=== PATIENT | female | born 1985 | race Caucasian/White ===

== ENCOUNTER 2023-10-27 17:24 | Inpatient (IN) | payer MEDICARE, MEDICAID, SELFPAY ==
--- NOTE | ~2023-10-27 | CT_ITS ---
EXAMINATION: CT head/brain wo IV con CLINICAL INFORMATION: Reason for Exam head injury hx of Jennifer Danlos COMPARISON: None. TECHNIQUE: Contiguous axial imaging was performed from the skull base to vertex without intravenous contrast. Sagittal and coronal reformatted images were obtained. This CT examination was performed using dose optimization techniques as appropriate, variously including the following: * Automated exposure control * Adjustment of mA and/or kV according to patient size (this includes techniques or standardized protocols for targeted exams where dose is matched to indication/reason for exam; i.e. extremities or head) Use of iterative reconstruction technique DLP: 531.94 mGy-cm FINDINGS: No acute osseous or soft tissue abnormality. The mastoids are clear. Layering aerosolized secretions in the left sphenoid sinus. There is no evidence of acute intracranial hemorrhage or territorial infarction. No abnormal mass effect or midline shift is seen. Dent to white matter differentiation is well preserved. No extra-axial fluid collections are identified. No hydrocephalus. No significant volume loss. There is no abnormal attenuation within the brain parenchyma. Enlarged perivascular space in the inferior right basal ganglia. CT/CT head/brain wo IV con IMPRESSION: No acute intracranial abnormality including hemorrhage, mass effect, hydrocephalus, or acute territorial edematous infarction.
[2023-10-27 17:54] VITALS: BP 124/85; BP 142/84; PULSE 119; PULSE 68; RESP 18; TEMP 36.1; O2SAT 100; O2SAT 98; BMI 20.5
--- NOTE | 2023-10-27 18:05 | ED.PSYCH ---
HPI - Psych General Chief Complaint: Psychiatric Symptoms Stated Complaint: crisis Source: patient Mode of arrival: EMS Limitations: no limitations History of Present Illness HPI Narrative: 38 yo female with PMH of osteogenesis imperfecta, Sana Danlos, seizures, has been going through an ativan taper to come off for 3 months but ran out last thursday earlier than she should have. At one point she was up to 5mg a day and was tapered down to 1mg QHS but then was taking more than she should have. She has been c/o feeling off, hit her head during seizure per mom has contusion on head. Was seen at [facility] on no CT head done. She feels SI and depression. Mom feels that the atarax and remeron they put her on is not helping and she is acting off and not herself. MD complaint: feels depressed and anxiety Onset (ago): week(s) (1+) Duration: constant History of same: Yes Relieving factors: none Exacerbating factors: other Context: not taking psychiatric medications and other Associated psychiatric symptoms: depression and suicidal ideation Associated symptoms: headache Treatments prior to arrival: none If self harm: admits thoughts of self harm Related Data Home Medications Medication Instructions Recorded Confirmed albuterol sulfate 90 mcg/actuation 2 puff inhalation Q4H PRN wheezing 10/27/23 10/27/23 aerosol inhaler cyclobenzaprine 10 mg tablet 10 mg PO TID 10/27/23 10/27/23 ibuprofen 800 mg tablet 800 mg PO TID PRN Pain 10/27/23 10/27/23 lorazepam 1 mg tablet 1 mg PO DAILY PRN Anxiety 10/27/23 10/27/23 magnesium oxide 500 mg PO DAILY 10/27/23 10/27/23 mirtazapine 15 mg tablet 15 mg PO BEDTIME 10/27/23 10/27/23 oxycodone 30 mg tablet 30 mg PO QID 10/27/23 10/27/23 oxycodone 30 mg tablet,crush 30 mg PO DAILY 10/27/23 10/27/23 resistant,extended release 12 hr (OxyContin) trazodone 100 mg tablet 200 mg PO BEDTIME PRN insomnia 10/27/23 10/27/23 Allergies Allergy/AdvReac Type Severity Reaction Status Date / Time azithromycin Allergy Itching Verified 10/27/23 18:06 nitrofurantoin Allergy Itching Verified 10/27/23 18:06 [From Macrodantin] Review of Systems Review of Systems: Constitutional : No Fever, No Chills ENT/Mouth : No Ear Pain, No Nasal Congestion, No sore throat Eyes: No Eye Pain, No Swelling, No Redness Cardiovascular : No Chest Pain, No SOB Respiratory : No Cough, No Sputum, No Dyspnea Gastrointestinal : No Nausea, No Vomiting, No Diarrhea, No Hematochezia, No Melena Genitourinary : No Dysuria, No Urinary Frequency, No Hematuria Musculoskeletal : No Myalgias Skin : No Skin Lesions, No rash Neuro : No Weakness, No Numbness, No Paresthesias, No Dizziness, No Headache Psych : positive Anxiety, positive Depression, positive SI no HI Heme/Lymph: No Lymphadenopathy Endocrine : No Polyuria, No Polydipsia All other systems reviewed and are negative [facility] Past Medical History Attestation statement: The following information was validated with the patient. Source: old records reviewed Medical History Anxiety and depression Osteogenesis imperfecta Sana-Danlos disease Social History Social History Alcohol intake: former Smoked in Last 30 Days: Yes Substance Use Type: Marijuana Advance Directives: No Advance Directives Information Provided: No Physical Exam Vital Signs: Vital Signs: Last Vital Signs Temp 98.5 F 10/27/23 20:53 Pulse 63 10/27/23 20:53 Resp 16 10/27/23 20:53 BP 134/83 10/27/23 20:53 Pulse Ox 94 10/27/23 20:53 O2 Del Method Room Air 10/27/23 20:53 BMI result Body Mass Index 20.5 Appearance: Alert. Oriented X3. No acute distress. Anxious Eyes: Pupils equal, round and reactive to light. ENT: Pharynx normal. Contusion to forehead Neck: Normal inspection. Neck supple. CVS: Normal heart rate and rhythm. Pulses normal. Respiratory: No respiratory distress. Breath sounds normal. Abdomen: Soft and nontender. Skin: Skin warm and dry. Normal skin color. Normal skin turgor. Extremities: No lower extremity edema. No calf ttp Neuro: Oriented X 3. No motor deficit. No sensory deficit. CN2-12 intact Course Course Course Narrative: will wait on urine culture given WBC and bacteria but also sig epi cells has no urinary symptoms Reevaluation(s) Reevaluation #1: much improved after PO ativan Medications Administered Discontinued Medications Generic Name Dose Route Start Last Admin Trade Name Leroy PRN Reason Stop Dose Admin Lorazepam 1 mg 10/27/23 18:40 10/27/23 18:59 Lorazepam 1 Mg Tablet PO 10/27/23 18:41 1 mg ONCE ONE Administration Potassium Chloride 40 meq 10/27/23 19:10 10/27/23 19:48 Potassium Chloride Packet 20 Meq Packet PO 10/27/23 19:11 40 meq ONCE ONE Administration Medical Decision Making Medical Decision Making [facility] Narrative: 38 yo female with PMH of osteogenesis imperfecta, Sana Danlos, seizures here with c/o anxiety depression thoughts of SI after coming off of ativan and running out of it on Thursday after using too much. She has none left. She had a seizure on was seen at [facility] has contusion to forehead. At this time will need labs, CT head given sana danlos and headache. PO ativan and refer to CARE team Differential Diagnosis Differential Diagnoses: The differential diagnosis associated with the presentation includes anxiety, depression, head injury Admission/Observation Consideration of admission/observation: Escalation of care including admission/observation considered observation started at 718pm will replete K and recheck in AM Lab Data [facility] Lab Attestation statement: I reviewed the patient's lab results. 10/27/23 19:14 10/27/23 18:36 Labs: Lab Results 10/27/23 10/27/23 10/27/23 Range/Units 18:36 19:07 19:14 WBC 8.9 (4.8-10.8) X10*3/uL RBC 4.35 (4.20-5.50) X10*6/uL Hgb 13.8 (12.0-16.0) g/dl Hct 39.6 (37.0-47.0) % MCV 91.0 (80.0-98.0) fL MCH 31.7 (27.0-33.0) pg MCHC 34.8 (31.0-35.0) g/dl RDW 12.1 (11.0-16.0) % Plt Count 230 (160-400) X10*3/uL MPV 9.6 (9.4-12.3) fL Immature Gran % (Auto) 0.2 (0.0-0.4) % Neut % (Auto) 57.9 (45-73) % Lymph % (Auto) 33.0 (20-40) % Emmet % (Auto) 7.7 (2-11) % Eos % (Auto) 0.6 (0-4) % Baso % (Auto) 0.6 (0-2) % Lymph # (Auto) 3.0 (1.2-4.9) X10*3/uL Emmet # (Auto) 0.7 (0.1-1.2) X10*3/uL Eos # (Auto) 0.1 (0.0-0.4) X10*3/uL Baso # (Auto) 0.1 (0.0-0.2) X10*3/uL Abs Immat Gran (auto) 0.02 (0.00-0.03) X10*3/uL Absolute Neuts (auto) 5.2 (2.0-8.3) x10*3/uL Absolute Nucleated RBC 0.000 (0.0-0.012) X10*3/uL Nucleated RBC % (auto) 0.0 (0.0-0.2) /100WBC Sodium 140 (135-145) mmol/L Potassium 2.9 L* (3.3-5.1) mmol/L Chloride 103 (96-108) mmol/L Carbon Dioxide 28 (22-29) mmol/L Anion Gap 12 (12-20) BUN 9 (9-16) mg/dL Creatinine 0.67 (0.5-1.4) mg/dL Estim Creat Clear Calc 81.8 Estimated GFR > 60 Random Glucose 82 (60-115) mg/dL Calcium 9.6 (8.4-10.2) mg/dL Magnesium 1.9 (1.6-2.6) mg/dL Total Bilirubin 0.4 (0.0-1.0) mg/dL Direct Bilirubin 0.1 (0.0-0.5) mg/dL AST 9 (5-31) U/L ALT 5 (0-31) U/L Alkaline Phosphatase 40 (39-117) U/L Total Protein 6.4 L (6.5-8.0) g/dL Albumin 4.1 (3.5-5.0) g/dL Urine Color Yellow Urine Appearance Turbid Urine pH 6.5 (5.0-9.0) Ur Specific [place] 1.015 (1.005-1.025) Urine Protein Negative (Neg-Trace) mg/dL Urine Glucose (UA) Negative (Negative) mg/dL Urine Ketones 40 (Negative) mg/dL Urine Blood Negative (Negative) Urine Nitrite Negative (Negative) Ur Leukocyte Esterase Small (1+) H (Negative) Urine RBC 0-2 (0-2) /HPF Urine WBC 11-20 H (0-5) /HPF Ur Squamous Epith Cells >20 (0-2) /HPF Urine Bacteria 4+ (None Seen) Hyaline Casts 0-2 (0-2) /LPF Urine Test NEGATIVE (NEGATIVE) Urine Opiates Screen POSITIVE H (Not Detect) Urine Fentanyl Screen POSITIVE H (Not Detect) Ur Barbiturates Screen Not Detected (Not Detect) Ur Phencyclidine Scrn Not Detected (Not Detect) Ur Amphetamines Screen Not Detected (Not Detect) U Benzodiazepines Scrn Not Detected (Not Detect) Urine Cocaine Screen Not Detected (Not Detect) U Marijuana (THC) Screen Not Detected (Not Detect) Ethyl Alcohol < 10 mg/dL Independent Interpretation I performed an independent interpretation of an: CT Scan Radiology Impression Discussion of test interpretation with radiology: I have reviewed the radiologist's reading. Independent Historian Clinical information obtained from an independent historian. History obtained from or confirmed by: Parent Discharge Plan Discharge Clinical Impression: Benzodiazepine dependence, Anxiety Patient Disposition: Still a Patient Prescriptions: No Action cyclobenzaprine 10 mg tablet 10 mg PO TID ibuprofen 800 mg tablet 800 mg PO TID PRN (Reason: Pain) trazodone 100 mg tablet 200 mg PO BEDTIME PRN (Reason: insomnia) magnesium oxide 500 mg magnesium tablet 500 mg PO DAILY mirtazapine 15 mg tablet 15 mg PO BEDTIME oxycodone 30 mg tablet 30 mg PO QID lorazepam 1 mg tablet 1 mg PO DAILY PRN (Reason: Anxiety) albuterol sulfate 90 mcg/actuation HFA aerosol inhaler 2 puff INHALATION Q4H PRN (Reason: wheezing) oxycodone [OxyContin] 30 mg tablet,oral only,ext.rel.12 hr 30 mg PO DAILY Interventions: George-Suicide Risk Severity Scale Last Done: 10/27/23 18:08
--- NOTE | 2023-10-27 18:10 | PC.NURSE ---
Arrived from [facility] in [place], patient reports that last week she overdosed on medications that were prescribed to her (including oxycodone and oxycontin) and reports she had to be narcaned at [facility] and was discharged after x 1 hour. Patient with faded bruise to left side of forehead that she reports was the result of an accidental fall last week. Patient weepy and nervous stating she doesnt want to but is having thought of harming herself by again taking a large amount of pills. Changed into hospital attire and belongings locked in locker # 1. Patient states her mom has her cell phone
[2023-10-27] MEDS: LORazepam 1 MG TABLET PO (18:59)
[2023-10-27 19:09] LABS: Alanine Aminotransferase 5 U/L (0-31); Albumin Level 4.1 g/dL (3.5-5.0); Alkaline Phosphatase 40 U/L (39-117); Anion Gap 12 (12-20); Aspartate Amino Transferase 9 U/L (5-31); Bilirubin Direct 0.1 mg/dL (0.0-0.5); Bilirubin Total 0.4 mg/dL (0.0-1.0); Blood Urea Nitrogen 9 mg/dL (9-16); Calcium 9.6 mg/dL (8.4-10.2); Carbon Dioxide 28 mmol/L (22-29); Chloride 103 mmol/L (96-108); Creatinine Clr Calc Pharmacy 81.8; Estimated Glomerular Filt Rate > 60; Ethanol < 10 mg/dL; Glucose Random 82 mg/dL (60-115); Magnesium 1.9 mg/dL (1.6-2.6); Potassium 2.9 mmol/L (3.3-5.1); Sodium 140 mmol/L (135-145); Total Protein 6.4 g/dL (6.5-8.0)
[2023-10-27 19:19] LABS: MANUAL DIFF FLAG NO
[2023-10-27 19:20] LABS: Basophils Absolute Auto 0.1 X10*3/uL (0.0-0.2); Basophils Percent Auto 0.6 % (0-2); Eosinophils Absolute Auto 0.1 X10*3/uL (0.0-0.4); Eosinophils Percent Auto 0.6 % (0-4); Hematocrit 39.6 % (37.0-47.0); Hemoglobin 13.8 g/dl (12.0-16.0); Imm Gran Abs Auto 0.02 X10*3/uL (0.00-0.03); Imm Gran Pct Auto 0.2 % (0.0-0.4); Mean Corpuscular HGB Conc 34.8 g/dl (31.0-35.0); Mean Corpuscular Hemoglobin 31.7 pg (27.0-33.0); Mean Platelet Volume 9.6 fL (9.4-12.3); Monocytes Absolute Auto 0.7 X10*3/uL (0.1-1.2); Monocytes Percent Auto 7.7 % (2-11); Neutrophils Absolute Auto 5.2 x10*3/uL (2.0-8.3); Neutrophils Percent Auto 57.9 % (45-73); Platelet Count 230 X10*3/uL (160-400); Red Blood Count 4.35 X10*6/uL (4.20-5.50); Red Cell Distribution Width 12.1 % (11.0-16.0); White Blood Count 8.9 X10*3/uL (4.8-10.8)
[2023-10-27 19:21] LABS: Appearance Urine Turbid; Color Urine Yellow; Glucose Urine UA Negative (Negative); Leukocyte Esterase Urine Small (1+) (Negative); Nitrite Urine Negative (Negative); PH 6.5 (5.0-9.0); Specific Gravity - Urine 1.015 (1.005-1.025); UMIC TRIGGER UACC YES; Urine Blood Negative (Negative); Urine Ketones 40 mg/dL (Negative); Urine Protein Negative (Neg-Trace)
[2023-10-27 19:22] LABS: UPreg QC Valid YES; Urine Pregnancy NEGATIVE (NEGATIVE)
[2023-10-27 19:23] LABS: Bacteria Urine 4+ (None Seen); Hyaline Casts Urine 0-2 /LPF (0-2); RBC Urine 0-2 /HPF (0-2); Squamous Epithelial Cell Urine >20 /HPF (0-2); UACC Culture Trigger YES
[2023-10-27 19:28] LABS: Amphetamine Screen Urine Not Detected (Not Detect); Barbiturates, Urine Not Detected (Not Detect); Benzodiazepines Screen Urine Not Detected (Not Detect); Cannabinoid Screen Urine Not Detected (Not Detect); Cocaine Screen Urine Not Detected (Not Detect); Fentanyl, urine POSITIVE (Not Detect); Opiate Screen Urine POSITIVE (Not Detect); Phencyclidine Screen Urine Not Detected (Not Detect)
[2023-10-27] MEDS: Potassium Chloride Packet 20 MEQ PACKET 40 MEQ PO (19:48)
[2023-10-27 20:53] VITALS: BP 134/83; PULSE 63; RESP 16; TEMP 36.9; O2SAT 94
[2023-10-27] MEDS: oxyCODONE HCl Immed Release 15 MG TABLET 30 MG PO (21:33)
[2023-10-27] MEDS: Cyclobenzaprine HCl 10 MG TABLET PO (21:33)
--- NOTE | 2023-10-28 | ECG_ITS ---
Test Reason : QT INTERVAL Blood Pressure : / mmHG Vent. Rate : 070 BPM Atrial Rate : 070 BPM P-R Int : 118 ms QRS Dur : 090 ms QT Int : 430 ms P-R-T Axes : 072 039 017 degrees QTc Int : 464 ms Sinus rhythm with marked sinus arrhythmia Minimal voltage criteria for LVH, may be normal variant ( [employer] product ) Nonspecific ST abnormality Abnormal ECG No previous ECGs available Referred By: Emy Davis Electronically Signed By:Rowdy Hall
[2023-10-28] MEDS: oxyCODONE HCl ER 10 MG TAB.ER.12H 30 MG PO ×2 (00:35→20:25)
[2023-10-28 06:23] VITALS: BP 122/74; PULSE 74; RESP 16; TEMP 36.8; O2SAT 95
[2023-10-28 06:32] LABS: Potassium 3.2 mmol/L (3.3-5.1)
[2023-10-28] MEDS: Magnesium Oxide 400 MG TABLET 500 MG PO (08:22)
[2023-10-28] MEDS: oxyCODONE HCl Immed Release 15 MG TABLET 30 MG PO ×4 (08:22→20:23)
[2023-10-28] MEDS: Cyclobenzaprine HCl 10 MG TABLET PO ×3 (08:22→20:23)
[2023-10-28 08:56] LABS: COVID-19 Test Negative (Negative); IDNOW Serial# 08D9AD1C
--- NOTE | 2023-10-28 09:14 | PC.NURSE ---
Assumed care of patient at 0700, patient appears to be resting comfortably on bed in BH 1, offers no complaints to this RN. Pt took all morning medications willingly without issue. Pt offers no concerns or complaints at this time. Continue plan of care for inpt bedsearch
[2023-10-28] MEDS: LORazepam 1 MG TABLET PO (11:18)
[2023-10-28] MEDS: hydrOXYzine HCL 25 MG TABLET PO (15:24)
[2023-10-28 18:00] VITALS: BP 123/82; PULSE 85; RESP 16; TEMP 36.4; O2SAT 96
--- NOTE | 2023-10-28 18:17 | PC.ADMIT ---
Pt arrived to the unit from [facility] [place] [facility] at 1640 via wheelchair. Pt placed on 15 minute safety checks. CV was signed prior to arrival. Skin Check/Printing Supervisor completed. Pt oriented to the unit. Legals signed. Pt states she came into our ED due to not feeling well from her previous suicide attempt last week where she overdosed on her home medications which lead her to be narcaned at [facility]. Pt states she was then discharged home from [place] where she ended up having a seizure and hitting her head. Per Pt, Pt was currently titrating off her Ativan which she ran out of early and ended up not getting re-filled. Pt does have a bruise to Right forehead and bilateral eyes from her fall last week at home. Pt is a high fall risk at this time. Pt reports feeling like she was burning & being electrocuted when she drank water and laid down. Pt declined flu vaccination. Pt is a current everyday smoker. 2 PPD. Pt declined Nicotine gum/patches at this time. Pt appears cachectic. Pt does have a history of eating disorders but states she is recovered , despite her current habitus. Nutrition consult placed. Treatment plan & safety tool completed.
[2023-10-28] MEDS: Mirtazapine 15 MG TABLET PO (20:23)
[2023-10-28] MEDS: traZODone HCL 50 MG TABLET PO (20:23)
[2023-10-29] MEDS: Ibuprofen 800 MG TABLET PO (02:13)
[2023-10-29] MEDS: Acetaminophen 325 MG TABLET 650 MG PO ×2 (02:14→14:20)
[2023-10-29 06:00] VITALS: BP 99/64; PULSE 81; RESP 18; TEMP 36.4; O2SAT 97
[2023-10-29] MEDS: oxyCODONE HCl Immed Release 15 MG TABLET 30 MG PO ×3 (08:13→17:14)
[2023-10-29] MEDS: Cyclobenzaprine HCl 10 MG TABLET PO ×2 (08:13→19:58)
--- NOTE | 2023-10-29 11:32 | MHC.CLN ---
RE; CONSULT HT 60 WT 105# IBW 100#=/-10% BMI 20-WNL PT IS 105% IBW INDICATES ADEQUATE WT FOR HT NO PREVIOUS WT HX AVAILABLE NOTED PT WITH HX EATING D/O PER ADMISSION NURSING NOTE PT REPORTED SHE IS RECOVERED FROM EATING D/O REVIEWED LABS NOTED LOW K+ OTHERWISE UNREMARKABLE DIET RX: REGULAR-APPROPRIATE RECOMMEND STRICT PO INTAKE RECORDS IF PO INTAKE POOR X3 DAYS, RECOMMEND ADDING NUTRITION SUPPLEMENT
--- NOTE | 2023-10-29 12:58 | P.HPPS_ITS ---
HPI Date of Service: 10/29/23 Chief Complaint: SI Sources of Information: patient interviewed, chart reviewed and crisis/core team assessment reviewed HPI Subjective Notes: Castillo Warning Healthcare Proxy: No Guardianship: No Medical Problems Affecting Mental Status: Yes (chronic pain) Narrative: Joselin is a 38-year-old single female with PMH of Anxiety, depressionb, Anorexia, and osteogenesis imperfecta and Jennifer Danlos who was admitted to on a conditional voluntary after she was medically cleared in the emergency room at [facility]. Patient was evaluated by MARILUN on October 26 after her brother called crisis because pt was not making sense and presenting confused. crisis evaluation notes the patient was confused and having auditory and visual hallucinations. The patient had been going through an Ativan taper over 3 months but ran out of Ativan last Thursday earlier than she should have. Her mother reports that she observed seen a seizure and that the patient hit her head she was seen at [facility] on October [address] but [address] no head CT head. CT scan done in [facility] Emergency room on 10 26 showed no acute intracranial abnormality including hemorrhage, mass effect, hydrocephalus, or acute territorial edematous infarction. The patient tells me today that she has been depressed and anxious for many years; she has panic attacks. She reports that prior to admission she had overdosed on cyclobenzaprine, Remeron Gas-X pills and antacid. She states that she was not trying to kill herself she was just trying to get some sleep and reduce her anxiety. She states there is constant noise in the house where she lives with her brother and mother. She also tells me that she has the sensation of her vagina burning she says it has been hurting her since October 22 she thought it was a yeast infection so she used Monistat but it caused her to feel worse. She states that she has been on pain medication off and on since the age of 14 due to multiple surgeries because of osteogenesis imperfecta, Jennifer Danlos. Patient tells me that she has a history of anorexia and only eats 1 meal a day at dinner: she does snack during the day and she drinks water and coffee. She states that she has been disabled since 2006 and unable to work she spends time with her mother playing games on her phone she is socially isolated she denies using any street drugs she states ?I always pass my drug test and pill count? she reports she was feeling depressed because she never gets out of the house- she is stuck in her room and she is in pain every day. she reports she has not slept for 3 days prior to admission mostly due to the anxiety. Patient states she has a psychiatric brand sales consultant at [facility] named Dr. Buchanan and that he consults to her primary care physician who prescribes medication. The patient does not have a therapist currently. Past Psychiatric History: One IPLOC at [place] primarily for eating disorder at age 18. Patient reports multiple hospitalizations for severe low weight and protein in her urine but these hospitalizations were on medical units. In 2021 the patient was in [facility] Emergency room and seen by [facility] and [facility] after she was found wandering the streets she was expressing paranoid ideation stating that her family was trying to poison her she also reported at that time hearing evil voices that are head she reports she was talking to Kade and making statements I am and I am dying they are trying to kill me Medical Evaluation Reviewed: Hospitalist Mercedez Pending [facility] Medical History (Updated 10/29/23 @ 14:14 by Barbi Rivera APRN) Anxiety and depression Osteogenesis imperfecta Jennifer-Danlos disease Narrative: Patient reports multiple surgeries starting at the age of 14 when she needed to have her bones in her legs broken to repair due to repetitive dislocation she reports she had 5 surgeries due to bladder and uterus prolapse and complications thereof in 2019 she states that she broke her radius and ulnar and had to have surgery because it did not heal correctly. When she was 19 years old she followed the ice and broke her tailbone which has led to chronic pain she has been on opiates off and on since the age of 14 Family History: Patient reports she grew up in [facility] and live with her mother and father and 2 brothers her father of cancer in 2021 she states her older brother has anxiety and her mother has depression Social History: Patient reports she did have friends growing up and she was straight a student until she left school at the age of 16 due to anorexia she had to drop out of school due to multiple admissions at [facility] she is socially isolated currently Substance History: Patient denies alcohol use marijuana use she denies any street drug use Trauma History: Multiple surgeries Diagnostics Vital Signs (24Hr): Vital Signs - 24 hr 10/28/23 18:00 10/29/23 06:00 Temperature 97.6 F 97.5 F Pulse Rate 85 81 Respiratory Rate 16 18 Blood Pressure 123/82 99/64 Pulse Oximetry 96 97 Oxygen Delivery Method Room Air Room Air BMI result Body Mass Index 20.5 Labs 10/27/23 19:14 10/28/23 06:04 Labs: Laboratory Results - last 48 hr 10/27/23 10/27/23 10/27/23 18:36 19:07 19:14 WBC 8.9 RBC 4.35 Hgb 13.8 Hct 39.6 MCV 91.0 MCH 31.7 MCHC 34.8 RDW 12.1 Plt Count 230 MPV 9.6 Immature Gran % (Auto) 0.2 Neut % (Auto) 57.9 Lymph % (Auto) 33.0 [place] % (Auto) 7.7 Eos % (Auto) 0.6 Baso % (Auto) 0.6 Lymph # (Auto) 3.0 [place] # (Auto) 0.7 Eos # (Auto) 0.1 Baso # (Auto) 0.1 Abs Immat Gran (auto) 0.02 Absolute Neuts (auto) 5.2 Absolute Nucleated RBC 0.000 Nucleated RBC % (auto) 0.0 Sodium 140 Potassium 2.9 L* Chloride 103 Carbon Dioxide 28 Anion Gap 12 BUN 9 Creatinine 0.67 Estim Creat Clear Calc 81.8 Estimated GFR > 60 Random Glucose 82 Calcium 9.6 Magnesium 1.9 Total Bilirubin 0.4 Direct Bilirubin 0.1 AST 9 ALT 5 Alkaline Phosphatase 40 Total Protein 6.4 L Albumin 4.1 Urine Color Yellow Urine Appearance Turbid Urine pH 6.5 Ur Specific [place] 1.015 Urine Protein Negative Urine Glucose (UA) Negative Urine Ketones 40 Urine Blood Negative Urine Nitrite Negative Ur Leukocyte Esterase Small (1+) H Urine RBC 0-2 Urine WBC 11-20 H Ur Squamous Epith Cells >20 Urine Bacteria 4+ Hyaline Casts 0-2 Urine Test NEGATIVE Urine Opiates Screen POSITIVE H Urine Fentanyl Screen POSITIVE H Ur Barbiturates Screen Not Detected Ur Phencyclidine Scrn Not Detected Ur Amphetamines Screen Not Detected U Benzodiazepines Scrn Not Detected Urine Cocaine Screen Not Detected U Marijuana (THC) Screen Not Detected Ethyl Alcohol < 10 COVID-19 ([facility]) COVID-19 Clin Com 10/28/23 10/28/23 06:04 08:39 WBC RBC Hgb Hct MCV MCH MCHC RDW Plt Count MPV Immature Gran % (Auto) Neut % (Auto) Lymph % (Auto) [place] % (Auto) Eos % (Auto) Baso % (Auto) Lymph # (Auto) [place] # (Auto) Eos # (Auto) Baso # (Auto) Abs Immat Gran (auto) Absolute Neuts (auto) Absolute Nucleated RBC Nucleated RBC % (auto) Sodium Potassium 3.2 L Chloride Carbon Dioxide Anion Gap BUN Creatinine Estim Creat Clear Calc Estimated GFR Random Glucose Calcium Magnesium Total Bilirubin Direct Bilirubin AST ALT Alkaline Phosphatase Total Protein Albumin Urine Color Urine Appearance Urine pH Ur Specific [place] Urine Protein Urine Glucose (UA) Urine Ketones Urine Blood Urine Nitrite Ur Leukocyte Esterase Urine RBC Urine WBC Ur Squamous Epith Cells Urine Bacteria Hyaline Casts Urine Test Urine Opiates Screen Urine Fentanyl Screen Ur Barbiturates Screen Ur Phencyclidine Scrn Ur Amphetamines Screen U Benzodiazepines Scrn Urine Cocaine Screen U Marijuana (THC) Screen Ethyl Alcohol COVID-19 ([facility]) Negative COVID-19 Clin Com See Note Imaging Radiology Impressions: ITS Impressions Head CT 10/27/23 20:23 IMPRESSION: No acute intracranial abnormality including hemorrhage, mass effect, hydrocephalus, or acute territorial edematous infarction. Meds/Allergies Meds Home Medications Medication Instructions Recorded Confirmed Type albuterol sulfate 90 mcg/actuation 2 puff inhalation Q4H PRN wheezing 10/27/23 10/27/23 History aerosol inhaler cyclobenzaprine 10 mg tablet 10 mg PO TID 10/27/23 10/27/23 History ibuprofen 800 mg tablet 800 mg PO TID PRN Pain 10/27/23 10/27/23 History lorazepam 1 mg tablet 1 mg PO DAILY PRN Anxiety 10/27/23 10/27/23 History magnesium oxide 500 mg PO DAILY 10/27/23 10/27/23 History mirtazapine 15 mg tablet 15 mg PO BEDTIME 10/27/23 10/27/23 History oxycodone 30 mg tablet 30 mg PO QID 10/27/23 10/27/23 History oxycodone 30 mg tablet,crush 30 mg PO DAILY 10/27/23 10/27/23 History resistant,extended release 12 hr (OxyContin) trazodone 100 mg tablet 200 mg PO BEDTIME PRN insomnia 10/27/23 10/27/23 History Allergies Allergies Allergy/AdvReac Type Severity Reaction Status Date / Time azithromycin Allergy Itching Verified 10/27/23 18:06 nitrofurantoin Allergy Itching Verified 10/27/23 18:06 [From Macrodantin] Mental Status Exam Mental Status Exam Patient Appearance: Disheveled and Unkempt Patient Orientation: Person, Place, Time and Situation Level of Consciousness: Awake Patient Behavior: Guarded, Avoidant and Good Eye Contact Mood Description: Depressed and Anxious Affect Description: Blunted Patient Cognition Impaired: Yes Ability to Follow Directions: Fair Speech Pattern: Clear Hallucinations: None (denies) Delusions: Not Present Thought Process: Illogical Thought Content: positive for Loose Associations Judgement: Poor Assessment & Plan Assessment & Plan (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, unspecified (2) Osteogenesis imperfecta: Status: Acute Code(s): Q78.0 - Osteogenesis imperfecta (3) Anxiety: Status: Acute Code(s): F41.9 - Anxiety disorder, unspecified (4) Unspecified psychosis: Status: Acute Code(s): F29 - Unspecified psychosis not due to a substance or known physiological condition Plan 38-year-old single female with PMH of Anxiety, depression, Anorexia,psychosis including delusions and hallucinations, and osteogenesis imperfecta and Jennifer Danlos who was admitted to on a conditional voluntary after she was medically cleared in the emergency room at [facility]. Rule out medication abuse, anorexia Plan: CV 15 min checks continue home meds collateral contact hospitalist consult re: c/o vaginal burning and pain UA Patient educated on: diagnosis, medication risk/benefits and therapeutic strategies Informed Consent: does not understand Reason for continued inpatient stay Substantial Risk for: harm to self, inability to function and rapid decompensation Statement Statement: I have reviewed the history and physical and performed a pertinent examination on my patient. No changes have occurred unless specified. If the History and Physical was not performed prior to admission, the Hospitalist's service will be consulted for completing the admission physical. Time Spent With Patient Time: Total time managing care of this patient today __60__ minutes.
[2023-10-29 13:22] LABS: Appearance Urine Cloudy; Color Urine Yellow; Glucose Urine UA Negative (Negative); Leukocyte Esterase Urine Small (1+) (Negative); Nitrite Urine Negative (Negative); Specific Gravity - Urine 1.025 (1.005-1.025); UMIC TRIGGER UACC YES; Urine Blood Negative (Negative); Urine Ketones Negative (Negative); Urine Protein Negative (Neg-Trace)
[2023-10-29 13:59] LABS: Bacteria Urine 4+ (None Seen); Hyaline Casts Urine 0-2 /LPF (0-2); RBC Urine 0-2 /HPF (0-2); Squamous Epithelial Cell Urine >20 /HPF (0-2); UACC Culture Trigger YES; WBC Urine 21-50 /HPF (0-5)
[2023-10-29] MEDS: hydrOXYzine HCL 25 MG TABLET PO (14:20)
[2023-10-29 18:00] VITALS: BP 113/86; PULSE 67; RESP 16; TEMP 36.7; O2SAT 97
[2023-10-29] MEDS: traZODone HCL 100 MG TABLET PO (19:59)
[2023-10-29] MEDS: oxyCODONE HCl ER 10 MG TAB.ER.12H 30 MG PO (19:59)
--- NOTE | 2023-10-29 21:40 | PM.EVENT ---
Event Note Date of Service: 10/29/23 Event Note: Hospitalist consult for burning sensation in stomach, and on vulva when urinating. Patient unavailable for interview and examination. Review of chart shows that patient had a UA during initial presentation to the ED on 10/27/2023 which was contaminated: negative for nitrites, but showed small amount of leukocyte esterase, wbc's 11-20, >20 squamous epithelial cells, and 4+ bacteria. Repeat UA from 10/29/2023 also likely negative for UTI and contaminated: Showed small amount of leukocyte esterase, WBC 20-50, >20 squamous epithelial cells, and 4+ bacteria. Will follow cultures, but likely to show contamination. No indication to treat for UTI at this time. If symptoms persist can test for candidiasis, BV, and STIs if warranted. Time Spent With Patient Time: Total time managing care of this patient today ____ minutes.
[2023-10-30] MEDS: oxyCODONE HCl Immed Release 15 MG TABLET 30 MG PO ×5 (02:34→19:55)
[2023-10-30] MEDS: Acetaminophen 325 MG TABLET 650 MG PO (05:59)
[2023-10-30] MEDS: Ibuprofen 800 MG TABLET PO (06:01)
[2023-10-30 08:09] VITALS: BP 136/84; PULSE 69; RESP 16; TEMP 36.2; O2SAT 99
[2023-10-30] MEDS: LORazepam 1 MG TABLET PO (08:56)
--- NOTE | 2023-10-30 09:54 | HO.PSYCHPN ---
Subjective Subjective Date of Service: 10/30/23 Reason For Visit: SI Subjective Notes: Conditional Voluntary Healthcare Proxy: No Guardianship: No Medical Problems Affecting Mental Status: Yes Interim History: pt is depressed, fatigued, in bed, reports pain in hips and back. reluctant to get out of bed to get pain medicaitons; talked to her about how important it is to keep moving despite discomfort- she needs to do some movement; she denies SI or Hi; does not want any other medications for depression; agrees to allowing me to call Dr herrera to collaborate. Pt is focused on going home. Medication Compliance: Yes Side effects from medications: No Attending Groups: No Review of Systems Acute medical concerns: Yes pain Medical Review of Systems: unchanged Review of Systems Review of Systems Constitutional : No Fever, No Chills ENT/Mouth : No Ear Pain, No Nasal Congestion, No sore throat Eyes: No Eye Pain, No Swelling, No Redness Cardiovascular : No Chest Pain, No SOB Respiratory : No Cough, No Sputum, No Dyspnea Gastrointestinal : No Nausea, No Vomiting, No Diarrhea, No Hematochezia, No Melena Genitourinary : No Dysuria, No Urinary Frequency, No Hematuria Musculoskeletal : No Myalgias Skin : No Skin Lesions, No rash Neuro : No Weakness, No Numbness, No Paresthesias, No Dizziness, No Headache Psych : positive Anxiety, positive Depression, positive SI no HI Heme/Lymph: No Lymphadenopathy Endocrine : No Polyuria, No Polydipsia All other systems reviewed and are negative Constitutional: Reports anorexia, Reports body ache(s) and Reports poor appetite Musculoskeletal: Reports myalgias Psychiatric: Reports as per HPI Mental Status Exam Mental Status Exam Patient Appearance: Disheveled and Unkempt Patient Orientation: Person, Place, Time and Situation Level of Consciousness: Awake Patient Behavior: Guarded, Avoidant and Good Eye Contact Mood Description: Depressed and Anxious Affect Description: Blunted Patient Cognition Impaired: Yes Ability to Follow Directions: Fair Speech Pattern: Clear Memory Description: Episodic Impaired Hallucinations: None Delusions: Not Present Thought Process: Goal Oriented Thought Content: positive for Goal Oriented Judgement: Poor Diagnostics Vital Signs (24Hr): Vital Signs - 24 hr 10/29/23 18:00 10/30/23 08:09 Temperature 98.1 F 97.2 F Pulse Rate 67 69 Respiratory Rate 16 16 Blood Pressure 113/86 136/84 Pulse Oximetry 97 99 Oxygen Delivery Method Room Air BMI result Body Mass Index 20.5 Labs 10/27/23 19:14 10/28/23 06:04 Labs: Laboratory Results - last 48 hr 10/29/23 13:09 Urine Color Yellow Urine Appearance Cloudy Urine pH 6.0 Ur Specific [place] 1.025 Urine Protein Negative Urine Glucose (UA) Negative Urine Ketones Negative Urine Blood Negative Urine Nitrite Negative Ur Leukocyte Esterase Small (1+) H Urine RBC 0-2 Urine WBC 21-50 H Ur Squamous Epith Cells >20 Urine Bacteria 4+ Hyaline Casts 0-2 Imaging Radiology Impressions: ITS Impressions Head CT 10/27/23 20:23 IMPRESSION: No acute intracranial abnormality including hemorrhage, mass effect, hydrocephalus, or acute territorial edematous infarction. Medications Medications Current Medications Acetaminophen (Acetaminophen 325 Mg Tablet) 650 mg PO Q6H PRN PRN Reason: Headache/Pain Mild Scale (1-3) Last Admin: 10/30/23 05:59 Dose: 650 mg Al Hydroxide/Mg Hydroxide (Magnesium Hydrox/Alum Hydrox 30 Ml Oral.Susp) 30 ml PO Q6H PRN PRN Reason: Heartburn/Nausea Albuterol Sulfate (Albuterol Sulfate 90 Mcg 8 Gm Inhaler) 2 puff INHALE Q4H PRN PRN Reason: wheezing Cyclobenzaprine HCl (Cyclobenzaprine Hcl 10 Mg Tablet) 10 mg PO TID [facility] Last Admin: 10/30/23 09:33 Dose: Not Given Hydroxyzine HCl (Hydroxyzine Hcl 25 Mg Tablet) 25 mg PO Q6H PRN PRN Reason: Anxiety Last Admin: 10/29/23 14:20 Dose: 25 mg Ibuprofen (Ibuprofen 800 Mg Tablet) 800 mg PO TID PRN PRN Reason: Pain, Mild (Pain Scale 1-3) Last Admin: 10/30/23 06:01 Dose: 800 mg Lorazepam (Lorazepam 1 Mg Tablet) 1 mg PO DAILY PRN PRN Reason: Anxiety Last Admin: 10/30/23 08:56 Dose: 1 mg Magnesium Hydroxide (Milk Of Magnesia 30 Ml Oral.Susp) 30 ml PO DAILY PRN PRN Reason: Constipation Magnesium Oxide (Magnesium Oxide 400 Mg Tablet) 500 mg PO DAILY [facility] Last Admin: 10/30/23 09:33 Dose: Not Given Mirtazapine (Mirtazapine 15 Mg Tablet) 15 mg PO BEDTIME [facility] Last Admin: 10/29/23 22:11 Dose: Not Given Oxycodone HCl (Oxycodone Hcl Immed Release 15 Mg Tablet) 30 mg PO QID [facility] Last Admin: 10/30/23 07:20 Dose: 30 mg Oxycodone HCl (Oxycodone Hcl Er 10 Mg Tab.Er.12h) 30 mg PO BEDTIME [facility] Last Admin: 10/29/23 19:59 Dose: 30 mg Trazodone HCl (Trazodone Hcl 50 Mg Tablet) 50 mg PO BEDTIME PRN PRN Reason: Insomnia Last Admin: 10/28/23 20:23 Dose: 50 mg Trazodone HCl (Trazodone Hcl 100 Mg Tablet) 100 mg PO BEDTIME [facility] Last Admin: 10/29/23 19:59 Dose: 100 mg Allergies Allergies Allergy/AdvReac Type Severity Reaction Status Date / Time azithromycin Allergy Itching Verified 10/27/23 18:06 nitrofurantoin Allergy Itching Verified 10/27/23 18:06 [From Macrodantin] Assessment & Plan Assessment & Plan (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, unspecified (2) Osteogenesis imperfecta: Status: Acute Code(s): Q78.0 - Osteogenesis imperfecta (3) Anxiety: Status: Acute Code(s): F41.9 - Anxiety disorder, unspecified (4) Unspecified psychosis: Status: Acute Code(s): F29 - Unspecified psychosis not due to a substance or known physiological condition Plan 38-year-old single female with PMH of Anxiety, depression, Anorexia,psychosis including delusions and hallucinations, and osteogenesis imperfecta and Jennifer Danlos who was admitted to on a conditional voluntary after she was medically cleared in the emergency room at [facility]. Rule out medication abuse, anorexia Plan: CV 15 min checks continue home meds collateral contact hospitalist consult re: c/o vaginal burning and pain UA 10/30/23 consult with OBGYN re vaginal discomfort repeat UA lidocaine cream prn for pain t/c to dr herrera and await return call continue to encourage antidepressant Patient educated on: diagnosis, medication risk/benefits, therapeutic strategies and medical condition Informed Consent: understands and further education needed Reason for continued inpatient stay Substantial Risk for: harm to self, inability to function, rapid decompensation and med/psych decompensation Time Spent With Patient Time: Total time managing care of this patient today ___30_ minutes.
[2023-10-30 19:45] VITALS: BP 102/64; PULSE 92; RESP 18; TEMP 36.6; O2SAT 98
[2023-10-30] MEDS: Cyclobenzaprine HCl 10 MG TABLET PO (19:54)
[2023-10-30] MEDS: traZODone HCL 100 MG TABLET PO (19:54)
[2023-10-30] MEDS: oxyCODONE HCl ER 10 MG TAB.ER.12H 30 MG PO (19:55)
[2023-10-30] MEDS: hydrOXYzine HCL 25 MG TABLET PO (22:52)
[2023-10-31 08:20] VITALS: BP 139/90; PULSE 80; RESP 16; TEMP 36.1; O2SAT 97
[2023-10-31] MEDS: oxyCODONE HCl Immed Release 15 MG TABLET 30 MG PO ×4 (08:41→20:04)
[2023-10-31] MEDS: LORazepam 1 MG TABLET PO (08:44)
--- NOTE | 2023-10-31 10:34 | HO.PSYCHPN ---
Subjective Subjective Date of Service: 10/31/23 Reason For Visit: SI Interim History: Met with patient; discussed with team; greeting card writer reviewed chart Patient reports that she is overall doing well and says her mood is good. She denies any SI or AVH and is very much hoping to discharge early next week. She initially said it was hard to understand greeting card writer but said that cleared up; could not explain what the challenging component was other than to say she had no problems understanding now. No other complaints and no requests. Mental Status Exam Mental Status Exam Patient Appearance: Disheveled and Unkempt Patient Orientation: Person, Place, Time and Situation Level of Consciousness: Awake Patient Behavior: Guarded, Avoidant and Good Eye Contact Mood Description: Depressed and Anxious Affect Description: Blunted Patient Cognition Impaired: Yes Ability to Follow Directions: Fair Speech Pattern: Clear Memory Description: Episodic Impaired Hallucinations: None Delusions: Not Present Thought Process: Goal Oriented Thought Content: positive for Goal Oriented Judgement: Poor Diagnostics Vital Signs (24Hr): Vital Signs - 24 hr 10/30/23 19:45 10/31/23 08:20 Temperature 97.8 F 97 F Pulse Rate 92 80 Respiratory Rate 18 16 Blood Pressure 102/64 139/90 H Pulse Oximetry 98 97 Oxygen Delivery Method Room Air BMI result Body Mass Index 20.5 Labs 10/27/23 19:14 10/28/23 06:04 Labs: Laboratory Results - last 48 hr 10/29/23 13:09 Urine Color Yellow Urine Appearance Cloudy Urine pH 6.0 Ur Specific [place] 1.025 Urine Protein Negative Urine Glucose (UA) Negative Urine Ketones Negative Urine Blood Negative Urine Nitrite Negative Ur Leukocyte Esterase Small (1+) H Urine RBC 0-2 Urine WBC 21-50 H Ur Squamous Epith Cells >20 Urine Bacteria 4+ Hyaline Casts 0-2 Imaging Radiology Impressions: ITS Impressions Head CT 10/27/23 20:23 IMPRESSION: No acute intracranial abnormality including hemorrhage, mass effect, hydrocephalus, or acute territorial edematous infarction. Medications Medications Current Medications Acetaminophen (Acetaminophen 325 Mg Tablet) 650 mg PO Q6H PRN PRN Reason: Headache/Pain Mild Scale (1-3) Last Admin: 10/30/23 05:59 Dose: 650 mg Al Hydroxide/Mg Hydroxide (Magnesium Hydrox/Alum Hydrox 30 Ml Oral.Susp) 30 ml PO Q6H PRN PRN Reason: Heartburn/Nausea Albuterol Sulfate (Albuterol Sulfate 90 Mcg 8 Gm Inhaler) 2 puff INHALE Q4H PRN PRN Reason: wheezing Cyclobenzaprine HCl (Cyclobenzaprine Hcl 10 Mg Tablet) 10 mg PO TID [facility] Last Admin: 10/31/23 08:49 Dose: Not Given Hydroxyzine HCl (Hydroxyzine Hcl 25 Mg Tablet) 25 mg PO Q6H PRN PRN Reason: Anxiety Last Admin: 10/30/23 22:52 Dose: 25 mg Ibuprofen (Ibuprofen 800 Mg Tablet) 800 mg PO TID PRN PRN Reason: Pain, Mild (Pain Scale 1-3) Last Admin: 10/30/23 06:01 Dose: 800 mg Lidocaine HCl (Lidocaine 4 % Cream Kit) 1 appl TOPICAL ONCE PRN; Protocol PRN Reason: Pain, Moderate(Pain Scale 4-6) Lorazepam (Lorazepam 1 Mg Tablet) 1 mg PO DAILY PRN PRN Reason: Anxiety Last Admin: 10/31/23 08:44 Dose: 1 mg Magnesium Hydroxide (Milk Of Magnesia 30 Ml Oral.Susp) 30 ml PO DAILY PRN PRN Reason: Constipation Magnesium Oxide (Magnesium Oxide 400 Mg Tablet) 500 mg PO DAILY [facility] Last Admin: 10/31/23 08:49 Dose: Not Given Mirtazapine (Mirtazapine 15 Mg Tablet) 15 mg PO BEDTIME [facility] Last Admin: 10/30/23 19:56 Dose: Not Given Oxycodone HCl (Oxycodone Hcl Immed Release 15 Mg Tablet) 30 mg PO QID [facility] Last Admin: 10/31/23 08:41 Dose: 30 mg Oxycodone HCl (Oxycodone Hcl Er 10 Mg Tab.Er.12h) 30 mg PO BEDTIME [facility] Last Admin: 10/30/23 19:55 Dose: 30 mg Trazodone HCl (Trazodone Hcl 50 Mg Tablet) 50 mg PO BEDTIME PRN PRN Reason: Insomnia Last Admin: 10/28/23 20:23 Dose: 50 mg Trazodone HCl (Trazodone Hcl 100 Mg Tablet) 100 mg PO BEDTIME [facility] Last Admin: 10/30/23 19:54 Dose: 100 mg Allergies Allergies Allergy/AdvReac Type Severity Reaction Status Date / Time azithromycin Allergy Itching Verified 10/27/23 18:06 nitrofurantoin Allergy Itching Verified 10/27/23 18:06 [From Macrodantin] Assessment & Plan Assessment & Plan (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, unspecified (2) Osteogenesis imperfecta: Status: Acute Code(s): Q78.0 - Osteogenesis imperfecta (3) Anxiety: Status: Acute Code(s): F41.9 - Anxiety disorder, unspecified (4) Unspecified psychosis: Status: Acute Code(s): F29 - Unspecified psychosis not due to a substance or known physiological condition Plan 38-year-old single female with PMH of Anxiety, depression, Anorexia,psychosis including delusions and hallucinations, and osteogenesis imperfecta and Jennifer Danlos who was admitted to on a conditional voluntary after she was medically cleared in the emergency room at [facility]. Rule out medication abuse, anorexia Plan: 3 day 15 min checks continue home meds collateral contact hospitalist consult re: c/o vaginal burning and pain UA Hospital course: 10/30/23 consult with OBGYN re vaginal discomfort repeat UA lidocaine cream prn for pain t/c to dr herrera and await return call continue to encourage antidepressant 10/30 patient denies psych symptoms; very much looking forward to discharge early next week. Remains isolative but not uncooperative Patient educated on: diagnosis and medication risk/benefits Informed Consent: understands and further education needed Reason for continued inpatient stay Substantial Risk for: med/psych decompensation Time Spent With Patient Time: Total time managing care of this patient today ____ minutes.
[2023-10-31] MEDS: Ibuprofen 800 MG TABLET PO (15:46)
[2023-10-31] MEDS: hydrOXYzine HCL 25 MG TABLET PO (15:49)
[2023-10-31 17:06] VITALS: BP 101/76; PULSE 66; RESP 16; TEMP 36.5; O2SAT 99
[2023-10-31] MEDS: traZODone HCL 100 MG TABLET PO (20:05)
[2023-10-31] MEDS: oxyCODONE HCl ER 10 MG TAB.ER.12H 30 MG PO (22:17)
[2023-11-01] MEDS: oxyCODONE HCl Immed Release 15 MG TABLET 30 MG PO ×3 (08:50→17:16)
[2023-11-01 09:25] VITALS: BP 103/64; PULSE 69; RESP 16; TEMP 36.2; O2SAT 97
[2023-11-01] MEDS: LORazepam 1 MG TABLET PO (09:45)
--- NOTE | 2023-11-01 11:05 | P.PNPSI_ITS ---
Subjective Subjective Date of Service: 11/01/23 Reason For Visit: SI Interim History: met with patient; discussed with team Patient continues to report that she is doing good and denies depression or anxiety. Very much looking forward to discharging. Feels ready to go home and safe. Social in the milieu; she remain appropriate with peers and staff, good behavioral and impulse control Mental Status Exam Mental Status Exam Patient Appearance: Unkempt (but adequate hygiene) Patient Orientation: Person, Place, Time and Situation Level of Consciousness: Awake and Appropriate Patient Behavior: Appropriate, Cooperative and Good Eye Contact Mood Description: Calm Affect Description: Calm Patient Cognition Impaired: Yes Ability to Follow Directions: Good Speech Pattern: Clear and Spontaneous Speech Memory Description: Episodic Impaired Hallucinations: None Delusions: Not Present Thought Process: Intact and Goal Oriented Thought Content: positive for Goal Oriented (no SI/HI) Judgement: Fair Judgement and Insight: fair Diagnostics Vital Signs (24Hr): Vital Signs - 24 hr 10/31/23 17:06 11/01/23 09:25 Temperature 97.7 F 97.1 F Pulse Rate 66 69 Respiratory Rate 16 16 Blood Pressure 101/76 103/64 Pulse Oximetry 99 97 Oxygen Delivery Method Room Air Room Air BMI result Body Mass Index 20.5 Labs 10/27/23 19:14 10/28/23 06:04 Imaging Radiology Impressions: ITS Impressions Head CT 10/27/23 20:23 IMPRESSION: No acute intracranial abnormality including hemorrhage, mass effect, hydrocephalus, or acute territorial edematous infarction. Medications Medications Current Medications Acetaminophen (Acetaminophen 325 Mg Tablet) 650 mg PO Q6H PRN PRN Reason: Headache/Pain Mild Scale (1-3) Last Admin: 10/30/23 05:59 Dose: 650 mg Al Hydroxide/Mg Hydroxide (Magnesium Hydrox/Alum Hydrox 30 Ml Oral.Susp) 30 ml PO Q6H PRN PRN Reason: Heartburn/Nausea Albuterol Sulfate (Albuterol Sulfate 90 Mcg 8 Gm Inhaler) 2 puff INHALE Q4H PRN PRN Reason: wheezing Cyclobenzaprine HCl (Cyclobenzaprine Hcl 10 Mg Tablet) 10 mg PO TID [facility] Last Admin: 11/01/23 08:52 Dose: Not Given Hydroxyzine HCl (Hydroxyzine Hcl 25 Mg Tablet) 25 mg PO Q6H PRN PRN Reason: Anxiety Last Admin: 10/31/23 15:49 Dose: 25 mg Ibuprofen (Ibuprofen 800 Mg Tablet) 800 mg PO TID PRN PRN Reason: Pain, Mild (Pain Scale 1-3) Last Admin: 10/31/23 15:46 Dose: 800 mg Lidocaine HCl (Lidocaine 4 % Cream Kit) 1 appl TOPICAL ONCE PRN; Protocol PRN Reason: Pain, Moderate(Pain Scale 4-6) Lorazepam (Lorazepam 1 Mg Tablet) 1 mg PO DAILY PRN PRN Reason: Anxiety Last Admin: 11/01/23 09:45 Dose: 1 mg Magnesium Hydroxide (Milk Of Magnesia 30 Ml Oral.Susp) 30 ml PO DAILY PRN PRN Reason: Constipation Magnesium Oxide (Magnesium Oxide 400 Mg Tablet) 500 mg PO DAILY [facility] Last Admin: 11/01/23 08:52 Dose: Not Given Mirtazapine (Mirtazapine 15 Mg Tablet) 15 mg PO BEDTIME [facility] Last Admin: 10/31/23 22:12 Dose: Not Given Oxycodone HCl (Oxycodone Hcl Immed Release 15 Mg Tablet) 30 mg PO QID [facility] Last Admin: 11/01/23 08:50 Dose: 30 mg Oxycodone HCl (Oxycodone Hcl Er 10 Mg Tab.Er.12h) 30 mg PO BEDTIME [facility] Last Admin: 10/31/23 22:17 Dose: 30 mg Trazodone HCl (Trazodone Hcl 50 Mg Tablet) 50 mg PO BEDTIME PRN PRN Reason: Insomnia Last Admin: 10/28/23 20:23 Dose: 50 mg Trazodone HCl (Trazodone Hcl 100 Mg Tablet) 100 mg PO BEDTIME [facility] Last Admin: 10/31/23 20:05 Dose: 100 mg Allergies Allergies Allergy/AdvReac Type Severity Reaction Status Date / Time azithromycin Allergy Itching Verified 10/27/23 18:06 nitrofurantoin Allergy Itching Verified 10/27/23 18:06 [From Macrodantin] Assessment & Plan Assessment & Plan (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, unspecified (2) Osteogenesis imperfecta: Status: Acute Code(s): Q78.0 - Osteogenesis imperfecta (3) Anxiety: Status: Acute Code(s): F41.9 - Anxiety disorder, unspecified (4) Unspecified psychosis: Status: Acute Code(s): F29 - Unspecified psychosis not due to a substance or known physiological condition Plan 38-year-old single female with PMH of Anxiety, depression, Anorexia,psychosis including delusions and hallucinations, and osteogenesis imperfecta and Jennifer Danlos who was admitted to on a conditional voluntary after she was medically cleared in the emergency room at [facility]. Rule out medication abuse, anorexia Plan: 3 day 15 min checks continue home meds collateral contact hospitalist consult re: c/o vaginal burning and pain UA Hospital course: 10/30/23 consult with OBGYN re vaginal discomfort repeat UA lidocaine cream prn for pain t/c to dr herrera and await return call continue to encourage antidepressant 10/30 patient denies psych symptoms; very much looking forward to discharge early next week. Remains isolative but not uncooperative 10/31 Patient continues to report that she is doing good and denies depression or anxiety. Very much looking forward to discharging. Feels ready to go home and safe. Social in the milieu; she remain appropriate with peers and staff, good behavioral and impulse control Patient educated on: diagnosis Informed Consent: understands Reason for continued inpatient stay Substantial Risk for: stable for discharge Time Spent With Patient Time: Total time managing care of this patient today ____ minutes.
[2023-11-01] MEDS: hydrOXYzine HCL 25 MG TABLET PO (14:29)
[2023-11-01 17:49] VITALS: BP 97/70; PULSE 98; RESP 18; TEMP 36.4; O2SAT 98
[2023-11-01] MEDS: traZODone HCL 100 MG TABLET PO (20:28)
[2023-11-01] MEDS: oxyCODONE HCl ER 10 MG TAB.ER.12H 30 MG PO (21:00)
[2023-11-02] MEDS: oxyCODONE HCl Immed Release 15 MG TABLET 30 MG PO ×4 (08:16→21:44)
[2023-11-02 08:40] VITALS: BP 106/71; PULSE 78; RESP 18; TEMP 36.7; O2SAT 97
[2023-11-02] MEDS: LORazepam 1 MG TABLET PO (08:54)
--- NOTE | 2023-11-02 09:06 | P.EN_ITS ---
Event Note Date of Service: 11/02/23 Event Note: Consulted for curriculum coordinator complaints Patient declined the consult Time Spent With Patient Time: Total time managing care of this patient today ____ minutes.
--- NOTE | 2023-11-02 09:06 | PM.EVENT ---
Event Note Date of Service: 11/02/23 Event Note: Consulted for retail wireless associate complaints Patient declined the consult Time Spent With Patient Time: Total time managing care of this patient today ____ minutes.
--- NOTE | 2023-11-02 09:56 | HO.PSYCHPN ---
Subjective Subjective Date of Service: 11/02/23 Reason For Visit: SI Interim History: met with patient; discussed with team Patient reports feeling much better, says that no depression, no SI. She regrets taking overdose and says if she ever feels unsafe again she will definitely reach out for help before this; she says she is discussed this with her mom and that is their agreement. In hindsight she says she did not really want to she mostly just wanted to get a chance to sleep. With this overdose combined with withdrawing from Ativan, patient was delirious and this is how she accounts for psychotic symptoms. 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 Social work discussed case with her mother who corroborates no other history of psychotic illness; mother also feels patient is ready to come home and concurs that they have a safety plan together. Patient does not want any further medication. She says trazodone has been helping and that her mood is good in that she feels in a good space. Patient does want to therapist and asked social work to help set this up. Other provider discussed case with outpatient psychiatric provider regarding Ativan taper; taper started 7 months ago; all agree that she will remain on Ativan 1 mg daily p.r.n.. Patient also says that 1 mg daily seems to be enough for her. Mental Status Exam Mental Status Exam Narrative: Pt is alert and oriented; behavior is cooperative, friendly and calm; patient is not in distress; dressed in casual attire with unkempt hair but adequate hygiene; mood is described as good and affect congruent; eye contact appropriate; Speech is normal rate, volume and prosody and not pressured; no psychomotor agitation/retardation present; thought process is organized and goal directed; Thought content is on tx; otherwise pertinent to relevant topics and without any delusional content, paranoid ideations or grandiosity; denies any SI/HI. There is no evidence of perceptual disturbance. Patients insight and judgment appear intact. Diagnostics Vital Signs (24Hr): Vital Signs - 24 hr 11/01/23 17:49 11/02/23 08:40 Temperature 97.5 F 98.0 F Pulse Rate 98 78 Respiratory Rate 18 18 Blood Pressure 97/70 106/71 Pulse Oximetry 98 97 Oxygen Delivery Method Room Air Room Air BMI result Body Mass Index 20.5 Labs 10/27/23 19:14 10/28/23 06:04 Imaging Radiology Impressions: ITS Impressions Head CT 10/27/23 20:23 IMPRESSION: No acute intracranial abnormality including hemorrhage, mass effect, hydrocephalus, or acute territorial edematous infarction. Medications Medications Current Medications Acetaminophen (Acetaminophen 325 Mg Tablet) 650 mg PO Q6H PRN PRN Reason: Headache/Pain Mild Scale (1-3) Last Admin: 10/30/23 05:59 Dose: 650 mg Al Hydroxide/Mg Hydroxide (Magnesium Hydrox/Alum Hydrox 30 Ml Oral.Susp) 30 ml PO Q6H PRN PRN Reason: Heartburn/Nausea Albuterol Sulfate (Albuterol Sulfate 90 Mcg 8 Gm Inhaler) 2 puff INHALE Q4H PRN PRN Reason: wheezing Cyclobenzaprine HCl (Cyclobenzaprine Hcl 10 Mg Tablet) 10 mg PO TID [facility] Last Admin: 11/02/23 09:07 Dose: Not Given Hydroxyzine HCl (Hydroxyzine Hcl 25 Mg Tablet) 25 mg PO Q6H PRN PRN Reason: Anxiety Last Admin: 11/01/23 14:29 Dose: 25 mg Ibuprofen (Ibuprofen 800 Mg Tablet) 800 mg PO TID PRN PRN Reason: Pain, Mild (Pain Scale 1-3) Last Admin: 10/31/23 15:46 Dose: 800 mg Lidocaine HCl (Lidocaine 4 % Cream Kit) 1 appl TOPICAL ONCE PRN; Protocol PRN Reason: Pain, Moderate(Pain Scale 4-6) Lorazepam (Lorazepam 1 Mg Tablet) 1 mg PO DAILY PRN PRN Reason: Anxiety Last Admin: 11/02/23 08:54 Dose: 1 mg Magnesium Hydroxide (Milk Of Magnesia 30 Ml Oral.Susp) 30 ml PO DAILY PRN PRN Reason: Constipation Magnesium Oxide (Magnesium Oxide 400 Mg Tablet) 500 mg PO DAILY [facility] Last Admin: 11/02/23 09:07 Dose: Not Given Mirtazapine (Mirtazapine 15 Mg Tablet) 15 mg PO BEDTIME [facility] Last Admin: 11/01/23 20:28 Dose: Not Given Oxycodone HCl (Oxycodone Hcl Immed Release 15 Mg Tablet) 30 mg PO QID [facility] Last Admin: 11/02/23 08:16 Dose: 30 mg Oxycodone HCl (Oxycodone Hcl Er 10 Mg Tab.Er.12h) 30 mg PO BEDTIME [facility] Last Admin: 11/01/23 21:00 Dose: 30 mg Trazodone HCl (Trazodone Hcl 50 Mg Tablet) 50 mg PO BEDTIME PRN PRN Reason: Insomnia Last Admin: 10/28/23 20:23 Dose: 50 mg Trazodone HCl (Trazodone Hcl 100 Mg Tablet) 100 mg PO BEDTIME [facility] Last Admin: 11/01/23 20:28 Dose: 100 mg Allergies Allergies Allergy/AdvReac Type Severity Reaction Status Date / Time azithromycin Allergy Itching Verified 10/27/23 18:06 nitrofurantoin Allergy Itching Verified 10/27/23 18:06 [From Macrodantin] Assessment & Plan Assessment & Plan (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 Patient was evaluated by N on October 26 after her brother called crisis because pt was not making sense and presenting confused. crisis evaluation notes the patient was confused and having auditory and visual hallucinations. The patient had been going through an Ativan taper over 3 months but ran out of Ativan last Thursday earlier than she should have. Her mother reports that she observed seen a seizure and that the patient hit her head she was seen at [facility] on October [address] but had no head CT head. CT scan done in [facility] Emergency room on 10/26 and unremarkable. HOSPITAL COURSE: 10/29 pt is depressed, fatigued, in bed, reports pain in hips and back. reluctant to get out of bed to get pain medicaitons; talked to her about how important it is to keep moving despite discomfort- she needs to do some movement; she denies SI or Hi; does not want any other medications for depression; agrees to allowing me to call Dr herrera to collaborate. Pt is focused on going home. -consult with OBGYN re vaginal discomfort; repeat UA; -lidocaine cream prn for pain -t/c to dr herrera and await return call -continue to encourage antidepressant 10/30 patient denies psych symptoms; very much looking forward to discharge early next week. Remains isolative but not uncooperative 10/31 Patient continues to report that she is doing good and denies depression or anxiety. Very much looking forward to discharging. Feels ready to go home and safe. Social in the milieu; she remain appropriate with peers and staff, good behavioral and impulse control 11/01 Patient reports feeling much better, says that no depression, no SI. She regrets taking overdose and says if she ever feels unsafe again she will definitely reach out for help before this; she says she is discussed this with her mom and that is their agreement. In hindsight she says she did not really want to she mostly just wanted to get a chance to sleep. With this overdose combined with withdrawing from Ativan, patient was delirious and this is how she accounts for psychotic symptoms. Otherwise she denies any AVH, paranoid delusions (other than 1 other time in 2021 when she was withdrawing from benzodiazepines; from withdrawal she became delirious, psychotic, taken to the ED and psychiatric unit). Social work discussed case with her mother who corroborates no other history of psychotic illness; mother also feels patient is ready to come home and concurs that they have a safety plan together. Patient does not want any further medication. She says trazodone has been helping and that her mood is good in that she feels in a good space. Patient does want to therapist and asked social work to help set this up. Other provider discussed case with outpatient psychiatric provider regarding Ativan taper; taper started 7 months ago; all agree that she will remain on Ativan 1 mg daily p.r.n.. Patient also says that 1 mg daily seems to be enough for her. Patient has remained in good behavioral and impulse control; her affect is noticeably brighter and she has been more social in the milieu, more forthcoming in discussions. She denies depression or any SI, feels safe and wants to return home her 3 day notice coming due tomorrow. Patient is going home to live with her parents who are supportive. Patient is not in imminent risk for harm to self or others and request for discharge honored. Plan: 3 day 15 min checks continue home meds collateral contact Patient educated on: diagnosis, medication risk/benefits and therapeutic strategies Informed Consent: understands Reason for continued inpatient stay Substantial Risk for: stable for discharge Time Spent With Patient Time: Total time managing care of this patient today ____ minutes.
--- NOTE | 2023-11-02 11:31 | PM.EVENT ---
Event Note Date of Service: 11/03/23 Event Note: telephone call to Dr Herrera office- left message to obtain collateral information and information about treatment plan in order to coordinate care telephone call to pts PCP office Dr Longo who is out today and asked that nurse working with patient/Dr Longo callback to coordinate care Nurse from [facility] called back. Dr Longo and Dr Herrera both out. Nurse states that margy herrera sees pt frequently. Most recently seen 10/14. pt missed schedule appt with him on 10/20. Has next appt with Dr herrera on 11/11/23. Pt is scheduled to see Dr Longo on 312 at 245pm to discuss benzodiazepines. Nurse states that there has been concerns about misuse of ativan. Pt also has appt for a wellness visist with dr longo on 11/11/23. Time Spent With Patient Time: Total time managing care of this patient today ___10_ minutes.
[2023-11-02] MEDS: hydrOXYzine HCL 25 MG TABLET PO (14:56)
--- NOTE | 2023-11-02 16:41 | PM.PSYDC ---
DS: Providers Provider Date of Service: 11/03/23 Date of admission: 10/28/23 14:56 Date of discharge: 11/03/23 Primary care physician: Unknown Physician Admitting clinician: Barbi Rivera Consults: 10/30/23 09:55 Consult to Obstetrics / Gynecology Routine Consulting Provider: [facility] Reason for consultation: itching, burning, pain upon urinating and on vulva Has provider been notified: No Attending physician on discharge: Aurelio Hermosillo DS: Diagnosis Discharge Diagnosis (1) Jennifer-Danlos disease: (2) Osteogenesis imperfecta: (3) Anxiety: (4) Unspecified psychosis: DS: Medications Discharge Medications Home Medications: Home Medications Medication Instructions Recorded Confirmed albuterol sulfate 90 mcg/actuation 2 puff inhalation Q4H PRN wheezing 10/27/23 10/27/23 aerosol inhaler cyclobenzaprine 10 mg tablet 10 mg PO TID 10/27/23 10/27/23 ibuprofen 800 mg tablet 800 mg PO TID PRN Pain 10/27/23 10/27/23 lorazepam 1 mg tablet 1 mg PO DAILY PRN Anxiety 10/27/23 10/27/23 magnesium oxide 500 mg PO DAILY 10/27/23 10/27/23 oxycodone 30 mg tablet 30 mg PO QID 10/27/23 10/27/23 oxycodone 30 mg tablet,crush 30 mg PO DAILY 10/27/23 10/27/23 resistant,extended release 12 hr (OxyContin) Previous Rx's Medication Instructions Recorded hydroxyzine HCl 25 mg tablet 25 mg PO Q6H PRN Anxiety 30 days 11/02/23 #60 tabs trazodone 100 mg tablet 100 mg PO BEDTIME PRN insomnia 30 11/02/23 days #30 tabs Mental Status Exam Mental Status Exam Narrative: Pt is alert and oriented; behavior is cooperative, friendly and calm; patient is not in distress; dressed in casual attire with unkempt hair but adequate hygiene; mood is described as good and affect congruent; eye contact appropriate; Speech is normal rate, volume and prosody and not pressured; no psychomotor agitation/retardation present; thought process is organized and goal directed; Thought content is on tx; otherwise pertinent to relevant topics and without any delusional content, paranoid ideations or grandiosity; denies any SI/HI. There is no evidence of perceptual disturbance. Patients insight and judgment appear intact. Data Data Completed and Pending Completed studies during hospitalization [Text1]: 10/27/23 10/27/23 10/27/23 18:36 19:07 19:14 WBC 8.9 RBC 4.35 Hgb 13.8 Hct 39.6 MCV 91.0 MCH 31.7 MCHC 34.8 RDW 12.1 Plt Count 230 MPV 9.6 Immature Gran % (Auto) 0.2 Neut % (Auto) 57.9 Lymph % (Auto) 33.0 Osage % (Auto) 7.7 Eos % (Auto) 0.6 Baso % (Auto) 0.6 Lymph # (Auto) 3.0 [place] # (Auto) 0.7 Eos # (Auto) 0.1 Baso # (Auto) 0.1 Abs Immat Gran (auto) 0.02 Absolute Neuts (auto) 5.2 Absolute Nucleated RBC 0.000 Nucleated RBC % (auto) 0.0 Sodium 140 Potassium 2.9 L* Chloride 103 Carbon Dioxide 28 Anion Gap 12 BUN 9 Creatinine 0.67 Estim Creat Clear Calc 81.8 Estimated GFR > 60 Random Glucose 82 Calcium 9.6 Magnesium 1.9 Total Bilirubin 0.4 Direct Bilirubin 0.1 AST 9 ALT 5 Alkaline Phosphatase 40 Total Protein 6.4 L Albumin 4.1 Urine Color Yellow Urine Appearance Turbid Urine pH 6.5 Ur Specific [place] 1.015 Urine Protein Negative Urine Glucose (UA) Negative Urine Ketones 40 Urine Blood Negative Urine Nitrite Negative Ur Leukocyte Esterase Small (1+) H Urine RBC 0-2 Urine WBC 11-20 H Ur Squamous Epith Cells >20 Urine Bacteria 4+ Hyaline Casts 0-2 Urine Test NEGATIVE Urine Opiates Screen POSITIVE H Urine Fentanyl Screen POSITIVE H Ur Barbiturates Screen Not Detected Ur Phencyclidine Scrn Not Detected Ur Amphetamines Screen Not Detected U Benzodiazepines Scrn Not Detected Urine Cocaine Screen Not Detected U Marijuana (THC) Screen Not Detected Ethyl Alcohol < 10 COVID-19 (LIONEL) COVID-19 Clin Com 10/28/23 10/28/23 10/29/23 06:04 08:39 13:09 WBC RBC Hgb Hct MCV MCH MCHC RDW Plt Count MPV Immature Gran % (Auto) Neut % (Auto) Lymph % (Auto) [place] % (Auto) Eos % (Auto) Baso % (Auto) Lymph # (Auto) [place] # (Auto) Eos # (Auto) Baso # (Auto) Abs Immat Gran (auto) Absolute Neuts (auto) Absolute Nucleated RBC Nucleated RBC % (auto) Sodium Potassium 3.2 L Chloride Carbon Dioxide Anion Gap BUN Creatinine Estim Creat Clear Calc Estimated GFR Random Glucose Calcium Magnesium Total Bilirubin Direct Bilirubin AST ALT Alkaline Phosphatase Total Protein Albumin Urine Color Yellow Urine Appearance Cloudy Urine pH 6.0 Ur Specific [place] 1.025 Urine Protein Negative Urine Glucose (UA) Negative Urine Ketones Negative Urine Blood Negative Urine Nitrite Negative Ur Leukocyte Esterase Small (1+) H Urine RBC 0-2 Urine WBC 21-50 H Ur Squamous Epith Cells >20 Urine Bacteria 4+ Hyaline Casts 0-2 Urine Test Urine Opiates Screen Urine Fentanyl Screen Ur Barbiturates Screen Ur Phencyclidine Scrn Ur Amphetamines Screen U Benzodiazepines Scrn Urine Cocaine Screen U Marijuana (THC) Screen Ethyl Alcohol COVID-19 (LIONEL) Negative COVID-19 Clin Com See Note 10/29/23 15:04 Urine clean catch - Urine wooten top Urine Culture - Final 10/27/23 19:25 Urine clean catch - Urine wooten top Urine Culture - Final Imaging Diagnostic Imaging Impressions Head CT 10/27/23 20:23 IMPRESSION: No acute intracranial abnormality including hemorrhage, mass effect, hydrocephalus, or acute territorial edematous infarction. DS: Summary Hospital Course Hospital Course: HPI: Joselin is a 38-year-old single female with PMH of Anxiety, depression, Anorexia, and osteogenesis imperfecta and Jennifer Danlos who was admitted to on a conditional voluntary after she was medically cleared in the emergency room at [facility]. Patient was evaluated by N on October 26 after her brother called crisis because pt was not making sense and presenting confused. crisis evaluation notes the patient was confused and having auditory and visual hallucinations. The patient had been going through an Ativan taper over 3 months but ran out of Ativan last Thursday earlier than she should have. Her mother reports that she observed seen a seizure and that the patient hit her head she was seen at [facility] on October [address] no head CT head. CT scan done in [facility] Emergency room on 10/26 and unremarkable. HOSPITAL COURSE: 10/29 pt is depressed, fatigued, in bed, reports pain in hips and back. reluctant to get out of bed to get pain medicaitons; talked to her about how important it is to keep moving despite discomfort- she needs to do some movement; she denies SI or Hi; does not want any other medications for depression; agrees to allowing me to call Dr herrera to collaborate. Pt is focused on going home. -consult with OBGYN re vaginal discomfort; repeat UA; -lidocaine cream prn for pain -t/c to dr herrera and await return call -continue to encourage antidepressant 10/30 patient denies psych symptoms; very much looking forward to discharge early next week. Remains isolative but not uncooperative 10/31 Patient continues to report that she is doing good and denies depression or anxiety. Very much looking forward to discharging. Feels ready to go home and safe. Social in the milieu; she remain appropriate with peers and staff, good behavioral and impulse control 11/01 Patient reports feeling much better, says that no depression, no SI. She regrets taking overdose and says if she ever feels unsafe again she will definitely reach out for help before this; she says she is discussed this with her mom and that is their agreement. In hindsight she says she did not really want to she mostly just wanted to get a chance to sleep. With this overdose combined with withdrawing from Ativan, patient was delirious and this is how she accounts for psychotic symptoms. Otherwise she denies any AVH, paranoid delusions (other than 1 other time in 2021 when she was withdrawing from benzodiazepines; from withdrawal she became delirious, psychotic, taken to the ED and psychiatric unit). Social work discussed case with her mother who corroborates no other history of psychotic illness; mother also feels patient is ready to come home and concurs that they have a safety plan together. Patient does not want any further medication. She says trazodone has been helping and that her mood is good in that she feels in a good space. Patient does want to therapist and asked social work to help set this up. Other provider discussed case with outpatient psychiatric provider regarding Ativan taper; taper started 7 months ago; all agree that she will remain on Ativan 1 mg daily p.r.n.. Patient also says that 1 mg daily seems to be enough for her. Outpatient provider also corroborates no history of psychosis/rell. Patient has remained in good behavioral and impulse control; her affect is noticeably brighter and she has been more social in the milieu, more forthcoming in discussions. She denies depression or any SI, feels safe and wants to return home her 3 day notice coming due tomorrow. Patient is going home to live with her parents who are supportive. Patient is not in imminent risk for harm to self or others and request for discharge honored. Time spent discussing smoking cessation with patient: 3 to 10 minutes Status at Discharge Functional status at discharge: independent ambulation Overall status at discharge: patient is back to baseline Time Spent with Patient Time attestation: Total time managing care of this patient today __40__ minutes. 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 Zamarripa [Other] - 11/13/23 2:30 pm (Virtual) [facility] PCP w Dr. Alanis [Other] - 11/03/23 2:45 pm (Work with Dr. Alanis to find a therapist that will be a good fit for you. ) Jennifer Danlos [facility] [place] [Other] - 3-5 Days (The EDS and CTD [place] Support [facility] is comprised of individuals and families of all ages who are affected by Jennifer-Danlos or a related connective tissue disorder (either personally or as a parent or significant other).) Discharge Medications: New hydroxyzine HCl 25 mg Tablet 25 mg PO Q6H PRN (Reason: Anxiety) 30 Days Qty: 60 0RF Continued cyclobenzaprine 10 mg tablet 10 mg PO TID ibuprofen 800 mg tablet 800 mg PO TID PRN (Reason: Pain) magnesium oxide 500 mg magnesium tablet 500 mg PO DAILY oxycodone 30 mg tablet 30 mg PO QID lorazepam 1 mg tablet 1 mg PO DAILY PRN (Reason: Anxiety) albuterol sulfate 90 mcg/actuation HFA aerosol inhaler 2 puff INHALATION Q4H PRN (Reason: wheezing) oxycodone [OxyContin] 30 mg tablet,oral only,ext.rel.12 hr 30 mg PO DAILY Changed trazodone 100 mg tablet 100 mg PO BEDTIME PRN (Reason: insomnia) 30 Days Qty: 30 0RF Discontinued mirtazapine 15 mg tablet 15 mg PO BEDTIME Discharge Orders: Discharge Order (Routine); Ordered 11/03/23 Ordered By: Aurelio Hermosillo Diet: Regular diet Activity on Discharge: As tolerated Stand Alone Forms: Patient Portal Discharge page, Community Support Care Plan Goals: Maintain mood and safe behaviors Take medications as prescribed Practice coping skills Continue with outpatient providers and reach out to them as needed Health Concerns: Mood stability and behaviors Jennifer-Danlos Osteogenesis imperfecta History of anorexia Plan of Treatment: Follow up with your PCP, psychiatric provider and other outpatient providers regarding above concerns Take medications as prescribed Assessment: Risk assessment at time of discharge:? Patient was interviewed prior to discharge and found to be fully oriented and without any SI or HI. Patient has improved insight and judgment and wants to continue treatment. Patient is not in imminent risk of harm to self or others and has a safety plan that includes presenting to the closest ER or calling 911 if feeling unsafe.? Patient has been observed closely by nursing and unit staff throughout admission; patient has not engaged in any behaviors that suggest dangerousness to self or others and has demonstrated appropriate behaviors and impulse control Discharge Date/Time: 11/03/23 11:35
[2023-11-02 18:00] VITALS: BP 105/57; PULSE 100; RESP 18; TEMP 36; O2SAT 94
[2023-11-02] MEDS: traZODone HCL 100 MG TABLET PO (19:39)
[2023-11-02] MEDS: Cyclobenzaprine HCl 10 MG TABLET PO (19:39)
[2023-11-02] MEDS: oxyCODONE HCl ER 10 MG TAB.ER.12H 30 MG PO (22:52)
[2023-11-03 08:00] VITALS: BP 100/60; PULSE 70; RESP 16; TEMP 36.4; O2SAT 96
[2023-11-03] MEDS: Magnesium Oxide 400 MG TABLET 500 MG PO (08:06)
[2023-11-03] MEDS: oxyCODONE HCl Immed Release 15 MG TABLET 30 MG PO (08:07)
[2023-11-03] MEDS: LORazepam 1 MG TABLET PO (08:09)
== END 2023-11-03 11:35 | disposition home or self-care (01) | DRG 885 ==
LOC: HO.ED 20:37 → HO.PM5 10-28 15:08
PROVIDERS: Clinical Nurse Specialist Psychiatric/Mental Health; Admitting Provider Psychiatry & Neurology Psychiatry; Emergency Provider Emergency Medicine; Visit Provider Clinical Nurse Specialist Psychiatric/Mental Health, Adult
DX: F33.3 Major depressive disorder, recurrent, severe with psychotic symptoms (principal); R45.851 Suicidal ideations; F13.20 Sedative, hypnotic or anxiolytic dependence, uncomplicated; Q78.0 Osteogenesis imperfecta; Q79.60 Ehlers-Danlos syndrome, unspecified; F41.9 Anxiety disorder, unspecified; F17.210 Nicotine dependence, cigarettes, uncomplicated; Z71.6 Tobacco abuse counseling; Z20.822 Contact with and (suspected) exposure to COVID-19; Z79.899 Other long term (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
CPT/HCPCS: 36415; 70450; 80048; 80076; 80307; 81001; 81025; 83735; 84132; 85025; 87086; 87635; 93005; 99285

== ENCOUNTER → 2023-10-28 08:39 | Outpatient (BNV) | payer MEDICARE, MEDICAID, SELFPAY | PROVIDERS: Admitting Provider Psychiatry & Neurology Psychiatry; Emergency Provider Emergency Medicine; Visit Provider Internal Medicine Cardiovascular Disease | DX: I49.8 Other specified cardiac arrhythmias (principal) | CPT/HCPCS: 93010 ==

== ENCOUNTER → 2023-10-28 14:56 | Outpatient (BNV) | payer MEDICARE, MEDICAID, SELFPAY | PROVIDERS: Admitting Provider Psychiatry & Neurology Psychiatry; Emergency Provider Emergency Medicine; Visit Provider Clinical Nurse Specialist Psychiatric/Mental Health | DX: F29 Unspecified psychosis not due to a substance or known physiological condition (principal); F41.9 Anxiety disorder, unspecified; Q79.60 Ehlers-Danlos syndrome, unspecified; Q78.0 Osteogenesis imperfecta | CPT/HCPCS: 90792; 99231; 99232; 99239; 99499 ==

== ENCOUNTER 2024-05-18 16:46 | Inpatient (IN) | payer MEDICARE, MEDICAID, SELFPAY ==
--- NOTE | ~2024-05-18 | MR_ITS ---
EXAMINATION: MR LUMBAR SPINE WITHOUT CONTRAST CLINICAL INFORMATION: Chronic low back pain, new paresthesias, urinary retention COMPARISON: None TECHNIQUE: MRI of the lumbar spine was obtained using routine sequences without contrast. FINDINGS: Motion degraded examination. Normal lumbar lordosis is preserved. No significant spondylolisthesis. Vertebral body heights are maintained. There is no suspicious osseous lesion. The intervertebral disc space heights are normal. No annular disc bulging or disc herniations. No spinal canal or neural foraminal stenosis at any level. The conus medullaris terminates at inferior L2 level. The distal spinal cord is normal in appearance. No epidural fluid collection, hematoma, or mass. No significant abnormalities of the paraspinal musculature. Apparent dysmorphic appearance of the upper sacral posterior elements on axial T1-weighted sequence may be artifactual and related to imaging plane rather than spina bifida occulta, however would be better diagnostically assessed on CT. Significantly distended urinary bladder. 1.8 cm left adnexal cystic lesion. Findings are overwhelmingly likely to represent a normal ovarian follicle. No follow-up imaging recommended. The abdominal aorta is of normal contour and caliber. MR/MR lumbar spine wo con IMPRESSION: No spinal canal or neural foraminal stenosis at any level. Significantly distended urinary bladder. Apparent dysmorphic appearance of the upper sacral posterior elements on axial T1-weighted sequence may be artifactual and related to imaging plane rather than spina bifida occulta, however would be better diagnostically assessed on CT. Electronically signed by: Daksha English MD 05/18/2024 07:56 PM EDT
--- NOTE | ~2024-05-18 | US_ITS ---
EXAMINATION: US TRIPLEX LOWER EXTREMITY, LEFT CLINICAL INFORMATION: Left lower extremity swelling COMPARISON: None available. TECHNIQUE: Color-flow triplex imaging with spectral analysis and compression Doppler were performed on the left lower extremity. FINDINGS: Respiratory variation, normal compression and augmented flow are noted throughout the left lower extremity. The visualized common femoral vein, superficial femoral vein, profunda femoral vein, popliteal vein and midcalf peroneal and posterior tibial venous segments show no evidence of deep venous thrombosis. There is no Stewart's cyst. US/US venous duplex LE LT IMPRESSION: No evidence of deep venous thrombosis involving the left lower extremity. Electronically signed by: Adonis Montiel MD 05/18/2024 09:01 PM EDT
--- OUTSIDE RECORDS SUMMARY | 2024-05-18 16:50 | XMS_ITS | Continuity of Care Document ---
Author Organization [facility] Kiersten cardoza [facility] Address [address] [place] [address], [address] [place] [address]- Care Team Providers Care Schedule Planning Manager Name Role Phone Brigido Dietrich MD Primary Care Physician Encounter [facility] Date(s): 10/14/23 - [facility] [address] [facility], 4th [address] [place], [place] [address] Attending Physician: Giuliana Elias MD Admitting Physician: Giuliana Elias MD Referring Physician: Brigido Dietrich MD Allergies, Adverse Reactions, Alerts Substance Reaction Severity Status Macrodantin itching and tired Active Zithromax facial swelling and itching Active Levaquin Active Immunizations Given and Recorded Vaccine Date Status Refusal Reason pneumococcal 23-valent vaccine 1 12/05/09 Given Tet/diphth/pertussis, acel (oldterm) 2 10/22/09 Gi peng 1Admin Note: VIM given 2Admin Note: Boostrix VIM given, 07-11-08 Medications albuterol CFC free 90 mcg/inh inhalation aerosol 2, puffs, Inhalation, Every 4 hours, PRN, # 18 Gm, Refills 0, Tot. Refills 0, Maintenance, 10/14/2319:45:00 EST, Aerosol, Route to Pharmacy Electronically, [id number], [facility]/pharmacy #[id number], 173, cm, 10/14/22 19:02:00 EST, Heig... Start Date: 10/14/22 Status: Ordered Calcium Carbonate By Mouth, 0 Refills, Maintenance, 04/05/15 15:30:34 Start Date: 04/05/15 Status: Ordered Lorazepam = 1 mg, 5 times a day, 0 Refills, Maintenance, 11/20/22 17:32:00 EDT, Partial fill upon patient request if the prescription is for a schedule II opioid drug. Start Date: 11/20/22 Status: Ordered oxyCODONE 30 mg IR tablet 1 tablet = 30 mg, By Mouth, 4 times a day, PRN as needed for pain, 0 Refills, Maintenance, 01/31/2114:38:00 EDT, Tablet, Partial fill upon patient request if the prescription is for a schedule II opioid drug. Start Date: 01/31/21 Status: Ordered OxyCONTIN 30 mg oral tablet, extended release 1 tablet = 30 mg, By Mouth, Daily, 0 Refills, Maintenance, 06/22/22 8:20:00 EDT, Partial fill upon patient request if the prescription is for a schedule II opioid drug. Start Date: 06/22/22 Status: Ordered ProAir HFA 90 mcg/inh inhalation aerosol with adapter 2 puffs, Inhalation, 4 times a day, # 1 each, 1 Refills, Maintenance Start Date: 03/04/10 Status: Ordered Trazodone = 200 mg, By Mouth, Daily at bedtime, 0 Refills, Maintenance, 09/18/21 13:15:00 EST, Partial fill upon patient request if the prescription is for a schedule II opioid drug. Start Date: 09/18/21 Status: Ordered Vitamin C 250 mg oral tablet 1 tablet = 250 mg, By Mouth, 2 times a day, Diagnosis: Scurvy. Vitamin C level = 0.3, # 60 tablet, 11 Refills, Maintenance, 02/08/15 10:35:01, Tablet, 1 tablet By Mouth 2 times a day,x30 days,Instr:Diagnosis: Scurvy. Vitamin C level = 0.3 Start Date: 02/08/15 Stop Date: 02/03/16 Status: Ordered Vitamin D3 By Mouth, 0 Refills, Maintenance, 04/05/15 15:22:20 Start Date: 04/05/15 Status: Ordered Problem List Condition Confirmation Course Effective Dates Status H ealth Status Informant Anxiety depression Confirmed Active Asthma Confirmed Active Bladder catheterization 1 Confirmed Active CTS - Carpal tunnel syndrome 2 Confirmed Active Drug interaction 3 Confirmed Active Drug-induced constipation Confirmed Active Mechanical low back pain Confirmed Active Migraine Confirmed Active Myofascial pain syndrome Confirmed Active Not getting enough sleep Confirmed Active Painless rectal bleeding Confirmed Active Rectocele Confirmed Active Tobacco abuse Confirmed Active UI - Urinary incontinence Confirmed Active Urinary retention Confirmed 1994 Active 1for urinary retention-preceded chronic opioid use 2right 3history of tramadol treatment; history of antidepressant and opioid co- treatment, history of total CK > 80 and < 190 Social History Social History Type Response Smoking Status 10 or more cigarette s (1/2 pack or more)/day in last 30 days entered on: 11/20/22 Sex Patient Care team information Care Team Personnel Name: Angelo Ma RN Position: S RN Member Role: Primary Care Nurse Name: Brigido Dietrich MD Position: Reference Physician Member Role: PCP Address: Address: [address] [place] [id number] Name: Renetta Barger RN Position: S RN Member Role: Primary Care Nurse Care Team Related Persons Name: COURT SAHA Address: home [address] [place] [address] Name: ZEV SAHA Address: home [address] [place] [address]
--- OUTSIDE RECORDS SUMMARY | 2024-05-18 16:50 | XMS_ITS | Continuity of Care Document ---
Author Organization [facility] Address [address] [facility] [address], [address]t [place] [address]- Care Team Providers Care Curator [employer] Name Role Phone Brigido Dietrich MD Primary Care Physician Encounter [facility] [id number] Date(s): 08/04/23 - 09/03/23 [facility] [facility] [address], 4th [address] [place], [place] [address] Attending Physician: Jenny Kay Admitting Physician: AdmtrJenny Referring Physician: Admtr, ArRosmery Allergies, Adverse Reactions, Alerts Substance Reaction Severity [...] 10/14/2319:45:00 EST, Aerosol, Route to Pharmacy Electronically, [id number], [facility]/pharmacy #[id number], 173, cm, 10/14/22 19:02:00 EST, Heig... Start [...] RN Member Role: Primary Care Nurse Name: Brigdio Dietrich MD Position: Reference Physician Member Role: PCP Address: Address: [address] [place] [address] Name: Renetta Barger RN Position: [facility] ED RN W/OE and Tasks Member Role: Primary Care Nurse Care Team Related Persons Name: COURT SAHA Address: home [address] [place] [address] Name: ZEV SAHA Address: home [address] [place] [address]
--- OUTSIDE RECORDS SUMMARY | 2024-05-18 16:50 | XMS_ITS | Continuity of Care Document ---
Author Organization [facility] Address [address] [facility], [address] [place] [address]- Care Team Providers Care Dollyman Name Role Phone Brigido Dietrich MD Primary Care Physician Encounter [facility] Date(s): 06/23/23 - 09/03/23 [facility] [email or web address] [facility] [address] [facility], 4th [address] [place], [place] [address] Attending Physician: Giuliana Elias MD Admitting Physician: [...] 10/14/2319:45:00 EST, Aerosol, Route to Pharmacy Electronically, [id number], [facility]/pharmacy #[id number], 173, cm, 10/14/22 19:02:00 EST, Heig... Start [...] Reference Physician Member Role: PCP Address: Address: [address] [place] [address] Name: Renetta Barger RN Position: [facility] ED RN W/OE and Tasks Member Role: Primary Care Nurse Care Team Related Persons Name: COURT SAHA Address: [address] [place] [address] Name: ZEV SAHA Address: home [address] [place] [address]
--- OUTSIDE RECORDS SUMMARY | 2024-05-18 16:50 | XMS_ITS | Continuity of Care Document ---
Author Organization [facility] Kiersten cardoza [facility] Address [address] [place] [address], [address] [place] [address]- Care Team Providers Care Lawn Care Technician Name Role Phone Karlo TURNER, Brigido Primary Care Physician [phone] Encounter [facility] Date(s): 11/24/23 - 12/24/23 [facility] Kiersten [facility] [address] [facility], 4th [address] [place], [place] [address] Attending Physician: Jenny Kay Admitting Physician: AdmtrJenny [...] 10/14/2319:45:00 EST, Aerosol, Route to Pharmacy Electronically, [id number], [facility]/pharmacy #[id number], 173, cm, 10/14/22 19:02:00 EST, Heig... Start [...] Reference Physician Member Role: PCP Address: Address: [address] [place] [address] Name: Renetta Barger RN Position: S RN Member Role: Primary Care Nurse Care Team Related Persons Name: COURT SAHA Address: home [address] [place] [address] Name: ZEV SAHA Address: home [address] [place] [address]
[2024-05-18 17:13] VITALS: BP 136/94; PULSE 78; RESP 18; TEMP 36.9; O2SAT 100
[2024-05-18 17:15] VITALS: BMI 16.9
--- NOTE | 2024-05-18 17:23 | P.CONHOSP_ITS ---
History of Present Illness Data of Consult Service Date: 05/18/24 Requesting physician: Aurelio Hermosillo Primary Care Provider: DO REMINGTON Little Reason for consult: medical H&P 38-year-old female with history of Jennifer Danlos syndrome, osteogenesis imperfecta, myofascial pain syndrome, migraines, juvenile osteoporosis, asthma, and mood disorder with history of urinary retention requiring Joseph catheterization that was removed about 1 year ago and history of rectocele admitted to adult Psychiatry from [facility] following an intentional Flexeril overdose with consult placed to hospitalist service for medical H&P. She has multiple complaints, most chronic. She has had numerous fractures including wrist, compression fracture of the lumbar spine, left knee, among others requiring multiple corrective surgeries and as a result has had difficulties with chronic pain. She had been following with her primary care provider who seems to of abruptly discontinued her narcotic medications. The patient was previously taking OxyContin 30 mg daily in addition to 30 mg oxycodone q.i.d. it seems on review of UTILIZATION REVIEW COORDINATOR, there was a taper from 30 mg to 15 mg IR oxycodone but then was abruptly discontinued for unknown reason. She is also reporting chronic pain in the left wrist as well as a left knee following fractures/surgeries as well as generlized midline tender of the spine from the neck down. She does have upcoming appointment with Dr. Owusu in pain management on May 24. She does nto wish for us to reach out to him. She is currently also taking gabapentin but low dose for pain management. States she has tried as on arise without good effect. Patient denies any illicit drug use or inappropriately taking her medications. However no information from PCP is available. She is reporting acute on chronic pain in the lumbar spine with some saddle paresthesias and paresthesias in the left lower extremity. She is also reporting urinary retention though states she has had this in the past. She also states that she is concerned about a flight attendant inflight services ?tumor?. It appears on last admission, flight attendant inflight services consult was placed for this and she declined consult. She has no out patient follow-up with flight attendant inflight services. Denies any unsafe sex practices. No dysuria, hematuria, increased frequency. She is also concerned about unilateral swelling of the left lower extremity. Denies calf tenderness. No recent travel or history of blood clots. She reports she recently quit cigarette smoking but does vape often and declines patch for replacement therapy. No cigarette smoking = while at [facility], hematology studies unremarkable. Renal function normal, electrolyte levels normal. Urine tox screen was negative. Due to Flexeril overdose, poison control was consulted recommending serial EKGs. She had initially been tachycardic but heart rate normalized to the 70s and was noted to be in sinus rhythm. There was no evidence of dysrhythmia or toxidrome and she was ultimately medically cleared and discharged to our facility for further psychiatric care. Review of Systems Review of Systems: General: No fevers, malaise, unintentional weight loss HEENT: No blurred vision, diplopia. No sore throat, nasal congestion, rhinorrhea, sinus pain, ear pain Cardiovascular: No chest pain, palpitations, or leg edema Respiratory: No shortness of breath, wheezing, cough GI: No abdominal pain, nausea, vomiting, diarrhea, constipation, melena, hematochezia : + urinary retention. 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 No vaginal discharge MSK: No myalgia. see hpi Neuro: No headaches, weakness, paresthesias Skin: No rashes or lesions FOR[facility]LY [facility], [facility] Medical History Rectocele Juvenile osteoporosis Compression fx, lumbar spine History of wrist fracture Myofascial pain syndrome Urinary retention Anxiety and depression Osteogenesis imperfecta Jennifer-Danlos disease Social History Household Members: Family Household Members Other:: Pt's mother and brother Housing: House Do you presently have visiting nurse or other home services: No Alcohol intake: former Patient Tobacco Use Status: Former Tobacco user Tobacco use type: Cigarette Cigarette Packs Per Day: 2 Cigarettes Per Day: 40.0 Years Smoked: Over 20 years Smoked in Last 30 Days: No e-Cigarette/Vaping Use: Currently Using Frequency of e-Cigarette/Vaping Use: Pt reports daily nicotine vaping use thro ughout the day Patient Interested in Nicotine Replacement: No Second Hand Smoke Exposure: Yes Use of substances other than those prescribed or required for medical reasons: No Substance Use Type: Opiates Currently Displaying Signs/Symptoms of Drug Intoxication Withdrawal: No Any prior treatment program specific to substance use: No Have you been hit, kicked, punched, or otherwise hurt by someone within the past year? If so, by whom?: No Do you feel safe in your current relationship?: Yes Is there a partner from a previous relationship who is making you feel unsafe now?: No Are you made to feel afraid or neglected: No Advance Directives: No Advance Directives Information Provided: No Do you have a plan to hurt others: No Plan Recently lost weight without trying: Unsure Nutrition Risks: Anorexia Patient : No : No Poor oral hygiene: Yes service: No Sexual orientation: Straight/Heterosexual Meds Allergies Allergy/AdvReac Type Severity Reaction Status Date / Time azithromycin Allergy Itching Verified 11/03/23 13:39 nitrofurantoin Allergy Itching Verified 11/03/23 13:39 [From Macrodantin] Active Medications: Current Medications Acetaminophen (Acetaminophen 325 Mg Tablet) 650 mg PO Q6H PRN PRN Reason: Headache/Pain Mild Scale (1-3) Al Hydroxide/Mg Hydroxide (Magnesium Hydrox/Alum Hydrox 30 Ml Oral.Susp) 30 ml PO Q6H PRN PRN Reason: Heartburn/Nausea Hydroxyzine HCl (Hydroxyzine Hcl 25 Mg Tablet) 25 mg PO Q6H PRN PRN Reason: Anxiety Magnesium Hydroxide (Milk Of Magnesia 30 Ml Oral.Susp) 30 ml PO DAILY PRN PRN Reason: Constipation Nicotine (Nicotine 21 Mg Patch.Td24) 21 mg TRANSDERMA DAILY PRN PRN Reason: smoking cessation Nicotine Polacrilex (Nicotine Polacrilex 2 Mg Gum) 4 mg BUCCAL Q2H PRN PRN Reason: Nicotine Cravings Trazodone HCl (Trazodone Hcl 50 Mg Tablet) 50 mg PO BEDTIME MRX1 PRN PRN Reason: Insomnia Home Medications ?Medication ?Instructions ?Recorded ?Confirmed ?Last Taken ?Type albuterol sulfate 90 mcg/actuation 2 puff inhalation Q4H PRN wheezing 10/27/23 10/27/23 Unknown History aerosol inhaler cyclobenzaprine 10 mg tablet 10 mg PO TID 10/27/23 10/27/23 10/27/23 14:00 History ibuprofen 800 mg tablet 800 mg PO TID PRN Pain 10/27/23 10/27/23 Unknown History lorazepam 1 mg tablet 1 mg PO DAILY PRN Anxiety 10/27/23 10/27/2310/26/24 08:00 History magnesium oxide 500 mg PO DAILY 10/27/23 10/27/23 10/27/23 08:00 History oxycodone 30 mg tablet 30 mg PO QID 10/27/23 10/27/23 10/27/23 14:00 History oxycodone 30 mg tablet,crush 30 mg PO DAILY 10/27/23 10/27/23 10/26/23 20:00 History resistant,extended release 12 hr (OxyContin) Physical Exam Vital Signs and Narrative: Vital Signs: Last Vital Signs Temp 98.5 F 05/18/24 17:13 Pulse 78 05/18/24 17:13 Resp 18 05/18/24 17:13 BP 136/94 H 05/18/24 17:13 Pulse Ox 100 05/18/24 17:13 O2 Del Method Room Air 05/18/24 17:13 BMI result Body Mass Index 16.9 Constitutional - Awake and Alert, No apparent distress Eyes - PERRLA, EOMI Cardiovascular - S1S2, RRR, No edema Respiratory - Normal lung expansion, Normal respiratory effort, No respiratory distress, CTA bilaterally Gastrointestinal - NT / ND; +BS; No rebound or guarding KID CLUB ATTENDANT: deferred Extremities - no calf tenderness bilaterally, no swelling Musculoskeletal - Normal inspection, ttp entire midline spine from cervical spine to sacrum and left paraspinal tenderness of the lumbar spine Skin - Warm/Dry. Multiple areas of postsurgical scarring Neurological - Alert & oriented x3, symmetric pupil dilation but reactive to light and accommodation otherwise CN II-XII in tact, 5/5 strength BUE and BLE, decreased sensation lateral aspect of the left lower extremity Assessment and Plan (1) Routine medical exam: Status: Acute (2) Low back pain: Status: Acute (3) Paresthesias: Status: Acute (4) Urinary retention: Status: Acute Plan 38-year-old female with history of Jennifer Danlos syndrome, osteogenesis imperfecta, myofascial pain syndrome, migraines, juvenile osteoporosis, asthma, and mood disorder with history of urinary retention requiring Joseph catheterization that was removed about 1 year ago and history of rectocele admitted to adult Psychiatry from [facility] following an intentional Flexeril overdose with consult placed to hospitalist service for medical H&P. #Mood disorder/flexeril overdose -plan per psychiatry -pupillary dilatation due to Flexeril overdose, appropriate accommodation and reactivity to light # acute on chronic low back pain with urinary retention and paresthesias -MRI lumbar spine ordered #CHronic pain syndrome/myofacial pain syndomre/osteogenesis imperfecta/juvenile osteoporosis -has osteogenesis imperfecta her with juvenile osteoarthritis and a number of fractures as well as myofascial pain syndrome -pt abruptly discontinued from opiate therapy, outside of window for withdrawal -however has very valid reasons to have chronic pain. Given history of opioid dependence and chronic pain, recommend starting oxycontin 10mg BID and oxycodone 5mg q6h prn for severe pain -Continue gabapentin, recommend gradual increase in dose as currently only on 100mg on review of external pharmacy -reports has tried SNRI therapy with no effect -outpt follow up with Dr. Owusu on 05/24 as scheduled #Unspecified asthma -no acute exacerbation, albuterol p.r.n. # left lower extremity swelling -no calf tenderness. We will check venous duplex of the left lower extremity rule out DVT #Urinary retention/hx of prolapse -check bladder scan and postvoid residual for retention and check BMP to evaluate renal function -If bladder scan >500, straight cath prn -consider urology/flight attendant inflight services consult -needs outpt flight attendant inflight services follow up. Has refused KID CLUB ATTENDANT consult inpt Will follow for results
--- NOTE | 2024-05-18 18:41 | PC.ADMIT ---
38 y/o female admitted to on a CV from [facility] following an intentional overdose of approximately 15 tablets of 10mg Cyclobenzapine tablets. Pt reported that the overdose was related to feeling overwhelmed with chronic pain following being taken off Oxycodone by her PCP following an overdose in October 2023. Pt reported she immediately regretted the overdose, and informed her mother who then called 911. Pt reported she was thankful that she survived, and stated that she just couldn't take the pain anymore . Pt has history of depression and prior suicide attempts. Pt reported last psych admission was at [facility] [place] 2023 following an intentional overdose of Oxycodone. Pt has a reported hx of osteogenesis imperfecta, juvenile osteoporosis, asthma, and myofascial pain syndrome. Pt denied current thoughts to self harm and reported she could seek out staff if feeling unsafe. Pt does have a lengthy surgical history that includes multiple bladder surgeries. Pt reported she had a [place] bladder sling placed in 2010. During skin check, pt noted to have mild edema to LLE and lower back. Pt also noted difficulty urinating, and pt stated that I never feel the need to go . Hospitalist evaluated pt. New orders received for U/S, urine sample, bladder scan, and MRI. U/S obtained. Bladder scan >739ml. Pt sent to MRI at 1910. Hospitalist made aware of bladder scan and status of testing.
[2024-05-18 18:57] LABS: Anion Gap 11 (12-20); Blood Urea Nitrogen 15 mg/dL (9-16); Calcium 9.7 mg/dL (8.4-10.2); Carbon Dioxide 21 mmol/L (22-29); Chloride 113 mmol/L (96-108); Creatinine Clr Calc Pharmacy 61.3; Estimated Glomerular Filt Rate > 60; Glucose Random 137 mg/dL (60-115); Potassium 3.9 mmol/L (3.3-5.1); Sodium 141 mmol/L (135-145)
--- NOTE | 2024-05-18 19:25 | PM.PSYDC ---
DS: Providers Provider Date of Service: 05/18/24 Date of admission: 05/18/24 16:46 Date of discharge: 05/18/24 Primary care physician: Cassia Alanis DO Consults: 05/18/24 17:07 Consult to Hospitalist Routine Comment: Consulting Provider: Hospitalist Reason For Exam: admission physical DS: Diagnosis Discharge Diagnosis (1) Routine medical exam: Status: Acute (2) Low back pain: Status: Acute (3) Paresthesias: Status: Acute (4) Urinary retention: Status: Acute DS: Medications Discharge Medications Home Medications: Home Medications ?Medication ?Instructions ?Recorded ?Confirmed albuterol sulfate 90 mcg/actuation 2 puff inhalation Q4H PRN wheezing 10/27/23 10/27/23 aerosol inhaler cyclobenzaprine 10 mg tablet 10 mg PO TID 10/27/23 10/27/23 ibuprofen 800 mg tablet 800 mg PO TID PRN Pain 10/27/23 10/27/23 lorazepam 1 mg tablet 1 mg PO DAILY PRN Anxiety 10/27/23 10/27/23 magnesium oxide 500 mg PO DAILY 10/27/23 10/27/23 oxycodone 30 mg tablet 30 mg PO QID 10/27/23 10/27/23 oxycodone 30 mg tablet,crush 30 mg PO DAILY 10/27/23 10/27/23 resistant,extended release 12 hr (OxyContin) Previous Rx's ?Medication ?Instructions ?Recorded hydroxyzine HCl 25 mg tablet 25 mg PO Q6H PRN Anxiety 30 days 11/02/23 #60 tabs trazodone 100 mg tablet 100 mg PO BEDTIME PRN insomnia 30 11/02/23 days #30 tabs Mental Status Exam Mental Status Exam Patient Appearance: Appropriate Patient Orientation: Person and Situation Level of Consciousness: Awake and Appropriate Patient Behavior: Appropriate Mood Description: Calm Affect Description: Constricted Ability to Follow Directions: Fair Speech Pattern: Coherent Hallucinations: None Delusions: Not Present Thought Process: Linear Thought Content: positive for Circumstantial Judgement: Poor Data Data Completed and Pending Completed studies during hospitalization [Text1]: 05/18/24 18:32 Sodium 141 Potassium 3.9 D Chloride 113 H Carbon Dioxide 21 L Anion Gap 11 L BUN 15 Creatinine 0.77 Estim Creat Clear Calc 61.3 Estimated GFR > 60 Random Glucose 137 H Calcium 9.7 DS: Summary Hospital Course Hospital Course: Transferred from [facility] after Felxeril overdose, while medically assessed, she had several problems that [facility] medical team decided to transfer to medicine Time spent discussing smoking cessation with patient: 3 to 10 minutes Status at Discharge Cognitive/behavioral status at discharge: Stable Functional status at discharge: independent ambulation Overall status at discharge: patient is not back to baseline Time Spent with Patient Time attestation: Total time managing care of this patient today ____ minutes. Time spent: Less than 30 minutes Discharge Plan Discharge Anticipated Discharge Date/Time: 05/18/24 19:27 Patient Disposition: Xfer Acute Care Hospital Discharge Diagnosis: Mood disorder S/P flexeril overdose Referrals: Cassia Alanis DO [Primary Care Provider] - 1 Week Discharge Medications: New oxycodone [OxyContin] 10 mg Tablet,Oral Only,Ext.Rel.12 Hr 10 mg PO BID Qty: 14 0RF Rx Instructions: Partial Fill upon patient request. trazodone 50 mg Tablet 50 mg PO BEDTIME MRX1 PRN (Reason: Insomnia) 14 Days Qty: 14 0RF magnesium hydroxide [Milk of Magnesia] 400 mg/5 mL Suspension 30 ml PO DAILY PRN (Reason: Constipation) 100 Days Qty: 355 0RF oxycodone 5 mg Tablet 5 mg PO Q6H PRN (Reason: Pain, Severe (Pain Scale 7-10)) 14 Days Qty: 14 0RF Rx Instructions: Partial Fill upon patient request. MAG-AL 200-200 mg/5 mL Suspension 30 ml PO Q6H PRN (Reason: Heartburn/Nausea) 14 Days Qty: 100 0RF Continued albuterol sulfate 90 mcg/actuation HFA aerosol inhaler 2 puff INHALATION Q4H PRN (Reason: wheezing) Qty: 1 0RF Discontinued cyclobenzaprine 10 mg tablet 10 mg PO TID ibuprofen 800 mg tablet 800 mg PO TID PRN (Reason: Pain) magnesium oxide 500 mg magnesium tablet 500 mg PO DAILY oxycodone 30 mg tablet 30 mg PO QID lorazepam 1 mg tablet 1 mg PO DAILY PRN (Reason: Anxiety) oxycodone [OxyContin] 30 mg tablet,oral only,ext.rel.12 hr 30 mg PO DAILY hydroxyzine HCl 25 mg Tablet 25 mg PO Q6H PRN (Reason: Anxiety) 30 Days Qty: 60 0RF trazodone 100 mg tablet 100 mg PO BEDTIME PRN (Reason: insomnia) 30 Days Qty: 30 0RF Discharge Orders: Discharge Order (Routine); Ordered 05/18/24 Ordered By: Lucius Le Activity on Discharge: As tolerated Stand Alone Forms: Patient Portal Discharge page Print Language: Danish Care Plan Goals: PATIENT TRANSFERRED TO MEDICINE Health Concerns: PATIENT TRANSFERRED TO MEDICINE Plan of Treatment: PATIENT TRANSFERRED TO MEDICINE Assessment: Adult female s/p overdose on Felxeril transferred to medicine
--- NOTE | 2024-05-27 17:56 | HO.PSYADMNOT ---
HPI Date of Service: 05/18/24 Chief Complaint: Unspecified Depressive DO Sources of Information: patient interviewed, chart reviewed and crisis/core team assessment reviewed HPI Narrative: admission note for 05/18/24 38 y/o female admitted to on a CV from [facility] following an intentional overdose of approximately 15 tablets of 10mg Cyclobenzapine tablets. Pt reported that the overdose was related to feeling overwhelmed with chronic pain following being taken off Oxycodone by her PCP following an overdose in October 2023. Pt reported she immediately regretted the overdose, and informed her mother who then called 911. Pt reported she was thankful that she survived, and stated that she just couldn't take the pain anymore . Pt has history of depression and prior suicide attempts. Pt reported last psych admission was at [facility] in October 2023 following an intentional overdose of Oxycodone. Pt has a reported hx of osteogenesis imperfecta, juvenile osteoporosis, asthma, and myofascial pain syndrome. Pt denied current thoughts to self harm and reported she could seek out staff if feeling unsafe. Pt does have a lengthy surgical history that includes multiple bladder surgeries. Pt reported she had a [place] bladder sling placed in 2010. During skin check, pt noted to have mild edema to LLE and lower back. Pt also noted difficulty urinating, and pt stated that I never feel the need to go . Hospitalist evaluated pt. New orders received for U/S, urine sample, bladder scan, and MRI. U/S obtained. Bladder scan >739ml. Pt sent to MRI at 1910. Hospitalist made aware of bladder scan and status of testing. On admission, patient assessed by hospitalist VINICIO who felt patient needed to be admitted to medical service and patient was discharged and transferred to medical floor. Past Psychiatric History: One IPLOC at [place] [facility] primarily for eating disorder at age 18. Patient reports multiple hospitalizations for severe low weight and protein in her urine but these hospitalizations were on medical units. In 2021 the patient was in [facility] Emergency room and seen by AB and crisis after she was found wandering the streets she was expressing paranoid ideation stating that her family was trying to poison her she also reported at that time hearing evil voices that are head she reports she was talking to Kade and making statements I am and I am dying they are trying to kill me Medical Evaluation Reviewed: Hospitalist Mercedez Pending [facility] Medical History (Updated 05/26/24 @ 01:46 by Wendy Dougherty CNP) Benzodiazepine dependence Rectocele Juvenile osteoporosis Compression fx, lumbar spine History of wrist fracture Myofascial pain syndrome Urinary retention Anxiety and depression Osteogenesis imperfecta Jennifer-Danlos disease Family History: Patient reports she grew up in [facility] and live with her mother and father and 2 brothers her father of cancer in 2021 she states her older brother has anxiety and her mother has depression Social History: Patient reports she did have friends growing up and she was straight a student until she left school at the age of 16 due to anorexia she had to drop out of school due to multiple admissions at [facility] she is socially isolated currently Trauma History: Multiple surgeries Diagnostics Vital Signs (24Hr): BMI result Body Mass Index 16.9 Labs 05/18/24 18:32 Imaging Radiology Impressions: ITS Impressions Venous Duplex 05/18/24 18:40 IMPRESSION: No evidence of deep venous thrombosis involving the left lower extremity. Electronically signed by: Adonis Montiel MD 05/18/2024 09:01 PM EDT RP Lumbar Spine MRI 05/18/24 19:27 IMPRESSION: No spinal canal or neural foraminal stenosis at any level. Significantly distended urinary bladder. Apparent dysmorphic appearance of the upper sacral posterior elements on axial T1-weighted sequence may be artifactual and related to imaging plane rather than spina bifida occulta, however would be better diagnostically assessed on CT. Electronically signed by: Daksha English MD 05/18/2024 07:56 PM EDT RP Meds/Allergies Meds Home Medications ?Medication ?Instructions ?Recorded ?Confirmed ?Type albuterol sulfate 90 mcg/actuation 2 puff inhalation QID PRN 05/18/24 05/26/24 History aerosol inhaler Shortness Of Breath gabapentin 100 mg capsule 100 mg PO DAILY PRN nerve pain 05/18/24 05/26/24 History gabapentin 100 mg capsule 200 mg PO BEDTIME 05/18/24 05/26/24 History ibuprofen 800 mg tablet 800 mg PO TID PRN Pain (Scale 05/18/24 05/26/24 History Score 4-6) lorazepam 0.5 mg tablet 0.25 mg PO BID PRN anxiety 05/18/24 05/26/24 History ascorbic acid (vitamin C) 1,000 mg 1,000 mg PO DAILY 05/26/24 05/26/24 History tablet (Vitamin C) Allergies Allergies Allergy/AdvReac Type Severity Reaction Status Date / Time azithromycin Allergy Itching Verified 05/25/24 19:31 levofloxacin [From Levaquin] Allergy Nightmare Verified 05/25/24 19:31 nitrofurantoin Allergy Itching Verified 05/25/24 19:31 [From Macrodantin] Mental Status Exam Mental Status Exam Narrative: Not assessed; patient transferred to medical floor Assessment & Plan Assessment & Plan (1) Mood disorder: Status: Acute Code(s): F39 - Unspecified mood [affective] disorder (2) Osteogenesis imperfecta: Status: Acute Code(s): Q78.0 - Osteogenesis imperfecta (3) Jennifer-Danlos disease: Status: Acute Code(s): Q79.60 - Jennifer-Danlos syndrome, unspecified (4) Chronic pain syndrome: Status: Acute Code(s): G89.4 - Chronic pain syndrome (5) Intentional overdose: Status: Acute Qualifiers: Encounter type: initial encounter Qualified Code(s): T50.902A - Poisoning by unspecified drugs, medicaments and biological substances, intentional self-harm, initial encounter Code(s): T50.902A - Poisoning by unspecified drugs, medicaments and biological substances, intentional self-harm, initial encounter Plan 38 y/o female admitted to on a CV from [facility] following an intentional overdose of approximately 15 tablets of 10mg Cyclobenzapine tablets. Pt reported that the overdose was related to feeling overwhelmed with chronic pain following being taken off Oxycodone by her PCP following an overdose in October 2023. Pt reported she immediately regretted the overdose, and informed her mother who then called 911. Pt reported she was thankful that she survived, and stated that she just couldn't take the pain anymore . Pt has history of depression and prior suicide attempts. Pt reported last psych admission was at [facility] in October 2023 following an intentional overdose of Oxycodone. Pt has a reported hx of osteogenesis imperfecta, juvenile osteoporosis, asthma, and myofascial pain syndrome. Pt denied current thoughts to self harm and reported she could seek out staff if feeling unsafe. Pt does have a lengthy surgical history that includes multiple bladder surgeries. Pt reported she had a [place] bladder sling placed in 2010. During skin check, pt noted to have mild edema to LLE and lower back. Pt also noted difficulty urinating, and pt stated that I never feel the need to go . Hospitalist evaluated pt. New orders received for U/S, urine sample, bladder scan, and MRI. U/S obtained. Bladder scan >739ml. Pt sent to MRI at 1910. Hospitalist made aware of bladder scan and status of testing. On admission, patient assessed by hospitalist VINICIO who felt patient needed to be admitted to medical service and patient was discharged and transferred to medical floor. Patient educated on: other (Hospitalist PA discussed comorbidities with patient) Reason for continued inpatient stay Substantial Risk for: rapid decompensation and med/psych decompensation Statement Statement: I have reviewed the history and physical and performed a pertinent examination on my patient. No changes have occurred unless specified. If the History and Physical was not performed prior to admission, the Hospitalist's service will be consulted for completing the admission physical. Time Spent With Patient Time: Total time managing care of this patient today ____ minutes.
== END 2024-05-18 20:11 | disposition short-term general hospital (02) | DRG 885 ==
PROVIDERS: Physician Assistant; Admitting Provider Psychiatry & Neurology Psychiatry; PCP Family Medicine; Visit Provider Psychiatry & Neurology Psychiatry
DX: F39 Unspecified mood [affective] disorder (principal); Q79.60 Ehlers-Danlos syndrome, unspecified; Q78.0 Osteogenesis imperfecta; R33.9 Retention of urine, unspecified; T48.1X4A Poisoning by skeletal muscle relaxants [neuromuscular blocking agents], undetermined, initial encounter; M79.18 Myalgia, other site; Z87.891 Personal history of nicotine dependence; Z79.899 Other long term (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
CPT/HCPCS: 36415; 72148; 80048; 80307; 81003; 83735; 85025; 93971; C1758; J1650; J2405; S9485

== ENCOUNTER → 2024-05-18 16:46 | Outpatient (BNV) | payer MEDICARE, MEDICAID, SELFPAY | PROVIDERS: Admitting Provider Psychiatry & Neurology Psychiatry; PCP Family Medicine; Visit Provider Psychiatry & Neurology Psychiatry | DX: F39 Unspecified mood [affective] disorder (principal); T50.902A Poisoning by unspecified drugs, medicaments and biological substances, intentional self-harm, initial encounter; Q78.0 Osteogenesis imperfecta; Q79.60 Ehlers-Danlos syndrome, unspecified; G89.4 Chronic pain syndrome | CPT/HCPCS: 99232; 99499 ==

== ENCOUNTER → 2024-05-18 16:46 | Outpatient (BNV) | payer MEDICARE, MEDICAID, SELFPAY | PROVIDERS: Admitting Provider Psychiatry & Neurology Psychiatry; PCP Family Medicine; Visit Provider Physician Assistant | DX: R33.9 Retention of urine, unspecified (principal); Z00.00 Encounter for general adult medical examination without abnormal findings; M54.50 Low back pain, unspecified; R20.2 Paresthesia of skin | CPT/HCPCS: 99222 ==

== ENCOUNTER 2024-05-18 20:15 | Inpatient (IN) | payer MEDICARE, MEDICAID, SELFPAY ==
--- NOTE | 2024-05-18 20:00 | P.HPHOSP_ITS ---
History of Present Illness Date of Service: 05/18/24 Attending physician on admission: Sheldon Christopher Chief Complaint: urinary min 38-year-old female with history of Jennifer Danlos syndrome, osteogenesis imperfecta, myofascial pain syndrome, migraines, juvenile osteoporosis, asthma, and mood disorder with history of urinary retention requiring Van catheterization that was removed about 1 year ago and history of rectocele admitted to adult Psychiatry from [facility] following an intentional Flexeril overdose transferring from to [facility] for further medical management. She had been following with her primary care provider who seems to of abruptly discontinued her narcotic medications. The patient was previously taking OxyContin 30 mg daily in addition to 30 mg oxycodone q.i.d. it seems on review of FOREST PATHOLOGY PROFESSOR, there was a taper from 30 mg to 15 mg IR oxycodone but then was abruptly discontinued for unknown reason. She is also reporting chronic pain in the left wrist as well as a left knee following fractures/surgeries as well as generlized midline tender of the spine from the neck down. She does have upcoming appointment with Dr. Owusu in pain management on May 24. She does nto wish for us to reach out to him. Unfortunately due to her chronic unmanaged pain, the patient made an attempt at suicide by overdosing on a handful of 10mg flexeril. Due to Flexeril overdose, poison control was consulted recommending serial EKGs. She had initially been tachycardic but heart rate normalized to the 70s and was noted to be in sinus rhythm. There was no evidence of dysrhythmia or toxidrome and she was ultimately medically cleared and discharged to our facility for further psychiatric care. Unfortuantely on arrival, patient has multiple complaints, most concerning urinary retention with abd discomfort and distention. She is also reporting acute on chronic midline low back pain. She is reporting saddle paresthesias as well as paresthesias in the medial aspect of the left lower leg. No bowel incontinence or recent injury reported. She has had numerous fractures including wrist, compression fracture of the lumbar spine, left knee, among others requiring multiple corrective surgeries and as a result has had difficulties with chronic pain. . She is currently also taking gabapentin but low dose for pain management. States she has tried as on arise without good effect. Patient denies any illicit drug use or inappropriately taking her medications. However no information from PCP is available to explain the abrupt discontinuation of her oxycontin/oxycodone. She does report upcoming appt with Dr. Owusu in pain management of May 24 but does not with for us to reach out to him- reports wanting to start with a fresh slate. Other complaints include concern for a physician gynecologist tumor states she feels a bulge. Has not followed with outpt HEAD STILL OPERATOR and had consult placed during recent psychiatric admission earlier this year and declined consult. She does have history of rectocele and other prolapse. Denies any unsafe sex practices, vaginal dischar ge, dysuria, hematuria, increased urinary frequency, fevers or chills. She is also concerned about unilateral swelling of the left lower extremity but denies any calf tenderness. No recent travel or history of blood clots. Venous duplex was performed while patient on M5 which was negative for DVT. She will be transferred to Medicine for further evaluation and management of multiple acute medical issues including urinary retention with Van catheter placed on unit given 800 mL of retained urine noted on bladder scan as well as further evaluation and management of acute on chronic low back pain. While at [facility], hematology studies unremarkable. Renal function was within normal limits with a normal electrolyte levels. Urine tox screen was negative. Review of Systems Review of Systems: Yes all other systems are reviewed and are negative [facility] Medical History Rectocele Juvenile osteoporosis Compression fx, lumbar spine History of wrist fracture Myofascial pain syndrome Urinary retention Anxiety and depression Osteogenesis imperfecta Jennifer-Danlos disease Social History Household Members: Family Household Members Other:: Pt's mother and brother Housing: House Do you presently have visiting nurse or other home services: No Alcohol intake: former Patient Tobacco Use Status: Former Tobacco user Tobacco use type: Cigarette Cigarette Packs Per Day: 2 Cigarettes Per Day: 40.0 Years Smoked: Over 20 years e-Cigarette/Vaping Use: Currently Using Second Hand Smoke Exposure: Yes Substance Use Type: Opiates Advance Directives: No Advance Directives Information Provided: No service: No Sexual orientation: Straight/Heterosexual Meds Allergies Allergy/AdvReac Type Severity Reaction Status Date / Time azithromycin Allergy Itching Verified 11/03/23 13:39 nitrofurantoin Allergy Itching Verified 11/03/23 13:39 [From Macrodantin] Active Medications: Current Medications Acetaminophen (Acetaminophen 325 Mg Tablet) 650 mg PO Q6H PRN PRN Reason: Pain, Mild (Pain Scale 1-3), fever or headache Calcium Carbonate (Calcium Carbonate 750 Mg Tab.Chew) 750 mg PO Q4H PRN PRN Reason: Heartburn Magnesium Hydroxide (Milk Of Magnesia 30 Ml Oral.Susp) 30 ml PO DAILY PRN PRN Reason: Constipation Melatonin (Melatonin 3 Mg Tablet) 6 mg PO BEDTIME PRN PRN Reason: Insomnia Oxycodone HCl (Oxycodone Hcl Er 10 Mg Tab.Er.12h) 10 mg PO BID XIOMY Oxycodone HCl (Oxycodone Hcl Immed Release 5 Mg Tablet) 5 mg PO Q6H PRN PRN Reason: Pain, Severe (Pain Scale 7-10) Polyethylene Glycol (Polyethylene Glycol 3350 17 Gm Powd.Pack) 17 gm PO DAILY XIOMY Sodium Chloride (0.9 % Sodium Chloride Flush 3 Ml Syringe) 3 ml IVFLUSH QSHIFT [facility] Home Medications ?Medication ?Instructions ?Recorded ?Confirmed ?Last Taken ?Type albuterol sulfate 90 mcg/actuation 2 puff inhalation QID PRN 05/18/24 05/18/24 Unknown History aerosol inhaler Shortness Of Breath cyclobenzaprine 10 mg tablet 10 mg PO TID 05/18/24 05/18/24 Unknown History escitalopram oxalate 10 mg tablet 10 mg PO DAILY 05/18/24 05/18/24 Unknown History escitalopram oxalate 5 mg tablet 5 mg PO DAILY 05/18/24 05/18/24 Unknown History gabapentin 100 mg capsule 100 mg PO DAILY PRN nerve pain 05/18/24 05/18/24 Unknown History gabapentin 100 mg capsule 200 mg PO BEDTIME 05/18/24 05/18/24 Unknown History hydroxyzine HCl 25 mg tablet 25 mg PO Q6H PRN Anxiety 05/18/24 05/18/24 Unknown History ibuprofen 800 mg tablet 800 mg PO TID PRN Pain (Scale 05/18/24 05/18/24 Unknown History Score 4-6) lorazepam 0.5 mg tablet 0.25 mg PO BID PRN anxiety 05/18/24 05/18/24 Unknown History Physical Exam Vital Signs and Narrative: Constitutional - Awake and Alert, No apparent distress Eyes - PERRLA, EOMI Cardiovascular - S1S2, RRR, No edema Respiratory - Normal lung expansion, Normal respiratory effort, No respiratory distress, CTA bilaterally Gastrointestinal - NT / ND; +BS; No rebound or guarding HEAD STILL OPERATOR: deferred Extremities - no calf tenderness bilaterally, no swelling Musculoskeletal - Normal inspection, ttp entire midline spine from cervical spine to sacrum and left paraspinal tenderness of the lumbar spine Skin - Warm/Dry. Multiple areas of postsurgical scarring Neurological - Alert & oriented x3, symmetric pupil dilation but reactive to light and accommodation otherwise CN II-XII in tact, 5/5 strength BUE and BLE, decreased sensation lateral aspect of the left lower extremity Assessment and Plan (1) Urinary retention: Status: Acute (2) Paresthesias: Status: Acute (3) Low back pain: Status: Acute Plan 38-year-old female with history of Jennifer Danlos syndrome, osteogenesis imperfecta, myofascial pain syndrome, migraines, juvenile osteoporosis, asthma, and mood disorder with history of urinary retention requiring Van catheterization that was removed about 1 year ago and history of rectocele admitted to adult Psychiatry from [facility] following an intentional Flexeril overdose with consult placed to hospitalist service for medical H&P. #Acute urinary retention -bladder scan on M5 revealed 800ml retained urine. Continue van catheter -given worsening midline low back pain with saddle anesthesia/paresthesias left lower extremity, MRI lumbar spine pending -check BMP -urology consult -avoid/minimize use of anticholinergics # acute on chronic low back pain with urinary retention and paresthesias -MRI lumbar spine ordered as above #CHronic pain syndrome/myofacial pain syndomre/osteogenesis imperfecta/juvenile osteoporosis -has osteogenesis imperfecta her with juvenile osteoarthritis and a number of fractures as well as myofascial pain syndrome -pt abruptly discontinued from opiate therapy, outside of window for withdrawal -however has very valid reasons to have chronic pain. Given history of opioid dependence and chronic pain, recommend starting oxycontin 10mg BID and oxycodone 5mg q6h prn for severe pain -Continue gabapentin, recommend gradual increase in dose as currently only on 100mg on review of external pharmacy -reports has tried SNRI therapy with no effect -add xiomy diclofenac. Hold on muscle relaxers following OD with urinary retention -outpt follow up with Dr. Owusu on 10/1 as scheduled #Mood disorder/flexeril overdose -transfer from due to medical issues. Will need care team consult to return to once medically cleared -pupillary dilatation due to Flexeril overdose, appropriate accommodation and reactivity to light -sitter consult #Unspecified asthma -no acute exacerbation, albuterol p.r.n. # left lower extremity swelling -final radiology report reading but appears to be negative for DVT on venous duplex # history of rectocele/organ prolapse -patient reports feeling a bulge in the urogenital area, she is concerned for physician gynecologist tumor . Has not followed outpt with physician gynecologist and refused exam during last admission -given urinary retention, requesting urology evaluate for prolapse DVT prophylaxis-Lovenox Full code med rec pending Patient requires inpatient stay at least 2 midnights for management of acute urinary retention with acute on chronic low back pain with associated saddle anesthesia paresthesias requiring advanced imaging, Van catheter placement and expert consultation. She will ultimately require transfer back to psychiatric floor given recent Flexeril overdose once medically cleared Quality Stroke Does the patient have a stroke diagnosis?: No VTE Prior VTE?: No VTE Risk Level:: Medical - moderate - high VTE Device Contraindication: N/A - Device Ordered VTE Drug Contraindication: Treatment Not Indicated
[2024-05-18 21:08] VITALS: BP 128/82; PULSE 67; RESP 18; TEMP 37; O2SAT 100
[2024-05-18 21:33] LABS: MANUAL DIFF FLAG NO
[2024-05-18 21:35] LABS: Basophils Percent Auto 0.7 % (0-2); Eosinophils Absolute Auto 0.1 X10*3/uL (0.0-0.4); Eosinophils Percent Auto 0.9 % (0-4); Hemoglobin 12.3 g/dl (12.0-16.0); Imm Gran Abs Auto 0.01 X10*3/uL (0.00-0.03); Imm Gran Pct Auto 0.2 % (0.0-0.4); Lymphocytes Absolute Auto 1.8 X10*3/uL (1.2-4.9); Lymphocytes Percent Auto 31.5 % (20-40); Mean Corpuscular HGB Conc 35.1 g/dl (31.0-35.0); Mean Corpuscular Hemoglobin 32.2 pg (27.0-33.0); Mean Corpuscular Volume 91.6 fL (80.0-98.0); Mean Platelet Volume 10.6 fL (9.4-12.3); Monocytes Absolute Auto 0.4 X10*3/uL (0.1-1.2); Monocytes Percent Auto 7.7 % (2-11); Neutrophils Absolute Auto 3.4 x10*3/uL (2.0-8.3); Platelet Count 164 X10*3/uL (160-400); Red Blood Count 3.82 X10*6/uL (4.20-5.50); Red Cell Distribution Width 12.2 % (11.0-16.0); White Blood Count 5.7 X10*3/uL (4.8-10.8)
[2024-05-18] MEDS: Gabapentin 100 MG CAPSULE PO (21:36)
[2024-05-18] MEDS: oxyCODONE HCl ER 10 MG TAB.ER.12H PO (21:36)
[2024-05-18 21:48] LABS: Anion Gap 13 (12-20); Blood Urea Nitrogen 19 mg/dL (9-16); Calcium 9.1 mg/dL (8.4-10.2); Carbon Dioxide 22 mmol/L (22-29); Chloride 114 mmol/L (96-108); Estimated Glomerular Filt Rate > 60; Glucose Random 126 mg/dL (60-115); Potassium 3.4 mmol/L (3.3-5.1); Sodium 146 mmol/L (135-145)
[2024-05-18] MEDS: 0.9 % Sodium Chloride Flush 3 ML SYRINGE IVFLUSH (22:57)
[2024-05-18 23:08] VITALS: BMI 16.9
[2024-05-18 23:54] VITALS: BP 118/78; PULSE 70; RESP 16; TEMP 36.7; O2SAT 97
[2024-05-19 00:17] LABS: Appearance Urine Clear; Color Urine Yellow; Glucose Urine UA Negative (Negative); Leukocyte Esterase Urine Negative (Negative); Nitrite Urine Negative (Negative); Urine Blood Negative (Negative); Urine Ketones 15 mg/dL (Negative); Urine Protein Negative (Neg-Trace)
[2024-05-19] MEDS: oxyCODONE HCl Immed Release 5 MG TABLET PO ×4 (00:32→21:59)
[2024-05-19] MEDS: LORazepam 0.5 MG TABLET 0.25 MG PO ×3 (00:33→21:58)
[2024-05-19 00:36] LABS: Amphetamine Screen Urine Not Detected (Not Detect); Barbiturates, Urine Not Detected (Not Detect); Benzodiazepines Screen Urine Not Detected (Not Detect); Buprenorphine Scr Not Detected (Not Detect); Cannabinoid Screen Urine Not Detected (Not Detect); Cocaine Screen Urine Not Detected (Not Detect); Fentanyl, urine POSITIVE (Not Detect); Methadone Screen, Urine Not Detected (Not Detect); Opiate Screen Urine Not Detected (Not Detect); Oxycodone Screen Urine Positive (Not Detect); Phencyclidine Screen Urine Not Detected (Not Detect)
[2024-05-19 04:00] VITALS: BP 113/74; PULSE 85; RESP 16; TEMP 36.7; O2SAT 94
[2024-05-19 07:02] LABS: MANUAL DIFF FLAG NO
[2024-05-19 07:24] LABS: Anion Gap 10 (12-20); Blood Urea Nitrogen 19 mg/dL (9-16); Calcium 8.7 mg/dL (8.4-10.2); Carbon Dioxide 23 mmol/L (22-29); Chloride 114 mmol/L (96-108); Creatinine Clr Calc Pharmacy 72.6; Estimated Glomerular Filt Rate > 60; Glucose Random 117 mg/dL (60-115); Sodium 144 mmol/L (135-145)
[2024-05-19 07:48] VITALS: BP 122/80; PULSE 67; RESP 16; TEMP 36.6; O2SAT 96
[2024-05-19 07:48] LABS: Basophils Absolute Auto 0.1 X10*3/uL (0.0-0.2); Basophils Percent Auto 0.9 % (0-2); Eosinophils Absolute Auto 0.1 X10*3/uL (0.0-0.4); Eosinophils Percent Auto 1.6 % (0-4); Hematocrit 32.4 % (37.0-47.0); Hemoglobin 11.1 g/dl (12.0-16.0); Imm Gran Abs Auto 0.01 X10*3/uL (0.00-0.03); Imm Gran Pct Auto 0.2 % (0.0-0.4); Lymphocytes Absolute Auto 2.8 X10*3/uL (1.2-4.9); Mean Corpuscular HGB Conc 34.3 g/dl (31.0-35.0); Mean Corpuscular Hemoglobin 31.7 pg (27.0-33.0); Mean Corpuscular Volume 92.6 fL (80.0-98.0); Monocytes Absolute Auto 0.4 X10*3/uL (0.1-1.2); Monocytes Percent Auto 7.4 % (2-11); Neutrophils Absolute Auto 2.4 x10*3/uL (2.0-8.3); Neutrophils Percent Auto 41.9 % (45-73); Platelet Count 154 X10*3/uL (160-400); Red Cell Distribution Width 12.3 % (11.0-16.0); White Blood Count 5.8 X10*3/uL (4.8-10.8)
[2024-05-19 07:49] VITALS: BP 122/80; PULSE 67; RESP 16; TEMP 36.6; O2SAT 96
[2024-05-19 08:05] LABS: Magnesium 1.8 mg/dL (1.6-2.6)
[2024-05-19 08:19] LABS: Potassium 2.9 mmol/L (3.3-5.1)
[2024-05-19] MEDS: oxyCODONE HCl ER 10 MG TAB.ER.12H PO ×2 (08:26→20:26)
[2024-05-19] MEDS: Gabapentin 100 MG CAPSULE PO ×3 (08:26→20:26)
[2024-05-19] MEDS: polyethylene glycoL 3350 17 GM POWD.PACK PO (08:26)
[2024-05-19] MEDS: Potassium Chloride Packet 20 MEQ PACKET 40 MEQ PO ×2 (08:27→20:26)
[2024-05-19] MEDS: 0.9 % Sodium Chloride Flush 3 ML SYRINGE IVFLUSH ×3 (08:28→20:26)
[2024-05-19 11:14] VITALS: BMI 16.9
--- NOTE | 2024-05-19 11:25 | HO.PM.IMPN ---
Subjective Subjective Date of Service: 05/19/24 Interval History: Seen and examined this Follow-up for urinary retention, paresthesias, Flexeril overdose Potassium levels low this morning Patient reports history of urinary retention, previous history of Van catheter. Review of Systems Review of Systems: Yes all other systems are reviewed and are negative Constitutional Constitutional: Denies chills and Denies fever(s) Cardiovascular Cardiovascular: Denies chest pain, Denies palpitations and Denies dyspnea Respiratory Respiratory: Denies cough and Denies dyspnea Gastrointestinal Gastrointestinal: Denies abdominal pain Endocrine Endocrine: Denies palpitations Physical Exam Vital Signs: Vital Signs: Last Vital Signs Temp 97.8 F 05/19/24 07:49 Pulse 67 05/19/24 07:49 Resp 16 05/19/24 07:49 BP 122/80 05/19/24 07:49 Pulse Ox 96 05/19/24 07:49 O2 Del Method Room Air 05/19/24 07:49 BMI result Body Mass Index 16.9 Const: General: cooperative, comfortable, no acute distress, alert and awake Nutritional Appearance: thin Orientation/consciousness: patient oriented x3 Resp: Effort & Inspection: normal respiratory effort, able to speak in complete sentences, no respiratory distress and no use of accessory muscles Auscultation: clear to auscultation bilaterally Cardio: Rate: regular rate GI: Inspection: No distended Palpation (GI): Soft to palpation and nontender Neuro: General: patient oriented x3, moves all extremities and CN's II-XI intact bilaterally Extrem: Other: slight swelling LLE compared to RLE Objective Data Active Medications Acetaminophen (Acetaminophen 325 Mg Tablet) 650 mg PO Q6H PRN PRN Reason: Pain, Mild (Pain Scale 1-3), fever or headache Al Hydroxide/Mg Hydroxide (Magnesium Hydrox/Alum Hydrox 30 Ml Oral.Susp) 30 ml PO Q6H PRN PRN Reason: Heartburn/Nausea Albuterol Sulfate (Albuterol Sulfate 90 Mcg 8 Gm Inhaler) 2 puff INHALE RQ4H PRN PRN Reason: Shortness of Breath/Wheezing Calcium Carbonate (Calcium Carbonate 750 Mg Tab.Chew) 750 mg PO Q4H PRN PRN Reason: Heartburn Gabapentin (Gabapentin 100 Mg Capsule) 100 mg PO TID [facility] Last Admin: 05/19/24 08:26 Dose: 100 mg Documented By: COTEMA Lorazepam (Lorazepam 0.5 Mg Tablet) 0.25 mg PO BID PRN PRN Reason: anxiety Last Admin: 05/19/24 00:33 Dose: 0.25 mg Documented By: LYSZ Magnesium Hydroxide (Milk Of Magnesia 30 Ml Oral.Susp) 30 ml PO DAILY PRN PRN Reason: Constipation Magnesium Hydroxide (Milk Of Magnesia 30 Ml Oral.Susp) 30 ml PO DAILY PRN PRN Reason: Constipation Melatonin (Melatonin 3 Mg Tablet) 6 mg PO BEDTIME PRN PRN Reason: Insomnia Oxycodone HCl (Oxycodone Hcl Er 10 Mg Tab.Er.12h) 10 mg PO BID [facility] Last Admin: 05/19/24 08:26 Dose: 10 mg Documented By: COTEMA Oxycodone HCl (Oxycodone Hcl Immed Release 5 Mg Tablet) 5 mg PO Q6H PRN PRN Reason: Pain, Severe (Pain Scale 7-10) Last Admin: 05/19/24 08:26 Dose: 5 mg Documented By: COTEMA Polyethylene Glycol (Polyethylene Glycol 3350 17 Gm Powd.Pack) 17 gm PO DAILY [facility] Last Admin: 05/19/24 08:26 Dose: 17 gm Documented By: ANDRYEMA Potassium Chloride (Potassium Chloride Packet 20 Meq Packet) 40 meq PO BID [facility] Stop: 05/19/24 21:01 Last Admin: 05/19/24 08:27 Dose: 40 meq Documented By: ANDRYEMA Sodium Chloride (0.9 % Sodium Chloride Flush 3 Ml Syringe) 3 ml IVFLUSH QSHIFT [facility] Last Admin: 05/19/24 08:28 Dose: 3 ml Documented By: ARMIN Labs 05/19/24 07:00 05/19/24 07:00 Labs: Laboratory Results - last 24 hr 05/18/24 05/18/24 05/19/24 00:07 21:25 07:00 MCV 91.6 92.6 MCH 32.2 31.7 MCHC 35.1 H 34.3 RDW 12.2 12.3 Plt Count 164 D 154 L MPV 10.6 11.0 Immature Gran % (Auto) 0.2 0.2 Neut % (Auto) 59.0 41.9 L Lymph % (Auto) 31.5 48.0 H [employer] % (Auto) 7.7 7.4 Eos % (Auto) 0.9 1.6 Baso % (Auto) 0.7 0.9 Lymph # (Auto) 1.8 2.8 [place] # (Auto) 0.4 0.4 Eos # (Auto) 0.1 0.1 Baso # (Auto) 0.0 0.1 Abs Immat Gran (auto) 0.01 0.01 Absolute Neuts (auto) 3.4 2.4 Absolute Nucleated RBC 0.000 0.000 Nucleated RBC % (auto) 0.0 0.0 Anion Gap 13 10 L Estim Creat Clear Calc TNP 72.6 Estimated GFR > 60 > 60 Random Glucose 126 H 117 H Calcium 9.1 D 8.7 Magnesium 1.8 Urine Color Yellow Urine Appearance Clear Urine pH 6.0 Ur Specific [place] 1.020 Urine Protein Negative Urine Glucose (UA) Negative Urine Ketones 15 Urine Blood Negative Urine Nitrite Negative Ur Leukocyte Esterase Negative Urine Opiates Screen Not Detected Ur Buprenorphine Scrn Not Detected Ur Oxycodone Screen Positive H Urine Methadone Screen Not Detected Urine Fentanyl Screen POSITIVE H Ur Barbiturates Screen Not Detected Ur Phencyclidine Scrn Not Detected Ur Amphetamines Screen Not Detected U Benzodiazepines Scrn Not Detected Urine Cocaine Screen Not Detected U Marijuana (THC) Screen Not Detected Assessment and Plan (1) Urinary retention: Status: Acute (2) Paresthesias: Status: Acute Plan 38-year-old female with history of Jennifer Danlos syndrome, osteogenesis imperfecta, myofascial pain syndrome, migraines, juvenile osteoporosis, asthma, and mood disorder with history of urinary retention requiring Van catheterization in the past and history of rectocele admitted to adult Psychiatry from [facility] following an intentional Flexeril overdose with consult placed to hospitalist service for medical H&P. #Acute urinary retention bladder scan on M5 revealed 800ml retained urine s/p van catheter placement MRI lumbar spine negative seen by neuro, no further neurological intervention/workup required -urology consult pending -avoid/minimize use of anticholinergics Acute Hypokalemia Replace and follow levels # acute on chronic low back pain with urinary retention and paresthesias as above #Chronic pain syndrome/myofacial pain syndrome/osteogenesis imperfecta/juvenile osteoporosis has osteogenesis imperfecta her with juvenile osteoarthritis and a number of fractures as well as myofascial pain syndrome pt abruptly discontinued from opiate therapy, outside of window for withdrawal Given history of opioid dependence and chronic pain, started on oxycontin 10mg BID and oxycodone 5mg q6h prn for severe pain Continue gabapentin, recommend gradual increase in dose as currently only on 100mg on review of external pharmacy reports has tried SNRI therapy with no effect Hold on muscle relaxers following OD with urinary retention outpt follow up with Dr. Owusu on 05/24 as scheduled #Mood disorder/flexeril overdose -transfer from due to medical issues. Will need care team consult to return to once medically cleared -sitter consult #Unspecified asthma -no acute exacerbation, albuterol p.r.n. # left lower extremity swelling LLE US negative for DVT # history of rectocele/organ prolapse -patient reports feeling a bulge in the urogenital area, she is concerned for district traffic chief tumor . Has not followed outpt with district traffic chief and refused exam during last admission -given urinary retention, requesting urology evaluate for prolapse DVT prophylaxis-Lovenox Full code Patient requires ongoing inpatient stay for management of acute urinary retention, Van catheter placement and expert consultation. She may ultimately require transfer back to psychiatric floor given recent Flexeril overdose once medically cleared Quality Stroke Does the patient have a stroke diagnosis?: No VTE Prior VTE?: No VTE Risk Level:: Medical - moderate - high VTE Device Contraindication: N/A - Device Ordered VTE Drug Contraindication: Treatment Not Indicated
--- NOTE | 2024-05-19 11:42 | MHC.CLN ---
PT IS MODERATELY MALNOURISHED PT WITH MILDLY DEPLETED BODY FAT AND REPORTED 28% SIGNIFICANT WT LOSS X 6 MONTHS WITH BMI 16.9 R/T SEIZURES 10/2023, THYROID AND HX ANOREXIA NERVOSA PER PT WITH UNSTABLE PO INTAKE OFFERED PT ADDITIONAL SUPPORT REGARDING ANOREXIA NERVOSA-PT DECLINED STATING THAT SHE IS IN REMISSION, APPETITE IS OK AT THIS TIME DIET RX: REGULAR-APPROPRIATE PT RECEPTIVE TO EATING MAGIC CUP TO INCREASE KCALS PT DOES NOT WANT TO DRINK ENSURE SUPPLEMENTS MAGIC CUP TO PROVIDE 870KCALS, 27G PROTEIN MONITOR PO INTAKE AND ENCOURAGE SUPPLEMENTS
[2024-05-19] MEDS: Acetaminophen 325 MG TABLET 650 MG PO (11:57)
[2024-05-19] MEDS: Enoxaparin Sodium 40 MG/0.4 ML SYRINGE SUBCUT (11:58)
--- NOTE | 2024-05-19 13:18 | P.CNNE_ITS ---
History of Present Illness Data of Consult Service Date: 05/19/24 Primary Care Provider: Unknown Physician HPI Reason for consult: Difficulty urinating 38 years old woman with known history of bladder prolapse and also probably some genitourinary dysfunction including treatment with sling or pruritus for bladder function had not seen her urologist for a while complain of difficulty urinating for few months. She was noted to have a large bladder. She also complain of some back pain. There was no history of any trauma. Review of Systems 2 Review of Systems: No rashes or recent trauma [facility] Past Medical History Medical History Rectocele Juvenile osteoporosis Compression fx, lumbar spine History of wrist fracture Myofascial pain syndrome Urinary retention Anxiety and depression Osteogenesis imperfecta Jennifer-Danlos disease Social History Social History Household Members: Other Household Members Other:: mom Housing: House Do you presently have visiting nurse or other home services: No Alcohol intake: former Patient Tobacco Use Status: Former Tobacco user Tobacco use type: Cigarette Cigarette Packs Per Day: 2 Cigarettes Per Day: 40.0 Years Smoked: Over 20 years e-Cigarette/Vaping Use: Currently Using Second Hand Smoke Exposure: Yes Use of substances other than those prescribed or required for medical reasons: No Substance Use Type: Opiates Currently Displaying Signs/Symptoms of Drug Intoxication Withdrawal: No Have you been hit, kicked, punched, or otherwise hurt by someone within the past year? If so, by whom?: No Do you feel safe in your current relationship?: No Current Relationship Is there a partner from a previous relationship who is making you feel unsafe now?: No Are you made to feel afraid or neglected: No Advance Directives: No Advance Directives Information Provided: No Do you have a plan to hurt others: No Plan Recently lost weight without trying: No Nutrition Risks: No Nutritional Risk Patient : No : No Poor oral hygiene: No service: No Sexual orientation: Straight/Heterosexual Meds Allergies Allergy/AdvReac Type Severity Reaction Status Date / Time azithromycin Allergy Itching Verified 05/18/24 21:14 levofloxacin [From Levaquin] Allergy Nightmare Verified 05/18/24 21:14 nitrofurantoin Allergy Itching Verified 05/18/24 21:14 [From Macrodantin] Active Medications: Current Medications Acetaminophen (Acetaminophen 325 Mg Tablet) 650 mg PO Q6H PRN PRN Reason: Pain, Mild (Pain Scale 1-3), fever or headache Last Admin: 05/19/24 11:57 Dose: 650 mg Al Hydroxide/Mg Hydroxide (Magnesium Hydrox/Alum Hydrox 30 Ml Oral.Susp) 30 ml PO Q6H PRN PRN Reason: Heartburn/Nausea Albuterol Sulfate (Albuterol Sulfate 90 Mcg 8 Gm Inhaler) 2 puff INHALE RQ4H PRN PRN Reason: Shortness of Breath/Wheezing Calcium Carbonate (Calcium Carbonate 750 Mg Tab.Chew) 750 mg PO Q4H PRN PRN Reason: Heartburn Enoxaparin Sodium (Enoxaparin Sodium 40 Mg/0.4 Ml Syringe) 40 mg SUBCUT Q24H [facility] Last Admin: 05/19/24 11:58 Dose: 40 mg Gabapentin (Gabapentin 100 Mg Capsule) 100 mg PO TID [facility] Last Admin: 05/19/24 08:26 Dose: 100 mg Ibuprofen (Ibuprofen 400 Mg Tablet) 400 mg PO TIDWM PRN PRN Reason: Pain, Moderate(Pain Scale 4-6) Lorazepam (Lorazepam 0.5 Mg Tablet) 0.25 mg PO BID PRN PRN Reason: anxiety Last Admin: 05/19/24 11:58 Dose: 0.25 mg Magnesium Hydroxide (Milk Of Magnesia 30 Ml Oral.Susp) 30 ml PO DAILY PRN PRN Reason: Constipation Magnesium Hydroxide (Milk Of Magnesia 30 Ml Oral.Susp) 30 ml PO DAILY PRN PRN Reason: Constipation Melatonin (Melatonin 3 Mg Tablet) 6 mg PO BEDTIME PRN PRN Reason: Insomnia Oxycodone HCl (Oxycodone Hcl Er 10 Mg Tab.Er.12h) 10 mg PO BID [facility] Last Admin: 05/19/24 08:26 Dose: 10 mg Oxycodone HCl (Oxycodone Hcl Immed Release 5 Mg Tablet) 5 mg PO Q6H PRN PRN Reason: Pain, Severe (Pain Scale 7-10) Last Admin: 05/19/24 08:26 Dose: 5 mg Polyethylene Glycol (Polyethylene Glycol 3350 17 Gm Powd.Pack) 17 gm PO DAILY [facility] Last Admin: 05/19/24 08:26 Dose: 17 gm Potassium Chloride (Potassium Chloride Packet 20 Meq Packet) 40 meq PO BID [facility] Stop: 05/19/24 21:01 Last Admin: 05/19/24 08:27 Dose: 40 meq Sodium Chloride (0.9 % Sodium Chloride Flush 3 Ml Syringe) 3 ml IVFLUSH QSHIFT [facility] Last Admin: 05/19/24 08:28 Dose: 3 ml Home Medications ?Medication ?Instructions ?Recorded ?Confirmed ?Last Taken ?Type albuterol sulfate 90 mcg/actuation 2 puff inhalation QID PRN 05/18/24 05/18/24 Unknown History aerosol inhaler Shortness Of Breath cyclobenzaprine 10 mg tablet 10 mg PO TID 05/18/24 05/18/24 Unknown History gabapentin 100 mg capsule 100 mg PO DAILY PRN nerve pain 05/18/24 05/18/24 Unknown History gabapentin 100 mg capsule 200 mg PO BEDTIME 05/18/24 05/18/24 Unknown History hydroxyzine HCl 25 mg tablet 25 mg PO Q6H PRN Anxiety 05/18/24 05/18/24 Unknown History ibuprofen 800 mg tablet 800 mg PO TID PRN Pain (Scale 05/18/24 05/18/24 Unknown History Score 4-6) lorazepam 0.5 mg tablet 0.25 mg PO BID PRN anxiety 05/18/24 05/18/24 Unknown History Physical Exam 2 Vital Signs: Vital Signs: Last Vital Signs Temp 97.8 F 05/19/24 07:49 Pulse 67 05/19/24 07:49 Resp 16 05/19/24 07:49 BP 122/80 05/19/24 07:49 Pulse Ox 96 05/19/24 07:49 O2 Del Method Room Air 05/19/24 07:49 BMI result Body Mass Index 16.9 Neuro: Other: She is alert and awake with normal spontaneity of speech fluency comprehension and flat affect. Deep tendon reflexes and legs are absent. She is able to lift against gravity. Plantars are flexor. Face is symmetrical. Visual ellison are full. Results Labs 05/19/24 07:00 05/19/24 07:00 Labs: Short CBC 05/18/24 05/19/24 Range/Units 21:25 07:00 WBC 5.7 5.8 (4.8-10.8) X10*3/uL Hgb 12.3 11.1 L (12.0-16.0) g/dl Hct 35.0 L 32.4 L (37.0-47.0) % Plt Count 164 D 154 L (160-400) X10*3/uL BMP 05/18/24 05/19/24 21:25 07:00 Sodium 146 H 144 Potassium 3.4 2.9 L* Chloride 114 H 114 H Carbon Dioxide 22 23 BUN 19 H 19 H Creatinine 0.68 0.65 Calcium 9.1 D 8.7 Urine 05/18/24 Range/Units 00:07 Urine Color Yellow Urine Appearance Clear Urine pH 6.0 (5.0-9.0) Ur Specific [place] 1.020 (1.005-1.025) Urine Protein Negative (Neg-Trace) mg/dL Urine Glucose (UA) Negative (Negative) mg/dL MRI of lumbosacral spine did not reveal any significant pathology. CT scan of brain revealed mild cerebellar atrophy. Assessment and Plan (1) Urinary retention: Status: Acute At this point there is no obvious pathology lumbosacral spine or brain to explain urinary retention. She reported complicated history of genitourinary pathology and treatment. My suggestion is for her to 1st see her urologist to see if there is no local pathology explaining bladder dysfunction. Also, management of this would require urology intervention or help. If no such explanation of her problem with urology consultation is found she could see us as an outpatient for further evaluation. Procedures Date of Service Date of Service: 05/19/24
[2024-05-19 14:49] VITALS: BP 102/65; PULSE 89; RESP 18; TEMP 36.2; O2SAT 96
--- NOTE | 2024-05-19 15:47 | PM.PSYCN ---
History of Present Illness Date of Service: t-1 Chief Complaint: urinary retention, acute on chronic back pain HPI Narrative: The patient is a 38-year-old female, transferred from [facility] Emergency room after she overdosed on Flexeril in a suicidal attempt. She was initially transferred to for continuation of care. But, after being assessed by the medical team she was transfer to [facility] for continuation of treatment. Currently the patient has a Joseph and needed IV fluids. On interview the patient adamantly denies suicidal ideation she stated that she is not going to overdose again, she was pleasant cooperative and future oriented. I explained her that she needed to be medically treated and later on transferred to Psychiatry. The patient was agreement on the plan, she was able to contract for safety. She adamantly denies psychotic symptoms or any safety concerns at this moment. Past Psychiatric History: One IPLOC at [place] [facility] primarily for eating disorder at age 18. Patient reports multiple hospitalizations for severe low weight and protein in her urine but these hospitalizations were on medical units. In 2021 the patient was in [facility] Emergency room and seen by AB and crisis after she was found wandering the streets she was expressing paranoid ideation stating that her family was trying to poison her she also reported at that time hearing evil voices that are head she reports she was talking to Kade and making statements I am and I am dying they are trying to kill me [facility] Medical History Rectocele Juvenile osteoporosis Compression fx, lumbar spine History of wrist fracture Myofascial pain syndrome Urinary retention Anxiety and depression Osteogenesis imperfecta Jennifer-Danlos disease Family History: Patient reports she grew up in [place] and live with her mother and father and 2 brothers her father of cancer in 2021 she states her older brother has anxiety and her mother has depression Social History: Patient reports she did have friends growing up and she was straight a student until she left school at the age of 16 due to anorexia she had to drop out of school due to multiple admissions at [facility] she is socially isolated currently Trauma History: Multiple surgeries Diagnostics Vital Signs (24Hr): Vital Signs - 24 hr 05/18/24 21:08 05/18/24 23:54 05/19/24 04:00 Temperature 98.6 F 98.1 F 98.1 F Pulse Rate 67 70 85 Respiratory Rate 18 16 16 Blood Pressure 128/82 118/78 113/74 Pulse Oximetry 100 97 94 Oxygen Delivery Method Room Air Room Air Room Air 05/19/24 07:48 05/19/24 07:49 05/19/24 14:49 Temperature 97.8 F 97.8 F 97.2 F Pulse Rate 67 67 89 Respiratory Rate 16 16 18 Blood Pressure 122/80 122/80 102/65 Pulse Oximetry 96 96 96 Oxygen Delivery Method Room Air Room Air Room Air BMI result Body Mass Index 16.9 Labs 05/19/24 07:00 05/20/24 11:16 Labs: Laboratory Results - last 48 hr 05/18/24 05/18/24 05/19/24 00:07 21:25 07:00 WBC 5.7 5.8 RBC 3.82 L 3.50 L Hgb 12.3 11.1 L Hct 35.0 L 32.4 L MCV 91.6 92.6 MCH 32.2 31.7 MCHC 35.1 H 34.3 RDW 12.2 12.3 Plt Count 164 D 154 L MPV 10.6 11.0 Immature Gran % (Auto) 0.2 0.2 Neut % (Auto) 59.0 41.9 L Lymph % (Auto) 31.5 48.0 H Nolan % (Auto) 7.7 7.4 Eos % (Auto) 0.9 1.6 Baso % (Auto) 0.7 0.9 Lymph # (Auto) 1.8 2.8 Nolan # (Auto) 0.4 0.4 Eos # (Auto) 0.1 0.1 Baso # (Auto) 0.0 0.1 Abs Immat Gran (auto) 0.01 0.01 Absolute Neuts (auto) 3.4 2.4 Absolute Nucleated RBC 0.000 0.000 Nucleated RBC % (auto) 0.0 0.0 Sodium 146 H 144 Potassium 3.4 2.9 L* Chloride 114 H 114 H Carbon Dioxide 22 23 Anion Gap 13 10 L BUN 19 H 19 H Creatinine 0.68 0.65 Estim Creat Clear Calc TNP 72.6 Estimated GFR > 60 > 60 Random Glucose 126 H 117 H Calcium 9.1 D 8.7 Magnesium 1.8 Urine Color Yellow Urine Appearance Clear Urine pH 6.0 Ur Specific [place] 1.020 Urine Protein Negative Urine Glucose (UA) Negative Urine Ketones 15 Urine Blood Negative Urine Nitrite Negative Ur Leukocyte Esterase Negative Urine Opiates Screen Not Detected Ur Buprenorphine Scrn Not Detected Ur Oxycodone Screen Positive H Urine Methadone Screen Not Detected Urine Fentanyl Screen POSITIVE H Ur Barbiturates Screen Not Detected Ur Phencyclidine Scrn Not Detected Ur Amphetamines Screen Not Detected U Benzodiazepines Scrn Not Detected Urine Cocaine Screen Not Detected U Marijuana (THC) Screen Not Detected Mental Status Exam Mental Status Exam Patient Appearance: Appropriate Patient Orientation: Person, Place and Situation Level of Consciousness: Awake and Appropriate Patient Behavior: Guarded and Passive Mood Description: Withdrawn Affect Description: Constricted Patient Cognition Impaired: Yes Ability to Follow Directions: Good Speech Pattern: Clear Hallucinations: None Delusions: Not Present Thought Process: Distracted and Slowed Thinking Thought Content: positive for [place] and positive for Poverty of Content Judgement: Fair Medications Medications Current Medications Acetaminophen (Acetaminophen 325 Mg Tablet) 650 mg PO Q6H PRN PRN Reason: Pain, Mild (Pain Scale 1-3), fever or headache Last Admin: 05/19/24 11:57 Dose: 650 mg Al Hydroxide/Mg Hydroxide (Magnesium Hydrox/Alum Hydrox 30 Ml Oral.Susp) 30 ml PO Q6H PRN PRN Reason: Heartburn/Nausea Albuterol Sulfate (Albuterol Sulfate 90 Mcg 8 Gm Inhaler) 2 puff INHALE RQ4H PRN PRN Reason: Shortness of Breath/Wheezing Calcium Carbonate (Calcium Carbonate 750 Mg Tab.Chew) 750 mg PO Q4H PRN PRN Reason: Heartburn Enoxaparin Sodium (Enoxaparin Sodium 40 Mg/0.4 Ml Syringe) 40 mg SUBCUT Q24H [facility] Last Admin: 05/19/24 11:58 Dose: 40 mg Gabapentin (Gabapentin 100 Mg Capsule) 100 mg PO TID [facility] Last Admin: 05/19/24 15:02 Dose: 100 mg Ibuprofen (Ibuprofen 400 Mg Tablet) 400 mg PO TIDWM PRN PRN Reason: Pain, Moderate(Pain Scale 4-6) Lorazepam (Lorazepam 0.5 Mg Tablet) 0.25 mg PO BID PRN PRN Reason: anxiety Last Admin: 05/19/24 11:58 Dose: 0.25 mg Magnesium Hydroxide (Milk Of Magnesia 30 Ml Oral.Susp) 30 ml PO DAILY PRN PRN Reason: Constipation Magnesium Hydroxide (Milk Of Magnesia 30 Ml Oral.Susp) 30 ml PO DAILY PRN PRN Reason: Constipation Melatonin (Melatonin 3 Mg Tablet) 6 mg PO BEDTIME PRN PRN Reason: Insomnia Oxycodone HCl (Oxycodone Hcl Er 10 Mg Tab.Er.12h) 10 mg PO BID [facility] Last Admin: 05/19/24 08:26 Dose: 10 mg Oxycodone HCl (Oxycodone Hcl Immed Release 5 Mg Tablet) 5 mg PO Q6H PRN PRN Reason: Pain, Severe (Pain Scale 7-10) Last Admin: 05/19/24 15:02 Dose: 5 mg Polyethylene Glycol (Polyethylene Glycol 3350 17 Gm Powd.Pack) 17 gm PO DAILY [facility] Last Admin: 05/19/24 08:26 Dose: 17 gm Potassium Chloride (Potassium Chloride Packet 20 Meq Packet) 40 meq PO BID [facility] Stop: 05/19/24 21:01 Last Admin: 05/19/24 08:27 Dose: 40 meq Sodium Chloride (0.9 % Sodium Chloride Flush 3 Ml Syringe) 3 ml IVFLUSH QSHIFT [facility] Last Admin: 05/19/24 15:02 Dose: 3 ml Allergies Allergies Allergy/AdvReac Type Severity Reaction Status Date / Time azithromycin Allergy Itching Verified 05/18/24 21:14 levofloxacin [From Levaquin] Allergy Nightmare Verified 05/18/24 21:14 nitrofurantoin Allergy Itching Verified 05/18/24 21:14 [From Macrodantin] Assessment & Plan Assessment & Plan (1) Benzodiazepine dependence: Status: Acute Code(s): F13.20 - Sedative, hypnotic or anxiolytic dependence, uncomplicated (2) Jennifer-Danlos disease: Status: Acute Code(s): Q79.60 - Jennifer-Danlos syndrome, unspecified (3) Mood disorder: Status: Acute Code(s): F39 - Unspecified mood [affective] disorder Plan The patient is a young adult female with a past history of benzodiazepine dependence, mood disorder and other medical comorbidities that was initially admitted at [facility] for overdose of Flexeril in a suicidal attempt. A for being medically cleared she was transferred to but while she was on the unit she needed to go back to our medical unit for continuation of care. At this moment the patient adamantly denies suicidal ideation and she is able to contract for safety even though, she overdosed on Flexeril and need was nearly little. Plan 1. Continue with same treatment. 2. , the patient is medically cleared, please contact care team for transfer back to Psychiatry. 3. If the patient wants to sign AMA she needs to be on a Section 12. 4. Reassessment as demand. Total time managing care of this patient today __30__ minutes. Informed Consent: understands
--- NOTE | 2024-05-19 16:01 | MHC.CM.PN ---
IMM delivered. Patient lives in an apartment w/ her mother and brother. Functionally independent. Denies use of DME or services. PCP Cassia Alanis DO No HCP. CM provided education and offered assistance. Patient declined. +SI with sitter at bedside, comes to unit from I/P psych. DP: Pending CARE team eval once medically cleared. Return to I/P psych vs home self care w/ family transport. CM will continue to follow.
[2024-05-19 19:06] VITALS: BP 119/73; PULSE 80; RESP 18; TEMP 36.6; O2SAT 94
[2024-05-19] MEDS: ondansetron HCL 4 MG/2 ML VIAL IVPUSH (19:45)
[2024-05-19] MEDS: Ibuprofen 400 MG TABLET PO (21:59)
[2024-05-20 03:14] VITALS: BP 114/69; PULSE 84; RESP 16; TEMP 36.1; O2SAT 95
[2024-05-20 06:50] VITALS: BP 101/62; PULSE 73; RESP 20; TEMP 36.3; O2SAT 96
[2024-05-20] MEDS: oxyCODONE HCl ER 10 MG TAB.ER.12H PO (08:40)
[2024-05-20] MEDS: polyethylene glycoL 3350 17 GM POWD.PACK PO (08:40)
[2024-05-20] MEDS: Gabapentin 100 MG CAPSULE PO (08:40)
[2024-05-20] MEDS: 0.9 % Sodium Chloride Flush 3 ML SYRINGE IVFLUSH (08:40)
--- NOTE | 2024-05-20 10:28 | MHC.CM.PN ---
Addendum entered by Alem Castro RN 05/20/24 13:47: Patient medically cleared for dc home self care. Patient will dc w/ van in place and f/u w/ urology outpatient. RN to provide teaching and patient will manage van. Patient comfortable w/ plan. Brother will provide transport. RN aware. Original Note: Patient not medically cleared at this time. Awaiting urology consult and CARE consult. CM will continue to follow.
[2024-05-20 11:48] LABS: Anion Gap 9 (12-20); Blood Urea Nitrogen 17 mg/dL (9-16); Calcium 9.1 mg/dL (8.4-10.2); Carbon Dioxide 25 mmol/L (22-29); Chloride 111 mmol/L (96-108); Creatinine Clr Calc Pharmacy 71.5; Estimated Glomerular Filt Rate > 60; Glucose Random 90 mg/dL (60-115); Sodium 141 mmol/L (135-145)
[2024-05-20] MEDS: Enoxaparin Sodium 40 MG/0.4 ML SYRINGE SUBCUT (12:21)
--- NOTE | 2024-05-20 12:22 | MHC.CLN ---
F/U DIET RX: REGULAR-APPROPRIATE PT RECEPTIVE TO EATING MAGIC CUP TID TO INCREASE KCALS. PROVIDES ADDITIONAL 870 KCALS, 27 G PROTEIN. DOES NOT WANT ENSURE SUPPLEMENTS. GOOD INTAKE RECORDED, 3 MEALS X 100%. MONITOR PO INTAKE AND ENCOURAGE SUPPLEMENTS.
--- NOTE | 2024-05-20 13:06 | P.CNUR_ITS ---
History of Present Illness Consult details Consult date: 05/20/24 Narrative: CC: Urinary retention 38-year-old female Background Jennifer-Danlos syndrome with osteogenesis imperfecta Urinary retention Joseph catheter placed Prior history of retention and had indwelling Joseph catheter for a number of years Previous Urogynecology operations at [facility] - patient states Has [place] sling, prior prolapse mesh repair required revision proximally 2012 Now reporting recurrent bulge Discussion regarding CIC. She has adequate hand capability. If any evidence of recurrent prolapse would refer to urogynecology [facility] Review of Systems 2 Constitutional: Constitutional: Reports as per HPI and Reports no additional constitutional complaints Cardiovascular: Cardiovascular: Reports as per HPI and Reports no additional cardiovascular complaints Respiratory: Respiratory: Reports as per HPI and Reports no additional respiratory complaints Gastrointestinal: Gastrointestinal: Reports as per HPI and Reports no additional gastrointestinal complaints Genitourinary: Genitourinary: Reports as per HPI Musculoskeletal: Musculoskeletal: Reports no additional musculoskeletal complaints and Reports as per HPI Neurologic: Reports system reviewed and no additional complaints, except as documented and Reports as per HPI [facility] Past Medical History Medical History Rectocele Juvenile osteoporosis Compression fx, lumbar spine History of wrist fracture Myofascial pain syndrome Urinary retention Anxiety and depression Osteogenesis imperfecta Jennifer-Danlos disease Social History Social History Household Members: Other Household Members Other:: mom Housing: House Do you presently have visiting nurse or other home services: No Alcohol intake: former Patient Tobacco Use Status: Former Tobacco user Tobacco use type: Cigarette Cigarette Packs Per Day: 2 Cigarettes Per Day: 40.0 Years Smoked: Over 20 years e-Cigarette/Vaping Use: Currently Using Second Hand Smoke Exposure: Yes Use of substances other than those prescribed or required for medical reasons: No Substance Use Type: Opiates Currently Displaying Signs/Symptoms of Drug Intoxication Withdrawal: No Have you been hit, kicked, punched, or otherwise hurt by someone within the past year? If so, by whom?: No Do you feel safe in your current relationship?: No Current Relationship Is there a partner from a previous relationship who is making you feel unsafe now?: No Are you made to feel afraid or neglected: No Advance Directives: No Advance Directives Information Provided: No Do you have a plan to hurt others: No Plan Recently lost weight without trying: No Nutrition Risks: No Nutritional Risk Patient : No : No Poor oral hygiene: No service: No Sexual orientation: Straight/Heterosexual Meds Allergies Allergy/AdvReac Type Severity Reaction Status Date / Time azithromycin Allergy Itching Verified 05/18/24 21:14 levofloxacin [From Levaquin] Allergy Nightmare Verified 05/18/24 21:14 nitrofurantoin Allergy Itching Verified 05/18/24 21:14 [From Macrodantin] Active Medications: Current Medications Acetaminophen (Acetaminophen 325 Mg Tablet) 650 mg PO Q6H PRN PRN Reason: Pain, Mild (Pain Scale 1-3), fever or headache Last Admin: 05/19/24 11:57 Dose: 650 mg Al Hydroxide/Mg Hydroxide (Magnesium Hydrox/Alum Hydrox 30 Ml Oral.Susp) 30 ml PO Q6H PRN PRN Reason: Heartburn/Nausea Albuterol Sulfate (Albuterol Sulfate 90 Mcg 8 Gm Inhaler) 2 puff INHALE RQ4H PRN PRN Reason: Shortness of Breath/Wheezing Calcium Carbonate (Calcium Carbonate 750 Mg Tab.Chew) 750 mg PO Q4H PRN PRN Reason: Heartburn Enoxaparin Sodium (Enoxaparin Sodium 40 Mg/0.4 Ml Syringe) 40 mg SUBCUT Q24H [facility] Last Admin: 05/20/24 12:21 Dose: 40 mg Gabapentin (Gabapentin 100 Mg Capsule) 100 mg PO TID [facility] Last Admin: 05/20/24 08:40 Dose: 100 mg Ibuprofen (Ibuprofen 400 Mg Tablet) 400 mg PO TIDWM PRN PRN Reason: Pain, Moderate(Pain Scale 4-6) Last Admin: 05/19/24 21:59 Dose: 400 mg Lorazepam (Lorazepam 0.5 Mg Tablet) 0.25 mg PO BID PRN PRN Reason: anxiety Last Admin: 05/19/24 21:58 Dose: 0.25 mg Magnesium Hydroxide (Milk Of Magnesia 30 Ml Oral.Susp) 30 ml PO DAILY PRN PRN Reason: Constipation Magnesium Hydroxide (Milk Of Magnesia 30 Ml Oral.Susp) 30 ml PO DAILY PRN PRN Reason: Constipation Melatonin (Melatonin 3 Mg Tablet) 6 mg PO BEDTIME PRN PRN Reason: Insomnia Ondansetron HCl (Ondansetron Hcl 4 Mg/2 Ml Vial) 4 mg IVPUSH Q6H PRN PRN Reason: Nausea and Vomiting Last Admin: 05/19/24 19:45 Dose: 4 mg Oxycodone HCl (Oxycodone Hcl Er 10 Mg Tab.Er.12h) 10 mg PO BID [facility] Last Admin: 05/20/24 08:40 Dose: 10 mg Oxycodone HCl (Oxycodone Hcl Immed Release 5 Mg Tablet) 5 mg PO Q6H PRN PRN Reason: Pain, Severe (Pain Scale 7-10) Last Admin: 05/19/24 21:59 Dose: 5 mg Polyethylene Glycol (Polyethylene Glycol 3350 17 Gm Powd.Pack) 17 gm PO DAILY [facility] Last Admin: 05/20/24 08:40 Dose: 17 gm Sodium Chloride (0.9 % Sodium Chloride Flush 3 Ml Syringe) [facility] Last Admin: 05/20/24 08:40 Dose: 3 ml Home Medications ?Medication ?Instructions ?Recorded ?Confirmed ?Last Taken ?Type albuterol sulfate 90 mcg/actuation 2 puff inhalation QID PRN 05/18/24 05/18/24 Unknown History aerosol inhaler Shortness Of Breath cyclobenzaprine 10 mg tablet 10 mg PO TID 05/18/24 05/18/24 Unknown History gabapentin 100 mg capsule 100 mg PO DAILY PRN nerve pain 05/18/24 05/18/24 Unknown History gabapentin 100 mg capsule 200 mg PO BEDTIME 05/18/24 05/18/24 Unknown History hydroxyzine HCl 25 mg tablet 25 mg PO Q6H PRN Anxiety 05/18/24 05/18/24 Unknown History ibuprofen 800 mg tablet 800 mg PO TID PRN Pain (Scale 05/18/24 05/18/24 Unknown History Score 4-6) lorazepam 0.5 mg tablet 0.25 mg PO BID PRN anxiety 05/18/24 05/18/24 Unknown History Physical Exam 2 Vital Signs: Vital Signs: Last Vital Signs Temp 97.4 F 05/20/24 06:50 Pulse 73 05/20/24 06:50 Resp 20 05/20/24 06:50 BP 101/62 05/20/24 06:50 Pulse Ox 96 05/20/24 06:50 O2 Del Method Room Air 05/20/24 06:50 BMI result Body Mass Index 16.9 Const: General: cooperative, healthy appearing, comfortable and no acute distress Orientation/consciousness: patient oriented x3 HEENT: Face and sinus: Yes normal facial exam Mouth: moist mucous membranes Neck: Neck: Yes normal visual inspection, Yes full ROM and Yes trachea midline Chest: Chest palpation & inspection: normal inspection of the chest Resp: Effort & Inspection: normal respiratory effort, able to speak in complete sentences and no respiratory distress GI: Inspection: Yes normal to inspection Back/Spine/Pelvis: Cervical Spine: normal cervical lordosis Thoracic/Lumbar Spine: thoracic and lumbar spine normal to inspection Skin: General skin exam: no rashes or lesions noted Neuro: General: patient oriented x3, tone normal and moves all extremities Extrem: General: Yes normal to inspection and Yes capillary refill normal Results Labs 05/19/24 07:00 05/20/24 11:16 Labs: Abnormal lab results 05/20/24 Range/Units 11:16 Chloride 111 H (96-108) mmol/L Anion Gap 9 L (12-20) BUN 17 H (9-16) mg/dL BMP 05/20/24 11:16 Sodium 141 Potassium 4.0 D Chloride 111 H Carbon Dioxide 25 BUN 17 H Creatinine 0.66 Calcium 9.1 Urine 05/18/24 Range/Units 00:07 Urine Color Yellow Urine Appearance Clear Urine pH 6.0 (5.0-9.0) Ur Specific [place] 1.020 (1.005-1.025) Urine Protein Negative (Neg-Trace) mg/dL Urine Glucose (UA) Negative (Negative) mg/dL All other labs normal. Assessment and Plan (1) Urinary retention: Status: Acute Plan Voiding trial CIC teaching Procedures Date of Service Date of Service: 05/20/24
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
== END 2024-05-20 14:34 | disposition home or self-care (01) | DRG 918 ==
PROVIDERS: Admitting Provider Physician Assistant; PCP Family Medicine; Visit Provider Physician Assistant Medical
DX: T48.1X2A Poisoning by skeletal muscle relaxants [neuromuscular blocking agents], intentional self-harm, initial encounter (principal); Q79.60 Ehlers-Danlos syndrome, unspecified; F11.20 Opioid dependence, uncomplicated; Q78.0 Osteogenesis imperfecta; F13.20 Sedative, hypnotic or anxiolytic dependence, uncomplicated; F39 Unspecified mood [affective] disorder; E87.6 Hypokalemia; J45.909 Unspecified asthma, uncomplicated; G89.4 Chronic pain syndrome; M54.9 Dorsalgia, unspecified; M79.18 Myalgia, other site; M81.8 Other osteoporosis without current pathological fracture; Z87.891 Personal history of nicotine dependence; Z79.899 Other long term (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
CPT/HCPCS: 36415; 80048; 80307; 81003; 83735; 85025; C1758; J1650; J2405; S9485

== ENCOUNTER → 2024-05-18 20:15 | Outpatient (BNV) | payer MEDICARE, MEDICAID, SELFPAY | PROVIDERS: Admitting Provider Physician Assistant; Visit Provider Psychiatry & Neurology Neurology | DX: R33.9 Retention of urine, unspecified (principal) | CPT/HCPCS: 99221 ==

== ENCOUNTER → 2024-05-18 20:15 | Outpatient (BNV) | payer MEDICARE, MEDICAID, SELFPAY | PROVIDERS: Admitting Provider Physician Assistant; PCP Family Medicine; Visit Provider Psychiatry & Neurology Psychiatry | DX: F39 Unspecified mood [affective] disorder (principal); F13.20 Sedative, hypnotic or anxiolytic dependence, uncomplicated; Q79.60 Ehlers-Danlos syndrome, unspecified | CPT/HCPCS: 99232 ==

== ENCOUNTER → 2024-05-18 20:15 | Outpatient (BNV) | payer MEDICARE, MEDICAID, SELFPAY | PROVIDERS: Admitting Provider Physician Assistant; PCP Family Medicine; Visit Provider Urology | DX: R33.9 Retention of urine, unspecified (principal) | CPT/HCPCS: 99222 ==

== ENCOUNTER → 2024-05-18 20:15 | Outpatient (BNV) | payer MEDICARE, MEDICAID, SELFPAY | PROVIDERS: Admitting Provider Physician Assistant; Visit Provider Physician Assistant | DX: R33.9 Retention of urine, unspecified (principal) | CPT/HCPCS: 99232; 99239; 99499 ==

== ENCOUNTER 2024-05-24 12:58 | Outpatient (AMB) | payer MEDICARE, MEDICAID, SELFPAY ==
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
[2024-05-24 13:03] VITALS: BP 119/88; PULSE 113; O2SAT 97; BMI 14.7
== END 2024-05-24 13:35 | disposition home or self-care (01) ==
PROVIDERS: PCP Family Medicine; Visit Provider Nurse Practitioner Family
DX: G89.4 Chronic pain syndrome (principal); M54.50 Low back pain, unspecified; Q78.0 Osteogenesis imperfecta; Q79.60 Ehlers-Danlos syndrome, unspecified; M79.18 Myalgia, other site; M79.632 Pain in left forearm
CPT/HCPCS: 99204

== ENCOUNTER → 2024-05-24 12:58 | Outpatient (BNVA) | payer MEDICARE, MEDICAID, SELFPAY | PROVIDERS: PCP Family Medicine; Visit Provider Nurse Practitioner Family | DX: G89.4 Chronic pain syndrome (principal); M79.18 Myalgia, other site; M79.632 Pain in left forearm; M54.50 Low back pain, unspecified; Q78.0 Osteogenesis imperfecta; Q79.60 Ehlers-Danlos syndrome, unspecified | CPT/HCPCS: 99202 ==

== ENCOUNTER 2024-05-25 19:18 | Inpatient (IN) | payer MEDICARE, MEDICAID, SELFPAY ==
--- NOTE | 2024-05-25 | ECG_ITS ---
Test Reason : OD Blood Pressure : / mmHG Vent. Rate : 097 BPM Atrial Rate : 097 BPM P-R Int : 124 ms QRS Dur : 094 ms QT Int : 368 ms P-R-T Axes : 071 030 -71 degrees QTc Int : 467 ms Normal sinus rhythm ST & T wave abnormality, consider inferior ischemia ST & T wave abnormality, consider anterior ischemia Prolonged QT Abnormal ECG No previous ECGs available Referred By: Wendy Dougherty Electronically Signed By:MINOO ALEXANDER
--- NOTE | ~2024-05-25 | XR_ITS ---
EXAMINATION: XR ABDOMEN CLINICAL INFORMATION: Stool burden COMPARISON: None TECHNIQUE: Frontal view. FINDINGS: Included lung bases are clear. There is increased amount of stool projecting over the distribution of the colon raising suspicion for constipation. There is no evidence of bowel obstruction, however. There is no evidence of abnormal calcifications. There is no acute skeletal structure changes. There is no evidence of small-bowel obstruction. There is no free air in the abdomen. XR/XR KUB IMPRESSION: Increased amount of stool in the colon suggesting constipation. Please correlate with clinical presentation. Electronically signed by: Oneida Pham MD 06/04/2024 07:31 AM EDT
--- NOTE | ~2024-05-25 | XR_ITS ---
EXAMINATION: XR ELBOW, LEFT XR FOREARM, LEFT XR WRIST, LEFT CLINICAL INFORMATION: Fall. COMPARISON: None available. TECHNIQUE: AP and lateral views of the left elbow. AP and lateral views of the left forearm. AP, oblique, and lateral views of the left wrist. FINDINGS: LEFT ELBOW: No acute fracture or dislocation. No joint space narrowing or marginal osteophytes. No osseous erosion. No abnormal soft tissue calcification. No significant elbow joint effusion. LEFT FOREARM: No acute fracture or dislocation. Volar stabilization plate and fixation screws within the distal radius. Chronic deformity of the distal ulna, likely postsurgical. No concerning lytic or blastic osseous lesion. LEFT WRIST: Osteotomy of the distal ulna with fusion of the distal radius and ulna. Distal radial stabilization plate with fixation screws. No acute fracture or dislocation. Moderate radiocarpal joint space narrowing with marginal osteophytes. No concerning lytic or blastic osseous lesion. XR/XR elbow LT 2V IMPRESSION: LEFT ELBOW: No acute fracture or dislocation. LEFT FOREARM: No acute fracture or dislocation. Chronic deformity of the distal radius and ulna, likely postsurgical. LEFT WRIST: No acute fracture or dislocation. Distal radial and ulnar hardware. Moderate radiocarpal osteoarthritis. Electronically signed by: Clifford Nails MD 07/21/2024 04:08 PM ZULLY MELGAR
--- NOTE | ~2024-05-25 | XR_ITS ---
EXAMINATION: XR ELBOW, LEFT XR FOREARM, LEFT XR WRIST, LEFT CLINICAL INFORMATION: Fall. COMPARISON: None available. TECHNIQUE: AP and lateral views of the left elbow. AP and lateral views of the left forearm. AP, oblique, and lateral views of the left wrist. FINDINGS: LEFT ELBOW: No acute fracture or dislocation. No joint space narrowing or marginal osteophytes. No osseous erosion. No abnormal soft tissue calcification. No significant elbow joint effusion. LEFT FOREARM: No acute fracture or dislocation. Volar stabilization plate and fixation screws within the distal radius. Chronic deformity of the distal ulna, likely postsurgical. No concerning lytic or blastic osseous lesion. LEFT WRIST: Osteotomy of the distal ulna with fusion of the distal radius and ulna. Distal radial stabilization plate with fixation screws. No acute fracture or dislocation. Moderate radiocarpal joint space narrowing with marginal osteophytes. No concerning lytic or blastic osseous lesion. XR/XR forearm LT 2V IMPRESSION: LEFT ELBOW: No acute fracture or dislocation. LEFT FOREARM: No acute fracture or dislocation. Chronic deformity of the distal radius and ulna, likely postsurgical. LEFT WRIST: No acute fracture or dislocation. Distal radial and ulnar hardware. Moderate radiocarpal osteoarthritis. Electronically signed by: Clifford Nails MD 07/21/2024 04:08 PM [facility]
--- NOTE | ~2024-05-25 | XR_ITS ---
EXAMINATION: 1. RADIOGRAPHS LEFT SHOULDER 2. RADIOGRAPHS LEFT RIBS CLINICAL INFORMATION: Shoulder and rib pain. History of osteogenesis imperfecta. COMPARISON: None TECHNIQUE: 3 views of the left shoulder and 3 views of the left ribs were obtained. FINDINGS: Left shoulder: Visualized portion of the proximal left humerus demonstrate no fracture. Humeral head demonstrates good articulation with the glenoid fossa. There are mild hypertrophic changes of the acromioclavicular joint. Visualized left-sided ribs and lung parenchyma are unremarkable. Left RIBS: Cardiac silhouette is normal in size. The lungs are mildly hyperinflated. There is no lobar consolidation. No pleural effusion or pneumothorax. No left-sided rib fracture. XR/XR ribs LT min 3V w CXR1V IMPRESSION: 1. Mild degenerative changes of the left shoulder. 2. No left-sided rib fracture. Electronically signed by: Orlando Lindsey MD 06/19/2024 10:50 AM EDT
--- NOTE | ~2024-05-25 | XR_ITS ---
EXAMINATION: XR ELBOW, LEFT XR FOREARM, LEFT XR WRIST, LEFT CLINICAL INFORMATION: Fall. COMPARISON: None available. TECHNIQUE: AP and lateral views of the left elbow. AP and lateral views of the left forearm. AP, oblique, and lateral views of the left wrist. FINDINGS: LEFT ELBOW: No acute fracture or dislocation. No joint space narrowing or marginal osteophytes. No osseous erosion. No abnormal soft tissue calcification. No significant elbow joint effusion. LEFT FOREARM: No acute fracture or dislocation. Volar stabilization plate and fixation screws within the distal radius. Chronic deformity of the distal ulna, likely postsurgical. No concerning lytic or blastic osseous lesion. LEFT WRIST: Osteotomy of the distal ulna with fusion of the distal radius and ulna. Distal radial stabilization plate with fixation screws. No acute fracture or dislocation. Moderate radiocarpal joint space narrowing with marginal osteophytes. No concerning lytic or blastic osseous lesion. XR/XR wrist LT 2V IMPRESSION: LEFT ELBOW: No acute fracture or dislocation. LEFT FOREARM: No acute fracture or dislocation. Chronic deformity of the distal radius and ulna, likely postsurgical. LEFT WRIST: No acute fracture or dislocation. Distal radial and ulnar hardware. Moderate radiocarpal osteoarthritis. Electronically signed by: Clifford Nails MD 07/21/2024 04:08 PM [facility]
--- NOTE | ~2024-05-25 | XR_ITS ---
EXAMINATION: 1. RADIOGRAPHS LEFT SHOULDER 2. RADIOGRAPHS LEFT RIBS CLINICAL INFORMATION: Shoulder and rib pain. History of osteogenesis imperfecta. COMPARISON: None TECHNIQUE: 3 views of the left shoulder and 3 views of the left ribs were obtained. FINDINGS: Left shoulder: Visualized portion of the proximal left humerus demonstrate no fracture. Humeral head demonstrates good articulation with the glenoid fossa. There are mild hypertrophic changes of the acromioclavicular joint. Visualized left-sided ribs and lung parenchyma are unremarkable. Left RIBS: Cardiac silhouette is normal in size. The lungs are mildly hyperinflated. There is no lobar consolidation. No pleural effusion or pneumothorax. No left-sided rib fracture. XR/XR shoulder LT min 2V IMPRESSION: 1. Mild degenerative changes of the left shoulder. 2. No left-sided rib fracture. Electronically signed by: Orlando Lindsey MD 06/19/2024 10:50 AM EDT
--- NOTE | ~2024-05-25 | CT_ITS ---
EXAMINATION: CT ABDOMEN AND PELVIS WITH CONTRAST CLINICAL INFORMATION: Abdominal distention. History of pelvic surgery COMPARISON: None available. TECHNIQUE: Multidetector volumetric images were obtained from the superior aspect of the liver through the pubic symphysis following administration 85 mL of Omnipaque 350 intravenous contrast. Sagittal and coronal reformatted images were obtained on the technologist's workstation. Oral contrast: No This CT examination was performed using dose optimization techniques as appropriate, variously including the following: *Automated exposure control *Adjustment of mA and/or kV according to patient size (this includes techniques or standardized protocols for targeted exams where dose is matched to indication/reason for exam; i.e. extremities or head) *Use of iterative reconstruction technique DLP: 261 mGy-cm FINDINGS: LUNG BASES: There is a 2 mm subpleural nodule right lower lobe image 95/4, 3 mm nodule left lower lobe axial image 61/4. Heart size is normal. LIVER, GALLBLADDER, AND BILIARY TREE: The liver is normal in size, shape, and attenuation. No focal hepatic lesion or biliary ductal dilatation is present. The gallbladder is unremarkable with no evidence of radiopaque gallstones, gallbladder wall thickening, or obvious pericholecystic inflammatory changes. PANCREAS: Unremarkable. SPLEEN: Unremarkable. ADRENAL GLANDS: Unremarkable. KIDNEYS AND URETERS: The kidneys are normal in size, shape, and attenuation. No hydronephrosis, hydroureter, or calculi seen. No perinephric stranding. BLADDER: The bladder is nondistended and appears unremarkable. There is straight catheter within. GASTROINTESTINAL TRACT: There is large amount of stool seen throughout the colon consistent with significant constipation. There is oral contrast in the right colon and distal in nondilated small bowel loops. No free air or free fluid seen . ABDOMINAL WALL: No significant hernia is appreciated. LYMPH NODES: Normal. VASCULAR: Unremarkable. PELVIC VISCERA: Unremarkable. OSSEOUS STRUCTURES: No aggressive lytic or sclerotic process CT/CT abdomen pelvis w IV con IMPRESSION: Severe constipation. Otherwise unremarkable CT abdomen and pelvis. Fleischner guidelines were followed. Electronically signed by: Deyvi Collins MD 06/04/2024 07:05 PM EDT
--- NOTE | ~2024-05-25 | US_ITS ---
EXAMINATION: US RETROPERITONEAL LIMITED (RENAL ONLY) CLINICAL INFORMATION: Urinary retention, back pain. COMPARISON: CT abdomen and pelvis 06/04/2024. X-ray abdomen 06/03/2024. TECHNIQUE: Real-time imaging of the kidneys. FINDINGS: RIGHT KIDNEY: 10.0 x 4.4 x 4.8 cm (SAG x AP x TRV). The kidney is normal in size, contour, and echogenicity. Renal cortical thickness is normal. No calculi or focal parenchymal lesions. No hydronephrosis. LEFT KIDNEY: 8.9 x 5.0 x 5.0 cm (SAG x AP x TRV). The kidney is normal in size, contour, and echogenicity. Renal cortical thickness is normal. No calculi or focal parenchymal lesions. No hydronephrosis. Partially obscured by bowel gas. US/US renal BI IMPRESSION: No ultrasound evidence of renal obstruction or hydronephrosis. Limited visualization of the left kidney obscured by bowel gas, exam otherwise unremarkable. Electronically signed by: Oneida Pham MD 06/05/2024 12:56 PM EDT
--- NOTE | 2024-05-25 19:27 | ED.PSYCH ---
HPI - Psych General Chief Complaint: Overdose Stated Complaint: SI, took 800 tazodone, took 1000mg of gabapentin Source: patient and EMS Mode of arrival: EMS Limitations: no limitations History of Present Illness HPI Narrative: Patient is a 38-year-old female with past medical history of osteogenesis imperfecta, Jennifer-Danlos, seizure, anxiety and depression , myofascial pain syndrome, migraines, juvenile osteoporosis, asthma, mood disorder presenting to emergency department for evaluation of suicidal ideations with attempted overdose reportedly 100 mg of trazodone and 1000 mg of gabapentin prior to arrival. She states ?I made a mistake?. She reports that she was mad after getting into a verbal altered patient with her mother and brother with whom she lives with. She regrets taking this medication. She states that over the past week she has been feeling suicidal with increased depression. She denies suicidal ideations at this moment. She is endorsing nausea and generalized stomach upset since taking the medication, has not had any episodes of vomiting, she also feels dizzy, and has a headache with intermittent blurred vision like I am feeling sleepy . She has a Van catheter in place by her account was inserted approximately 1 week ago at [facility] due to urinary retention, pending outpatient follow-up with Urology 06/02/2024. She admits to diffuse body ?bone pain?, reports that she was on high-dose oxycodone and OxyContin ?for 25 years?, and was recently discontinued by her primary care doctor in April of this year, when asked why she states it is because I overdosed in October on Flexeril and had a seizure . Related Data Home Medications ?Medication ?Instructions ?Recorded ?Confirmed albuterol sulfate 90 mcg/actuation 2 puff inhalation QID PRN 05/18/24 05/26/24 aerosol inhaler Shortness Of Breath gabapentin 100 mg capsule 100 mg PO DAILY PRN nerve pain 05/18/24 05/26/24 gabapentin 100 mg capsule 200 mg PO BEDTIME 05/18/24 05/26/24 ibuprofen 800 mg tablet 800 mg PO TID PRN Pain (Scale 05/18/24 05/26/24 Score 4-6) lorazepam 0.5 mg tablet 0.25 mg PO BID PRN anxiety 05/18/24 05/26/24 ascorbic acid (vitamin C) 1,000 mg 1,000 mg PO DAILY 05/26/24 05/26/24 tablet (Vitamin C) Previous Rx's ?Medication ?Instructions ?Recorded trazodone 50 mg tablet 50 mg PO BEDTIME MRX1 PRN Insomnia 05/18/24 14 days #14 tabs Allergies Allergy/AdvReac Type Severity Reaction Status Date / Time azithromycin Allergy Itching Verified 05/25/24 19:31 levofloxacin [From Levaquin] Allergy Nightmare Verified 05/25/24 19:31 nitrofurantoin Allergy Itching Verified 05/25/24 19:31 [From Macrodantin] Review of Systems Review of Systems: Yes all other systems are reviewed and are negative PMFSH Past Medical History Attestation statement: The following information was validated with the patient. Source: old records reviewed Medical History (Updated 05/29/24 @ 10:05 by Aurelio Hermosillo MD) Benzodiazepine dependence Rectocele Juvenile osteoporosis Compression fx, lumbar spine History of wrist fracture Myofascial pain syndrome Anxiety and depression Social History Social History Household Members: Other Household Members Other:: mom Housing: House Do you presently have visiting nurse or other home services: No Alcohol intake: former Patient Tobacco Use Status: Former Tobacco user Tobacco use type: Cigarette Cigarette Packs Per Day: 2 Cigarettes Per Day: 40.0 Years Smoked: Over 20 years Smoked in Last 30 Days: No e-Cigarette/Vaping Use: Currently Using Second Hand Smoke Exposure: Yes Use of substances other than those prescribed or required for medical reasons: No Substance Use Type: Opiates Advance Directives: No Advance Directives Information Provided: No service: No Sexual orientation: Straight/Heterosexual Physical Exam Vital Signs: Vital Signs: Last Vital Signs Temp 98.1 F 06/01/24 07:50 Pulse 72 06/01/24 07:50 Resp 18 06/01/24 07:50 BP 129/87 06/01/24 07:50 Pulse Ox 100 06/01/24 07:50 O2 Del Method Room Air 06/01/24 07:50 BMI result Body Mass Index 13.6 Appearance: Alert.?Oriented to person, place and time. Frail complex. No acute distress. Normal affect. Eyes: Pupils equal, round and reactive to light.? EOMI. No nystagmus. ENT: Pharynx normal.?? Neck: Normal inspection.? Neck supple.?? CVS: Heart sounds normal. Normal heart rate and rhythm.? Pulses normal.?? Respiratory: No respiratory distress.? Lung sounds clear to auscultation bilaterally?? Abdomen: Soft and non-tender. Normoactive bowel sounds. No pulsatile mass.?? Skin: Skin warm and dry.? Normal skin color.? ? Extremities: No lower extremity edema.? No calf ttp? Neuro: Moves all extremities spontaneously. Sensation intact bilaterally. CN II-XII intact. No focal neuro deficits. Ambulates with normal steady gait. Course Reevaluation(s) Reevaluation #1: Serial ECG monitoring for prolonged QTC; initially 467 at 19:42, 2 hour repeat 472 at 21:44 2 hour repeat 482 at 23:32 2 hour repeat 482 at 01:42 Patient signed out to ED attending Dr. Davis pending continued observation and serial monitoring Time: 01:53 Reevaluation #2: poison control called and notified given EKG stable she is medically cleared as of last EKG - referred to CARE team LYUBOV 535am 05/26/24 Reevaluation #3: Physician observation continued. Uneventful night. Vital signs stable. No complaints from nursing overnight. Med reconciliation reviewed and done. Pending disposition. Will continue to monitor. Consultations Consultation #1: Physician observation continued. Uneventful night. Vital signs stable. No complaints from nursing overnight. Med reconciliation reviewed and done. Pending disposition. Will continue to monitor. patient is having problem with Van complaining of bladder burning sensation, Van catheter was replaced by me with a new Van will recheck UA from a clean urine catch from Van. Time: 12:03 Consultation #2: [id number] 05/30/24 -- vital signs stable. no acute over night events per nursing notes. med rec reviewed and completed. Dr. Hermosillo (psych) evaluated patient yesterday, agrees that patient requires inpatient level of care. > care team expressing concerns that patient is extremely difficult to place with indwelling van cath. per patient, she is supposed to have a follow up appointment this week for removal. will place urology consult for assessment of van cath with ?removal. > physician observation continued pending urology consultation and bed search/ disposition. Consultation #3: Physician observation continued. VS stable, no acute events overnight, patient needs reassessment to see if she can go home at this point. Her catheter has been a manager intermediate intermittent issue. She just saw Aris on 05/20/24 for voiding trial and then looks like another had to be placed on 05/26. She needs self cath teaching likely but this catheter is likely not going to be removed in our ED today prior to psychiatric placement she would be high risk for failure. Will discuss with CARE team. LYUBOV 05/31/24 742am Additional Consultation(s): 06/01/24--10:00--physician observation continued. Vital signs stable. Patient's urine culture grew Raissa. Started on oral fluconazole. CARE team met with patient yesterday, will be re-evaluated again today. Pending their recommendations. Will continue to monitor Medications Administered Generic Name Dose Route Start Last Admin Trade Name Freq PRN Reason Stop Dose Admin Ascorbic Acid 1,000 mg 05/27/24 09:00 06/01/24 08:24 Ascorbic Acid 500 Mg Tablet PO 1,000 mg DAILY ELMO Administration Cefuroxime Axetil 250 mg 05/29/24 21:00 06/01/24 08:24 Cefuroxime Axetil 250 Mg Tablet PO 06/02/24 21:00 250 mg BID ELMO Administration Fluconazole 200 mg 06/01/24 10:00 06/01/24 11:50 Fluconazole 100 Mg Tablet PO 06/15/24 09:59 Not Given DAILY ELMO Gabapentin 100 mg 05/27/24 07:23 05/31/24 03:49 Gabapentin 100 Mg Capsule PO 100 mg DAILY PRN Administration nerve pain Gabapentin 200 mg 05/27/24 21:00 05/31/24 21:40 Gabapentin 100 Mg Capsule PO 200 mg BEDTIME ELMO Administration Ibuprofen 800 mg 05/27/24 07:23 05/31/24 03:48 Ibuprofen 800 Mg Tablet PO 800 mg TID PRN Administration Pain (Scale Score 4-6) Discontinued Medications Generic Name Dose Route Start Last Admin Trade Name Freq PRN Reason Stop Dose Admin Charcoal 100 gm 05/25/24 19:56 05/25/24 20:05 Activated Charcoal 50 Gm/240 Ml Oral.Susp PO 05/25/24 19:57 100 gm ONCE ONE Administration Sodium Chloride 1,000 mls @ 999 mls/hr 05/25/24 23:30 05/26/24 02:12 Ns IV 05/26/24 00:30 Infused .Q1H1M ELMO Infusion Potassium Chloride 10 meq in 100 mls @ 100 mls/hr 05/25/24 23:30 05/26/24 02:12 Potassium Chloride/H20 IV 05/26/24 01:29 Infused Q1H ELMO Infusion Ketorolac Tromethamine 15 mg 05/26/24 06:23 05/26/24 06:29 Ketorolac Tromethamine 15 Mg/Ml Vial IVPUSH 05/26/24 06:24 15 mg ONCE ONE Administration Lorazepam 1 mg 05/26/24 07:42 05/26/24 07:45 Lorazepam 2 Mg/Ml Vial IVPUSH 05/26/24 07:43 1 mg ONCE ONE Administration Lorazepam 1 mg 05/26/24 15:56 05/26/24 16:31 Lorazepam 2 Mg/Ml Vial IVPUSH 05/26/24 15:57 1 mg ONCE ONE Administration Lorazepam 0.25 mg 05/27/24 07:23 06/01/24 01:28 Lorazepam 0.5 Mg Tablet PO 0.25 mg BID PRN Administration anxiety Ondansetron HCl 4 mg 05/27/24 18:02 05/27/24 18:05 Ondansetron Hcl 4 Mg/2 Ml Vial IVPUSH 05/27/24 18:03 4 mg ONCE ONE Administration Ondansetron HCl 4 mg 05/27/24 18:35 05/27/24 18:39 Ondansetron Odt 4 Mg Tab.Rapdis TRANSLINGU 05/27/24 18:36 4 mg ONCE ONE Administration Ondansetron HCl 4 mg 05/28/24 10:08 05/28/24 10:16 Ondansetron Odt 4 Mg Tab.Rapdis TRANSLINGU 05/28/24 10:09 4 mg ONCE ONE Administration Phenazopyridine HCl 200 mg 05/29/24 12:02 05/29/24 12:28 Phenazopyridine Hcl 200 Mg Tablet PO 05/29/24 12:03 200 mg ONCE ONE Administration Phenazopyridine HCl 200 mg 05/29/24 20:12 05/29/24 20:43 Phenazopyridine Hcl 200 Mg Tablet PO 05/29/24 20:13 200 mg ONCE ONE Administration Potassium Chloride 40 meq 05/25/24 23:22 05/26/24 00:06 Potassium Chloride Packet 20 Meq Packet PO 05/25/24 23:23 40 meq ONCE ONE Administration Medical Decision Making Medical Decision Making [facility] Narrative: Patient is a 38-year-old female with past medical history of osteogenesis imperfecta, Jennifer-Danlos, seizure, anxiety and depression , myofascial pain syndrome for which she follows with Dr. Owusu at pain management, migraines, juvenile osteoporosis, asthma, mood disorder , history of urinary retention requiring Van catheterization removed approximately 1 year ago and history of rectocele who presents emergency department for evaluation of intentional overdose trazodone 100 mg and gabapentin 1000 mg prior to arrival Patient had a recent inpatient hospitalization 05/18/2024-05/20/2024 after a intentional Flexeril overdose, also found to have urinary retention at that time for which a Van catheter was again placed and she has been referred to Urology. She expresses a lot of depression and anxiety regarding her recent abrupt discontinuation of her narcotic medications, previously was taking OxyContin 30 mg daily in addition to 30 mg oxycodone 4 times daily, then was tapered to 15 mg of IR oxycodone before discontinuation Differential Diagnosis Differential Diagnoses: The differential diagnosis associated with the presentation includes (See narrative above) Admission/Observation Consideration of admission/observation: Escalation of care including admission/observation considered Patient is being observed in the Emergency Department for depression and anxiety. Observation time was started at 20:00 on 05/26/2024 for continued serial monitoring of QTC given prolongation in the setting of intentional overdose as per poison control recommendations.?The patient is currently stable and non-toxic appearing. Observation is being initiated in the Emergency Department to allow time to help differentiate if the patient's depression and anxiety is due to Substance Induced Mood Disorder and Anxiety versus Major Depressive Disorder, Bipolar Betty, Bipolar Depression, and Schizophrenia. The patient will receive frequent psychiatric assessments from the provider as well as from nursing staff. The patient will also be monitored for the need of PRN agitation medications such as Haldol, Ativan, and Benadryl. Consult Healthcare Provider Management of the patient was discussed with: Sliver Lap Tender (Poison control) Per poison control, recommendation to monitor for drowsiness and hypotension which can be expected, initial EKG of QTC prolonged EKG every 2 hours until normal, otherwise a repeat EKG in 4 hours, CBC, CMP (recommendation for potassium > 4), EtOH, salicylate, Tylenol, U tox, observation for 6-8 hours Lab Data MDM Lab Attestation statement: I reviewed the patient's lab results. CBC is without leukocytosis anemia or thrombocytopenia. No significant electrolyte derangement. BUN of 21, creatinine within normal range not ESTEPHANIE. Magnesium 2.2. LFTs normal. Urinalysis with hematuria and 1+ leukocyte esterase, no urine bacteria seen, IP due to indwelling Van catheter. Salicylate level negative. Drug abuse screen positive for oxycodone. Alcohol level nondetectable. 05/25/24 19:56 05/25/24 19:56 Labs: Lab Results 05/25/24 05/25/24 05/29/24 Range/Units 19:51 19:56 13:52 WBC 6.7 (4.8-10.8) X10*3/uL RBC 4.27 D (4.20-5.50) X10*6/uL Hgb 13.8 D (12.0-16.0) g/dl Hct 40.0 D (37.0-47.0) % MCV 93.7 (80.0-98.0) fL MCH 32.3 (27.0-33.0) pg MCHC 34.5 (31.0-35.0) g/dl RDW 12.6 (11.0-16.0) % Plt Count 212 D (160-400) X10*3/uL MPV 10.2 (9.4-12.3) fL Immature Gran % (Auto) 0.1 (0.0-0.4) % Neut % (Auto) 73.1 H (45-73) % Lymph % (Auto) 19.0 L (20-40) % Pender % (Auto) 7.1 (2-11) % Eos % (Auto) 0.3 (0-4) % Baso % (Auto) 0.4 (0-2) % Lymph # (Auto) 1.3 (1.2-4.9) X10*3/uL Pender # (Auto) 0.5 (0.1-1.2) X10*3/uL Eos # (Auto) 0.0 (0.0-0.4) X10*3/uL Baso # (Auto) 0.0 (0.0-0.2) X10*3/uL Abs Immat Gran (auto) 0.01 (0.00-0.03) X10*3/uL Absolute Neuts (auto) 4.9 (2.0-8.3) x10*3/uL Absolute Nucleated RBC 0.000 (0.0-0.012) X10*3/uL Nucleated RBC % (auto) 0.0 (0.0-0.2) /100WBC Sodium 144 (135-145) mmol/L Potassium 3.4 (3.3-5.1) mmol/L Chloride 112 H (96-108) mmol/L Carbon Dioxide 22 (22-29) mmol/L Anion Gap 13 (12-20) BUN 21 H (9-16) mg/dL Creatinine 0.77 (0.5-1.4) mg/dL Estim Creat Clear Calc 63.3 Estimated GFR > 60 Random Glucose 109 (60-115) mg/dL Calcium 9.0 (8.4-10.2) mg/dL Magnesium 2.2 (1.6-2.6) mg/dL Total Bilirubin 0.4 (0.0-1.0) mg/dL AST 12 (5-31) U/L ALT 9 (0-31) U/L Alkaline Phosphatase 55 (39-117) U/L Total Protein 6.6 (6.5-8.0) g/dL Albumin 4.1 (3.5-5.0) g/dL Urine Color Yellow Dark Yellow Urine Appearance Cloudy Cloudy Urine pH 6.5 6.5 (5.0-9.0) Ur Specific [place] 1.025 1.025 (1.005-1.025) Urine Protein 100 (2+) H 30 (1+) H (Neg-Trace) mg/dL Urine Glucose (UA) Negative Negative (Negative) mg/dL Urine Ketones 15 Negative (Negative) mg/dL Urine Blood Large (3+) H Large (3+) H (Negative) Urine Nitrite Negative Positive H (Negative) Ur Leukocyte Esterase Small (1+) H Moderate (2+) H (Negative) Urine RBC >20 H >20 H (0-2) /HPF Urine WBC 6-10 H 11-20 H (0-5) /HPF Ur Squamous Epith Cells 0-2 0-2 (0-2) /HPF Urine Bacteria None Seen None Seen (None Seen) Hyaline Casts 3-5 0-2 (0-2) /LPF Urine Yeast Present Present Salicylates < 5.0 L (15-30) mg/dL Urine Opiates Screen Not Detected (Not Detect) Ur Buprenorphine Scrn Not Detected (Not Detect) ng/mL Ur Oxycodone Screen Positive H (Not Detect) ng/mL Urine Methadone Screen Not Detected (Not Detect) ng/mL Urine Fentanyl Screen Not Detected (Not Detect) Acetaminophen < 3 (<30) mcg/mL Ur Barbiturates Screen Not Detected (Not Detect) Ur Phencyclidine Scrn Not Detected (Not Detect) Ur Amphetamines Screen Not Detected (Not Detect) U Benzodiazepines Scrn Not Detected (Not Detect) Urine Cocaine Screen Not Detected (Not Detect) U Marijuana (THC) Screen Not Detected (Not Detect) Ethyl Alcohol < 10 mg/dL Independent Interpretation I performed an independent interpretation of an: EKG Interpretation: 19:42 05/25/2024 Rate: 97 Rhythm:? Normal sinus rhythm Normal P waves.? Normal CARLOS.?? Normal QRS complex.?? ST T wave :??No ST elevation, no ST depression, T-wave inversion lead III, aVF. And notably pronounced in V3 qTC: Prolonged; 467 prior studies:? No prior available for review The study has been interpreted contemporaneously by me. Independent Historian Clinical information obtained from an independent historian. History obtained from or confirmed by: EMS External Record Review External record reviewed: Inpatient record (See narrative above) Critical Care Time Critical Care Time Critical Care Time: Yes Total Critical Care Time: 40 Attestation: I personally attest to this critical care time spent taking care of the patient exclusive of all other billable procedures was approximately 40 minutes including initial evaluation of patient, ordering tests,, EKG interpretation consumed monitoring, QT prolongation, medical consultation, documentation, re-evaluation. Discharge Plan Discharge Clinical Impression: Intentional overdose Patient Disposition: Still a Patient Prescriptions: No Action ibuprofen 800 mg tablet 800 mg PO TID PRN (Reason: Pain (Scale Score 4-6)) lorazepam 0.5 mg tablet 0.25 mg PO BID PRN (Reason: anxiety) gabapentin 100 mg capsule 100 mg PO DAILY PRN (Reason: nerve pain) gabapentin 100 mg capsule 200 mg PO BEDTIME albuterol sulfate 90 mcg/actuation HFA aerosol inhaler 2 puff inhalation QID PRN (Reason: Shortness Of Breath) trazodone 50 mg Tablet 50 mg PO BEDTIME MRX1 PRN (Reason: Insomnia) 14 Days Qty: 14 0RF ascorbic acid (vitamin C) [Vitamin C] 1,000 mg Tablet 1,000 mg PO DAILY Print Language: New Zealander ED Observation ED Observation Admit Comment: Patient will be a bedsearch no new issues no bed at this time.
[2024-05-25 19:30] VITALS: BP 135/93; PULSE 107; RESP 15; TEMP 37.1; O2SAT 97; BMI 13.6
--- NOTE | 2024-05-25 19:30 | PC.NURSE ---
pt gerarda from home reporting taken 800mg Trazodone and 1000mg Gabapentin approx 1800. pt reports it was a mistake and took it after a fight with mom and brother. denies si/hi. reports nausea. pt c/o chronic body aches. had van placed 05/21. urine appears tea colored. sample obtained to send to lab. also noted pt did not have leg securement for van, securement placed to L. upper leg. pt changed over belongings to [facility] by pct. 1:1 sitter at bedside. pt is axox4, calm/cooperative. iv via ems 22g L. AC. pt received 500mL NS via ems. pt placed on continuous cardiac, o2 and BP monitoring.
--- NOTE | 2024-05-25 19:37 | PC.NURSE ---
Addendum entered by Sim Moses 05/25/24 19:51: per poison control to give charcoal as well. Tyrese MAN aware. Original Note: call to poison control at this time. states expectation for drowsiness/low bp. recommends 1x ekg now and if qtc prolonged ekg x 2 hours until normal otherwise repeat 1x in 4 hours, labs cbc, cmp, etoh, salicylates, tylenol, utox. observation 6-8 hours. Tyrese MAN made aware.
--- NOTE | 2024-05-25 19:44 | MHC.EDTECH ---
all belongings are in decon
[2024-05-25 20:01] LABS: MANUAL DIFF FLAG NO
[2024-05-25 20:04] LABS: Basophils Percent Auto 0.4 % (0-2); Eosinophils Percent Auto 0.3 % (0-4); Hemoglobin 13.8 g/dl (12.0-16.0); Imm Gran Abs Auto 0.01 X10*3/uL (0.00-0.03); Imm Gran Pct Auto 0.1 % (0.0-0.4); Lymphocytes Absolute Auto 1.3 X10*3/uL (1.2-4.9); Mean Corpuscular HGB Conc 34.5 g/dl (31.0-35.0); Mean Corpuscular Hemoglobin 32.3 pg (27.0-33.0); Mean Corpuscular Volume 93.7 fL (80.0-98.0); Mean Platelet Volume 10.2 fL (9.4-12.3); Monocytes Absolute Auto 0.5 X10*3/uL (0.1-1.2); Monocytes Percent Auto 7.1 % (2-11); Neutrophils Absolute Auto 4.9 x10*3/uL (2.0-8.3); Neutrophils Percent Auto 73.1 % (45-73); Platelet Count 212 X10*3/uL (160-400); Red Blood Count 4.27 X10*6/uL (4.20-5.50); Red Cell Distribution Width 12.6 % (11.0-16.0); White Blood Count 6.7 X10*3/uL (4.8-10.8)
[2024-05-25 20:04] LABS: Appearance Urine Cloudy; Color Urine Yellow; Glucose Urine UA Negative (Negative); Leukocyte Esterase Urine Small (1+) (Negative); Nitrite Urine Negative (Negative); PH 6.5 (5.0-9.0); Specific Gravity - Urine 1.025 (1.005-1.025); UMIC TRIGGER UACC YES; Urine Blood Large (3+) (Negative); Urine Ketones 15 mg/dL (Negative); Urine Protein 100 (2+) mg/dL (Neg-Trace)
[2024-05-25] MEDS: Activated charcoaL 50 GM/240 ML ORAL.SUSP 100 GM PO (20:05)
[2024-05-25 20:15] LABS: Bacteria Urine None Seen (None Seen); RBC Urine >20 /HPF (0-2); Squamous Epithelial Cell Urine 0-2 /HPF (0-2); UACC Culture Trigger YES
[2024-05-25 20:18] VITALS: BP 133/90; PULSE 94; RESP 14; TEMP 36.9; O2SAT 97
[2024-05-25 20:19] LABS: Amphetamine Screen Urine Not Detected (Not Detect); Barbiturates, Urine Not Detected (Not Detect); Benzodiazepines Screen Urine Not Detected (Not Detect); Buprenorphine Scr Not Detected (Not Detect); Cannabinoid Screen Urine Not Detected (Not Detect); Cocaine Screen Urine Not Detected (Not Detect); Fentanyl, urine Not Detected (Not Detect); Methadone Screen, Urine Not Detected (Not Detect); Opiate Screen Urine Not Detected (Not Detect); Oxycodone Screen Urine Positive (Not Detect); Phencyclidine Screen Urine Not Detected (Not Detect)
[2024-05-25 20:29] LABS: Acetaminophen LAB < 3 mcg/mL (<30); Alanine Aminotransferase 9 U/L (0-31); Albumin Level 4.1 g/dL (3.5-5.0); Alkaline Phosphatase 55 U/L (39-117); Anion Gap 13 (12-20); Aspartate Amino Transferase 12 U/L (5-31); Bilirubin Total 0.4 mg/dL (0.0-1.0); Blood Urea Nitrogen 21 mg/dL (9-16); Carbon Dioxide 22 mmol/L (22-29); Chloride 112 mmol/L (96-108); Creatinine Clr Calc Pharmacy 63.3; Estimated Glomerular Filt Rate > 60; Ethanol < 10 mg/dL; Glucose Random 109 mg/dL (60-115); Magnesium 2.2 mg/dL (1.6-2.6); Potassium 3.4 mmol/L (3.3-5.1); Salicylate < 5.0 mg/dL (15-30); Sodium 144 mmol/L (135-145); Total Protein 6.6 g/dL (6.5-8.0)
--- NOTE | 2024-05-25 20:30 | PC.NURSE ---
pt did not tolerate charcoal and refusing to drink rest of it. Tyrese [employer] CELE[employer] aware.
--- NOTE | 2024-05-25 21:40 | ECG_ITS ---
Test Reason : CHECK QT Blood Pressure : / mmHG Vent. Rate : 096 BPM Atrial Rate : 096 BPM P-R Int : 120 ms QRS Dur : 088 ms QT Int : 374 ms P-R-T Axes : 066 015 -67 degrees QTc Int : 472 ms Normal sinus rhythm ST & T wave abnormality, consider inferior ischemia ST & T wave abnormality, consider anterior ischemia Prolonged QT Abnormal ECG When compared with ECG of 25-MAY-2024 19:42, No significant change was found Referred By: Wendy Dougherty Electronically Signed By:MINOO ALEXANDER
[2024-05-25 22:15] VITALS: BP 136/86; PULSE 97; RESP 13; TEMP 37.1; O2SAT 96
--- NOTE | 2024-05-25 23:16 | PC.NURSE ---
Addendum entered by Sim Moses 05/26/24 01:14: pt tolerated po potassium and receiving IV potassium at this time. pt on continuous cardiac monitoring nsr at 95 bpm. Original Note: call from poison control recommendation for potassium replacement for K+ >4.
[2024-05-25 23:27] VITALS: BP 130/87; PULSE 108; RESP 15; TEMP 37.7; O2SAT 95
--- NOTE | 2024-05-25 23:40 | ECG_ITS ---
Test Reason : OVERDOSED Blood Pressure : / mmHG Vent. Rate : 093 BPM Atrial Rate : 093 BPM P-R Int : 120 ms QRS Dur : 092 ms QT Int : 388 ms P-R-T Axes : 068 017 001 degrees QTc Int : 482 ms Normal sinus rhythm Nonspecific T wave abnormality Prolonged QT Abnormal ECG When compared with ECG of 25-MAY-2024 21:44, No significant change was found Referred By: Wendy Dougherty Electronically Signed By:MINOO ALEXANDER
--- NOTE | 2024-05-25 23:48 | MHC.EDTECH ---
This pct assumed care of Patient at 2300 ,vitals taken ,Pt ekg taken and was read by Provider ,Patient alert and Oriented ,Pt speaking in clear complete sentences ,Patient Observer at bedside .
--- NOTE | 2024-05-26 | ECG_ITS ---
Test Reason : OVERDOSED Blood Pressure : / mmHG Vent. Rate : 091 BPM Atrial Rate : 091 BPM P-R Int : 120 ms QRS Dur : 086 ms QT Int : 392 ms P-R-T Axes : 065 026 041 degrees QTc Int : 482 ms Normal sinus rhythm Normal ECG When compared with ECG of 25-MAY-2024 23:32, Nonspecific T wave abnormality no longer evident in Inferior leads T wave inversion no longer evident in Anterior leads Referred By: Wendy Dougherty Electronically Signed By:MINOO ALEXANDER
[2024-05-26] MEDS: Potassium Chloride Packet 20 MEQ PACKET 40 MEQ PO (00:06)
[2024-05-26] MEDS: Potassium Chloride/H20 10 MEQ/100 ML PIGGYBACK 100 MEQ IV ×2 (00:06→01:09)
[2024-05-26] MEDS: 0.9 % Sodium Chloride 1,000 ML 999 ML IV (00:06)
[2024-05-26 01:53] VITALS: BP 129/92; PULSE 92; RESP 17; TEMP 37.6; O2SAT 94
--- NOTE | 2024-05-26 03:33 | PC.NURSE ---
per poison control pt is now medically cleared no need to repeat ekg further. aware. pt is axox4 resting comfortably. 1:1 sitter at bedside.
[2024-05-26 03:48] VITALS: BP 129/92; PULSE 88; RESP 16; TEMP 37.6; O2SAT 98
[2024-05-26 06:21] VITALS: BP 123/88; PULSE 79; RESP 14; TEMP 37.3; O2SAT 96
[2024-05-26] MEDS: Ketorolac Tromethamine 15 MG/ML VIAL IVPUSH (06:29)
--- NOTE | 2024-05-26 06:37 | PC.NURSE ---
pt woke up reporting 8/10 MONTOYA, states has hx of migraines and feels similar. made aware. pt medicated per oct. resting comfortably nad. 1:1 sitter at bedside.
--- NOTE | 2024-05-26 06:57 | PC.NURSE ---
report received from previous RN, patient resting comfortably on stretcher, 1:1 remains at bedside, respirations even and unlabored offering no complaints at this time, awaiting care team eval
--- NOTE | 2024-05-26 07:11 | PC.NURSE ---
patient provided with breakfast tray
[2024-05-26] MEDS: LORazepam 2 MG/ML VIAL 1 MG IVPUSH ×2 (07:45→16:31)
--- NOTE | 2024-05-26 08:37 | PC.NURSE ---
care team at bedside
[2024-05-26 14:18] VITALS: BP 143/84; PULSE 79; RESP 16; TEMP 37.1; O2SAT 95
--- NOTE | 2024-05-26 14:36 | PHA.MEDREC ---
Addendum entered by Shantel Bonner RPh 05/26/24 14:53: Reviewed by [facility] Original Note: Pharmacy Consult ? Medication Reconciliation Pharmacy has completed the medication reconciliation. Spoke with patient. She told me her Dr took her off her Oxycodone 5mg and Cyclobenzaprine for reasons the patient is not sure about. She admitted to taking 1000mg of Gabapentin 100mg for pain and a good sleep last night. She also stated she has not been taking her Trazodone 50mg for a couple months but claims I took some last night too with the Gabapentin, maybe a handfull norman and states she has not taken anything else in the last few days due to her not feeling great since her doctor took her off her narcotics cold turkey she states shes been going through Opioid Withdrawal.
--- NOTE | 2024-05-26 15:47 | PC.NURSE ---
patient resting on stretcher at this time, 1:1 remains at bedside patient offering no complaints
[2024-05-26 18:36] VITALS: BP 105/63; PULSE 91; RESP 16; TEMP 37.1; O2SAT 95
--- NOTE | 2024-05-26 18:41 | PC.NURSE ---
patient provided with dinner tray
[2024-05-26 22:14] VITALS: BP 103/70; PULSE 75; RESP 16; TEMP 37.5; O2SAT 98
[2024-05-27 06:53] VITALS: BP 109/69; PULSE 73; RESP 18; TEMP 37.4; O2SAT 96
[2024-05-27] MEDS: Ibuprofen 800 MG TABLET PO (07:43)
[2024-05-27] MEDS: Ascorbic Acid 500 MG TABLET 1000 MG PO (07:43)
[2024-05-27] MEDS: Gabapentin 100 MG CAPSULE PO (07:44)
[2024-05-27] MEDS: LORazepam 0.5 MG TABLET 0.25 MG PO ×2 (07:44→21:28)
--- NOTE | 2024-05-27 08:19 | PC.NURSE ---
Alert and oriented, calm and cooperative, medicated per mar for complaints of body pain. Denies SI/ HI. ate well for breakfast. 1:[address]
--- NOTE | 2024-05-27 08:33 | PC.NURSE ---
Patient requesting discharge home, stating she is not SI and has been medically cleared. Patient reminded that she is an inpatient bed search , patient stating she wants to talk to care team. care team notified
--- NOTE | 2024-05-27 10:12 | MHC.CARE ---
[facility] [employer] requested [facility] Rosa Hughes to see patient per CC Angle Douglas. [place] message sent.
--- NOTE | 2024-05-27 11:45 | PM.PSYCN ---
History of Present Illness Date of Service: 05/27/2024 Chief Complaint: SI, took 800 tazodone, took 1000mg of gabapentin Reason for Consult: post suicide attempt Discussed with referring provider: Yes Sources of Information: patient interviewed, chart reviewed and crisis/core team assessment reviewed HPI Narrative: Ms. Gonzales is a 38 year-old woman w/ hx of jennifer-danlos, who was brought via EMS after she disclosed to mother intentional OD on trazodone and gabapentin. She was recently discharged from medical floor on 05/19 after intentional OD on flexeril. Pt reports she had argument with mother with whom she lives due to her not cleaning her room. She reports she is an adult and has right to make poor decisions referring to reason for her not cleaning her room. She reports her brother then intervene and continued the argument. She reports she locked herself in the room, sent a text message to her mother and OD on trazodone and gabapentin. She denies that it was with intent to end her life and that her intent was to go to sleep and relax. She reports mother was quick to call 911, which she does not think it was necessary, despite the fact that she had intentional OD few weeks ago that resulted on medical admission and worsening of urinary retention. She continues to denied suicidal ideation, plan or intent. Past Psychiatric History: One [facility] at [facility] primarily for eating disorder at age 18. Patient reports multiple hospitalizations for severe low weight and protein in her urine but these hospitalizations were on medical units. In 2021 the patient was in [facility] Emergency room and seen by ABH and crisis after she was found wandering the streets she was expressing paranoid ideation stating that her family was trying to poison her she also reported at that time hearing evil voices that are head she reports she was talking to Kade and making statements I am and I am dying they are trying to kill me [facility] Medical History (Updated 05/26/24 @ 01:46 by Wendy Dougherty, RODRIGO) Benzodiazepine dependence Rectocele Juvenile osteoporosis Compression fx, lumbar spine History of wrist fracture Myofascial pain syndrome Urinary retention Anxiety and depression Osteogenesis imperfecta Jennifer-Danlos disease Family History: Patient reports she grew up in [facility] and live with her mother and father and 2 brothers her father of cancer in 2022 she states her older brother has anxiety and her mother has depression Social History: Patient reports she did have friends growing up and she was straight a student until she left school at the age of 16 due to anorexia she had to drop out of school due to multiple admissions at [facility] she is socially isolated currently Trauma History: Multiple surgeries Diagnostics Vital Signs (24Hr): Vital Signs - 24 hr 05/26/24 14:18 05/26/24 18:36 05/26/24 22:14 Temperature 98.7 F 98.8 F 99.5 F Pulse Rate 79 91 75 Respiratory Rate 16 16 16 Blood Pressure 143/84 H 105/63 103/70 Pulse Oximetry 95 95 98 Oxygen Delivery Method Room Air Room Air Room Air 05/27/24 06:53 Temperature 99.3 F Pulse Rate 73 Respiratory Rate 18 Blood Pressure 109/69 Pulse Oximetry 96 Oxygen Delivery Method Room Air BMI result Body Mass Index 13.6 Labs 05/25/24 19:56 05/25/24 19:56 Labs: Laboratory Results - last 48 hr 05/25/24 05/25/24 19:51 19:56 WBC 6.7 RBC 4.27 D Hgb 13.8 D Hct 40.0 D MCV 93.7 MCH 32.3 MCHC 34.5 RDW 12.6 Plt Count 212 D MPV 10.2 Immature Gran % (Auto) 0.1 Neut % (Auto) 73.1 H Lymph % (Auto) 19.0 L [place] % (Auto) 7.1 Eos % (Auto) 0.3 Baso % (Auto) 0.4 Lymph # (Auto) 1.3 [place] # (Auto) 0.5 Eos # (Auto) 0.0 Baso # (Auto) 0.0 Abs Immat Gran (auto) 0.01 Absolute Neuts (auto) 4.9 Absolute Nucleated RBC 0.000 Nucleated RBC % (auto) 0.0 Sodium 144 Potassium 3.4 Chloride 112 H Carbon Dioxide 22 Anion Gap 13 BUN 21 H Creatinine 0.77 Estim Creat Clear Calc 63.3 Estimated GFR > 60 Random Glucose 109 Calcium 9.0 Magnesium 2.2 Total Bilirubin 0.4 AST 12 ALT 9 Alkaline Phosphatase 55 Total Protein 6.6 Albumin 4.1 Urine Color Yellow Urine Appearance Cloudy Urine pH 6.5 Ur Specific J[place] 1.025 Urine Protein 100 (2+) H Urine Glucose (UA) Negative Urine Ketones 15 Urine Blood Large (3+) H Urine Nitrite Negative Ur Leukocyte Esterase Small (1+) H Urine RBC >20 H Urine WBC 6-10 H Ur Squamous Epith Cells 0-2 Urine Bacteria None Seen Hyaline Casts 3-5 Urine Yeast Present Salicylates < 5.0 L Urine Opiates Screen Not Detected Ur Buprenorphine Scrn Not Detected Ur Oxycodone Screen Positive H Urine Methadone Screen Not Detected Urine Fentanyl Screen Not Detected Acetaminophen < 3 Ur Barbiturates Screen Not Detected Ur Phencyclidine Scrn Not Detected Ur Amphetamines Screen Not Detected U Benzodiazepines Scrn Not Detected Urine Cocaine Screen Not Detected U Marijuana (THC) Screen Not Detected Ethyl Alcohol < 10 Mental Status Exam Mental Status Exam Narrative: Appearance: wearing hospital gown, fair hygiene, in NAD Behavior: cooperative Psychomotor: no agitation or retardation noted Speech: clear, normal rate/rhythm/volume, spontaneous TP: linear TC: without signs of psychosis, wanting to go home Mood: okay Affect: congruent SI: denies HI: denies VH/AH: none Delusions: none Insight/judgment: poor x 2. Memory/cog: alert, oriented x 3. Medications Medications Current Medications Albuterol Sulfate (Albuterol Sulfate 90 Mcg 8 Gm Inhaler) 2 puff INHALE QID PRN PRN Reason: Shortness Of Breath Ascorbic Acid (Ascorbic Acid 500 Mg Tablet) 1,000 mg PO DAILY ELMO Last Admin: 05/27/24 07:43 Dose: 1,000 mg Gabapentin (Gabapentin 100 Mg Capsule) 100 mg PO DAILY PRN PRN Reason: nerve pain Last Admin: 05/27/24 07:44 Dose: 100 mg Gabapentin (Gabapentin 100 Mg Capsule) 200 mg PO BEDTIME ELMO Ibuprofen (Ibuprofen 800 Mg Tablet) 800 mg PO TID PRN PRN Reason: Pain (Scale Score 4-6) Last Admin: 05/27/24 07:43 Dose: 800 mg Lorazepam (Lorazepam 0.5 Mg Tablet) 0.25 mg PO BID PRN PRN Reason: anxiety Last Admin: 05/27/24 07:44 Dose: 0.25 mg Trazodone HCl (Trazodone Hcl 50 Mg Tablet) 50 mg PO BEDTIME MRX1 PRN PRN Reason: Insomnia Allergies Allergies Allergy/AdvReac Type Severity Reaction Status Date / Time azithromycin Allergy Itching Verified 05/25/24 19:31 levofloxacin [From Levaquin] Allergy Nightmare Verified 05/25/24 19:31 nitrofurantoin Allergy Itching Verified 05/25/24 19:31 [From Macrodantin] Assessment & Plan Assessment & Plan (1) Mood disorder: Status: Acute Code(s): F39 - Unspecified mood [affective] disorder Assessment and Plan: r/o personality disorder Plan Ms. Gonzales is a 38 year-old woman who has been assessed twice this month after intentional OD in context of feeling frustrated after argument with mother and brother with whom she resides. She denies SI/HI. She appears to be impulsive, with lose frustration tolerance as well as minimal insight into events leading to medical admission. Although, she may not be suicidal ideation, her impulsivity, low frustration tolerance poses a chronic risk of self harm. She currently does not have much supports in the community, therefore, brief inpt admission may benefit for safety and containment. She may benefit from DBT programing outpatient. Also, recommend VNA with lock box. PLAN 1. continue bedsearch, IPLOC for stabilization, safety and containment. Total time managing care of this patient today ____ minutes.
[2024-05-27 12:15] VITALS: BP 116/74; PULSE 68; RESP 14; TEMP 36.9; O2SAT 95
--- NOTE | 2024-05-27 12:29 | PC.NURSE ---
Calm and cooperative, oob ambulating to bathroom with steady gait. Assisted patient to comb hair
--- NOTE | 2024-05-27 14:09 | MHC.CARE ---
Statewide inpatient bed search was conducted for this individual, however, there are no appropriate available beds. The search will continue tomorrow if deemed appropriate. [facility] and [facility] declined due to inability to care for van catheter.
--- NOTE | 2024-05-27 16:44 | PC.NURSE ---
Patient requesting to speak to care team, wants to sign herself out. aware that she is here on a section 12
[2024-05-27 16:53] VITALS: BP 113/72; PULSE 82; RESP 14; TEMP 37.2; O2SAT 95
[2024-05-27] MEDS: ondansetron HCL 4 MG/2 ML VIAL IVPUSH (18:05)
[2024-05-27] MEDS: Ondansetron ODT 4 MG TAB.RAPDIS TRANSLINGU (18:39)
[2024-05-27 19:36] VITALS: BP 110/75; PULSE 75; RESP 16; TEMP 37.2; O2SAT 96
[2024-05-27] MEDS: Gabapentin 100 MG CAPSULE 200 MG PO (21:22)
[2024-05-28 06:18] VITALS: BP 114/75; PULSE 55; RESP 16; TEMP 36.6; O2SAT 97
--- NOTE | 2024-05-28 06:18 | MHC.EDTECH ---
300ml urine emptied from van bag
[2024-05-28 09:00] VITALS: BP 109/71; PULSE 58; RESP 16; TEMP 36.9; O2SAT 97
[2024-05-28] MEDS: Ascorbic Acid 500 MG TABLET 1000 MG PO (09:31)
[2024-05-28] MEDS: Ondansetron ODT 4 MG TAB.RAPDIS TRANSLINGU (10:16)
--- NOTE | 2024-05-28 10:20 | PC.NURSE ---
Care of Pt assumed at change of shift. Pt has been resting quietly with this light down--sitter present. Pt is calm, cooperative, and pleasant. Denies SI/HI at this time and reports she is anxious to go home. PRN Zofran given as Pt reports nausea this AM. No other complaints offered.
[2024-05-28 12:29] VITALS: BP 107/77; PULSE 77; RESP 14; TEMP 36.7; O2SAT 98
[2024-05-28] MEDS: Ibuprofen 800 MG TABLET PO (16:06)
[2024-05-28 16:17] VITALS: BP 112/86; PULSE 94; RESP 16; TEMP 37.1; O2SAT 97
--- NOTE | 2024-05-28 18:51 | PC.NURSE ---
Pt begins to become restless with increased agitation. States she wants to be d/c'd home. Pt offered PRN Ativan to which she declines. Spoke with Emerald from CT and will come talk with Pt--Pt made aware.
[2024-05-28] MEDS: LORazepam 0.5 MG TABLET 0.25 MG PO (19:27)
--- NOTE | 2024-05-28 20:19 | PC.NURSE ---
Assumed care of pt at 1900. Pt agitated and anxious wanting to go home. Previous RN explained to pt that she is currently on a section 12 and a bed search. Breana from care team over to talk with pt and explain to pt. Pt understanding and agreeable to take ativan to help.
--- NOTE | 2024-05-28 20:26 | MHC.CARE ---
Echocardiograph Tech received request from ED RN to see patient who is becoming more agitated and angry about wanting to be discharged home. Met patient at bedside and provided active listening and support. Requested Psych to see patient in the ED as IPLOC bedsearch has been exhausted and disposition is for inpatient psychiatric admission.
[2024-05-28] MEDS: Gabapentin 100 MG CAPSULE 200 MG PO (21:43)
[2024-05-29 05:54] VITALS: BP 113/72; PULSE 68; RESP 18; TEMP 36.3; O2SAT 98
--- NOTE | 2024-05-29 07:14 | PC.NURSE ---
Resumed care of patient at 0700, patient is resting comfortably in bed with 1:[address] Breakfast at bedside at this time.
[2024-05-29] MEDS: Gabapentin 100 MG CAPSULE PO (08:10)
[2024-05-29] MEDS: Ibuprofen 800 MG TABLET PO (08:10)
[2024-05-29] MEDS: Ascorbic Acid 500 MG TABLET 1000 MG PO (08:10)
--- NOTE | 2024-05-29 09:49 | PC.NURSE ---
this nurse took over pt care from skyler at 9, pt currently a&ox3, c/o 05/03 chronic pain but pt states she feels like she has shards of glass in her bladder due to the van cath- cath is currently patient/draining will be changed if provider wishes to do so. pt currently stating she has no si/hi thoughts- pt states I have learned my lesson after the 2nd time, its not worth it . vitals have been stable, rr equal/non labored, 1:1 sitter at bedside, will continue with plan of care
--- NOTE | 2024-05-29 09:59 | P.CNPS_ITS ---
History of Present Illness Date of Service: 05/29/24 Chief Complaint: SI, took 800 tazodone, took 1000mg of gabapentin Discussed with referring provider: No Sources of Information: patient interviewed, chart reviewed and crisis/core team assessment reviewed HPI Narrative: Follow-up consult for patient Tooth Cutter Contact Wheel met with patient who acknowledged that she did have an intentional overdose at previous admission; she says this last overdose of trazodone and gabapentin was not to necessarily kill herself but was impulsive and because she was very frustrated. Patient shares that she has little outpatient support. She agrees that she would benefit from inpatient level of care Patient was on opiates scheduled for 24 years to manage chronic medical comorbidities and chronic pain. Her long-time physician retired and new primary care tapered her off and discontinued opioid pain management. Patient reports she has been in constant pain and discomfort since then and has felt very frustrated and challenged to enjoy life or want to live. Past Psychiatric History: One IPLOC at [place] [facility] primarily for eating disorder at age 18. Patient reports multiple hospitalizations for severe low weight and protein in her urine but these hospitalizations were on medical units. In 2021 the patient was in [facility] Emergency room and seen by AB and crisis after she was found wandering the streets she was expressing paranoid ideation stating that her family was trying to poison her she also reported at that time hearing evil voices that are head she reports she was talking to Kade and making statements I am and I am dying they are trying to kill me [facility] Medical History (Updated 05/29/24 @ 10:05 by Aurelio Hermosillo MD) Benzodiazepine dependence Rectocele Juvenile osteoporosis Compression fx, lumbar spine History of wrist fracture Myofascial pain syndrome Anxiety and depression Family History: Patient reports she grew up in [facility] and live with her mother and father and 2 brothers her father of cancer in 2021 she states her older brother has anxiety and her mother has depression Social History: Patient reports she did have friends growing up and she was straight a student until she left school at the age of 16 due to anorexia she had to drop out of school due to multiple admissions at [facility] she is socially isolated currently Trauma History: Multiple surgeries Diagnostics Vital Signs (24Hr): Vital Signs - 24 hr 05/28/24 12:29 05/28/24 16:17 05/29/24 05:54 Temperature 98.1 F 98.7 F 97.4 F Pulse Rate 77 94 68 Respiratory Rate 14 16 18 Blood Pressure 107/77 112/86 113/72 Pulse Oximetry 98 97 98 Oxygen Delivery Method Room Air Room Air Room Air BMI result Body Mass Index 13.6 Labs 05/25/24 19:56 05/25/24 19:56 Medications Medications Current Medications Albuterol Sulfate (Albuterol Sulfate 90 Mcg 8 Gm Inhaler) 2 puff INHALE QID PRN PRN Reason: Shortness Of Breath Ascorbic Acid (Ascorbic Acid 500 Mg Tablet) 1,000 mg PO DAILY ELMO Last Admin: 05/29/24 08:10 Dose: 1,000 mg Gabapentin (Gabapentin 100 Mg Capsule) 100 mg PO DAILY PRN PRN Reason: nerve pain Last Admin: 05/29/24 08:10 Dose: 100 mg Gabapentin (Gabapentin 100 Mg Capsule) 200 mg PO BEDTIME ELMO Last Admin: 05/28/24 21:43 Dose: 200 mg Ibuprofen (Ibuprofen 800 Mg Tablet) 800 mg PO TID PRN PRN Reason: Pain (Scale Score 4-6) Last Admin: 05/29/24 08:10 Dose: 800 mg Lorazepam (Lorazepam 0.5 Mg Tablet) 0.25 mg PO BID PRN PRN Reason: anxiety Last Admin: 05/28/24 19:27 Dose: 0.25 mg Trazodone HCl (Trazodone Hcl 50 Mg Tablet) 50 mg PO BEDTIME MRX1 PRN PRN Reason: Insomnia Allergies Allergies Allergy/AdvReac Type Severity Reaction Status Date / Time azithromycin Allergy Itching Verified 05/25/24 19:31 levofloxacin [From Levaquin] Allergy Nightmare Verified 05/25/24 19:31 nitrofurantoin Allergy Itching Verified 05/25/24 19:31 [From Macrodantin] Assessment & Plan Assessment & Plan (1) MDD (major depressive disorder), single episode, moderate: Status: Acute Code(s): F32.1 - Major depressive disorder, single episode, moderate (2) Anxiety: Status: Acute Code(s): F41.9 - Anxiety disorder, unspecified (3) Osteogenesis imperfecta: Status: Acute Code(s): Q78.0 - Osteogenesis imperfecta (4) Jennifer-Danlos disease: Status: Acute Code(s): Q79.60 - Jennifer-Danlos syndrome, unspecified (5) Urinary retention: Status: Acute Code(s): R33.9 - Retention of urine, unspecified Plan Follow-up consult for patient Tooth Cutter Contact Wheel met with patient who acknowledged that she did have an intentional overdose at previous admission; she says this last overdose of trazodone and gabapentin was not to necessarily kill herself but was impulsive and because she was very frustrated. Patient shares that she has little outpatient support. She said she is a little depressed but more just frustrated with her current situation. She acknowledges that she is very anxious however. She also agrees that this continued impulsivity is getting out of control. She agrees that she would benefit from inpatient level of care Recommendation: Tooth Cutter Contact Wheel concurs with Verito Hughes's assessment and that patient requires inpatient level of care Patient needs help coping with anxiety and depression and also aftercare plan to help stop cycle of overdose such as setting up a VNA, lockbox, outpatient resources etc. Total time managing care of this patient today ____ minutes. Patient educated on: diagnosis, medication risk/benefits and medical condition Informed Consent: understands
--- NOTE | 2024-05-29 11:29 | PC.NURSE ---
spoke with ED provider about patients van cath which this nurse was told in report was to be changed, this nurse questioned the need for the change as a new urine can be obtained off the port- pt states she is difficult to get a van into. pt does c/o pain in bladder- better option suggested by this nurse may be to deflate and reinflate the balloon and add pyridium to her medications, provider is going to look into the patients history and get back to the nurse now caring for the patient- Radhika who took over care at 11am.
--- NOTE | 2024-05-29 12:03 | PC.NURSE ---
MD Alcocer changed pt van catheter w/ C.FRED Rockwell- patent 16fr van in place. pt encouraged to increase PO fluids
[2024-05-29] MEDS: Phenazopyridine HCL 200 MG TABLET PO ×2 (12:28→20:43)
--- NOTE | 2024-05-29 12:44 | PC.NURSE ---
pt provided with PO fluids, medicated per MAR
[2024-05-29 13:41] VITALS: BP 106/74; PULSE 79; RESP 20; TEMP 37.4; O2SAT 95
[2024-05-29 14:09] LABS: Appearance Urine Cloudy; Color Urine Dark Yellow; Glucose Urine UA Negative (Negative); Leukocyte Esterase Urine Moderate (2+) (Negative); Nitrite Urine Positive (Negative); PH 6.5 (5.0-9.0); Specific Gravity - Urine 1.025 (1.005-1.025); UMIC TRIGGER UACC YES; Urine Blood Large (3+) (Negative); Urine Ketones Negative (Negative); Urine Protein 30 (1+) mg/dL (Neg-Trace)
[2024-05-29 14:23] LABS: Bacteria Urine None Seen (None Seen); Hyaline Casts Urine 0-2 /LPF (0-2); RBC Urine >20 /HPF (0-2); Squamous Epithelial Cell Urine 0-2 /HPF (0-2); UACC Culture Trigger YES
--- NOTE | 2024-05-29 17:04 | PC.NURSE ---
patient resource book provided per patient request- pt expresses interest in living on her own, denies si/hi at this time. pt sts that she feels as though it would be better if she lived on her own as she feels her family is a significant stressor for her. pt alert and pleasant throughout shift
[2024-05-29] MEDS: LORazepam 0.5 MG TABLET 0.25 MG PO (19:54)
[2024-05-29] MEDS: Gabapentin 100 MG CAPSULE 200 MG PO (20:00)
[2024-05-29] MEDS: cefuroxime axetiL 250 MG TABLET PO (20:43)
[2024-05-29 22:01] VITALS: BP 113/93; PULSE 78; RESP 16; TEMP 36.9; O2SAT 98
--- NOTE | 2024-05-29 22:34 | PC.NURSE ---
pt medicated per OCT- pt medicated w/ pyridium 200mg for 05/03 shards of glass bladder pain - pt UA/cc resulted pt started of ceftin. pt given 0.25mg of ativan for anixety. pt 16fr van draining orange urine, no additional complaints at this time
--- NOTE | 2024-05-30 02:19 | PC.NURSE ---
patient provided with coffee, continues to rest quietly in room w/ no obvious signs/symptoms of distress noted.
[2024-05-30 05:18] VITALS: BP 111/78; PULSE 78; RESP 16; TEMP 36.8; O2SAT 96
--- NOTE | 2024-05-30 05:19 | MHC.EDTECH ---
900 ml empty from Joseph cath ,vitals taken Patient awake watching television .
[2024-05-30] MEDS: Ibuprofen 800 MG TABLET PO (06:44)
[2024-05-30] MEDS: cefuroxime axetiL 250 MG TABLET PO ×2 (09:34→20:39)
[2024-05-30] MEDS: Ascorbic Acid 500 MG TABLET 1000 MG PO (09:34)
[2024-05-30 13:29] VITALS: BP 130/83; PULSE 58; RESP 16; TEMP 37; O2SAT 97
--- NOTE | 2024-05-30 16:07 | PC.NURSE ---
Pt upset she cannot go home, informed patient she is on a section 12, waiting for urology to see patient.
[2024-05-30 18:59] VITALS: BP 119/73; PULSE 92; RESP 18; TEMP 36.8; O2SAT 94
[2024-05-30] MEDS: Gabapentin 100 MG CAPSULE 200 MG PO (20:39)
[2024-05-30] MEDS: LORazepam 0.5 MG TABLET 0.25 MG PO (20:44)
[2024-05-31] MEDS: Ibuprofen 800 MG TABLET PO (03:48)
[2024-05-31] MEDS: Gabapentin 100 MG CAPSULE PO (03:49)
[2024-05-31 05:55] VITALS: BP 121/86; PULSE 65; RESP 17; TEMP 36.9; O2SAT 97
[2024-05-31 08:30] VITALS: BP 110/85; PULSE 76; RESP 14; TEMP 36.9; O2SAT 96
[2024-05-31] MEDS: Ascorbic Acid 500 MG TABLET 1000 MG PO (09:07)
[2024-05-31] MEDS: cefuroxime axetiL 250 MG TABLET PO ×2 (09:07→21:40)
--- NOTE | 2024-05-31 09:15 | PC.NURSE ---
Patient c/o she doesn't feel good pain in whole body and the catheter is bothering her. Patient looks disheveled.
--- NOTE | 2024-05-31 12:09 | MHC.CARE ---
Pt will remain IPLOC at this time. Rosa Arevalo was contacted to check in with Pt secondary to amount of time boarding in the ED.
[2024-05-31 12:13] VITALS: BP 121/90; PULSE 92; RESP 16; TEMP 36.6; O2SAT 96
[2024-05-31 16:42] VITALS: BP 133/91; PULSE 89; RESP 16; TEMP 36.8; O2SAT 98
--- NOTE | 2024-05-31 19:53 | MHC.CARE ---
CARE Team met with the pt as she had questions about d/c. Tomorrow is her birthday and she would like to be home to celebrate. Pt stated that she won't do something stupid , if she's allowed to leave. Pt asked if she is on a section 12 and she was informed that she is. CARE Team informed her that she would be seen by someone again tomorrow.
[2024-05-31 20:09] VITALS: BP 131/88; PULSE 94; RESP 16; TEMP 36.9; O2SAT 95
--- NOTE | 2024-05-31 20:52 | PC.NURSE ---
Report given to MARILU Garcia pod RN. PT to move to POD with sitter for 1-1 due to rehan.
--- NOTE | 2024-05-31 21:00 | PC.NURSE ---
Assumed care of patient at 2100. Patient does have a van catheter and comes with 1:1 due to ligature risk. Patient denies SI/HI at this time and is calm and cooperative.
[2024-05-31] MEDS: Gabapentin 100 MG CAPSULE 200 MG PO (21:40)
[2024-06-01] MEDS: LORazepam 0.5 MG TABLET 0.25 MG PO (01:28)
--- NOTE | 2024-06-01 06:55 | PC.NURSE ---
Assumed care of patient at 0645, patient appears to be in no apparent distress this am, sleeping, respiraitons even and unlabored. Pt has 1:1 for safety due to having van catheter. Continue plan of care for inpatient bedsearch
[2024-06-01 06:57] VITALS: RESP 16
[2024-06-01 07:50] VITALS: BP 129/87; PULSE 72; RESP 18; TEMP 36.7; O2SAT 100
[2024-06-01] MEDS: Ascorbic Acid 500 MG TABLET 1000 MG PO (08:24)
[2024-06-01] MEDS: cefuroxime axetiL 250 MG TABLET PO ×2 (08:24→23:06)
[2024-06-01 14:00] VITALS: PULSE 85; RESP 17; TEMP 38.3; O2SAT 97
--- NOTE | 2024-06-01 14:44 | MHC.CARE ---
CARE TEAM saw patient today and has referred her to PHP. Her dispo currently is still IPLOC. A referral was placed to PHP with anticipation of her continuing with PHP services after IPLOC discharge from the unit. Email sent to Jenny @ [facility] now.
[2024-06-01 16:33] VITALS: BP 132/89; PULSE 86; RESP 16; TEMP 37.4; O2SAT 98
--- NOTE | 2024-06-01 17:54 | PC.NURSE ---
Per request of admissions team, another urine was collected on patient. Pt continues to wait for bed assignment, calm and cooperative, in good spirits
[2024-06-01 18:01] LABS: Appearance Urine Cloudy; Color Urine Yellow; Glucose Urine UA Negative (Negative); Leukocyte Esterase Urine Large (3+) (Negative); Nitrite Urine Negative (Negative); Specific Gravity - Urine 1.015 (1.005-1.025); UMIC TRIGGER UACC YES; Urine Blood Large (3+) (Negative); Urine Ketones Negative (Negative); Urine Protein 100 (2+) mg/dL (Neg-Trace)
[2024-06-01 18:18] LABS: Bacteria Urine None Seen (None Seen); RBC Urine >20 /HPF (0-2); Squamous Epithelial Cell Urine 0-2 /HPF (0-2); UACC Culture Trigger YES; WBC Urine >50 /HPF (0-5)
[2024-06-01 21:20] VITALS: BP 117/83; PULSE 92; RESP 16; TEMP 36.4; O2SAT 97
[2024-06-01] MEDS: Ibuprofen 800 MG TABLET PO (23:06)
[2024-06-01] MEDS: Gabapentin 100 MG CAPSULE 200 MG PO (23:07)
--- NOTE | 2024-06-01 23:46 | PC.ADMIT ---
Patient is a 39 year old single Occitan speaking female admitted as a CV admission to at 2145 and placed on 1:1 due to having a indwelling van catheter. She was cooperative with the skin check, which was unremarkable. Patient said she was hoping to be able to go home from the ED rather than being admitted. However patient did acknowledge that she had impulsively taken an overdose of several medications after having an argument with her mother and brother. Patient said she was thankful I am alive and feel embarrassed, foolish and out of character to take the overdose . Per the patient's history she was admitted to [facility] 05/20/24 for a similar presentation. Patient has a significant medical history, to include wedge compression fracture of unspecified lumbar vertebra, history of left wrist fracture, juvenile osteoporosis without current pathological fracture, myofascial pain syndrome, myalgia and rectocele. Patient is currently being treated for a UTI. During the admission assessment the patient was cooperative, but denied any SI, HI, AH or VH. She expressed frustration at being admitted but understands due to her impulsivity, limited coping skills and previous overdoses she needs to be evaluated. Patient denied any current depression or anxiety. Patient was able to sign release forms and answer questions for safety tool. She was assisted with her menu, provided toiletries and extra pillows. She will remain on 1:1 for safety. Van emptied at 0015 of 200 mls. of tea colored urine. Patient said she will be glad to have a urology consult.
[2024-06-02 07:00] VITALS: BMI 13.4
[2024-06-02 08:00] VITALS: BP 117/80; PULSE 76; RESP 17; TEMP 36.5; O2SAT 98
[2024-06-02] MEDS: Ascorbic Acid 500 MG TABLET 1000 MG PO (08:29)
[2024-06-02] MEDS: cefuroxime axetiL 250 MG TABLET PO ×2 (08:30→20:22)
[2024-06-02] MEDS: Fluconazole 100 MG TABLET 200 MG PO (08:32)
[2024-06-02] MEDS: Ibuprofen 800 MG TABLET PO ×3 (08:35→23:56)
[2024-06-02] MEDS: Gabapentin 100 MG CAPSULE PO (08:38)
[2024-06-02 09:03] LABS: Alanine Aminotransferase 10 U/L (0-31); Albumin Level 4.3 g/dL (3.5-5.0); Alkaline Phosphatase 56 U/L (39-117); Anion Gap 11 (12-20); Aspartate Amino Transferase 13 U/L (5-31); Bilirubin Total 0.4 mg/dL (0.0-1.0); Blood Urea Nitrogen 18 mg/dL (9-16); Calcium 9.7 mg/dL (8.4-10.2); Carbon Dioxide 26 mmol/L (22-29); Chloride 111 mmol/L (96-108); Cholesterol 212 mg/dL (<200); Creatinine Clr Calc Pharmacy 63.5; Estimated Glomerular Filt Rate > 60; Glucose Fasting 90 mg/dL (60-99); HDL Cholesterol 63 mg/dL (>40); LDL Cholesterol Calculated 127 mg/dL (<100); Potassium 3.5 mmol/L (3.3-5.1); Sodium 144 mmol/L (135-145); Total Protein 6.9 g/dL (6.5-8.0); Triglycerides 114 mg/dL (<150)
[2024-06-02 09:06] LABS: Estimated Average Glucose 100 mg/dL; Hemoglobin A1c % 5.1 % (<6.0); Total Hemoglobin (HGBA1C) 3552.9816 umol/L
[2024-06-02 09:17] LABS: Thyroid Stimulating Hormone 1.17 uIU/mL (0.32-4.0)
[2024-06-02 09:31] LABS: Folate 9.4 ng/mL (> or = 4.0); Vitamin B12 300 pg/mL (200-900)
--- NOTE | 2024-06-02 09:52 | P.HPPS_ITS ---
HPI Date of Service: 06/02/24 Chief Complaint: Sa Sources of Information: patient interviewed, chart reviewed and crisis/core team assessment reviewed HPI Subjective Notes: Castillo Warning and Conditional Voluntary Narrative: Patient is a 39-year-old female with history of Jennifer Danlos syndrome, osteogenesis imperfecta, myofascial pain syndrome, migraines, juvenile osteoporosis, asthma, and mood disorder with history of rectocele, urinary retention requiring Joseph catheterization, which was recently restarted. Patient?presented?to?[facility]?on?924?following?intentional?overdose?on?muscle?re laxers.??Patient?however?was?immediately? t ransferred?to?medical?floor?for?urinary?retention;?she?stabilized?there?and?was? discharged.??She?presents?again?for?overdose O n?gabapentin?and?trazodone,?Which?she?asserts?was?not?intentional,?saying?she?ju st?wanted?to?sleep?and?get?relief?from?chronic?pain H owever?she?agrees?it?was?impulsive?and?unsafe.??Patient?currently?denies?any?SI. ??She?reports?however?that?life?has?been?very?difficult O ff?pain?medications,?having?been?prescribed?opioids?consistently?for?the?past?24 ?years,?as?well?as?Ativan.??Patient?agrees?she?needs Help?stabilizing?and?coping. History: Patient was on opiates scheduled for 24 years to manage chronic medical comorbidities, resulting in hx of multiple fractures/falls and subsequent chronic pain. Pt denies any hx of substance abuse, including cannabis. She did screen positive for Fentanyl at first admission in October 2024 but is adamant she's never used it in her life and no quantitative labs done (leaving Fentanyl use inconclusive). Patients long-time physician of [address] Brigido Dietrich retired and new PCP tapered her off and discontinued all opioid pain management (also tapered and dc'd ativan). Patient reports she has been in constant pain and discomfort since then and has felt very frustrated and challenged to enjoy life, sometimes challenging her desire to live. Past Psychiatric History: Hospitalized October 2024 at [facility] at [facility] at [facility] primarily for eating disorder at age 18. Patient reports multiple hospitalizations for severe low weight and protein in her urine but these hospitalizations were on medical units. In 2021 the patient was in [facility] Emergency room and seen by AB and crisis after she was found wandering the streets she was expressing paranoid ideation stating that her family was trying to poison her she also reported at that time hearing evil voices that are head she reports she was talking to Kade and making statements I am and I am dying they are trying to kill me Medical Evaluation Reviewed: Yes [facility] Medical History (Updated 06/03/24 @ 09:49 by Aurelio Hermosillo MD) MDD (major depressive disorder), recurrent episode, moderate Benzodiazepine dependence Rectocele Juvenile osteoporosis Compression fx, lumbar spine History of wrist fracture Myofascial pain syndrome Anxiety and depression Family History: Patient reports she grew up in [place] [facility] and live with her mother and father and 2 brothers her father of cancer in 2021 she states her older brother has anxiety and her mother has depression Social History: Patient reports she did have friends growing up and she was straight a student until she left school at the age of 16 due to anorexia she had to drop out of school due to multiple admissions at [facility] she is socially isolated currently Substance History: denies any hx Trauma History: Multiple surgeries Diagnostics Vital Signs (24Hr): Vital Signs - 24 hr 06/01/24 14:00 06/01/24 16:33 06/01/24 21:20 Temperature 100.9 F H 99.3 F 97.5 F Pulse Rate 85 86 92 Respiratory Rate 17 16 16 Blood Pressure 132/89 117/83 Pulse Oximetry 97 98 97 Oxygen Delivery Method Room Air Room Air Room Air 06/02/24 08:00 Temperature 97.7 F Pulse Rate 76 Respiratory Rate 17 Blood Pressure 117/80 Pulse Oximetry 98 Oxygen Delivery Method Room Air BMI result Body Mass Index 13.6 Labs 05/25/24 19:56 06/02/24 08:27 Labs: Laboratory Results - last 48 hr 06/01/24 06/02/24 17:54 08:27 Sodium 144 Potassium 3.5 Chloride 111 H Carbon Dioxide 26 Anion Gap 11 L BUN 18 H Creatinine 0.76 Estim Creat Clear Calc 63.5 Estimated GFR > 60 Fasting Glucose 90 Estimat Average Glucose 100 Hemoglobin A1c % 5.1 Calcium 9.7 D Total Bilirubin 0.4 AST 13 ALT 10 Alkaline Phosphatase 56 Total Protein 6.9 Albumin 4.3 Triglycerides 114 Cholesterol 212 H LDL Cholesterol, Calc 127 H HDL Cholesterol 63 Vitamin B12 300 Folate 9.4 TSH 1.17 Urine Color Yellow Urine Appearance Cloudy Urine pH 7.0 Ur Specific [place] 1.015 Urine Protein 100 (2+) H Urine Glucose (UA) Negative Urine Ketones Negative Urine Blood Large (3+) H Urine Nitrite Negative Ur Leukocyte Esterase Large (3+) H Urine RBC >20 H Urine WBC >50 H Ur Squamous Epith Cells 0-2 Urine Bacteria None Seen Hyaline Casts 3-5 Meds/Allergies Meds Home Medications ?Medication ?Instructions ?Recorded ?Confirmed ?Type albuterol sulfate 90 mcg/actuation 2 puff inhalation QID PRN 05/18/24 05/26/24 History aerosol inhaler Shortness Of Breath gabapentin 100 mg capsule 100 mg PO DAILY PRN nerve pain 05/18/24 05/26/24 History gabapentin 100 mg capsule 200 mg PO BEDTIME 05/18/24 05/26/24 History ibuprofen 800 mg tablet 800 mg PO TID PRN Pain (Scale 05/18/24 05/26/24 History Score 4-6) lorazepam 0.5 mg tablet 0.25 mg PO BID PRN anxiety 05/18/24 05/26/24 History ascorbic acid (vitamin C) 1,000 mg 1,000 mg PO DAILY 05/26/24 05/26/24 History tablet (Vitamin C) Allergies Allergies Allergy/AdvReac Type Severity Reaction Status Date / Time azithromycin Allergy Itching Verified 05/25/24 19:31 levofloxacin [From Levaquin] Allergy Nightmare Verified 05/25/24 19:31 nitrofurantoin Allergy Itching Verified 05/25/24 19:31 [From Macrodantin] Mental Status Exam Mental Status Exam Narrative: Pt is alert and oriented; behavior is cooperative, friendly and calm; patient in physical pain; dressed in hospital attire with unkempt hair but adequate hygiene; mood is described as ok and affect congruent; eye contact appropriate; Speech is normal rate, volume and prosody and not pressured; no psychomotor agitation/retardation present; thought process is organized and goal directed; Thought content is on tx; otherwise pertinent to relevant topics and without any delusional content, paranoid ideations or grandiosity; denies any SI/HI. There is no evidence of perceptual disturbance. Patients insight and judgment appear intact. Assessment & Plan Assessment & Plan (1) MDD (major depressive disorder), recurrent episode, moderate: Status: Acute Code(s): F33.1 - Major depressive disorder, recurrent, moderate (2) Chronic pain syndrome: Status: Acute Code(s): G89.4 - Chronic pain syndrome (3) Osteogenesis imperfecta: Status: Acute Code(s): Q78.0 - Osteogenesis imperfecta (4) Jennifer-Danlos disease: Status: Acute Code(s): Q79.60 - Jennifer-Danlos syndrome, unspecified (5) Indwelling Joseph catheter present: Status: Acute Code(s): Z97.8 - Presence of other specified devices Plan HPI: Patient is a 39-year-old female with history of Jennifer Danlos syndrome, osteogenesis imperfecta, myofascial pain syndrome, migraines, juvenile osteoporosis, asthma, and mood disorder with history of rectocele, urinary retention requiring Joseph catheterization, which was recently restarted. Patient?presented?to?[facility]?on?924?following?intentional?overdose?on?muscle?re laxers.??Patient?however?was?immediately? t ransferred?to?medical?floor?for?urinary?retention;?she?stabilized?there?and?was? discharged.??She?presents?again?for?overdose O n?gabapentin?and?trazodone,?Which?she?asserts?was?not?intentional,?saying?she?ju st?wanted?to?sleep?and?get?relief?from?chronic?pain H owever?she?agrees?it?was?impulsive?and?unsafe.??Patient?currently?denies?any?SI. ??She?reports?however?that?life?has?been?very?difficult O ff?pain?medications,?having?been?prescribed?opioids?consistently?for?the?past?24 ?years,?as?well?as?Ativan.??Patient?agrees?she?needs Help?stabilizing?and?coping. Relevant Medical/psych History: Patient was on opiates scheduled for 24 years to manage chronic medical comorbidities, resulting in hx of multiple fractures/falls and subsequent chronic pain. Pt denies any hx of substance abuse, including cannabis. She did screen positive for Fentanyl at first admission in October 2024 but is adamant she's never used it in her life and no quantitative labs done (leaving Fentanyl use inconclusive). Patients long-time physician of [address] Brigido Dietrich retired and new PCP tapered her off and discontinued all opioid pain management (also tapered and dc'd ativan). Patient reports she has been in constant pain and discomfort since then and has felt very frustrated and challenged to enjoy life, sometimes challenging her desire to live. Discussed?case?with?MAGDA Dunaway from pain management clinic: pt seen on 05/24. MAGDA Dunaway agrees that patients medical comorbidities and subsequent chronic pain syndrome are commonly treated with opioid pain management. She recommends either Butrans patch or preferably Bel[place]uch[place] films (a form of Buprenorphin and titrating it to 150mg BID). Pt is also appropriate to get other nerve blocking treatments at pain clinic who will f/u with pt. IMPRESSION: P atient's?depression?and?SI?seem?to?be?situational?as?she?is?No?longer?receiving? pain?management?for?severe,?chronic?pain. P atient?has?no?known?history?of?substance?abuse.??Although?she?did?screen?positiv e?for?fentanyl (on?10/27/2023 and?05/18/2024), No?quantitative?analysis?was?done. ?This?mean that?fentanyl?screen?could?very?well?be?a?false-positive?result (which is not uncommon). Medical?decision?should?not?be?based?on?only?a?positive?screen?for?fentanyl. Although?patient?is?not?currently?suicidal, her?chronic?pain? A nd?poor?support?will?likely?continue?to?produce?mood?instability.??Treatment?stefania n?will?include?mortgage loan underwriter/team?discussion?with Outpatient?PCP?regarding?plan?for?treatment. PlAN: CV? One-to-one?since?indwelling?Joseph Continue?home?medications Consider?mood?stabilizer/SSRI Patient educated on: diagnosis, medication risk/benefits, substance abuse and therapeutic strategies Informed Consent: understands Reason for continued inpatient stay Substantial Risk for: rapid decompensation Statement Statement: I have reviewed the history and physical and performed a pertinent examination on my patient. No changes have occurred unless specified. If the History and Physical was not performed prior to admission, the Hospitalist's service will be consulted for completing the admission physical. Time Spent With Patient Time: Total time managing care of this patient today ____ minutes.
[2024-06-02] MEDS: Milk of Magnesia 30 ML ORAL.SUSP PO (18:24)
[2024-06-02 20:00] VITALS: BP 128/89; PULSE 97; RESP 15; TEMP 36.8; O2SAT 97
[2024-06-02] MEDS: Gabapentin 100 MG CAPSULE 200 MG PO (20:22)
[2024-06-02] MEDS: Acetaminophen 325 MG TABLET 650 MG PO (21:04)
[2024-06-02] MEDS: hydrOXYzine HCL 25 MG TABLET PO (21:04)
[2024-06-02] MEDS: traZODone HCL 50 MG TABLET PO ×2 (21:27→23:56)
[2024-06-03] MEDS: diphenhydrAMINE HCL 25 MG CAPSULE 50 MG PO (02:54)
[2024-06-03 08:28] VITALS: BP 132/87; PULSE 77; TEMP 36.5; O2SAT 100
[2024-06-03] MEDS: Fluconazole 100 MG TABLET 200 MG PO (09:36)
[2024-06-03] MEDS: Ascorbic Acid 500 MG TABLET 1000 MG PO (09:36)
[2024-06-03] MEDS: hydrOXYzine HCL 25 MG TABLET PO ×2 (11:52→21:35)
[2024-06-03] MEDS: Ibuprofen 800 MG TABLET PO ×2 (11:52→21:36)
--- NOTE | 2024-06-03 12:52 | HO.PSYCHPN ---
Subjective Subjective Date of Service: 06/03/24 Reason For Visit: Sa Subjective Notes: Conditional Voluntary Interim History: Reviewed with Dr. Whittaker. Patient reports feeling anxious ; expressed frustration with outpatient provider for discontinuing the pain medications and Ativan . Pt reports she not been honest and her recent overdose was intentional. Pt stated, It was an intentional overdose. I've been feeling worse and my doctor took me off my meds. Then my mother said something that upset me so it made me suicidal . She continues to report suicidal ideation that comes and goes . denies HI/VH/AH. Urology consult place d/t pain. Medication Compliance: Yes Side effects from medications: No Review of Systems Review of Systems Yes all other systems are reviewed and are negative Mental Status Exam Mental Status Exam Narrative: Pt is alert and oriented; behavior is cooperative, friendly and calm; patient in physical pain; dressed in hospital attire with unkempt hair but adequate hygiene; mood is described as anxious ; eye contact appropriate; Speech is normal rate, volume and not pressured; thought process is organized and goal directed; Thought content is on tx; denies HI/VH/AH. Pt reports suicidal ideation that comes and goes . Diagnostics Vital Signs (24Hr): Vital Signs - 24 hr 06/02/24 20:00 06/03/24 08:28 Temperature 98.3 F 97.7 F Pulse Rate 97 77 Respiratory Rate 15 Blood Pressure 128/89 132/87 Pulse Oximetry 97 100 Oxygen Delivery Method Room Air BMI result Body Mass Index 13.4 Labs 05/25/24 19:56 06/02/24 08:27 Labs: Laboratory Results - last 48 hr 06/01/24 06/02/24 17:54 08:27 Sodium 144 Potassium 3.5 Chloride 111 H Carbon Dioxide 26 Anion Gap 11 L BUN 18 H Creatinine 0.76 Estim Creat Clear Calc 63.5 Estimated GFR > 60 Fasting Glucose 90 Estimat Average Glucose 100 Hemoglobin A1c % 5.1 Calcium 9.7 D Total Bilirubin 0.4 AST 13 ALT 10 Alkaline Phosphatase 56 Total Protein 6.9 Albumin 4.3 Triglycerides 114 Cholesterol 212 H LDL Cholesterol, Calc 127 H HDL Cholesterol 63 Vitamin B12 300 Folate 9.4 TSH 1.17 Urine Color Yellow Urine Appearance Cloudy Urine pH 7.0 Ur Specific [place] 1.015 Urine Protein 100 (2+) H Urine Glucose (UA) Negative Urine Ketones Negative Urine Blood Large (3+) H Urine Nitrite Negative Ur Leukocyte Esterase Large (3+) H Urine RBC >20 H Urine WBC >50 H Ur Squamous Epith Cells 0-2 Urine Bacteria None Seen Hyaline Casts 3-5 Medications Medications Current Medications Acetaminophen (Acetaminophen 325 Mg Tablet) 650 mg PO Q6H PRN PRN Reason: Headache/Pain Mild Scale (1-3) Last Admin: 06/02/24 21:04 Dose: 650 mg Al Hydroxide/Mg Hydroxide (Magnesium Hydrox/Alum Hydrox 30 Ml Oral.Susp) 30 ml PO Q6H PRN PRN Reason: Heartburn/Nausea Albuterol Sulfate (Albuterol Sulfate 90 Mcg 8 Gm Inhaler) 2 puff INHALE QID PRN PRN Reason: Shortness Of Breath Ascorbic Acid (Ascorbic Acid 500 Mg Tablet) 1,000 mg PO DAILY ELMO Last Admin: 06/03/24 09:36 Dose: 1,000 mg Fluconazole (Fluconazole 100 Mg Tablet) 200 mg PO DAILY ELMO Stop: 06/15/24 09:59 Last Admin: 06/03/24 09:36 Dose: 200 mg Gabapentin (Gabapentin 100 Mg Capsule) 100 mg PO DAILY PRN PRN Reason: nerve pain Last Admin: 06/02/24 08:38 Dose: 100 mg Gabapentin (Gabapentin 100 Mg Capsule) 200 mg PO BEDTIME ELMO Last Admin: 06/02/24 20:22 Dose: 200 mg Hydroxyzine HCl (Hydroxyzine Hcl 25 Mg Tablet) 25 mg PO Q6H PRN PRN Reason: Anxiety Last Admin: 06/03/24 11:52 Dose: 25 mg Ibuprofen (Ibuprofen 800 Mg Tablet) 800 mg PO TID PRN PRN Reason: Pain (Scale Score 4-6) Last Admin: 06/03/24 11:52 Dose: 800 mg Magnesium Hydroxide (Milk Of Magnesia 30 Ml Oral.Susp) 30 ml PO DAILY PRN PRN Reason: Constipation Last Admin: 06/02/24 18:24 Dose: 30 ml Trazodone HCl (Trazodone Hcl 50 Mg Tablet) 50 mg PO BEDTIME MRX1 PRN PRN Reason: Insomnia Last Admin: 06/02/24 23:56 Dose: 50 mg Allergies Allergies Allergy/AdvReac Type Severity Reaction Status Date / Time azithromycin Allergy Itching Verified 05/25/24 19:31 levofloxacin [From Levaquin] Allergy Nightmare Verified 05/25/24 19:31 nitrofurantoin Allergy Itching Verified 05/25/24 19:31 [From Macrodantin] Assessment & Plan Assessment & Plan (1) MDD (major depressive disorder), recurrent episode, moderate: Status: Acute Code(s): F33.1 - Major depressive disorder, recurrent, moderate (2) Chronic pain syndrome: Status: Acute Code(s): G89.4 - Chronic pain syndrome (3) Osteogenesis imperfecta: Status: Acute Code(s): Q78.0 - Osteogenesis imperfecta (4) Jennifer-Danlos disease: Status: Acute Code(s): Q79.60 - Jennifer-Danlos syndrome, unspecified (5) Indwelling Joseph catheter present: Status: Acute Code(s): Z97.8 - Presence of other specified devices Plan HPI: Patient is a 39-year-old female with history of Jennifer Danlos syndrome, osteogenesis imperfecta, myofascial pain syndrome, migraines, juvenile osteoporosis, asthma, and mood disorder with history of rectocele, urinary retention requiring Joseph catheterization, which was recently restarted. Patient?presented?to?[facility]?on?924?following?intentional?overdose?on?muscle?relaxers.??Patient?however?was?immediately? transferred?to?medical?floor?for?urinary?retention;?she?stabilized?there?and?was?discharged.??She?presents?again?for?overdose On?gabapentin?and?trazodone,?Which?she?asserts?was?not?intentional,?saying?she?just?wanted?to?sleep?and?get?relief?from?chronic?pain However?she?agrees?it?was?impulsive?and?unsafe.??Patient?currently?denies?any?SI.??She?reports?however?that?life?has?been?very?difficult Off?pain?medications,?having?been?prescribed?opioids?consistently?for?the?past?24?years,?as?well?as?Ativan.??Patient?agrees?she?needs Help?stabilizing?and?coping. Relevant Medical/psych History: Patient was on opiates scheduled for 24 years to manage chronic medical comorbidities, resulting in hx of multiple fractures/falls and subsequent chronic pain. Pt denies any hx of substance abuse, including cannabis. She did screen positive for Fentanyl at first admission in October 2024 but is adamant she's never used it in her life and no quantitative labs done (leaving Fentanyl use inconclusive). Patients long-time physician of [address] Brigido Dietrich retired and new PCP tapered her off and discontinued all opioid pain management (also tapered and dc'd ativan). Patient reports she has been in constant pain and discomfort since then and has felt very frustrated and challenged to enjoy life, sometimes challenging her desire to live. Discussed?case?with?LIQUOR GRINDING MILL OPERATOR Vianey Dunaway from pain management clinic: pt seen on 05/24. LIQUOR GRINDING MILL OPERATOR Gume agrees that patients medical comorbidities and subsequent chronic pain syndrome are commonly treated with opioid pain management. She recommends either Butrans patch or preferably Belbucha films (a form of Buprenorphin and titrating it to 150mg BID). Pt is also appropriate to get other nerve blocking treatments at pain clinic who will f/u with pt. IMPRESSION: Patient's?depression?and?SI?seem?to?be?situational?as?she?is?No?longer?receiving?pain?management?for?severe,?chronic?pain. Patient?has?no?known?history?of?substance?abuse.??Although?she?did?screen?positive?for?fentanyl (on?10/27/2023 and?05/18/2024), No?quantitative?analysis?was?done. ?This?mean that?fentanyl?screen?could?very?well?be?a?false-positive?result (which is not uncommon). Medical?decision?should?not?be?based?on?only?a?positive?screen?for?fentanyl. Although?patient?is?not?currently?suicidal, her?chronic?pain? And?poor?support?will?likely?continue?to?produce?mood?instability.??Treatment?plan?will?include?writer producer/team?discussion?with Outpatient?PCP?regarding?plan?for?treatment. PlAN: CV? One-to-one?since?indwelling?Joseph Continue?home?medications Consider?mood?stabilizer/SSRI 06/03: Patient reports feeling anxious ; expressed frustration with outpatient provider for discontinuing the pain medications and Ativan . Pt reports she not been honest and her recent overdose was intentional. Pt stated, It was an intentional overdose. I've been feeling worse and my doctor took me off my meds. Then my mother said something that upset me so it made me suicidal . She continues to report suicidal ideation that comes and goes . denies HI/VH/AH. Urology consult place d/t pain. Patient educated on: diagnosis, medication risk/benefits and therapeutic strategies Reason for continued inpatient stay Substantial Risk for: harm to self and med/psych decompensation Time Spent With Patient Time: Total time managing care of this patient today _20___ minutes.
[2024-06-03] MEDS: Acetaminophen 325 MG TABLET 650 MG PO ×2 (13:46→21:34)
--- NOTE | 2024-06-03 16:28 | PC.NURSE ---
TW called urology to ask what the status of the urology consults are (2 consults have been ordered on 05/30 and 06/03 and pt has not been seen yet). Spoke with Dr Aba Mitchell who reported that pt was seen on 05/20 and that the pt is followed by Dr Rodriguez. Dr Aba Mitchell however did report that she will try to see pt later today. Will continue to monitor the status of these consults closely. Per pt she is c/o pain with urination and 06/02 urinary pain The catheter just hurts so much it feels like it's piercing through - Dr. Aba Mitchell and Bobbi Gil NP made aware.
[2024-06-03] MEDS: Gabapentin 100 MG CAPSULE PO (17:08)
--- NOTE | 2024-06-03 17:49 | PC.NURSE ---
Pt c/o constipation and reports that her last BM was on May 15. Pt's belly sounds are diminished throughout and belly is hard and painful 06/02. Bobbi Gil NP made aware. Ordered Fleet enema that has yet to arrive on the unit. Called pharmacy at about 17:30 and just now at 18:13 about Fleet Enema not being available in the med room. Pharmacy to be delivering med isacc.
--- NOTE | 2024-06-03 18:19 | PC.NURSE ---
As of right now pt has yet to be seen by urology
[2024-06-03] MEDS: Sodium Phosphate,Mono-Dibasic 133 ML ENEMA PR (18:45)
--- NOTE | 2024-06-03 18:57 | PC.NURSE ---
Fleet Enema administered with FRED Lyons present as well, with no effect. On-call provider Dr. Keenan Mendiola made aware via [employer] and requested that he orders imaging of her abdomen to assess the extent of impaction.
--- NOTE | 2024-06-03 19:27 | PC.NURSE ---
Pt just seen by urology. Per urology the catheter is in the right position and should not be removed while on the psych unit. Previous catheter removal showed that pt was still retaining urine and thus they will not attempt to remove catheter at this time per urology. Will continue to monitor pt.
[2024-06-03 20:00] VITALS: BP 140/87; PULSE 90; RESP 18; TEMP 36.9; O2SAT 97
--- NOTE | 2024-06-03 20:05 | PM.UROCN ---
History of Present Illness Consult details Consult date: 06/03/24 Narrative: 39-year-old female with history of Jennifer Danlos syndrome, osteogenesis imperfecta, myofascial pain syndrome, migraines, juvenile osteoporosis, asthma, and mood disorder with history of rectocele, urinary retention requiring Van catheterization, failed voiding trial H/o pelvic surgery with vaginal mesh. Pt states no BM for 3 weeks. Admitted to psych: Review of Systems Review of Systems: 10 point ROS negative other than stated in HPI PMFSH Past Medical History Medical History MDD (major depressive disorder), recurrent episode, moderate Benzodiazepine dependence Rectocele Juvenile osteoporosis Compression fx, lumbar spine History of wrist fracture Myofascial pain syndrome Anxiety and depression Social History Social History Household Members: Family Household Members Other:: mom Housing: House Do you presently have visiting nurse or other home services: No Alcohol intake: former Patient Tobacco Use Status: Former Tobacco user Tobacco use type: Cigarette Cigarette Packs Per Day: 2 Cigarettes Per Day: 40.0 Years Smoked: Over 20 years Smoked in Last 30 Days: No e-Cigarette/Vaping Use: Never Used Patient Interested in Nicotine Replacement: No Patient Given Instructions on How to Stop Smoking: No Second Hand Smoke Exposure: No Use of substances other than those prescribed or required for medical reasons: No Substance Use Type: Opiates Currently Displaying Signs/Symptoms of Drug Intoxication Withdrawal: No Any prior treatment program specific to substance use: No Have you been hit, kicked, punched, or otherwise hurt by someone within the past year? If so, by whom?: No Do you feel safe in your current relationship?: Yes Is there a partner from a previous relationship who is making you feel unsafe now?: No Are you made to feel afraid or neglected: No Spiritual Healthcare Practices: none Confucianism Healthcare Practices: none Cultural Healthcare Practices: none Advance Directives: No Advance Directives Information Provided: No Do you have thoughts of harming others: None Do you have a plan to hurt others: No Plan Recently lost weight without trying: No Eating poorly because of decreased appetite: No Nutrition Risks: No Nutritional Risk Patient : No : No Poor oral hygiene: No service: No Sexual orientation: Straight/Heterosexual Meds Allergies Allergy/AdvReac Type Severity Reaction Status Date / Time azithromycin Allergy Itching Verified 05/25/24 19:31 levofloxacin [From Levaquin] Allergy Nightmare Verified 05/25/24 19:31 nitrofurantoin Allergy Itching Verified 05/25/24 19:31 [From Macrodantin] Active Medications: Current Medications Acetaminophen (Acetaminophen 325 Mg Tablet) 650 mg PO Q6H PRN PRN Reason: Headache/Pain Mild Scale (1-3) Last Admin: 06/03/24 13:46 Dose: 650 mg Al Hydroxide/Mg Hydroxide (Magnesium Hydrox/Alum Hydrox 30 Ml Oral.Susp) 30 ml PO Q6H PRN PRN Reason: Heartburn/Nausea Albuterol Sulfate (Albuterol Sulfate 90 Mcg 8 Gm Inhaler) 2 puff INHALE QID PRN PRN Reason: Shortness Of Breath Ascorbic Acid (Ascorbic Acid 500 Mg Tablet) 1,000 mg PO DAILY ELMO Last Admin: 06/03/24 09:36 Dose: 1,000 mg Fluconazole (Fluconazole 100 Mg Tablet) 200 mg PO DAILY ELMO Stop: 06/15/24 09:59 Last Admin: 06/03/24 09:36 Dose: 200 mg Gabapentin (Gabapentin 100 Mg Capsule) 100 mg PO DAILY PRN PRN Reason: nerve pain Last Admin: 06/03/24 17:08 Dose: 100 mg Gabapentin (Gabapentin 100 Mg Capsule) 200 mg PO BEDTIME ELMO Last Admin: 06/02/24 20:22 Dose: 200 mg Hydroxyzine HCl (Hydroxyzine Hcl 25 Mg Tablet) 25 mg PO Q6H PRN PRN Reason: Anxiety Last Admin: 06/03/24 11:52 Dose: 25 mg Ibuprofen (Ibuprofen 800 Mg Tablet) 800 mg PO TID PRN PRN Reason: Pain (Scale Score 4-6) Last Admin: 06/03/24 11:52 Dose: 800 mg Magnesium Hydroxide (Milk Of Magnesia 30 Ml Oral.Susp) 30 ml PO DAILY PRN PRN Reason: Constipation Last Admin: 06/02/24 18:24 Dose: 30 ml Trazodone HCl (Trazodone Hcl 50 Mg Tablet) 50 mg PO BEDTIME MRX1 PRN PRN Reason: Insomnia Last Admin: 06/02/24 23:56 Dose: 50 mg Home Medications ?Medication ?Instructions ?Recorded ?Confirmed ?Last Taken ?Type albuterol sulfate 90 mcg/actuation 2 puff inhalation QID PRN 05/18/24 05/26/24 Unknown History aerosol inhaler Shortness Of Breath gabapentin 100 mg capsule 100 mg PO DAILY PRN nerve pain 05/18/24 05/26/24 Unknown History gabapentin 100 mg capsule 200 mg PO BEDTIME 05/18/24 05/26/24 05/25/24 History ibuprofen 800 mg tablet 800 mg PO TID PRN Pain (Scale 05/18/24 05/26/24 Unknown History Score 4-6) lorazepam 0.5 mg tablet 0.25 mg PO BID PRN anxiety 05/18/24 05/26/24 Unknown History ascorbic acid (vitamin C) 1,000 mg 1,000 mg PO DAILY 05/26/24 05/26/24 Unknown History tablet (Vitamin C) Physical Exam Vital Signs: Vital Signs: Last Vital Signs Temp 97.7 F 06/03/24 08:28 Pulse 77 06/03/24 08:28 Resp 15 06/02/24 20:00 BP 132/87 06/03/24 08:28 Pulse Ox 100 06/03/24 08:28 O2 Del Method Room Air 06/03/24 08:28 BMI result Body Mass Index 13.4 Const: General: cooperative and no acute distress Orientation/consciousness: patient oriented x3 HEENT: Head: Yes normal to inspection, Yes normocephalic and Yes atraumatic Eyes: Conjunctivae: conjunctivae normal Neck: Neck: Yes normal visual inspection and Yes trachea midline Chest: Chest palpation & inspection: normal inspection of the chest Resp: Effort & Inspection: normal respiratory effort Cardio: Rate: regular rate GI: Inspection: Yes normal to inspection Palpation (GI): Soft to palpation Neuro: General: patient oriented x3 Extrem: General: No edema Psych: Appearance: grossly normal Results Labs 06/04/24 15:30 06/04/24 15:30 Labs: Urine 05/25/24 05/29/24 06/01/24 Range/Units 19:51 13:52 17:54 Urine Color Yellow Dark Yellow Yellow Urine Appearance Cloudy Cloudy Cloudy Urine pH 6.5 6.5 7.0 (5.0-9.0) Ur Specific [place] 1.025 1.025 1.015 (1.005-1.025) Urine Protein 100 (2+) H 30 (1+) H 100 (2+) H (Neg-Trace) mg/dL Urine Glucose (UA) Negative Negative Negative (Negative) mg/dL All other labs normal. Assessment and Plan (1) Indwelling Van catheter present: Status: Acute (2) Urinary retention: Status: Acute (3) Voiding dysfunction: Status: Acute Plan Urinary retention- unclear etiology, Continue van for now as failed voiding trial pyridium 100mg bid with meals flomax 0.4 mg in the evening daily Renal US Constipation should be to addressed Procedures Date of Service Date of Service: 06/04/24
[2024-06-03] MEDS: Gabapentin 100 MG CAPSULE 200 MG PO (21:34)
[2024-06-03] MEDS: Phenazopyridine HCL 100 MG TABLET PO (21:35)
[2024-06-03] MEDS: Tamsulosin HCL 0.4 MG CAPSULE PO (21:35)
[2024-06-03] MEDS: traZODone HCL 50 MG TABLET PO (21:35)
[2024-06-04] MEDS: Milk of Magnesia 30 ML ORAL.SUSP PO (05:22)
[2024-06-04] MEDS: Acetaminophen 325 MG TABLET 650 MG PO ×2 (05:22→20:56)
[2024-06-04] MEDS: Ibuprofen 800 MG TABLET PO ×2 (05:23→20:56)
[2024-06-04 08:55] VITALS: BP 116/75; PULSE 99; RESP 17; TEMP 36.6; O2SAT 98
[2024-06-04] MEDS: Phenazopyridine HCL 100 MG TABLET PO ×2 (09:07→20:48)
[2024-06-04] MEDS: Fluconazole 100 MG TABLET 200 MG PO (09:08)
[2024-06-04] MEDS: Ascorbic Acid 500 MG TABLET 1000 MG PO (09:08)
[2024-06-04] MEDS: hydrOXYzine HCL 25 MG TABLET PO ×2 (09:09→15:17)
--- NOTE | 2024-06-04 09:18 | HO.PSYCHPN ---
Subjective Subjective Date of Service: 06/04/24 Reason For Visit: Sa Subjective Notes: Conditional Voluntary Interim History: Patient was seen and discussed in rounds today. Records and plans were reviewed. She has a Van in place and a urology consult has not been responded to. She continues to have constipation and did not respond to milk of magnesia and enema. Lactulose p.o. and suppository ordered before we do a hospitalist consult. No other complaints. No other changes or additions were made today Review of Systems Review of Systems Constipation Yes all other systems are reviewed and are negative Mental Status Exam Mental Status Exam Narrative: In today's visit she is alert, oriented and pleasant. Normal speech. Good eye contact. Affect is appropriate and slightly anxious. No signs of psychosis. No SI. Cognitively intact. Judgment is intact Diagnostics Vital Signs (24Hr): Vital Signs - 24 hr 06/03/24 20:00 06/04/24 08:55 Temperature 98.4 F 97.8 F Pulse Rate 90 99 Respiratory Rate 18 17 Blood Pressure 140/87 H 116/75 Pulse Oximetry 97 98 Oxygen Delivery Method Room Air Room Air BMI result Body Mass Index 13.4 Labs 05/25/24 19:56 06/02/24 08:27 Labs: Laboratory Results - last 48 hr 06/02/24 08:27 Vitamin B12 300 Folate 9.4 TSH 1.17 Imaging Radiology Impressions: ITS Impressions KUB X-Ray 06/03/24 19:55 IMPRESSION: Increased amount of stool in the colon suggesting constipation. Please correlate with clinical presentation. Electronically signed by: Oneida Pham MD 06/04/2024 07:31 AM EDT Medications Medications Current Medications Acetaminophen (Acetaminophen 325 Mg Tablet) 650 mg PO Q6H PRN PRN Reason: Headache/Pain Mild Scale (1-3) Last Admin: 06/04/24 05:22 Dose: 650 mg Al Hydroxide/Mg Hydroxide (Magnesium Hydrox/Alum Hydrox 30 Ml Oral.Susp) 30 ml PO Q6H PRN PRN Reason: Heartburn/Nausea Albuterol Sulfate (Albuterol Sulfate 90 Mcg 8 Gm Inhaler) 2 puff INHALE QID PRN PRN Reason: Shortness Of Breath Ascorbic Acid (Ascorbic Acid 500 Mg Tablet) 1,000 mg PO DAILY ELMO Last Admin: 06/04/24 09:08 Dose: 1,000 mg Fluconazole (Fluconazole 100 Mg Tablet) 200 mg PO DAILY ELMO Stop: 06/15/24 09:59 Last Admin: 06/04/24 09:08 Dose: 200 mg Gabapentin (Gabapentin 100 Mg Capsule) 100 mg PO DAILY PRN PRN Reason: nerve pain Last Admin: 06/03/24 17:08 Dose: 100 mg Gabapentin (Gabapentin 100 Mg Capsule) 200 mg PO BEDTIME ELMO Last Admin: 06/03/24 21:34 Dose: 200 mg Hydroxyzine HCl (Hydroxyzine Hcl 25 Mg Tablet) 25 mg PO Q6H PRN PRN Reason: Anxiety Last Admin: 06/04/24 09:09 Dose: 25 mg Ibuprofen (Ibuprofen 800 Mg Tablet) 800 mg PO TID PRN PRN Reason: Pain (Scale Score 4-6) Last Admin: 06/04/24 05:23 Dose: 800 mg Lactulose (Lactulose 320 Gm/480 Ml Solution) 200 gm AR ONCE ONE Stop: 06/04/24 09:17 Lactulose (Lactulose 20 Gm/30 Ml Solution) 40 gm PO DAILY ELMO Magnesium Hydroxide (Milk Of Magnesia 30 Ml Oral.Susp) 30 ml PO DAILY PRN PRN Reason: Constipation Last Admin: 06/04/24 05:22 Dose: 30 ml Phenazopyridine HCl (Phenazopyridine Hcl 100 Mg Tablet) 100 mg PO BIDWM ELMO Stop: 06/05/24 08:01 Last Admin: 06/04/24 09:07 Dose: 100 mg Tamsulosin HCl (Tamsulosin Hcl 0.4 Mg Capsule) 0.4 mg PO BEDTIME ELMO Last Admin: 06/03/24 21:35 Dose: 0.4 mg Trazodone HCl (Trazodone Hcl 50 Mg Tablet) 50 mg PO BEDTIME MRX1 PRN PRN Reason: Insomnia Last Admin: 06/03/24 21:35 Dose: 50 mg Allergies Allergies Allergy/AdvReac Type Severity Reaction Status Date / Time azithromycin Allergy Itching Verified 05/25/24 19:31 levofloxacin [From Levaquin] Allergy Nightmare Verified 05/25/24 19:31 nitrofurantoin Allergy Itching Verified 05/25/24 19:31 [From Macrodantin] Assessment & Plan Assessment & Plan (1) Indwelling Van catheter present: Status: Acute Code(s): Z97.8 - Presence of other specified devices (2) Urinary retention: Status: Acute Code(s): R33.9 - Retention of urine, unspecified (3) Voiding dysfunction: Status: Acute Code(s): N39.8 - Other specified disorders of urinary system Plan Urinary retention- unclear etiology, Continue van for now as failed voiding trial pyridium 100mg bid with meals flomax 0.4 mg in the evening daily Renal US Constipation should be to addressed 06/04: Continue current regimen and plans. Ordered 2 forms of lactulose for constipation and may consider a hospitalist consult if no benefits Patient educated on: medication risk/benefits Guardian/Caregiver educated on: medical condition Reason for continued inpatient stay Substantial Risk for: med/psych decompensation Time Spent With Patient Time: Total time managing care of this patient today ____ minutes.
[2024-06-04] MEDS: Lactulose 20 GM/30 ML SOLUTION 40 GM PO (09:37)
[2024-06-04] MEDS: Lactulose 320 GM/480 ML SOLUTION 200 GM PR (11:59)
[2024-06-04 15:05] VITALS: BP 144/88; PULSE 88; O2SAT 98
[2024-06-04] MEDS: Ondansetron ODT 4 MG TAB.RAPDIS TRANSLINGU ×2 (15:17→20:56)
[2024-06-04 15:35] LABS: MANUAL DIFF FLAG NO
[2024-06-04 15:36] LABS: Basophils Absolute Auto 0.1 X10*3/uL (0.0-0.2); Basophils Percent Auto 0.6 % (0-2); Eosinophils Absolute Auto 0.3 X10*3/uL (0.0-0.4); Hematocrit 36.4 % (37.0-47.0); Hemoglobin 12.4 g/dl (12.0-16.0); Imm Gran Abs Auto 0.03 X10*3/uL (0.00-0.03); Imm Gran Pct Auto 0.2 % (0.0-0.4); Lymphocytes Absolute Auto 2.6 X10*3/uL (1.2-4.9); Lymphocytes Percent Auto 19.4 % (20-40); Mean Corpuscular HGB Conc 34.1 g/dl (31.0-35.0); Mean Corpuscular Volume 93.8 fL (80.0-98.0); Mean Platelet Volume 9.3 fL (9.4-12.3); Monocytes Absolute Auto 0.9 X10*3/uL (0.1-1.2); Neutrophils Absolute Auto 9.4 x10*3/uL (2.0-8.3); Neutrophils Percent Auto 70.8 % (45-73); Platelet Count 276 X10*3/uL (160-400); Red Blood Count 3.88 X10*6/uL (4.20-5.50); Red Cell Distribution Width 13.2 % (11.0-16.0); White Blood Count 13.3 X10*3/uL (4.8-10.8)
[2024-06-04 15:47] LABS: Anion Gap 12 (12-20); Blood Urea Nitrogen 12 mg/dL (9-16); Calcium 9.1 mg/dL (8.4-10.2); Carbon Dioxide 24 mmol/L (22-29); Chloride 109 mmol/L (96-108); Creatinine Clr Calc Pharmacy 52.4; Estimated Glomerular Filt Rate > 60; Glucose Random 94 mg/dL (60-115); Potassium 3.8 mmol/L (3.3-5.1); Sodium 141 mmol/L (135-145)
--- NOTE | 2024-06-04 15:53 | P.CONHOSP_ITS ---
History of Present Illness Data of Consult Service Date: 06/04/24 Requesting physician: Umang Murray Primary Care Provider: None Physician HPI Reason for consult: abd pain 38yo F with Jennifer-Danlos syndrome, osteogenesis imperfect, myofascial pain syndrome, migraines, juvenile osteoporosis, asthma, mood disorder, hx urinary retention requiring Joseph catheterization, hx rectocele, hx vaginal mesh surgery. Recent admission to Medicine service for intentional Flexeril overdose 05/18-05/20/24 and cleared by CARE Team to return home but then admitted to 06/02 for intentional trazodone + gabapentin overdose. Has Joseph for urinary retention and Urology consulted. Placed on Flomax and recommended addressing constipation. Pt c/o no BM x3 wk other than small amount today after getting enema and rectal lactulose. However, c/o nausea and worsening abdominal distension/pain. She is passing gas, though. KUB 06/03/24 with large stool burden. Psychiatrist concerned re distension and abd pain. Review of Systems 2 Review of Systems: Yes all other systems are reviewed and are negative [facility] Medical History (Updated 06/04/24 @ 16:02 by Adarsh Lee MD) MDD (major depressive disorder), recurrent episode, moderate Benzodiazepine dependence Rectocele Juvenile osteoporosis Compression fx, lumbar spine History of wrist fracture Myofascial pain syndrome Anxiety and depression Social History Household Members: Family Household Members Other:: mom Housing: House Do you presently have visiting nurse or other home services: No Alcohol intake: former Patient Tobacco Use Status: Former Tobacco user Tobacco use type: Cigarette Cigarette Packs Per Day: 2 Cigarettes Per Day: 40.0 Years Smoked: Over 20 years Smoked in Last 30 Days: No e-Cigarette/Vaping Use: Never Used Patient Interested in Nicotine Replacement: No Patient Given Instructions on How to Stop Smoking: No Second Hand Smoke Exposure: No Use of substances other than those prescribed or required for medical reasons: No Substance Use Type: Opiates Currently Displaying Signs/Symptoms of Drug Intoxication Withdrawal: No Any prior treatment program specific to substance use: No Have you been hit, kicked, punched, or otherwise hurt by someone within the past year? If so, by whom?: No Do you feel safe in your current relationship?: Yes Is there a partner from a previous relationship who is making you feel unsafe now?: No Are you made to feel afraid or neglected: No Spiritual Healthcare Practices: none Buddhism Healthcare Practices: none Cultural Healthcare Practices: none Advance Directives: No Advance Directives Information Provided: No Do you have thoughts of harming others: None Do you have a plan to hurt others: No Plan Recently lost weight without trying: No Eating poorly because of decreased appetite: No Nutrition Risks: No Nutritional Risk Patient : No : No Poor oral hygiene: No service: No Sexual orientation: Straight/Heterosexual Meds Allergies Allergy/AdvReac Type Severity Reaction Status Date / Time azithromycin Allergy Itching Verified 05/25/24 19:31 levofloxacin [From Levaquin] Allergy Nightmare Verified 05/25/24 19:31 nitrofurantoin Allergy Itching Verified 05/25/24 19:31 [From Macrodantin] Active Medications: Current Medications Acetaminophen (Acetaminophen 325 Mg Tablet) 650 mg PO Q6H PRN PRN Reason: Headache/Pain Mild Scale (1-3) Last Admin: 06/04/24 05:22 Dose: 650 mg Al Hydroxide/Mg Hydroxide (Magnesium Hydrox/Alum Hydrox 30 Ml Oral.Susp) 30 ml PO Q6H PRN PRN Reason: Heartburn/Nausea Albuterol Sulfate (Albuterol Sulfate 90 Mcg 8 Gm Inhaler) 2 puff INHALE QID PRN PRN Reason: Shortness Of Breath Ascorbic Acid (Ascorbic Acid 500 Mg Tablet) 1,000 mg PO DAILY [facility] Last Admin: 06/04/24 09:08 Dose: 1,000 mg Fluconazole (Fluconazole 100 Mg Tablet) 200 mg PO DAILY ELMO Stop: 06/15/24 09:59 Last Admin: 06/04/24 09:08 Dose: 200 mg Gabapentin (Gabapentin 100 Mg Capsule) 100 mg PO DAILY PRN PRN Reason: nerve pain Last Admin: 06/03/24 17:08 Dose: 100 mg Gabapentin (Gabapentin 100 Mg Capsule) 200 mg PO BEDTIME ELMO Last Admin: 06/03/24 21:34 Dose: 200 mg Hydroxyzine HCl (Hydroxyzine Hcl 25 Mg Tablet) 25 mg PO Q6H PRN PRN Reason: Anxiety Last Admin: 06/04/24 15:17 Dose: 25 mg Ibuprofen (Ibuprofen 800 Mg Tablet) 800 mg PO TID PRN PRN Reason: Pain (Scale Score 4-6) Last Admin: 06/04/24 05:23 Dose: 800 mg Lactulose (Lactulose 20 Gm/30 Ml Solution) 40 gm PO DAILY ELMO Last Admin: 06/04/24 09:37 Dose: 40 gm Magnesium Hydroxide (Milk Of Magnesia 30 Ml Oral.Susp) 30 ml PO DAILY PRN PRN Reason: Constipation Last Admin: 06/04/24 05:22 Dose: 30 ml Ondansetron HCl (Ondansetron Odt 4 Mg Tab.Rapdis) 4 mg TRANSLINGU Q6H PRN PRN Reason: Nausea and Vomiting Last Admin: 06/04/24 15:17 Dose: 4 mg Phenazopyridine HCl (Phenazopyridine Hcl 100 Mg Tablet) 100 mg PO BIDWM ELMO Stop: 06/05/24 08:01 Last Admin: 06/04/24 09:07 Dose: 100 mg Tamsulosin HCl (Tamsulosin Hcl 0.4 Mg Capsule) 0.4 mg PO BEDTIME ELMO Last Admin: 06/03/24 21:35 Dose: 0.4 mg Trazodone HCl (Trazodone Hcl 50 Mg Tablet) 50 mg PO BEDTIME MRX1 PRN PRN Reason: Insomnia Last Admin: 06/03/24 21:35 Dose: 50 mg Home Medications ?Medication ?Instructions ?Recorded ?Confirmed ?Last Taken ?Type albuterol sulfate 90 mcg/actuation 2 puff inhalation QID PRN 05/18/24 05/26/24 Unknown History aerosol inhaler Shortness Of Breath gabapentin 100 mg capsule 100 mg PO DAILY PRN nerve pain 05/18/24 05/26/24 Unknown History gabapentin 100 mg capsule 200 mg PO BEDTIME 05/18/24 05/26/24 05/25/24 History ibuprofen 800 mg tablet 800 mg PO TID PRN Pain (Scale 05/18/24 05/26/24 Unknown History Score 4-6) lorazepam 0.5 mg tablet 0.25 mg PO BID PRN anxiety 05/18/24 05/26/24 Unknown History ascorbic acid (vitamin C) 1,000 mg 1,000 mg PO DAILY 05/26/24 05/26/24 Unknown History tablet (Vitamin C) Physical Exam 2 Vital Signs and Narrative: Vital Signs: Last Vital Signs Temp 97.8 F 06/04/24 08:55 Pulse 99 06/04/24 08:55 Resp 17 10/12/24 08:55 BP 116/75 06/04/24 08:55 Pulse Ox 98 06/04/24 08:55 O2 Del Method Room Air 06/04/24 08:55 BMI result Body Mass Index 13.4 Gen: in no acute distress HEENT: sclera anicteric, moist mucus membranes Neck: supple Lungs: clear to auscultation bilaterally Heart: regular rate and rhythm, no murmurs Abd: distended with tympany, scattered bowel sounds, generalized tenderness mostly in upper quadrants Ext: no edema Skin: warm/well-perfused Neuro: alert and oriented x3, no focal findings Psych: appropriate affect Results Labs 06/04/24 15:30 06/04/24 15:30 Labs: Laboratory Results - last 24 hr 06/04/24 15:30 MCV 93.8 MCH 32.0 MCHC 34.1 RDW 13.2 Plt Count 276 D MPV 9.3 L Immature Gran % (Auto) 0.2 Neut % (Auto) 70.8 Lymph % (Auto) 19.4 L [place] % (Auto) 7.0 Eos % (Auto) 2.0 Baso % (Auto) 0.6 Lymph # (Auto) 2.6 [place] # (Auto) 0.9 Eos # (Auto) 0.3 Baso # (Auto) 0.1 Abs Immat Gran (auto) 0.03 Absolute Neuts (auto) 9.4 H Absolute Nucleated RBC 0.000 Nucleated RBC % (auto) 0.0 Anion Gap 12 Estim Creat Clear Calc 52.4 Estimated GFR > 60 Random Glucose 94 Calcium 9.1 D Imaging Radiologist's Impressions: Impressions KUB X-Ray 06/03/24 19:55 IMPRESSION: Increased amount of stool in the colon suggesting constipation. Please correlate with clinical presentation. Electronically signed by: Oneida Pham MD 06/04/2024 07:31 AM EDT Assessment and Plan (1) Abdominal distension: Status: Acute Plan 38yo F with Jennifer-Danlos syndrome, osteogenesis imperfect, myofascial pain syndrome, migraines, juvenile osteoporosis, asthma, mood disorder, hx urinary retention requiring Joseph catheterization, hx rectocele, hx vaginal mesh surgery; recent admission for cyclobenzaprine overdose and current admission to [facility] for SI/gabapentin + trazodone overdose. Currently with Joseph for urinary retention. C/o constipation and worsening abdominal distension. Will order CT A/P with IV/PO contrast to assess for SBO/ileus though passage of gas and small amount of stool argues against complete obstruction; however she is at risk given multiple surgeries. If no obstruction will order bowel regimen to address constipation. Continue Joseph, Urology following.
[2024-06-04] MEDS: iohexoL 350 MG/ML 100 ML INFUS..BTL IV (18:40)
[2024-06-04] MEDS: Diatrizoate Meglumine, Sodium 30 ML SOLUTION PO (18:40)
[2024-06-04 20:00] VITALS: BP 132/72; PULSE 97; RESP 16; TEMP 36.3; O2SAT 98
[2024-06-04] MEDS: Gabapentin 100 MG CAPSULE 200 MG PO (20:48)
[2024-06-04] MEDS: Tamsulosin HCL 0.4 MG CAPSULE PO (20:49)
[2024-06-04] MEDS: traZODone HCL 50 MG TABLET PO (20:49)
[2024-06-05] MEDS: Acetaminophen 325 MG TABLET 650 MG PO ×2 (04:50→16:46)
[2024-06-05] MEDS: Ibuprofen 800 MG TABLET PO ×2 (04:50→16:46)
[2024-06-05 08:00] VITALS: BP 141/91; PULSE 70; RESP 18; TEMP 36.6; O2SAT 95
[2024-06-05] MEDS: hydrOXYzine HCL 25 MG TABLET PO (08:15)
[2024-06-05] MEDS: Sennosides/Docusate Sodium TABLET 2 TAB PO ×2 (08:15→20:39)
[2024-06-05] MEDS: Ondansetron ODT 4 MG TAB.RAPDIS TRANSLINGU ×2 (08:16→20:39)
[2024-06-05] MEDS: Phenazopyridine HCL 100 MG TABLET PO (08:16)
[2024-06-05] MEDS: Gabapentin 100 MG CAPSULE PO (08:16)
[2024-06-05] MEDS: Fluconazole 100 MG TABLET 200 MG PO (08:17)
[2024-06-05] MEDS: Ascorbic Acid 500 MG TABLET 1000 MG PO (08:17)
[2024-06-05] MEDS: polyethylene glycoL 3350 17 GM POWD.PACK PO ×2 (08:17→20:38)
[2024-06-05] MEDS: Lactulose 20 GM/30 ML SOLUTION 40 GM PO (08:18)
[2024-06-05] MEDS: bisacodyL 5 MG TABLET.DR 10 MG PO ×2 (08:27→20:39)
--- NOTE | 2024-06-05 10:23 | P.PNPSI_ITS ---
Subjective Subjective Date of Service: 06/05/24 Reason For Visit: Sa Subjective Notes: Conditional Voluntary Interim History: Patient was seen and discussed in rounds today. Records and plans were reviewed. She was seen by Urology and CT scan of abdomen with contrast was ordered with no findings other than the presence of the catheter. She did have 2 bowel movements yesterday after the enema. She continues to have abdominal discomfort and pain. She is also talking about not being able to go on if this persists and would have suicidal ideations and intent after leaving!. Continues to endorse anxiety and depression. No active SI on the unit. Review of Systems Review of Systems Abdominal pain/discomfort Yes all other systems are reviewed and are negative Diagnostics Vital Signs (24Hr): Vital Signs - 24 hr 06/04/24 15:05 06/04/24 20:00 06/05/24 08:00 Temperature 97.3 F 97.9 F Pulse Rate 88 97 70 Respiratory Rate 16 18 Blood Pressure 144/88 H 132/72 141/91 H Pulse Oximetry 98 98 95 Oxygen Delivery Method Room Air Room Air BMI result Body Mass Index 13.4 Labs 06/04/24 15:30 06/04/24 15:30 Labs: Laboratory Results - last 48 hr 06/04/24 15:30 WBC 13.3 H RBC 3.88 L Hgb 12.4 Hct 36.4 L MCV 93.8 MCH 32.0 MCHC 34.1 RDW 13.2 Plt Count 276 D MPV 9.3 L Immature Gran % (Auto) 0.2 Neut % (Auto) 70.8 Lymph % (Auto) 19.4 L [place] % (Auto) 7.0 Eos % (Auto) 2.0 Baso % (Auto) 0.6 Lymph # (Auto) 2.6 [place] # (Auto) 0.9 Eos # (Auto) 0.3 Baso # (Auto) 0.1 Abs Immat Gran (auto) 0.03 Absolute Neuts (auto) 9.4 H Absolute Nucleated RBC 0.000 Nucleated RBC % (auto) 0.0 Sodium 141 Potassium 3.8 Chloride 109 H Carbon Dioxide 24 Anion Gap 12 BUN 12 Creatinine 0.91 Estim Creat Clear Calc 52.4 Estimated GFR > 60 Random Glucose 94 Calcium 9.1 D Imaging Radiology Impressions: ITS Impressions KUB X-Ray 06/03/24 19:55 IMPRESSION: Increased amount of stool in the colon suggesting constipation. Please correlate with clinical presentation. Electronically signed by: Oneida Pham MD 06/04/2024 07:31 AM EDT RP Abdomen/Pelvis CT 06/04/24 18:33 IMPRESSION: Severe constipation. Otherwise unremarkable CT abdomen and pelvis. Fleischner guidelines were followed. Electronically signed by: Deyvi Collins MD 06/04/2024 07:05 PM EDT RP Medications Medications Current Medications Acetaminophen (Acetaminophen 325 Mg Tablet) 650 mg PO Q6H PRN PRN Reason: Headache/Pain Mild Scale (1-3) Last Admin: 06/05/24 04:50 Dose: 650 mg Al Hydroxide/Mg Hydroxide (Magnesium Hydrox/Alum Hydrox 30 Ml Oral.Susp) 30 ml PO Q6H PRN PRN Reason: Heartburn/Nausea Albuterol Sulfate (Albuterol Sulfate 90 Mcg 8 Gm Inhaler) 2 puff INHALE QID PRN PRN Reason: Shortness Of Breath Ascorbic Acid (Ascorbic Acid 500 Mg Tablet) 1,000 mg PO DAILY [facility] Last Admin: 06/05/24 08:17 Dose: 1,000 mg Bisacodyl (Bisacodyl 5 Mg Tablet.Dr) 10 mg PO BEDTIME ELMO Last Admin: 06/05/24 08:27 Dose: 10 mg Fluconazole (Fluconazole 100 Mg Tablet) 200 mg PO DAILY [facility] Stop: 06/15/24 09:59 Last Admin: 06/05/24 08:17 Dose: 200 mg Gabapentin (Gabapentin 100 Mg Capsule) 100 mg PO DAILY PRN PRN Reason: nerve pain Last Admin: 06/05/24 08:16 Dose: 100 mg Gabapentin (Gabapentin 100 Mg Capsule) 200 mg PO BEDTIME ELMO Last Admin: 06/04/24 20:48 Dose: 200 mg Hydroxyzine HCl (Hydroxyzine Hcl 25 Mg Tablet) 25 mg PO Q6H PRN PRN Reason: Anxiety Last Admin: 06/05/24 08:15 Dose: 25 mg Ibuprofen (Ibuprofen 800 Mg Tablet) 800 mg PO TID PRN PRN Reason: Pain (Scale Score 4-6) Last Admin: 06/05/24 04:50 Dose: 800 mg Lactulose (Lactulose 20 Gm/30 Ml Solution) 40 gm PO DAILY [facility] Last Admin: 06/05/24 08:18 Dose: 40 gm Magnesium Hydroxide (Milk Of Magnesia 30 Ml Oral.Susp) 30 ml PO DAILY PRN PRN Reason: Constipation Last Admin: 06/04/24 05:22 Dose: 30 ml Ondansetron HCl (Ondansetron Odt 4 Mg Tab.Rapdis) 4 mg TRANSLINGU Q6H PRN PRN Reason: Nausea and Vomiting Last Admin: 06/05/24 08:16 Dose: 4 mg Polyethylene Glycol (Polyethylene Glycol 3350 17 Gm Powd.Pack) 17 gm PO BID ELMO Last Admin: 06/05/24 08:17 Dose: 17 gm Senna/Docusate Sodium (Sennosides/Docusate Sodium Tablet) 2 tab PO BID [facility] Last Admin: 06/05/24 08:15 Dose: 2 tab Tamsulosin HCl (Tamsulosin Hcl 0.4 Mg Capsule) 0.4 mg PO BEDTIME [facility] Last Admin: 06/04/24 20:49 Dose: 0.4 mg Trazodone HCl (Trazodone Hcl 50 Mg Tablet) 50 mg PO BEDTIME MRX1 PRN PRN Reason: Insomnia Last Admin: 06/04/24 20:49 Dose: 50 mg Allergies Allergies Allergy/AdvReac Type Severity Reaction Status Date / Time azithromycin Allergy Itching Verified 05/25/24 19:31 levofloxacin [From Levaquin] Allergy Nightmare Verified 05/25/24 19:31 nitrofurantoin Allergy Itching Verified 05/25/24 19:31 [From Macrodantin] Assessment & Plan Assessment & Plan (1) Indwelling Joseph catheter present: Status: Acute Code(s): Z97.8 - Presence of other specified devices (2) Urinary retention: Status: Acute Code(s): R33.9 - Retention of urine, unspecified (3) Voiding dysfunction: Status: Acute Code(s): N39.8 - Other specified disorders of urinary system Plan 38yo F with Jennifer-Danlos syndrome, osteogenesis imperfect, myofascial pain syndrome, migraines, juvenile osteoporosis, asthma, mood disorder, hx urinary retention requiring Joseph catheterization, hx rectocele, hx vaginal mesh surgery; recent admission for cyclobenzaprine overdose and current admission to for SI/gabapentin + trazodone overdose. Currently with Joseph for urinary retention. C/o constipation and worsening abdominal distension. Will order CT A/P with IV/PO contrast to assess for SBO/ileus though passage of gas and small amount of stool argues against complete obstruction; however she is at risk given multiple surgeries. If no obstruction will order bowel regimen to address constipation. Continue Joseph, Urology following. 06/05: Continue current regimen and plans Reason for continued inpatient stay Substantial Risk for: rapid decompensation Time Spent With Patient Time: Total time managing care of this patient today ____ minutes.
[2024-06-05 20:00] VITALS: BP 115/88; O2SAT 98
[2024-06-05] MEDS: Gabapentin 100 MG CAPSULE 200 MG PO (20:39)
[2024-06-05] MEDS: Tamsulosin HCL 0.4 MG CAPSULE PO (20:39)
[2024-06-05] MEDS: traZODone HCL 50 MG TABLET PO (20:39)
[2024-06-06] MEDS: Loperamide HCl 2 MG CAPSULE 4 MG PO (00:27)
[2024-06-06] MEDS: traZODone HCL 50 MG TABLET PO ×3 (00:28→22:42)
[2024-06-06 05:32] VITALS: BP 159/87; PULSE 76; RESP 16; TEMP 36.4; O2SAT 98
--- NOTE | 2024-06-06 05:33 | PC.NURSE ---
PT HAS HAD THREE BOUGHTS OF LARGE FECAL INCONTINENCE THIS SHIFT. PTS STOOL APPEARS CAITLIN LIKE AND STICKY. SHE REPORTS HAVING USED SIGNIFICANT AMOUNTS OF OXYCODONE AND OXYCONTIN WELL TAKING 3,200MG OF IBUPROFEN DURING HER INTENTIONAL OVERDOSE. PT REPORTS HAVING ONE GASTROINTESTINAL BLEED IN THE PAST. PTS REPORTS FEELING DIZZY AND NAUSEOUS. RN ENCOURAGED PT TO DRINK FLUIDS. VITAL SIGNS 159/87, 110 BPM, 98% ON ROOM AIR, 97.6 F. MD LANG NOTIFIED.
[2024-06-06 08:06] VITALS: BP 117/71; PULSE 87; RESP 18; TEMP 37.1; O2SAT 98
--- NOTE | 2024-06-06 08:30 | PM.EVENT ---
Documented by User: Katia Lee PA-C 06/06/24 11:25 Event Note Date of Service: 06/06/24 Event Note: 39 yo f with recent suicide attempt with flexeril overdose 05/18-05/20, followed by 2nd attempt with trazodone, gabapentin, oxycodone, oxycontin and ibuprofen. reportedly took 3200mg ibuprofen. seen 06/04 for severe constipation, A/P CT confirmed, and she was given Miralax BID, senna/docusate BID, and bisacodyl QD. 3 episodes of fecal incontinence this AM, loose stool, reports bright red blood initially and then dark mushy stool. no solid BMs. feeling nauseas and lightheaded since this AM, brandi is helping. hx of isaak olivo tear (unknown cause per pt, no vomiting) and h pylori (tx'd but eradication never confirmed per pt), both about 12 years ago. generalized abd pain is worse with eating and drinking. PE: General: AOx3, no acute distress, states she is lightheaded when sitting up CVS: S1, S2, RRR GI: +BS, generalized tenderness throughout, distended Skin: Warm, dry Extremities: No edema Psych: Appropriate affect A/P: Pt with severe constipation [address], given miralax BID, senna/docusate BID and bisacodyl QD, now with loose stool and reported melena. stool sample did not appear black. severe constipation - no melena, labs do not indicate acute blood loss. nausea and lightheadedness likely due to withdrawal from opioids and constipation meds. - vitals stable - NSAIDs discontinued - can hold constipation meds for now if pt is having severe diarrhea but avoid loperamide for diarrhea - new order for simethicone - CBC stable 12.2 now was 12.4 on 06/04 - FOBT negative, LFTs normal Thank you for allowing me to participate in the pt's care. Please contact the medical team if any questions or concerns. Time Spent With Patient Time: Total time managing care of this patient today ____ minutes. Documented by User: Eliu Landeros MD 06/15/24 11:50 Event Note Date of Service: 06/15/24
[2024-06-06 08:35] LABS: Hematocrit 35.8 % (37.0-47.0); Hemoglobin 12.2 g/dl (12.0-16.0); Mean Corpuscular HGB Conc 34.1 g/dl (31.0-35.0); Mean Corpuscular Hemoglobin 32.3 pg (27.0-33.0); Mean Corpuscular Volume 94.7 fL (80.0-98.0); Mean Platelet Volume 9.4 fL (9.4-12.3); Platelet Count 268 X10*3/uL (160-400); Red Blood Count 3.78 X10*6/uL (4.20-5.50); Red Cell Distribution Width 13.2 % (11.0-16.0); White Blood Count 6.8 X10*3/uL (4.8-10.8)
[2024-06-06 08:44] LABS: OBS Int Ctl Valid YES; OBS1 NEGATIVE (NEGATIVE)
[2024-06-06 08:54] LABS: Alanine Aminotransferase 9 U/L (0-31); Albumin Level 4.1 g/dL (3.5-5.0); Alkaline Phosphatase 53 U/L (39-117); Anion Gap 11 (12-20); Aspartate Amino Transferase 14 U/L (5-31); Bilirubin Direct 0.1 mg/dL (0.0-0.5); Bilirubin Total 0.4 mg/dL (0.0-1.0); Blood Urea Nitrogen 7 mg/dL (9-16); Calcium 9.3 mg/dL (8.4-10.2); Carbon Dioxide 28 mmol/L (22-29); Chloride 109 mmol/L (96-108); Creatinine Clr Calc Pharmacy 62.7; Estimated Glomerular Filt Rate > 60; Glucose Random 97 mg/dL (60-115); Potassium 3.6 mmol/L (3.3-5.1); Sodium 144 mmol/L (135-145); Total Protein 6.3 g/dL (6.5-8.0)
[2024-06-06] MEDS: Fluconazole 100 MG TABLET 200 MG PO (09:04)
[2024-06-06] MEDS: polyethylene glycoL 3350 17 GM POWD.PACK PO (09:04)
[2024-06-06] MEDS: Lactulose 20 GM/30 ML SOLUTION 40 GM PO (09:04)
[2024-06-06] MEDS: Ascorbic Acid 500 MG TABLET 1000 MG PO (09:05)
[2024-06-06] MEDS: Sennosides/Docusate Sodium TABLET 2 TAB PO (09:05)
[2024-06-06] MEDS: Ondansetron ODT 4 MG TAB.RAPDIS TRANSLINGU ×2 (09:15→17:34)
[2024-06-06] MEDS: Simethicone 80 MG TAB.CHEW 160 MG PO (09:15)
[2024-06-06] MEDS: Acetaminophen 325 MG TABLET 650 MG PO ×2 (09:16→22:42)
--- NOTE | 2024-06-06 09:46 | HO.PSYCHPN ---
Subjective Subjective Date of Service: 06/06/24 Reason For Visit: Sa Subjective Notes: Conditional Voluntary Interim History: Patient was seen and discussed in rounds today. Records and plans were reviewed. Last night she had severe bouts of diarrhea and was given 4 mg of loperamide. This morning she was having diarrhea again and was reported to be black in sticky. Hospitalist consult was called and labs were ordered with no major findings. Occult blood was negative. She was placed on simethicone and suggested to hold loperamide. They will be following her. Review of Systems Review of Systems Diarrhea Yes all other systems are reviewed and are negative Mental Status Exam Mental Status Exam Narrative: In today's visit she is alert, oriented and pleasant. Normal speech. Good eye contact. Affect is appropriate and slightly anxious. No signs of psychosis. No SI. Cognitively intact. Judgment is intact Diagnostics Vital Signs (24Hr): Vital Signs - 24 hr 06/05/24 20:00 06/06/24 05:32 06/06/24 08:06 Temperature 97.6 F 98.7 F Pulse Rate 76 87 Respiratory Rate 16 18 Blood Pressure 115/88 159/87 H 117/71 Pulse Oximetry 98 98 98 Oxygen Delivery Method Room Air Room Air Room Air BMI result Body Mass Index 13.4 Labs 06/06/24 08:20 06/06/24 08:20 Labs: Laboratory Results - last 48 hr 06/04/24 06/06/24 06/06/24 15:30 08:20 Unknown WBC 13.3 H 6.8 RBC 3.88 L 3.78 L Hgb 12.4 12.2 Hct 36.4 L 35.8 L MCV 93.8 94.7 MCH 32.0 32.3 MCHC 34.1 34.1 RDW 13.2 13.2 Plt Count 276 D 268 MPV 9.3 L 9.4 Immature Gran % (Auto) 0.2 Neut % (Auto) 70.8 Lymph % (Auto) 19.4 L [place] % (Auto) 7.0 Eos % (Auto) 2.0 Baso % (Auto) 0.6 Lymph # (Auto) 2.6 [place] # (Auto) 0.9 Eos # (Auto) 0.3 Baso # (Auto) 0.1 Abs Immat Gran (auto) 0.03 Absolute Neuts (auto) 9.4 H Absolute Nucleated RBC 0.000 0.000 Nucleated RBC % (auto) 0.0 0.0 Sodium 141 144 Potassium 3.8 3.6 Chloride 109 H 109 H Carbon Dioxide 24 28 Anion Gap 12 11 L BUN 12 7 L Creatinine 0.91 0.76 Estim Creat Clear Calc 52.4 62.7 Estimated GFR > 60 > 60 Random Glucose 94 97 Calcium 9.1 D 9.3 Total Bilirubin 0.4 Direct Bilirubin 0.1 AST 14 ALT 9 Alkaline Phosphatase 53 Total Protein 6.3 L Albumin 4.1 Stool Occult Blood NEGATIVE Blood Type O Positive Antibody Screen NEGATIVE Imaging Radiology Impressions: ITS Impressions KUB X-Ray 06/03/24 19:55 IMPRESSION: Increased amount of stool in the colon suggesting constipation. Please correlate with clinical presentation. Electronically signed by: Oneida Pham MD 06/04/2024 07:31 AM EDT RP Renal Ultrasound 06/04/24 14:49 IMPRESSION: No ultrasound evidence of renal obstruction or hydronephrosis. Limited visualization of the left kidney obscured by bowel gas, exam otherwise unremarkable. Electronically signed by: Oneida Pham MD 06/05/2024 12:56 PM EDT RP Abdomen/Pelvis CT 06/04/24 18:33 IMPRESSION: Severe constipation. Otherwise unremarkable CT abdomen and pelvis. Fleischner guidelines were followed. Electronically signed by: Deyvi Collins MD 06/04/2024 07:05 PM EDT RP Medications Medications Current Medications Acetaminophen (Acetaminophen 325 Mg Tablet) 650 mg PO Q6H PRN PRN Reason: Headache/Pain Mild Scale (1-3) Last Admin: 06/06/24 09:16 Dose: 650 mg Al Hydroxide/Mg Hydroxide (Magnesium Hydrox/Alum Hydrox 30 Ml Oral.Susp) 30 ml PO Q6H PRN PRN Reason: Heartburn/Nausea Albuterol Sulfate (Albuterol Sulfate 90 Mcg 8 Gm Inhaler) 2 puff INHALE QID PRN PRN Reason: Shortness Of Breath Ascorbic Acid (Ascorbic Acid 500 Mg Tablet) 1,000 mg PO DAILY [facility] Last Admin: 06/06/24 09:05 Dose: 1,000 mg Bisacodyl (Bisacodyl 5 Mg Tablet.Dr) 10 mg PO BEDTIME [facility] Last Admin: 06/05/24 20:39 Dose: 10 mg Fluconazole (Fluconazole 100 Mg Tablet) 200 mg PO DAILY [facility] Stop: 06/15/24 09:59 Last Admin: 06/06/24 09:04 Dose: 200 mg Gabapentin (Gabapentin 100 Mg Capsule) 100 mg PO DAILY PRN PRN Reason: nerve pain Last Admin: 06/05/24 08:16 Dose: 100 mg Gabapentin (Gabapentin 100 Mg Capsule) 200 mg PO BEDTIME [facility] Last Admin: 06/05/24 20:39 Dose: 200 mg Hydroxyzine HCl (Hydroxyzine Hcl 25 Mg Tablet) 25 mg PO Q6H PRN PRN Reason: Anxiety Last Admin: 06/05/24 08:15 Dose: 25 mg Lactulose (Lactulose 20 Gm/30 Ml Solution) 40 gm PO DAILY [facility] Last Admin: 06/06/24 09:04 Dose: 40 gm Loperamide HCl (Loperamide Hcl 2 Mg Capsule) 2 mg PO Q4H PRN PRN Reason: Diarrhea Magnesium Hydroxide (Milk Of Magnesia 30 Ml Oral.Susp) 30 ml PO DAILY PRN PRN Reason: Constipation Last Admin: 06/04/24 05:22 Dose: 30 ml Ondansetron HCl (Ondansetron Odt 4 Mg Tab.Rapdis) 4 mg TRANSLINGU Q6H PRN PRN Reason: Nausea and Vomiting Last Admin: 06/06/24 09:15 Dose: 4 mg Polyethylene Glycol (Polyethylene Glycol 3350 17 Gm Powd.Pack) 17 gm PO BID [facility] Last Admin: 06/06/24 09:04 Dose: 17 gm Senna/Docusate Sodium (Sennosides/Docusate Sodium Tablet) 2 tab PO BID [facility] Last Admin: 06/06/24 09:05 Dose: 2 tab Simethicone (Simethicone 80 Mg Tab.Chew) 160 mg PO BID PRN PRN Reason: bloating/gas Last Admin: 06/06/24 09:15 Dose: 160 mg Tamsulosin HCl (Tamsulosin Hcl 0.4 Mg Capsule) 0.4 mg PO BEDTIME [facility] Last Admin: 06/05/24 20:39 Dose: 0.4 mg Trazodone HCl (Trazodone Hcl 50 Mg Tablet) 50 mg PO BEDTIME MRX1 PRN PRN Reason: Insomnia Last Admin: 06/06/24 00:28 Dose: 50 mg Allergies Allergies Allergy/AdvReac Type Severity Reaction Status Date / Time azithromycin Allergy Itching Verified 05/25/24 19:31 levofloxacin [From Levaquin] Allergy Nightmare Verified 05/25/24 19:31 nitrofurantoin Allergy Itching Verified 05/25/24 19:31 [From Macrodantin] Assessment & Plan Assessment & Plan (1) Indwelling Joseph catheter present: Status: Acute Code(s): Z97.8 - Presence of other specified devices (2) Urinary retention: Status: Acute Code(s): R33.9 - Retention of urine, unspecified (3) Voiding dysfunction: Status: Acute Code(s): N39.8 - Other specified disorders of urinary system Plan 38yo F with Jennifer-Danlos syndrome, osteogenesis imperfect, myofascial pain syndrome, migraines, juvenile osteoporosis, asthma, mood disorder, hx urinary retention requiring Joseph catheterization, hx rectocele, hx vaginal mesh surgery; recent admission for cyclobenzaprine overdose and current admission to for SI/gabapentin + trazodone overdose. Currently with Joseph for urinary retention. C/o constipation and worsening abdominal distension. Will order CT A/P with IV/PO contrast to assess for SBO/ileus though passage of gas and small amount of stool argues against complete obstruction; however she is at risk given multiple surgeries. If no obstruction will order bowel regimen to address constipation. Continue Joseph, Urology following. 06/05: Continue current regimen and plans 06/06. Continue current plans and regimen. Loperamide was put on hold. Started on simethicone by hospitalist. No indications of GI bleeding currently. Reason for continued inpatient stay Substantial Risk for: harm to self and med/psych decompensation Time Spent With Patient Time: Total time managing care of this patient today ____ minutes.
[2024-06-06 20:00] VITALS: BP 119/81; PULSE 81; RESP 14; TEMP 36.8; O2SAT 97
[2024-06-06] MEDS: Gabapentin 100 MG CAPSULE 200 MG PO (20:51)
[2024-06-06] MEDS: Tamsulosin HCL 0.4 MG CAPSULE PO (20:51)
[2024-06-06] MEDS: Gabapentin 100 MG CAPSULE PO (22:42)
[2024-06-06] MEDS: hydrOXYzine HCL 25 MG TABLET PO (22:42)
[2024-06-07 08:00] VITALS: BP 117/86; PULSE 75; RESP 18; TEMP 36.4; O2SAT 99
--- NOTE | 2024-06-07 10:15 | P.PNPSI_ITS ---
Subjective Subjective Date of Service: 06/07/24 Reason For Visit: Sa Interim History: met with patient; discussed with team; reviewed chart Patient reports that she is depressed. She apologized for not being more forthcoming earlier on in says it took her awhile to admitted to herself but she does not want to be in this world anymore... And has a plan to jump in front of a train on discharge. Patient also reports that overdose on trazodone/gabapentin was actually an intentional suicide attempt. She reports a constant deluge of self-deprecating thoughts which include that she is worthless, discussed in, and fat. Carbon Cleaner reviewed patient's history of anorexia and patient reports she sees herself as fat every day and eats very little (history of anorexia since 14 years old; was at brought up oral for a month with a feeding tube; she understands that this is a significant cause of her chronic constipation). Despite her SI, patient does want help getting better agrees to try antidepressant medication; keno writer reviewed options and risks/side effects and patient with [facility]. Also discussed pain medication management and patient agrees with [employer] which she has heard of; she also agrees to non opioid pain management and will follow-up with pain management Clinic here at [facility]. Discussed relationship with her mother and she does not SA think her mother struggles with drug addiction but has caught her trying to get into her room, which patient keeps locked, looking for her medications which she has taken in the past. Patient said she reported this to her PCP. Patient does have history of being prescribed fentanyl patch however she did not like them and weaned herself off of them; set had some left over Carbon Cleaner spoke with patient's PCP Dr. Rubio at [facility] Dr. Rubio reports concurs that patient has Osteogenesis imprefecta, Santos Mendozas Pt was on opioids for 24 years with prior PCP. With [facility] she was on Oxycodine 30mg QID and Oxycontin 30mg daily. In Sep 2023 pt was admitted to [facility] for concern for overdose. Additionally, there were other concerns including that [facility] notes referenced that patient reported being on a Fentanyl patch, which this provider had never prescribed. Additionally, there was hx of patient needing refills early and a report that her mother had used some of her medications. Also patient had significant weight loss which provider was concerned might have contributed to possible accidental overdose. Because of these concerns provider, clinic repeatedly called patient to come in and discuss pain management and reportedly reached out to her from October until January however patient did not respond or come in for appointments, having missed several. Provider reports that because of lack of communication and ongoing concern that was never addressed, Provider felt it was necessary to taper patient off pain medication which was started in January; patient was also tapered off Ativan. Provider agrees that patient does have significant medical history that is commonly treated with chronic pain medication. Carbon Cleaner discussed options with them and Dr. Rubio agrees that starting patient on a buprenorphine product is an acceptable alternative to oxycodone. Mental Status Exam Mental Status Exam Narrative: Pt is alert and oriented; behavior is cooperative, friendly and calm; patient in physical pain; cachectic; dressed in hospital attire with unkempt hair but adequate hygiene; mood is described as depressed and affect congruent, downcast; eye contact appropriate; Speech is a little slowed, a little soft, normal prosody and not pressured; psychomotor retardation present; thought process is organized and goal directed; Thought content is on feeling defeated, in despair; also on tx; otherwise pertinent to relevant topics and without any delusional content, paranoid ideations or grandiosity; positive for SI; no HI. There is no evidence of perceptual disturbance. Patients insight and judgment impaired Diagnostics Vital Signs (24Hr): Vital Signs - 24 hr 06/06/24 20:00 06/07/24 08:00 Temperature 98.2 F 97.5 F Pulse Rate 81 75 Respiratory Rate 14 18 Blood Pressure 119/81 117/86 Pulse Oximetry 97 99 Oxygen Delivery Method Room Air BMI result Body Mass Index 13.4 Labs 06/06/24 08:20 06/06/24 08:20 Labs: Laboratory Results - last 48 hr 06/06/24 06/06/24 08:20 Unknown WBC 6.8 RBC 3.78 L Hgb 12.2 Hct 35.8 L MCV 94.7 MCH 32.3 MCHC 34.1 RDW 13.2 Plt Count 268 MPV 9.4 Absolute Nucleated RBC 0.000 Nucleated RBC % (auto) 0.0 Sodium 144 Potassium 3.6 Chloride 109 H Carbon Dioxide 28 Anion Gap 11 L BUN 7 L Creatinine 0.76 Estim Creat Clear Calc 62.7 Estimated GFR > 60 Random Glucose 97 Calcium 9.3 Total Bilirubin 0.4 Direct Bilirubin 0.1 AST 14 ALT 9 Alkaline Phosphatase 53 Total Protein 6.3 L Albumin 4.1 Stool Occult Blood NEGATIVE Blood Type O Positive Antibody Screen NEGATIVE Imaging Radiology Impressions: ITS Impressions KUB X-Ray 06/03/24 19:55 IMPRESSION: Increased amount of stool in the colon suggesting constipation. Please correlate with clinical presentation. Electronically signed by: Oneida Pham MD 06/04/2024 07:31 AM EDT RP Renal Ultrasound 06/04/24 14:49 IMPRESSION: No ultrasound evidence of renal obstruction or hydronephrosis. Limited visualization of the left kidney obscured by bowel gas, exam otherwise unremarkable. Electronically signed by: Oneida Pham MD 06/05/2024 12:56 PM EDT RP Abdomen/Pelvis CT 06/04/24 18:33 IMPRESSION: Severe constipation. Otherwise unremarkable CT abdomen and pelvis. Fleischner guidelines were followed. Electronically signed by: Deyvi Collins MD 06/04/2024 07:05 PM EDT RP Medications Medications Current Medications Acetaminophen (Acetaminophen 325 Mg Tablet) 650 mg PO Q6H PRN PRN Reason: Headache/Pain Mild Scale (1-3) Last Admin: 06/06/24 22:42 Dose: 650 mg Al Hydroxide/Mg Hydroxide (Magnesium Hydrox/Alum Hydrox 30 Ml Oral.Susp) 30 ml PO Q6H PRN PRN Reason: Heartburn/Nausea Albuterol Sulfate (Albuterol Sulfate 90 Mcg 8 Gm Inhaler) 2 puff INHALE QID PRN PRN Reason: Shortness Of Breath Ascorbic Acid (Ascorbic Acid 500 Mg Tablet) 1,000 mg PO DAILY ELMO Last Admin: 06/06/24 09:05 Dose: 1,000 mg Bisacodyl (Bisacodyl 5 Mg Tablet.Dr) 10 mg PO BEDTIME ELMO Last Admin: 06/06/24 21:42 Dose: Not Given Fluconazole (Fluconazole 100 Mg Tablet) 200 mg PO DAILY ELMO Stop: 06/15/24 09:59 Last Admin: 06/06/24 09:04 Dose: 200 mg Gabapentin (Gabapentin 100 Mg Capsule) 100 mg PO DAILY PRN PRN Reason: nerve pain Last Admin: 06/06/24 22:42 Dose: 100 mg Gabapentin (Gabapentin 100 Mg Capsule) 200 mg PO BEDTIME ELMO Last Admin: 06/06/24 20:51 Dose: 200 mg Hydroxyzine HCl (Hydroxyzine Hcl 25 Mg Tablet) 25 mg PO Q6H PRN PRN Reason: Anxiety Last Admin: 06/06/24 22:42 Dose: 25 mg Lactulose (Lactulose 20 Gm/30 Ml Solution) 40 gm PO DAILY ELMO Last Admin: 06/06/24 09:04 Dose: 40 gm Loperamide HCl (Loperamide Hcl 2 Mg Capsule) 2 mg PO Q4H PRN PRN Reason: Diarrhea Magnesium Hydroxide (Milk Of Magnesia 30 Ml Oral.Susp) 30 ml PO DAILY PRN PRN Reason: Constipation Last Admin: 06/04/24 05:22 Dose: 30 ml Ondansetron HCl (Ondansetron Odt 4 Mg Tab.Rapdis) 4 mg TRANSLINGU Q6H PRN PRN Reason: Nausea and Vomiting Last Admin: 06/06/24 17:34 Dose: 4 mg Polyethylene Glycol (Polyethylene Glycol 3350 17 Gm Powd.Pack) 17 gm PO BID [facility] Last Admin: 06/06/24 21:42 Dose: Not Given Senna/Docusate Sodium (Sennosides/Docusate Sodium Tablet) 2 tab PO BID ELMO Last Admin: 06/06/24 21:42 Dose: Not Given Simethicone (Simethicone 80 Mg Tab.Chew) 160 mg PO BID PRN PRN Reason: bloating/gas Last Admin: 06/06/24 09:15 Dose: 160 mg Tamsulosin HCl (Tamsulosin Hcl 0.4 Mg Capsule) 0.4 mg PO BEDTIME ELMO Last Admin: 06/06/24 20:51 Dose: 0.4 mg Trazodone HCl (Trazodone Hcl 50 Mg Tablet) 50 mg PO BEDTIME ELMO Last Admin: 06/06/24 22:42 Dose: 50 mg Trazodone HCl (Trazodone Hcl 50 Mg Tablet) 50 mg PO BEDTIME PRN PRN Reason: Insomnia Last Admin: 06/06/24 22:42 Dose: 50 mg Allergies Allergies Allergy/AdvReac Type Severity Reaction Status Date / Time azithromycin Allergy Itching Verified 05/25/24 19:31 levofloxacin [From Levaquin] Allergy Nightmare Verified 05/25/24 19:31 nitrofurantoin Allergy Itching Verified 05/25/24 19:31 [From Macrodantin] Assessment & Plan Assessment & Plan (1) Indwelling Joseph catheter present: Status: Acute Code(s): Z97.8 - Presence of other specified devices (2) Urinary retention: Status: Acute Code(s): R33.9 - Retention of urine, unspecified (3) Voiding dysfunction: Status: Acute Code(s): N39.8 - Other specified disorders of urinary system Plan HPI: Patient is a 39-year-old female with history of Jennifer Danlos syndrome, osteogenesis imperfecta, myofascial pain syndrome, migraines, juvenile osteoporosis, asthma, and mood disorder with history of rectocele, vaginal mesh surgery, urinary retention requiring Joseph catheterization, which was recently restarted. P atient?presented?to?[facility]?on?924?following?intentional?overdose?on?muscle?rel axers.??Patient?lujan mary?was?immediately?transferred?to?medical?floor?for?urinary?retention;?she?stab ilized?there?and?was?discharged.?? She?presents?again?for?overdose On?gabapentin?and?trazodone,?Which?she?asserts?was?not?intentional (though later admits it was),?saying?she?just?wanted?to?sleep?and?get?relief?from?chronic?pain H owever?she?agrees?it?was?impulsive?and?unsafe.??Patient?currently?denies?any?SI. ??She?reports?howeve r?that?life?has?been?very?difficultff?pain?medications,?having?been?prescribed?o pioids?consistently?for?the?past?24?years,? as?well?as?Ativan.??Patient?agrees?she?needs Help?stabilizing?and?coping. Relevant Medical/psych History: Patient was on opiates scheduled for 24 years to manage chronic medical comorbidities, resulting in hx of multiple fractures/falls and subsequent chronic pain. Pt denies any hx of substance abuse, including cannabis. She did screen positive for Fentanyl at first admission in October 2024 but is adamant she's never used it in her life and no quantitative labs done (leaving Fentanyl use inconclusive). Patients long-time physician of [address] Brigido Dietrich retired and new PCP tapered her off and discontinued all opioid pain management (also tapered and dc'd ativan). Patient reports she has been in constant pain and discomfort since then and has felt very frustrated and challenged to enjoy life, sometimes challenging her desire to live. Discussed?case?with?ORACLE PROGRAMMER ANALYST Vianey Dunaway from pain management clinic: pt seen on 05/24. ORACLE PROGRAMMER ANALYST Gume agrees that patients medical comorbidities and subsequent chronic pain syndrome are commonly treated with opioid pain management. She recommends either Butrans patch or preferably [employer] films (a form of Buprenorphin and titrating it to 150mg BID). Pt is also appropriate to get other nerve blocking treatments at pain clinic who will f/u with pt. Carbon Cleaner spoke with patient's PCP Dr. Rubio at [facility] Dr. Rubio reports concurs that patient has Osteogenesis imprefecta, Ehlos Danlos Pt was on opioids for 24 years with prior PCP. With [facility] she was on Oxycodine 30mg QID and Oxycontin 30mg daily. In Sep 2023 pt was admitted to [facility] for concern for overdose. Additionally, there were other concerns including that [facility] notes referenced that patient reported being on a Fentanyl patch, which this provider had never prescribed. Additionally, there was hx of patient needing refills early and a report that her mother had used some of her medications. Also patient had significant weight loss which provider was concerned might have contributed to possible accidental overdose. Because of these concerns provider, clinic repeatedly called patient to come in and discuss pain management and reportedly reached out to her from October until January however patient did not respond or come in for appointments, having missed several. Provider reports that because of lack of communication and ongoing concern that was never addressed, Provider felt it was necessary to taper patient off pain medication which was started in January; patient was also tapered off Ativan. Provider agrees that patient does have significant medical history that is commonly treated with chronic pain medication. Carbon Cleaner discussed options with them and Dr. Rubio agrees that starting patient on a buprenorphine product is an acceptable alternative to oxycodone. Vraylar since depressed and hx of manic-esque IMPRESSION: Patient's?depression?and?SI?seem?to?have significant?situational component?as?she?is?No?longer?receiving?pain?management?for?severe,?chronic?pain . P atient?has?no?known?history?of?substance?abuse.??Although?she?did?screen?positiv e?for?fentanyl (on?10/27/2023 and?05/18/2024), No?quantitative?analysis?was?done. ?This?mean that?fentanyl?screen?could?very?well?be?a?false-positive?result (which is not uncommon). Medical?decision?should?not?be?based?on?only?a?positive?screen?for?fentanyl. Patient does struggle with SI and with her chronic?pain?And?poor?support?will?likely?continue?to?produce?mood?instability.? ?Treatment?plan?will?include?keno writer/team?discussion?with Outpatient?PCP?regarding?plan?for?treatment. Hospital course: 06/05: Continue current regimen and plans 06/06. Continue current plans and regimen. Loperamide was put on hold. Started on simethicone by hospitalist. No indications of GI bleeding currently. -seen by GI: C/o constipation and worsening abdominal distension. Will order CT A/P with IV/PO contrast to assess for SBO/ileus though passage of gas and small amount of stool argues against complete obstruction; however she is at risk given multiple surgeries. If no obstruction will order bowel regimen to address constipation. Continue Joseph, Urology following. 06/07 Patient reports that she is depressed. She apologized for not being more forthcoming earlier on in says it took her awhile to admitted to herself but she does not want to be in this world anymore... And has a plan to jump in front of a train on discharge. Patient also reports that overdose on trazodone/gabapentin was actually an intentional suicide attempt. She reports a constant deluge of self-deprecating thoughts which include that she is worthless, discussed in, and fat. Carbon Cleaner reviewed patient's history of anorexia and patient reports she sees herself as fat every day and eats very little (history of anorexia since 14 years old; was at brought up oral for a month with a feeding tube; she understands that this is a significant cause of her chronic constipation). Despite her SI, patient does want help getting better agrees to try antidepressant medication; keno writer reviewed options and risks/side effects and patient with Vraylar. Also discussed pain medication management and patient agrees with [employer] which she has heard of; she also agrees to non opioid pain management and will follow-up with pain management Clinic here at [place]. Discussed relationship with her mother and she does not SA think her mother struggles with drug addiction but has caught her trying to get into her room, which patient keeps locked, looking for her medications which she has taken in the past. Patient said she reported this to her PCP. Patient does have history of being prescribed fentanyl patch however she did not like them and weaned herself off of them; set had some left over PLAN: CV? One-to-one?since?indwelling?Joseph Start Vraylar 1.5 mg daily (Vraylar chosen since patient has depression but also history of manic type behaviors, possibly episode with some delusions and AH) Patient agrees to [employer] films for pain management Patient educated on: diagnosis, medication risk/benefits, substance abuse, therapeutic strategies and medical condition Informed Consent: understands Reason for continued inpatient stay Substantial Risk for: harm to self, rapid decompensation and med/psych decompensation Time Spent With Patient Time: Total time managing care of this patient today ____ minutes.
[2024-06-07] MEDS: Ascorbic Acid 500 MG TABLET 1000 MG PO (10:59)
[2024-06-07] MEDS: Fluconazole 100 MG TABLET 200 MG PO (11:00)
[2024-06-07] MEDS: Gabapentin 100 MG CAPSULE PO (11:05)
[2024-06-07] MEDS: Acetaminophen 325 MG TABLET 650 MG PO ×2 (11:05→20:48)
[2024-06-07] MEDS: Simethicone 80 MG TAB.CHEW 160 MG PO (11:06)
[2024-06-07] MEDS: Cariprazine HCl 1.5 MG CAPSULE PO (18:40)
[2024-06-07] MEDS: Tamsulosin HCL 0.4 MG CAPSULE PO (20:48)
[2024-06-07] MEDS: Gabapentin 100 MG CAPSULE 200 MG PO (20:48)
[2024-06-07] MEDS: traZODone HCL 50 MG TABLET PO ×2 (20:49→21:39)
[2024-06-08] MEDS: Acetaminophen 325 MG TABLET 650 MG PO ×2 (04:10→22:44)
[2024-06-08 08:30] VITALS: BP 127/92; PULSE 87; RESP 18; TEMP 36.5; O2SAT 98
[2024-06-08] MEDS: Fluconazole 100 MG TABLET 200 MG PO (09:04)
[2024-06-08] MEDS: Ascorbic Acid 500 MG TABLET 1000 MG PO (09:04)
[2024-06-08] MEDS: Cariprazine HCl 1.5 MG CAPSULE PO (09:04)
--- NOTE | 2024-06-08 16:47 | P.PNPSI_ITS ---
Subjective Subjective Date of Service: 06/08/24 Reason For Visit: Sa Interim History: Met with patient; discussed with team; discussed with urology Patient remains depressed with suicidal thinking however is trying to be hopeful and has tolerated Vraylar and says will continue, with increased dose; grateful for help getting Belbuca through prior authorization. Discussed case with urology who recommends remaining with indwelling Joseph since failed voiding attempt on 06/03; will continue to follow Mental Status Exam Mental Status Exam Narrative: Pt is alert and oriented; behavior is cooperative, friendly and calm; patient in physical pain; cachectic; dressed in hospital attire with unkempt hair but adequate hygiene; mood is described as depressed and affect congruent, downcast; eye contact appropriate; Speech is a little slowed, a little soft, normal prosody and not pressured; psychomotor retardation present; thought process is organized and goal directed; Thought content is on feeling defeated, in despair; also on tx; otherwise pertinent to relevant topics and without any delusional content, paranoid ideations or grandiosity; positive for SI; no HI. There is no evidence of perceptual disturbance. Patients insight and judgment impaired Diagnostics Vital Signs (24Hr): Vital Signs - 24 hr 06/08/24 08:30 Temperature 97.7 F Pulse Rate 87 Respiratory Rate 18 Blood Pressure 127/92 H Pulse Oximetry 98 Oxygen Delivery Method Room Air BMI result Body Mass Index 13.4 Labs 06/06/24 08:20 06/06/24 08:20 Labs: 06/04 CT/CT abdomen pelvis w IV con IMPRESSION: Severe constipation. Otherwise unremarkable CT abdomen and pelvis. 06/04 US/US renal BI IMPRESSION: No ultrasound evidence of renal obstruction or hydronephrosis. Limited visualization of the left kidney obscured by bowel gas, exam otherwise unremarkable. Imaging Radiology Impressions: ITS Impressions KUB X-Ray 06/03/24 19:55 IMPRESSION: Increased amount of stool in the colon suggesting constipation. Please correlate with clinical presentation. Electronically signed by: Oneida Pham MD 06/04/2024 07:31 AM EDT Renal Ultrasound 06/04/24 14:49 IMPRESSION: No ultrasound evidence of renal obstruction or hydronephrosis. Limited visualization of the left kidney obscured by bowel gas, exam otherwise unremarkable. Electronically signed by: Oneida Pham MD 06/05/2024 12:56 PM EDT RP Abdomen/Pelvis CT 06/04/24 18:33 IMPRESSION: Severe constipation. Otherwise unremarkable CT abdomen and pelvis. Fleischner guidelines were followed. Electronically signed by: Deyvi Collins MD 06/04/2024 07:05 PM EDT RP Medications Medications Current Medications Acetaminophen (Acetaminophen 325 Mg Tablet) 650 mg PO Q6H PRN PRN Reason: Headache/Pain Mild Scale (1-3) Last Admin: 06/08/24 04:10 Dose: 650 mg Al Hydroxide/Mg Hydroxide (Magnesium Hydrox/Alum Hydrox 30 Ml Oral.Susp) 30 ml PO Q6H PRN PRN Reason: Heartburn/Nausea Albuterol Sulfate (Albuterol Sulfate 90 Mcg 8 Gm Inhaler) 2 puff INHALE QID PRN PRN Reason: Shortness Of Breath Ascorbic Acid (Ascorbic Acid 500 Mg Tablet) 1,000 mg PO DAILY [facility] Last Admin: 06/08/24 09:04 Dose: 1,000 mg Bisacodyl (Bisacodyl 5 Mg Tablet.Dr) 10 mg PO BEDTIME [facility] Last Admin: 06/07/24 20:51 Dose: Not Given Cariprazine (Cariprazine Hcl 3 Mg Capsule) 3 mg PO DAILY [facility] Fluconazole (Fluconazole 100 Mg Tablet) 200 mg PO DAILY [facility] Stop: 06/15/24 09:59 Last Admin: 06/08/24 09:04 Dose: 200 mg Gabapentin (Gabapentin 100 Mg Capsule) 100 mg PO DAILY PRN PRN Reason: nerve pain Last Admin: 06/07/24 11:05 Dose: 100 mg Gabapentin (Gabapentin 100 Mg Capsule) 200 mg PO BEDTIME [facility] Last Admin: 06/07/24 20:48 Dose: 200 mg Hydroxyzine HCl (Hydroxyzine Hcl 25 Mg Tablet) 25 mg PO Q6H PRN PRN Reason: Anxiety Last Admin: 06/06/24 22:42 Dose: 25 mg Lactulose (Lactulose 20 Gm/30 Ml Solution) 40 gm PO DAILY [facility] Last Admin: 06/08/24 09:05 Dose: Not Given Loperamide HCl (Loperamide Hcl 2 Mg Capsule) 2 mg PO Q4H PRN PRN Reason: Diarrhea Magnesium Hydroxide (Milk Of Magnesia 30 Ml Oral.Susp) 30 ml PO DAILY PRN PRN Reason: Constipation Last Admin: 06/04/24 05:22 Dose: 30 ml Patient Own Belbuca (75mg) 1 each PO BID [facility] Ondansetron HCl (Ondansetron Odt 4 Mg Tab.Rapdis) 4 mg TRANSLINGU Q6H PRN PRN Reason: Nausea and Vomiting Last Admin: 06/06/24 17:34 Dose: 4 mg Polyethylene Glycol (Polyethylene Glycol 3350 17 Gm Powd.Pack) 17 gm PO BID [facility] Last Admin: 06/08/24 09:05 Dose: Not Given Senna/Docusate Sodium (Sennosides/Docusate Sodium Tablet) 2 tab PO BID [facility] Last Admin: 06/08/24 09:05 Dose: Not Given Simethicone (Simethicone 80 Mg Tab.Chew) 160 mg PO BID PRN PRN Reason: bloating/gas Last Admin: 06/07/24 11:06 Dose: 160 mg Tamsulosin HCl (Tamsulosin Hcl 0.4 Mg Capsule) 0.4 mg PO BEDTIME [facility] Last Admin: 06/07/24 20:48 Dose: 0.4 mg Trazodone HCl (Trazodone Hcl 50 Mg Tablet) 50 mg PO BEDTIME [facility] Last Admin: 06/07/24 20:49 Dose: 50 mg Trazodone HCl (Trazodone Hcl 50 Mg Tablet) 50 mg PO BEDTIME PRN PRN Reason: Insomnia Last Admin: 06/07/24 21:39 Dose: 50 mg Allergies Allergies Allergy/AdvReac Type Severity Reaction Status Date / Time azithromycin Allergy Itching Verified 05/25/24 19:31 levofloxacin [From Levaquin] Allergy Nightmare Verified 05/25/24 19:31 nitrofurantoin Allergy Itching Verified 05/25/24 19:31 [From Macrodantin] Assessment & Plan Assessment & Plan (1) Indwelling Joseph catheter present: Status: Acute Code(s): Z97.8 - Presence of other specified devices (2) Urinary retention: Status: Acute Code(s): R33.9 - Retention of urine, unspecified (3) Voiding dysfunction: Status: Acute Code(s): N39.8 - Other specified disorders of urinary system Plan HPI: Patient is a 39-year-old female with history of Jeninfer Danlos syndrome, osteogenesis imperfecta, myofascial pain syndrome, migraines, juvenile osteoporosis, asthma, and mood disorder with history of rectocele, vaginal mesh surgery, urinary retention requiring Joseph catheterization, which was recently restarted. P atient?presented?to?[facility]?on?924?following?intentional?overdose?on?muscle?rel axers.??Patient?lujan mary?was?immediately?transferred?to?medical?floor?for?urinary?retention;?she?stab ilized?there?and?was?discharged.?? She?presents?again?for?overdose On?gabapentin?and?trazodone,?Which?she?asserts?was?not?intentional (though later admits it was),?saying?she?just?wanted?to?sleep?and?get?relief?from?chronic?pain H owever?she?agrees?it?was?impulsive?and?unsafe.??Patient?currently?denies?any?SI. ??She?reports?howeve r?that?life?has?been?very?difficultff?pain?medications,?having?been?prescribed?o pioids?consistently?for?the?past?24?years,? as?well?as?Ativan.??Patient?agrees?she?needs Help?stabilizing?and?coping. Relevant Medical/psych History: Patient was on opiates scheduled for 24 years to manage chronic medical comorbidities, resulting in hx of multiple fractures/falls and subsequent chronic pain. Pt denies any hx of substance abuse, including cannabis. She did screen positive for Fentanyl at first admission in October 2024 but is adamant she's never used it in her life and no quantitative labs done (leaving Fentanyl use inconclusive). Patients long-time physician of [address] Brigido Dietrich retired and new PCP tapered her off and discontinued all opioid pain management (also tapered and dc'd ativan). Patient reports she has been in constant pain and discomfort since then and has felt very frustrated and challenged to enjoy life, sometimes challenging her desire to live. Discussed?case?with?COAT MAKER Vianey Dunaway from pain management clinic: pt seen on 05/24. MAGDA Dunaway agrees that patients medical comorbidities and subsequent chronic pain syndrome are commonly treated with opioid pain management. She recommends either Butrans patch or preferably Belbucha films (a form of Buprenorphin and titrating it to 150mg BID). Pt is also appropriate to get other nerve blocking treatments at pain clinic who will f/u with pt. Residential Service Technician spoke with patient's PCP Dr. Rubio at [facility] Dr. Rubio reports concurs that patient has Osteogenesis imprefecta, Ehlos Danlos Pt was on opioids for 24 years with prior PCP. With [facility] she was on Oxycodine 30mg QID and Oxycontin 30mg daily. In Sep 2023 pt was admitted to [facility] for concern for overdose. Additionally, there were other concerns including that [facility] notes referenced that patient reported being on a Fentanyl patch, which this provider had never prescribed. Additionally, there was hx of patient needing refills early and a report that her mother had used some of her medications. Also patient had significant weight loss which provider was concerned might have contributed to possible accidental overdose. Because of these concerns provider, clinic repeatedly called patient to come in and discuss pain management and reportedly reached out to her from October until January however patient did not respond or come in for appointments, having missed several. Provider reports that because of lack of communication and ongoing concern that was never addressed, Provider felt it was necessary to taper patient off pain medication which was started in January; patient was also tapered off Ativan. Provider agrees that patient does have significant medical history that is commonly treated with chronic pain medication. Residential Service Technician discussed options with them and Dr. Rubio agrees that starting patient on a buprenorphine product is an acceptable alternative to oxycodone. Vraylar since depressed and hx of manic-esque IMPRESSION: Patient's?depression?and?SI?seem?to?have significant?situational component?as?she?is?No?longer?receiving?pain?management?for?severe,?chronic?pain . P atient?has?no?known?history?of?substance?abuse.??Although?she?did?screen?positiv e?for?fentanyl (on?10/27/2023 and?05/18/2024), No?quantitative?analysis?was?done. ?This?mean that?fentanyl?screen?could?very?well?be?a?false-positive?result (which is not uncommon). Medical?decision?should?not?be?based?on?only?a?positive?screen?for?fentanyl. Patient does struggle with SI and with her chronic?pain?And?poor?support?will?likely?continue?to?produce?mood?instability.? ?Treatment?plan?will?include?freelance copywriter/team?discussion?with Outpatient?PCP?regarding?plan?for?treatment. Hospital course: 06/05: Continue current regimen and plans 06/06. Continue current plans and regimen. Loperamide was put on hold. Started on simethicone by hospitalist. No indications of GI bleeding currently. -seen by GI: C/o constipation and worsening abdominal distension. Will order CT A/P with IV/PO contrast to assess for SBO/ileus though passage of gas and small amount of stool argues against complete obstruction; however she is at risk given multiple surgeries. If no obstruction will order bowel regimen to address constipation. Continue Joseph, Urology following. 06/07 Patient reports that she is depressed. She apologized for not being more forthcoming earlier on in says it took her awhile to admitted to herself but she does not want to be in this world anymore... And has a plan to jump in front of a train on discharge. Patient also reports that overdose on trazodone/gabapentin was actually an intentional suicide attempt. She reports a constant deluge of self-deprecating thoughts which include that she is worthless, discussed in, and fat. Residential Service Technician reviewed patient's history of anorexia and patient reports she sees herself as fat every day and eats very little (history of anorexia since 14 years old; was at brought up oral for a month with a feeding tube; she understands that this is a significant cause of her chronic constipation). Despite her SI, patient does want help getting better agrees to try antidepressant medication; freelance copywriter reviewed options and risks/side effects and patient with [facility]. Also discussed pain medication management and patient agrees with Belbuca which she has heard of; she also agrees to non opioid pain management and will follow-up with pain management Clinic here at [facility]. Discussed relationship with her mother and she does not SA think her mother struggles with drug addiction but has caught her trying to get into her room, which patient keeps locked, looking for her medications which she has taken in the past. Patient said she reported this to her PCP. Patient does have history of being prescribed fentanyl patch however she did not like them and weaned herself off of them; set had some left over 06/08 Patient remains depressed with suicidal thinking however is trying to be hopeful and has tolerated Vraylar and says will continue, with increased dose; grateful for help getting Belbuca through prior authorization. -Discussed case with urology who recommends remaining with indwelling Joseph since failed voiding attempt on 06/03; will continue to follow PLAN: CV? One-to-one?since?indwelling?Joseph Increase to Vraylar 3 mg daily (Vraylar chosen since patient has depression but also history of manic type behaviors, possibly episode with some delusions and AH) Patient agrees to Belbuca films for pain management (history of fentanyl patch, morphine, oxycodone, OxyContin) Patient educated on: diagnosis, medication risk/benefits and medical condition Informed Consent: understands Reason for continued inpatient stay Substantial Risk for: harm to self and rapid decompensation Time Spent With Patient Time: Total time managing care of this patient today ____ minutes.
[2024-06-08 20:00] VITALS: BP 111/77; PULSE 85; RESP 16; TEMP 37.1; O2SAT 98
[2024-06-08] MEDS: Sennosides/Docusate Sodium TABLET 2 TAB PO (22:43)
[2024-06-08] MEDS: Gabapentin 100 MG CAPSULE 200 MG PO (22:44)
[2024-06-08] MEDS: Tamsulosin HCL 0.4 MG CAPSULE PO (22:44)
[2024-06-08] MEDS: Gabapentin 100 MG CAPSULE PO (22:44)
[2024-06-08] MEDS: hydrOXYzine HCL 25 MG TABLET PO (22:45)
[2024-06-08] MEDS: traZODone HCL 50 MG TABLET PO ×2 (22:45)
[2024-06-09] MEDS: hydrOXYzine HCL 25 MG TABLET PO (04:38)
[2024-06-09 07:00] VITALS: BMI 16.9
[2024-06-09 08:00] VITALS: BP 127/84; PULSE 92; RESP 17; TEMP 36.8; O2SAT 97
[2024-06-09] MEDS: Fluconazole 100 MG TABLET 200 MG PO (08:24)
[2024-06-09] MEDS: Cariprazine HCl 3 MG CAPSULE PO (08:24)
[2024-06-09] MEDS: Ascorbic Acid 500 MG TABLET 1000 MG PO (08:24)
--- NOTE | 2024-06-09 09:53 | HO.PSYCHPN ---
Subjective Subjective Date of Service: 06/09/24 Reason For Visit: Sa Interim History: Met with patient; discussed with team Patient reports she remains depressed, with SI. Patient also reports she had a very difficult time sleeping last night feeling very upset following a conversation she had on the phone with her mother. Patient expressed to her mother she is feeling hurt that her mom has not visited or called throughout her admission, even on patient's birthday; she says her mom was on apologetic. Patient also challenged her mom regarding her mom's past comment that patient could burn in hell with her father (who 2 years ago); mom remained unapologetic. Patient tells production underwriter she has no idea why her mom said this other than that her mom is crazy... Subsequently patient reports that throughout the night, she had racing thoughts and no sleep. Discussed medications and patient and pt is eager to try [employer] for pain management. dc'd gabapentin; pt said has never helped for pain or anxiety Adding clonidine at bedtime to help w/ sleep, anxiety Yesterday, pt reported and nurse corroborated that Van bag containing urine was blood-tinged; discussed with Urologist, deemed likely micro trauma, and to keep van in place; recently failed voiding trial on 06/03 Mental Status Exam Mental Status Exam Narrative: Pt is alert and oriented; behavior is cooperative, friendly and calm; patient in physical pain; cachectic; dressed in hospital attire with unkempt hair but adequate hygiene; mood is described as depressed and affect congruent, downcast; eye contact appropriate; Speech is a little slowed, a little soft, normal prosody and not pressured; psychomotor retardation present; thought process is organized and goal directed; Thought content is on feeling defeated, in despair; also on tx; otherwise pertinent to relevant topics and without any delusional content, paranoid ideations or grandiosity; positive for SI; no HI. There is no evidence of perceptual disturbance. Patients insight and judgment impaired Diagnostics Vital Signs (24Hr): Vital Signs - 24 hr 06/08/24 20:00 06/09/24 08:00 Temperature 98.7 F 98.2 F Pulse Rate 85 92 Respiratory Rate 16 17 Blood Pressure 111/77 127/84 Pulse Oximetry 98 97 Oxygen Delivery Method Room Air BMI result Body Mass Index 13.4 Labs 06/06/24 08:20 06/06/24 08:20 Imaging Radiology Impressions: ITS Impressions KUB X-Ray 06/03/24 19:55 IMPRESSION: Increased amount of stool in the colon suggesting constipation. Please correlate with clinical presentation. Electronically signed by: Oneida Pham MD 06/04/2024 07:31 AM EDT RP Renal Ultrasound 06/04/24 14:49 IMPRESSION: No ultrasound evidence of renal obstruction or hydronephrosis. Limited visualization of the left kidney obscured by bowel gas, exam otherwise unremarkable. Electronically signed by: Oneida Pham MD 06/05/2024 12:56 PM EDT RP Abdomen/Pelvis CT 06/04/24 18:33 IMPRESSION: Severe constipation. Otherwise unremarkable CT abdomen and pelvis. Fleischner guidelines were followed. Electronically signed by: Deyvi Collins MD 06/04/2024 07:05 PM EDT RP Medications Medications Current Medications Acetaminophen (Acetaminophen 325 Mg Tablet) 650 mg PO Q6H PRN PRN Reason: Headache/Pain Mild Scale (1-3) Last Admin: 06/08/24 22:44 Dose: 650 mg Al Hydroxide/Mg Hydroxide (Magnesium Hydrox/Alum Hydrox 30 Ml Oral.Susp) 30 ml PO Q6H PRN PRN Reason: Heartburn/Nausea Albuterol Sulfate (Albuterol Sulfate 90 Mcg 8 Gm Inhaler) 2 puff INHALE QID PRN PRN Reason: Shortness Of Breath Ascorbic Acid (Ascorbic Acid 500 Mg Tablet) 1,000 mg PO DAILY [facility] Last Admin: 06/09/24 08:24 Dose: 1,000 mg Bisacodyl (Bisacodyl 5 Mg Tablet.Dr) 10 mg PO BEDTIME [facility] Last Admin: 06/08/24 22:04 Dose: Not Given Cariprazine (Cariprazine Hcl 3 Mg Capsule) 3 mg PO DAILY [facility] Last Admin: 06/09/24 08:24 Dose: 3 mg Fluconazole (Fluconazole 100 Mg Tablet) 200 mg PO DAILY [facility] Stop: 06/15/24 09:59 Last Admin: 06/09/24 08:24 Dose: 200 mg Gabapentin (Gabapentin 100 Mg Capsule) 100 mg PO DAILY PRN PRN Reason: nerve pain Last Admin: 06/08/24 22:44 Dose: 100 mg Gabapentin (Gabapentin 100 Mg Capsule) 200 mg PO BEDTIME [facility] Last Admin: 06/08/24 22:44 Dose: 200 mg Hydroxyzine HCl (Hydroxyzine Hcl 25 Mg Tablet) 25 mg PO Q6H PRN PRN Reason: Anxiety Last Admin: 06/09/24 04:38 Dose: 25 mg Lactulose (Lactulose 20 Gm/30 Ml Solution) 40 gm PO DAILY [facility] Last Admin: 06/09/24 09:07 Dose: Not Given Loperamide HCl (Loperamide Hcl 2 Mg Capsule) 2 mg PO Q4H PRN PRN Reason: Diarrhea Magnesium Hydroxide (Milk Of Magnesia 30 Ml Oral.Susp) 30 ml PO DAILY PRN PRN Reason: Constipation Last Admin: 06/04/24 05:22 Dose: 30 ml Patient Own Belbuca (75mg) 1 each PO BID [facility] Ondansetron HCl (Ondansetron Odt 4 Mg Tab.Rapdis) 4 mg TRANSLINGU Q6H PRN PRN Reason: Nausea and Vomiting Last Admin: 06/06/24 17:34 Dose: 4 mg Polyethylene Glycol (Polyethylene Glycol 3350 17 Gm Powd.Pack) 17 gm PO BID [facility] Last Admin: 06/09/24 09:07 Dose: Not Given Senna/Docusate Sodium (Sennosides/Docusate Sodium Tablet) 2 tab PO BID [facility] Last Admin: 06/09/24 09:07 Dose: Not Given Simethicone (Simethicone 80 Mg Tab.Chew) 160 mg PO BID PRN PRN Reason: bloating/gas Last Admin: 06/07/24 11:06 Dose: 160 mg Tamsulosin HCl (Tamsulosin Hcl 0.4 Mg Capsule) 0.4 mg PO BEDTIME [facility] Last Admin: 06/08/24 22:44 Dose: 0.4 mg Trazodone HCl (Trazodone Hcl 50 Mg Tablet) 50 mg PO BEDTIME [facility] Last Admin: 06/08/24 22:45 Dose: 50 mg Trazodone HCl (Trazodone Hcl 50 Mg Tablet) 50 mg PO BEDTIME PRN PRN Reason: Insomnia Last Admin: 06/08/24 22:45 Dose: 50 mg Allergies Allergies Allergy/AdvReac Type Severity Reaction Status Date / Time azithromycin Allergy Itching Verified 05/25/24 19:31 levofloxacin [From Levaquin] Allergy Nightmare Verified 05/25/24 19:31 nitrofurantoin Allergy Itching Verified 05/25/24 19:31 [From Macrodantin] Assessment & Plan Assessment & Plan (1) MDD (major depressive disorder), recurrent episode, moderate: Status: Acute Code(s): F33.1 - Major depressive disorder, recurrent, moderate (2) PTSD (post-traumatic stress disorder): Status: Acute Code(s): F43.10 - Post-traumatic stress disorder, unspecified (3) Osteogenesis imperfecta: Status: Acute Code(s): Q78.0 - Osteogenesis imperfecta (4) Jennifer-Danlos disease: Status: Acute Code(s): Q79.60 - Jennifer-Danlos syndrome, unspecified (5) Chronic pain syndrome: Status: Acute Code(s): G89.4 - Chronic pain syndrome (6) Indwelling Van catheter present: Status: Acute Code(s): Z97.8 - Presence of other specified devices (7) Urinary retention: Status: Acute Code(s): R33.9 - Retention of urine, unspecified (8) Voiding dysfunction: Status: Acute Code(s): N39.8 - Other specified disorders of urinary system Plan HPI: Patient is a 39-year-old female with history of Jennifer Danlos syndrome, osteogenesis imperfecta, myofascial pain syndrome, migraines, juvenile osteoporosis, asthma, and mood disorder with history of rectocele, vaginal mesh surgery, urinary retention requiring Van catheterization, which was recently restarted. Patient?presented?to?[facility]?on?924?following?intentional?overdose?on?muscle?relaxers.??Patient?however?was?immediately?transferred?to?medical?floor?for?urinary?retention;?she?stabilized?there?and?was?discharged.?? She?presents?again?for?overdose On?gabapentin?and?trazodone,?Which?she?asserts?was?not?intentional (though later admits it was),?saying?she?just?wanted?to?sleep?and?get?relief?from?chronic?pain However?she?agrees?it?was?impulsive?and?unsafe.??Patient?currently?denies?any?SI.??She?reports?however?that?life?has?been?very?difficultff?pain?medications,?having?been?prescribed?opioids?consistently?for?the?past?24?years,? as?well?as?Ativan.??Patient?agrees?she?needs Help?stabilizing?and?coping. Relevant Medical/psych History: Patient was on opiates scheduled for 24 years to manage chronic medical comorbidities, resulting in hx of multiple fractures/falls and subsequent chronic pain. Pt denies any hx of substance abuse, including cannabis. She did screen positive for Fentanyl at first admission in October 2024 but is adamant she's never used it in her life and no quantitative labs done (leaving Fentanyl use inconclusive). Patients long-time physician of [address] Brigido Dietrich retired and new PCP tapered her off and discontinued all opioid pain management (also tapered and dc'd ativan). Patient reports she has been in constant pain and discomfort since then and has felt very frustrated and challenged to enjoy life, sometimes challenging her desire to live. Discussed?case?with?MAGDA Dunaway from pain management clinic: pt seen on 05/24. EXCAVATOR OPERATOR Gume agrees that patients medical comorbidities and subsequent chronic pain syndrome are commonly treated with opioid pain management. She recommends either Butrans patch or preferably Belbucha films (a form of Buprenorphin and titrating it to 150mg BID). Pt is also appropriate to get other nerve blocking treatments at pain clinic who will f/u with pt. Bag Filler spoke with patient's PCP Dr. Rubio at [facility] Dr. Rubio reports concurs that patient has Osteogenesis imprefecta, Ehlos Danlos Pt was on opioids for 24 years with prior PCP. With [facility] she was on Oxycodine 30mg QID and Oxycontin 30mg daily. In Sep 2023 pt was admitted to [facility] for concern for overdose. Additionally, there were other concerns including that [facility] notes referenced that patient reported being on a Fentanyl patch, which this provider had never prescribed. Additionally, there was hx of patient needing refills early and a report that her mother had used some of her medications. Also patient had significant weight loss which provider was concerned might have contributed to possible accidental overdose. Because of these concerns provider, clinic repeatedly called patient to come in and discuss pain management and reportedly reached out to her from October until January however patient did not respond or come in for appointments, having missed several. Provider reports that because of lack of communication and ongoing concern that was never addressed, Provider felt it was necessary to taper patient off pain medication which was started in January; patient was also tapered off Ativan. Provider agrees that patient does have significant medical history that is commonly treated with chronic pain medication. Bag Filler discussed options with them and Dr. Rubio agrees that starting patient on a buprenorphine product is an acceptable alternative to oxycodone. Vraylar since depressed and hx of manic-esque IMPRESSION: Patient's?depression?and?SI?seem?to?have significant?situational component?as?she?is?No?longer?receiving?pain?management?for?severe,?chronic?pain. Patient?has?no?known?history?of?substance?abuse.??Although?she?did?screen?positive?for?fentanyl (on?10/27/2023 and?05/18/2024), No?quantitative?analysis?was?done. ?This?mean that?fentanyl?screen?could?very?well?be?a?false-positive?result (which is not uncommon). Medical?decision?should?not?be?based?on?only?a?positive?screen?for?fentanyl. Patient does struggle with SI and with her chronic?pain?And?poor?support?will?likely?continue?to?produce?mood?instability.??Treatment?plan?will?include?production underwriter/team?discussion?with Outpatient?PCP?regarding?plan?for?treatment. Hospital course: 06/05: Continue current regimen and plans 06/06. Continue current plans and regimen. Loperamide was put on hold. Started on simethicone by hospitalist. No indications of GI bleeding currently. -seen by GI: C/o constipation and worsening abdominal distension. Will order CT A/P with IV/PO contrast to assess for SBO/ileus though passage of gas and small amount of stool argues against complete obstruction; however she is at risk given multiple surgeries. If no obstruction will order bowel regimen to address constipation. Continue Van, Urology following. 06/07 Patient reports that she is depressed. She apologized for not being more forthcoming earlier on in says it took her awhile to admitted to herself but she does not want to be in this world anymore... And has a plan to jump in front of a train on discharge. Patient also reports that overdose on trazodone/gabapentin was actually an intentional suicide attempt. She reports a constant deluge of self-deprecating thoughts which include that she is worthless, discussed in, and fat. Bag Filler reviewed patient's history of anorexia and patient reports she sees herself as fat every day and eats very little (history of anorexia since 14 years old; was at brought up oral for a month with a feeding tube; she understands that this is a significant cause of her chronic constipation). Despite her SI, patient does want help getting better agrees to try antidepressant medication; production underwriter reviewed options and risks/side effects and patient with Vraylar. Also discussed pain medication management and patient agrees with Belbuca which she has heard of; she also agrees to non opioid pain management and will follow-up with pain management Clinic here at [facility]. Discussed relationship with her mother and she does not SA think her mother struggles with drug addiction but has caught her trying to get into her room, which patient keeps locked, looking for her medications which she has taken in the past. Patient said she reported this to her PCP. Patient does have history of being prescribed fentanyl patch however she did not like them and weaned herself off of them; set had some left over 06/08 Patient remains depressed with suicidal thinking however is trying to be hopeful and has tolerated Vraylar and says will continue, with increased dose; grateful for help getting Belbuca through prior authorization. -Discussed case with urology who recommends remaining with indwelling Van since failed voiding attempt on 06/03; will continue to follow -pt reported and nurse corroborated that Van bag containing urine was blood-tinged; discussed with Urologist, deemed likely micro trauma, and to keep van in place; recently failed voiding trial on 06/03 06/09 Patient reports she remains depressed, with SI. Patient also reports she had a very difficult time sleeping last night feeling very upset following a conversation she had on the phone with her mother. Patient expressed to her mother she is feeling hurt that her mom has not visited or called throughout her admission, even on patient's birthday; she says her mom was on apologetic. Patient also challenged her mom regarding her mom's past comment that patient could burn in hell with her father (who 2 years ago); mom remained unapologetic. Patient tells production underwriter she has no idea why her mom said this other than that her mom is crazy... Subsequently patient reports that throughout the night, she had racing thoughts and no sleep. Discussed medications and patient and pt is eager to try [employer] for pain management, available today dc'd gabapentin; pt said has never helped for pain or anxiety Adding clonidine at bedtime to help w/ sleep, anxiety PLAN: CV? One-to-one?since?indwelling?Van Increased to Vraylar 3 mg daily (Vraylar chosen since patient has depression but also history of manic type behaviors, possibly manic episode with some delusions and AH) STARTing Belbuca 75mcg films BID for pain management (history of fentanyl patch, morphine, oxycodone, OxyContin) Patient educated on: diagnosis, medication risk/benefits, therapeutic strategies and medical condition Informed Consent: understands Reason for continued inpatient stay Substantial Risk for: harm to self, rapid decompensation and med/psych decompensation Time Spent With Patient Time: Total time managing care of this patient today ____ minutes.
[2024-06-09] MEDS: BUPRENORPHINE 75 MCG 1 EACH PO ×2 (10:55→21:56)
[2024-06-09 20:00] VITALS: BP 121/79; PULSE 82; TEMP 37.3; O2SAT 97
[2024-06-09 20:25] VITALS: TEMP 36.7
[2024-06-09] MEDS: Tamsulosin HCL 0.4 MG CAPSULE PO (21:43)
[2024-06-09] MEDS: bisacodyL 5 MG TABLET.DR 10 MG PO (21:44)
[2024-06-09 21:45] VITALS: BP 121/79
[2024-06-09] MEDS: cloNIDine HCL 0.1 MG TABLET PO (21:45)
[2024-06-09] MEDS: Sennosides/Docusate Sodium TABLET 2 TAB PO (21:46)
[2024-06-10] MEDS: Cariprazine HCl 3 MG CAPSULE PO (08:34)
[2024-06-10] MEDS: Fluconazole 100 MG TABLET 200 MG PO (08:34)
[2024-06-10] MEDS: Ascorbic Acid 500 MG TABLET 1000 MG PO (08:35)
[2024-06-10 09:37] VITALS: BP 105/71; PULSE 89; TEMP 36.8; O2SAT 99
--- NOTE | 2024-06-10 10:38 | P.PNPSI_ITS ---
Subjective Subjective Date of Service: 06/10/24 Reason For Visit: Sa Interim History: Met with patient; discussed with team Patient remains very depressed and continues to have suicidal thoughts, saying she wants to end her life when she leaves the hospital. Patient Says I do not understand myself.. And laments she is gone most of her life without any suicidal ideation and only started this past September. Patient shared about some other reasons that it might be occurring and agrees that she still mourning the loss of her father who was her confidante; dealing with chronic pain having been off pain medications for several months and the ongoing struggles in her relationship with her mother and brother whom she feels are bullying; trying to come to terms with the fact that her mother simply isn't going to be the kind of mother she wishes she had. Patient agrees to medication management. Diagnostics Vital Signs (24Hr): Vital Signs - 24 hr 06/09/24 20:00 06/09/24 20:25 06/09/24 21:45 Temperature 99.1 F 98.1 F Pulse Rate 82 Blood Pressure 121/79 121/79 Pulse Oximetry 97 Oxygen Delivery Method Room Air 06/10/24 09:37 Temperature 98.2 F Pulse Rate 89 Blood Pressure 105/71 Pulse Oximetry 99 Oxygen Delivery Method Room Air BMI result Body Mass Index 13.1 Labs 06/06/24 08:20 06/06/24 08:20 Imaging Radiology Impressions: ITS Impressions KUB X-Ray 06/03/24 19:55 IMPRESSION: Increased amount of stool in the colon suggesting constipation. Please correlate with clinical presentation. Electronically signed by: Oneida Pham MD 06/04/2024 07:31 AM EDT Renal Ultrasound 06/04/24 14:49 IMPRESSION: No ultrasound evidence of renal obstruction or hydronephrosis. Limited visualization of the left kidney obscured by bowel gas, exam otherwise unremarkable. Electronically signed by: Oneida Pham MD 06/05/2024 12:56 PM EDT Abdomen/Pelvis CT 06/04/24 18:33 IMPRESSION: Severe constipation. Otherwise unremarkable CT abdomen and pelvis. Fleischner guidelines were followed. Electronically signed by: Deyvi Collins MD 06/04/2024 07:05 PM EDT Medications Medications Current Medications Acetaminophen (Acetaminophen 325 Mg Tablet) 650 mg PO Q6H PRN PRN Reason: Headache/Pain Mild Scale (1-3) Last Admin: 06/08/24 22:44 Dose: 650 mg Al Hydroxide/Mg Hydroxide (Magnesium Hydrox/Alum Hydrox 30 Ml Oral.Susp) 30 ml PO Q6H PRN PRN Reason: Heartburn/Nausea Albuterol Sulfate (Albuterol Sulfate 90 Mcg 8 Gm Inhaler) 2 puff INHALE QID PRN PRN Reason: Shortness Of Breath Ascorbic Acid (Ascorbic Acid 500 Mg Tablet) 1,000 mg PO DAILY [facility] Last Admin: 06/10/24 08:35 Dose: 1,000 mg Bisacodyl (Bisacodyl 5 Mg Tablet.Dr) 10 mg PO BEDTIME [facility] Last Admin: 06/09/24 21:44 Dose: 10 mg Cariprazine (Cariprazine Hcl 3 Mg Capsule) 3 mg PO DAILY [facility] Last Admin: 06/10/24 08:34 Dose: 3 mg Clonidine HCl (Clonidine Hcl 0.1 Mg Tablet) 0.1 mg PO BEDTIME [facility]; Protocol Last Admin: 06/09/24 21:45 Dose: 0.1 mg Clonidine HCl (Clonidine Hcl 0.1 Mg Tablet) 0.1 mg PO Q4H PRN; Protocol PRN Reason: anxiety Fluconazole (Fluconazole 100 Mg Tablet) 200 mg PO DAILY [facility] Stop: 06/15/24 09:59 Last Admin: 06/10/24 08:34 Dose: 200 mg Hydroxyzine HCl (Hydroxyzine Hcl 25 Mg Tablet) 25 mg PO Q6H PRN PRN Reason: Anxiety Last Admin: 06/09/24 04:38 Dose: 25 mg Lactulose (Lactulose 20 Gm/30 Ml Solution) 40 gm PO DAILY [facility] Last Admin: 06/10/24 08:39 Dose: Not Given Loperamide HCl (Loperamide Hcl 2 Mg Capsule) 2 mg PO Q4H PRN PRN Reason: Diarrhea Magnesium Hydroxide (Milk Of Magnesia 30 Ml Oral.Susp) 30 ml PO DAILY PRN PRN Reason: Constipation Last Admin: 06/04/24 05:22 Dose: 30 ml Patient Own (Belbuca (75mcg Buccal Films)) 1 each PO BID [facility] Last Admin: 06/10/24 09:34 Dose: Not Given Ondansetron HCl (Ondansetron Odt 4 Mg Tab.Rapdis) 4 mg TRANSLINGU Q6H PRN PRN Reason: Nausea and Vomiting Last Admin: 06/06/24 17:34 Dose: 4 mg Polyethylene Glycol (Polyethylene Glycol 3350 17 Gm Powd.Pack) 17 gm PO BID [facility] Last Admin: 06/10/24 08:39 Dose: Not Given Senna/Docusate Sodium (Sennosides/Docusate Sodium Tablet) 2 tab PO BID [facility] Last Admin: 06/10/24 08:37 Dose: Not Given Simethicone (Simethicone 80 Mg Tab.Chew) 160 mg PO BID PRN PRN Reason: bloating/gas Last Admin: 06/07/24 11:06 Dose: 160 mg Tamsulosin HCl (Tamsulosin Hcl 0.4 Mg Capsule) 0.4 mg PO BEDTIME [facility] Last Admin: 06/09/24 21:43 Dose: 0.4 mg Allergies Allergies Allergy/AdvReac Type Severity Reaction Status Date / Time azithromycin Allergy Itching Verified 05/25/24 19:31 levofloxacin [From Levaquin] Allergy Nightmare Verified 05/25/24 19:31 nitrofurantoin Allergy Itching Verified 05/25/24 19:31 [From Macrodantin] Assessment & Plan Assessment & Plan (1) MDD (major depressive disorder), recurrent episode, moderate: Status: Acute Code(s): F33.1 - Major depressive disorder, recurrent, moderate (2) PTSD (post-traumatic stress disorder): Status: Acute Code(s): F43.10 - Post-traumatic stress disorder, unspecified (3) Osteogenesis imperfecta: Status: Acute Code(s): Q78.0 - Osteogenesis imperfecta (4) Jennifer-Danlos disease: Status: Acute Code(s): Q79.60 - Jennifer-Danlos syndrome, unspecified (5) Chronic pain syndrome: Status: Acute Code(s): G89.4 - Chronic pain syndrome (6) Indwelling Van catheter present: Status: Acute Code(s): Z97.8 - Presence of other specified devices (7) Urinary retention: Status: Acute Code(s): R33.9 - Retention of urine, unspecified (8) Voiding dysfunction: Status: Acute Code(s): N39.8 - Other specified disorders of urinary system Plan HPI: Patient is a 39-year-old female with history of Jennifer Danlos syndrome, osteogenesis imperfecta, myofascial pain syndrome, migraines, juvenile osteoporosis, asthma, and mood disorder with history of rectocele, vaginal mesh surgery, urinary retention requiring Van catheterization, which was recently restarted. P atient?presented?to?[facility]?on?924?following?intentional?overdose?on?muscle?rel axers.??Patient?lujan mary?was?immediately?transferred?to?medical?floor?for?urinary?retention;?she?stab ilized?there?and?was?discharged.?? She?presents?again?for?overdose On?gabapentin?and?trazodone,?Which?she?asserts?was?not?intentional (though later admits it was),?saying?she?just?wanted?to?sleep?and?get?relief?from?chronic?pain H owever?she?agrees?it?was?impulsive?and?unsafe.??Patient?currently?denies?any?SI. ??She?reports?howeve r?that?life?has?been?very?difficultff?pain?medications,?having?been?prescribed?o pioids?consistently?for?the?past?24?years,? as?well?as?Ativan.??Patient?agrees?she?needs Help?stabilizing?and?coping. Relevant Medical/psych History: Patient was on opiates scheduled for 24 years to manage chronic medical comorbidities, resulting in hx of multiple fractures/falls and subsequent chronic pain. Pt denies any hx of substance abuse, including cannabis. She did screen positive for Fentanyl at first admission in October 2024 but is adamant she's never used it in her life and no quantitative labs done (leaving Fentanyl use inconclusive). Patients long-time physician of [address] Brigido Dietrich retired and new PCP tapered her off and discontinued all opioid pain management (also tapered and dc'd ativan). Patient reports she has been in constant pain and discomfort since then and has felt very frustrated and challenged to enjoy life, sometimes challenging her desire to live. Discussed?case?with?MAGDA Dunaway from pain management clinic: pt seen on 05/24. CEMENT FITTINGS MAKER Gume agrees that patients medical comorbidities and subsequent chronic pain syndrome are commonly treated with opioid pain management. She recommends either Butrans patch or preferably Belbucha films (a form of Buprenorphin and titrating it to 150mg BID). Pt is also appropriate to get other nerve blocking treatments at pain clinic who will f/u with pt. News Camera Person spoke with patient's PCP Dr. Rubio at [facility] Dr. Rubio reports concurs that patient has Osteogenesis imprefecta, Ehlos Danlos Pt was on opioids for 24 years with prior PCP. With [facility] she was on Oxycodine 30mg QID and Oxycontin 30mg daily. In Sep 2023 pt was admitted to [facility] for concern for overdose. Additionally, there were other concerns including that [facility] notes referenced that patient reported being on a Fentanyl patch, which this provider had never prescribed. Additionally, there was hx of patient needing refills early and a report that her mother had used some of her medications. Also patient had significant weight loss which provider was concerned might have contributed to possible accidental overdose. Because of these concerns provider, clinic repeatedly called patient to come in and discuss pain management and reportedly reached out to her from October until January however patient did not respond or come in for appointments, having missed several. Provider reports that because of lack of communication and ongoing concern that was never addressed, Provider felt it was necessary to taper patient off pain medication which was started in January; patient was also tapered off Ativan. Provider agrees that patient does have significant medical history that is commonly treated with chronic pain medication. News Camera Person discussed options with them and Dr. Rubio agrees that starting patient on a buprenorphine product is an acceptable alternative to oxycodone. Vraylar since depressed and hx of manic-esque IMPRESSION: Patient's?depression?and?SI?seem?to?have significant?situational component?as?she?is?No?longer?receiving?pain?management?for?severe,?chronic?pain . P atient?has?no?known?history?of?substance?abuse.??Although?she?did?screen?positiv e?for?fentanyl (on?10/27/2023 and?05/18/2024), No?quantitative?analysis?was?done. ?This?mean that?fentanyl?screen?could?very?well?be?a?false-positive?result (which is not uncommon). Medical?decision?should?not?be?based?on?only?a?positive?screen?for?fentanyl. Patient does struggle with SI and with her chronic?pain?And?poor?support?will?likely?continue?to?produce?mood?instability.? ?Treatment?plan?will?include?commercial real estate underwriter/team?discussion?with Outpatient?PCP?regarding?plan?for?treatment. Hospital course: 06/05: Continue current regimen and plans 06/06. Continue current plans and regimen. Loperamide was put on hold. Started on simethicone by hospitalist. No indications of GI bleeding currently. -seen by GI: C/o constipation and worsening abdominal distension. Will order CT A/P with IV/PO contrast to assess for SBO/ileus though passage of gas and small amount of stool argues against complete obstruction; however she is at risk given multiple surgeries. If no obstruction will order bowel regimen to address constipation. Continue Van, Urology following. 06/07 Patient reports that she is depressed. She apologized for not being more forthcoming earlier on in says it took her awhile to admitted to herself but she does not want to be in this world anymore... And has a plan to jump in front of a train on discharge. Patient also reports that overdose on trazodone/gabapentin was actually an intentional suicide attempt. She reports a constant deluge of self-deprecating thoughts which include that she is worthless, discussed in, and fat. News Camera Person reviewed patient's history of anorexia and patient reports she sees herself as fat every day and eats very little (history of anorexia since 14 years old; was at brought up oral for a month with a feeding tube; she understands that this is a significant cause of her chronic constipation). Despite her SI, patient does want help getting better agrees to try antidepressant medication; commercial real estate underwriter reviewed options and risks/side effects and patient with [facility]. Also discussed pain medication management and patient agrees with Belbuca which she has heard of; she also agrees to non opioid pain management and will follow-up with pain management Clinic here at [facility]. Discussed relationship with her mother and she does not SA think her mother struggles with drug addiction but has caught her trying to get into her room, which patient keeps locked, looking for her medications which she has taken in the past. Patient said she reported this to her PCP. Patient does have history of being prescribed fentanyl patch however she did not like them and weaned herself off of them; set had some left over 06/08 Patient remains depressed with suicidal thinking however is trying to be hopeful and has tolerated Vraylar and says will continue, with increased dose; grateful for help getting Belbuca through prior authorization. -Discussed case with urology who recommends remaining with indwelling Van since failed voiding attempt on 06/03; will continue to follow -pt reported and nurse corroborated that Van bag containing urine was blood- tinged; discussed with Urologist, deemed likely micro trauma, and to keep van in place; recently failed voiding trial on 06/03 06/09 Patient reports she remains depressed, with SI. Patient also reports she had a very difficult time sleeping last night feeling very upset following a conversation she had on the phone with her mother. Patient expressed to her mother she is feeling hurt that her mom has not visited or called throughout her admission, even on patient's birthday; she says her mom was on apologetic. Patient also challenged her mom regarding her mom's past comment that patient could burn in hell with her father (who 2 years ago); mom remained unapologetic. Patient tells commercial real estate underwriter she has no idea why her mom said this other than that her mom is crazy... Subsequently patient reports that throughout the night, she had racing thoughts and no sleep. Discussed medications and patient and pt is eager to try Belbuca Films for pain management, available today dc'd gabapentin; pt said has never helped for pain or anxiety Adding clonidine at bedtime to help w/ sleep, anxiety 06/10 patient reports that Belbuca is helping with pain Patient remains very depressed and continues to have suicidal thoughts, saying she wants to end her life when she leaves the hospital. Patient Says I do not understand myself.. And laments she is gone most of her life without any suicidal ideation and only started this past September. Patient shared about some other reasons that it might be occurring and agrees that she still mourning the loss of her father who was her confidante; dealing with chronic pain having been off pain medications for several months and the ongoing struggles in her relationship with her mother and brother whom she feels are bullying; trying to come to terms with the fact that her mother simply isn't going to be the kind of mother she wishes she had. Patient agrees to medication management. PLAN: CV? One-to-one?since?indwelling?Van Increased to Vraylar 3 mg daily (Vraylar chosen since patient has depression but also history of manic type behaviors, possibly manic episode with some delusions and AH) STARTing Belbuca 75mcg films BID for pain management (history of fentanyl patch, morphine, oxycodone, OxyContin) Patient educated on: diagnosis, medication risk/benefits, therapeutic strategies and medical condition Informed Consent: understands and further education needed Reason for continued inpatient stay Substantial Risk for: harm to self and inability to function Time Spent With Patient Time: Total time managing care of this patient today ____ minutes.
[2024-06-10] MEDS: BUPRENORPHINE 75 MCG 1 EACH PO ×2 (12:11→21:31)
[2024-06-10] MEDS: Acetaminophen 325 MG TABLET 650 MG PO (21:27)
--- NOTE | 2024-06-10 21:32 | PC.NURSE ---
belbuca-unable to scan. administered as ordered.
[2024-06-10 21:49] VITALS: BP 131/83; PULSE 80; RESP 16; TEMP 36.8; O2SAT 96
[2024-06-10] MEDS: Tamsulosin HCL 0.4 MG CAPSULE PO (21:52)
[2024-06-10] MEDS: QUEtiapine Fumarate 50 MG TABLET PO (21:52)
[2024-06-10] MEDS: cloNIDine HCL 0.1 MG TABLET PO (21:52)
[2024-06-11 08:00] VITALS: BP 107/63; PULSE 84; TEMP 36.7; O2SAT 98
--- NOTE | 2024-06-11 08:59 | P.PNPSI_ITS ---
Subjective Subjective Date of Service: 06/11/24 Reason For Visit: Sa Interim History: Pt reports Seroquel effective for sleep and Bellbuca effective for pain. Area on left wrist, forearm with ? cellulitis. Pt reports it is painful. Hospitalist consult requested. Pt states she feels more at peace without a sitter and believes this will help her recovery. She is thankful her team listened to this request. Medication Compliance: Yes Side effects from medications: No Attending Groups: Intermittent Review of Systems Acute medical concerns: No Review of Systems Review of Systems L wrist, forearm with area of ?beginning cellulitis Mental Status Exam Mental Status Exam Patient Appearance: Appropriate Patient Orientation: Person, Place, Time and Situation Level of Consciousness: Alert Patient Behavior: Talkative and Good Eye Contact Mood Description: Depressed and Apprehensive Affect Description: Apprehensive Ability to Follow Directions: Good Speech Pattern: Spontaneous Speech Judgement: Fair Diagnostics Vital Signs (24Hr): Vital Signs - 24 hr 06/10/24 09:37 06/10/24 21:49 06/11/24 08:00 Temperature 98.2 F 98.2 F 98.0 F Pulse Rate 89 80 84 Respiratory Rate 16 Blood Pressure 105/71 131/83 107/63 Pulse Oximetry 99 96 98 Oxygen Delivery Method Room Air Room Air Room Air BMI result Body Mass Index 13.1 Labs 06/06/24 08:20 06/06/24 08:20 Imaging Radiology Impressions: ITS Impressions KUB X-Ray 06/03/24 19:55 IMPRESSION: Increased amount of stool in the colon suggesting constipation. Please correlate with clinical presentation. Electronically signed by: Oneida Pham MD 06/04/2024 07:31 AM EDT Renal Ultrasound 06/04/24 14:49 IMPRESSION: No ultrasound evidence of renal obstruction or hydronephrosis. Limited visualization of the left kidney obscured by bowel gas, exam otherwise unremarkable. Electronically signed by: Oneida Pham MD 06/05/2024 12:56 PM EDT Abdomen/Pelvis CT 06/04/24 18:33 IMPRESSION: Severe constipation. Otherwise unremarkable CT abdomen and pelvis. Fleischner guidelines were followed. Electronically signed by: Deyvi Collins MD 06/04/2024 07:05 PM EDT Medications Medications Current Medications Acetaminophen (Acetaminophen 325 Mg Tablet) 650 mg PO Q6H PRN PRN Reason: Headache/Pain Mild Scale (1-3) Last Admin: 06/10/24 21:27 Dose: 650 mg Al Hydroxide/Mg Hydroxide (Magnesium Hydrox/Alum Hydrox 30 Ml Oral.Susp) 30 ml PO Q6H PRN PRN Reason: Heartburn/Nausea Albuterol Sulfate (Albuterol Sulfate 90 Mcg 8 Gm Inhaler) 2 puff INHALE QID PRN PRN Reason: Shortness Of Breath Ascorbic Acid (Ascorbic Acid 500 Mg Tablet) 1,000 mg PO DAILY [facility] Last Admin: 06/10/24 08:35 Dose: 1,000 mg Bisacodyl (Bisacodyl 5 Mg Tablet.Dr) 10 mg PO BEDTIME [facility] Last Admin: 06/10/24 20:49 Dose: Not Given Cariprazine (Cariprazine Hcl 3 Mg Capsule) 3 mg PO DAILY [facility] Last Admin: 06/10/24 08:34 Dose: 3 mg Clonidine HCl (Clonidine Hcl 0.1 Mg Tablet) 0.1 mg PO BEDTIME [facility]; Protocol Last Admin: 06/10/24 21:52 Dose: 0.1 mg Clonidine HCl (Clonidine Hcl 0.1 Mg Tablet) 0.1 mg PO Q4H PRN; Protocol PRN Reason: anxiety Fluconazole (Fluconazole 100 Mg Tablet) 200 mg PO DAILY [facility] Stop: 06/15/24 09:59 Last Admin: 06/10/24 08:34 Dose: 200 mg Hydroxyzine HCl (Hydroxyzine Hcl 25 Mg Tablet) 25 mg PO Q6H PRN PRN Reason: Anxiety Last Admin: 06/09/24 04:38 Dose: 25 mg Lactulose (Lactulose 20 Gm/30 Ml Solution) 40 gm PO DAILY [facility] Last Admin: 06/10/24 08:39 Dose: Not Given Loperamide HCl (Loperamide Hcl 2 Mg Capsule) 2 mg PO Q4H PRN PRN Reason: Diarrhea Magnesium Hydroxide (Milk Of Magnesia 30 Ml Oral.Susp) 30 ml PO DAILY PRN PRN Reason: Constipation Last Admin: 06/04/24 05:22 Dose: 30 ml Patient Own (Belbuca (75mcg Buccal Films)) 1 each PO BID [facility] Last Admin: 06/10/24 21:31 Dose: 1 each Ondansetron HCl (Ondansetron Odt 4 Mg Tab.Rapdis) 4 mg TRANSLINGU Q6H PRN PRN Reason: Nausea and Vomiting Last Admin: 06/06/24 17:34 Dose: 4 mg Polyethylene Glycol (Polyethylene Glycol 3350 17 Gm Powd.Pack) 17 gm PO BID [facility] Last Admin: 06/10/24 20:50 Dose: Not Given Quetiapine Fumarate (Quetiapine Fumarate 50 Mg Tablet) 50 mg PO BEDTIME [facility] Last Admin: 06/10/24 21:52 Dose: 50 mg Senna/Docusate Sodium (Sennosides/Docusate Sodium Tablet) 2 tab PO BID [facility] Last Admin: 06/10/24 20:51 Dose: Not Given Simethicone (Simethicone 80 Mg Tab.Chew) 160 mg PO BID PRN PRN Reason: bloating/gas Last Admin: 06/07/24 11:06 Dose: 160 mg Tamsulosin HCl (Tamsulosin Hcl 0.4 Mg Capsule) 0.4 mg PO BEDTIME [facility] Last Admin: 06/10/24 21:52 Dose: 0.4 mg Allergies Allergies Allergy/AdvReac Type Severity Reaction Status Date / Time azithromycin Allergy Itching Verified 05/25/24 19:31 levofloxacin [From Levaquin] Allergy Nightmare Verified 05/25/24 19:31 nitrofurantoin Allergy Itching Verified 05/25/24 19:31 [From Macrodantin] Assessment & Plan Assessment & Plan (1) MDD (major depressive disorder), recurrent episode, moderate: Status: Acute Code(s): F33.1 - Major depressive disorder, recurrent, moderate (2) PTSD (post-traumatic stress disorder): Status: Acute Code(s): F43.10 - Post-traumatic stress disorder, unspecified (3) Osteogenesis imperfecta: Status: Acute Code(s): Q78.0 - Osteogenesis imperfecta (4) Jennifer-Danlos disease: Status: Acute Code(s): Q79.60 - Jennifer-Danlos syndrome, unspecified (5) Chronic pain syndrome: Status: Acute Code(s): G89.4 - Chronic pain syndrome (6) Indwelling Van catheter present: Status: Acute Code(s): Z97.8 - Presence of other specified devices (7) Urinary retention: Status: Acute Code(s): R33.9 - Retention of urine, unspecified (8) Voiding dysfunction: Status: Acute Code(s): N39.8 - Other specified disorders of urinary system Plan HPI: Patient is a 39-year-old female with history of Jennifer Danlos syndrome, osteogenesis imperfecta, myofascial pain syndrome, migraines, juvenile osteoporosis, asthma, and mood disorder with history of rectocele, vaginal mesh surgery, urinary retention requiring Van catheterization, which was recently restarted. P atient?presented?to?[facility]?on?924?following?intentional?overdose?on?muscle?rel axers.??Patient?lujan mary?was?immediately?transferred?to?medical?floor?for?urinary?retention;?she?stab ilized?there?and?was?discharged.?? She?presents?again?for?overdose On?gabapentin?and?trazodone,?Which?she?asserts?was?not?intentional (though later admits it was),?saying?she?just?wanted?to?sleep?and?get?relief?from?chronic?pain H owever?she?agrees?it?was?impulsive?and?unsafe.??Patient?currently?denies?any?SI. ??She?reports?howeve r?that?life?has?been?very?difficultff?pain?medications,?having?been?prescribed?o pioids?consistently?for?the?past?24?years,? as?well?as?Ativan.??Patient?agrees?she?needs Help?stabilizing?and?coping. Relevant Medical/psych History: Patient was on opiates scheduled for 24 years to manage chronic medical comorbidities, resulting in hx of multiple fractures/falls and subsequent chronic pain. Pt denies any hx of substance abuse, including cannabis. She did screen positive for Fentanyl at first admission in October 2024 but is adamant she's never used it in her life and no quantitative labs done (leaving Fentanyl use inconclusive). Patients long-time physician of [address] Brigido Dietrich retired and new PCP tapered her off and discontinued all opioid pain management (also tapered and dc'd ativan). Patient reports she has been in constant pain and discomfort since then and has felt very frustrated and challenged to enjoy life, sometimes challenging her desire to live. Discussed?case?with?LEAD SYSTEMS ANALYST Vianey Dunaway from pain management clinic: pt seen on 05/24. LEAD SYSTEMS ANALYST Gume agrees that patients medical comorbidities and subsequent chronic pain syndrome are commonly treated with opioid pain management. She recommends either Butrans patch or preferably Belbucha films (a form of Buprenorphin and titrating it to 150mg BID). Pt is also appropriate to get other nerve blocking treatments at pain clinic who will f/u with pt. Manager Room spoke with patient's PCP Dr. Rubio at [facility] Dr. Rubio reports concurs that patient has Osteogenesis imprefecta, Ehlos Danlos Pt was on opioids for 24 years with prior PCP. With [facility] she was on Oxycodine 30mg QID and Oxycontin 30mg daily. In Sep 2023 pt was admitted to [facility] for concern for overdose. Additionally, there were other concerns including that [facility] notes referenced that patient reported being on a Fentanyl patch, which this provider had never prescribed. Additionally, there was hx of patient needing refills early and a report that her mother had used some of her medications. Also patient had significant weight loss which provider was concerned might have contributed to possible accidental overdose. Because of these concerns provider, clinic repeatedly called patient to come in and discuss pain management and reportedly reached out to her from October until January however patient did not respond or come in for appointments, having missed several. Provider reports that because of lack of communication and ongoing concern that was never addressed, Provider felt it was necessary to taper patient off pain medication which was started in January; patient was also tapered off Ativan. Provider agrees that patient does have significant medical history that is commonly treated with chronic pain medication. Manager Room discussed options with them and Dr. Rubio agrees that starting patient on a buprenorphine product is an acceptable alternative to oxycodone. Vraylar since depressed and hx of manic-esque IMPRESSION: Patient's?depression?and?SI?seem?to?have significant?situational component?as?she?is?No?longer?receiving?pain?management?for?severe,?chronic?pain . P atient?has?no?known?history?of?substance?abuse.??Although?she?did?screen?positiv e?for?fentanyl (on?10/27/2023 and?05/18/2024), No?quantitative?analysis?was?done. ?This?mean that?fentanyl?screen?could?very?well?be?a?false-positive?result (which is not uncommon). Medical?decision?should?not?be?based?on?only?a?positive?screen?for?fentanyl. Patient does struggle with SI and with her chronic?pain?And?poor?support?will?likely?continue?to?produce?mood?instability.? ?Treatment?plan?will?include?residential mortgage underwriter/team?discussion?with Outpatient?PCP?regarding?plan?for?treatment. Hospital course: 06/05: Continue current regimen and plans 06/06. Continue current plans and regimen. Loperamide was put on hold. Started on simethicone by hospitalist. No indications of GI bleeding currently. -seen by GI: C/o constipation and worsening abdominal distension. Will order CT A/P with IV/PO contrast to assess for SBO/ileus though passage of gas and small amount of stool argues against complete obstruction; however she is at risk given multiple surgeries. If no obstruction will order bowel regimen to address constipation. Continue Van, Urology following. 06/07 Patient reports that she is depressed. She apologized for not being more forthcoming earlier on in says it took her awhile to admitted to herself but she does not want to be in this world anymore... And has a plan to jump in front of a train on discharge. Patient also reports that overdose on trazodone/gabapentin was actually an intentional suicide attempt. She reports a constant deluge of self-deprecating thoughts which include that she is worthless, discussed in, and fat. Manager Room reviewed patient's history of anorexia and patient reports she sees herself as fat every day and eats very little (history of anorexia since 14 years old; was at brought up oral for a month with a feeding tube; she understands that this is a significant cause of her chronic constipation). Despite her SI, patient does want help getting better agrees to try antidepressant medication; residential mortgage underwriter reviewed options and risks/side effects and patient with [facility]. Also discussed pain medication management and patient agrees with Belbuca which she has heard of; she also agrees to non opioid pain management and will follow-up with pain management Clinic here at [facility]. Discussed relationship with her mother and she does not SA think her mother struggles with drug addiction but has caught her trying to get into her room, which patient keeps locked, looking for her medications which she has taken in the past. Patient said she reported this to her PCP. Patient does have history of being prescribed fentanyl patch however she did not like them and weaned herself off of them; set had some left over 06/08 Patient remains depressed with suicidal thinking however is trying to be hopeful and has tolerated Vraylar and says will continue, with increased dose; grateful for help getting Belbuca through prior authorization. -Discussed case with urology who recommends remaining with indwelling Van since failed voiding attempt on 06/03; will continue to follow -pt reported and nurse corroborated that Van bag containing urine was blood- tinged; discussed with Urologist, deemed likely micro trauma, and to keep van in place; recently failed voiding trial on 06/03 06/09 Patient reports she remains depressed, with SI. Patient also reports she had a very difficult time sleeping last night feeling very upset following a conversation she had on the phone with her mother. Patient expressed to her mother she is feeling hurt that her mom has not visited or called throughout her admission, even on patient's birthday; she says her mom was on apologetic. Patient also challenged her mom regarding her mom's past comment that patient could burn in hell with her father (who 2 years ago); mom remained unapologetic. Patient tells residential mortgage underwriter she has no idea why her mom said this other than that her mom is crazy... Subsequently patient reports that throughout the night, she had racing thoughts and no sleep. 06/11: Continue tx plan Discussed medications and patient and pt is eager to try Belbuca Films for pain management, available today dc'd gabapentin; pt said has never helped for pain or anxiety Adding clonidine at bedtime to help w/ sleep, anxiety PLAN: CV? One-to-one?since?indwelling?Van Increased to Vraylar 3 mg daily (Vraylar chosen since patient has depression but also history of manic type behaviors, possibly manic episode with some delusions and AH) STARTing Belbuca 75mcg films BID for pain management (history of fentanyl patch, morphine, oxycodone, OxyContin) Reason for continued inpatient stay Substantial Risk for: rapid decompensation Time Spent With Patient Time: Total time managing care of this patient today ____ minutes.
[2024-06-11] MEDS: Acetaminophen 325 MG TABLET 650 MG PO (09:59)
[2024-06-11] MEDS: Ascorbic Acid 500 MG TABLET 1000 MG PO (09:59)
[2024-06-11] MEDS: Fluconazole 100 MG TABLET 200 MG PO (09:59)
[2024-06-11] MEDS: Sennosides/Docusate Sodium TABLET 2 TAB PO (10:00)
[2024-06-11] MEDS: Cariprazine HCl 3 MG CAPSULE PO (10:00)
[2024-06-11] MEDS: BUPRENORPHINE 75 MCG 1 EACH PO ×2 (10:06→21:29)
[2024-06-11 15:41] VITALS: BP 103/75
[2024-06-11] MEDS: cloNIDine HCL 0.1 MG TABLET PO ×2 (15:41→21:29)
[2024-06-11] MEDS: hydrOXYzine HCL 25 MG TABLET PO (16:16)
[2024-06-11 21:05] VITALS: BP 127/62; PULSE 71; RESP 16; TEMP 36.6; O2SAT 100
--- NOTE | 2024-06-11 21:17 | PC.NURSE ---
hospitalist notified of consult ordered for r/o cellulitis L forearm. area red over funmilayo prominence. not warm. afebrile.
[2024-06-11] MEDS: Tamsulosin HCL 0.4 MG CAPSULE PO (21:29)
[2024-06-11] MEDS: QUEtiapine Fumarate 50 MG TABLET PO (21:30)
--- NOTE | 2024-06-12 09:07 | P.PNPSI_ITS ---
Subjective Subjective Date of Service: 06/12/24 Reason For Visit: Sa Subjective Notes: Conditional Voluntary Interim History: A difficult day for Joselin. She reports no change in mood, increase in anxiety and difficulty with meal times. Several physical issues. Seen by hospitalist team today x 3 for question of wrist, forearm cellulitis- ?if she is scratching and irritating this area, L leg/ankle edema, R knee pain, racing heart with L lower jaw pain and tightness with flutter and racing heart. EKG with fusion complex, troponins negative. Medication Compliance: Yes Side effects from medications: No Attending Groups: Intermittent Review of Systems Acute medical concerns: No Medical Review of Systems: unchanged Review of Systems Review of Systems as noted in HPI Mental Status Exam Mental Status Exam Patient Appearance: Appropriate Patient Orientation: Person, Place, Time and Situation Level of Consciousness: Alert Patient Behavior: Talkative and Good Eye Contact Mood Description: Depressed and Apprehensive Affect Description: Apprehensive Ability to Follow Directions: Good Speech Pattern: Spontaneous Speech Judgement: Fair Diagnostics Vital Signs (24Hr): Vital Signs - 24 hr 06/11/24 15:41 06/11/24 21:05 Temperature 97.9 F Pulse Rate 71 Respiratory Rate 16 Blood Pressure 103/75 127/62 Pulse Oximetry 100 Oxygen Delivery Method Room Air BMI result Body Mass Index 16.9 Labs 06/06/24 08:20 06/06/24 08:20 Imaging Radiology Impressions: ITS Impressions KUB X-Ray 06/03/24 19:55 IMPRESSION: Increased amount of stool in the colon suggesting constipation. Please correlate with clinical presentation. Electronically signed by: Oneida Pham MD 06/04/2024 07:31 AM EDT Renal Ultrasound 06/04/24 14:49 IMPRESSION: No ultrasound evidence of renal obstruction or hydronephrosis. Limited visualization of the left kidney obscured by bowel gas, exam otherwise unremarkable. Electronically signed by: Oneida Pham MD 06/05/2024 12:56 PM EDT Abdomen/Pelvis CT 06/04/24 18:33 IMPRESSION: Severe constipation. Otherwise unremarkable CT abdomen and pelvis. Fleischner guidelines were followed. Electronically signed by: Deyvi Collins MD 06/04/2024 07:05 PM EDT Medications Medications Current Medications Acetaminophen (Acetaminophen 325 Mg Tablet) 650 mg PO Q6H PRN PRN Reason: Headache/Pain Mild Scale (1-3) Last Admin: 06/11/24 09:59 Dose: 650 mg Al Hydroxide/Mg Hydroxide (Magnesium Hydrox/Alum Hydrox 30 Ml Oral.Susp) 30 ml PO Q6H PRN PRN Reason: Heartburn/Nausea Albuterol Sulfate (Albuterol Sulfate 90 Mcg 8 Gm Inhaler) 2 puff INHALE QID PRN PRN Reason: Shortness Of Breath Ascorbic Acid (Ascorbic Acid 500 Mg Tablet) 1,000 mg PO DAILY ELMO Last Admin: 06/11/24 09:59 Dose: 1,000 mg Bisacodyl (Bisacodyl 5 Mg Tablet.Dr) 10 mg PO BEDTIME ELMO Last Admin: 06/11/24 20:24 Dose: Not Given Cariprazine (Cariprazine Hcl 3 Mg Capsule) 3 mg PO DAILY ELMO Last Admin: 06/11/24 10:00 Dose: 3 mg Clonidine HCl (Clonidine Hcl 0.1 Mg Tablet) 0.1 mg PO BEDTIME ELMO; Protocol Last Admin: 06/11/24 21:29 Dose: 0.1 mg Clonidine HCl (Clonidine Hcl 0.1 Mg Tablet) 0.1 mg PO Q4H PRN; Protocol PRN Reason: anxiety Last Admin: 06/11/24 15:41 Dose: 0.1 mg Fluconazole (Fluconazole 100 Mg Tablet) 200 mg PO DAILY ELMO Stop: 06/15/24 09:59 Last Admin: 06/11/24 09:59 Dose: 200 mg Hydroxyzine HCl (Hydroxyzine Hcl 25 Mg Tablet) 25 mg PO Q6H PRN PRN Reason: Anxiety Last Admin: 06/11/24 16:16 Dose: 25 mg Lactulose (Lactulose 20 Gm/30 Ml Solution) 40 gm PO DAILY ELMO Last Admin: 06/11/24 09:59 Dose: Not Given Loperamide HCl (Loperamide Hcl 2 Mg Capsule) 2 mg PO Q4H PRN PRN Reason: Diarrhea Magnesium Hydroxide (Milk Of Magnesia 30 Ml Oral.Susp) 30 ml PO DAILY PRN PRN Reason: Constipation Last Admin: 06/04/24 05:22 Dose: 30 ml Patient Own (Belbuca (75mcg Buccal Films)) 1 each PO BID ELMO Last Admin: 06/11/24 21:29 Dose: 1 each Ondansetron HCl (Ondansetron Odt 4 Mg Tab.Rapdis) 4 mg TRANSLINGU Q6H PRN PRN Reason: Nausea and Vomiting Last Admin: 06/06/24 17:34 Dose: 4 mg Polyethylene Glycol (Polyethylene Glycol 3350 17 Gm Powd.Pack) 17 gm PO BID [facility] Last Admin: 06/11/24 20:25 Dose: Not Given Quetiapine Fumarate (Quetiapine Fumarate 50 Mg Tablet) 50 mg PO BEDTIME [facility] Last Admin: 06/11/24 21:30 Dose: 50 mg Senna/Docusate Sodium (Sennosides/Docusate Sodium Tablet) 2 tab PO BID [facility] Last Admin: 06/11/24 20:25 Dose: Not Given Simethicone (Simethicone 80 Mg Tab.Chew) 160 mg PO BID PRN PRN Reason: bloating/gas Last Admin: 06/07/24 11:06 Dose: 160 mg Tamsulosin HCl (Tamsulosin Hcl 0.4 Mg Capsule) 0.4 mg PO BEDTIME [facility] Last Admin: 06/11/24 21:29 Dose: 0.4 mg Allergies Allergies Allergy/AdvReac Type Severity Reaction Status Date / Time azithromycin Allergy Itching Verified 05/25/24 19:31 levofloxacin [From Levaquin] Allergy Nightmare Verified 05/25/24 19:31 nitrofurantoin Allergy Itching Verified 05/25/24 19:31 [From Macrodantin] Assessment & Plan Assessment & Plan (1) MDD (major depressive disorder), recurrent episode, moderate: Status: Acute Code(s): F33.1 - Major depressive disorder, recurrent, moderate (2) PTSD (post-traumatic stress disorder): Status: Acute Code(s): F43.10 - Post-traumatic stress disorder, unspecified (3) Osteogenesis imperfecta: Status: Acute Code(s): Q78.0 - Osteogenesis imperfecta (4) Jennifer-Danlos disease: Status: Acute Code(s): Q79.60 - Jennifer-Danlos syndrome, unspecified (5) Chronic pain syndrome: Status: Acute Code(s): G89.4 - Chronic pain syndrome (6) Indwelling Van catheter present: Status: Acute Code(s): Z97.8 - Presence of other specified devices (7) Urinary retention: Status: Acute Code(s): R33.9 - Retention of urine, unspecified (8) Voiding dysfunction: Status: Acute Code(s): N39.8 - Other specified disorders of urinary system Plan HPI: Patient is a 39-year-old female with history of Jennifer Danlos syndrome, osteogenesis imperfecta, myofascial pain syndrome, migraines, juvenile osteoporosis, asthma, and mood disorder with history of rectocele, vaginal mesh surgery, urinary retention requiring Van catheterization, which was recently restarted. P atient?presented?to?[place]?on?924?following?intentional?overdose?on?muscle?rel axers.??Patient?lujan mary?was?immediately?transferred?to?medical?floor?for?urinary?retention;?she?stab ilized?there?and?was?discharged.?? She?presents?again?for?overdose On?gabapentin?and?trazodone,?Which?she?asserts?was?not?intentional (though later admits it was),?saying?she?just?wanted?to?sleep?and?get?relief?from?chronic?pain H owever?she?agrees?it?was?impulsive?and?unsafe.??Patient?currently?denies?any?SI. ??She?reports?howeve r?that?life?has?been?very?difficultff?pain?medications,?having?been?prescribed?o pioids?consistently?for?the?past?24?years,? as?well?as?Ativan.??Patient?agrees?she?needs Help?stabilizing?and?coping. Relevant Medical/psych History: Patient was on opiates scheduled for 24 years to manage chronic medical comorbidities, resulting in hx of multiple fractures/falls and subsequent chronic pain. Pt denies any hx of substance abuse, including cannabis. She did screen positive for Fentanyl at first admission in October 2024 but is adamant she's never used it in her life and no quantitative labs done (leaving Fentanyl use inconclusive). Patients long-time physician of [address] Brigido Dietrich retired and new PCP tapered her off and discontinued all opioid pain management (also tapered and dc'd ativan). Patient reports she has been in constant pain and discomfort since then and has felt very frustrated and challenged to enjoy life, sometimes challenging her desire to live. Discussed?case?with?WAREHOUSEMAN Vianey Dunaway from pain management clinic: pt seen on 05/24. WAREHOUSEMAN Gume agrees that patients medical comorbidities and subsequent chronic pain syndrome are commonly treated with opioid pain management. She recommends either Butrans patch or preferably Belbucha films (a form of Buprenorphin and titrating it to 150mg BID). Pt is also appropriate to get other nerve blocking treatments at pain clinic who will f/u with pt. Cycle Touring Guide spoke with patient's PCP Dr. Rubio at [facility] Dr. Rubio reports concurs that patient has Osteogenesis imprefecta, Ehlos Danlos Pt was on opioids for 24 years with prior PCP. With [facility] she was on Oxycodine 30mg QID and Oxycontin 30mg daily. In Sep 2023 pt was admitted to [facility] for concern for overdose. Additionally, there were other concerns including that [facility] notes referenced that patient reported being on a Fentanyl patch, which this provider had never prescribed. Additionally, there was hx of patient needing refills early and a report that her mother had used some of her medications. Also patient had significant weight loss which provider was concerned might have contributed to possible accidental overdose. Because of these concerns provider, clinic repeatedly called patient to come in and discuss pain management and reportedly reached out to her from October until January however patient did not respond or come in for appointments, having missed several. Provider reports that because of lack of communication and ongoing concern that was never addressed, Provider felt it was necessary to taper patient off pain medication which was started in January; patient was also tapered off Ativan. Provider agrees that patient does have significant medical history that is commonly treated with chronic pain medication. Cycle Touring Guide discussed options with them and Dr. Rubio agrees that starting patient on a buprenorphine product is an acceptable alternative to oxycodone. Vraylar since depressed and hx of manic-esque IMPRESSION: Patient's?depression?and?SI?seem?to?have significant?situational component?as?she?is?No?longer?receiving?pain?management?for?severe,?chronic?pain . P atient?has?no?known?history?of?substance?abuse.??Although?she?did?screen?positiv e?for?fentanyl (on?10/27/2023 and?05/18/2024), No?quantitative?analysis?was?done. ?This?mean that?fentanyl?screen?could?very?well?be?a?false-positive?result (which is not uncommon). Medical?decision?should?not?be?based?on?only?a?positive?screen?for?fentanyl. Patient does struggle with SI and with her chronic?pain?And?poor?support?will?likely?continue?to?produce?mood?instability.? ?Treatment?plan?will?include?screenplay writer/team?discussion?with Outpatient?PCP?regarding?plan?for?treatment. Hospital course: 06/05: Continue current regimen and plans 06/06. Continue current plans and regimen. Loperamide was put on hold. Started on simethicone by hospitalist. No indications of GI bleeding currently. -seen by GI: C/o constipation and worsening abdominal distension. Will order CT A/P with IV/PO contrast to assess for SBO/ileus though passage of gas and small amount of stool argues against complete obstruction; however she is at risk given multiple surgeries. If no obstruction will order bowel regimen to address constipation. Continue Van, Urology following. 06/07 Patient reports that she is depressed. She apologized for not being more forthcoming earlier on in says it took her awhile to admitted to herself but she does not want to be in this world anymore... And has a plan to jump in front of a train on discharge. Patient also reports that overdose on trazodone/gabapentin was actually an intentional suicide attempt. She reports a constant deluge of self-deprecating thoughts which include that she is worthless, discussed in, and fat. Cycle Touring Guide reviewed patient's history of anorexia and patient reports she sees herself as fat every day and eats very little (history of anorexia since 14 years old; was at brought up oral for a month with a feeding tube; she understands that this is a significant cause of her chronic constipation). Despite her SI, patient does want help getting better agrees to try antidepressant medication; screenplay writer reviewed options and risks/side effects and patient with Vraylar. Also discussed pain medication management and patient agrees with Belbuca which she has heard of; she also agrees to non opioid pain management and will follow-up with pain management Clinic here at [place]. Discussed relationship with her mother and she does not SA think her mother struggles with drug addiction but has caught her trying to get into her room, which patient keeps locked, looking for her medications which she has taken in the past. Patient said she reported this to her PCP. Patient does have history of being prescribed fentanyl patch however she did not like them and weaned herself off of them; set had some left over 06/08 Patient remains depressed with suicidal thinking however is trying to be hopeful and has tolerated Vraylar and says will continue, with increased dose; grateful for help getting Belbuca through prior authorization. -Discussed case with urology who recommends remaining with indwelling Van since failed voiding attempt on 06/03; will continue to follow -pt reported and nurse corroborated that Van bag containing urine was blood- tinged; discussed with Urologist, deemed likely micro trauma, and to keep van in place; recently failed voiding trial on 06/03 06/09 Patient reports she remains depressed, with SI. Patient also reports she had a very difficult time sleeping last night feeling very upset following a conversation she had on the phone with her mother. Patient expressed to her mother she is feeling hurt that her mom has not visited or called throughout her admission, even on patient's birthday; she says her mom was on apologetic. Patient also challenged her mom regarding her mom's past comment that patient could burn in hell with her father (who 2 years ago); mom remained unapologetic. Patient tells screenplay writer she has no idea why her mom said this other than that her mom is crazy... Subsequently patient reports that throughout the night, she had racing thoughts and no sleep. 06/11: Continue tx plan 06/12: Hospitalist follow up 06/13 Continue plan of care Discussed medications and patient and pt is eager to try Belbuca Films for pain management, available today dc'd gabapentin; pt said has never helped for pain or anxiety Adding clonidine at bedtime to help w/ sleep, anxiety PLAN: CV? One-to-one?since?indwelling?Van Increased to Vraylar 3 mg daily (Vraylar chosen since patient has depression but also history of manic type behaviors, possibly manic episode with some delusions and AH) STARTing Belbuca 75mcg films BID for pain management (history of fentanyl patch, morphine, oxycodone, OxyContin) Reason for continued inpatient stay Substantial Risk for: rapid decompensation and med/psych decompensation Time Spent With Patient Time: Total time managing care of this patient today ____ minutes.
[2024-06-12] MEDS: Fluconazole 100 MG TABLET 200 MG PO (09:30)
[2024-06-12] MEDS: Ascorbic Acid 500 MG TABLET 1000 MG PO (09:31)
[2024-06-12] MEDS: Sennosides/Docusate Sodium TABLET 2 TAB PO ×2 (09:32→21:49)
[2024-06-12] MEDS: Cariprazine HCl 3 MG CAPSULE PO (09:32)
[2024-06-12] MEDS: Lactulose 20 GM/30 ML SOLUTION 40 GM PO (09:33)
[2024-06-12 09:51] VITALS: BP 95/66; PULSE 83; TEMP 36.9; O2SAT 97
[2024-06-12] MEDS: BUPRENORPHINE 75 MCG 1 EACH PO (09:56)
[2024-06-12 13:01] VITALS: BP 109/71
[2024-06-12] MEDS: cloNIDine HCL 0.1 MG TABLET PO ×3 (13:01→21:49)
--- NOTE | 2024-06-12 14:22 | PM.EVENT ---
Event Note Date of Service: 06/12/24 Event Note: Patient is a 39-year-old female with a PMH significant for Jennifer-Danlos syndrome, osteogenesis imperfecta, myofascial pain syndrome, migraines, juvenile osteoporosis, asthma, and mood disorder who was admitted [facility] for increasing depression with intentional overdose. Hospitalist consult for question of cellulitis to left forearm and wrist. Patient seen and evaluated on the unit where there areas slight erythema and dry and cracked skin on anterior wrist and 2nd and third knuckles of left upper extremity. No warmth, fluctuance, or induration noted. No concern for cellulitis or abscess. As pictured below Patient denies history of illicit substances, including IVDU. Patient's skin instead appears dry and cracked at flexure points, and could be treated with Eucerin lotion as needed. No indication for antibiotics at this time. Thank you for allowing us to participate in the care of this patient. Will sign off for now. Please re-consult if any acute issue need arises. Time Spent With Patient Time: Total time managing care of this patient today ____ minutes.
[2024-06-12] MEDS: hydrOXYzine HCL 25 MG TABLET PO ×2 (15:10→21:47)
--- NOTE | 2024-06-12 16:21 | P.EN_ITS ---
Event Note Date of Service: 06/12/24 Event Note: Patient is a 39-year-old female with a PMH significant for eyelid Danlos syndrome, osteogenesis imperfecta, myofascial pain syndrome, migraines, juvenile osteoarthritis, asthma, and mood disorder who was admitted to [facility] were increasing depression with intentional overdose on home medications. Hospitalist consult for left leg pain, ankle edema, and left ankle pain. Patient seen and evaluated earlier this afternoon where patient complained of ch ronic musculoskeletal pain. Patient reports having multiple surgeries of upper and lower extremities, including right knee surgery. Patient was seen ambulating without difficulties while on the unit. During physical examination no appreciable edema noted. No reduction of ROM of lower extremities bilaterally. Patient should follow-up outpatient with orthopedics and/or PCP for chronic musculoskeletal pain. Pain management as per Psychiatry. Time Spent With Patient Time: Total time managing care of this patient today ____ minutes.
[2024-06-12 17:43] VITALS: BP 113/66; PULSE 70; RESP 18; TEMP 37.1; O2SAT 100
--- NOTE | 2024-06-12 17:59 | ECG_ITS ---
Test Reason : chest discomfort Blood Pressure : / mmHG Vent. Rate : 070 BPM Atrial Rate : 070 BPM P-R Int : 136 ms QRS Dur : 092 ms QT Int : 418 ms P-R-T Axes : 077 056 062 degrees QTc Int : 451 ms Sinus rhythm Otherwise normal ECG When compared with ECG of 26-MAY-2024 01:42, T wave amplitude has increased in Anterior leads Referred By: Kelle Coe Electronically Signed By:Rowdy Hall
--- NOTE | 2024-06-12 18:35 | PC.NURSE ---
Pt c/o racing heart and mild jaw tightness. Pt alert/oriented and appeared in no visible distress. VSS. Covering provider Kelle Coe NP notified and ECG obtained per orders. Hospitalist Victor Manuel Noyola notified. ECG results sent to both providers. Pt's primary nurse made aware.
[2024-06-12 19:28] VITALS: BP 120/68
--- NOTE | 2024-06-12 19:45 | P.EN_ITS ---
Event Note Date of Service: 06/12/24 Event Note: The patient 39-year-old female admitted to [facility] with hospitalist consult placed for patient experiencing racing heart and having abnormal EKG. Patient seen and evaluated in her room where she complains of lightheadedness, dizziness, racing heart, and left lower jaw tightness. Patient reports she has felt her heart racing then stopping and slowing down, and then racing again. Also reports feeling like her heart has been fluttering. EKG obtained which computer reading states sinus rhythm with fusion complexes. Review of EKG shows likely artifact in V1, otherwise showing sinus rhythm with HR of 70 and without ischemic changes. Auscultated patient for at least 2 minutes where she was in regular rate and rhythm without murmurs rubs or gallops. Heart rate range 75- 80. Patient's jaw nontender to palpation, and no reduction in ROM of TMJ. Will check troponin and repeat EKG in the morning. Time Spent With Patient Time: Total time managing care of this patient today ____ minutes.
[2024-06-12 19:47] LABS: Troponin-I High Sensitivity < 2.7 ng/L (<3.5-17.0)
[2024-06-12 20:00] VITALS: BP 120/68; PULSE 86; RESP 15; TEMP 36.9; O2SAT 100
[2024-06-12] MEDS: Acetaminophen 325 MG TABLET 650 MG PO (21:47)
[2024-06-12] MEDS: Tamsulosin HCL 0.4 MG CAPSULE PO (21:49)
[2024-06-12] MEDS: QUEtiapine Fumarate 50 MG TABLET PO (21:49)
--- NOTE | 2024-06-13 08:00 | ECG_ITS ---
Test Reason : PREV W/FUSIONCOMPLEXS IN V1 Blood Pressure : / mmHG Vent. Rate : 057 BPM Atrial Rate : 057 BPM P-R Int : 130 ms QRS Dur : 092 ms QT Int : 448 ms P-R-T Axes : 065 053 064 degrees QTc Int : 436 ms Sinus bradycardia Otherwise normal ECG When compared with ECG of 12-JUN-2024 18:17, Fusion complexes are no longer Present Referred By: Viky Trivedi Electronically Signed By:Rowdy Hall
[2024-06-13] MEDS: Cariprazine HCl 3 MG CAPSULE PO (08:48)
[2024-06-13] MEDS: Fluconazole 100 MG TABLET 200 MG PO (08:48)
[2024-06-13] MEDS: Ascorbic Acid 500 MG TABLET 1000 MG PO (08:48)
[2024-06-13] MEDS: BUPRENORPHINE 75 MCG 1 EACH PO ×2 (08:57→21:42)
[2024-06-13 09:06] LABS: Troponin-I High Sensitivity < 2.7 ng/L (<3.5-17.0)
[2024-06-13 09:21] VITALS: BP 117/75; PULSE 86; RESP 18; TEMP 36.6
[2024-06-13] MEDS: cloNIDine HCL 0.1 MG TABLET PO ×3 (09:21→21:42)
--- NOTE | 2024-06-13 10:07 | HO.PSYCHPN ---
Subjective Subjective Date of Service: 06/13/24 Reason For Visit: Sa Interim History: Met with patient; discussed with team Patient remains depressed with suicidal thinking tentative plans Patient reports that she is sleeping better which she is grateful for and pain medication continues to be very helpful. Patient however feels exceedingly anxious; reactive to loud noises, finding that she will jumping get very easily startled. Patient had an upsetting phone call with her mother and has decided not to take any phone calls from her for while, feeling that her mom will just say something mean. Patient agrees to increasing Vraylar. She also agrees to getting out of the room and engaging in behavioral activation to help with treatment Mental Status Exam Mental Status Exam Narrative: Pt is alert and oriented; behavior is cooperative, friendly and calm; patient in physical pain; cachectic; dressed in hospital attire with unkempt hair but adequate hygiene; mood is described as depressed and affect congruent, downcast; eye contact appropriate; Speech is a little slowed, a little soft, normal prosody and not pressured; psychomotor retardation present; thought process is organized and goal directed; Thought content is on feeling defeated, in despair; also on tx; otherwise pertinent to relevant topics and without any delusional content, paranoid ideations or grandiosity; positive for SI; no HI. There is no evidence of perceptual disturbance. Patients insight and judgment impaired Diagnostics Vital Signs (24Hr): Vital Signs - 24 hr 06/12/24 13:01 06/12/24 17:43 06/12/24 19:28 Temperature 98.8 F Pulse Rate 70 Respiratory Rate 18 Blood Pressure 109/71 113/66 120/68 Pulse Oximetry 100 Oxygen Delivery Method Room Air 06/12/24 20:00 06/13/24 09:21 Temperature 98.4 F 97.8 F Pulse Rate 86 86 Respiratory Rate 15 18 Blood Pressure 120/68 117/75 Pulse Oximetry 100 Oxygen Delivery Method BMI result Body Mass Index 16.9 Labs 06/06/24 08:20 06/06/24 08:20 Labs: Laboratory Results - last 48 hr 06/12/24 06/12/24 06/13/24 19:19 19:22 08:07 Hold Purple Top SEE NOTE Troponin I High Sens < 2.7 < 2.7 Imaging Radiology Impressions: ITS Impressions KUB X-Ray 06/03/24 19:55 IMPRESSION: Increased amount of stool in the colon suggesting constipation. Please correlate with clinical presentation. Electronically signed by: Oneida Pham MD 06/04/2024 07:31 AM EDT RP Renal Ultrasound 06/04/24 14:49 IMPRESSION: No ultrasound evidence of renal obstruction or hydronephrosis. Limited visualization of the left kidney obscured by bowel gas, exam otherwise unremarkable. Electronically signed by: Oneida Pham MD 06/05/2024 12:56 PM EDT RP Abdomen/Pelvis CT 06/04/24 18:33 IMPRESSION: Severe constipation. Otherwise unremarkable CT abdomen and pelvis. Fleischner guidelines were followed. Electronically signed by: Deyvi Collins MD 06/04/2024 07:05 PM EDT RP Medications Medications Current Medications Acetaminophen (Acetaminophen 325 Mg Tablet) 650 mg PO Q6H PRN PRN Reason: Headache/Pain Mild Scale (1-3) Last Admin: 06/12/24 21:47 Dose: 650 mg Al Hydroxide/Mg Hydroxide (Magnesium Hydrox/Alum Hydrox 30 Ml Oral.Susp) 30 ml PO Q6H PRN PRN Reason: Heartburn/Nausea Albuterol Sulfate (Albuterol Sulfate 90 Mcg 8 Gm Inhaler) 2 puff INHALE QID PRN PRN Reason: Shortness Of Breath Ascorbic Acid (Ascorbic Acid 500 Mg Tablet) 1,000 mg PO DAILY ELMO Last Admin: 06/13/24 08:48 Dose: 1,000 mg Bisacodyl (Bisacodyl 5 Mg Tablet.Dr) 10 mg PO BEDTIME ELMO Last Admin: 06/12/24 22:09 Dose: Not Given Cariprazine (Cariprazine Hcl 3 Mg Capsule) 3 mg PO DAILY ELMO Last Admin: 06/13/24 08:48 Dose: 3 mg Clonidine HCl (Clonidine Hcl 0.1 Mg Tablet) 0.1 mg PO BEDTIME ELMO; Protocol Last Admin: 06/12/24 21:49 Dose: 0.1 mg Clonidine HCl (Clonidine Hcl 0.1 Mg Tablet) 0.1 mg PO Q4H PRN; Protocol PRN Reason: anxiety Last Admin: 06/13/24 09:21 Dose: 0.1 mg Fluconazole (Fluconazole 100 Mg Tablet) 200 mg PO DAILY ELMO Stop: 06/15/24 09:59 Last Admin: 06/13/24 08:48 Dose: 200 mg Hydroxyzine HCl (Hydroxyzine Hcl 25 Mg Tablet) 25 mg PO Q6H PRN PRN Reason: Anxiety Last Admin: 06/12/24 21:47 Dose: 25 mg Lactulose (Lactulose 20 Gm/30 Ml Solution) 40 gm PO DAILY [facility] Last Admin: 06/13/24 08:46 Dose: Not Given Loperamide HCl (Loperamide Hcl 2 Mg Capsule) 2 mg PO Q4H PRN PRN Reason: Diarrhea Magnesium Hydroxide (Milk Of Magnesia 30 Ml Oral.Susp) 30 ml PO DAILY PRN PRN Reason: Constipation Last Admin: 06/04/24 05:22 Dose: 30 ml Multi-Ingred Cream/Lotion/Oil/Oint (Mineral Oil/Petrolatum,White 106 Gm Tube) 1 appl TOPICAL BID PRN; Protocol PRN Reason: Dry Skin Patient Own (Belbuca (75mcg Buccal Films)) 1 each PO BID [facility] Last Admin: 06/13/24 08:57 Dose: 1 each Ondansetron HCl (Ondansetron Odt 4 Mg Tab.Rapdis) 4 mg TRANSLINGU Q6H PRN PRN Reason: Nausea and Vomiting Last Admin: 06/06/24 17:34 Dose: 4 mg Polyethylene Glycol (Polyethylene Glycol 3350 17 Gm Powd.Pack) 17 gm PO BID [facility] Last Admin: 06/13/24 08:47 Dose: Not Given Quetiapine Fumarate (Quetiapine Fumarate 50 Mg Tablet) 50 mg PO BEDTIME [facility] Last Admin: 06/12/24 21:49 Dose: 50 mg Senna/Docusate Sodium (Sennosides/Docusate Sodium Tablet) 2 tab PO BID [facility] Last Admin: 06/13/24 08:47 Dose: Not Given Simethicone (Simethicone 80 Mg Tab.Chew) 160 mg PO BID PRN PRN Reason: bloating/gas Last Admin: 06/07/24 11:06 Dose: 160 mg Tamsulosin HCl (Tamsulosin Hcl 0.4 Mg Capsule) 0.4 mg PO BEDTIME [facility] Last Admin: 06/12/24 21:49 Dose: 0.4 mg Allergies Allergies Allergy/AdvReac Type Severity Reaction Status Date / Time azithromycin Allergy Itching Verified 05/25/24 19:31 levofloxacin [From Levaquin] Allergy Nightmare Verified 05/25/24 19:31 nitrofurantoin Allergy Itching Verified 05/25/24 19:31 [From Macrodantin] Assessment & Plan Assessment & Plan (1) MDD (major depressive disorder), recurrent episode, moderate: Status: Acute Code(s): F33.1 - Major depressive disorder, recurrent, moderate (2) PTSD (post-traumatic stress disorder): Status: Acute Code(s): F43.10 - Post-traumatic stress disorder, unspecified (3) Osteogenesis imperfecta: Status: Acute Code(s): Q78.0 - Osteogenesis imperfecta (4) Jennifer-Danlos disease: Status: Acute Code(s): Q79.60 - Jennifer-Danlos syndrome, unspecified (5) Chronic pain syndrome: Status: Acute Code(s): G89.4 - Chronic pain syndrome (6) Indwelling Van catheter present: Status: Acute Code(s): Z97.8 - Presence of other specified devices (7) Urinary retention: Status: Acute Code(s): R33.9 - Retention of urine, unspecified (8) Voiding dysfunction: Status: Acute Code(s): N39.8 - Other specified disorders of urinary system Plan HPI: Patient is a 39-year-old female with history of Jennifer Danlos syndrome, osteogenesis imperfecta, myofascial pain syndrome, migraines, juvenile osteoporosis, asthma, and mood disorder with history of rectocele, vaginal mesh surgery, urinary retention requiring Van catheterization, which was recently restarted. Patient?presented?to?[facility]?on?924?following?intentional?overdose?on?muscle?relaxers.??Patient?however?was?immediately?transferred?to?medical?floor?for?urinary?retention;?she?stabilized?there?and?was?discharged.?? She?presents?again?for?overdose On?gabapentin?and?trazodone,?Which?she?asserts?was?not?intentional (though later admits it was),?saying?she?just?wanted?to?sleep?and?get?relief?from?chronic?pain However?she?agrees?it?was?impulsive?and?unsafe.??Patient?currently?denies?any?SI.??She?reports?however?that?life?has?been?very?difficultff?pain?medications,?having?been?prescribed?opioids?consistently?for?the?past?24?years,? as?well?as?Ativan.??Patient?agrees?she?needs Help?stabilizing?and?coping. Relevant Medical/psych History: Patient was on opiates scheduled for 24 years to manage chronic medical comorbidities, resulting in hx of multiple fractures/falls and subsequent chronic pain. Pt denies any hx of substance abuse, including cannabis. She did screen positive for Fentanyl at first admission in October 2024 but is adamant she's never used it in her life and no quantitative labs done (leaving Fentanyl use inconclusive). Patients long-time physician of [address] Brigido Dietrich retired and new PCP tapered her off and discontinued all opioid pain management (also tapered and dc'd ativan). Patient reports she has been in constant pain and discomfort since then and has felt very frustrated and challenged to enjoy life, sometimes challenging her desire to live. Discussed?case?with?MAGDA Dunaway from pain management clinic: pt seen on 05/24. TUTORING CLINICIAN Gume agrees that patients medical comorbidities and subsequent chronic pain syndrome are commonly treated with opioid pain management. She recommends either Butrans patch or preferably Belbucha films (a form of Buprenorphin and titrating it to 150mg BID). Pt is also appropriate to get other nerve blocking treatments at pain clinic who will f/u with pt. Proration Clerk spoke with patient's PCP Dr. Rubio at [facility] Dr. Rubio reports concurs that patient has Osteogenesis imprefecta, Ehlos Danlos Pt was on opioids for 24 years with prior PCP. With [facility] she was on Oxycodine 30mg QID and Oxycontin 30mg daily. In Sep 2023 pt was admitted to [facility] for concern for overdose. Additionally, there were other concerns including that [facility] notes referenced that patient reported being on a Fentanyl patch, which this provider had never prescribed. Additionally, there was hx of patient needing refills early and a report that her mother had used some of her medications. Also patient had significant weight loss which provider was concerned might have contributed to possible accidental overdose. Because of these concerns provider, clinic repeatedly called patient to come in and discuss pain management and reportedly reached out to her from October until January however patient did not respond or come in for appointments, having missed several. Provider reports that because of lack of communication and ongoing concern that was never addressed, Provider felt it was necessary to taper patient off pain medication which was started in January; patient was also tapered off Ativan. Provider agrees that patient does have significant medical history that is commonly treated with chronic pain medication. Proration Clerk discussed options with them and Dr. Rubio agrees that starting patient on a buprenorphine product is an acceptable alternative to oxycodone. Vraylar since depressed and hx of manic-esque IMPRESSION: Patient's?depression?and?SI?seem?to?have significant?situational component?as?she?is?No?longer?receiving?pain?management?for?severe,?chronic?pain. Patient?has?no?known?history?of?substance?abuse.??Although?she?did?screen?positive?for?fentanyl (on?10/27/2023 and?05/18/2024), No?quantitative?analysis?was?done. ?This?mean that?fentanyl?screen?could?very?well?be?a?false-positive?result (which is not uncommon). Medical?decision?should?not?be?based?on?only?a?positive?screen?for?fentanyl. Patient does struggle with SI and with her chronic?pain?And?poor?support?will?likely?continue?to?produce?mood?instability.??Treatment?plan?will?include?process description writer/team?discussion?with Outpatient?PCP?regarding?plan?for?treatment. Hospital course: 06/05: Continue current regimen and plans 06/06. Continue current plans and regimen. Loperamide was put on hold. Started on simethicone by hospitalist. No indications of GI bleeding currently. -seen by GI: C/o constipation and worsening abdominal distension. Will order CT A/P with IV/PO contrast to assess for SBO/ileus though passage of gas and small amount of stool argues against complete obstruction; however she is at risk given multiple surgeries. If no obstruction will order bowel regimen to address constipation. Continue Van, Urology following. 06/07 Patient reports that she is depressed. She apologized for not being more forthcoming earlier on in says it took her awhile to admitted to herself but she does not want to be in this world anymore... And has a plan to jump in front of a train on discharge. Patient also reports that overdose on trazodone/gabapentin was actually an intentional suicide attempt. She reports a constant deluge of self-deprecating thoughts which include that she is worthless, discussed in, and fat. Proration Clerk reviewed patient's history of anorexia and patient reports she sees herself as fat every day and eats very little (history of anorexia since 14 years old; was at brought up oral for a month with a feeding tube; she understands that this is a significant cause of her chronic constipation). Despite her SI, patient does want help getting better agrees to try antidepressant medication; process description writer reviewed options and risks/side effects and patient with Vraylar. Also discussed pain medication management and patient agrees with Belbuca which she has heard of; she also agrees to non opioid pain management and will follow-up with pain management Clinic here at [place]. Discussed relationship with her mother and she does not SA think her mother struggles with drug addiction but has caught her trying to get into her room, which patient keeps locked, looking for her medications which she has taken in the past. Patient said she reported this to her PCP. Patient does have history of being prescribed fentanyl patch however she did not like them and weaned herself off of them; set had some left over 06/08 Patient remains depressed with suicidal thinking however is trying to be hopeful and has tolerated Vraylar and says will continue, with increased dose; grateful for help getting Belbuca through prior authorization. -Discussed case with urology who recommends remaining with indwelling Van since failed voiding attempt on 06/03; will continue to follow -pt reported and nurse corroborated that Van bag containing urine was blood-tinged; discussed with Urologist, deemed likely micro trauma, and to keep van in place; recently failed voiding trial on 06/03 06/09 Patient reports she remains depressed, with SI. Patient also reports she had a very difficult time sleeping last night feeling very upset following a conversation she had on the phone with her mother. Patient expressed to her mother she is feeling hurt that her mom has not visited or called throughout her admission, even on patient's birthday; she says her mom was on apologetic. Patient also challenged her mom regarding her mom's past comment that patient could burn in hell with her father (who 2 years ago); mom remained unapologetic. Patient tells process description writer she has no idea why her mom said this other than that her mom is crazy... Subsequently patient reports that throughout the night, she had racing thoughts and no sleep. Discussed medications and patient and pt is eager to try Belbuca Films for pain management, available today dc'd gabapentin; pt said has never helped for pain or anxiety Adding clonidine at bedtime to help w/ sleep, anxiety 06/10 patient reports that Belbuca is helping with pain Patient remains very depressed and continues to have suicidal thoughts, saying she wants to end her life when she leaves the hospital. Patient Says I do not understand myself.. And laments she is gone most of her life without any suicidal ideation and only started this past September. Patient shared about some other reasons that it might be occurring and agrees that she still mourning the loss of her father who was her confidante; dealing with chronic pain having been off pain medications for several months and the ongoing struggles in her relationship with her mother and brother whom she feels are bullying; trying to come to terms with the fact that her mother simply isn't going to be the kind of mother she wishes she had. Patient agrees to medication management. 06/13 still very depressed with SI. Sleeping better however which is helpful and pain medications are also helpful. Patient agrees to increasing Vraylar; agrees to behavioral activation and attending groups. Despite ongoing thoughts about self-harm and ending her life when she is discharge, patient is also future oriented and says she would like to find a new place to live separate from her mother and brother. Asks for help going about that. PLAN: CV? One-to-one?since?indwelling?Opal Increased to Vraylar 4.5 mg daily (Vraylar chosen since patient has depression but also history of manic type behaviors, possibly manic episode with some delusions and AH) STARTing Belbuca 75mcg films BID for pain management (history of fentanyl patch, morphine, oxycodone, OxyContin) Patient educated on: diagnosis, medication risk/benefits, therapeutic strategies and medical condition Informed Consent: understands Reason for continued inpatient stay Substantial Risk for: harm to self and rapid decompensation Time Spent With Patient Time: Total time managing care of this patient today ____ minutes.
[2024-06-13 17:49] VITALS: BP 131/82
[2024-06-13 20:00] VITALS: BP 109/71; PULSE 77; TEMP 36.7; O2SAT 98
[2024-06-13] MEDS: Sennosides/Docusate Sodium TABLET 2 TAB PO (21:26)
[2024-06-13] MEDS: bisacodyL 5 MG TABLET.DR 10 MG PO (21:26)
[2024-06-13] MEDS: Tamsulosin HCL 0.4 MG CAPSULE PO (21:27)
[2024-06-13] MEDS: QUEtiapine Fumarate 50 MG TABLET PO (21:27)
[2024-06-13 21:40] VITALS: BP 118/75; PULSE 56; O2SAT 98
[2024-06-13 21:42] VITALS: BP 118/75
[2024-06-13] MEDS: Mineral Oil/Petrolatum,White 106 GM Tube 1 APPL TOPICAL (21:44)
[2024-06-14] VITALS (7 sets, daily range): BP systolic 102–129; BP diastolic 65–77; PULSE 51–98; RESP 17; TEMP 36–36.4; O2SAT 97–100
[2024-06-14] MEDS: hydrOXYzine HCL 25 MG TABLET PO (03:11)
[2024-06-14] MEDS: cloNIDine HCL 0.1 MG TABLET PO ×4 (03:11→21:10)
[2024-06-14] MEDS: Acetaminophen 325 MG TABLET 650 MG PO (03:12)
[2024-06-14] MEDS: Cariprazine HCl 1.5 MG CAPSULE 4.5 MG PO (08:29)
[2024-06-14] MEDS: Fluconazole 100 MG TABLET 200 MG PO (08:29)
[2024-06-14] MEDS: Ascorbic Acid 500 MG TABLET 1000 MG PO (08:29)
[2024-06-14] MEDS: BUPRENORPHINE 75 MCG 1 EACH PO ×2 (08:37→21:11)
--- NOTE | 2024-06-14 16:14 | P.PNPSI_ITS ---
Subjective Subjective Date of Service: 06/14/24 Reason For Visit: Sa Interim History: Met with patient; discussed with team remains depressed and talking about Suicide. However she is also talking about finding a new place to live, other than her mothers and asking for direction to resources. Discussed medications and pt does not feel much different since started on Vraylar. She is open to other medication additions including Wellbutrin. Mental Status Exam Mental Status Exam Narrative: Pt is alert and oriented; behavior is cooperative, friendly and calm; patient in physical pain; cachectic; dressed in hospital attire with unkempt hair but adequate hygiene; mood is described as depressed and affect congruent, downcast; eye contact appropriate; Speech is a little slowed, a little soft, normal prosody and not pressured; psychomotor retardation present; thought process is organized and goal directed; Thought content is on feeling defeated, in despair; also on tx; otherwise pertinent to relevant topics and without any delusional content, paranoid ideations or grandiosity; positive for SI; no HI. There is no evidence of perceptual disturbance. Patients insight and judgment impaired Diagnostics Vital Signs (24Hr): Vital Signs - 24 hr 06/13/24 17:49 06/13/24 20:00 06/13/24 21:40 Temperature 98.0 F Pulse Rate 77 56 Respiratory Rate Blood Pressure 131/82 109/71 118/75 Pulse Oximetry 98 98 Oxygen Delivery Method Room Air Room Air 06/13/24 21:42 06/14/24 03:10 06/14/24 03:11 Temperature 97.5 F Pulse Rate 98 Respiratory Rate Blood Pressure 118/75 102/66 102/66 Pulse Oximetry Oxygen Delivery Method 06/14/24 08:00 06/14/24 10:18 06/14/24 15:41 Temperature 97.6 F Pulse Rate 56 Respiratory Rate 17 Blood Pressure 111/69 107/65 120/74 Pulse Oximetry 97 Oxygen Delivery Method Room Air BMI result Body Mass Index 16.9 Labs 06/06/24 08:20 06/06/24 08:20 Labs: Laboratory Results - last 48 hr 06/12/24 06/12/24 06/13/24 19:19 19:22 08:07 Hold Purple Top SEE NOTE Troponin I High Sens < 2.7 < 2.7 Imaging Radiology Impressions: ITS Impressions KUB X-Ray 06/03/24 19:55 IMPRESSION: Increased amount of stool in the colon suggesting constipation. Please correlate with clinical presentation. Electronically signed by: Oneida Pham MD 06/04/2024 07:31 AM EDT RP Renal Ultrasound 06/04/24 14:49 IMPRESSION: No ultrasound evidence of renal obstruction or hydronephrosis. Limited visualization of the left kidney obscured by bowel gas, exam otherwise unremarkable. Electronically signed by: Oneida Pham MD 06/05/2024 12:56 PM EDT RP Abdomen/Pelvis CT 06/04/24 18:33 IMPRESSION: Severe constipation. Otherwise unremarkable CT abdomen and pelvis. Fleischner guidelines were followed. Electronically signed by: Deyvi Collins MD 06/04/2024 07:05 PM EDT RP Medications Medications Current Medications Acetaminophen (Acetaminophen 325 Mg Tablet) 650 mg PO Q6H PRN PRN Reason: Headache/Pain Mild Scale (1-3) Last Admin: 06/14/24 03:12 Dose: 650 mg Al Hydroxide/Mg Hydroxide (Magnesium Hydrox/Alum Hydrox 30 Ml Oral.Susp) 30 ml PO Q6H PRN PRN Reason: Heartburn/Nausea Albuterol Sulfate (Albuterol Sulfate 90 Mcg 8 Gm Inhaler) 2 puff INHALE QID PRN PRN Reason: Shortness Of Breath Ascorbic Acid (Ascorbic Acid 500 Mg Tablet) 1,000 mg PO DAILY ELMO Last Admin: 06/14/24 08:29 Dose: 1,000 mg Bisacodyl (Bisacodyl 5 Mg Tablet.Dr) 10 mg PO BEDTIME ELMO Last Admin: 06/13/24 21:26 Dose: 10 mg Cariprazine (Cariprazine Hcl 1.5 Mg Capsule) 4.5 mg PO DAILY ELMO Last Admin: 06/14/24 08:29 Dose: 4.5 mg Clonidine HCl (Clonidine Hcl 0.1 Mg Tablet) 0.1 mg PO BEDTIME ELMO; Protocol Last Admin: 06/13/24 21:42 Dose: 0.1 mg Clonidine HCl (Clonidine Hcl 0.1 Mg Tablet) 0.1 mg PO Q4H PRN; Protocol PRN Reason: anxiety Last Admin: 06/14/24 15:41 Dose: 0.1 mg Fluconazole (Fluconazole 100 Mg Tablet) 200 mg PO DAILY [facility] Stop: 06/15/24 09:59 Last Admin: 06/14/24 08:29 Dose: 200 mg Hydroxyzine HCl (Hydroxyzine Hcl 25 Mg Tablet) 25 mg PO Q6H PRN PRN Reason: Anxiety Last Admin: 06/14/24 03:11 Dose: 25 mg Lactulose (Lactulose 20 Gm/30 Ml Solution) 40 gm PO DAILY ELMO Last Admin: 06/14/24 08:31 Dose: Not Given Loperamide HCl (Loperamide Hcl 2 Mg Capsule) 2 mg PO Q4H PRN PRN Reason: Diarrhea Magnesium Hydroxide (Milk Of Magnesia 30 Ml Oral.Susp) 30 ml PO DAILY PRN PRN Reason: Constipation Last Admin: 06/04/24 05:22 Dose: 30 ml Multi-Ingred Cream/Lotion/Oil/Oint (Mineral Oil/Petrolatum,White 106 Gm Tube) 1 appl TOPICAL BID PRN; Protocol PRN Reason: Dry Skin Last Admin: 06/13/24 21:44 Dose: 1 appl Patient Own (Belbuca (75mcg Buccal Films)) 1 each PO BID [facility] Last Admin: 06/14/24 08:37 Dose: 1 each Ondansetron HCl (Ondansetron Odt 4 Mg Tab.Rapdis) 4 mg TRANSLINGU Q6H PRN PRN Reason: Nausea and Vomiting Last Admin: 06/06/24 17:34 Dose: 4 mg Polyethylene Glycol (Polyethylene Glycol 3350 17 Gm Powd.Pack) 17 gm PO BID [facility] Last Admin: 06/14/24 08:32 Dose: Not Given Quetiapine Fumarate (Quetiapine Fumarate 50 Mg Tablet) 50 mg PO BEDTIME ELMO Last Admin: 06/13/24 21:27 Dose: 50 mg Senna/Docusate Sodium (Sennosides/Docusate Sodium Tablet) 2 tab PO BID ELMO Last Admin: 06/14/24 08:32 Dose: Not Given Simethicone (Simethicone 80 Mg Tab.Chew) 160 mg PO BID PRN PRN Reason: bloating/gas Last Admin: 06/07/24 11:06 Dose: 160 mg Tamsulosin HCl (Tamsulosin Hcl 0.4 Mg Capsule) 0.4 mg PO BEDTIME ELMO Last Admin: 06/13/24 21:27 Dose: 0.4 mg Allergies Allergies Allergy/AdvReac Type Severity Reaction Status Date / Time azithromycin Allergy Itching Verified 05/25/24 19:31 levofloxacin [From Levaquin] Allergy Nightmare Verified 05/25/24 19:31 nitrofurantoin Allergy Itching Verified 05/25/24 19:31 [From Macrodantin] Assessment & Plan Assessment & Plan (1) MDD (major depressive disorder), recurrent episode, moderate: Status: Acute Code(s): F33.1 - Major depressive disorder, recurrent, moderate (2) PTSD (post-traumatic stress disorder): Status: Acute Code(s): F43.10 - Post-traumatic stress disorder, unspecified (3) Osteogenesis imperfecta: Status: Acute Code(s): Q78.0 - Osteogenesis imperfecta (4) Jennifer-Danlos disease: Status: Acute Code(s): Q79.60 - Jennifer-Danlos syndrome, unspecified (5) Chronic pain syndrome: Status: Acute Code(s): G89.4 - Chronic pain syndrome (6) Indwelling Van catheter present: Status: Acute Code(s): Z97.8 - Presence of other specified devices (7) Urinary retention: Status: Acute Code(s): R33.9 - Retention of urine, unspecified (8) Voiding dysfunction: Status: Acute Code(s): N39.8 - Other specified disorders of urinary system Plan HPI: Patient is a 39-year-old female with history of Jennifer Danlos syndrome, osteogenesis imperfecta, myofascial pain syndrome, migraines, juvenile osteoporosis, asthma, and mood disorder with history of rectocele, vaginal mesh surgery, urinary retention requiring Van catheterization, which was recently restarted. P atient?presented?to?[facility]?on?924?following?intentional?overdose?on?muscle?rel axers.??Patient?lujan mary?was?immediately?transferred?to?medical?floor?for?urinary?retention;?she?stab ilized?there?and?was?discharged.?? She?presents?again?for?overdose On?gabapentin?and?trazodone,?Which?she?asserts?was?not?intentional (though later admits it was),?saying?she?just?wanted?to?sleep?and?get?relief?from?chronic?pain H owever?she?agrees?it?was?impulsive?and?unsafe.??Patient?currently?denies?any?SI. ??She?reports?howeve r?that?life?has?been?very?difficultff?pain?medications,?having?been?prescribed?o pioids?consistently?for?the?past?24?years,? as?well?as?Ativan.??Patient?agrees?she?needs Help?stabilizing?and?coping. Relevant Medical/psych History: Patient was on opiates scheduled for 24 years to manage chronic medical comorbidities, resulting in hx of multiple fractures/falls and subsequent chronic pain. Pt denies any hx of substance abuse, including cannabis. She did screen positive for Fentanyl at first admission in October 2024 but is adamant she's never used it in her life and no quantitative labs done (leaving Fentanyl use inconclusive). Patients long-time physician of [address] Brigido Dietrich retired and new PCP tapered her off and discontinued all opioid pain management (also tapered and dc'd ativan). Patient reports she has been in constant pain and discomfort since then and has felt very frustrated and challenged to enjoy life, sometimes challenging her desire to live. Discussed?case?with?MAGDA Dunaway from pain management clinic: pt seen on 05/24. MAGDA Dunaway agrees that patients medical comorbidities and subsequent chronic pain syndrome are commonly treated with opioid pain management. She recommends either Butrans patch or preferably Belbucha films (a form of Buprenorphin and titrating it to 150mg BID). Pt is also appropriate to get other nerve blocking treatments at pain clinic who will f/u with pt. In Home Sales Consultant spoke with patient's PCP Dr. Rubio at [facility] Dr. Rubio reports concurs that patient has Osteogenesis imprefecta, Ehlos Danlos Pt was on opioids for 24 years with prior PCP. With [facility] she was on Oxycodine 30mg QID and Oxycontin 30mg daily. In Sep 2023 pt was admitted to [facility] for concern for overdose. Additionally, there were other concerns including that [facility] notes referenced that patient reported being on a Fentanyl patch, which this provider had never prescribed. Additionally, there was hx of patient needing refills early and a report that her mother had used some of her medications. Also patient had significant weight loss which provider was concerned might have contributed to possible accidental overdose. Because of these concerns provider, clinic repeatedly called patient to come in and discuss pain management and reportedly reached out to her from October until January however patient did not respond or come in for appointments, having missed several. Provider reports that because of lack of communication and ongoing concern that was never addressed, Provider felt it was necessary to taper patient off pain medication which was started in January; patient was also tapered off Ativan. Provider agrees that patient does have significant medical history that is commonly treated with chronic pain medication. In Home Sales Consultant discussed options with them and Dr. Rubio agrees that starting patient on a buprenorphine product is an acceptable alternative to oxycodone. Vraylar since depressed and hx of manic-esque IMPRESSION: Patient's?depression?and?SI?seem?to?have significant?situational component?as?she?is?No?longer?receiving?pain?management?for?severe,?chronic?pain . P atient?has?no?known?history?of?substance?abuse.??Although?she?did?screen?positiv e?for?fentanyl (on?10/27/2023 and?05/18/2024), No?quantitative?analysis?was?done. ?This?mean that?fentanyl?screen?could?very?well?be?a?false-positive?result (which is not uncommon). Medical?decision?should?not?be?based?on?only?a?positive?screen?for?fentanyl. Patient does struggle with SI and with her chronic?pain?And?poor?support?will?likely?continue?to?produce?mood?instability.? ?Treatment?plan?will?include?designer writer/team?discussion?with Outpatient?PCP?regarding?plan?for?treatment. Hospital course: 06/05: Continue current regimen and plans 06/06. Continue current plans and regimen. Loperamide was put on hold. Started on simethicone by hospitalist. No indications of GI bleeding currently. -seen by GI: C/o constipation and worsening abdominal distension. Will order CT A/P with IV/PO contrast to assess for SBO/ileus though passage of gas and small amount of stool argues against complete obstruction; however she is at risk given multiple surgeries. If no obstruction will order bowel regimen to address constipation. Continue Van, Urology following. 06/07 Patient reports that she is depressed. She apologized for not being more forthcoming earlier on in says it took her awhile to admitted to herself but she does not want to be in this world anymore... And has a plan to jump in front of a train on discharge. Patient also reports that overdose on trazodone/gabapentin was actually an intentional suicide attempt. She reports a constant deluge of self-deprecating thoughts which include that she is worthless, discussed in, and fat. In Home Sales Consultant reviewed patient's history of anorexia and patient reports she sees herself as fat every day and eats very little (history of anorexia since 14 years old; was at brought up oral for a month with a feeding tube; she understands that this is a significant cause of her chronic constipation). Despite her SI, patient does want help getting better agrees to try antidepressant medication; designer writer reviewed options and risks/side effects and patient with Vraylar. Also discussed pain medication management and patient agrees with Belbuca which she has heard of; she also agrees to non opioid pain management and will follow-up with pain management Clinic here at [place]. Discussed relationship with her mother and she does not SA think her mother struggles with drug addiction but has caught her trying to get into her room, which patient keeps locked, looking for her medications which she has taken in the past. Patient said she reported this to her PCP. Patient does have history of being prescribed fentanyl patch however she did not like them and weaned herself off of them; set had some left over 06/08 Patient remains depressed with suicidal thinking however is trying to be hopeful and has tolerated Vraylar and says will continue, with increased dose; grateful for help getting Belbuca through prior authorization. -Discussed case with urology who recommends remaining with indwelling Van since failed voiding attempt on 06/03; will continue to follow -pt reported and nurse corroborated that Van bag containing urine was blood- tinged; discussed with Urologist, deemed likely micro trauma, and to keep van in place; recently failed voiding trial on 06/03 06/09 Patient reports she remains depressed, with SI. Patient also reports she had a very difficult time sleeping last night feeling very upset following a conversation she had on the phone with her mother. Patient expressed to her mother she is feeling hurt that her mom has not visited or called throughout her admission, even on patient's birthday; she says her mom was on apologetic. Patient also challenged her mom regarding her mom's past comment that patient could burn in hell with her father (who 2 years ago); mom remained unapologetic. Patient tells designer writer she has no idea why her mom said this other than that her mom is crazy... Subsequently patient reports that throughout the night, she had racing thoughts and no sleep. Discussed medications and patient and pt is eager to try Belbuca Films for pain management, available today dc'd gabapentin; pt said has never helped for pain or anxiety Adding clonidine at bedtime to help w/ sleep, anxiety 06/10 patient reports that Belbuca is helping with pain Patient remains very depressed and continues to have suicidal thoughts, saying she wants to end her life when she leaves the hospital. Patient Says I do not understand myself.. And laments she is gone most of her life without any suicidal ideation and only started this past September. Patient shared about some other reasons that it might be occurring and agrees that she still mourning the loss of her father who was her confidante; dealing with chronic pain having been off pain medications for several months and the ongoing struggles in her relationship with her mother and brother whom she feels are bullying; trying to come to terms with the fact that her mother simply isn't going to be the kind of mother she wishes she had. Patient agrees to medication management. 06/13 still very depressed with SI. Sleeping better however which is helpful and pain medications are also helpful. Patient agrees to increasing Vraylar; agrees to behavioral activation and attending groups. Despite ongoing thoughts about self-harm and ending her life when she is discharge, patient is also future oriented and says she would like to find a new place to live separate from her mother and brother. Asks for help going about that. 06/14 pt remains depressed, positive for SI with a plan but also future oriented talking about changing her living situation. Pt is engaged in treatment, trying to process her suicidal feelings and trying to be hopeful it will resolve. Agrees to adding Wellbutrin. -will likely add Wellbutrin; however, will probably keep Vraylar (maybe at lower dose) since pt has hx of manic-esque episodes (thought not formally diagnosed with bipolar as episode had several contributory factors) PLAN: CV? One-to-one?since?indwelling?Van Will likely start WEllbutrin XL 150mg for continued depression Continue Vraylar 4.5 mg daily (Vraylar chosen since patient has depression but also history of manic type behaviors, possibly manic episode with some delusions and AH) Continue Belbuca 75mcg films BID for pain management (history of fentanyl patch, morphine, oxycodone, OxyContin) Patient educated on: diagnosis, medication risk/benefits, therapeutic strategies and medical condition Informed Consent: understands Reason for continued inpatient stay Substantial Risk for: harm to self Time Spent With Patient Time: Total time managing care of this patient today ____ minutes.
[2024-06-14] MEDS: QUEtiapine Fumarate 50 MG TABLET PO (21:10)
[2024-06-14] MEDS: Tamsulosin HCL 0.4 MG CAPSULE PO (21:10)
--- NOTE | 2024-06-14 21:55 | PC.NURSE ---
Patient refused all bowel medications, stating I had diarrhea three times today, I don't want those now.
[2024-06-15] VITALS (7 sets, daily range): BP systolic 92–164; BP diastolic 65–100; PULSE 55–68; RESP 16; TEMP 36.6–36.8; O2SAT 96–98
[2024-06-15] MEDS: cloNIDine HCL 0.1 MG TABLET PO ×5 (01:47→20:32)
--- NOTE | 2024-06-15 05:20 | PC.NURSE ---
850 cc of nicolas urine emptied from patient's Joseph catheter bag this shift. Slight odor noted.
--- NOTE | 2024-06-15 06:39 | PC.NURSE ---
On Evening shift of 06/14 at approximately 2046, this designer writer contacted Dr Hermosillo regarding this patient's pulse of 50 and whether her scheduled dose of Clonidine should be held. Dr Hermosillo stated she's been tolerating it; mechanism does not directly effect HR. The medication was administered.
[2024-06-15] MEDS: Acetaminophen 325 MG TABLET 650 MG PO (06:42)
[2024-06-15] MEDS: Cariprazine HCl 1.5 MG CAPSULE 4.5 MG PO (08:47)
[2024-06-15] MEDS: Fluconazole 100 MG TABLET 200 MG PO (08:47)
[2024-06-15] MEDS: Ascorbic Acid 500 MG TABLET 1000 MG PO (08:47)
[2024-06-15] MEDS: BUPRENORPHINE 75 MCG 1 EACH PO ×2 (08:48→22:39)
--- NOTE | 2024-06-15 09:51 | P.PNPSI_ITS ---
Subjective Subjective Date of Service: 06/15/24 Reason For Visit: Sa Interim History: met with patient; discussed with team talked extensively about relationship with mother; bullying, hx since childhood. Discussed medications Mental Status Exam Mental Status Exam Narrative: Pt is alert and oriented; behavior is cooperative, friendly and calm; patient in physical pain; cachectic; dressed in hospital attire with unkempt hair but adequate hygiene; mood is described as depressed and affect congruent, downcast; eye contact appropriate; Speech is a little slowed, a little soft, normal prosody and not pressured; psychomotor retardation present; thought process is organized and goal directed; Thought content is on feeling defeated, in despair; also on tx; otherwise pertinent to relevant topics and without any delusional content, paranoid ideations or grandiosity; positive for SI; no HI. There is no evidence of perceptual disturbance. Patients insight and judgment impaired Diagnostics Vital Signs (24Hr): Vital Signs - 24 hr 06/14/24 10:18 06/14/24 15:41 06/14/24 20:00 Temperature 96.8 F Pulse Rate 51 Blood Pressure 107/65 120/74 129/77 Pulse Oximetry 100 Oxygen Delivery Method Room Air 06/14/24 21:10 06/15/24 01:47 06/15/24 06:44 Temperature Pulse Rate 56 Blood Pressure 129/77 116/78 121/70 Pulse Oximetry Oxygen Delivery Method BMI result Body Mass Index 16.9 Labs 06/06/24 08:20 06/06/24 08:20 Imaging Radiology Impressions: ITS Impressions KUB X-Ray 06/03/24 19:55 IMPRESSION: Increased amount of stool in the colon suggesting constipation. Please correlate with clinical presentation. Electronically signed by: Oneida Pham MD 06/04/2024 07:31 AM EDT Renal Ultrasound 06/04/24 14:49 IMPRESSION: No ultrasound evidence of renal obstruction or hydronephrosis. Limited visualization of the left kidney obscured by bowel gas, exam otherwise unremarkable. Electronically signed by: Oneida Pham MD 06/05/2024 12:56 PM EDT RP Abdomen/Pelvis CT 06/04/24 18:33 IMPRESSION: Severe constipation. Otherwise unremarkable CT abdomen and pelvis. Fleischner guidelines were followed. Electronically signed by: Deyvi Collins MD 06/04/2024 07:05 PM EDT RP Medications Medications Current Medications Acetaminophen (Acetaminophen 325 Mg Tablet) 650 mg PO Q6H PRN PRN Reason: Headache/Pain Mild Scale (1-3) Last Admin: 06/15/24 06:42 Dose: 650 mg Al Hydroxide/Mg Hydroxide (Magnesium Hydrox/Alum Hydrox 30 Ml Oral.Susp) 30 ml PO Q6H PRN PRN Reason: Heartburn/Nausea Albuterol Sulfate (Albuterol Sulfate 90 Mcg 8 Gm Inhaler) 2 puff INHALE QID PRN PRN Reason: Shortness Of Breath Ascorbic Acid (Ascorbic Acid 500 Mg Tablet) 1,000 mg PO DAILY [facility] Last Admin: 06/15/24 08:47 Dose: 1,000 mg Bisacodyl (Bisacodyl 5 Mg Tablet.Dr) 10 mg PO BEDTIME ELMO Last Admin: 06/14/24 21:51 Dose: Not Given Bupropion HCl (Bupropion Hcl Xl 150 Mg Tab.Er.24h) 150 mg PO DAILY ELMO Cariprazine (Cariprazine Hcl 1.5 Mg Capsule) 4.5 mg PO DAILY [facility] Last Admin: 06/15/24 08:47 Dose: 4.5 mg Clonidine HCl (Clonidine Hcl 0.1 Mg Tablet) 0.1 mg PO BEDTIME ELMO; Protocol Last Admin: 06/14/24 21:10 Dose: 0.1 mg Clonidine HCl (Clonidine Hcl 0.1 Mg Tablet) 0.1 mg PO Q4H PRN; Protocol PRN Reason: anxiety Last Admin: 06/15/24 06:44 Dose: 0.1 mg Fluconazole (Fluconazole 100 Mg Tablet) 200 mg PO DAILY ELMO Stop: 06/15/24 09:59 Last Admin: 06/15/24 08:47 Dose: 200 mg Hydroxyzine HCl (Hydroxyzine Hcl 25 Mg Tablet) 25 mg PO Q6H PRN PRN Reason: Anxiety Last Admin: 06/14/24 03:11 Dose: 25 mg Lactulose (Lactulose 20 Gm/30 Ml Solution) 40 gm PO DAILY [facility] Last Admin: 06/15/24 08:58 Dose: Not Given Loperamide HCl (Loperamide Hcl 2 Mg Capsule) 2 mg PO Q4H PRN PRN Reason: Diarrhea Magnesium Hydroxide (Milk Of Magnesia 30 Ml Oral.Susp) 30 ml PO DAILY PRN PRN Reason: Constipation Last Admin: 06/04/24 05:22 Dose: 30 ml Multi-Ingred Cream/Lotion/Oil/Oint (Mineral Oil/Petrolatum,White 106 Gm Tube) 1 appl TOPICAL BID PRN; Protocol PRN Reason: Dry Skin Last Admin: 06/13/24 21:44 Dose: 1 appl Patient Own (Belbuca (75mcg Buccal Films)) 1 each PO BID ELMO Last Admin: 06/15/24 08:48 Dose: 1 each Ondansetron HCl (Ondansetron Odt 4 Mg Tab.Rapdis) 4 mg TRANSLINGU Q6H PRN PRN Reason: Nausea and Vomiting Last Admin: 06/06/24 17:34 Dose: 4 mg Polyethylene Glycol (Polyethylene Glycol 3350 17 Gm Powd.Pack) 17 gm PO BID [facility] Last Admin: 06/15/24 08:52 Dose: Not Given Quetiapine Fumarate (Quetiapine Fumarate 50 Mg Tablet) 50 mg PO BEDTIME ELMO Last Admin: 06/14/24 21:10 Dose: 50 mg Senna/Docusate Sodium (Sennosides/Docusate Sodium Tablet) 2 tab PO BID [facility] Last Admin: 06/15/24 08:52 Dose: Not Given Simethicone (Simethicone 80 Mg Tab.Chew) 160 mg PO BID PRN PRN Reason: bloating/gas Last Admin: 06/07/24 11:06 Dose: 160 mg Tamsulosin HCl (Tamsulosin Hcl 0.4 Mg Capsule) 0.4 mg PO BEDTIME [facility] Last Admin: 06/14/24 21:10 Dose: 0.4 mg Allergies Allergies Allergy/AdvReac Type Severity Reaction Status Date / Time azithromycin Allergy Itching Verified 05/25/24 19:31 levofloxacin [From Levaquin] Allergy Nightmare Verified 05/25/24 19:31 nitrofurantoin Allergy Itching Verified 05/25/24 19:31 [From Macrodantin] Assessment & Plan Assessment & Plan (1) MDD (major depressive disorder), recurrent episode, moderate: Status: Acute Code(s): F33.1 - Major depressive disorder, recurrent, moderate (2) PTSD (post-traumatic stress disorder): Status: Acute Code(s): F43.10 - Post-traumatic stress disorder, unspecified (3) Osteogenesis imperfecta: Status: Acute Code(s): Q78.0 - Osteogenesis imperfecta (4) Jennifer-Danlos disease: Status: Acute Code(s): Q79.60 - Jennifer-Danlos syndrome, unspecified (5) Chronic pain syndrome: Status: Acute Code(s): G89.4 - Chronic pain syndrome (6) Indwelling Van catheter present: Status: Acute Code(s): Z97.8 - Presence of other specified devices (7) Urinary retention: Status: Acute Code(s): R33.9 - Retention of urine, unspecified (8) Voiding dysfunction: Status: Acute Code(s): N39.8 - Other specified disorders of urinary system Plan HPI: Patient is a 39-year-old female with history of Jennifer Danlos syndrome, osteogenesis imperfecta, myofascial pain syndrome, migraines, juvenile osteoporosis, asthma, and mood disorder with history of rectocele, vaginal mesh surgery, urinary retention requiring Van catheterization, which was recently restarted. P atient?presented?to?[facility]?on?924?following?intentional?overdose?on?muscle?rel axers.??Patient?lujan mary?was?immediately?transferred?to?medical?floor?for?urinary?retention;?she?stab ilized?there?and?was?discharged.?? She?presents?again?for?overdose On?gabapentin?and?trazodone,?Which?she?asserts?was?not?intentional (though later admits it was),?saying?she?just?wanted?to?sleep?and?get?relief?from?chronic?pain H owever?she?agrees?it?was?impulsive?and?unsafe.??Patient?currently?denies?any?SI. ??She?reports?howeve r?that?life?has?been?very?difficultff?pain?medications,?having?been?prescribed?o pioids?consistently?for?the?past?24?years,? as?well?as?Ativan.??Patient?agrees?she?needs Help?stabilizing?and?coping. Relevant Medical/psych History: Patient was on opiates scheduled for 24 years to manage chronic medical comorbidities, resulting in hx of multiple fractures/falls and subsequent chronic pain. Pt denies any hx of substance abuse, including cannabis. She did screen positive for Fentanyl at first admission in October 2024 but is adamant she's never used it in her life and no quantitative labs done (leaving Fentanyl use inconclusive). Patients long-time physician of [address] Brigido Dietrich retired and new PCP tapered her off and discontinued all opioid pain management (also tapered and dc'd ativan). Patient reports she has been in constant pain and discomfort since then and has felt very frustrated and challenged to enjoy life, sometimes challenging her desire to live. Discussed?case?with?EXTERMINATOR Vianey Dunaway from pain management clinic: pt seen on 05/24. EXTERMINATOR Gume agrees that patients medical comorbidities and subsequent chronic pain syndrome are commonly treated with opioid pain management. She recommends either Butrans patch or preferably Belbucha films (a form of Buprenorphin and titrating it to 150mg BID). Pt is also appropriate to get other nerve blocking treatments at pain clinic who will f/u with pt. Tone Regulator spoke with patient's PCP Dr. Rubio at [facility] Dr. Rubio reports concurs that patient has Osteogenesis imprefecta, Ehlos Danlos Pt was on opioids for 24 years with prior PCP. With [facility] she was on Oxycodine 30mg QID and Oxycontin 30mg daily. In Sep 2023 pt was admitted to [facility] for concern for overdose. Additionally, there were other concerns including that [facility] notes referenced that patient reported being on a Fentanyl patch, which this provider had never prescribed. Additionally, there was hx of patient needing refills early and a report that her mother had used some of her medications. Also patient had significant weight loss which provider was concerned might have contributed to possible accidental overdose. Because of these concerns provider, clinic repeatedly called patient to come in and discuss pain management and reportedly reached out to her from October until January however patient did not respond or come in for appointments, having missed several. Provider reports that because of lack of communication and ongoing concern that was never addressed, Provider felt it was necessary to taper patient off pain medication which was started in January; patient was also tapered off Ativan. Provider agrees that patient does have significant medical history that is commonly treated with chronic pain medication. Tone Regulator discussed options with them and Dr. Rubio agrees that starting patient on a buprenorphine product is an acceptable alternative to oxycodone. Vraylar since depressed and hx of manic-esque IMPRESSION: Patient's?depression?and?SI?seem?to?have significant?situational component?as?she?is?No?longer?receiving?pain?management?for?severe,?chronic?pain . P atient?has?no?known?history?of?substance?abuse.??Although?she?did?screen?positiv e?for?fentanyl (on?10/27/2023 and?05/18/2024), No?quantitative?analysis?was?done. ?This?mean that?fentanyl?screen?could?very?well?be?a?false-positive?result (which is not uncommon). Medical?decision?should?not?be?based?on?only?a?positive?screen?for?fentanyl. Patient does struggle with SI and with her chronic?pain?And?poor?support?will?likely?continue?to?produce?mood?instability.? ?Treatment?plan?will?include?typewriter assembler/team?discussion?with Outpatient?PCP?regarding?plan?for?treatment. Hospital course: 06/05: Continue current regimen and plans 06/06. Continue current plans and regimen. Loperamide was put on hold. Started on simethicone by hospitalist. No indications of GI bleeding currently. -seen by GI: C/o constipation and worsening abdominal distension. Will order CT A/P with IV/PO contrast to assess for SBO/ileus though passage of gas and small amount of stool argues against complete obstruction; however she is at risk given multiple surgeries. If no obstruction will order bowel regimen to address constipation. Continue Van, Urology following. 06/07 Patient reports that she is depressed. She apologized for not being more forthcoming earlier on in says it took her awhile to admitted to herself but she does not want to be in this world anymore... And has a plan to jump in front of a train on discharge. Patient also reports that overdose on trazodone/gabapentin was actually an intentional suicide attempt. She reports a constant deluge of self-deprecating thoughts which include that she is worthless, discussed in, and fat. Tone Regulator reviewed patient's history of anorexia and patient reports she sees herself as fat every day and eats very little (history of anorexia since 14 years old; was at brought up oral for a month with a feeding tube; she understands that this is a significant cause of her chronic constipation). Despite her SI, patient does want help getting better agrees to try antidepressant medication; typewriter assembler reviewed options and risks/side effects and patient with Vraylar. Also discussed pain medication management and patient agrees with Belbuca which she has heard of; she also agrees to non opioid pain management and will follow-up with pain management Clinic here at [facility]. Discussed relationship with her mother and she does not SA think her mother struggles with drug addiction but has caught her trying to get into her room, which patient keeps locked, looking for her medications which she has taken in the past. Patient said she reported this to her PCP. Patient does have history of being prescribed fentanyl patch however she did not like them and weaned herself off of them; set had some left over 06/08 Patient remains depressed with suicidal thinking however is trying to be hopeful and has tolerated Vraylar and says will continue, with increased dose; grateful for help getting Belbuca through prior authorization. -Discussed case with urology who recommends remaining with indwelling Van since failed voiding attempt on 06/03; will continue to follow -pt reported and nurse corroborated that Van bag containing urine was blood- tinged; discussed with Urologist, deemed likely micro trauma, and to keep van in place; recently failed voiding trial on 06/03 06/09 Patient reports she remains depressed, with SI. Patient also reports she had a very difficult time sleeping last night feeling very upset following a conversation she had on the phone with her mother. Patient expressed to her mother she is feeling hurt that her mom has not visited or called throughout her admission, even on patient's birthday; she says her mom was on apologetic. Patient also challenged her mom regarding her mom's past comment that patient could burn in hell with her father (who 2 years ago); mom remained unapologetic. Patient tells typewriter assembler she has no idea why her mom said this other than that her mom is crazy... Subsequently patient reports that throughout the night, she had racing thoughts and no sleep. Discussed medications and patient and pt is eager to try Belbuca Films for pain management, available today dc'd gabapentin; pt said has never helped for pain or anxiety Adding clonidine at bedtime to help w/ sleep, anxiety 06/10 patient reports that Belbuca is helping with pain Patient remains very depressed and continues to have suicidal thoughts, saying she wants to end her life when she leaves the hospital. Patient Says I do not understand myself.. And laments she is gone most of her life without any suicidal ideation and only started this past September. Patient shared about some other reasons that it might be occurring and agrees that she still mourning the loss of her father who was her confidante; dealing with chronic pain having been off pain medications for several months and the ongoing struggles in her relationship with her mother and brother whom she feels are bullying; trying to come to terms with the fact that her mother simply isn't going to be the kind of mother she wishes she had. Patient agrees to medication management. 06/13 still very depressed with SI. Sleeping better however which is helpful and pain medications are also helpful. Patient agrees to increasing Vraylar; agrees to behavioral activation and attending groups. Despite ongoing thoughts about self-harm and ending her life when she is discharge, patient is also future oriented and says she would like to find a new place to live separate from her mother and brother. Asks for help going about that. 06/14 pt remains depressed, positive for SI with a plan but also future oriented talking about changing her living situation. Pt is engaged in treatment, trying to process her suicidal feelings and trying to be hopeful it will resolve. Agrees to adding Wellbutrin. -will likely add Wellbutrin; however, will probably keep Vraylar (maybe at lower dose) since pt has hx of manic-esque episodes (thought not formally diagnosed with bipolar as episode had several contributory factors) 06/15 remains depressed but processing feelings, doing worksheets, talking about her mother. Pt very anxious. -may increase wellbutrin for depression -considered starting Clonazepam 0.5mg BID; pt used to be on as much as 5mg of ativan daily; was weened off so hesitant to restart benzo's; PLAN: CV? One-to-one?since?indwelling?Van Continue WEllbutrin XL 150mg for continued depression (pt adamant about not starting anti-depressant with risk of wt gain) Continue Vraylar 4.5 mg daily (Vraylar chosen since patient has depression but also history of manic type behaviors, possibly manic episode with some delusions and AH) Continue Belbuca 75mcg films BID for pain management (history of fentanyl patch, morphine, oxycodone, OxyContin) clonidine prn Patient educated on: diagnosis, medication risk/benefits, therapeutic strategies and medical condition Reason for continued inpatient stay Substantial Risk for: rapid decompensation Time Spent With Patient Time: Total time managing care of this patient today ____ minutes.
[2024-06-15] MEDS: buPROPion HCl XL 150 MG TAB.ER.24H PO (10:53)
[2024-06-15] MEDS: hydrOXYzine HCL 25 MG TABLET PO ×2 (14:26→22:40)
[2024-06-15] MEDS: Sennosides/Docusate Sodium TABLET 2 TAB PO (22:40)
[2024-06-15] MEDS: QUEtiapine Fumarate 50 MG TABLET PO (22:40)
[2024-06-15] MEDS: Tamsulosin HCL 0.4 MG CAPSULE PO (22:40)
[2024-06-15] MEDS: bisacodyL 5 MG TABLET.DR 10 MG PO (22:40)
[2024-06-16 02:50] VITALS: BP 141/93
[2024-06-16] MEDS: cloNIDine HCL 0.1 MG TABLET PO ×4 (02:50→20:05)
--- NOTE | 2024-06-16 04:22 | PC.NURSE ---
At approximately 2200, indwelling urine catheter was emptied of 650 mls. of foul smelling, tea colored urine.
[2024-06-16 07:00] VITALS: BMI 17.2
[2024-06-16 08:00] VITALS: BP 119/73; PULSE 65; RESP 18; TEMP 36.9; O2SAT 99
[2024-06-16] MEDS: Cariprazine HCl 1.5 MG CAPSULE 4.5 MG PO (08:10)
[2024-06-16] MEDS: Ascorbic Acid 500 MG TABLET 1000 MG PO (08:11)
[2024-06-16] MEDS: buPROPion HCl XL 150 MG TAB.ER.24H PO (08:12)
[2024-06-16] MEDS: BUPRENORPHINE 75 MCG 1 EACH PO ×2 (08:13→20:06)
[2024-06-16] MEDS: hydrOXYzine HCL 25 MG TABLET PO ×2 (08:56→18:29)
[2024-06-16] MEDS: Ondansetron ODT 4 MG TAB.RAPDIS TRANSLINGU (10:51)
--- NOTE | 2024-06-16 13:06 | P.PNPSI_ITS ---
Subjective Subjective Date of Service: 06/16/24 Reason For Visit: Sa Subjective Notes: Conditional Voluntary Interim History: Reviewed with Dr. Whittaker. Active on unit, social with peers. pt reports feeling anxious and depressed today; pt stated, my depression is still really bad. I don't understand why. I don't feel like I'm in reality; it feels like a movie but I know I'm here . Pt reports suicidal ideation with no plan while on the unit. denies HI/VH/AH. Medication Compliance: Yes Side effects from medications: No Review of Systems Review of Systems as noted in HPI Mental Status Exam Mental Status Exam Narrative: Pt is alert and oriented; behavior is cooperative and calm; patient in physical pain; dressed in hospital attire; mood is described as anxious and depressed ; eye contact appropriate; Speech is normal rate, volume and not pressured; thought process is organized and goal directed; Thought content is on tx; denies HI/VH/AH. Pt reports suicidal ideation with no plan while on unit. Diagnostics Vital Signs (24Hr): Vital Signs - 24 hr 06/15/24 16:23 06/15/24 20:00 06/15/24 20:32 Temperature 98.2 F Pulse Rate 68 Respiratory Rate 16 Blood Pressure 102/66 92/65 164/100 H Pulse Oximetry 98 Oxygen Delivery Method Room Air 06/16/24 02:50 06/16/24 08:00 Temperature 98.5 F Pulse Rate 65 Respiratory Rate 18 Blood Pressure 141/93 H 119/73 Pulse Oximetry 99 Oxygen Delivery Method Room Air BMI result Body Mass Index 16.9 Labs 06/06/24 08:20 06/06/24 08:20 Imaging Radiology Impressions: ITS Impressions KUB X-Ray 06/03/24 19:55 IMPRESSION: Increased amount of stool in the colon suggesting constipation. Please correlate with clinical presentation. Electronically signed by: Oneida Pham MD 06/04/2024 07:31 AM EDT Renal Ultrasound 06/04/24 14:49 IMPRESSION: No ultrasound evidence of renal obstruction or hydronephrosis. Limited visualization of the left kidney obscured by bowel gas, exam otherwise unremarkable. Electronically signed by: Oneida Pham MD 06/05/2024 12:56 PM EDT Abdomen/Pelvis CT 06/04/24 18:33 IMPRESSION: Severe constipation. Otherwise unremarkable CT abdomen and pelvis. Fleischner guidelines were followed. Electronically signed by: Deyvi Collins MD 06/04/2024 07:05 PM EDT Medications Medications Current Medications Acetaminophen (Acetaminophen 325 Mg Tablet) 650 mg PO Q6H PRN PRN Reason: Headache/Pain Mild Scale (1-3) Last Admin: 06/15/24 06:42 Dose: 650 mg Al Hydroxide/Mg Hydroxide (Magnesium Hydrox/Alum Hydrox 30 Ml Oral.Susp) 30 ml PO Q6H PRN PRN Reason: Heartburn/Nausea Albuterol Sulfate (Albuterol Sulfate 90 Mcg 8 Gm Inhaler) 2 puff INHALE QID PRN PRN Reason: Shortness Of Breath Ascorbic Acid (Ascorbic Acid 500 Mg Tablet) 1,000 mg PO DAILY ELMO Last Admin: 06/16/24 08:11 Dose: 1,000 mg Bisacodyl (Bisacodyl 5 Mg Tablet.Dr) 10 mg PO BEDTIME ELMO Last Admin: 06/15/24 22:40 Dose: 10 mg Bupropion HCl (Bupropion Hcl Xl 150 Mg Tab.Er.24h) 150 mg PO DAILY ELMO Last Admin: 06/16/24 08:12 Dose: 150 mg Cariprazine (Cariprazine Hcl 1.5 Mg Capsule) 4.5 mg PO DAILY ELMO Last Admin: 06/16/24 08:10 Dose: 4.5 mg Clonidine HCl (Clonidine Hcl 0.1 Mg Tablet) 0.1 mg PO BEDTIME ELMO; Protocol Last Admin: 06/15/24 20:32 Dose: 0.1 mg Clonidine HCl (Clonidine Hcl 0.1 Mg Tablet) 0.1 mg PO Q4H PRN; Protocol PRN Reason: anxiety Last Admin: 06/16/24 08:56 Dose: 0.1 mg Hydroxyzine HCl (Hydroxyzine Hcl 25 Mg Tablet) 25 mg PO Q6H PRN PRN Reason: Anxiety Last Admin: 06/16/24 08:56 Dose: 25 mg Lactulose (Lactulose 20 Gm/30 Ml Solution) 40 gm PO DAILY ELMO Last Admin: 06/16/24 08:12 Dose: Not Given Loperamide HCl (Loperamide Hcl 2 Mg Capsule) 2 mg PO Q4H PRN PRN Reason: Diarrhea Magnesium Hydroxide (Milk Of Magnesia 30 Ml Oral.Susp) 30 ml PO DAILY PRN PRN Reason: Constipation Last Admin: 06/04/24 05:22 Dose: 30 ml Multi-Ingred Cream/Lotion/Oil/Oint (Mineral Oil/Petrolatum,White 106 Gm Tube) 1 appl TOPICAL BID PRN; Protocol PRN Reason: Dry Skin Last Admin: 06/13/24 21:44 Dose: 1 appl Patient Own (Belbuca (75mcg Buccal Films)) 1 each PO BID ELMO Last Admin: 06/16/24 08:13 Dose: 1 each Ondansetron HCl (Ondansetron Odt 4 Mg Tab.Rapdis) 4 mg TRANSLINGU Q6H PRN PRN Reason: Nausea and Vomiting Last Admin: 06/16/24 10:51 Dose: 4 mg Polyethylene Glycol (Polyethylene Glycol 3350 17 Gm Powd.Pack) 17 gm PO BID [facility] Last Admin: 06/16/24 08:12 Dose: Not Given Quetiapine Fumarate (Quetiapine Fumarate 50 Mg Tablet) 50 mg PO BEDTIME [facility] Last Admin: 06/15/24 22:40 Dose: 50 mg Senna/Docusate Sodium (Sennosides/Docusate Sodium Tablet) 2 tab PO BID [facility] Last Admin: 06/16/24 08:12 Dose: Not Given Simethicone (Simethicone 80 Mg Tab.Chew) 160 mg PO BID PRN PRN Reason: bloating/gas Last Admin: 06/07/24 11:06 Dose: 160 mg Tamsulosin HCl (Tamsulosin Hcl 0.4 Mg Capsule) 0.4 mg PO BEDTIME [facility] Last Admin: 06/15/24 22:40 Dose: 0.4 mg Allergies Allergies Allergy/AdvReac Type Severity Reaction Status Date / Time azithromycin Allergy Itching Verified 05/25/24 19:31 levofloxacin [From Levaquin] Allergy Nightmare Verified 05/25/24 19:31 nitrofurantoin Allergy Itching Verified 05/25/24 19:31 [From Macrodantin] Assessment & Plan Assessment & Plan (1) MDD (major depressive disorder), recurrent episode, moderate: Status: Acute Code(s): F33.1 - Major depressive disorder, recurrent, moderate (2) PTSD (post-traumatic stress disorder): Status: Acute Code(s): F43.10 - Post-traumatic stress disorder, unspecified (3) Osteogenesis imperfecta: Status: Acute Code(s): Q78.0 - Osteogenesis imperfecta (4) Jennifer-Danlos disease: Status: Acute Code(s): Q79.60 - Jennifer-Danlos syndrome, unspecified (5) Chronic pain syndrome: Status: Acute Code(s): G89.4 - Chronic pain syndrome (6) Indwelling Van catheter present: Status: Acute Code(s): Z97.8 - Presence of other specified devices (7) Urinary retention: Status: Acute Code(s): R33.9 - Retention of urine, unspecified (8) Voiding dysfunction: Status: Acute Code(s): N39.8 - Other specified disorders of urinary system Plan HPI: Patient is a 39-year-old female with history of Jennifer Danlos syndrome, osteogenesis imperfecta, myofascial pain syndrome, migraines, juvenile osteoporosis, asthma, and mood disorder with history of rectocele, vaginal mesh surgery, urinary retention requiring Van catheterization, which was recently restarted. P atient?presented?to?[place]?on?09?following?intentional?overdose?on?muscle?rel axers.??Patient?lujan mary?was?immediately?transferred?to?medical?floor?for?urinary?retention;?she?stab ilized?there?and?was?discharged.?? She?presents?again?for?overdose On?gabapentin?and?trazodone,?Which?she?asserts?was?not?intentional (though later admits it was),?saying?she?just?wanted?to?sleep?and?get?relief?from?chronic?pain H owever?she?agrees?it?was?impulsive?and?unsafe.??Patient?currently?denies?any?SI. ??She?reports?howeve r?that?life?has?been?very?difficultff?pain?medications,?having?been?prescribed?o pioids?consistently?for?the?past?24?years,? as?well?as?Ativan.??Patient?agrees?she?needs Help?stabilizing?and?coping. Relevant Medical/psych History: Patient was on opiates scheduled for 24 years to manage chronic medical comorbidities, resulting in hx of multiple fractures/falls and subsequent chronic pain. Pt denies any hx of substance abuse, including cannabis. She did screen positive for Fentanyl at first admission in October 2024 but is adamant she's never used it in her life and no quantitative labs done (leaving Fentanyl use inconclusive). Patients long-time physician of [address] Brigido Dietrich retired and new PCP tapered her off and discontinued all opioid pain management (also tapered and dc'd ativan). Patient reports she has been in constant pain and discomfort since then and has felt very frustrated and challenged to enjoy life, sometimes challenging her desire to live. Discussed?case?with?FORM BLOCK MAKER Vianey Dunaway from pain management clinic: pt seen on 05/24. FORM BLOCK MAKER Gume agrees that patients medical comorbidities and subsequent chronic pain syndrome are commonly treated with opioid pain management. She recommends either Butrans patch or preferably Belbucha films (a form of Buprenorphin and titrating it to 150mg BID). Pt is also appropriate to get other nerve blocking treatments at pain clinic who will f/u with pt. Instrument Lens Inspector spoke with patient's PCP Dr. Rubio at [facility] Dr. Rubio reports concurs that patient has Osteogenesis imprefecta, [place] Mendozas Pt was on opioids for 24 years with prior PCP. With [facility] she was on Oxycodine 30mg QID and Oxycontin 30mg daily. In Sep 2023 pt was admitted to [facility] for concern for overdose. Additionally, there were other concerns including that [facility] notes referenced that patient reported being on a Fentanyl patch, which this provider had never prescribed. Additionally, there was hx of patient needing refills early and a report that her mother had used some of her medications. Also patient had significant weight loss which provider was concerned might have contributed to possible accidental overdose. Because of these concerns provider, clinic repeatedly called patient to come in and discuss pain management and reportedly reached out to her from October until January however patient did not respond or come in for appointments, having missed several. Provider reports that because of lack of communication and ongoing concern that was never addressed, Provider felt it was necessary to taper patient off pain medication which was started in January; patient was also tapered off Ativan. Provider agrees that patient does have significant medical history that is commonly treated with chronic pain medication. Instrument Lens Inspector discussed options with them and Dr. Rubio agrees that starting patient on a buprenorphine product is an acceptable alternative to oxycodone. Vraylar since depressed and hx of manic-esque IMPRESSION: Patient's?depression?and?SI?seem?to?have significant?situational component?as?she?is?No?longer?receiving?pain?management?for?severe,?chronic?pain . P atient?has?no?known?history?of?substance?abuse.??Although?she?did?screen?positiv e?for?fentanyl (on?10/27/2023 and?05/18/2024), No?quantitative?analysis?was?done. ?This?mean that?fentanyl?screen?could?very?well?be?a?false-positive?result (which is not uncommon). Medical?decision?should?not?be?based?on?only?a?positive?screen?for?fentanyl. Patient does struggle with SI and with her chronic?pain?And?poor?support?will?likely?continue?to?produce?mood?instability.? ?Treatment?plan?will?include?process description writer/team?discussion?with Outpatient?PCP?regarding?plan?for?treatment. Hospital course: 06/05: Continue current regimen and plans 06/06. Continue current plans and regimen. Loperamide was put on hold. Started on simethicone by hospitalist. No indications of GI bleeding currently. -seen by GI: C/o constipation and worsening abdominal distension. Will order CT A/P with IV/PO contrast to assess for SBO/ileus though passage of gas and small amount of stool argues against complete obstruction; however she is at risk given multiple surgeries. If no obstruction will order bowel regimen to address constipation. Continue Van, Urology following. 06/07 Patient reports that she is depressed. She apologized for not being more forthcoming earlier on in says it took her awhile to admitted to herself but she does not want to be in this world anymore... And has a plan to jump in front of a train on discharge. Patient also reports that overdose on trazodone/gabapentin was actually an intentional suicide attempt. She reports a constant deluge of self-deprecating thoughts which include that she is worthless, discussed in, and fat. Instrument Lens Inspector reviewed patient's history of anorexia and patient reports she sees herself as fat every day and eats very little (history of anorexia since 14 years old; was at brought up oral for a month with a feeding tube; she understands that this is a significant cause of her chronic constipation). Despite her SI, patient does want help getting better agrees to try antidepressant medication; process description writer reviewed options and risks/side effects and patient with Vraylar. Also discussed pain medication management and patient agrees with Belbuca which she has heard of; she also agrees to non opioid pain management and will follow-up with pain management Clinic here at [place]. Discussed relationship with her mother and she does not SA think her mother struggles with drug addiction but has caught her trying to get into her room, which patient keeps locked, looking for her medications which she has taken in the past. Patient said she reported this to her PCP. Patient does have history of being prescribed fentanyl patch however she did not like them and weaned herself off of them; set had some left over 06/08 Patient remains depressed with suicidal thinking however is trying to be hopeful and has tolerated Vraylar and says will continue, with increased dose; grateful for help getting Belbuca through prior authorization. -Discussed case with urology who recommends remaining with indwelling Van since failed voiding attempt on 06/03; will continue to follow -pt reported and nurse corroborated that Van bag containing urine was blood- tinged; discussed with Urologist, deemed likely micro trauma, and to keep van in place; recently failed voiding trial on 06/03 06/09 Patient reports she remains depressed, with SI. Patient also reports she had a very difficult time sleeping last night feeling very upset following a conversation she had on the phone with her mother. Patient expressed to her mother she is feeling hurt that her mom has not visited or called throughout her admission, even on patient's birthday; she says her mom was on apologetic. Patient also challenged her mom regarding her mom's past comment that patient could burn in hell with her father (who 2 years ago); mom remained unapologetic. Patient tells process description writer she has no idea why her mom said this other than that her mom is crazy... Subsequently patient reports that throughout the night, she had racing thoughts and no sleep. Discussed medications and patient and pt is eager to try Belbuca Films for pain management, available today dc'd gabapentin; pt said has never helped for pain or anxiety Adding clonidine at bedtime to help w/ sleep, anxiety 06/10 patient reports that Belbuca is helping with pain Patient remains very depressed and continues to have suicidal thoughts, saying she wants to end her life when she leaves the hospital. Patient Says I do not understand myself.. And laments she is gone most of her life without any suicidal ideation and only started this past September. Patient shared about some other reasons that it might be occurring and agrees that she still mourning the loss of her father who was her confidante; dealing with chronic pain having been off pain medications for several months and the ongoing struggles in her relationship with her mother and brother whom she feels are bullying; trying to come to terms with the fact that her mother simply isn't going to be the kind of mother she wishes she had. Patient agrees to medication management. 06/13 still very depressed with SI. Sleeping better however which is helpful and pain medications are also helpful. Patient agrees to increasing Vraylar; agrees to behavioral activation and attending groups. Despite ongoing thoughts about self-harm and ending her life when she is discharge, patient is also future oriented and says she would like to find a new place to live separate from her mother and brother. Asks for help going about that. 06/14 pt remains depressed, positive for SI with a plan but also future oriented talking about changing her living situation. Pt is engaged in treatment, trying to process her suicidal feelings and trying to be hopeful it will resolve. Agrees to adding Wellbutrin. -will likely add Wellbutrin; however, will probably keep Vraylar (maybe at lower dose) since pt has hx of manic-esque episodes (thought not formally diagnosed with bipolar as episode had several contributory factors) 06/15 remains depressed but processing feelings, doing worksheets, talking about her mother. Pt very anxious. -may increase wellbutrin for depression -considered starting Clonazepam 0.5mg BID; pt used to be on as much as 5mg of ativan daily; was weened off so hesitant to restart benzo's; 06/16: continue current tx plan. PLAN: CV? One-to-one?since?indwelling?Van Continue WEllbutrin XL 150mg for continued depression (pt adamant about not starting anti-depressant with risk of wt gain) Continue Vraylar 4.5 mg daily (Vraylar chosen since patient has depression but also history of manic type behaviors, possibly manic episode with some delusions and AH) Continue Belbuca 75mcg films BID for pain management (history of fentanyl patch, morphine, oxycodone, OxyContin) clonidine prn Patient educated on: diagnosis and medication risk/benefits Reason for continued inpatient stay Substantial Risk for: harm to self and med/psych decompensation Time Spent With Patient Time: Total time managing care of this patient today _20___ minutes.
[2024-06-16 15:18] VITALS: BP 100/69
[2024-06-16 20:00] VITALS: BP 126/79; PULSE 67; RESP 16; TEMP 36.6; O2SAT 94
[2024-06-16] MEDS: QUEtiapine Fumarate 50 MG TABLET PO (20:05)
[2024-06-16] MEDS: Tamsulosin HCL 0.4 MG CAPSULE PO (20:05)
[2024-06-17] VITALS (7 sets, daily range): BP systolic 114–144; BP diastolic 73–87; PULSE 65–80; RESP 15; TEMP 36.4; O2SAT 97–99
[2024-06-17] MEDS: hydrOXYzine HCL 25 MG TABLET PO ×3 (02:28→17:53)
[2024-06-17] MEDS: cloNIDine HCL 0.1 MG TABLET PO ×4 (02:28→17:53)
[2024-06-17] MEDS: BUPRENORPHINE 75 MCG 1 EACH PO ×2 (09:16→22:26)
[2024-06-17] MEDS: Sennosides/Docusate Sodium TABLET 2 TAB PO ×2 (09:17→22:10)
[2024-06-17] MEDS: Ascorbic Acid 500 MG TABLET 1000 MG PO (09:17)
[2024-06-17] MEDS: Cariprazine HCl 1.5 MG CAPSULE 4.5 MG PO (09:17)
[2024-06-17] MEDS: buPROPion HCl XL 150 MG TAB.ER.24H PO (09:18)
--- NOTE | 2024-06-17 09:58 | HO.PSYCHPN ---
Subjective Subjective Date of Service: 06/17/24 Reason For Visit: Sa Interim History: Met with patient; discussed with team Patient feeling upset, dealing with feelings about relationships. She identified her Oldest brother Edward as supportive and a good person for whom inspector automatic typewriter could call for collateral Patient said she thinks she was starting to feel better on Wellbutrin and agrees to increase it. She has continued anxiety however she says she does not want any benzodiazepines. still intermittently suicdal but just trying to get out of it; says she is pushing herself to being around people more which is helpful Mental Status Exam Mental Status Exam Narrative: Pt is alert and oriented; behavior is cooperative, friendly and calm; patient in physical pain; cachectic; dressed in hospital attire with unkempt hair but adequate hygiene; mood is described as depressed and affect congruent, downcast; eye contact appropriate; Speech is a little slowed, a little soft, normal prosody and not pressured; psychomotor retardation present; thought process is organized and goal directed; Thought content is on feeling defeated, in despair; also on tx; otherwise pertinent to relevant topics and without any delusional content, paranoid ideations or grandiosity; positive for SI; no HI. There is no evidence of perceptual disturbance. Patients insight and judgment impaired Diagnostics Vital Signs (24Hr): Vital Signs - 24 hr 06/16/24 15:18 06/16/24 20:00 06/17/24 02:28 Temperature 97.9 F Pulse Rate 67 Respiratory Rate 16 Blood Pressure 100/69 126/79 114/87 Pulse Oximetry 94 Oxygen Delivery Method Room Air 06/17/24 07:17 Temperature Pulse Rate Respiratory Rate Blood Pressure 129/79 Pulse Oximetry Oxygen Delivery Method BMI result Body Mass Index 17.2 Labs 06/06/24 08:20 06/06/24 08:20 Imaging Radiology Impressions: ITS Impressions KUB X-Ray 06/03/24 19:55 IMPRESSION: Increased amount of stool in the colon suggesting constipation. Please correlate with clinical presentation. Electronically signed by: Oneida Pham MD 06/04/2024 07:31 AM EDT Renal Ultrasound 06/04/24 14:49 IMPRESSION: No ultrasound evidence of renal obstruction or hydronephrosis. Limited visualization of the left kidney obscured by bowel gas, exam otherwise unremarkable. Electronically signed by: Oneida Pham MD 06/05/2024 12:56 PM EDT RP Abdomen/Pelvis CT 06/04/24 18:33 IMPRESSION: Severe constipation. Otherwise unremarkable CT abdomen and pelvis. Fleischner guidelines were followed. Electronically signed by: Deyvi Collins MD 06/04/2024 07:05 PM EDT RP Medications Medications Current Medications Acetaminophen (Acetaminophen 325 Mg Tablet) 650 mg PO Q6H PRN PRN Reason: Headache/Pain Mild Scale (1-3) Last Admin: 06/15/24 06:42 Dose: 650 mg Al Hydroxide/Mg Hydroxide (Magnesium Hydrox/Alum Hydrox 30 Ml Oral.Susp) 30 ml PO Q6H PRN PRN Reason: Heartburn/Nausea Albuterol Sulfate (Albuterol Sulfate 90 Mcg 8 Gm Inhaler) 2 puff INHALE QID PRN PRN Reason: Shortness Of Breath Ascorbic Acid (Ascorbic Acid 500 Mg Tablet) 1,000 mg PO DAILY ELMO Last Admin: 06/17/24 09:17 Dose: 1,000 mg Bisacodyl (Bisacodyl 5 Mg Tablet.Dr) 10 mg PO BEDTIME ELMO Last Admin: 06/16/24 22:26 Dose: Not Given Bupropion HCl (Bupropion Hcl Xl 150 Mg Tab.Er.24h) 150 mg PO DAILY ELMO Last Admin: 06/17/24 09:18 Dose: 150 mg Cariprazine (Cariprazine Hcl 1.5 Mg Capsule) 4.5 mg PO DAILY ELMO Last Admin: 06/17/24 09:17 Dose: 4.5 mg Clonidine HCl (Clonidine Hcl 0.1 Mg Tablet) 0.1 mg PO BEDTIME ELMO; Protocol Last Admin: 06/16/24 20:05 Dose: 0.1 mg Clonidine HCl (Clonidine Hcl 0.1 Mg Tablet) 0.1 mg PO Q4H PRN; Protocol PRN Reason: anxiety Last Admin: 06/17/24 07:17 Dose: 0.1 mg Hydroxyzine HCl (Hydroxyzine Hcl 25 Mg Tablet) 25 mg PO Q6H PRN PRN Reason: Anxiety Last Admin: 06/17/24 02:28 Dose: 25 mg Lactulose (Lactulose 20 Gm/30 Ml Solution) 40 gm PO DAILY ELMO Last Admin: 06/17/24 09:20 Dose: Not Given Loperamide HCl (Loperamide Hcl 2 Mg Capsule) 2 mg PO Q4H PRN PRN Reason: Diarrhea Magnesium Hydroxide (Milk Of Magnesia 30 Ml Oral.Susp) 30 ml PO DAILY PRN PRN Reason: Constipation Last Admin: 06/04/24 05:22 Dose: 30 ml Multi-Ingred Cream/Lotion/Oil/Oint (Mineral Oil/Petrolatum,White 106 Gm Tube) 1 appl TOPICAL BID PRN; Protocol PRN Reason: Dry Skin Last Admin: 06/13/24 21:44 Dose: 1 appl Patient Own (Belbuca (75mcg Buccal Films)) 1 each PO BID ELMO Last Admin: 06/17/24 09:16 Dose: 1 each Ondansetron HCl (Ondansetron Odt 4 Mg Tab.Rapdis) 4 mg TRANSLINGU Q6H PRN PRN Reason: Nausea and Vomiting Last Admin: 06/16/24 10:51 Dose: 4 mg Polyethylene Glycol (Polyethylene Glycol 3350 17 Gm Powd.Pack) 17 gm PO BID [facility] Last Admin: 06/17/24 09:20 Dose: Not Given Quetiapine Fumarate (Quetiapine Fumarate 50 Mg Tablet) 50 mg PO BEDTIME [facility] Last Admin: 06/16/24 20:05 Dose: 50 mg Senna/Docusate Sodium (Sennosides/Docusate Sodium Tablet) 2 tab PO BID [facility] Last Admin: 06/17/24 09:17 Dose: 2 tab Simethicone (Simethicone 80 Mg Tab.Chew) 160 mg PO BID PRN PRN Reason: bloating/gas Last Admin: 06/07/24 11:06 Dose: 160 mg Tamsulosin HCl (Tamsulosin Hcl 0.4 Mg Capsule) 0.4 mg PO BEDTIME [facility] Last Admin: 06/16/24 20:05 Dose: 0.4 mg Allergies Allergies Allergy/AdvReac Type Severity Reaction Status Date / Time azithromycin Allergy Itching Verified 05/25/24 19:31 levofloxacin [From Levaquin] Allergy Nightmare Verified 05/25/24 19:31 nitrofurantoin Allergy Itching Verified 05/25/24 19:31 [From Macrodantin] Assessment & Plan Assessment & Plan (1) MDD (major depressive disorder), recurrent episode, moderate: Status: Acute Code(s): F33.1 - Major depressive disorder, recurrent, moderate (2) PTSD (post-traumatic stress disorder): Status: Acute Code(s): F43.10 - Post-traumatic stress disorder, unspecified (3) Osteogenesis imperfecta: Status: Acute Code(s): Q78.0 - Osteogenesis imperfecta (4) Jennifer-Danlos disease: Status: Acute Code(s): Q79.60 - Jennifer-Danlos syndrome, unspecified (5) Chronic pain syndrome: Status: Acute Code(s): G89.4 - Chronic pain syndrome (6) Indwelling Van catheter present: Status: Acute Code(s): Z97.8 - Presence of other specified devices (7) Urinary retention: Status: Acute Code(s): R33.9 - Retention of urine, unspecified (8) Voiding dysfunction: Status: Acute Code(s): N39.8 - Other specified disorders of urinary system Plan HPI: Patient is a 39-year-old female with history of Jennifer Danlos syndrome, osteogenesis imperfecta, myofascial pain syndrome, migraines, juvenile osteoporosis, asthma, and mood disorder with history of rectocele, vaginal mesh surgery, urinary retention requiring Van catheterization, which was recently restarted. Patient?presented?to?[facility]?on?924?following?intentional?overdose?on?muscle?relaxers.??Patient?however?was?immediately?transferred?to?medical?floor?for?urinary?retention;?she?stabilized?there?and?was?discharged.?? She?presents?again?for?overdose On?gabapentin?and?trazodone,?Which?she?asserts?was?not?intentional (though later admits it was),?saying?she?just?wanted?to?sleep?and?get?relief?from?chronic?pain However?she?agrees?it?was?impulsive?and?unsafe.??Patient?currently?denies?any?SI.??She?reports?however?that?life?has?been?very?difficultff?pain?medications,?having?been?prescribed?opioids?consistently?for?the?past?24?years,? as?well?as?Ativan.??Patient?agrees?she?needs Help?stabilizing?and?coping. Relevant Medical/psych History: Patient was on opiates scheduled for 24 years to manage chronic medical comorbidities, resulting in hx of multiple fractures/falls and subsequent chronic pain. Pt denies any hx of substance abuse, including cannabis. She did screen positive for Fentanyl at first admission in October 2024 but is adamant she's never used it in her life and no quantitative labs done (leaving Fentanyl use inconclusive). Patients long-time physician of [address] Brigido Dietrich retired and new PCP tapered her off and discontinued all opioid pain management (also tapered and dc'd ativan). Patient reports she has been in constant pain and discomfort since then and has felt very frustrated and challenged to enjoy life, sometimes challenging her desire to live. Discussed?case?with?ASBESTOS CLOTH INSPECTOR Vianey Dunaway from pain management clinic: pt seen on 05/24. ASBESTOS CLOTH INSPECTOR Gume agrees that patients medical comorbidities and subsequent chronic pain syndrome are commonly treated with opioid pain management. She recommends either Butrans patch or preferably Belbucha films (a form of Buprenorphin and titrating it to 150mg BID). Pt is also appropriate to get other nerve blocking treatments at pain clinic who will f/u with pt. Agent Producer spoke with patient's PCP Dr. Rubio at [facility] Dr. Rubio reports concurs that patient has Osteogenesis imprefecta, Ehlos Danlos Pt was on opioids for 24 years with prior PCP. With [facility] she was on Oxycodine 30mg QID and Oxycontin 30mg daily. In Sep 2023 pt was admitted to [facility] for concern for overdose. Additionally, there were other concerns including that [facility] notes referenced that patient reported being on a Fentanyl patch, which this provider had never prescribed. Additionally, there was hx of patient needing refills early and a report that her mother had used some of her medications. Also patient had significant weight loss which provider was concerned might have contributed to possible accidental overdose. Because of these concerns provider, clinic repeatedly called patient to come in and discuss pain management and reportedly reached out to her from October until January however patient did not respond or come in for appointments, having missed several. Provider reports that because of lack of communication and ongoing concern that was never addressed, Provider felt it was necessary to taper patient off pain medication which was started in January; patient was also tapered off Ativan. Provider agrees that patient does have significant medical history that is commonly treated with chronic pain medication. Agent Producer discussed options with them and Dr. Rubio agrees that starting patient on a buprenorphine product is an acceptable alternative to oxycodone. Vraylar since depressed and hx of manic-esque IMPRESSION: Patient's?depression?and?SI?seem?to?have significant?situational component?as?she?is?No?longer?receiving?pain?management?for?severe,?chronic?pain. Patient?has?no?known?history?of?substance?abuse.??Although?she?did?screen?positive?for?fentanyl (on?10/27/2023 and?05/18/2024), No?quantitative?analysis?was?done. ?This?mean that?fentanyl?screen?could?very?well?be?a?false-positive?result (which is not uncommon). Medical?decision?should?not?be?based?on?only?a?positive?screen?for?fentanyl. Patient does struggle with SI and with her chronic?pain?And?poor?support?will?likely?continue?to?produce?mood?instability.??Treatment?plan?will?include?inspector automatic typewriter/team?discussion?with Outpatient?PCP?regarding?plan?for?treatment. Hospital course: 06/05: Continue current regimen and plans 06/06. Continue current plans and regimen. Loperamide was put on hold. Started on simethicone by hospitalist. No indications of GI bleeding currently. -seen by GI: C/o constipation and worsening abdominal distension. Will order CT A/P with IV/PO contrast to assess for SBO/ileus though passage of gas and small amount of stool argues against complete obstruction; however she is at risk given multiple surgeries. If no obstruction will order bowel regimen to address constipation. Continue Van, Urology following. 06/07 Patient reports that she is depressed. She apologized for not being more forthcoming earlier on in says it took her awhile to admitted to herself but she does not want to be in this world anymore... And has a plan to jump in front of a train on discharge. Patient also reports that overdose on trazodone/gabapentin was actually an intentional suicide attempt. She reports a constant deluge of self-deprecating thoughts which include that she is worthless, discussed in, and fat. Agent Producer reviewed patient's history of anorexia and patient reports she sees herself as fat every day and eats very little (history of anorexia since 14 years old; was at brought up oral for a month with a feeding tube; she understands that this is a significant cause of her chronic constipation). Despite her SI, patient does want help getting better agrees to try antidepressant medication; inspector automatic typewriter reviewed options and risks/side effects and patient with Vraylar. Also discussed pain medication management and patient agrees with Belbuca which she has heard of; she also agrees to non opioid pain management and will follow-up with pain management Clinic here at [facility]. Discussed relationship with her mother and she does not SA think her mother struggles with drug addiction but has caught her trying to get into her room, which patient keeps locked, looking for her medications which she has taken in the past. Patient said she reported this to her PCP. Patient does have history of being prescribed fentanyl patch however she did not like them and weaned herself off of them; set had some left over 06/08 Patient remains depressed with suicidal thinking however is trying to be hopeful and has tolerated Vraylar and says will continue, with increased dose; grateful for help getting Belbuca through prior authorization. -Discussed case with urology who recommends remaining with indwelling Van since failed voiding attempt on 06/03; will continue to follow -pt reported and nurse corroborated that Van bag containing urine was blood-tinged; discussed with Urologist, deemed likely micro trauma, and to keep van in place; recently failed voiding trial on 06/03 06/09 Patient reports she remains depressed, with SI. Patient also reports she had a very difficult time sleeping last night feeling very upset following a conversation she had on the phone with her mother. Patient expressed to her mother she is feeling hurt that her mom has not visited or called throughout her admission, even on patient's birthday; she says her mom was on apologetic. Patient also challenged her mom regarding her mom's past comment that patient could burn in hell with her father (who 2 years ago); mom remained unapologetic. Patient tells inspector automatic typewriter she has no idea why her mom said this other than that her mom is crazy... Subsequently patient reports that throughout the night, she had racing thoughts and no sleep. Discussed medications and patient and pt is eager to try Belbuca Films for pain management, available today dc'd gabapentin; pt said has never helped for pain or anxiety Adding clonidine at bedtime to help w/ sleep, anxiety 06/10 patient reports that Belbuca is helping with pain Patient remains very depressed and continues to have suicidal thoughts, saying she wants to end her life when she leaves the hospital. Patient Says I do not understand myself.. And laments she is gone most of her life without any suicidal ideation and only started this past September. Patient shared about some other reasons that it might be occurring and agrees that she still mourning the loss of her father who was her confidante; dealing with chronic pain having been off pain medications for several months and the ongoing struggles in her relationship with her mother and brother whom she feels are bullying; trying to come to terms with the fact that her mother simply isn't going to be the kind of mother she wishes she had. Patient agrees to medication management. 06/13 still very depressed with SI. Sleeping better however which is helpful and pain medications are also helpful. Patient agrees to increasing Vraylar; agrees to behavioral activation and attending groups. Despite ongoing thoughts about self-harm and ending her life when she is discharge, patient is also future oriented and says she would like to find a new place to live separate from her mother and brother. Asks for help going about that. 06/14 pt remains depressed, positive for SI with a plan but also future oriented talking about changing her living situation. Pt is engaged in treatment, trying to process her suicidal feelings and trying to be hopeful it will resolve. Agrees to adding Wellbutrin. -will likely add Wellbutrin; however, will probably keep Vraylar (maybe at lower dose) since pt has hx of manic-esque episodes (thought not formally diagnosed with bipolar as episode had several contributory factors) 06/15 remains depressed but processing feelings, doing worksheets, talking about her mother. Pt very anxious. -may increase wellbutrin for depression -considered starting Clonazepam 0.5mg BID; pt used to be on as much as 5mg of ativan daily; was weened off so hesitant to restart benzo's; 06/16: continue current tx plan. 06/17 increase Wellbutrin PLAN: CV? One-to-one?since?indwelling?Van INCREASE to WEllbutrin XL 300mg for continued depression (pt adamant about not starting anti-depressant with risk of wt gain) Continue Vraylar 4.5 mg daily (Vraylar chosen since patient has depression but also history of manic type behaviors, possibly manic episode with some delusions and AH) Continue Belbuca 75mcg films BID for pain management (history of fentanyl patch, morphine, oxycodone, OxyContin) clonidine prn Patient educated on: diagnosis, medication risk/benefits, therapeutic strategies and medical condition Informed Consent: understands Reason for continued inpatient stay Substantial Risk for: inability to function and rapid decompensation Time Spent With Patient Time: Total time managing care of this patient today ____ minutes.
[2024-06-17] MEDS: Acetaminophen 325 MG TABLET 650 MG PO (22:07)
[2024-06-17] MEDS: bisacodyL 5 MG TABLET.DR 10 MG PO (22:08)
[2024-06-17] MEDS: QUEtiapine Fumarate 50 MG TABLET PO (22:08)
[2024-06-17] MEDS: Tamsulosin HCL 0.4 MG CAPSULE PO (22:09)
--- NOTE | 2024-06-18 00:39 | P.EN_ITS ---
Event Note Date of Service: 06/18/24 Event Note: Consult placed for vaginal pain. Patient states she has been having 10/10 vaginal pain, ?at the site of van insertion. Examination performed with the help of female microcomputer support specialist. Van in place. No erythema or tenderness of external genitalia. Whitish discharge noted. Will order vaginal swab and UA. Ordered xylocaine Uro jet Time Spent With Patient Time: Total time managing care of this patient today ____ minutes.
[2024-06-18] MEDS: Lidocaine HCl 2 % Urojet 10 ML JEL.PF.APP TOPICAL ×3 (01:40→18:58)
[2024-06-18 04:19] VITALS: BP 135/90
[2024-06-18] MEDS: cloNIDine HCL 0.1 MG TABLET PO ×4 (04:19→22:09)
--- NOTE | 2024-06-18 07:49 | PC.NURSE ---
Pt woke 2335 c/o Joseph catheter pain 10+/10; I just woke up and it wasn't like that earlier . Pt reported that baseline pain from Joseph to be 3-4/10. Pt had received PRN Tylenol 650mg PO and POM Bilbuca film, 75mcg given at 2266. Pt reported it feels like the Joseph is tearing my urethra . OnCall provider was informed and order obtained for STAT hospitalist consult. Nita was informed and pt was seen at 0030. Order obtained for labs and Lidocaine 2% Urojet 10mL topical given with good effect.
[2024-06-18 08:00] VITALS: BP 125/77; PULSE 71; RESP 20; TEMP 36.6; O2SAT 98
[2024-06-18] MEDS: Cariprazine HCl 1.5 MG CAPSULE 4.5 MG PO (08:27)
[2024-06-18] MEDS: hydrOXYzine HCL 25 MG TABLET PO ×2 (08:27→22:09)
[2024-06-18] MEDS: buPROPion HCl XL 300 MG TAB.ER.24H PO (08:28)
[2024-06-18] MEDS: Ascorbic Acid 500 MG TABLET 1000 MG PO (08:29)
[2024-06-18] MEDS: BUPRENORPHINE 75 MCG 1 EACH PO ×2 (08:35→22:30)
[2024-06-18 09:30] LABS: Appearance Urine Cloudy; Color Urine Yellow; Glucose Urine UA Negative (Negative); Leukocyte Esterase Urine Large (3+) (Negative); Nitrite Urine Positive (Negative); UMIC TRIGGER UACC YES; Urine Blood Trace (Negative); Urine Ketones Negative (Negative); Urine Protein 30 (1+) mg/dL (Neg-Trace)
[2024-06-18 09:50] LABS: Bacteria Urine 4+ (None Seen); Hyaline Casts Urine 0-2 /LPF (0-2); Squamous Epithelial Cell Urine 0-2 /HPF (0-2); UACC Culture Trigger YES; WBC Urine >50 /HPF (0-5)
--- NOTE | 2024-06-18 11:01 | P.PNPSI_ITS ---
Subjective Subjective Date of Service: 06/18/24 Reason For Visit: Sa Interim History: Met with patient and discussed with nursing and hospitalist. Patient has been dealing with urinary catheter and urethral pain. Patient had her catheter removed per urology earlier today due to pain. She however continued to have severe sharp localized pain in the meatus area and was prescribed lidocaine urojet with some relief. She has had some urinary retention and urology recommended a small 12 somali cath. They plan on doing a suprapubic cath possibly Thursday. Patient was difficult to interview as she was in significant discomfort. Patient's urine was positive for makenna and UTI> Her BV was positive. Per hospitalist recommended Flagyl and an ID consult due to Abx resistance and the patient has already finished Diflucan without eradication of her fungal UTI and antifungal resistance. Review of Systems Review of Systems as noted in HPI Yes all other systems are reviewed and are negative Mental Status Exam Mental Status Exam Narrative: Pt is alert and oriented; behavior is cooperative and calm; patient in physical pain; dressed in hospital attire; mood is described as anxious and depressed ; eye contact appropriate; Speech is normal rate, volume and not pressured; thought process is organized and goal directed; Thought content is on tx; denies HI/VH/AH. Pt reports suicidal ideation with no plan while on unit. Patient Appearance: Appropriate Patient Orientation: Person, Place, Time and Situation Level of Consciousness: Alert Patient Behavior: Talkative and Good Eye Contact Mood Description: Depressed and Apprehensive Affect Description: Apprehensive Ability to Follow Directions: Good Speech Pattern: Spontaneous Speech Diagnostics Vital Signs (24Hr): Vital Signs - 24 hr 06/17/24 12:17 06/17/24 17:53 06/17/24 20:00 Temperature 97.6 F Pulse Rate 80 Respiratory Rate Blood Pressure 123/77 144/79 H 130/80 Pulse Oximetry 99 Oxygen Delivery Method Room Air 06/17/24 22:05 06/18/24 04:19 06/18/24 08:00 Temperature 97.5 F 97.8 F Pulse Rate 75 71 Respiratory Rate 20 Blood Pressure 122/78 135/90 H 125/77 Pulse Oximetry 98 Oxygen Delivery Method Room Air BMI result Body Mass Index 17.2 Labs 06/06/24 08:20 06/06/24 08:20 Labs: Laboratory Results - last 48 hr 06/18/24 Unknown Urine Color Yellow Urine Appearance Cloudy Urine pH 7.0 Ur Specific Bonn[place] 1.010 Urine Protein 30 (1+) H Urine Glucose (UA) Negative Urine Ketones Negative Urine Blood Trace H Urine Nitrite Positive H Ur Leukocyte Esterase Large (3+) H Urine RBC 3-5 H Urine WBC >50 H Ur Squamous Epith Cells 0-2 Urine Bacteria 4+ Hyaline Casts 0-2 Imaging Radiology Impressions: ITS Impressions KUB X-Ray 06/03/24 19:55 IMPRESSION: Increased amount of stool in the colon suggesting constipation. Please correlate with clinical presentation. Electronically signed by: Oneida Pham MD 06/04/2024 07:31 AM EDT RP Renal Ultrasound 06/04/24 14:49 IMPRESSION: No ultrasound evidence of renal obstruction or hydronephrosis. Limited visualization of the left kidney obscured by bowel gas, exam otherwise unremarkable. Electronically signed by: Oneida Pham MD 06/05/2024 12:56 PM EDT RP Abdomen/Pelvis CT 06/04/24 18:33 IMPRESSION: Severe constipation. Otherwise unremarkable CT abdomen and pelvis. Fleischner guidelines were followed. Electronically signed by: Deyvi Collins MD 06/04/2024 07:05 PM EDT RP Medications Medications Current Medications Acetaminophen (Acetaminophen 325 Mg Tablet) 650 mg PO Q6H PRN PRN Reason: Headache/Pain Mild Scale (1-3) Last Admin: 06/17/24 22:07 Dose: 650 mg Al Hydroxide/Mg Hydroxide (Magnesium Hydrox/Alum Hydrox 30 Ml Oral.Susp) 30 ml PO Q6H PRN PRN Reason: Heartburn/Nausea Albuterol Sulfate (Albuterol Sulfate 90 Mcg 8 Gm Inhaler) 2 puff INHALE QID PRN PRN Reason: Shortness Of Breath Ascorbic Acid (Ascorbic Acid 500 Mg Tablet) 1,000 mg PO DAILY [facility] Last Admin: 06/18/24 08:29 Dose: 1,000 mg Bisacodyl (Bisacodyl 5 Mg Tablet.Dr) 10 mg PO BEDTIME [facility] Last Admin: 06/17/24 22:08 Dose: 10 mg Bupropion HCl (Bupropion Hcl Xl 300 Mg Tab.Er.24h) 300 mg PO DAILY [facility] Last Admin: 06/18/24 08:28 Dose: 300 mg Cariprazine (Cariprazine Hcl 1.5 Mg Capsule) 4.5 mg PO DAILY [facility] Last Admin: 06/18/24 08:27 Dose: 4.5 mg Clonidine HCl (Clonidine Hcl 0.1 Mg Tablet) 0.1 mg PO BEDTIME [facility]; Protocol Last Admin: 06/17/24 22:28 Dose: Not Given Clonidine HCl (Clonidine Hcl 0.1 Mg Tablet) 0.1 mg PO Q4H PRN; Protocol PRN Reason: anxiety Last Admin: 06/18/24 08:28 Dose: 0.1 mg Hydroxyzine HCl (Hydroxyzine Hcl 25 Mg Tablet) 25 mg PO Q6H PRN PRN Reason: Anxiety Last Admin: 06/18/24 08:27 Dose: 25 mg Lactulose (Lactulose 20 Gm/30 Ml Solution) 40 gm PO DAILY [facility] Last Admin: 06/18/24 08:36 Dose: Not Given Loperamide HCl (Loperamide Hcl 2 Mg Capsule) 2 mg PO Q4H PRN PRN Reason: Diarrhea Magnesium Hydroxide (Milk Of Magnesia 30 Ml Oral.Susp) 30 ml PO DAILY PRN PRN Reason: Constipation Last Admin: 06/04/24 05:22 Dose: 30 ml Multi-Ingred Cream/Lotion/Oil/Oint (Mineral Oil/Petrolatum,White 106 Gm Tube) 1 appl TOPICAL BID PRN; Protocol PRN Reason: Dry Skin Last Admin: 06/13/24 21:44 Dose: 1 appl Patient Own (Belbuca (75mcg Buccal Films)) 1 each PO BID [facility] Last Admin: 06/18/24 08:35 Dose: 1 each Ondansetron HCl (Ondansetron Odt 4 Mg Tab.Rapdis) 4 mg TRANSLINGU Q6H PRN PRN Reason: Nausea and Vomiting Last Admin: 06/16/24 10:51 Dose: 4 mg Polyethylene Glycol (Polyethylene Glycol 3350 17 Gm Powd.Pack) 17 gm PO BID [facility] Last Admin: 06/18/24 08:36 Dose: Not Given Quetiapine Fumarate (Quetiapine Fumarate 50 Mg Tablet) 50 mg PO BEDTIME [facility] Last Admin: 06/17/24 22:08 Dose: 50 mg Senna/Docusate Sodium (Sennosides/Docusate Sodium Tablet) 2 tab PO BID [facility] Last Admin: 06/18/24 08:36 Dose: Not Given Simethicone (Simethicone 80 Mg Tab.Chew) 160 mg PO BID PRN PRN Reason: bloating/gas Last Admin: 06/07/24 11:06 Dose: 160 mg Tamsulosin HCl (Tamsulosin Hcl 0.4 Mg Capsule) 0.4 mg PO BEDTIME [facility] Last Admin: 06/17/24 22:09 Dose: 0.4 mg Allergies Allergies Allergy/AdvReac Type Severity Reaction Status Date / Time azithromycin Allergy Itching Verified 05/25/24 19:31 levofloxacin [From Levaquin] Allergy Nightmare Verified 05/25/24 19:31 nitrofurantoin Allergy Itching Verified 05/25/24 19:31 [From Macrodantin] Assessment & Plan Assessment & Plan (1) MDD (major depressive disorder), recurrent episode, moderate: Status: Acute Code(s): F33.1 - Major depressive disorder, recurrent, moderate (2) PTSD (post-traumatic stress disorder): Status: Acute Code(s): F43.10 - Post-traumatic stress disorder, unspecified (3) Osteogenesis imperfecta: Status: Acute Code(s): Q78.0 - Osteogenesis imperfecta (4) Jennifer-Danlos disease: Status: Acute Code(s): Q79.60 - Jennifer-Danlos syndrome, unspecified (5) Chronic pain syndrome: Status: Acute Code(s): G89.4 - Chronic pain syndrome (6) Indwelling Van catheter present: Status: Acute Code(s): Z97.8 - Presence of other specified devices (7) Urinary retention: Status: Acute Code(s): R33.9 - Retention of urine, unspecified (8) Voiding dysfunction: Status: Acute Code(s): N39.8 - Other specified disorders of urinary system Plan HPI: Patient is a 39-year-old female with history of Jennifer Danlos syndrome, osteogenesis imperfecta, myofascial pain syndrome, migraines, juvenile osteoporosis, asthma, and mood disorder with history of rectocele, vaginal mesh surgery, urinary retention requiring Van catheterization, which was recently restarted. P atient?presented?to?[facility]?on?924?following?intentional?overdose?on?muscle?rel axers.??Patient?lujan mary?was?immediately?transferred?to?medical?floor?for?urinary?retention;?she?stab ilized?there?and?was?discharged.?? She?presents?again?for?overdose On?gabapentin?and?trazodone,?Which?she?asserts?was?not?intentional (though later admits it was),?saying?she?just?wanted?to?sleep?and?get?relief?from?chronic?pain H owever?she?agrees?it?was?impulsive?and?unsafe.??Patient?currently?denies?any?SI. ??She?reports?howeve r?that?life?has?been?very?difficultff?pain?medications,?having?been?prescribed?o pioids?consistently?for?the?past?24?years,? as?well?as?Ativan.??Patient?agrees?she?needs Help?stabilizing?and?coping. Relevant Medical/psych History: Patient was on opiates scheduled for 24 years to manage chronic medical comorbidities, resulting in hx of multiple fractures/falls and subsequent chronic pain. Pt denies any hx of substance abuse, including cannabis. She did screen positive for Fentanyl at first admission in October 2024 but is adamant she's never used it in her life and no quantitative labs done (leaving Fentanyl use inconclusive). Patients long-time physician of [address] Brigido Dietrich retired and new PCP tapered her off and discontinued all opioid pain management (also tapered and dc'd ativan). Patient reports she has been in constant pain and discomfort since then and has felt very frustrated and challenged to enjoy life, sometimes challenging her desire to live. Discussed?case?with?MAGDA Dunaway from pain management clinic: pt seen on 05/24. MAGDA Dunaway agrees that patients medical comorbidities and subsequent chronic pain syndrome are commonly treated with opioid pain management. She recommends either Butrans patch or preferably Belbucha films (a form of Buprenorphin and titrating it to 150mg BID). Pt is also appropriate to get other nerve blocking treatments at pain clinic who will f/u with pt. Developmental Education Instructor spoke with patient's PCP Dr. Rubio at [facility] Dr. Rubio reports concurs that patient has Osteogenesis imprefecta, [place] Damico Pt was on opioids for 24 years with prior PCP. With [facility] she was on Oxycodine 30mg QID and Oxycontin 30mg daily. In Sep 2023 pt was admitted to [facility] for concern for overdose. Additionally, there were other concerns including that [facility] notes referenced that patient reported being on a Fentanyl patch, which this provider had never prescribed. Additionally, there was hx of patient needing refills early and a report that her mother had used some of her medications. Also patient had significant weight loss which provider was concerned might have contributed to possible accidental overdose. Because of these concerns provider, clinic repeatedly called patient to come in and discuss pain management and reportedly reached out to her from October until January however patient did not respond or come in for appointments, having missed several. Provider reports that because of lack of communication and ongoing concern that was never addressed, Provider felt it was necessary to taper patient off pain medication which was started in January; patient was also tapered off Ativan. Provider agrees that patient does have significant medical history that is commonly treated with chronic pain medication. Developmental Education Instructor discussed options with them and Dr. Rubio agrees that starting patient on a buprenorphine product is an acceptable alternative to oxycodone. Vraylar since depressed and hx of manic-esque IMPRESSION: Patient's?depression?and?SI?seem?to?have significant?situational component?as?she?is?No?longer?receiving?pain?management?for?severe,?chronic?pain . P atient?has?no?known?history?of?substance?abuse.??Although?she?did?screen?positiv e?for?fentanyl (on?10/27/2023 and?05/18/2024), No?quantitative?analysis?was?done. ?This?mean that?fentanyl?screen?could?very?well?be?a?false-positive?result (which is not uncommon). Medical?decision?should?not?be?based?on?only?a?positive?screen?for?fentanyl. Patient does struggle with SI and with her chronic?pain?And?poor?support?will?likely?continue?to?produce?mood?instability.? ?Treatment?plan?will?include?teletypewriter installer/team?discussion?with Outpatient?PCP?regarding?plan?for?treatment. Hospital course: 06/05: Continue current regimen and plans 06/06. Continue current plans and regimen. Loperamide was put on hold. Started on simethicone by hospitalist. No indications of GI bleeding currently. -seen by GI: C/o constipation and worsening abdominal distension. Will order CT A/P with IV/PO contrast to assess for SBO/ileus though passage of gas and small amount of stool argues against complete obstruction; however she is at risk given multiple surgeries. If no obstruction will order bowel regimen to address constipation. Continue Van, Urology following. 06/07 Patient reports that she is depressed. She apologized for not being more forthcoming earlier on in says it took her awhile to admitted to herself but she does not want to be in this world anymore... And has a plan to jump in front of a train on discharge. Patient also reports that overdose on trazodone/gabapentin was actually an intentional suicide attempt. She reports a constant deluge of self-deprecating thoughts which include that she is worthless, discussed in, and fat. Developmental Education Instructor reviewed patient's history of anorexia and patient reports she sees herself as fat every day and eats very little (history of anorexia since 14 years old; was at brought up oral for a month with a feeding tube; she understands that this is a significant cause of her chronic constipation). Despite her SI, patient does want help getting better agrees to try antidepressant medication; teletypewriter installer reviewed options and risks/side effects and patient with Vraylar. Also discussed pain medication management and patient agrees with Belbuca which she has heard of; she also agrees to non opioid pain management and will follow-up with pain management Clinic here at [facility]. Discussed relationship with her mother and she does not SA think her mother struggles with drug addiction but has caught her trying to get into her room, which patient keeps locked, looking for her medications which she has taken in the past. Patient said she reported this to her PCP. Patient does have history of being prescribed fentanyl patch however she did not like them and weaned herself off of them; set had some left over 06/08 Patient remains depressed with suicidal thinking however is trying to be hopeful and has tolerated Vraylar and says will continue, with increased dose; grateful for help getting Belbuca through prior authorization. -Discussed case with urology who recommends remaining with indwelling Van since failed voiding attempt on 06/03; will continue to follow -pt reported and nurse corroborated that Van bag containing urine was blood- tinged; discussed with Urologist, deemed likely micro trauma, and to keep van in place; recently failed voiding trial on 06/03 06/09 Patient reports she remains depressed, with SI. Patient also reports she had a very difficult time sleeping last night feeling very upset following a conversation she had on the phone with her mother. Patient expressed to her mother she is feeling hurt that her mom has not visited or called throughout her admission, even on patient's birthday; she says her mom was on apologetic. Patient also challenged her mom regarding her mom's past comment that patient could burn in hell with her father (who 2 years ago); mom remained unapologetic. Patient tells teletypewriter installer she has no idea why her mom said this other than that her mom is crazy... Subsequently patient reports that throughout the night, she had racing thoughts and no sleep. Discussed medications and patient and pt is eager to try Belbuca Films for pain management, available today dc'd gabapentin; pt said has never helped for pain or anxiety Adding clonidine at bedtime to help w/ sleep, anxiety 06/10 patient reports that Belbuca is helping with pain Patient remains very depressed and continues to have suicidal thoughts, saying she wants to end her life when she leaves the hospital. Patient Says I do not understand myself.. And laments she is gone most of her life without any suicidal ideation and only started this past September. Patient shared about some other reasons that it might be occurring and agrees that she still mourning the loss of her father who was her confidante; dealing with chronic pain having been off pain medications for several months and the ongoing struggles in her relationship with her mother and brother whom she feels are bullying; trying to come to terms with the fact that her mother simply isn't going to be the kind of mother she wishes she had. Patient agrees to medication management. 06/13 still very depressed with SI. Sleeping better however which is helpful and pain medications are also helpful. Patient agrees to increasing Vraylar; agrees to behavioral activation and attending groups. Despite ongoing thoughts about self-harm and ending her life when she is discharge, patient is also future oriented and says she would like to find a new place to live separate from her mother and brother. Asks for help going about that. 06/14 pt remains depressed, positive for SI with a plan but also future oriented talking about changing her living situation. Pt is engaged in treatment, trying to process her suicidal feelings and trying to be hopeful it will resolve. Agrees to adding Wellbutrin. -will likely add Wellbutrin; however, will probably keep Vraylar (maybe at lower dose) since pt has hx of manic-esque episodes (thought not formally diagnosed with bipolar as episode had several contributory factors) 06/15 remains depressed but processing feelings, doing worksheets, talking about her mother. Pt very anxious. -may increase wellbutrin for depression -considered starting Clonazepam 0.5mg BID; pt used to be on as much as 5mg of ativan daily; was weened off so hesitant to restart benzo's; 06/16: continue current tx plan. 06/18: Continue current management and treatment plan. Continue medical/urology management of urogenital concerns. PLAN: CV? One-to-one?since?indwelling?Van Continue WEllbutrin XL 150mg for continued depression (pt adamant about not starting anti-depressant with risk of wt gain) Continue Vraylar 4.5 mg daily (Vraylar chosen since patient has depression but also history of manic type behaviors, possibly manic episode with some delusions and AH) Continue Belbuca 75mcg films BID for pain management (history of fentanyl patch, morphine, oxycodone, OxyContin) clonidine prn Reason for continued inpatient stay Substantial Risk for: harm to self, inability to function, rapid decompensation and med/psych decompensation Time Spent With Patient Time: Total time managing care of this patient today ____ minutes.
[2024-06-18 11:09] LABS: CT PCR NOT DETECTED (Not Detect.); NG PCR NOT DETECTED (Not Detect.)
[2024-06-18] MEDS: Acetaminophen 325 MG TABLET 650 MG PO ×2 (12:04→22:08)
[2024-06-18] MEDS: Ibuprofen 600 MG TABLET PO ×2 (12:05→18:57)
[2024-06-18 12:32] LABS: Bacterial Vaginosis PCR POSITIVE (Negative); Candida Group PCR NOT DETECTED (Not Detect); Candida glab krusei PCR DETECTED (Not Detect); Trichomonas vaginalis PCR NOT DETECTED (Not Detect)
--- NOTE | 2024-06-18 15:44 | PM.EVENT ---
Event Note Date of Service: 06/18/24 Event Note: Consulted due to vaginal pain Seen by hospitalist last night for the same patient complained of pain at site of Joseph insertion, no erythema or tenderness noted to have external genitalia, whitish drainage was noted Patient treated with lidocaine as needed with some relief in symptoms Receiving Pyridium UA 06/18 positive for 4+ bacteria, greater than 50 WBC, large leukocyte esterase positive nitrates Urine culture pending Urine culture 05/25 and 06/01 grew Raissa glabrata patient received Diflucan 200 mg daily from 06/01 through 06/15 Bacterial vaginosis PCR positive Raissa grew size/glabrata detected Due to persistent symptoms of vaginal pain/discharge recommend Infectious Disease consultation Follow urine culture. Flagyl 500 q.12 hours x7 days placed for bacterial vaginosis. Time Spent With Patient Time: Total time managing care of this patient today ____ minutes.
[2024-06-18] MEDS: Phenazopyridine HCL 100 MG TABLET PO (16:16)
[2024-06-18] MEDS: metroNIDAZOLE 500 MG TABLET PO (16:16)
[2024-06-18 16:17] VITALS: BP 130/89
[2024-06-18] MEDS: Ondansetron ODT 4 MG TAB.RAPDIS TRANSLINGU (16:17)
[2024-06-18 20:00] VITALS: BP 138/99; PULSE 84; RESP 15; TEMP 36.8; O2SAT 98
[2024-06-18] MEDS: QUEtiapine Fumarate 50 MG TABLET PO (22:09)
[2024-06-18] MEDS: Tamsulosin HCL 0.4 MG CAPSULE PO (22:09)
[2024-06-19] MEDS: Ibuprofen 600 MG TABLET PO ×2 (01:48→08:46)
[2024-06-19] MEDS: Lidocaine HCl 2 % Urojet 10 ML JEL.PF.APP TOPICAL ×2 (02:26→22:05)
[2024-06-19] MEDS: hydrOXYzine HCL 25 MG TABLET PO (03:53)
[2024-06-19] MEDS: metroNIDAZOLE 500 MG TABLET PO ×2 (03:53→16:05)
--- NOTE | 2024-06-19 06:46 | PC.NURSE ---
At 6:40 am pt reported starting a new pain on her kidneys area bilaterally. Rated her pain 8/10. Temporal temp is 36.8C. Will pass message to incoming day shift.
[2024-06-19 08:00] VITALS: BP 126/82; PULSE 78; RESP 20; TEMP 36.8; O2SAT 99
[2024-06-19] MEDS: Cariprazine HCl 1.5 MG CAPSULE 4.5 MG PO (08:43)
[2024-06-19] MEDS: Ascorbic Acid 500 MG TABLET 1000 MG PO (08:44)
[2024-06-19] MEDS: buPROPion HCl XL 300 MG TAB.ER.24H PO (08:44)
[2024-06-19] MEDS: Phenazopyridine HCL 100 MG TABLET PO ×3 (08:45→16:05)
[2024-06-19] MEDS: cloNIDine HCL 0.1 MG TABLET PO ×2 (08:46→21:34)
[2024-06-19] MEDS: Sennosides/Docusate Sodium TABLET 2 TAB PO ×2 (08:46→21:34)
[2024-06-19] MEDS: BUPRENORPHINE 75 MCG 1 EACH PO ×2 (08:47→21:33)
--- NOTE | 2024-06-19 11:30 | HO.PSYCHPN ---
Subjective Subjective Date of Service: 06/19/24 Reason For Visit: Sa Interim History: Met with patient and discussed with nursing. Complaining of shoulder and rib pain. She believes she may have dislocated her shoulder. 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 She reports left shoulder motion is limited and painful. She also feels she may have a rib fracture because of pain. Given her EDS and OI will obtain imaging. She says Lidocaine topically at the site of pain in the urethral meatus has been helpful. 12 frnch catheter is better tolerated. Tolerating her antidepressant medication changes. Hard to assess efficacy of AD given the pain and dealing with the UTI and chronic pain. Hospitalist recommended Flagyl and an ID consult yesterday due to antifungal agent resistance and the patient has already finished Diflucan without eradication of her fungal UTI. Review of Systems Review of Systems as noted in HPI Yes all other systems are reviewed and are negative Mental Status Exam Mental Status Exam Narrative: Pt is alert and oriented; behavior is cooperative and calm; patient in physical pain; dressed in hospital attire; mood is described as anxious and depressed ; eye contact appropriate; Speech is normal rate, volume and not pressured; thought process is organized and goal directed; Thought content is on tx; denies HI/VH/AH. Pt reports suicidal ideation with no plan while on unit. Patient Appearance: Appropriate Patient Orientation: Person, Place, Time and Situation Level of Consciousness: Alert Patient Behavior: Talkative and Good Eye Contact Mood Description: Depressed and Apprehensive Affect Description: Apprehensive Ability to Follow Directions: Good Speech Pattern: Spontaneous Speech Diagnostics Vital Signs (24Hr): Vital Signs - 24 hr 06/18/24 16:17 06/18/24 20:00 06/19/24 08:00 Temperature 98.3 F 98.2 F Pulse Rate 84 78 Respiratory Rate 15 20 Blood Pressure 130/89 138/99 H 126/82 Pulse Oximetry 98 99 Oxygen Delivery Method Room Air BMI result Body Mass Index 17.2 Labs 06/06/24 08:20 06/06/24 08:20 Labs: Laboratory Results - last 48 hr 06/18/24 06/18/24 11:00 Unknown Urine Color Yellow Urine Appearance Cloudy Urine pH 7.0 Ur Specific [place] 1.010 Urine Protein 30 (1+) H Urine Glucose (UA) Negative Urine Ketones Negative Urine Blood Trace H Urine Nitrite Positive H Ur Leukocyte Esterase Large (3+) H Urine RBC 3-5 H Urine WBC >50 H Ur Squamous Epith Cells 0-2 Urine Bacteria 4+ Hyaline Casts 0-2 Chlam trachomat DNA PCR NOT DETECTED N.gonorrhoeae DNA (PCR) NOT DETECTED T. vaginalis (PCR) NOT DETECTED Bact Vaginosis (PCR) POSITIVE A C. krusei/glabrata (PCR) DETECTED A Raissa group (PCR) NOT DETECTED Imaging Radiology Impressions: ITS Impressions KUB X-Ray 06/03/24 19:55 IMPRESSION: Increased amount of stool in the colon suggesting constipation. Please correlate with clinical presentation. Electronically signed by: Oneida Pham MD 06/04/2024 07:31 AM EDT RP Renal Ultrasound 06/04/24 14:49 IMPRESSION: No ultrasound evidence of renal obstruction or hydronephrosis. Limited visualization of the left kidney obscured by bowel gas, exam otherwise unremarkable. Electronically signed by: Oneida Pham MD 06/05/2024 12:56 PM EDT RP Abdomen/Pelvis CT 06/04/24 18:33 IMPRESSION: Severe constipation. Otherwise unremarkable CT abdomen and pelvis. Fleischner guidelines were followed. Electronically signed by: Deyvi Collins MD 06/04/2024 07:05 PM EDT RP Ribs X-Ray 06/19/24 10:15 IMPRESSION: 1. Mild degenerative changes of the left shoulder. 2. No left-sided rib fracture. Electronically signed by: Orlando Lindsey MD 06/19/2024 10:50 AM EDT RP Shoulder X-Ray 06/19/24 10:15 IMPRESSION: 1. Mild degenerative changes of the left shoulder. 2. No left-sided rib fracture. Electronically signed by: Orlando Lindsey MD 06/19/2024 10:50 AM EDT RP Medications Medications Current Medications Acetaminophen (Acetaminophen 325 Mg Tablet) 650 mg PO Q6H PRN PRN Reason: Headache/Pain Mild Scale (1-3) Last Admin: 06/18/24 22:08 Dose: 650 mg Al Hydroxide/Mg Hydroxide (Magnesium Hydrox/Alum Hydrox 30 Ml Oral.Susp) 30 ml PO Q6H PRN PRN Reason: Heartburn/Nausea Albuterol Sulfate (Albuterol Sulfate 90 Mcg 8 Gm Inhaler) 2 puff INHALE QID PRN PRN Reason: Shortness Of Breath Ascorbic Acid (Ascorbic Acid 500 Mg Tablet) 1,000 mg PO DAILY [facility] Last Admin: 06/19/24 08:44 Dose: 1,000 mg Bisacodyl (Bisacodyl 5 Mg Tablet.Dr) 10 mg PO BEDTIME [facility] Last Admin: 06/18/24 22:34 Dose: Not Given Bupropion HCl (Bupropion Hcl Xl 300 Mg Tab.Er.24h) 300 mg PO DAILY [facility] Last Admin: 06/19/24 08:44 Dose: 300 mg Cariprazine (Cariprazine Hcl 1.5 Mg Capsule) 4.5 mg PO DAILY [facility] Last Admin: 06/19/24 08:43 Dose: 4.5 mg Clonidine HCl (Clonidine Hcl 0.1 Mg Tablet) 0.1 mg PO BEDTIME [facility]; Protocol Last Admin: 06/18/24 22:09 Dose: 0.1 mg Clonidine HCl (Clonidine Hcl 0.1 Mg Tablet) 0.1 mg PO Q4H PRN; Protocol PRN Reason: anxiety Last Admin: 06/19/24 08:46 Dose: 0.1 mg Hydroxyzine HCl (Hydroxyzine Hcl 25 Mg Tablet) 25 mg PO Q6H PRN PRN Reason: Anxiety Last Admin: 06/19/24 03:53 Dose: 25 mg Ibuprofen (Ibuprofen 600 Mg Tablet) 600 mg PO Q6H PRN PRN Reason: Pain, Severe (Pain Scale 7-10) Last Admin: 06/19/24 08:46 Dose: 600 mg Lactulose (Lactulose 20 Gm/30 Ml Solution) 40 gm PO DAILY [facility] Last Admin: 06/19/24 09:10 Dose: Not Given Lidocaine (Lidocaine 4 % Patch Adh..Patch) 1 patch TRANSDERMA DAILY [facility]; Protocol Lidocaine HCl (Lidocaine Hcl 2 % Urojet 10 Ml Jel.Pf.Luis) 10 ml TOPICAL BID PRN PRN Reason: Pain, Severe (Pain Scale 7-10) Loperamide HCl (Loperamide Hcl 2 Mg Capsule) 2 mg PO Q4H PRN PRN Reason: Diarrhea Magnesium Hydroxide (Milk Of Magnesia 30 Ml Oral.Susp) 30 ml PO DAILY PRN PRN Reason: Constipation Last Admin: 06/04/24 05:22 Dose: 30 ml Metronidazole (Metronidazole 500 Mg Tablet) 500 mg PO Q12H [facility] Stop: 06/25/24 15:44 Last Admin: 06/19/24 03:53 Dose: 500 mg Multi-Ingred Cream/Lotion/Oil/Oint (Mineral Oil/Petrolatum,White 106 Gm Tube) 1 appl TOPICAL BID PRN; Protocol PRN Reason: Dry Skin Last Admin: 06/13/24 21:44 Dose: 1 appl Patient Own (Belbuca (75mcg Buccal Films)) 1 each PO BID [facility] Last Admin: 06/19/24 08:47 Dose: 1 each Ondansetron HCl (Ondansetron Odt 4 Mg Tab.Rapdis) 4 mg TRANSLINGU Q6H PRN PRN Reason: Nausea and Vomiting Last Admin: 06/18/24 16:17 Dose: 4 mg Phenazopyridine HCl (Phenazopyridine Hcl 100 Mg Tablet) 100 mg PO TIDWM [facility] Stop: 06/20/24 12:01 Last Admin: 06/19/24 08:45 Dose: 100 mg Polyethylene Glycol (Polyethylene Glycol 3350 17 Gm Powd.Pack) 17 gm PO BID [facility] Last Admin: 06/19/24 09:10 Dose: Not Given Quetiapine Fumarate (Quetiapine Fumarate 50 Mg Tablet) 50 mg PO BEDTIME [facility] Last Admin: 06/18/24 22:09 Dose: 50 mg Senna/Docusate Sodium (Sennosides/Docusate Sodium Tablet) 2 tab PO BID [facility] Last Admin: 06/19/24 08:46 Dose: 2 tab Simethicone (Simethicone 80 Mg Tab.Chew) 160 mg PO BID PRN PRN Reason: bloating/gas Last Admin: 06/07/24 11:06 Dose: 160 mg Tamsulosin HCl (Tamsulosin Hcl 0.4 Mg Capsule) 0.4 mg PO BEDTIME [facility] Last Admin: 06/18/24 22:09 Dose: 0.4 mg Allergies Allergies Allergy/AdvReac Type Severity Reaction Status Date / Time azithromycin Allergy Itching Verified 05/25/24 19:31 levofloxacin [From Levaquin] Allergy Nightmare Verified 05/25/24 19:31 nitrofurantoin Allergy Itching Verified 05/25/24 19:31 [From Macrodantin] Assessment & Plan Assessment & Plan (1) MDD (major depressive disorder), recurrent episode, moderate: Status: Acute Code(s): F33.1 - Major depressive disorder, recurrent, moderate (2) PTSD (post-traumatic stress disorder): Status: Acute Code(s): F43.10 - Post-traumatic stress disorder, unspecified (3) Osteogenesis imperfecta: Status: Acute Code(s): Q78.0 - Osteogenesis imperfecta (4) Jennifer-Danlos disease: Status: Acute Code(s): Q79.60 - Jennifer-Danlos syndrome, unspecified (5) Chronic pain syndrome: Status: Acute Code(s): G89.4 - Chronic pain syndrome (6) Indwelling Van catheter present: Status: Acute Code(s): Z97.8 - Presence of other specified devices (7) Urinary retention: Status: Acute Code(s): R33.9 - Retention of urine, unspecified (8) Voiding dysfunction: Status: Acute Code(s): N39.8 - Other specified disorders of urinary system Plan HPI: Patient is a 39-year-old female with history of Jennifer Danlos syndrome, osteogenesis imperfecta, myofascial pain syndrome, migraines, juvenile osteoporosis, asthma, and mood disorder with history of rectocele, vaginal mesh surgery, urinary retention requiring Van catheterization, which was recently restarted. Patient?presented?to?[facility]?on?924?following?intentional?overdose?on?muscle?relaxers.??Patient?however?was?immediately?transferred?to?medical?floor?for?urinary?retention;?she?stabilized?there?and?was?discharged.?? She?presents?again?for?overdose On?gabapentin?and?trazodone,?Which?she?asserts?was?not?intentional (though later admits it was),?saying?she?just?wanted?to?sleep?and?get?relief?from?chronic?pain However?she?agrees?it?was?impulsive?and?unsafe.??Patient?currently?denies?any?SI.??She?reports?however?that?life?has?been?very?difficultff?pain?medications,?having?been?prescribed?opioids?consistently?for?the?past?24?years,? as?well?as?Ativan.??Patient?agrees?she?needs Help?stabilizing?and?coping. Relevant Medical/psych History: Patient was on opiates scheduled for 24 years to manage chronic medical comorbidities, resulting in hx of multiple fractures/falls and subsequent chronic pain. Pt denies any hx of substance abuse, including cannabis. She did screen positive for Fentanyl at first admission in October 2024 but is adamant she's never used it in her life and no quantitative labs done (leaving Fentanyl use inconclusive). Patients long-time physician of [address] Brigido Dietrich retired and new PCP tapered her off and discontinued all opioid pain management (also tapered and dc'd ativan). Patient reports she has been in constant pain and discomfort since then and has felt very frustrated and challenged to enjoy life, sometimes challenging her desire to live. Discussed?case?with?MANAGER DOCUMENT CONTROL Vianey Dunaway from pain management clinic: pt seen on 05/24. MAGDA Dunaway agrees that patients medical comorbidities and subsequent chronic pain syndrome are commonly treated with opioid pain management. She recommends either Butrans patch or preferably Belbucha films (a form of Buprenorphin and titrating it to 150mg BID). Pt is also appropriate to get other nerve blocking treatments at pain clinic who will f/u with pt. Door To Door Salesman spoke with patient's PCP Dr. Rubio at [facility] Dr. Rubio reports concurs that patient has Osteogenesis imprefecta, Ehlos Danlos Pt was on opioids for 24 years with prior PCP. With [facility] she was on Oxycodine 30mg QID and Oxycontin 30mg daily. In Sep 2023 pt was admitted to [facility] for concern for overdose. Additionally, there were other concerns including that [facility] notes referenced that patient reported being on a Fentanyl patch, which this provider had never prescribed. Additionally, there was hx of patient needing refills early and a report that her mother had used some of her medications. Also patient had significant weight loss which provider was concerned might have contributed to possible accidental overdose. Because of these concerns provider, clinic repeatedly called patient to come in and discuss pain management and reportedly reached out to her from October until January however patient did not respond or come in for appointments, having missed several. Provider reports that because of lack of communication and ongoing concern that was never addressed, Provider felt it was necessary to taper patient off pain medication which was started in January; patient was also tapered off Ativan. Provider agrees that patient does have significant medical history that is commonly treated with chronic pain medication. Door To Door Salesman discussed options with them and Dr. Rubio agrees that starting patient on a buprenorphine product is an acceptable alternative to oxycodone. Vraylar since depressed and hx of manic-esque IMPRESSION: Patient's?depression?and?SI?seem?to?have significant?situational component?as?she?is?No?longer?receiving?pain?management?for?severe,?chronic?pain. Patient?has?no?known?history?of?substance?abuse.??Although?she?did?screen?positive?for?fentanyl (on?10/27/2023 and?05/18/2024), No?quantitative?analysis?was?done. ?This?mean that?fentanyl?screen?could?very?well?be?a?false-positive?result (which is not uncommon). Medical?decision?should?not?be?based?on?only?a?positive?screen?for?fentanyl. Patient does struggle with SI and with her chronic?pain?And?poor?support?will?likely?continue?to?produce?mood?instability.??Treatment?plan?will?include?display card writer/team?discussion?with Outpatient?PCP?regarding?plan?for?treatment. Hospital course: 06/05: Continue current regimen and plans 06/06. Continue current plans and regimen. Loperamide was put on hold. Started on simethicone by hospitalist. No indications of GI bleeding currently. -seen by GI: C/o constipation and worsening abdominal distension. Will order CT A/P with IV/PO contrast to assess for SBO/ileus though passage of gas and small amount of stool argues against complete obstruction; however she is at risk given multiple surgeries. If no obstruction will order bowel regimen to address constipation. Continue Van, Urology following. 06/07 Patient reports that she is depressed. She apologized for not being more forthcoming earlier on in says it took her awhile to admitted to herself but she does not want to be in this world anymore... And has a plan to jump in front of a train on discharge. Patient also reports that overdose on trazodone/gabapentin was actually an intentional suicide attempt. She reports a constant deluge of self-deprecating thoughts which include that she is worthless, discussed in, and fat. Door To Door Salesman reviewed patient's history of anorexia and patient reports she sees herself as fat every day and eats very little (history of anorexia since 14 years old; was at brought up oral for a month with a feeding tube; she understands that this is a significant cause of her chronic constipation). Despite her SI, patient does want help getting better agrees to try antidepressant medication; display card writer reviewed options and risks/side effects and patient with Vraylar. Also discussed pain medication management and patient agrees with Belbuca which she has heard of; she also agrees to non opioid pain management and will follow-up with pain management Clinic here at [facility]. Discussed relationship with her mother and she does not SA think her mother struggles with drug addiction but has caught her trying to get into her room, which patient keeps locked, looking for her medications which she has taken in the past. Patient said she reported this to her PCP. Patient does have history of being prescribed fentanyl patch however she did not like them and weaned herself off of them; set had some left over 06/08 Patient remains depressed with suicidal thinking however is trying to be hopeful and has tolerated Vraylar and says will continue, with increased dose; grateful for help getting Belbuca through prior authorization. -Discussed case with urology who recommends remaining with indwelling Van since failed voiding attempt on 06/03; will continue to follow -pt reported and nurse corroborated that Van bag containing urine was blood-tinged; discussed with Urologist, deemed likely micro trauma, and to keep van in place; recently failed voiding trial on 06/03 06/09 Patient reports she remains depressed, with SI. Patient also reports she had a very difficult time sleeping last night feeling very upset following a conversation she had on the phone with her mother. Patient expressed to her mother she is feeling hurt that her mom has not visited or called throughout her admission, even on patient's birthday; she says her mom was on apologetic. Patient also challenged her mom regarding her mom's past comment that patient could burn in hell with her father (who 2 years ago); mom remained unapologetic. Patient tells display card writer she has no idea why her mom said this other than that her mom is crazy... Subsequently patient reports that throughout the night, she had racing thoughts and no sleep. Discussed medications and patient and pt is eager to try Belbuca Films for pain management, available today dc'd gabapentin; pt said has never helped for pain or anxiety Adding clonidine at bedtime to help w/ sleep, anxiety 06/10 patient reports that Belbuca is helping with pain Patient remains very depressed and continues to have suicidal thoughts, saying she wants to end her life when she leaves the hospital. Patient Says I do not understand myself.. And laments she is gone most of her life without any suicidal ideation and only started this past September. Patient shared about some other reasons that it might be occurring and agrees that she still mourning the loss of her father who was her confidante; dealing with chronic pain having been off pain medications for several months and the ongoing struggles in her relationship with her mother and brother whom she feels are bullying; trying to come to terms with the fact that her mother simply isn't going to be the kind of mother she wishes she had. Patient agrees to medication management. 06/13 still very depressed with SI. Sleeping better however which is helpful and pain medications are also helpful. Patient agrees to increasing Vraylar; agrees to behavioral activation and attending groups. Despite ongoing thoughts about self-harm and ending her life when she is discharge, patient is also future oriented and says she would like to find a new place to live separate from her mother and brother. Asks for help going about that. 06/14 pt remains depressed, positive for SI with a plan but also future oriented talking about changing her living situation. Pt is engaged in treatment, trying to process her suicidal feelings and trying to be hopeful it will resolve. Agrees to adding Wellbutrin. -will likely add Wellbutrin; however, will probably keep Vraylar (maybe at lower dose) since pt has hx of manic-esque episodes (thought not formally diagnosed with bipolar as episode had several contributory factors) 06/15 remains depressed but processing feelings, doing worksheets, talking about her mother. Pt very anxious. -may increase wellbutrin for depression -considered starting Clonazepam 0.5mg BID; pt used to be on as much as 5mg of ativan daily; was weened off so hesitant to restart benzo's; 06/16: continue current tx plan. 06/18: Continue current management and treatment plan. Continue medical/urology management of urogenital concerns. 06/19: Continue current management and treatment plan per primary team. RN asked for a new UA to obtain sample from the port of the catheter rather than the catheter bag directly. XR left shoulder and ribs. PLAN: CV? One-to-one?since?indwelling?Van Continue WEllbutrin XL 150mg for continued depression (pt adamant about not starting anti-depressant with risk of wt gain) Continue Vraylar 4.5 mg daily (Vraylar chosen since patient has depression but also history of manic type behaviors, possibly manic episode with some delusions and AH) Continue Belbuca 75mcg films BID for pain management (history of fentanyl patch, morphine, oxycodone, OxyContin) clonidine prn Reason for continued inpatient stay Substantial Risk for: inability to function, rapid decompensation and med/psych decompensation Time Spent With Patient Time: Total time managing care of this patient today ____ minutes.
[2024-06-19] MEDS: Lidocaine 4 % Patch ADH..PATCH 1 PATCH TRANSDERMA (11:38)
[2024-06-19 12:08] LABS: Appearance Urine Clear; Color Urine Dark Yellow; Glucose Urine UA 100 mg/dL (Negative); Leukocyte Esterase Urine Large (3+) (Negative); Nitrite Urine Positive (Negative); UMIC TRIGGER UACC YES; Urine Blood Negative (Negative); Urine Ketones Negative (Negative); Urine Protein Negative (Neg-Trace)
[2024-06-19 12:20] LABS: Bacteria Urine 2+ (None Seen); Hyaline Casts Urine 0-2 /LPF (0-2); RBC Urine 0-2 /HPF (0-2); Squamous Epithelial Cell Urine 0-2 /HPF (0-2); UACC Culture Trigger YES; WBC Urine 21-50 /HPF (0-5)
[2024-06-19 20:00] VITALS: BP 136/95; PULSE 103; RESP 16; TEMP 37.1; O2SAT 97
[2024-06-19] MEDS: QUEtiapine Fumarate 50 MG TABLET PO (21:33)
[2024-06-19 21:34] VITALS: BP 138/91
[2024-06-19] MEDS: bisacodyL 5 MG TABLET.DR 10 MG PO (21:34)
[2024-06-19] MEDS: Tamsulosin HCL 0.4 MG CAPSULE PO (21:34)
[2024-06-20 01:55] VITALS: BP 156/104
[2024-06-20] MEDS: cloNIDine HCL 0.1 MG TABLET PO ×3 (01:55→21:17)
[2024-06-20] MEDS: metroNIDAZOLE 500 MG TABLET PO ×2 (01:55→14:56)
[2024-06-20 08:00] VITALS: BP 106/80; PULSE 87; RESP 16; TEMP 37.1; O2SAT 95
[2024-06-20] MEDS: Cariprazine HCl 1.5 MG CAPSULE 4.5 MG PO (08:36)
[2024-06-20] MEDS: Ascorbic Acid 500 MG TABLET 1000 MG PO (08:36)
[2024-06-20] MEDS: Phenazopyridine HCL 100 MG TABLET PO ×2 (08:36→11:05)
[2024-06-20] MEDS: buPROPion HCl XL 300 MG TAB.ER.24H PO (08:37)
[2024-06-20] MEDS: BUPRENORPHINE 75 MCG 1 EACH PO (08:37)
[2024-06-20] MEDS: hydrOXYzine HCL 25 MG TABLET PO ×2 (11:05→19:09)
--- NOTE | 2024-06-20 17:23 | HO.PSYCHPN ---
Subjective Subjective Date of Service: 06/20/24 Reason For Visit: Sa Interim History: Met with patient; discussed with team; reviewed chart; talked with urology Over the weekend, patient assessed for infection, starting antibiotic; concerned that indwelling Van catheter is not sustainable; urology consulted and plan was for suprapubic catheter insertion for today. Patient however did not get fully informed of this and was upset to learn that a procedure was planned. She was however able to discuss this at length with program writer and urology team and agreed to proceed. Mental Status Exam Mental Status Exam Narrative: Pt is alert and oriented; behavior is cooperative, friendly and calm; patient in physical pain; cachectic; dressed in hospital attire with unkempt hair but adequate hygiene; mood is described as pissed and affect congruent, downcast; eye contact appropriate; Speech is a normal rate, volume and prosody; intermittent psychomotor retardation present; thought process is organized and goal directed; Thought content is on feeling defeated, in despair, worried will not get better; also on tx; otherwise pertinent to relevant topics and without any delusional content, paranoid ideations or grandiosity; positive for SI; no HI. There is no evidence of perceptual disturbance. Patients insight and judgment impaired Diagnostics Vital Signs (24Hr): Vital Signs - 24 hr 06/19/24 20:00 06/19/24 21:34 06/20/24 01:55 Temperature 98.7 F Pulse Rate 103 H Respiratory Rate 16 Blood Pressure 136/95 H 138/91 H 156/104 H Pulse Oximetry 97 Oxygen Delivery Method Room Air 06/20/24 08:00 Temperature 98.7 F Pulse Rate 87 Respiratory Rate 16 Blood Pressure 106/80 Pulse Oximetry 95 Oxygen Delivery Method Room Air BMI result Body Mass Index 17.2 Labs 06/06/24 08:20 06/06/24 08:20 Labs: Laboratory Results - last 48 hr 06/19/24 11:53 Urine Color Dark Yellow Urine Appearance Clear Urine pH 6.0 Ur Specific [place] 1.010 Urine Protein Negative Urine Glucose (UA) 100 H Urine Ketones Negative Urine Blood Negative Urine Nitrite Positive H Ur Leukocyte Esterase Large (3+) H Urine RBC 0-2 Urine WBC 21-50 H Ur Squamous Epith Cells 0-2 Urine Bacteria 2+ Hyaline Casts 0-2 Imaging Radiology Impressions: ITS Impressions KUB X-Ray 06/03/24 19:55 IMPRESSION: Increased amount of stool in the colon suggesting constipation. Please correlate with clinical presentation. Electronically signed by: Oneida Pham MD 06/04/2024 07:31 AM EDT RP Renal Ultrasound 06/04/24 14:49 IMPRESSION: No ultrasound evidence of renal obstruction or hydronephrosis. Limited visualization of the left kidney obscured by bowel gas, exam otherwise unremarkable. Electronically signed by: Oneida Pham MD 06/05/2024 12:56 PM EDT RP Abdomen/Pelvis CT 06/04/24 18:33 IMPRESSION: Severe constipation. Otherwise unremarkable CT abdomen and pelvis. Fleischner guidelines were followed. Electronically signed by: Deyvi Collins MD 06/04/2024 07:05 PM EDT RP Ribs X-Ray 06/19/24 10:15 IMPRESSION: 1. Mild degenerative changes of the left shoulder. 2. No left-sided rib fracture. Electronically signed by: Orlando Lindsey MD 06/19/2024 10:50 AM EDT RP Shoulder X-Ray 06/19/24 10:15 IMPRESSION: 1. Mild degenerative changes of the left shoulder. 2. No left-sided rib fracture. Electronically signed by: Orlando Lindsey MD 06/19/2024 10:50 AM EDT RP Medications Medications Current Medications Acetaminophen (Acetaminophen 325 Mg Tablet) 650 mg PO Q6H PRN PRN Reason: Headache/Pain Mild Scale (1-3) Last Admin: 06/18/24 22:08 Dose: 650 mg Al Hydroxide/Mg Hydroxide (Magnesium Hydrox/Alum Hydrox 30 Ml Oral.Susp) 30 ml PO Q6H PRN PRN Reason: Heartburn/Nausea Albuterol Sulfate (Albuterol Sulfate 90 Mcg 8 Gm Inhaler) 2 puff INHALE QID PRN PRN Reason: Shortness Of Breath Ascorbic Acid (Ascorbic Acid 500 Mg Tablet) 1,000 mg PO DAILY [facility] Last Admin: 06/20/24 08:36 Dose: 1,000 mg Bisacodyl (Bisacodyl 5 Mg Tablet.Dr) 10 mg PO BEDTIME [facility] Last Admin: 06/19/24 21:34 Dose: 10 mg Bupropion HCl (Bupropion Hcl Xl 300 Mg Tab.Er.24h) 300 mg PO DAILY [facility] Last Admin: 06/20/24 08:37 Dose: 300 mg Cariprazine (Cariprazine Hcl 1.5 Mg Capsule) 4.5 mg PO DAILY [facility] Last Admin: 06/20/24 08:36 Dose: 4.5 mg Clonidine HCl (Clonidine Hcl 0.1 Mg Tablet) 0.1 mg PO BEDTIME [facility]; Protocol Last Admin: 06/19/24 21:34 Dose: 0.1 mg Clonidine HCl (Clonidine Hcl 0.1 Mg Tablet) 0.1 mg PO Q4H PRN; Protocol PRN Reason: anxiety Last Admin: 06/20/24 01:55 Dose: 0.1 mg Hydroxyzine HCl (Hydroxyzine Hcl 25 Mg Tablet) 25 mg PO Q6H PRN PRN Reason: Anxiety Last Admin: 06/20/24 11:05 Dose: 25 mg Ibuprofen (Ibuprofen 600 Mg Tablet) 600 mg PO Q6H PRN PRN Reason: Pain, Severe (Pain Scale 7-10) Last Admin: 06/19/24 08:46 Dose: 600 mg Lactulose (Lactulose 20 Gm/30 Ml Solution) 40 gm PO DAILY [facility] Last Admin: 06/20/24 08:52 Dose: Not Given Lidocaine (Lidocaine 4 % Patch Adh..Patch) 1 patch TRANSDERMA DAILY [facility]; Protocol Last Admin: 06/20/24 08:52 Dose: Not Given Lidocaine HCl (Lidocaine Hcl 2 % Urojet 10 Ml Jel.Pf.Luis) 10 ml TOPICAL BID PRN PRN Reason: Pain, Severe (Pain Scale 7-10) Last Admin: 06/19/24 22:05 Dose: 10 ml Loperamide HCl (Loperamide Hcl 2 Mg Capsule) 2 mg PO Q4H PRN PRN Reason: Diarrhea Magnesium Hydroxide (Milk Of Magnesia 30 Ml Oral.Susp) 30 ml PO DAILY PRN PRN Reason: Constipation Last Admin: 06/04/24 05:22 Dose: 30 ml Metronidazole (Metronidazole 500 Mg Tablet) 500 mg PO Q12H [facility] Stop: 06/25/24 15:44 Last Admin: 06/20/24 14:56 Dose: 500 mg Multi-Ingred Cream/Lotion/Oil/Oint (Mineral Oil/Petrolatum,White 106 Gm Tube) 1 appl TOPICAL BID PRN; Protocol PRN Reason: Dry Skin Last Admin: 06/13/24 21:44 Dose: 1 appl Patient Own (Belbuca (75mcg Buccal Films)) 1 each PO BID [facility] Last Admin: 06/20/24 08:37 Dose: 1 each Ondansetron HCl (Ondansetron Odt 4 Mg Tab.Rapdis) 4 mg TRANSLINGU Q6H PRN PRN Reason: Nausea and Vomiting Last Admin: 06/18/24 16:17 Dose: 4 mg Polyethylene Glycol (Polyethylene Glycol 3350 17 Gm Powd.Pack) 17 gm PO BID [facility] Last Admin: 06/20/24 08:53 Dose: Not Given Quetiapine Fumarate (Quetiapine Fumarate 50 Mg Tablet) 50 mg PO BEDTIME [facility] Last Admin: 06/19/24 21:33 Dose: 50 mg Senna/Docusate Sodium (Sennosides/Docusate Sodium Tablet) 2 tab PO BID [facility] Last Admin: 06/20/24 08:53 Dose: Not Given Simethicone (Simethicone 80 Mg Tab.Chew) 160 mg PO BID PRN PRN Reason: bloating/gas Last Admin: 06/07/24 11:06 Dose: 160 mg Tamsulosin HCl (Tamsulosin Hcl 0.4 Mg Capsule) 0.4 mg PO BEDTIME [facility] Last Admin: 06/19/24 21:34 Dose: 0.4 mg Allergies Allergies Allergy/AdvReac Type Severity Reaction Status Date / Time azithromycin Allergy Itching Verified 05/25/24 19:31 levofloxacin [From Levaquin] Allergy Nightmare Verified 05/25/24 19:31 nitrofurantoin Allergy Itching Verified 05/25/24 19:31 [From Macrodantin] Assessment & Plan Assessment & Plan (1) MDD (major depressive disorder), recurrent episode, moderate: Status: Acute Code(s): F33.1 - Major depressive disorder, recurrent, moderate (2) PTSD (post-traumatic stress disorder): Status: Acute Code(s): F43.10 - Post-traumatic stress disorder, unspecified (3) Osteogenesis imperfecta: Status: Acute Code(s): Q78.0 - Osteogenesis imperfecta (4) Jennifer-Danlos disease: Status: Acute Code(s): Q79.60 - Jennifer-Danlos syndrome, unspecified (5) Chronic pain syndrome: Status: Acute Code(s): G89.4 - Chronic pain syndrome (6) Indwelling Van catheter present: Status: Acute Code(s): Z97.8 - Presence of other specified devices (7) Urinary retention: Status: Acute Code(s): R33.9 - Retention of urine, unspecified (8) Voiding dysfunction: Status: Acute Code(s): N39.8 - Other specified disorders of urinary system Plan HPI: Patient is a 39-year-old female with history of Jennifer Danlos syndrome, osteogenesis imperfecta, myofascial pain syndrome, migraines, juvenile osteoporosis, asthma, and mood disorder with history of rectocele, vaginal mesh surgery, urinary retention requiring Van catheterization, which was recently restarted. Patient?presented?to?[facility]?on?924?following?intentional?overdose?on?muscle?relaxers.??Patient?however?was?immediately?transferred?to?medical?floor?for?urinary?retention;?she?stabilized?there?and?was?discharged.?? She?presents?again?for?overdose On?gabapentin?and?trazodone,?Which?she?asserts?was?not?intentional (though later admits it was),?saying?she?just?wanted?to?sleep?and?get?relief?from?chronic?pain However?she?agrees?it?was?impulsive?and?unsafe.??Patient?currently?denies?any?SI.??She?reports?however?that?life?has?been?very?difficultff?pain?medications,?having?been?prescribed?opioids?consistently?for?the?past?24?years,? as?well?as?Ativan.??Patient?agrees?she?needs Help?stabilizing?and?coping. Relevant Medical/psych History: Patient was on opiates scheduled for 24 years to manage chronic medical comorbidities, resulting in hx of multiple fractures/falls and subsequent chronic pain. Pt denies any hx of substance abuse, including cannabis. She did screen positive for Fentanyl at first admission in October 2024 but is adamant she's never used it in her life and no quantitative labs done (leaving Fentanyl use inconclusive). Patients long-time physician of [address] Brigido Dietrich retired and new PCP tapered her off and discontinued all opioid pain management (also tapered and dc'd ativan). Patient reports she has been in constant pain and discomfort since then and has felt very frustrated and challenged to enjoy life, sometimes challenging her desire to live. Discussed?case?with?LIQUID NATURAL G[employer] PLANT OPERATOR Vianey Dunaway from pain management clinic: pt seen on 05/24. LI[employer] NAT[employer] G[employer] PL[employer] OPERATOR Gume agrees that patients medical comorbidities and subsequent chronic pain syndrome are commonly treated with opioid pain management. She recommends either Butrans patch or preferably Belbucha films (a form of Buprenorphin and titrating it to 150mg BID). Pt is also appropriate to get other nerve blocking treatments at pain clinic who will f/u with pt. Cathead Operator spoke with patient's PCP Dr. Rubio at [facility] Dr. Rubio reports concurs that patient has Osteogenesis imprefecta, Ehlos Danlos Pt was on opioids for 24 years with prior PCP. With [facility] she was on Oxycodine 30mg QID and Oxycontin 30mg daily. In Sep 2023 pt was admitted to [facility] for concern for overdose. Additionally, there were other concerns including that [facility] notes referenced that patient reported being on a Fentanyl patch, which this provider had never prescribed. Additionally, there was hx of patient needing refills early and a report that her mother had used some of her medications. Also patient had significant weight loss which provider was concerned might have contributed to possible accidental overdose. Because of these concerns provider, clinic repeatedly called patient to come in and discuss pain management and reportedly reached out to her from October until January however patient did not respond or come in for appointments, having missed several. Provider reports that because of lack of communication and ongoing concern that was never addressed, Provider felt it was necessary to taper patient off pain medication which was started in January; patient was also tapered off Ativan. Provider agrees that patient does have significant medical history that is commonly treated with chronic pain medication. Cathead Operator discussed options with them and Dr. Rubio agrees that starting patient on a buprenorphine product is an acceptable alternative to oxycodone. Vraylar since depressed and hx of manic-esque IMPRESSION: Patient's?depression?and?SI?seem?to?have significant?situational component?as?she?is?No?longer?receiving?pain?management?for?severe,?chronic?pain. Patient?has?no?known?history?of?substance?abuse.??Although?she?did?screen?positive?for?fentanyl (on?10/27/2023 and?05/18/2024), No?quantitative?analysis?was?done. ?This?mean that?fentanyl?screen?could?very?well?be?a?false-positive?result (which is not uncommon). Medical?decision?should?not?be?based?on?only?a?positive?screen?for?fentanyl. Patient does struggle with SI and with her chronic?pain?And?poor?support?will?likely?continue?to?produce?mood?instability.??Treatment?plan?will?include?program writer/team?discussion?with Outpatient?PCP?regarding?plan?for?treatment. Hospital course: 06/05: Continue current regimen and plans 06/06. Continue current plans and regimen. Loperamide was put on hold. Started on simethicone by hospitalist. No indications of GI bleeding currently. -seen by GI: C/o constipation and worsening abdominal distension. Will order CT A/P with IV/PO contrast to assess for SBO/ileus though passage of gas and small amount of stool argues against complete obstruction; however she is at risk given multiple surgeries. If no obstruction will order bowel regimen to address constipation. Continue Van, Urology following. 06/07 Patient reports that she is depressed. She apologized for not being more forthcoming earlier on in says it took her awhile to admitted to herself but she does not want to be in this world anymore... And has a plan to jump in front of a train on discharge. Patient also reports that overdose on trazodone/gabapentin was actually an intentional suicide attempt. She reports a constant deluge of self-deprecating thoughts which include that she is worthless, discussed in, and fat. Cathead Operator reviewed patient's history of anorexia and patient reports she sees herself as fat every day and eats very little (history of anorexia since 14 years old; was at brought up oral for a month with a feeding tube; she understands that this is a significant cause of her chronic constipation). Despite her SI, patient does want help getting better agrees to try antidepressant medication; program writer reviewed options and risks/side effects and patient with Vraylar. Also discussed pain medication management and patient agrees with Belbuca which she has heard of; she also agrees to non opioid pain management and will follow-up with pain management Clinic here at [facility]. Discussed relationship with her mother and she does not SA think her mother struggles with drug addiction but has caught her trying to get into her room, which patient keeps locked, looking for her medications which she has taken in the past. Patient said she reported this to her PCP. Patient does have history of being prescribed fentanyl patch however she did not like them and weaned herself off of them; set had some left over 06/08 Patient remains depressed with suicidal thinking however is trying to be hopeful and has tolerated Vraylar and says will continue, with increased dose; grateful for help getting Belbuca through prior authorization. -Discussed case with urology who recommends remaining with indwelling Van since failed voiding attempt on 06/03; will continue to follow -pt reported and nurse corroborated that Van bag containing urine was blood-tinged; discussed with Urologist, deemed likely micro trauma, and to keep van in place; recently failed voiding trial on 06/03 06/09 Patient reports she remains depressed, with SI. Patient also reports she had a very difficult time sleeping last night feeling very upset following a conversation she had on the phone with her mother. Patient expressed to her mother she is feeling hurt that her mom has not visited or called throughout her admission, even on patient's birthday; she says her mom was on apologetic. Patient also challenged her mom regarding her mom's past comment that patient could burn in hell with her father (who 2 years ago); mom remained unapologetic. Patient tells program writer she has no idea why her mom said this other than that her mom is crazy... Subsequently patient reports that throughout the night, she had racing thoughts and no sleep. Discussed medications and patient and pt is eager to try Belbuca Films for pain management, available today dc'd gabapentin; pt said has never helped for pain or anxiety Adding clonidine at bedtime to help w/ sleep, anxiety 06/10 patient reports that Belbuca is helping with pain Patient remains very depressed and continues to have suicidal thoughts, saying she wants to end her life when she leaves the hospital. Patient Says I do not understand myself.. And laments she is gone most of her life without any suicidal ideation and only started this past September. Patient shared about some other reasons that it might be occurring and agrees that she still mourning the loss of her father who was her confidante; dealing with chronic pain having been off pain medications for several months and the ongoing struggles in her relationship with her mother and brother whom she feels are bullying; trying to come to terms with the fact that her mother simply isn't going to be the kind of mother she wishes she had. Patient agrees to medication management. 06/13 still very depressed with SI. Sleeping better however which is helpful and pain medications are also helpful. Patient agrees to increasing Vraylar; agrees to behavioral activation and attending groups. Despite ongoing thoughts about self-harm and ending her life when she is discharge, patient is also future oriented and says she would like to find a new place to live separate from her mother and brother. Asks for help going about that. 06/14 pt remains depressed, positive for SI with a plan but also future oriented talking about changing her living situation. Pt is engaged in treatment, trying to process her suicidal feelings and trying to be hopeful it will resolve. Agrees to adding Wellbutrin. -will likely add Wellbutrin; however, will probably keep Vraylar (maybe at lower dose) since pt has hx of manic-esque episodes (thought not formally diagnosed with bipolar as episode had several contributory factors) 06/15 remains depressed but processing feelings, doing worksheets, talking about her mother. Pt very anxious. -may increase wellbutrin for depression -considered starting Clonazepam 0.5mg BID; pt used to be on as much as 5mg of ativan daily; was weened off so hesitant to restart benzo's; 06/17 increase Wellbutrin 06/20 Over the weekend, patient assessed for infection, starting antibiotic; concerned that indwelling Van catheter is not sustainable; urology consulted and plan was for suprapubic catheter insertion for today. Patient however did not get fully informed of this and was upset to learn that a procedure was planned. She was however able to discuss this at length with program writer and urology team and agreed to proceed. PLAN: CV? One-to-one?since?indwelling?Van Continue WEllbutrin XL 150mg for continued depression (pt adamant about not starting anti-depressant with risk of wt gain) Continue Vraylar 4.5 mg daily (Vraylar chosen since patient has depression but also history of manic type behaviors, possibly manic episode with some delusions and AH) Continue Belbuca 75mcg films BID for pain management (history of fentanyl patch, morphine, oxycodone, OxyContin) clonidine prn Flagyl 500 q.12 hours x7 days placed for bacterial vaginosis. Hospitalist note 06/18 Receiving Pyridium UA 06/18 positive for 4+ bacteria, greater than 50 WBC, large leukocyte esterase positive nitrates Urine culture pending Urine culture 05/25 and 06/01 grew Raissa glabrata patient received Diflucan 200 mg daily from 06/01 through 06/15 Bacterial vaginosis PCR positive Raissa grew size/glabrata detected Due to persistent symptoms of vaginal pain/discharge recommend Infectious Disease consultation Follow urine culture. Patient educated on: diagnosis, medication risk/benefits and medical condition Informed Consent: understands Reason for continued inpatient stay Substantial Risk for: rapid decompensation Time Spent With Patient Time: Total time managing care of this patient today ____ minutes.
[2024-06-20 19:04] LABS: HCG Quantitative < 2 mIU/mL
[2024-06-20 19:09] VITALS: BP 157/108
[2024-06-20 20:00] VITALS: BP 154/98; PULSE 98; RESP 16; TEMP 36.7; O2SAT 98
[2024-06-20] MEDS: Tamsulosin HCL 0.4 MG CAPSULE PO (21:16)
[2024-06-20] MEDS: QUEtiapine Fumarate 50 MG TABLET PO (21:16)
[2024-06-20 21:17] VITALS: BP 146/95
[2024-06-21 02:52] VITALS: BP 149/99
[2024-06-21] MEDS: hydrOXYzine HCL 25 MG TABLET PO (02:52)
[2024-06-21] MEDS: cloNIDine HCL 0.1 MG TABLET PO ×3 (02:52→21:53)
[2024-06-21] MEDS: Acetaminophen 325 MG TABLET 650 MG PO (02:52)
[2024-06-21] MEDS: metroNIDAZOLE 500 MG TABLET PO ×2 (02:52→18:41)
--- NOTE | 2024-06-21 07:10 | PC.NURSE ---
Patient has been NPO since midnight.
[2024-06-21 07:51] VITALS: BP 128/53; PULSE 86; TEMP 36.9; O2SAT 96
[2024-06-21] MEDS: Cariprazine HCl 1.5 MG CAPSULE 4.5 MG PO (08:55)
[2024-06-21] MEDS: buPROPion HCl XL 300 MG TAB.ER.24H PO (08:55)
[2024-06-21] MEDS: BUPRENORPHINE 75 MCG 1 EACH PO ×2 (09:14→21:53)
[2024-06-21 10:48] VITALS: BP 144/91
[2024-06-21 12:00] VITALS: BP 145/94; PULSE 99; RESP 16; TEMP 36.8; O2SAT 99
[2024-06-21 20:00] VITALS: BP 134/86; PULSE 65; TEMP 36.3; O2SAT 99
[2024-06-21 21:53] VITALS: BP 134/86
[2024-06-21] MEDS: Tamsulosin HCL 0.4 MG CAPSULE PO (21:53)
[2024-06-21] MEDS: bisacodyL 5 MG TABLET.DR 10 MG PO (21:53)
[2024-06-21] MEDS: Sennosides/Docusate Sodium TABLET 2 TAB PO (21:53)
[2024-06-21] MEDS: QUEtiapine Fumarate 50 MG TABLET PO (21:53)
--- NOTE | 2024-06-21 21:55 | P.CNID_ITS ---
History of Present Illness Data of Consult Service Date: 06/20/24 Requesting physician: Aurelio Hermosillo Primary Care Provider: None Physician HPI Reason for consult: pelvic discomfort She presents with fever and chills as well as sore throat. She had temperature to 103. She has Jennifer Danlos and has had bladder and uterine prolapse. Review of Systems 2 Review of Systems: Yes all other systems are reviewed and are negative PMFSH Past Medical History Medical History MDD (major depressive disorder), recurrent episode, moderate Benzodiazepine dependence Rectocele Juvenile osteoporosis Compression fx, lumbar spine History of wrist fracture Myofascial pain syndrome Anxiety and depression Family History Family history: reviewed and not pertinent Social History Social History Household Members: Family Household Members Other:: mom Housing: House Do you presently have visiting nurse or other home services: No Alcohol intake: former Patient Tobacco Use Status: Former Tobacco user Tobacco use type: Cigarette Cigarette Packs Per Day: 2 Cigarettes Per Day: 40.0 Years Smoked: Over 20 years e-Cigarette/Vaping Use: Never Used Second Hand Smoke Exposure: No Use of substances other than those prescribed or required for medical reasons: No Substance Use Type: Opiates Are you DNR?: No Advance Directives: No Advance Directives Information Provided: Yes Patient : No service: No Sexual orientation: Straight/Heterosexual Meds Allergies Allergy/AdvReac Type Severity Reaction Status Date / Time azithromycin Allergy Itching Verified 06/21/24 12:35 levofloxacin [From Levaquin] Allergy Nightmare Verified 06/21/24 12:35 nitrofurantoin Allergy Itching Verified 06/21/24 12:35 [From Macrodantin] Active Medications: Current Medications Acetaminophen (Acetaminophen 325 Mg Tablet) 650 mg PO Q6H PRN PRN Reason: Headache/Pain Mild Scale (1-3) Last Admin: 06/21/24 02:52 Dose: 650 mg Al Hydroxide/Mg Hydroxide (Magnesium Hydrox/Alum Hydrox 30 Ml Oral.Susp) 30 ml PO Q6H PRN PRN Reason: Heartburn/Nausea Albuterol Sulfate (Albuterol Sulfate 90 Mcg 8 Gm Inhaler) 2 puff INHALE QID PRN PRN Reason: Shortness Of Breath Ascorbic Acid (Ascorbic Acid 500 Mg Tablet) 1,000 mg PO DAILY [facility] Last Admin: 06/21/24 09:08 Dose: Not Given Bisacodyl (Bisacodyl 5 Mg Tablet.Dr) 10 mg PO BEDTIME ELMO Last Admin: 06/20/24 21:19 Dose: Not Given Bupropion HCl (Bupropion Hcl Xl 300 Mg Tab.Er.24h) 300 mg PO DAILY [facility] Last Admin: 06/21/24 08:55 Dose: 300 mg Cariprazine (Cariprazine Hcl 1.5 Mg Capsule) 4.5 mg PO DAILY [facility] Last Admin: 06/21/24 08:55 Dose: 4.5 mg Clonidine HCl (Clonidine Hcl 0.1 Mg Tablet) 0.1 mg PO BEDTIME [facility]; Protocol Last Admin: 06/20/24 21:17 Dose: 0.1 mg Clonidine HCl (Clonidine Hcl 0.1 Mg Tablet) 0.1 mg PO Q4H PRN; Protocol PRN Reason: anxiety Last Admin: 06/21/24 10:48 Dose: 0.1 mg Hydroxyzine HCl (Hydroxyzine Hcl 25 Mg Tablet) 25 mg PO Q6H PRN PRN Reason: Anxiety Last Admin: 06/21/24 02:52 Dose: 25 mg Ibuprofen (Ibuprofen 600 Mg Tablet) 600 mg PO Q6H PRN PRN Reason: Pain, Severe (Pain Scale 7-10) Last Admin: 06/19/24 08:46 Dose: 600 mg Lactulose (Lactulose 20 Gm/30 Ml Solution) 40 gm PO DAILY [facility] Last Admin: 06/21/24 09:08 Dose: Not Given Lidocaine (Lidocaine 4 % Patch Adh..Patch) 1 patch TRANSDERMA DAILY [facility]; Protocol Last Admin: 06/21/24 09:08 Dose: Not Given Lidocaine HCl (Lidocaine Hcl 2 % Urojet 10 Ml Jel.Pf.Luis) 10 ml TOPICAL BID PRN PRN Reason: Pain, Severe (Pain Scale 7-10) Last Admin: 06/19/24 22:05 Dose: 10 ml Loperamide HCl (Loperamide Hcl 2 Mg Capsule) 2 mg PO Q4H PRN PRN Reason: Diarrhea Magnesium Hydroxide (Milk Of Magnesia 30 Ml Oral.Susp) 30 ml PO DAILY PRN PRN Reason: Constipation Last Admin: 06/04/24 05:22 Dose: 30 ml Metronidazole (Metronidazole 500 Mg Tablet) 500 mg PO Q12H [facility] Stop: 06/25/24 15:44 Last Admin: 06/21/24 18:41 Dose: 500 mg Multi-Ingred Cream/Lotion/Oil/Oint (Mineral Oil/Petrolatum,White 106 Gm Tube) 1 appl TOPICAL BID PRN; Protocol PRN Reason: Dry Skin Last Admin: 06/13/24 21:44 Dose: 1 appl Patient Own (Belbuca (75mcg Buccal Films)) 1 each PO BID [facility] Last Admin: 06/21/24 09:14 Dose: 1 each Ondansetron HCl (Ondansetron Odt 4 Mg Tab.Rapdis) 4 mg TRANSLINGU Q6H PRN PRN Reason: Nausea and Vomiting Last Admin: 06/18/24 16:17 Dose: 4 mg Polyethylene Glycol (Polyethylene Glycol 3350 17 Gm Powd.Pack) 17 gm PO BID [facility] Last Admin: 06/21/24 09:09 Dose: Not Given Quetiapine Fumarate (Quetiapine Fumarate 50 Mg Tablet) 50 mg PO BEDTIME [facility] Last Admin: 06/20/24 21:16 Dose: 50 mg Senna/Docusate Sodium (Sennosides/Docusate Sodium Tablet) 2 tab PO BID [facility] Last Admin: 06/21/24 09:09 Dose: Not Given Simethicone (Simethicone 80 Mg Tab.Chew) 160 mg PO BID PRN PRN Reason: bloating/gas Last Admin: 06/07/24 11:06 Dose: 160 mg Tamsulosin HCl (Tamsulosin Hcl 0.4 Mg Capsule) 0.4 mg PO BEDTIME [facility] Last Admin: 06/20/24 21:16 Dose: 0.4 mg Home Medications ?Medication ?Instructions ?Recorded ?Confirmed ?Last Taken ?Type albuterol sulfate 90 mcg/actuation 2 puff inhalation QID PRN 05/18/24 05/26/24 Unknown History aerosol inhaler Shortness Of Breath gabapentin 100 mg capsule 100 mg PO DAILY PRN nerve pain 05/18/24 05/26/24 Unknown History gabapentin 100 mg capsule 200 mg PO BEDTIME 05/18/24 05/26/24 05/25/24 History ibuprofen 800 mg tablet 800 mg PO TID PRN Pain (Scale 05/18/24 05/26/24 Unknown History Score 4-6) lorazepam 0.5 mg tablet 0.25 mg PO BID PRN anxiety 05/18/24 05/26/24 Unknown History ascorbic acid (vitamin C) 1,000 mg 1,000 mg PO DAILY 05/26/24 05/26/24 Unknown History tablet (Vitamin C) Physical Exam 2 Vital Signs: Vital Signs: Last Vital Signs Temp 98.2 F 06/21/24 12:00 Pulse 99 06/21/24 12:00 Resp 16 06/21/24 12:00 BP 145/94 H 06/21/24 12:00 Pulse Ox 99 06/21/24 12:00 O2 Del Method Room Air 06/21/24 12:00 BMI result Body Mass Index 17.2 Const: General: cooperative HEENT: Head: Yes normal to inspection Face and sinus: Yes normal facial exam Mouth: Normal oral and palatal mucosa present Teeth and gingiva: d entition normal Eyes: General: appearance normal, both eyes and all related structures P upils: Equal, round and reactive pupils present Resp: Effort & Inspection: normal respiratory effort Cardio: Rate: regular rate Rhythm: regular rhythm GI: Palpation (GI): Soft to palpation and nontender : General: Yes no CVA tenderness Back/Spine/Pelvis: Back: no CVA tenderness Skin: General skin exam: no rashes or lesions noted Neuro: General: moves all extremities Cranial nerves: Yes Equal, round and reactive pupils present Extrem: General: Yes normal to inspection Psych: Appearance: grossly normal Results Labs 06/06/24 08:20 06/06/24 08:20 Microbiology Microbiology Results: Microbiology 06/18/24 Unknown Urine Catheterized - Joseph Catheter Urine Culture - Final Escherichia coli Stenotrophomonas maltophilia 06/01/24 18:19 Urine clean catch - Clean Catch Midstream Urine Culture - Final Raissa glabrata 05/29/24 15:10 Urine Catheterized - Joseph Catheter Urine Culture - Final No growth. 05/25/24 20:16 Urine Catheterized - Joseph Catheter Urine Culture - Final Raissa glabrata Assessment and Plan (1) Voiding dysfunction: Status: Acute She has no urinary concerns at this time No further antibiotics for now
[2024-06-22] VITALS (7 sets, daily range): BP systolic 119–151; BP diastolic 81–91; PULSE 83–103; TEMP 36.3–36.8; O2SAT 97
[2024-06-22] MEDS: hydrOXYzine HCL 25 MG TABLET PO ×2 (02:30→10:55)
[2024-06-22] MEDS: cloNIDine HCL 0.1 MG TABLET PO ×4 (03:24→22:14)
[2024-06-22] MEDS: Acetaminophen 325 MG TABLET 650 MG PO (03:24)
[2024-06-22] MEDS: Ascorbic Acid 500 MG TABLET 1000 MG PO (08:51)
[2024-06-22] MEDS: Cariprazine HCl 1.5 MG CAPSULE 4.5 MG PO (08:51)
[2024-06-22] MEDS: buPROPion HCl XL 300 MG TAB.ER.24H PO (08:51)
[2024-06-22] MEDS: metroNIDAZOLE 500 MG TABLET PO ×2 (08:51→22:15)
[2024-06-22] MEDS: Sennosides/Docusate Sodium TABLET 2 TAB PO (08:51)
[2024-06-22] MEDS: BUPRENORPHINE 75 MCG 1 EACH PO ×2 (09:27→22:24)
--- NOTE | 2024-06-22 09:43 | P.PNPSI_ITS ---
Subjective Subjective Date of Service: 06/21/24 Reason For Visit: Sa Interim History: Late entry note for pt seen on 06/21/24; discussed with team; software writer discussed with urology Urology again met with patient and Dr. Niño decided better to do a cystoscopy 1st rather than suprapubic catheter insertion and perhaps patient would be able to get a bladder stimulator. Urology and software writer discuss this with patient who understood and agreed to the procedure. She continues to feel that Wellbutrin is helpful and continues to fight off despairing thoughts though they remain and when patient gets triggered, she feels very much like ending her life. Patient working on coping skills. Feels that all this stress of making decisions regarding catheter is wearing on her bringing up feelings that life is not worth living Mental Status Exam Mental Status Exam Narrative: Pt is alert and oriented; behavior is cooperative, friendly and calm; patient in physical pain; cachectic; dressed in hospital attire with unkempt hair but adequate hygiene; mood is described as not good and affect congruent, downcast; eye contact appropriate; Speech is a normal rate, volume and prosody; intermittent psychomotor retardation present; thought process is organized and goal directed; Thought content is on feeling defeated, in despair, worried will not get better; also on tx; otherwise pertinent to relevant topics and without any delusional content, paranoid ideations or grandiosity; positive for SI; no HI. There is no evidence of perceptual disturbance. Patients insight and judgment impaired Diagnostics Vital Signs (24Hr): Vital Signs - 24 hr 06/21/24 10:48 06/21/24 12:00 06/21/24 20:00 Temperature 98.2 F 97.3 F Pulse Rate 99 65 Respiratory Rate 16 Blood Pressure 144/91 H 145/94 H 134/86 Pulse Oximetry 99 99 Oxygen Delivery Method Room Air Room Air 06/21/24 21:53 06/22/24 03:24 06/22/24 08:07 Temperature 98.2 F Pulse Rate 83 Respiratory Rate Blood Pressure 134/86 122/86 139/85 Pulse Oximetry 97 Oxygen Delivery Method Room Air BMI result Body Mass Index 17.2 Labs 06/06/24 08:20 06/06/24 08:20 Labs: Laboratory Results - last 48 hr 06/20/24 18:18 Hold Purple Top SEE NOTE Beta HCG, Quant < 2 Imaging Radiology Impressions: ITS Impressions KUB X-Ray 06/03/24 19:55 IMPRESSION: Increased amount of stool in the colon suggesting constipation. Please correlate with clinical presentation. Electronically signed by: Oneida Pham MD 06/04/2024 07:31 AM EDT RP Renal Ultrasound 06/04/24 14:49 IMPRESSION: No ultrasound evidence of renal obstruction or hydronephrosis. Limited visualization of the left kidney obscured by bowel gas, exam otherwise unremarkable. Electronically signed by: Oneida Pham MD 06/05/2024 12:56 PM EDT RP Abdomen/Pelvis CT 06/04/24 18:33 IMPRESSION: Severe constipation. Otherwise unremarkable CT abdomen and pelvis. Fleischner guidelines were followed. Electronically signed by: Deyvi Collins MD 06/04/2024 07:05 PM EDT RP Ribs X-Ray 06/19/24 10:15 IMPRESSION: 1. Mild degenerative changes of the left shoulder. 2. No left-sided rib fracture. Electronically signed by: Orlando Lindsey MD 06/19/2024 10:50 AM EDT RP Shoulder X-Ray 06/19/24 10:15 IMPRESSION: 1. Mild degenerative changes of the left shoulder. 2. No left-sided rib fracture. Electronically signed by: Orlando Lindsey MD 06/19/2024 10:50 AM EDT RP Medications Medications Current Medications Acetaminophen (Acetaminophen 325 Mg Tablet) 650 mg PO Q6H PRN PRN Reason: Headache/Pain Mild Scale (1-3) Last Admin: 06/22/24 03:24 Dose: 650 mg Al Hydroxide/Mg Hydroxide (Magnesium Hydrox/Alum Hydrox 30 Ml Oral.Susp) 30 ml PO Q6H PRN PRN Reason: Heartburn/Nausea Albuterol Sulfate (Albuterol Sulfate 90 Mcg 8 Gm Inhaler) 2 puff INHALE QID PRN PRN Reason: Shortness Of Breath Ascorbic Acid (Ascorbic Acid 500 Mg Tablet) 1,000 mg PO DAILY [facility] Last Admin: 06/22/24 08:51 Dose: 1,000 mg Bisacodyl (Bisacodyl 5 Mg Tablet.Dr) 10 mg PO BEDTIME [facility] Last Admin: 06/21/24 21:53 Dose: 10 mg Bupropion HCl (Bupropion Hcl Xl 300 Mg Tab.Er.24h) 300 mg PO DAILY [facility] Last Admin: 06/22/24 08:51 Dose: 300 mg Cariprazine (Cariprazine Hcl 1.5 Mg Capsule) 4.5 mg PO DAILY [facility] Last Admin: 06/22/24 08:51 Dose: 4.5 mg Clonidine HCl (Clonidine Hcl 0.1 Mg Tablet) 0.1 mg PO BEDTIME [facility]; Protocol Last Admin: 06/21/24 21:53 Dose: 0.1 mg Clonidine HCl (Clonidine Hcl 0.1 Mg Tablet) 0.1 mg PO Q4H PRN; Protocol PRN Reason: anxiety Last Admin: 06/22/24 03:24 Dose: 0.1 mg Hydroxyzine HCl (Hydroxyzine Hcl 25 Mg Tablet) 25 mg PO Q6H PRN PRN Reason: Anxiety Last Admin: 06/22/24 02:30 Dose: 25 mg Ibuprofen (Ibuprofen 600 Mg Tablet) 600 mg PO Q6H PRN PRN Reason: Pain, Severe (Pain Scale 7-10) Last Admin: 06/19/24 08:46 Dose: 600 mg Lactulose (Lactulose 20 Gm/30 Ml Solution) 40 gm PO DAILY [facility] Last Admin: 06/22/24 08:52 Dose: Not Given Lidocaine (Lidocaine 4 % Patch Adh..Patch) 1 patch TRANSDERMA DAILY [facility]; Protocol Last Admin: 06/22/24 08:52 Dose: Not Given Lidocaine HCl (Lidocaine Hcl 2 % Urojet 10 Ml Jel.Pf.Luis) 10 ml TOPICAL BID PRN PRN Reason: Pain, Severe (Pain Scale 7-10) Last Admin: 06/19/24 22:05 Dose: 10 ml Loperamide HCl (Loperamide Hcl 2 Mg Capsule) 2 mg PO Q4H PRN PRN Reason: Diarrhea Magnesium Hydroxide (Milk Of Magnesia 30 Ml Oral.Susp) 30 ml PO DAILY PRN PRN Reason: Constipation Last Admin: 06/04/24 05:22 Dose: 30 ml Metronidazole (Metronidazole 500 Mg Tablet) 500 mg PO Q12H [facility] Stop: 06/25/24 20:01 Last Admin: 06/22/24 08:51 Dose: 500 mg Multi-Ingred Cream/Lotion/Oil/Oint (Mineral Oil/Petrolatum,White 106 Gm Tube) 1 appl TOPICAL BID PRN; Protocol PRN Reason: Dry Skin Last Admin: 06/13/24 21:44 Dose: 1 appl Patient Own (Belbuca (75mcg Buccal Films)) 1 each PO BID [facility] Last Admin: 06/22/24 09:27 Dose: 1 each Ondansetron HCl (Ondansetron Odt 4 Mg Tab.Rapdis) 4 mg TRANSLINGU Q6H PRN PRN Reason: Nausea and Vomiting Last Admin: 06/18/24 16:17 Dose: 4 mg Polyethylene Glycol (Polyethylene Glycol 3350 17 Gm Powd.Pack) 17 gm PO BID [facility] Last Admin: 06/22/24 08:55 Dose: Not Given Quetiapine Fumarate (Quetiapine Fumarate 50 Mg Tablet) 50 mg PO BEDTIME [facility] Last Admin: 06/21/24 21:53 Dose: 50 mg Senna/Docusate Sodium (Sennosides/Docusate Sodium Tablet) 2 tab PO BID [facility] Last Admin: 06/22/24 08:51 Dose: 2 tab Simethicone (Simethicone 80 Mg Tab.Chew) 160 mg PO BID PRN PRN Reason: bloating/gas Last Admin: 06/07/24 11:06 Dose: 160 mg Tamsulosin HCl (Tamsulosin Hcl 0.4 Mg Capsule) 0.4 mg PO BEDTIME [facility] Last Admin: 06/21/24 21:53 Dose: 0.4 mg Allergies Allergies Allergy/AdvReac Type Severity Reaction Status Date / Time azithromycin Allergy Itching Verified 06/21/24 12:35 levofloxacin [From Levaquin] Allergy Nightmare Verified 06/21/24 12:35 nitrofurantoin Allergy Itching Verified 06/21/24 12:35 [From Macrodantin] Assessment & Plan Assessment & Plan (1) Voiding dysfunction: Status: Acute Code(s): N39.8 - Other specified disorders of urinary system Plan HPI: Patient is a 39-year-old female with history of Jennifer Danlos syndrome, osteogenesis imperfecta, myofascial pain syndrome, migraines, juvenile osteoporosis, asthma, and mood disorder with history of rectocele, vaginal mesh surgery, urinary retention requiring Van catheterization, which was recently restarted. P atient?presented?to?[facility]?on?924?following?intentional?overdose?on?muscle?rel axers.??Patient?lujan mary?was?immediately?transferred?to?medical?floor?for?urinary?retention;?she?stab ilized?there?and?was?discharged.?? She?presents?again?for?overdose On?gabapentin?and?trazodone,?Which?she?asserts?was?not?intentional (though later admits it was),?saying?she?just?wanted?to?sleep?and?get?relief?from?chronic?pain H owever?she?agrees?it?was?impulsive?and?unsafe.??Patient?currently?denies?any?SI. ??She?reports?howeve r?that?life?has?been?very?difficultff?pain?medications,?having?been?prescribed?o pioids?consistently?for?the?past?24?years,? as?well?as?Ativan.??Patient?agrees?she?needs Help?stabilizing?and?coping. Relevant Medical/psych History: Patient was on opiates scheduled for 24 years to manage chronic medical comorbidities, resulting in hx of multiple fractures/falls and subsequent chronic pain. Pt denies any hx of substance abuse, including cannabis. She did screen positive for Fentanyl at first admission in October 2024 but is adamant she's never used it in her life and no quantitative labs done (leaving Fentanyl use inconclusive). Patients long-time physician of [address] Brigido Dietrich retired and new PCP tapered her off and discontinued all opioid pain management (also tapered and dc'd ativan). Patient reports she has been in constant pain and discomfort since then and has felt very frustrated and challenged to enjoy life, sometimes challenging her desire to live. Discussed?case?with?MAGDA Dunaway from pain management clinic: pt seen on 05/24. MAGDA Dunaway agrees that patients medical comorbidities and subsequent chronic pain syndrome are commonly treated with opioid pain management. She recommends either Butrans patch or preferably Belbucha films (a form of Buprenorphin and titrating it to 150mg BID). Pt is also appropriate to get other nerve blocking treatments at pain clinic who will f/u with pt. Education Administrator spoke with patient's PCP Dr. Rubio at [facility] Dr. Rubio reports concurs that patient has Osteogenesis imprefecta, Santos Damico Pt was on opioids for 24 years with prior PCP. With [facility] she was on Oxycodine 30mg QID and Oxycontin 30mg daily. In Sep 2023 pt was admitted to [facility] for concern for overdose. Additionally, there were other concerns including that [facility] notes referenced that patient reported being on a Fentanyl patch, which this provider had never prescribed. Additionally, there was hx of patient needing refills early and a report that her mother had used some of her medications. Also patient had significant weight loss which provider was concerned might have contributed to possible accidental overdose. Because of these concerns provider, clinic repeatedly called patient to come in and discuss pain management and reportedly reached out to her from October until January however patient did not respond or come in for appointments, having missed several. Provider reports that because of lack of communication and ongoing concern that was never addressed, Provider felt it was necessary to taper patient off pain medication which was started in January; patient was also tapered off Ativan. Provider agrees that patient does have significant medical history that is commonly treated with chronic pain medication. Education Administrator discussed options with them and Dr. Rubio agrees that starting patient on a buprenorphine product is an acceptable alternative to oxycodone. Vraylar since depressed and hx of manic-esque IMPRESSION: Patient's?depression?and?SI?seem?to?have significant?situational component?as?she?is?No?longer?receiving?pain?management?for?severe,?chronic?pain . P atient?has?no?known?history?of?substance?abuse.??Although?she?did?screen?positiv e?for?fentanyl (on?10/27/2023 and?05/18/2024), No?quantitative?analysis?was?done. ?This?mean that?fentanyl?screen?could?very?well?be?a?false-positive?result (which is not uncommon). Medical?decision?should?not?be?based?on?only?a?positive?screen?for?fentanyl. Patient does struggle with SI and with her chronic?pain?And?poor?support?will?likely?continue?to?produce?mood?instability.? ?Treatment?plan?will?include?software writer/team?discussion?with Outpatient?PCP?regarding?plan?for?treatment. Hospital course: 06/05: Continue current regimen and plans 06/06. Continue current plans and regimen. Loperamide was put on hold. Started on simethicone by hospitalist. No indications of GI bleeding currently. -seen by GI: C/o constipation and worsening abdominal distension. Will order CT A/P with IV/PO contrast to assess for SBO/ileus though passage of gas and small amount of stool argues against complete obstruction; however she is at risk given multiple surgeries. If no obstruction will order bowel regimen to address constipation. Continue Vna, Urology following. 06/07 Patient reports that she is depressed. She apologized for not being more forthcoming earlier on in says it took her awhile to admitted to herself but she does not want to be in this world anymore... And has a plan to jump in front of a train on discharge. Patient also reports that overdose on trazodone/gabapentin was actually an intentional suicide attempt. She reports a constant deluge of self-deprecating thoughts which include that she is worthless, discussed in, and fat. Education Administrator reviewed patient's history of anorexia and patient reports she sees herself as fat every day and eats very little (history of anorexia since 14 years old; was at brought up oral for a month with a feeding tube; she understands that this is a significant cause of her chronic constipation). Despite her SI, patient does want help getting better agrees to try antidepressant medication; software writer reviewed options and risks/side effects and patient with Vraylar. Also discussed pain medication management and patient agrees with Belbuca which she has heard of; she also agrees to non opioid pain management and will follow-up with pain management Clinic here at [place]. Discussed relationship with her mother and she does not SA think her mother struggles with drug addiction but has caught her trying to get into her room, which patient keeps locked, looking for her medications which she has taken in the past. Patient said she reported this to her PCP. Patient does have history of being prescribed fentanyl patch however she did not like them and weaned herself off of them; set had some left over 06/08 Patient remains depressed with suicidal thinking however is trying to be hopeful and has tolerated Vraylar and says will continue, with increased dose; grateful for help getting Belbuca through prior authorization. -Discussed case with urology who recommends remaining with indwelling Van since failed voiding attempt on 06/03; will continue to follow -pt reported and nurse corroborated that Van bag containing urine was blood- tinged; discussed with Urologist, deemed likely micro trauma, and to keep van in place; recently failed voiding trial on 06/03 06/09 Patient reports she remains depressed, with SI. Patient also reports she had a very difficult time sleeping last night feeling very upset following a conversation she had on the phone with her mother. Patient expressed to her mother she is feeling hurt that her mom has not visited or called throughout her admission, even on patient's birthday; she says her mom was on apologetic. Patient also challenged her mom regarding her mom's past comment that patient could burn in hell with her father (who 2 years ago); mom remained unapologetic. Patient tells software writer she has no idea why her mom said this other than that her mom is crazy... Subsequently patient reports that throughout the night, she had racing thoughts and no sleep. Discussed medications and patient and pt is eager to try Belbuca Films for pain management, available today dc'd gabapentin; pt said has never helped for pain or anxiety Adding clonidine at bedtime to help w/ sleep, anxiety 06/10 patient reports that Belbuca is helping with pain Patient remains very depressed and continues to have suicidal thoughts, saying she wants to end her life when she leaves the hospital. Patient Says I do not understand myself.. And laments she is gone most of her life without any suicidal ideation and only started this past September. Patient shared about some other reasons that it might be occurring and agrees that she still mourning the loss of her father who was her confidante; dealing with chronic pain having been off pain medications for several months and the ongoing struggles in her relationship with her mother and brother whom she feels are bullying; trying to come to terms with the fact that her mother simply isn't going to be the kind of mother she wishes she had. Patient agrees to medication management. 06/13 still very depressed with SI. Sleeping better however which is helpful and pain medications are also helpful. Patient agrees to increasing Vraylar; agrees to behavioral activation and attending groups. Despite ongoing thoughts about self-harm and ending her life when she is discharge, patient is also future oriented and says she would like to find a new place to live separate from her mother and brother. Asks for help going about that. 06/14 pt remains depressed, positive for SI with a plan but also future oriented talking about changing her living situation. Pt is engaged in treatment, trying to process her suicidal feelings and trying to be hopeful it will resolve. Agrees to adding Wellbutrin. -will likely add Wellbutrin; however, will probably keep Vraylar (maybe at lower dose) since pt has hx of manic-esque episodes (thought not formally diagnosed with bipolar as episode had several contributory factors) 06/15 remains depressed but processing feelings, doing worksheets, talking about her mother. Pt very anxious. -may increase wellbutrin for depression -considered starting Clonazepam 0.5mg BID; pt used to be on as much as 5mg of ativan daily; was weened off so hesitant to restart benzo's; 06/17 increase Wellbutrin 06/20 Over the weekend, patient assessed for infection, starting antibiotic; concerned that indwelling Van catheter is not sustainable; urology consulted and plan was for suprapubic catheter insertion for today. Patient however did not get fully informed of this and was upset to learn that a procedure was planned. She was however able to discuss this at length with software writer and urology team and agreed to proceed. 06/21 Dr. Niño decided better to do a cystoscopy 1st and then decide whether not suprapubic catheter verse bladder stimulator; patient consents Seen by infectious disease: She has no urinary concerns at this time..No further antibiotics for now PLAN: CV? One-to-one?since?indwelling?Van Continue WEllbutrin XL 150mg for continued depression (pt adamant about not starting anti-depressant with risk of wt gain) Continue Vraylar 4.5 mg daily (Vraylar chosen since patient has depression but also history of manic type behaviors, possibly manic episode with some delusions and AH) Continue Belbuca 75mcg films BID for pain management (history of fentanyl patch, morphine, oxycodone, OxyContin) clonidine prn Continue Flagyl 500 q.12 hours x7 days placed for bacterial vaginosis; id examined patient and reports no need for any additional antibiotic regimen Hospitalist note 06/18 Receiving Pyridium UA 06/18 positive for 4+ bacteria, greater than 50 WBC, large leukocyte esterase positive nitrates Urine culture pending Urine culture 05/25 and 06/01 grew Raissa glabrata patient received Diflucan 200 mg daily from 06/01 through 06/15 Bacterial vaginosis PCR positive Raissa grew size/glabrata detected Due to persistent symptoms of vaginal pain/discharge recommend Infectious Disease consultation Follow urine culture. Patient educated on: diagnosis, medication risk/benefits and medical condition Informed Consent: understands Reason for continued inpatient stay Substantial Risk for: harm to self and rapid decompensation Time Spent With Patient Time: Total time managing care of this patient today ____ minutes.
--- NOTE | 2024-06-22 09:44 | P.PNPSI_ITS ---
Subjective Subjective Date of Service: 06/22/24 Reason For Visit: Sa Interim History: Met with patient; discussed with team Patient discussed conversation she had with her brother that was reassuring. Patient felt understood by him and supported which has lifted her mood. She feels that although she still depressed perhaps some of the depression is lifting and she starting to feel that there is hope of change in her situation. Patient remains very anxious. Earlier she had said she did not want to get back on benzodiazepines, having been on Ativan 5 mg for decades, weaned off only about a year ago. However given patient's struggles with anxiety and the fact that benzos have helped her in the past, discussed restarting a benzodiazepine, this time clonazepam 0.5 mg b.i.d.; insurance underwriter discussed at length risks for addiction and the constant desire to have more. Patient said she very much does not want that to happen and feels that she will be able to minimize her use Mental Status Exam Mental Status Exam Narrative: Pt is alert and oriented; behavior is cooperative, friendly and calm; patient in physical pain; cachectic; dressed in hospital attire with unkempt hair but adequate hygiene; mood is described as a little better and affect congruent, a little brighter; eye contact appropriate; Speech is a normal rate, volume and prosody; psychomotor retardation present; thought process is organized and goal directed; Thought content is on working through feelings of despair and trying to be more hopeful; also on treatment and medical comorbidity; otherwise pertinent to relevant topics and without any delusional content, paranoid ideations or grandiosity; intermittent SI; no HI. There is no evidence of perceptual disturbance. Patients insight and judgment impaired but proven Diagnostics Vital Signs (24Hr): Vital Signs - 24 hr 06/21/24 10:48 06/21/24 12:00 06/21/24 20:00 Temperature 98.2 F 97.3 F Pulse Rate 99 65 Respiratory Rate 16 Blood Pressure 144/91 H 145/94 H 134/86 Pulse Oximetry 99 99 Oxygen Delivery Method Room Air Room Air 06/21/24 21:53 06/22/24 03:24 06/22/24 08:07 Temperature 98.2 F Pulse Rate 83 Respiratory Rate Blood Pressure 134/86 122/86 139/85 Pulse Oximetry 97 Oxygen Delivery Method Room Air BMI result Body Mass Index 17.2 Labs 06/06/24 08:20 06/06/24 08:20 Labs: Laboratory Results - last 48 hr 06/20/24 18:18 Hold Purple Top SEE NOTE Beta HCG, Quant < 2 Imaging Radiology Impressions: ITS Impressions KUB X-Ray 06/03/24 19:55 IMPRESSION: Increased amount of stool in the colon suggesting constipation. Please correlate with clinical presentation. Electronically signed by: Oneida Pham MD 06/04/2024 07:31 AM EDT RP Renal Ultrasound 06/04/24 14:49 IMPRESSION: No ultrasound evidence of renal obstruction or hydronephrosis. Limited visualization of the left kidney obscured by bowel gas, exam otherwise unremarkable. Electronically signed by: Oneida Pham MD 06/05/2024 12:56 PM EDT RP Abdomen/Pelvis CT 06/04/24 18:33 IMPRESSION: Severe constipation. Otherwise unremarkable CT abdomen and pelvis. Fleischner guidelines were followed. Electronically signed by: Deyvi Collins MD 06/04/2024 07:05 PM EDT RP Ribs X-Ray 06/19/24 10:15 IMPRESSION: 1. Mild degenerative changes of the left shoulder. 2. No left-sided rib fracture. Electronically signed by: Orlando Lindsey MD 06/19/2024 10:50 AM EDT RP Shoulder X-Ray 06/19/24 10:15 IMPRESSION: 1. Mild degenerative changes of the left shoulder. 2. No left-sided rib fracture. Electronically signed by: Orlando Lindsey MD 06/19/2024 10:50 AM EDT RP Medications Medications Current Medications Acetaminophen (Acetaminophen 325 Mg Tablet) 650 mg PO Q6H PRN PRN Reason: Headache/Pain Mild Scale (1-3) Last Admin: 06/22/24 03:24 Dose: 650 mg Al Hydroxide/Mg Hydroxide (Magnesium Hydrox/Alum Hydrox 30 Ml Oral.Susp) 30 ml PO Q6H PRN PRN Reason: Heartburn/Nausea Albuterol Sulfate (Albuterol Sulfate 90 Mcg 8 Gm Inhaler) 2 puff INHALE QID PRN PRN Reason: Shortness Of Breath Ascorbic Acid (Ascorbic Acid 500 Mg Tablet) 1,000 mg PO DAILY [facility] Last Admin: 06/22/24 08:51 Dose: 1,000 mg Bisacodyl (Bisacodyl 5 Mg Tablet.Dr) 10 mg PO BEDTIME [facility] Last Admin: 06/21/24 21:53 Dose: 10 mg Bupropion HCl (Bupropion Hcl Xl 300 Mg Tab.Er.24h) 300 mg PO DAILY [facility] Last Admin: 06/22/24 08:51 Dose: 300 mg Cariprazine (Cariprazine Hcl 1.5 Mg Capsule) 4.5 mg PO DAILY [facility] Last Admin: 06/22/24 08:51 Dose: 4.5 mg Clonidine HCl (Clonidine Hcl 0.1 Mg Tablet) 0.1 mg PO BEDTIME [facility]; Protocol Last Admin: 06/21/24 21:53 Dose: 0.1 mg Clonidine HCl (Clonidine Hcl 0.1 Mg Tablet) 0.1 mg PO Q4H PRN; Protocol PRN Reason: anxiety Last Admin: 06/22/24 03:24 Dose: 0.1 mg Hydroxyzine HCl (Hydroxyzine Hcl 25 Mg Tablet) 25 mg PO Q6H PRN PRN Reason: Anxiety Last Admin: 06/22/24 02:30 Dose: 25 mg Ibuprofen (Ibuprofen 600 Mg Tablet) 600 mg PO Q6H PRN PRN Reason: Pain, Severe (Pain Scale 7-10) Last Admin: 06/19/24 08:46 Dose: 600 mg Lactulose (Lactulose 20 Gm/30 Ml Solution) 40 gm PO DAILY [facility] Last Admin: 06/22/24 08:52 Dose: Not Given Lidocaine (Lidocaine 4 % Patch Adh..Patch) 1 patch TRANSDERMA DAILY [facility]; Protocol Last Admin: 06/22/24 08:52 Dose: Not Given Lidocaine HCl (Lidocaine Hcl 2 % Urojet 10 Ml Jel.Pf.Luis) 10 ml TOPICAL BID PRN PRN Reason: Pain, Severe (Pain Scale 7-10) Last Admin: 06/19/24 22:05 Dose: 10 ml Loperamide HCl (Loperamide Hcl 2 Mg Capsule) 2 mg PO Q4H PRN PRN Reason: Diarrhea Magnesium Hydroxide (Milk Of Magnesia 30 Ml Oral.Susp) 30 ml PO DAILY PRN PRN Reason: Constipation Last Admin: 06/04/24 05:22 Dose: 30 ml Metronidazole (Metronidazole 500 Mg Tablet) 500 mg PO Q12H [facility] Stop: 06/25/24 20:01 Last Admin: 06/22/24 08:51 Dose: 500 mg Multi-Ingred Cream/Lotion/Oil/Oint (Mineral Oil/Petrolatum,White 106 Gm Tube) 1 appl TOPICAL BID PRN; Protocol PRN Reason: Dry Skin Last Admin: 06/13/24 21:44 Dose: 1 appl Patient Own (Belbuca (75mcg Buccal Films)) 1 each PO BID [facility] Last Admin: 06/22/24 09:27 Dose: 1 each Ondansetron HCl (Ondansetron Odt 4 Mg Tab.Rapdis) 4 mg TRANSLINGU Q6H PRN PRN Reason: Nausea and Vomiting Last Admin: 06/18/24 16:17 Dose: 4 mg Polyethylene Glycol (Polyethylene Glycol 3350 17 Gm Powd.Pack) 17 gm PO BID [facility] Last Admin: 06/22/24 08:55 Dose: Not Given Quetiapine Fumarate (Quetiapine Fumarate 50 Mg Tablet) 50 mg PO BEDTIME [facility] Last Admin: 06/21/24 21:53 Dose: 50 mg Senna/Docusate Sodium (Sennosides/Docusate Sodium Tablet) 2 tab PO BID [facility] Last Admin: 06/22/24 08:51 Dose: 2 tab Simethicone (Simethicone 80 Mg Tab.Chew) 160 mg PO BID PRN PRN Reason: bloating/gas Last Admin: 06/07/24 11:06 Dose: 160 mg Tamsulosin HCl (Tamsulosin Hcl 0.4 Mg Capsule) 0.4 mg PO BEDTIME [facility] Last Admin: 06/21/24 21:53 Dose: 0.4 mg Allergies Allergies Allergy/AdvReac Type Severity Reaction Status Date / Time azithromycin Allergy Itching Verified 06/21/24 12:35 levofloxacin [From Levaquin] Allergy Nightmare Verified 06/21/24 12:35 nitrofurantoin Allergy Itching Verified 06/21/24 12:35 [From Macrodantin] Assessment & Plan Assessment & Plan (1) MDD (major depressive disorder), recurrent episode, moderate: Status: Acute Code(s): F33.1 - Major depressive disorder, recurrent, moderate (2) PTSD (post-traumatic stress disorder): Status: Acute Code(s): F43.10 - Post-traumatic stress disorder, unspecified (3) Voiding dysfunction: Status: Acute Code(s): N39.8 - Other specified disorders of urinary system Assessment and Plan: She has no urinary concerns at this time No further antibiotics for now (4) Urinary retention: Status: Acute Code(s): R33.9 - Retention of urine, unspecified (5) Jennifer-Danlos disease: Status: Acute Code(s): Q79.60 - Jennifer-Danlos syndrome, unspecified (6) Osteogenesis imperfecta: Status: Acute Code(s): Q78.0 - Osteogenesis imperfecta (7) Myofascial pain syndrome: Status: Acute Code(s): M79.18 - Myalgia, other site Plan HPI: Patient is a 39-year-old female with history of Jennifer Danlos syndrome, osteogenesis imperfecta, myofascial pain syndrome, migraines, juvenile osteoporosis, asthma, and mood disorder with history of rectocele, vaginal mesh surgery, urinary retention requiring Van catheterization, which was recently restarted. P atient?presented?to?[place]?on?924?following?intentional?overdose?on?muscle?rel axers.??Patient?uljan mary?was?immediately?transferred?to?medical?floor?for?urinary?retention;?she?stab ilized?there?and?was?discharged.?? She?presents?again?for?overdose On?gabapentin?and?trazodone,?Which?she?asserts?was?not?intentional (though later admits it was),?saying?she?just?wanted?to?sleep?and?get?relief?from?chronic?pain H owever?she?agrees?it?was?impulsive?and?unsafe.??Patient?currently?denies?any?SI. ??She?reports?howeve r?that?life?has?been?very?difficultff?pain?medications,?having?been?prescribed?o pioids?consistently?for?the?past?24?years,? as?well?as?Ativan.??Patient?agrees?she?needs Help?stabilizing?and?coping. Relevant Medical/psych History: Patient was on opiates scheduled for 24 years to manage chronic medical comorbidities, resulting in hx of multiple fractures/falls and subsequent chronic pain. Pt denies any hx of substance abuse, including cannabis. She did screen positive for Fentanyl at first admission in October 2024 but is adamant she's never used it in her life and no quantitative labs done (leaving Fentanyl use inconclusive). Patients long-time physician of [address] Brigido Dietrich retired and new PCP tapered her off and discontinued all opioid pain management (also tapered and dc'd ativan). Patient reports she has been in constant pain and discomfort since then and has felt very frustrated and challenged to enjoy life, sometimes challenging her desire to live. Discussed?case?with?ANALYTICAL LABORATORY TECHNICIAN Vianey Dunaway from pain management clinic: pt seen on 05/24. ANALYTICAL LABORATORY TECHNICIAN Gume agrees that patients medical comorbidities and subsequent chronic pain syndrome are commonly treated with opioid pain management. She recommends either Butrans patch or preferably Belbucha films (a form of Buprenorphin and titrating it to 150mg BID). Pt is also appropriate to get other nerve blocking treatments at pain clinic who will f/u with pt. Apple Thinner spoke with patient's PCP Dr. Rubio at [facility] Dr. Rubio reports concurs that patient has Osteogenesis imprefecta, Ehlos Danlos Pt was on opioids for 24 years with prior PCP. With [facility] she was on Oxycodine 30mg QID and Oxycontin 30mg daily. In Sep 2023 pt was admitted to [facility] for concern for overdose. Additionally, there were other concerns including that [facility] notes referenced that patient reported being on a Fentanyl patch, which this provider had never prescribed. Additionally, there was hx of patient needing refills early and a report that her mother had used some of her medications. Also patient had significant weight loss which provider was concerned might have contributed to possible accidental overdose. Because of these concerns provider, clinic repeatedly called patient to come in and discuss pain management and reportedly reached out to her from October until January however patient did not respond or come in for appointments, having missed several. Provider reports that because of lack of communication and ongoing concern that was never addressed, Provider felt it was necessary to taper patient off pain medication which was started in January; patient was also tapered off Ativan. Provider agrees that patient does have significant medical history that is commonly treated with chronic pain medication. Apple Thinner discussed options with them and Dr. Rubio agrees that starting patient on a buprenorphine product is an acceptable alternative to oxycodone. Vraylar since depressed and hx of manic-esque IMPRESSION: Patient's?depression?and?SI?seem?to?have significant?situational component?as?she?is?No?longer?receiving?pain?management?for?severe,?chronic?pain . P atient?has?no?known?history?of?substance?abuse.??Although?she?did?screen?positiv e?for?fentanyl (on?10/27/2023 and?05/18/2024), No?quantitative?analysis?was?done. ?This?mean that?fentanyl?screen?could?very?well?be?a?false-positive?result (which is not uncommon). Medical?decision?should?not?be?based?on?only?a?positive?screen?for?fentanyl. Patient does struggle with SI and with her chronic?pain?And?poor?support?will?likely?continue?to?produce?mood?instability.? ?Treatment?plan?will?include?insurance underwriter/team?discussion?with Outpatient?PCP?regarding?plan?for?treatment. Hospital course: 06/05: Continue current regimen and plans 06/06. Continue current plans and regimen. Loperamide was put on hold. Started on simethicone by hospitalist. No indications of GI bleeding currently. -seen by GI: C/o constipation and worsening abdominal distension. Will order CT A/P with IV/PO contrast to assess for SBO/ileus though passage of gas and small amount of stool argues against complete obstruction; however she is at risk given multiple surgeries. If no obstruction will order bowel regimen to address constipation. Continue Van, Urology following. 06/07 Patient reports that she is depressed. She apologized for not being more forthcoming earlier on in says it took her awhile to admitted to herself but she does not want to be in this world anymore... And has a plan to jump in front of a train on discharge. Patient also reports that overdose on trazodone/gabapentin was actually an intentional suicide attempt. She reports a constant deluge of self-deprecating thoughts which include that she is worthless, discussed in, and fat. Apple Thinner reviewed patient's history of anorexia and patient reports she sees herself as fat every day and eats very little (history of anorexia since 14 years old; was at brought up oral for a month with a feeding tube; she understands that this is a significant cause of her chronic constipation). Despite her SI, patient does want help getting better agrees to try antidepressant medication; insurance underwriter reviewed options and risks/side effects and patient with Vraylar. Also discussed pain medication management and patient agrees with Belbuca which she has heard of; she also agrees to non opioid pain management and will follow-up with pain management Clinic here at [place]. Discussed relationship with her mother and she does not SA think her mother struggles with drug addiction but has caught her trying to get into her room, which patient keeps locked, looking for her medications which she has taken in the past. Patient said she reported this to her PCP. Patient does have history of being prescribed fentanyl patch however she did not like them and weaned herself off of them; set had some left over 06/08 Patient remains depressed with suicidal thinking however is trying to be hopeful and has tolerated Vraylar and says will continue, with increased dose; grateful for help getting Belbuca through prior authorization. -Discussed case with urology who recommends remaining with indwelling Van since failed voiding attempt on 06/03; will continue to follow -pt reported and nurse corroborated that Van bag containing urine was blood- tinged; discussed with Urologist, deemed likely micro trauma, and to keep van in place; recently failed voiding trial on 06/03 06/09 Patient reports she remains depressed, with SI. Patient also reports she had a very difficult time sleeping last night feeling very upset following a conversation she had on the phone with her mother. Patient expressed to her mother she is feeling hurt that her mom has not visited or called throughout her admission, even on patient's birthday; she says her mom was on apologetic. Patient also challenged her mom regarding her mom's past comment that patient could burn in hell with her father (who 2 years ago); mom remained unapologetic. Patient tells insurance underwriter she has no idea why her mom said this other than that her mom is crazy... Subsequently patient reports that throughout the night, she had racing thoughts and no sleep. Discussed medications and patient and pt is eager to try Belbuca Films for pain management, available today dc'd gabapentin; pt said has never helped for pain or anxiety Adding clonidine at bedtime to help w/ sleep, anxiety 06/10 patient reports that Belbuca is helping with pain Patient remains very depressed and continues to have suicidal thoughts, saying she wants to end her life when she leaves the hospital. Patient Says I do not understand myself.. And laments she is gone most of her life without any suicidal ideation and only started this past September. Patient shared about some other reasons that it might be occurring and agrees that she still mourning the loss of her father who was her confidante; dealing with chronic pain having been off pain medications for several months and the ongoing struggles in her relationship with her mother and brother whom she feels are bullying; trying to come to terms with the fact that her mother simply isn't going to be the kind of mother she wishes she had. Patient agrees to medication management. 06/13 still very depressed with SI. Sleeping better however which is helpful and pain medications are also helpful. Patient agrees to increasing Vraylar; agrees to behavioral activation and attending groups. Despite ongoing thoughts about self-harm and ending her life when she is discharge, patient is also future oriented and says she would like to find a new place to live separate from her mother and brother. Asks for help going about that. 06/14 pt remains depressed, positive for SI with a plan but also future oriented talking about changing her living situation. Pt is engaged in treatment, trying to process her suicidal feelings and trying to be hopeful it will resolve. Agrees to adding Wellbutrin. -will likely add Wellbutrin; however, will probably keep Vraylar (maybe at lower dose) since pt has hx of manic-esque episodes (thought not formally diagnosed with bipolar as episode had several contributory factors) 06/15 remains depressed but processing feelings, doing worksheets, talking about her mother. Pt very anxious. -may increase wellbutrin for depression -considered starting Clonazepam 0.5mg BID; pt used to be on as much as 5mg of ativan daily; was weened off so hesitant to restart benzo's; 06/17 increase Wellbutrin 06/20 Over the weekend, patient assessed for infection, starting antibiotic; concerned that indwelling Van catheter is not sustainable; urology consulted and plan was for suprapubic catheter insertion for today. Patient however did not get fully informed of this and was upset to learn that a procedure was planned. She was however able to discuss this at length with insurance underwriter and urology team and agreed to proceed. 06/21 Dr. Niño decided better to do a cystoscopy 1st and then decide whether not suprapubic catheter verse bladder stimulator; patient consents Seen by infectious disease: She has no urinary concerns at this time..No further antibiotics for now 06/22 Patient discussed conversation she had with her brother that was reassuring. Patient felt understood by him and supported which has lifted her mood. She feels that although she still depressed perhaps some of the depression is lifting and she starting to feel that there is hope of change in her situation. Patient remains very anxious. Earlier she had said she did not want to get back on benzodiazepines, having been on Ativan 5 mg for decades, weaned off only about a year ago. However given patient's struggles with anxiety and the fact that benzos have helped her in the past, discussed restarting a benzodiazepine, this time clonazepam 0.5 mg b.i.d.; insurance underwriter discussed at length risks for addiction and the constant desire to have more. Patient said she very much does not want that to happen and feels that she will be able to minimize her use PLAN: CV? Q 5s due to?indwelling?Van Start clonazepam 0.5 mg b.i.d. Continue WEllbutrin XL 150mg for continued depression (pt adamant about not starting anti-depressant with risk of wt gain) Continue Vraylar 4.5 mg daily (Vraylar chosen since patient has depression but also history of manic type behaviors, possibly manic episode with some delusions and AH) Continue Belbuca 75mcg films BID for pain management (history of fentanyl patch, morphine, oxycodone, OxyContin) clonidine prn Continue Flagyl 500 q.12 hours x7 days placed for bacterial vaginosis; id examined patient and reports no need for any additional antibiotic regimen Hospitalist note 06/18 Receiving Pyridium UA 06/18 positive for 4+ bacteria, greater than 50 WBC, large leukocyte esterase positive nitrates Urine culture pending Urine culture 10/2 and 06/01 grew Raissa glabrata patient received Diflucan 200 mg daily from 06/01 through 06/15 Bacterial vaginosis PCR positive Raissa grew size/glabrata detected Due to persistent symptoms of vaginal pain/discharge recommend Infectious Disease consultation Follow urine culture. Patient educated on: diagnosis, medication risk/benefits and medical condition Patient educated on: diagnosis, medication risk/benefits, substance abuse and medical condition Informed Consent: understands Reason for continued inpatient stay Substantial Risk for: rapid decompensation Time Spent With Patient Time: Total time managing care of this patient today ____ minutes.
[2024-06-22] MEDS: clonazePAM 0.5 MG TABLET PO ×2 (15:52→18:33)
[2024-06-22] MEDS: QUEtiapine Fumarate 50 MG TABLET PO (22:13)
[2024-06-22] MEDS: Tamsulosin HCL 0.4 MG CAPSULE PO (22:15)
[2024-06-23 06:09] VITALS: BP 130/97
[2024-06-23] MEDS: cloNIDine HCL 0.1 MG TABLET PO ×3 (06:09→21:19)
[2024-06-23] MEDS: Ibuprofen 600 MG TABLET PO (06:10)
[2024-06-23 08:42] VITALS: BP 167/97; PULSE 83; TEMP 36.7; O2SAT 97
[2024-06-23] MEDS: buPROPion HCl XL 300 MG TAB.ER.24H PO (09:10)
[2024-06-23] MEDS: metroNIDAZOLE 500 MG TABLET PO ×2 (09:10→21:19)
[2024-06-23] MEDS: Cariprazine HCl 1.5 MG CAPSULE 4.5 MG PO (09:10)
[2024-06-23] MEDS: Ascorbic Acid 500 MG TABLET 1000 MG PO (09:11)
[2024-06-23] MEDS: clonazePAM 0.5 MG TABLET PO ×2 (09:11→21:19)
[2024-06-23] MEDS: BUPRENORPHINE 75 MCG 1 EACH PO ×2 (09:28→21:20)
--- NOTE | 2024-06-23 09:59 | PC.NURSE ---
Urologist called to check in on Joselin at around 9:30 and to let her know that she would be up to see her at some point today, 06/23. Joselin reported soon after that she noticed some bleeding on her Rey and toilet paper, she did report that the catheter had, gotten tugged on a little yesterday. Urologist was notified and will assess her later today.
--- NOTE | 2024-06-23 13:33 | P.PNPSI_ITS ---
Subjective Subjective Date of Service: 06/23/24 Reason For Visit: Sa Interim History: Met with patient; discussed with team Depressed, with intermittent SI. Patient very anxious and with despairing thoughts has upcoming anniversary of her father's which is this July 03. Discussed how to approach it and will try to make July 03 a celebration, a remembrance day and change the perspective about this anniversary. Feeling better about catheter and plan; telegraphic typewriter operator chief discussed with urology who met with patient and plan is for July 05 to move forward with stimulator Mental Status Exam Mental Status Exam Narrative: Pt is alert and oriented; behavior is cooperative, friendly and calm; patient in physical pain; cachectic; dressed in hospital attire with hair braided; adequate hygiene; mood is described as not good and affect congruent, a little downcast; eye contact appropriate; Speech is a normal rate, volume and prosody; psychomotor retardation present; thought process is organized and goal directed; Thought content is on working through feelings of despair and trying to be more hopeful; also on treatment and medical comorbidity; otherwise pertinent to relevant topics and without any delusional content, paranoid ideations or grandiosity; intermittent SI; no HI. There is no evidence of perceptual disturbance. Patients insight and judgment impaired but improving Diagnostics Vital Signs (24Hr): Vital Signs - 24 hr 06/22/24 15:21 06/22/24 20:00 06/22/24 22:05 Temperature 97.3 F 98.1 F Pulse Rate 103 H 88 Blood Pressure 140/89 H 119/82 128/81 Pulse Oximetry Oxygen Delivery Method 06/22/24 22:14 06/23/24 06:09 06/23/24 08:42 Temperature 98.0 F Pulse Rate 83 Blood Pressure 128/81 130/97 H 167/97 H Pulse Oximetry 97 Oxygen Delivery Method Room Air BMI result Body Mass Index 17.2 Labs 06/06/24 08:20 06/06/24 08:20 Imaging Radiology Impressions: ITS Impressions KUB X-Ray 06/03/24 19:55 IMPRESSION: Increased amount of stool in the colon suggesting constipation. Please correlate with clinical presentation. Electronically signed by: Oneida Pham MD 06/04/2024 07:31 AM EDT Renal Ultrasound 06/04/24 14:49 IMPRESSION: No ultrasound evidence of renal obstruction or hydronephrosis. Limited visualization of the left kidney obscured by bowel gas, exam otherwise unremarkable. Electronically signed by: Oneida Pham MD 06/05/2024 12:56 PM EDT RP Abdomen/Pelvis CT 06/04/24 18:33 IMPRESSION: Severe constipation. Otherwise unremarkable CT abdomen and pelvis. Fleischner guidelines were followed. Electronically signed by: Deyvi Collins MD 06/04/2024 07:05 PM EDT RP Ribs X-Ray 06/19/24 10:15 IMPRESSION: 1. Mild degenerative changes of the left shoulder. 2. No left-sided rib fracture. Electronically signed by: Orlando Lindsey MD 06/19/2024 10:50 AM EDT RP Shoulder X-Ray 06/19/24 10:15 IMPRESSION: 1. Mild degenerative changes of the left shoulder. 2. No left-sided rib fracture. Electronically signed by: Orlando Lindsey MD 06/19/2024 10:50 AM EDT RP Medications Medications Current Medications Acetaminophen (Acetaminophen 325 Mg Tablet) 650 mg PO Q6H PRN PRN Reason: Headache/Pain Mild Scale (1-3) Last Admin: 06/22/24 03:24 Dose: 650 mg Al Hydroxide/Mg Hydroxide (Magnesium Hydrox/Alum Hydrox 30 Ml Oral.Susp) 30 ml PO Q6H PRN PRN Reason: Heartburn/Nausea Albuterol Sulfate (Albuterol Sulfate 90 Mcg 8 Gm Inhaler) 2 puff INHALE QID PRN PRN Reason: Shortness Of Breath Ascorbic Acid (Ascorbic Acid 500 Mg Tablet) 1,000 mg PO DAILY [facility] Last Admin: 06/23/24 09:11 Dose: 1,000 mg Bisacodyl (Bisacodyl 5 Mg Tablet.Dr) 10 mg PO BEDTIME [facility] Last Admin: 06/22/24 22:24 Dose: Not Given Bupropion HCl (Bupropion Hcl Xl 300 Mg Tab.Er.24h) 300 mg PO DAILY [facility] Last Admin: 06/23/24 09:10 Dose: 300 mg Cariprazine (Cariprazine Hcl 1.5 Mg Capsule) 4.5 mg PO DAILY [facility] Last Admin: 06/23/24 09:10 Dose: 4.5 mg Clonazepam (Clonazepam 0.5 Mg Tablet) 0.5 mg PO BID [facility] Last Admin: 06/23/24 09:11 Dose: 0.5 mg Clonidine HCl (Clonidine Hcl 0.1 Mg Tablet) 0.1 mg PO BEDTIME [facility]; Protocol Last Admin: 06/22/24 22:14 Dose: 0.1 mg Clonidine HCl (Clonidine Hcl 0.1 Mg Tablet) 0.1 mg PO Q4H PRN; Protocol PRN Reason: anxiety Last Admin: 06/23/24 06:09 Dose: 0.1 mg Hydroxyzine HCl (Hydroxyzine Hcl 25 Mg Tablet) 25 mg PO Q6H PRN PRN Reason: Anxiety Last Admin: 06/22/24 10:55 Dose: 25 mg Ibuprofen (Ibuprofen 600 Mg Tablet) 600 mg PO Q6H PRN PRN Reason: Pain, Severe (Pain Scale 7-10) Last Admin: 06/23/24 06:10 Dose: 600 mg Lactulose (Lactulose 20 Gm/30 Ml Solution) 40 gm PO DAILY [facility] Last Admin: 06/23/24 09:26 Dose: Not Given Lidocaine (Lidocaine 4 % Patch Adh..Patch) 1 patch TRANSDERMA DAILY [facility]; Protocol Last Admin: 06/23/24 09:27 Dose: Not Given Lidocaine HCl (Lidocaine Hcl 2 % Urojet 10 Ml Jel.Pf.Luis) 10 ml TOPICAL BID PRN PRN Reason: Pain, Severe (Pain Scale 7-10) Last Admin: 06/19/24 22:05 Dose: 10 ml Loperamide HCl (Loperamide Hcl 2 Mg Capsule) 2 mg PO Q4H PRN PRN Reason: Diarrhea Magnesium Hydroxide (Milk Of Magnesia 30 Ml Oral.Susp) 30 ml PO DAILY PRN PRN Reason: Constipation Last Admin: 06/04/24 05:22 Dose: 30 ml Metronidazole (Metronidazole 500 Mg Tablet) 500 mg PO Q12H [facility] Stop: 06/25/24 20:01 Last Admin: 06/23/24 09:10 Dose: 500 mg Multi-Ingred Cream/Lotion/Oil/Oint (Mineral Oil/Petrolatum,White 106 Gm Tube) 1 appl TOPICAL BID PRN; Protocol PRN Reason: Dry Skin Last Admin: 06/13/24 21:44 Dose: 1 appl Patient Own (Belbuca (75mcg Buccal Films)) 1 each PO BID [facility] Last Admin: 06/23/24 09:28 Dose: 1 each Ondansetron HCl (Ondansetron Odt 4 Mg Tab.Rapdis) 4 mg TRANSLINGU Q6H PRN PRN Reason: Nausea and Vomiting Last Admin: 06/18/24 16:17 Dose: 4 mg Polyethylene Glycol (Polyethylene Glycol 3350 17 Gm Powd.Pack) 17 gm PO BID [facility] Last Admin: 06/23/24 10:33 Dose: Not Given Quetiapine Fumarate (Quetiapine Fumarate 50 Mg Tablet) 50 mg PO BEDTIME [facility] Last Admin: 06/22/24 22:13 Dose: 50 mg Senna/Docusate Sodium (Sennosides/Docusate Sodium Tablet) 2 tab PO BID [facility] Last Admin: 06/23/24 10:33 Dose: Not Given Simethicone (Simethicone 80 Mg Tab.Chew) 160 mg PO BID PRN PRN Reason: bloating/gas Last Admin: 06/07/24 11:06 Dose: 160 mg Tamsulosin HCl (Tamsulosin Hcl 0.4 Mg Capsule) 0.4 mg PO BEDTIME [facility] Last Admin: 06/22/24 22:15 Dose: 0.4 mg Allergies Allergies Allergy/AdvReac Type Severity Reaction Status Date / Time azithromycin Allergy Itching Verified 06/21/24 12:35 levofloxacin [From Levaquin] Allergy Nightmare Verified 06/21/24 12:35 nitrofurantoin Allergy Itching Verified 06/21/24 12:35 [From Macrodantin] Assessment & Plan Assessment & Plan (1) MDD (major depressive disorder), recurrent episode, moderate: Status: Acute Code(s): F33.1 - Major depressive disorder, recurrent, moderate (2) PTSD (post-traumatic stress disorder): Status: Acute Code(s): F43.10 - Post-traumatic stress disorder, unspecified (3) Voiding dysfunction: Status: Acute Code(s): N39.8 - Other specified disorders of urinary system Assessment and Plan: She has no urinary concerns at this time No further antibiotics for now (4) Urinary retention: Status: Acute Code(s): R33.9 - Retention of urine, unspecified (5) Jennifer-Danlos disease: Status: Acute Code(s): Q79.60 - Jennifer-Danlos syndrome, unspecified (6) Osteogenesis imperfecta: Status: Acute Code(s): Q78.0 - Osteogenesis imperfecta (7) Myofascial pain syndrome: Status: Acute Code(s): M79.18 - Myalgia, other site Plan HPI: Patient is a 39-year-old female with history of Jennifer Danlos syndrome, osteogenesis imperfecta, myofascial pain syndrome, migraines, juvenile osteoporosis, asthma, and mood disorder with history of rectocele, vaginal mesh surgery, urinary retention requiring Van catheterization, which was recently restarted. P atient?presented?to?[facility]?on?924?following?intentional?overdose?on?muscle?rel axers.??Patient?lujan mary?was?immediately?transferred?to?medical?floor?for?urinary?retention;?she?stab ilized?there?and?was?discharged.?? She?presents?again?for?overdose On?gabapentin?and?trazodone,?Which?she?asserts?was?not?intentional (though later admits it was),?saying?she?just?wanted?to?sleep?and?get?relief?from?chronic?pain H owever?she?agrees?it?was?impulsive?and?unsafe.??Patient?currently?denies?any?SI. ??She?reports?howeve r?that?life?has?been?very?difficultff?pain?medications,?having?been?prescribed?o pioids?consistently?for?the?past?24?years,? as?well?as?Ativan.??Patient?agrees?she?needs Help?stabilizing?and?coping. Relevant Medical/psych History: Patient was on opiates scheduled for 24 years to manage chronic medical comorbidities, resulting in hx of multiple fractures/falls and subsequent chronic pain. Pt denies any hx of substance abuse, including cannabis. She did screen positive for Fentanyl at first admission in October 2024 but is adamant she's never used it in her life and no quantitative labs done (leaving Fentanyl use inconclusive). Patients long-time physician of [address] Brigido Dietrich retired and new PCP tapered her off and discontinued all opioid pain management (also tapered and dc'd ativan). Patient reports she has been in constant pain and discomfort since then and has felt very frustrated and challenged to enjoy life, sometimes challenging her desire to live. Discussed?case?with?MAGDA Dunaway from pain management clinic: pt seen on 05/24. SAAS ARCHITECT Gume agrees that patients medical comorbidities and subsequent chronic pain syndrome are commonly treated with opioid pain management. She recommends either Butrans patch or preferably Belbucha films (a form of Buprenorphin and titrating it to 150mg BID). Pt is also appropriate to get other nerve blocking treatments at pain clinic who will f/u with pt. Director Loss Prevention spoke with patient's PCP Dr. Rubio at [facility] Dr. Rubio reports concurs that patient has Osteogenesis imprefecta, Ehlos Danlos Pt was on opioids for 24 years with prior PCP. With [facility] she was on Oxycodine 30mg QID and Oxycontin 30mg daily. In Sep 2023 pt was admitted to [facility] for concern for overdose. Additionally, there were other concerns including that [facility] notes referenced that patient reported being on a Fentanyl patch, which this provider had never prescribed. Additionally, there was hx of patient needing refills early and a report that her mother had used some of her medications. Also patient had significant weight loss which provider was concerned might have contributed to possible accidental overdose. Because of these concerns provider, clinic repeatedly called patient to come in and discuss pain management and reportedly reached out to her from October until January however patient did not respond or come in for appointments, having missed several. Provider reports that because of lack of communication and ongoing concern that was never addressed, Provider felt it was necessary to taper patient off pain medication which was started in January; patient was also tapered off Ativan. Provider agrees that patient does have significant medical history that is commonly treated with chronic pain medication. Director Loss Prevention discussed options with them and Dr. Rubio agrees that starting patient on a buprenorphine product is an acceptable alternative to oxycodone. Vraylar since depressed and hx of manic-esque IMPRESSION: Patient's?depression?and?SI?seem?to?have significant?situational component?as?she?is?No?longer?receiving?pain?management?for?severe,?chronic?pain . P atient?has?no?known?history?of?substance?abuse.??Although?she?did?screen?positiv e?for?fentanyl (on?10/27/2023 and?05/18/2024), No?quantitative?analysis?was?done. ?This?mean that?fentanyl?screen?could?very?well?be?a?false-positive?result (which is not uncommon). Medical?decision?should?not?be?based?on?only?a?positive?screen?for?fentanyl. Patient does struggle with SI and with her chronic?pain?And?poor?support?will?likely?continue?to?produce?mood?instability.? ?Treatment?plan?will?include?telegraphic typewriter operator chief/team?discussion?with Outpatient?PCP?regarding?plan?for?treatment. Hospital course: 06/05: Continue current regimen and plans 06/06. Continue current plans and regimen. Loperamide was put on hold. Started on simethicone by hospitalist. No indications of GI bleeding currently. -seen by GI: C/o constipation and worsening abdominal distension. Will order CT A/P with IV/PO contrast to assess for SBO/ileus though passage of gas and small amount of stool argues against complete obstruction; however she is at risk given multiple surgeries. If no obstruction will order bowel regimen to address constipation. Continue Van, Urology following. 06/07 Patient reports that she is depressed. She apologized for not being more forthcoming earlier on in says it took her awhile to admitted to herself but she does not want to be in this world anymore... And has a plan to jump in front of a train on discharge. Patient also reports that overdose on trazodone/gabapentin was actually an intentional suicide attempt. She reports a constant deluge of self-deprecating thoughts which include that she is worthless, discussed in, and fat. Director Loss Prevention reviewed patient's history of anorexia and patient reports she sees herself as fat every day and eats very little (history of anorexia since 14 years old; was at brought up oral for a month with a feeding tube; she understands that this is a significant cause of her chronic constipation). Despite her SI, patient does want help getting better agrees to try antidepressant medication; telegraphic typewriter operator chief reviewed options and risks/side effects and patient with Vraylar. Also discussed pain medication management and patient agrees with Belbuca which she has heard of; she also agrees to non opioid pain management and will follow-up with pain management Clinic here at [facility]. Discussed relationship with her mother and she does not SA think her mother struggles with drug addiction but has caught her trying to get into her room, which patient keeps locked, looking for her medications which she has taken in the past. Patient said she reported this to her PCP. Patient does have history of being prescribed fentanyl patch however she did not like them and weaned herself off of them; set had some left over 06/08 Patient remains depressed with suicidal thinking however is trying to be hopeful and has tolerated Vraylar and says will continue, with increased dose; grateful for help getting Belbuca through prior authorization. -Discussed case with urology who recommends remaining with indwelling Van since failed voiding attempt on 06/03; will continue to follow -pt reported and nurse corroborated that Van bag containing urine was blood- tinged; discussed with Urologist, deemed likely micro trauma, and to keep van in place; recently failed voiding trial on 06/03 06/09 Patient reports she remains depressed, with SI. Patient also reports she had a very difficult time sleeping last night feeling very upset following a conversation she had on the phone with her mother. Patient expressed to her mother she is feeling hurt that her mom has not visited or called throughout her admission, even on patient's birthday; she says her mom was on apologetic. Patient also challenged her mom regarding her mom's past comment that patient could burn in hell with her father (who 2 years ago); mom remained unapologetic. Patient tells telegraphic typewriter operator chief she has no idea why her mom said this other than that her mom is crazy... Subsequently patient reports that throughout the night, she had racing thoughts and no sleep. Discussed medications and patient and pt is eager to try Belbuca Films for pain management, available today dc'd gabapentin; pt said has never helped for pain or anxiety Adding clonidine at bedtime to help w/ sleep, anxiety 06/10 patient reports that Belbuca is helping with pain Patient remains very depressed and continues to have suicidal thoughts, saying she wants to end her life when she leaves the hospital. Patient Says I do not understand myself.. And laments she is gone most of her life without any suicidal ideation and only started this past September. Patient shared about some other reasons that it might be occurring and agrees that she still mourning the loss of her father who was her confidante; dealing with chronic pain having been off pain medications for several months and the ongoing struggles in her relationship with her mother and brother whom she feels are bullying; trying to come to terms with the fact that her mother simply isn't going to be the kind of mother she wishes she had. Patient agrees to medication management. 06/13 still very depressed with SI. Sleeping better however which is helpful and pain medications are also helpful. Patient agrees to increasing Vraylar; agrees to behavioral activation and attending groups. Despite ongoing thoughts about self-harm and ending her life when she is discharge, patient is also future oriented and says she would like to find a new place to live separate from her mother and brother. Asks for help going about that. 06/14 pt remains depressed, positive for SI with a plan but also future oriented talking about changing her living situation. Pt is engaged in treatment, trying to process her suicidal feelings and trying to be hopeful it will resolve. Agrees to adding Wellbutrin. -will likely add Wellbutrin; however, will probably keep Vraylar (maybe at lower dose) since pt has hx of manic-esque episodes (thought not formally diagnosed with bipolar as episode had several contributory factors) 06/15 remains depressed but processing feelings, doing worksheets, talking about her mother. Pt very anxious. -may increase wellbutrin for depression -considered starting Clonazepam 0.5mg BID; pt used to be on as much as 5mg of ativan daily; was weened off so hesitant to restart benzo's; 06/17 increase Wellbutrin 06/20 Over the weekend, patient assessed for infection, starting antibiotic; concerned that indwelling Van catheter is not sustainable; urology consulted and plan was for suprapubic catheter insertion for today. Patient however did not get fully informed of this and was upset to learn that a procedure was planned. She was however able to discuss this at length with telegraphic typewriter operator chief and urology team and agreed to proceed. 06/21 Dr. Niño decided better to do a cystoscopy 1st and then decide whether not suprapubic catheter verse bladder stimulator; patient consents Seen by infectious disease: She has no urinary concerns at this time..No further antibiotics for now 06/22 Patient discussed conversation she had with her brother that was reassuring. Patient felt understood by him and supported which has lifted her mood. She feels that although she still depressed perhaps some of the depression is lifting and she starting to feel that there is hope of change in her situation. Patient remains very anxious. Earlier she had said she did not want to get back on benzodiazepines, having been on Ativan 5 mg for decades, weaned off only about a year ago. However given patient's struggles with anxiety and the fact that benzos have helped her in the past, discussed restarting a benzodiazepine, this time clonazepam 0.5 mg b.i.d.; telegraphic typewriter operator chief discussed at length risks for addiction and the constant desire to have more. Patient said she very much does not want that to happen and feels that she will be able to minimize her use 06/23 Depressed, with intermittent SI. very anxious and with despairing thoughts has upcoming anniversary of her father's which is this July 03; will try to make it remembrance day and change the perspective. -Feeling better about catheter and plan; telegraphic typewriter operator chief discussed with urology who met with patient and plan is for July 05 to move forward with stimulator -patient attending groups and engaged in treatment PLAN: CV? Q 5s due to?indwelling?Van Continue clonazepam 0.5 mg b.i.d. Continue WEllbutrin XL 150mg for continued depression (pt adamant about not starting anti-depressant with risk of wt gain) Continue Vraylar 4.5 mg daily (Vraylar chosen since patient has depression but also history of manic type behaviors, possibly manic episode with some delusions and AH) Continue Belbuca 75mcg films BID for pain management (history of fentanyl patch, morphine, oxycodone, OxyContin) clonidine prn Continue Flagyl 500 q.12 hours x7 days placed for bacterial vaginosis; id examined patient and reports no need for any additional antibiotic regimen Urology appointment: July 05 for placement of bladder stimulator (With Dr. Leiva) Cystoscopy Findings: Bladder wall thickening, no vaginal or bladder mesh, no evidence outlet obstruction Hospitalist note 06/18 Receiving Pyridium UA 10/26 positive for 4+ bacteria, greater than 50 WBC, large leukocyte esterase positive nitrates Urine culture pending Urine culture 05/25 and 06/01 grew Raissa glabrata patient received Diflucan 200 mg daily from 06/01 through 06/15 Bacterial vaginosis PCR positive Raissa grew size/glabrata detected Due to persistent symptoms of vaginal pain/discharge recommend Infectious Disease consultation Follow urine culture. Patient educated on: diagnosis, medication risk/benefits and medical condition Patient educated on: diagnosis, medication risk/benefits, therapeutic strategies and medical condition Informed Consent: understands Reason for continued inpatient stay Substantial Risk for: rapid decompensation Time Spent With Patient Time: Total time managing care of this patient today ____ minutes.
[2024-06-23] MEDS: hydrOXYzine HCL 25 MG TABLET PO (15:50)
[2024-06-23 18:05] VITALS: BP 124/79
[2024-06-23 20:00] VITALS: BP 149/92; PULSE 100; TEMP 36.9; O2SAT 96
[2024-06-23 21:19] VITALS: BP 149/92
[2024-06-23] MEDS: QUEtiapine Fumarate 50 MG TABLET PO (21:19)
[2024-06-23] MEDS: Tamsulosin HCL 0.4 MG CAPSULE PO (21:19)
--- NOTE | 2024-06-24 03:23 | PC.NURSE ---
Pt. was advised that she should eat food at med time because the antibiotic she is prescribed is very upsetting to the GI tract. Pt. approached a counselor and request one piece of toast with peanut butter. When she was given the toast, she was given two pieces of toast with peanut butter and told she had to eat both pieces. Immediately after eating the food she went to her room. TW followed her to her room and she went immediately to the bathroom and shut the door. I advised her that I needed to open the door. Pt. admitted that she was going to self induce vomiting because it is going to make me fat and I am already fat enough. I'm still having suicidal ideation, I just want to . Spoke with her at length about the legality of suicide by starvation. She questioned me as to what would happen if she filled out a DNR. I advised her that if she were under medical supervision as she is currently that the medical personnel would not be able to honor the DNR and would be legally bound to stop her from completing suicide by starvation or dehydration by forcibly feeding her and/or resuscitating her. Pt. expressed disbelief about this however, she did not to force vomiting at this time.
[2024-06-24 07:55] VITALS: BP 138/94; PULSE 85; RESP 18; TEMP 36.9; O2SAT 96
[2024-06-24] MEDS: Ascorbic Acid 500 MG TABLET 1000 MG PO (08:27)
[2024-06-24] MEDS: Lidocaine 4 % Patch ADH..PATCH 1 PATCH TRANSDERMA (08:27)
[2024-06-24] MEDS: Cariprazine HCl 1.5 MG CAPSULE 4.5 MG PO (08:28)
[2024-06-24] MEDS: clonazePAM 0.5 MG TABLET PO (08:28)
[2024-06-24] MEDS: buPROPion HCl XL 300 MG TAB.ER.24H PO (08:28)
[2024-06-24] MEDS: metroNIDAZOLE 500 MG TABLET PO ×2 (08:28→22:36)
[2024-06-24] MEDS: BUPRENORPHINE 75 MCG 1 EACH PO (10:03)
[2024-06-24 11:30] VITALS: BP 159/96
[2024-06-24] MEDS: cloNIDine HCL 0.1 MG TABLET PO (11:30)
--- NOTE | 2024-06-24 12:05 | P.PNPSI_ITS ---
Subjective Subjective Date of Service: 06/24/24 Reason For Visit: Sa Interim History: Met with patient; discussed with team Patient reports mood is up and down but overall starting to feel little better. Patient is working on a remembrance day celebration for the anniversary of her father's . Patient anxious because learned that social security paperwork/disability paperwork is due; she is trying to have 1 of her brothers bringing into her. Patient reports better sleep last night which she thinks has helped her mood today. Because of continued depression discussed medication management and patient agrees to increase Wellbutrin Mental Status Exam Mental Status Exam Narrative: Pt is alert and oriented; behavior is cooperative, friendly and calm; patient in physical pain; cachectic; dressed in hospital attire with hair braided; adequate hygiene; mood is described as ok and affect congruent; eye contact appropriate; Speech is a normal rate, volume and prosody; psychomotor retardation present; thought process is organized and goal directed; Thought content is on working through feelings of despair and trying to be more hopeful; also on treatment and medical comorbidity; otherwise pertinent to relevant topics and without any delusional content, paranoid ideations or grandiosity; intermittent SI; no HI. There is no evidence of perceptual disturbance. Patients insight and judgment impaired but improving Diagnostics Vital Signs (24Hr): Vital Signs - 24 hr 06/23/24 18:05 06/23/24 20:00 06/23/24 21:19 Temperature 98.4 F Pulse Rate 100 Respiratory Rate Blood Pressure 124/79 149/92 H 149/92 H Pulse Oximetry 96 Oxygen Delivery Method Room Air 06/24/24 07:55 06/24/24 11:30 Temperature 98.4 F Pulse Rate 85 Respiratory Rate 18 Blood Pressure 138/94 H 159/96 H Pulse Oximetry 96 Oxygen Delivery Method Room Air BMI result Body Mass Index 17.2 Labs 06/06/24 08:20 06/06/24 08:20 Imaging Radiology Impressions: ITS Impressions KUB X-Ray 06/03/24 19:55 IMPRESSION: Increased amount of stool in the colon suggesting constipation. Please correlate with clinical presentation. Electronically signed by: Oneida Pham MD 06/04/2024 07:31 AM EDT Renal Ultrasound 06/04/24 14:49 IMPRESSION: No ultrasound evidence of renal obstruction or hydronephrosis. Limited visualization of the left kidney obscured by bowel gas, exam otherwise unremarkable. Electronically signed by: Oneida Pham MD 06/05/2024 12:56 PM EDT RP Abdomen/Pelvis CT 06/04/24 18:33 IMPRESSION: Severe constipation. Otherwise unremarkable CT abdomen and pelvis. Fleischner guidelines were followed. Electronically signed by: Deyvi Collins MD 06/04/2024 07:05 PM EDT RP Ribs X-Ray 06/19/24 10:15 IMPRESSION: 1. Mild degenerative changes of the left shoulder. 2. No left-sided rib fracture. Electronically signed by: Orlando Lindsey MD 06/19/2024 10:50 AM EDT RP Shoulder X-Ray 06/19/24 10:15 IMPRESSION: 1. Mild degenerative changes of the left shoulder. 2. No left-sided rib fracture. Electronically signed by: Orlando Lindsey MD 06/19/2024 10:50 AM EDT RP Medications Medications Current Medications Acetaminophen (Acetaminophen 325 Mg Tablet) 650 mg PO Q6H PRN PRN Reason: Headache/Pain Mild Scale (1-3) Last Admin: 06/22/24 03:24 Dose: 650 mg Al Hydroxide/Mg Hydroxide (Magnesium Hydrox/Alum Hydrox 30 Ml Oral.Susp) 30 ml PO Q6H PRN PRN Reason: Heartburn/Nausea Albuterol Sulfate (Albuterol Sulfate 90 Mcg 8 Gm Inhaler) 2 puff INHALE QID PRN PRN Reason: Shortness Of Breath Ascorbic Acid (Ascorbic Acid 500 Mg Tablet) 1,000 mg PO DAILY [facility] Last Admin: 06/24/24 08:27 Dose: 1,000 mg Bisacodyl (Bisacodyl 5 Mg Tablet.Dr) 10 mg PO BEDTIME [facility] Last Admin: 06/23/24 21:17 Dose: Not Given Bupropion HCl (Bupropion Hcl Xl 300 Mg Tab.Er.24h) 300 mg PO DAILY [facility] Last Admin: 06/24/24 08:28 Dose: 300 mg Cariprazine (Cariprazine Hcl 1.5 Mg Capsule) 4.5 mg PO DAILY [facility] Last Admin: 06/24/24 08:28 Dose: 4.5 mg Clonazepam (Clonazepam 0.5 Mg Tablet) 0.5 mg PO BID [facility] Last Admin: 06/24/24 08:28 Dose: 0.5 mg Clonidine HCl (Clonidine Hcl 0.1 Mg Tablet) 0.1 mg PO BEDTIME [facility]; Protocol Last Admin: 06/23/24 21:19 Dose: 0.1 mg Clonidine HCl (Clonidine Hcl 0.1 Mg Tablet) 0.1 mg PO Q4H PRN; Protocol PRN Reason: anxiety Last Admin: 06/24/24 11:30 Dose: 0.1 mg Hydroxyzine HCl (Hydroxyzine Hcl 25 Mg Tablet) 25 mg PO Q6H PRN PRN Reason: Anxiety Last Admin: 06/23/24 15:50 Dose: 25 mg Ibuprofen (Ibuprofen 600 Mg Tablet) 600 mg PO Q6H PRN PRN Reason: Pain, Severe (Pain Scale 7-10) Last Admin: 06/23/24 06:10 Dose: 600 mg Lactulose (Lactulose 20 Gm/30 Ml Solution) 40 gm PO DAILY [facility] Last Admin: 06/24/24 08:29 Dose: Not Given Lidocaine (Lidocaine 4 % Patch Adh..Patch) 1 patch TRANSDERMA DAILY [facility]; Protocol Last Admin: 06/24/24 08:27 Dose: 1 patch Lidocaine HCl (Lidocaine Hcl 2 % Urojet 10 Ml Jel.Pf.Luis) 10 ml TOPICAL BID PRN PRN Reason: Pain, Severe (Pain Scale 7-10) Last Admin: 06/19/24 22:05 Dose: 10 ml Loperamide HCl (Loperamide Hcl 2 Mg Capsule) 2 mg PO Q4H PRN PRN Reason: Diarrhea Magnesium Hydroxide (Milk Of Magnesia 30 Ml Oral.Susp) 30 ml PO DAILY PRN PRN Reason: Constipation Last Admin: 06/04/24 05:22 Dose: 30 ml Metronidazole (Metronidazole 500 Mg Tablet) 500 mg PO Q12H [facility] Stop: 06/25/24 20:01 Last Admin: 06/24/24 08:28 Dose: 500 mg Multi-Ingred Cream/Lotion/Oil/Oint (Mineral Oil/Petrolatum,White 106 Gm Tube) 1 appl TOPICAL BID PRN; Protocol PRN Reason: Dry Skin Last Admin: 06/13/24 21:44 Dose: 1 appl Patient Own (Belbuca (75mcg Buccal Films)) 1 each PO BID [facility] Last Admin: 06/24/24 10:03 Dose: 1 each Ondansetron HCl (Ondansetron Odt 4 Mg Tab.Rapdis) 4 mg TRANSLINGU Q6H PRN PRN Reason: Nausea and Vomiting Last Admin: 06/18/24 16:17 Dose: 4 mg Polyethylene Glycol (Polyethylene Glycol 3350 17 Gm Powd.Pack) 17 gm PO BID [facility] Last Admin: 06/24/24 08:29 Dose: Not Given Quetiapine Fumarate (Quetiapine Fumarate 50 Mg Tablet) 50 mg PO BEDTIME [facility] Last Admin: 06/23/24 21:19 Dose: 50 mg Senna/Docusate Sodium (Sennosides/Docusate Sodium Tablet) 2 tab PO BID [facility] Last Admin: 06/24/24 08:29 Dose: Not Given Simethicone (Simethicone 80 Mg Tab.Chew) 160 mg PO BID PRN PRN Reason: bloating/gas Last Admin: 06/07/24 11:06 Dose: 160 mg Tamsulosin HCl (Tamsulosin Hcl 0.4 Mg Capsule) 0.4 mg PO BEDTIME [facility] Last Admin: 06/23/24 21:19 Dose: 0.4 mg Allergies Allergies Allergy/AdvReac Type Severity Reaction Status Date / Time azithromycin Allergy Itching Verified 06/21/24 12:35 levofloxacin [From Levaquin] Allergy Nightmare Verified 06/21/24 12:35 nitrofurantoin Allergy Itching Verified 06/21/24 12:35 [From Macrodantin] Assessment & Plan Assessment & Plan (1) MDD (major depressive disorder), recurrent episode, moderate: Status: Acute Code(s): F33.1 - Major depressive disorder, recurrent, moderate (2) PTSD (post-traumatic stress disorder): Status: Acute Code(s): F43.10 - Post-traumatic stress disorder, unspecified (3) Voiding dysfunction: Status: Acute Code(s): N39.8 - Other specified disorders of urinary system Assessment and Plan: She has no urinary concerns at this time No further antibiotics for now (4) Urinary retention: Status: Acute Code(s): R33.9 - Retention of urine, unspecified (5) Jennifer-Danlos disease: Status: Acute Code(s): Q79.60 - Jennifer-Danlos syndrome, unspecified (6) Osteogenesis imperfecta: Status: Acute Code(s): Q78.0 - Osteogenesis imperfecta (7) Myofascial pain syndrome: Status: Acute Code(s): M79.18 - Myalgia, other site Plan HPI: Patient is a 39-year-old female with history of Jennifer Danlos syndrome, osteogenesis imperfecta, myofascial pain syndrome, migraines, juvenile osteoporosis, asthma, and mood disorder with history of rectocele, vaginal mesh surgery, urinary retention requiring Van catheterization, which was recently restarted. P atient?presented?to?[facility]?on?924?following?intentional?overdose?on?muscle?rel axers.??Patient?lujan mary?was?immediately?transferred?to?medical?floor?for?urinary?retention;?she?stab ilized?there?and?was?discharged.?? She?presents?again?for?overdose On?gabapentin?and?trazodone,?Which?she?asserts?was?not?intentional (though later admits it was),?saying?she?just?wanted?to?sleep?and?get?relief?from?chronic?pain H owever?she?agrees?it?was?impulsive?and?unsafe.??Patient?currently?denies?any?SI. ??She?reports?howeve r?that?life?has?been?very?difficultff?pain?medications,?having?been?prescribed?o pioids?consistently?for?the?past?24?years,? as?well?as?Ativan.??Patient?agrees?she?needs Help?stabilizing?and?coping. Relevant Medical/psych History: Patient was on opiates scheduled for 24 years to manage chronic medical comorbidities, resulting in hx of multiple fractures/falls and subsequent chronic pain. Pt denies any hx of substance abuse, including cannabis. She did screen positive for Fentanyl at first admission in October 2024 but is adamant she's never used it in her life and no quantitative labs done (leaving Fentanyl use inconclusive). Patients long-time physician of [address] Brigido Dietrich retired and new PCP tapered her off and discontinued all opioid pain management (also tapered and dc'd ativan). Patient reports she has been in constant pain and discomfort since then and has felt very frustrated and challenged to enjoy life, sometimes challenging her desire to live. Discussed?case?with?MAGDA Dunaway from pain management clinic: pt seen on 05/24. DESIGNER Gume agrees that patients medical comorbidities and subsequent chronic pain syndrome are commonly treated with opioid pain management. She recommends either Butrans patch or preferably Belbucha films (a form of Buprenorphin and titrating it to 150mg BID). Pt is also appropriate to get other nerve blocking treatments at pain clinic who will f/u with pt. Advertising Sales Manager spoke with patient's PCP Dr. Rubio at [facility] Dr. Rubio reports concurs that patient has Osteogenesis imprefecta, Ehlos Danlos Pt was on opioids for 24 years with prior PCP. With [facility] she was on Oxycodine 30mg QID and Oxycontin 30mg daily. In Sep 2023 pt was admitted to [facility] for concern for overdose. Additionally, there were other concerns including that [facility] notes referenced that patient reported being on a Fentanyl patch, which this provider had never prescribed. Additionally, there was hx of patient needing refills early and a report that her mother had used some of her medications. Also patient had significant weight loss which provider was concerned might have contributed to possible accidental overdose. Because of these concerns provider, clinic repeatedly called patient to come in and discuss pain management and reportedly reached out to her from October until January however patient did not respond or come in for appointments, having missed several. Provider reports that because of lack of communication and ongoing concern that was never addressed, Provider felt it was necessary to taper patient off pain medication which was started in January; patient was also tapered off Ativan. Provider agrees that patient does have significant medical history that is commonly treated with chronic pain medication. Advertising Sales Manager discussed options with them and Dr. Rubio agrees that starting patient on a buprenorphine product is an acceptable alternative to oxycodone. Vraylar since depressed and hx of manic-esque IMPRESSION: Patient's?depression?and?SI?seem?to?have significant?situational component?as?she?is?No?longer?receiving?pain?management?for?severe,?chronic?pain . P atient?has?no?known?history?of?substance?abuse.??Although?she?did?screen?positiv e?for?fentanyl (on?10/27/2023 and?05/18/2024), No?quantitative?analysis?was?done. ?This?mean that?fentanyl?screen?could?very?well?be?a?false-positive?result (which is not uncommon). Medical?decision?should?not?be?based?on?only?a?positive?screen?for?fentanyl. Patient does struggle with SI and with her chronic?pain?And?poor?support?will?likely?continue?to?produce?mood?instability.? ?Treatment?plan?will?include?staff writer/team?discussion?with Outpatient?PCP?regarding?plan?for?treatment. Hospital course: 06/05: Continue current regimen and plans 06/06. Continue current plans and regimen. Loperamide was put on hold. Started on simethicone by hospitalist. No indications of GI bleeding currently. -seen by GI: C/o constipation and worsening abdominal distension. Will order CT A/P with IV/PO contrast to assess for SBO/ileus though passage of gas and small amount of stool argues against complete obstruction; however she is at risk given multiple surgeries. If no obstruction will order bowel regimen to address constipation. Continue Van, Urology following. 06/07 Patient reports that she is depressed. She apologized for not being more forthcoming earlier on in says it took her awhile to admitted to herself but she does not want to be in this world anymore... And has a plan to jump in front of a train on discharge. Patient also reports that overdose on trazodone/gabapentin was actually an intentional suicide attempt. She reports a constant deluge of self-deprecating thoughts which include that she is worthless, discussed in, and fat. Advertising Sales Manager reviewed patient's history of anorexia and patient reports she sees herself as fat every day and eats very little (history of anorexia since 14 years old; was at brought up oral for a month with a feeding tube; she understands that this is a significant cause of her chronic constipation). Despite her SI, patient does want help getting better agrees to try antidepressant medication; staff writer reviewed options and risks/side effects and patient with [facility]. Also discussed pain medication management and patient agrees with Belbuca which she has heard of; she also agrees to non opioid pain management and will follow-up with pain management Clinic here at [facility]. Discussed relationship with her mother and she does not SA think her mother struggles with drug addiction but has caught her trying to get into her room, which patient keeps locked, looking for her medications which she has taken in the past. Patient said she reported this to her PCP. Patient does have history of being prescribed fentanyl patch however she did not like them and weaned herself off of them; set had some left over 06/08 Patient remains depressed with suicidal thinking however is trying to be hopeful and has tolerated Vraylar and says will continue, with increased dose; grateful for help getting Belbuca through prior authorization. -Discussed case with urology who recommends remaining with indwelling Van since failed voiding attempt on 06/03; will continue to follow -pt reported and nurse corroborated that Van bag containing urine was blood- tinged; discussed with Urologist, deemed likely micro trauma, and to keep van in place; recently failed voiding trial on 06/03 06/09 Patient reports she remains depressed, with SI. Patient also reports she had a very difficult time sleeping last night feeling very upset following a conversation she had on the phone with her mother. Patient expressed to her mother she is feeling hurt that her mom has not visited or called throughout her admission, even on patient's birthday; she says her mom was on apologetic. Patient also challenged her mom regarding her mom's past comment that patient could burn in hell with her father (who 2 years ago); mom remained unapologetic. Patient tells staff writer she has no idea why her mom said this other than that her mom is crazy... Subsequently patient reports that throughout the night, she had racing thoughts and no sleep. Discussed medications and patient and pt is eager to try Belbuca Films for pain management, available today dc'd gabapentin; pt said has never helped for pain or anxiety Adding clonidine at bedtime to help w/ sleep, anxiety 06/10 patient reports that Belbuca is helping with pain Patient remains very depressed and continues to have suicidal thoughts, saying she wants to end her life when she leaves the hospital. Patient Says I do not understand myself.. And laments she is gone most of her life without any suicidal ideation and only started this past September. Patient shared about some other reasons that it might be occurring and agrees that she still mourning the loss of her father who was her confidante; dealing with chronic pain having been off pain medications for several months and the ongoing struggles in her relationship with her mother and brother whom she feels are bullying; trying to come to terms with the fact that her mother simply isn't going to be the kind of mother she wishes she had. Patient agrees to medication management. 06/13 still very depressed with SI. Sleeping better however which is helpful and pain medications are also helpful. Patient agrees to increasing Vraylar; agrees to behavioral activation and attending groups. Despite ongoing thoughts about self-harm and ending her life when she is discharge, patient is also future oriented and says she would like to find a new place to live separate from her mother and brother. Asks for help going about that. 06/14 pt remains depressed, positive for SI with a plan but also future oriented talking about changing her living situation. Pt is engaged in treatment, trying to process her suicidal feelings and trying to be hopeful it will resolve. Agrees to adding Wellbutrin. -will likely add Wellbutrin; however, will probably keep Vraylar (maybe at lower dose) since pt has hx of manic-esque episodes (thought not formally diagnosed with bipolar as episode had several contributory factors) 06/15 remains depressed but processing feelings, doing worksheets, talking about her mother. Pt very anxious. -may increase wellbutrin for depression -considered starting Clonazepam 0.5mg BID; pt used to be on as much as 5mg of ativan daily; was weened off so hesitant to restart benzo's; 06/17 increase Wellbutrin 06/20 Over the weekend, patient assessed for infection, starting antibiotic; concerned that indwelling Van catheter is not sustainable; urology consulted and plan was for suprapubic catheter insertion for today. Patient however did not get fully informed of this and was upset to learn that a procedure was planned. She was however able to discuss this at length with staff writer and urology team and agreed to proceed. 06/21 Dr. Niño decided better to do a cystoscopy 1st and then decide whether not suprapubic catheter verse bladder stimulator; patient consents Seen by infectious disease: She has no urinary concerns at this time..No further antibiotics for now 06/22 Patient discussed conversation she had with her brother that was reassuring. Patient felt understood by him and supported which has lifted her mood. She feels that although she still depressed perhaps some of the depression is lifting and she starting to feel that there is hope of change in her situation. Patient remains very anxious. Earlier she had said she did not want to get back on benzodiazepines, having been on Ativan 5 mg for decades, weaned off only about a year ago. However given patient's struggles with anxiety and the fact that benzos have helped her in the past, discussed restarting a benzodiazepine, this time clonazepam 0.5 mg b.i.d.; staff writer discussed at length risks for addiction and the constant desire to have more. Patient said she very much does not want that to happen and feels that she will be able to minimize her use 06/23 Depressed, with intermittent SI. very anxious and with despairing thoughts has upcoming anniversary of her father's which is this July 03; will try to make it remembrance day and change the perspective. -Feeling better about catheter and plan; staff writer discussed with urology who met with patient and plan is for July 05 to move forward with stimulator -patient attending groups and engaged in treatment 06/24 a little better; mood up and down and still intermittent SI but patient is working on being hopeful employee numerous coping skills. Agrees to increase Wellbutrin PLAN: CV? Q 5s due to?indwelling?Van Continue clonazepam 0.5 mg b.i.d. Increase to WEllbutrin XL 450 mg for continued depression (pt adamant about not starting anti-depressant with risk of wt gain) Continue Vraylar 4.5 mg daily (Vraylar chosen since patient has depression but also history of manic type behaviors, possibly manic episode with some delusions and AH) Continue Belbuca 75mcg films BID for pain management (history of fentanyl patch, morphine, oxycodone, OxyContin) clonidine prn Continue Flagyl 500 q.12 hours x7 days placed for bacterial vaginosis; id examined patient and reports no need for any additional antibiotic regimen Urology appointment: July 05 for placement of bladder stimulator (With Dr. Leiva) Cystoscopy Findings: Bladder wall thickening, no vaginal or bladder mesh, no evidence outlet obstruction Hospitalist note 06/18 Receiving Pyridium UA 06/18 positive for 4+ bacteria, greater than 50 WBC, large leukocyte esterase positive nitrates Urine culture pending Urine culture 05/25 and 06/01 grew Raissa glabrata patient received Diflucan 200 mg daily from 06/01 through 06/15 Bacterial vaginosis PCR positive Raissa grew size/glabrata detected Due to persistent symptoms of vaginal pain/discharge recommend Infectious Disease consultation Follow urine culture. Patient educated on: diagnosis, medication risk/benefits and medical condition Patient educated on: diagnosis, medication risk/benefits and therapeutic strategies Informed Consent: understands Reason for continued inpatient stay Substantial Risk for: rapid decompensation Time Spent With Patient Time: Total time managing care of this patient today ____ minutes.
[2024-06-24 20:00] VITALS: BP 120/78; PULSE 96; RESP 16; TEMP 36.2; O2SAT 97
[2024-06-25 00:40] VITALS: BP 149/97
[2024-06-25] MEDS: clonazePAM 0.5 MG TABLET PO ×3 (00:40→23:32)
[2024-06-25] MEDS: QUEtiapine Fumarate 50 MG TABLET PO ×2 (00:40→23:32)
[2024-06-25] MEDS: cloNIDine HCL 0.1 MG TABLET PO ×3 (00:40→23:32)
[2024-06-25] MEDS: Tamsulosin HCL 0.4 MG CAPSULE PO ×2 (00:41→23:32)
[2024-06-25] MEDS: BUPRENORPHINE 75 MCG 1 EACH PO ×3 (00:49→23:33)
--- NOTE | 2024-06-25 06:45 | PC.NURSE ---
Patient said she thinks the scheduled Klonopin is helpful with getting some sleep. She also spent a long time working on a jigsaw puzzle.
[2024-06-25 08:00] VITALS: BP 134/85; PULSE 91; RESP 16; TEMP 36.6; O2SAT 100
--- NOTE | 2024-06-25 08:39 | P.PNPSI_ITS ---
Subjective Subjective Date of Service: 06/25/24 Reason For Visit: Sa Interim History: Met with patient; discussed with team; reviewed chart Patient continues to report depressed mood; told nurse that she remains purging daily and still plans to attempt suicide when she leaves. However on the unit, she seems more relaxed. Patient shared with mortgage or loan underwriter her plan to remember her father on the anniversary of his . Mental Status Exam Mental Status Exam Narrative: Pt is alert and oriented; behavior is cooperative, friendly and calm; patient in physical pain; cachectic; dressed in hospital attire with hair braided; adequate hygiene; mood is described as ok and affect congruent; eye contact appropriate; Speech is a normal rate, volume and prosody; psychomotor retardation present; thought process is organized and goal directed; Thought content is on working through feelings of despair and trying to be more hopeful; also on treatment and medical comorbidity; otherwise pertinent to relevant topics and without any delusional content, paranoid ideations or grandiosity; intermittent SI; no HI. There is no evidence of perceptual disturbance. Patients insight and judgment impaired but improving Diagnostics Vital Signs (24Hr): Vital Signs - 24 hr 06/24/24 11:30 06/24/24 20:00 06/25/24 00:40 Temperature 97.2 F Pulse Rate 96 Respiratory Rate 16 Blood Pressure 159/96 H 120/78 149/97 H Pulse Oximetry 97 Oxygen Delivery Method Room Air 06/25/24 08:00 Temperature 97.9 F Pulse Rate 91 Respiratory Rate 16 Blood Pressure 134/85 Pulse Oximetry 100 Oxygen Delivery Method Room Air BMI result Body Mass Index 17.2 Labs 06/06/24 08:20 06/06/24 08:20 Imaging Radiology Impressions: ITS Impressions KUB X-Ray 06/03/24 19:55 IMPRESSION: Increased amount of stool in the colon suggesting constipation. Please correlate with clinical presentation. Electronically signed by: Oneida Pham MD 06/04/2024 07:31 AM EDT Renal Ultrasound 06/04/24 14:49 IMPRESSION: No ultrasound evidence of renal obstruction or hydronephrosis. Limited visualization of the left kidney obscured by bowel gas, exam otherwise unremarkable. Electronically signed by: Oneida Pham MD 06/05/2024 12:56 PM EDT Abdomen/Pelvis CT 06/04/24 18:33 IMPRESSION: Severe constipation. Otherwise unremarkable CT abdomen and pelvis. Fleischner guidelines were followed. Electronically signed by: Deyvi Collins MD 06/04/2024 07:05 PM EDT RP Ribs X-Ray 06/19/24 10:15 IMPRESSION: 1. Mild degenerative changes of the left shoulder. 2. No left-sided rib fracture. Electronically signed by: Orlando Lindsey MD 06/19/2024 10:50 AM EDT RP Shoulder X-Ray 06/19/24 10:15 IMPRESSION: 1. Mild degenerative changes of the left shoulder. 2. No left-sided rib fracture. Electronically signed by: Orlando Lindsey MD 06/19/2024 10:50 AM EDT RP Medications Medications Current Medications Acetaminophen (Acetaminophen 325 Mg Tablet) 650 mg PO Q6H PRN PRN Reason: Headache/Pain Mild Scale (1-3) Last Admin: 06/22/24 03:24 Dose: 650 mg Al Hydroxide/Mg Hydroxide (Magnesium Hydrox/Alum Hydrox 30 Ml Oral.Susp) 30 ml PO Q6H PRN PRN Reason: Heartburn/Nausea Albuterol Sulfate (Albuterol Sulfate 90 Mcg 8 Gm Inhaler) 2 puff INHALE QID PRN PRN Reason: Shortness Of Breath Ascorbic Acid (Ascorbic Acid 500 Mg Tablet) 1,000 mg PO DAILY [facility] Last Admin: 06/24/24 08:27 Dose: 1,000 mg Bisacodyl (Bisacodyl 5 Mg Tablet.Dr) 10 mg PO BEDTIME [facility] Last Admin: 06/25/24 00:44 Dose: Not Given Bupropion HCl (Bupropion Hcl Xl 150 Mg Tab.Er.24h) 450 mg PO DAILY [facility] Cariprazine (Cariprazine Hcl 1.5 Mg Capsule) 4.5 mg PO DAILY [facility] Last Admin: 06/24/24 08:28 Dose: 4.5 mg Clonazepam (Clonazepam 0.5 Mg Tablet) 0.5 mg PO BID [facility] Last Admin: 06/25/24 00:40 Dose: 0.5 mg Clonidine HCl (Clonidine Hcl 0.1 Mg Tablet) 0.1 mg PO BEDTIME [facility]; Protocol Last Admin: 06/25/24 00:40 Dose: 0.1 mg Clonidine HCl (Clonidine Hcl 0.1 Mg Tablet) 0.1 mg PO Q4H PRN; Protocol PRN Reason: anxiety Last Admin: 06/24/24 11:30 Dose: 0.1 mg Hydroxyzine HCl (Hydroxyzine Hcl 25 Mg Tablet) 25 mg PO Q6H PRN PRN Reason: Anxiety Last Admin: 06/23/24 15:50 Dose: 25 mg Ibuprofen (Ibuprofen 600 Mg Tablet) 600 mg PO Q6H PRN PRN Reason: Pain, Severe (Pain Scale 7-10) Last Admin: 06/23/24 06:10 Dose: 600 mg Lactulose (Lactulose 20 Gm/30 Ml Solution) 40 gm PO DAILY [facility] Last Admin: 06/24/24 08:29 Dose: Not Given Lidocaine (Lidocaine 4 % Patch Adh..Patch) 1 patch TRANSDERMA DAILY [facility]; Protocol Last Admin: 06/24/24 08:27 Dose: 1 patch Lidocaine HCl (Lidocaine Hcl 2 % Urojet 10 Ml Jel.Pf.Luis) 10 ml TOPICAL BID PRN PRN Reason: Pain, Severe (Pain Scale 7-10) Last Admin: 06/19/24 22:05 Dose: 10 ml Loperamide HCl (Loperamide Hcl 2 Mg Capsule) 2 mg PO Q4H PRN PRN Reason: Diarrhea Magnesium Hydroxide (Milk Of Magnesia 30 Ml Oral.Susp) 30 ml PO DAILY PRN PRN Reason: Constipation Last Admin: 06/04/24 05:22 Dose: 30 ml Metronidazole (Metronidazole 500 Mg Tablet) 500 mg PO Q12H [facility] Stop: 06/25/24 20:01 Last Admin: 06/24/24 22:36 Dose: 500 mg Multi-Ingred Cream/Lotion/Oil/Oint (Mineral Oil/Petrolatum,White 106 Gm Tube) 1 appl TOPICAL BID PRN; Protocol PRN Reason: Dry Skin Last Admin: 06/13/24 21:44 Dose: 1 appl Patient Own (Belbuca (75mcg Buccal Films)) 1 each PO BID [facility] Last Admin: 06/25/24 00:49 Dose: 1 each Ondansetron HCl (Ondansetron Odt 4 Mg Tab.Rapdis) 4 mg TRANSLINGU Q6H PRN PRN Reason: Nausea and Vomiting Last Admin: 06/18/24 16:17 Dose: 4 mg Polyethylene Glycol (Polyethylene Glycol 3350 17 Gm Powd.Pack) 17 gm PO BID [facility] Last Admin: 06/25/24 00:44 Dose: Not Given Quetiapine Fumarate (Quetiapine Fumarate 50 Mg Tablet) 50 mg PO BEDTIME [facility] Last Admin: 06/25/24 00:40 Dose: 50 mg Senna/Docusate Sodium (Sennosides/Docusate Sodium Tablet) 2 tab PO BID [facility] Last Admin: 06/25/24 00:45 Dose: Not Given Simethicone (Simethicone 80 Mg Tab.Chew) 160 mg PO BID PRN PRN Reason: bloating/gas Last Admin: 06/07/24 11:06 Dose: 160 mg Tamsulosin HCl (Tamsulosin Hcl 0.4 Mg Capsule) 0.4 mg PO BEDTIME [facility] Last Admin: 06/25/24 00:41 Dose: 0.4 mg Allergies Allergies Allergy/AdvReac Type Severity Reaction Status Date / Time azithromycin Allergy Itching Verified 06/21/24 12:35 levofloxacin [From Levaquin] Allergy Nightmare Verified 06/21/24 12:35 nitrofurantoin Allergy Itching Verified 06/21/24 12:35 [From Macrodantin] Assessment & Plan Assessment & Plan (1) MDD (major depressive disorder), recurrent episode, moderate: Status: Acute Code(s): F33.1 - Major depressive disorder, recurrent, moderate (2) PTSD (post-traumatic stress disorder): Status: Acute Code(s): F43.10 - Post-traumatic stress disorder, unspecified (3) Voiding dysfunction: Status: Acute Code(s): N39.8 - Other specified disorders of urinary system Assessment and Plan: She has no urinary concerns at this time No further antibiotics for now (4) Urinary retention: Status: Acute Code(s): R33.9 - Retention of urine, unspecified (5) Jennifer-Danlos disease: Status: Acute Code(s): Q79.60 - Jennifer-Danlos syndrome, unspecified (6) Osteogenesis imperfecta: Status: Acute Code(s): Q78.0 - Osteogenesis imperfecta (7) Myofascial pain syndrome: Status: Acute Code(s): M79.18 - Myalgia, other site Plan HPI: Patient is a 39-year-old female with history of Jennifer Danlos syndrome, osteogenesis imperfecta, myofascial pain syndrome, migraines, juvenile osteoporosis, asthma, and mood disorder with history of rectocele, vaginal mesh surgery, urinary retention requiring Van catheterization, which was recently restarted. P atient?presented?to?[facility]?on?0925?following?intentional?overdose?on?muscle?rel axers.??Patient?lujan mary?was?immediately?transferred?to?medical?floor?for?urinary?retention;?she?stab ilized?there?and?was?discharged.?? She?presents?again?for?overdose On?gabapentin?and?trazodone,?Which?she?asserts?was?not?intentional (though later admits it was),?saying?she?just?wanted?to?sleep?and?get?relief?from?chronic?pain H owever?she?agrees?it?was?impulsive?and?unsafe.??Patient?currently?denies?any?SI. ??She?reports?howeve r?that?life?has?been?very?difficultff?pain?medications,?having?been?prescribed?o pioids?consistently?for?the?past?24?years,? as?well?as?Ativan.??Patient?agrees?she?needs Help?stabilizing?and?coping. Relevant Medical/psych History: Patient was on opiates scheduled for 24 years to manage chronic medical comorbidities, resulting in hx of multiple fractures/falls and subsequent chronic pain. Pt denies any hx of substance abuse, including cannabis. She did screen positive for Fentanyl at first admission in October 2024 but is adamant she's never used it in her life and no quantitative labs done (leaving Fentanyl use inconclusive). Patients long-time physician of [address] Brigido Dietrich retired and new PCP tapered her off and discontinued all opioid pain management (also tapered and dc'd ativan). Patient reports she has been in constant pain and discomfort since then and has felt very frustrated and challenged to enjoy life, sometimes challenging her desire to live. Discussed?case?with?MAGDA Dunaway from pain management clinic: pt seen on 05/24. MAGDA Dunaway agrees that patients medical comorbidities and subsequent chronic pain syndrome are commonly treated with opioid pain management. She recommends either Butrans patch or preferably Belbucha films (a form of Buprenorphin and titrating it to 150mg BID). Pt is also appropriate to get other nerve blocking treatments at pain clinic who will f/u with pt. Desizing Machine Operator spoke with patient's PCP Dr. Rubio [facility] Dr. Rubio reports concurs that patient has Osteogenesis imprefecta, Ehlos Danlos Pt was on opioids for 24 years with prior PCP. With [facility] she was on Oxycodine 30mg QID and Oxycontin 30mg daily. In Sep 2023 pt was admitted to [facility] for concern for overdose. Additionally, there were other concerns including that [facility] notes referenced that patient reported being on a Fentanyl patch, which this provider had never prescribed. Additionally, there was hx of patient needing refills early and a report that her mother had used some of her medications. Also patient had significant weight loss which provider was concerned might have contributed to possible accidental overdose. Because of these concerns provider, clinic repeatedly called patient to come in and discuss pain management and reportedly reached out to her from October until January however patient did not respond or come in for appointments, having missed several. Provider reports that because of lack of communication and ongoing concern that was never addressed, Provider felt it was necessary to taper patient off pain medication which was started in January; patient was also tapered off Ativan. Provider agrees that patient does have significant medical history that is commonly treated with chronic pain medication. Desizing Machine Operator discussed options with them and Dr. Rubio agrees that starting patient on a buprenorphine product is an acceptable alternative to oxycodone. Vraylar since depressed and hx of manic-esque IMPRESSION: Patient's?depression?and?SI?seem?to?have significant?situational component?as?she?is?No?longer?receiving?pain?management?for?severe,?chronic?pain . P atient?has?no?known?history?of?substance?abuse.??Although?she?did?screen?positiv e?for?fentanyl (on?10/27/2023 and?05/18/2024), No?quantitative?analysis?was?done. ?This?mean that?fentanyl?screen?could?very?well?be?a?false-positive?result (which is not uncommon). Medical?decision?should?not?be?based?on?only?a?positive?screen?for?fentanyl. Patient does struggle with SI and with her chronic?pain?And?poor?support?will?likely?continue?to?produce?mood?instability.? ?Treatment?plan?will?include?mortgage or loan underwriter/team?discussion?with Outpatient?PCP?regarding?plan?for?treatment. Hospital course: 06/05: Continue current regimen and plans 06/06. Continue current plans and regimen. Loperamide was put on hold. Started on simethicone by hospitalist. No indications of GI bleeding currently. -seen by GI: C/o constipation and worsening abdominal distension. Will order CT A/P with IV/PO contrast to assess for SBO/ileus though passage of gas and small amount of stool argues against complete obstruction; however she is at risk given multiple surgeries. If no obstruction will order bowel regimen to address constipation. Continue Opal, Urology following. 06/07 Patient reports that she is depressed. She apologized for not being more forthcoming earlier on in says it took her awhile to admitted to herself but she does not want to be in this world anymore... And has a plan to jump in front of a train on discharge. Patient also reports that overdose on trazodone/gabapentin was actually an intentional suicide attempt. She reports a constant deluge of self-deprecating thoughts which include that she is worthless, discussed in, and fat. 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 Despite her SI, patient does want help getting better agrees to try antidepressant medication; mortgage or loan underwriter reviewed options and risks/side effects and patient with [facility]. Also discussed pain medication management and patient agrees with Belbuca which she has heard of; she also agrees to non opioid pain management and will follow-up with pain management Clinic here at [facility]. Discussed relationship with her mother and she does not SA think her mother struggles with drug addiction but has caught her trying to get into her room, which patient keeps locked, looking for her medications which she has taken in the past. Patient said she reported this to her PCP. Patient does have history of being prescribed fentanyl patch however she did not like them and weaned herself off of them; set had some left over 06/08 Patient remains depressed with suicidal thinking however is trying to be hopeful and has tolerated Vraylar and says will continue, with increased dose; grateful for help getting Belbuca through prior authorization. -Discussed case with urology who recommends remaining with indwelling Van since failed voiding attempt on 06/03; will continue to follow -pt reported and nurse corroborated that Van bag containing urine was blood- tinged; discussed with Urologist, deemed likely micro trauma, and to keep van in place; recently failed voiding trial on 06/03 06/09 Patient reports she remains depressed, with SI. Patient also reports she had a very difficult time sleeping last night feeling very upset following a conversation she had on the phone with her mother. Patient expressed to her mother she is feeling hurt that her mom has not visited or called throughout her admission, even on patient's birthday; she says her mom was on apologetic. Patient also challenged her mom regarding her mom's past comment that patient could burn in hell with her father (who 2 years ago); mom remained unapologetic. Patient tells mortgage or loan underwriter she has no idea why her mom said this other than that her mom is crazy... Subsequently patient reports that throughout the night, she had racing thoughts and no sleep. Discussed medications and patient and pt is eager to try Belbuca Films for pain management, available today dc'd gabapentin; pt said has never helped for pain or anxiety Adding clonidine at bedtime to help w/ sleep, anxiety 06/10 patient reports that Belbuca is helping with pain Patient remains very depressed and continues to have suicidal thoughts, saying she wants to end her life when she leaves the hospital. Patient Says I do not understand myself.. And laments she is gone most of her life without any suicidal ideation and only started this past September. Patient shared about some other reasons that it might be occurring and agrees that she still mourning the loss of her father who was her confidante; dealing with chronic pain having been off pain medications for several months and the ongoing struggles in her relationship with her mother and brother whom she feels are bullying; trying to come to terms with the fact that her mother simply isn't going to be the kind of mother she wishes she had. Patient agrees to medication management. 06/13 still very depressed with SI. Sleeping better however which is helpful and pain medications are also helpful. Patient agrees to increasing Vraylar; agrees to behavioral activation and attending groups. Despite ongoing thoughts about self-harm and ending her life when she is discharge, patient is also future oriented and says she would like to find a new place to live separate from her mother and brother. Asks for help going about that. 06/14 pt remains depressed, positive for SI with a plan but also future oriented talking about changing her living situation. Pt is engaged in treatment, trying to process her suicidal feelings and trying to be hopeful it will resolve. Agrees to adding Wellbutrin. -will likely add Wellbutrin; however, will probably keep Vraylar (maybe at lower dose) since pt has hx of manic-esque episodes (thought not formally diagnosed with bipolar as episode had several contributory factors) 06/15 remains depressed but processing feelings, doing worksheets, talking about her mother. Pt very anxious. -may increase wellbutrin for depression -considered starting Clonazepam 0.5mg BID; pt used to be on as much as 5mg of ativan daily; was weened off so hesitant to restart benzo's; 06/17 increase Wellbutrin 06/20 Over the weekend, patient assessed for infection, starting antibiotic; concerned that indwelling Van catheter is not sustainable; urology consulted and plan was for suprapubic catheter insertion for today. Patient however did not get fully informed of this and was upset to learn that a procedure was planned. She was however able to discuss this at length with mortgage or loan underwriter and urology team and agreed to proceed. 06/21 Dr. Niño decided better to do a cystoscopy 1st and then decide whether not suprapubic catheter verse bladder stimulator; patient consents Seen by infectious disease: She has no urinary concerns at this time..No further antibiotics for now 06/22 Patient discussed conversation she had with her brother that was reassuring. Patient felt understood by him and supported which has lifted her mood. She feels that although she still depressed perhaps some of the depression is lifting and she starting to feel that there is hope of change in her situation. Patient remains very anxious. Earlier she had said she did not want to get back on benzodiazepines, having been on Ativan 5 mg for decades, weaned off only about a year ago. However given patient's struggles with anxiety and the fact that benzos have helped her in the past, discussed restarting a benzodiazepine, this time clonazepam 0.5 mg b.i.d.; mortgage or loan underwriter discussed at length risks for addiction and the constant desire to have more. Patient said she very much does not want that to happen and feels that she will be able to minimize her use 06/23 Depressed, with intermittent SI. very anxious and with despairing thoughts has upcoming anniversary of her father's which is this July 03; will try to make it remembrance day and change the perspective. -Feeling better about catheter and plan; mortgage or loan underwriter discussed with urology who met with patient and plan is for July 05 to move forward with stimulator -patient attending groups and engaged in treatment 06/24 a little better; mood up and down and still intermittent SI but patient is working on being hopeful employee numerous coping skills. Agrees to increase Wellbutrin 06/25 Patient continues to report depressed mood; told nurse that she remains purging daily and still plans to attempt suicide when she leaves. However on the unit, she seems more relaxed. Patient shared with mortgage or loan underwriter her plan to remember her father on the anniversary of his . 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 Currently she is eating enough. As this is a chronic problem that that has gone on for over 20 years, and with which patient has been able to cope with on her own, without needing hospitalizations or [place] admissions since teenage years, mortgage or loan underwriter does not expect that it will resolve during this inpatient stay and does not believe that it needs to. PLAN: CV? Q 5s due to?indwelling?Van Continue clonazepam 0.5 mg b.i.d. Increase to WEllbutrin XL 450 mg for continued depression (pt adamant about not starting anti-depressant with risk of wt gain) Continue Vraylar 4.5 mg daily (Vraylar chosen since patient has depression but also history of manic type behaviors, possibly manic episode with some delusions and AH) Continue Belbuca 75mcg films BID for pain management (history of fentanyl patch, morphine, oxycodone, OxyContin) clonidine prn Continue Flagyl 500 q.12 hours x7 days placed for bacterial vaginosis; id examined patient and reports no need for any additional antibiotic regimen Urology appointment: July 05 for placement of bladder stimulator (With Dr. Leiva) Cystoscopy Findings: Bladder wall thickening, no vaginal or bladder mesh, no evidence outlet obstruction Hospitalist note 06/18 Receiving Pyridium UA 06/18 positive for 4+ bacteria, greater than 50 WBC, large leukocyte esterase positive nitrates Urine culture pending Urine culture 05/25 and 06/01 grew Raissa glabrata patient received Diflucan 200 mg daily from 06/01 through 06/15 Bacterial vaginosis PCR positive Raissa grew size/glabrata detected Due to persistent symptoms of vaginal pain/discharge recommend Infectious Disease consultation Follow urine culture. Patient educated on: diagnosis, medication risk/benefits and medical condition Patient educated on: diagnosis, medication risk/benefits and therapeutic strategies Informed Consent: understands Reason for continued inpatient stay Substantial Risk for: rapid decompensation Time Spent With Patient Time: Total time managing care of this patient today ____ minutes.
[2024-06-25] MEDS: buPROPion HCl XL 150 MG TAB.ER.24H 450 MG PO (09:23)
[2024-06-25] MEDS: metroNIDAZOLE 500 MG TABLET PO ×2 (09:23→21:46)
[2024-06-25] MEDS: Cariprazine HCl 1.5 MG CAPSULE 4.5 MG PO (09:23)
[2024-06-25] MEDS: Sennosides/Docusate Sodium TABLET 2 TAB PO (09:24)
[2024-06-25] MEDS: Ascorbic Acid 500 MG TABLET 1000 MG PO (09:24)
[2024-06-25] MEDS: Lidocaine 4 % Patch ADH..PATCH 1 PATCH TRANSDERMA (09:45)
[2024-06-25 11:14] VITALS: BP 166/100
[2024-06-25 20:00] VITALS: BP 133/77; PULSE 98; RESP 16; TEMP 36.8; O2SAT 96
[2024-06-25 23:32] VITALS: BP 129/104
[2024-06-26] VITALS (7 sets, daily range): BP systolic 110–157; BP diastolic 72–108; PULSE 74–116; RESP 15–18; TEMP 36.3–37.2; O2SAT 84–100
[2024-06-26] MEDS: cloNIDine HCL 0.1 MG TABLET PO ×5 (05:20→23:49)
[2024-06-26] MEDS: Ibuprofen 600 MG TABLET PO ×2 (05:21→23:48)
[2024-06-26] MEDS: BUPRENORPHINE 75 MCG 1 EACH PO ×2 (08:39→23:08)
[2024-06-26] MEDS: buPROPion HCl XL 150 MG TAB.ER.24H 450 MG PO (08:40)
[2024-06-26] MEDS: Cariprazine HCl 1.5 MG CAPSULE 4.5 MG PO (08:40)
[2024-06-26] MEDS: Ascorbic Acid 500 MG TABLET 1000 MG PO (08:41)
[2024-06-26] MEDS: clonazePAM 0.5 MG TABLET PO ×2 (08:41→23:07)
[2024-06-26] MEDS: Lidocaine 4 % Patch ADH..PATCH 1 PATCH TRANSDERMA (08:41)
--- NOTE | 2024-06-26 09:35 | P.PNPSI_ITS ---
Subjective Subjective Date of Service: 06/26/24 Reason For Visit: Sa Interim History: Met with patient; discussed with team depressed; pt says can't stop crying...can't stop thinking about suicide. Pt remembering the week prior to her dads , did not get to see him and feeling guilty. Feeling unwanted...upset about indwelling catheter. Trying to change her perspective and realize it's not her fault..dad loved her... -tolerating wellbutrin increase Mental Status Exam Mental Status Exam Narrative: Pt is alert and oriented; behavior is cooperative, tearful; patient in physical pain; cachectic; dressed in hospital attire with hair braided; adequate hygiene; mood is described as depressed and affect congruent, downcast, tearful; eye contact appropriate; Speech is a normal rate, volume and prosody; psychomotor retardation present; thought process is organized and goal directed; Thought content is on guilty feelings, missing father, hopeless; medical comorbidities; otherwise pertinent to relevant topics and without any delusional content, paranoid ideations or grandiosity; increased SI thoughts; no HI. There is no evidence of perceptual disturbance. Patients insight and judgment impaired Diagnostics Vital Signs (24Hr): Vital Signs - 24 hr 06/25/24 11:14 06/25/24 20:00 06/25/24 23:32 Temperature 98.2 F Pulse Rate 98 Respiratory Rate 16 Blood Pressure 166/100 H 133/77 129/104 H Pulse Oximetry 96 Oxygen Delivery Method Room Air 06/26/24 05:20 06/26/24 08:00 Temperature 97.9 F Pulse Rate 89 Respiratory Rate 16 Blood Pressure 157/108 H 110/77 Pulse Oximetry 100 Oxygen Delivery Method Room Air BMI result Body Mass Index 17.2 Labs 06/06/24 08:20 06/06/24 08:20 Imaging Radiology Impressions: ITS Impressions KUB X-Ray 06/03/24 19:55 IMPRESSION: Increased amount of stool in the colon suggesting constipation. Please correlate with clinical presentation. Electronically signed by: Oneida Pham MD 06/04/2024 07:31 AM EDT Renal Ultrasound 06/04/24 14:49 IMPRESSION: No ultrasound evidence of renal obstruction or hydronephrosis. Limited visualization of the left kidney obscured by bowel gas, exam otherwise unremarkable. Electronically signed by: Oneida Pham MD 06/05/2024 12:56 PM EDT RP Abdomen/Pelvis CT 06/04/24 18:33 IMPRESSION: Severe constipation. Otherwise unremarkable CT abdomen and pelvis. Fleischner guidelines were followed. Electronically signed by: Deyvi Collins MD 06/04/2024 07:05 PM EDT RP Ribs X-Ray 06/19/24 10:15 IMPRESSION: 1. Mild degenerative changes of the left shoulder. 2. No left-sided rib fracture. Electronically signed by: Orlando Lindsey MD 06/19/2024 10:50 AM EDT RP Shoulder X-Ray 06/19/24 10:15 IMPRESSION: 1. Mild degenerative changes of the left shoulder. 2. No left-sided rib fracture. Electronically signed by: Orlando Lindsey MD 06/19/2024 10:50 AM EDT RP Medications Medications Current Medications Acetaminophen (Acetaminophen 325 Mg Tablet) 650 mg PO Q6H PRN PRN Reason: Headache/Pain Mild Scale (1-3) Last Admin: 06/22/24 03:24 Dose: 650 mg Al Hydroxide/Mg Hydroxide (Magnesium Hydrox/Alum Hydrox 30 Ml Oral.Susp) 30 ml PO Q6H PRN PRN Reason: Heartburn/Nausea Albuterol Sulfate (Albuterol Sulfate 90 Mcg 8 Gm Inhaler) 2 puff INHALE QID PRN PRN Reason: Shortness Of Breath Ascorbic Acid (Ascorbic Acid 500 Mg Tablet) 1,[address] [facility] Last Admin: 06/26/24 08:41 Dose: 1,000 mg Bisacodyl (Bisacodyl 5 Mg Tablet.Dr) [address] [facility] Last Admin: 06/25/24 23:42 Dose: Not Given Bupropion HCl (Bupropion Hcl Xl 150 Mg Tab.Er.24h) [address] [facility] Last Admin: 06/26/24 08:40 Dose: 450 mg Cariprazine (Cariprazine Hcl 1.5 Mg Capsule) 4.[address] [facility] Last Admin: 06/26/24 08:40 Dose: 4.5 mg Clonazepam (Clonazepam 0.5 Mg Tablet) 0.5 mg PO BID [facility] Last Admin: 06/26/24 08:41 Dose: 0.5 mg Clonidine HCl (Clonidine Hcl 0.1 Mg Tablet) 0.1 mg PO BEDTIME [facility]; Protocol Last Admin: 06/25/24 23:32 Dose: 0.1 mg Clonidine HCl (Clonidine Hcl 0.1 Mg Tablet) 0.1 mg PO Q4H PRN; Protocol PRN Reason: anxiety Last Admin: 06/26/24 05:20 Dose: 0.1 mg Hydroxyzine HCl (Hydroxyzine Hcl 25 Mg Tablet) 25 mg PO Q6H PRN PRN Reason: Anxiety Last Admin: 06/23/24 15:50 Dose: 25 mg Ibuprofen (Ibuprofen 600 Mg Tablet) 600 mg PO Q6H PRN PRN Reason: Pain, Severe (Pain Scale 7-10) Last Admin: 06/26/24 05:21 Dose: 600 mg Lactulose (Lactulose 20 Gm/30 Ml Solution) 40 gm PO DAILY [facility] Last Admin: 06/26/24 08:54 Dose: Not Given Lidocaine (Lidocaine 4 % Patch Adh..Patch) [address] [facility]; Protocol Last Admin: 06/26/24 08:41 Dose: 1 patch Lidocaine HCl (Lidocaine Hcl 2 % Urojet 10 Ml Jel.Pf.Luis) 10 ml TOPICAL BID PRN PRN Reason: Pain, Severe (Pain Scale 7-10) Last Admin: 06/19/24 22:05 Dose: 10 ml Loperamide HCl (Loperamide Hcl 2 Mg Capsule) 2 mg PO Q4H PRN PRN Reason: Diarrhea Magnesium Hydroxide (Milk Of Magnesia 30 Ml Oral.Susp) 30 ml PO DAILY PRN PRN Reason: Constipation Last Admin: 06/04/24 05:22 Dose: 30 ml Multi-Ingred Cream/Lotion/Oil/Oint (Mineral Oil/Petrolatum,White 106 Gm Tube) 1 appl TOPICAL BID PRN; Protocol PRN Reason: Dry Skin Last Admin: 06/13/24 21:44 Dose: 1 appl Patient Own (Belbuca (75mcg Buccal Films)) 1 each PO BID [facility] Last Admin: 06/26/24 08:39 Dose: 1 each Ondansetron HCl (Ondansetron Odt 4 Mg Tab.Rapdis) 4 mg TRANSLINGU Q6H PRN PRN Reason: Nausea and Vomiting Last Admin: 06/18/24 16:17 Dose: 4 mg Polyethylene Glycol (Polyethylene Glycol 3350 17 Gm Powd.Pack) [address] [facility] Last Admin: 06/26/24 08:55 Dose: Not Given Quetiapine Fumarate (Quetiapine Fumarate 50 Mg Tablet) [address] [facility] Last Admin: 06/25/24 23:32 Dose: 50 mg Senna/Docusate Sodium (Sennosides/Docusate Sodium Tablet) [address] [facility] Last Admin: 06/26/24 08:55 Dose: Not Given Simethicone (Simethicone 80 Mg Tab.Chew) 160 mg PO BID PRN PRN Reason: bloating/gas Last Admin: 06/07/24 11:06 Dose: 160 mg Tamsulosin HCl (Tamsulosin Hcl 0.4 Mg Capsule) 0.[address] [facility] Last Admin: 06/25/24 23:32 Dose: 0.4 mg Allergies Allergies Allergy/AdvReac Type Severity Reaction Status Date / Time azithromycin Allergy Itching Verified 06/21/24 12:35 levofloxacin [From Levaquin] Allergy Nightmare Verified 06/21/24 12:35 nitrofurantoin Allergy Itching Verified 06/21/24 12:35 [From Macrodantin] Assessment & Plan Assessment & Plan (1) MDD (major depressive disorder), recurrent episode, moderate: Status: Acute Code(s): F33.1 - Major depressive disorder, recurrent, moderate (2) PTSD (post-traumatic stress disorder): Status: Acute Code(s): F43.10 - Post-traumatic stress disorder, unspecified (3) Voiding dysfunction: Status: Acute Code(s): N39.8 - Other specified disorders of urinary system Assessment and Plan: She has no urinary concerns at this time No further antibiotics for now (4) Urinary retention: Status: Acute Code(s): R33.9 - Retention of urine, unspecified (5) Jennifer-Danlos disease: Status: Acute Code(s): Q79.60 - Jennifer-Danlos syndrome, unspecified (6) Osteogenesis imperfecta: Status: Acute Code(s): Q78.0 - Osteogenesis imperfecta (7) Myofascial pain syndrome: Status: Acute Code(s): M79.18 - Myalgia, other site Plan HPI: Patient is a 39-year-old female with history of Jennifer Danlos syndrome, osteogenesis imperfecta, myofascial pain syndrome, migraines, juvenile osteoporosis, asthma, and mood disorder with history of rectocele, vaginal mesh surgery, urinary retention requiring Van catheterization, which was recently restarted. P atient?presented?to?[place]?on?924?following?intentional?overdose?on?muscle?rel axers.??Patient?lujan mary?was?immediately?transferred?to?medical?floor?for?urinary?retention;?she?stab ilized?there?and?was?discharged.?? She?presents?again?for?overdose On?gabapentin?and?trazodone,?Which?she?asserts?was?not?intentional (though later admits it was),?saying?she?just?wanted?to?sleep?and?get?relief?from?chronic?pain H owever?she?agrees?it?was?impulsive?and?unsafe.??Patient?currently?denies?any?SI. ??She?reports?howeve r?that?life?has?been?very?difficultff?pain?medications,?having?been?prescribed?o pioids?consistently?for?the?past?24?years,? as?well?as?Ativan.??Patient?agrees?she?needs Help?stabilizing?and?coping. Relevant Medical/psych History: Patient was on opiates scheduled for 24 years to manage chronic medical comorbidities, resulting in hx of multiple fractures/falls and subsequent chronic pain. Pt denies any hx of substance abuse, including cannabis. She did screen positive for Fentanyl at first admission in October 2024 but is adamant she's never used it in her life and no quantitative labs done (leaving Fentanyl use inconclusive). Patients long-time physician of [address] Brigido Dietrich retired and new PCP tapered her off and discontinued all opioid pain management (also tapered and dc'd ativan). Patient reports she has been in constant pain and discomfort since then and has felt very frustrated and challenged to enjoy life, sometimes challenging her desire to live. Discussed?case?with?MAGDA Dunaway from pain management clinic: pt seen on 05/24. JANITORIAL ACCOUNT MANAGER Gume agrees that patients medical comorbidities and subsequent chronic pain syndrome are commonly treated with opioid pain management. She recommends either Butrans patch or preferably Belbucha films (a form of Buprenorphin and titrating it to 150mg BID). Pt is also appropriate to get other nerve blocking treatments at pain clinic who will f/u with pt. Activities Concierge spoke with patient's PCP Dr. Rubio at [facility] Dr. Rubio reports concurs that patient has Osteogenesis imprefecta, Ehlos Danlos Pt was on opioids for 24 years with prior PCP. With [facility] she was on Oxycodine 30mg QID and Oxycontin 30mg daily. In Sep 2023 pt was admitted to [facility] for concern for overdose. Additionally, there were other concerns including that [facility] notes referenced that patient reported being on a Fentanyl patch, which this provider had never prescribed. Additionally, there was hx of patient needing refills early and a report that her mother had used some of her medications. Also patient had significant weight loss which provider was concerned might have contributed to possible accidental overdose. Because of these concerns provider, clinic repeatedly called patient to come in and discuss pain management and reportedly reached out to her from October until January however patient did not respond or come in for appointments, having missed several. Provider reports that because of lack of communication and ongoing concern that was never addressed, Provider felt it was necessary to taper patient off pain medication which was started in January; patient was also tapered off Ativan. Provider agrees that patient does have significant medical history that is commonly treated with chronic pain medication. Activities Concierge discussed options with them and Dr. Rubio agrees that starting patient on a buprenorphine product is an acceptable alternative to oxycodone. Vraylar since depressed and hx of manic-esque IMPRESSION: Patient's?depression?and?SI?seem?to?have significant?situational component?as?she?is?No?longer?receiving?pain?management?for?severe,?chronic?pain . P atient?has?no?known?history?of?substance?abuse.??Although?she?did?screen?positiv e?for?fentanyl (on?10/27/2023 and?05/18/2024), No?quantitative?analysis?was?done. ?This?mean that?fentanyl?screen?could?very?well?be?a?false-positive?result (which is not uncommon). Medical?decision?should?not?be?based?on?only?a?positive?screen?for?fentanyl. Patient does struggle with SI and with her chronic?pain?And?poor?support?will?likely?continue?to?produce?mood?instability.? ?Treatment?plan?will?include?automatic typewriter inspector/team?discussion?with Outpatient?PCP?regarding?plan?for?treatment. Hospital course: 06/05: Continue current regimen and plans 06/06. Continue current plans and regimen. Loperamide was put on hold. Started on simethicone by hospitalist. No indications of GI bleeding currently. -seen by GI: C/o constipation and worsening abdominal distension. Will order CT A/P with IV/PO contrast to assess for SBO/ileus though passage of gas and small amount of stool argues against complete obstruction; however she is at risk given multiple surgeries. If no obstruction will order bowel regimen to address constipation. Continue Van, Urology following. 06/07 Patient reports that she is depressed. She apologized for not being more forthcoming earlier on in says it took her awhile to admitted to herself but she does not want to be in this world anymore... And has a plan to jump in front of a train on discharge. Patient also reports that overdose on trazodone/gabapentin was actually an intentional suicide attempt. She reports a constant deluge of self-deprecating thoughts which include that she is worthless, discussed in, and fat. Activities Concierge reviewed patient's history of anorexia and patient reports she sees herself as fat every day and eats very little (history of anorexia since 14 years old; was at brought up oral for a month with a feeding tube; she understands that this is a significant cause of her chronic constipation). Despite her SI, patient does want help getting better agrees to try antidepressant medication; automatic typewriter inspector reviewed options and risks/side effects and patient with [facility]. Also discussed pain medication management and patient agrees with Belbuca which she has heard of; she also agrees to non opioid pain management and will follow-up with pain management Clinic here at [place]. Discussed relationship with her mother and she does not SA think her mother struggles with drug addiction but has caught her trying to get into her room, which patient keeps locked, looking for her medications which she has taken in the past. Patient said she reported this to her PCP. Patient does have history of being prescribed fentanyl patch however she did not like them and weaned herself off of them; set had some left over 06/08 Patient remains depressed with suicidal thinking however is trying to be hopeful and has tolerated Vraylar and says will continue, with increased dose; grateful for help getting Belbuca through prior authorization. -Discussed case with urology who recommends remaining with indwelling Van since failed voiding attempt on 06/03; will continue to follow -pt reported and nurse corroborated that Van bag containing urine was blood- tinged; discussed with Urologist, deemed likely micro trauma, and to keep van in place; recently failed voiding trial on 06/03 06/09 Patient reports she remains depressed, with SI. Patient also reports she had a very difficult time sleeping last night feeling very upset following a conversation she had on the phone with her mother. Patient expressed to her mother she is feeling hurt that her mom has not visited or called throughout her admission, even on patient's birthday; she says her mom was on apologetic. Patient also challenged her mom regarding her mom's past comment that patient could burn in hell with her father (who 2 years ago); mom remained unapologetic. Patient tells automatic typewriter inspector she has no idea why her mom said this other than that her mom is crazy... Subsequently patient reports that throughout the night, she had racing thoughts and no sleep. Discussed medications and patient and pt is eager to try Belbuca Films for pain management, available today dc'd gabapentin; pt said has never helped for pain or anxiety Adding clonidine at bedtime to help w/ sleep, anxiety 06/10 patient reports that Belbuca is helping with pain Patient remains very depressed and continues to have suicidal thoughts, saying she wants to end her life when she leaves the hospital. Patient Says I do not understand myself.. And laments she is gone most of her life without any suicidal ideation and only started this past September. Patient shared about some other reasons that it might be occurring and agrees that she still mourning the loss of her father who was her confidante; dealing with chronic pain having been off pain medications for several months and the ongoing struggles in her relationship with her mother and brother whom she feels are bullying; trying to come to terms with the fact that her mother simply isn't going to be the kind of mother she wishes she had. Patient agrees to medication management. 06/13 still very depressed with SI. Sleeping better however which is helpful and pain medications are also helpful. Patient agrees to increasing Vraylar; agrees to behavioral activation and attending groups. Despite ongoing thoughts about self-harm and ending her life when she is discharge, patient is also future oriented and says she would like to find a new place to live separate from her mother and brother. Asks for help going about that. 06/14 pt remains depressed, positive for SI with a plan but also future oriented talking about changing her living situation. Pt is engaged in treatment, trying to process her suicidal feelings and trying to be hopeful it will resolve. Agrees to adding Wellbutrin. -will likely add Wellbutrin; however, will probably keep Vraylar (maybe at lower dose) since pt has hx of manic-esque episodes (thought not formally diagnosed with bipolar as episode had several contributory factors) 06/15 remains depressed but processing feelings, doing worksheets, talking about her mother. Pt very anxious. -may increase wellbutrin for depression -considered starting Clonazepam 0.5mg BID; pt used to be on as much as 5mg of ativan daily; was weened off so hesitant to restart benzo's; 06/17 increase Wellbutrin 06/20 Over the weekend, patient assessed for infection, starting antibiotic; concerned that indwelling Van catheter is not sustainable; urology consulted and plan was for suprapubic catheter insertion for today. Patient however did not get fully informed of this and was upset to learn that a procedure was planned. She was however able to discuss this at length with automatic typewriter inspector and urology team and agreed to proceed. 06/21 Dr. Niño decided better to do a cystoscopy 1st and then decide whether not suprapubic catheter verse bladder stimulator; patient consents Seen by infectious disease: She has no urinary concerns at this time..No further antibiotics for now 06/22 Patient discussed conversation she had with her brother that was reassuring. Patient felt understood by him and supported which has lifted her mood. She feels that although she still depressed perhaps some of the depression is lifting and she starting to feel that there is hope of change in her situation. Patient remains very anxious. Earlier she had said she did not want to get back on benzodiazepines, having been on Ativan 5 mg for decades, weaned off only about a year ago. However given patient's struggles with anxiety and the fact that benzos have helped her in the past, discussed restarting a benzodiazepine, this time clonazepam 0.5 mg b.i.d.; automatic typewriter inspector discussed at length risks for addiction and the constant desire to have more. Patient said she very much does not want that to happen and feels that she will be able to minimize her use 06/23 Depressed, with intermittent SI. very anxious and with despairing thoughts has upcoming anniversary of her father's which is this July 03; will try to make it remembrance day and change the perspective. -Feeling better about catheter and plan; automatic typewriter inspector discussed with urology who met with patient and plan is for July 05 to move forward with stimulator -patient attending groups and engaged in treatment 06/24 a little better; mood up and down and still intermittent SI but patient is working on being hopeful employee numerous coping skills. Agrees to increase Wellbutrin 06/25 Patient continues to report depressed mood; told nurse that she remains purging daily and still plans to attempt suicide when she leaves. However on the unit, she seems more relaxed. Patient shared with automatic typewriter inspector her plan to remember her father on the anniversary of his . 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 Currently she is eating enough. As this is a chronic problem that that has gone on for over 20 years, and with which patient has been able to cope with on her own, without needing hospitalizations or [place] admissions since teenage years, automatic typewriter inspector does not expect that it will resolve during this inpatient stay and does not believe that it needs to. PLAN: CV? Q 5s due to?indwelling?Vna Continue clonazepam 0.5 mg b.i.d. Increase to WEllbutrin XL 450 mg for continued depression (pt adamant about not starting anti-depressant with risk of wt gain) Continue Vraylar 4.5 mg daily (Vraylar chosen since patient has depression but also history of manic type behaviors, possibly manic episode with some delusions and AH) Continue Belbuca 75mcg films BID for pain management (history of fentanyl patch, morphine, oxycodone, OxyContin) clonidine prn Continue Flagyl 500 q.12 hours x7 days placed for bacterial vaginosis; id examined patient and reports no need for any additional antibiotic regimen Urology appointment: July 05 for placement of bladder stimulator (With Dr. Leiva) Cystoscopy Findings: Bladder wall thickening, no vaginal or bladder mesh, no evidence outlet obstruction Hospitalist note 06/18 Receiving Pyridium UA 06/18 positive for 4+ bacteria, greater than 50 WBC, large leukocyte esterase positive nitrates Urine culture pending Urine culture 05/25 and 06/01 grew Raissa glabrata patient received Diflucan 200 mg daily from 06/01 through 06/15 Bacterial vaginosis PCR positive Raissa grew size/glabrata detected Due to persistent symptoms of vaginal pain/discharge recommend Infectious Disease consultation Follow urine culture. Patient educated on: diagnosis, medication risk/benefits and medical condition Patient educated on: diagnosis, medication risk/benefits and therapeutic strategies Informed Consent: understands Reason for continued inpatient stay Substantial Risk for: harm to self and rapid decompensation Time Spent With Patient Time: Total time managing care of this patient today ____ minutes.
[2024-06-26] MEDS: QUEtiapine Fumarate 50 MG TABLET PO (23:07)
[2024-06-26] MEDS: Tamsulosin HCL 0.4 MG CAPSULE PO (23:07)
[2024-06-26] MEDS: hydrOXYzine HCL 25 MG TABLET PO (23:49)
[2024-06-27] MEDS: Ibuprofen 600 MG TABLET PO (05:37)
[2024-06-27 05:38] VITALS: BP 104/72
[2024-06-27] MEDS: cloNIDine HCL 0.1 MG TABLET PO ×3 (05:38→21:57)
[2024-06-27 08:00] VITALS: BP 91/61; PULSE 71; RESP 16; TEMP 36.9; O2SAT 99
[2024-06-27] MEDS: buPROPion HCl XL 150 MG TAB.ER.24H 450 MG PO (08:39)
[2024-06-27] MEDS: Ascorbic Acid 500 MG TABLET 1000 MG PO (08:39)
[2024-06-27] MEDS: clonazePAM 0.5 MG TABLET PO ×2 (08:39→21:59)
[2024-06-27] MEDS: Sennosides/Docusate Sodium TABLET 2 TAB PO ×2 (08:41→22:00)
[2024-06-27] MEDS: Cariprazine HCl 1.5 MG CAPSULE 4.5 MG PO (08:43)
[2024-06-27] MEDS: BUPRENORPHINE 75 MCG 1 EACH PO ×2 (08:44→22:00)
[2024-06-27] MEDS: Lidocaine 4 % Patch ADH..PATCH 1 PATCH TRANSDERMA (08:45)
[2024-06-27 15:06] VITALS: BP 133/99
[2024-06-27 20:00] VITALS: BP 138/87; PULSE 87; RESP 16; TEMP 36.4; O2SAT 100
[2024-06-27] MEDS: Tamsulosin HCL 0.4 MG CAPSULE PO (21:58)
[2024-06-27] MEDS: bisacodyL 5 MG TABLET.DR 10 MG PO (21:58)
[2024-06-27] MEDS: QUEtiapine Fumarate 50 MG TABLET PO (21:59)
--- NOTE | 2024-06-27 22:13 | P.PNPSI_ITS ---
Subjective Subjective Date of Service: 06/27/24 Reason For Visit: Sa Interim History: met with patient; discussed with team very sad, tearful, pushing herself to be with people attend groups but trouble controlling tears. Says can't stop thinking about killing herself. Discussed trauma; discussed how SI is a way to avoid thinking about unwanted feelings or upsetting events, but that talking about them might prove helpful. Mental Status Exam Mental Status Exam Narrative: Pt is alert and oriented; behavior is cooperative, tearful; patient in physical pain; cachectic; dressed in hospital attire with hair braided; adequate hygiene; mood is described as depressed and affect congruent, downcast, tearful; eye contact appropriate; Speech is a normal rate, volume and prosody; psychomotor retardation present; thought process is organized and goal directed; Thought content is on guilty feelings, missing father, hopeless; medical comorbidities; otherwise pertinent to relevant topics and without any delusional content, paranoid ideations or grandiosity; increased SI thoughts; no HI. There is no evidence of perceptual disturbance. Patients insight and judgment impaired Diagnostics Vital Signs (24Hr): Vital Signs - 24 hr 06/26/24 23:00 06/27/24 05:38 06/27/24 08:00 Temperature 97.4 F 98.4 F Pulse Rate 74 71 Respiratory Rate 15 16 Blood Pressure 140/92 H 104/72 91/61 Pulse Oximetry 100 99 Oxygen Delivery Method Room Air 06/27/24 15:06 06/27/24 20:00 Temperature 97.5 F Pulse Rate 87 Respiratory Rate 16 Blood Pressure 133/99 H 138/87 Pulse Oximetry 100 Oxygen Delivery Method Room Air BMI result Body Mass Index 17.2 Labs 06/06/24 08:20 06/06/24 08:20 Imaging Radiology Impressions: ITS Impressions KUB X-Ray 06/03/24 19:55 IMPRESSION: Increased amount of stool in the colon suggesting constipation. Please correlate with clinical presentation. Electronically signed by: Oneida Pham MD 06/04/2024 07:31 AM EDT Renal Ultrasound 06/04/24 14:49 IMPRESSION: No ultrasound evidence of renal obstruction or hydronephrosis. Limited visualization of the left kidney obscured by bowel gas, exam otherwise unremarkable. Electronically signed by: Oneida Pham MD 06/05/2024 12:56 PM EDT RP Abdomen/Pelvis CT 06/04/24 18:33 IMPRESSION: Severe constipation. Otherwise unremarkable CT abdomen and pelvis. Fleischner guidelines were followed. Electronically signed by: Deyvi Collins MD 06/04/2024 07:05 PM EDT RP Ribs X-Ray 06/19/24 10:15 IMPRESSION: 1. Mild degenerative changes of the left shoulder. 2. No left-sided rib fracture. Electronically signed by: Orlando Lindsey MD 06/19/2024 10:50 AM EDT RP Shoulder X-Ray 06/19/24 10:15 IMPRESSION: 1. Mild degenerative changes of the left shoulder. 2. No left-sided rib fracture. Electronically signed by: Orlando Lindsey MD 06/19/2024 10:50 AM EDT RP Medications Medications Current Medications Acetaminophen (Acetaminophen 325 Mg Tablet) 650 mg PO Q6H PRN PRN Reason: Headache/Pain Mild Scale (1-3) Last Admin: 06/22/24 03:24 Dose: 650 mg Al Hydroxide/Mg Hydroxide (Magnesium Hydrox/Alum Hydrox 30 Ml Oral.Susp) 30 ml PO Q6H PRN PRN Reason: Heartburn/Nausea Albuterol Sulfate (Albuterol Sulfate 90 Mcg 8 Gm Inhaler) 2 puff INHALE QID PRN PRN Reason: Shortness Of Breath Ascorbic Acid (Ascorbic Acid 500 Mg Tablet) 1,000 mg PO DAILY [facility] Last Admin: 06/27/24 08:39 Dose: 1,000 mg Bisacodyl (Bisacodyl 5 Mg Tablet.Dr) 10 mg PO BEDTIME [facility] Last Admin: 06/27/24 21:58 Dose: 10 mg Bupropion HCl (Bupropion Hcl Xl 150 Mg Tab.Er.24h) 450 mg PO DAILY [facility] Last Admin: 06/27/24 08:39 Dose: 450 mg Cariprazine (Cariprazine Hcl 1.5 Mg Capsule) 4.5 mg PO DAILY [facility] Last Admin: 06/27/24 08:43 Dose: 4.5 mg Clonazepam (Clonazepam 0.5 Mg Tablet) 0.5 mg PO BID [facility] Last Admin: 06/27/24 21:59 Dose: 0.5 mg Clonidine HCl (Clonidine Hcl 0.1 Mg Tablet) 0.1 mg PO BEDTIME [facility]; Protocol Last Admin: 06/27/24 21:57 Dose: 0.1 mg Clonidine HCl (Clonidine Hcl 0.1 Mg Tablet) 0.1 mg PO Q4H PRN; Protocol PRN Reason: anxiety Last Admin: 06/27/24 15:06 Dose: 0.1 mg Hydroxyzine HCl (Hydroxyzine Hcl 25 Mg Tablet) 25 mg PO Q6H PRN PRN Reason: Anxiety Last Admin: 06/26/24 23:49 Dose: 25 mg Ibuprofen (Ibuprofen 600 Mg Tablet) 600 mg PO Q6H PRN PRN Reason: Pain, Severe (Pain Scale 7-10) Last Admin: 06/27/24 05:37 Dose: 600 mg Lactulose (Lactulose 20 Gm/30 Ml Solution) 40 gm PO DAILY [facility] Last Admin: 06/27/24 08:43 Dose: Not Given Lidocaine (Lidocaine 4 % Patch Adh..Patch) 1 patch TRANSDERMA DAILY [facility]; Protocol Last Admin: 06/27/24 08:45 Dose: 1 patch Lidocaine HCl (Lidocaine Hcl 2 % Urojet 10 Ml Jel.Pf.Luis) 10 ml TOPICAL BID PRN PRN Reason: Pain, Severe (Pain Scale 7-10) Last Admin: 06/19/24 22:05 Dose: 10 ml Loperamide HCl (Loperamide Hcl 2 Mg Capsule) 2 mg PO Q4H PRN PRN Reason: Diarrhea Magnesium Hydroxide (Milk Of Magnesia 30 Ml Oral.Susp) 30 ml PO DAILY PRN PRN Reason: Constipation Last Admin: 06/04/24 05:22 Dose: 30 ml Multi-Ingred Cream/Lotion/Oil/Oint (Mineral Oil/Petrolatum,White 106 Gm Tube) 1 appl TOPICAL BID PRN; Protocol PRN Reason: Dry Skin Last Admin: 06/13/24 21:44 Dose: 1 appl Patient Own (Belbuca (75mcg Buccal Films)) 1 each PO BID [facility] Last Admin: 06/27/24 22:00 Dose: 1 each Ondansetron HCl (Ondansetron Odt 4 Mg Tab.Rapdis) 4 mg TRANSLINGU Q6H PRN PRN Reason: Nausea and Vomiting Last Admin: 10/26/24 16:17 Dose: 4 mg Polyethylene Glycol (Polyethylene Glycol 3350 17 Gm Powd.Pack) 17 gm PO BID [facility] Last Admin: 06/27/24 22:01 Dose: Not Given Quetiapine Fumarate (Quetiapine Fumarate 50 Mg Tablet) 50 mg PO BEDTIME [facility] Last Admin: 06/27/24 21:59 Dose: 50 mg Senna/Docusate Sodium (Sennosides/Docusate Sodium Tablet) 2 tab PO BID [facility] Last Admin: 06/27/24 22:00 Dose: 2 tab Simethicone (Simethicone 80 Mg Tab.Chew) 160 mg PO BID PRN PRN Reason: bloating/gas Last Admin: 06/07/24 11:06 Dose: 160 mg Tamsulosin HCl (Tamsulosin Hcl 0.4 Mg Capsule) 0.4 mg PO BEDTIME [facility] Last Admin: 06/27/24 21:58 Dose: 0.4 mg Allergies Allergies Allergy/AdvReac Type Severity Reaction Status Date / Time azithromycin Allergy Itching Verified 06/21/24 12:35 levofloxacin [From Levaquin] Allergy Nightmare Verified 06/21/24 12:35 nitrofurantoin Allergy Itching Verified 06/21/24 12:35 [From Macrodantin] Assessment & Plan Assessment & Plan (1) MDD (major depressive disorder), recurrent episode, moderate: Status: Acute Code(s): F33.1 - Major depressive disorder, recurrent, moderate (2) PTSD (post-traumatic stress disorder): Status: Acute Code(s): F43.10 - Post-traumatic stress disorder, unspecified (3) Voiding dysfunction: Status: Acute Code(s): N39.8 - Other specified disorders of urinary system Assessment and Plan: She has no urinary concerns at this time No further antibiotics for now (4) Urinary retention: Status: Acute Code(s): R33.9 - Retention of urine, unspecified (5) Jennifer-Danlos disease: Status: Acute Code(s): Q79.60 - Jennifer-Danlos syndrome, unspecified (6) Osteogenesis imperfecta: Status: Acute Code(s): Q78.0 - Osteogenesis imperfecta (7) Myofascial pain syndrome: Status: Acute Code(s): M79.18 - Myalgia, other site Plan HPI: Patient is a 39-year-old female with history of Jennifer Danlos syndrome, osteogenesis imperfecta, myofascial pain syndrome, migraines, juvenile osteoporosis, asthma, and mood disorder with history of rectocele, vaginal mesh surgery, urinary retention requiring Avn catheterization, which was recently restarted. P atient?presented?to?[facility]?on?924?following?intentional?overdose?on?muscle?rel axers.??Patient?lujan mary?was?immediately?transferred?to?medical?floor?for?urinary?retention;?she?stab ilized?there?and?was?discharged.?? She?presents?again?for?overdose On?gabapentin?and?trazodone,?Which?she?asserts?was?not?intentional (though later admits it was),?saying?she?just?wanted?to?sleep?and?get?relief?from?chronic?pain H owever?she?agrees?it?was?impulsive?and?unsafe.??Patient?currently?denies?any?SI. ??She?reports?howeve r?that?life?has?been?very?difficultff?pain?medications,?having?been?prescribed?o pioids?consistently?for?the?past?24?years,? as?well?as?Ativan.??Patient?agrees?she?needs Help?stabilizing?and?coping. Relevant Medical/psych History: Patient was on opiates scheduled for 24 years to manage chronic medical comorbidities, resulting in hx of multiple fractures/falls and subsequent chronic pain. Pt denies any hx of substance abuse, including cannabis. She did screen positive for Fentanyl at first admission in October 2024 but is adamant she's never used it in her life and no quantitative labs done (leaving Fentanyl use inconclusive). Patients long-time physician of [address] Brigido Dietrich retired and new PCP tapered her off and discontinued all opioid pain management (also tapered and dc'd ativan). Patient reports she has been in constant pain and discomfort since then and has felt very frustrated and challenged to enjoy life, sometimes challenging her desire to live. Discussed?case?with?MAGDA Dunaway from pain management clinic: pt seen on 05/24. MAGDA Dunaway agrees that patients medical comorbidities and subsequent chronic pain syndrome are commonly treated with opioid pain management. She recommends either Butrans patch or preferably Belbucha films (a form of Buprenorphin and titrating it to 150mg BID). Pt is also appropriate to get other nerve blocking treatments at pain clinic who will f/u with pt. Seaming Machine Operator spoke with patient's PCP Dr. Rubio at [facility] Dr. Rubio reports concurs that patient has Osteogenesis imprefecta, Ehlos Danlos Pt was on opioids for 24 years with prior PCP. With [facility] she was on Oxycodine 30mg QID and Oxycontin 30mg daily. In Sep 2023 pt was admitted to [facility] for concern for overdose. Additionally, there were other concerns including that [facility] notes referenced that patient reported being on a Fentanyl patch, which this provider had never prescribed. Additionally, there was hx of patient needing refills early and a report that her mother had used some of her medications. Also patient had significant weight loss which provider was concerned might have contributed to possible accidental overdose. Because of these concerns provider, clinic repeatedly called patient to come in and discuss pain management and reportedly reached out to her from October until January however patient did not respond or come in for appointments, having missed several. Provider reports that because of lack of communication and ongoing concern that was never addressed, Provider felt it was necessary to taper patient off pain medication which was started in January; patient was also tapered off Ativan. Provider agrees that patient does have significant medical history that is commonly treated with chronic pain medication. Seaming Machine Operator discussed options with them and Dr. Rubio agrees that starting patient on a buprenorphine product is an acceptable alternative to oxycodone. Vraylar since depressed and hx of manic-esque IMPRESSION: Patient's?depression?and?SI?seem?to?have significant?situational component?as?she?is?No?longer?receiving?pain?management?for?severe,?chronic?pain . P atient?has?no?known?history?of?substance?abuse.??Although?she?did?screen?positiv e?for?fentanyl (on?10/27/2023 and?05/18/2024), No?quantitative?analysis?was?done. ?This?mean that?fentanyl?screen?could?very?well?be?a?false-positive?result (which is not uncommon). Medical?decision?should?not?be?based?on?only?a?positive?screen?for?fentanyl. Patient does struggle with SI and with her chronic?pain?And?poor?support?will?likely?continue?to?produce?mood?instability.? ?Treatment?plan?will?include?narrative writer/team?discussion?with Outpatient?PCP?regarding?plan?for?treatment. Hospital course: 06/05: Continue current regimen and plans 06/06. Continue current plans and regimen. Loperamide was put on hold. Started on simethicone by hospitalist. No indications of GI bleeding currently. -seen by GI: C/o constipation and worsening abdominal distension. Will order CT A/P with IV/PO contrast to assess for SBO/ileus though passage of gas and small amount of stool argues against complete obstruction; however she is at risk given multiple surgeries. If no obstruction will order bowel regimen to address constipation. Continue Van, Urology following. 06/07 Patient reports that she is depressed. She apologized for not being more forthcoming earlier on in says it took her awhile to admitted to herself but she does not want to be in this world anymore... And has a plan to jump in front of a train on discharge. Patient also reports that overdose on trazodone/gabapentin was actually an intentional suicide attempt. She reports a constant deluge of self-deprecating thoughts which include that she is worthless, discussed in, and fat. 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 Despite her SI, patient does want help getting better agrees to try antidepressant medication; narrative writer reviewed options and risks/side effects and patient with [facility]. Also discussed pain medication management and patient agrees with Belrodca which she has heard of; she also agrees to non opioid pain management and will follow-up with pain management Clinic here at [facility]. Discussed relationship with her mother and she does not SA think her mother struggles with drug addiction but has caught her trying to get into her room, which patient keeps locked, looking for her medications which she has taken in the past. Patient said she reported this to her PCP. Patient does have history of being prescribed fentanyl patch however she did not like them and weaned herself off of them; set had some left over 06/08 Patient remains depressed with suicidal thinking however is trying to be hopeful and has tolerated Vraylar and says will continue, with increased dose; grateful for help getting Belbuca through prior authorization. -Discussed case with urology who recommends remaining with indwelling Van since failed voiding attempt on 06/03; will continue to follow -pt reported and nurse corroborated that Van bag containing urine was blood- tinged; discussed with Urologist, deemed likely micro trauma, and to keep van in place; recently failed voiding trial on 06/03 06/09 Patient reports she remains depressed, with SI. Patient also reports she had a very difficult time sleeping last night feeling very upset following a conversation she had on the phone with her mother. Patient expressed to her mother she is feeling hurt that her mom has not visited or called throughout her admission, even on patient's birthday; she says her mom was on apologetic. Patient also challenged her mom regarding her mom's past comment that patient could burn in hell with her father (who 2 years ago); mom remained unapologetic. Patient tells narrative writer she has no idea why her mom said this other than that her mom is crazy... Subsequently patient reports that throughout the night, she had racing thoughts and no sleep. Discussed medications and patient and pt is eager to try Belbuca Films for pain management, available today dc'd gabapentin; pt said has never helped for pain or anxiety Adding clonidine at bedtime to help w/ sleep, anxiety 06/10 patient reports that Belbuca is helping with pain Patient remains very depressed and continues to have suicidal thoughts, saying she wants to end her life when she leaves the hospital. Patient Says I do not understand myself.. And laments she is gone most of her life without any suicidal ideation and only started this past September. Patient shared about some other reasons that it might be occurring and agrees that she still mourning the loss of her father who was her confidante; dealing with chronic pain having been off pain medications for several months and the ongoing struggles in her relationship with her mother and brother whom she feels are bullying; trying to come to terms with the fact that her mother simply isn't going to be the kind of mother she wishes she had. Patient agrees to medication management. 06/13 still very depressed with SI. Sleeping better however which is helpful and pain medications are also helpful. Patient agrees to increasing Vraylar; agrees to behavioral activation and attending groups. Despite ongoing thoughts about self-harm and ending her life when she is discharge, patient is also future oriented and says she would like to find a new place to live separate from her mother and brother. Asks for help going about that. 06/14 pt remains depressed, positive for SI with a plan but also future oriented talking about changing her living situation. Pt is engaged in treatment, trying to process her suicidal feelings and trying to be hopeful it will resolve. Agrees to adding Wellbutrin. -will likely add Wellbutrin; however, will probably keep Vraylar (maybe at lower dose) since pt has hx of manic-esque episodes (thought not formally diagnosed with bipolar as episode had several contributory factors) 06/15 remains depressed but processing feelings, doing worksheets, talking about her mother. Pt very anxious. -may increase wellbutrin for depression -considered starting Clonazepam 0.5mg BID; pt used to be on as much as 5mg of ativan daily; was weened off so hesitant to restart benzo's; 06/17 increase Wellbutrin 06/20 Over the weekend, patient assessed for infection, starting antibiotic; concerned that indwelling Van catheter is not sustainable; urology consulted and plan was for suprapubic catheter insertion for today. Patient however did not get fully informed of this and was upset to learn that a procedure was planned. She was however able to discuss this at length with narrative writer and urology team and agreed to proceed. 06/21 Dr. Niño decided better to do a cystoscopy 1st and then decide whether not suprapubic catheter verse bladder stimulator; patient consents Seen by infectious disease: She has no urinary concerns at this time..No further antibiotics for now 06/22 Patient discussed conversation she had with her brother that was reassuring. Patient felt understood by him and supported which has lifted her mood. She feels that although she still depressed perhaps some of the depression is lifting and she starting to feel that there is hope of change in her situation. Patient remains very anxious. Earlier she had said she did not want to get back on benzodiazepines, having been on Ativan 5 mg for decades, weaned off only about a year ago. However given patient's struggles with anxiety and the fact that benzos have helped her in the past, discussed restarting a benzodiazepine, this time clonazepam 0.5 mg b.i.d.; narrative writer discussed at length risks for addiction and the constant desire to have more. Patient said she very much does not want that to happen and feels that she will be able to minimize her use 06/23 Depressed, with intermittent SI. very anxious and with despairing thoughts has upcoming anniversary of her father's which is this July 03; will try to make it remembrance day and change the perspective. -Feeling better about catheter and plan; narrative writer discussed with urology who met with patient and plan is for July 05 to move forward with stimulator -patient attending groups and engaged in treatment 06/24 a little better; mood up and down and still intermittent SI but patient is working on being hopeful employee numerous coping skills. Agrees to increase Wellbutrin 06/25 Patient continues to report depressed mood; told nurse that she remains purging daily and still plans to attempt suicide when she leaves. However on the unit, she seems more relaxed. Patient shared with narrative writer her plan to remember her father on the anniversary of his . 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 Currently she is eating enough. As this is a chronic problem that that has gone on for over 20 years, and with which patient has been able to cope with on her own, without needing hospitalizations or [facility] admissions since teenage years, narrative writer does not expect that it will resolve during this inpatient stay and does not believe that it needs to. 06/27 very tearful sad; suicidal; pushing self to be around others, groups -talked about eating struggles, purging; trying not to PLAN: CV? Q 5s due to?indwelling?Van Continue clonazepam 0.5 mg b.i.d. Increase to WEllbutrin XL 450 mg for continued depression (pt adamant about not starting anti-depressant with risk of wt gain) Continue Vraylar 4.5 mg daily (Vraylar chosen since patient has depression but also history of manic type behaviors, possibly manic episode with some delusions and AH) Continue Belbuca 75mcg films BID for pain management (history of fentanyl patch, morphine, oxycodone, OxyContin) clonidine prn Continue Flagyl 500 q.12 hours x7 days placed for bacterial vaginosis; id examined patient and reports no need for any additional antibiotic regimen Urology appointment: July 05 for placement of bladder stimulator (With Dr. Leiva) Cystoscopy Findings: Bladder wall thickening, no vaginal or bladder mesh, no evidence outlet obstruction Hospitalist note 06/18 Receiving Pyridium UA 06/18 positive for 4+ bacteria, greater than 50 WBC, large leukocyte esterase positive nitrates Urine culture pending Urine culture 05/25 and 06/01 grew Raissa glabrata patient received Diflucan 200 mg daily from 06/01 through 06/15 Bacterial vaginosis PCR positive Raissa grew size/glabrata detected Due to persistent symptoms of vaginal pain/discharge recommend Infectious Disease consultation Follow urine culture. Patient educated on: diagnosis, medication risk/benefits and medical condition Patient educated on: diagnosis, medication risk/benefits and therapeutic strategies Informed Consent: understands Reason for continued inpatient stay Substantial Risk for: harm to self and rapid decompensation Time Spent With Patient Time: Total time managing care of this patient today ____ minutes.
[2024-06-28 01:54] VITALS: BP 118/73
[2024-06-28] MEDS: cloNIDine HCL 0.1 MG TABLET PO ×3 (01:54→20:18)
[2024-06-28] MEDS: hydrOXYzine HCL 25 MG TABLET PO (01:54)
[2024-06-28 08:00] VITALS: BP 114/72; PULSE 84; RESP 16; TEMP 36.2; O2SAT 98
[2024-06-28] MEDS: Lidocaine 4 % Patch ADH..PATCH 1 PATCH TRANSDERMA (08:12)
[2024-06-28] MEDS: Ascorbic Acid 500 MG TABLET 1000 MG PO (08:14)
[2024-06-28] MEDS: Sennosides/Docusate Sodium TABLET 2 TAB PO (08:14)
[2024-06-28] MEDS: clonazePAM 0.5 MG TABLET PO ×2 (08:14→20:18)
[2024-06-28] MEDS: buPROPion HCl XL 150 MG TAB.ER.24H 450 MG PO (08:14)
[2024-06-28] MEDS: Cariprazine HCl 1.5 MG CAPSULE 4.5 MG PO (08:14)
[2024-06-28] MEDS: BUPRENORPHINE 75 MCG 1 EACH PO ×2 (08:15→20:19)
--- NOTE | 2024-06-28 09:26 | P.PNPSI_ITS ---
Subjective Subjective Date of Service: 06/28/24 Reason For Visit: Sa Interim History: met with patient; discussed with team credit underwriter engaged in psychodynamic psychotherapy very sad; wants to and feeling suicidal, imagining what she'll do on discharge. talking about missing her father, lamenting poor life decisions and feeling very guilty Reading psychology book and discussing it w/ credit underwriter. Pushing self to be engaged. Mental Status Exam Mental Status Exam Narrative: Pt is alert and oriented; behavior is cooperative, but tearful; cachectic; dressed in hospital attire with hair braided; adequate hygiene; mood is described as depressed and affect congruent, downcast, tearful; eye contact appropriate; Speech is a normal rate, volume and prosody; psychomotor retardation present; thought process is organized and goal directed; Thought content is on guilty feelings, missing father, hopeless; medical comorbidities; otherwise pertinent to relevant topics and without any delusional content, paranoid ideations or grandiosity; increased SI thoughts; no HI. There is no evidence of perceptual disturbance. Patients insight and judgment impaired Diagnostics Vital Signs (24Hr): Vital Signs - 24 hr 06/27/24 15:06 06/27/24 20:00 06/28/24 01:54 Temperature 97.5 F Pulse Rate 87 Respiratory Rate 16 Blood Pressure 133/99 H 138/87 118/73 Pulse Oximetry 100 Oxygen Delivery Method Room Air 06/28/24 08:00 Temperature 97.2 F Pulse Rate 84 Respiratory Rate 16 Blood Pressure 114/72 Pulse Oximetry 98 Oxygen Delivery Method Room Air BMI result Body Mass Index 17.2 Labs 06/06/24 08:20 06/06/24 08:20 Imaging Radiology Impressions: ITS Impressions KUB X-Ray 06/03/24 19:55 IMPRESSION: Increased amount of stool in the colon suggesting constipation. Please correlate with clinical presentation. Electronically signed by: Oneida Pham MD 06/04/2024 07:31 AM EDT Renal Ultrasound 06/04/24 14:49 IMPRESSION: No ultrasound evidence of renal obstruction or hydronephrosis. Limited visualization of the left kidney obscured by bowel gas, exam otherwise unremarkable. Electronically signed by: Oneida Pham MD 06/05/2024 12:56 PM EDT RP Abdomen/Pelvis CT 06/04/24 18:33 IMPRESSION: Severe constipation. Otherwise unremarkable CT abdomen and pelvis. Fleischner guidelines were followed. Electronically signed by: Deyvi Collins MD 06/04/2024 07:05 PM EDT RP Ribs X-Ray 06/19/24 10:15 IMPRESSION: 1. Mild degenerative changes of the left shoulder. 2. No left-sided rib fracture. Electronically signed by: Orlando Lindsey MD 06/19/2024 10:50 AM EDT RP Shoulder X-Ray 06/19/24 10:15 IMPRESSION: 1. Mild degenerative changes of the left shoulder. 2. No left-sided rib fracture. Electronically signed by: Orlando Lindsey MD 06/19/2024 10:50 AM EDT RP Medications Medications Current Medications Acetaminophen (Acetaminophen 325 Mg Tablet) 650 mg PO Q6H PRN PRN Reason: Headache/Pain Mild Scale (1-3) Last Admin: 06/22/24 03:24 Dose: 650 mg Al Hydroxide/Mg Hydroxide (Magnesium Hydrox/Alum Hydrox 30 Ml Oral.Susp) 30 ml PO Q6H PRN PRN Reason: Heartburn/Nausea Albuterol Sulfate (Albuterol Sulfate 90 Mcg 8 Gm Inhaler) 2 puff INHALE QID PRN PRN Reason: Shortness Of Breath Ascorbic Acid (Ascorbic Acid 500 Mg Tablet) 1,000 mg PO DAILY [facility] Last Admin: 06/28/24 08:14 Dose: 1,000 mg Bisacodyl (Bisacodyl 5 Mg Tablet.Dr) 10 mg PO BEDTIME [facility] Last Admin: 06/27/24 21:58 Dose: 10 mg Bupropion HCl (Bupropion Hcl Xl 150 Mg Tab.Er.24h) 450 mg PO DAILY [facility] Last Admin: 06/28/24 08:14 Dose: 450 mg Cariprazine (Cariprazine Hcl 1.5 Mg Capsule) 4.5 mg PO DAILY [facility] Last Admin: 06/28/24 08:14 Dose: 4.5 mg Clonazepam (Clonazepam 0.5 Mg Tablet) 0.5 mg PO BID [facility] Last Admin: 06/28/24 08:14 Dose: 0.5 mg Clonidine HCl (Clonidine Hcl 0.1 Mg Tablet) 0.1 mg PO BEDTIME [facility]; Protocol Last Admin: 06/27/24 21:57 Dose: 0.1 mg Clonidine HCl (Clonidine Hcl 0.1 Mg Tablet) 0.1 mg PO Q4H PRN; Protocol PRN Reason: anxiety Last Admin: 06/28/24 01:54 Dose: 0.1 mg Hydroxyzine HCl (Hydroxyzine Hcl 25 Mg Tablet) 25 mg PO Q6H PRN PRN Reason: Anxiety Last Admin: 06/28/24 01:54 Dose: 25 mg Ibuprofen (Ibuprofen 600 Mg Tablet) 600 mg PO Q6H PRN PRN Reason: Pain, Severe (Pain Scale 7-10) Last Admin: 06/27/24 05:37 Dose: 600 mg Lactulose (Lactulose 20 Gm/30 Ml Solution) 40 gm PO DAILY [facility] Last Admin: 06/28/24 08:18 Dose: Not Given Lidocaine (Lidocaine 4 % Patch Adh..Patch) 1 patch TRANSDERMA DAILY [facility]; Protocol Last Admin: 06/28/24 08:12 Dose: 1 patch Lidocaine HCl (Lidocaine Hcl 2 % Urojet 10 Ml Jel.Pf.Luis) 10 ml TOPICAL BID PRN PRN Reason: Pain, Severe (Pain Scale 7-10) Last Admin: 06/19/24 22:05 Dose: 10 ml Loperamide HCl (Loperamide Hcl 2 Mg Capsule) 2 mg PO Q4H PRN PRN Reason: Diarrhea Magnesium Hydroxide (Milk Of Magnesia 30 Ml Oral.Susp) 30 ml PO DAILY PRN PRN Reason: Constipation Last Admin: 06/04/24 05:22 Dose: 30 ml Multi-Ingred Cream/Lotion/Oil/Oint (Mineral Oil/Petrolatum,White 106 Gm Tube) 1 appl TOPICAL BID PRN; Protocol PRN Reason: Dry Skin Last Admin: 06/13/24 21:44 Dose: 1 appl Patient Own (Belbuca (75mcg Buccal Films)) 1 each PO BID [facility] Last Admin: 06/28/24 08:15 Dose: 1 each Ondansetron HCl (Ondansetron Odt 4 Mg Tab.Rapdis) 4 mg TRANSLINGU Q6H PRN PRN Reason: Nausea and Vomiting Last Admin: 06/18/24 16:17 Dose: 4 mg Polyethylene Glycol (Polyethylene Glycol 3350 17 Gm Powd.Pack) 17 gm PO BID [facility] Last Admin: 06/28/24 08:18 Dose: Not Given Quetiapine Fumarate (Quetiapine Fumarate 50 Mg Tablet) 50 mg PO BEDTIME [facility] Last Admin: 06/27/24 21:59 Dose: 50 mg Senna/Docusate Sodium (Sennosides/Docusate Sodium Tablet) 2 tab PO BID [facility] Last Admin: 06/28/24 08:14 Dose: 2 tab Simethicone (Simethicone 80 Mg Tab.Chew) 160 mg PO BID PRN PRN Reason: bloating/gas Last Admin: 06/07/24 11:06 Dose: 160 mg Tamsulosin HCl (Tamsulosin Hcl 0.4 Mg Capsule) 0.4 mg PO BEDTIME [facility] Last Admin: 06/27/24 21:58 Dose: 0.4 mg Allergies Allergies Allergy/AdvReac Type Severity Reaction Status Date / Time azithromycin Allergy Itching Verified 06/21/24 12:35 levofloxacin [From Levaquin] Allergy Nightmare Verified 06/21/24 12:35 nitrofurantoin Allergy Itching Verified 06/21/24 12:35 [From Macrodantin] Assessment & Plan Assessment & Plan (1) MDD (major depressive disorder), recurrent episode, moderate: Status: Acute Code(s): F33.1 - Major depressive disorder, recurrent, moderate (2) PTSD (post-traumatic stress disorder): Status: Acute Code(s): F43.10 - Post-traumatic stress disorder, unspecified (3) Voiding dysfunction: Status: Acute Code(s): N39.8 - Other specified disorders of urinary system Assessment and Plan: She has no urinary concerns at this time No further antibiotics for now (4) Urinary retention: Status: Acute Code(s): R33.9 - Retention of urine, unspecified (5) Jennifer-Danlos disease: Status: Acute Code(s): Q79.60 - Jennifer-Danlos syndrome, unspecified (6) Osteogenesis imperfecta: Status: Acute Code(s): Q78.0 - Osteogenesis imperfecta (7) Myofascial pain syndrome: Status: Acute Code(s): M79.18 - Myalgia, other site Plan HPI: Patient is a 39-year-old female with history of Jennifer Danlos syndrome, osteogenesis imperfecta, myofascial pain syndrome, migraines, juvenile osteoporosis, asthma, and mood disorder with history of rectocele, vaginal mesh surgery, urinary retention requiring Van catheterization, which was recently restarted. P atient?presented?to?[place]?on?924?following?intentional?overdose?on?muscle?rel axers.??Patient?lujan mary?was?immediately?transferred?to?medical?floor?for?urinary?retention;?she?stab ilized?there?and?was?discharged.?? She?presents?again?for?overdose On?gabapentin?and?trazodone,?Which?she?asserts?was?not?intentional (though later admits it was),?saying?she?just?wanted?to?sleep?and?get?relief?from?chronic?pain H owever?she?agrees?it?was?impulsive?and?unsafe.??Patient?currently?denies?any?SI. ??She?reports?howeve r?that?life?has?been?very?difficultff?pain?medications,?having?been?prescribed?o pioids?consistently?for?the?past?24?years,? as?well?as?Ativan.??Patient?agrees?she?needs Help?stabilizing?and?coping. Relevant Medical/psych History: Patient was on opiates scheduled for 24 years to manage chronic medical comorbidities, resulting in hx of multiple fractures/falls and subsequent chronic pain. Pt denies any hx of substance abuse, including cannabis. She did screen positive for Fentanyl at first admission in October 2024 but is adamant she's never used it in her life and no quantitative labs done (leaving Fentanyl use inconclusive). Patients long-time physician of [address] Brigido Dietrich retired and new PCP tapered her off and discontinued all opioid pain management (also tapered and dc'd ativan). Patient reports she has been in constant pain and discomfort since then and has felt very frustrated and challenged to enjoy life, sometimes challenging her desire to live. Discussed?case?with?MAGDA Dunaway from pain management clinic: pt seen on 05/24. MAGDA Dunaway agrees that patients medical comorbidities and subsequent chronic pain syndrome are commonly treated with opioid pain management. She recommends either Butrans patch or preferably Belbucha films (a form of Buprenorphin and titrating it to 150mg BID). Pt is also appropriate to get other nerve blocking treatments at pain clinic who will f/u with pt. Vulnerability Researcher spoke with patient's PCP Dr. Rubio at [facility] Dr. Rubio reports concurs that patient has Osteogenesis imprefecta, Valentes Rejis Pt was on opioids for 24 years with prior PCP. With [facility] she was on Oxycodine 30mg QID and Oxycontin 30mg daily. In Sep 2023 pt was admitted to [facility] for concern for overdose. Additionally, there were other concerns including that [facility] notes referenced that patient reported being on a Fentanyl patch, which this provider had never prescribed. Additionally, there was hx of patient needing refills early and a report that her mother had used some of her medications. Also patient had significant weight loss which provider was concerned might have contributed to possible accidental overdose. Because of these concerns provider, clinic repeatedly called patient to come in and discuss pain management and reportedly reached out to her from October until January however patient did not respond or come in for appointments, having missed several. Provider reports that because of lack of communication and ongoing concern that was never addressed, Provider felt it was necessary to taper patient off pain medication which was started in January; patient was also tapered off Ativan. Provider agrees that patient does have significant medical history that is commonly treated with chronic pain medication. Vulnerability Researcher discussed options with them and Dr. Rubio agrees that starting patient on a buprenorphine product is an acceptable alternative to oxycodone. Vraylar since depressed and hx of manic-esque IMPRESSION: Patient's?depression?and?SI?seem?to?have significant?situational component?as?she?is?No?longer?receiving?pain?management?for?severe,?chronic?pain . P atient?has?no?known?history?of?substance?abuse.??Although?she?did?screen?positiv e?for?fentanyl (on?10/27/2023 and?05/18/2024), No?quantitative?analysis?was?done. ?This?mean that?fentanyl?screen?could?very?well?be?a?false-positive?result (which is not uncommon). Medical?decision?should?not?be?based?on?only?a?positive?screen?for?fentanyl. Patient does struggle with SI and with her chronic?pain?And?poor?support?will?likely?continue?to?produce?mood?instability.? ?Treatment?plan?will?include?credit underwriter/team?discussion?with Outpatient?PCP?regarding?plan?for?treatment. Hospital course: 06/05: Continue current regimen and plans 06/06. Continue current plans and regimen. Loperamide was put on hold. Started on simethicone by hospitalist. No indications of GI bleeding currently. -seen by GI: C/o constipation and worsening abdominal distension. Will order CT A/P with IV/PO contrast to assess for SBO/ileus though passage of gas and small amount of stool argues against complete obstruction; however she is at risk given multiple surgeries. If no obstruction will order bowel regimen to address constipation. Continue Opal, Urology following. 06/07 Patient reports that she is depressed. She apologized for not being more forthcoming earlier on in says it took her awhile to admitted to herself but she does not want to be in this world anymore... And has a plan to jump in front of a train on discharge. Patient also reports that overdose on trazodone/gabapentin was actually an intentional suicide attempt. She reports a constant deluge of self-deprecating thoughts which include that she is worthless, discussed in, and fat. 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 Despite her SI, patient does want help getting better agrees to try antidepressant medication; credit underwriter reviewed options and risks/side effects and patient with [facility]. Also discussed pain medication management and patient agrees with Vincentca which she has heard of; she also agrees to non opioid pain management and will follow-up with pain management Clinic here at [place]. Discussed relationship with her mother and she does not SA think her mother struggles with drug addiction but has caught her trying to get into her room, which patient keeps locked, looking for her medications which she has taken in the past. Patient said she reported this to her PCP. Patient does have history of being prescribed fentanyl patch however she did not like them and weaned herself off of them; set had some left over 06/08 Patient remains depressed with suicidal thinking however is trying to be hopeful and has tolerated Vraylar and says will continue, with increased dose; grateful for help getting Belbuca through prior authorization. -Discussed case with urology who recommends remaining with indwelling Van since failed voiding attempt on 06/03; will continue to follow -pt reported and nurse corroborated that Van bag containing urine was blood- tinged; discussed with Urologist, deemed likely micro trauma, and to keep van in place; recently failed voiding trial on 06/03 06/09 Patient reports she remains depressed, with SI. Patient also reports she had a very difficult time sleeping last night feeling very upset following a conversation she had on the phone with her mother. Patient expressed to her mother she is feeling hurt that her mom has not visited or called throughout her admission, even on patient's birthday; she says her mom was on apologetic. Patient also challenged her mom regarding her mom's past comment that patient could burn in hell with her father (who 2 years ago); mom remained unapologetic. Patient tells credit underwriter she has no idea why her mom said this other than that her mom is crazy... Subsequently patient reports that throughout the night, she had racing thoughts and no sleep. Discussed medications and patient and pt is eager to try Belbuca Films for pain management, available today dc'd gabapentin; pt said has never helped for pain or anxiety Adding clonidine at bedtime to help w/ sleep, anxiety 06/10 patient reports that Belbuca is helping with pain Patient remains very depressed and continues to have suicidal thoughts, saying she wants to end her life when she leaves the hospital. Patient Says I do not understand myself.. And laments she is gone most of her life without any suicidal ideation and only started this past September. Patient shared about some other reasons that it might be occurring and agrees that she still mourning the loss of her father who was her confidante; dealing with chronic pain having been off pain medications for several months and the ongoing struggles in her relationship with her mother and brother whom she feels are bullying; trying to come to terms with the fact that her mother simply isn't going to be the kind of mother she wishes she had. Patient agrees to medication management. 06/13 still very depressed with SI. Sleeping better however which is helpful and pain medications are also helpful. Patient agrees to increasing Vraylar; agrees to behavioral activation and attending groups. Despite ongoing thoughts about self-harm and ending her life when she is discharge, patient is also future oriented and says she would like to find a new place to live separate from her mother and brother. Asks for help going about that. 06/14 pt remains depressed, positive for SI with a plan but also future oriented talking about changing her living situation. Pt is engaged in treatment, trying to process her suicidal feelings and trying to be hopeful it will resolve. Agrees to adding Wellbutrin. -will likely add Wellbutrin; however, will probably keep Vraylar (maybe at lower dose) since pt has hx of manic-esque episodes (thought not formally diagnosed with bipolar as episode had several contributory factors) 06/15 remains depressed but processing feelings, doing worksheets, talking about her mother. Pt very anxious. -may increase wellbutrin for depression -considered starting Clonazepam 0.5mg BID; pt used to be on as much as 5mg of ativan daily; was weened off so hesitant to restart benzo's; 06/17 increase Wellbutrin 06/20 Over the weekend, patient assessed for infection, starting antibiotic; concerned that indwelling Van catheter is not sustainable; urology consulted and plan was for suprapubic catheter insertion for today. Patient however did not get fully informed of this and was upset to learn that a procedure was planned. She was however able to discuss this at length with credit underwriter and urology team and agreed to proceed. 06/21 Dr. Niño decided better to do a cystoscopy 1st and then decide whether not suprapubic catheter verse bladder stimulator; patient consents Seen by infectious disease: She has no urinary concerns at this time..No further antibiotics for now 06/22 Patient discussed conversation she had with her brother that was reassuring. Patient felt understood by him and supported which has lifted her mood. She feels that although she still depressed perhaps some of the depression is lifting and she starting to feel that there is hope of change in her situation. Patient remains very anxious. Earlier she had said she did not want to get back on benzodiazepines, having been on Ativan 5 mg for decades, weaned off only about a year ago. However given patient's struggles with anxiety and the fact that benzos have helped her in the past, discussed restarting a benzodiazepine, this time clonazepam 0.5 mg b.i.d.; credit underwriter discussed at length risks for addiction and the constant desire to have more. Patient said she very much does not want that to happen and feels that she will be able to minimize her use 06/23 Depressed, with intermittent SI. very anxious and with despairing thoughts has upcoming anniversary of her father's which is this July 03; will try to make it remembrance day and change the perspective. -Feeling better about catheter and plan; credit underwriter discussed with urology who met with patient and plan is for July 05 to move forward with stimulator -patient attending groups and engaged in treatment 06/24 a little better; mood up and down and still intermittent SI but patient is working on being hopeful employee numerous coping skills. Agrees to increase Wellbutrin 06/25 Patient continues to report depressed mood; told nurse that she remains purging daily and still plans to attempt suicide when she leaves. However on the unit, she seems more relaxed. Patient shared with credit underwriter her plan to remember her father on the anniversary of his . 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 Currently she is eating enough. As this is a chronic problem that that has gone on for over 20 years, and with which patient has been able to cope with on her own, without needing hospitalizations or [facility] admissions since teenage years, credit underwriter does not expect that it will resolve during this inpatient stay and does not believe that it needs to. 06/27 very tearful sad; suicidal; pushing self to be around others, groups -talked about eating struggles, purging; trying not to 06/28 do not think that medication management will change patients depression at this time. Rather she needs continued time to process her feelings of despair, grief about her fathers , hx of trauma, feeling her future is bleak. -credit underwriter engaged in psychodynamic psychotherapy PLAN: CV? Q 5s due to?indwelling?Van Continue clonazepam 0.5 mg b.i.d. Increase to WEllbutrin XL 450 mg for continued depression (pt adamant about not starting anti-depressant with risk of wt gain) Continue Vraylar 4.5 mg daily (Vraylar chosen since patient has depression but also history of manic type behaviors, possibly manic episode with some delusions and AH) Continue Belbuca 75mcg films BID for pain management (history of fentanyl patch, morphine, oxycodone, OxyContin) clonidine prn Continue Flagyl 500 q.12 hours x7 days placed for bacterial vaginosis; id examined patient and reports no need for any additional antibiotic regimen Urology appointment: July 05 for placement of bladder stimulator (With Dr. Leiva) Cystoscopy Findings: Bladder wall thickening, no vaginal or bladder mesh, no evidence outlet obstruction Hospitalist note 06/18 Receiving Pyridium UA 06/18 positive for 4+ bacteria, greater than 50 WBC, large leukocyte esterase positive nitrates Urine culture pending Urine culture 05/25 and 06/01 grew Raissa glabrata patient received Diflucan 200 mg daily from 06/01 through 06/15 Bacterial vaginosis PCR positive Raissa grew size/glabrata detected Due to persistent symptoms of vaginal pain/discharge recommend Infectious Disease consultation Follow urine culture. Patient educated on: diagnosis, medication risk/benefits and medical condition Patient educated on: diagnosis and therapeutic strategies Informed Consent: understands Reason for continued inpatient stay Substantial Risk for: harm to self and rapid decompensation Time Spent With Patient Time: Total time managing care of this patient today ____ minutes.
[2024-06-28 14:43] VITALS: BP 124/81
[2024-06-28 20:00] VITALS: BP 141/85; PULSE 102; RESP 18; TEMP 36.9; O2SAT 99
[2024-06-28] MEDS: Tamsulosin HCL 0.4 MG CAPSULE PO (20:18)
[2024-06-28] MEDS: QUEtiapine Fumarate 50 MG TABLET PO (20:19)
[2024-06-29 03:25] VITALS: BP 124/86
[2024-06-29] MEDS: cloNIDine HCL 0.1 MG TABLET PO ×3 (03:25→21:48)
[2024-06-29] MEDS: hydrOXYzine HCL 25 MG TABLET PO (03:25)
[2024-06-29 08:00] VITALS: BP 139/92; PULSE 84; RESP 16; TEMP 36.6; O2SAT 97
[2024-06-29] MEDS: Cariprazine HCl 1.5 MG CAPSULE 4.5 MG PO (08:35)
[2024-06-29] MEDS: buPROPion HCl XL 150 MG TAB.ER.24H 450 MG PO (08:35)
[2024-06-29] MEDS: Sennosides/Docusate Sodium TABLET 2 TAB PO (08:35)
[2024-06-29] MEDS: Ascorbic Acid 500 MG TABLET 1000 MG PO (08:35)
[2024-06-29] MEDS: BUPRENORPHINE 75 MCG 1 EACH PO ×2 (08:36→21:50)
[2024-06-29] MEDS: Lidocaine 4 % Patch ADH..PATCH 1 PATCH TRANSDERMA (08:36)
[2024-06-29] MEDS: clonazePAM 0.5 MG TABLET PO ×2 (08:36→18:15)
--- NOTE | 2024-06-29 09:44 | HO.PSYCHPN ---
Subjective Subjective Date of Service: 06/29/24 Reason For Visit: Sa Interim History: Met with patient; discussed with team Patient depressed with on and off SI; she is planning a memorial service for her father this Thursday with configuration analyst and charge nurse involved in helping. Patient discussed her continued upset feelings regarding family relationships and subsequent trauma; discussed alternative perspectives and approach to her history. Patient still worries she will be suicidal on discharge however she continues to try and plan for the future as well. She said she hates the suicidal thoughts and wonders when though. Mental Status Exam Mental Status Exam Narrative: Pt is alert and oriented; behavior is cooperative, more calm; cachectic; dressed in hospital attire with hair braided; adequate hygiene; mood is described as depressed and affect congruent, downcast; eye contact appropriate; Speech is a normal rate, volume and prosody; no psychomotor retardation present; thought process is organized and goal directed; Thought content is on guilty feelings, missing father, hopeless; medical comorbidities; otherwise pertinent to relevant topics and without any delusional content, paranoid ideations or grandiosity; increased SI thoughts; no HI. There is no evidence of perceptual disturbance. Patients insight and judgment impaired Diagnostics Vital Signs (24Hr): Vital Signs - 24 hr 06/28/24 14:43 06/28/24 20:00 06/29/24 03:25 Temperature 98.4 F Pulse Rate 102 H Respiratory Rate 18 Blood Pressure 124/81 141/85 H 124/86 Pulse Oximetry 99 Oxygen Delivery Method Room Air 06/29/24 08:00 Temperature 98 F Pulse Rate 84 Respiratory Rate 16 Blood Pressure 139/92 H Pulse Oximetry 97 Oxygen Delivery Method Room Air BMI result Body Mass Index 17.2 Labs 06/06/24 08:20 07/02/24 10:41 Imaging Radiology Impressions: ITS Impressions KUB X-Ray 06/03/24 19:55 IMPRESSION: Increased amount of stool in the colon suggesting constipation. Please correlate with clinical presentation. Electronically signed by: Oneida Pham MD 06/04/2024 07:31 AM EDT Renal Ultrasound 06/04/24 14:49 IMPRESSION: No ultrasound evidence of renal obstruction or hydronephrosis. Limited visualization of the left kidney obscured by bowel gas, exam otherwise unremarkable. Electronically signed by: Oneida Pham MD 06/05/2024 12:56 PM EDT RP Abdomen/Pelvis CT 06/04/24 18:33 IMPRESSION: Severe constipation. Otherwise unremarkable CT abdomen and pelvis. Fleischner guidelines were followed. Electronically signed by: Deyvi Collins MD 06/04/2024 07:05 PM EDT RP Ribs X-Ray 06/19/24 10:15 IMPRESSION: 1. Mild degenerative changes of the left shoulder. 2. No left-sided rib fracture. Electronically signed by: Orlando Lindsey MD 06/19/2024 10:50 AM EDT RP Shoulder X-Ray 06/19/24 10:15 IMPRESSION: 1. Mild degenerative changes of the left shoulder. 2. No left-sided rib fracture. Electronically signed by: Orlando Lindsey MD 06/19/2024 10:50 AM EDT RP Medications Medications Current Medications Acetaminophen (Acetaminophen 325 Mg Tablet) 650 mg PO Q6H PRN PRN Reason: Headache/Pain Mild Scale (1-3) Last Admin: 06/22/24 03:24 Dose: 650 mg Al Hydroxide/Mg Hydroxide (Magnesium Hydrox/Alum Hydrox 30 Ml Oral.Susp) 30 ml PO Q6H PRN PRN Reason: Heartburn/Nausea Albuterol Sulfate (Albuterol Sulfate 90 Mcg 8 Gm Inhaler) 2 puff INHALE QID PRN PRN Reason: Shortness Of Breath Ascorbic Acid (Ascorbic Acid 500 Mg Tablet) 1,000 mg PO DAILY [facility] Last Admin: 06/29/24 08:35 Dose: 1,000 mg Benzocaine (Throat Lozenge, Medicated Lozenge) 1 lozenge MUCOUS MEM Q2H PRN PRN Reason: Sore Throat Bisacodyl (Bisacodyl 5 Mg Tablet.Dr) 10 mg PO BEDTIME [facility] Last Admin: 06/28/24 20:38 Dose: Not Given Bupropion HCl (Bupropion Hcl Xl 150 Mg Tab.Er.24h) 450 mg PO DAILY [facility] Last Admin: 06/29/24 08:35 Dose: 450 mg Cariprazine (Cariprazine Hcl 1.5 Mg Capsule) 4.5 mg PO DAILY [facility] Last Admin: 06/29/24 08:35 Dose: 4.5 mg Clonazepam (Clonazepam 0.5 Mg Tablet) 0.5 mg PO BID [facility] Last Admin: 06/29/24 08:36 Dose: 0.5 mg Clonidine HCl (Clonidine Hcl 0.1 Mg Tablet) 0.1 mg PO BEDTIME [facility]; Protocol Last Admin: 06/28/24 20:18 Dose: 0.1 mg Clonidine HCl (Clonidine Hcl 0.1 Mg Tablet) 0.1 mg PO Q4H PRN; Protocol PRN Reason: anxiety Last Admin: 06/29/24 03:25 Dose: 0.1 mg Hydroxyzine HCl (Hydroxyzine Hcl 25 Mg Tablet) 25 mg PO Q6H PRN PRN Reason: Anxiety Last Admin: 06/29/24 03:25 Dose: 25 mg Ibuprofen (Ibuprofen 600 Mg Tablet) 600 mg PO Q6H PRN PRN Reason: Pain, Severe (Pain Scale 7-10) Last Admin: 06/27/24 05:37 Dose: 600 mg Lactulose (Lactulose 20 Gm/30 Ml Solution) 40 gm PO DAILY [facility] Last Admin: 06/29/24 08:37 Dose: Not Given Lidocaine (Lidocaine 4 % Patch Adh..Patch) 1 patch TRANSDERMA DAILY [facility]; Protocol Last Admin: 06/29/24 08:36 Dose: 1 patch Lidocaine HCl (Lidocaine Hcl 2 % Urojet 10 Ml Jel.Pf.Luis) 10 ml TOPICAL BID PRN PRN Reason: Pain, Severe (Pain Scale 7-10) Last Admin: 06/19/24 22:05 Dose: 10 ml Loperamide HCl (Loperamide Hcl 2 Mg Capsule) 2 mg PO Q4H PRN PRN Reason: Diarrhea Magnesium Hydroxide (Milk Of Magnesia 30 Ml Oral.Susp) 30 ml PO DAILY PRN PRN Reason: Constipation Last Admin: 06/04/24 05:22 Dose: 30 ml Multi-Ingred Cream/Lotion/Oil/Oint (Mineral Oil/Petrolatum,White 106 Gm Tube) 1 appl TOPICAL BID PRN; Protocol PRN Reason: Dry Skin Last Admin: 06/13/24 21:44 Dose: 1 appl Patient Own (Belbuca (75mcg Buccal Films)) 1 each PO BID [facility] Last Admin: 06/29/24 08:36 Dose: 1 each Ondansetron HCl (Ondansetron Odt 4 Mg Tab.Rapdis) 4 mg TRANSLINGU Q6H PRN PRN Reason: Nausea and Vomiting Last Admin: 06/18/24 16:17 Dose: 4 mg Polyethylene Glycol (Polyethylene Glycol 3350 17 Gm Powd.Pack) 17 gm PO BID [facility] Last Admin: 06/29/24 08:38 Dose: Not Given Quetiapine Fumarate (Quetiapine Fumarate 50 Mg Tablet) 50 mg PO BEDTIME [facility] Last Admin: 06/28/24 20:19 Dose: 50 mg Senna/Docusate Sodium (Sennosides/Docusate Sodium Tablet) 2 tab PO BID [facility] Last Admin: 06/29/24 08:35 Dose: 2 tab Simethicone (Simethicone 80 Mg Tab.Chew) 160 mg PO BID PRN PRN Reason: bloating/gas Last Admin: 06/07/24 11:06 Dose: 160 mg Tamsulosin HCl (Tamsulosin Hcl 0.4 Mg Capsule) 0.4 mg PO BEDTIME [facility] Last Admin: 06/28/24 20:18 Dose: 0.4 mg Allergies Allergies Allergy/AdvReac Type Severity Reaction Status Date / Time azithromycin Allergy Itching Verified 06/21/24 12:35 levofloxacin [From Levaquin] Allergy Nightmare Verified 06/21/24 12:35 nitrofurantoin Allergy Itching Verified 06/21/24 12:35 [From Macrodantin] Assessment & Plan Assessment & Plan (1) MDD (major depressive disorder), recurrent episode, moderate: Status: Acute Code(s): F33.1 - Major depressive disorder, recurrent, moderate (2) PTSD (post-traumatic stress disorder): Status: Acute Code(s): F43.10 - Post-traumatic stress disorder, unspecified (3) Voiding dysfunction: Status: Acute Code(s): N39.8 - Other specified disorders of urinary system Assessment and Plan: She has no urinary concerns at this time No further antibiotics for now (4) Urinary retention: Status: Acute Code(s): R33.9 - Retention of urine, unspecified (5) Jennifer-Danlos disease: Status: Acute Code(s): Q79.60 - Jennifer-Danlos syndrome, unspecified (6) Osteogenesis imperfecta: Status: Acute Code(s): Q78.0 - Osteogenesis imperfecta (7) Myofascial pain syndrome: Status: Acute Code(s): M79.18 - Myalgia, other site Plan HPI: Patient is a 39-year-old female with history of Jennifer Danlos syndrome, osteogenesis imperfecta, myofascial pain syndrome, migraines, juvenile osteoporosis, asthma, and mood disorder with history of rectocele, vaginal mesh surgery, urinary retention requiring Van catheterization, which was recently restarted. Patient?presented?to?[facility]?on?924?following?intentional?overdose?on?muscle?relaxers.??Patient?however?was?immediately?transferred?to?medical?floor?for?urinary?retention;?she?stabilized?there?and?was?discharged.?? She?presents?again?for?overdose On?gabapentin?and?trazodone,?Which?she?asserts?was?not?intentional (though later admits it was),?saying?she?just?wanted?to?sleep?and?get?relief?from?chronic?pain However?she?agrees?it?was?impulsive?and?unsafe.??Patient?currently?denies?any?SI.??She?reports?however?that?life?has?been?very?difficultff?pain?medications,?having?been?prescribed?opioids?consistently?for?the?past?24?years,? as?well?as?Ativan.??Patient?agrees?she?needs Help?stabilizing?and?coping. Relevant Medical/psych History: Patient was on opiates scheduled for 24 years to manage chronic medical comorbidities, resulting in hx of multiple fractures/falls and subsequent chronic pain. Pt denies any hx of substance abuse, including cannabis. She did screen positive for Fentanyl at first admission in October 2024 but is adamant she's never used it in her life and no quantitative labs done (leaving Fentanyl use inconclusive). Patients long-time physician of [address] Brigido Dietrich retired and new PCP tapered her off and discontinued all opioid pain management (also tapered and dc'd ativan). Patient reports she has been in constant pain and discomfort since then and has felt very frustrated and challenged to enjoy life, sometimes challenging her desire to live. Discussed?case?with?MAGDA Dunaway from pain management clinic: pt seen on 05/24. MAGDA Dunaway agrees that patients medical comorbidities and subsequent chronic pain syndrome are commonly treated with opioid pain management. She recommends either Butrans patch or preferably Belbucha films (a form of Buprenorphin and titrating it to 150mg BID). Pt is also appropriate to get other nerve blocking treatments at pain clinic who will f/u with pt. Professor Of Historical Theology spoke with patient's PCP Dr. Rubio at [facility] Dr. Rubio reports concurs that patient has Osteogenesis imprefecta, Ehlos Danlos Pt was on opioids for 24 years with prior PCP. With [facility] she was on Oxycodine 30mg QID and Oxycontin 30mg daily. In Sep 2023 pt was admitted to [facility] for concern for overdose. Additionally, there were other concerns including that [facility] notes referenced that patient reported being on a Fentanyl patch, which this provider had never prescribed. Additionally, there was hx of patient needing refills early and a report that her mother had used some of her medications. Also patient had significant weight loss which provider was concerned might have contributed to possible accidental overdose. Because of these concerns provider, clinic repeatedly called patient to come in and discuss pain management and reportedly reached out to her from October until January however patient did not respond or come in for appointments, having missed several. Provider reports that because of lack of communication and ongoing concern that was never addressed, Provider felt it was necessary to taper patient off pain medication which was started in January; patient was also tapered off Ativan. Provider agrees that patient does have significant medical history that is commonly treated with chronic pain medication. Professor Of Historical Theology discussed options with them and Dr. Rubio agrees that starting patient on a buprenorphine product is an acceptable alternative to oxycodone. Vraylar since depressed and hx of manic-esque IMPRESSION: Patient's?depression?and?SI?seem?to?have significant?situational component?as?she?is?No?longer?receiving?pain?management?for?severe,?chronic?pain. Patient?has?no?known?history?of?substance?abuse.??Although?she?did?screen?positive?for?fentanyl (on?10/27/2023 and?05/18/2024), No?quantitative?analysis?was?done. ?This?mean that?fentanyl?screen?could?very?well?be?a?false-positive?result (which is not uncommon). Medical?decision?should?not?be?based?on?only?a?positive?screen?for?fentanyl. Patient does struggle with SI and with her chronic?pain?And?poor?support?will?likely?continue?to?produce?mood?instability.??Treatment?plan?will?include?fha underwriter/team?discussion?with Outpatient?PCP?regarding?plan?for?treatment. Hospital course: 06/05: Continue current regimen and plans 06/06. Continue current plans and regimen. Loperamide was put on hold. Started on simethicone by hospitalist. No indications of GI bleeding currently. -seen by GI: C/o constipation and worsening abdominal distension. Will order CT A/P with IV/PO contrast to assess for SBO/ileus though passage of gas and small amount of stool argues against complete obstruction; however she is at risk given multiple surgeries. If no obstruction will order bowel regimen to address constipation. Continue Van, Urology following. 06/07 Patient reports that she is depressed. She apologized for not being more forthcoming earlier on in says it took her awhile to admitted to herself but she does not want to be in this world anymore... And has a plan to jump in front of a train on discharge. Patient also reports that overdose on trazodone/gabapentin was actually an intentional suicide attempt. She reports a constant deluge of self-deprecating thoughts which include that she is worthless, discussed in, and fat. Professor Of Historical Theology reviewed patient's history of anorexia and patient reports she sees herself as fat every day and eats very little (history of anorexia since 14 years old; was at brought up oral for a month with a feeding tube; she understands that this is a significant cause of her chronic constipation). Despite her SI, patient does want help getting better agrees to try antidepressant medication; fha underwriter reviewed options and risks/side effects and patient with [facility]. Also discussed pain medication management and patient agrees with Belbuca which she has heard of; she also agrees to non opioid pain management and will follow-up with pain management Clinic here at [facility]. Discussed relationship with her mother and she does not SA think her mother struggles with drug addiction but has caught her trying to get into her room, which patient keeps locked, looking for her medications which she has taken in the past. Patient said she reported this to her PCP. Patient does have history of being prescribed fentanyl patch however she did not like them and weaned herself off of them; set had some left over 06/08 Patient remains depressed with suicidal thinking however is trying to be hopeful and has tolerated Vraylar and says will continue, with increased dose; grateful for help getting Belbuca through prior authorization. -Discussed case with urology who recommends remaining with indwelling Van since failed voiding attempt on 06/03; will continue to follow -pt reported and nurse corroborated that Van bag containing urine was blood-tinged; discussed with Urologist, deemed likely micro trauma, and to keep van in place; recently failed voiding trial on 06/03 06/09 Patient reports she remains depressed, with SI. Patient also reports she had a very difficult time sleeping last night feeling very upset following a conversation she had on the phone with her mother. Patient expressed to her mother she is feeling hurt that her mom has not visited or called throughout her admission, even on patient's birthday; she says her mom was on apologetic. Patient also challenged her mom regarding her mom's past comment that patient could burn in hell with her father (who 2 years ago); mom remained unapologetic. Patient tells fha underwriter she has no idea why her mom said this other than that her mom is crazy... Subsequently patient reports that throughout the night, she had racing thoughts and no sleep. Discussed medications and patient and pt is eager to try Belbuca Films for pain management, available today dc'd gabapentin; pt said has never helped for pain or anxiety Adding clonidine at bedtime to help w/ sleep, anxiety 06/10 patient reports that Belbuca is helping with pain Patient remains very depressed and continues to have suicidal thoughts, saying she wants to end her life when she leaves the hospital. Patient Says I do not understand myself.. And laments she is gone most of her life without any suicidal ideation and only started this past September. Patient shared about some other reasons that it might be occurring and agrees that she still mourning the loss of her father who was her confidante; dealing with chronic pain having been off pain medications for several months and the ongoing struggles in her relationship with her mother and brother whom she feels are bullying; trying to come to terms with the fact that her mother simply isn't going to be the kind of mother she wishes she had. Patient agrees to medication management. 06/13 still very depressed with SI. Sleeping better however which is helpful and pain medications are also helpful. Patient agrees to increasing Vraylar; agrees to behavioral activation and attending groups. Despite ongoing thoughts about self-harm and ending her life when she is discharge, patient is also future oriented and says she would like to find a new place to live separate from her mother and brother. Asks for help going about that. 06/14 pt remains depressed, positive for SI with a plan but also future oriented talking about changing her living situation. Pt is engaged in treatment, trying to process her suicidal feelings and trying to be hopeful it will resolve. Agrees to adding Wellbutrin. -will likely add Wellbutrin; however, will probably keep Vraylar (maybe at lower dose) since pt has hx of manic-esque episodes (thought not formally diagnosed with bipolar as episode had several contributory factors) 06/15 remains depressed but processing feelings, doing worksheets, talking about her mother. Pt very anxious. -may increase wellbutrin for depression -considered starting Clonazepam 0.5mg BID; pt used to be on as much as 5mg of ativan daily; was weened off so hesitant to restart benzo's; 06/17 increase Wellbutrin 06/20 Over the weekend, patient assessed for infection, starting antibiotic; concerned that indwelling Van catheter is not sustainable; urology consulted and plan was for suprapubic catheter insertion for today. Patient however did not get fully informed of this and was upset to learn that a procedure was planned. She was however able to discuss this at length with fha underwriter and urology team and agreed to proceed. 06/21 Dr. Niño decided better to do a cystoscopy 1st and then decide whether not suprapubic catheter verse bladder stimulator; patient consents Seen by infectious disease: She has no urinary concerns at this time..No further antibiotics for now 06/22 Patient discussed conversation she had with her brother that was reassuring. Patient felt understood by him and supported which has lifted her mood. She feels that although she still depressed perhaps some of the depression is lifting and she starting to feel that there is hope of change in her situation. Patient remains very anxious. Earlier she had said she did not want to get back on benzodiazepines, having been on Ativan 5 mg for decades, weaned off only about a year ago. However given patient's struggles with anxiety and the fact that benzos have helped her in the past, discussed restarting a benzodiazepine, this time clonazepam 0.5 mg b.i.d.; fha underwriter discussed at length risks for addiction and the constant desire to have more. Patient said she very much does not want that to happen and feels that she will be able to minimize her use 06/23 Depressed, with intermittent SI. very anxious and with despairing thoughts has upcoming anniversary of her father's which is this July 03; will try to make it remembrance day and change the perspective. -Feeling better about catheter and plan; fha underwriter discussed with urology who met with patient and plan is for July 05 to move forward with stimulator -patient attending groups and engaged in treatment 06/24 a little better; mood up and down and still intermittent SI but patient is working on being hopeful employee numerous coping skills. Agrees to increase Wellbutrin 06/25 Patient continues to report depressed mood; told nurse that she remains purging daily and still plans to attempt suicide when she leaves. However on the unit, she seems more relaxed. Patient shared with fha underwriter her plan to remember her father on the anniversary of his . 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 Currently she is eating enough. As this is a chronic problem that that has gone on for over 20 years, and with which patient has been able to cope with on her own, without needing hospitalizations or [facility] admissions since teenage years, fha underwriter does not expect that it will resolve during this inpatient stay and does not believe that it needs to. 06/27 very tearful sad; suicidal; pushing self to be around others, groups -talked about eating struggles, purging; trying not to 06/28 do not think that medication management will change patients depression at this time. Rather she needs continued time to process her feelings of despair, grief about her fathers , hx of trauma, feeling her future is bleak. -fha underwriter engaged in psychodynamic psychotherapy 06/29 same presentation; fha underwriter engaged in psychodynamic psychotherapy PLAN: CV? Q 5s due to?indwelling?Van Continue clonazepam 0.5 mg b.i.d. Continue WEllbutrin XL 450 mg for continued depression (pt adamant about not starting anti-depressant with risk of wt gain) Continue Vraylar 4.5 mg daily (Vraylar chosen since patient has depression but also history of manic type behaviors, possibly manic episode with some delusions and AH) Continue Belbuca 75mcg films BID for pain management (history of fentanyl patch, morphine, oxycodone, OxyContin) clonidine prn Continue Flagyl 500 q.12 hours x7 days placed for bacterial vaginosis; id examined patient and reports no need for any additional antibiotic regimen Urology appointment: July 05 for placement of bladder stimulator (With Dr. Leiva) Cystoscopy Findings: Bladder wall thickening, no vaginal or bladder mesh, no evidence outlet obstruction Hospitalist note 06/18 Receiving Pyridium UA 06/18 positive for 4+ bacteria, greater than 50 WBC, large leukocyte esterase positive nitrates Urine culture pending Urine culture 05/25 and 06/01 grew Raissa glabrata patient received Diflucan 200 mg daily from 06/01 through 06/15 Bacterial vaginosis PCR positive Raissa grew size/glabrata detected Due to persistent symptoms of vaginal pain/discharge recommend Infectious Disease consultation Follow urine culture. Patient educated on: diagnosis, medication risk/benefits and medical condition Patient educated on: diagnosis, medication risk/benefits, therapeutic strategies and medical condition Informed Consent: understands Reason for continued inpatient stay Substantial Risk for: rapid decompensation Time Spent With Patient Time: Total time managing care of this patient today ____ minutes.
[2024-06-29] MEDS: Throat Lozenge, Medicated LOZENGE 1 LOZENGE MUCOUS MEM ×5 (10:05→21:56)
[2024-06-29 11:11] LABS: Influenza A PCR NEGATIVE (Negative); Influenza B PCR NEGATIVE (Negative); Resp Syncy Virus RNA Qual PCR NEGATIVE (Negative); SARS COV2 PCR INHOUSE NEGATIVE (Negative)
[2024-06-29 12:19] LABS: IDNOW Serial# 08D9AD1C; Strep A Nucleic Acid Negative (Negative)
[2024-06-29 16:09] VITALS: BP 129/94
[2024-06-29] MEDS: Ibuprofen 600 MG TABLET PO (16:09)
[2024-06-29] MEDS: Tamsulosin HCL 0.4 MG CAPSULE PO (21:47)
[2024-06-29] MEDS: QUEtiapine Fumarate 100 MG TABLET PO (21:47)
[2024-06-29 21:48] VITALS: BP 116/78
[2024-06-30 00:25] VITALS: BP 129/92; PULSE 86; RESP 16; TEMP 36.9; O2SAT 100
[2024-06-30 02:10] VITALS: BP 129/92
[2024-06-30] MEDS: cloNIDine HCL 0.1 MG TABLET PO ×3 (02:10→22:41)
[2024-06-30 08:00] VITALS: BP 123/81; PULSE 75; RESP 16; TEMP 2.4; TEMP 36.4; O2SAT 98
[2024-06-30] MEDS: Cariprazine HCl 1.5 MG CAPSULE 4.5 MG PO (09:32)
[2024-06-30] MEDS: Sennosides/Docusate Sodium TABLET 2 TAB PO (09:33)
[2024-06-30] MEDS: buPROPion HCl XL 150 MG TAB.ER.24H 450 MG PO (09:33)
[2024-06-30] MEDS: clonazePAM 0.5 MG TABLET PO ×2 (09:33→17:38)
[2024-06-30] MEDS: Ascorbic Acid 500 MG TABLET 1000 MG PO (09:34)
[2024-06-30] MEDS: BUPRENORPHINE 75 MCG 1 EACH PO ×2 (09:34→22:42)
--- NOTE | 2024-06-30 11:34 | HO.PSYCHPN ---
Subjective Subjective Date of Service: 06/30/24 Reason For Visit: Sa Interim History: c/o feeling just really suicidal today. plan to starve self to . feels clonidine and klonopin have been helpful, interested in discussing pain med change with MD (deferred for Dr. Hermosillo to address. pt does not appear in any physical discomfort). discussed with nursing staff, who feel pt is not substantially off of her baseline for recent days on the unit, spending more time out of her room today, interacting with peers, and with some smiling. no notable events or behaviors overnight. Mental Status Exam Mental Status Exam Narrative: Pt is alert and oriented; behavior is cooperative; cachectic; dressed in hospital attire; adequate hygiene; mood is described as depressed and affect congruent; eye contact appropriate; Speech is a normal rate, volume and prosody; no psychomotor retardation present; thought process is organized and goal directed; Thought content is on missing father, medical comorbidities; otherwise pertinent to relevant topics and without any delusional content, paranoid ideations or grandiosity; increased SI thoughts; no HI expressed. There is no evidence of perceptual disturbance. Patients insight and judgment impaired Diagnostics Vital Signs (24Hr): Vital Signs - 24 hr 06/29/24 16:09 06/29/24 21:48 06/30/24 00:25 Temperature 98.5 F Pulse Rate 86 Respiratory Rate 16 Blood Pressure 129/94 H 116/78 129/92 H Pulse Oximetry 100 Oxygen Delivery Method Room Air 06/30/24 02:10 06/30/24 08:00 Temperature 36.4 F L Pulse Rate 75 Respiratory Rate 16 Blood Pressure 129/92 H 123/81 Pulse Oximetry 98 Oxygen Delivery Method Room Air BMI result Body Mass Index 17.2 Labs 06/06/24 08:20 06/06/24 08:20 Labs: Laboratory Results - last 48 hr 06/29/24 06/29/24 10:01 11:51 Influenza Type A (PCR) NEGATIVE Influenza Type B (PCR) NEGATIVE RSV RNA Qual (PCR) NEGATIVE SARS-CoV-2 RNA (RT-PCR) NEGATIVE S. pyogenes GrpA EULA Negative Imaging Radiology Impressions: ITS Impressions KUB X-Ray 06/03/24 19:55 IMPRESSION: Increased amount of stool in the colon suggesting constipation. Please correlate with clinical presentation. Electronically signed by: Oneida Pham MD 06/04/2024 07:31 AM EDT RP Renal Ultrasound 06/04/24 14:49 IMPRESSION: No ultrasound evidence of renal obstruction or hydronephrosis. Limited visualization of the left kidney obscured by bowel gas, exam otherwise unremarkable. Electronically signed by: Oneida Pham MD 06/05/2024 12:56 PM EDT RP Abdomen/Pelvis CT 06/04/24 18:33 IMPRESSION: Severe constipation. Otherwise unremarkable CT abdomen and pelvis. Fleischner guidelines were followed. Electronically signed by: Deyvi Collins MD 06/04/2024 07:05 PM EDT RP Ribs X-Ray 06/19/24 10:15 IMPRESSION: 1. Mild degenerative changes of the left shoulder. 2. No left-sided rib fracture. Electronically signed by: Orlando Lindsey MD 06/19/2024 10:50 AM EDT RP Shoulder X-Ray 06/19/24 10:15 IMPRESSION: 1. Mild degenerative changes of the left shoulder. 2. No left-sided rib fracture. Electronically signed by: Orlando Lindsey MD 06/19/2024 10:50 AM EDT RP Medications Medications Current Medications Acetaminophen (Acetaminophen 325 Mg Tablet) 650 mg PO Q6H PRN PRN Reason: Headache/Pain Mild Scale (1-3) Last Admin: 06/22/24 03:24 Dose: 650 mg Al Hydroxide/Mg Hydroxide (Magnesium Hydrox/Alum Hydrox 30 Ml Oral.Susp) 30 ml PO Q6H PRN PRN Reason: Heartburn/Nausea Albuterol Sulfate (Albuterol Sulfate 90 Mcg 8 Gm Inhaler) 2 puff INHALE QID PRN PRN Reason: Shortness Of Breath Ascorbic Acid (Ascorbic Acid 500 Mg Tablet) 1,000 mg PO DAILY [facility] Last Admin: 06/30/24 09:34 Dose: 1,000 mg Benzocaine (Throat Lozenge, Medicated Lozenge) 1 lozenge MUCOUS MEM Q2H PRN PRN Reason: Sore Throat Last Admin: 06/29/24 21:56 Dose: 1 lozenge Bisacodyl (Bisacodyl 5 Mg Tablet.Dr) 10 mg PO BEDTIME [facility] Last Admin: 06/29/24 21:38 Dose: Not Given Bupropion HCl (Bupropion Hcl Xl 150 Mg Tab.Er.24h) 450 mg PO DAILY [facility] Last Admin: 06/30/24 09:33 Dose: 450 mg Cariprazine (Cariprazine Hcl 1.5 Mg Capsule) 4.5 mg PO DAILY [facility] Last Admin: 06/30/24 09:32 Dose: 4.5 mg Clonazepam (Clonazepam 0.5 Mg Tablet) 0.5 mg PO BID@0900,1700 [facility] Last Admin: 06/30/24 09:33 Dose: 0.5 mg Clonidine HCl (Clonidine Hcl 0.1 Mg Tablet) 0.1 mg PO BEDTIME [facility]; Protocol Last Admin: 06/29/24 21:48 Dose: 0.1 mg Clonidine HCl (Clonidine Hcl 0.1 Mg Tablet) 0.1 mg PO Q4H PRN; Protocol PRN Reason: anxiety Last Admin: 06/30/24 02:10 Dose: 0.1 mg Hydroxyzine HCl (Hydroxyzine Hcl 25 Mg Tablet) 25 mg PO Q6H PRN PRN Reason: Anxiety Last Admin: 06/29/24 03:25 Dose: 25 mg Ibuprofen (Ibuprofen 600 Mg Tablet) 600 mg PO Q6H PRN PRN Reason: Pain, Severe (Pain Scale 7-10) Last Admin: 06/29/24 16:09 Dose: 600 mg Lactulose (Lactulose 20 Gm/30 Ml Solution) 40 gm PO DAILY [facility] Last Admin: 06/30/24 09:37 Dose: Not Given Lidocaine (Lidocaine 4 % Patch Adh..Patch) 1 patch TRANSDERMA DAILY [facility]; Protocol Last Admin: 06/29/24 08:36 Dose: 1 patch Lidocaine HCl (Lidocaine Hcl 2 % Urojet 10 Ml Jel.Pf.Luis) 10 ml TOPICAL BID PRN PRN Reason: Pain, Severe (Pain Scale 7-10) Last Admin: 06/19/24 22:05 Dose: 10 ml Loperamide HCl (Loperamide Hcl 2 Mg Capsule) 2 mg PO Q4H PRN PRN Reason: Diarrhea Magnesium Hydroxide (Milk Of Magnesia 30 Ml Oral.Susp) 30 ml PO DAILY PRN PRN Reason: Constipation Last Admin: 06/04/24 05:22 Dose: 30 ml Multi-Ingred Cream/Lotion/Oil/Oint (Mineral Oil/Petrolatum,White 106 Gm Tube) 1 appl TOPICAL BID PRN; Protocol PRN Reason: Dry Skin Last Admin: 06/13/24 21:44 Dose: 1 appl Patient Own (Belbuca (75mcg Buccal Films)) 1 each PO BID [facility] Last Admin: 06/30/24 09:34 Dose: 1 each Ondansetron HCl (Ondansetron Odt 4 Mg Tab.Rapdis) 4 mg TRANSLINGU Q6H PRN PRN Reason: Nausea and Vomiting Last Admin: 06/18/24 16:17 Dose: 4 mg Polyethylene Glycol (Polyethylene Glycol 3350 17 Gm Powd.Pack) 17 gm PO BID [facility] Last Admin: 06/30/24 09:38 Dose: Not Given Quetiapine Fumarate (Quetiapine Fumarate 100 Mg Tablet) 100 mg PO BEDTIME [facility] Last Admin: 06/29/24 21:47 Dose: 100 mg Senna/Docusate Sodium (Sennosides/Docusate Sodium Tablet) 2 tab PO BID [facility] Last Admin: 06/30/24 09:33 Dose: 2 tab Simethicone (Simethicone 80 Mg Tab.Chew) 160 mg PO BID PRN PRN Reason: bloating/gas Last Admin: 06/07/24 11:06 Dose: 160 mg Tamsulosin HCl (Tamsulosin Hcl 0.4 Mg Capsule) 0.4 mg PO BEDTIME [facility] Last Admin: 06/29/24 21:47 Dose: 0.4 mg Allergies Allergies Allergy/AdvReac Type Severity Reaction Status Date / Time azithromycin Allergy Itching Verified 06/21/24 12:35 levofloxacin [From Levaquin] Allergy Nightmare Verified 06/21/24 12:35 nitrofurantoin Allergy Itching Verified 06/21/24 12:35 [From Macrodantin] Assessment & Plan Assessment & Plan (1) MDD (major depressive disorder), recurrent episode, moderate: Status: Acute Code(s): F33.1 - Major depressive disorder, recurrent, moderate (2) PTSD (post-traumatic stress disorder): Status: Acute Code(s): F43.10 - Post-traumatic stress disorder, unspecified (3) Voiding dysfunction: Status: Acute Code(s): N39.8 - Other specified disorders of urinary system Assessment and Plan: She has no urinary concerns at this time No further antibiotics for now (4) Urinary retention: Status: Acute Code(s): R33.9 - Retention of urine, unspecified (5) Jennifer-Danlos disease: Status: Acute Code(s): Q79.60 - Jennifer-Danlos syndrome, unspecified (6) Osteogenesis imperfecta: Status: Acute Code(s): Q78.0 - Osteogenesis imperfecta (7) Myofascial pain syndrome: Status: Acute Code(s): M79.18 - Myalgia, other site Plan HPI: Patient is a 39-year-old female with history of Jennifer Danlos syndrome, osteogenesis imperfecta, myofascial pain syndrome, migraines, juvenile osteoporosis, asthma, and mood disorder with history of rectocele, vaginal mesh surgery, urinary retention requiring Van catheterization, which was recently restarted. Patient?presented?to?[facility]?on?924?following?intentional?overdose?on?muscle?relaxers.??Patient?however?was?immediately?transferred?to?medical?floor?for?urinary?retention;?she?stabilized?there?and?was?discharged.?? She?presents?again?for?overdose On?gabapentin?and?trazodone,?Which?she?asserts?was?not?intentional (though later admits it was),?saying?she?just?wanted?to?sleep?and?get?relief?from?chronic?pain However?she?agrees?it?was?impulsive?and?unsafe.??Patient?currently?denies?any?SI.??She?reports?however?that?life?has?been?very?difficultff?pain?medications,?having?been?prescribed?opioids?consistently?for?the?past?24?years,? as?well?as?Ativan.??Patient?agrees?she?needs Help?stabilizing?and?coping. Relevant Medical/psych History: Patient was on opiates scheduled for 24 years to manage chronic medical comorbidities, resulting in hx of multiple fractures/falls and subsequent chronic pain. Pt denies any hx of substance abuse, including cannabis. She did screen positive for Fentanyl at first admission in October 2024 but is adamant she's never used it in her life and no quantitative labs done (leaving Fentanyl use inconclusive). Patients long-time physician of [address] Brigido Dietrich retired and new PCP tapered her off and discontinued all opioid pain management (also tapered and dc'd ativan). Patient reports she has been in constant pain and discomfort since then and has felt very frustrated and challenged to enjoy life, sometimes challenging her desire to live. Discussed?case?with?MEDICAL CHIEF TECHNICIAN Vianey Dunaway from pain management clinic: pt seen on 05/24. MEDICAL CHIEF TECHNICIAN Gume agrees that patients medical comorbidities and subsequent chronic pain syndrome are commonly treated with opioid pain management. She recommends either Butrans patch or preferably Belbucha films (a form of Buprenorphin and titrating it to 150mg BID). Pt is also appropriate to get other nerve blocking treatments at pain clinic who will f/u with pt. Waste Salvager spoke with patient's PCP Dr. Rubio at [facility] Dr. Rubio reports concurs that patient has Osteogenesis imprefecta, Ehlos Danlos Pt was on opioids for 24 years with prior PCP. With [facility] she was on Oxycodine 30mg QID and Oxycontin 30mg daily. In Sep 2023 pt was admitted to [facility] for concern for overdose. Additionally, there were other concerns including that [facility] notes referenced that patient reported being on a Fentanyl patch, which this provider had never prescribed. Additionally, there was hx of patient needing refills early and a report that her mother had used some of her medications. Also patient had significant weight loss which provider was concerned might have contributed to possible accidental overdose. Because of these concerns provider, clinic repeatedly called patient to come in and discuss pain management and reportedly reached out to her from October until January however patient did not respond or come in for appointments, having missed several. Provider reports that because of lack of communication and ongoing concern that was never addressed, Provider felt it was necessary to taper patient off pain medication which was started in January; patient was also tapered off Ativan. Provider agrees that patient does have significant medical history that is commonly treated with chronic pain medication. Waste Salvager discussed options with them and Dr. uRbio agrees that starting patient on a buprenorphine product is an acceptable alternative to oxycodone. Vraylar since depressed and hx of manic-esque IMPRESSION: Patient's?depression?and?SI?seem?to?have significant?situational component?as?she?is?No?longer?receiving?pain?management?for?severe,?chronic?pain. Patient?has?no?known?history?of?substance?abuse.??Although?she?did?screen?positive?for?fentanyl (on?10/27/2023 and?05/18/2024), No?quantitative?analysis?was?done. ?This?mean that?fentanyl?screen?could?very?well?be?a?false-positive?result (which is not uncommon). Medical?decision?should?not?be?based?on?only?a?positive?screen?for?fentanyl. Patient does struggle with SI and with her chronic?pain?And?poor?support?will?likely?continue?to?produce?mood?instability.??Treatment?plan?will?include?consumer loan underwriter/team?discussion?with Outpatient?PCP?regarding?plan?for?treatment. Hospital course: 06/05: Continue current regimen and plans 06/06. Continue current plans and regimen. Loperamide was put on hold. Started on simethicone by hospitalist. No indications of GI bleeding currently. -seen by GI: C/o constipation and worsening abdominal distension. Will order CT A/P with IV/PO contrast to assess for SBO/ileus though passage of gas and small amount of stool argues against complete obstruction; however she is at risk given multiple surgeries. If no obstruction will order bowel regimen to address constipation. Continue Van, Urology following. 06/07 Patient reports that she is depressed. She apologized for not being more forthcoming earlier on in says it took her awhile to admitted to herself but she does not want to be in this world anymore... And has a plan to jump in front of a train on discharge. Patient also reports that overdose on trazodone/gabapentin was actually an intentional suicide attempt. She reports a constant deluge of self-deprecating thoughts which include that she is worthless, discussed in, and fat. Waste Salvager reviewed patient's history of anorexia and patient reports she sees herself as fat every day and eats very little (history of anorexia since 14 years old; was at brought up oral for a month with a feeding tube; she understands that this is a significant cause of her chronic constipation). Despite her SI, patient does want help getting better agrees to try antidepressant medication; consumer loan underwriter reviewed options and risks/side effects and patient with Vraylar. Also discussed pain medication management and patient agrees with Belbuca which she has heard of; she also agrees to non opioid pain management and will follow-up with pain management Clinic here at [facility]. Discussed relationship with her mother and she does not SA think her mother struggles with drug addiction but has caught her trying to get into her room, which patient keeps locked, looking for her medications which she has taken in the past. Patient said she reported this to her PCP. Patient does have history of being prescribed fentanyl patch however she did not like them and weaned herself off of them; set had some left over 06/08 Patient remains depressed with suicidal thinking however is trying to be hopeful and has tolerated Vraylar and says will continue, with increased dose; grateful for help getting Belbuca through prior authorization. -Discussed case with urology who recommends remaining with indwelling Van since failed voiding attempt on 06/03; will continue to follow -pt reported and nurse corroborated that Van bag containing urine was blood-tinged; discussed with Urologist, deemed likely micro trauma, and to keep van in place; recently failed voiding trial on 06/03 06/09 Patient reports she remains depressed, with SI. Patient also reports she had a very difficult time sleeping last night feeling very upset following a conversation she had on the phone with her mother. Patient expressed to her mother she is feeling hurt that her mom has not visited or called throughout her admission, even on patient's birthday; she says her mom was on apologetic. Patient also challenged her mom regarding her mom's past comment that patient could burn in hell with her father (who 2 years ago); mom remained unapologetic. Patient tells consumer loan underwriter she has no idea why her mom said this other than that her mom is crazy... Subsequently patient reports that throughout the night, she had racing thoughts and no sleep. Discussed medications and patient and pt is eager to try Belbuca Films for pain management, available today dc'd gabapentin; pt said has never helped for pain or anxiety Adding clonidine at bedtime to help w/ sleep, anxiety 06/10 patient reports that Belbuca is helping with pain Patient remains very depressed and continues to have suicidal thoughts, saying she wants to end her life when she leaves the hospital. Patient Says I do not understand myself.. And laments she is gone most of her life without any suicidal ideation and only started this past September. Patient shared about some other reasons that it might be occurring and agrees that she still mourning the loss of her father who was her confidante; dealing with chronic pain having been off pain medications for several months and the ongoing struggles in her relationship with her mother and brother whom she feels are bullying; trying to come to terms with the fact that her mother simply isn't going to be the kind of mother she wishes she had. Patient agrees to medication management. 06/13 still very depressed with SI. Sleeping better however which is helpful and pain medications are also helpful. Patient agrees to increasing Vraylar; agrees to behavioral activation and attending groups. Despite ongoing thoughts about self-harm and ending her life when she is discharge, patient is also future oriented and says she would like to find a new place to live separate from her mother and brother. Asks for help going about that. 06/14 pt remains depressed, positive for SI with a plan but also future oriented talking about changing her living situation. Pt is engaged in treatment, trying to process her suicidal feelings and trying to be hopeful it will resolve. Agrees to adding Wellbutrin. -will likely add Wellbutrin; however, will probably keep Vraylar (maybe at lower dose) since pt has hx of manic-esque episodes (thought not formally diagnosed with bipolar as episode had several contributory factors) 06/15 remains depressed but processing feelings, doing worksheets, talking about her mother. Pt very anxious. -may increase wellbutrin for depression -considered starting Clonazepam 0.5mg BID; pt used to be on as much as 5mg of ativan daily; was weened off so hesitant to restart benzo's; 06/17 increase Wellbutrin 06/20 Over the weekend, patient assessed for infection, starting antibiotic; concerned that indwelling Van catheter is not sustainable; urology consulted and plan was for suprapubic catheter insertion for today. Patient however did not get fully informed of this and was upset to learn that a procedure was planned. She was however able to discuss this at length with consumer loan underwriter and urology team and agreed to proceed. 06/21 Dr. Niño decided better to do a cystoscopy 1st and then decide whether not suprapubic catheter verse bladder stimulator; patient consents Seen by infectious disease: She has no urinary concerns at this time..No further antibiotics for now 06/22 Patient discussed conversation she had with her brother that was reassuring. Patient felt understood by him and supported which has lifted her mood. She feels that although she still depressed perhaps some of the depression is lifting and she starting to feel that there is hope of change in her situation. Patient remains very anxious. Earlier she had said she did not want to get back on benzodiazepines, having been on Ativan 5 mg for decades, weaned off only about a year ago. However given patient's struggles with anxiety and the fact that benzos have helped her in the past, discussed restarting a benzodiazepine, this time clonazepam 0.5 mg b.i.d.; consumer loan underwriter discussed at length risks for addiction and the constant desire to have more. Patient said she very much does not want that to happen and feels that she will be able to minimize her use 06/23 Depressed, with intermittent SI. very anxious and with despairing thoughts has upcoming anniversary of her father's which is this July 03; will try to make it remembrance day and change the perspective. -Feeling better about catheter and plan; consumer loan underwriter discussed with urology who met with patient and plan is for July 05 to move forward with stimulator -patient attending groups and engaged in treatment 06/24 a little better; mood up and down and still intermittent SI but patient is working on being hopeful employee numerous coping skills. Agrees to increase Wellbutrin 06/25 Patient continues to report depressed mood; told nurse that she remains purging daily and still plans to attempt suicide when she leaves. However on the unit, she seems more relaxed. Patient shared with consumer loan underwriter her plan to remember her father on the anniversary of his . 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 Currently she is eating enough. As this is a chronic problem that that has gone on for over 20 years, and with which patient has been able to cope with on her own, without needing hospitalizations or [facility] admissions since teenage years, consumer loan underwriter does not expect that it will resolve during this inpatient stay and does not believe that it needs to. 06/27 very tearful sad; suicidal; pushing self to be around others, groups -talked about eating struggles, purging; trying not to 06/28 do not think that medication management will change patients depression at this time. Rather she needs continued time to process her feelings of despair, grief about her fathers , hx of trauma, feeling her future is bleak. -consumer loan underwriter engaged in psychodynamic psychotherapy 06/30: feels clonidine and klonopin helpful for anxiety. asking for pain med change; deferred for return of attending, does not appear in pain. Q5s for SI/van. research staff member feel pt is not substantially worse than her recent inpatient baseline, but perhaps looking a bit better today than yesterday. PLAN: CV? Q 5s due to?indwelling?Van Continue clonazepam 0.5 mg b.i.d. Increase to WEllbutrin XL 450 mg for continued depression (pt adamant about not starting anti-depressant with risk of wt gain) Continue Vraylar 4.5 mg daily (Vraylar chosen since patient has depression but also history of manic type behaviors, possibly manic episode with some delusions and AH) Continue Belbuca 75mcg films BID for pain management (history of fentanyl patch, morphine, oxycodone, OxyContin) clonidine prn Continue Flagyl 500 q.12 hours x7 days placed for bacterial vaginosis; id examined patient and reports no need for any additional antibiotic regimen Urology appointment: July 05 for placement of bladder stimulator (With Dr. Leiva) Cystoscopy Findings: Bladder wall thickening, no vaginal or bladder mesh, no evidence outlet obstruction Hospitalist note 06/18 Receiving Pyridium UA 06/18 positive for 4+ bacteria, greater than 50 WBC, large leukocyte esterase positive nitrates Urine culture pending Urine culture 05/25 and 06/01 grew Raissa glabrata patient received Diflucan 200 mg daily from 06/01 through 06/15 Bacterial vaginosis PCR positive Raissa grew size/glabrata detected Due to persistent symptoms of vaginal pain/discharge recommend Infectious Disease consultation Follow urine culture. Patient educated on: diagnosis, medication risk/benefits and medical condition Reason for continued inpatient stay Substantial Risk for: harm to self and inability to function Time Spent With Patient Time: Total time managing care of this patient today __25__ minutes.
[2024-06-30 14:37] VITALS: BP 128/92
[2024-06-30 20:00] VITALS: BP 109/75; PULSE 107; RESP 16; TEMP 36.7; O2SAT 97
[2024-06-30 22:41] VITALS: BP 137/93
[2024-06-30] MEDS: QUEtiapine Fumarate 100 MG TABLET PO (22:41)
[2024-06-30] MEDS: hydrOXYzine HCL 25 MG TABLET PO (22:41)
[2024-06-30] MEDS: Throat Lozenge, Medicated LOZENGE 1 LOZENGE MUCOUS MEM (22:42)
[2024-06-30] MEDS: Tamsulosin HCL 0.4 MG CAPSULE PO (22:42)
[2024-07-01 03:06] VITALS: BP 129/95
[2024-07-01] MEDS: cloNIDine HCL 0.1 MG TABLET PO ×3 (03:06→21:13)
[2024-07-01 08:50] VITALS: BP 153/101; PULSE 71; RESP 16; TEMP 36.9; O2SAT 97
[2024-07-01] MEDS: clonazePAM 0.5 MG TABLET PO ×2 (09:05→16:38)
[2024-07-01] MEDS: Cariprazine HCl 1.5 MG CAPSULE 4.5 MG PO (09:05)
[2024-07-01] MEDS: Ascorbic Acid 500 MG TABLET 1000 MG PO (09:05)
[2024-07-01] MEDS: buPROPion HCl XL 150 MG TAB.ER.24H 450 MG PO (09:05)
[2024-07-01] MEDS: BUPRENORPHINE 75 MCG 1 EACH PO ×2 (09:15→21:12)
--- NOTE | 2024-07-01 12:22 | HO.PSYCHPN ---
Subjective Subjective Date of Service: 07/01/24 Reason For Visit: Sa Interim History: seen with DARRIUS brower. continues with SI with plan to starve self to , states there is nothing we can do to help her eat more. c/o insomnia, agrees to increase in seroquel. per staff, locked self in bathroom, SI, refusing contact from mother. Mental Status Exam Mental Status Exam Narrative: Pt is alert and oriented; behavior is cooperative; cachectic; dressed in hospital attire; adequate hygiene; mood is described as depressed and affect congruent; eye contact appropriate; Speech is a normal rate, volume and prosody; no psychomotor retardation present; thought process is organized and goal directed; Thought content is on suicidality and desire to ; otherwise pertinent to relevant topics and without any delusional content, paranoid ideations or grandiosity; increased SI thoughts; no HI expressed. There is no evidence of perceptual disturbance. Patients insight and judgment impaired Diagnostics Vital Signs (24Hr): Vital Signs - 24 hr 06/30/24 14:37 06/30/24 20:00 06/30/24 22:41 Temperature 98.0 F Pulse Rate 107 H Respiratory Rate 16 Blood Pressure 128/92 H 109/75 137/93 H Pulse Oximetry 97 Oxygen Delivery Method Room Air 07/01/24 03:06 07/01/24 08:50 Temperature 98.4 F Pulse Rate 71 Respiratory Rate 16 Blood Pressure 129/95 H 153/101 H Pulse Oximetry 97 Oxygen Delivery Method Room Air BMI result Body Mass Index 17.2 Labs 06/06/24 08:20 06/06/24 08:20 Imaging Radiology Impressions: ITS Impressions KUB X-Ray 06/03/24 19:55 IMPRESSION: Increased amount of stool in the colon suggesting constipation. Please correlate with clinical presentation. Electronically signed by: Oneida Pham MD 06/04/2024 07:31 AM EDT RP Renal Ultrasound 06/04/24 14:49 IMPRESSION: No ultrasound evidence of renal obstruction or hydronephrosis. Limited visualization of the left kidney obscured by bowel gas, exam otherwise unremarkable. Electronically signed by: Oneida Pham MD 06/05/2024 12:56 PM EDT RP Abdomen/Pelvis CT 10/12/24 18:33 IMPRESSION: Severe constipation. Otherwise unremarkable CT abdomen and pelvis. Fleischner guidelines were followed. Electronically signed by: Deyvi Collins MD 06/04/2024 07:05 PM EDT RP Ribs X-Ray 06/19/24 10:15 IMPRESSION: 1. Mild degenerative changes of the left shoulder. 2. No left-sided rib fracture. Electronically signed by: Orlando Lindsey MD 06/19/2024 10:50 AM EDT RP Shoulder X-Ray 06/19/24 10:15 IMPRESSION: 1. Mild degenerative changes of the left shoulder. 2. No left-sided rib fracture. Electronically signed by: Orlando Lindsey MD 06/19/2024 10:50 AM EDT RP Medications Medications Current Medications Acetaminophen (Acetaminophen 325 Mg Tablet) 650 mg PO Q6H PRN PRN Reason: Headache/Pain Mild Scale (1-3) Last Admin: 06/22/24 03:24 Dose: 650 mg Al Hydroxide/Mg Hydroxide (Magnesium Hydrox/Alum Hydrox 30 Ml Oral.Susp) 30 ml PO Q6H PRN PRN Reason: Heartburn/Nausea Albuterol Sulfate (Albuterol Sulfate 90 Mcg 8 Gm Inhaler) 2 puff INHALE QID PRN PRN Reason: Shortness Of Breath Ascorbic Acid (Ascorbic Acid 500 Mg Tablet) 1,000 mg PO DAILY [facility] Last Admin: 07/01/24 09:05 Dose: 1,000 mg Benzocaine (Throat Lozenge, Medicated Lozenge) 1 lozenge MUCOUS MEM Q2H PRN PRN Reason: Sore Throat Last Admin: 06/30/24 22:42 Dose: 1 lozenge Bisacodyl (Bisacodyl 5 Mg Tablet.Dr) 10 mg PO BEDTIME [facility] Last Admin: 06/30/24 22:43 Dose: Not Given Bupropion HCl (Bupropion Hcl Xl 150 Mg Tab.Er.24h) 450 mg PO DAILY [facility] Last Admin: 07/01/24 09:05 Dose: 450 mg Cariprazine (Cariprazine Hcl 1.5 Mg Capsule) 4.5 mg PO DAILY [facility] Last Admin: 07/01/24 09:05 Dose: 4.5 mg Clonazepam (Clonazepam 0.5 Mg Tablet) 0.5 mg PO BID@0900,1700 [facility] Last Admin: 07/01/24 09:05 Dose: 0.5 mg Clonidine HCl (Clonidine Hcl 0.1 Mg Tablet) 0.1 mg PO BEDTIME [facility]; Protocol Last Admin: 06/30/24 22:41 Dose: 0.1 mg Clonidine HCl (Clonidine Hcl 0.1 Mg Tablet) 0.1 mg PO Q4H PRN; Protocol PRN Reason: anxiety Last Admin: 07/01/24 03:06 Dose: 0.1 mg Hydroxyzine HCl (Hydroxyzine Hcl 25 Mg Tablet) 25 mg PO Q6H PRN PRN Reason: Anxiety Last Admin: 06/30/24 22:41 Dose: 25 mg Ibuprofen (Ibuprofen 600 Mg Tablet) 600 mg PO Q6H PRN PRN Reason: Pain, Severe (Pain Scale 7-10) Last Admin: 06/29/24 16:09 Dose: 600 mg Lactulose (Lactulose 20 Gm/30 Ml Solution) 40 gm PO DAILY [facility] Last Admin: 07/01/24 09:05 Dose: Not Given Lidocaine (Lidocaine 4 % Patch Adh..Patch) 1 patch TRANSDERMA DAILY [facility]; Protocol Last Admin: 07/01/24 09:05 Dose: Not Given Lidocaine HCl (Lidocaine Hcl 2 % Urojet 10 Ml Jel.Pf.Luis) 10 ml TOPICAL BID PRN PRN Reason: Pain, Severe (Pain Scale 7-10) Last Admin: 06/19/24 22:05 Dose: 10 ml Loperamide HCl (Loperamide Hcl 2 Mg Capsule) 2 mg PO Q4H PRN PRN Reason: Diarrhea Magnesium Hydroxide (Milk Of Magnesia 30 Ml Oral.Susp) 30 ml PO DAILY PRN PRN Reason: Constipation Last Admin: 06/04/24 05:22 Dose: 30 ml Multi-Ingred Cream/Lotion/Oil/Oint (Mineral Oil/Petrolatum,White 106 Gm Tube) 1 appl TOPICAL BID PRN; Protocol PRN Reason: Dry Skin Last Admin: 06/13/24 21:44 Dose: 1 appl Patient Own (Belbuca (75mcg Buccal Films)) 1 each PO BID [facility] Last Admin: 07/01/24 09:15 Dose: 1 each Ondansetron HCl (Ondansetron Odt 4 Mg Tab.Rapdis) 4 mg TRANSLINGU Q6H PRN PRN Reason: Nausea and Vomiting Last Admin: 06/18/24 16:17 Dose: 4 mg Polyethylene Glycol (Polyethylene Glycol 3350 17 Gm Powd.Pack) 17 gm PO BID [facility] Last Admin: 07/01/24 09:06 Dose: Not Given Quetiapine Fumarate (Quetiapine Fumarate 50 Mg Tablet) 150 mg PO BEDTIME [facility] Senna/Docusate Sodium (Sennosides/Docusate Sodium Tablet) 2 tab PO BID [facility] Last Admin: 07/01/24 09:06 Dose: Not Given Simethicone (Simethicone 80 Mg Tab.Chew) 160 mg PO BID PRN PRN Reason: bloating/gas Last Admin: 06/07/24 11:06 Dose: 160 mg Tamsulosin HCl (Tamsulosin Hcl 0.4 Mg Capsule) 0.4 mg PO BEDTIME [facility] Last Admin: 06/30/24 22:42 Dose: 0.4 mg Allergies Allergies Allergy/AdvReac Type Severity Reaction Status Date / Time azithromycin Allergy Itching Verified 06/21/24 12:35 levofloxacin [From Levaquin] Allergy Nightmare Verified 06/21/24 12:35 nitrofurantoin Allergy Itching Verified 06/21/24 12:35 [From Macrodantin] Assessment & Plan Assessment & Plan (1) MDD (major depressive disorder), recurrent episode, moderate: Status: Acute Code(s): F33.1 - Major depressive disorder, recurrent, moderate (2) PTSD (post-traumatic stress disorder): Status: Acute Code(s): F43.10 - Post-traumatic stress disorder, unspecified (3) Voiding dysfunction: Status: Acute Code(s): N39.8 - Other specified disorders of urinary system Assessment and Plan: She has no urinary concerns at this time No further antibiotics for now (4) Urinary retention: Status: Acute Code(s): R33.9 - Retention of urine, unspecified (5) Jennifer-Danlos disease: Status: Acute Code(s): Q79.60 - Jennifer-Danlos syndrome, unspecified (6) Osteogenesis imperfecta: Status: Acute Code(s): Q78.0 - Osteogenesis imperfecta (7) Myofascial pain syndrome: Status: Acute Code(s): M79.18 - Myalgia, other site Plan HPI: Patient is a 39-year-old female with history of Jennifer Danlos syndrome, osteogenesis imperfecta, myofascial pain syndrome, migraines, juvenile osteoporosis, asthma, and mood disorder with history of rectocele, vaginal mesh surgery, urinary retention requiring Van catheterization, which was recently restarted. Patient?presented?to?[facility]?on?0925?following?intentional?overdose?on?muscle?relaxers.??Patient?however?was?immediately?transferred?to?medical?floor?for?urinary?retention;?she?stabilized?there?and?was?discharged.?? She?presents?again?for?overdose On?gabapentin?and?trazodone,?Which?she?asserts?was?not?intentional (though later admits it was),?saying?she?just?wanted?to?sleep?and?get?relief?from?chronic?pain However?she?agrees?it?was?impulsive?and?unsafe.??Patient?currently?denies?any?SI.??She?reports?however?that?life?has?been?very?difficultff?pain?medications,?having?been?prescribed?opioids?consistently?for?the?past?24?years,? as?well?as?Ativan.??Patient?agrees?she?needs Help?stabilizing?and?coping. Relevant Medical/psych History: Patient was on opiates scheduled for 24 years to manage chronic medical comorbidities, resulting in hx of multiple fractures/falls and subsequent chronic pain. Pt denies any hx of substance abuse, including cannabis. She did screen positive for Fentanyl at first admission in October 2024 but is adamant she's never used it in her life and no quantitative labs done (leaving Fentanyl use inconclusive). Patients long-time physician of [address] Brigido Dietrich retired and new PCP tapered her off and discontinued all opioid pain management (also tapered and dc'd ativan). Patient reports she has been in constant pain and discomfort since then and has felt very frustrated and challenged to enjoy life, sometimes challenging her desire to live. Discussed?case?with?FILAMENT CUTTER Vianey Dunaway from pain management clinic: pt seen on 05/24. MAGDA Dunaway agrees that patients medical comorbidities and subsequent chronic pain syndrome are commonly treated with opioid pain management. She recommends either Butrans patch or preferably Belbucha films (a form of Buprenorphin and titrating it to 150mg BID). Pt is also appropriate to get other nerve blocking treatments at pain clinic who will f/u with pt. Artist Color Separation spoke with patient's PCP Dr. Rubio at [facility] Dr. Rubio reports concurs that patient has Osteogenesis imprefecta, Ehlos Danlos Pt was on opioids for 24 years with prior PCP. With [facility] she was on Oxycodine 30mg QID and Oxycontin 30mg daily. In Sep 2023 pt was admitted to [facility] for concern for overdose. Additionally, there were other concerns including that [facility] notes referenced that patient reported being on a Fentanyl patch, which this provider had never prescribed. Additionally, there was hx of patient needing refills early and a report that her mother had used some of her medications. Also patient had significant weight loss which provider was concerned might have contributed to possible accidental overdose. Because of these concerns provider, clinic repeatedly called patient to come in and discuss pain management and reportedly reached out to her from October until January however patient did not respond or come in for appointments, having missed several. Provider reports that because of lack of communication and ongoing concern that was never addressed, Provider felt it was necessary to taper patient off pain medication which was started in January; patient was also tapered off Ativan. Provider agrees that patient does have significant medical history that is commonly treated with chronic pain medication. Artist Color Separation discussed options with them and Dr. Rubio agrees that starting patient on a buprenorphine product is an acceptable alternative to oxycodone. Vraylar since depressed and hx of manic-esque IMPRESSION: Patient's?depression?and?SI?seem?to?have significant?situational component?as?she?is?No?longer?receiving?pain?management?for?severe,?chronic?pain. Patient?has?no?known?history?of?substance?abuse.??Although?she?did?screen?positive?for?fentanyl (on?10/27/2023 and?05/18/2024), No?quantitative?analysis?was?done. ?This?mean that?fentanyl?screen?could?very?well?be?a?false-positive?result (which is not uncommon). Medical?decision?should?not?be?based?on?only?a?positive?screen?for?fentanyl. Patient does struggle with SI and with her chronic?pain?And?poor?support?will?likely?continue?to?produce?mood?instability.??Treatment?plan?will?include?grant writer/team?discussion?with Outpatient?PCP?regarding?plan?for?treatment. Hospital course: 06/05: Continue current regimen and plans 06/06. Continue current plans and regimen. Loperamide was put on hold. Started on simethicone by hospitalist. No indications of GI bleeding currently. -seen by GI: C/o constipation and worsening abdominal distension. Will order CT A/P with IV/PO contrast to assess for SBO/ileus though passage of gas and small amount of stool argues against complete obstruction; however she is at risk given multiple surgeries. If no obstruction will order bowel regimen to address constipation. Continue Van, Urology following. 06/07 Patient reports that she is depressed. She apologized for not being more forthcoming earlier on in says it took her awhile to admitted to herself but she does not want to be in this world anymore... And has a plan to jump in front of a train on discharge. Patient also reports that overdose on trazodone/gabapentin was actually an intentional suicide attempt. She reports a constant deluge of self-deprecating thoughts which include that she is worthless, discussed in, and fat. 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 Despite her SI, patient does want help getting better agrees to try antidepressant medication; grant writer reviewed options and risks/side effects and patient with [facility]. Also discussed pain medication management and patient agrees with Belbuca which she has heard of; she also agrees to non opioid pain management and will follow-up with pain management Clinic here at [facility]. Discussed relationship with her mother and she does not SA think her mother struggles with drug addiction but has caught her trying to get into her room, which patient keeps locked, looking for her medications which she has taken in the past. Patient said she reported this to her PCP. Patient does have history of being prescribed fentanyl patch however she did not like them and weaned herself off of them; set had some left over 06/08 Patient remains depressed with suicidal thinking however is trying to be hopeful and has tolerated Vraylar and says will continue, with increased dose; grateful for help getting Belbuca through prior authorization. -Discussed case with urology who recommends remaining with indwelling Van since failed voiding attempt on 06/03; will continue to follow -pt reported and nurse corroborated that Van bag containing urine was blood-tinged; discussed with Urologist, deemed likely micro trauma, and to keep van in place; recently failed voiding trial on 06/03 06/09 Patient reports she remains depressed, with SI. Patient also reports she had a very difficult time sleeping last night feeling very upset following a conversation she had on the phone with her mother. Patient expressed to her mother she is feeling hurt that her mom has not visited or called throughout her admission, even on patient's birthday; she says her mom was on apologetic. Patient also challenged her mom regarding her mom's past comment that patient could burn in hell with her father (who 2 years ago); mom remained unapologetic. Patient tells grant writer she has no idea why her mom said this other than that her mom is crazy... Subsequently patient reports that throughout the night, she had racing thoughts and no sleep. Discussed medications and patient and pt is eager to try Belbuca Films for pain management, available today dc'd gabapentin; pt said has never helped for pain or anxiety Adding clonidine at bedtime to help w/ sleep, anxiety 06/10 patient reports that Belbuca is helping with pain Patient remains very depressed and continues to have suicidal thoughts, saying she wants to end her life when she leaves the hospital. Patient Says I do not understand myself.. And laments she is gone most of her life without any suicidal ideation and only started this past September. Patient shared about some other reasons that it might be occurring and agrees that she still mourning the loss of her father who was her confidante; dealing with chronic pain having been off pain medications for several months and the ongoing struggles in her relationship with her mother and brother whom she feels are bullying; trying to come to terms with the fact that her mother simply isn't going to be the kind of mother she wishes she had. Patient agrees to medication management. 06/13 still very depressed with SI. Sleeping better however which is helpful and pain medications are also helpful. Patient agrees to increasing Vraylar; agrees to behavioral activation and attending groups. Despite ongoing thoughts about self-harm and ending her life when she is discharge, patient is also future oriented and says she would like to find a new place to live separate from her mother and brother. Asks for help going about that. 06/14 pt remains depressed, positive for SI with a plan but also future oriented talking about changing her living situation. Pt is engaged in treatment, trying to process her suicidal feelings and trying to be hopeful it will resolve. Agrees to adding Wellbutrin. -will likely add Wellbutrin; however, will probably keep Vraylar (maybe at lower dose) since pt has hx of manic-esque episodes (thought not formally diagnosed with bipolar as episode had several contributory factors) 06/15 remains depressed but processing feelings, doing worksheets, talking about her mother. Pt very anxious. -may increase wellbutrin for depression -considered starting Clonazepam 0.5mg BID; pt used to be on as much as 5mg of ativan daily; was weened off so hesitant to restart benzo's; 06/17 increase Wellbutrin 06/20 Over the weekend, patient assessed for infection, starting antibiotic; concerned that indwelling Van catheter is not sustainable; urology consulted and plan was for suprapubic catheter insertion for today. Patient however did not get fully informed of this and was upset to learn that a procedure was planned. She was however able to discuss this at length with grant writer and urology team and agreed to proceed. 06/21 Dr. Niño decided better to do a cystoscopy 1st and then decide whether not suprapubic catheter verse bladder stimulator; patient consents Seen by infectious disease: She has no urinary concerns at this time..No further antibiotics for now 06/22 Patient discussed conversation she had with her brother that was reassuring. Patient felt understood by him and supported which has lifted her mood. She feels that although she still depressed perhaps some of the depression is lifting and she starting to feel that there is hope of change in her situation. Patient remains very anxious. Earlier she had said she did not want to get back on benzodiazepines, having been on Ativan 5 mg for decades, weaned off only about a year ago. However given patient's struggles with anxiety and the fact that benzos have helped her in the past, discussed restarting a benzodiazepine, this time clonazepam 0.5 mg b.i.d.; grant writer discussed at length risks for addiction and the constant desire to have more. Patient said she very much does not want that to happen and feels that she will be able to minimize her use 06/23 Depressed, with intermittent SI. very anxious and with despairing thoughts has upcoming anniversary of her father's which is this July 03; will try to make it remembrance day and change the perspective. -Feeling better about catheter and plan; grant writer discussed with urology who met with patient and plan is for July 05 to move forward with stimulator -patient attending groups and engaged in treatment 06/24 a little better; mood up and down and still intermittent SI but patient is working on being hopeful employee numerous coping skills. Agrees to increase Wellbutrin 06/25 Patient continues to report depressed mood; told nurse that she remains purging daily and still plans to attempt suicide when she leaves. However on the unit, she seems more relaxed. Patient shared with grant writer her plan to remember her father on the anniversary of his . 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 Currently she is eating enough. As this is a chronic problem that that has gone on for over 20 years, and with which patient has been able to cope with on her own, without needing hospitalizations or [place] admissions since teenage years, grant writer does not expect that it will resolve during this inpatient stay and does not believe that it needs to. 06/27 very tearful sad; suicidal; pushing self to be around others, groups -talked about eating struggles, purging; trying not to 06/28 do not think that medication management will change patients depression at this time. Rather she needs continued time to process her feelings of despair, grief about her fathers , hx of trauma, feeling her future is bleak. -grant writer engaged in psychodynamic psychotherapy 11/7: feels clonidine and klonopin helpful for anxiety. asking for pain med change; deferred for return of attending, does not appear in pain. Q5s for SI/van. staff auditor feel pt is not substantially worse than her recent inpatient baseline, but perhaps looking a bit better today than yesterday. 07/01: appears behaving as per usual for inpatient context. increase seroquel to 150 QHS for insomnia and appetite stimulation. continue current mgmt otherwise. PLAN: CV? Q 5s due to?indwelling?Van Continue clonazepam 0.5 mg b.i.d. Increase to WEllbutrin XL 450 mg for continued depression (pt adamant about not starting anti-depressant with risk of wt gain) Continue Vraylar 4.5 mg daily (Vraylar chosen since patient has depression but also history of manic type behaviors, possibly manic episode with some delusions and AH) Continue Belbuca 75mcg films BID for pain management (history of fentanyl patch, morphine, oxycodone, OxyContin) clonidine prn Continue Flagyl 500 q.12 hours x7 days placed for bacterial vaginosis; id examined patient and reports no need for any additional antibiotic regimen Urology appointment: July 05 for placement of bladder stimulator (With Dr. Leiva) Cystoscopy Findings: Bladder wall thickening, no vaginal or bladder mesh, no evidence outlet obstruction Hospitalist note 06/18 Receiving Pyridium UA 06/18 positive for 4+ bacteria, greater than 50 WBC, large leukocyte esterase positive nitrates Urine culture pending Urine culture 05/25 and 06/01 grew Raissa glabrata patient received Diflucan 200 mg daily from 06/01 through 06/15 Bacterial vaginosis PCR positive Raissa grew size/glabrata detected Due to persistent symptoms of vaginal pain/discharge recommend Infectious Disease consultation Follow urine culture. Patient educated on: diagnosis, medication risk/benefits and medical condition Reason for continued inpatient stay Substantial Risk for: harm to self and inability to function Time Spent With Patient Time: Total time managing care of this patient today __25__ minutes.
[2024-07-01 15:15] VITALS: BP 130/91
[2024-07-01 20:00] VITALS: BP 114/89; PULSE 94; RESP 18; TEMP 36.5; O2SAT 98
[2024-07-01] MEDS: QUEtiapine Fumarate 50 MG TABLET 150 MG PO (21:13)
[2024-07-01] MEDS: Tamsulosin HCL 0.4 MG CAPSULE PO (21:13)
[2024-07-02 03:28] VITALS: BP 103/81
[2024-07-02] MEDS: cloNIDine HCL 0.1 MG TABLET PO ×4 (03:28→21:57)
[2024-07-02] MEDS: hydrOXYzine HCL 25 MG TABLET PO (03:28)
[2024-07-02 08:00] VITALS: BP 131/84; PULSE 87; RESP 16; TEMP 36.6; O2SAT 96
[2024-07-02] MEDS: Cariprazine HCl 1.5 MG CAPSULE 4.5 MG PO (09:08)
[2024-07-02] MEDS: clonazePAM 0.5 MG TABLET PO ×2 (09:09→17:46)
[2024-07-02] MEDS: buPROPion HCl XL 150 MG TAB.ER.24H 450 MG PO (09:09)
[2024-07-02] MEDS: Ascorbic Acid 500 MG TABLET 1000 MG PO (09:09)
[2024-07-02] MEDS: Sennosides/Docusate Sodium TABLET 2 TAB PO ×2 (09:09→21:56)
[2024-07-02] MEDS: Lidocaine 4 % Patch ADH..PATCH 1 PATCH TRANSDERMA (09:10)
[2024-07-02] MEDS: BUPRENORPHINE 75 MCG 1 EACH PO ×2 (09:10→21:57)
[2024-07-02 11:02] LABS: Alanine Aminotransferase 14 U/L (0-31); Albumin Level 4.6 g/dL (3.5-5.0); Alkaline Phosphatase 55 U/L (39-117); Anion Gap 14 (12-20); Aspartate Amino Transferase 20 U/L (5-31); Bilirubin Total 0.5 mg/dL (0.0-1.0); Blood Urea Nitrogen 8 mg/dL (9-16); Calcium 10.3 mg/dL (8.4-10.2); Carbon Dioxide 25 mmol/L (22-29); Chloride 106 mmol/L (96-108); Creatinine Clr Calc Pharmacy 57.3; Estimated Glomerular Filt Rate > 60; Glucose Random 126 mg/dL (60-115); Potassium 3.8 mmol/L (3.3-5.1); Sodium 141 mmol/L (135-145); Total Protein 7.4 g/dL (6.5-8.0)
--- NOTE | 2024-07-02 11:24 | P.PNPSI_ITS ---
Subjective Subjective Date of Service: 07/02/24 Reason For Visit: Sa Interim History: Patient reports severe depression and hopelessness and helplessness about her situation. She reports she is chronically ill, she is discouraged, sad. She is also sad because it is the 2nd anniversary of her father's . She says I just don't want to be here. I am going to starve myself to . She acknowledges her mood is better than when she came in to the hospital. Says Bryson has been helpful. VSS Medication Compliance: Yes Review of Systems Review of Systems as noted in HPI Yes all other systems are reviewed and are negative Mental Status Exam Mental Status Exam Narrative: Pt is alert and oriented; behavior is cooperative; cachectic; dressed in hospital attire; adequate hygiene; mood is described as depressed and affect congruent; eye contact appropriate; Speech is a normal rate, volume and prosody; no psychomotor retardation present; thought process is organized and goal directed; Thought content is on suicidality and desire to ; otherwise pertinent to relevant topics and without any delusional content, paranoid ideations or grandiosity; increased SI thoughts; no HI expressed. There is no evidence of perceptual disturbance. Patients insight and judgment impaired Patient Appearance: Appropriate Patient Orientation: Person, Place, Time and Situation Level of Consciousness: Alert Patient Behavior: Talkative and Good Eye Contact Mood Description: Depressed and Apprehensive Affect Description: Apprehensive Ability to Follow Directions: Good Speech Pattern: Spontaneous Speech Diagnostics Vital Signs (24Hr): Vital Signs - 24 hr 07/01/24 15:15 07/01/24 20:00 07/02/24 03:28 Temperature 97.7 F Pulse Rate 94 Respiratory Rate 18 Blood Pressure 130/91 H 114/89 103/81 Pulse Oximetry 98 Oxygen Delivery Method Room Air 07/02/24 08:00 Temperature 97.8 F Pulse Rate 87 Respiratory Rate 16 Blood Pressure 131/84 Pulse Oximetry 96 Oxygen Delivery Method Room Air BMI result Body Mass Index 17.2 Labs 06/06/24 08:20 07/02/24 10:41 Labs: Laboratory Results - last 48 hr 07/02/24 10:41 Hold Purple Top SEE NOTE Sodium 141 Potassium 3.8 Chloride 106 Carbon Dioxide 25 Anion Gap 14 BUN 8 L Creatinine 0.83 Estim Creat Clear Calc 57.3 Estimated GFR > 60 Random Glucose 126 H Calcium 10.3 H D Total Bilirubin 0.5 AST 20 ALT 14 Alkaline Phosphatase 55 Total Protein 7.4 Albumin 4.6 Hold Yellow Top See Note Imaging Radiology Impressions: ITS Impressions KUB X-Ray 06/03/24 19:55 IMPRESSION: Increased amount of stool in the colon suggesting constipation. Please correlate with clinical presentation. Electronically signed by: Oneida Pham MD 06/04/2024 07:31 AM EDT RP Renal Ultrasound 06/04/24 14:49 IMPRESSION: No ultrasound evidence of renal obstruction or hydronephrosis. Limited visualization of the left kidney obscured by bowel gas, exam otherwise unremarkable. Electronically signed by: Oneida Pham MD 06/05/2024 12:56 PM EDT RP Abdomen/Pelvis CT 06/04/24 18:33 IMPRESSION: Severe constipation. Otherwise unremarkable CT abdomen and pelvis. Fleischner guidelines were followed. Electronically signed by: Deyvi Collins MD 06/04/2024 07:05 PM EDT RP Ribs X-Ray 06/19/24 10:15 IMPRESSION: 1. Mild degenerative changes of the left shoulder. 2. No left-sided rib fracture. Electronically signed by: Orlando Lindsey MD 06/19/2024 10:50 AM EDT RP Shoulder X-Ray 06/19/24 10:15 IMPRESSION: 1. Mild degenerative changes of the left shoulder. 2. No left-sided rib fracture. Electronically signed by: Orlando Lindsey MD 06/19/2024 10:50 AM EDT RP Medications Medications Current Medications Acetaminophen (Acetaminophen 325 Mg Tablet) 650 mg PO Q6H PRN PRN Reason: Headache/Pain Mild Scale (1-3) Last Admin: 06/22/24 03:24 Dose: 650 mg Al Hydroxide/Mg Hydroxide (Magnesium Hydrox/Alum Hydrox 30 Ml Oral.Susp) 30 ml PO Q6H PRN PRN Reason: Heartburn/Nausea Albuterol Sulfate (Albuterol Sulfate 90 Mcg 8 Gm Inhaler) 2 puff INHALE QID PRN PRN Reason: Shortness Of Breath Ascorbic Acid (Ascorbic Acid 500 Mg Tablet) 1,000 mg PO DAILY ELMO Last Admin: 07/02/24 09:09 Dose: 1,000 mg Benzocaine (Throat Lozenge, Medicated Lozenge) 1 lozenge MUCOUS MEM Q2H PRN PRN Reason: Sore Throat Last Admin: 06/30/24 22:42 Dose: 1 lozenge Bisacodyl (Bisacodyl 5 Mg Tablet.Dr) 10 mg PO BEDTIME ELMO Last Admin: 07/01/24 21:21 Dose: Not Given Bupropion HCl (Bupropion Hcl Xl 150 Mg Tab.Er.24h) 450 mg PO DAILY EL[facility] Last Admin: 07/02/24 09:09 Dose: 450 mg Cariprazine (Cariprazine Hcl 1.5 Mg Capsule) 4.5 mg PO DAILY [facility] Last Admin: 07/02/24 09:08 Dose: 4.5 mg Clonazepam (Clonazepam 0.5 Mg Tablet) 0.5 mg PO BID@0900,1700 EL[facility] Last Admin: 07/02/24 09:09 Dose: 0.5 mg Clonidine HCl (Clonidine Hcl 0.1 Mg Tablet) 0.1 mg PO BEDTIME [facility]; Protocol Last Admin: 07/01/24 21:13 Dose: 0.1 mg Clonidine HCl (Clonidine Hcl 0.1 Mg Tablet) 0.1 mg PO Q4H PRN; Protocol PRN Reason: anxiety Last Admin: 07/02/24 03:28 Dose: 0.1 mg Hydroxyzine HCl (Hydroxyzine Hcl 25 Mg Tablet) 25 mg PO Q6H PRN PRN Reason: Anxiety Last Admin: 07/02/24 03:28 Dose: 25 mg Ibuprofen (Ibuprofen 600 Mg Tablet) 600 mg PO Q6H PRN PRN Reason: Pain, Severe (Pain Scale 7-10) Last Admin: 06/29/24 16:09 Dose: 600 mg Lactulose (Lactulose 20 Gm/30 Ml Solution) 40 gm PO DAILY [facility] Last Admin: 07/02/24 10:43 Dose: Not Given Lidocaine (Lidocaine 4 % Patch Adh..Patch) 1 patch TRANSDERMA DAILY [facility]; Protocol Last Admin: 07/02/24 09:10 Dose: 1 patch Lidocaine HCl (Lidocaine Hcl 2 % Urojet 10 Ml Jel.Pf.Luis) 10 ml TOPICAL BID PRN PRN Reason: Pain, Severe (Pain Scale 7-10) Last Admin: 06/19/24 22:05 Dose: 10 ml Loperamide HCl (Loperamide Hcl 2 Mg Capsule) 2 mg PO Q4H PRN PRN Reason: Diarrhea Magnesium Hydroxide (Milk Of Magnesia 30 Ml Oral.Susp) 30 ml PO DAILY PRN PRN Reason: Constipation Last Admin: 06/04/24 05:22 Dose: 30 ml Multi-Ingred Cream/Lotion/Oil/Oint (Mineral Oil/Petrolatum,White 106 Gm Tube) 1 appl TOPICAL BID PRN; Protocol PRN Reason: Dry Skin Last Admin: 06/13/24 21:44 Dose: 1 appl Patient Own (Belbuca (75mcg Buccal Films)) 1 each PO BID ELMO Last Admin: 07/02/24 09:10 Dose: 1 each Ondansetron HCl (Ondansetron Odt 4 Mg Tab.Rapdis) 4 mg TRANSLINGU Q6H PRN PRN Reason: Nausea and Vomiting Last Admin: 06/18/24 16:17 Dose: 4 mg Polyethylene Glycol (Polyethylene Glycol 3350 17 Gm Powd.Pack) 17 gm PO BID [facility] Last Admin: 07/02/24 10:43 Dose: Not Given Quetiapine Fumarate (Quetiapine Fumarate 50 Mg Tablet) 150 mg PO BEDTIME [facility] Last Admin: 07/01/24 21:13 Dose: 150 mg Senna/Docusate Sodium (Sennosides/Docusate Sodium Tablet) 2 tab PO BID [facility] Last Admin: 07/02/24 09:09 Dose: 2 tab Simethicone (Simethicone 80 Mg Tab.Chew) 160 mg PO BID PRN PRN Reason: bloating/gas Last Admin: 06/07/24 11:06 Dose: 160 mg Tamsulosin HCl (Tamsulosin Hcl 0.4 Mg Capsule) 0.4 mg PO BEDTIME [facility] Last Admin: 07/01/24 21:13 Dose: 0.4 mg Allergies Allergies Allergy/AdvReac Type Severity Reaction Status Date / Time azithromycin Allergy Itching Verified 06/21/24 12:35 levofloxacin [From Levaquin] Allergy Nightmare Verified 06/21/24 12:35 nitrofurantoin Allergy Itching Verified 06/21/24 12:35 [From Macrodantin] Assessment & Plan Assessment & Plan (1) MDD (major depressive disorder), recurrent episode, moderate: Status: Acute Code(s): F33.1 - Major depressive disorder, recurrent, moderate (2) PTSD (post-traumatic stress disorder): Status: Acute Code(s): F43.10 - Post-traumatic stress disorder, unspecified (3) Voiding dysfunction: Status: Acute Code(s): N39.8 - Other specified disorders of urinary system Assessment and Plan: She has no urinary concerns at this time No further antibiotics for now (4) Urinary retention: Status: Acute Code(s): R33.9 - Retention of urine, unspecified (5) Jennifer-Danlos disease: Status: Acute Code(s): Q79.60 - Jennifer-Danlos syndrome, unspecified (6) Osteogenesis imperfecta: Status: Acute Code(s): Q78.0 - Osteogenesis imperfecta (7) Myofascial pain syndrome: Status: Acute Code(s): M79.18 - Myalgia, other site Plan HPI: Patient is a 39-year-old female with history of Jennifer Danlos syndrome, osteogenesis imperfecta, myofascial pain syndrome, migraines, juvenile osteoporosis, asthma, and mood disorder with history of rectocele, vaginal mesh surgery, urinary retention requiring Van catheterization, which was recently restarted. P atient?presented?to?[facility]?on?924?following?intentional?overdose?on?muscle?rel axers.??Patient?lujan mary?was?immediately?transferred?to?medical?floor?for?urinary?retention;?she?stab ilized?there?and?was?discharged.?? She?presents?again?for?overdose On?gabapentin?and?trazodone,?Which?she?asserts?was?not?intentional (though later admits it was),?saying?she?just?wanted?to?sleep?and?get?relief?from?chronic?pain H owever?she?agrees?it?was?impulsive?and?unsafe.??Patient?currently?denies?any?SI. ??She?reports?howeve r?that?life?has?been?very?difficultff?pain?medications,?having?been?prescribed?o pioids?consistently?for?the?past?24?years,? as?well?as?Ativan.??Patient?agrees?she?needs Help?stabilizing?and?coping. Relevant Medical/psych History: Patient was on opiates scheduled for 24 years to manage chronic medical comorbidities, resulting in hx of multiple fractures/falls and subsequent chronic pain. Pt denies any hx of substance abuse, including cannabis. She did screen positive for Fentanyl at first admission in October 2024 but is adamant she's never used it in her life and no quantitative labs done (leaving Fentanyl use inconclusive). Patients long-time physician of [address] Brigido Dietrich retired and new PCP tapered her off and discontinued all opioid pain management (also tapered and dc'd ativan). Patient reports she has been in constant pain and discomfort since then and has felt very frustrated and challenged to enjoy life, sometimes challenging her desire to live. Discussed?case?with?PIPE COVERING MOLDER Vianey Dunaway from pain management clinic: pt seen on 05/24. PIPE COVERING MOLDER Gume agrees that patients medical comorbidities and subsequent chronic pain syndrome are commonly treated with opioid pain management. She recommends either Butrans patch or preferably Belbucha films (a form of Buprenorphin and titrating it to 150mg BID). Pt is also appropriate to get other nerve blocking treatments at pain clinic who will f/u with pt. Lime Boiler spoke with patient's PCP Dr. Rubio at [facility] Dr. Rubio reports concurs that patient has Osteogenesis imprefecta, Ehlos Danlos Pt was on opioids for 24 years with prior PCP. With [facility] she was on Oxycodine 30mg QID and Oxycontin 30mg daily. In Sep 2023 pt was admitted to [facility] for concern for overdose. Additionally, there were other concerns including that [facility] notes referenced that patient reported being on a Fentanyl patch, which this provider had never prescribed. Additionally, there was hx of patient needing refills early and a report that her mother had used some of her medications. Also patient had significant weight loss which provider was concerned might have contributed to possible accidental overdose. Because of these concerns provider, clinic repeatedly called patient to come in and discuss pain management and reportedly reached out to her from October until January however patient did not respond or come in for appointments, having missed several. Provider reports that because of lack of communication and ongoing concern that was never addressed, Provider felt it was necessary to taper patient off pain medication which was started in January; patient was also tapered off Ativan. Provider agrees that patient does have significant medical history that is commonly treated with chronic pain medication. Lime Boiler discussed options with them and Dr. Rubio agrees that starting patient on a buprenorphine product is an acceptable alternative to oxycodone. Vraylar since depressed and hx of manic-esque IMPRESSION: Patient's?depression?and?SI?seem?to?have significant?situational component?as?she?is?No?longer?receiving?pain?management?for?severe,?chronic?pain . P atient?has?no?known?history?of?substance?abuse.??Although?she?did?screen?positiv e?for?fentanyl (on?10/27/2023 and?05/18/2024), No?quantitative?analysis?was?done. ?This?mean that?fentanyl?screen?could?very?well?be?a?false-positive?result (which is not uncommon). Medical?decision?should?not?be?based?on?only?a?positive?screen?for?fentanyl. Patient does struggle with SI and with her chronic?pain?And?poor?support?will?likely?continue?to?produce?mood?instability.? ?Treatment?plan?will?include?video game script writer/team?discussion?with Outpatient?PCP?regarding?plan?for?treatment. Hospital course: 06/05: Continue current regimen and plans 06/06. Continue current plans and regimen. Loperamide was put on hold. Started on simethicone by hospitalist. No indications of GI bleeding currently. -seen by GI: C/o constipation and worsening abdominal distension. Will order CT A/P with IV/PO contrast to assess for SBO/ileus though passage of gas and small amount of stool argues against complete obstruction; however she is at risk given multiple surgeries. If no obstruction will order bowel regimen to address constipation. Continue Van, Urology following. 06/07 Patient reports that she is depressed. She apologized for not being more forthcoming earlier on in says it took her awhile to admitted to herself but she does not want to be in this world anymore... And has a plan to jump in front of a train on discharge. Patient also reports that overdose on trazodone/gabapentin was actually an intentional suicide attempt. She reports a constant deluge of self-deprecating thoughts which include that she is worthless, discussed in, and fat. Lime Boiler reviewed patient's history of anorexia and patient reports she sees herself as fat every day and eats very little (history of anorexia since 14 years old; was at brought up oral for a month with a feeding tube; she understands that this is a significant cause of her chronic constipation). Despite her SI, patient does want help getting better agrees to try antidepressant medication; video game script writer reviewed options and risks/side effects and patient with Vraylar. Also discussed pain medication management and patient agrees with Belbuca which she has heard of; she also agrees to non opioid pain management and will follow-up with pain management Clinic here at [facility]. Discussed relationship with her mother and she does not SA think her mother struggles with drug addiction but has caught her trying to get into her room, which patient keeps locked, looking for her medications which she has taken in the past. Patient said she reported this to her PCP. Patient does have history of being prescribed fentanyl patch however she did not like them and weaned herself off of them; set had some left over 06/08 Patient remains depressed with suicidal thinking however is trying to be hopeful and has tolerated Vraylar and says will continue, with increased dose; grateful for help getting Belbuca through prior authorization. -Discussed case with urology who recommends remaining with indwelling Van since failed voiding attempt on 06/03; will continue to follow -pt reported and nurse corroborated that Van bag containing urine was blood- tinged; discussed with Urologist, deemed likely micro trauma, and to keep van in place; recently failed voiding trial on 06/03 06/09 Patient reports she remains depressed, with SI. Patient also reports she had a very difficult time sleeping last night feeling very upset following a conversation she had on the phone with her mother. Patient expressed to her mother she is feeling hurt that her mom has not visited or called throughout her admission, even on patient's birthday; she says her mom was on apologetic. Patient also challenged her mom regarding her mom's past comment that patient could burn in hell with her father (who 2 years ago); mom remained unapologetic. Patient tells video game script writer she has no idea why her mom said this other than that her mom is crazy... Subsequently patient reports that throughout the night, she had racing thoughts and no sleep. Discussed medications and patient and pt is eager to try Belbuca Films for pain management, available today dc'd gabapentin; pt said has never helped for pain or anxiety Adding clonidine at bedtime to help w/ sleep, anxiety 06/10 patient reports that Belbuca is helping with pain Patient remains very depressed and continues to have suicidal thoughts, saying she wants to end her life when she leaves the hospital. Patient Says I do not understand myself.. And laments she is gone most of her life without any suicidal ideation and only started this past September. Patient shared about some other reasons that it might be occurring and agrees that she still mourning the loss of her father who was her confidante; dealing with chronic pain having been off pain medications for several months and the ongoing struggles in her relationship with her mother and brother whom she feels are bullying; trying to come to terms with the fact that her mother simply isn't going to be the kind of mother she wishes she had. Patient agrees to medication management. 06/13 still very depressed with SI. Sleeping better however which is helpful and pain medications are also helpful. Patient agrees to increasing Vraylar; agrees to behavioral activation and attending groups. Despite ongoing thoughts about self-harm and ending her life when she is discharge, patient is also future oriented and says she would like to find a new place to live separate from her mother and brother. Asks for help going about that. 06/14 pt remains depressed, positive for SI with a plan but also future oriented talking about changing her living situation. Pt is engaged in treatment, trying to process her suicidal feelings and trying to be hopeful it will resolve. Agrees to adding Wellbutrin. -will likely add Wellbutrin; however, will probably keep Vraylar (maybe at lower dose) since pt has hx of manic-esque episodes (thought not formally diagnosed with bipolar as episode had several contributory factors) 06/15 remains depressed but processing feelings, doing worksheets, talking about her mother. Pt very anxious. -may increase wellbutrin for depression -considered starting Clonazepam 0.5mg BID; pt used to be on as much as 5mg of ativan daily; was weened off so hesitant to restart benzo's; 06/17 increase Wellbutrin 06/20 Over the weekend, patient assessed for infection, starting antibiotic; concerned that indwelling Van catheter is not sustainable; urology consulted and plan was for suprapubic catheter insertion for today. Patient however did not get fully informed of this and was upset to learn that a procedure was planned. She was however able to discuss this at length with video game script writer and urology team and agreed to proceed. 06/21 Dr. Niño decided better to do a cystoscopy 1st and then decide whether not suprapubic catheter verse bladder stimulator; patient consents Seen by infectious disease: She has no urinary concerns at this time..No further antibiotics for now 06/22 Patient discussed conversation she had with her brother that was reassuring. Patient felt understood by him and supported which has lifted her mood. She feels that although she still depressed perhaps some of the depression is lifting and she starting to feel that there is hope of change in her situation. Patient remains very anxious. Earlier she had said she did not want to get back on benzodiazepines, having been on Ativan 5 mg for decades, weaned off only about a year ago. However given patient's struggles with anxiety and the fact that benzos have helped her in the past, discussed restarting a benzodiazepine, this time clonazepam 0.5 mg b.i.d.; video game script writer discussed at length risks for addiction and the constant desire to have more. Patient said she very much does not want that to happen and feels that she will be able to minimize her use 06/23 Depressed, with intermittent SI. very anxious and with despairing thoughts has upcoming anniversary of her father's which is this July 03; will try to make it remembrance day and change the perspective. -Feeling better about catheter and plan; video game script writer discussed with urology who met with patient and plan is for July 05 to move forward with stimulator -patient attending groups and engaged in treatment 06/24 a little better; mood up and down and still intermittent SI but patient is working on being hopeful employee numerous coping skills. Agrees to increase Wellbutrin 06/25 Patient continues to report depressed mood; told nurse that she remains purging daily and still plans to attempt suicide when she leaves. However on the unit, she seems more relaxed. Patient shared with video game script writer her plan to remember her father on the anniversary of his . 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 Currently she is eating enough. As this is a chronic problem that that has gone on for over 20 years, and with which patient has been able to cope with on her own, without needing hospitalizations or [facility] admissions since teenage years, video game script writer does not expect that it will resolve during this inpatient stay and does not believe that it needs to. 06/27 very tearful sad; suicidal; pushing self to be around others, groups -talked about eating struggles, purging; trying not to 06/28 do not think that medication management will change patients depression at this time. Rather she needs continued time to process her feelings of despair, grief about her fathers , hx of trauma, feeling her future is bleak. -video game script writer engaged in psychodynamic psychotherapy 06/30: feels clonidine and klonopin helpful for anxiety. asking for pain med change; deferred for return of attending, does not appear in pain. Q5s for SI/van. junior staff accountant feel pt is not substantially worse than her recent inpatient baseline, but perhaps looking a bit better today than yesterday. 07/01: appears behaving as per usual for inpatient context. increase seroquel to 150 QHS for insomnia and appetite stimulation. continue current mgmt otherwise. 07/02: Continues depressed with suicidal thoughts. Says she wants to starve self. VSS. Check metabolic panel. PLAN: CV? Q 5s due to?indwelling?Van Continue clonazepam 0.5 mg b.i.d. Increase to WEllbutrin XL 450 mg for continued depression (pt adamant about not starting anti-depressant with risk of wt gain) Continue Vraylar 4.5 mg daily (Vraylar chosen since patient has depression but also history of manic type behaviors, possibly manic episode with some delusions and AH) Continue Belbuca 75mcg films BID for pain management (history of fentanyl patch, morphine, oxycodone, OxyContin) clonidine prn Continue Flagyl 500 q.12 hours x7 days placed for bacterial vaginosis; id examined patient and reports no need for any additional antibiotic regimen Urology appointment: July 05 for placement of bladder stimulator (With Dr. Leiva) Cystoscopy Findings: Bladder wall thickening, no vaginal or bladder mesh, no evidence outlet obstruction Hospitalist note 06/18 Receiving Pyridium UA 06/18 positive for 4+ bacteria, greater than 50 WBC, large leukocyte esterase positive nitrates Urine culture pending Urine culture 05/25 and 06/01 grew Raissa glabrata patient received Diflucan 200 mg daily from 06/01 through 06/15 Bacterial vaginosis PCR positive Raissa grew size/glabrata detected Due to persistent symptoms of vaginal pain/discharge recommend Infectious Disease consultation Follow urine culture. Patient educated on: diagnosis, medication risk/benefits and medical condition Reason for continued inpatient stay Substantial Risk for: harm to self, inability to function, rapid decompensation and med/psych decompensation Time Spent With Patient Time: Total time managing care of this patient today ____ minutes.
[2024-07-02 13:59] VITALS: BP 132/78
[2024-07-02 19:22] VITALS: BP 132/79
[2024-07-02 20:00] VITALS: BP 135/87; PULSE 105; RESP 16; TEMP 37; O2SAT 97
[2024-07-02] MEDS: QUEtiapine Fumarate 50 MG TABLET 150 MG PO (21:56)
[2024-07-02] MEDS: Tamsulosin HCL 0.4 MG CAPSULE PO (21:57)
[2024-07-03] VITALS: BP 128/80
[2024-07-03] MEDS: hydrOXYzine HCL 25 MG TABLET PO (00:01)
[2024-07-03 08:00] VITALS: BP 123/66; PULSE 78; RESP 16; TEMP 36.3; O2SAT 96
[2024-07-03] MEDS: Cariprazine HCl 1.5 MG CAPSULE 4.5 MG PO (09:42)
[2024-07-03 09:43] VITALS: BP 123/66
[2024-07-03] MEDS: Sennosides/Docusate Sodium TABLET 2 TAB PO ×2 (09:43→22:10)
[2024-07-03] MEDS: Ascorbic Acid 500 MG TABLET 1000 MG PO (09:43)
[2024-07-03] MEDS: cloNIDine HCL 0.1 MG TABLET PO ×4 (09:43→22:10)
[2024-07-03] MEDS: buPROPion HCl XL 150 MG TAB.ER.24H 450 MG PO (09:43)
[2024-07-03] MEDS: BUPRENORPHINE 75 MCG 1 EACH PO ×2 (09:44→22:11)
[2024-07-03] MEDS: clonazePAM 0.5 MG TABLET PO ×2 (09:44→17:24)
[2024-07-03] MEDS: Ibuprofen 600 MG TABLET PO (09:49)
--- NOTE | 2024-07-03 11:06 | P.PNPSI_ITS ---
Subjective Subjective Date of Service: 07/03/24 Reason For Visit: Sa Interim History: Patient remains depressed. Anniversary of her father's is today. Exercise Science Instructor came in and they had a service for him. She felt better after. She remains with wish. I just don't want to be here. She has been purging. (Room was changed as her roommate peer has anorexia nervosa and purges.) She ate today but choked on a big piece of chicken she was eating. Remains helpless, hopeless and pessimistic. Review of Systems Review of Systems as noted in HPI Yes all other systems are reviewed and are negative Mental Status Exam Mental Status Exam Narrative: Pt is alert and oriented; behavior is cooperative; cachectic; dressed in hospital attire; adequate hygiene; mood is described as depressed and affect congruent; eye contact appropriate; Speech is a normal rate, volume and prosody; no psychomotor retardation present; thought process is organized and goal directed; Thought content is on suicidality and desire to ; otherwise pertinent to relevant topics and without any delusional content, paranoid ideations or grandiosity; increased SI thoughts; no HI expressed. There is no evidence of perceptual disturbance. Patients insight and judgment impaired Patient Appearance: Appropriate Patient Orientation: Person, Place, Time and Situation Level of Consciousness: Alert Patient Behavior: Talkative and Good Eye Contact Mood Description: Depressed and Apprehensive Affect Description: Apprehensive Ability to Follow Directions: Good Speech Pattern: Spontaneous Speech Diagnostics Vital Signs (24Hr): Vital Signs - 24 hr 07/02/24 13:59 07/02/24 19:22 07/02/24 20:00 Temperature 98.6 F Pulse Rate 105 H Respiratory Rate 16 Blood Pressure 132/78 132/79 135/87 Pulse Oximetry 97 Oxygen Delivery Method Room Air 07/03/24 00:00 07/03/24 09:43 Temperature Pulse Rate Respiratory Rate Blood Pressure 128/80 123/66 Pulse Oximetry Oxygen Delivery Method BMI result Body Mass Index 17.2 Labs 06/06/24 08:20 07/02/24 10:41 Labs: Laboratory Results - last 48 hr 07/02/24 10:41 Hold Purple Top SEE NOTE Sodium 141 Potassium 3.8 Chloride 106 Carbon Dioxide 25 Anion Gap 14 BUN 8 L Creatinine 0.83 Estim Creat Clear Calc 57.3 Estimated GFR > 60 Random Glucose 126 H Calcium 10.3 H D Total Bilirubin 0.5 AST 20 ALT 14 Alkaline Phosphatase 55 Total Protein 7.4 Albumin 4.6 Hold Yellow Top See Note Imaging Radiology Impressions: ITS Impressions KUB X-Ray 06/03/24 19:55 IMPRESSION: Increased amount of stool in the colon suggesting constipation. Please correlate with clinical presentation. Electronically signed by: Oneida Pham MD 06/04/2024 07:31 AM EDT RP Renal Ultrasound 06/04/24 14:49 IMPRESSION: No ultrasound evidence of renal obstruction or hydronephrosis. Limited visualization of the left kidney obscured by bowel gas, exam otherwise unremarkable. Electronically signed by: Oneida Pham MD 06/05/2024 12:56 PM EDT RP Abdomen/Pelvis CT 06/04/24 18:33 IMPRESSION: Severe constipation. Otherwise unremarkable CT abdomen and pelvis. Fleischner guidelines were followed. Electronically signed by: Deyvi Collins MD 06/04/2024 07:05 PM EDT RP Ribs X-Ray 06/19/24 10:15 IMPRESSION: 1. Mild degenerative changes of the left shoulder. 2. No left-sided rib fracture. Electronically signed by: Orlando Lindsey MD 06/19/2024 10:50 AM EDT RP Shoulder X-Ray 06/19/24 10:15 IMPRESSION: 1. Mild degenerative changes of the left shoulder. 2. No left-sided rib fracture. Electronically signed by: Orlando Lindsey MD 06/19/2024 10:50 AM EDT RP Medications Medications Current Medications Acetaminophen (Acetaminophen 325 Mg Tablet) 650 mg PO Q6H PRN PRN Reason: Headache/Pain Mild Scale (1-3) Last Admin: 06/22/24 03:24 Dose: 650 mg Al Hydroxide/Mg Hydroxide (Magnesium Hydrox/Alum Hydrox 30 Ml Oral.Susp) 30 ml PO Q6H PRN PRN Reason: Heartburn/Nausea Albuterol Sulfate (Albuterol Sulfate 90 Mcg 8 Gm Inhaler) 2 puff INHALE QID PRN PRN Reason: Shortness Of Breath Ascorbic Acid (Ascorbic Acid 500 Mg Tablet) 1,000 mg PO DAILY ELMO Last Admin: 07/03/24 09:43 Dose: 1,000 mg Benzocaine (Throat Lozenge, Medicated Lozenge) 1 lozenge MUCOUS MEM Q2H PRN PRN Reason: Sore Throat Last Admin: 06/30/24 22:42 Dose: 1 lozenge Bisacodyl (Bisacodyl 5 Mg Tablet.Dr) 10 mg PO BEDTIME ELMO Last Admin: 07/02/24 22:59 Dose: Not Given Bupropion HCl (Bupropion Hcl Xl 150 Mg Tab.Er.24h) 450 mg PO DAILY ELMO Last Admin: 07/03/24 09:43 Dose: 450 mg Cariprazine (Cariprazine Hcl 1.5 Mg Capsule) 4.5 mg PO DAILY [facility] Last Admin: 07/03/24 09:42 Dose: 4.5 mg Clonazepam (Clonazepam 0.5 Mg Tablet) 0.5 mg PO BID@0900,1700 [facility] Last Admin: 07/03/24 09:44 Dose: 0.5 mg Clonidine HCl (Clonidine Hcl 0.1 Mg Tablet) 0.1 mg PO BEDTIME ELMO; Protocol Last Admin: 07/02/24 21:57 Dose: 0.1 mg Clonidine HCl (Clonidine Hcl 0.1 Mg Tablet) 0.1 mg PO Q4H PRN; Protocol PRN Reason: anxiety Last Admin: 07/03/24 09:43 Dose: 0.1 mg Hydroxyzine HCl (Hydroxyzine Hcl 25 Mg Tablet) 25 mg PO Q6H PRN PRN Reason: Anxiety Last Admin: 07/03/24 00:01 Dose: 25 mg Ibuprofen (Ibuprofen 600 Mg Tablet) 600 mg PO Q6H PRN PRN Reason: Pain, Severe (Pain Scale 7-10) Last Admin: 07/03/24 09:49 Dose: 600 mg Lactulose (Lactulose 20 Gm/30 Ml Solution) 40 gm PO DAILY [facility] Last Admin: 07/03/24 09:35 Dose: Not Given Lidocaine (Lidocaine 4 % Patch Adh..Patch) 1 patch TRANSDERMA DAILY [facility]; Protocol Last Admin: 07/02/24 09:10 Dose: 1 patch Lidocaine HCl (Lidocaine Hcl 2 % Urojet 10 Ml Jel.Pf.Luis) 10 ml TOPICAL BID PRN PRN Reason: Pain, Severe (Pain Scale 7-10) Last Admin: 06/19/24 22:05 Dose: 10 ml Loperamide HCl (Loperamide Hcl 2 Mg Capsule) 2 mg PO Q4H PRN PRN Reason: Diarrhea Magnesium Hydroxide (Milk Of Magnesia 30 Ml Oral.Susp) 30 ml PO DAILY PRN PRN Reason: Constipation Last Admin: 06/04/24 05:22 Dose: 30 ml Multi-Ingred Cream/Lotion/Oil/Oint (Mineral Oil/Petrolatum,White 106 Gm Tube) 1 appl TOPICAL BID PRN; Protocol PRN Reason: Dry Skin Last Admin: 06/13/24 21:44 Dose: 1 appl Patient Own (Belbuca (75mcg Buccal Films)) 1 each PO BID ELMO Last Admin: 07/03/24 09:44 Dose: 1 each Ondansetron HCl (Ondansetron Odt 4 Mg Tab.Rapdis) 4 mg TRANSLINGU Q6H PRN PRN Reason: Nausea and Vomiting Last Admin: 06/18/24 16:17 Dose: 4 mg Polyethylene Glycol (Polyethylene Glycol 3350 17 Gm Powd.Pack) 17 gm PO BID [facility] Last Admin: 07/03/24 09:35 Dose: Not Given Quetiapine Fumarate (Quetiapine Fumarate 50 Mg Tablet) 150 mg PO BEDTIME [facility] Last Admin: 07/02/24 21:56 Dose: 150 mg Senna/Docusate Sodium (Sennosides/Docusate Sodium Tablet) 2 tab PO BID [facility] Last Admin: 07/03/24 09:43 Dose: 2 tab Simethicone (Simethicone 80 Mg Tab.Chew) 160 mg PO BID PRN PRN Reason: bloating/gas Last Admin: 06/07/24 11:06 Dose: 160 mg Tamsulosin HCl (Tamsulosin Hcl 0.4 Mg Capsule) 0.4 mg PO BEDTIME [facility] Last Admin: 07/02/24 21:57 Dose: 0.4 mg Allergies Allergies Allergy/AdvReac Type Severity Reaction Status Date / Time azithromycin Allergy Itching Verified 06/21/24 12:35 levofloxacin [From Levaquin] Allergy Nightmare Verified 06/21/24 12:35 nitrofurantoin Allergy Itching Verified 06/21/24 12:35 [From Macrodantin] Assessment & Plan Assessment & Plan (1) MDD (major depressive disorder), recurrent episode, moderate: Status: Acute Code(s): F33.1 - Major depressive disorder, recurrent, moderate (2) PTSD (post-traumatic stress disorder): Status: Acute Code(s): F43.10 - Post-traumatic stress disorder, unspecified (3) Voiding dysfunction: Status: Acute Code(s): N39.8 - Other specified disorders of urinary system Assessment and Plan: She has no urinary concerns at this time No further antibiotics for now (4) Urinary retention: Status: Acute Code(s): R33.9 - Retention of urine, unspecified (5) Jennifer-Danlos disease: Status: Acute Code(s): Q79.60 - Jennifer-Danlos syndrome, unspecified (6) Osteogenesis imperfecta: Status: Acute Code(s): Q78.0 - Osteogenesis imperfecta (7) Myofascial pain syndrome: Status: Acute Code(s): M79.18 - Myalgia, other site Plan HPI: Patient is a 39-year-old female with history of Jennifer Danlos syndrome, osteogenesis imperfecta, myofascial pain syndrome, migraines, juvenile osteoporosis, asthma, and mood disorder with history of rectocele, vaginal mesh surgery, urinary retention requiring Van catheterization, which was recently restarted. P atient?presented?to?[place]?on?924?following?intentional?overdose?on?muscle?rel axers.??Patient?lujan mary?was?immediately?transferred?to?medical?floor?for?urinary?retention;?she?stab ilized?there?and?was?discharged.?? She?presents?again?for?overdose On?gabapentin?and?trazodone,?Which?she?asserts?was?not?intentional (though later admits it was),?saying?she?just?wanted?to?sleep?and?get?relief?from?chronic?pain H owever?she?agrees?it?was?impulsive?and?unsafe.??Patient?currently?denies?any?SI. ??She?reports?howeve r?that?life?has?been?very?difficultff?pain?medications,?having?been?prescribed?o pioids?consistently?for?the?past?24?years,? as?well?as?Ativan.??Patient?agrees?she?needs Help?stabilizing?and?coping. Relevant Medical/psych History: Patient was on opiates scheduled for 24 years to manage chronic medical comorbidities, resulting in hx of multiple fractures/falls and subsequent chronic pain. Pt denies any hx of substance abuse, including cannabis. She did screen positive for Fentanyl at first admission in October 2024 but is adamant she's never used it in her life and no quantitative labs done (leaving Fentanyl use inconclusive). Patients long-time physician of [address] Brigido Dietrich retired and new PCP tapered her off and discontinued all opioid pain management (also tapered and dc'd ativan). Patient reports she has been in constant pain and discomfort since then and has felt very frustrated and challenged to enjoy life, sometimes challenging her desire to live. Discussed?case?with?SERVICE CAR DRIVER iVaney Dunaway from pain management clinic: pt seen on 05/24. SERVICE CAR DRIVER Gume agrees that patients medical comorbidities and subsequent chronic pain syndrome are commonly treated with opioid pain management. She recommends either Butrans patch or preferably Belbucha films (a form of Buprenorphin and titrating it to 150mg BID). Pt is also appropriate to get other nerve blocking treatments at pain clinic who will f/u with pt. Needle Punch Operator spoke with patient's PCP Dr. Rubio at [facility] Dr. Ruboi reports concurs that patient has Osteogenesis imprefecta, Ehlos Danlos Pt was on opioids for 24 years with prior PCP. With [facility] she was on Oxycodine 30mg QID and Oxycontin 30mg daily. In Sep 2023 pt was admitted to [facility] for concern for overdose. Additionally, there were other concerns including that [facility] notes referenced that patient reported being on a Fentanyl patch, which this provider had never prescribed. Additionally, there was hx of patient needing refills early and a report that her mother had used some of her medications. Also patient had significant weight loss which provider was concerned might have contributed to possible accidental overdose. Because of these concerns provider, clinic repeatedly called patient to come in and discuss pain management and reportedly reached out to her from October until January however patient did not respond or come in for appointments, having missed several. Provider reports that because of lack of communication and ongoing concern that was never addressed, Provider felt it was necessary to taper patient off pain medication which was started in January; patient was also tapered off Ativan. Provider agrees that patient does have significant medical history that is commonly treated with chronic pain medication. Needle Punch Operator discussed options with them and Dr. Rubio agrees that starting patient on a buprenorphine product is an acceptable alternative to oxycodone. Vraylar since depressed and hx of manic-esque IMPRESSION: Patient's?depression?and?SI?seem?to?have significant?situational component?as?she?is?No?longer?receiving?pain?management?for?severe,?chronic?pain . P atient?has?no?known?history?of?substance?abuse.??Although?she?did?screen?positiv e?for?fentanyl (on?10/27/2023 and?05/18/2024), No?quantitative?analysis?was?done. ?This?mean that?fentanyl?screen?could?very?well?be?a?false-positive?result (which is not uncommon). Medical?decision?should?not?be?based?on?only?a?positive?screen?for?fentanyl. Patient does struggle with SI and with her chronic?pain?And?poor?support?will?likely?continue?to?produce?mood?instability.? ?Treatment?plan?will?include?consumer loan underwriter/team?discussion?with Outpatient?PCP?regarding?plan?for?treatment. Hospital course: 06/05: Continue current regimen and plans 06/06. Continue current plans and regimen. Loperamide was put on hold. Started on simethicone by hospitalist. No indications of GI bleeding currently. -seen by GI: C/o constipation and worsening abdominal distension. Will order CT A/P with IV/PO contrast to assess for SBO/ileus though passage of gas and small amount of stool argues against complete obstruction; however she is at risk given multiple surgeries. If no obstruction will order bowel regimen to address constipation. Continue Van, Urology following. 06/07 Patient reports that she is depressed. She apologized for not being more forthcoming earlier on in says it took her awhile to admitted to herself but she does not want to be in this world anymore... And has a plan to jump in front of a train on discharge. Patient also reports that overdose on trazodone/gabapentin was actually an intentional suicide attempt. She reports a constant deluge of self-deprecating thoughts which include that she is worthless, discussed in, and fat. Needle Punch Operator reviewed patient's history of anorexia and patient reports she sees herself as fat every day and eats very little (history of anorexia since 14 years old; was at brought up oral for a month with a feeding tube; she understands that this is a significant cause of her chronic constipation). Despite her SI, patient does want help getting better agrees to try antidepressant medication; consumer loan underwriter reviewed options and risks/side effects and patient with Vraylar. Also discussed pain medication management and patient agrees with Belbuca which she has heard of; she also agrees to non opioid pain management and will follow-up with pain management Clinic here at [place]. Discussed relationship with her mother and she does not SA think her mother struggles with drug addiction but has caught her trying to get into her room, which patient keeps locked, looking for her medications which she has taken in the past. Patient said she reported this to her PCP. Patient does have history of being prescribed fentanyl patch however she did not like them and weaned herself off of them; set had some left over 06/08 Patient remains depressed with suicidal thinking however is trying to be hopeful and has tolerated Vraylar and says will continue, with increased dose; grateful for help getting Belbuca through prior authorization. -Discussed case with urology who recommends remaining with indwelling Van since failed voiding attempt on 06/03; will continue to follow -pt reported and nurse corroborated that Van bag containing urine was blood- tinged; discussed with Urologist, deemed likely micro trauma, and to keep van in place; recently failed voiding trial on 06/03 06/09 Patient reports she remains depressed, with SI. Patient also reports she had a very difficult time sleeping last night feeling very upset following a conversation she had on the phone with her mother. Patient expressed to her mother she is feeling hurt that her mom has not visited or called throughout her admission, even on patient's birthday; she says her mom was on apologetic. Patient also challenged her mom regarding her mom's past comment that patient could burn in hell with her father (who 2 years ago); mom remained unapologetic. Patient tells consumer loan underwriter she has no idea why her mom said this other than that her mom is crazy... Subsequently patient reports that throughout the night, she had racing thoughts and no sleep. Discussed medications and patient and pt is eager to try Belbuca Films for pain management, available today dc'd gabapentin; pt said has never helped for pain or anxiety Adding clonidine at bedtime to help w/ sleep, anxiety 06/10 patient reports that Belbuca is helping with pain Patient remains very depressed and continues to have suicidal thoughts, saying she wants to end her life when she leaves the hospital. Patient Says I do not understand myself.. And laments she is gone most of her life without any suicidal ideation and only started this past September. Patient shared about some other reasons that it might be occurring and agrees that she still mourning the loss of her father who was her confidante; dealing with chronic pain having been off pain medications for several months and the ongoing struggles in her relationship with her mother and brother whom she feels are bullying; trying to come to terms with the fact that her mother simply isn't going to be the kind of mother she wishes she had. Patient agrees to medication management. 06/13 still very depressed with SI. Sleeping better however which is helpful and pain medications are also helpful. Patient agrees to increasing Vraylar; agrees to behavioral activation and attending groups. Despite ongoing thoughts about self-harm and ending her life when she is discharge, patient is also future oriented and says she would like to find a new place to live separate from her mother and brother. Asks for help going about that. 06/14 pt remains depressed, positive for SI with a plan but also future oriented talking about changing her living situation. Pt is engaged in treatment, trying to process her suicidal feelings and trying to be hopeful it will resolve. Agrees to adding Wellbutrin. -will likely add Wellbutrin; however, will probably keep Vraylar (maybe at lower dose) since pt has hx of manic-esque episodes (thought not formally diagnosed with bipolar as episode had several contributory factors) 06/15 remains depressed but processing feelings, doing worksheets, talking about her mother. Pt very anxious. -may increase wellbutrin for depression -considered starting Clonazepam 0.5mg BID; pt used to be on as much as 5mg of ativan daily; was weened off so hesitant to restart benzo's; 06/17 increase Wellbutrin 06/20 Over the weekend, patient assessed for infection, starting antibiotic; concerned that indwelling Van catheter is not sustainable; urology consulted and plan was for suprapubic catheter insertion for today. Patient however did not get fully informed of this and was upset to learn that a procedure was planned. She was however able to discuss this at length with consumer loan underwriter and urology team and agreed to proceed. 06/21 Dr. Niño decided better to do a cystoscopy 1st and then decide whether not suprapubic catheter verse bladder stimulator; patient consents Seen by infectious disease: She has no urinary concerns at this time..No further antibiotics for now 06/22 Patient discussed conversation she had with her brother that was reassuring. Patient felt understood by him and supported which has lifted her mood. She feels that although she still depressed perhaps some of the depression is lifting and she starting to feel that there is hope of change in her situation. Patient remains very anxious. Earlier she had said she did not want to get back on benzodiazepines, having been on Ativan 5 mg for decades, weaned off only about a year ago. However given patient's struggles with anxiety and the fact that benzos have helped her in the past, discussed restarting a benzodiazepine, this time clonazepam 0.5 mg b.i.d.; consumer loan underwriter discussed at length risks for addiction and the constant desire to have more. Patient said she very much does not want that to happen and feels that she will be able to minimize her use 06/23 Depressed, with intermittent SI. very anxious and with despairing thoughts has upcoming anniversary of her father's which is this July 03; will try to make it remembrance day and change the perspective. -Feeling better about catheter and plan; consumer loan underwriter discussed with urology who met with patient and plan is for July 05 to move forward with stimulator -patient attending groups and engaged in treatment 06/24 a little better; mood up and down and still intermittent SI but patient is working on being hopeful employee numerous coping skills. Agrees to increase Wellbutrin 06/25 Patient continues to report depressed mood; told nurse that she remains purging daily and still plans to attempt suicide when she leaves. However on the unit, she seems more relaxed. Patient shared with consumer loan underwriter her plan to remember her father on the anniversary of his . 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 Currently she is eating enough. As this is a chronic problem that that has gone on for over 20 years, and with which patient has been able to cope with on her own, without needing hospitalizations or [place] admissions since teenage years, consumer loan underwriter does not expect that it will resolve during this inpatient stay and does not believe that it needs to. 06/27 very tearful sad; suicidal; pushing self to be around others, groups -talked about eating struggles, purging; trying not to 06/28 do not think that medication management will change patients depression at this time. Rather she needs continued time to process her feelings of despair, grief about her fathers , hx of trauma, feeling her future is bleak. -consumer loan underwriter engaged in psychodynamic psychotherapy 06/30: feels clonidine and klonopin helpful for anxiety. asking for pain med change; deferred for return of attending, does not appear in pain. Q5s for SI/van. staff developer feel pt is not substantially worse than her recent inpatient baseline, but perhaps looking a bit better today than yesterday. 07/01: appears behaving as per usual for inpatient context. increase seroquel to 150 QHS for insomnia and appetite stimulation. continue current mgmt otherwise. 07/02: Continues depressed with suicidal thoughts. Says she wants to starve self. VSS. Check metabolic panel. 07/03: Continue current management and treatment plan. PLAN: CV? Q 5s due to?indwelling?Van Continue clonazepam 0.5 mg b.i.d. Increase to WEllbutrin XL 450 mg for continued depression (pt adamant about not starting anti-depressant with risk of wt gain) Continue Vraylar 4.5 mg daily (Vraylar chosen since patient has depression but also history of manic type behaviors, possibly manic episode with some delusions and AH) Continue Belbuca 75mcg films BID for pain management (history of fentanyl patch, morphine, oxycodone, OxyContin) clonidine prn Continue Flagyl 500 q.12 hours x7 days placed for bacterial vaginosis; id examined patient and reports no need for any additional antibiotic regimen Urology appointment: July 05 for placement of bladder stimulator (With Dr. Leiva) Cystoscopy Findings: Bladder wall thickening, no vaginal or bladder mesh, no evidence outlet obstruction Hospitalist note 06/18 Receiving Pyridium UA 06/18 positive for 4+ bacteria, greater than 50 WBC, large leukocyte esterase positive nitrates Urine culture pending Urine culture 05/25 and 06/01 grew Raissa glabrata patient received Diflucan 200 mg daily from 06/01 through 06/15 Bacterial vaginosis PCR positive Raissa grew size/glabrata detected Due to persistent symptoms of vaginal pain/discharge recommend Infectious Disease consultation Follow urine culture. Patient educated on: diagnosis, medication risk/benefits and medical condition Reason for continued inpatient stay Substantial Risk for: harm to self, inability to function, rapid decompensation and med/psych decompensation Time Spent With Patient Time: Total time managing care of this patient today ____ minutes.
[2024-07-03 13:49] VITALS: BP 117/76
[2024-07-03 20:00] VITALS: BP 134/86; PULSE 93; RESP 16; TEMP 36.6; O2SAT 97
[2024-07-03] MEDS: QUEtiapine Fumarate 50 MG TABLET 150 MG PO (22:10)
[2024-07-03] MEDS: Tamsulosin HCL 0.4 MG CAPSULE PO (22:11)
[2024-07-04 03:26] VITALS: BP 131/71; PULSE 88; RESP 16; O2SAT 96
[2024-07-04] MEDS: hydrOXYzine HCL 25 MG TABLET PO ×2 (03:28→14:48)
[2024-07-04] MEDS: cloNIDine HCL 0.1 MG TABLET PO ×3 (03:28→21:32)
[2024-07-04 08:00] VITALS: BP 108/61; PULSE 76; RESP 18; TEMP 36.4; O2SAT 97
[2024-07-04] MEDS: BUPRENORPHINE 75 MCG 1 EACH PO ×2 (09:00→21:39)
[2024-07-04] MEDS: Cariprazine HCl 1.5 MG CAPSULE 4.5 MG PO (09:01)
[2024-07-04] MEDS: buPROPion HCl XL 150 MG TAB.ER.24H 450 MG PO (09:01)
[2024-07-04] MEDS: Ascorbic Acid 500 MG TABLET 1000 MG PO (09:02)
[2024-07-04] MEDS: clonazePAM 0.5 MG TABLET PO ×2 (09:02→16:30)
[2024-07-04] MEDS: Lidocaine 4 % Patch ADH..PATCH 1 PATCH TRANSDERMA (09:02)
[2024-07-04] MEDS: Sennosides/Docusate Sodium TABLET 2 TAB PO (09:02)
[2024-07-04 12:20] VITALS: BP 108/61
[2024-07-04] MEDS: Ibuprofen 600 MG TABLET PO (12:39)
[2024-07-04] MEDS: Acetaminophen 325 MG TABLET 650 MG PO (16:30)
[2024-07-04 20:00] VITALS: BP 137/89; PULSE 83; RESP 16; TEMP 36.6; O2SAT 96
[2024-07-04] MEDS: Lithium Carbonate ER 300 MG TABLET.ER PO (20:16)
[2024-07-04 21:32] VITALS: BP 126/87
[2024-07-04] MEDS: QUEtiapine Fumarate 50 MG TABLET 150 MG PO (21:32)
[2024-07-04] MEDS: Tamsulosin HCL 0.4 MG CAPSULE PO (21:32)
--- NOTE | 2024-07-04 23:10 | P.PNPSI_ITS ---
Subjective Subjective Date of Service: 07/04/24 Reason For Visit: Sa Interim History: Met with patient; discussed with team Patient continues to lament her past and anger and frustration with specific relationships. Says still feels hopeless can not stop thinking about ending her life. Discussed more about taking responsibility for feelings and while anger and frustration at others can be appropriate, it is also necessary to work on coping with such feelings. Patient said she will continue to try. Discussed history and patient has not really had SI till this October and discussed how these feelings will also pass... Discussed medication management and patient agreed to trial of lithium for continued depression and chronic SI. and increasing Vraylar Mental Status Exam Mental Status Exam Narrative: Pt is alert and oriented; behavior is cooperative, more calm; cachectic; dressed in hospital attire with hair braided; adequate hygiene; mood is described as depressed and affect congruent, downcast; eye contact appropriate; Speech is a normal rate, volume and prosody; no psychomotor retardation present; thought process is organized and goal directed; Thought content is on guilty feelings, missing father, hopeless; medical comorbidities; otherwise pertinent to relevant topics and without any delusional content, paranoid ideations or grandiosity; increased SI thoughts; no HI. There is no evidence of perceptual disturbance. Patients insight and judgment impaired Diagnostics Vital Signs (24Hr): Vital Signs - 24 hr 07/04/24 03:26 07/04/24 08:00 07/04/24 12:20 Temperature 97.5 F Pulse Rate 88 76 Respiratory Rate 16 18 Blood Pressure 131/71 108/61 108/61 Pulse Oximetry 96 97 Oxygen Delivery Method Room Air Room Air 07/04/24 20:00 07/04/24 21:32 Temperature 97.9 F Pulse Rate 83 Respiratory Rate 16 Blood Pressure 137/89 126/87 Pulse Oximetry 96 Oxygen Delivery Method Room Air BMI result Body Mass Index 17.2 Labs 06/06/24 08:20 07/02/24 10:41 Imaging Radiology Impressions: ITS Impressions KUB X-Ray 06/03/24 19:55 IMPRESSION: Increased amount of stool in the colon suggesting constipation. Please correlate with clinical presentation. Electronically signed by: Oneida Pham MD 06/04/2024 07:31 AM EDT Renal Ultrasound 06/04/24 14:49 IMPRESSION: No ultrasound evidence of renal obstruction or hydronephrosis. Limited visualization of the left kidney obscured by bowel gas, exam otherwise unremarkable. Electronically signed by: Onieda Pham MD 06/05/2024 12:56 PM EDT RP Abdomen/Pelvis CT 06/04/24 18:33 IMPRESSION: Severe constipation. Otherwise unremarkable CT abdomen and pelvis. Fleischner guidelines were followed. Electronically signed by: Deyvi Collisn MD 06/04/2024 07:05 PM EDT RP Ribs X-Ray 06/19/24 10:15 IMPRESSION: 1. Mild degenerative changes of the left shoulder. 2. No left-sided rib fracture. Electronically signed by: Orlando Lindsey MD 06/19/2024 10:50 AM EDT RP Shoulder X-Ray 06/19/24 10:15 IMPRESSION: 1. Mild degenerative changes of the left shoulder. 2. No left-sided rib fracture. Electronically signed by: Orlando Lindsey MD 06/19/2024 10:50 AM EDT RP Medications Medications Current Medications Acetaminophen (Acetaminophen 325 Mg Tablet) 650 mg PO Q6H PRN PRN Reason: Headache/Pain Mild Scale (1-3) Last Admin: 07/04/24 16:30 Dose: 650 mg Al Hydroxide/Mg Hydroxide (Magnesium Hydrox/Alum Hydrox 30 Ml Oral.Susp) 30 ml PO Q6H PRN PRN Reason: Heartburn/Nausea Albuterol Sulfate (Albuterol Sulfate 90 Mcg 8 Gm Inhaler) 2 puff INHALE QID PRN PRN Reason: Shortness Of Breath Ascorbic Acid (Ascorbic Acid 500 Mg Tablet) 1,000 mg PO DAILY [facility] Last Admin: 07/04/24 09:02 Dose: 1,000 mg Benzocaine (Throat Lozenge, Medicated Lozenge) 1 lozenge MUCOUS MEM Q2H PRN PRN Reason: Sore Throat Last Admin: 06/30/24 22:42 Dose: 1 lozenge Bisacodyl (Bisacodyl 5 Mg Tablet.Dr) 10 mg PO BEDTIME ELMO Last Admin: 07/04/24 22:40 Dose: Not Given Bupropion HCl (Bupropion Hcl Xl 150 Mg Tab.Er.24h) 450 mg PO DAILY [facility] Last Admin: 07/04/24 09:01 Dose: 450 mg Cariprazine (Cariprazine Hcl 3 Mg Capsule) 6 mg PO DAILY ELMO Clonazepam (Clonazepam 0.5 Mg Tablet) 0.5 mg PO BID@0900,1700 ELMO Last Admin: 07/04/24 16:30 Dose: 0.5 mg Clonidine HCl (Clonidine Hcl 0.1 Mg Tablet) 0.1 mg PO BEDTIME ELMO; Protocol Last Admin: 07/04/24 21:32 Dose: 0.1 mg Clonidine HCl (Clonidine Hcl 0.1 Mg Tablet) 0.1 mg PO Q4H PRN; Protocol PRN Reason: anxiety Last Admin: 07/04/24 12:20 Dose: 0.1 mg Hydroxyzine HCl (Hydroxyzine Hcl 25 Mg Tablet) 25 mg PO Q6H PRN PRN Reason: Anxiety Last Admin: 07/04/24 14:48 Dose: 25 mg Ibuprofen (Ibuprofen 600 Mg Tablet) 600 mg PO Q6H PRN PRN Reason: Pain, Severe (Pain Scale 7-10) Last Admin: 07/04/24 12:39 Dose: 600 mg Lactulose (Lactulose 20 Gm/30 Ml Solution) 40 gm PO DAILY ELMO Last Admin: 07/04/24 12:22 Dose: Not Given Lidocaine (Lidocaine 4 % Patch Adh..Patch) 1 patch TRANSDERMA DAILY [facility]; Protocol Last Admin: 07/04/24 09:02 Dose: 1 patch Lidocaine HCl (Lidocaine Hcl 2 % Urojet 10 Ml Jel.Pf.Luis) 10 ml TOPICAL BID PRN PRN Reason: Pain, Severe (Pain Scale 7-10) Last Admin: 06/19/24 22:05 Dose: 10 ml [place] Carbonate ([place] Carbonate Er 300 Mg Tablet.Er) 300 mg PO BEDTIME ELMO Last Admin: 07/04/24 20:16 Dose: 300 mg Loperamide HCl (Loperamide Hcl 2 Mg Capsule) 2 mg PO Q4H PRN PRN Reason: Diarrhea Magnesium Hydroxide (Milk Of Magnesia 30 Ml Oral.Susp) 30 ml PO DAILY PRN PRN Reason: Constipation Last Admin: 06/04/24 05:22 Dose: 30 ml Multi-Ingred Cream/Lotion/Oil/Oint (Mineral Oil/Petrolatum,White 106 Gm Tube) 1 appl TOPICAL BID PRN; Protocol PRN Reason: Dry Skin Last Admin: 06/13/24 21:44 Dose: 1 appl Patient Own (Belbuca (75mcg Buccal Films)) 1 each PO BID [facility] Last Admin: 07/04/24 21:39 Dose: 1 each Ondansetron HCl (Ondansetron Odt 4 Mg Tab.Rapdis) 4 mg TRANSLINGU Q6H PRN PRN Reason: Nausea and Vomiting Last Admin: 06/18/24 16:17 Dose: 4 mg Polyethylene Glycol (Polyethylene Glycol 3350 17 Gm Powd.Pack) 17 gm PO BID [facility] Last Admin: 07/04/24 22:41 Dose: Not Given Quetiapine Fumarate (Quetiapine Fumarate 50 Mg Tablet) 150 mg PO BEDTIME [facility] Last Admin: 07/04/24 21:32 Dose: 150 mg Senna/Docusate Sodium (Sennosides/Docusate Sodium Tablet) 2 tab PO BID [facility] Last Admin: 07/04/24 22:41 Dose: Not Given Simethicone (Simethicone 80 Mg Tab.Chew) 160 mg PO BID PRN PRN Reason: bloating/gas Last Admin: 06/07/24 11:06 Dose: 160 mg Tamsulosin HCl (Tamsulosin Hcl 0.4 Mg Capsule) 0.4 mg PO BEDTIME [facility] Last Admin: 07/04/24 21:32 Dose: 0.4 mg Allergies Allergies Allergy/AdvReac Type Severity Reaction Status Date / Time azithromycin Allergy Itching Verified 06/21/24 12:35 levofloxacin [From Levaquin] Allergy Nightmare Verified 06/21/24 12:35 nitrofurantoin Allergy Itching Verified 06/21/24 12:35 [From Macrodantin] Assessment & Plan Assessment & Plan (1) MDD (major depressive disorder), recurrent episode, moderate: Status: Acute Code(s): F33.1 - Major depressive disorder, recurrent, moderate (2) PTSD (post-traumatic stress disorder): Status: Acute Code(s): F43.10 - Post-traumatic stress disorder, unspecified (3) Voiding dysfunction: Status: Acute Code(s): N39.8 - Other specified disorders of urinary system Assessment and Plan: She has no urinary concerns at this time No further antibiotics for now (4) Urinary retention: Status: Acute Code(s): R33.9 - Retention of urine, unspecified (5) Jennifer-Danlos disease: Status: Acute Code(s): Q79.60 - Jennifer-Danlos syndrome, unspecified (6) Osteogenesis imperfecta: Status: Acute Code(s): Q78.0 - Osteogenesis imperfecta (7) Myofascial pain syndrome: Status: Acute Code(s): M79.18 - Myalgia, other site Plan HPI: Patient is a 39-year-old female with history of Jennifer Danlos syndrome, osteogenesis imperfecta, myofascial pain syndrome, migraines, juvenile osteoporosis, asthma, and mood disorder with history of rectocele, vaginal mesh surgery, urinary retention requiring Van catheterization, which was recently restarted. P atient?presented?to?[facility]?on?924?following?intentional?overdose?on?muscle?rel axers.??Patient?lujan mary?was?immediately?transferred?to?medical?floor?for?urinary?retention;?she?stab ilized?there?and?was?discharged.?? She?presents?again?for?overdose On?gabapentin?and?trazodone,?Which?she?asserts?was?not?intentional (though later admits it was),?saying?she?just?wanted?to?sleep?and?get?relief?from?chronic?pain H owever?she?agrees?it?was?impulsive?and?unsafe.??Patient?currently?denies?any?SI. ??She?reports?howeve r?that?life?has?been?very?difficultff?pain?medications,?having?been?prescribed?o pioids?consistently?for?the?past?24?years,? as?well?as?Ativan.??Patient?agrees?she?needs Help?stabilizing?and?coping. Relevant Medical/psych History: Patient was on opiates scheduled for 24 years to manage chronic medical comorbidities, resulting in hx of multiple fractures/falls and subsequent chronic pain. Pt denies any hx of substance abuse, including cannabis. She did screen positive for Fentanyl at first admission in October 2024 but is adamant she's never used it in her life and no quantitative labs done (leaving Fentanyl use inconclusive). Patients long-time physician of [address] Brigido Dietrich retired and new PCP tapered her off and discontinued all opioid pain management (also tapered and dc'd ativan). Patient reports she has been in constant pain and discomfort since then and has felt very frustrated and challenged to enjoy life, sometimes challenging her desire to live. Discussed?case?with?MANAGER ANIMAL Vianey Dunaway from pain management clinic: pt seen on 05/24. MANAGER ANIMAL Gume agrees that patients medical comorbidities and subsequent chronic pain syndrome are commonly treated with opioid pain management. She recommends either Butrans patch or preferably Bel[place]uch[place] films (a form of Buprenorphin and titrating it to 150mg BID). Pt is also appropriate to get other nerve blocking treatments at pain clinic who will f/u with pt. Rails Developer spoke with patient's PCP Dr. Rubio at [facility] Dr. uRbio reports concurs that patient has Osteogenesis imprefecta, Ehlos Danlos Pt was on opioids for 24 years with prior PCP. With [facility] she was on Oxycodine 30mg QID and Oxycontin 30mg daily. In Sep 2023 pt was admitted to [facility] for concern for overdose. Additionally, there were other concerns including that [facility] notes referenced that patient reported being on a Fentanyl patch, which this provider had never prescribed. Additionally, there was hx of patient needing refills early and a report that her mother had used some of her medications. Also patient had significant weight loss which provider was concerned might have contributed to possible accidental overdose. Because of these concerns provider, clinic repeatedly called patient to come in and discuss pain management and reportedly reached out to her from October until January however patient did not respond or come in for appointments, having missed several. Provider reports that because of lack of communication and ongoing concern that was never addressed, Provider felt it was necessary to taper patient off pain medication which was started in January; patient was also tapered off Ativan. Provider agrees that patient does have significant medical history that is commonly treated with chronic pain medication. Rails Developer discussed options with them and Dr. Rubio agrees that starting patient on a buprenorphine product is an acceptable alternative to oxycodone. Vraylar since depressed and hx of manic-esque IMPRESSION: Patient's?depression?and?SI?seem?to?have significant?situational component?as?she?is?No?longer?receiving?pain?management?for?severe,?chronic?pain . P atient?has?no?known?history?of?substance?abuse.??Although?she?did?screen?positiv e?for?fentanyl (on?10/27/2023 and?05/18/2024), No?quantitative?analysis?was?done. ?This?mean that?fentanyl?screen?could?very?well?be?a?false-positive?result (which is not uncommon). Medical?decision?should?not?be?based?on?only?a?positive?screen?for?fentanyl. Patient does struggle with SI and with her chronic?pain?And?poor?support?will?likely?continue?to?produce?mood?instability.? ?Treatment?plan?will?include?lyric writer/team?discussion?with Outpatient?PCP?regarding?plan?for?treatment. Hospital course: 06/05: Continue current regimen and plans 06/06. Continue current plans and regimen. Loperamide was put on hold. Started on simethicone by hospitalist. No indications of GI bleeding currently. -seen by GI: C/o constipation and worsening abdominal distension. Will order CT A/P with IV/PO contrast to assess for SBO/ileus though passage of gas and small amount of stool argues against complete obstruction; however she is at risk given multiple surgeries. If no obstruction will order bowel regimen to address constipation. Continue Van, Urology following. 06/07 Patient reports that she is depressed. She apologized for not being more forthcoming earlier on in says it took her awhile to admitted to herself but she does not want to be in this world anymore... And has a plan to jump in front of a train on discharge. Patient also reports that overdose on trazodone/gabapentin was actually an intentional suicide attempt. She reports a constant deluge of self-deprecating thoughts which include that she is worthless, discussed in, and fat. Rails Developer reviewed patient's history of anorexia and patient reports she sees herself as fat every day and eats very little (history of anorexia since 14 years old; was at brought up oral for a month with a feeding tube; she understands that this is a significant cause of her chronic constipation). Despite her SI, patient does want help getting better agrees to try antidepressant medication; lyric writer reviewed options and risks/side effects and patient with Vraylar. Also discussed pain medication management and patient agrees with Belbuca which she has heard of; she also agrees to non opioid pain management and will follow-up with pain management Clinic here at [facility]. Discussed relationship with her mother and she does not SA think her mother struggles with drug addiction but has caught her trying to get into her room, which patient keeps locked, looking for her medications which she has taken in the past. Patient said she reported this to her PCP. Patient does have history of being prescribed fentanyl patch however she did not like them and weaned herself off of them; set had some left over 06/08 Patient remains depressed with suicidal thinking however is trying to be hopeful and has tolerated Vraylar and says will continue, with increased dose; grateful for help getting Belbuca through prior authorization. -Discussed case with urology who recommends remaining with indwelling Van since failed voiding attempt on 06/03; will continue to follow -pt reported and nurse corroborated that Van bag containing urine was blood- tinged; discussed with Urologist, deemed likely micro trauma, and to keep van in place; recently failed voiding trial on 06/03 06/09 Patient reports she remains depressed, with SI. Patient also reports she had a very difficult time sleeping last night feeling very upset following a conversation she had on the phone with her mother. Patient expressed to her mother she is feeling hurt that her mom has not visited or called throughout her admission, even on patient's birthday; she says her mom was on apologetic. Patient also challenged her mom regarding her mom's past comment that patient could burn in hell with her father (who 2 years ago); mom remained unapologetic. Patient tells lyric writer she has no idea why her mom said this other than that her mom is crazy... Subsequently patient reports that throughout the night, she had racing thoughts and no sleep. Discussed medications and patient and pt is eager to try Belbuca Films for pain management, available today dc'd gabapentin; pt said has never helped for pain or anxiety Adding clonidine at bedtime to help w/ sleep, anxiety 06/10 patient reports that Belbuca is helping with pain Patient remains very depressed and continues to have suicidal thoughts, saying she wants to end her life when she leaves the hospital. Patient Says I do not understand myself.. And laments she is gone most of her life without any suicidal ideation and only started this past September. Patient shared about some other reasons that it might be occurring and agrees that she still mourning the loss of her father who was her confidante; dealing with chronic pain having been off pain medications for several months and the ongoing struggles in her relationship with her mother and brother whom she feels are bullying; trying to come to terms with the fact that her mother simply isn't going to be the kind of mother she wishes she had. Patient agrees to medication management. 06/13 still very depressed with SI. Sleeping better however which is helpful and pain medications are also helpful. Patient agrees to increasing Vraylar; agrees to behavioral activation and attending groups. Despite ongoing thoughts about self-harm and ending her life when she is discharge, patient is also future oriented and says she would like to find a new place to live separate from her mother and brother. Asks for help going about that. 06/14 pt remains depressed, positive for SI with a plan but also future oriented talking about changing her living situation. Pt is engaged in treatment, trying to process her suicidal feelings and trying to be hopeful it will resolve. Agrees to adding Wellbutrin. -will likely add Wellbutrin; however, will probably keep Vraylar (maybe at lower dose) since pt has hx of manic-esque episodes (thought not formally diagnosed with bipolar as episode had several contributory factors) 06/15 remains depressed but processing feelings, doing worksheets, talking about her mother. Pt very anxious. -may increase wellbutrin for depression -considered starting Clonazepam 0.5mg BID; pt used to be on as much as 5mg of ativan daily; was weened off so hesitant to restart benzo's; 06/17 increase Wellbutrin 06/20 Over the weekend, patient assessed for infection, starting antibiotic; concerned that indwelling Van catheter is not sustainable; urology consulted and plan was for suprapubic catheter insertion for today. Patient however did not get fully informed of this and was upset to learn that a procedure was planned. She was however able to discuss this at length with lyric writer and urology team and agreed to proceed. 06/21 Dr. Niño decided better to do a cystoscopy 1st and then decide whether not suprapubic catheter verse bladder stimulator; patient consents Seen by infectious disease: She has no urinary concerns at this time..No further antibiotics for now 06/22 Patient discussed conversation she had with her brother that was reassuring. Patient felt understood by him and supported which has lifted her mood. She feels that although she still depressed perhaps some of the depression is lifting and she starting to feel that there is hope of change in her situation. Patient remains very anxious. Earlier she had said she did not want to get back on benzodiazepines, having been on Ativan 5 mg for decades, weaned off only about a year ago. However given patient's struggles with anxiety and the fact that benzos have helped her in the past, discussed restarting a benzodiazepine, this time clonazepam 0.5 mg b.i.d.; lyric writer discussed at length risks for addiction and the constant desire to have more. Patient said she very much does not want that to happen and feels that she will be able to minimize her use 06/23 Depressed, with intermittent SI. very anxious and with despairing thoughts has upcoming anniversary of her father's which is this July 03; will try to make it remembrance day and change the perspective. -Feeling better about catheter and plan; lyric writer discussed with urology who met with patient and plan is for July 05 to move forward with stimulator -patient attending groups and engaged in treatment 06/24 a little better; mood up and down and still intermittent SI but patient is working on being hopeful employee numerous coping skills. Agrees to increase Wellbutrin 06/25 Patient continues to report depressed mood; told nurse that she remains purging daily and still plans to attempt suicide when she leaves. However on the unit, she seems more relaxed. Patient shared with lyric writer her plan to remember her father on the anniversary of his . 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 Currently she is eating enough. As this is a chronic problem that that has gone on for over 20 years, and with which patient has been able to cope with on her own, without needing hospitalizations or [place] admissions since teenage years, lyric writer does not expect that it will resolve during this inpatient stay and does not believe that it needs to. 06/27 very tearful sad; suicidal; pushing self to be around others, groups -talked about eating struggles, purging; trying not to 06/28 do not think that medication management will change patients depression at this time. Rather she needs continued time to process her feelings of despair, grief about her fathers , hx of trauma, feeling her future is bleak. -lyric writer engaged in psychodynamic psychotherapy 06/29 same presentation; lyric writer engaged in psychodynamic psychotherapy 06/30: feels clonidine and klonopin helpful for anxiety. asking for pain med change; deferred for return of attending, does not appear in pain. Q5s for SI/van. nursing staff development coordinator feel pt is not substantially worse than her recent inpatient baseline, but perhaps looking a bit better today than yesterday. 07/01: appears behaving as per usual for inpatient context. increase seroquel to 150 QHS for insomnia and appetite stimulation. continue current mgmt otherwise. 07/02: Continues depressed with suicidal thoughts. Says she wants to starve self. VSS. Check metabolic panel. 07/04 Patient continues to lament her past and anger and frustration with specific relationships. Says still feels hopeless can not stop thinking about ending her life. Discussed more about taking responsibility for feelings and while anger and frustration at others can be appropriate, it is also necessary to work on coping with such feelings. Patient said she will continue to try. Discussed history and patient has not really had SI till this October and discussed how these feelings will also pass... Discussed medication management and patient agreed to trial of lithium for continued depression and chronic SI. and increasing Vraylar -patient considers ending her life by starving herself though she has been eating on the unit. -discussed surgical implantation of bladder stimulator tomorrow PLAN: CV? Q 5s due to?indwelling?Van Continue clonazepam 0.5 mg b.i.d. Increase to WEllbutrin XL 450 mg for continued depression (pt adamant about not starting anti-depressant with risk of wt gain) Continue Vraylar 4.5 mg daily (Vraylar chosen since patient has depression but also history of manic type behaviors, possibly manic episode with some delusions and AH) Continue Belbuca 75mcg films BID for pain management (history of fentanyl patch, morphine, oxycodone, OxyContin) clonidine prn Continue Flagyl 500 q.12 hours x7 days placed for bacterial vaginosis; id examined patient and reports no need for any additional antibiotic regimen Urology appointment: July 05 for placement of bladder stimulator (With Dr. Leiva) Cystoscopy Findings: Bladder wall thickening, no vaginal or bladder mesh, no evidence outlet obstruction Hospitalist note 06/18 Receiving Pyridium UA 06/18 positive for 4+ bacteria, greater than 50 WBC, large leukocyte esterase positive nitrates Urine culture pending Urine culture 05/25 and 06/01 grew Raissa glabrata patient received Diflucan 200 mg daily from 06/01 through 06/15 Bacterial vaginosis PCR positive Raissa grew size/glabrata detected Due to persistent symptoms of vaginal pain/discharge recommend Infectious Disease consultation Follow urine culture. Patient educated on: diagnosis, medication risk/benefits and medical condition Patient educated on: diagnosis, medication risk/benefits and therapeutic strategies Informed Consent: understands Reason for continued inpatient stay Substantial Risk for: rapid decompensation Time Spent With Patient Time: Total time managing care of this patient today ____ minutes.
[2024-07-05 08:56] VITALS: BP 113/71; PULSE 83; TEMP 36.7; O2SAT 96
--- NOTE | 2024-07-05 11:31 | HO.PSYCHPN ---
Subjective Subjective Date of Service: 07/05/24 Reason For Visit: Sa Interim History: Met?with?patient;?discussed?with?team Patient?got?bladder?stimulator?inserted.??Complaining?of?pain.??Staff?trying?to?make?patient?comfortable. Mostly?focused?on?this?intervention?which?is?dominating?conversation.??Remains?with?SI Though?also?future?oriented. ?Continues?to?restrict?food?intake;?weight?has?decreased?since?admission. Mental Status Exam Mental Status Exam Narrative: Pt is alert and oriented; behavior is cooperative, more calm; cachectic; dressed in hospital attire with hair braided; adequate hygiene; mood is described as depressed and affect congruent, downcast; eye contact appropriate; Speech is a normal rate, volume and prosody; no psychomotor retardation present; thought process is organized and goal directed; Thought content is on guilty feelings, missing father, hopeless; medical comorbidities; otherwise pertinent to relevant topics and without any delusional content, paranoid ideations or grandiosity; increased SI thoughts; no HI. There is no evidence of perceptual disturbance. Patients insight and judgment impaired Diagnostics Vital Signs (24Hr): Vital Signs - 24 hr 07/04/24 12:20 07/04/24 20:00 07/04/24 21:32 Temperature 97.9 F Pulse Rate 83 Respiratory Rate 16 Blood Pressure 108/61 137/89 126/87 Pulse Oximetry 96 Oxygen Delivery Method Room Air 07/05/24 08:56 Temperature 98.0 F Pulse Rate 83 Respiratory Rate Blood Pressure 113/71 Pulse Oximetry 96 Oxygen Delivery Method Room Air BMI result Body Mass Index 17.2 Labs 07/07/24 14:53 07/07/24 14:53 Imaging Radiology Impressions: ITS Impressions KUB X-Ray 06/03/24 19:55 IMPRESSION: Increased amount of stool in the colon suggesting constipation. Please correlate with clinical presentation. Electronically signed by: Oneida Pham MD 06/04/2024 07:31 AM EDT Renal Ultrasound 06/04/24 14:49 IMPRESSION: No ultrasound evidence of renal obstruction or hydronephrosis. Limited visualization of the left kidney obscured by bowel gas, exam otherwise unremarkable. Electronically signed by: Oneida Pham MD 06/05/2024 12:56 PM EDT RP Abdomen/Pelvis CT 06/04/24 18:33 IMPRESSION: Severe constipation. Otherwise unremarkable CT abdomen and pelvis. Fleischner guidelines were followed. Electronically signed by: Deyvi Collins MD 06/04/2024 07:05 PM EDT RP Ribs X-Ray 06/19/24 10:15 IMPRESSION: 1. Mild degenerative changes of the left shoulder. 2. No left-sided rib fracture. Electronically signed by: Orlando Lindsey MD 06/19/2024 10:50 AM EDT RP Shoulder X-Ray 06/19/24 10:15 IMPRESSION: 1. Mild degenerative changes of the left shoulder. 2. No left-sided rib fracture. Electronically signed by: Orlando Lindsey MD 06/19/2024 10:50 AM EDT RP Medications Medications Current Medications Acetaminophen (Acetaminophen 325 Mg Tablet) 650 mg PO Q6H PRN PRN Reason: Headache/Pain Mild Scale (1-3) Last Admin: 07/04/24 16:30 Dose: 650 mg Al Hydroxide/Mg Hydroxide (Magnesium Hydrox/Alum Hydrox 30 Ml Oral.Susp) 30 ml PO Q6H PRN PRN Reason: Heartburn/Nausea Albuterol Sulfate (Albuterol Sulfate 90 Mcg 8 Gm Inhaler) 2 puff INHALE QID PRN PRN Reason: Shortness Of Breath Ascorbic Acid (Ascorbic Acid 500 Mg Tablet) 1,000 mg PO DAILY [facility] Last Admin: 07/04/24 09:02 Dose: 1,000 mg Benzocaine (Throat Lozenge, Medicated Lozenge) 1 lozenge MUCOUS MEM Q2H PRN PRN Reason: Sore Throat Last Admin: 06/30/24 22:42 Dose: 1 lozenge Bisacodyl (Bisacodyl 5 Mg Tablet.Dr) 10 mg PO BEDTIME [facility] Last Admin: 07/04/24 22:40 Dose: Not Given Bupropion HCl (Bupropion Hcl Xl 150 Mg Tab.Er.24h) 450 mg PO DAILY [facility] Last Admin: 07/04/24 09:01 Dose: 450 mg Cariprazine (Cariprazine Hcl 3 Mg Capsule) 6 mg PO DAILY [facility] Clonazepam (Clonazepam 0.5 Mg Tablet) 0.5 mg PO BID@0900,1700 [facility] Last Admin: 07/04/24 16:30 Dose: 0.5 mg Clonidine HCl (Clonidine Hcl 0.1 Mg Tablet) 0.1 mg PO BEDTIME [facility]; Protocol Last Admin: 07/04/24 21:32 Dose: 0.1 mg Clonidine HCl (Clonidine Hcl 0.1 Mg Tablet) 0.1 mg PO Q4H PRN; Protocol PRN Reason: anxiety Last Admin: 07/04/24 12:20 Dose: 0.1 mg Hydroxyzine HCl (Hydroxyzine Hcl 25 Mg Tablet) 25 mg PO Q6H PRN PRN Reason: Anxiety Last Admin: 07/04/24 14:48 Dose: 25 mg Ibuprofen (Ibuprofen 600 Mg Tablet) 600 mg PO Q6H PRN PRN Reason: Pain, Severe (Pain Scale 7-10) Last Admin: 07/04/24 12:39 Dose: 600 mg Lactulose (Lactulose 20 Gm/30 Ml Solution) 40 gm PO DAILY [facility] Last Admin: 07/04/24 12:22 Dose: Not Given Lidocaine (Lidocaine 4 % Patch Adh..Patch) 1 patch TRANSDERMA DAILY [facility]; Protocol Last Admin: 07/04/24 09:02 Dose: 1 patch Lidocaine HCl (Lidocaine Hcl 2 % Urojet 10 Ml Jel.Pf.Luis) 10 ml TOPICAL BID PRN PRN Reason: Pain, Severe (Pain Scale 7-10) Last Admin: 06/19/24 22:05 Dose: 10 ml [place] Carbonate ([place] Carbonate Er 300 Mg Tablet.Er) 300 mg PO BEDTIME [facility] Last Admin: 07/04/24 20:16 Dose: 300 mg Loperamide HCl (Loperamide Hcl 2 Mg Capsule) 2 mg PO Q4H PRN PRN Reason: Diarrhea Magnesium Hydroxide (Milk Of Magnesia 30 Ml Oral.Susp) 30 ml PO DAILY PRN PRN Reason: Constipation Last Admin: 06/04/24 05:22 Dose: 30 ml Multi-Ingred Cream/Lotion/Oil/Oint (Mineral Oil/Petrolatum,White 106 Gm Tube) 1 appl TOPICAL BID PRN; Protocol PRN Reason: Dry Skin Last Admin: 06/13/24 21:44 Dose: 1 appl Patient Own (Belbuca (75mcg Buccal Films)) 1 each PO BID [facility] Last Admin: 07/04/24 21:39 Dose: 1 each Ondansetron HCl (Ondansetron Odt 4 Mg Tab.Rapdis) 4 mg TRANSLINGU Q6H PRN PRN Reason: Nausea and Vomiting Last Admin: 06/18/24 16:17 Dose: 4 mg Polyethylene Glycol (Polyethylene Glycol 3350 17 Gm Powd.Pack) 17 gm PO BID [facility] Last Admin: 07/04/24 22:41 Dose: Not Given Quetiapine Fumarate (Quetiapine Fumarate 50 Mg Tablet) 150 mg PO BEDTIME [facility] Last Admin: 07/04/24 21:32 Dose: 150 mg Senna/Docusate Sodium (Sennosides/Docusate Sodium Tablet) 2 tab PO BID [facility] Last Admin: 07/04/24 22:41 Dose: Not Given Simethicone (Simethicone 80 Mg Tab.Chew) 160 mg PO BID PRN PRN Reason: bloating/gas Last Admin: 06/07/24 11:06 Dose: 160 mg Tamsulosin HCl (Tamsulosin Hcl 0.4 Mg Capsule) 0.4 mg PO BEDTIME [facility] Last Admin: 07/04/24 21:32 Dose: 0.4 mg Allergies Allergies Allergy/AdvReac Type Severity Reaction Status Date / Time azithromycin Allergy Itching Verified 06/21/24 12:35 levofloxacin [From Levaquin] Allergy Nightmare Verified 06/21/24 12:35 nitrofurantoin Allergy Itching Verified 06/21/24 12:35 [From Macrodantin] Assessment & Plan Assessment & Plan (1) MDD (major depressive disorder), recurrent episode, moderate: Status: Acute Code(s): F33.1 - Major depressive disorder, recurrent, moderate (2) PTSD (post-traumatic stress disorder): Status: Acute Code(s): F43.10 - Post-traumatic stress disorder, unspecified (3) Voiding dysfunction: Status: Acute Code(s): N39.8 - Other specified disorders of urinary system Assessment and Plan: She has no urinary concerns at this time No further antibiotics for now (4) Urinary retention: Status: Acute Code(s): R33.9 - Retention of urine, unspecified (5) Jennifer-Danlos disease: Status: Acute Code(s): Q79.60 - Jennifer-Danlos syndrome, unspecified (6) Osteogenesis imperfecta: Status: Acute Code(s): Q78.0 - Osteogenesis imperfecta (7) Myofascial pain syndrome: Status: Acute Code(s): M79.18 - Myalgia, other site Plan HPI: Patient is a 39-year-old female with history of Jennifer Danlos syndrome, osteogenesis imperfecta, myofascial pain syndrome, migraines, juvenile osteoporosis, asthma, and mood disorder with history of rectocele, vaginal mesh surgery, urinary retention requiring Van catheterization, which was recently restarted. Patient?presented?to?[facility]?on?924?following?intentional?overdose?on?muscle?relaxers.??Patient?however?was?immediately?transferred?to?medical?floor?for?urinary?retention;?she?stabilized?there?and?was?discharged.?? She?presents?again?for?overdose On?gabapentin?and?trazodone,?Which?she?asserts?was?not?intentional (though later admits it was),?saying?she?just?wanted?to?sleep?and?get?relief?from?chronic?pain However?she?agrees?it?was?impulsive?and?unsafe.??Patient?currently?denies?any?SI.??She?reports?however?that?life?has?been?very?difficultff?pain?medications,?having?been?prescribed?opioids?consistently?for?the?past?24?years,? as?well?as?Ativan.??Patient?agrees?she?needs Help?stabilizing?and?coping. Relevant Medical/psych History: Patient was on opiates scheduled for 24 years to manage chronic medical comorbidities, resulting in hx of multiple fractures/falls and subsequent chronic pain. Pt denies any hx of substance abuse, including cannabis. She did screen positive for Fentanyl at first admission in October 2024 but is adamant she's never used it in her life and no quantitative labs done (leaving Fentanyl use inconclusive). Patients long-time physician of [address] Brigido Dietrich retired and new PCP tapered her off and discontinued all opioid pain management (also tapered and dc'd ativan). Patient reports she has been in constant pain and discomfort since then and has felt very frustrated and challenged to enjoy life, sometimes challenging her desire to live. Discussed?case?with?[employer] CONSULTANT Vianey Dunaway from pain management clinic: pt seen on 05/24. [employer] CONSULTANT Gume agrees that patients medical comorbidities and subsequent chronic pain syndrome are commonly treated with opioid pain management. She recommends either Butrans patch or preferably [place] films (a form of Buprenorphin and titrating it to 150mg BID). Pt is also appropriate to get other nerve blocking treatments at pain clinic who will f/u with pt. Inspector Final Assembly Conveyor Line spoke with patient's PCP Dr. Rubio at [facility] Dr. Rubio reports concurs that patient has Osteogenesis imprefecta, Ehlos Danlos Pt was on opioids for 24 years with prior PCP. With [facility] she was on Oxycodine 30mg QID and Oxycontin 30mg daily. In Sep 2023 pt was admitted to [facility] for concern for overdose. Additionally, there were other concerns including that [facility] notes referenced that patient reported being on a Fentanyl patch, which this provider had never prescribed. Additionally, there was hx of patient needing refills early and a report that her mother had used some of her medications. Also patient had significant weight loss which provider was concerned might have contributed to possible accidental overdose. Because of these concerns provider, clinic repeatedly called patient to come in and discuss pain management and reportedly reached out to her from October until January however patient did not respond or come in for appointments, having missed several. Provider reports that because of lack of communication and ongoing concern that was never addressed, Provider felt it was necessary to taper patient off pain medication which was started in January; patient was also tapered off Ativan. Provider agrees that patient does have significant medical history that is commonly treated with chronic pain medication. Inspector Final Assembly Conveyor Line discussed options with them and Dr. Rubio agrees that starting patient on a buprenorphine product is an acceptable alternative to oxycodone. Vraylar since depressed and hx of manic-esque IMPRESSION: Patient's?depression?and?SI?seem?to?have significant?situational component?as?she?is?No?longer?receiving?pain?management?for?severe,?chronic?pain. Patient?has?no?known?history?of?substance?abuse.??Although?she?did?screen?positive?for?fentanyl (on?10/27/2023 and?05/18/2024), No?quantitative?analysis?was?done. ?This?mean that?fentanyl?screen?could?very?well?be?a?false-positive?result (which is not uncommon). Medical?decision?should?not?be?based?on?only?a?positive?screen?for?fentanyl. Patient does struggle with SI and with her chronic?pain?And?poor?support?will?likely?continue?to?produce?mood?instability.??Treatment?plan?will?include?typewriter operator automatic/team?discussion?with Outpatient?PCP?regarding?plan?for?treatment. Hospital course: 06/05: Continue current regimen and plans 06/06. Continue current plans and regimen. Loperamide was put on hold. Started on simethicone by hospitalist. No indications of GI bleeding currently. -seen by GI: C/o constipation and worsening abdominal distension. Will order CT A/P with IV/PO contrast to assess for SBO/ileus though passage of gas and small amount of stool argues against complete obstruction; however she is at risk given multiple surgeries. If no obstruction will order bowel regimen to address constipation. Continue Van, Urology following. 06/07 Patient reports that she is depressed. She apologized for not being more forthcoming earlier on in says it took her awhile to admitted to herself but she does not want to be in this world anymore... And has a plan to jump in front of a train on discharge. Patient also reports that overdose on trazodone/gabapentin was actually an intentional suicide attempt. She reports a constant deluge of self-deprecating thoughts which include that she is worthless, discussed in, and fat. 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 Despite her SI, patient does want help getting better agrees to try antidepressant medication; typewriter operator automatic reviewed options and risks/side effects and patient with [facility]. Also discussed pain medication management and patient agrees with Belbuca which she has heard of; she also agrees to non opioid pain management and will follow-up with pain management Clinic here at [facility]. Discussed relationship with her mother and she does not SA think her mother struggles with drug addiction but has caught her trying to get into her room, which patient keeps locked, looking for her medications which she has taken in the past. Patient said she reported this to her PCP. Patient does have history of being prescribed fentanyl patch however she did not like them and weaned herself off of them; set had some left over 06/08 Patient remains depressed with suicidal thinking however is trying to be hopeful and has tolerated Vraylar and says will continue, with increased dose; grateful for help getting Belbuca through prior authorization. -Discussed case with urology who recommends remaining with indwelling Van since failed voiding attempt on 06/03; will continue to follow -pt reported and nurse corroborated that Van bag containing urine was blood-tinged; discussed with Urologist, deemed likely micro trauma, and to keep van in place; recently failed voiding trial on 06/03 06/09 Patient reports she remains depressed, with SI. Patient also reports she had a very difficult time sleeping last night feeling very upset following a conversation she had on the phone with her mother. Patient expressed to her mother she is feeling hurt that her mom has not visited or called throughout her admission, even on patient's birthday; she says her mom was on apologetic. Patient also challenged her mom regarding her mom's past comment that patient could burn in hell with her father (who 2 years ago); mom remained unapologetic. Patient tells typewriter operator automatic she has no idea why her mom said this other than that her mom is crazy... Subsequently patient reports that throughout the night, she had racing thoughts and no sleep. Discussed medications and patient and pt is eager to try Belbuca Films for pain management, available today dc'd gabapentin; pt said has never helped for pain or anxiety Adding clonidine at bedtime to help w/ sleep, anxiety 06/10 patient reports that Belbuca is helping with pain Patient remains very depressed and continues to have suicidal thoughts, saying she wants to end her life when she leaves the hospital. Patient Says I do not understand myself.. And laments she is gone most of her life without any suicidal ideation and only started this past September. Patient shared about some other reasons that it might be occurring and agrees that she still mourning the loss of her father who was her confidante; dealing with chronic pain having been off pain medications for several months and the ongoing struggles in her relationship with her mother and brother whom she feels are bullying; trying to come to terms with the fact that her mother simply isn't going to be the kind of mother she wishes she had. Patient agrees to medication management. 06/13 still very depressed with SI. Sleeping better however which is helpful and pain medications are also helpful. Patient agrees to increasing Vraylar; agrees to behavioral activation and attending groups. Despite ongoing thoughts about self-harm and ending her life when she is discharge, patient is also future oriented and says she would like to find a new place to live separate from her mother and brother. Asks for help going about that. 06/14 pt remains depressed, positive for SI with a plan but also future oriented talking about changing her living situation. Pt is engaged in treatment, trying to process her suicidal feelings and trying to be hopeful it will resolve. Agrees to adding Wellbutrin. -will likely add Wellbutrin; however, will probably keep Vraylar (maybe at lower dose) since pt has hx of manic-esque episodes (thought not formally diagnosed with bipolar as episode had several contributory factors) 06/15 remains depressed but processing feelings, doing worksheets, talking about her mother. Pt very anxious. -may increase wellbutrin for depression -considered starting Clonazepam 0.5mg BID; pt used to be on as much as 5mg of ativan daily; was weened off so hesitant to restart benzo's; 06/17 increase Wellbutrin 06/20 Over the weekend, patient assessed for infection, starting antibiotic; concerned that indwelling Van catheter is not sustainable; urology consulted and plan was for suprapubic catheter insertion for today. Patient however did not get fully informed of this and was upset to learn that a procedure was planned. She was however able to discuss this at length with typewriter operator automatic and urology team and agreed to proceed. 06/21 Dr. Niño decided better to do a cystoscopy 1st and then decide whether not suprapubic catheter verse bladder stimulator; patient consents Seen by infectious disease: She has no urinary concerns at this time..No further antibiotics for now 06/22 Patient discussed conversation she had with her brother that was reassuring. Patient felt understood by him and supported which has lifted her mood. She feels that although she still depressed perhaps some of the depression is lifting and she starting to feel that there is hope of change in her situation. Patient remains very anxious. Earlier she had said she did not want to get back on benzodiazepines, having been on Ativan 5 mg for decades, weaned off only about a year ago. However given patient's struggles with anxiety and the fact that benzos have helped her in the past, discussed restarting a benzodiazepine, this time clonazepam 0.5 mg b.i.d.; typewriter operator automatic discussed at length risks for addiction and the constant desire to have more. Patient said she very much does not want that to happen and feels that she will be able to minimize her use 06/23 Depressed, with intermittent SI. very anxious and with despairing thoughts has upcoming anniversary of her father's which is this July 03; will try to make it remembrance day and change the perspective. -Feeling better about catheter and plan; typewriter operator automatic discussed with urology who met with patient and plan is for July 05 to move forward with stimulator -patient attending groups and engaged in treatment 06/24 a little better; mood up and down and still intermittent SI but patient is working on being hopeful employee numerous coping skills. Agrees to increase Wellbutrin 06/25 Patient continues to report depressed mood; told nurse that she remains purging daily and still plans to attempt suicide when she leaves. However on the unit, she seems more relaxed. Patient shared with typewriter operator automatic her plan to remember her father on the anniversary of his . 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 Currently she is eating enough. As this is a chronic problem that that has gone on for over 20 years, and with which patient has been able to cope with on her own, without needing hospitalizations or [facility] admissions since teenage years, typewriter operator automatic does not expect that it will resolve during this inpatient stay and does not believe that it needs to. 06/27 very tearful sad; suicidal; pushing self to be around others, groups -talked about eating struggles, purging; trying not to 06/28 do not think that medication management will change patients depression at this time. Rather she needs continued time to process her feelings of despair, grief about her fathers , hx of trauma, feeling her future is bleak. -typewriter operator automatic engaged in psychodynamic psychotherapy 06/29 same presentation; typewriter operator automatic engaged in psychodynamic psychotherapy 06/30: feels clonidine and klonopin helpful for anxiety. asking for pain med change; deferred for return of attending, does not appear in pain. Q5s for SI/van. nursing staff development coordinator feel pt is not substantially worse than her recent inpatient baseline, but perhaps looking a bit better today than yesterday. 07/01: appears behaving as per usual for inpatient context. increase seroquel to 150 QHS for insomnia and appetite stimulation. continue current mgmt otherwise. 07/02: Continues depressed with suicidal thoughts. Says she wants to starve self. VSS. Check metabolic panel. 07/04 Patient continues to lament her past and anger and frustration with specific relationships. Says still feels hopeless can not stop thinking about ending her life. Discussed more about taking responsibility for feelings and while anger and frustration at others can be appropriate, it is also necessary to work on coping with such feelings. Patient said she will continue to try. Discussed history and patient has not really had SI till this October and discussed how these feelings will also pass... Discussed medication management and patient agreed to trial of lithium for continued depression and chronic SI. and increasing Vraylar -patient considers ending her life by starving herself though she has been eating on the unit. -discussed surgical implantation of bladder stimulator tomorrow 07/05 received?bladder?stimulator;?remains?with?indwelling?catheter?which?will?be?removed?tomorrow?or?the?following?day. -increased?Vraylar?to?6?mg PLAN: CV? Q 5s due to?indwelling?Van Continue clonazepam 0.5 mg b.i.d. Increase to WEllbutrin XL 450 mg for continued depression (pt adamant about not starting anti-depressant with risk of wt gain) Continue Vraylar 6 mg daily (Vraylar chosen since patient has depression but also history of manic type behaviors, possibly manic episode with some delusions and AH) Continue [address] films BID for pain management (history of fentanyl patch, morphine, oxycodone, OxyContin) clonidine prn Continue Flagyl 500 q.12 hours x7 days placed for bacterial vaginosis; id examined patient and reports no need for any additional antibiotic regimen Urology appointment: July 05 for placement of bladder stimulator (With Dr. Leiva) Cystoscopy Findings: Bladder wall thickening, no vaginal or bladder mesh, no evidence outlet obstruction Hospitalist note 06/18 Receiving Pyridium UA 06/18 positive for 4+ bacteria, greater than 50 WBC, large leukocyte esterase positive nitrates Urine culture pending Urine culture 05/25 and 06/01 grew Raissa glabrata patient received Diflucan 200 mg daily from 06/01 through 06/15 Bacterial vaginosis PCR positive Raissa grew size/glabrata detected Due to persistent symptoms of vaginal pain/discharge recommend Infectious Disease consultation Follow urine culture. Patient educated on: diagnosis, medication risk/benefits and medical condition Patient educated on: diagnosis, medication risk/benefits and medical condition Informed Consent: understands Reason for continued inpatient stay Substantial Risk for: rapid decompensation and med/psych decompensation Time Spent With Patient Time: Total time managing care of this patient today ____ minutes.
[2024-07-05] MEDS: clonazePAM 0.5 MG TABLET PO (17:20)
[2024-07-05] MEDS: Cariprazine HCl 3 MG CAPSULE 6 MG PO (17:23)
[2024-07-05] MEDS: BUPRENORPHINE 75 MCG 1 EACH PO (19:13)
[2024-07-05 20:00] VITALS: BP 138/81; PULSE 67; TEMP 36.4; O2SAT 100
[2024-07-05] MEDS: Ibuprofen 600 MG TABLET PO (20:10)
[2024-07-05] MEDS: Lithium Carbonate ER 300 MG TABLET.ER PO (22:03)
[2024-07-05] MEDS: QUEtiapine Fumarate 50 MG TABLET 150 MG PO (22:03)
[2024-07-05] MEDS: Tamsulosin HCL 0.4 MG CAPSULE PO (22:03)
[2024-07-05] MEDS: hydrOXYzine HCL 25 MG TABLET PO (22:03)
[2024-07-05 22:04] VITALS: BP 149/97
[2024-07-05] MEDS: cloNIDine HCL 0.1 MG TABLET PO (22:04)
[2024-07-06] MEDS: Ibuprofen 600 MG TABLET PO ×3 (02:29→16:04)
--- NOTE | 2024-07-06 06:56 | PC.NURSE ---
The rep for the bladder stimulator called to check on Joselin. She identified herself as Alysa and gave her phone number: [phone]. She said due to Joselin's pain the stimulator was not turned on. Thursday07/06/24 the surgeon would be evaluating patient and the decision to activate the stimulate would be made. If staff has questions Alysa is available via her telephone.
[2024-07-06] MEDS: Acetaminophen 325 MG TABLET 650 MG PO ×2 (07:20→15:00)
[2024-07-06] MEDS: hydrOXYzine HCL 25 MG TABLET PO (07:20)
[2024-07-06 07:21] VITALS: BP 111/70
[2024-07-06] MEDS: cloNIDine HCL 0.1 MG TABLET PO ×2 (07:21→22:21)
[2024-07-06 08:00] VITALS: BP 146/84; PULSE 80; RESP 18; TEMP 36.4; O2SAT 100
[2024-07-06] MEDS: buPROPion HCl XL 150 MG TAB.ER.24H 450 MG PO (08:29)
[2024-07-06] MEDS: Ascorbic Acid 500 MG TABLET 1000 MG PO (08:30)
[2024-07-06] MEDS: Cariprazine HCl 3 MG CAPSULE 6 MG PO (08:31)
[2024-07-06] MEDS: clonazePAM 0.5 MG TABLET PO ×2 (08:31→16:04)
[2024-07-06] MEDS: Sulfamethox/Trimeth 800/160 TABLET 1 TAB PO ×2 (08:31→22:15)
[2024-07-06] MEDS: BUPRENORPHINE 75 MCG 1 EACH PO (08:32)
--- NOTE | 2024-07-06 10:07 | PC.NURSE ---
This commercial insurance underwriter received a phone call from bladder stimulator rep Alysa at [phone]. Per Alysa, pt had two leads placed on the right and left side of her lower back, which were both tunneled further due to the need for a trial . Alysa stated pt reported high discomfort yesterday, and as a result the stimulator was not turned on post op. Alysa provided instructions to turn stimulator on after pt reports a decrease in pain compared to yesterday's level. Alysa stated there are two remotes that control the right side and left side. Instructions provided to press the middle button to connect and search for the patient. After the remote is done searching, press the up arrow until she feels it, which should be the second or third light . Alysa also stated the need to connect daily. Following phone call, message left for Dr. Conner to inquire when pt would be seen today, and the need for clarification on plan for stimulator and trial. Per Dr. Conner, pt will be seen today.
[2024-07-06 11:56] VITALS: BP 111/75; PULSE 82; RESP 14; TEMP 36.9; O2SAT 97
--- NOTE | 2024-07-06 16:24 | PC.NURSE ---
Dr. Conner at bedside to assess patient. Per Dr. Conner, provider will be back to assess patient tomorrow and will turn on bladder stimulator at that time. Continue to encourage ambulation.
[2024-07-06 20:00] VITALS: BP 114/77; PULSE 91; TEMP 36.7; O2SAT 99
[2024-07-06 21:15] VITALS: BP 136/72; PULSE 82; TEMP 36.6
--- NOTE | 2024-07-06 21:39 | P.PNPSI_ITS ---
Subjective Subjective Date of Service: 07/06/24 Reason For Visit: Sa Interim History: Met?with?patient;?discussed?with?team;?discussed?with?urologist? P atient?complaining?of?pain;?will?consider?tramadol;?discussed?case?with?urologis t?who?will?help?nursing W ith?use?of?bladder?stimulator?and?when?to?straight?cath?following?removal?of?ind welling?Van.??Patient?continues?to?report F eeling?suicidal?and?though?intermittently?say?things?like?she?will?just?starve?h erself?to?.??Patient?says S he?does?not?want?to?feel?this?way?but?the?thoughts?remain.??She?also?remains?fut ure?oriented,?glad?to?have P tracey?for?Van?to?be?removed?and?wanting?to?move?out?of?her?current?living?situat ion. Mental Status Exam Mental Status Exam Narrative: Pt is alert and oriented; behavior is cooperative, calm, friendly; cachectic; dressed in hospital attire with adequate hygiene; mood is described as depressed and affect congruent, downcast; eye contact appropriate; Speech is a normal rate, volume and prosody; no psychomotor retardation present; thought process is organized and goal directed; Thought content is intermittently on hopeless thoughts; medical comorbidities; otherwise pertinent to relevant topics and without any delusional content, paranoid ideations or grandiosity; intermittent SI thoughts, sometimes passive sometimes with vague plan; no HI. There is no evidence of perceptual disturbance. Patients insight and judgment impaired Diagnostics Vital Signs (24Hr): Vital Signs - 24 hr 07/05/24 22:04 07/06/24 07:21 07/06/24 08:00 Temperature 97.6 F Pulse Rate 80 Respiratory Rate 18 Blood Pressure 149/97 H 111/70 146/84 H Pulse Oximetry 100 Oxygen Delivery Method Room Air 07/06/24 11:56 Temperature 98.4 F Pulse Rate 82 Respiratory Rate 14 Blood Pressure 111/75 Pulse Oximetry 97 Oxygen Delivery Method Room Air BMI result Body Mass Index 17.2 Labs 07/07/24 14:53 07/07/24 14:53 Imaging Radiology Impressions: ITS Impressions KUB X-Ray 06/03/24 19:55 IMPRESSION: Increased amount of stool in the colon suggesting constipation. Please correlate with clinical presentation. Electronically signed by: Oneida Pham MD 06/04/2024 07:31 AM EDT RP Renal Ultrasound 06/04/24 14:49 IMPRESSION: No ultrasound evidence of renal obstruction or hydronephrosis. Limited visualization of the left kidney obscured by bowel gas, exam otherwise unremarkable. Electronically signed by: Oneida Pham MD 06/05/2024 12:56 PM EDT RP Abdomen/Pelvis CT 06/04/24 18:33 IMPRESSION: Severe constipation. Otherwise unremarkable CT abdomen and pelvis. Fleischner guidelines were followed. Electronically signed by: Deyvi Collins MD 06/04/2024 07:05 PM EDT RP Ribs X-Ray 06/19/24 10:15 IMPRESSION: 1. Mild degenerative changes of the left shoulder. 2. No left-sided rib fracture. Electronically signed by: Orlando Lindsey MD 06/19/2024 10:50 AM EDT RP Shoulder X-Ray 06/19/24 10:15 IMPRESSION: 1. Mild degenerative changes of the left shoulder. 2. No left-sided rib fracture. Electronically signed by: Orlando Lindsey MD 06/19/2024 10:50 AM EDT RP Medications Medications Current Medications Acetaminophen (Acetaminophen 325 Mg Tablet) 650 mg PO Q8H [facility] Last Admin: 07/06/24 15:00 Dose: 650 mg Al Hydroxide/Mg Hydroxide (Magnesium Hydrox/Alum Hydrox 30 Ml Oral.Susp) 30 ml PO Q6H PRN PRN Reason: Heartburn/Nausea Albuterol Sulfate (Albuterol Sulfate 90 Mcg 8 Gm Inhaler) 2 puff INHALE QID PRN PRN Reason: Shortness Of Breath Ascorbic Acid (Ascorbic Acid 500 Mg Tablet) 1,000 mg PO DAILY [facility] Last Admin: 07/06/24 08:30 Dose: 1,000 mg Benzocaine (Throat Lozenge, Medicated Lozenge) 1 lozenge MUCOUS MEM Q2H PRN PRN Reason: Sore Throat Last Admin: 06/30/24 22:42 Dose: 1 lozenge Bisacodyl (Bisacodyl 5 Mg Tablet.Dr) 10 mg PO BEDTIME [facility] Last Admin: 07/05/24 22:09 Dose: Not Given Bupropion HCl (Bupropion Hcl Xl 150 Mg Tab.Er.24h) 450 mg PO DAILY [facility] Last Admin: 07/06/24 08:29 Dose: 450 mg Cariprazine (Cariprazine Hcl 3 Mg Capsule) 6 mg PO DAILY [facility] Last Admin: 07/06/24 08:31 Dose: 6 mg Clonazepam (Clonazepam 0.5 Mg Tablet) 0.5 mg PO BID@0900,1700 [facility] Last Admin: 07/06/24 16:04 Dose: 0.5 mg Clonidine HCl (Clonidine Hcl 0.1 Mg Tablet) 0.1 mg PO BEDTIME [facility]; Protocol Last Admin: 07/05/24 22:04 Dose: 0.1 mg Clonidine HCl (Clonidine Hcl 0.1 Mg Tablet) 0.1 mg PO Q4H PRN; Protocol PRN Reason: anxiety Last Admin: 07/06/24 07:21 Dose: 0.1 mg Hydroxyzine HCl (Hydroxyzine Hcl 25 Mg Tablet) 25 mg PO Q6H PRN PRN Reason: Anxiety Last Admin: 07/06/24 07:20 Dose: 25 mg Ibuprofen (Ibuprofen 600 Mg Tablet) 600 mg PO Q6H PRN PRN Reason: Pain, Severe (Pain Scale 7-10) Last Admin: 07/06/24 16:04 Dose: 600 mg Lactulose (Lactulose 20 Gm/30 Ml Solution) 40 gm PO DAILY [facility] Last Admin: 07/06/24 08:32 Dose: Not Given Lidocaine (Lidocaine 4 % Patch Adh..Patch) 1 patch TRANSDERMA DAILY [facility]; Protocol Last Admin: 07/06/24 08:33 Dose: Not Given Lidocaine HCl (Lidocaine Hcl 2 % Urojet 10 Ml Jel.Pf.Luis) 10 ml TOPICAL BID PRN PRN Reason: Pain, Severe (Pain Scale 7-10) Last Admin: 06/19/24 22:05 Dose: 10 ml [place] Carbonate ([place] Carbonate Er 300 Mg Tablet.Er) 300 mg PO BEDTIME [facility] Last Admin: 07/05/24 22:03 Dose: 300 mg Loperamide HCl (Loperamide Hcl 2 Mg Capsule) 2 mg PO Q4H PRN PRN Reason: Diarrhea Magnesium Hydroxide (Milk Of Magnesia 30 Ml Oral.Susp) 30 ml PO DAILY PRN PRN Reason: Constipation Last Admin: 06/04/24 05:22 Dose: 30 ml Multi-Ingred Cream/Lotion/Oil/Oint (Mineral Oil/Petrolatum,White 106 Gm Tube) 1 appl TOPICAL BID PRN; Protocol PRN Reason: Dry Skin Last Admin: 06/13/24 21:44 Dose: 1 appl Patient Own (Belbuca (75mcg Buccal Films)) 1 each PO BID [facility] Last Admin: 07/06/24 08:32 Dose: 1 each Ondansetron HCl (Ondansetron Odt 4 Mg Tab.Rapdis) 4 mg TRANSLINGU Q6H PRN PRN Reason: Nausea and Vomiting Last Admin: 06/18/24 16:17 Dose: 4 mg Polyethylene Glycol (Polyethylene Glycol 3350 17 Gm Powd.Pack) 17 gm PO BID [facility] Last Admin: 07/06/24 08:32 Dose: Not Given Quetiapine Fumarate (Quetiapine Fumarate 50 Mg Tablet) 150 mg PO BEDTIME [facility] Last Admin: 07/05/24 22:03 Dose: 150 mg Senna/Docusate Sodium (Sennosides/Docusate Sodium Tablet) 2 tab PO BID [facility] Last Admin: 07/06/24 08:32 Dose: Not Given Simethicone (Simethicone 80 Mg Tab.Chew) 160 mg PO BID PRN PRN Reason: bloating/gas Last Admin: 06/07/24 11:06 Dose: 160 mg Tamsulosin HCl (Tamsulosin Hcl 0.4 Mg Capsule) 0.4 mg PO BEDTIME [facility] Last Admin: 07/05/24 22:03 Dose: 0.4 mg Trimethoprim/Sulfamethoxazole (Sulfamethox/Trimeth 800/160 Tablet) 1 tab PO Q12H [facility] Last Admin: 07/06/24 08:31 Dose: 1 tab Allergies Allergies Allergy/AdvReac Type Severity Reaction Status Date / Time azithromycin Allergy Itching Verified 06/21/24 12:35 levofloxacin [From Levaquin] Allergy Nightmare Verified 06/21/24 12:35 nitrofurantoin Allergy Itching Verified 06/21/24 12:35 [From Macrodantin] Assessment & Plan Assessment & Plan (1) MDD (major depressive disorder), recurrent episode, moderate: Status: Acute Code(s): F33.1 - Major depressive disorder, recurrent, moderate (2) PTSD (post-traumatic stress disorder): Status: Acute Code(s): F43.10 - Post-traumatic stress disorder, unspecified (3) Voiding dysfunction: Status: Acute Code(s): N39.8 - Other specified disorders of urinary system Assessment and Plan: She has no urinary concerns at this time No further antibiotics for now (4) Urinary retention: Status: Acute Code(s): R33.9 - Retention of urine, unspecified (5) Jennifer-Danlos disease: Status: Acute Code(s): Q79.60 - Jennifer-Danlos syndrome, unspecified (6) Osteogenesis imperfecta: Status: Acute Code(s): Q78.0 - Osteogenesis imperfecta (7) Myofascial pain syndrome: Status: Acute Code(s): M79.18 - Myalgia, other site Plan HPI: Patient is a 39-year-old female with history of Jennifer Danlos syndrome, osteogenesis imperfecta, myofascial pain syndrome, migraines, juvenile osteoporosis, asthma, and mood disorder with history of rectocele, vaginal mesh surgery, urinary retention requiring Van catheterization, which was recently restarted. P atient?presented?to?[place]?on?924?following?intentional?overdose?on?muscle?rel axers.??Patient?lujan mary?was?immediately?transferred?to?medical?floor?for?urinary?retention;?she?stab ilized?there?and?was?discharged.?? She?presents?again?for?overdose On?gabapentin?and?trazodone,?Which?she?asserts?was?not?intentional (though later admits it was),?saying?she?just?wanted?to?sleep?and?get?relief?from?chronic?pain H owever?she?agrees?it?was?impulsive?and?unsafe.??Patient?currently?denies?any?SI. ??She?reports?howeve r?that?life?has?been?very?difficultff?pain?medications,?having?been?prescribed?o pioids?consistently?for?the?past?24?years,? as?well?as?Ativan.??Patient?agrees?she?needs Help?stabilizing?and?coping. Relevant Medical/psych History: Patient was on opiates scheduled for 24 years to manage chronic medical comorbidities, resulting in hx of multiple fractures/falls and subsequent chronic pain. Pt denies any hx of substance abuse, including cannabis. She did screen positive for Fentanyl at first admission in October 2024 but is adamant she's never used it in her life and no quantitative labs done (leaving Fentanyl use inconclusive). Patients long-time physician of [address] Brigido Dietrich retired and new PCP tapered her off and discontinued all opioid pain management (also tapered and dc'd ativan). Patient reports she has been in constant pain and discomfort since then and has felt very frustrated and challenged to enjoy life, sometimes challenging her desire to live. Discussed?case?with?BISCUIT PACKER Vianey Dunaway from pain management clinic: pt seen on 05/24. MAGDA Dunaway agrees that patients medical comorbidities and subsequent chronic pain syndrome are commonly treated with opioid pain management. She recommends either Butrans patch or preferably Belbucha films (a form of Buprenorphin and titrating it to 150mg BID). Pt is also appropriate to get other nerve blocking treatments at pain clinic who will f/u with pt. Resident Manager spoke with patient's PCP Dr. Rubio at [facility] Dr. Rubio reports concurs that patient has Osteogenesis imprefecta, Ehlos Danlos Pt was on opioids for 24 years with prior PCP. With [facility] she was on Oxycodine 30mg QID and Oxycontin 30mg daily. In Sep 2023 pt was admitted to [facility] for concern for overdose. Additionally, there were other concerns including that [facility] notes referenced that patient reported being on a Fentanyl patch, which this provider had never prescribed. Additionally, there was hx of patient needing refills early and a report that her mother had used some of her medications. Also patient had significant weight loss which provider was concerned might have contributed to possible accidental overdose. Because of these concerns provider, clinic repeatedly called patient to come in and discuss pain management and reportedly reached out to her from October until January however patient did not respond or come in for appointments, having missed several. Provider reports that because of lack of communication and ongoing concern that was never addressed, Provider felt it was necessary to taper patient off pain medication which was started in January; patient was also tapered off Ativan. Provider agrees that patient does have significant medical history that is commonly treated with chronic pain medication. Resident Manager discussed options with them and Dr. Rubio agrees that starting patient on a buprenorphine product is an acceptable alternative to oxycodone. Vraylar since depressed and hx of manic-esque IMPRESSION: Patient's?depression?and?SI?seem?to?have significant?situational component?as?she?is?No?longer?receiving?pain?management?for?severe,?chronic?pain . P atient?has?no?known?history?of?substance?abuse.??Although?she?did?screen?positiv e?for?fentanyl (on?10/27/2023 and?05/18/2024), No?quantitative?analysis?was?done. ?This?mean that?fentanyl?screen?could?very?well?be?a?false-positive?result (which is not uncommon). Medical?decision?should?not?be?based?on?only?a?positive?screen?for?fentanyl. Patient does struggle with SI and with her chronic?pain?And?poor?support?will?likely?continue?to?produce?mood?instability.? ?Treatment?plan?will?include?typewriter ribbon winder/team?discussion?with Outpatient?PCP?regarding?plan?for?treatment. Hospital course: 06/05: Continue current regimen and plans 06/06. Continue current plans and regimen. Loperamide was put on hold. Started on simethicone by hospitalist. No indications of GI bleeding currently. -seen by GI: C/o constipation and worsening abdominal distension. Will order CT A/P with IV/PO contrast to assess for SBO/ileus though passage of gas and small amount of stool argues against complete obstruction; however she is at risk given multiple surgeries. If no obstruction will order bowel regimen to address constipation. Continue Van, Urology following. 06/07 Patient reports that she is depressed. She apologized for not being more forthcoming earlier on in says it took her awhile to admitted to herself but she does not want to be in this world anymore... And has a plan to jump in front of a train on discharge. Patient also reports that overdose on trazodone/gabapentin was actually an intentional suicide attempt. She reports a constant deluge of self-deprecating thoughts which include that she is worthless, discussed in, and fat. 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 Despite her SI, patient does want help getting better agrees to try antidepressant medication; typewriter ribbon winder reviewed options and risks/side effects and patient with Vraylar. Also discussed pain medication management and patient agrees with Belbuca which she has heard of; she also agrees to non opioid pain management and will follow-up with pain management Clinic here at [place]. Discussed relationship with her mother and she does not SA think her mother struggles with drug addiction but has caught her trying to get into her room, which patient keeps locked, looking for her medications which she has taken in the past. Patient said she reported this to her PCP. Patient does have history of being prescribed fentanyl patch however she did not like them and weaned herself off of them; set had some left over 06/08 Patient remains depressed with suicidal thinking however is trying to be hopeful and has tolerated Vraylar and says will continue, with increased dose; grateful for help getting Belbuca through prior authorization. -Discussed case with urology who recommends remaining with indwelling Van since failed voiding attempt on 06/03; will continue to follow -pt reported and nurse corroborated that Van bag containing urine was blood- tinged; discussed with Urologist, deemed likely micro trauma, and to keep van in place; recently failed voiding trial on 06/03 06/09 Patient reports she remains depressed, with SI. Patient also reports she had a very difficult time sleeping last night feeling very upset following a conversation she had on the phone with her mother. Patient expressed to her mother she is feeling hurt that her mom has not visited or called throughout her admission, even on patient's birthday; she says her mom was on apologetic. Patient also challenged her mom regarding her mom's past comment that patient could burn in hell with her father (who 2 years ago); mom remained unapologetic. Patient tells typewriter ribbon winder she has no idea why her mom said this other than that her mom is crazy... Subsequently patient reports that throughout the night, she had racing thoughts and no sleep. Discussed medications and patient and pt is eager to try Belbuca Films for pain management, available today dc'd gabapentin; pt said has never helped for pain or anxiety Adding clonidine at bedtime to help w/ sleep, anxiety 06/10 patient reports that Belbuca is helping with pain Patient remains very depressed and continues to have suicidal thoughts, saying she wants to end her life when she leaves the hospital. Patient Says I do not understand myself.. And laments she is gone most of her life without any suicidal ideation and only started this past September. Patient shared about some other reasons that it might be occurring and agrees that she still mourning the loss of her father who was her confidante; dealing with chronic pain having been off pain medications for several months and the ongoing struggles in her relationship with her mother and brother whom she feels are bullying; trying to come to terms with the fact that her mother simply isn't going to be the kind of mother she wishes she had. Patient agrees to medication management. 06/13 still very depressed with SI. Sleeping better however which is helpful and pain medications are also helpful. Patient agrees to increasing Vraylar; agrees to behavioral activation and attending groups. Despite ongoing thoughts about self-harm and ending her life when she is discharge, patient is also future oriented and says she would like to find a new place to live separate from her mother and brother. Asks for help going about that. 06/14 pt remains depressed, positive for SI with a plan but also future oriented talking about changing her living situation. Pt is engaged in treatment, trying to process her suicidal feelings and trying to be hopeful it will resolve. Agrees to adding Wellbutrin. -will likely add Wellbutrin; however, will probably keep Vraylar (maybe at lower dose) since pt has hx of manic-esque episodes (thought not formally diagnosed with bipolar as episode had several contributory factors) 06/15 remains depressed but processing feelings, doing worksheets, talking about her mother. Pt very anxious. -may increase wellbutrin for depression -considered starting Clonazepam 0.5mg BID; pt used to be on as much as 5mg of ativan daily; was weened off so hesitant to restart benzo's; 06/17 increase Wellbutrin 06/20 Over the weekend, patient assessed for infection, starting antibiotic; concerned that indwelling Van catheter is not sustainable; urology consulted and plan was for suprapubic catheter insertion for today. Patient however did not get fully informed of this and was upset to learn that a procedure was planned. She was however able to discuss this at length with typewriter ribbon winder and urology team and agreed to proceed. 06/21 Dr. Niño decided better to do a cystoscopy 1st and then decide whether not suprapubic catheter verse bladder stimulator; patient consents Seen by infectious disease: She has no urinary concerns at this time..No further antibiotics for now 06/22 Patient discussed conversation she had with her brother that was reassuring. Patient felt understood by him and supported which has lifted her mood. She feels that although she still depressed perhaps some of the depression is lifting and she starting to feel that there is hope of change in her situation. Patient remains very anxious. Earlier she had said she did not want to get back on benzodiazepines, having been on Ativan 5 mg for decades, weaned off only about a year ago. However given patient's struggles with anxiety and the fact that benzos have helped her in the past, discussed restarting a benzodiazepine, this time clonazepam 0.5 mg b.i.d.; typewriter ribbon winder discussed at length risks for addiction and the constant desire to have more. Patient said she very much does not want that to happen and feels that she will be able to minimize her use 06/23 Depressed, with intermittent SI. very anxious and with despairing thoughts has upcoming anniversary of her father's which is this July 03; will try to make it remembrance day and change the perspective. -Feeling better about catheter and plan; typewriter ribbon winder discussed with urology who met with patient and plan is for July 05 to move forward with stimulator -patient attending groups and engaged in treatment 06/24 a little better; mood up and down and still intermittent SI but patient is working on being hopeful employee numerous coping skills. Agrees to increase Wellbutrin 06/25 Patient continues to report depressed mood; told nurse that she remains purging daily and still plans to attempt suicide when she leaves. However on the unit, she seems more relaxed. Patient shared with typewriter ribbon winder her plan to remember her father on the anniversary of his . 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 Currently she is eating enough. As this is a chronic problem that that has gone on for over 20 years, and with which patient has been able to cope with on her own, without needing hospitalizations or [place] admissions since teenage years, typewriter ribbon winder does not expect that it will resolve during this inpatient stay and does not believe that it needs to. 06/27 very tearful sad; suicidal; pushing self to be around others, groups -talked about eating struggles, purging; trying not to 06/28 do not think that medication management will change patients depression at this time. Rather she needs continued time to process her feelings of despair, grief about her fathers , hx of trauma, feeling her future is bleak. -typewriter ribbon winder engaged in psychodynamic psychotherapy 06/29 same presentation; typewriter ribbon winder engaged in psychodynamic psychotherapy 06/30: feels clonidine and klonopin helpful for anxiety. asking for pain med change; deferred for return of attending, does not appear in pain. Q5s for SI/van. medical staff specialist feel pt is not substantially worse than her recent inpatient baseline, but perhaps looking a bit better today than yesterday. 07/01: appears behaving as per usual for inpatient context. increase seroquel to 150 QHS for insomnia and appetite stimulation. continue current mgmt otherwise. 07/02: Continues depressed with suicidal thoughts. Says she wants to starve self. VSS. Check metabolic panel. 07/04 Patient continues to lament her past and anger and frustration with specific relationships. Says still feels hopeless can not stop thinking about ending her life. Discussed more about taking responsibility for feelings and while anger and frustration at others can be appropriate, it is also necessary to work on coping with such feelings. Patient said she will continue to try. Discussed history and patient has not really had SI till this October and discussed how these feelings will also pass... Discussed medication management and patient agreed to trial of lithium for continued depression and chronic SI. and increasing Vraylar -patient considers ending her life by starving herself though she has been eating on the unit. -discussed surgical implantation of bladder stimulator tomorrow 07/05 received?bladder?stimulator;?remains?with?indwelling?catheter?which?will?be?nancy floyd?tomorrow?or?the?following?day. -increased?Vraylar?to?6?mg 07/06 continue?with?treatment?plan;??Aba Good?helping?with?implanted?bladder?stim PLAN: CV? Q 5s due to?indwelling?Van Continue clonazepam 0.5 mg b.i.d. Increase to WEllbutrin XL 450 mg for continued depression (pt adamant about not starting anti-depressant with risk of wt gain) Continue Vraylar 6 mg daily (Vraylar chosen since patient has depression but also history of manic type behaviors, possibly manic episode with some delusions and AH) Continue Belbuca 75mcg films BID for pain management (history of fentanyl patch, morphine, oxycodone, OxyContin) clonidine prn Continue Flagyl 500 q.12 hours x7 days placed for bacterial vaginosis; id examined patient and reports no need for any additional antibiotic regimen Urology appointment: July 05 for placement of bladder stimulator (With Dr. Leiva) Cystoscopy Findings: Bladder wall thickening, no vaginal or bladder mesh, no evidence outlet obstruction Hospitalist note 06/18 Receiving Pyridium UA 06/18 positive for 4+ bacteria, greater than 50 WBC, large leukocyte esterase positive nitrates Urine culture pending Urine culture 05/25 and 06/01 grew Raissa glabrata patient received Diflucan 200 mg daily from 06/01 through 06/15 Bacterial vaginosis PCR positive Raissa grew size/glabrata detected Due to persistent symptoms of vaginal pain/discharge recommend Infectious Disease consultation Follow urine culture. Patient educated on: diagnosis, medication risk/benefits and medical condition Patient educated on: diagnosis, medication risk/benefits, therapeutic strategies and medical condition Informed Consent: understands Reason for continued inpatient stay Substantial Risk for: rapid decompensation Time Spent With Patient Time: Total time managing care of this patient today ____ minutes.
[2024-07-06] MEDS: bisacodyL 5 MG TABLET.DR 10 MG PO (22:15)
[2024-07-06] MEDS: QUEtiapine Fumarate 50 MG TABLET 150 MG PO (22:16)
[2024-07-06] MEDS: Tamsulosin HCL 0.4 MG CAPSULE PO (22:16)
[2024-07-06] MEDS: Lithium Carbonate ER 300 MG TABLET.ER PO (22:17)
[2024-07-06] MEDS: Sennosides/Docusate Sodium TABLET 2 TAB PO (22:17)
[2024-07-06 22:21] VITALS: BP 136/72
[2024-07-07] MEDS: BUPRENORPHINE 75 MCG 1 EACH PO ×3 (00:14→22:07)
[2024-07-07] MEDS: Acetaminophen 325 MG TABLET 650 MG PO ×3 (00:14→17:29)
[2024-07-07] MEDS: Ibuprofen 600 MG TABLET PO (02:47)
[2024-07-07 07:00] VITALS: BMI 16.1
[2024-07-07 08:00] VITALS: BP 116/66; PULSE 78; RESP 14; TEMP 36.5; O2SAT 98
[2024-07-07] MEDS: clonazePAM 0.5 MG TABLET PO ×2 (08:20→16:54)
[2024-07-07] MEDS: Ascorbic Acid 500 MG TABLET 1000 MG PO (08:20)
[2024-07-07] MEDS: Sulfamethox/Trimeth 800/160 TABLET 1 TAB PO ×2 (08:20→21:08)
[2024-07-07] MEDS: buPROPion HCl XL 150 MG TAB.ER.24H 450 MG PO (08:21)
[2024-07-07] MEDS: Cariprazine HCl 3 MG CAPSULE 6 MG PO (08:21)
[2024-07-07] MEDS: traMADoL HCL 50 MG TABLET PO ×3 (09:24→21:46)
[2024-07-07 12:52] VITALS: BP 135/93
[2024-07-07] MEDS: cloNIDine HCL 0.1 MG TABLET PO ×2 (12:52→21:48)
[2024-07-07 14:57] LABS: MANUAL DIFF FLAG NO
[2024-07-07 15:02] LABS: Basophils Absolute Auto 0.1 X10*3/uL (0.0-0.2); Basophils Percent Auto 0.8 % (0-2); Eosinophils Absolute Auto 0.1 X10*3/uL (0.0-0.4); Eosinophils Percent Auto 1.3 % (0-4); Hematocrit 41.3 % (37.0-47.0); Hemoglobin 13.9 g/dl (12.0-16.0); Imm Gran Abs Auto 0.02 X10*3/uL (0.00-0.03); Imm Gran Pct Auto 0.3 % (0.0-0.4); Lymphocytes Absolute Auto 1.7 X10*3/uL (1.2-4.9); Lymphocytes Percent Auto 23.1 % (20-40); Mean Corpuscular HGB Conc 33.7 g/dl (31.0-35.0); Mean Corpuscular Hemoglobin 32.6 pg (27.0-33.0); Mean Corpuscular Volume 96.7 fL (80.0-98.0); Mean Platelet Volume 9.5 fL (9.4-12.3); Monocytes Absolute Auto 0.8 X10*3/uL (0.1-1.2); Monocytes Percent Auto 10.6 % (2-11); Neutrophils Absolute Auto 4.8 x10*3/uL (2.0-8.3); Neutrophils Percent Auto 63.9 % (45-73); Platelet Count 272 X10*3/uL (160-400); Red Blood Count 4.27 X10*6/uL (4.20-5.50); Red Cell Distribution Width 13.5 % (11.0-16.0); White Blood Count 7.5 X10*3/uL (4.8-10.8)
[2024-07-07 16:54] LABS: Alanine Aminotransferase 13 U/L (0-31); Albumin Level 4.5 g/dL (3.5-5.0); Alkaline Phosphatase 53 U/L (39-117); Anion Gap 11 (12-20); Aspartate Amino Transferase 18 U/L (5-31); Bilirubin Total 0.3 mg/dL (0.0-1.0); Blood Urea Nitrogen 6 mg/dL (9-16); Calcium 9.6 mg/dL (8.4-10.2); Carbon Dioxide 26 mmol/L (22-29); Chloride 105 mmol/L (96-108); Creatinine Clr Calc Pharmacy 53.2; Estimated Glomerular Filt Rate > 60; Glucose Random 107 mg/dL (60-115); Potassium 3.6 mmol/L (3.3-5.1); Sodium 138 mmol/L (135-145); Total Protein 7.2 g/dL (6.5-8.0)
--- NOTE | 2024-07-07 18:04 | PC.NURSE ---
1750: Update on pt's status provided to Dr. Conner. Pt due to void by 1830. Per Dr. Conner, pt to be bladder scanned first and if pt is comfortable, and bladder scan is less than 375ml then straight catheterization will be held and pt will be reevaluated in 1-2 hours.
--- NOTE | 2024-07-07 19:12 | PC.NURSE ---
Pt remains unable to void despite attempts made by pt that included sitting on toilet. Pt was bladder scanned at 1840 for upwards of 483ml. Pt reported she felt bladder pressure but remained unable to void. At 1850 pt was straight cath for 600ml yellow urine. Pt reported bladder pressure improved following straight cath.
[2024-07-07 21:00] VITALS: BP 135/93; PULSE 84; O2SAT 98
[2024-07-07] MEDS: QUEtiapine Fumarate 50 MG TABLET 150 MG PO (21:44)
[2024-07-07] MEDS: Bethanechol Chloride 25 MG TABLET PO (21:45)
[2024-07-07] MEDS: Sennosides/Docusate Sodium TABLET 2 TAB PO (21:45)
[2024-07-07] MEDS: Tamsulosin HCL 0.4 MG CAPSULE PO (21:47)
[2024-07-07] MEDS: Lithium Carbonate ER 300 MG TABLET.ER PO (21:48)
--- NOTE | 2024-07-07 22:58 | P.PNPSI_ITS ---
Subjective Subjective Date of Service: 07/07/24 Reason For Visit: Sa Interim History: Met?with?patient;?discussed?with?team? P atient?adjusting?to?new?bladder?stimulator?device,?bladder?scans,?straight?luan terization.?? R emains?with?intermittent?hopeless?feelings?and?thoughts?of?ending?her?life,?comm enting?that?she?will?start?herself. T his?discussed?with?patient?who?has?much?ambivalence,?not?wanting?to?quit?or?get? up?but?can?not?shake T he?feelings.??Funding Coordinator?discussed?how?history?of?trauma?left?patient?needing?to?a?c ertain?sense?of?control O mary?her?life?in?body?which?likely?plays?a?part?into?developing?anorexia,?SI...?? This?idea?resonate?with?patient? w ho?agreed?that?she?is?overly?focused?on?blaming?others?and?giving?to?little?atte ntion?to?how?to?work?on Her?own?personal?issues. Mental Status Exam Mental Status Exam Narrative: Pt is alert and oriented; behavior is cooperative, calm, friendly; cachectic; dressed in hospital attire with adequate hygiene; mood is described as not good and affect congruent, downcast; eye contact appropriate; Speech is a normal rate, volume and prosody; no psychomotor retardation present; thought process is organized and goal directed; Thought content is intermittently on hopeless thoughts; medical comorbidities; otherwise pertinent to relevant topics and without any delusional content, paranoid ideations or grandiosity; intermittent SI thoughts, sometimes passive sometimes with vague plan; no HI. There is no evidence of perceptual disturbance. Patients insight and judgment impaired Diagnostics Vital Signs (24Hr): Vital Signs - 24 hr 07/07/24 08:00 07/07/24 12:52 Temperature 97.7 F Pulse Rate 78 Respiratory Rate 14 Blood Pressure 116/66 135/93 H Pulse Oximetry 98 Oxygen Delivery Method Room Air BMI result Body Mass Index 16.1 Labs 07/07/24 14:53 07/07/24 14:53 Labs: Laboratory Results - last 48 hr 07/07/24 14:53 WBC 7.5 RBC 4.27 Hgb 13.9 Hct 41.3 MCV 96.7 MCH 32.6 MCHC 33.7 RDW 13.5 Plt Count 272 MPV 9.5 Immature Gran % (Auto) 0.3 Neut % (Auto) 63.9 Lymph % (Auto) 23.1 [place] % (Auto) 10.6 Eos % (Auto) 1.3 Baso % (Auto) 0.8 Lymph # (Auto) 1.7 [place] # (Auto) 0.8 Eos # (Auto) 0.1 Baso # (Auto) 0.1 Abs Immat Gran (auto) 0.02 Absolute Neuts (auto) 4.8 Absolute Nucleated RBC 0.000 Nucleated RBC % (auto) 0.0 Sodium 138 Potassium 3.6 Chloride 105 Carbon Dioxide 26 Anion Gap 11 L BUN 6 L Creatinine 0.84 Estim Creat Clear Calc 53.2 Estimated GFR > 60 Random Glucose 107 Calcium 9.6 D Total Bilirubin 0.3 AST 18 ALT 13 Alkaline Phosphatase 53 Total Protein 7.2 Albumin 4.5 Imaging Radiology Impressions: ITS Impressions KUB X-Ray 06/03/24 19:55 IMPRESSION: Increased amount of stool in the colon suggesting constipation. Please correlate with clinical presentation. Electronically signed by: Oneida Pham MD 06/04/2024 07:31 AM EDT Renal Ultrasound 06/04/24 14:49 IMPRESSION: No ultrasound evidence of renal obstruction or hydronephrosis. Limited visualization of the left kidney obscured by bowel gas, exam otherwise unremarkable. Electronically signed by: Oneida Pham MD 06/05/2024 12:56 PM EDT Abdomen/Pelvis CT 06/04/24 18:33 IMPRESSION: Severe constipation. Otherwise unremarkable CT abdomen and pelvis. Fleischner guidelines were followed. Electronically signed by: Deyvi Collins MD 06/04/2024 07:05 PM EDT Ribs X-Ray 06/19/24 10:15 IMPRESSION: 1. Mild degenerative changes of the left shoulder. 2. No left-sided rib fracture. Electronically signed by: Orlando Lindsey MD 06/19/2024 10:50 AM EDT RP Shoulder X-Ray 06/19/24 10:15 IMPRESSION: 1. Mild degenerative changes of the left shoulder. 2. No left-sided rib fracture. Electronically signed by: Orlando Lindsey MD 06/19/2024 10:50 AM EDT RP Medications Medications Current Medications Acetaminophen (Acetaminophen 325 Mg Tablet) 650 mg PO Q8H [facility] Last Admin: 07/07/24 17:29 Dose: 650 mg Al Hydroxide/Mg Hydroxide (Magnesium Hydrox/Alum Hydrox 30 Ml Oral.Susp) 30 ml PO Q6H PRN PRN Reason: Heartburn/Nausea Albuterol Sulfate (Albuterol Sulfate 90 Mcg 8 Gm Inhaler) 2 puff INHALE QID PRN PRN Reason: Shortness Of Breath Ascorbic Acid (Ascorbic Acid 500 Mg Tablet) 1,000 mg PO DAILY [facility] Last Admin: 07/07/24 08:20 Dose: 1,000 mg Benzocaine (Throat Lozenge, Medicated Lozenge) 1 lozenge MUCOUS MEM Q2H PRN PRN Reason: Sore Throat Last Admin: 06/30/24 22:42 Dose: 1 lozenge Bethanechol Chloride (Bethanechol Chloride 25 Mg Tablet) 25 mg PO TID [facility] Last Admin: 07/07/24 21:45 Dose: 25 mg Bisacodyl (Bisacodyl 5 Mg Tablet.Dr) 10 mg PO BEDTIME [facility] Last Admin: 07/07/24 22:08 Dose: Not Given Bupropion HCl (Bupropion Hcl Xl 150 Mg Tab.Er.24h) 450 mg PO DAILY [facility] Last Admin: 07/07/24 08:21 Dose: 450 mg Cariprazine (Cariprazine Hcl 3 Mg Capsule) 6 mg PO DAILY [facility] Last Admin: 07/07/24 08:21 Dose: 6 mg Clonazepam (Clonazepam 0.5 Mg Tablet) 0.5 mg PO BID@0900,1700 [facility] Last Admin: 07/07/24 16:54 Dose: 0.5 mg Clonidine HCl (Clonidine Hcl 0.1 Mg Tablet) 0.1 mg PO BEDTIME [facility]; Protocol Last Admin: 07/07/24 21:48 Dose: 0.1 mg Clonidine HCl (Clonidine Hcl 0.1 Mg Tablet) 0.1 mg PO Q4H PRN; Protocol PRN Reason: anxiety Last Admin: 07/07/24 12:52 Dose: 0.1 mg Hydroxyzine HCl (Hydroxyzine Hcl 25 Mg Tablet) 25 mg PO Q6H PRN PRN Reason: Anxiety Last Admin: 07/06/24 07:20 Dose: 25 mg Lactulose (Lactulose 20 Gm/30 Ml Solution) 40 gm PO DAILY [facility] Last Admin: 07/07/24 08:23 Dose: Not Given Lidocaine (Lidocaine 4 % Patch Adh..Patch) 1 patch TRANSDERMA DAILY [facility]; Protocol Last Admin: 07/07/24 08:24 Dose: Not Given Lidocaine (Lidocaine 4 % Patch Adh..Patch) 2 patch TRANSDERMA DAILY [facility]; Protocol Last Admin: 07/07/24 10:24 Dose: Not Given Lidocaine HCl (Lidocaine Hcl 2 % Urojet 10 Ml Jel.Pf.Luis) 10 ml TOPICAL BID PRN PRN Reason: Pain, Severe (Pain Scale 7-10) Last Admin: 06/19/24 22:05 Dose: 10 ml [place] Carbonate ([place] Carbonate Er 300 Mg Tablet.Er) 300 mg PO BEDTIME [facility] Last Admin: 07/07/24 21:48 Dose: 300 mg Loperamide HCl (Loperamide Hcl 2 Mg Capsule) 2 mg PO Q4H PRN PRN Reason: Diarrhea Magnesium Hydroxide (Milk Of Magnesia 30 Ml Oral.Susp) 30 ml PO DAILY PRN PRN Reason: Constipation Last Admin: 06/04/24 05:22 Dose: 30 ml Multi-Ingred Cream/Lotion/Oil/Oint (Mineral Oil/Petrolatum,White 106 Gm Tube) 1 appl TOPICAL BID PRN; Protocol PRN Reason: Dry Skin Last Admin: 06/13/24 21:44 Dose: 1 appl Patient Own (Belbuca (75mcg Buccal Films)) 1 each PO BID [facility] Last Admin: 07/07/24 22:07 Dose: 1 each Ondansetron HCl (Ondansetron Odt 4 Mg Tab.Rapdis) 4 mg TRANSLINGU Q6H PRN PRN Reason: Nausea and Vomiting Last Admin: 06/18/24 16:17 Dose: 4 mg Polyethylene Glycol (Polyethylene Glycol 3350 17 Gm Powd.Pack) 17 gm PO BID [facility] Last Admin: 07/07/24 22:08 Dose: Not Given Quetiapine Fumarate (Quetiapine Fumarate 50 Mg Tablet) 150 mg PO BEDTIME [facility] Last Admin: 07/07/24 21:44 Dose: 150 mg Senna/Docusate Sodium (Sennosides/Docusate Sodium Tablet) 2 tab PO BID [facility] Last Admin: 07/07/24 21:45 Dose: 2 tab Simethicone (Simethicone 80 Mg Tab.Chew) 160 mg PO BID PRN PRN Reason: bloating/gas Last Admin: 06/07/24 11:06 Dose: 160 mg Tamsulosin HCl (Tamsulosin Hcl 0.4 Mg Capsule) 0.4 mg PO BEDTIME [facility] Last Admin: 07/07/24 21:47 Dose: 0.4 mg Tramadol HCl (Tramadol Hcl 50 Mg Tablet) 50 mg PO Q6H PRN PRN Reason: Pain, Severe (Pain Scale 7-10) Last Admin: 07/07/24 21:46 Dose: 50 mg Trimethoprim/Sulfamethoxazole (Sulfamethox/Trimeth 800/160 Tablet) 1 tab PO Q12H [facility] Last Admin: 07/07/24 21:08 Dose: 1 tab Allergies Allergies Allergy/AdvReac Type Severity Reaction Status Date / Time azithromycin Allergy Itching Verified 06/21/24 12:35 levofloxacin [From Levaquin] Allergy Nightmare Verified 06/21/24 12:35 nitrofurantoin Allergy Itching Verified 06/21/24 12:35 [From Macrodantin] Assessment & Plan Assessment & Plan (1) MDD (major depressive disorder), recurrent episode, moderate: Status: Acute Code(s): F33.1 - Major depressive disorder, recurrent, moderate (2) PTSD (post-traumatic stress disorder): Status: Acute Code(s): F43.10 - Post-traumatic stress disorder, unspecified (3) Voiding dysfunction: Status: Acute Code(s): N39.8 - Other specified disorders of urinary system Assessment and Plan: She has no urinary concerns at this time No further antibiotics for now (4) Urinary retention: Status: Acute Code(s): R33.9 - Retention of urine, unspecified (5) Jennifer-Danlos disease: Status: Acute Code(s): Q79.60 - Jennifer-Danlos syndrome, unspecified (6) Osteogenesis imperfecta: Status: Acute Code(s): Q78.0 - Osteogenesis imperfecta (7) Myofascial pain syndrome: Status: Acute Code(s): M79.18 - Myalgia, other site Plan HPI: Patient is a 39-year-old female with history of Jennifer Danlos syndrome, osteogenesis imperfecta, myofascial pain syndrome, migraines, juvenile osteoporosis, asthma, and mood disorder with history of rectocele, vaginal mesh surgery, urinary retention requiring Van catheterization, which was recently restarted. P atient?presented?to?[facility]?on?924?following?intentional?overdose?on?muscle?rel axers.??Patient?lujan mary?was?immediately?transferred?to?medical?floor?for?urinary?retention;?she?stab ilized?there?and?was?discharged.?? She?presents?again?for?overdose On?gabapentin?and?trazodone,?Which?she?asserts?was?not?intentional (though later admits it was),?saying?she?just?wanted?to?sleep?and?get?relief?from?chronic?pain H owever?she?agrees?it?was?impulsive?and?unsafe.??Patient?currently?denies?any?SI. ??She?reports?howeve r?that?life?has?been?very?difficultff?pain?medications,?having?been?prescribed?o pioids?consistently?for?the?past?24?years,? as?well?as?Ativan.??Patient?agrees?she?needs Help?stabilizing?and?coping. Relevant Medical/psych History: Patient was on opiates scheduled for 24 years to manage chronic medical comorbidities, resulting in hx of multiple fractures/falls and subsequent chronic pain. Pt denies any hx of substance abuse, including cannabis. She did screen positive for Fentanyl at first admission in October 2024 but is adamant she's never used it in her life and no quantitative labs done (leaving Fentanyl use inconclusive). Patients long-time physician of [address] Brigido Dietrich retired and new PCP tapered her off and discontinued all opioid pain management (also tapered and dc'd ativan). Patient reports she has been in constant pain and discomfort since then and has felt very frustrated and challenged to enjoy life, sometimes challenging her desire to live. Discussed?case?with?RECYCLING SPECIALIST Vianey Dunaway from pain management clinic: pt seen on 05/24. RECYCLING SPECIALIST Gume agrees that patients medical comorbidities and subsequent chronic pain syndrome are commonly treated with opioid pain management. She recommends either Butrans patch or preferably Belbucha films (a form of Buprenorphin and titrating it to 150mg BID). Pt is also appropriate to get other nerve blocking treatments at pain clinic who will f/u with pt. Funding Coordinator spoke with patient's PCP Dr. Rubio at [facility] Dr. Rubio reports concurs that patient has Osteogenesis imprefecta, Ehlos Danlos Pt was on opioids for 24 years with prior PCP. With [facility] she was on Oxycodine 30mg QID and Oxycontin 30mg daily. In Sep 2023 pt was admitted to [facility] for concern for overdose. Additionally, there were other concerns including that [facility] notes referenced that patient reported being on a Fentanyl patch, which this provider had never prescribed. Additionally, there was hx of patient needing refills early and a report that her mother had used some of her medications. Also patient had significant weight loss which provider was concerned might have contributed to possible accidental overdose. Because of these concerns provider, clinic repeatedly called patient to come in and discuss pain management and reportedly reached out to her from October until January however patient did not respond or come in for appointments, having missed several. Provider reports that because of lack of communication and ongoing concern that was never addressed, Provider felt it was necessary to taper patient off pain medication which was started in January; patient was also tapered off Ativan. Provider agrees that patient does have significant medical history that is commonly treated with chronic pain medication. Funding Coordinator discussed options with them and Dr. Rubio agrees that starting patient on a buprenorphine product is an acceptable alternative to oxycodone. Vraylar since depressed and hx of manic-esque IMPRESSION: Patient's?depression?and?SI?seem?to?have significant?situational component?as?she?is?No?longer?receiving?pain?management?for?severe,?chronic?pain . P atient?has?no?known?history?of?substance?abuse.??Although?she?did?screen?positiv e?for?fentanyl (on?10/27/2023 and?05/18/2024), No?quantitative?analysis?was?done. ?This?mean that?fentanyl?screen?could?very?well?be?a?false-positive?result (which is not uncommon). Medical?decision?should?not?be?based?on?only?a?positive?screen?for?fentanyl. Patient does struggle with SI and with her chronic?pain?And?poor?support?will?likely?continue?to?produce?mood?instability.? ?Treatment?plan?will?include?teletypewriter operator/team?discussion?with Outpatient?PCP?regarding?plan?for?treatment. Hospital course: 06/05: Continue current regimen and plans 06/06. Continue current plans and regimen. Loperamide was put on hold. Started on simethicone by hospitalist. No indications of GI bleeding currently. -seen by GI: C/o constipation and worsening abdominal distension. Will order CT A/P with IV/PO contrast to assess for SBO/ileus though passage of gas and small amount of stool argues against complete obstruction; however she is at risk given multiple surgeries. If no obstruction will order bowel regimen to address constipation. Continue Van, Urology following. 06/07 Patient reports that she is depressed. She apologized for not being more forthcoming earlier on in says it took her awhile to admitted to herself but she does not want to be in this world anymore... And has a plan to jump in front of a train on discharge. Patient also reports that overdose on trazodone/gabapentin was actually an intentional suicide attempt. She reports a constant deluge of self-deprecating thoughts which include that she is worthless, discussed in, and fat. Funding Coordinator reviewed patient's history of anorexia and patient reports she sees herself as fat every day and eats very little (history of anorexia since 14 years old; was at brought up oral for a month with a feeding tube; she understands that this is a significant cause of her chronic constipation). Despite her SI, patient does want help getting better agrees to try antidepressant medication; teletypewriter operator reviewed options and risks/side effects and patient with [facility]. Also discussed pain medication management and patient agrees with Belbuca which she has heard of; she also agrees to non opioid pain management and will follow-up with pain management Clinic here at [facility]. Discussed relationship with her mother and she does not SA think her mother struggles with drug addiction but has caught her trying to get into her room, which patient keeps locked, looking for her medications which she has taken in the past. Patient said she reported this to her PCP. Patient does have history of being prescribed fentanyl patch however she did not like them and weaned herself off of them; set had some left over 06/08 Patient remains depressed with suicidal thinking however is trying to be hopeful and has tolerated Vraylar and says will continue, with increased dose; grateful for help getting Belbuca through prior authorization. -Discussed case with urology who recommends remaining with indwelling Van since failed voiding attempt on 06/03; will continue to follow -pt reported and nurse corroborated that Van bag containing urine was blood- tinged; discussed with Urologist, deemed likely micro trauma, and to keep van in place; recently failed voiding trial on 06/03 06/09 Patient reports she remains depressed, with SI. Patient also reports she had a very difficult time sleeping last night feeling very upset following a conversation she had on the phone with her mother. Patient expressed to her mother she is feeling hurt that her mom has not visited or called throughout her admission, even on patient's birthday; she says her mom was on apologetic. Patient also challenged her mom regarding her mom's past comment that patient could burn in hell with her father (who 2 years ago); mom remained unapologetic. Patient tells teletypewriter operator she has no idea why her mom said this other than that her mom is crazy... Subsequently patient reports that throughout the night, she had racing thoughts and no sleep. Discussed medications and patient and pt is eager to try Belbuca Films for pain management, available today dc'd gabapentin; pt said has never helped for pain or anxiety Adding clonidine at bedtime to help w/ sleep, anxiety 06/10 patient reports that Belbuca is helping with pain Patient remains very depressed and continues to have suicidal thoughts, saying she wants to end her life when she leaves the hospital. Patient Says I do not understand myself.. And laments she is gone most of her life without any suicidal ideation and only started this past September. Patient shared about some other reasons that it might be occurring and agrees that she still mourning the loss of her father who was her confidante; dealing with chronic pain having been off pain medications for several months and the ongoing struggles in her relationship with her mother and brother whom she feels are bullying; trying to come to terms with the fact that her mother simply isn't going to be the kind of mother she wishes she had. Patient agrees to medication management. 06/13 still very depressed with SI. Sleeping better however which is helpful and pain medications are also helpful. Patient agrees to increasing Vraylar; agrees to behavioral activation and attending groups. Despite ongoing thoughts about self-harm and ending her life when she is discharge, patient is also future oriented and says she would like to find a new place to live separate from her mother and brother. Asks for help going about that. 06/14 pt remains depressed, positive for SI with a plan but also future oriented talking about changing her living situation. Pt is engaged in treatment, trying to process her suicidal feelings and trying to be hopeful it will resolve. Agrees to adding Wellbutrin. -will likely add Wellbutrin; however, will probably keep Vraylar (maybe at lower dose) since pt has hx of manic-esque episodes (thought not formally diagnosed with bipolar as episode had several contributory factors) 06/15 remains depressed but processing feelings, doing worksheets, talking about her mother. Pt very anxious. -may increase wellbutrin for depression -considered starting Clonazepam 0.5mg BID; pt used to be on as much as 5mg of ativan daily; was weened off so hesitant to restart benzo's; 06/17 increase Wellbutrin 06/20 Over the weekend, patient assessed for infection, starting antibiotic; concerned that indwelling Van catheter is not sustainable; urology consulted and plan was for suprapubic catheter insertion for today. Patient however did not get fully informed of this and was upset to learn that a procedure was planned. She was however able to discuss this at length with teletypewriter operator and urology team and agreed to proceed. 06/21 Dr. Niño decided better to do a cystoscopy 1st and then decide whether not suprapubic catheter verse bladder stimulator; patient consents Seen by infectious disease: She has no urinary concerns at this time..No further antibiotics for now 06/22 Patient discussed conversation she had with her brother that was reassuring. Patient felt understood by him and supported which has lifted her mood. She feels that although she still depressed perhaps some of the depression is lifting and she starting to feel that there is hope of change in her situation. Patient remains very anxious. Earlier she had said she did not want to get back on benzodiazepines, having been on Ativan 5 mg for decades, weaned off only about a year ago. However given patient's struggles with anxiety and the fact that benzos have helped her in the past, discussed restarting a benzodiazepine, this time clonazepam 0.5 mg b.i.d.; teletypewriter operator discussed at length risks for addiction and the constant desire to have more. Patient said she very much does not want that to happen and feels that she will be able to minimize her use 06/23 Depressed, with intermittent SI. very anxious and with despairing thoughts has upcoming anniversary of her father's which is this July 03; will try to make it remembrance day and change the perspective. -Feeling better about catheter and plan; teletypewriter operator discussed with urology who met with patient and plan is for July 05 to move forward with stimulator -patient attending groups and engaged in treatment 06/24 a little better; mood up and down and still intermittent SI but patient is working on being hopeful employee numerous coping skills. Agrees to increase Wellbutrin 06/25 Patient continues to report depressed mood; told nurse that she remains purging daily and still plans to attempt suicide when she leaves. However on the unit, she seems more relaxed. Patient shared with teletypewriter operator her plan to remember her father on the anniversary of his . 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 Currently she is eating enough. As this is a chronic problem that that has gone on for over 20 years, and with which patient has been able to cope with on her own, without needing hospitalizations or [place] admissions since teenage years, teletypewriter operator does not expect that it will resolve during this inpatient stay and does not believe that it needs to. 06/27 very tearful sad; suicidal; pushing self to be around others, groups -talked about eating struggles, purging; trying not to 06/28 do not think that medication management will change patients depression at this time. Rather she needs continued time to process her feelings of despair, grief about her fathers , hx of trauma, feeling her future is bleak. -teletypewriter operator engaged in psychodynamic psychotherapy 06/29 same presentation; teletypewriter operator engaged in psychodynamic psychotherapy 06/30: feels clonidine and klonopin helpful for anxiety. asking for pain med change; deferred for return of attending, does not appear in pain. Q5s for SI/van. staff nurse icu resource team feel pt is not substantially worse than her recent inpatient baseline, but perhaps looking a bit better today than yesterday. 07/01: appears behaving as per usual for inpatient context. increase seroquel to 150 QHS for insomnia and appetite stimulation. continue current mgmt otherwise. 07/02: Continues depressed with suicidal thoughts. Says she wants to starve self. VSS. Check metabolic panel. 07/04 Patient continues to lament her past and anger and frustration with specific relationships. Says still feels hopeless can not stop thinking about ending her life. Discussed more about taking responsibility for feelings and while anger and frustration at others can be appropriate, it is also necessary to work on coping with such feelings. Patient said she will continue to try. Discussed history and patient has not really had SI till this October and discussed how these feelings will also pass... Discussed medication management and patient agreed to trial of lithium for continued depression and chronic SI. and increasing Vraylar -patient considers ending her life by starving herself though she has been eating on the unit. -discussed surgical implantation of bladder stimulator tomorrow 07/05 received?bladder?stimulator;?remains?with?indwelling?catheter?which?will?be?nancy floyd?tomorrow?or?the?following?day. -increased?Vraylar?to?6?mg 07/06 continue?with?treatment?plan;??Aba Good?helping?with?implanted?bladder?stim 07/07 adjusting to new device, bladder scan; discussed?how?history?of?trauma?left?patient?needing?to?a?certain?sense?of?contr ol [place]?her?life?in?body?which?likely?plays?a?part?into?developing?anorexia,?SI...?? This?idea?resonate?with?patient? w ho?agreed?that?she?is?overly?focused?on?blaming?others?and?giving?to?little?atte ntion?to?how?to?work?on Her?own?personal?issues. PLAN: CV? Q 5s due to?indwelling?Van Continue clonazepam 0.5 mg b.i.d. Added?tramadol?for?breakthrough?pain Continue?WEllbutrin XL 450 mg for continued depression (pt adamant about not starting anti-depressant with risk of wt gain) Continue Vraylar 6 mg daily (Vraylar chosen since patient has depression but also history of manic type behaviors, possibly manic episode with some delusions and AH) Continue Belbuca 75mcg films BID for pain management (history of fentanyl patch, morphine, oxycodone, OxyContin) clonidine prn Continue Flagyl 500 q.12 hours x7 days placed for bacterial vaginosis; id examined patient and reports no need for any additional antibiotic regimen Urology appointment: July 05 for placement of bladder stimulator (With Dr. Leiva) Cystoscopy Findings: Bladder wall thickening, no vaginal or bladder mesh, no evidence outlet obstruction Hospitalist note 06/18 Receiving Pyridium UA 06/18 positive for 4+ bacteria, greater than 50 WBC, large leukocyte esterase positive nitrates Urine culture pending Urine culture 05/25 and 06/01 grew Raissa glabrata patient received Diflucan 200 mg daily from 06/01 through 06/15 Bacterial vaginosis PCR positive Raissa grew size/glabrata detected Due to persistent symptoms of vaginal pain/discharge recommend Infectious Disease consultation Follow urine culture. Patient educated on: diagnosis, medication risk/benefits and medical condition Patient educated on: diagnosis, medication risk/benefits, therapeutic strategies and medical condition Informed Consent: understands Reason for continued inpatient stay Substantial Risk for: rapid decompensation Time Spent With Patient Time: Total time managing care of this patient today ____ minutes.
[2024-07-08] MEDS: traMADoL HCL 50 MG TABLET PO ×3 (05:40→18:43)
[2024-07-08 08:00] VITALS: BP 111/71; PULSE 83; RESP 16; TEMP 36.7; O2SAT 97
[2024-07-08] MEDS: Albuterol Sulfate 90 MCG 8 GM INHALER 2 PUFF INHALE (09:54)
[2024-07-08] MEDS: Sennosides/Docusate Sodium TABLET 2 TAB PO (09:56)
[2024-07-08] MEDS: Cariprazine HCl 3 MG CAPSULE 6 MG PO (09:56)
[2024-07-08] MEDS: Acetaminophen 325 MG TABLET 650 MG PO ×2 (09:56→15:22)
[2024-07-08] MEDS: clonazePAM 0.5 MG TABLET PO ×2 (09:56→15:54)
[2024-07-08] MEDS: buPROPion HCl XL 150 MG TAB.ER.24H 450 MG PO (09:56)
[2024-07-08] MEDS: Ascorbic Acid 500 MG TABLET 1000 MG PO (09:57)
[2024-07-08] MEDS: Bethanechol Chloride 25 MG TABLET PO ×3 (09:58→23:02)
[2024-07-08] MEDS: Sulfamethox/Trimeth 800/160 TABLET 1 TAB PO ×2 (09:58→20:30)
[2024-07-08] MEDS: BUPRENORPHINE 75 MCG 1 EACH PO ×2 (10:03→23:04)
--- NOTE | 2024-07-08 11:01 | HE.PHANOTE ---
Pt own Belbuca Pt has officially completed all the doses we have stored in the safe. Just sent the last 4 films stored in safe by pharmacy. Let nurse, Cristina Ramirez, know who is currently taking of patient that we no longer have any Belbuca films in the pharmacy, the patient will run out in 2 days, and they will need to refill the medication and bring the refill to pharmacy.
--- NOTE | 2024-07-08 11:12 | PC.NURSE ---
This video game script writer told Dr. Hermosillo that Belbuca films in pyxis are gone and more are needed for the weekend. This video game script writer called [facility] outpatient pharmacy to request additional medication. Dr. Hermosillo to send new RX.
--- NOTE | 2024-07-08 11:14 | PC.NURSE ---
Pt c/o bladder pressure at 0800. This publications writer performed bladder scan and this reading showed 680 cc. This nurse then performed a straight cath and 625 cc of urine was removed from bladder. Pt tolerated procedure well.
--- NOTE | 2024-07-08 18:37 | PC.NURSE ---
This telegraphic typewriter repairer bladder scanned patient at 181 and got a reading of 378cc. This telegraphic typewriter repairer performed a straight cath and 215 cc of urine came out. Pt c/o discomfort so this telegraphic typewriter repairer removed the catheter upon request of patient.
[2024-07-08 20:00] VITALS: BP 123/89; PULSE 93; RESP 18; TEMP 36.3; O2SAT 100
[2024-07-08] MEDS: cloNIDine HCL 0.1 MG TABLET PO (23:00)
[2024-07-08] MEDS: Tamsulosin HCL 0.4 MG CAPSULE PO (23:01)
[2024-07-08] MEDS: QUEtiapine Fumarate 50 MG TABLET 150 MG PO (23:01)
[2024-07-08] MEDS: Lithium Carbonate ER 300 MG TABLET.ER 600 MG PO (23:03)
[2024-07-09] MEDS: traMADoL HCL 50 MG TABLET PO ×4 (02:41→22:16)
[2024-07-09] MEDS: hydrOXYzine HCL 25 MG TABLET PO (02:41)
--- NOTE | 2024-07-09 07:18 | PC.NURSE ---
Pt. asked to have bladder scanned. At 07:00 the bladder scanner showed 387cc on scan. Straight catheter inserted without incident 550cc ling yellow urine returned. Pt tolerated the procedure well. She returned to her room with 1:1 staffing for safety due to bladder scanner wires.
[2024-07-09 08:00] VITALS: BP 132/83; PULSE 88; RESP 16; TEMP 36.4; O2SAT 100
[2024-07-09] MEDS: clonazePAM 0.5 MG TABLET PO ×2 (08:23→16:12)
[2024-07-09] MEDS: Ascorbic Acid 500 MG TABLET 1000 MG PO (08:23)
[2024-07-09] MEDS: Bethanechol Chloride 25 MG TABLET PO ×3 (08:23→21:58)
[2024-07-09] MEDS: buPROPion HCl XL 150 MG TAB.ER.24H 450 MG PO (08:23)
[2024-07-09] MEDS: Cariprazine HCl 3 MG CAPSULE 6 MG PO (08:23)
[2024-07-09] MEDS: BUPRENORPHINE 75 MCG 1 EACH PO ×2 (08:24→20:26)
[2024-07-09] MEDS: Acetaminophen 325 MG TABLET 650 MG PO ×2 (08:24→15:58)
[2024-07-09] MEDS: Sulfamethox/Trimeth 800/160 TABLET 1 TAB PO ×2 (08:24→20:35)
--- NOTE | 2024-07-09 10:34 | P.PNPSI_ITS ---
Subjective Subjective Date of Service: 07/09/24 Reason For Visit: Sa Subjective Notes: Conditional Voluntary Interim History: Patient was seen and discussed in rounds today. Records and plans were reviewed. Continues to be depressed and anxious. Continues to have suicidal ideation which has been present at all times. She continues to be on one-to-one observation. Very somatically preoccupied. Review of Systems Review of Systems Yes all other systems are reviewed and are negative Mental Status Exam Mental Status Exam Narrative: In today's visit she is alert, oriented and pleasant. She was in bed. Speech is normal. Good eye contact. Affect is appropriate and varied. No signs of psychosis. Cognitively is intact. Passive SI at baseline present. Judgment is intact Diagnostics Vital Signs (24Hr): Vital Signs - 24 hr 07/08/24 20:00 07/09/24 08:00 Temperature 97.3 F 97.5 F Pulse Rate 93 88 Respiratory Rate 18 16 Blood Pressure 123/89 132/83 Pulse Oximetry 100 100 Oxygen Delivery Method Room Air Room Air BMI result Body Mass Index 16.1 Labs 07/07/24 14:53 07/07/24 14:53 Labs: Laboratory Results - last 48 hr 07/07/24 14:53 WBC 7.5 RBC 4.27 Hgb 13.9 Hct 41.3 MCV 96.7 MCH 32.6 MCHC 33.7 RDW 13.5 Plt Count 272 MPV 9.5 Immature Gran % (Auto) 0.3 Neut % (Auto) 63.9 Lymph % (Auto) 23.1 Bland % (Auto) 10.6 Eos % (Auto) 1.3 Baso % (Auto) 0.8 Lymph # (Auto) 1.7 Bland # (Auto) 0.8 Eos # (Auto) 0.1 Baso # (Auto) 0.1 Abs Immat Gran (auto) 0.02 Absolute Neuts (auto) 4.8 Absolute Nucleated RBC 0.000 Nucleated RBC % (auto) 0.0 Sodium 138 Potassium 3.6 Chloride 105 Carbon Dioxide 26 Anion Gap 11 L BUN 6 L Creatinine 0.84 Estim Creat Clear Calc 53.2 Estimated GFR > 60 Random Glucose 107 Calcium 9.6 D Total Bilirubin 0.3 AST 18 ALT 13 Alkaline Phosphatase 53 Total Protein 7.2 Albumin 4.5 Imaging Radiology Impressions: ITS Impressions KUB X-Ray 06/03/24 19:55 IMPRESSION: Increased amount of stool in the colon suggesting constipation. Please correlate with clinical presentation. Electronically signed by: Oneida Pham MD 06/04/2024 07:31 AM EDT RP Renal Ultrasound 06/04/24 14:49 IMPRESSION: No ultrasound evidence of renal obstruction or hydronephrosis. Limited visualization of the left kidney obscured by bowel gas, exam otherwise unremarkable. Electronically signed by: Oneida Pham MD 06/05/2024 12:56 PM EDT RP Abdomen/Pelvis CT 06/04/24 18:33 IMPRESSION: Severe constipation. Otherwise unremarkable CT abdomen and pelvis. Fleischner guidelines were followed. Electronically signed by: Deyvi Collins MD 06/04/2024 07:05 PM EDT RP Ribs X-Ray 06/19/24 10:15 IMPRESSION: 1. Mild degenerative changes of the left shoulder. 2. No left-sided rib fracture. Electronically signed by: Orlando Lindsey MD 06/19/2024 10:50 AM EDT RP Shoulder X-Ray 06/19/24 10:15 IMPRESSION: 1. Mild degenerative changes of the left shoulder. 2. No left-sided rib fracture. Electronically signed by: Orlando Lindsey MD 06/19/2024 10:50 AM EDT RP Medications Medications Current Medications Acetaminophen (Acetaminophen 325 Mg Tablet) 650 mg PO Q8H [facility] Last Admin: 07/09/24 08:24 Dose: 650 mg Al Hydroxide/Mg Hydroxide (Magnesium Hydrox/Alum Hydrox 30 Ml Oral.Susp) 30 ml PO Q6H PRN PRN Reason: Heartburn/Nausea Albuterol Sulfate (Albuterol Sulfate 90 Mcg 8 Gm Inhaler) 2 puff INHALE QID PRN PRN Reason: Shortness Of Breath Last Admin: 07/08/24 09:54 Dose: 2 puff Ascorbic Acid (Ascorbic Acid 500 Mg Tablet) 1,000 mg PO DAILY [facility] Last Admin: 07/09/24 08:23 Dose: 1,000 mg Benzocaine (Throat Lozenge, Medicated Lozenge) 1 lozenge MUCOUS MEM Q2H PRN PRN Reason: Sore Throat Last Admin: 06/30/24 22:42 Dose: 1 lozenge Bethanechol Chloride (Bethanechol Chloride 25 Mg Tablet) 25 mg PO TID ELMO Last Admin: 07/09/24 08:23 Dose: 25 mg Bisacodyl (Bisacodyl 5 Mg Tablet.Dr) 10 mg PO BEDTIME ELMO Last Admin: 07/08/24 23:05 Dose: Not Given Bupropion HCl (Bupropion Hcl Xl 150 Mg Tab.Er.24h) 450 mg PO DAILY ELMO Last Admin: 07/09/24 08:23 Dose: 450 mg Cariprazine (Cariprazine Hcl 3 Mg Capsule) 6 mg PO DAILY ELMO Last Admin: 07/09/24 08:23 Dose: 6 mg Clonazepam (Clonazepam 0.5 Mg Tablet) 0.5 mg PO BID@0900,1700 ELMO Last Admin: 07/09/24 08:23 Dose: 0.5 mg Clonidine HCl (Clonidine Hcl 0.1 Mg Tablet) 0.1 mg PO BEDTIME ELMO; Protocol Last Admin: 07/08/24 23:00 Dose: 0.1 mg Clonidine HCl (Clonidine Hcl 0.1 Mg Tablet) 0.1 mg PO Q4H PRN; Protocol PRN Reason: anxiety Last Admin: 07/07/24 12:52 Dose: 0.1 mg Hydroxyzine HCl (Hydroxyzine Hcl 25 Mg Tablet) 25 mg PO Q6H PRN PRN Reason: Anxiety Last Admin: 07/09/24 02:41 Dose: 25 mg Lactulose (Lactulose 20 Gm/30 Ml Solution) 40 gm PO DAILY ELMO Last Admin: 07/09/24 08:29 Dose: Not Given Lidocaine (Lidocaine 4 % Patch Adh..Patch) 1 patch TRANSDERMA DAILY ELMO; Protocol Last Admin: 07/09/24 08:29 Dose: Not Given Lidocaine (Lidocaine 4 % Patch Adh..Patch) 2 patch TRANSDERMA DAILY [facility]; Protocol Last Admin: 07/09/24 08:29 Dose: Not Given Lidocaine HCl (Lidocaine Hcl 2 % Urojet 10 Ml Jel.Pf.Luis) 10 ml TOPICAL BID PRN PRN Reason: Pain, Severe (Pain Scale 7-10) Last Admin: 06/19/24 22:05 Dose: 10 ml Hubbard Carbonate (Hubbard Carbonate Er 300 Mg Tablet.Er) 600 mg PO BEDTIME ELMO Last Admin: 07/08/24 23:03 Dose: 600 mg Loperamide HCl (Loperamide Hcl 2 Mg Capsule) 2 mg PO Q4H PRN PRN Reason: Diarrhea Magnesium Hydroxide (Milk Of Magnesia 30 Ml Oral.Susp) 30 ml PO DAILY PRN PRN Reason: Constipation Last Admin: 06/04/24 05:22 Dose: 30 ml Multi-Ingred Cream/Lotion/Oil/Oint (Mineral Oil/Petrolatum,White 106 Gm Tube) 1 appl TOPICAL BID PRN; Protocol PRN Reason: Dry Skin Last Admin: 06/13/24 21:44 Dose: 1 appl Patient Own (Belbuca (75mcg Buccal Films)) 1 each PO BID [facility] Last Admin: 07/09/24 08:24 Dose: 1 each Ondansetron HCl (Ondansetron Odt 4 Mg Tab.Rapdis) 4 mg TRANSLINGU Q6H PRN PRN Reason: Nausea and Vomiting Last Admin: 06/18/24 16:17 Dose: 4 mg Polyethylene Glycol (Polyethylene Glycol 3350 17 Gm Powd.Pack) 17 gm PO BID [facility] Last Admin: 07/09/24 08:29 Dose: Not Given Quetiapine Fumarate (Quetiapine Fumarate 50 Mg Tablet) 150 mg PO BEDTIME [facility] Last Admin: 07/08/24 23:01 Dose: 150 mg Senna/Docusate Sodium (Sennosides/Docusate Sodium Tablet) 2 tab PO BID [facility] Last Admin: 07/09/24 08:30 Dose: Not Given Simethicone (Simethicone 80 Mg Tab.Chew) 160 mg PO BID PRN PRN Reason: bloating/gas Last Admin: 06/07/24 11:06 Dose: 160 mg Tamsulosin HCl (Tamsulosin Hcl 0.4 Mg Capsule) 0.4 mg PO BEDTIME [facility] Last Admin: 07/08/24 23:01 Dose: 0.4 mg Tramadol HCl (Tramadol Hcl 50 Mg Tablet) 50 mg PO Q6H PRN PRN Reason: Pain, Severe (Pain Scale 7-10) Last Admin: 07/09/24 08:43 Dose: 50 mg Trimethoprim/Sulfamethoxazole (Sulfamethox/Trimeth 800/160 Tablet) 1 tab PO Q12H [facility] Last Admin: 07/09/24 08:24 Dose: 1 tab Allergies Allergies Allergy/AdvReac Type Severity Reaction Status Date / Time azithromycin Allergy Itching Verified 06/21/24 12:35 levofloxacin [From Levaquin] Allergy Nightmare Verified 06/21/24 12:35 nitrofurantoin Allergy Itching Verified 06/21/24 12:35 [From Macrodantin] Assessment & Plan Assessment & Plan (1) MDD (major depressive disorder), recurrent episode, moderate: Status: Acute Code(s): F33.1 - Major depressive disorder, recurrent, moderate (2) PTSD (post-traumatic stress disorder): Status: Acute Code(s): F43.10 - Post-traumatic stress disorder, unspecified (3) Voiding dysfunction: Status: Acute Code(s): N39.8 - Other specified disorders of urinary system Assessment and Plan: She has no urinary concerns at this time No further antibiotics for now (4) Urinary retention: Status: Acute Code(s): R33.9 - Retention of urine, unspecified (5) Jennifer-Danlos disease: Status: Acute Code(s): Q79.60 - Jennifer-Danlos syndrome, unspecified (6) Osteogenesis imperfecta: Status: Acute Code(s): Q78.0 - Osteogenesis imperfecta (7) Myofascial pain syndrome: Status: Acute Code(s): M79.18 - Myalgia, other site Plan HPI: Patient is a 39-year-old female with history of Jennifer Danlos syndrome, osteogenesis imperfecta, myofascial pain syndrome, migraines, juvenile osteoporosis, asthma, and mood disorder with history of rectocele, vaginal mesh surgery, urinary retention requiring Van catheterization, which was recently restarted. P atient?presented?to?[facility]?on?924?following?intentional?overdose?on?muscle?rel axers.??Patient?lujan mary?was?immediately?transferred?to?medical?floor?for?urinary?retention;?she?stab ilized?there?and?was?discharged.?? She?presents?again?for?overdose On?gabapentin?and?trazodone,?Which?she?asserts?was?not?intentional (though later admits it was),?saying?she?just?wanted?to?sleep?and?get?relief?from?chronic?pain H owever?she?agrees?it?was?impulsive?and?unsafe.??Patient?currently?denies?any?SI. ??She?reports?howeve r?that?life?has?been?very?difficultff?pain?medications,?having?been?prescribed?o pioids?consistently?for?the?past?24?years,? as?well?as?Ativan.??Patient?agrees?she?needs Help?stabilizing?and?coping. Relevant Medical/psych History: Patient was on opiates scheduled for 24 years to manage chronic medical comorbidities, resulting in hx of multiple fractures/falls and subsequent chronic pain. Pt denies any hx of substance abuse, including cannabis. She did screen positive for Fentanyl at first admission in October 2024 but is adamant she's never used it in her life and no quantitative labs done (leaving Fentanyl use inconclusive). Patients long-time physician of [address] Brigido Dietrich retired and new PCP tapered her off and discontinued all opioid pain management (also tapered and dc'd ativan). Patient reports she has been in constant pain and discomfort since then and has felt very frustrated and challenged to enjoy life, sometimes challenging her desire to live. Discussed?case?with?MAGDA Dunaway from pain management clinic: pt seen on 05/24. MAGDA Dunaway agrees that patients medical comorbidities and subsequent chronic pain syndrome are commonly treated with opioid pain management. She recommends either Butrans patch or preferably Belbucha films (a form of Buprenorphin and titrating it to 150mg BID). Pt is also appropriate to get other nerve blocking treatments at pain clinic who will f/u with pt. Steam Train Driver spoke with patient's PCP Dr. Rubio at [facility] Dr. Rubio reports concurs that patient has Osteogenesis imprefecta, Ehlos Danlos Pt was on opioids for 24 years with prior PCP. With [facility] she was on Oxycodine 30mg QID and Oxycontin 30mg daily. In Sep 2023 pt was admitted to [facility] for concern for overdose. Additionally, there were other concerns including that [facility] notes referenced that patient reported being on a Fentanyl patch, which this provider had never prescribed. Additionally, there was hx of patient needing refills early and a report that her mother had used some of her medications. Also patient had significant weight loss which provider was concerned might have contributed to possible accidental overdose. Because of these concerns provider, clinic repeatedly called patient to come in and discuss pain management and reportedly reached out to her from October until January however patient did not respond or come in for appointments, having missed several. Provider reports that because of lack of communication and ongoing concern that was never addressed, Provider felt it was necessary to taper patient off pain medication which was started in January; patient was also tapered off Ativan. Provider agrees that patient does have significant medical history that is commonly treated with chronic pain medication. Steam Train Driver discussed options with them and Dr. Rubio agrees that starting patient on a buprenorphine product is an acceptable alternative to oxycodone. Vraylar since depressed and hx of manic-esque IMPRESSION: Patient's?depression?and?SI?seem?to?have significant?situational component?as?she?is?No?longer?receiving?pain?management?for?severe,?chronic?pain . P atient?has?no?known?history?of?substance?abuse.??Although?she?did?screen?positiv e?for?fentanyl (on?10/27/2023 and?05/18/2024), No?quantitative?analysis?was?done. ?This?mean that?fentanyl?screen?could?very?well?be?a?false-positive?result (which is not uncommon). Medical?decision?should?not?be?based?on?only?a?positive?screen?for?fentanyl. Patient does struggle with SI and with her chronic?pain?And?poor?support?will?likely?continue?to?produce?mood?instability.? ?Treatment?plan?will?include?parts data writer/team?discussion?with Outpatient?PCP?regarding?plan?for?treatment. Hospital course: 06/05: Continue current regimen and plans 06/06. Continue current plans and regimen. Loperamide was put on hold. Started on simethicone by hospitalist. No indications of GI bleeding currently. -seen by GI: C/o constipation and worsening abdominal distension. Will order CT A/P with IV/PO contrast to assess for SBO/ileus though passage of gas and small amount of stool argues against complete obstruction; however she is at risk given multiple surgeries. If no obstruction will order bowel regimen to address constipation. Continue Van, Urology following. 06/07 Patient reports that she is depressed. She apologized for not being more forthcoming earlier on in says it took her awhile to admitted to herself but she does not want to be in this world anymore... And has a plan to jump in front of a train on discharge. Patient also reports that overdose on trazodone/gabapentin was actually an intentional suicide attempt. She reports a constant deluge of self-deprecating thoughts which include that she is worthless, discussed in, and fat. Steam Train Driver reviewed patient's history of anorexia and patient reports she sees herself as fat every day and eats very little (history of anorexia since 14 years old; was at brought up oral for a month with a feeding tube; she understands that this is a significant cause of her chronic constipation). Despite her SI, patient does want help getting better agrees to try antidepressant medication; parts data writer reviewed options and risks/side effects and patient with Vraylar. Also discussed pain medication management and patient agrees with Belbuca which she has heard of; she also agrees to non opioid pain management and will follow-up with pain management Clinic here at [facility]. Discussed relationship with her mother and she does not SA think her mother struggles with drug addiction but has caught her trying to get into her room, which patient keeps locked, looking for her medications which she has taken in the past. Patient said she reported this to her PCP. Patient does have history of being prescribed fentanyl patch however she did not like them and weaned herself off of them; set had some left over 06/08 Patient remains depressed with suicidal thinking however is trying to be hopeful and has tolerated Vraylar and says will continue, with increased dose; grateful for help getting Belbuca through prior authorization. -Discussed case with urology who recommends remaining with indwelling Van since failed voiding attempt on 06/03; will continue to follow -pt reported and nurse corroborated that Van bag containing urine was blood- tinged; discussed with Urologist, deemed likely micro trauma, and to keep van in place; recently failed voiding trial on 06/03 06/09 Patient reports she remains depressed, with SI. Patient also reports she had a very difficult time sleeping last night feeling very upset following a conversation she had on the phone with her mother. Patient expressed to her mother she is feeling hurt that her mom has not visited or called throughout her admission, even on patient's birthday; she says her mom was on apologetic. Patient also challenged her mom regarding her mom's past comment that patient could burn in hell with her father (who 2 years ago); mom remained unapologetic. Patient tells parts data writer she has no idea why her mom said this other than that her mom is crazy... Subsequently patient reports that throughout the night, she had racing thoughts and no sleep. Discussed medications and patient and pt is eager to try Belbuca Films for pain management, available today dc'd gabapentin; pt said has never helped for pain or anxiety Adding clonidine at bedtime to help w/ sleep, anxiety 06/10 patient reports that Belbuca is helping with pain Patient remains very depressed and continues to have suicidal thoughts, saying she wants to end her life when she leaves the hospital. Patient Says I do not understand myself.. And laments she is gone most of her life without any suicidal ideation and only started this past September. Patient shared about some other reasons that it might be occurring and agrees that she still mourning the loss of her father who was her confidante; dealing with chronic pain having been off pain medications for several months and the ongoing struggles in her relationship with her mother and brother whom she feels are bullying; trying to come to terms with the fact that her mother simply isn't going to be the kind of mother she wishes she had. Patient agrees to medication management. 06/13 still very depressed with SI. Sleeping better however which is helpful and pain medications are also helpful. Patient agrees to increasing Vraylar; agrees to behavioral activation and attending groups. Despite ongoing thoughts about self-harm and ending her life when she is discharge, patient is also future oriented and says she would like to find a new place to live separate from her mother and brother. Asks for help going about that. 06/14 pt remains depressed, positive for SI with a plan but also future oriented talking about changing her living situation. Pt is engaged in treatment, trying to process her suicidal feelings and trying to be hopeful it will resolve. Agrees to adding Wellbutrin. -will likely add Wellbutrin; however, will probably keep Vraylar (maybe at lower dose) since pt has hx of manic-esque episodes (thought not formally diagnosed with bipolar as episode had several contributory factors) 06/15 remains depressed but processing feelings, doing worksheets, talking about her mother. Pt very anxious. -may increase wellbutrin for depression -considered starting Clonazepam 0.5mg BID; pt used to be on as much as 5mg of ativan daily; was weened off so hesitant to restart benzo's; 06/17 increase Wellbutrin 06/20 Over the weekend, patient assessed for infection, starting antibiotic; concerned that indwelling Van catheter is not sustainable; urology consulted and plan was for suprapubic catheter insertion for today. Patient however did not get fully informed of this and was upset to learn that a procedure was planned. She was however able to discuss this at length with parts data writer and urology team and agreed to proceed. 06/21 Dr. Niño decided better to do a cystoscopy 1st and then decide whether not suprapubic catheter verse bladder stimulator; patient consents Seen by infectious disease: She has no urinary concerns at this time..No further antibiotics for now 06/22 Patient discussed conversation she had with her brother that was reassuring. Patient felt understood by him and supported which has lifted her mood. She feels that although she still depressed perhaps some of the depression is lifting and she starting to feel that there is hope of change in her situation. Patient remains very anxious. Earlier she had said she did not want to get back on benzodiazepines, having been on Ativan 5 mg for decades, weaned off only about a year ago. However given patient's struggles with anxiety and the fact that benzos have helped her in the past, discussed restarting a benzodiazepine, this time clonazepam 0.5 mg b.i.d.; parts data writer discussed at length risks for addiction and the constant desire to have more. Patient said she very much does not want that to happen and feels that she will be able to minimize her use 06/23 Depressed, with intermittent SI. very anxious and with despairing thoughts has upcoming anniversary of her father's which is this July 03; will try to make it remembrance day and change the perspective. -Feeling better about catheter and plan; parts data writer discussed with urology who met with patient and plan is for July 05 to move forward with stimulator -patient attending groups and engaged in treatment 06/24 a little better; mood up and down and still intermittent SI but patient is working on being hopeful employee numerous coping skills. Agrees to increase Wellbutrin 06/25 Patient continues to report depressed mood; told nurse that she remains purging daily and still plans to attempt suicide when she leaves. However on the unit, she seems more relaxed. Patient shared with parts data writer her plan to remember her father on the anniversary of his . 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 Currently she is eating enough. As this is a chronic problem that that has gone on for over 20 years, and with which patient has been able to cope with on her own, without needing hospitalizations or [facility] admissions since teenage years, parts data writer does not expect that it will resolve during this inpatient stay and does not believe that it needs to. 06/27 very tearful sad; suicidal; pushing self to be around others, groups -talked about eating struggles, purging; trying not to 06/28 do not think that medication management will change patients depression at this time. Rather she needs continued time to process her feelings of despair, grief about her fathers , hx of trauma, feeling her future is bleak. -parts data writer engaged in psychodynamic psychotherapy 06/29 same presentation; parts data writer engaged in psychodynamic psychotherapy 06/30: feels clonidine and klonopin helpful for anxiety. asking for pain med change; deferred for return of attending, does not appear in pain. Q5s for SI/van. staff reporter feel pt is not substantially worse than her recent inpatient baseline, but perhaps looking a bit better today than yesterday. 07/01: appears behaving as per usual for inpatient context. increase seroquel to 150 QHS for insomnia and appetite stimulation. continue current mgmt otherwise. 07/02: Continues depressed with suicidal thoughts. Says she wants to starve self. VSS. Check metabolic panel. 07/04 Patient continues to lament her past and anger and frustration with specific relationships. Says still feels hopeless can not stop thinking about ending her life. Discussed more about taking responsibility for feelings and while anger and frustration at others can be appropriate, it is also necessary to work on coping with such feelings. Patient said she will continue to try. Discussed history and patient has not really had SI till this October and discussed how these feelings will also pass... Discussed medication management and patient agreed to trial of lithium for continued depression and chronic SI. and increasing Vraylar -patient considers ending her life by starving herself though she has been eating on the unit. -discussed surgical implantation of bladder stimulator tomorrow 07/09: Continue current regimen and plans for stabilization and medication management PLAN: CV? Q 5s due to?indwelling?Van Continue clonazepam 0.5 mg b.i.d. Increase to WEllbutrin XL 450 mg for continued depression (pt adamant about not starting anti-depressant with risk of wt gain) Continue Vraylar 4.5 mg daily (Vraylar chosen since patient has depression but also history of manic type behaviors, possibly manic episode with some delusions and AH) Continue Belbuca 75mcg films BID for pain management (history of fentanyl patch, morphine, oxycodone, OxyContin) clonidine prn Continue Flagyl 500 q.12 hours x7 days placed for bacterial vaginosis; id examined patient and reports no need for any additional antibiotic regimen Urology appointment: July 05 for placement of bladder stimulator (With Dr. Leiva) Cystoscopy Findings: Bladder wall thickening, no vaginal or bladder mesh, no evidence outlet obstruction Hospitalist note 06/18 Receiving Pyridium UA 06/18 positive for 4+ bacteria, greater than 50 WBC, large leukocyte esterase positive nitrates Urine culture pending Urine culture 05/25 and 06/01 grew Raissa glabrata patient received Diflucan 200 mg daily from 06/01 through 06/15 Bacterial vaginosis PCR positive Raissa grew size/glabrata detected Due to persistent symptoms of vaginal pain/discharge recommend Infectious Disease consultation Follow urine culture. Patient educated on: diagnosis, medication risk/benefits and medical condition Reason for continued inpatient stay Substantial Risk for: med/psych decompensation Time Spent With Patient Time: Total time managing care of this patient today ____ minutes.
--- NOTE | 2024-07-09 11:57 | PC.NURSE ---
This morning pt reported that she did not feel the trial bladder stimulator for almost seven hours ([id number]). Pt stated she woke around 0200 and remained awake for remainder of night. [employer] then spoke to Alysa, the rep for the device, this morning. Alysa stated that because this is an external trial it does require the need to perform a daily connect to wake it up . Alysa recommended that every morning the pt use the remotes to connect and select the appropriate level. Alysa explained the need to do this was because it is an external device with an external box, and as such there was a small chance that the device could turn off if the pt lays in a certain position and hits the small button on the external box. Alysa stated that while the chances were low, the potential existed which warranted the need for a daily connect. Alysa also explained that the permanent implant would be under the skin and would stay on all the time, but the external trial should be connected daily.
--- NOTE | 2024-07-09 12:08 | PC.NURSE ---
In regards to bladder stimulator, pt used right remote to connect to the system and increased level to 3. Pt then used left remote to connect and increased level to 5. Pt reported more difficulty feeling stimulation on left side, and subsequently had to increase to level 5 before she felt stimulation. Pt stated When I had surgery they told me the left side was weaker . Remotes stored behind nursing station after pt connected and set her levels.
--- NOTE | 2024-07-09 12:44 | P.PNPSI_ITS ---
Subjective Subjective Date of Service: 07/08/24 Reason For Visit: Sa Interim History: Late?entry?note?for?patient?seen?on?07/08;?discussed?with?team P atient?still?not?voiding?on?her?own?however?her?remains?committed?to?the?process .?? R emains?intermittent?SI?symptoms?frustrated?at?she?is?on?a?one-to-one?accepts?carrie t?she?is?making?suicidal C omments?as?well?as?purging?it?patient?understands?that?her?body?healing?from?sti m?implantation,?and B dana?working?well?requires?nutrition?and?patient?said?she?is?changing?her?comfort ?eating?disorder?to?eat. Mental Status Exam Mental Status Exam Narrative: Pt is alert and oriented; behavior is cooperative, calm, friendly; cachectic; dressed in hospital attire with adequate hygiene; mood is described as ok...not good and affect congruent, downcast; eye contact appropriate; Speech is a normal rate, volume and prosody; no psychomotor retardation present; thought process is organized and goal directed; Thought content is intermittently on hopeless thoughts; medical comorbidities; otherwise pertinent to relevant topics and without any delusional content, paranoid ideations or grandiosity; intermittent SI thoughts, sometimes passive sometimes with vague plan; no HI. There is no evidence of perceptual disturbance. Patients insight and judgment impaired Diagnostics Vital Signs (24Hr): Vital Signs - 24 hr 07/08/24 20:00 07/09/24 08:00 Temperature 97.3 F 97.5 F Pulse Rate 93 88 Respiratory Rate 18 16 Blood Pressure 123/89 132/83 Pulse Oximetry 100 100 Oxygen Delivery Method Room Air Room Air BMI result Body Mass Index 16.1 Labs 07/07/24 14:53 07/07/24 14:53 Labs: Laboratory Results - last 48 hr 07/07/24 14:53 WBC 7.5 RBC 4.27 Hgb 13.9 Hct 41.3 MCV 96.7 MCH 32.6 MCHC 33.7 RDW 13.5 Plt Count 272 MPV 9.5 Immature Gran % (Auto) 0.3 Neut % (Auto) 63.9 Lymph % (Auto) 23.1 [place] % (Auto) 10.6 Eos % (Auto) 1.3 Baso % (Auto) 0.8 Lymph # (Auto) 1.7 [place] # (Auto) 0.8 Eos # (Auto) 0.1 Baso # (Auto) 0.1 Abs Immat Gran (auto) 0.02 Absolute Neuts (auto) 4.8 Absolute Nucleated RBC 0.000 Nucleated RBC % (auto) 0.0 Sodium 138 Potassium 3.6 Chloride 105 Carbon Dioxide 26 Anion Gap 11 L BUN 6 L Creatinine 0.84 Estim Creat Clear Calc 53.2 Estimated GFR > 60 Random Glucose 107 Calcium 9.6 D Total Bilirubin 0.3 AST 18 ALT 13 Alkaline Phosphatase 53 Total Protein 7.2 Albumin 4.5 Imaging Radiology Impressions: ITS Impressions KUB X-Ray 06/03/24 19:55 IMPRESSION: Increased amount of stool in the colon suggesting constipation. Please correlate with clinical presentation. Electronically signed by: Oneida Pham MD 06/04/2024 07:31 AM EDT Renal Ultrasound 06/04/24 14:49 IMPRESSION: No ultrasound evidence of renal obstruction or hydronephrosis. Limited visualization of the left kidney obscured by bowel gas, exam otherwise unremarkable. Electronically signed by: Oneida Pham MD 06/05/2024 12:56 PM EDT Abdomen/Pelvis CT 06/04/24 18:33 IMPRESSION: Severe constipation. Otherwise unremarkable CT abdomen and pelvis. Fleischner guidelines were followed. Electronically signed by: Deyvi Collins MD 06/04/2024 07:05 PM EDT Ribs X-Ray 06/19/24 10:15 IMPRESSION: 1. Mild degenerative changes of the left shoulder. 2. No left-sided rib fracture. Electronically signed by: Orlando Lindsey MD 06/19/2024 10:50 AM EDT Shoulder X-Ray 06/19/24 10:15 IMPRESSION: 1. Mild degenerative changes of the left shoulder. 2. No left-sided rib fracture. Electronically signed by: Orlando Lindsey MD 06/19/2024 10:50 AM EDT Medications Medications Current Medications Acetaminophen (Acetaminophen 325 Mg Tablet) 650 mg PO Q8H ELMO Last Admin: 07/09/24 08:24 Dose: 650 mg Al Hydroxide/Mg Hydroxide (Magnesium Hydrox/Alum Hydrox 30 Ml Oral.Susp) 30 ml PO Q6H PRN PRN Reason: Heartburn/Nausea Albuterol Sulfate (Albuterol Sulfate 90 Mcg 8 Gm Inhaler) 2 puff INHALE QID PRN PRN Reason: Shortness Of Breath Last Admin: 07/08/24 09:54 Dose: 2 puff Ascorbic Acid (Ascorbic Acid 500 Mg Tablet) 1,000 mg PO DAILY ELMO Last Admin: 07/09/24 08:23 Dose: 1,000 mg Benzocaine (Throat Lozenge, Medicated Lozenge) 1 lozenge MUCOUS MEM Q2H PRN PRN Reason: Sore Throat Last Admin: 06/30/24 22:42 Dose: 1 lozenge Bethanechol Chloride (Bethanechol Chloride 25 Mg Tablet) 25 mg PO TID [facility] Last Admin: 07/09/24 08:23 Dose: 25 mg Bisacodyl (Bisacodyl 5 Mg Tablet.Dr) 10 mg PO BEDTIME ELMO Last Admin: 07/08/24 23:05 Dose: Not Given Bupropion HCl (Bupropion Hcl Xl 150 Mg Tab.Er.24h) 450 mg PO DAILY [facility] Last Admin: 07/09/24 08:23 Dose: 450 mg Cariprazine (Cariprazine Hcl 3 Mg Capsule) 6 mg PO DAILY [facility] Last Admin: 07/09/24 08:23 Dose: 6 mg Clonazepam (Clonazepam 0.5 Mg Tablet) 0.5 mg PO BID@0900,1700 ELMO Last Admin: 07/09/24 08:23 Dose: 0.5 mg Clonidine HCl (Clonidine Hcl 0.1 Mg Tablet) 0.1 mg PO BEDTIME ELMO; Protocol Last Admin: 07/08/24 23:00 Dose: 0.1 mg Clonidine HCl (Clonidine Hcl 0.1 Mg Tablet) 0.1 mg PO Q4H PRN; Protocol PRN Reason: anxiety Last Admin: 07/07/24 12:52 Dose: 0.1 mg Hydroxyzine HCl (Hydroxyzine Hcl 25 Mg Tablet) 25 mg PO Q6H PRN PRN Reason: Anxiety Last Admin: 07/09/24 02:41 Dose: 25 mg Lactulose (Lactulose 20 Gm/30 Ml Solution) 40 gm PO DAILY [facility] Last Admin: 07/09/24 08:29 Dose: Not Given Lidocaine (Lidocaine 4 % Patch Adh..Patch) 1 patch TRANSDERMA DAILY [facility]; Protocol Last Admin: 07/09/24 08:29 Dose: Not Given Lidocaine (Lidocaine 4 % Patch Adh..Patch) 2 patch TRANSDERMA DAILY [facility]; Protocol Last Admin: 07/09/24 08:29 Dose: Not Given Lidocaine HCl (Lidocaine Hcl 2 % Urojet 10 Ml Jel.Pf.Luis) 10 ml TOPICAL BID PRN PRN Reason: Pain, Severe (Pain Scale 7-10) Last Admin: 06/19/24 22:05 Dose: 10 ml [place] Carbonate ([place] Carbonate Er 300 Mg Tablet.Er) 600 mg PO BEDTIME ELMO Last Admin: 07/08/24 23:03 Dose: 600 mg Loperamide HCl (Loperamide Hcl 2 Mg Capsule) 2 mg PO Q4H PRN PRN Reason: Diarrhea Magnesium Hydroxide (Milk Of Magnesia 30 Ml Oral.Susp) 30 ml PO DAILY PRN PRN Reason: Constipation Last Admin: 06/04/24 05:22 Dose: 30 ml Multi-Ingred Cream/Lotion/Oil/Oint (Mineral Oil/Petrolatum,White 106 Gm Tube) 1 appl TOPICAL BID PRN; Protocol PRN Reason: Dry Skin Last Admin: 06/13/24 21:44 Dose: 1 appl Patient Own (Belbuca (75mcg Buccal Films)) 1 each PO BID [facility] Last Admin: 07/09/24 08:24 Dose: 1 each Ondansetron HCl (Ondansetron Odt 4 Mg Tab.Rapdis) 4 mg TRANSLINGU Q6H PRN PRN Reason: Nausea and Vomiting Last Admin: 06/18/24 16:17 Dose: 4 mg Polyethylene Glycol (Polyethylene Glycol 3350 17 Gm Powd.Pack) 17 gm PO BID [facility] Last Admin: 07/09/24 08:29 Dose: Not Given Quetiapine Fumarate (Quetiapine Fumarate 50 Mg Tablet) 150 mg PO BEDTIME ELMO Last Admin: 07/08/24 23:01 Dose: 150 mg Senna/Docusate Sodium (Sennosides/Docusate Sodium Tablet) 2 tab PO BID [facility] Last Admin: 11/16/24 08:30 Dose: Not Given Simethicone (Simethicone 80 Mg Tab.Chew) 160 mg PO BID PRN PRN Reason: bloating/gas Last Admin: 06/07/24 11:06 Dose: 160 mg Tamsulosin HCl (Tamsulosin Hcl 0.4 Mg Capsule) 0.4 mg PO BEDTIME ELMO Last Admin: 07/08/24 23:01 Dose: 0.4 mg Tramadol HCl (Tramadol Hcl 50 Mg Tablet) 50 mg PO Q6H PRN PRN Reason: Pain, Severe (Pain Scale 7-10) Last Admin: 07/09/24 08:43 Dose: 50 mg Trimethoprim/Sulfamethoxazole (Sulfamethox/Trimeth 800/160 Tablet) 1 tab PO Q12H ELMO Last Admin: 07/09/24 08:24 Dose: 1 tab Allergies Allergies Allergy/AdvReac Type Severity Reaction Status Date / Time azithromycin Allergy Itching Verified 06/21/24 12:35 levofloxacin [From Levaquin] Allergy Nightmare Verified 06/21/24 12:35 nitrofurantoin Allergy Itching Verified 06/21/24 12:35 [From Macrodantin] Assessment & Plan Assessment & Plan (1) MDD (major depressive disorder), recurrent episode, moderate: Status: Acute Code(s): F33.1 - Major depressive disorder, recurrent, moderate (2) PTSD (post-traumatic stress disorder): Status: Acute Code(s): F43.10 - Post-traumatic stress disorder, unspecified (3) Voiding dysfunction: Status: Acute Code(s): N39.8 - Other specified disorders of urinary system Assessment and Plan: She has no urinary concerns at this time No further antibiotics for now (4) Urinary retention: Status: Acute Code(s): R33.9 - Retention of urine, unspecified (5) Jennifer-Danlos disease: Status: Acute Code(s): Q79.60 - Jennifer-Danlos syndrome, unspecified (6) Osteogenesis imperfecta: Status: Acute Code(s): Q78.0 - Osteogenesis imperfecta (7) Myofascial pain syndrome: Status: Acute Code(s): M79.18 - Myalgia, other site Plan HPI: Patient is a 39-year-old female with history of Jennifer Danlos syndrome, osteogenesis imperfecta, myofascial pain syndrome, migraines, juvenile osteoporosis, asthma, and mood disorder with history of rectocele, vaginal mesh surgery, urinary retention requiring Van catheterization, which was recently restarted. P atient?presented?to?[facility]?on?924?following?intentional?overdose?on?muscle?rel axers.??Patient?lujan mary?was?immediately?transferred?to?medical?floor?for?urinary?retention;?she?stab ilized?there?and?was?discharged.?? She?presents?again?for?overdose On?gabapentin?and?trazodone,?Which?she?asserts?was?not?intentional (though later admits it was),?saying?she?just?wanted?to?sleep?and?get?relief?from?chronic?pain H owever?she?agrees?it?was?impulsive?and?unsafe.??Patient?currently?denies?any?SI. ??She?reports?howeve r?that?life?has?been?very?difficultff?pain?medications,?having?been?prescribed?o pioids?consistently?for?the?past?24?years,? as?well?as?Ativan.??Patient?agrees?she?needs Help?stabilizing?and?coping. Relevant Medical/psych History: Patient was on opiates scheduled for 24 years to manage chronic medical comorbidities, resulting in hx of multiple fractures/falls and subsequent chronic pain. Pt denies any hx of substance abuse, including cannabis. She did screen positive for Fentanyl at first admission in October 2024 but is adamant she's never used it in her life and no quantitative labs done (leaving Fentanyl use inconclusive). Patients long-time physician of [address] Brigido Dietrich retired and new PCP tapered her off and discontinued all opioid pain management (also tapered and dc'd ativan). Patient reports she has been in constant pain and discomfort since then and has felt very frustrated and challenged to enjoy life, sometimes challenging her desire to live. Discussed?case?with?MAGDA Dunaway from pain management clinic: pt seen on 05/24. MAGDA Dunaway agrees that patients medical comorbidities and subsequent chronic pain syndrome are commonly treated with opioid pain management. She recommends either Butrans patch or preferably [place] films (a form of Buprenorphin and titrating it to 150mg BID). Pt is also appropriate to get other nerve blocking treatments at pain clinic who will f/u with pt. Assistant To The Director spoke with patient's PCP Dr. Rubio at [facility] Dr. Rubio reports concurs that patient has Osteogenesis imprefecta, Valentes Rejis Pt was on opioids for 24 years with prior PCP. With [facility] she was on Oxycodine 30mg QID and Oxycontin 30mg daily. In Sep 2023 pt was admitted to [facility] for concern for overdose. Additionally, there were other concerns including that [facility] notes referenced that patient reported being on a Fentanyl patch, which this provider had never prescribed. Additionally, there was hx of patient needing refills early and a report that her mother had used some of her medications. Also patient had significant weight loss which provider was concerned might have contributed to possible accidental overdose. Because of these concerns provider, clinic repeatedly called patient to come in and discuss pain management and reportedly reached out to her from October until January however patient did not respond or come in for appointments, having missed several. Provider reports that because of lack of communication and ongoing concern that was never addressed, Provider felt it was necessary to taper patient off pain medication which was started in January; patient was also tapered off Ativan. Provider agrees that patient does have significant medical history that is commonly treated with chronic pain medication. Assistant To The Director discussed options with them and Dr. Rubio agrees that starting patient on a buprenorphine product is an acceptable alternative to oxycodone. Vraylar since depressed and hx of manic-esque IMPRESSION: Patient's?depression?and?SI?seem?to?have significant?situational component?as?she?is?No?longer?receiving?pain?management?for?severe,?chronic?pain . P atient?has?no?known?history?of?substance?abuse.??Although?she?did?screen?positiv e?for?fentanyl (on?10/27/2023 and?05/18/2024), No?quantitative?analysis?was?done. ?This?mean that?fentanyl?screen?could?very?well?be?a?false-positive?result (which is not uncommon). Medical?decision?should?not?be?based?on?only?a?positive?screen?for?fentanyl. Patient does struggle with SI and with her chronic?pain?And?poor?support?will?likely?continue?to?produce?mood?instability.? ?Treatment?plan?will?include?health science writer/team?discussion?with Outpatient?PCP?regarding?plan?for?treatment. Hospital course: 06/05: Continue current regimen and plans 06/06. Continue current plans and regimen. Loperamide was put on hold. Started on simethicone by hospitalist. No indications of GI bleeding currently. -seen by GI: C/o constipation and worsening abdominal distension. Will order CT A/P with IV/PO contrast to assess for SBO/ileus though passage of gas and small amount of stool argues against complete obstruction; however she is at risk given multiple surgeries. If no obstruction will order bowel regimen to address constipation. Continue Opal, Urology following. 06/07 Patient reports that she is depressed. She apologized for not being more forthcoming earlier on in says it took her awhile to admitted to herself but she does not want to be in this world anymore... And has a plan to jump in front of a train on discharge. Patient also reports that overdose on trazodone/gabapentin was actually an intentional suicide attempt. She reports a constant deluge of self-deprecating thoughts which include that she is worthless, discussed in, and fat. 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 Despite her SI, patient does want help getting better agrees to try antidepressant medication; health science writer reviewed options and risks/side effects and patient with [facility]. Also discussed pain medication management and patient agrees with Vincentca which she has heard of; she also agrees to non opioid pain management and will follow-up with pain management Clinic here at [facility]. Discussed relationship with her mother and she does not SA think her mother struggles with drug addiction but has caught her trying to get into her room, which patient keeps locked, looking for her medications which she has taken in the past. Patient said she reported this to her PCP. Patient does have history of being prescribed fentanyl patch however she did not like them and weaned herself off of them; set had some left over 06/08 Patient remains depressed with suicidal thinking however is trying to be hopeful and has tolerated Vraylar and says will continue, with increased dose; grateful for help getting Belbuca through prior authorization. -Discussed case with urology who recommends remaining with indwelling Van since failed voiding attempt on 06/03; will continue to follow -pt reported and nurse corroborated that Van bag containing urine was blood- tinged; discussed with Urologist, deemed likely micro trauma, and to keep van in place; recently failed voiding trial on 06/03 06/09 Patient reports she remains depressed, with SI. Patient also reports she had a very difficult time sleeping last night feeling very upset following a conversation she had on the phone with her mother. Patient expressed to her mother she is feeling hurt that her mom has not visited or called throughout her admission, even on patient's birthday; she says her mom was on apologetic. Patient also challenged her mom regarding her mom's past comment that patient could burn in hell with her father (who 2 years ago); mom remained unapologetic. Patient tells health science writer she has no idea why her mom said this other than that her mom is crazy... Subsequently patient reports that throughout the night, she had racing thoughts and no sleep. Discussed medications and patient and pt is eager to try Belbuca Films for pain management, available today dc'd gabapentin; pt said has never helped for pain or anxiety Adding clonidine at bedtime to help w/ sleep, anxiety 06/10 patient reports that Belbuca is helping with pain Patient remains very depressed and continues to have suicidal thoughts, saying she wants to end her life when she leaves the hospital. Patient Says I do not understand myself.. And laments she is gone most of her life without any suicidal ideation and only started this past September. Patient shared about some other reasons that it might be occurring and agrees that she still mourning the loss of her father who was her confidante; dealing with chronic pain having been off pain medications for several months and the ongoing struggles in her relationship with her mother and brother whom she feels are bullying; trying to come to terms with the fact that her mother simply isn't going to be the kind of mother she wishes she had. Patient agrees to medication management. 06/13 still very depressed with SI. Sleeping better however which is helpful and pain medications are also helpful. Patient agrees to increasing Vraylar; agrees to behavioral activation and attending groups. Despite ongoing thoughts about self-harm and ending her life when she is discharge, patient is also future oriented and says she would like to find a new place to live separate from her mother and brother. Asks for help going about that. 06/14 pt remains depressed, positive for SI with a plan but also future oriented talking about changing her living situation. Pt is engaged in treatment, trying to process her suicidal feelings and trying to be hopeful it will resolve. Agrees to adding Wellbutrin. -will likely add Wellbutrin; however, will probably keep Vraylar (maybe at lower dose) since pt has hx of manic-esque episodes (thought not formally diagnosed with bipolar as episode had several contributory factors) 06/15 remains depressed but processing feelings, doing worksheets, talking about her mother. Pt very anxious. -may increase wellbutrin for depression -considered starting Clonazepam 0.5mg BID; pt used to be on as much as 5mg of ativan daily; was weened off so hesitant to restart benzo's; 06/17 increase Wellbutrin 06/20 Over the weekend, patient assessed for infection, starting antibiotic; concerned that indwelling Van catheter is not sustainable; urology consulted and plan was for suprapubic catheter insertion for today. Patient however did not get fully informed of this and was upset to learn that a procedure was planned. She was however able to discuss this at length with health science writer and urology team and agreed to proceed. 06/21 Dr. Niño decided better to do a cystoscopy 1st and then decide whether not suprapubic catheter verse bladder stimulator; patient consents Seen by infectious disease: She has no urinary concerns at this time..No further antibiotics for now 06/22 Patient discussed conversation she had with her brother that was reassuring. Patient felt understood by him and supported which has lifted her mood. She feels that although she still depressed perhaps some of the depression is lifting and she starting to feel that there is hope of change in her situation. Patient remains very anxious. Earlier she had said she did not want to get back on benzodiazepines, having been on Ativan 5 mg for decades, weaned off only about a year ago. However given patient's struggles with anxiety and the fact that benzos have helped her in the past, discussed restarting a benzodiazepine, this time clonazepam 0.5 mg b.i.d.; health science writer discussed at length risks for addiction and the constant desire to have more. Patient said she very much does not want that to happen and feels that she will be able to minimize her use 06/23 Depressed, with intermittent SI. very anxious and with despairing thoughts has upcoming anniversary of her father's which is this July 03; will try to make it remembrance day and change the perspective. -Feeling better about catheter and plan; health science writer discussed with urology who met with patient and plan is for July 05 to move forward with stimulator -patient attending groups and engaged in treatment 06/24 a little better; mood up and down and still intermittent SI but patient is working on being hopeful employee numerous coping skills. Agrees to increase Wellbutrin 06/25 Patient continues to report depressed mood; told nurse that she remains purging daily and still plans to attempt suicide when she leaves. However on the unit, she seems more relaxed. Patient shared with health science writer her plan to remember her father on the anniversary of his . 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 Currently she is eating enough. As this is a chronic problem that that has gone on for over 20 years, and with which patient has been able to cope with on her own, without needing hospitalizations or [facility] admissions since teenage years, health science writer does not expect that it will resolve during this inpatient stay and does not believe that it needs to. 06/27 very tearful sad; suicidal; pushing self to be around others, groups -talked about eating struggles, purging; trying not to 06/28 do not think that medication management will change patients depression at this time. Rather she needs continued time to process her feelings of despair, grief about her fathers , hx of trauma, feeling her future is bleak. -health science writer engaged in psychodynamic psychotherapy 06/29 same presentation; health science writer engaged in psychodynamic psychotherapy 06/30: feels clonidine and klonopin helpful for anxiety. asking for pain med change; deferred for return of attending, does not appear in pain. Q5s for SI/van. staff weapons officer feel pt is not substantially worse than her recent inpatient baseline, but perhaps looking a bit better today than yesterday. 07/01: appears behaving as per usual for inpatient context. increase seroquel to 150 QHS for insomnia and appetite stimulation. continue current mgmt otherwise. 07/02: Continues depressed with suicidal thoughts. Says she wants to starve self. VSS. Check metabolic panel. 07/04 Patient continues to lament her past and anger and frustration with specific relationships. Says still feels hopeless can not stop thinking about ending her life. Discussed more about taking responsibility for feelings and while anger and frustration at others can be appropriate, it is also necessary to work on coping with such feelings. Patient said she will continue to try. Discussed history and patient has not really had SI till this October and discussed how these feelings will also pass... Discussed medication management and patient agreed to trial of lithium for continued depression and chronic SI. and increasing Vraylar -patient considers ending her life by starving herself though she has been eating on the unit. -discussed surgical implantation of bladder stimulator tomorrow 07/05 received?bladder?stimulator;?remains?with?indwelling?catheter?which?will?be?nancy floyd?tomorrow?or?the?following?day. -increased?Vraylar?to?6?mg 07/06 continue?with?treatment?plan;??Aba Good?helping?with?implanted?bladder?stim 07/07 adjusting to new device, bladder scan; discussed?how?history?of?trauma?left?patient?needing?to?a?certain?sense?of?contr ol [place]?her?life?in?body?which?likely?plays?a?part?into?developing?anorexia,?SI...?? This?idea?resonate?with?patient? w ho?agreed?that?she?is?overly?focused?on?blaming?others?and?giving?to?little?atte ntion?to?how?to?work?on Her?own?personal?issues. 1 09/07?continue?current?treatment?plan?except?will?increase?lithium?to?help?with?d epression P atient?continues?to?make?statements?that?she?is?thinking?of?ending?her?life.??In ?the?same?conversation?however?she?will?also?discuss H er?efforts?to?move?out?of?her?mother's?house?and?get?her?own?place?to?live;?she? talks?about?being?able?to?bear?living?there?while She?makes?plans?to?move?out.? PLAN: CV? 1:1 due?to?wires?from?bladder?stem Continue clonazepam 0.5 mg b.i.d. Added?tramadol?for?breakthrough?pain Continue?WEllbutrin XL 450 mg for continued depression (pt adamant about not starting anti-depressant with risk of wt gain) Continue Vraylar 6 mg daily (Vraylar chosen since patient has depression but also history of manic type behaviors, possibly manic episode with some delusions and AH) Continue Belbuca 75mcg films BID for pain management (history of fentanyl patch, morphine, oxycodone, OxyContin) clonidine prn Continue Flagyl 500 q.12 hours x7 days placed for bacterial vaginosis; id examined patient and reports no need for any additional antibiotic regimen Urology appointment: July 05 for placement of bladder stimulator (With Dr. Leiva) Cystoscopy Findings: Bladder wall thickening, no vaginal or bladder mesh, no evidence outlet obstruction Hospitalist note 06/18 Receiving Pyridium UA 06/18 positive for 4+ bacteria, greater than 50 WBC, large leukocyte esterase positive nitrates Urine culture pending Urine culture 05/25 and 06/01 grew Raissa glabrata patient received Diflucan 200 mg daily from 06/01 through 06/15 Bacterial vaginosis PCR positive Raissa grew size/glabrata detected Due to persistent symptoms of vaginal pain/discharge recommend Infectious Disease consultation Follow urine culture. Patient educated on: diagnosis, medication risk/benefits and medical condition Patient educated on: diagnosis, medication risk/benefits, therapeutic strategies and medical condition Informed Consent: understands Reason for continued inpatient stay Substantial Risk for: harm to self, rapid decompensation and med/psych decompensation Time Spent With Patient Time: Total time managing care of this patient today ____ minutes.
--- NOTE | 2024-07-09 15:27 | PC.NURSE ---
Pt unable to void despite attempts made sitting on toilet. In afternoon pt reported bladder pressure. 1450 bladder scan showed 345ml. At 1500 pt was straight cath for 425ml. Pt reported immediate relief from bladder pressure following straight cath.
[2024-07-09 16:17] VITALS: TEMP 37.2
[2024-07-09 19:48] VITALS: BP 117/84; PULSE 89; RESP 18; TEMP 36.6; O2SAT 97
[2024-07-09] MEDS: Sennosides/Docusate Sodium TABLET 2 TAB PO (21:58)
[2024-07-09] MEDS: Tamsulosin HCL 0.4 MG CAPSULE PO (21:58)
[2024-07-09] MEDS: Lithium Carbonate ER 300 MG TABLET.ER 600 MG PO (21:59)
[2024-07-09] MEDS: cloNIDine HCL 0.1 MG TABLET PO (21:59)
[2024-07-09] MEDS: QUEtiapine Fumarate 50 MG TABLET 150 MG PO (21:59)
[2024-07-10] MEDS: traMADoL HCL 50 MG TABLET PO ×3 (06:30→19:18)
[2024-07-10] MEDS: Acetaminophen 325 MG TABLET 650 MG PO ×3 (06:30→23:38)
[2024-07-10 07:58] VITALS: BP 121/65; PULSE 85; RESP 16; TEMP 36.4; O2SAT 97
[2024-07-10] MEDS: clonazePAM 0.5 MG TABLET PO ×2 (08:29→16:06)
[2024-07-10] MEDS: Bethanechol Chloride 25 MG TABLET PO ×3 (08:29→21:09)
[2024-07-10] MEDS: Cariprazine HCl 3 MG CAPSULE 6 MG PO (08:29)
[2024-07-10] MEDS: Sulfamethox/Trimeth 800/160 TABLET 1 TAB PO ×2 (08:29→21:09)
[2024-07-10] MEDS: buPROPion HCl XL 150 MG TAB.ER.24H 450 MG PO (08:29)
[2024-07-10] MEDS: Ascorbic Acid 500 MG TABLET 1000 MG PO (08:29)
[2024-07-10] MEDS: BUPRENORPHINE 75 MCG 1 EACH PO (08:30)
--- NOTE | 2024-07-10 10:08 | P.PNPSI_ITS ---
Subjective Subjective Date of Service: 07/10/24 Reason For Visit: SI Subjective Notes: Conditional Voluntary Interim History: Patient was seen and discussed in rounds today. Records and plans were reviewed. She continues to be on one-to-one. She continues to not be able to urinate on her own and is getting catheterized with adequate output. Passive suicidal ideations at baseline. No active plans. No other complaints. No changes were made today Review of Systems Review of Systems Urinary retention Yes all other systems are reviewed and are negative Mental Status Exam Mental Status Exam Narrative: In today's visit she is alert, oriented and pleasant. Normal speech. Good eye contact. Affect is varied. No signs of psychosis. No overt depression or anxiety. No active suicidal ideations but passive ideations chronically present. Able to move all limbs but gait could not be observed. Cognitively is intact. Judgment is intact Diagnostics Vital Signs (24Hr): Vital Signs - 24 hr 07/09/24 16:17 07/09/24 19:48 07/10/24 07:58 Temperature 98.9 F 98 F 97.5 F Pulse Rate 89 85 Respiratory Rate 18 16 Blood Pressure 117/84 121/65 Pulse Oximetry 97 97 Oxygen Delivery Method Room Air Room Air BMI result Body Mass Index 16.1 Labs 07/07/24 14:53 07/07/24 14:53 Imaging Radiology Impressions: ITS Impressions KUB X-Ray 06/03/24 19:55 IMPRESSION: Increased amount of stool in the colon suggesting constipation. Please correlate with clinical presentation. Electronically signed by: Oneida Pham MD 06/04/2024 07:31 AM EDT Renal Ultrasound 06/04/24 14:49 IMPRESSION: No ultrasound evidence of renal obstruction or hydronephrosis. Limited visualization of the left kidney obscured by bowel gas, exam otherwise unremarkable. Electronically signed by: Oneida Pham MD 06/05/2024 12:56 PM EDT Abdomen/Pelvis CT 06/04/24 18:33 IMPRESSION: Severe constipation. Otherwise unremarkable CT abdomen and pelvis. Fleischner guidelines were followed. Electronically signed by: Deyvi Collins MD 06/04/2024 07:05 PM EDT Ribs X-Ray 06/19/24 10:15 IMPRESSION: 1. Mild degenerative changes of the left shoulder. 2. No left-sided rib fracture. Electronically signed by: Orlando Lindsey MD 06/19/2024 10:50 AM EDT RP Shoulder X-Ray 06/19/24 10:15 IMPRESSION: 1. Mild degenerative changes of the left shoulder. 2. No left-sided rib fracture. Electronically signed by: Orlando Lindsey MD 06/19/2024 10:50 AM EDT RP Medications Medications Current Medications Acetaminophen (Acetaminophen 325 Mg Tablet) 650 mg PO Q8H [facility] Last Admin: 07/10/24 06:30 Dose: 650 mg Al Hydroxide/Mg Hydroxide (Magnesium Hydrox/Alum Hydrox 30 Ml Oral.Susp) 30 ml PO Q6H PRN PRN Reason: Heartburn/Nausea Albuterol Sulfate (Albuterol Sulfate 90 Mcg 8 Gm Inhaler) 2 puff INHALE QID PRN PRN Reason: Shortness Of Breath Last Admin: 07/08/24 09:54 Dose: 2 puff Ascorbic Acid (Ascorbic Acid 500 Mg Tablet) 1,000 mg PO DAILY [facility] Last Admin: 07/10/24 08:29 Dose: 1,000 mg Benzocaine (Throat Lozenge, Medicated Lozenge) 1 lozenge MUCOUS MEM Q2H PRN PRN Reason: Sore Throat Last Admin: 06/30/24 22:42 Dose: 1 lozenge Bethanechol Chloride (Bethanechol Chloride 25 Mg Tablet) 25 mg PO TID [facility] Last Admin: 07/10/24 08:29 Dose: 25 mg Bisacodyl (Bisacodyl 5 Mg Tablet.Dr) 10 mg PO BEDTIME [facility] Last Admin: 07/09/24 22:20 Dose: Not Given Bupropion HCl (Bupropion Hcl Xl 150 Mg Tab.Er.24h) 450 mg PO DAILY [facility] Last Admin: 07/10/24 08:29 Dose: 450 mg Cariprazine (Cariprazine Hcl 3 Mg Capsule) 6 mg PO DAILY [facility] Last Admin: 07/10/24 08:29 Dose: 6 mg Clonazepam (Clonazepam 0.5 Mg Tablet) 0.5 mg PO BID@0900,1700 [facility] Last Admin: 07/10/24 08:29 Dose: 0.5 mg Clonidine HCl (Clonidine Hcl 0.1 Mg Tablet) 0.1 mg PO BEDTIME [facility]; Protocol Last Admin: 07/09/24 21:59 Dose: 0.1 mg Clonidine HCl (Clonidine Hcl 0.1 Mg Tablet) 0.1 mg PO Q4H PRN; Protocol PRN Reason: anxiety Last Admin: 07/07/24 12:52 Dose: 0.1 mg Hydroxyzine HCl (Hydroxyzine Hcl 25 Mg Tablet) 25 mg PO Q6H PRN PRN Reason: Anxiety Last Admin: 07/09/24 02:41 Dose: 25 mg Lactulose (Lactulose 20 Gm/30 Ml Solution) 40 gm PO DAILY [facility] Last Admin: 07/10/24 08:45 Dose: Not Given Lidocaine (Lidocaine 4 % Patch Adh..Patch) 1 patch TRANSDERMA DAILY [facility]; Protocol Last Admin: 07/10/24 08:45 Dose: Not Given Lidocaine (Lidocaine 4 % Patch Adh..Patch) 2 patch TRANSDERMA DAILY [facility]; Protocol Last Admin: 07/10/24 08:45 Dose: Not Given Lidocaine HCl (Lidocaine Hcl 2 % Urojet 10 Ml Jel.Pf.Luis) 10 ml TOPICAL BID PRN PRN Reason: Pain, Severe (Pain Scale 7-10) Last Admin: 06/19/24 22:05 Dose: 10 ml [place] Carbonate ([place] Carbonate Er 300 Mg Tablet.Er) 600 mg PO BEDTIME [facility] Last Admin: 07/09/24 21:59 Dose: 600 mg Loperamide HCl (Loperamide Hcl 2 Mg Capsule) 2 mg PO Q4H PRN PRN Reason: Diarrhea Magnesium Hydroxide (Milk Of Magnesia 30 Ml Oral.Susp) 30 ml PO DAILY PRN PRN Reason: Constipation Last Admin: 06/04/24 05:22 Dose: 30 ml Multi-Ingred Cream/Lotion/Oil/Oint (Mineral Oil/Petrolatum,White 106 Gm Tube) 1 appl TOPICAL BID PRN; Protocol PRN Reason: Dry Skin Last Admin: 06/13/24 21:44 Dose: 1 appl Patient Own (Belbuca (75mcg Buccal Films)) 1 each PO BID [facility] Last Admin: 07/10/24 08:30 Dose: 1 each Ondansetron HCl (Ondansetron Odt 4 Mg Tab.Rapdis) 4 mg TRANSLINGU Q6H PRN PRN Reason: Nausea and Vomiting Last Admin: 06/18/24 16:17 Dose: 4 mg Polyethylene Glycol (Polyethylene Glycol 3350 17 Gm Powd.Pack) 17 gm PO BID [facility] Last Admin: 07/10/24 08:45 Dose: Not Given Quetiapine Fumarate (Quetiapine Fumarate 50 Mg Tablet) 150 mg PO BEDTIME [facility] Last Admin: 07/09/24 21:59 Dose: 150 mg Senna/Docusate Sodium (Sennosides/Docusate Sodium Tablet) 2 tab PO BID [facility] Last Admin: 07/10/24 08:45 Dose: Not Given Simethicone (Simethicone 80 Mg Tab.Chew) 160 mg PO BID PRN PRN Reason: bloating/gas Last Admin: 06/07/24 11:06 Dose: 160 mg Tamsulosin HCl (Tamsulosin Hcl 0.4 Mg Capsule) 0.4 mg PO BEDTIME [facility] Last Admin: 07/09/24 21:58 Dose: 0.4 mg Tramadol HCl (Tramadol Hcl 50 Mg Tablet) 50 mg PO Q6H PRN PRN Reason: Pain, Severe (Pain Scale 7-10) Last Admin: 07/10/24 06:30 Dose: 50 mg Trimethoprim/Sulfamethoxazole (Sulfamethox/Trimeth 800/160 Tablet) 1 tab PO Q12H [facility] Last Admin: 07/10/24 08:29 Dose: 1 tab Allergies Allergies Allergy/AdvReac Type Severity Reaction Status Date / Time azithromycin Allergy Itching Verified 06/21/24 12:35 levofloxacin [From Levaquin] Allergy Nightmare Verified 06/21/24 12:35 nitrofurantoin Allergy Itching Verified 06/21/24 12:35 [From Macrodantin] Assessment & Plan Assessment & Plan (1) MDD (major depressive disorder), recurrent episode, moderate: Status: Acute Code(s): F33.1 - Major depressive disorder, recurrent, moderate (2) PTSD (post-traumatic stress disorder): Status: Acute Code(s): F43.10 - Post-traumatic stress disorder, unspecified (3) Voiding dysfunction: Status: Acute Code(s): N39.8 - Other specified disorders of urinary system Assessment and Plan: She has no urinary concerns at this time No further antibiotics for now (4) Urinary retention: Status: Acute Code(s): R33.9 - Retention of urine, unspecified (5) Jennifer-Danlos disease: Status: Acute Code(s): Q79.60 - Jennifer-Danlos syndrome, unspecified (6) Osteogenesis imperfecta: Status: Acute Code(s): Q78.0 - Osteogenesis imperfecta (7) Myofascial pain syndrome: Status: Acute Code(s): M79.18 - Myalgia, other site Plan HPI: Patient is a 39-year-old female with history of Jennifer Danlos syndrome, osteogenesis imperfecta, myofascial pain syndrome, migraines, juvenile osteoporosis, asthma, and mood disorder with history of rectocele, vaginal mesh surgery, urinary retention requiring Van catheterization, which was recently restarted. P atient?presented?to?[place]?on?924?following?intentional?overdose?on?muscle?rel axers.??Patient?lujan mary?was?immediately?transferred?to?medical?floor?for?urinary?retention;?she?stab ilized?there?and?was?discharged.?? She?presents?again?for?overdose On?gabapentin?and?trazodone,?Which?she?asserts?was?not?intentional (though later admits it was),?saying?she?just?wanted?to?sleep?and?get?relief?from?chronic?pain H owever?she?agrees?it?was?impulsive?and?unsafe.??Patient?currently?denies?any?SI. ??She?reports?howeve r?that?life?has?been?very?difficultff?pain?medications,?having?been?prescribed?o pioids?consistently?for?the?past?24?years,? as?well?as?Ativan.??Patient?agrees?she?needs Help?stabilizing?and?coping. Relevant Medical/psych History: Patient was on opiates scheduled for 24 years to manage chronic medical comorbidities, resulting in hx of multiple fractures/falls and subsequent chronic pain. Pt denies any hx of substance abuse, including cannabis. She did screen positive for Fentanyl at first admission in October 2024 but is adamant she's never used it in her life and no quantitative labs done (leaving Fentanyl use inconclusive). Patients long-time physician of [address] Brigido Dietrich retired and new PCP tapered her off and discontinued all opioid pain management (also tapered and dc'd ativan). Patient reports she has been in constant pain and discomfort since then and has felt very frustrated and challenged to enjoy life, sometimes challenging her desire to live. Discussed?case?with?METAL FRAMER Vianey Dunaway from pain management clinic: pt seen on 05/24. METAL FRAMER Gume agrees that patients medical comorbidities and subsequent chronic pain syndrome are commonly treated with opioid pain management. She recommends either Butrans patch or preferably Belbucha films (a form of Buprenorphin and titrating it to 150mg BID). Pt is also appropriate to get other nerve blocking treatments at pain clinic who will f/u with pt. Qa Reviewer spoke with patient's PCP Dr. Rubio at [facility] Dr. Rubio reports concurs that patient has Osteogenesis imprefecta, Ehlos Danlos Pt was on opioids for 24 years with prior PCP. With [facility] she was on Oxycodine 30mg QID and Oxycontin 30mg daily. In Sep 2023 pt was admitted to [facility] for concern for overdose. Additionally, there were other concerns including that [facility] notes referenced that patient reported being on a Fentanyl patch, which this provider had never prescribed. Additionally, there was hx of patient needing refills early and a report that her mother had used some of her medications. Also patient had significant weight loss which provider was concerned might have contributed to possible accidental overdose. Because of these concerns provider, clinic repeatedly called patient to come in and discuss pain management and reportedly reached out to her from October until January however patient did not respond or come in for appointments, having missed several. Provider reports that because of lack of communication and ongoing concern that was never addressed, Provider felt it was necessary to taper patient off pain medication which was started in January; patient was also tapered off Ativan. Provider agrees that patient does have significant medical history that is commonly treated with chronic pain medication. Qa Reviewer discussed options with them and Dr. Rubio agrees that starting patient on a buprenorphine product is an acceptable alternative to oxycodone. Vraylar since depressed and hx of manic-esque IMPRESSION: Patient's?depression?and?SI?seem?to?have significant?situational component?as?she?is?No?longer?receiving?pain?management?for?severe,?chronic?pain . P atient?has?no?known?history?of?substance?abuse.??Although?she?did?screen?positiv e?for?fentanyl (on?10/27/2023 and?05/18/2024), No?quantitative?analysis?was?done. ?This?mean that?fentanyl?screen?could?very?well?be?a?false-positive?result (which is not uncommon). Medical?decision?should?not?be?based?on?only?a?positive?screen?for?fentanyl. Patient does struggle with SI and with her chronic?pain?And?poor?support?will?likely?continue?to?produce?mood?instability.? ?Treatment?plan?will?include?adjusto writer operator/team?discussion?with Outpatient?PCP?regarding?plan?for?treatment. Hospital course: 06/05: Continue current regimen and plans 06/06. Continue current plans and regimen. Loperamide was put on hold. Started on simethicone by hospitalist. No indications of GI bleeding currently. -seen by GI: C/o constipation and worsening abdominal distension. Will order CT A/P with IV/PO contrast to assess for SBO/ileus though passage of gas and small amount of stool argues against complete obstruction; however she is at risk given multiple surgeries. If no obstruction will order bowel regimen to address constipation. Continue Van, Urology following. 06/07 Patient reports that she is depressed. She apologized for not being more forthcoming earlier on in says it took her awhile to admitted to herself but she does not want to be in this world anymore... And has a plan to jump in front of a train on discharge. Patient also reports that overdose on trazodone/gabapentin was actually an intentional suicide attempt. She reports a constant deluge of self-deprecating thoughts which include that she is worthless, discussed in, and fat. 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 Despite her SI, patient does want help getting better agrees to try antidepressant medication; adjusto writer operator reviewed options and risks/side effects and patient with Vraylar. Also discussed pain medication management and patient agrees with Belbuca which she has heard of; she also agrees to non opioid pain management and will follow-up with pain management Clinic here at [place]. Discussed relationship with her mother and she does not SA think her mother struggles with drug addiction but has caught her trying to get into her room, which patient keeps locked, looking for her medications which she has taken in the past. Patient said she reported this to her PCP. Patient does have history of being prescribed fentanyl patch however she did not like them and weaned herself off of them; set had some left over 06/08 Patient remains depressed with suicidal thinking however is trying to be hopeful and has tolerated Vraylar and says will continue, with increased dose; grateful for help getting Belbuca through prior authorization. -Discussed case with urology who recommends remaining with indwelling Van since failed voiding attempt on 06/03; will continue to follow -pt reported and nurse corroborated that Van bag containing urine was blood- tinged; discussed with Urologist, deemed likely micro trauma, and to keep van in place; recently failed voiding trial on 06/03 06/09 Patient reports she remains depressed, with SI. Patient also reports she had a very difficult time sleeping last night feeling very upset following a conversation she had on the phone with her mother. Patient expressed to her mother she is feeling hurt that her mom has not visited or called throughout her admission, even on patient's birthday; she says her mom was on apologetic. Patient also challenged her mom regarding her mom's past comment that patient could burn in hell with her father (who 2 years ago); mom remained unapologetic. Patient tells adjusto writer operator she has no idea why her mom said this other than that her mom is crazy... Subsequently patient reports that throughout the night, she had racing thoughts and no sleep. Discussed medications and patient and pt is eager to try Belbuca Films for pain management, available today dc'd gabapentin; pt said has never helped for pain or anxiety Adding clonidine at bedtime to help w/ sleep, anxiety 06/10 patient reports that Belbuca is helping with pain Patient remains very depressed and continues to have suicidal thoughts, saying she wants to end her life when she leaves the hospital. Patient Says I do not understand myself.. And laments she is gone most of her life without any suicidal ideation and only started this past September. Patient shared about some other reasons that it might be occurring and agrees that she still mourning the loss of her father who was her confidante; dealing with chronic pain having been off pain medications for several months and the ongoing struggles in her relationship with her mother and brother whom she feels are bullying; trying to come to terms with the fact that her mother simply isn't going to be the kind of mother she wishes she had. Patient agrees to medication management. 06/13 still very depressed with SI. Sleeping better however which is helpful and pain medications are also helpful. Patient agrees to increasing Vraylar; agrees to behavioral activation and attending groups. Despite ongoing thoughts about self-harm and ending her life when she is discharge, patient is also future oriented and says she would like to find a new place to live separate from her mother and brother. Asks for help going about that. 06/14 pt remains depressed, positive for SI with a plan but also future oriented talking about changing her living situation. Pt is engaged in treatment, trying to process her suicidal feelings and trying to be hopeful it will resolve. Agrees to adding Wellbutrin. -will likely add Wellbutrin; however, will probably keep Vraylar (maybe at lower dose) since pt has hx of manic-esque episodes (thought not formally diagnosed with bipolar as episode had several contributory factors) 06/15 remains depressed but processing feelings, doing worksheets, talking about her mother. Pt very anxious. -may increase wellbutrin for depression -considered starting Clonazepam 0.5mg BID; pt used to be on as much as 5mg of ativan daily; was weened off so hesitant to restart benzo's; 06/17 increase Wellbutrin 06/20 Over the weekend, patient assessed for infection, starting antibiotic; concerned that indwelling Van catheter is not sustainable; urology consulted and plan was for suprapubic catheter insertion for today. Patient however did not get fully informed of this and was upset to learn that a procedure was planned. She was however able to discuss this at length with adjusto writer operator and urology team and agreed to proceed. 06/21 Dr. Niño decided better to do a cystoscopy 1st and then decide whether not suprapubic catheter verse bladder stimulator; patient consents Seen by infectious disease: She has no urinary concerns at this time..No further antibiotics for now 06/22 Patient discussed conversation she had with her brother that was reassuring. Patient felt understood by him and supported which has lifted her mood. She feels that although she still depressed perhaps some of the depression is lifting and she starting to feel that there is hope of change in her situation. Patient remains very anxious. Earlier she had said she did not want to get back on benzodiazepines, having been on Ativan 5 mg for decades, weaned off only about a year ago. However given patient's struggles with anxiety and the fact that benzos have helped her in the past, discussed restarting a benzodiazepine, this time clonazepam 0.5 mg b.i.d.; adjusto writer operator discussed at length risks for addiction and the constant desire to have more. Patient said she very much does not want that to happen and feels that she will be able to minimize her use 06/23 Depressed, with intermittent SI. very anxious and with despairing thoughts has upcoming anniversary of her father's which is this July 03; will try to make it remembrance day and change the perspective. -Feeling better about catheter and plan; adjusto writer operator discussed with urology who met with patient and plan is for July 05 to move forward with stimulator -patient attending groups and engaged in treatment 06/24 a little better; mood up and down and still intermittent SI but patient is working on being hopeful employee numerous coping skills. Agrees to increase Wellbutrin 06/25 Patient continues to report depressed mood; told nurse that she remains purging daily and still plans to attempt suicide when she leaves. However on the unit, she seems more relaxed. Patient shared with adjusto writer operator her plan to remember her father on the anniversary of his . 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 Currently she is eating enough. As this is a chronic problem that that has gone on for over 20 years, and with which patient has been able to cope with on her own, without needing hospitalizations or [facility] admissions since teenage years, adjusto writer operator does not expect that it will resolve during this inpatient stay and does not believe that it needs to. 06/27 very tearful sad; suicidal; pushing self to be around others, groups -talked about eating struggles, purging; trying not to 06/28 do not think that medication management will change patients depression at this time. Rather she needs continued time to process her feelings of despair, grief about her fathers , hx of trauma, feeling her future is bleak. -adjusto writer operator engaged in psychodynamic psychotherapy 06/29 same presentation; adjusto writer operator engaged in psychodynamic psychotherapy 06/30: feels clonidine and klonopin helpful for anxiety. asking for pain med change; deferred for return of attending, does not appear in pain. Q5s for SI/van. cruise staff member feel pt is not substantially worse than her recent inpatient baseline, but perhaps looking a bit better today than yesterday. 07/01: appears behaving as per usual for inpatient context. increase seroquel to 150 QHS for insomnia and appetite stimulation. continue current mgmt otherwise. 07/02: Continues depressed with suicidal thoughts. Says she wants to starve self. VSS. Check metabolic panel. 07/04 Patient continues to lament her past and anger and frustration with specific relationships. Says still feels hopeless can not stop thinking about ending her life. Discussed more about taking responsibility for feelings and while anger and frustration at others can be appropriate, it is also necessary to work on coping with such feelings. Patient said she will continue to try. Discussed history and patient has not really had SI till this October and discussed how these feelings will also pass... Discussed medication management and patient agreed to trial of lithium for continued depression and chronic SI. and increasing Vraylar -patient considers ending her life by starving herself though she has been eating on the unit. -discussed surgical implantation of bladder stimulator tomorrow 07/05 received?bladder?stimulator;?remains?with?indwelling?catheter?which?will?be?nancy floyd?tomorrow?or?the?following?day. -increased?Vraylar?to?6?mg 07/06 continue?with?treatment?plan;??Aba Good?helping?with?implanted?bladder?stim 07/07 adjusting to new device, bladder scan; discussed?how?history?of?trauma?left?patient?needing?to?a?certain?sense?of?contr ol [place]?her?life?in?body?which?likely?plays?a?part?into?developing?anorexia,?SI...?? This?idea?resonate?with?patient? w ho?agreed?that?she?is?overly?focused?on?blaming?others?and?giving?to?little?atte ntion?to?how?to?work?on Her?own?personal?issues. 1 09/07?continue?current?treatment?plan?except?will?increase?lithium?to?help?with?d epression P atient?continues?to?make?statements?that?she?is?thinking?of?ending?her?life.??In ?the?same?conversation?however?she?will?also?discuss H er?efforts?to?move?out?of?her?mother's?house?and?get?her?own?place?to?live;?she? talks?about?being?able?to?bear?living?there?while She?makes?plans?to?move?out.? 07/10: Continue current regimen and plans for stabilization and medication management PLAN: CV? 1:1 due?to?wires?from?bladder?stem Continue clonazepam 0.5 mg b.i.d. Added?tramadol?for?breakthrough?pain Continue?WEllbutrin XL 450 mg for continued depression (pt adamant about not starting anti-depressant with risk of wt gain) Continue Vraylar 6 mg daily (Vraylar chosen since patient has depression but also history of manic type behaviors, possibly manic episode with some delusions and AH) Continue Belbuca 75mcg films BID for pain management (history of fentanyl patch, morphine, oxycodone, OxyContin) clonidine prn Continue Flagyl 500 q.12 hours x7 days placed for bacterial vaginosis; id examined patient and reports no need for any additional antibiotic regimen Urology appointment: July 05 for placement of bladder stimulator (With Dr. Leiva) Cystoscopy Findings: Bladder wall thickening, no vaginal or bladder mesh, no evidence outlet obstruction Hospitalist note 06/18 Receiving Pyridium UA 06/18 positive for 4+ bacteria, greater than 50 WBC, large leukocyte esterase positive nitrates Urine culture pending Urine culture 05/25 and 06/01 grew Raissa glabrata patient received Diflucan 200 mg daily from 06/01 through 06/15 Bacterial vaginosis PCR positive Raissa grew size/glabrata detected Due to persistent symptoms of vaginal pain/discharge recommend Infectious Disease consultation Follow urine culture. Patient educated on: diagnosis, medication risk/benefits and medical condition Reason for continued inpatient stay Substantial Risk for: harm to self and med/psych decompensation Time Spent With Patient Time: Total time managing care of this patient today ____ minutes.
--- NOTE | 2024-07-10 14:51 | PC.NURSE ---
This morning pt used bladder stimulator remotes to connect to device and adjust levels. Pt set right remote to level 3 and left remote to level 4. Pt attempted to sit on toilet to void approximately every 3-4 hours without success. Pt remains unable to void. Bladder scan at 1230 showed 209ml. Bladder scan at 1430 showed 408ml. Pt was then straight cath for 550ml yellow urine. Pt tolerated procedure well.
--- NOTE | 2024-07-10 15:35 | PC.NURSE ---
Pt complained bladder stimulator was causing discomfort on the left side. Pt requested to decrease level. Pt operated left remote and lowered level to 2. Right remote remains at level 3.
[2024-07-10] MEDS: Throat Lozenge, Medicated LOZENGE 1 LOZENGE MUCOUS MEM (16:08)
[2024-07-10 20:00] VITALS: BP 111/77; PULSE 81; TEMP 36.6; O2SAT 98
[2024-07-10 21:08] VITALS: BP 111/77
[2024-07-10] MEDS: QUEtiapine Fumarate 50 MG TABLET 150 MG PO (21:08)
[2024-07-10] MEDS: Lithium Carbonate ER 300 MG TABLET.ER 600 MG PO (21:08)
[2024-07-10] MEDS: cloNIDine HCL 0.1 MG TABLET PO (21:08)
[2024-07-10] MEDS: Tamsulosin HCL 0.4 MG CAPSULE PO (21:09)
[2024-07-10] MEDS: Sennosides/Docusate Sodium TABLET 2 TAB PO (21:09)
--- NOTE | 2024-07-11 00:13 | PC.NURSE ---
At approximately 2230, this patient was bladder scanned, revealing approximately 730 ml of urine. This procedure writer catheterized the patient and approximately 700 ml of clear, light yellow urine was drained. Patient was bladder scanned again, revealing 13 ml remaining in the patient's bladder. Patient stated she had been unable to void on her own today, and does not feel the urge to do so even though I know there's a lot [of urine] in there.
[2024-07-11] MEDS: traMADoL HCL 50 MG TABLET PO ×3 (04:06→21:12)
--- NOTE | 2024-07-11 06:55 | PC.NURSE ---
Patient bladder scanned at approximately 0630, revealing 229 ml. Patient catheterized and 220 ml of clear, dark yellow urine obtained.
[2024-07-11] MEDS: Acetaminophen 325 MG TABLET 650 MG PO ×2 (07:06→14:47)
[2024-07-11] MEDS: Sulfamethox/Trimeth 800/160 TABLET 1 TAB PO ×2 (08:08→21:13)
[2024-07-11 08:28] VITALS: BP 126/81; PULSE 83; TEMP 36.6; O2SAT 96
[2024-07-11] MEDS: buPROPion HCl XL 150 MG TAB.ER.24H 450 MG PO (09:12)
[2024-07-11] MEDS: Bethanechol Chloride 25 MG TABLET PO ×3 (09:13→21:14)
[2024-07-11] MEDS: clonazePAM 0.5 MG TABLET PO ×2 (09:13→17:06)
[2024-07-11] MEDS: Cariprazine HCl 3 MG CAPSULE 6 MG PO (09:14)
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
[2024-07-11] MEDS: Ascorbic Acid 500 MG TABLET 1000 MG PO (10:33)
[2024-07-11] MEDS: BUPRENORPHINE 75 MCG 1 EACH PO ×2 (11:38→21:13)
--- NOTE | 2024-07-11 14:34 | PC.NURSE ---
Arlyn was up at shift change. She refused breakfast and drank approximately 120cc hot cocoa. She was encouraged to try sitting on commode every hour for 5-7 minutes and to visualize her bladder emptying. She reported that she did this once. Total of 300cc water with medications. Refused lunch excapt for brownie and no fluids. Arlyn cleaned her lupe area independently prior to straight cath. Bladder scan at 13:25= 370ml, 400ml out with straight cath at 13:30. Patient tolerated well. Again strongly encouraged to sit on commode every hour, continue to assure her that we are confident that the stimulator will work and that it will take some time.
--- NOTE | 2024-07-11 17:42 | PC.NURSE ---
Per Dr. Hermosillo, bladder scan as needed WHILE AWAKE, straight cath q 6-8 hours WHILE AWAKE. (See orders). [employer] serviced the Bladder scan machine today. Next maintenance due 07/2024. Since her last straight cath at 13:30, Arlyn took in 1,080ml fluids (240cc tea, 240cc cocoa, 240cc water, 120cc ensure, 240cc soup) and ate 1/2 grilled cheese sandwich. Please complete bladder scan assessment on worklist.
[2024-07-11 20:30] VITALS: BP 128/82; PULSE 97; RESP 16; TEMP 36.6; O2SAT 97
[2024-07-11] MEDS: Tamsulosin HCL 0.4 MG CAPSULE PO (21:13)
[2024-07-11] MEDS: QUEtiapine Fumarate 50 MG TABLET 150 MG PO (21:13)
[2024-07-11] MEDS: cloNIDine HCL 0.1 MG TABLET PO (21:13)
[2024-07-11] MEDS: Sennosides/Docusate Sodium TABLET 2 TAB PO (21:13)
[2024-07-11] MEDS: Lithium Carbonate ER 300 MG TABLET.ER 600 MG PO (21:14)
[2024-07-12] MEDS: traMADoL HCL 50 MG TABLET PO ×4 (05:44→23:38)
[2024-07-12] MEDS: Bethanechol Chloride 25 MG TABLET PO ×3 (08:52→21:46)
[2024-07-12] MEDS: buPROPion HCl XL 150 MG TAB.ER.24H 450 MG PO (08:52)
[2024-07-12] MEDS: Ascorbic Acid 500 MG TABLET 1000 MG PO (08:52)
[2024-07-12] MEDS: Cariprazine HCl 3 MG CAPSULE 6 MG PO (08:52)
[2024-07-12] MEDS: clonazePAM 0.5 MG TABLET PO ×2 (08:53→16:04)
[2024-07-12] MEDS: BUPRENORPHINE 75 MCG 1 EACH PO ×2 (08:53→21:46)
[2024-07-12] MEDS: Sulfamethox/Trimeth 800/160 TABLET 1 TAB PO ×2 (08:53→21:45)
[2024-07-12] MEDS: Acetaminophen 325 MG TABLET 650 MG PO (08:53)
[2024-07-12] MEDS: Lactulose 20 GM/30 ML SOLUTION 40 GM PO (09:05)
[2024-07-12 09:23] VITALS: BP 123/67; PULSE 83; RESP 16; TEMP 37; O2SAT 95
--- NOTE | 2024-07-12 15:30 | P.PNPSI_ITS ---
Subjective Subjective Date of Service: 07/12/24 Reason For Visit: SI Interim History: Met with patient; discussed with team Patient doing much better today, staff commented on brighter affect and that she seems much more engaged. Patient said she is pretty good and that she has been having a good day, which is the 1st time she has expressed hopefulness. Patient said that conversations yesterday were effective and she is firmly decided to come to the other side and that she does not want to stay being sick. Patient said reflecting on her life, her true beliefs and her goals helped make this transition. Patient actually ate her dinner yesterday, another 1st and says she will continue to try to be more healthy with her eating. Patient denies SI and says I want to live... Senior Risk Analyst discussed case with nursing steamfitter supervisor who agrees that patient is able to come off one-to-one, and go to Q 5s as she was with indwelling catheter; also that she can begin learning to self-catheterize, which is an essential part of her discharge plan and of course helps preserves patient's dignity/privacy Mental Status Exam Mental Status Exam Narrative: Pt is alert and oriented; behavior is cooperative, friendly and calm, brighter and more engaged; patient is not in distress; dressed in casual attire with combed hair, glasses, adequate hygiene; mood is described as good and affect congruent, noticeably brighter; eye contact appropriate; Speech is normal rate, volume and prosody and not pressured; no psychomotor agitation/retardation present; thought process is organized and goal directed; Thought content is on dealing with strong feelings, overcoming SI; otherwise pertinent to relevant topics and without any delusional content, paranoid ideations or grandiosity; no SI/no HI There is no evidence of perceptual disturbance. Patients insight and judgment impaired but improving Diagnostics Vital Signs (24Hr): Vital Signs - 24 hr 07/11/24 20:30 07/12/24 09:23 Temperature 97.9 F 98.6 F Pulse Rate 97 83 Respiratory Rate 16 16 Blood Pressure 128/82 123/67 Pulse Oximetry 97 95 Oxygen Delivery Method Room Air Room Air BMI result Body Mass Index 16.1 Labs 07/07/24 14:53 07/07/24 14:53 Imaging Radiology Impressions: ITS Impressions KUB X-Ray 06/03/24 19:55 IMPRESSION: Increased amount of stool in the colon suggesting constipation. Please correlate with clinical presentation. Electronically signed by: Oneida Pham MD 06/04/2024 07:31 AM EDT RP Renal Ultrasound 06/04/24 14:49 IMPRESSION: No ultrasound evidence of renal obstruction or hydronephrosis. Limited visualization of the left kidney obscured by bowel gas, exam otherwise unremarkable. Electronically signed by: Oneida Pham MD 06/05/2024 12:56 PM EDT RP Abdomen/Pelvis CT 06/04/24 18:33 IMPRESSION: Severe constipation. Otherwise unremarkable CT abdomen and pelvis. Fleischner guidelines were followed. Electronically signed by: Deyvi Collins MD 06/04/2024 07:05 PM EDT RP Ribs X-Ray 06/19/24 10:15 IMPRESSION: 1. Mild degenerative changes of the left shoulder. 2. No left-sided rib fracture. Electronically signed by: Orlando Lindsey MD 06/19/2024 10:50 AM EDT RP Shoulder X-Ray 06/19/24 10:15 IMPRESSION: 1. Mild degenerative changes of the left shoulder. 2. No left-sided rib fracture. Electronically signed by: Orlando Lindsey MD 06/19/2024 10:50 AM EDT RP Medications Medications Current Medications Acetaminophen (Acetaminophen 325 Mg Tablet) 650 mg PO Q8H [facility] Last Admin: 07/12/24 15:29 Dose: Not Given Al Hydroxide/Mg Hydroxide (Magnesium Hydrox/Alum Hydrox 30 Ml Oral.Susp) 30 ml PO Q6H PRN PRN Reason: Heartburn/Nausea Albuterol Sulfate (Albuterol Sulfate 90 Mcg 8 Gm Inhaler) 2 puff INHALE QID PRN PRN Reason: Shortness Of Breath Last Admin: 07/08/24 09:54 Dose: 2 puff Ascorbic Acid (Ascorbic Acid 500 Mg Tablet) 1,000 mg PO DAILY [facility] Last Admin: 07/12/24 08:52 Dose: 1,000 mg Benzocaine (Throat Lozenge, Medicated Lozenge) 1 lozenge MUCOUS MEM Q2H PRN PRN Reason: Sore Throat Last Admin: 07/10/24 16:08 Dose: 1 lozenge Bethanechol Chloride (Bethanechol Chloride 25 Mg Tablet) 25 mg PO TID [facility] Last Admin: 07/12/24 15:28 Dose: 25 mg Bisacodyl (Bisacodyl 5 Mg Tablet.Dr) 10 mg PO BEDTIME [facility] Last Admin: 07/12/24 00:07 Dose: Not Given Bupropion HCl (Bupropion Hcl Xl 150 Mg Tab.Er.24h) 450 mg PO DAILY [facility] Last Admin: 07/12/24 08:52 Dose: 450 mg Cariprazine (Cariprazine Hcl 3 Mg Capsule) 6 mg PO DAILY [facility] Last Admin: 07/12/24 08:52 Dose: 6 mg Clonazepam (Clonazepam 0.5 Mg Tablet) 0.5 mg PO BID@0900,1700 [facility] Last Admin: 07/12/24 11:04 Dose: Not Given Clonidine HCl (Clonidine Hcl 0.1 Mg Tablet) 0.1 mg PO BEDTIME [facility]; Protocol Last Admin: 07/11/24 21:13 Dose: 0.1 mg Clonidine HCl (Clonidine Hcl 0.1 Mg Tablet) 0.1 mg PO Q4H PRN; Protocol PRN Reason: anxiety Last Admin: 07/07/24 12:52 Dose: 0.1 mg Hydroxyzine HCl (Hydroxyzine Hcl 25 Mg Tablet) 25 mg PO Q6H PRN PRN Reason: Anxiety Last Admin: 07/09/24 02:41 Dose: 25 mg Lactulose (Lactulose 20 Gm/30 Ml Solution) 40 gm PO DAILY [facility] Last Admin: 07/12/24 09:05 Dose: 40 gm Lidocaine (Lidocaine 4 % Patch Adh..Patch) 1 patch TRANSDERMA DAILY [facility]; Protocol Last Admin: 07/12/24 09:12 Dose: Not Given Lidocaine (Lidocaine 4 % Patch Adh..Patch) 2 patch TRANSDERMA DAILY [facility]; Protocol Last Admin: 07/12/24 09:13 Dose: Not Given Lidocaine HCl (Lidocaine Hcl 2 % Urojet 10 Ml Jel.Pf.Luis) 10 ml TOPICAL BID PRN PRN Reason: Pain, Severe (Pain Scale 7-10) Last Admin: 06/19/24 22:05 Dose: 10 ml [place] Carbonate ([place] Carbonate Er 300 Mg Tablet.Er) 600 mg PO BEDTIME [facility] Last Admin: 07/11/24 21:14 Dose: 600 mg Loperamide HCl (Loperamide Hcl 2 Mg Capsule) 2 mg PO Q4H PRN PRN Reason: Diarrhea Magnesium Hydroxide (Milk Of Magnesia 30 Ml Oral.Susp) 30 ml PO DAILY PRN PRN Reason: Constipation Last Admin: 06/04/24 05:22 Dose: 30 ml Multi-Ingred Cream/Lotion/Oil/Oint (Mineral Oil/Petrolatum,White 106 Gm Tube) 1 appl TOPICAL BID PRN; Protocol PRN Reason: Dry Skin Last Admin: 06/13/24 21:44 Dose: 1 appl Patient Own (Belbuca (75mcg Buccal Films)) 1 each PO BID [facility] Last Admin: 07/12/24 08:53 Dose: 1 each Ondansetron HCl (Ondansetron Odt 4 Mg Tab.Rapdis) 4 mg TRANSLINGU Q6H PRN PRN Reason: Nausea and Vomiting Last Admin: 06/18/24 16:17 Dose: 4 mg Polyethylene Glycol (Polyethylene Glycol 3350 17 Gm Powd.Pack) 17 gm PO BID [facility] Last Admin: 07/12/24 09:13 Dose: Not Given Quetiapine Fumarate (Quetiapine Fumarate 50 Mg Tablet) 150 mg PO BEDTIME [facility] Last Admin: 07/11/24 21:13 Dose: 150 mg Senna/Docusate Sodium (Sennosides/Docusate Sodium Tablet) 2 tab PO BID [facility] Last Admin: 07/12/24 09:13 Dose: Not Given Simethicone (Simethicone 80 Mg Tab.Chew) 160 mg PO BID PRN PRN Reason: bloating/gas Last Admin: 06/07/24 11:06 Dose: 160 mg Tamsulosin HCl (Tamsulosin Hcl 0.4 Mg Capsule) 0.4 mg PO BEDTIME [facility] Last Admin: 07/11/24 21:13 Dose: 0.4 mg Tramadol HCl (Tramadol Hcl 50 Mg Tablet) 50 mg PO Q6H PRN PRN Reason: Pain, Severe (Pain Scale 7-10) Last Admin: 07/12/24 10:40 Dose: 50 mg Trimethoprim/Sulfamethoxazole (Sulfamethox/Trimeth 800/160 Tablet) 1 tab PO Q12H [facility] Last Admin: 07/12/24 08:53 Dose: 1 tab Allergies Allergies Allergy/AdvReac Type Severity Reaction Status Date / Time azithromycin Allergy Itching Verified 06/21/24 12:35 levofloxacin [From Levaquin] Allergy Nightmare Verified 06/21/24 12:35 nitrofurantoin Allergy Itching Verified 06/21/24 12:35 [From Macrodantin] Assessment & Plan Assessment & Plan (1) MDD (major depressive disorder), recurrent episode, moderate: Status: Acute Code(s): F33.1 - Major depressive disorder, recurrent, moderate (2) PTSD (post-traumatic stress disorder): Status: Acute Code(s): F43.10 - Post-traumatic stress disorder, unspecified (3) Voiding dysfunction: Status: Acute Code(s): N39.8 - Other specified disorders of urinary system Assessment and Plan: She has no urinary concerns at this time No further antibiotics for now (4) Urinary retention: Status: Acute Code(s): R33.9 - Retention of urine, unspecified (5) Jennifer-Danlos disease: Status: Acute Code(s): Q79.60 - Jennifer-Danlos syndrome, unspecified (6) Osteogenesis imperfecta: Status: Acute Code(s): Q78.0 - Osteogenesis imperfecta (7) Myofascial pain syndrome: Status: Acute Code(s): M79.18 - Myalgia, other site Plan HPI: Patient is a 39-year-old female with history of Jennifer Danlos syndrome, osteogenesis imperfecta, myofascial pain syndrome, migraines, juvenile osteoporosis, asthma, and mood disorder with history of rectocele, vaginal mesh surgery, urinary retention requiring Van catheterization, which was recently restarted. P atient?presented?to?[facility]?on?924?following?intentional?overdose?on?muscle?rel axers.??Patient?lujan mary?was?immediately?transferred?to?medical?floor?for?urinary?retention;?she?stab ilized?there?and?was?discharged.?? She?presents?again?for?overdose On?gabapentin?and?trazodone,?Which?she?asserts?was?not?intentional (though later admits it was),?saying?she?just?wanted?to?sleep?and?get?relief?from?chronic?pain H owever?she?agrees?it?was?impulsive?and?unsafe.??Patient?currently?denies?any?SI. ??She?reports?howeve r?that?life?has?been?very?difficultff?pain?medications,?having?been?prescribed?o pioids?consistently?for?the?past?24?years,? as?well?as?Ativan.??Patient?agrees?she?needs Help?stabilizing?and?coping. Relevant Medical/psych History: Patient was on opiates scheduled for 24 years to manage chronic medical comorbidities, resulting in hx of multiple fractures/falls and subsequent chronic pain. Pt denies any hx of substance abuse, including cannabis. She did screen positive for Fentanyl at first admission in October 2024 but is adamant she's never used it in her life and no quantitative labs done (leaving Fentanyl use inconclusive). Patients long-time physician of [address] Brigido Dietrich retired and new PCP tapered her off and discontinued all opioid pain management (also tapered and dc'd ativan). Patient reports she has been in constant pain and discomfort since then and has felt very frustrated and challenged to enjoy life, sometimes challenging her desire to live. Discussed?case?with?MAGDA Dunaway from pain management clinic: pt seen on 05/24. MAGDA Dunaway agrees that patients medical comorbidities and subsequent chronic pain syndrome are commonly treated with opioid pain management. She recommends either Butrans patch or preferably Bel[place]uch[place] films (a form of Buprenorphin and titrating it to 150mg BID). Pt is also appropriate to get other nerve blocking treatments at pain clinic who will f/u with pt. Senior Risk Analyst spoke with patient's PCP Dr. Rubio at [facility] Dr. Rubio reports concurs that patient has Osteogenesis imprefecta, Ehlos Danlos Pt was on opioids for 24 years with prior PCP. With [facility] she was on Oxycodine 30mg QID and Oxycontin 30mg daily. In Sep 2023 pt was admitted to [facility] for concern for overdose. Additionally, there were other concerns including that [facility] notes referenced that patient reported being on a Fentanyl patch, which this provider had never prescribed. Additionally, there was hx of patient needing refills early and a report that her mother had used some of her medications. Also patient had significant weight loss which provider was concerned might have contributed to possible accidental overdose. Because of these concerns provider, clinic repeatedly called patient to come in and discuss pain management and reportedly reached out to her from October until January however patient did not respond or come in for appointments, having missed several. Provider reports that because of lack of communication and ongoing concern that was never addressed, Provider felt it was necessary to taper patient off pain medication which was started in January; patient was also tapered off Ativan. Provider agrees that patient does have significant medical history that is commonly treated with chronic pain medication. Senior Risk Analyst discussed options with them and Dr. Rubio agrees that starting patient on a buprenorphine product is an acceptable alternative to oxycodone. Vraylar since depressed and hx of manic-esque IMPRESSION: Patient's?depression?and?SI?seem?to?have significant?situational component?as?she?is?No?longer?receiving?pain?management?for?severe,?chronic?pain . P atient?has?no?known?history?of?substance?abuse.??Although?she?did?screen?positiv e?for?fentanyl (on?10/27/2023 and?05/18/2024), No?quantitative?analysis?was?done. ?This?mean that?fentanyl?screen?could?very?well?be?a?false-positive?result (which is not uncommon). Medical?decision?should?not?be?based?on?only?a?positive?screen?for?fentanyl. Patient does struggle with SI and with her chronic?pain?And?poor?support?will?likely?continue?to?produce?mood?instability.? ?Treatment?plan?will?include?resume writer/team?discussion?with Outpatient?PCP?regarding?plan?for?treatment. Hospital course: 06/05: Continue current regimen and plans 06/06. Continue current plans and regimen. Loperamide was put on hold. Started on simethicone by hospitalist. No indications of GI bleeding currently. -seen by GI: C/o constipation and worsening abdominal distension. Will order CT A/P with IV/PO contrast to assess for SBO/ileus though passage of gas and small amount of stool argues against complete obstruction; however she is at risk given multiple surgeries. If no obstruction will order bowel regimen to address constipation. Continue Van, Urology following. 06/07 Patient reports that she is depressed. She apologized for not being more forthcoming earlier on in says it took her awhile to admitted to herself but she does not want to be in this world anymore... And has a plan to jump in front of a train on discharge. Patient also reports that overdose on trazodone/gabapentin was actually an intentional suicide attempt. She reports a constant deluge of self-deprecating thoughts which include that she is worthless, discussed in, and fat. Senior Risk Analyst reviewed patient's history of anorexia and patient reports she sees herself as fat every day and eats very little (history of anorexia since 14 years old; was at brought up oral for a month with a feeding tube; she understands that this is a significant cause of her chronic constipation). Despite her SI, patient does want help getting better agrees to try antidepressant medication; resume writer reviewed options and risks/side effects and patient with Vraylar. Also discussed pain medication management and patient agrees with Belbuca which she has heard of; she also agrees to non opioid pain management and will follow-up with pain management Clinic here at [facility] [facility]. Discussed relationship with her mother and she does not SA think her mother struggles with drug addiction but has caught her trying to get into her room, which patient keeps locked, looking for her medications which she has taken in the past. Patient said she reported this to her PCP. Patient does have history of being prescribed fentanyl patch however she did not like them and weaned herself off of them; set had some left over 06/08 Patient remains depressed with suicidal thinking however is trying to be hopeful and has tolerated Vraylar and says will continue, with increased dose; grateful for help getting Belbuca through prior authorization. -Discussed case with urology who recommends remaining with indwelling Van since failed voiding attempt on 06/03; will continue to follow -pt reported and nurse corroborated that Van bag containing urine was blood- tinged; discussed with Urologist, deemed likely micro trauma, and to keep van in place; recently failed voiding trial on 06/03 06/09 Patient reports she remains depressed, with SI. Patient also reports she had a very difficult time sleeping last night feeling very upset following a conversation she had on the phone with her mother. Patient expressed to her mother she is feeling hurt that her mom has not visited or called throughout her admission, even on patient's birthday; she says her mom was on apologetic. Patient also challenged her mom regarding her mom's past comment that patient could burn in hell with her father (who 2 years ago); mom remained unapologetic. Patient tells resume writer she has no idea why her mom said this other than that her mom is crazy... Subsequently patient reports that throughout the night, she had racing thoughts and no sleep. Discussed medications and patient and pt is eager to try Belbuca Films for pain management, available today dc'd gabapentin; pt said has never helped for pain or anxiety Adding clonidine at bedtime to help w/ sleep, anxiety 06/10 patient reports that Belbuca is helping with pain Patient remains very depressed and continues to have suicidal thoughts, saying she wants to end her life when she leaves the hospital. Patient Says I do not understand myself.. And laments she is gone most of her life without any suicidal ideation and only started this past September. Patient shared about some other reasons that it might be occurring and agrees that she still mourning the loss of her father who was her confidante; dealing with chronic pain having been off pain medications for several months and the ongoing struggles in her relationship with her mother and brother whom she feels are bullying; trying to come to terms with the fact that her mother simply isn't going to be the kind of mother she wishes she had. Patient agrees to medication management. 06/13 still very depressed with SI. Sleeping better however which is helpful and pain medications are also helpful. Patient agrees to increasing Vraylar; agrees to behavioral activation and attending groups. Despite ongoing thoughts about self-harm and ending her life when she is discharge, patient is also future oriented and says she would like to find a new place to live separate from her mother and brother. Asks for help going about that. 06/14 pt remains depressed, positive for SI with a plan but also future oriented talking about changing her living situation. Pt is engaged in treatment, trying to process her suicidal feelings and trying to be hopeful it will resolve. Agrees to adding Wellbutrin. -will likely add Wellbutrin; however, will probably keep Vraylar (maybe at lower dose) since pt has hx of manic-esque episodes (thought not formally diagnosed with bipolar as episode had several contributory factors) 06/15 remains depressed but processing feelings, doing worksheets, talking about her mother. Pt very anxious. -may increase wellbutrin for depression -considered starting Clonazepam 0.5mg BID; pt used to be on as much as 5mg of ativan daily; was weened off so hesitant to restart benzo's; 06/17 increase Wellbutrin 06/20 Over the weekend, patient assessed for infection, starting antibiotic; concerned that indwelling Van catheter is not sustainable; urology consulted and plan was for suprapubic catheter insertion for today. Patient however did not get fully informed of this and was upset to learn that a procedure was planned. She was however able to discuss this at length with resume writer and urology team and agreed to proceed. 06/21 Dr. Niño decided better to do a cystoscopy 1st and then decide whether not suprapubic catheter verse bladder stimulator; patient consents Seen by infectious disease: She has no urinary concerns at this time..No further antibiotics for now 06/22 Patient discussed conversation she had with her brother that was reassuring. Patient felt understood by him and supported which has lifted her mood. She feels that although she still depressed perhaps some of the depression is lifting and she starting to feel that there is hope of change in her situation. Patient remains very anxious. Earlier she had said she did not want to get back on benzodiazepines, having been on Ativan 5 mg for decades, weaned off only about a year ago. However given patient's struggles with anxiety and the fact that benzos have helped her in the past, discussed restarting a benzodiazepine, this time clonazepam 0.5 mg b.i.d.; resume writer discussed at length risks for addiction and the constant desire to have more. Patient said she very much does not want that to happen and feels that she will be able to minimize her use 06/23 Depressed, with intermittent SI. very anxious and with despairing thoughts has upcoming anniversary of her father's which is this July 03; will try to make it remembrance day and change the perspective. -Feeling better about catheter and plan; resume writer discussed with urology who met with patient and plan is for July 05 to move forward with stimulator -patient attending groups and engaged in treatment 06/24 a little better; mood up and down and still intermittent SI but patient is working on being hopeful employee numerous coping skills. Agrees to increase Wellbutrin 06/25 Patient continues to report depressed mood; told nurse that she remains purging daily and still plans to attempt suicide when she leaves. However on the unit, she seems more relaxed. Patient shared with resume writer her plan to remember her father on the anniversary of his . 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 Currently she is eating enough. As this is a chronic problem that that has gone on for over 20 years, and with which patient has been able to cope with on her own, without needing hospitalizations or [facility] admissions since teenage years, resume writer does not expect that it will resolve during this inpatient stay and does not believe that it needs to. 06/27 very tearful sad; suicidal; pushing self to be around others, groups -talked about eating struggles, purging; trying not to 06/28 do not think that medication management will change patients depression at this time. Rather she needs continued time to process her feelings of despair, grief about her fathers , hx of trauma, feeling her future is bleak. -resume writer engaged in psychodynamic psychotherapy 06/29 same presentation; resume writer engaged in psychodynamic psychotherapy 06/30: feels clonidine and klonopin helpful for anxiety. asking for pain med change; deferred for return of attending, does not appear in pain. Q5s for SI/van. bar staff feel pt is not substantially worse than her recent inpatient baseline, but perhaps looking a bit better today than yesterday. 07/01: appears behaving as per usual for inpatient context. increase seroquel to 150 QHS for insomnia and appetite stimulation. continue current mgmt otherwise. 07/02: Continues depressed with suicidal thoughts. Says she wants to starve self. VSS. Check metabolic panel. 07/04 Patient continues to lament her past and anger and frustration with specific relationships. Says still feels hopeless can not stop thinking about ending her life. Discussed more about taking responsibility for feelings and while anger and frustration at others can be appropriate, it is also necessary to work on coping with such feelings. Patient said she will continue to try. Discussed history and patient has not really had SI till this October and discussed how these feelings will also pass... Discussed medication management and patient agreed to trial of lithium for continued depression and chronic SI. and increasing Vraylar -patient considers ending her life by starving herself though she has been eating on the unit. -discussed surgical implantation of bladder stimulator tomorrow 07/05 received?bladder?stimulator;?remains?with?indwelling?catheter?which?will?be?nancy floyd?tomorrow?or?the?following?day. -increased?Vraylar?to?6?mg 07/06 continue?with?treatment?plan;?DrParam?Aba Niño?helping?with?implanted?bladder?stim 07/07 adjusting to new device, bladder scan; discussed?how?history?of?trauma?left?patient?needing?to?a?certain?sense?of?contr ol [place]?her?life?in?body?which?likely?plays?a?part?into?developing?anorexia,?SI...??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
[2024-07-12 20:00] VITALS: BP 121/89; PULSE 94; RESP 16; TEMP 36.3; O2SAT 96
[2024-07-12] MEDS: Tamsulosin HCL 0.4 MG CAPSULE PO (21:45)
[2024-07-12] MEDS: Lithium Carbonate ER 300 MG TABLET.ER 600 MG PO (21:45)
[2024-07-12] MEDS: QUEtiapine Fumarate 50 MG TABLET 150 MG PO (21:46)
[2024-07-12] MEDS: cloNIDine HCL 0.1 MG TABLET PO (21:46)
[2024-07-13] MEDS: Acetaminophen 325 MG TABLET 650 MG PO ×2 (04:32→15:00)
[2024-07-13] MEDS: traMADoL HCL 50 MG TABLET PO ×3 (04:33→17:15)
[2024-07-13 07:53] VITALS: BP 109/67; PULSE 82; RESP 16; TEMP 36.4; O2SAT 95
[2024-07-13] MEDS: clonazePAM 0.5 MG TABLET PO ×2 (08:31→17:12)
[2024-07-13] MEDS: Ascorbic Acid 500 MG TABLET 1000 MG PO (08:31)
[2024-07-13] MEDS: Sulfamethox/Trimeth 800/160 TABLET 1 TAB PO ×2 (08:32→20:47)
[2024-07-13] MEDS: Cariprazine HCl 3 MG CAPSULE 6 MG PO (08:32)
[2024-07-13] MEDS: Bethanechol Chloride 25 MG TABLET PO ×3 (08:32→20:47)
[2024-07-13] MEDS: buPROPion HCl XL 150 MG TAB.ER.24H 450 MG PO (08:32)
[2024-07-13] MEDS: Lactulose 20 GM/30 ML SOLUTION 40 GM PO (08:32)
[2024-07-13] MEDS: BUPRENORPHINE 75 MCG 1 EACH PO ×2 (08:56→20:48)
--- NOTE | 2024-07-13 09:10 | P.PNPSI_ITS ---
Subjective Subjective Date of Service: 07/13/24 Reason For Visit: SI Interim History: met with patient; discussed with team pt shares challenging news, that brother is hospitalized, concern for cancer. However, she feels much more able to regulate her emotions and saying it's premature to get upset. No SI and remains focused on being stable. Engaged in CBT exercise and discussed core beliefs, automatic thoughts and how that affects feelings and behaviors. Excercise resonated with patient who agrees to practice being more aware of this process Mental Status Exam Mental Status Exam Narrative: Pt is alert and oriented; behavior is cooperative, friendly and calm, brighter and more engaged; patient is not in distress; dressed in casual attire with braided hair, glasses, adequate hygiene; mood is described as ok and affect congruent, overall brighter; eye contact appropriate; Speech is normal rate, volume and prosody and not pressured; no psychomotor agitation/retardation present; thought process is organized and goal directed; Thought content is on dealing with strong feelings, overcoming SI; otherwise pertinent to relevant topics and without any delusional content, paranoid ideations or grandiosity; no SI/no HI There is no evidence of perceptual disturbance. Patients insight and judgment impaired but much improved. Diagnostics Vital Signs (24Hr): Vital Signs - 24 hr 07/12/24 09:23 07/12/24 20:00 07/13/24 07:53 Temperature 98.6 F 97.4 F 97.6 F Pulse Rate 83 94 82 Respiratory Rate 16 16 16 Blood Pressure 123/67 121/89 109/67 Pulse Oximetry 95 96 95 Oxygen Delivery Method Room Air Room Air Room Air BMI result Body Mass Index 16.1 Labs 07/07/24 14:53 07/07/24 14:53 Imaging Radiology Impressions: ITS Impressions KUB X-Ray 06/03/24 19:55 IMPRESSION: Increased amount of stool in the colon suggesting constipation. Please correlate with clinical presentation. Electronically signed by: Oneida Pham MD 06/04/2024 07:31 AM EDT Renal Ultrasound 06/04/24 14:49 IMPRESSION: No ultrasound evidence of renal obstruction or hydronephrosis. Limited visualization of the left kidney obscured by bowel gas, exam otherwise unremarkable. Electronically signed by: Oneida Pham MD 06/05/2024 12:56 PM EDT RP Abdomen/Pelvis CT 06/04/24 18:33 IMPRESSION: Severe constipation. Otherwise unremarkable CT abdomen and pelvis. Fleischner guidelines were followed. Electronically signed by: Deyvi Collins MD 06/04/2024 07:05 PM EDT RP Ribs X-Ray 06/19/24 10:15 IMPRESSION: 1. Mild degenerative changes of the left shoulder. 2. No left-sided rib fracture. Electronically signed by: Orlando Lindsey MD 06/19/2024 10:50 AM EDT RP Shoulder X-Ray 06/19/24 10:15 IMPRESSION: 1. Mild degenerative changes of the left shoulder. 2. No left-sided rib fracture. Electronically signed by: Orlando Lindsey MD 06/19/2024 10:50 AM EDT RP Medications Medications Current Medications Acetaminophen (Acetaminophen 325 Mg Tablet) 650 mg PO Q8H [facility] Last Admin: 07/13/24 08:36 Dose: Not Given Al Hydroxide/Mg Hydroxide (Magnesium Hydrox/Alum Hydrox 30 Ml Oral.Susp) 30 ml PO Q6H PRN PRN Reason: Heartburn/Nausea Albuterol Sulfate (Albuterol Sulfate 90 Mcg 8 Gm Inhaler) 2 puff INHALE QID PRN PRN Reason: Shortness Of Breath Last Admin: 07/08/24 09:54 Dose: 2 puff Ascorbic Acid (Ascorbic Acid 500 Mg Tablet) 1,000 mg PO DAILY [facility] Last Admin: 07/13/24 08:31 Dose: 1,000 mg Benzocaine (Throat Lozenge, Medicated Lozenge) 1 lozenge MUCOUS MEM Q2H PRN PRN Reason: Sore Throat Last Admin: 07/10/24 16:08 Dose: 1 lozenge Bethanechol Chloride (Bethanechol Chloride 25 Mg Tablet) 25 mg PO TID [facility] Last Admin: 07/13/24 08:32 Dose: 25 mg Bisacodyl (Bisacodyl 5 Mg Tablet.Dr) 10 mg PO BEDTIME [facility] Last Admin: 07/13/24 01:32 Dose: Not Given Bupropion HCl (Bupropion Hcl Xl 150 Mg Tab.Er.24h) 450 mg PO DAILY [facility] Last Admin: 07/13/24 08:32 Dose: 450 mg Cariprazine (Cariprazine Hcl 3 Mg Capsule) 6 mg PO DAILY [facility] Last Admin: 07/13/24 08:32 Dose: 6 mg Clonazepam (Clonazepam 0.5 Mg Tablet) 0.5 mg PO BID@0900,1700 [facility] Last Admin: 07/13/24 08:31 Dose: 0.5 mg Clonidine HCl (Clonidine Hcl 0.1 Mg Tablet) 0.1 mg PO BEDTIME [facility]; Protocol Last Admin: 07/12/24 21:46 Dose: 0.1 mg Clonidine HCl (Clonidine Hcl 0.1 Mg Tablet) 0.1 mg PO Q4H PRN; Protocol PRN Reason: anxiety Last Admin: 07/07/24 12:52 Dose: 0.1 mg Hydroxyzine HCl (Hydroxyzine Hcl 25 Mg Tablet) 25 mg PO Q6H PRN PRN Reason: Anxiety Last Admin: 07/09/24 02:41 Dose: 25 mg Lactulose (Lactulose 20 Gm/30 Ml Solution) 40 gm PO DAILY [facility] Last Admin: 07/13/24 08:32 Dose: 40 gm Lidocaine (Lidocaine 4 % Patch Adh..Patch) 1 patch TRANSDERMA DAILY [facility]; Protocol Last Admin: 07/13/24 08:58 Dose: Not Given Lidocaine (Lidocaine 4 % Patch Adh..Patch) 2 patch TRANSDERMA DAILY [facility]; Protocol Last Admin: 07/13/24 08:58 Dose: Not Given Lidocaine HCl (Lidocaine Hcl 2 % Urojet 10 Ml Jel.Pf.Luis) 10 ml TOPICAL BID PRN PRN Reason: Pain, Severe (Pain Scale 7-10) Last Admin: 06/19/24 22:05 Dose: 10 ml Silverthorne Carbonate (Silverthorne Carbonate Er 300 Mg Tablet.Er) 600 mg PO BEDTIME [facility] Last Admin: 07/12/24 21:45 Dose: 600 mg Loperamide HCl (Loperamide Hcl 2 Mg Capsule) 2 mg PO Q4H PRN PRN Reason: Diarrhea Magnesium Hydroxide (Milk Of Magnesia 30 Ml Oral.Susp) 30 ml PO DAILY PRN PRN Reason: Constipation Last Admin: 06/04/24 05:22 Dose: 30 ml Multi-Ingred Cream/Lotion/Oil/Oint (Mineral Oil/Petrolatum,White 106 Gm Tube) 1 appl TOPICAL BID PRN; Protocol PRN Reason: Dry Skin Last Admin: 06/13/24 21:44 Dose: 1 appl Patient Own (Belbuca (75mcg Buccal Films)) 1 each PO BID [facility] Last Admin: 07/13/24 08:56 Dose: 1 each Ondansetron HCl (Ondansetron Odt 4 Mg Tab.Rapdis) 4 mg TRANSLINGU Q6H PRN PRN Reason: Nausea and Vomiting Last Admin: 06/18/24 16:17 Dose: 4 mg Polyethylene Glycol (Polyethylene Glycol 3350 17 Gm Powd.Pack) 17 gm PO BID [facility] Last Admin: 07/13/24 08:58 Dose: Not Given Quetiapine Fumarate (Quetiapine Fumarate 50 Mg Tablet) 150 mg PO BEDTIME [facility] Last Admin: 07/12/24 21:46 Dose: 150 mg Senna/Docusate Sodium (Sennosides/Docusate Sodium Tablet) 2 tab PO BID [facility] Last Admin: 07/13/24 08:58 Dose: Not Given Simethicone (Simethicone 80 Mg Tab.Chew) 160 mg PO BID PRN PRN Reason: bloating/gas Last Admin: 06/07/24 11:06 Dose: 160 mg Tamsulosin HCl (Tamsulosin Hcl 0.4 Mg Capsule) 0.4 mg PO BEDTIME [facility] Last Admin: 07/12/24 21:45 Dose: 0.4 mg Tramadol HCl (Tramadol Hcl 50 Mg Tablet) 50 mg PO Q6H PRN PRN Reason: Pain, Severe (Pain Scale 7-10) Last Admin: 07/13/24 04:33 Dose: 50 mg Trimethoprim/Sulfamethoxazole (Sulfamethox/Trimeth 800/160 Tablet) 1 tab PO Q12H [facility] Last Admin: 07/13/24 08:32 Dose: 1 tab Allergies Allergies Allergy/AdvReac Type Severity Reaction Status Date / Time azithromycin Allergy Itching Verified 06/21/24 12:35 levofloxacin [From Levaquin] Allergy Nightmare Verified 06/21/24 12:35 nitrofurantoin Allergy Itching Verified 06/21/24 12:35 [From Macrodantin] Assessment & Plan Assessment & Plan (1) MDD (major depressive disorder), recurrent episode, moderate: Status: Acute Code(s): F33.1 - Major depressive disorder, recurrent, moderate (2) PTSD (post-traumatic stress disorder): Status: Acute Code(s): F43.10 - Post-traumatic stress disorder, unspecified (3) Voiding dysfunction: Status: Acute Code(s): N39.8 - Other specified disorders of urinary system Assessment and Plan: She has no urinary concerns at this time No further antibiotics for now (4) Urinary retention: Status: Acute Code(s): R33.9 - Retention of urine, unspecified (5) Jennifer-Danlos disease: Status: Acute Code(s): Q79.60 - Jennifer-Danlos syndrome, unspecified (6) Osteogenesis imperfecta: Status: Acute Code(s): Q78.0 - Osteogenesis imperfecta (7) Myofascial pain syndrome: Status: Acute Code(s): M79.18 - Myalgia, other site Plan HPI: Patient is a 39-year-old female with history of Jennifer Danlos syndrome, osteogenesis imperfecta, myofascial pain syndrome, migraines, juvenile osteoporosis, asthma, and mood disorder with history of rectocele, vaginal mesh surgery, urinary retention requiring Van catheterization, which was recently restarted. P atient?presented?to?[facility]?on?924?following?intentional?overdose?on?muscle?rel axers.??Patient?lujan mary?was?immediately?transferred?to?medical?floor?for?urinary?retention;?she?stab ilized?there?and?was?discharged.?? She?presents?again?for?overdose On?gabapentin?and?trazodone,?Which?she?asserts?was?not?intentional (though later admits it was),?saying?she?just?wanted?to?sleep?and?get?relief?from?chronic?pain H owever?she?agrees?it?was?impulsive?and?unsafe.??Patient?currently?denies?any?SI. ??She?reports?howeve r?that?life?has?been?very?difficultff?pain?medications,?having?been?prescribed?o pioids?consistently?for?the?past?24?years,? as?well?as?Ativan.??Patient?agrees?she?needs Help?stabilizing?and?coping. Relevant Medical/psych History: Patient was on opiates scheduled for 24 years to manage chronic medical comorbidities, resulting in hx of multiple fractures/falls and subsequent chronic pain. Pt denies any hx of substance abuse, including cannabis. She did screen positive for Fentanyl at first admission in October 2024 but is adamant she's never used it in her life and no quantitative labs done (leaving Fentanyl use inconclusive). Patients long-time physician of [address] Brigido Dietrich retired and new PCP tapered her off and discontinued all opioid pain management (also tapered and dc'd ativan). Patient reports she has been in constant pain and discomfort since then and has felt very frustrated and challenged to enjoy life, sometimes challenging her desire to live. Discussed?case?with?PHOSPHATIC FERTILIZER SUPERVISOR Vianey Dunaway from pain management clinic: pt seen on 05/24. MAGDA Dunaway agrees that patients medical comorbidities and subsequent chronic pain syndrome are commonly treated with opioid pain management. She recommends either Butrans patch or preferably Belbucha films (a form of Buprenorphin and titrating it to 150mg BID). Pt is also appropriate to get other nerve blocking treatments at pain clinic who will f/u with pt. Brick Dropper spoke with patient's PCP Dr. Rubio at [facility] Dr. Rubio reports concurs that patient has Osteogenesis imprefecta, Ehlos Angelolos Pt was on opioids for 24 years with prior PCP. With [facility] she was on Oxycodine 30mg QID and Oxycontin 30mg daily. In Sep 2023 pt was admitted to [facility] for concern for overdose. Additionally, there were other concerns including that [facility] notes referenced that patient reported being on a Fentanyl patch, which this provider had never prescribed. Additionally, there was hx of patient needing refills early and a report that her mother had used some of her medications. Also patient had significant weight loss which provider was concerned might have contributed to possible accidental overdose. Because of these concerns provider, clinic repeatedly called patient to come in and discuss pain management and reportedly reached out to her from October until January however patient did not respond or come in for appointments, having missed several. Provider reports that because of lack of communication and ongoing concern that was never addressed, Provider felt it was necessary to taper patient off pain medication which was started in January; patient was also tapered off Ativan. Provider agrees that patient does have significant medical history that is commonly treated with chronic pain medication. Brick Dropper discussed options with them and Dr. Rubio agrees that starting patient on a buprenorphine product is an acceptable alternative to oxycodone. Vraylar since depressed and hx of manic-esque IMPRESSION: Patient's?depression?and?SI?seem?to?have significant?situational component?as?she?is?No?longer?receiving?pain?management?for?severe,?chronic?pain . P atient?has?no?known?history?of?substance?abuse.??Although?she?did?screen?positiv e?for?fentanyl (on?10/27/2023 and?05/18/2024), No?quantitative?analysis?was?done. ?This?mean that?fentanyl?screen?could?very?well?be?a?false-positive?result (which is not uncommon). Medical?decision?should?not?be?based?on?only?a?positive?screen?for?fentanyl. Patient does struggle with SI and with her chronic?pain?And?poor?support?will?likely?continue?to?produce?mood?instability.? ?Treatment?plan?will?include?automatic typewriter inspector/team?discussion?with Outpatient?PCP?regarding?plan?for?treatment. Hospital course: 06/05: Continue current regimen and plans 06/06. Continue current plans and regimen. Loperamide was put on hold. Started on simethicone by hospitalist. No indications of GI bleeding currently. -seen by GI: C/o constipation and worsening abdominal distension. Will order CT A/P with IV/PO contrast to assess for SBO/ileus though passage of gas and small amount of stool argues against complete obstruction; however she is at risk given multiple surgeries. If no obstruction will order bowel regimen to address constipation. Continue Van, Urology following. 06/07 Patient reports that she is depressed. She apologized for not being more forthcoming earlier on in says it took her awhile to admitted to herself but she does not want to be in this world anymore... And has a plan to jump in front of a train on discharge. Patient also reports that overdose on trazodone/gabapentin was actually an intentional suicide attempt. She reports a constant deluge of self-deprecating thoughts which include that she is worthless, discussed in, and fat. Brick Dropper reviewed patient's history of anorexia and patient reports she sees herself as fat every day and eats very little (history of anorexia since 14 years old; was at brought up oral for a month with a feeding tube; she understands that this is a significant cause of her chronic constipation). Despite her SI, patient does want help getting better agrees to try antidepressant medication; automatic typewriter inspector reviewed options and risks/side effects and patient with Vraylar. Also discussed pain medication management and patient agrees with Belbuca which she has heard of; she also agrees to non opioid pain management and will follow-up with pain management Clinic here at [facility]. Discussed relationship with her mother and she does not SA think her mother struggles with drug addiction but has caught her trying to get into her room, which patient keeps locked, looking for her medications which she has taken in the past. Patient said she reported this to her PCP. Patient does have history of being prescribed fentanyl patch however she did not like them and weaned herself off of them; set had some left over 06/08 Patient remains depressed with suicidal thinking however is trying to be hopeful and has tolerated Vraylar and says will continue, with increased dose; grateful for help getting Belbuca through prior authorization. -Discussed case with urology who recommends remaining with indwelling Van since failed voiding attempt on 06/03; will continue to follow -pt reported and nurse corroborated that Van bag containing urine was blood- tinged; discussed with Urologist, deemed likely micro trauma, and to keep van in place; recently failed voiding trial on 06/03 06/09 Patient reports she remains depressed, with SI. Patient also reports she had a very difficult time sleeping last night feeling very upset following a conversation she had on the phone with her mother. Patient expressed to her mother she is feeling hurt that her mom has not visited or called throughout her admission, even on patient's birthday; she says her mom was on apologetic. Patient also challenged her mom regarding her mom's past comment that patient could burn in hell with her father (who 2 years ago); mom remained unapologetic. Patient tells automatic typewriter inspector she has no idea why her mom said this other than that her mom is crazy... Subsequently patient reports that throughout the night, she had racing thoughts and no sleep. Discussed medications and patient and pt is eager to try Belbuca Films for pain management, available today dc'd gabapentin; pt said has never helped for pain or anxiety Adding clonidine at bedtime to help w/ sleep, anxiety 06/10 patient reports that Belbuca is helping with pain Patient remains very depressed and continues to have suicidal thoughts, saying she wants to end her life when she leaves the hospital. Patient Says I do not understand myself.. And laments she is gone most of her life without any suicidal ideation and only started this past September. Patient shared about some other reasons that it might be occurring and agrees that she still mourning the loss of her father who was her confidante; dealing with chronic pain having been off pain medications for several months and the ongoing struggles in her relationship with her mother and brother whom she feels are bullying; trying to come to terms with the fact that her mother simply isn't going to be the kind of mother she wishes she had. Patient agrees to medication management. 06/13 still very depressed with SI. Sleeping better however which is helpful and pain medications are also helpful. Patient agrees to increasing Vraylar; agrees to behavioral activation and attending groups. Despite ongoing thoughts about self-harm and ending her life when she is discharge, patient is also future oriented and says she would like to find a new place to live separate from her mother and brother. Asks for help going about that. 06/14 pt remains depressed, positive for SI with a plan but also future oriented talking about changing her living situation. Pt is engaged in treatment, trying to process her suicidal feelings and trying to be hopeful it will resolve. Agrees to adding Wellbutrin. -will likely add Wellbutrin; however, will probably keep Vraylar (maybe at lower dose) since pt has hx of manic-esque episodes (thought not formally diagnosed with bipolar as episode had several contributory factors) 06/15 remains depressed but processing feelings, doing worksheets, talking about her mother. Pt very anxious. -may increase wellbutrin for depression -considered starting Clonazepam 0.5mg BID; pt used to be on as much as 5mg of ativan daily; was weened off so hesitant to restart benzo's; 06/17 increase Wellbutrin 10/28 Over the weekend, patient assessed for infection, starting antibiotic; concerned that indwelling Van catheter is not sustainable; urology consulted and plan was for suprapubic catheter insertion for today. Patient however did not get fully informed of this and was upset to learn that a procedure was planned. She was however able to discuss this at length with automatic typewriter inspector and urology team and agreed to proceed. 06/21 Dr. Niño decided better to do a cystoscopy 1st and then decide whether not suprapubic catheter verse bladder stimulator; patient consents Seen by infectious disease: She has no urinary concerns at this time..No further antibiotics for now 06/22 Patient discussed conversation she had with her brother that was reassuring. Patient felt understood by him and supported which has lifted her mood. She feels that although she still depressed perhaps some of the depression is lifting and she starting to feel that there is hope of change in her situation. Patient remains very anxious. Earlier she had said she did not want to get back on benzodiazepines, having been on Ativan 5 mg for decades, weaned off only about a year ago. However given patient's struggles with anxiety and the fact that benzos have helped her in the past, discussed restarting a benzodiazepine, this time clonazepam 0.5 mg b.i.d.; automatic typewriter inspector discussed at length risks for addiction and the constant desire to have more. Patient said she very much does not want that to happen and feels that she will be able to minimize her use 06/23 Depressed, with intermittent SI. very anxious and with despairing thoughts has upcoming anniversary of her father's which is this July 03; will try to make it remembrance day and change the perspective. -Feeling better about catheter and plan; automatic typewriter inspector discussed with urology who met with patient and plan is for July 05 to move forward with stimulator -patient attending groups and engaged in treatment 06/24 a little better; mood up and down and still intermittent SI but patient is working on being hopeful employee numerous coping skills. Agrees to increase Wellbutrin 06/25 Patient continues to report depressed mood; told nurse that she remains purging daily and still plans to attempt suicide when she leaves. However on the unit, she seems more relaxed. Patient shared with automatic typewriter inspector her plan to remember her father on the anniversary of his . 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 Currently she is eating enough. As this is a chronic problem that that has gone on for over 20 years, and with which patient has been able to cope with on her own, without needing hospitalizations or [facility] admissions since teenage years, automatic typewriter inspector does not expect that it will resolve during this inpatient stay and does not believe that it needs to. 06/27 very tearful sad; suicidal; pushing self to be around others, groups -talked about eating struggles, purging; trying not to 06/28 do not think that medication management will change patients depression at this time. Rather she needs continued time to process her feelings of despair, grief about her fathers , hx of trauma, feeling her future is bleak. -automatic typewriter inspector engaged in psychodynamic psychotherapy 06/29 same presentation; automatic typewriter inspector engaged in psychodynamic psychotherapy 06/30: feels clonidine and klonopin helpful for anxiety. asking for pain med change; deferred for return of attending, does not appear in pain. Q5s for SI/van. staff mechanical engineer feel pt is not substantially worse than her recent inpatient baseline, but perhaps looking a bit better today than yesterday. 07/01: appears behaving as per usual for inpatient context. increase seroquel to 150 QHS for insomnia and appetite stimulation. continue current mgmt otherwise. 07/02: Continues depressed with suicidal thoughts. Says she wants to starve self. VSS. Check metabolic panel. 07/04 Patient continues to lament her past and anger and frustration with specific relationships. Says still feels hopeless can not stop thinking about ending her life. Discussed more about taking responsibility for feelings and while anger and frustration at others can be appropriate, it is also necessary to work on coping with such feelings. Patient said she will continue to try. Discussed history and patient has not really had SI till this October and discussed how these feelings will also pass... Discussed medication management and patient agreed to trial of lithium for continued depression and chronic SI. and increasing Vraylar -patient considers ending her life by starving herself though she has been eating on the unit. -discussed surgical implantation of bladder stimulator tomorrow 07/05 received?bladder?stimulator;?remains?with?indwelling?catheter?which?will?be?nancy floyd?tomorrow?or?the?following?day. -increased?Vraylar?to?6?mg 07/06 continue?with?treatment?plan;?DrParam?Aba Good?helping?with?implanted?bladder?stim 07/07 adjusting to new device, bladder scan; discussed?how?history?of?trauma?left?patient?needing?to?a?certain?sense?of?contr ol O mary?her?life?in?body?which?likely?plays?a?part?into?developing?anorexia,?SI...?? This?idea?resonate?with?patient? w ho?agreed?that?she?is?overly?focused?on?blaming?others?and?giving?to?little?atte ntion?to?how?to?work?on Her?own?personal?issues. 1 09/07?continue?current?treatment?plan?except?will?increase?lithium?to?help?with?d epression P atient?continues?to?make?statements?that?she?is?thinking?of?ending?her?life.??In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
[2024-07-13] MEDS: polyethylene glycoL 3350 17 GM POWD.PACK PO (15:45)
[2024-07-13 20:00] VITALS: BP 150/77; PULSE 85; TEMP 36.9; O2SAT 97
[2024-07-13 20:47] VITALS: BP 150/77
[2024-07-13] MEDS: Lithium Carbonate ER 300 MG TABLET.ER 600 MG PO (20:47)
[2024-07-13] MEDS: Tamsulosin HCL 0.4 MG CAPSULE PO (20:47)
[2024-07-13] MEDS: cloNIDine HCL 0.1 MG TABLET PO (20:47)
[2024-07-13] MEDS: QUEtiapine Fumarate 50 MG TABLET 150 MG PO (20:47)
[2024-07-14] MEDS: traMADoL HCL 50 MG TABLET PO ×4 (00:41→19:33)
[2024-07-14] MEDS: Acetaminophen 325 MG TABLET 650 MG PO ×3 (00:42→14:48)
[2024-07-14 08:00] VITALS: BP 116/70; PULSE 78; TEMP 36.8; O2SAT 96
[2024-07-14] MEDS: Bethanechol Chloride 25 MG TABLET PO ×3 (08:27→21:28)
[2024-07-14] MEDS: Cariprazine HCl 3 MG CAPSULE 6 MG PO (08:27)
[2024-07-14] MEDS: clonazePAM 0.5 MG TABLET PO ×2 (08:27→16:26)
[2024-07-14] MEDS: Sennosides/Docusate Sodium TABLET 2 TAB PO ×2 (08:27→21:29)
[2024-07-14] MEDS: Ascorbic Acid 500 MG TABLET 1000 MG PO (08:28)
[2024-07-14] MEDS: buPROPion HCl XL 150 MG TAB.ER.24H 450 MG PO (08:28)
[2024-07-14] MEDS: Sulfamethox/Trimeth 800/160 TABLET 1 TAB PO ×2 (08:28→21:27)
[2024-07-14] MEDS: BUPRENORPHINE 75 MCG 1 EACH PO ×2 (08:45→21:32)
[2024-07-14 12:32] VITALS: BP 128/75
[2024-07-14] MEDS: cloNIDine HCL 0.1 MG TABLET PO ×2 (12:32→21:29)
--- NOTE | 2024-07-14 19:17 | P.PNPSI_ITS ---
Subjective Subjective Date of Service: 07/14/24 Reason For Visit: SI Interim History: Met with patient; discussed with team Patient doing better, good mood and much more hopeful. Today ate half of her breakfast and half of her lunch. Patient discussed how she is optimistic and very much wants to be alive; will continue to fight against intermittent SI thoughts Mental Status Exam Mental Status Exam Narrative: Pt is alert and oriented; behavior is cooperative, friendly and calm, brighter and more engaged; patient is not in distress; dressed in casual attire with braided hair, glasses, adequate hygiene; mood is described as good and affect congruent, overall brighter; eye contact appropriate; Speech is normal rate, volume and prosody and not pressured; no psychomotor agitation/retardation present; thought process is organized and goal directed; Thought content is on dealing with strong feelings, overcoming SI; otherwise pertinent to relevant topics and without any delusional content, paranoid ideations or grandiosity; no SI/no HI There is no evidence of perceptual disturbance. Patients insight and judgment fair Diagnostics Vital Signs (24Hr): Vital Signs - 24 hr 07/13/24 20:00 07/13/24 20:47 07/14/24 08:00 Temperature 98.5 F 98.3 F Pulse Rate 85 78 Blood Pressure 150/77 H 150/77 H 116/70 Pulse Oximetry 97 96 Oxygen Delivery Method Room Air Room Air 07/14/24 12:32 Temperature Pulse Rate Blood Pressure 128/75 Pulse Oximetry Oxygen Delivery Method BMI result Body Mass Index 16.1 Labs 07/07/24 14:53 07/23/24 10:21 Imaging Radiology Impressions: ITS Impressions KUB X-Ray 06/03/24 19:55 IMPRESSION: Increased amount of stool in the colon suggesting constipation. Please correlate with clinical presentation. Electronically signed by: Oneida Pham MD 06/04/2024 07:31 AM EDT RP Renal Ultrasound 06/04/24 14:49 IMPRESSION: No ultrasound evidence of renal obstruction or hydronephrosis. Limited visualization of the left kidney obscured by bowel gas, exam otherwise unremarkable. Electronically signed by: Oneida Pham MD 06/05/2024 12:56 PM EDT RP Abdomen/Pelvis CT 06/04/24 18:33 IMPRESSION: Severe constipation. Otherwise unremarkable CT abdomen and pelvis. Fleischner guidelines were followed. Electronically signed by: Deyvi Collins MD 06/04/2024 07:05 PM EDT RP Ribs X-Ray 06/19/24 10:15 IMPRESSION: 1. Mild degenerative changes of the left shoulder. 2. No left-sided rib fracture. Electronically signed by: Orlando Lindsey MD 06/19/2024 10:50 AM EDT RP Shoulder X-Ray 06/19/24 10:15 IMPRESSION: 1. Mild degenerative changes of the left shoulder. 2. No left-sided rib fracture. Electronically signed by: Orlando Lindsey MD 06/19/2024 10:50 AM EDT RP Medications Medications Current Medications Acetaminophen (Acetaminophen 325 Mg Tablet) 650 mg PO Q8H [facility] Last Admin: 07/14/24 14:48 Dose: 650 mg Al Hydroxide/Mg Hydroxide (Magnesium Hydrox/Alum Hydrox 30 Ml Oral.Susp) 30 ml PO Q6H PRN PRN Reason: Heartburn/Nausea Albuterol Sulfate (Albuterol Sulfate 90 Mcg 8 Gm Inhaler) 2 puff INHALE QID PRN PRN Reason: Shortness Of Breath Last Admin: 07/08/24 09:54 Dose: 2 puff Ascorbic Acid (Ascorbic Acid 500 Mg Tablet) 1,000 mg PO DAILY [facility] Last Admin: 07/14/24 08:28 Dose: 1,000 mg Benzocaine (Throat Lozenge, Medicated Lozenge) 1 lozenge MUCOUS MEM Q2H PRN PRN Reason: Sore Throat Last Admin: 07/10/24 16:08 Dose: 1 lozenge Bethanechol Chloride (Bethanechol Chloride 25 Mg Tablet) 25 mg PO TID [facility] Last Admin: 07/14/24 14:49 Dose: 25 mg Bisacodyl (Bisacodyl 5 Mg Tablet.Dr) 10 mg PO BEDTIME [facility] Last Admin: 07/13/24 20:48 Dose: Not Given Bupropion HCl (Bupropion Hcl Xl 150 Mg Tab.Er.24h) 450 mg PO DAILY [facility] Last Admin: 07/14/24 08:28 Dose: 450 mg Cariprazine (Cariprazine Hcl 3 Mg Capsule) 6 mg PO DAILY [facility] Last Admin: 07/14/24 08:27 Dose: 6 mg Clonazepam (Clonazepam 0.5 Mg Tablet) 0.5 mg PO BID@0900,1700 [facility] Last Admin: 07/14/24 16:26 Dose: 0.5 mg Clonidine HCl (Clonidine Hcl 0.1 Mg Tablet) 0.1 mg PO BEDTIME [facility]; Protocol Last Admin: 07/13/24 20:47 Dose: 0.1 mg Clonidine HCl (Clonidine Hcl 0.1 Mg Tablet) 0.1 mg PO Q4H PRN; Protocol PRN Reason: anxiety Last Admin: 07/14/24 12:32 Dose: 0.1 mg Hydroxyzine HCl (Hydroxyzine Hcl 25 Mg Tablet) 25 mg PO Q6H PRN PRN Reason: Anxiety Last Admin: 07/09/24 02:41 Dose: 25 mg Lactulose (Lactulose 20 Gm/30 Ml Solution) 40 gm PO DAILY [facility] Last Admin: 07/14/24 08:28 Dose: Not Given Lidocaine (Lidocaine 4 % Patch Adh..Patch) 1 patch TRANSDERMA DAILY [facility]; Protocol Last Admin: 07/14/24 08:29 Dose: Not Given Lidocaine (Lidocaine 4 % Patch Adh..Patch) 2 patch TRANSDERMA DAILY [facility]; Protocol Last Admin: 07/14/24 08:28 Dose: Not Given Lidocaine HCl (Lidocaine Hcl 2 % Urojet 10 Ml Jel.Pf.Luis) 10 ml TOPICAL BID PRN PRN Reason: Pain, Severe (Pain Scale 7-10) Last Admin: 06/19/24 22:05 Dose: 10 ml Thompsons Carbonate (Thompsons Carbonate Er 300 Mg Tablet.Er) 600 mg PO BEDTIME [facility] Last Admin: 07/13/24 20:47 Dose: 600 mg Loperamide HCl (Loperamide Hcl 2 Mg Capsule) 2 mg PO Q4H PRN PRN Reason: Diarrhea Magnesium Hydroxide (Milk Of Magnesia 30 Ml Oral.Susp) 30 ml PO DAILY PRN PRN Reason: Constipation Last Admin: 06/04/24 05:22 Dose: 30 ml Multi-Ingred Cream/Lotion/Oil/Oint (Mineral Oil/Petrolatum,White 106 Gm Tube) 1 appl TOPICAL BID PRN; Protocol PRN Reason: Dry Skin Last Admin: 06/13/24 21:44 Dose: 1 appl Patient Own (Belbuca (75mcg Buccal Films)) 1 each PO BID [facility] Last Admin: 07/14/24 08:45 Dose: 1 each Ondansetron HCl (Ondansetron Odt 4 Mg Tab.Rapdis) 4 mg TRANSLINGU Q6H PRN PRN Reason: Nausea and Vomiting Last Admin: 06/18/24 16:17 Dose: 4 mg Polyethylene Glycol (Polyethylene Glycol 3350 17 Gm Powd.Pack) 17 gm PO BID [facility] Last Admin: 07/14/24 08:29 Dose: Not Given Quetiapine Fumarate (Quetiapine Fumarate 50 Mg Tablet) 150 mg PO BEDTIME [facility] Last Admin: 07/13/24 20:47 Dose: 150 mg Senna/Docusate Sodium (Sennosides/Docusate Sodium Tablet) 2 tab PO BID [facility] Last Admin: 07/14/24 08:27 Dose: 2 tab Simethicone (Simethicone 80 Mg Tab.Chew) 160 mg PO BID PRN PRN Reason: bloating/gas Last Admin: 06/07/24 11:06 Dose: 160 mg Tamsulosin HCl (Tamsulosin Hcl 0.4 Mg Capsule) 0.4 mg PO BEDTIME [facility] Last Admin: 07/13/24 20:47 Dose: 0.4 mg Tramadol HCl (Tramadol Hcl 50 Mg Tablet) 50 mg PO Q6H PRN PRN Reason: Pain, Severe (Pain Scale 7-10) Last Admin: 07/14/24 13:16 Dose: 50 mg Trimethoprim/Sulfamethoxazole (Sulfamethox/Trimeth 800/160 Tablet) 1 tab PO Q12H [facility] Last Admin: 07/14/24 08:28 Dose: 1 tab Allergies Allergies Allergy/AdvReac Type Severity Reaction Status Date / Time azithromycin Allergy Itching Verified 06/21/24 12:35 levofloxacin [From Levaquin] Allergy Nightmare Verified 06/21/24 12:35 nitrofurantoin Allergy Itching Verified 06/21/24 12:35 [From Macrodantin] Assessment & Plan Assessment & Plan (1) MDD (major depressive disorder), recurrent episode, moderate: Status: Acute Code(s): F33.1 - Major depressive disorder, recurrent, moderate (2) PTSD (post-traumatic stress disorder): Status: Acute Code(s): F43.10 - Post-traumatic stress disorder, unspecified (3) Voiding dysfunction: Status: Acute Code(s): N39.8 - Other specified disorders of urinary system Assessment and Plan: She has no urinary concerns at this time No further antibiotics for now (4) Urinary retention: Status: Acute Code(s): R33.9 - Retention of urine, unspecified (5) Jennifer-Danlos disease: Status: Acute Code(s): Q79.60 - Jennifer-Danlos syndrome, unspecified (6) Osteogenesis imperfecta: Status: Acute Code(s): Q78.0 - Osteogenesis imperfecta (7) Myofascial pain syndrome: Status: Acute Code(s): M79.18 - Myalgia, other site Plan HPI: Patient is a 39-year-old female with history of Jennifer Danlos syndrome, osteogenesis imperfecta, myofascial pain syndrome, migraines, juvenile osteoporosis, asthma, and mood disorder with history of rectocele, vaginal mesh surgery, urinary retention requiring Van catheterization, which was recently restarted. P atient?presented?to?[facility]?on?924?following?intentional?overdose?on?muscle?rel axers.??Patient?lujan mary?was?immediately?transferred?to?medical?floor?for?urinary?retention;?she?stab ilized?there?and?was?discharged.?? She?presents?again?for?overdose On?gabapentin?and?trazodone,?Which?she?asserts?was?not?intentional (though later admits it was),?saying?she?just?wanted?to?sleep?and?get?relief?from?chronic?pain H owever?she?agrees?it?was?impulsive?and?unsafe.??Patient?currently?denies?any?SI. ??She?reports?howeve r?that?life?has?been?very?difficultff?pain?medications,?having?been?prescribed?o pioids?consistently?for?the?past?24?years,? as?well?as?Ativan.??Patient?agrees?she?needs Help?stabilizing?and?coping. Relevant Medical/psych History: Patient was on opiates scheduled for 24 years to manage chronic medical comorbidities, resulting in hx of multiple fractures/falls and subsequent chronic pain. Pt denies any hx of substance abuse, including cannabis. She did screen positive for Fentanyl at first admission in October 2024 but is adamant she's never used it in her life and no quantitative labs done (leaving Fentanyl use inconclusive). Patients long-time physician of [address] Brigido Dietrich retired and new PCP tapered her off and discontinued all opioid pain management (also tapered and dc'd ativan). Patient reports she has been in constant pain and discomfort since then and has felt very frustrated and challenged to enjoy life, sometimes challenging her desire to live. Discussed?case?with?MAGDA Dunaway from pain management clinic: pt seen on 05/24. TRAVELING CONSTRUCTION SUPERINTENDENT Gume agrees that patients medical comorbidities and subsequent chronic pain syndrome are commonly treated with opioid pain management. She recommends either Butrans patch or preferably Belbucha films (a form of Buprenorphin and titrating it to 150mg BID). Pt is also appropriate to get other nerve blocking treatments at pain clinic who will f/u with pt. Vocational Technical Education Teacher spoke with patient's PCP Dr. Rubio at [facility] Dr. Rubio reports concurs that patient has Osteogenesis imprefecta, Ehlos Danlos Pt was on opioids for 24 years with prior PCP. With [facility] she was on Oxycodine 30mg QID and Oxycontin 30mg daily. In Sep 2023 pt was admitted to [facility] for concern for overdose. Additionally, there were other concerns including that [facility] notes referenced that patient reported being on a Fentanyl patch, which this provider had never prescribed. Additionally, there was hx of patient needing refills early and a report that her mother had used some of her medications. Also patient had significant weight loss which provider was concerned might have contributed to possible accidental overdose. Because of these concerns provider, clinic repeatedly called patient to come in and discuss pain management and reportedly reached out to her from October until January however patient did not respond or come in for appointments, having missed several. Provider reports that because of lack of communication and ongoing concern that was never addressed, Provider felt it was necessary to taper patient off pain medication which was started in January; patient was also tapered off Ativan. Provider agrees that patient does have significant medical history that is commonly treated with chronic pain medication. Vocational Technical Education Teacher discussed options with them and Dr. Rubio agrees that starting patient on a buprenorphine product is an acceptable alternative to oxycodone. Vraylar since depressed and hx of manic-esque IMPRESSION: Patient's?depression?and?SI?seem?to?have significant?situational component?as?she?is?No?longer?receiving?pain?management?for?severe,?chronic?pain . P atient?has?no?known?history?of?substance?abuse.??Although?she?did?screen?positiv e?for?fentanyl (on?10/27/2023 and?05/18/2024), No?quantitative?analysis?was?done. ?This?mean that?fentanyl?screen?could?very?well?be?a?false-positive?result (which is not uncommon). Medical?decision?should?not?be?based?on?only?a?positive?screen?for?fentanyl. Patient does struggle with SI and with her chronic?pain?And?poor?support?will?likely?continue?to?produce?mood?instability.? ?Treatment?plan?will?include?policy writer sales/team?discussion?with Outpatient?PCP?regarding?plan?for?treatment. Hospital course: 06/05: Continue current regimen and plans 06/06. Continue current plans and regimen. Loperamide was put on hold. Started on simethicone by hospitalist. No indications of GI bleeding currently. -seen by GI: C/o constipation and worsening abdominal distension. Will order CT A/P with IV/PO contrast to assess for SBO/ileus though passage of gas and small amount of stool argues against complete obstruction; however she is at risk given multiple surgeries. If no obstruction will order bowel regimen to address constipation. Continue Van, Urology following. 06/07 Patient reports that she is depressed. She apologized for not being more forthcoming earlier on in says it took her awhile to admitted to herself but she does not want to be in this world anymore... And has a plan to jump in front of a train on discharge. Patient also reports that overdose on trazodone/gabapentin was actually an intentional suicide attempt. She reports a constant deluge of self-deprecating thoughts which include that she is worthless, discussed in, and fat. 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 Despite her SI, patient does want help getting better agrees to try antidepressant medication; policy writer sales reviewed options and risks/side effects and patient with Vraylar. Also discussed pain medication management and patient agrees with Belbuca which she has heard of; she also agrees to non opioid pain management and will follow-up with pain management Clinic here at [facility]. Discussed relationship with her mother and she does not SA think her mother struggles with drug addiction but has caught her trying to get into her room, which patient keeps locked, looking for her medications which she has taken in the past. Patient said she reported this to her PCP. Patient does have history of being prescribed fentanyl patch however she did not like them and weaned herself off of them; set had some left over 06/08 Patient remains depressed with suicidal thinking however is trying to be hopeful and has tolerated Vraylar and says will continue, with increased dose; grateful for help getting Belbuca through prior authorization. -Discussed case with urology who recommends remaining with indwelling Van since failed voiding attempt on 06/03; will continue to follow -pt reported and nurse corroborated that Van bag containing urine was blood- tinged; discussed with Urologist, deemed likely micro trauma, and to keep van in place; recently failed voiding trial on 06/03 06/09 Patient reports she remains depressed, with SI. Patient also reports she had a very difficult time sleeping last night feeling very upset following a conversation she had on the phone with her mother. Patient expressed to her mother she is feeling hurt that her mom has not visited or called throughout her admission, even on patient's birthday; she says her mom was on apologetic. Patient also challenged her mom regarding her mom's past comment that patient could burn in hell with her father (who 2 years ago); mom remained unapologetic. Patient tells policy writer sales she has no idea why her mom said this other than that her mom is crazy... Subsequently patient reports that throughout the night, she had racing thoughts and no sleep. Discussed medications and patient and pt is eager to try Belbuca Films for pain management, available today dc'd gabapentin; pt said has never helped for pain or anxiety Adding clonidine at bedtime to help w/ sleep, anxiety 06/10 patient reports that Belbuca is helping with pain Patient remains very depressed and continues to have suicidal thoughts, saying she wants to end her life when she leaves the hospital. Patient Says I do not understand myself.. And laments she is gone most of her life without any suicidal ideation and only started this past September. Patient shared about some other reasons that it might be occurring and agrees that she still mourning the loss of her father who was her confidante; dealing with chronic pain having been off pain medications for several months and the ongoing struggles in her relationship with her mother and brother whom she feels are bullying; trying to come to terms with the fact that her mother simply isn't going to be the kind of mother she wishes she had. Patient agrees to medication management. 06/13 still very depressed with SI. Sleeping better however which is helpful and pain medications are also helpful. Patient agrees to increasing Vraylar; agrees to behavioral activation and attending groups. Despite ongoing thoughts about self-harm and ending her life when she is discharge, patient is also future oriented and says she would like to find a new place to live separate from her mother and brother. Asks for help going about that. 06/14 pt remains depressed, positive for SI with a plan but also future oriented talking about changing her living situation. Pt is engaged in treatment, trying to process her suicidal feelings and trying to be hopeful it will resolve. Agrees to adding Wellbutrin. -will likely add Wellbutrin; however, will probably keep Vraylar (maybe at lower dose) since pt has hx of manic-esque episodes (thought not formally diagnosed with bipolar as episode had several contributory factors) 06/15 remains depressed but processing feelings, doing worksheets, talking about her mother. Pt very anxious. -may increase wellbutrin for depression -considered starting Clonazepam 0.5mg BID; pt used to be on as much as 5mg of ativan daily; was weened off so hesitant to restart benzo's; 06/17 increase Wellbutrin 06/20 Over the weekend, patient assessed for infection, starting antibiotic; concerned that indwelling Van catheter is not sustainable; urology consulted and plan was for suprapubic catheter insertion for today. Patient however did not get fully informed of this and was upset to learn that a procedure was planned. She was however able to discuss this at length with policy writer sales and urology team and agreed to proceed. 06/21 Dr. Niño decided better to do a cystoscopy 1st and then decide whether not suprapubic catheter verse bladder stimulator; patient consents Seen by infectious disease: She has no urinary concerns at this time..No further antibiotics for now 06/22 Patient discussed conversation she had with her brother that was reassuring. Patient felt understood by him and supported which has lifted her mood. She feels that although she still depressed perhaps some of the depression is lifting and she starting to feel that there is hope of change in her situation. Patient remains very anxious. Earlier she had said she did not want to get back on benzodiazepines, having been on Ativan 5 mg for decades, weaned off only about a year ago. However given patient's struggles with anxiety and the fact that benzos have helped her in the past, discussed restarting a benzodiazepine, this time clonazepam 0.5 mg b.i.d.; policy writer sales discussed at length risks for addiction and the constant desire to have more. Patient said she very much does not want that to happen and feels that she will be able to minimize her use 06/23 Depressed, with intermittent SI. very anxious and with despairing thoughts has upcoming anniversary of her father's which is this July 03; will try to make it remembrance day and change the perspective. -Feeling better about catheter and plan; policy writer sales discussed with urology who met with patient and plan is for July 05 to move forward with stimulator -patient attending groups and engaged in treatment 06/24 a little better; mood up and down and still intermittent SI but patient is working on being hopeful employee numerous coping skills. Agrees to increase Wellbutrin 06/25 Patient continues to report depressed mood; told nurse that she remains purging daily and still plans to attempt suicide when she leaves. However on the unit, she seems more relaxed. Patient shared with policy writer sales her plan to remember her father on the anniversary of his . 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 Currently she is eating enough. As this is a chronic problem that that has gone on for over 20 years, and with which patient has been able to cope with on her own, without needing hospitalizations or [facility] admissions since teenage years, policy writer sales does not expect that it will resolve during this inpatient stay and does not believe that it needs to. 06/27 very tearful sad; suicidal; pushing self to be around others, groups -talked about eating struggles, purging; trying not to 06/28 do not think that medication management will change patients depression at this time. Rather she needs continued time to process her feelings of despair, grief about her fathers , hx of trauma, feeling her future is bleak. -policy writer sales engaged in psychodynamic psychotherapy 06/29 same presentation; policy writer sales engaged in psychodynamic psychotherapy 06/30: feels clonidine and klonopin helpful for anxiety. asking for pain med change; deferred for return of attending, does not appear in pain. Q5s for SI/van. director of midwifery/staff midwife feel pt is not substantially worse than her recent inpatient baseline, but perhaps looking a bit better today than yesterday. 07/01: appears behaving as per usual for inpatient context. increase seroquel to 150 QHS for insomnia and appetite stimulation. continue current mgmt otherwise. 07/02: Continues depressed with suicidal thoughts. Says she wants to starve self. VSS. Check metabolic panel. 07/04 Patient continues to lament her past and anger and frustration with specific relationships. Says still feels hopeless can not stop thinking about ending her life. Discussed more about taking responsibility for feelings and while anger and frustration at others can be appropriate, it is also necessary to work on coping with such feelings. Patient said she will continue to try. Discussed history and patient has not really had SI till this October and discussed how these feelings will also pass... Discussed medication management and patient agreed to trial of lithium for continued depression and chronic SI. and increasing Vraylar -patient considers ending her life by starving herself though she has been eating on the unit. -discussed surgical implantation of bladder stimulator tomorrow 07/05 received?bladder?stimulator;?remains?with?indwelling?catheter?which?will?be?nancy floyd?tomorrow?or?the?following?day. -increased?Vraylar?to?6?mg 07/06 continue?with?treatment?plan;??Aba Good?helping?with?implanted?bladder?stim 07/07 adjusting to new device, bladder scan; discussed?how?history?of?trauma?left?patient?needing?to?a?certain?sense?of?contr ol [place]?her?life?in?body?which?likely?plays?a?part?into?developing?anorexia,?SI...?? This?idea?resonate?with?patient? w ho?agreed?that?she?is?overly?focused?on?blaming?others?and?giving?to?little?atte ntion?to?how?to?work?on Her?own?personal?issues. 1 09/07?continue?current?treatment?plan?except?will?increase?lithium?to?help?with?d epression P atient?continues?to?make?statements?that?she?is?thinking?of?ending?her?life.??In ?the?same?conversation?however?she?will?also?discuss H er?efforts?to?move?out?of?her?mother's?house?and?get?her?own?place?to?live;?she? talks?about?being?able?to?bear?living?there?while She?makes?plans?to?move?out.?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
[2024-07-14 20:00] VITALS: BP 117/68; PULSE 87; RESP 20; TEMP 36.6; O2SAT 96
[2024-07-14] MEDS: Tamsulosin HCL 0.4 MG CAPSULE PO (21:29)
[2024-07-14] MEDS: Lithium Carbonate ER 300 MG TABLET.ER 600 MG PO (21:29)
[2024-07-14] MEDS: QUEtiapine Fumarate 50 MG TABLET 150 MG PO (21:30)
[2024-07-15 08:00] VITALS: BP 124/74; PULSE 90; TEMP 36.5; O2SAT 97
[2024-07-15] MEDS: Sulfamethox/Trimeth 800/160 TABLET 1 TAB PO ×2 (08:00→20:09)
--- NOTE | 2024-07-15 09:00 | P.PNUR_ITS ---
Subjective Subjective Date of Service: 07/16/24 Interval history: Mandy is a 39 year old female with voiding dysfunction. s/p bilateral lead implant in the S3 foremen - stage 1 The patient continues to require ISC by nursing Evaluation today Left lead was on program 1 (Electrode 2 negative 0+, and patient stated she felt vibration at amplitude 2.45; changed to Prog 2 - (1 negative. 3+) rate increased from 14 to 21, patient felt vibration at amplitude 1.5. Evaluated right lead which was on progarm 1 -(electrode 0 negative, 3+--she felt vibration at amplitude 1.6 changed to Prog 2 (Electrode 3 negative, 0+ ) rate 14 -- she felt vibration at amplitude 0.7. Physical Exam 2 Vital Signs: Vital Signs: Last Vital Signs Temp 98 F 07/14/24 20:00 Pulse 87 07/14/24 20:00 Resp 20 07/14/24 20:00 BP 117/68 07/14/24 20:00 Pulse Ox 96 07/14/24 20:00 O2 Del Method Room Air 07/14/24 20:00 BMI result Body Mass Index 16.1 Urology Results Labs 07/07/24 14:53 07/07/24 14:53 Progress Note: A&P Assessment and plan (1) Voiding dysfunction: Status: Acute (2) PTSD (post-traumatic stress disorder): Status: Acute (3) Chronic pain syndrome: Status: Acute (4) Urinary retention: Status: Acute Plan Sacral Neuromodulation Interstim trial. No improvement. The patient is still requiring ISC. Interstim Program changed Time Spent With Patient Time: Total time managing care of this patient today ____ minutes.
[2024-07-15] MEDS: Sennosides/Docusate Sodium TABLET 2 TAB PO (09:25)
[2024-07-15] MEDS: BUPRENORPHINE 75 MCG 1 EACH PO ×2 (09:26→20:11)
[2024-07-15] MEDS: Cariprazine HCl 3 MG CAPSULE 6 MG PO (09:26)
[2024-07-15] MEDS: Ascorbic Acid 500 MG TABLET 1000 MG PO (09:27)
[2024-07-15] MEDS: clonazePAM 0.5 MG TABLET PO ×2 (09:27→17:37)
[2024-07-15] MEDS: Bethanechol Chloride 25 MG TABLET PO ×3 (09:27→20:09)
[2024-07-15] MEDS: buPROPion HCl XL 150 MG TAB.ER.24H 450 MG PO (09:27)
[2024-07-15] MEDS: traMADoL HCL 50 MG TABLET PO ×2 (09:34→15:40)
[2024-07-15 13:17] VITALS: BP 119/74; PULSE 89
[2024-07-15] MEDS: Acetaminophen 325 MG TABLET 650 MG PO ×2 (13:19→17:37)
[2024-07-15] MEDS: cloNIDine HCL 0.1 MG TABLET PO ×3 (13:19→20:11)
[2024-07-15] MEDS: Aspirin Enteric Coated 81 MG TABLET.DR 162 MG PO (17:37)
[2024-07-15 18:29] VITALS: BP 113/56; PULSE 84; TEMP 36.4; O2SAT 98
--- NOTE | 2024-07-15 19:10 | HO.PSYCHPN ---
Subjective Subjective Date of Service: 07/15/24 Reason For Visit: SI Interim History: met with pt; discussed with team Pt remains doing much better; no SI and future oriented. She is actively using CBT skills to help cope with and process feelings. Discussed eating disorder struggles...has been eating much better this week. Learning to straight cath... Mental Status Exam Mental Status Exam Narrative: Pt is alert and oriented; behavior is cooperative, friendly and calm, brighter and more engaged; patient is not in distress; dressed in casual attire with braided hair, glasses, adequate hygiene; mood is described as good and affect congruent, overall brighter; eye contact appropriate; Speech is normal rate, volume and prosody and not pressured; no psychomotor agitation/retardation present; thought process is organized and goal directed; Thought content is on dealing with strong feelings, overcoming SI; otherwise pertinent to relevant topics and without any delusional content, paranoid ideations or grandiosity; no SI/no HI There is no evidence of perceptual disturbance. Patients insight and judgment fair Diagnostics Vital Signs (24Hr): Vital Signs - 24 hr 07/14/24 20:00 07/15/24 08:00 07/15/24 13:17 Temperature 98 F 97.7 F Pulse Rate 87 90 89 Respiratory Rate 20 Blood Pressure 117/68 124/74 119/74 Pulse Oximetry 96 97 Oxygen Delivery Method Room Air Room Air 07/15/24 18:29 07/15/24 18:29 Temperature 97.5 F Pulse Rate 84 Respiratory Rate Blood Pressure 113/56 L 113/56 L Pulse Oximetry 98 Oxygen Delivery Method Room Air BMI result Body Mass Index 16.1 Labs 07/07/24 14:53 07/23/24 10:21 Imaging Radiology Impressions: ITS Impressions KUB X-Ray 06/03/24 19:55 IMPRESSION: Increased amount of stool in the colon suggesting constipation. Please correlate with clinical presentation. Electronically signed by: Oneida Pham MD 06/04/2024 07:31 AM EDT RP Renal Ultrasound 06/04/24 14:49 IMPRESSION: No ultrasound evidence of renal obstruction or hydronephrosis. Limited visualization of the left kidney obscured by bowel gas, exam otherwise unremarkable. Electronically signed by: Oneida Pham MD 06/05/2024 12:56 PM EDT RP Abdomen/Pelvis CT 06/04/24 18:33 IMPRESSION: Severe constipation. Otherwise unremarkable CT abdomen and pelvis. Fleischner guidelines were followed. Electronically signed by: Deyvi Collins MD 06/04/2024 07:05 PM EDT RP Ribs X-Ray 06/19/24 10:15 IMPRESSION: 1. Mild degenerative changes of the left shoulder. 2. No left-sided rib fracture. Electronically signed by: Orlando Lindsey MD 06/19/2024 10:50 AM EDT RP Shoulder X-Ray 06/19/24 10:15 IMPRESSION: 1. Mild degenerative changes of the left shoulder. 2. No left-sided rib fracture. Electronically signed by: Orlando Lindsey MD 06/19/2024 10:50 AM EDT RP Medications Medications Current Medications Acetaminophen (Acetaminophen 325 Mg Tablet) 650 mg PO Q8H [facility] Last Admin: 07/15/24 13:19 Dose: 650 mg Al Hydroxide/Mg Hydroxide (Magnesium Hydrox/Alum Hydrox 30 Ml Oral.Susp) 30 ml PO Q6H PRN PRN Reason: Heartburn/Nausea Albuterol Sulfate (Albuterol Sulfate 90 Mcg 8 Gm Inhaler) 2 puff INHALE QID PRN PRN Reason: Shortness Of Breath Last Admin: 07/08/24 09:54 Dose: 2 puff Ascorbic Acid (Ascorbic Acid 500 Mg Tablet) 1,000 mg PO DAILY [facility] Last Admin: 07/15/24 09:27 Dose: 1,000 mg Benzocaine (Throat Lozenge, Medicated Lozenge) 1 lozenge MUCOUS MEM Q2H PRN PRN Reason: Sore Throat Last Admin: 07/10/24 16:08 Dose: 1 lozenge Bethanechol Chloride (Bethanechol Chloride 25 Mg Tablet) 25 mg PO TID [facility] Last Admin: 07/15/24 15:40 Dose: 25 mg Bisacodyl (Bisacodyl 5 Mg Tablet.Dr) 10 mg PO BEDTIME [facility] Last Admin: 07/14/24 21:28 Dose: Not Given Bupropion HCl (Bupropion Hcl Xl 150 Mg Tab.Er.24h) 450 mg PO DAILY [facility] Last Admin: 07/15/24 09:27 Dose: 450 mg Cariprazine (Cariprazine Hcl 3 Mg Capsule) 6 mg PO DAILY [facility] Last Admin: 07/15/24 09:26 Dose: 6 mg Clonazepam (Clonazepam 0.5 Mg Tablet) 0.5 mg PO BID@0900,1700 [facility] Last Admin: 07/15/24 17:37 Dose: 0.5 mg Clonidine HCl (Clonidine Hcl 0.1 Mg Tablet) 0.1 mg PO BEDTIME [facility]; Protocol Last Admin: 07/14/24 21:29 Dose: 0.1 mg Clonidine HCl (Clonidine Hcl 0.1 Mg Tablet) 0.1 mg PO Q4H PRN; Protocol PRN Reason: anxiety Last Admin: 07/15/24 18:29 Dose: 0.1 mg Hydroxyzine HCl (Hydroxyzine Hcl 25 Mg Tablet) 25 mg PO Q6H PRN PRN Reason: Anxiety Last Admin: 07/09/24 02:41 Dose: 25 mg Lactulose (Lactulose 20 Gm/30 Ml Solution) 40 gm PO DAILY [facility] Last Admin: 07/15/24 09:37 Dose: Not Given Lidocaine (Lidocaine 4 % Patch Adh..Patch) 1 patch TRANSDERMA DAILY [facility]; Protocol Last Admin: 07/15/24 09:37 Dose: Not Given Lidocaine (Lidocaine 4 % Patch Adh..Patch) 2 patch TRANSDERMA DAILY [facility]; Protocol Last Admin: 07/15/24 09:36 Dose: Not Given Lidocaine HCl (Lidocaine Hcl 2 % Urojet 10 Ml Jel.Pf.Luis) 10 ml TOPICAL BID PRN PRN Reason: Pain, Severe (Pain Scale 7-10) Last Admin: 06/19/24 22:05 Dose: 10 ml [place] Carbonate ([place] Carbonate Er 300 Mg Tablet.Er) 600 mg PO BEDTIME [facility] Last Admin: 07/14/24 21:29 Dose: 600 mg Loperamide HCl (Loperamide Hcl 2 Mg Capsule) 2 mg PO Q4H PRN PRN Reason: Diarrhea Magnesium Hydroxide (Milk Of Magnesia 30 Ml Oral.Susp) 30 ml PO DAILY PRN PRN Reason: Constipation Last Admin: 06/04/24 05:22 Dose: 30 ml Multi-Ingred Cream/Lotion/Oil/Oint (Mineral Oil/Petrolatum,White 106 Gm Tube) 1 appl TOPICAL BID PRN; Protocol PRN Reason: Dry Skin Last Admin: 06/13/24 21:44 Dose: 1 appl Patient Own (Belbuca (75mcg Buccal Films)) 1 each PO BID [facility] Last Admin: 07/15/24 09:26 Dose: 1 each Ondansetron HCl (Ondansetron Odt 4 Mg Tab.Rapdis) 4 mg TRANSLINGU Q6H PRN PRN Reason: Nausea and Vomiting Last Admin: 06/18/24 16:17 Dose: 4 mg Polyethylene Glycol (Polyethylene Glycol 3350 17 Gm Powd.Pack) 17 gm PO BID [facility] Last Admin: 07/15/24 09:36 Dose: Not Given Quetiapine Fumarate (Quetiapine Fumarate 50 Mg Tablet) 150 mg PO BEDTIME [facility] Last Admin: 07/14/24 21:30 Dose: 150 mg Senna/Docusate Sodium (Sennosides/Docusate Sodium Tablet) 2 tab PO BID [facility] Last Admin: 07/15/24 09:25 Dose: 2 tab Simethicone (Simethicone 80 Mg Tab.Chew) 160 mg PO BID PRN PRN Reason: bloating/gas Last Admin: 06/07/24 11:06 Dose: 160 mg Tamsulosin HCl (Tamsulosin Hcl 0.4 Mg Capsule) 0.4 mg PO BEDTIME [facility] Last Admin: 07/14/24 21:29 Dose: 0.4 mg Tramadol HCl (Tramadol Hcl 50 Mg Tablet) 50 mg PO Q6H PRN PRN Reason: Pain, Severe (Pain Scale 7-10) Last Admin: 07/15/24 15:40 Dose: 50 mg Trimethoprim/Sulfamethoxazole (Sulfamethox/Trimeth 800/160 Tablet) 1 tab PO Q12H [facility] Last Admin: 07/15/24 08:00 Dose: 1 tab Allergies Allergies Allergy/AdvReac Type Severity Reaction Status Date / Time azithromycin Allergy Itching Verified 06/21/24 12:35 levofloxacin [From Levaquin] Allergy Nightmare Verified 06/21/24 12:35 nitrofurantoin Allergy Itching Verified 06/21/24 12:35 [From Macrodantin] Assessment & Plan Assessment & Plan (1) MDD (major depressive disorder), recurrent episode, moderate: Status: Acute Code(s): F33.1 - Major depressive disorder, recurrent, moderate (2) PTSD (post-traumatic stress disorder): Status: Acute Code(s): F43.10 - Post-traumatic stress disorder, unspecified (3) Voiding dysfunction: Status: Acute Code(s): N39.8 - Other specified disorders of urinary system Assessment and Plan: She has no urinary concerns at this time No further antibiotics for now (4) Urinary retention: Status: Acute Code(s): R33.9 - Retention of urine, unspecified (5) Jennifer-Danlos disease: Status: Acute Code(s): Q79.60 - Jennifer-Danlos syndrome, unspecified (6) Osteogenesis imperfecta: Status: Acute Code(s): Q78.0 - Osteogenesis imperfecta (7) Myofascial pain syndrome: Status: Acute Code(s): M79.18 - Myalgia, other site Plan HPI: Patient is a 39-year-old female with history of Jennifer Danlos syndrome, osteogenesis imperfecta, myofascial pain syndrome, migraines, juvenile osteoporosis, asthma, and mood disorder with history of rectocele, vaginal mesh surgery, urinary retention requiring Van catheterization, which was recently restarted. Patient?presented?to?[facility]?on?924?following?intentional?overdose?on?muscle?relaxers.??Patient?however?was?immediately?transferred?to?medical?floor?for?urinary?retention;?she?stabilized?there?and?was?discharged.?? She?presents?again?for?overdose On?gabapentin?and?trazodone,?Which?she?asserts?was?not?intentional (though later admits it was),?saying?she?just?wanted?to?sleep?and?get?relief?from?chronic?pain However?she?agrees?it?was?impulsive?and?unsafe.??Patient?currently?denies?any?SI.??She?reports?however?that?life?has?been?very?difficultff?pain?medications,?having?been?prescribed?opioids?consistently?for?the?past?24?years,? as?well?as?Ativan.??Patient?agrees?she?needs Help?stabilizing?and?coping. Relevant Medical/psych History: Patient was on opiates scheduled for 24 years to manage chronic medical comorbidities, resulting in hx of multiple fractures/falls and subsequent chronic pain. Pt denies any hx of substance abuse, including cannabis. She did screen positive for Fentanyl at first admission in October 2024 but is adamant she's never used it in her life and no quantitative labs done (leaving Fentanyl use inconclusive). Patients long-time physician of [address] Brigido Dietrich retired and new PCP tapered her off and discontinued all opioid pain management (also tapered and dc'd ativan). Patient reports she has been in constant pain and discomfort since then and has felt very frustrated and challenged to enjoy life, sometimes challenging her desire to live. Discussed?case?with?SUPERVISOR PRESS ROOM Vianey Dunaway from pain management clinic: pt seen on 05/24. SUPERVISOR PRESS ROOM Gume agrees that patients medical comorbidities and subsequent chronic pain syndrome are commonly treated with opioid pain management. She recommends either Butrans patch or preferably Belbucha films (a form of Buprenorphin and titrating it to 150mg BID). Pt is also appropriate to get other nerve blocking treatments at pain clinic who will f/u with pt. Office Helper spoke with patient's PCP Dr. Rubio at [facility] Dr. Rubio reports concurs that patient has Osteogenesis imprefecta, Ehlos Danlos Pt was on opioids for 24 years with prior PCP. With [facility] she was on Oxycodine 30mg QID and Oxycontin 30mg daily. In Sep 2023 pt was admitted to [facility] for concern for overdose. Additionally, there were other concerns including that [facility] notes referenced that patient reported being on a Fentanyl patch, which this provider had never prescribed. Additionally, there was hx of patient needing refills early and a report that her mother had used some of her medications. Also patient had significant weight loss which provider was concerned might have contributed to possible accidental overdose. Because of these concerns provider, clinic repeatedly called patient to come in and discuss pain management and reportedly reached out to her from October until January however patient did not respond or come in for appointments, having missed several. Provider reports that because of lack of communication and ongoing concern that was never addressed, Provider felt it was necessary to taper patient off pain medication which was started in January; patient was also tapered off Ativan. Provider agrees that patient does have significant medical history that is commonly treated with chronic pain medication. Office Helper discussed options with them and Dr. Rubio agrees that starting patient on a buprenorphine product is an acceptable alternative to oxycodone. Vraylar since depressed and hx of manic-esque IMPRESSION: Patient's?depression?and?SI?seem?to?have significant?situational component?as?she?is?No?longer?receiving?pain?management?for?severe,?chronic?pain. Patient?has?no?known?history?of?substance?abuse.??Although?she?did?screen?positive?for?fentanyl (on?10/27/2023 and?05/18/2024), No?quantitative?analysis?was?done. ?This?mean that?fentanyl?screen?could?very?well?be?a?false-positive?result (which is not uncommon). Medical?decision?should?not?be?based?on?only?a?positive?screen?for?fentanyl. Patient does struggle with SI and with her chronic?pain?And?poor?support?will?likely?continue?to?produce?mood?instability.??Treatment?plan?will?include?junior underwriter/team?discussion?with Outpatient?PCP?regarding?plan?for?treatment. Hospital course: 06/05: Continue current regimen and plans 06/06. Continue current plans and regimen. Loperamide was put on hold. Started on simethicone by hospitalist. No indications of GI bleeding currently. -seen by GI: C/o constipation and worsening abdominal distension. Will order CT A/P with IV/PO contrast to assess for SBO/ileus though passage of gas and small amount of stool argues against complete obstruction; however she is at risk given multiple surgeries. If no obstruction will order bowel regimen to address constipation. Continue Van, Urology following. 06/07 Patient reports that she is depressed. She apologized for not being more forthcoming earlier on in says it took her awhile to admitted to herself but she does not want to be in this world anymore... And has a plan to jump in front of a train on discharge. Patient also reports that overdose on trazodone/gabapentin was actually an intentional suicide attempt. She reports a constant deluge of self-deprecating thoughts which include that she is worthless, discussed in, and fat. Office Helper reviewed patient's history of anorexia and patient reports she sees herself as fat every day and eats very little (history of anorexia since 14 years old; was at brought up oral for a month with a feeding tube; she understands that this is a significant cause of her chronic constipation). Despite her SI, patient does want help getting better agrees to try antidepressant medication; junior underwriter reviewed options and risks/side effects and patient with Vraylar. Also discussed pain medication management and patient agrees with Belbuca which she has heard of; she also agrees to non opioid pain management and will follow-up with pain management Clinic here at [place]. Discussed relationship with her mother and she does not SA think her mother struggles with drug addiction but has caught her trying to get into her room, which patient keeps locked, looking for her medications which she has taken in the past. Patient said she reported this to her PCP. Patient does have history of being prescribed fentanyl patch however she did not like them and weaned herself off of them; set had some left over 06/08 Patient remains depressed with suicidal thinking however is trying to be hopeful and has tolerated Vraylar and says will continue, with increased dose; grateful for help getting Belbuca through prior authorization. -Discussed case with urology who recommends remaining with indwelling Van since failed voiding attempt on 06/03; will continue to follow -pt reported and nurse corroborated that Van bag containing urine was blood-tinged; discussed with Urologist, deemed likely micro trauma, and to keep van in place; recently failed voiding trial on 06/03 06/09 Patient reports she remains depressed, with SI. Patient also reports she had a very difficult time sleeping last night feeling very upset following a conversation she had on the phone with her mother. Patient expressed to her mother she is feeling hurt that her mom has not visited or called throughout her admission, even on patient's birthday; she says her mom was on apologetic. Patient also challenged her mom regarding her mom's past comment that patient could burn in hell with her father (who 2 years ago); mom remained unapologetic. Patient tells junior underwriter she has no idea why her mom said this other than that her mom is crazy... Subsequently patient reports that throughout the night, she had racing thoughts and no sleep. Discussed medications and patient and pt is eager to try Belbuca Films for pain management, available today dc'd gabapentin; pt said has never helped for pain or anxiety Adding clonidine at bedtime to help w/ sleep, anxiety 06/10 patient reports that Belbuca is helping with pain Patient remains very depressed and continues to have suicidal thoughts, saying she wants to end her life when she leaves the hospital. Patient Says I do not understand myself.. And laments she is gone most of her life without any suicidal ideation and only started this past September. Patient shared about some other reasons that it might be occurring and agrees that she still mourning the loss of her father who was her confidante; dealing with chronic pain having been off pain medications for several months and the ongoing struggles in her relationship with her mother and brother whom she feels are bullying; trying to come to terms with the fact that her mother simply isn't going to be the kind of mother she wishes she had. Patient agrees to medication management. 06/13 still very depressed with SI. Sleeping better however which is helpful and pain medications are also helpful. Patient agrees to increasing Vraylar; agrees to behavioral activation and attending groups. Despite ongoing thoughts about self-harm and ending her life when she is discharge, patient is also future oriented and says she would like to find a new place to live separate from her mother and brother. Asks for help going about that. 06/14 pt remains depressed, positive for SI with a plan but also future oriented talking about changing her living situation. Pt is engaged in treatment, trying to process her suicidal feelings and trying to be hopeful it will resolve. Agrees to adding Wellbutrin. -will likely add Wellbutrin; however, will probably keep Vraylar (maybe at lower dose) since pt has hx of manic-esque episodes (thought not formally diagnosed with bipolar as episode had several contributory factors) 06/15 remains depressed but processing feelings, doing worksheets, talking about her mother. Pt very anxious. -may increase wellbutrin for depression -considered starting Clonazepam 0.5mg BID; pt used to be on as much as 5mg of ativan daily; was weened off so hesitant to restart benzo's; 06/17 increase Wellbutrin 06/20 Over the weekend, patient assessed for infection, starting antibiotic; concerned that indwelling Van catheter is not sustainable; urology consulted and plan was for suprapubic catheter insertion for today. Patient however did not get fully informed of this and was upset to learn that a procedure was planned. She was however able to discuss this at length with junior underwriter and urology team and agreed to proceed. 06/21 Dr. Niño decided better to do a cystoscopy 1st and then decide whether not suprapubic catheter verse bladder stimulator; patient consents Seen by infectious disease: She has no urinary concerns at this time..No further antibiotics for now 06/22 Patient discussed conversation she had with her brother that was reassuring. Patient felt understood by him and supported which has lifted her mood. She feels that although she still depressed perhaps some of the depression is lifting and she starting to feel that there is hope of change in her situation. Patient remains very anxious. Earlier she had said she did not want to get back on benzodiazepines, having been on Ativan 5 mg for decades, weaned off only about a year ago. However given patient's struggles with anxiety and the fact that benzos have helped her in the past, discussed restarting a benzodiazepine, this time clonazepam 0.5 mg b.i.d.; junior underwriter discussed at length risks for addiction and the constant desire to have more. Patient said she very much does not want that to happen and feels that she will be able to minimize her use 06/23 Depressed, with intermittent SI. very anxious and with despairing thoughts has upcoming anniversary of her father's which is this July 03; will try to make it remembrance day and change the perspective. -Feeling better about catheter and plan; junior underwriter discussed with urology who met with patient and plan is for July 05 to move forward with stimulator -patient attending groups and engaged in treatment 06/24 a little better; mood up and down and still intermittent SI but patient is working on being hopeful employee numerous coping skills. Agrees to increase Wellbutrin 06/25 Patient continues to report depressed mood; told nurse that she remains purging daily and still plans to attempt suicide when she leaves. However on the unit, she seems more relaxed. Patient shared with junior underwriter her plan to remember her father on the anniversary of his . 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 Currently she is eating enough. As this is a chronic problem that that has gone on for over 20 years, and with which patient has been able to cope with on her own, without needing hospitalizations or [facility] admissions since teenage years, junior underwriter does not expect that it will resolve during this inpatient stay and does not believe that it needs to. 06/27 very tearful sad; suicidal; pushing self to be around others, groups -talked about eating struggles, purging; trying not to 06/28 do not think that medication management will change patients depression at this time. Rather she needs continued time to process her feelings of despair, grief about her fathers , hx of trauma, feeling her future is bleak. -junior underwriter engaged in psychodynamic psychotherapy 06/29 same presentation; junior underwriter engaged in psychodynamic psychotherapy 06/30: feels clonidine and klonopin helpful for anxiety. asking for pain med change; deferred for return of attending, does not appear in pain. Q5s for SI/van. full time staff interpreter feel pt is not substantially worse than her recent inpatient baseline, but perhaps looking a bit better today than yesterday. 07/01: appears behaving as per usual for inpatient context. increase seroquel to 150 QHS for insomnia and appetite stimulation. continue current mgmt otherwise. 07/02: Continues depressed with suicidal thoughts. Says she wants to starve self. VSS. Check metabolic panel. 07/04 Patient continues to lament her past and anger and frustration with specific relationships. Says still feels hopeless can not stop thinking about ending her life. Discussed more about taking responsibility for feelings and while anger and frustration at others can be appropriate, it is also necessary to work on coping with such feelings. Patient said she will continue to try. Discussed history and patient has not really had SI till this October and discussed how these feelings will also pass... Discussed medication management and patient agreed to trial of lithium for continued depression and chronic SI. and increasing Vraylar -patient considers ending her life by starving herself though she has been eating on the unit. -discussed surgical implantation of bladder stimulator tomorrow 07/05 received?bladder?stimulator;?remains?with?indwelling?catheter?which?will?be?removed?tomorrow?or?the?following?day. -increased?Vraylar?to?6?mg 07/06 continue?with?treatment?plan;??Aba Good?helping?with?implanted?bladder?stim 07/07 adjusting to new device, bladder scan; discussed?how?history?of?trauma?left?patient?needing?to?a?certain?sense?of?control Over?her?life?in?body?which?likely?plays?a?part?into?developing?anorexia,?SI...??This?idea?resonate?with?patient? who?agreed?that?she?is?overly?focused?on?blaming?others?and?giving?to?little?attention?to?how?to?work?on Her?own?personal?issues. 07/08?continue?current?treatment?plan?except?will?increase?lithium?to?help?with?depression Patient?continues?to?make?statements?that?she?is?thinking?of?ending?her?life.??In?the?same?conversation?however?she?will?also?discuss Her?efforts?to?move?out?of?her?mother's?house?and?get?her?own?place?to?live;?she?talks?about?being?able?to?bear?living?there?while She?makes?plans?to?move?out.? 07/10: Continue current regimen and plans for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
[2024-07-15] MEDS: Lithium Carbonate ER 300 MG TABLET.ER 600 MG PO (20:09)
[2024-07-15] MEDS: Tamsulosin HCL 0.4 MG CAPSULE PO (20:09)
[2024-07-15] MEDS: QUEtiapine Fumarate 50 MG TABLET 150 MG PO (20:09)
[2024-07-15 20:11] VITALS: BP 126/70
[2024-07-16] MEDS: traMADoL HCL 50 MG TABLET PO ×3 (03:14→17:24)
[2024-07-16] MEDS: Acetaminophen 325 MG TABLET 650 MG PO ×2 (07:25→22:05)
[2024-07-16 08:00] VITALS: BP 106/62; PULSE 75; RESP 18; TEMP 36.5; O2SAT 94
[2024-07-16] MEDS: buPROPion HCl XL 150 MG TAB.ER.24H 450 MG PO (08:26)
[2024-07-16] MEDS: Ascorbic Acid 500 MG TABLET 1000 MG PO (08:27)
[2024-07-16] MEDS: Bethanechol Chloride 25 MG TABLET PO ×3 (08:27→22:05)
[2024-07-16] MEDS: clonazePAM 0.5 MG TABLET PO ×2 (08:28→17:21)
[2024-07-16] MEDS: Cariprazine HCl 3 MG CAPSULE 6 MG PO (08:28)
[2024-07-16] MEDS: BUPRENORPHINE 75 MCG 1 EACH PO ×2 (10:18→22:11)
--- NOTE | 2024-07-16 10:26 | HO.PSYCHPN ---
Subjective Subjective Date of Service: 07/16/24 Reason For Visit: SI Subjective Notes: Conditional Voluntary Healthcare Proxy: No Guardianship: No Medical Problems Affecting Mental Status: Yes (several recent surgeries- having pain from incision) Interim History: 39 yo with s/p bladder stimulator lying in bed passively- co feeling tired and having a migraine, reviewed prior med trials for migraine and hx fiorcet working - tramadol didn't help (pt on belbuka which may block response to this) also did not respond tylenol- ON belbuka for chronic pain managment- co pain from recent surgery- at site- though no sepage through bandage- pt not focused on mental health issues today-due to migraine Medication Compliance: Yes Side effects from medications: No Attending Groups: No Review of Systems Acute medical concerns: Yes recent surgery and ongoing catheterization for urinary retention Medical Review of Systems: changed Review of Systems: migraine Mental Status Exam Mental Status Exam Patient Appearance: Fatigued and Unkempt Patient Orientation: Person, Place, Time and Situation Level of Consciousness: Awake Patient Behavior: Appropriate, Cooperative, Passive and Good Eye Contact Behavior Comments: somatic focus Mood Description: Calm Affect Description: Blunted Patient Cognition Impaired: No Ability to Follow Directions: Fair Speech Pattern: Clear Hallucinations: None Delusions: Not Present Thought Process: Intact Thought Content: positive for Goal Oriented, positive for Preoccupation (on somatic issues) and positive for Suicidal Ideation (chronic no current plan) Depressive Symptoms: Muscle Tension, Unexplained Headaches and Back Pain Judgement: Fair Diagnostics Vital Signs (24Hr): Vital Signs - 24 hr 07/15/24 13:17 07/15/24 18:29 07/15/24 18:29 Temperature 97.5 F Pulse Rate 89 84 Respiratory Rate Blood Pressure 119/74 113/56 L 113/56 L Pulse Oximetry 98 Oxygen Delivery Method Room Air 07/15/24 20:11 07/16/24 08:00 Temperature 97.7 F Pulse Rate 75 Respiratory Rate 18 Blood Pressure 126/70 106/62 Pulse Oximetry 94 Oxygen Delivery Method Room Air BMI result Body Mass Index 16.1 Labs 07/07/24 14:53 07/07/24 14:53 Imaging Radiology Impressions: ITS Impressions KUB X-Ray 06/03/24 19:55 IMPRESSION: Increased amount of stool in the colon suggesting constipation. Please correlate with clinical presentation. Electronically signed by: Oneida Pham MD 06/04/2024 07:31 AM EDT RP Renal Ultrasound 06/04/24 14:49 IMPRESSION: No ultrasound evidence of renal obstruction or hydronephrosis. Limited visualization of the left kidney obscured by bowel gas, exam otherwise unremarkable. Electronically signed by: Oneida Pham MD 06/05/2024 12:56 PM EDT RP Abdomen/Pelvis CT 06/04/24 18:33 IMPRESSION: Severe constipation. Otherwise unremarkable CT abdomen and pelvis. Fleischner guidelines were followed. Electronically signed by: Deyvi Collins MD 06/04/2024 07:05 PM EDT RP Ribs X-Ray 06/19/24 10:15 IMPRESSION: 1. Mild degenerative changes of the left shoulder. 2. No left-sided rib fracture. Electronically signed by: Orlando Lindsey MD 06/19/2024 10:50 AM EDT RP Shoulder X-Ray 06/19/24 10:15 IMPRESSION: 1. Mild degenerative changes of the left shoulder. 2. No left-sided rib fracture. Electronically signed by: Orlando Lindsey MD 06/19/2024 10:50 AM EDT RP Medications Medications Current Medications Acetaminophen (Acetaminophen 325 Mg Tablet) 650 mg PO Q8H [facility] Last Admin: 07/16/24 07:25 Dose: 650 mg Al Hydroxide/Mg Hydroxide (Magnesium Hydrox/Alum Hydrox 30 Ml Oral.Susp) 30 ml PO Q6H PRN PRN Reason: Heartburn/Nausea Albuterol Sulfate (Albuterol Sulfate 90 Mcg 8 Gm Inhaler) 2 puff INHALE QID PRN PRN Reason: Shortness Of Breath Last Admin: 07/08/24 09:54 Dose: 2 puff Ascorbic Acid (Ascorbic Acid 500 Mg Tablet) 1,000 mg PO DAILY [facility] Last Admin: 07/16/24 08:27 Dose: 1,000 mg Benzocaine (Throat Lozenge, Medicated Lozenge) 1 lozenge MUCOUS MEM Q2H PRN PRN Reason: Sore Throat Last Admin: 07/10/24 16:08 Dose: 1 lozenge Bethanechol Chloride (Bethanechol Chloride 25 Mg Tablet) 25 mg PO TID [facility] Last Admin: 07/16/24 08:27 Dose: 25 mg Bisacodyl (Bisacodyl 5 Mg Tablet.Dr) 10 mg PO BEDTIME [facility] Last Admin: 07/15/24 20:13 Dose: Not Given Bupropion HCl (Bupropion Hcl Xl 150 Mg Tab.Er.24h) 450 mg PO DAILY [facility] Last Admin: 07/16/24 08:26 Dose: 450 mg Cariprazine (Cariprazine Hcl 3 Mg Capsule) 6 mg PO DAILY [facility] Last Admin: 07/16/24 08:28 Dose: 6 mg Clonazepam (Clonazepam 0.5 Mg Tablet) 0.5 mg PO BID@0900,1700 [facility] Last Admin: 07/16/24 08:28 Dose: 0.5 mg Clonidine HCl (Clonidine Hcl 0.1 Mg Tablet) 0.1 mg PO BEDTIME [facility]; Protocol Last Admin: 07/15/24 20:11 Dose: 0.1 mg Clonidine HCl (Clonidine Hcl 0.1 Mg Tablet) 0.1 mg PO Q4H PRN; Protocol PRN Reason: anxiety Last Admin: 07/15/24 18:29 Dose: 0.1 mg Hydroxyzine HCl (Hydroxyzine Hcl 25 Mg Tablet) 25 mg PO Q6H PRN PRN Reason: Anxiety Last Admin: 07/09/24 02:41 Dose: 25 mg Lactulose (Lactulose 20 Gm/30 Ml Solution) 40 gm PO DAILY [facility] Last Admin: 07/16/24 08:29 Dose: Not Given Lidocaine (Lidocaine 4 % Patch Adh..Patch) 1 patch TRANSDERMA DAILY [facility]; Protocol Last Admin: 07/16/24 08:29 Dose: Not Given Lidocaine (Lidocaine 4 % Patch Adh..Patch) 2 patch TRANSDERMA DAILY [facility]; Protocol Last Admin: 07/16/24 08:29 Dose: Not Given Lidocaine HCl (Lidocaine Hcl 2 % Urojet 10 Ml Jel.Pf.Luis) 10 ml TOPICAL BID PRN PRN Reason: Pain, Severe (Pain Scale 7-10) Last Admin: 06/19/24 22:05 Dose: 10 ml [place] Carbonate ([place] Carbonate Er 300 Mg Tablet.Er) 600 mg PO BEDTIME [facility] Last Admin: 07/15/24 20:09 Dose: 600 mg Loperamide HCl (Loperamide Hcl 2 Mg Capsule) 2 mg PO Q4H PRN PRN Reason: Diarrhea Magnesium Hydroxide (Milk Of Magnesia 30 Ml Oral.Susp) 30 ml PO DAILY PRN PRN Reason: Constipation Last Admin: 06/04/24 05:22 Dose: 30 ml Multi-Ingred Cream/Lotion/Oil/Oint (Mineral Oil/Petrolatum,White 106 Gm Tube) 1 appl TOPICAL BID PRN; Protocol PRN Reason: Dry Skin Last Admin: 06/13/24 21:44 Dose: 1 appl Patient Own (Belbuca (75mcg Buccal Films)) 1 each PO BID [facility] Last Admin: 07/16/24 10:18 Dose: 1 each Ondansetron HCl (Ondansetron Odt 4 Mg Tab.Rapdis) 4 mg TRANSLINGU Q6H PRN PRN Reason: Nausea and Vomiting Last Admin: 06/18/24 16:17 Dose: 4 mg Polyethylene Glycol (Polyethylene Glycol 3350 17 Gm Powd.Pack) 17 gm PO BID [facility] Last Admin: 07/16/24 08:29 Dose: Not Given Quetiapine Fumarate (Quetiapine Fumarate 50 Mg Tablet) 150 mg PO BEDTIME [facility] Last Admin: 07/15/24 20:09 Dose: 150 mg Senna/Docusate Sodium (Sennosides/Docusate Sodium Tablet) 2 tab PO BID [facility] Last Admin: 07/16/24 08:30 Dose: Not Given Simethicone (Simethicone 80 Mg Tab.Chew) 160 mg PO BID PRN PRN Reason: bloating/gas Last Admin: 06/07/24 11:06 Dose: 160 mg Tamsulosin HCl (Tamsulosin Hcl 0.4 Mg Capsule) 0.4 mg PO BEDTIME [facility] Last Admin: 07/15/24 20:09 Dose: 0.4 mg Tramadol HCl (Tramadol Hcl 50 Mg Tablet) 50 mg PO Q6H PRN PRN Reason: Pain, Severe (Pain Scale 7-10) Last Admin: 07/16/24 10:21 Dose: 50 mg Allergies Allergies Allergy/AdvReac Type Severity Reaction Status Date / Time azithromycin Allergy Itching Verified 06/21/24 12:35 levofloxacin [From Levaquin] Allergy Nightmare Verified 06/21/24 12:35 nitrofurantoin Allergy Itching Verified 06/21/24 12:35 [From Macrodantin] Assessment & Plan Assessment & Plan (1) MDD (major depressive disorder), recurrent episode, moderate: Status: Acute Code(s): F33.1 - Major depressive disorder, recurrent, moderate (2) PTSD (post-traumatic stress disorder): Status: Acute Code(s): F43.10 - Post-traumatic stress disorder, unspecified (3) Voiding dysfunction: Status: Acute Code(s): N39.8 - Other specified disorders of urinary system Assessment and Plan: She has no urinary concerns at this time No further antibiotics for now (4) Urinary retention: Status: Acute Code(s): R33.9 - Retention of urine, unspecified (5) Jennifer-Danlos disease: Status: Acute Code(s): Q79.60 - Jennifer-Danlos syndrome, unspecified (6) Osteogenesis imperfecta: Status: Acute Code(s): Q78.0 - Osteogenesis imperfecta (7) Myofascial pain syndrome: Status: Acute Code(s): M79.18 - Myalgia, other site Plan HPI: Patient is a 39-year-old female with history of Jennifer Danlos syndrome, osteogenesis imperfecta, myofascial pain syndrome, migraines, juvenile osteoporosis, asthma, and mood disorder with history of rectocele, vaginal mesh surgery, urinary retention requiring Van catheterization, which was recently restarted. Patient?presented?to?[facility]?on?924?following?intentional?overdose?on?muscle?relaxers.??Patient?however?was?immediately?transferred?to?medical?floor?for?urinary?retention;?she?stabilized?there?and?was?discharged.?? She?presents?again?for?overdose On?gabapentin?and?trazodone,?Which?she?asserts?was?not?intentional (though later admits it was),?saying?she?just?wanted?to?sleep?and?get?relief?from?chronic?pain However?she?agrees?it?was?impulsive?and?unsafe.??Patient?currently?denies?any?SI.??She?reports?however?that?life?has?been?very?difficultff?pain?medications,?having?been?prescribed?opioids?consistently?for?the?past?24?years,? as?well?as?Ativan.??Patient?agrees?she?needs Help?stabilizing?and?coping. Relevant Medical/psych History: Patient was on opiates scheduled for 24 years to manage chronic medical comorbidities, resulting in hx of multiple fractures/falls and subsequent chronic pain. Pt denies any hx of substance abuse, including cannabis. She did screen positive for Fentanyl at first admission in October 2024 but is adamant she's never used it in her life and no quantitative labs done (leaving Fentanyl use inconclusive). Patients long-time physician of [address] Brigido Dietrich retired and new PCP tapered her off and discontinued all opioid pain management (also tapered and dc'd ativan). Patient reports she has been in constant pain and discomfort since then and has felt very frustrated and challenged to enjoy life, sometimes challenging her desire to live. Discussed?case?with?AUTOMOBILE MECHANIC HELPER Vianey Dunaway from pain management clinic: pt seen on 05/24. AUTOMOBILE MECHANIC HELPER Gume agrees that patients medical comorbidities and subsequent chronic pain syndrome are commonly treated with opioid pain management. She recommends either Butrans patch or preferably Belbucha films (a form of Buprenorphin and titrating it to 150mg BID). Pt is also appropriate to get other nerve blocking treatments at pain clinic who will f/u with pt. Sewing Machine Repairer spoke with patient's PCP Dr. Rubio at [facility] Dr. Rubio reports concurs that patient has Osteogenesis imprefecta, Ehlos Danlos Pt was on opioids for 24 years with prior PCP. With [facility] she was on Oxycodine 30mg QID and Oxycontin 30mg daily. In Sep 2023 pt was admitted to [facility] for concern for overdose. Additionally, there were other concerns including that [facility] notes referenced that patient reported being on a Fentanyl patch, which this provider had never prescribed. Additionally, there was hx of patient needing refills early and a report that her mother had used some of her medications. Also patient had significant weight loss which provider was concerned might have contributed to possible accidental overdose. Because of these concerns provider, clinic repeatedly called patient to come in and discuss pain management and reportedly reached out to her from October until January however patient did not respond or come in for appointments, having missed several. Provider reports that because of lack of communication and ongoing concern that was never addressed, Provider felt it was necessary to taper patient off pain medication which was started in January; patient was also tapered off Ativan. Provider agrees that patient does have significant medical history that is commonly treated with chronic pain medication. Sewing Machine Repairer discussed options with them and Dr. Rubio agrees that starting patient on a buprenorphine product is an acceptable alternative to oxycodone. Vraylar since depressed and hx of manic-esque IMPRESSION: Patient's?depression?and?SI?seem?to?have significant?situational component?as?she?is?No?longer?receiving?pain?management?for?severe,?chronic?pain. Patient?has?no?known?history?of?substance?abuse.??Although?she?did?screen?positive?for?fentanyl (on?10/27/2023 and?05/18/2024), No?quantitative?analysis?was?done. ?This?mean that?fentanyl?screen?could?very?well?be?a?false-positive?result (which is not uncommon). Medical?decision?should?not?be?based?on?only?a?positive?screen?for?fentanyl. Patient does struggle with SI and with her chronic?pain?And?poor?support?will?likely?continue?to?produce?mood?instability.??Treatment?plan?will?include?proposal writer/team?discussion?with Outpatient?PCP?regarding?plan?for?treatment. Hospital course: 06/05: Continue current regimen and plans 06/06. Continue current plans and regimen. Loperamide was put on hold. Started on simethicone by hospitalist. No indications of GI bleeding currently. -seen by GI: C/o constipation and worsening abdominal distension. Will order CT A/P with IV/PO contrast to assess for SBO/ileus though passage of gas and small amount of stool argues against complete obstruction; however she is at risk given multiple surgeries. If no obstruction will order bowel regimen to address constipation. Continue Opal, Urology following. 06/07 Patient reports that she is depressed. She apologized for not being more forthcoming earlier on in says it took her awhile to admitted to herself but she does not want to be in this world anymore... And has a plan to jump in front of a train on discharge. Patient also reports that overdose on trazodone/gabapentin was actually an intentional suicide attempt. She reports a constant deluge of self-deprecating thoughts which include that she is worthless, discussed in, and fat. 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 Despite her SI, patient does want help getting better agrees to try antidepressant medication; proposal writer reviewed options and risks/side effects and patient with Vraylar. Also discussed pain medication management and patient agrees with Belbuca which she has heard of; she also agrees to non opioid pain management and will follow-up with pain management Clinic here at [facility]. Discussed relationship with her mother and she does not SA think her mother struggles with drug addiction but has caught her trying to get into her room, which patient keeps locked, looking for her medications which she has taken in the past. Patient said she reported this to her PCP. Patient does have history of being prescribed fentanyl patch however she did not like them and weaned herself off of them; set had some left over 06/08 Patient remains depressed with suicidal thinking however is trying to be hopeful and has tolerated Vraylar and says will continue, with increased dose; grateful for help getting Belbuca through prior authorization. -Discussed case with urology who recommends remaining with indwelling Van since failed voiding attempt on 06/03; will continue to follow -pt reported and nurse corroborated that Van bag containing urine was blood-tinged; discussed with Urologist, deemed likely micro trauma, and to keep van in place; recently failed voiding trial on 06/03 06/09 Patient reports she remains depressed, with SI. Patient also reports she had a very difficult time sleeping last night feeling very upset following a conversation she had on the phone with her mother. Patient expressed to her mother she is feeling hurt that her mom has not visited or called throughout her admission, even on patient's birthday; she says her mom was on apologetic. Patient also challenged her mom regarding her mom's past comment that patient could burn in hell with her father (who 2 years ago); mom remained unapologetic. Patient tells proposal writer she has no idea why her mom said this other than that her mom is crazy... Subsequently patient reports that throughout the night, she had racing thoughts and no sleep. Discussed medications and patient and pt is eager to try Belbuca Films for pain management, available today dc'd gabapentin; pt said has never helped for pain or anxiety Adding clonidine at bedtime to help w/ sleep, anxiety 06/10 patient reports that Belbuca is helping with pain Patient remains very depressed and continues to have suicidal thoughts, saying she wants to end her life when she leaves the hospital. Patient Says I do not understand myself.. And laments she is gone most of her life without any suicidal ideation and only started this past September. Patient shared about some other reasons that it might be occurring and agrees that she still mourning the loss of her father who was her confidante; dealing with chronic pain having been off pain medications for several months and the ongoing struggles in her relationship with her mother and brother whom she feels are bullying; trying to come to terms with the fact that her mother simply isn't going to be the kind of mother she wishes she had. Patient agrees to medication management. 06/13 still very depressed with SI. Sleeping better however which is helpful and pain medications are also helpful. Patient agrees to increasing Vraylar; agrees to behavioral activation and attending groups. Despite ongoing thoughts about self-harm and ending her life when she is discharge, patient is also future oriented and says she would like to find a new place to live separate from her mother and brother. Asks for help going about that. 06/14 pt remains depressed, positive for SI with a plan but also future oriented talking about changing her living situation. Pt is engaged in treatment, trying to process her suicidal feelings and trying to be hopeful it will resolve. Agrees to adding Wellbutrin. -will likely add Wellbutrin; however, will probably keep Vraylar (maybe at lower dose) since pt has hx of manic-esque episodes (thought not formally diagnosed with bipolar as episode had several contributory factors) 06/15 remains depressed but processing feelings, doing worksheets, talking about her mother. Pt very anxious. -may increase wellbutrin for depression -considered starting Clonazepam 0.5mg BID; pt used to be on as much as 5mg of ativan daily; was weened off so hesitant to restart benzo's; 06/17 increase Wellbutrin 06/20 Over the weekend, patient assessed for infection, starting antibiotic; concerned that indwelling Van catheter is not sustainable; urology consulted and plan was for suprapubic catheter insertion for today. Patient however did not get fully informed of this and was upset to learn that a procedure was planned. She was however able to discuss this at length with proposal writer and urology team and agreed to proceed. 06/21 Dr. Niño decided better to do a cystoscopy 1st and then decide whether not suprapubic catheter verse bladder stimulator; patient consents Seen by infectious disease: She has no urinary concerns at this time..No further antibiotics for now 06/22 Patient discussed conversation she had with her brother that was reassuring. Patient felt understood by him and supported which has lifted her mood. She feels that although she still depressed perhaps some of the depression is lifting and she starting to feel that there is hope of change in her situation. Patient remains very anxious. Earlier she had said she did not want to get back on benzodiazepines, having been on Ativan 5 mg for decades, weaned off only about a year ago. However given patient's struggles with anxiety and the fact that benzos have helped her in the past, discussed restarting a benzodiazepine, this time clonazepam 0.5 mg b.i.d.; proposal writer discussed at length risks for addiction and the constant desire to have more. Patient said she very much does not want that to happen and feels that she will be able to minimize her use 06/23 Depressed, with intermittent SI. very anxious and with despairing thoughts has upcoming anniversary of her father's which is this July 03; will try to make it remembrance day and change the perspective. -Feeling better about catheter and plan; proposal writer discussed with urology who met with patient and plan is for July 05 to move forward with stimulator -patient attending groups and engaged in treatment 06/24 a little better; mood up and down and still intermittent SI but patient is working on being hopeful employee numerous coping skills. Agrees to increase Wellbutrin 06/25 Patient continues to report depressed mood; told nurse that she remains purging daily and still plans to attempt suicide when she leaves. However on the unit, she seems more relaxed. Patient shared with proposal writer her plan to remember her father on the anniversary of his . 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 Currently she is eating enough. As this is a chronic problem that that has gone on for over 20 years, and with which patient has been able to cope with on her own, without needing hospitalizations or [facility] admissions since teenage years, proposal writer does not expect that it will resolve during this inpatient stay and does not believe that it needs to. 06/27 very tearful sad; suicidal; pushing self to be around others, groups -talked about eating struggles, purging; trying not to 06/28 do not think that medication management will change patients depression at this time. Rather she needs continued time to process her feelings of despair, grief about her fathers , hx of trauma, feeling her future is bleak. -proposal writer engaged in psychodynamic psychotherapy 06/29 same presentation; proposal writer engaged in psychodynamic psychotherapy 06/30: feels clonidine and klonopin helpful for anxiety. asking for pain med change; deferred for return of attending, does not appear in pain. Q5s for SI/van. greenhouse staff feel pt is not substantially worse than her recent inpatient baseline, but perhaps looking a bit better today than yesterday. 07/01: appears behaving as per usual for inpatient context. increase seroquel to 150 QHS for insomnia and appetite stimulation. continue current mgmt otherwise. 07/02: Continues depressed with suicidal thoughts. Says she wants to starve self. VSS. Check metabolic panel. 07/04 Patient continues to lament her past and anger and frustration with specific relationships. Says still feels hopeless can not stop thinking about ending her life. Discussed more about taking responsibility for feelings and while anger and frustration at others can be appropriate, it is also necessary to work on coping with such feelings. Patient said she will continue to try. Discussed history and patient has not really had SI till this October and discussed how these feelings will also pass... Discussed medication management and patient agreed to trial of lithium for continued depression and chronic SI. and increasing Vraylar -patient considers ending her life by starving herself though she has been eating on the unit. -discussed surgical implantation of bladder stimulator tomorrow 07/05 received?bladder?stimulator;?remains?with?indwelling?catheter?which?will?be?removed?tomorrow?or?the?following?day. -increased?Vraylar?to?6?mg 07/06 continue?with?treatment?plan;??Aba Good?helping?with?implanted?bladder?stim 07/07 adjusting to new device, bladder scan; discussed?how?history?of?trauma?left?patient?needing?to?a?certain?sense?of?control Over?her?life?in?body?which?likely?plays?a?part?into?developing?anorexia,?SI...??This?idea?resonate?with?patient? who?agreed?that?she?is?overly?focused?on?blaming?others?and?giving?to?little?attention?to?how?to?work?on Her?own?personal?issues.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
[2024-07-16] MEDS: Ondansetron ODT 4 MG TAB.RAPDIS TRANSLINGU (11:20)
[2024-07-16] MEDS: Butalb/Acetamin/Caff 50/325/40 TABLET 1 TAB PO (11:20)
[2024-07-16 14:22] VITALS: BP 104/75
[2024-07-16] MEDS: cloNIDine HCL 0.1 MG TABLET PO ×2 (14:22→22:06)
[2024-07-16 20:00] VITALS: BP 106/63; PULSE 82; TEMP 36.7; O2SAT 99
[2024-07-16] MEDS: Lithium Carbonate ER 300 MG TABLET.ER 600 MG PO (22:04)
[2024-07-16] MEDS: QUEtiapine Fumarate 50 MG TABLET 150 MG PO (22:05)
[2024-07-16] MEDS: Sennosides/Docusate Sodium TABLET 2 TAB PO (22:06)
[2024-07-16] MEDS: Tamsulosin HCL 0.4 MG CAPSULE PO (22:07)
[2024-07-17] MEDS: Acetaminophen 325 MG TABLET 650 MG PO (07:48)
[2024-07-17] MEDS: traMADoL HCL 50 MG TABLET PO ×3 (07:49→22:09)
[2024-07-17 08:00] VITALS: BP 91/53; PULSE 69; RESP 18; TEMP 36.3; O2SAT 99
[2024-07-17] MEDS: buPROPion HCl XL 150 MG TAB.ER.24H 450 MG PO (08:35)
[2024-07-17] MEDS: Bethanechol Chloride 25 MG TABLET PO ×3 (08:35→22:10)
[2024-07-17] MEDS: Cariprazine HCl 3 MG CAPSULE 6 MG PO (08:35)
[2024-07-17] MEDS: clonazePAM 0.5 MG TABLET PO ×2 (08:35→15:59)
[2024-07-17] MEDS: Ascorbic Acid 500 MG TABLET 1000 MG PO (08:36)
[2024-07-17] MEDS: Ondansetron ODT 4 MG TAB.RAPDIS TRANSLINGU (08:37)
--- NOTE | 2024-07-17 10:30 | HO.PSYCHPN ---
Subjective Subjective Date of Service: 07/17/24 Reason For Visit: SI Subjective Notes: Conditional Voluntary Healthcare Proxy: No Guardianship: No Medical Problems Affecting Mental Status: Yes Interim History: 39 yo reports migraine better with fiorcet again= got period today for first time in 2 years- had been 80 lb now up to 90lb- hx anorexia nervosa- does believe she is fat- but menstruation recommencing feels like explanation to pt for migraine yesterday and today - pt reports hx of non response to imitrex and provider checked with pharmacy we have no cgrps on formulary at hospital - so was again given fiorcet x1- (no medical reviewer mention for fiorcet when patient's name and looked up there) Pt does report feeling psych medications are working and she is feeling better than she has (likely also 10lb wt gain has helped though pt unlikely to acknowledge this) Sleep ok, low energy , less thoughts of si, less depressed- Medication Compliance: Yes Side effects from medications: No Attending Groups: Intermittent Mental Status Exam Mental Status Exam Narrative: saw patient out of bed, looks brighter Patient Appearance: Well Grooomed and Appropriate Patient Orientation: Person, Place, Time and Situation Level of Consciousness: Awake Patient Behavior: Appropriate and Cooperative Affect Description: Calm Patient Cognition Impaired: No Ability to Follow Directions: Fair Speech Pattern: Clear Hallucinations: None Delusions: Not Present Thought Process: Intact and Goal Oriented Thought Content: positive for Suicidal Ideation (decreased) Depressive Symptoms: Back Pain Judgement: Fair Diagnostics Vital Signs (24Hr): Vital Signs - 24 hr 07/16/24 14:22 07/16/24 20:00 07/17/24 08:00 Temperature 98.1 F 97.3 F Pulse Rate 82 69 Respiratory Rate 18 Blood Pressure 104/75 106/63 91/53 L Pulse Oximetry 99 99 Oxygen Delivery Method Room Air Room Air BMI result Body Mass Index 16.1 Labs 07/07/24 14:53 07/07/24 14:53 Imaging Radiology Impressions: ITS Impressions KUB X-Ray 06/03/24 19:55 IMPRESSION: Increased amount of stool in the colon suggesting constipation. Please correlate with clinical presentation. Electronically signed by: Oneida Pham MD 06/04/2024 07:31 AM EDT Renal Ultrasound 06/04/24 14:49 IMPRESSION: No ultrasound evidence of renal obstruction or hydronephrosis. Limited visualization of the left kidney obscured by bowel gas, exam otherwise unremarkable. Electronically signed by: Oneida Pham MD 06/05/2024 12:56 PM EDT RP Abdomen/Pelvis CT 06/04/24 18:33 IMPRESSION: Severe constipation. Otherwise unremarkable CT abdomen and pelvis. Fleischner guidelines were followed. Electronically signed by: Deyvi Collins MD 06/04/2024 07:05 PM EDT RP Ribs X-Ray 06/19/24 10:15 IMPRESSION: 1. Mild degenerative changes of the left shoulder. 2. No left-sided rib fracture. Electronically signed by: Orlando Lindsey MD 06/19/2024 10:50 AM EDT RP Shoulder X-Ray 06/19/24 10:15 IMPRESSION: 1. Mild degenerative changes of the left shoulder. 2. No left-sided rib fracture. Electronically signed by: Orlando Lindsey MD 06/19/2024 10:50 AM EDT RP Medications Medications Current Medications Acetaminophen (Acetaminophen 325 Mg Tablet) 650 mg PO Q8H [facility] Last Admin: 07/17/24 07:48 Dose: 650 mg Al Hydroxide/Mg Hydroxide (Magnesium Hydrox/Alum Hydrox 30 Ml Oral.Susp) 30 ml PO Q6H PRN PRN Reason: Heartburn/Nausea Albuterol Sulfate (Albuterol Sulfate 90 Mcg 8 Gm Inhaler) 2 puff INHALE QID PRN PRN Reason: Shortness Of Breath Last Admin: 07/08/24 09:54 Dose: 2 puff Ascorbic Acid (Ascorbic Acid 500 Mg Tablet) 1,000 mg PO DAILY [facility] Last Admin: 07/17/24 08:36 Dose: 1,000 mg Benzocaine (Throat Lozenge, Medicated Lozenge) 1 lozenge MUCOUS MEM Q2H PRN PRN Reason: Sore Throat Last Admin: 07/10/24 16:08 Dose: 1 lozenge Bethanechol Chloride (Bethanechol Chloride 25 Mg Tablet) 25 mg PO TID [facility] Last Admin: 07/17/24 08:35 Dose: 25 mg Bisacodyl (Bisacodyl 5 Mg Tablet.Dr) 10 mg PO BEDTIME [facility] Last Admin: 07/17/24 00:06 Dose: Not Given Bupropion HCl (Bupropion Hcl Xl 150 Mg Tab.Er.24h) 450 mg PO DAILY [facility] Last Admin: 07/17/24 08:35 Dose: 450 mg Cariprazine (Cariprazine Hcl 3 Mg Capsule) 6 mg PO DAILY [facility] Last Admin: 07/17/24 08:35 Dose: 6 mg Clonazepam (Clonazepam 0.5 Mg Tablet) 0.5 mg PO BID@0900,1700 [facility] Last Admin: 07/17/24 08:35 Dose: 0.5 mg Clonidine HCl (Clonidine Hcl 0.1 Mg Tablet) 0.1 mg PO BEDTIME [facility]; Protocol Last Admin: 07/16/24 22:06 Dose: 0.1 mg Clonidine HCl (Clonidine Hcl 0.1 Mg Tablet) 0.1 mg PO Q4H PRN; Protocol PRN Reason: anxiety Last Admin: 07/16/24 14:22 Dose: 0.1 mg Hydroxyzine HCl (Hydroxyzine Hcl 25 Mg Tablet) 25 mg PO Q6H PRN PRN Reason: Anxiety Last Admin: 07/09/24 02:41 Dose: 25 mg Lactulose (Lactulose 20 Gm/30 Ml Solution) 40 gm PO DAILY [facility] Last Admin: 07/17/24 08:38 Dose: Not Given Lidocaine (Lidocaine 4 % Patch Adh..Patch) 1 patch TRANSDERMA DAILY [facility]; Protocol Last Admin: 07/17/24 08:38 Dose: Not Given Lidocaine (Lidocaine 4 % Patch Adh..Patch) 2 patch TRANSDERMA DAILY [facility]; Protocol Last Admin: 07/17/24 08:39 Dose: Not Given Lidocaine HCl (Lidocaine Hcl 2 % Urojet 10 Ml Jel.Pf.Luis) 10 ml TOPICAL BID PRN PRN Reason: Pain, Severe (Pain Scale 7-10) Last Admin: 06/19/24 22:05 Dose: 10 ml [place] Carbonate ([place] Carbonate Er 300 Mg Tablet.Er) 600 mg PO BEDTIME [facility] Last Admin: 07/16/24 22:04 Dose: 600 mg Loperamide HCl (Loperamide Hcl 2 Mg Capsule) 2 mg PO Q4H PRN PRN Reason: Diarrhea Magnesium Hydroxide (Milk Of Magnesia 30 Ml Oral.Susp) 30 ml PO DAILY PRN PRN Reason: Constipation Last Admin: 06/04/24 05:22 Dose: 30 ml Multi-Ingred Cream/Lotion/Oil/Oint (Mineral Oil/Petrolatum,White 106 Gm Tube) 1 appl TOPICAL BID PRN; Protocol PRN Reason: Dry Skin Last Admin: 06/13/24 21:44 Dose: 1 appl Patient Own (Belbuca (75mcg Buccal Films)) 1 each PO BID [facility] Last Admin: 07/17/24 08:40 Dose: Not Given Ondansetron HCl (Ondansetron Odt 4 Mg Tab.Rapdis) 4 mg TRANSLINGU Q6H PRN PRN Reason: Nausea and Vomiting Last Admin: 07/17/24 08:37 Dose: 4 mg Polyethylene Glycol (Polyethylene Glycol 3350 17 Gm Powd.Pack) 17 gm PO BID [facility] Last Admin: 07/17/24 08:39 Dose: Not Given Quetiapine Fumarate (Quetiapine Fumarate 50 Mg Tablet) 150 mg PO BEDTIME [facility] Last Admin: 07/16/24 22:05 Dose: 150 mg Senna/Docusate Sodium (Sennosides/Docusate Sodium Tablet) 2 tab PO BID [facility] Last Admin: 07/17/24 08:39 Dose: Not Given Simethicone (Simethicone 80 Mg Tab.Chew) 160 mg PO BID PRN PRN Reason: bloating/gas Last Admin: 06/07/24 11:06 Dose: 160 mg Tamsulosin HCl (Tamsulosin Hcl 0.4 Mg Capsule) 0.4 mg PO BEDTIME [facility] Last Admin: 07/16/24 22:07 Dose: 0.4 mg Tramadol HCl (Tramadol Hcl 50 Mg Tablet) 50 mg PO Q6H PRN PRN Reason: Pain, Severe (Pain Scale 7-10) Last Admin: 07/17/24 07:49 Dose: 50 mg Allergies Allergies Allergy/AdvReac Type Severity Reaction Status Date / Time azithromycin Allergy Itching Verified 06/21/24 12:35 levofloxacin [From Levaquin] Allergy Nightmare Verified 06/21/24 12:35 nitrofurantoin Allergy Itching Verified 06/21/24 12:35 [From Macrodantin] Assessment & Plan Assessment & Plan (1) Voiding dysfunction: Status: Acute Code(s): N39.8 - Other specified disorders of urinary system (2) PTSD (post-traumatic stress disorder): Status: Acute Code(s): F43.10 - Post-traumatic stress disorder, unspecified (3) Chronic pain syndrome: Status: Acute Code(s): G89.4 - Chronic pain syndrome (4) Urinary retention: Status: Acute Code(s): R33.9 - Retention of urine, unspecified Plan Sacral Neuromodulation Interstim trial. No improvement. The patient is still requiring ISC. Interstim Program changed 07/17- patient better psychiatrically- would like to have surgery review incision refused david today so that maybe tramadol or fiorcet would work? not sure what she wants to do with that- Patient educated on: medication risk/benefits and medical condition Informed Consent: understands Reason for continued inpatient stay Substantial Risk for: med/psych decompensation Time Spent With Patient Time: Total time managing care of this patient today ____ minutes.
[2024-07-17] MEDS: Butalb/Acetamin/Caff 50/325/40 TABLET 1 TAB PO (10:47)
[2024-07-17] MEDS: Acetaminophen 325 MG TABLET 975 MG PO (15:47)
[2024-07-17 19:43] VITALS: BP 129/83; PULSE 87; RESP 18; TEMP 36.7; O2SAT 100
[2024-07-17] MEDS: BUPRENORPHINE 75 MCG 1 EACH PO (22:09)
[2024-07-17] MEDS: Lithium Carbonate ER 300 MG TABLET.ER 600 MG PO (22:10)
[2024-07-17] MEDS: Tamsulosin HCL 0.4 MG CAPSULE PO (22:10)
[2024-07-17] MEDS: Sennosides/Docusate Sodium TABLET 2 TAB PO (22:11)
[2024-07-17] MEDS: QUEtiapine Fumarate 50 MG TABLET 150 MG PO (22:11)
[2024-07-17] MEDS: cloNIDine HCL 0.1 MG TABLET PO (22:11)
[2024-07-18 08:00] VITALS: BP 112/60; PULSE 73; RESP 16; TEMP 36.4; O2SAT 100
[2024-07-18] MEDS: Acetaminophen 325 MG TABLET 975 MG PO ×2 (08:18→15:21)
[2024-07-18] MEDS: Ascorbic Acid 500 MG TABLET 1000 MG PO (08:18)
[2024-07-18] MEDS: buPROPion HCl XL 150 MG TAB.ER.24H 450 MG PO (08:18)
[2024-07-18] MEDS: clonazePAM 0.5 MG TABLET PO ×2 (08:18→16:37)
[2024-07-18] MEDS: Cariprazine HCl 3 MG CAPSULE 6 MG PO (08:19)
[2024-07-18] MEDS: Bethanechol Chloride 25 MG TABLET PO ×3 (08:19→22:01)
[2024-07-18] MEDS: traMADoL HCL 50 MG TABLET PO ×3 (08:59→21:39)
[2024-07-18] MEDS: Lactulose 20 GM/30 ML SOLUTION 40 GM PO (10:09)
[2024-07-18 19:07] VITALS: BP 140/86
[2024-07-18] MEDS: cloNIDine HCL 0.1 MG TABLET PO ×2 (19:07→22:02)
[2024-07-18 20:00] VITALS: BP 139/86; PULSE 90; RESP 16; TEMP 36.9; O2SAT 97
[2024-07-18] MEDS: Lithium Carbonate ER 300 MG TABLET.ER 600 MG PO (22:01)
[2024-07-18] MEDS: Tamsulosin HCL 0.4 MG CAPSULE PO (22:01)
[2024-07-18] MEDS: BUPRENORPHINE 75 MCG 1 EACH PO (22:01)
[2024-07-18] MEDS: QUEtiapine Fumarate 50 MG TABLET 150 MG PO (22:02)
[2024-07-18] MEDS: Sennosides/Docusate Sodium TABLET 2 TAB PO (22:02)
--- NOTE | 2024-07-18 22:53 | P.PNPSI_ITS ---
Subjective Subjective Date of Service: 07/18/24 Reason For Visit: SI Interim History: Met with patient; discussed with team Patient reports that she remains in good mood is hoping she will be able to continue doing well when she discharges. Hoping to go to respite and wants to avoid going to her mother's. Patient continues to utilize coping strategies learned during this admission including CBT skills. Mental Status Exam Mental Status Exam Narrative: Pt is alert and oriented; behavior is cooperative, friendly and calm, brighter, social w/ peers, engaged; patient is not in distress; dressed in casual attire with braided hair, makeup, adequate hygiene; mood is described as good and affect congruent, overall brighter; eye contact appropriate; Speech is normal rate, volume and prosody and not pressured; no psychomotor agitation/retardation present; thought process is organized and goal directed; Thought content is on dealing with strong feelings, overcoming SI; otherwise pertinent to relevant topics and without any delusional content, paranoid ideations or grandiosity; no SI/no HI There is no evidence of perceptual disturbance. Patients insight and judgment fair Diagnostics Vital Signs (24Hr): Vital Signs - 24 hr 07/18/24 08:00 07/18/24 19:07 07/18/24 20:00 Temperature 97.5 F 98.4 F Pulse Rate 73 90 Respiratory Rate 16 16 Blood Pressure 112/60 140/86 H 139/86 Pulse Oximetry 100 97 Oxygen Delivery Method Room Air Room Air BMI result Body Mass Index 16.1 Labs 07/07/24 14:53 07/23/24 10:21 Imaging Radiology Impressions: ITS Impressions KUB X-Ray 06/03/24 19:55 IMPRESSION: Increased amount of stool in the colon suggesting constipation. Please correlate with clinical presentation. Electronically signed by: Oneida Pham MD 06/04/2024 07:31 AM EDT Renal Ultrasound 06/04/24 14:49 IMPRESSION: No ultrasound evidence of renal obstruction or hydronephrosis. Limited visualization of the left kidney obscured by bowel gas, exam otherwise unremarkable. Electronically signed by: Oneida Pham MD 06/05/2024 12:56 PM EDT RP Abdomen/Pelvis CT 06/04/24 18:33 IMPRESSION: Severe constipation. Otherwise unremarkable CT abdomen and pelvis. Fleischner guidelines were followed. Electronically signed by: Deyvi Collins MD 06/04/2024 07:05 PM EDT RP Ribs X-Ray 06/19/24 10:15 IMPRESSION: 1. Mild degenerative changes of the left shoulder. 2. No left-sided rib fracture. Electronically signed by: Orlando Lindsey MD 06/19/2024 10:50 AM EDT RP Shoulder X-Ray 06/19/24 10:15 IMPRESSION: 1. Mild degenerative changes of the left shoulder. 2. No left-sided rib fracture. Electronically signed by: Orlando Lindsey MD 06/19/2024 10:50 AM EDT RP Medications Medications Current Medications Acetaminophen (Acetaminophen 325 Mg Tablet) 975 mg PO Q8H [facility] Last Admin: 07/18/24 15:21 Dose: 975 mg Al Hydroxide/Mg Hydroxide (Magnesium Hydrox/Alum Hydrox 30 Ml Oral.Susp) 30 ml PO Q6H PRN PRN Reason: Heartburn/Nausea Albuterol Sulfate (Albuterol Sulfate 90 Mcg 8 Gm Inhaler) 2 puff INHALE QID PRN PRN Reason: Shortness Of Breath Last Admin: 07/08/24 09:54 Dose: 2 puff Ascorbic Acid (Ascorbic Acid 500 Mg Tablet) 1,000 mg PO DAILY [facility] Last Admin: 07/18/24 08:18 Dose: 1,000 mg Benzocaine (Throat Lozenge, Medicated Lozenge) 1 lozenge MUCOUS MEM Q2H PRN PRN Reason: Sore Throat Last Admin: 07/10/24 16:08 Dose: 1 lozenge Bethanechol Chloride (Bethanechol Chloride 25 Mg Tablet) 25 mg PO TID [facility] Last Admin: 07/18/24 22:01 Dose: 25 mg Bisacodyl (Bisacodyl 5 Mg Tablet.Dr) 10 mg PO BEDTIME [facility] Last Admin: 07/17/24 22:10 Dose: Not Given Bupropion HCl (Bupropion Hcl Xl 150 Mg Tab.Er.24h) 450 mg PO DAILY [facility] Last Admin: 07/18/24 08:18 Dose: 450 mg Cariprazine (Cariprazine Hcl 3 Mg Capsule) 6 mg PO DAILY [facility] Last Admin: 07/18/24 08:19 Dose: 6 mg Clonazepam (Clonazepam 0.5 Mg Tablet) 0.5 mg PO BID@0900,1700 [facility] Last Admin: 07/18/24 16:37 Dose: 0.5 mg Clonidine HCl (Clonidine Hcl 0.1 Mg Tablet) 0.1 mg PO BEDTIME [facility]; Protocol Last Admin: 07/18/24 22:02 Dose: 0.1 mg Clonidine HCl (Clonidine Hcl 0.1 Mg Tablet) 0.1 mg PO Q4H PRN; Protocol PRN Reason: anxiety Last Admin: 07/18/24 19:07 Dose: 0.1 mg Hydroxyzine HCl (Hydroxyzine Hcl 25 Mg Tablet) 25 mg PO Q6H PRN PRN Reason: Anxiety Last Admin: 07/09/24 02:41 Dose: 25 mg Lactulose (Lactulose 20 Gm/30 Ml Solution) 40 gm PO DAILY [facility] Last Admin: 07/18/24 10:09 Dose: 40 gm Lidocaine (Lidocaine 4 % Patch Adh..Patch) 1 patch TRANSDERMA DAILY [facility]; Protocol Last Admin: 07/18/24 08:34 Dose: Not Given Lidocaine (Lidocaine 4 % Patch Adh..Patch) 2 patch TRANSDERMA DAILY [facility]; Protocol Last Admin: 07/18/24 08:34 Dose: Not Given Lidocaine HCl (Lidocaine Hcl 2 % Urojet 10 Ml Jel.Pf.Luis) 10 ml TOPICAL BID PRN PRN Reason: Pain, Severe (Pain Scale 7-10) Last Admin: 06/19/24 22:05 Dose: 10 ml Collins Carbonate (Collins Carbonate Er 300 Mg Tablet.Er) 600 mg PO BEDTIME [facility] Last Admin: 07/18/24 22:01 Dose: 600 mg Loperamide HCl (Loperamide Hcl 2 Mg Capsule) 2 mg PO Q4H PRN PRN Reason: Diarrhea Magnesium Hydroxide (Milk Of Magnesia 30 Ml Oral.Susp) 30 ml PO DAILY PRN PRN Reason: Constipation Last Admin: 06/04/24 05:22 Dose: 30 ml Multi-Ingred Cream/Lotion/Oil/Oint (Mineral Oil/Petrolatum,White 106 Gm Tube) 1 appl TOPICAL BID PRN; Protocol PRN Reason: Dry Skin Last Admin: 06/13/24 21:44 Dose: 1 appl Patient Own (Belbuca (75mcg Buccal Films)) 1 each PO BID [facility] Last Admin: 07/18/24 22:01 Dose: 1 each Ondansetron HCl (Ondansetron Odt 4 Mg Tab.Rapdis) 4 mg TRANSLINGU Q6H PRN PRN Reason: Nausea and Vomiting Last Admin: 07/17/24 08:37 Dose: 4 mg Polyethylene Glycol (Polyethylene Glycol 3350 17 Gm Powd.Pack) 17 gm PO BID [facility] Last Admin: 07/18/24 08:34 Dose: Not Given Quetiapine Fumarate (Quetiapine Fumarate 50 Mg Tablet) 150 mg PO BEDTIME [facility] Last Admin: 07/18/24 22:02 Dose: 150 mg Senna/Docusate Sodium (Sennosides/Docusate Sodium Tablet) 2 tab PO BID [facility] Last Admin: 07/18/24 22:02 Dose: 2 tab Simethicone (Simethicone 80 Mg Tab.Chew) 160 mg PO BID PRN PRN Reason: bloating/gas Last Admin: 06/07/24 11:06 Dose: 160 mg Tamsulosin HCl (Tamsulosin Hcl 0.4 Mg Capsule) 0.4 mg PO BEDTIME [facility] Last Admin: 07/18/24 22:01 Dose: 0.4 mg Tramadol HCl (Tramadol Hcl 50 Mg Tablet) 50 mg PO Q6H PRN PRN Reason: Pain, Severe (Pain Scale 7-10) Last Admin: 07/18/24 21:39 Dose: 50 mg Allergies Allergies Allergy/AdvReac Type Severity Reaction Status Date / Time azithromycin Allergy Itching Verified 06/21/24 12:35 levofloxacin [From Levaquin] Allergy Nightmare Verified 06/21/24 12:35 nitrofurantoin Allergy Itching Verified 06/21/24 12:35 [From Macrodantin] Assessment & Plan Assessment & Plan (1) MDD (major depressive disorder), recurrent episode, moderate: Status: Acute Code(s): F33.1 - Major depressive disorder, recurrent, moderate (2) PTSD (post-traumatic stress disorder): Status: Acute Code(s): F43.10 - Post-traumatic stress disorder, unspecified (3) Voiding dysfunction: Status: Acute Code(s): N39.8 - Other specified disorders of urinary system (4) Chronic pain syndrome: Status: Acute Code(s): G89.4 - Chronic pain syndrome (5) Urinary retention: Status: Acute Code(s): R33.9 - Retention of urine, unspecified (6) Jennifer-Danlos disease: Status: Acute Code(s): Q79.60 - Jennifer-Danlos syndrome, unspecified (7) Osteogenesis imperfecta: Status: Acute Code(s): Q78.0 - Osteogenesis imperfecta Plan HPI: Patient is a 39-year-old female with history of Jennifer Danlos syndrome, osteogenesis imperfecta, myofascial pain syndrome, migraines, juvenile osteoporosis, asthma, and mood disorder with history of rectocele, vaginal mesh surgery, urinary retention requiring Van catheterization, which was recently restarted. P atient?presented?to?[facility]?on?924?following?intentional?overdose?on?muscle?rel axers.??Patient?lujan mary?was?immediately?transferred?to?medical?floor?for?urinary?retention;?she?stab ilized?there?and?was?discharged.?? She?presents?again?for?overdose On?gabapentin?and?trazodone,?Which?she?asserts?was?not?intentional (though later admits it was),?saying?she?just?wanted?to?sleep?and?get?relief?from?chronic?pain H owever?she?agrees?it?was?impulsive?and?unsafe.??Patient?currently?denies?any?SI. ??She?reports?howeve r?that?life?has?been?very?difficultff?pain?medications,?having?been?prescribed?o pioids?consistently?for?the?past?24?years,? as?well?as?Ativan.??Patient?agrees?she?needs Help?stabilizing?and?coping. Relevant Medical/psych History: Patient was on opiates scheduled for 24 years to manage chronic medical comorbidities, resulting in hx of multiple fractures/falls and subsequent chronic pain. Pt denies any hx of substance abuse, including cannabis. She did screen positive for Fentanyl at first admission in October 2024 but is adamant she's never used it in her life and no quantitative labs done (leaving Fentanyl use inconclusive). Patients long-time physician of [address] Brigido Dietrich retired and new PCP tapered her off and discontinued all opioid pain management (also tapered and dc'd ativan). Patient reports she has been in constant pain and discomfort since then and has felt very frustrated and challenged to enjoy life, sometimes challenging her desire to live. Discussed?case?with?MANAGER MONEY Vianey Dunaway from pain management clinic: pt seen on 05/24. MANAGER MONEY Gume agrees that patients medical comorbidities and subsequent chronic pain syndrome are commonly treated with opioid pain management. She recommends either Butrans patch or preferably Belbucha films (a form of Buprenorphin and titrating it to 150mg BID). Pt is also appropriate to get other nerve blocking treatments at pain clinic who will f/u with pt. Air Tube Releaser spoke with patient's PCP Dr. Rubio at [facility] Dr. Rubio reports concurs that patient has Osteogenesis imprefecta, Ehlos Danlos Pt was on opioids for 24 years with prior PCP. With [facility] she was on Oxycodine 30mg QID and Oxycontin 30mg daily. In Sep 2023 pt was admitted to [facility] for concern for overdose. Additionally, there were other concerns including that [facility] notes referenced that patient reported being on a Fentanyl patch, which this provider had never prescribed. Additionally, there was hx of patient needing refills early and a report that her mother had used some of her medications. Also patient had significant weight loss which provider was concerned might have contributed to possible accidental overdose. Because of these concerns provider, clinic repeatedly called patient to come in and discuss pain management and reportedly reached out to her from October until January however patient did not respond or come in for appointments, having missed several. Provider reports that because of lack of communication and ongoing concern that was never addressed, Provider felt it was necessary to taper patient off pain medication which was started in January; patient was also tapered off Ativan. Provider agrees that patient does have significant medical history that is commonly treated with chronic pain medication. Air Tube Releaser discussed options with them and Dr. Rubio agrees that starting patient on a buprenorphine product is an acceptable alternative to oxycodone. Vraylar since depressed and hx of manic-esque IMPRESSION: Patient's?depression?and?SI?seem?to?have significant?situational component?as?she?is?No?longer?receiving?pain?management?for?severe,?chronic?pain . P atient?has?no?known?history?of?substance?abuse.??Although?she?did?screen?positiv e?for?fentanyl (on?10/27/2023 and?05/18/2024), No?quantitative?analysis?was?done. ?This?mean that?fentanyl?screen?could?very?well?be?a?false-positive?result (which is not uncommon). Medical?decision?should?not?be?based?on?only?a?positive?screen?for?fentanyl. Patient does struggle with SI and with her chronic?pain?And?poor?support?will?likely?continue?to?produce?mood?instability.? ?Treatment?plan?will?include?technical publications writer/team?discussion?with Outpatient?PCP?regarding?plan?for?treatment. Hospital course: 06/05: Continue current regimen and plans 06/06. Continue current plans and regimen. Loperamide was put on hold. Started on simethicone by hospitalist. No indications of GI bleeding currently. -seen by GI: C/o constipation and worsening abdominal distension. Will order CT A/P with IV/PO contrast to assess for SBO/ileus though passage of gas and small amount of stool argues against complete obstruction; however she is at risk given multiple surgeries. If no obstruction will order bowel regimen to address constipation. Continue Van, Urology following. 06/07 Patient reports that she is depressed. She apologized for not being more forthcoming earlier on in says it took her awhile to admitted to herself but she does not want to be in this world anymore... And has a plan to jump in front of a train on discharge. Patient also reports that overdose on trazodone/gabapentin was actually an intentional suicide attempt. She reports a constant deluge of self-deprecating thoughts which include that she is worthless, discussed in, and fat. 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 Despite her SI, patient does want help getting better agrees to try antidepressant medication; technical publications writer reviewed options and risks/side effects and patient with Vraylar. Also discussed pain medication management and patient agrees with Belbuca which she has heard of; she also agrees to non opioid pain management and will follow-up with pain management Clinic here at [facility]. Discussed relationship with her mother and she does not SA think her mother struggles with drug addiction but has caught her trying to get into her room, which patient keeps locked, looking for her medications which she has taken in the past. Patient said she reported this to her PCP. Patient does have history of being prescribed fentanyl patch however she did not like them and weaned herself off of them; set had some left over 06/08 Patient remains depressed with suicidal thinking however is trying to be hopeful and has tolerated Vraylar and says will continue, with increased dose; grateful for help getting Belbuca through prior authorization. -Discussed case with urology who recommends remaining with indwelling Van since failed voiding attempt on 06/03; will continue to follow -pt reported and nurse corroborated that Van bag containing urine was blood- tinged; discussed with Urologist, deemed likely micro trauma, and to keep van in place; recently failed voiding trial on 06/03 06/09 Patient reports she remains depressed, with SI. Patient also reports she had a very difficult time sleeping last night feeling very upset following a conversation she had on the phone with her mother. Patient expressed to her mother she is feeling hurt that her mom has not visited or called throughout her admission, even on patient's birthday; she says her mom was on apologetic. Patient also challenged her mom regarding her mom's past comment that patient could burn in hell with her father (who 2 years ago); mom remained unapologetic. Patient tells technical publications writer she has no idea why her mom said this other than that her mom is crazy... Subsequently patient reports that throughout the night, she had racing thoughts and no sleep. Discussed medications and patient and pt is eager to try Belbuca Films for pain management, available today dc'd gabapentin; pt said has never helped for pain or anxiety Adding clonidine at bedtime to help w/ sleep, anxiety 06/10 patient reports that Belbuca is helping with pain Patient remains very depressed and continues to have suicidal thoughts, saying she wants to end her life when she leaves the hospital. Patient Says I do not understand myself.. And laments she is gone most of her life without any suicidal ideation and only started this past September. Patient shared about some other reasons that it might be occurring and agrees that she still mourning the loss of her father who was her confidante; dealing with chronic pain having been off pain medications for several months and the ongoing struggles in her relationship with her mother and brother whom she feels are bullying; trying to come to terms with the fact that her mother simply isn't going to be the kind of mother she wishes she had. Patient agrees to medication management. 06/13 still very depressed with SI. Sleeping better however which is helpful and pain medications are also helpful. Patient agrees to increasing Vraylar; agrees to behavioral activation and attending groups. Despite ongoing thoughts about self-harm and ending her life when she is discharge, patient is also future oriented and says she would like to find a new place to live separate from her mother and brother. Asks for help going about that. 06/14 pt remains depressed, positive for SI with a plan but also future oriented talking about changing her living situation. Pt is engaged in treatment, trying to process her suicidal feelings and trying to be hopeful it will resolve. Agrees to adding Wellbutrin. -will likely add Wellbutrin; however, will probably keep Vraylar (maybe at lower dose) since pt has hx of manic-esque episodes (thought not formally diagnosed with bipolar as episode had several contributory factors) 06/15 remains depressed but processing feelings, doing worksheets, talking about her mother. Pt very anxious. -may increase wellbutrin for depression -considered starting Clonazepam 0.5mg BID; pt used to be on as much as 5mg of ativan daily; was weened off so hesitant to restart benzo's; 06/17 increase Wellbutrin 06/20 Over the weekend, patient assessed for infection, starting antibiotic; concerned that indwelling Van catheter is not sustainable; urology consulted and plan was for suprapubic catheter insertion for today. Patient however did not get fully informed of this and was upset to learn that a procedure was planned. She was however able to discuss this at length with technical publications writer and urology team and agreed to proceed. 06/21 Dr. Niño decided better to do a cystoscopy 1st and then decide whether not suprapubic catheter verse bladder stimulator; patient consents Seen by infectious disease: She has no urinary concerns at this time..No further antibiotics for now 06/22 Patient discussed conversation she had with her brother that was reassuring. Patient felt understood by him and supported which has lifted her mood. She feels that although she still depressed perhaps some of the depression is lifting and she starting to feel that there is hope of change in her situation. Patient remains very anxious. Earlier she had said she did not want to get back on benzodiazepines, having been on Ativan 5 mg for decades, weaned off only about a year ago. However given patient's struggles with anxiety and the fact that benzos have helped her in the past, discussed restarting a benzodiazepine, this time clonazepam 0.5 mg b.i.d.; technical publications writer discussed at length risks for addiction and the constant desire to have more. Patient said she very much does not want that to happen and feels that she will be able to minimize her use 06/23 Depressed, with intermittent SI. very anxious and with despairing thoughts has upcoming anniversary of her father's which is this July 03; will try to make it remembrance day and change the perspective. -Feeling better about catheter and plan; technical publications writer discussed with urology who met with patient and plan is for July 05 to move forward with stimulator -patient attending groups and engaged in treatment 06/24 a little better; mood up and down and still intermittent SI but patient is working on being hopeful employee numerous coping skills. Agrees to increase Wellbutrin 06/25 Patient continues to report depressed mood; told nurse that she remains purging daily and still plans to attempt suicide when she leaves. However on the unit, she seems more relaxed. Patient shared with technical publications writer her plan to remember her father on the anniversary of his . 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 Currently she is eating enough. As this is a chronic problem that that has gone on for over 20 years, and with which patient has been able to cope with on her own, without needing hospitalizations or [facility] admissions since teenage years, technical publications writer does not expect that it will resolve during this inpatient stay and does not believe that it needs to. 06/27 very tearful sad; suicidal; pushing self to be around others, groups -talked about eating struggles, purging; trying not to 06/28 do not think that medication management will change patients depression at this time. Rather she needs continued time to process her feelings of despair, grief about her fathers , hx of trauma, feeling her future is bleak. -technical publications writer engaged in psychodynamic psychotherapy 06/29 same presentation; technical publications writer engaged in psychodynamic psychotherapy 06/30: feels clonidine and klonopin helpful for anxiety. asking for pain med change; deferred for return of attending, does not appear in pain. Q5s for SI/van. social staff worker feel pt is not substantially worse than her recent inpatient baseline, but perhaps looking a bit better today than yesterday. 07/01: appears behaving as per usual for inpatient context. increase seroquel to 150 QHS for insomnia and appetite stimulation. continue current mgmt otherwise. 07/02: Continues depressed with suicidal thoughts. Says she wants to starve self. VSS. Check metabolic panel. 07/04 Patient continues to lament her past and anger and frustration with specific relationships. Says still feels hopeless can not stop thinking about ending her life. Discussed more about taking responsibility for feelings and while anger and frustration at others can be appropriate, it is also necessary to work on coping with such feelings. Patient said she will continue to try. Discussed history and patient has not really had SI till this October and discussed how these feelings will also pass... Discussed medication management and patient agreed to trial of lithium for continued depression and chronic SI. and increasing Vraylar -patient considers ending her life by starving herself though she has been eating on the unit. -discussed surgical implantation of bladder stimulator tomorrow 07/05 received?bladder?stimulator;?remains?with?indwelling?catheter?which?will?be?nancy floyd?tomorrow?or?the?following?day. -increased?Vraylar?to?6?mg 07/06 continue?with?treatment?plan;??Aba Good?helping?with?implanted?bladder?stim 07/07 adjusting to new device, bladder scan; discussed?how?history?of?trauma?left?patient?needing?to?a?certain?sense?of?contr ol [place]?her?life?in?body?which?likely?plays?a?part?into?developing?anorexia,?SI...?? This?idea?resonate?with?patient? w ho?agreed?that?she?is?overly?focused?on?blaming?others?and?giving?to?little?atte ntion?to?how?to?work?on Her?own?personal?issues. 1 09/07?continue?current?treatment?plan?except?will?increase?lithium?to?help?with?d epression P atient?continues?to?make?statements?that?she?is?thinking?of?ending?her?life.??In ?the?same?conversation?however?she?will?also?discuss H er?efforts?to?move?out?of?her?mother's?house?and?get?her?own?place?to?live;?she? talks?about?being?able?to?bear?living?there?while She?makes?plans?to?move?out.? 07/10: Continue current regimen and plans for stabilization and medication management 07/11 Patient was willing to have a very blunt discussion about her suicidality. She agreed that there is a significant part of her that gets a benefit from feeling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
[2024-07-19 08:00] VITALS: BP 147/84; PULSE 80; RESP 18; TEMP 36.3; O2SAT 97
[2024-07-19] MEDS: traMADoL HCL 50 MG TABLET PO ×3 (08:00→22:24)
[2024-07-19] MEDS: buPROPion HCl XL 150 MG TAB.ER.24H 450 MG PO (08:36)
[2024-07-19] MEDS: Cariprazine HCl 3 MG CAPSULE 6 MG PO (08:36)
[2024-07-19] MEDS: clonazePAM 0.5 MG TABLET PO ×2 (08:36→15:59)
[2024-07-19] MEDS: Bethanechol Chloride 25 MG TABLET PO ×3 (08:36→22:23)
[2024-07-19] MEDS: Ascorbic Acid 500 MG TABLET 1000 MG PO (08:37)
[2024-07-19 11:24] VITALS: BP 116/73
[2024-07-19] MEDS: cloNIDine HCL 0.1 MG TABLET PO ×3 (11:24→22:23)
[2024-07-19] MEDS: Acetaminophen 325 MG TABLET 975 MG PO ×2 (11:24→20:25)
[2024-07-19 16:54] VITALS: BP 118/70
[2024-07-19 20:00] VITALS: BP 148/72; PULSE 82; RESP 16; TEMP 36.4; O2SAT 97
[2024-07-19 22:23] VITALS: BP 120/77
[2024-07-19] MEDS: QUEtiapine Fumarate 50 MG TABLET 150 MG PO (22:23)
[2024-07-19] MEDS: Lithium Carbonate ER 300 MG TABLET.ER 600 MG PO (22:23)
[2024-07-19] MEDS: Tamsulosin HCL 0.4 MG CAPSULE PO (22:24)
[2024-07-19] MEDS: BUPRENORPHINE 75 MCG 1 EACH PO (22:41)
[2024-07-20 08:00] VITALS: BP 134/71; PULSE 69; RESP 14; TEMP 36.4; O2SAT 99
[2024-07-20] MEDS: Acetaminophen 325 MG TABLET 975 MG PO (08:56)
[2024-07-20] MEDS: buPROPion HCl XL 150 MG TAB.ER.24H 450 MG PO (08:57)
[2024-07-20] MEDS: Ascorbic Acid 500 MG TABLET 1000 MG PO (08:57)
[2024-07-20] MEDS: Cariprazine HCl 3 MG CAPSULE 6 MG PO (08:57)
[2024-07-20] MEDS: Bethanechol Chloride 25 MG TABLET PO ×3 (08:57→21:44)
[2024-07-20] MEDS: clonazePAM 0.5 MG TABLET PO ×2 (08:57→16:05)
[2024-07-20] MEDS: traMADoL HCL 50 MG TABLET PO ×3 (09:03→22:22)
--- NOTE | 2024-07-20 10:20 | P.PNPSI_ITS ---
Subjective Subjective Date of Service: 07/19/24 Reason For Visit: SI Interim History: late entry note for pt seen on 07/19; met with pt; discussed with team Patient was excited to share that she spontaneously urinated. She was also able to self-catheterize. Patient remains in good mood; has not been eating as much and staff reports patient continues to intermittently purge. Upholstery Bundler superficially broached this topic which patient acknowledged. Mental Status Exam Mental Status Exam Narrative: Pt is alert and oriented; behavior is cooperative, friendly and calm, brighter and more engaged, social with peers, enjoying milieu; patient is not in distress; dressed in casual attire, makeup and with adequate hygiene; mood is described as good and affect congruent, overall brighter; eye contact appropriate; Speech is normal rate, volume and prosody and not pressured; no psychomotor agitation/retardation present; thought process is organized and goal directed; Thought content is on dealing with strong feelings, overcoming SI; otherwise pertinent to relevant topics and without any delusional content, paranoid ideations or grandiosity; no SI/no HI There is no evidence of perceptual disturbance. Patients insight and judgment impaired but much improved and adequate Diagnostics Vital Signs (24Hr): Vital Signs - 24 hr 07/19/24 11:24 07/19/24 16:54 07/19/24 20:00 Temperature 97.6 F Pulse Rate 82 Respiratory Rate 16 Blood Pressure 116/73 118/70 148/72 H Pulse Oximetry 97 Oxygen Delivery Method Room Air 07/19/24 22:23 Temperature Pulse Rate Respiratory Rate Blood Pressure 120/77 Pulse Oximetry Oxygen Delivery Method BMI result Body Mass Index 16.1 Labs 07/07/24 14:53 07/23/24 10:21 Imaging Radiology Impressions: ITS Impressions KUB X-Ray 06/03/24 19:55 IMPRESSION: Increased amount of stool in the colon suggesting constipation. Please correlate with clinical presentation. Electronically signed by: Oneida Pham MD 06/04/2024 07:31 AM EDT Renal Ultrasound 06/04/24 14:49 IMPRESSION: No ultrasound evidence of renal obstruction or hydronephrosis. Limited visualization of the left kidney obscured by bowel gas, exam otherwise unremarkable. Electronically signed by: Oneida Pham MD 06/05/2024 12:56 PM EDT RP Abdomen/Pelvis CT 06/04/24 18:33 IMPRESSION: Severe constipation. Otherwise unremarkable CT abdomen and pelvis. Fleischner guidelines were followed. Electronically signed by: Deyvi Collins MD 06/04/2024 07:05 PM EDT RP Ribs X-Ray 06/19/24 10:15 IMPRESSION: 1. Mild degenerative changes of the left shoulder. 2. No left-sided rib fracture. Electronically signed by: Orlando Lindsey MD 06/19/2024 10:50 AM EDT RP Shoulder X-Ray 06/19/24 10:15 IMPRESSION: 1. Mild degenerative changes of the left shoulder. 2. No left-sided rib fracture. Electronically signed by: Orlando Lindsey MD 06/19/2024 10:50 AM EDT RP Medications Medications Current Medications Acetaminophen (Acetaminophen 325 Mg Tablet) 975 mg PO Q8H [facility] Last Admin: 07/20/24 08:56 Dose: 975 mg Al Hydroxide/Mg Hydroxide (Magnesium Hydrox/Alum Hydrox 30 Ml Oral.Susp) 30 ml PO Q6H PRN PRN Reason: Heartburn/Nausea Albuterol Sulfate (Albuterol Sulfate 90 Mcg 8 Gm Inhaler) 2 puff INHALE QID PRN PRN Reason: Shortness Of Breath Last Admin: 07/08/24 09:54 Dose: 2 puff Ascorbic Acid (Ascorbic Acid 500 Mg Tablet) 1,000 mg PO DAILY [facility] Last Admin: 07/20/24 08:57 Dose: 1,000 mg Benzocaine (Throat Lozenge, Medicated Lozenge) 1 lozenge MUCOUS MEM Q2H PRN PRN Reason: Sore Throat Last Admin: 07/10/24 16:08 Dose: 1 lozenge Bethanechol Chloride (Bethanechol Chloride 25 Mg Tablet) 25 mg PO TID [facility] Last Admin: 07/20/24 08:57 Dose: 25 mg Bisacodyl (Bisacodyl 5 Mg Tablet.Dr) 10 mg PO BEDTIME [facility] Last Admin: 07/19/24 22:42 Dose: Not Given Bupropion HCl (Bupropion Hcl Xl 150 Mg Tab.Er.24h) 450 mg PO DAILY [facility] Last Admin: 07/20/24 08:57 Dose: 450 mg Cariprazine (Cariprazine Hcl 3 Mg Capsule) 6 mg PO DAILY [facility] Last Admin: 07/20/24 08:57 Dose: 6 mg Clonazepam (Clonazepam 0.5 Mg Tablet) 0.5 mg PO BID@0900,1700 [facility] Last Admin: 07/20/24 08:57 Dose: 0.5 mg Clonidine HCl (Clonidine Hcl 0.1 Mg Tablet) 0.1 mg PO BEDTIME [facility]; Protocol Last Admin: 07/19/24 22:23 Dose: 0.1 mg Clonidine HCl (Clonidine Hcl 0.1 Mg Tablet) 0.1 mg PO Q4H PRN; Protocol PRN Reason: anxiety Last Admin: 07/19/24 16:54 Dose: 0.1 mg Hydroxyzine HCl (Hydroxyzine Hcl 25 Mg Tablet) 25 mg PO Q6H PRN PRN Reason: Anxiety Last Admin: 07/09/24 02:41 Dose: 25 mg Lactulose (Lactulose 20 Gm/30 Ml Solution) 40 gm PO DAILY [facility] Last Admin: 07/20/24 09:07 Dose: Not Given Lidocaine (Lidocaine 4 % Patch Adh..Patch) 1 patch TRANSDERMA DAILY [facility]; Protocol Last Admin: 07/20/24 09:07 Dose: Not Given Lidocaine (Lidocaine 4 % Patch Adh..Patch) 2 patch TRANSDERMA DAILY [facility]; Protocol Last Admin: 07/20/24 09:07 Dose: Not Given Lidocaine HCl (Lidocaine Hcl 2 % Urojet 10 Ml Jel.Pf.Luis) 10 ml TOPICAL BID PRN PRN Reason: Pain, Severe (Pain Scale 7-10) Last Admin: 06/19/24 22:05 Dose: 10 ml Rockbridge Carbonate (Rockbridge Carbonate Er 300 Mg Tablet.Er) 600 mg PO BEDTIME [facility] Last Admin: 07/19/24 22:23 Dose: 600 mg Loperamide HCl (Loperamide Hcl 2 Mg Capsule) 2 mg PO Q4H PRN PRN Reason: Diarrhea Magnesium Hydroxide (Milk Of Magnesia 30 Ml Oral.Susp) 30 ml PO DAILY PRN PRN Reason: Constipation Last Admin: 06/04/24 05:22 Dose: 30 ml Multi-Ingred Cream/Lotion/Oil/Oint (Mineral Oil/Petrolatum,White 106 Gm Tube) 1 appl TOPICAL BID PRN; Protocol PRN Reason: Dry Skin Last Admin: 06/13/24 21:44 Dose: 1 appl Patient Own (Belbuca (75mcg Buccal Films)) 1 each PO BID [facility] Last Admin: 07/20/24 09:07 Dose: Not Given Ondansetron HCl (Ondansetron Odt 4 Mg Tab.Rapdis) 4 mg TRANSLINGU Q6H PRN PRN Reason: Nausea and Vomiting Last Admin: 07/17/24 08:37 Dose: 4 mg Polyethylene Glycol (Polyethylene Glycol 3350 17 Gm Powd.Pack) 17 gm PO BID [facility] Last Admin: 07/20/24 09:07 Dose: Not Given Quetiapine Fumarate (Quetiapine Fumarate 50 Mg Tablet) 150 mg PO BEDTIME [facility] Last Admin: 07/19/24 22:23 Dose: 150 mg Senna/Docusate Sodium (Sennosides/Docusate Sodium Tablet) 2 tab PO BID [facility] Last Admin: 07/20/24 09:01 Dose: Not Given Simethicone (Simethicone 80 Mg Tab.Chew) 160 mg PO BID PRN PRN Reason: bloating/gas Last Admin: 06/07/24 11:06 Dose: 160 mg Tamsulosin HCl (Tamsulosin Hcl 0.4 Mg Capsule) 0.4 mg PO BEDTIME [facility] Last Admin: 07/19/24 22:24 Dose: 0.4 mg Tramadol HCl (Tramadol Hcl 50 Mg Tablet) 50 mg PO Q6H PRN PRN Reason: Pain, Severe (Pain Scale 7-10) Last Admin: 07/20/24 09:03 Dose: 50 mg Allergies Allergies Allergy/AdvReac Type Severity Reaction Status Date / Time azithromycin Allergy Itching Verified 06/21/24 12:35 levofloxacin [From Levaquin] Allergy Nightmare Verified 06/21/24 12:35 nitrofurantoin Allergy Itching Verified 06/21/24 12:35 [From Macrodantin] Assessment & Plan Assessment & Plan (1) MDD (major depressive disorder), recurrent episode, moderate: Status: Acute Code(s): F33.1 - Major depressive disorder, recurrent, moderate (2) PTSD (post-traumatic stress disorder): Status: Acute Code(s): F43.10 - Post-traumatic stress disorder, unspecified (3) Voiding dysfunction: Status: Acute Code(s): N39.8 - Other specified disorders of urinary system Assessment and Plan: She has no urinary concerns at this time No further antibiotics for now (4) Urinary retention: Status: Acute Code(s): R33.9 - Retention of urine, unspecified (5) Jennifer-Danlos disease: Status: Acute Code(s): Q79.60 - Jennifer-Danlos syndrome, unspecified (6) Osteogenesis imperfecta: Status: Acute Code(s): Q78.0 - Osteogenesis imperfecta (7) Myofascial pain syndrome: Status: Acute Code(s): M79.18 - Myalgia, other site Plan HPI: Patient is a 39-year-old female with history of Jennifer Danlos syndrome, osteogenesis imperfecta, myofascial pain syndrome, migraines, juvenile osteoporosis, asthma, and mood disorder with history of rectocele, vaginal mesh surgery, urinary retention requiring Van catheterization, which was recently restarted. P atient?presented?to?[facility]?on?924?following?intentional?overdose?on?muscle?rel axers.??Patient?lujan mary?was?immediately?transferred?to?medical?floor?for?urinary?retention;?she?stab ilized?there?and?was?discharged.?? She?presents?again?for?overdose On?gabapentin?and?trazodone,?Which?she?asserts?was?not?intentional (though later admits it was),?saying?she?just?wanted?to?sleep?and?get?relief?from?chronic?pain H owever?she?agrees?it?was?impulsive?and?unsafe.??Patient?currently?denies?any?SI. ??She?reports?howeve r?that?life?has?been?very?difficultff?pain?medications,?having?been?prescribed?o pioids?consistently?for?the?past?24?years,? as?well?as?Ativan.??Patient?agrees?she?needs Help?stabilizing?and?coping. Relevant Medical/psych History: Patient was on opiates scheduled for 24 years to manage chronic medical comorbidities, resulting in hx of multiple fractures/falls and subsequent chronic pain. Pt denies any hx of substance abuse, including cannabis. She did screen positive for Fentanyl at first admission in October 2024 but is adamant she's never used it in her life and no quantitative labs done (leaving Fentanyl use inconclusive). Patients long-time physician of [address] Brigido Dietrich retired and new PCP tapered her off and discontinued all opioid pain management (also tapered and dc'd ativan). Patient reports she has been in constant pain and discomfort since then and has felt very frustrated and challenged to enjoy life, sometimes challenging her desire to live. Discussed?case?with?TRAFFIC REPORTER Vianey Dunaway from pain management clinic: pt seen on 05/24. TRAFFIC REPORTER Gume agrees that patients medical comorbidities and subsequent chronic pain syndrome are commonly treated with opioid pain management. She recommends either Butrans patch or preferably Belbucha films (a form of Buprenorphin and titrating it to 150mg BID). Pt is also appropriate to get other nerve blocking treatments at pain clinic who will f/u with pt. Upholstery Bundler spoke with patient's PCP Dr. Rubio at [facility] Dr. Rubio reports concurs that patient has Osteogenesis imprefecta, Ehlos Danlos Pt was on opioids for 24 years with prior PCP. With [facility] she was on Oxycodine 30mg QID and Oxycontin 30mg daily. In Sep 2023 pt was admitted to [facility] for concern for overdose. Additionally, there were other concerns including that [facility] notes referenced that patient reported being on a Fentanyl patch, which this provider had never prescribed. Additionally, there was hx of patient needing refills early and a report that her mother had used some of her medications. Also patient had significant weight loss which provider was concerned might have contributed to possible accidental overdose. Because of these concerns provider, clinic repeatedly called patient to come in and discuss pain management and reportedly reached out to her from October until January however patient did not respond or come in for appointments, having missed several. Provider reports that because of lack of communication and ongoing concern that was never addressed, Provider felt it was necessary to taper patient off pain medication which was started in January; patient was also tapered off Ativan. Provider agrees that patient does have significant medical history that is commonly treated with chronic pain medication. Upholstery Bundler discussed options with them and Dr. Rubio agrees that starting patient on a buprenorphine product is an acceptable alternative to oxycodone. Vraylar since depressed and hx of manic-esque IMPRESSION: Patient's?depression?and?SI?seem?to?have significant?situational component?as?she?is?No?longer?receiving?pain?management?for?severe,?chronic?pain . P atient?has?no?known?history?of?substance?abuse.??Although?she?did?screen?positiv e?for?fentanyl (on?10/27/2023 and?05/18/2024), No?quantitative?analysis?was?done. ?This?mean that?fentanyl?screen?could?very?well?be?a?false-positive?result (which is not uncommon). Medical?decision?should?not?be?based?on?only?a?positive?screen?for?fentanyl. Patient does struggle with SI and with her chronic?pain?And?poor?support?will?likely?continue?to?produce?mood?instability.? ?Treatment?plan?will?include?fiction and nonfiction prose writer/team?discussion?with Outpatient?PCP?regarding?plan?for?treatment. Hospital course: 06/05: Continue current regimen and plans 06/06. Continue current plans and regimen. Loperamide was put on hold. Started on simethicone by hospitalist. No indications of GI bleeding currently. -seen by GI: C/o constipation and worsening abdominal distension. Will order CT A/P with IV/PO contrast to assess for SBO/ileus though passage of gas and small amount of stool argues against complete obstruction; however she is at risk given multiple surgeries. If no obstruction will order bowel regimen to address constipation. Continue Van, Urology following. 06/07 Patient reports that she is depressed. She apologized for not being more forthcoming earlier on in says it took her awhile to admitted to herself but she does not want to be in this world anymore... And has a plan to jump in front of a train on discharge. Patient also reports that overdose on trazodone/gabapentin was actually an intentional suicide attempt. She reports a constant deluge of self-deprecating thoughts which include that she is worthless, discussed in, and fat. 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 Despite her SI, patient does want help getting better agrees to try antidepressant medication; fiction and nonfiction prose writer reviewed options and risks/side effects and patient with Vraylar. Also discussed pain medication management and patient agrees with Belbuca which she has heard of; she also agrees to non opioid pain management and will follow-up with pain management Clinic here at [facility]. Discussed relationship with her mother and she does not SA think her mother struggles with drug addiction but has caught her trying to get into her room, which patient keeps locked, looking for her medications which she has taken in the past. Patient said she reported this to her PCP. Patient does have history of being prescribed fentanyl patch however she did not like them and weaned herself off of them; set had some left over 06/08 Patient remains depressed with suicidal thinking however is trying to be hopeful and has tolerated Vraylar and says will continue, with increased dose; grateful for help getting Belbuca through prior authorization. -Discussed case with urology who recommends remaining with indwelling Van since failed voiding attempt on 06/03; will continue to follow -pt reported and nurse corroborated that Van bag containing urine was blood- tinged; discussed with Urologist, deemed likely micro trauma, and to keep van in place; recently failed voiding trial on 06/03 06/09 Patient reports she remains depressed, with SI. Patient also reports she had a very difficult time sleeping last night feeling very upset following a conversation she had on the phone with her mother. Patient expressed to her mother she is feeling hurt that her mom has not visited or called throughout her admission, even on patient's birthday; she says her mom was on apologetic. Patient also challenged her mom regarding her mom's past comment that patient could burn in hell with her father (who 2 years ago); mom remained unapologetic. Patient tells fiction and nonfiction prose writer she has no idea why her mom said this other than that her mom is crazy... Subsequently patient reports that throughout the night, she had racing thoughts and no sleep. Discussed medications and patient and pt is eager to try Belbuca Films for pain management, available today dc'd gabapentin; pt said has never helped for pain or anxiety Adding clonidine at bedtime to help w/ sleep, anxiety 06/10 patient reports that Belbuca is helping with pain Patient remains very depressed and continues to have suicidal thoughts, saying she wants to end her life when she leaves the hospital. Patient Says I do not understand myself.. And laments she is gone most of her life without any suicidal ideation and only started this past September. Patient shared about some other reasons that it might be occurring and agrees that she still mourning the loss of her father who was her confidante; dealing with chronic pain having been off pain medications for several months and the ongoing struggles in her relationship with her mother and brother whom she feels are bullying; trying to come to terms with the fact that her mother simply isn't going to be the kind of mother she wishes she had. Patient agrees to medication management. 06/13 still very depressed with SI. Sleeping better however which is helpful and pain medications are also helpful. Patient agrees to increasing Vraylar; agrees to behavioral activation and attending groups. Despite ongoing thoughts about self-harm and ending her life when she is discharge, patient is also future oriented and says she would like to find a new place to live separate from her mother and brother. Asks for help going about that. 06/14 pt remains depressed, positive for SI with a plan but also future oriented talking about changing her living situation. Pt is engaged in treatment, trying to process her suicidal feelings and trying to be hopeful it will resolve. Agrees to adding Wellbutrin. -will likely add Wellbutrin; however, will probably keep Vraylar (maybe at lower dose) since pt has hx of manic-esque episodes (thought not formally diagnosed with bipolar as episode had several contributory factors) 06/15 remains depressed but processing feelings, doing worksheets, talking about her mother. Pt very anxious. -may increase wellbutrin for depression -considered starting Clonazepam 0.5mg BID; pt used to be on as much as 5mg of ativan daily; was weened off so hesitant to restart benzo's; 06/17 increase Wellbutrin 06/20 Over the weekend, patient assessed for infection, starting antibiotic; concerned that indwelling Van catheter is not sustainable; urology consulted and plan was for suprapubic catheter insertion for today. Patient however did not get fully informed of this and was upset to learn that a procedure was planned. She was however able to discuss this at length with fiction and nonfiction prose writer and urology team and agreed to proceed. 06/21 Dr. Niño decided better to do a cystoscopy 1st and then decide whether not suprapubic catheter verse bladder stimulator; patient consents Seen by infectious disease: She has no urinary concerns at this time..No further antibiotics for now 06/22 Patient discussed conversation she had with her brother that was reassuring. Patient felt understood by him and supported which has lifted her mood. She feels that although she still depressed perhaps some of the depression is lifting and she starting to feel that there is hope of change in her situation. Patient remains very anxious. Earlier she had said she did not want to get back on benzodiazepines, having been on Ativan 5 mg for decades, weaned off only about a year ago. However given patient's struggles with anxiety and the fact that benzos have helped her in the past, discussed restarting a benzodiazepine, this time clonazepam 0.5 mg b.i.d.; fiction and nonfiction prose writer discussed at length risks for addiction and the constant desire to have more. Patient said she very much does not want that to happen and feels that she will be able to minimize her use 06/23 Depressed, with intermittent SI. very anxious and with despairing thoughts has upcoming anniversary of her father's which is this July 03; will try to make it remembrance day and change the perspective. -Feeling better about catheter and plan; fiction and nonfiction prose writer discussed with urology who met with patient and plan is for July 05 to move forward with stimulator -patient attending groups and engaged in treatment 06/24 a little better; mood up and down and still intermittent SI but patient is working on being hopeful employee numerous coping skills. Agrees to increase Wellbutrin 06/25 Patient continues to report depressed mood; told nurse that she remains purging daily and still plans to attempt suicide when she leaves. However on the unit, she seems more relaxed. Patient shared with fiction and nonfiction prose writer her plan to remember her father on the anniversary of his . 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 Currently she is eating enough. As this is a chronic problem that that has gone on for over 20 years, and with which patient has been able to cope with on her own, without needing hospitalizations or [facility] admissions since teenage years, fiction and nonfiction prose writer does not expect that it will resolve during this inpatient stay and does not believe that it needs to. 06/27 very tearful sad; suicidal; pushing self to be around others, groups -talked about eating struggles, purging; trying not to 06/28 do not think that medication management will change patients depression at this time. Rather she needs continued time to process her feelings of despair, grief about her fathers , hx of trauma, feeling her future is bleak. -fiction and nonfiction prose writer engaged in psychodynamic psychotherapy 06/29 same presentation; fiction and nonfiction prose writer engaged in psychodynamic psychotherapy 06/30: feels clonidine and klonopin helpful for anxiety. asking for pain med change; deferred for return of attending, does not appear in pain. Q5s for SI/van. staff training and development manager feel pt is not substantially worse than her recent inpatient baseline, but perhaps looking a bit better today than yesterday. 07/01: appears behaving as per usual for inpatient context. increase seroquel to 150 QHS for insomnia and appetite stimulation. continue current mgmt otherwise. 07/02: Continues depressed with suicidal thoughts. Says she wants to starve self. VSS. Check metabolic panel. 07/04 Patient continues to lament her past and anger and frustration with specific relationships. Says still feels hopeless can not stop thinking about ending her life. Discussed more about taking responsibility for feelings and while anger and frustration at others can be appropriate, it is also necessary to work on coping with such feelings. Patient said she will continue to try. Discussed history and patient has not really had SI till this October and discussed how these feelings will also pass... Discussed medication management and patient agreed to trial of lithium for continued depression and chronic SI. and increasing Vraylar -patient considers ending her life by starving herself though she has been eating on the unit. -discussed surgical implantation of bladder stimulator tomorrow 07/05 received?bladder?stimulator;?remains?with?indwelling?catheter?which?will?be?nancy floyd?tomorrow?or?the?following?day. -increased?Vraylar?to?6?mg 07/06 continue?with?treatment?plan;?DrParam?Aba Good?helping?with?implanted?bladder?stim 07/07 adjusting to new device, bladder scan; discussed?how?history?of?trauma?left?patient?needing?to?a?certain?sense?of?contr ol O mary?her?life?in?body?which?likely?plays?a?part?into?developing?anorexia,?SI...?? This?idea?resonate?with?patient? w ho?agreed?that?she?is?overly?focused?on?blaming?others?and?giving?to?little?atte ntion?to?how?to?work?on Her?own?personal?issues. 1 09/07?continue?current?treatment?plan?except?will?increase?lithium?to?help?with?d epression P atient?continues?to?make?statements?that?she?is?thinking?of?ending?her?life.??In ?the?same?conversation?however?she?will?also?discuss H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
[2024-07-20] MEDS: BUPRENORPHINE 75 MCG 1 EACH PO ×2 (14:30→21:40)
--- NOTE | 2024-07-20 19:46 | P.PNPSI_ITS ---
Subjective Subjective Date of Service: 07/20/24 Reason For Visit: SI Interim History: Met with patient; discussed with team Patient remains much improved, overall good mood and future oriented. She shared about how she gets anxious and will have intermittent, fleeting SI. Last night patient made a comment that if she went back to her mother's house she would kill herself. Sales Associate Cashier discussed this thoroughly and patient is very clear that she does not want to kill herself and does not want to . Discussing coping skills, patient actually thinks that she is probably in a position to better tolerate living at her mother's house (if she had to) and lists some ways she would cope there. She also shared that she knows she has other options besides suicide, such as calling crisis or calling her older brother Edward who is supportive. Patient said that she would very much like to discharge, overall feels ready enough and would discharge later this week if that was an option. Patient felt Thursday was realistic and agreed to dispo planning Mental Status Exam Mental Status Exam Narrative: Pt is alert and oriented; behavior is cooperative, friendly and calm, brighter, engaged and social with peers; patient is not in distress; dressed in casual attire with braided hair, makeup, adequate hygiene; mood is described as ok and affect congruent, overall brighter; eye contact appropriate; Speech is normal rate, volume and prosody and not pressured; no psychomotor agitation/retardation present; thought process is organized and goal directed; Thought content is on dealing with strong feelings, overcoming SI; otherwise pertinent to relevant topics and without any delusional content, paranoid ideations or grandiosity; no SI/no HI There is no evidence of perceptual disturbance. Patients insight and judgment impaired but much improved and adequate. Diagnostics Vital Signs (24Hr): Vital Signs - 24 hr 07/19/24 20:00 07/19/24 22:23 07/20/24 08:00 Temperature 97.6 F 97.5 F Pulse Rate 82 69 Respiratory Rate 16 14 Blood Pressure 148/72 H 120/77 134/71 Pulse Oximetry 97 99 Oxygen Delivery Method Room Air Room Air BMI result Body Mass Index 16.1 Labs 07/07/24 14:53 07/23/24 10:21 Imaging Radiology Impressions: ITS Impressions KUB X-Ray 06/03/24 19:55 IMPRESSION: Increased amount of stool in the colon suggesting constipation. Please correlate with clinical presentation. Electronically signed by: Oneida Pham MD 06/04/2024 07:31 AM EDT RP Renal Ultrasound 06/04/24 14:49 IMPRESSION: No ultrasound evidence of renal obstruction or hydronephrosis. Limited visualization of the left kidney obscured by bowel gas, exam otherwise unremarkable. Electronically signed by: Oneida Pham MD 06/05/2024 12:56 PM EDT RP Abdomen/Pelvis CT 06/04/24 18:33 IMPRESSION: Severe constipation. Otherwise unremarkable CT abdomen and pelvis. Fleischner guidelines were followed. Electronically signed by: Deyvi Collins MD 06/04/2024 07:05 PM EDT RP Ribs X-Ray 06/19/24 10:15 IMPRESSION: 1. Mild degenerative changes of the left shoulder. 2. No left-sided rib fracture. Electronically signed by: Orlando Lindsey MD 06/19/2024 10:50 AM EDT RP Shoulder X-Ray 06/19/24 10:15 IMPRESSION: 1. Mild degenerative changes of the left shoulder. 2. No left-sided rib fracture. Electronically signed by: Orlando Lindsey MD 06/19/2024 10:50 AM EDT RP Medications Medications Current Medications Acetaminophen (Acetaminophen 325 Mg Tablet) 975 mg PO Q8H [facility] Last Admin: 07/20/24 16:07 Dose: Not Given Al Hydroxide/Mg Hydroxide (Magnesium Hydrox/Alum Hydrox 30 Ml Oral.Susp) 30 ml PO Q6H PRN PRN Reason: Heartburn/Nausea Albuterol Sulfate (Albuterol Sulfate 90 Mcg 8 Gm Inhaler) 2 puff INHALE QID PRN PRN Reason: Shortness Of Breath Last Admin: 07/08/24 09:54 Dose: 2 puff Ascorbic Acid (Ascorbic Acid 500 Mg Tablet) 1,000 mg PO DAILY [facility] Last Admin: 07/20/24 08:57 Dose: 1,000 mg Benzocaine (Throat Lozenge, Medicated Lozenge) 1 lozenge MUCOUS MEM Q2H PRN PRN Reason: Sore Throat Last Admin: 07/10/24 16:08 Dose: 1 lozenge Bethanechol Chloride (Bethanechol Chloride 25 Mg Tablet) 25 mg PO TID [facility] Last Admin: 07/20/24 14:35 Dose: 25 mg Bisacodyl (Bisacodyl 5 Mg Tablet.Dr) 10 mg PO BEDTIME [facility] Last Admin: 07/19/24 22:42 Dose: Not Given Bupropion HCl (Bupropion Hcl Xl 150 Mg Tab.Er.24h) 450 mg PO DAILY EL[facility] Last Admin: 07/20/24 08:57 Dose: 450 mg Cariprazine (Cariprazine Hcl 3 Mg Capsule) 6 mg PO DAILY [facility] Last Admin: 07/20/24 08:57 Dose: 6 mg Clonazepam (Clonazepam 0.5 Mg Tablet) 0.5 mg PO BID@0900,1700 [facility] Last Admin: 07/20/24 16:05 Dose: 0.5 mg Clonidine HCl (Clonidine Hcl 0.1 Mg Tablet) 0.1 mg PO BEDTIME [facility]; Protocol Last Admin: 07/19/24 22:23 Dose: 0.1 mg Clonidine HCl (Clonidine Hcl 0.1 Mg Tablet) 0.1 mg PO Q4H PRN; Protocol PRN Reason: anxiety Last Admin: 07/19/24 16:54 Dose: 0.1 mg Hydroxyzine HCl (Hydroxyzine Hcl 25 Mg Tablet) 25 mg PO Q6H PRN PRN Reason: Anxiety Last Admin: 07/09/24 02:41 Dose: 25 mg Lactulose (Lactulose 20 Gm/30 Ml Solution) 40 gm PO DAILY [facility] Last Admin: 07/20/24 09:07 Dose: Not Given Lidocaine (Lidocaine 4 % Patch Adh..Patch) 1 patch TRANSDERMA DAILY [facility]; Protocol Last Admin: 07/20/24 09:07 Dose: Not Given Lidocaine (Lidocaine 4 % Patch Adh..Patch) 2 patch TRANSDERMA DAILY [facility]; Protocol Last Admin: 07/20/24 09:07 Dose: Not Given Lidocaine HCl (Lidocaine Hcl 2 % Urojet 10 Ml Jel.Pf.Luis) 10 ml TOPICAL BID PRN PRN Reason: Pain, Severe (Pain Scale 7-10) Last Admin: 06/19/24 22:05 Dose: 10 ml [place] Carbonate ([place] Carbonate Er 300 Mg Tablet.Er) 600 mg PO BEDTIME ELMO Last Admin: 07/19/24 22:23 Dose: 600 mg Loperamide HCl (Loperamide Hcl 2 Mg Capsule) 2 mg PO Q4H PRN PRN Reason: Diarrhea Magnesium Hydroxide (Milk Of Magnesia 30 Ml Oral.Susp) 30 ml PO DAILY PRN PRN Reason: Constipation Last Admin: 06/04/24 05:22 Dose: 30 ml Multi-Ingred Cream/Lotion/Oil/Oint (Mineral Oil/Petrolatum,White 106 Gm Tube) 1 appl TOPICAL BID PRN; Protocol PRN Reason: Dry Skin Last Admin: 06/13/24 21:44 Dose: 1 appl Patient Own (Belbuca (75mcg Buccal Films)) 1 each PO BID ELMO Last Admin: 07/20/24 14:30 Dose: 1 each Ondansetron HCl (Ondansetron Odt 4 Mg Tab.Rapdis) 4 mg TRANSLINGU Q6H PRN PRN Reason: Nausea and Vomiting Last Admin: 07/17/24 08:37 Dose: 4 mg Polyethylene Glycol (Polyethylene Glycol 3350 17 Gm Powd.Pack) 17 gm PO BID [facility] Last Admin: 07/20/24 09:07 Dose: Not Given Quetiapine Fumarate (Quetiapine Fumarate 50 Mg Tablet) 150 mg PO BEDTIME [facility] Last Admin: 07/19/24 22:23 Dose: 150 mg Senna/Docusate Sodium (Sennosides/Docusate Sodium Tablet) 2 tab PO BID [facility] Last Admin: 07/20/24 09:01 Dose: Not Given Simethicone (Simethicone 80 Mg Tab.Chew) 160 mg PO BID PRN PRN Reason: bloating/gas Last Admin: 06/07/24 11:06 Dose: 160 mg Tamsulosin HCl (Tamsulosin Hcl 0.4 Mg Capsule) 0.4 mg PO BEDTIME [facility] Last Admin: 07/19/24 22:24 Dose: 0.4 mg Tramadol HCl (Tramadol Hcl 50 Mg Tablet) 50 mg PO Q6H PRN PRN Reason: Pain, Severe (Pain Scale 7-10) Last Admin: 07/20/24 16:05 Dose: 50 mg Allergies Allergies Allergy/AdvReac Type Severity Reaction Status Date / Time azithromycin Allergy Itching Verified 06/21/24 12:35 levofloxacin [From Levaquin] Allergy Nightmare Verified 06/21/24 12:35 nitrofurantoin Allergy Itching Verified 06/21/24 12:35 [From Macrodantin] Assessment & Plan Assessment & Plan (1) MDD (major depressive disorder), recurrent episode, moderate: Status: Acute Code(s): F33.1 - Major depressive disorder, recurrent, moderate (2) PTSD (post-traumatic stress disorder): Status: Acute Code(s): F43.10 - Post-traumatic stress disorder, unspecified (3) Voiding dysfunction: Status: Acute Code(s): N39.8 - Other specified disorders of urinary system Assessment and Plan: She has no urinary concerns at this time No further antibiotics for now (4) Urinary retention: Status: Acute Code(s): R33.9 - Retention of urine, unspecified (5) Jennifer-Danlos disease: Status: Acute Code(s): Q79.60 - Jennifer-Danlos syndrome, unspecified (6) Osteogenesis imperfecta: Status: Acute Code(s): Q78.0 - Osteogenesis imperfecta (7) Myofascial pain syndrome: Status: Acute Code(s): M79.18 - Myalgia, other site Plan HPI: Patient is a 39-year-old female with history of Jennifer Danlos syndrome, osteogenesis imperfecta, myofascial pain syndrome, migraines, juvenile osteoporosis, asthma, and mood disorder with history of rectocele, vaginal mesh surgery, urinary retention requiring Van catheterization, which was recently restarted. P atient?presented?to?[facility]?on?924?following?intentional?overdose?on?muscle?rel axers.??Patient?lujan mary?was?immediately?transferred?to?medical?floor?for?urinary?retention;?she?stab ilized?there?and?was?discharged.?? She?presents?again?for?overdose On?gabapentin?and?trazodone,?Which?she?asserts?was?not?intentional (though later admits it was),?saying?she?just?wanted?to?sleep?and?get?relief?from?chronic?pain H owever?she?agrees?it?was?impulsive?and?unsafe.??Patient?currently?denies?any?SI. ??She?reports?howeve r?that?life?has?been?very?difficultff?pain?medications,?having?been?prescribed?o pioids?consistently?for?the?past?24?years,? as?well?as?Ativan.??Patient?agrees?she?needs Help?stabilizing?and?coping. Relevant Medical/psych History: Patient was on opiates scheduled for 24 years to manage chronic medical comorbidities, resulting in hx of multiple fractures/falls and subsequent chronic pain. Pt denies any hx of substance abuse, including cannabis. She did screen positive for Fentanyl at first admission in October 2024 but is adamant she's never used it in her life and no quantitative labs done (leaving Fentanyl use inconclusive). Patients long-time physician of [address] Brigido Dietrich retired and new PCP tapered her off and discontinued all opioid pain management (also tapered and dc'd ativan). Patient reports she has been in constant pain and discomfort since then and has felt very frustrated and challenged to enjoy life, sometimes challenging her desire to live. Discussed?case?with?MAGDA Dunaway from pain management clinic: pt seen on 05/24. MAGDA Dunaway agrees that patients medical comorbidities and subsequent chronic pain syndrome are commonly treated with opioid pain management. She recommends either Butrans patch or preferably Bel[place]uch[place] films (a form of Buprenorphin and titrating it to 150mg BID). Pt is also appropriate to get other nerve blocking treatments at pain clinic who will f/u with pt. Sales Associate Cashier spoke with patient's PCP Dr. Rubio at [facility] Dr. Rubio reports concurs that patient has Osteogenesis imprefecta, Ehlos Danlos Pt was on opioids for 24 years with prior PCP. With [facility] she was on Oxycodine 30mg QID and Oxycontin 30mg daily. In Sep 2023 pt was admitted to [facility] for concern for overdose. Additionally, there were other concerns including that [facility] notes referenced that patient reported being on a Fentanyl patch, which this provider had never prescribed. Additionally, there was hx of patient needing refills early and a report that her mother had used some of her medications. Also patient had significant weight loss which provider was concerned might have contributed to possible accidental overdose. Because of these concerns provider, clinic repeatedly called patient to come in and discuss pain management and reportedly reached out to her from October until January however patient did not respond or come in for appointments, having missed several. Provider reports that because of lack of communication and ongoing concern that was never addressed, Provider felt it was necessary to taper patient off pain medication which was started in January; patient was also tapered off Ativan. Provider agrees that patient does have significant medical history that is commonly treated with chronic pain medication. Sales Associate Cashier discussed options with them and Dr. Rubio agrees that starting patient on a buprenorphine product is an acceptable alternative to oxycodone. Vraylar since depressed and hx of manic-esque IMPRESSION: Patient's?depression?and?SI?seem?to?have significant?situational component?as?she?is?No?longer?receiving?pain?management?for?severe,?chronic?pain . P atient?has?no?known?history?of?substance?abuse.??Although?she?did?screen?positiv e?for?fentanyl (on?10/27/2023 and?05/18/2024), No?quantitative?analysis?was?done. ?This?mean that?fentanyl?screen?could?very?well?be?a?false-positive?result (which is not uncommon). Medical?decision?should?not?be?based?on?only?a?positive?screen?for?fentanyl. Patient does struggle with SI and with her chronic?pain?And?poor?support?will?likely?continue?to?produce?mood?instability.? ?Treatment?plan?will?include?news writer/team?discussion?with Outpatient?PCP?regarding?plan?for?treatment. Hospital course: 06/05: Continue current regimen and plans 06/06. Continue current plans and regimen. Loperamide was put on hold. Started on simethicone by hospitalist. No indications of GI bleeding currently. -seen by GI: C/o constipation and worsening abdominal distension. Will order CT A/P with IV/PO contrast to assess for SBO/ileus though passage of gas and small amount of stool argues against complete obstruction; however she is at risk given multiple surgeries. If no obstruction will order bowel regimen to address constipation. Continue Van, Urology following. 06/07 Patient reports that she is depressed. She apologized for not being more forthcoming earlier on in says it took her awhile to admitted to herself but she does not want to be in this world anymore... And has a plan to jump in front of a train on discharge. Patient also reports that overdose on trazodone/gabapentin was actually an intentional suicide attempt. She reports a constant deluge of self-deprecating thoughts which include that she is worthless, discussed in, and fat. Sales Associate Cashier reviewed patient's history of anorexia and patient reports she sees herself as fat every day and eats very little (history of anorexia since 14 years old; was at brought up oral for a month with a feeding tube; she understands that this is a significant cause of her chronic constipation). Despite her SI, patient does want help getting better agrees to try antidepressant medication; news writer reviewed options and risks/side effects and patient with Vraylar. Also discussed pain medication management and patient agrees with Belbuca which she has heard of; she also agrees to non opioid pain management and will follow-up with pain management Clinic here at [facility]. Discussed relationship with her mother and she does not SA think her mother struggles with drug addiction but has caught her trying to get into her room, which patient keeps locked, looking for her medications which she has taken in the past. Patient said she reported this to her PCP. Patient does have history of being prescribed fentanyl patch however she did not like them and weaned herself off of them; set had some left over 06/08 Patient remains depressed with suicidal thinking however is trying to be hopeful and has tolerated Vraylar and says will continue, with increased dose; grateful for help getting Belbuca through prior authorization. -Discussed case with urology who recommends remaining with indwelling Van since failed voiding attempt on 06/03; will continue to follow -pt reported and nurse corroborated that Van bag containing urine was blood- tinged; discussed with Urologist, deemed likely micro trauma, and to keep van in place; recently failed voiding trial on 06/03 06/09 Patient reports she remains depressed, with SI. Patient also reports she had a very difficult time sleeping last night feeling very upset following a conversation she had on the phone with her mother. Patient expressed to her mother she is feeling hurt that her mom has not visited or called throughout her admission, even on patient's birthday; she says her mom was on apologetic. Patient also challenged her mom regarding her mom's past comment that patient could burn in hell with her father (who 2 years ago); mom remained unapologetic. Patient tells news writer she has no idea why her mom said this other than that her mom is crazy... Subsequently patient reports that throughout the night, she had racing thoughts and no sleep. Discussed medications and patient and pt is eager to try Belbuca Films for pain management, available today dc'd gabapentin; pt said has never helped for pain or anxiety Adding clonidine at bedtime to help w/ sleep, anxiety 06/10 patient reports that Belbuca is helping with pain Patient remains very depressed and continues to have suicidal thoughts, saying she wants to end her life when she leaves the hospital. Patient Says I do not understand myself.. And laments she is gone most of her life without any suicidal ideation and only started this past September. Patient shared about some other reasons that it might be occurring and agrees that she still mourning the loss of her father who was her confidante; dealing with chronic pain having been off pain medications for several months and the ongoing struggles in her relationship with her mother and brother whom she feels are bullying; trying to come to terms with the fact that her mother simply isn't going to be the kind of mother she wishes she had. Patient agrees to medication management. 06/13 still very depressed with SI. Sleeping better however which is helpful and pain medications are also helpful. Patient agrees to increasing Vraylar; agrees to behavioral activation and attending groups. Despite ongoing thoughts about self-harm and ending her life when she is discharge, patient is also future oriented and says she would like to find a new place to live separate from her mother and brother. Asks for help going about that. 06/14 pt remains depressed, positive for SI with a plan but also future oriented talking about changing her living situation. Pt is engaged in treatment, trying to process her suicidal feelings and trying to be hopeful it will resolve. Agrees to adding Wellbutrin. -will likely add Wellbutrin; however, will probably keep Vraylar (maybe at lower dose) since pt has hx of manic-esque episodes (thought not formally diagnosed with bipolar as episode had several contributory factors) 06/15 remains depressed but processing feelings, doing worksheets, talking about her mother. Pt very anxious. -may increase wellbutrin for depression -considered starting Clonazepam 0.5mg BID; pt used to be on as much as 5mg of ativan daily; was weened off so hesitant to restart benzo's; 06/17 increase Wellbutrin 06/20 Over the weekend, patient assessed for infection, starting antibiotic; concerned that indwelling Van catheter is not sustainable; urology consulted and plan was for suprapubic catheter insertion for today. Patient however did not get fully informed of this and was upset to learn that a procedure was planned. She was however able to discuss this at length with news writer and urology team and agreed to proceed. 06/21 Dr. Niño decided better to do a cystoscopy 1st and then decide whether not suprapubic catheter verse bladder stimulator; patient consents Seen by infectious disease: She has no urinary concerns at this time..No further antibiotics for now 06/22 Patient discussed conversation she had with her brother that was reassuring. Patient felt understood by him and supported which has lifted her mood. She feels that although she still depressed perhaps some of the depression is lifting and she starting to feel that there is hope of change in her situation. Patient remains very anxious. Earlier she had said she did not want to get back on benzodiazepines, having been on Ativan 5 mg for decades, weaned off only about a year ago. However given patient's struggles with anxiety and the fact that benzos have helped her in the past, discussed restarting a benzodiazepine, this time clonazepam 0.5 mg b.i.d.; news writer discussed at length risks for addiction and the constant desire to have more. Patient said she very much does not want that to happen and feels that she will be able to minimize her use 06/23 Depressed, with intermittent SI. very anxious and with despairing thoughts has upcoming anniversary of her father's which is this July 03; will try to make it remembrance day and change the perspective. -Feeling better about catheter and plan; news writer discussed with urology who met with patient and plan is for July 05 to move forward with stimulator -patient attending groups and engaged in treatment 06/24 a little better; mood up and down and still intermittent SI but patient is working on being hopeful employee numerous coping skills. Agrees to increase Wellbutrin 06/25 Patient continues to report depressed mood; told nurse that she remains purging daily and still plans to attempt suicide when she leaves. However on the unit, she seems more relaxed. Patient shared with news writer her plan to remember her father on the anniversary of his . 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 Currently she is eating enough. As this is a chronic problem that that has gone on for over 20 years, and with which patient has been able to cope with on her own, without needing hospitalizations or [facility] admissions since teenage years, news writer does not expect that it will resolve during this inpatient stay and does not believe that it needs to. 06/27 very tearful sad; suicidal; pushing self to be around others, groups -talked about eating struggles, purging; trying not to 06/28 do not think that medication management will change patients depression at this time. Rather she needs continued time to process her feelings of despair, grief about her fathers , hx of trauma, feeling her future is bleak. -news writer engaged in psychodynamic psychotherapy 06/29 same presentation; news writer engaged in psychodynamic psychotherapy 06/30: feels clonidine and klonopin helpful for anxiety. asking for pain med change; deferred for return of attending, does not appear in pain. Q5s for SI/van. cruise staff member feel pt is not substantially worse than her recent inpatient baseline, but perhaps looking a bit better today than yesterday. 07/01: appears behaving as per usual for inpatient context. increase seroquel to 150 QHS for insomnia and appetite stimulation. continue current mgmt otherwise. 07/02: Continues depressed with suicidal thoughts. Says she wants to starve self. VSS. Check metabolic panel. 07/04 Patient continues to lament her past and anger and frustration with specific relationships. Says still feels hopeless can not stop thinking about ending her life. Discussed more about taking responsibility for feelings and while anger and frustration at others can be appropriate, it is also necessary to work on coping with such feelings. Patient said she will continue to try. Discussed history and patient has not really had SI till this October and discussed how these feelings will also pass... Discussed medication management and patient agreed to trial of lithium for continued depression and chronic SI. and increasing Vraylar -patient considers ending her life by starving herself though she has been eating on the unit. -discussed surgical implantation of bladder stimulator tomorrow 07/05 received?bladder?stimulator;?remains?with?indwelling?catheter?which?will?be?nancy floyd?tomorrow?or?the?following?day. -increased?Vraylar?to?6?mg 07/06 continue?with?treatment?plan;?DrParam?Aba Good?helping?with?implanted?bladder?stim 07/07 adjusting to new device, bladder scan; discussed?how?history?of?trauma?left?patient?needing?to?a?certain?sense?of?contr ol [place]?her?life?in?body?which?likely?plays?a?part?into?developing?anorexia,?SI...?? This?idea?resonate?with?patient? w ho?agreed?that?she?is?overly?focused?on?blaming?others?and?giving?to?little?atte ntion?to?how?to?work?on Her?own?personal?issues. 1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
[2024-07-20 20:00] VITALS: BP 131/76; PULSE 82; RESP 18; TEMP 37.1; O2SAT 97
[2024-07-20] MEDS: cloNIDine HCL 0.1 MG TABLET PO (20:42)
[2024-07-20] MEDS: Lithium Carbonate ER 300 MG TABLET.ER 600 MG PO (21:44)
[2024-07-20] MEDS: Tamsulosin HCL 0.4 MG CAPSULE PO (21:44)
[2024-07-20] MEDS: QUEtiapine Fumarate 50 MG TABLET 150 MG PO (21:46)
[2024-07-20] MEDS: hydrOXYzine HCL 25 MG TABLET PO (21:50)
[2024-07-21] MEDS: traMADoL HCL 50 MG TABLET PO ×3 (08:27→23:04)
[2024-07-21 08:32] VITALS: BP 126/75; PULSE 79; TEMP 36.6; O2SAT 99
[2024-07-21] MEDS: BUPRENORPHINE 75 MCG 1 EACH PO ×2 (09:17→21:58)
[2024-07-21] MEDS: Cariprazine HCl 3 MG CAPSULE 6 MG PO (09:26)
[2024-07-21] MEDS: Bethanechol Chloride 25 MG TABLET PO ×3 (09:26→21:56)
[2024-07-21] MEDS: Ascorbic Acid 500 MG TABLET 1000 MG PO (09:26)
[2024-07-21] MEDS: clonazePAM 0.5 MG TABLET PO ×2 (09:26→16:54)
[2024-07-21] MEDS: buPROPion HCl XL 150 MG TAB.ER.24H 450 MG PO (09:26)
[2024-07-21] MEDS: Sennosides/Docusate Sodium TABLET 2 TAB PO ×2 (09:27→21:55)
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
[2024-07-21 11:04] VITALS: BP 128/83
[2024-07-21] MEDS: hydrOXYzine HCL 25 MG TABLET PO (11:04)
[2024-07-21] MEDS: cloNIDine HCL 0.1 MG TABLET PO ×3 (11:04→21:56)
--- NOTE | 2024-07-21 16:26 | PC.NURSE ---
15:20 Pt came to this song writer in [place] stating that she tripped on her chair in room & fell, breaking her fall with left hand. Pt c/o increased pain at wrist/forearm, where she has had previous fracture with surgeries. Reported to Dr Quiles. XRAYS ordered & completed. X-RAY reports states no acute fracture. Deformity of distal radius & ulna, likely postsurgical from previous surgery. Distal radial & ulnar hardware present.
[2024-07-21 16:53] VITALS: BP 118/74
[2024-07-21 20:00] VITALS: BP 100/68; PULSE 86; RESP 16; TEMP 36.4; O2SAT 99
[2024-07-21] MEDS: QUEtiapine Fumarate 50 MG TABLET 150 MG PO (21:55)
[2024-07-21] MEDS: Tamsulosin HCL 0.4 MG CAPSULE PO (21:56)
[2024-07-21] MEDS: Lithium Carbonate ER 300 MG TABLET.ER 600 MG PO (21:57)
[2024-07-22 08:00] VITALS: BP 110/61; PULSE 75; TEMP 36.3; O2SAT 97
[2024-07-22] MEDS: BUPRENORPHINE 75 MCG 1 EACH PO ×2 (08:53→22:52)
[2024-07-22] MEDS: traMADoL HCL 50 MG TABLET PO ×2 (08:56→16:00)
[2024-07-22] MEDS: Ascorbic Acid 500 MG TABLET 1000 MG PO (08:56)
[2024-07-22] MEDS: clonazePAM 0.5 MG TABLET PO ×2 (08:57→15:59)
[2024-07-22] MEDS: Cariprazine HCl 3 MG CAPSULE 6 MG PO (08:57)
[2024-07-22] MEDS: Bethanechol Chloride 25 MG TABLET PO ×3 (08:57→22:53)
[2024-07-22] MEDS: buPROPion HCl XL 150 MG TAB.ER.24H 450 MG PO (08:57)
--- NOTE | 2024-07-22 10:21 | HO.PSYCHPN ---
Subjective Subjective Date of Service: 07/22/24 Reason For Visit: SI Subjective Notes: Conditional Voluntary Interim History: Pt denies SI/HI. She reports feeling better, but worried about discharge back home with mother and brother. She has been visible on the unit, social with peers. No behavioral concerns. Diagnostics Vital Signs (24Hr): Vital Signs - 24 hr 07/21/24 11:04 07/21/24 16:53 07/21/24 20:00 Temperature 97.5 F Pulse Rate 86 Respiratory Rate 16 Blood Pressure 128/83 118/74 100/68 Pulse Oximetry 99 Oxygen Delivery Method Room Air BMI result Body Mass Index 16.1 Labs 07/07/24 14:53 07/07/24 14:53 Imaging Radiology Impressions: ITS Impressions KUB X-Ray 06/03/24 19:55 IMPRESSION: Increased amount of stool in the colon suggesting constipation. Please correlate with clinical presentation. Electronically signed by: Oneida Pham MD 06/04/2024 07:31 AM EDT Renal Ultrasound 06/04/24 14:49 IMPRESSION: No ultrasound evidence of renal obstruction or hydronephrosis. Limited visualization of the left kidney obscured by bowel gas, exam otherwise unremarkable. Electronically signed by: Oneida Pham MD 06/05/2024 12:56 PM EDT Abdomen/Pelvis CT 06/04/24 18:33 IMPRESSION: Severe constipation. Otherwise unremarkable CT abdomen and pelvis. Fleischner guidelines were followed. Electronically signed by: Deyvi Collins MD 06/04/2024 07:05 PM EDT Ribs X-Ray 06/19/24 10:15 IMPRESSION: 1. Mild degenerative changes of the left shoulder. 2. No left-sided rib fracture. Electronically signed by: Orlando Lindsey MD 06/19/2024 10:50 AM EDT Shoulder X-Ray 06/19/24 10:15 IMPRESSION: 1. Mild degenerative changes of the left shoulder. 2. No left-sided rib fracture. Electronically signed by: Orlando Lindsey MD 06/19/2024 10:50 AM EDT Elbow X-Ray 07/21/24 15:35 IMPRESSION: LEFT ELBOW: No acute fracture or dislocation. LEFT FOREARM: No acute fracture or dislocation. Chronic deformity of the distal radius and ulna, likely postsurgical. LEFT WRIST: No acute fracture or dislocation. Distal radial and ulnar hardware. Moderate radiocarpal osteoarthritis. Electronically signed by: Clifford Nails MD 07/21/2024 04:08 PM EST RP Forearm X-Ray 07/21/24 15:35 IMPRESSION: LEFT ELBOW: No acute fracture or dislocation. LEFT FOREARM: No acute fracture or dislocation. Chronic deformity of the distal radius and ulna, likely postsurgical. LEFT WRIST: No acute fracture or dislocation. Distal radial and ulnar hardware. Moderate radiocarpal osteoarthritis. Electronically signed by: Clifford Nails MD 07/21/2024 04:08 PM EST RP Wrist X-Ray 07/21/24 15:35 IMPRESSION: LEFT ELBOW: No acute fracture or dislocation. LEFT FOREARM: No acute fracture or dislocation. Chronic deformity of the distal radius and ulna, likely postsurgical. LEFT WRIST: No acute fracture or dislocation. Distal radial and ulnar hardware. Moderate radiocarpal osteoarthritis. Electronically signed by: Clifford Nails MD 07/21/2024 04:08 PM EST RP Medications Medications Current Medications Acetaminophen (Acetaminophen 325 Mg Tablet) 975 mg PO Q8H [facility] Last Admin: 07/22/24 08:50 Dose: Not Given Al Hydroxide/Mg Hydroxide (Magnesium Hydrox/Alum Hydrox 30 Ml Oral.Susp) 30 ml PO Q6H PRN PRN Reason: Heartburn/Nausea Albuterol Sulfate (Albuterol Sulfate 90 Mcg 8 Gm Inhaler) 2 puff INHALE QID PRN PRN Reason: Shortness Of Breath Last Admin: 07/08/24 09:54 Dose: 2 puff Ascorbic Acid (Ascorbic Acid 500 Mg Tablet) 1,000 mg PO DAILY [facility] Last Admin: 07/22/24 08:56 Dose: 1,000 mg Benzocaine (Throat Lozenge, Medicated Lozenge) 1 lozenge MUCOUS MEM Q2H PRN PRN Reason: Sore Throat Last Admin: 07/10/24 16:08 Dose: 1 lozenge Bethanechol Chloride (Bethanechol Chloride 25 Mg Tablet) 25 mg PO TID [facility] Last Admin: 07/22/24 08:57 Dose: 25 mg Bisacodyl (Bisacodyl 5 Mg Tablet.Dr) 10 mg PO BEDTIME [facility] Last Admin: 07/21/24 22:15 Dose: Not Given Bupropion HCl (Bupropion Hcl Xl 150 Mg Tab.Er.24h) 450 mg PO DAILY [facility] Last Admin: 07/22/24 08:57 Dose: 450 mg Cariprazine (Cariprazine Hcl 3 Mg Capsule) 6 mg PO DAILY [facility] Last Admin: 07/22/24 08:57 Dose: 6 mg Clonazepam (Clonazepam 0.5 Mg Tablet) 0.5 mg PO BID@0900,1700 [facility] Last Admin: 07/22/24 08:57 Dose: 0.5 mg Clonidine HCl (Clonidine Hcl 0.1 Mg Tablet) 0.1 mg PO BEDTIME [facility]; Protocol Last Admin: 07/21/24 21:56 Dose: 0.1 mg Clonidine HCl (Clonidine Hcl 0.1 Mg Tablet) 0.1 mg PO Q4H PRN; Protocol PRN Reason: anxiety Last Admin: 07/21/24 16:53 Dose: 0.1 mg Hydroxyzine HCl (Hydroxyzine Hcl 25 Mg Tablet) 25 mg PO Q6H PRN PRN Reason: Anxiety Last Admin: 07/21/24 11:04 Dose: 25 mg Lactulose (Lactulose 20 Gm/30 Ml Solution) 40 gm PO DAILY [facility] Last Admin: 07/21/24 09:31 Dose: Not Given Lidocaine (Lidocaine 4 % Patch Adh..Patch) 1 patch TRANSDERMA DAILY [facility]; Protocol Last Admin: 07/22/24 08:56 Dose: 1 patch Lidocaine (Lidocaine 4 % Patch Adh..Patch) 2 patch TRANSDERMA DAILY [facility]; Protocol Last Admin: 07/21/24 09:31 Dose: Not Given Lidocaine HCl (Lidocaine Hcl 2 % Urojet 10 Ml Jel.Pf.Luis) 10 ml TOPICAL BID PRN PRN Reason: Pain, Severe (Pain Scale 7-10) Last Admin: 06/19/24 22:05 Dose: 10 ml [place] Carbonate ([place] Carbonate Er 300 Mg Tablet.Er) 600 mg PO BEDTIME [facility] Last Admin: 07/21/24 21:57 Dose: 600 mg Loperamide HCl (Loperamide Hcl 2 Mg Capsule) 2 mg PO Q4H PRN PRN Reason: Diarrhea Magnesium Hydroxide (Milk Of Magnesia 30 Ml Oral.Susp) 30 ml PO DAILY PRN PRN Reason: Constipation Last Admin: 06/04/24 05:22 Dose: 30 ml Multi-Ingred Cream/Lotion/Oil/Oint (Mineral Oil/Petrolatum,White 106 Gm Tube) 1 appl TOPICAL BID PRN; Protocol PRN Reason: Dry Skin Last Admin: 06/13/24 21:44 Dose: 1 appl Patient Own (Belbuca (75mcg Buccal Films)) 1 each PO BID [facility] Last Admin: 07/22/24 08:53 Dose: 1 each Ondansetron HCl (Ondansetron Odt 4 Mg Tab.Rapdis) 4 mg TRANSLINGU Q6H PRN PRN Reason: Nausea and Vomiting Last Admin: 07/17/24 08:37 Dose: 4 mg Polyethylene Glycol (Polyethylene Glycol 3350 17 Gm Powd.Pack) 17 gm PO BID [facility] Last Admin: 07/21/24 22:15 Dose: Not Given Quetiapine Fumarate (Quetiapine Fumarate 50 Mg Tablet) 150 mg PO BEDTIME [facility] Last Admin: 07/21/24 21:55 Dose: 150 mg Senna/Docusate Sodium (Sennosides/Docusate Sodium Tablet) 2 tab PO BID [facility] Last Admin: 07/21/24 21:55 Dose: 2 tab Simethicone (Simethicone 80 Mg Tab.Chew) 160 mg PO BID PRN PRN Reason: bloating/gas Last Admin: 06/07/24 11:06 Dose: 160 mg Tamsulosin HCl (Tamsulosin Hcl 0.4 Mg Capsule) 0.4 mg PO BEDTIME [facility] Last Admin: 07/21/24 21:56 Dose: 0.4 mg Tramadol HCl (Tramadol Hcl 50 Mg Tablet) 50 mg PO Q6H PRN PRN Reason: Pain, Severe (Pain Scale 7-10) Last Admin: 07/22/24 08:56 Dose: 50 mg Allergies Allergies Allergy/AdvReac Type Severity Reaction Status Date / Time azithromycin Allergy Itching Verified 06/21/24 12:35 levofloxacin [From Levaquin] Allergy Nightmare Verified 06/21/24 12:35 nitrofurantoin Allergy Itching Verified 06/21/24 12:35 [From Macrodantin] Assessment & Plan Assessment & Plan (1) MDD (major depressive disorder), recurrent episode, moderate: Status: Acute Code(s): F33.1 - Major depressive disorder, recurrent, moderate (2) PTSD (post-traumatic stress disorder): Status: Acute Code(s): F43.10 - Post-traumatic stress disorder, unspecified (3) Voiding dysfunction: Status: Acute Code(s): N39.8 - Other specified disorders of urinary system Assessment and Plan: She has no urinary concerns at this time No further antibiotics for now (4) Urinary retention: Status: Acute Code(s): R33.9 - Retention of urine, unspecified (5) Jennifer-Danlos disease: Status: Acute Code(s): Q79.60 - Jennifer-Danlos syndrome, unspecified (6) Osteogenesis imperfecta: Status: Acute Code(s): Q78.0 - Osteogenesis imperfecta (7) Myofascial pain syndrome: Status: Acute Code(s): M79.18 - Myalgia, other site Plan HPI: Patient is a 39-year-old female with history of Jennifer Danlos syndrome, osteogenesis imperfecta, myofascial pain syndrome, migraines, juvenile osteoporosis, asthma, and mood disorder with history of rectocele, vaginal mesh surgery, urinary retention requiring Van catheterization, which was recently restarted. Patient?presented?to?[facility]?on?924?following?intentional?overdose?on?muscle?relaxers.??Patient?however?was?immediately?transferred?to?medical?floor?for?urinary?retention;?she?stabilized?there?and?was?discharged.?? She?presents?again?for?overdose On?gabapentin?and?trazodone,?Which?she?asserts?was?not?intentional (though later admits it was),?saying?she?just?wanted?to?sleep?and?get?relief?from?chronic?pain However?she?agrees?it?was?impulsive?and?unsafe.??Patient?currently?denies?any?SI.??She?reports?however?that?life?has?been?very?difficultff?pain?medications,?having?been?prescribed?opioids?consistently?for?the?past?24?years,? as?well?as?Ativan.??Patient?agrees?she?needs Help?stabilizing?and?coping. Relevant Medical/psych History: Patient was on opiates scheduled for 24 years to manage chronic medical comorbidities, resulting in hx of multiple fractures/falls and subsequent chronic pain. Pt denies any hx of substance abuse, including cannabis. She did screen positive for Fentanyl at first admission in October 2024 but is adamant she's never used it in her life and no quantitative labs done (leaving Fentanyl use inconclusive). Patients long-time physician of [address] Brigido Dietrich retired and new PCP tapered her off and discontinued all opioid pain management (also tapered and dc'd ativan). Patient reports she has been in constant pain and discomfort since then and has felt very frustrated and challenged to enjoy life, sometimes challenging her desire to live. Discussed?case?with?MAGDA Dunaway from pain management clinic: pt seen on 05/24. EMPLOYEE OPERATIONS EXAMINER Gume agrees that patients medical comorbidities and subsequent chronic pain syndrome are commonly treated with opioid pain management. She recommends either Butrans patch or preferably Belbucha films (a form of Buprenorphin and titrating it to 150mg BID). Pt is also appropriate to get other nerve blocking treatments at pain clinic who will f/u with pt. Shell Shop Supervisor spoke with patient's PCP Dr. Rubio at [facility] Dr. Rubio reports concurs that patient has Osteogenesis imprefecta, Ehlos Danlos Pt was on opioids for 24 years with prior PCP. With [facility] she was on Oxycodine 30mg QID and Oxycontin 30mg daily. In Sep 2023 pt was admitted to [facility] for concern for overdose. Additionally, there were other concerns including that [facility] notes referenced that patient reported being on a Fentanyl patch, which this provider had never prescribed. Additionally, there was hx of patient needing refills early and a report that her mother had used some of her medications. Also patient had significant weight loss which provider was concerned might have contributed to possible accidental overdose. Because of these concerns provider, clinic repeatedly called patient to come in and discuss pain management and reportedly reached out to her from October until January however patient did not respond or come in for appointments, having missed several. Provider reports that because of lack of communication and ongoing concern that was never addressed, Provider felt it was necessary to taper patient off pain medication which was started in January; patient was also tapered off Ativan. Provider agrees that patient does have significant medical history that is commonly treated with chronic pain medication. Shell Shop Supervisor discussed options with them and Dr. Rubio agrees that starting patient on a buprenorphine product is an acceptable alternative to oxycodone. Vraylar since depressed and hx of manic-esque IMPRESSION: Patient's?depression?and?SI?seem?to?have significant?situational component?as?she?is?No?longer?receiving?pain?management?for?severe,?chronic?pain. Patient?has?no?known?history?of?substance?abuse.??Although?she?did?screen?positive?for?fentanyl (on?10/27/2023 and?05/18/2024), No?quantitative?analysis?was?done. ?This?mean that?fentanyl?screen?could?very?well?be?a?false-positive?result (which is not uncommon). Medical?decision?should?not?be?based?on?only?a?positive?screen?for?fentanyl. Patient does struggle with SI and with her chronic?pain?And?poor?support?will?likely?continue?to?produce?mood?instability.??Treatment?plan?will?include?technical document writer/team?discussion?with Outpatient?PCP?regarding?plan?for?treatment. Hospital course: 06/05: Continue current regimen and plans 06/06. Continue current plans and regimen. Loperamide was put on hold. Started on simethicone by hospitalist. No indications of GI bleeding currently. -seen by GI: C/o constipation and worsening abdominal distension. Will order CT A/P with IV/PO contrast to assess for SBO/ileus though passage of gas and small amount of stool argues against complete obstruction; however she is at risk given multiple surgeries. If no obstruction will order bowel regimen to address constipation. Continue Van, Urology following. 06/07 Patient reports that she is depressed. She apologized for not being more forthcoming earlier on in says it took her awhile to admitted to herself but she does not want to be in this world anymore... And has a plan to jump in front of a train on discharge. Patient also reports that overdose on trazodone/gabapentin was actually an intentional suicide attempt. She reports a constant deluge of self-deprecating thoughts which include that she is worthless, discussed in, and fat. Shell Shop Supervisor reviewed patient's history of anorexia and patient reports she sees herself as fat every day and eats very little (history of anorexia since 14 years old; was at brought up oral for a month with a feeding tube; she understands that this is a significant cause of her chronic constipation). Despite her SI, patient does want help getting better agrees to try antidepressant medication; technical document writer reviewed options and risks/side effects and patient with Vraylar. Also discussed pain medication management and patient agrees with Belbuca which she has heard of; she also agrees to non opioid pain management and will follow-up with pain management Clinic here at [facility]. Discussed relationship with her mother and she does not SA think her mother struggles with drug addiction but has caught her trying to get into her room, which patient keeps locked, looking for her medications which she has taken in the past. Patient said she reported this to her PCP. Patient does have history of being prescribed fentanyl patch however she did not like them and weaned herself off of them; set had some left over 06/08 Patient remains depressed with suicidal thinking however is trying to be hopeful and has tolerated Vraylar and says will continue, with increased dose; grateful for help getting Belbuca through prior authorization. -Discussed case with urology who recommends remaining with indwelling Van since failed voiding attempt on 06/03; will continue to follow -pt reported and nurse corroborated that Van bag containing urine was blood-tinged; discussed with Urologist, deemed likely micro trauma, and to keep van in place; recently failed voiding trial on 06/03 06/09 Patient reports she remains depressed, with SI. Patient also reports she had a very difficult time sleeping last night feeling very upset following a conversation she had on the phone with her mother. Patient expressed to her mother she is feeling hurt that her mom has not visited or called throughout her admission, even on patient's birthday; she says her mom was on apologetic. Patient also challenged her mom regarding her mom's past comment that patient could burn in hell with her father (who 2 years ago); mom remained unapologetic. Patient tells technical document writer she has no idea why her mom said this other than that her mom is crazy... Subsequently patient reports that throughout the night, she had racing thoughts and no sleep. Discussed medications and patient and pt is eager to try Belbuca Films for pain management, available today dc'd gabapentin; pt said has never helped for pain or anxiety Adding clonidine at bedtime to help w/ sleep, anxiety 06/10 patient reports that Belbuca is helping with pain Patient remains very depressed and continues to have suicidal thoughts, saying she wants to end her life when she leaves the hospital. Patient Says I do not understand myself.. And laments she is gone most of her life without any suicidal ideation and only started this past September. Patient shared about some other reasons that it might be occurring and agrees that she still mourning the loss of her father who was her confidante; dealing with chronic pain having been off pain medications for several months and the ongoing struggles in her relationship with her mother and brother whom she feels are bullying; trying to come to terms with the fact that her mother simply isn't going to be the kind of mother she wishes she had. Patient agrees to medication management. 06/13 still very depressed with SI. Sleeping better however which is helpful and pain medications are also helpful. Patient agrees to increasing Vraylar; agrees to behavioral activation and attending groups. Despite ongoing thoughts about self-harm and ending her life when she is discharge, patient is also future oriented and says she would like to find a new place to live separate from her mother and brother. Asks for help going about that. 06/14 pt remains depressed, positive for SI with a plan but also future oriented talking about changing her living situation. Pt is engaged in treatment, trying to process her suicidal feelings and trying to be hopeful it will resolve. Agrees to adding Wellbutrin. -will likely add Wellbutrin; however, will probably keep Vraylar (maybe at lower dose) since pt has hx of manic-esque episodes (thought not formally diagnosed with bipolar as episode had several contributory factors) 06/15 remains depressed but processing feelings, doing worksheets, talking about her mother. Pt very anxious. -may increase wellbutrin for depression -considered starting Clonazepam 0.5mg BID; pt used to be on as much as 5mg of ativan daily; was weened off so hesitant to restart benzo's; 06/17 increase Wellbutrin 06/20 Over the weekend, patient assessed for infection, starting antibiotic; concerned that indwelling Van catheter is not sustainable; urology consulted and plan was for suprapubic catheter insertion for today. Patient however did not get fully informed of this and was upset to learn that a procedure was planned. She was however able to discuss this at length with technical document writer and urology team and agreed to proceed. 06/21 Dr. Niño decided better to do a cystoscopy 1st and then decide whether not suprapubic catheter verse bladder stimulator; patient consents Seen by infectious disease: She has no urinary concerns at this time..No further antibiotics for now 06/22 Patient discussed conversation she had with her brother that was reassuring. Patient felt understood by him and supported which has lifted her mood. She feels that although she still depressed perhaps some of the depression is lifting and she starting to feel that there is hope of change in her situation. Patient remains very anxious. Earlier she had said she did not want to get back on benzodiazepines, having been on Ativan 5 mg for decades, weaned off only about a year ago. However given patient's struggles with anxiety and the fact that benzos have helped her in the past, discussed restarting a benzodiazepine, this time clonazepam 0.5 mg b.i.d.; technical document writer discussed at length risks for addiction and the constant desire to have more. Patient said she very much does not want that to happen and feels that she will be able to minimize her use 06/23 Depressed, with intermittent SI. very anxious and with despairing thoughts has upcoming anniversary of her father's which is this July 03; will try to make it remembrance day and change the perspective. -Feeling better about catheter and plan; technical document writer discussed with urology who met with patient and plan is for July 05 to move forward with stimulator -patient attending groups and engaged in treatment 06/24 a little better; mood up and down and still intermittent SI but patient is working on being hopeful employee numerous coping skills. Agrees to increase Wellbutrin 06/25 Patient continues to report depressed mood; told nurse that she remains purging daily and still plans to attempt suicide when she leaves. However on the unit, she seems more relaxed. Patient shared with technical document writer her plan to remember her father on the anniversary of his . 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 Currently she is eating enough. As this is a chronic problem that that has gone on for over 20 years, and with which patient has been able to cope with on her own, without needing hospitalizations or [facility] admissions since teenage years, technical document writer does not expect that it will resolve during this inpatient stay and does not believe that it needs to. 06/27 very tearful sad; suicidal; pushing self to be around others, groups -talked about eating struggles, purging; trying not to 06/28 do not think that medication management will change patients depression at this time. Rather she needs continued time to process her feelings of despair, grief about her fathers , hx of trauma, feeling her future is bleak. -technical document writer engaged in psychodynamic psychotherapy 06/29 same presentation; technical document writer engaged in psychodynamic psychotherapy 06/30: feels clonidine and klonopin helpful for anxiety. asking for pain med change; deferred for return of attending, does not appear in pain. Q5s for SI/van. technical staff engineer feel pt is not substantially worse than her recent inpatient baseline, but perhaps looking a bit better today than yesterday. 07/01: appears behaving as per usual for inpatient context. increase seroquel to 150 QHS for insomnia and appetite stimulation. continue current mgmt otherwise. 07/02: Continues depressed with suicidal thoughts. Says she wants to starve self. VSS. Check metabolic panel. 07/04 Patient continues to lament her past and anger and frustration with specific relationships. Says still feels hopeless can not stop thinking about ending her life. Discussed more about taking responsibility for feelings and while anger and frustration at others can be appropriate, it is also necessary to work on coping with such feelings. Patient said she will continue to try. Discussed history and patient has not really had SI till this October and discussed how these feelings will also pass... Discussed medication management and patient agreed to trial of lithium for continued depression and chronic SI. and increasing Vraylar -patient considers ending her life by starving herself though she has been eating on the unit. -discussed surgical implantation of bladder stimulator tomorrow 07/05 received?bladder?stimulator;?remains?with?indwelling?catheter?which?will?be?removed?tomorrow?or?the?following?day. -increased?Vraylar?to?6?mg 07/06 continue?with?treatment?plan;??Aba Good?helping?with?implanted?bladder?stim 07/07 adjusting to new device, bladder scan; discussed?how?history?of?trauma?left?patient?needing?to?a?certain?sense?of?control Over?her?life?in?body?which?likely?plays?a?part?into?developing?anorexia,?SI...??This?idea?resonate?with?patient? who?agreed?that?she?is?overly?focused?on?blaming?others?and?giving?to?little?attention?to?how?to?work?on Her?own?personal?issues. 07/08?continue?current?treatment?plan?except?will?increase?lithium?to?help?with?depression Patient?continues?to?make?statements?that?she?is?thinking?of?ending?her?life.??In?the?same?conversation?however?she?will?also?discuss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
[2024-07-22] MEDS: Ondansetron ODT 4 MG TAB.RAPDIS TRANSLINGU (10:45)
[2024-07-22 12:12] VITALS: BP 103/63
[2024-07-22] MEDS: hydrOXYzine HCL 25 MG TABLET PO (12:12)
[2024-07-22] MEDS: cloNIDine HCL 0.1 MG TABLET PO ×2 (12:12→22:55)
[2024-07-22] MEDS: Acetaminophen 325 MG TABLET 975 MG PO (15:59)
[2024-07-22 20:00] VITALS: BP 107/68; PULSE 79; RESP 16; TEMP 36.8; O2SAT 98
[2024-07-22] MEDS: QUEtiapine Fumarate 50 MG TABLET 150 MG PO (22:53)
[2024-07-22] MEDS: Tamsulosin HCL 0.4 MG CAPSULE PO (22:54)
[2024-07-22 22:55] VITALS: BP 113/71
[2024-07-22] MEDS: Lithium Carbonate ER 300 MG TABLET.ER 600 MG PO (22:55)
[2024-07-23 09:00] VITALS: BP 130/68; PULSE 96; RESP 16; TEMP 36.6; O2SAT 96
[2024-07-23] MEDS: buPROPion HCl XL 150 MG TAB.ER.24H 450 MG PO (09:03)
[2024-07-23] MEDS: Cariprazine HCl 3 MG CAPSULE 6 MG PO (09:04)
[2024-07-23] MEDS: Bethanechol Chloride 25 MG TABLET PO ×3 (09:04→22:33)
[2024-07-23] MEDS: Ascorbic Acid 500 MG TABLET 1000 MG PO (09:04)
[2024-07-23] MEDS: clonazePAM 0.5 MG TABLET PO ×2 (09:04→16:31)
[2024-07-23] MEDS: BUPRENORPHINE 75 MCG 1 EACH PO ×2 (09:05→22:18)
[2024-07-23] MEDS: traMADoL HCL 50 MG TABLET PO ×3 (09:06→22:20)
[2024-07-23] MEDS: Nicotine 7 MG PATCH.TD24 TRANSDERMA (10:21)
[2024-07-23 10:47] LABS: Alanine Aminotransferase 43 U/L (0-31); Albumin Level 4.1 g/dL (3.5-5.0); Alkaline Phosphatase 47 U/L (39-117); Anion Gap 12 (12-20); Aspartate Amino Transferase 40 U/L (5-31); Bilirubin Total 0.4 mg/dL (0.0-1.0); Blood Urea Nitrogen 15 mg/dL (9-16); Calcium 9.7 mg/dL (8.4-10.2); Carbon Dioxide 26 mmol/L (22-29); Chloride 109 mmol/L (96-108); Creatinine Clr Calc Pharmacy 58.8; Estimated Glomerular Filt Rate > 60; Glucose Random 84 mg/dL (60-115); Sodium 143 mmol/L (135-145); Total Protein 6.4 g/dL (6.5-8.0)
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
[2024-07-23 14:17] VITALS: BP 113/79
[2024-07-23] MEDS: hydrOXYzine HCL 25 MG TABLET PO ×2 (14:17→22:18)
[2024-07-23] MEDS: cloNIDine HCL 0.1 MG TABLET PO ×2 (14:17→22:18)
[2024-07-23 20:00] VITALS: BP 112/75; PULSE 86; RESP 18; TEMP 36.9; O2SAT 99
[2024-07-23] MEDS: Tamsulosin HCL 0.4 MG CAPSULE PO (22:18)
[2024-07-23] MEDS: Lithium Carbonate ER 300 MG TABLET.ER 600 MG PO (22:19)
[2024-07-23] MEDS: QUEtiapine Fumarate 50 MG TABLET 150 MG PO (22:20)
[2024-07-24 08:00] VITALS: BP 119/72; PULSE 77; RESP 16; TEMP 36.5; O2SAT 99
[2024-07-24] MEDS: Cariprazine HCl 3 MG CAPSULE 6 MG PO (08:34)
[2024-07-24] MEDS: Ascorbic Acid 500 MG TABLET 1000 MG PO (08:34)
[2024-07-24] MEDS: BUPRENORPHINE 75 MCG 1 EACH PO ×2 (08:34→21:52)
[2024-07-24] MEDS: clonazePAM 0.5 MG TABLET PO ×2 (08:35→16:47)
[2024-07-24] MEDS: Bethanechol Chloride 25 MG TABLET PO ×3 (08:35→21:53)
[2024-07-24] MEDS: buPROPion HCl XL 150 MG TAB.ER.24H 450 MG PO (08:35)
--- NOTE | 2024-07-24 09:18 | P.PNPSI_ITS ---
Subjective Subjective Date of Service: 07/24/24 Reason For Visit: SI Interim History: RN reports patient now saying she is unable to self cathetarise consistently. Was found to have 500 cc urinary residual. Another occasion she had 300 cc. May be intermittently successful or voiding at times. Hard to say. Patient says she is unable to self cath. She says she used to do it 12 years ago but doesn't know how to now. She says the bladder stimulator is not helping her void. She continues to voice SI if she ends up going back home to live with her mom who she says her voice gets her anxious and hypervigilant and suicidal. She is abusive to her and invalidating. She was clear she wouldn't hurt herself if her discharge plan didn't include going home at some point. Having some sore throat. No fevers. Cepacol helps. Safe on the unit. Review of Systems Review of Systems Urinary retention Yes all other systems are reviewed and are negative Mental Status Exam Mental Status Exam Narrative: Pt is alert and oriented; behavior is cooperative, friendly and calm, brighter and more engaged; patient is not in distress; dressed in casual attire with braided hair, glasses, adequate hygiene; mood is described as ok and affect congruent, overall brighter; eye contact appropriate; Speech is normal rate, volume and prosody and not pressured; no psychomotor agitation/retardation present; thought process is organized and goal directed; Thought content is on dealing with strong feelings, overcoming SI; otherwise pertinent to relevant topics and without any delusional content, paranoid ideations or grandiosity; SI contingent on her return home. There is no evidence of perceptual disturbance. Patients insight and judgment impaired but overall improved. Patient Appearance: Well Grooomed and Appropriate Patient Orientation: Person, Place, Time and Situation Level of Consciousness: Awake Patient Behavior: Appropriate and Cooperative Behavior Comments: somatic focus Mood Description: Calm Affect Description: Calm Patient Cognition Impaired: No Ability to Follow Directions: Fair Speech Pattern: Clear Diagnostics Vital Signs (24Hr): Vital Signs - 24 hr 07/23/24 14:17 07/23/24 20:00 07/24/24 08:00 Temperature 98.4 F 97.7 F Pulse Rate 86 77 Respiratory Rate 18 16 Blood Pressure 113/79 112/75 119/72 Pulse Oximetry 99 99 Oxygen Delivery Method Room Air Room Air BMI result Body Mass Index 16.1 Labs 07/07/24 14:53 07/23/24 10:21 Labs: Laboratory Results - last 48 hr 07/23/24 10:21 Sodium 143 Potassium 4.0 Chloride 109 H Carbon Dioxide 26 Anion Gap 12 BUN 15 Creatinine 0.76 Estim Creat Clear Calc 58.8 Estimated GFR > 60 Random Glucose 84 Calcium 9.7 Total Bilirubin 0.4 AST 40 H ALT 43 H Alkaline Phosphatase 47 Total Protein 6.4 L Albumin 4.1 Imaging Radiology Impressions: ITS Impressions KUB X-Ray 06/03/24 19:55 IMPRESSION: Increased amount of stool in the colon suggesting constipation. Please correlate with clinical presentation. Electronically signed by: Oneida Pham MD 06/04/2024 07:31 AM EDT Renal Ultrasound 06/04/24 14:49 IMPRESSION: No ultrasound evidence of renal obstruction or hydronephrosis. Limited visualization of the left kidney obscured by bowel gas, exam otherwise unremarkable. Electronically signed by: Oneida Pham MD 06/05/2024 12:56 PM EDT Abdomen/Pelvis CT 06/04/24 18:33 IMPRESSION: Severe constipation. Otherwise unremarkable CT abdomen and pelvis. Fleischner guidelines were followed. Electronically signed by: Deyvi Collins MD 06/04/2024 07:05 PM EDT Ribs X-Ray 06/19/24 10:15 IMPRESSION: 1. Mild degenerative changes of the left shoulder. 2. No left-sided rib fracture. Electronically signed by: Orlando Lindsey MD 06/19/2024 10:50 AM EDT Shoulder X-Ray 06/19/24 10:15 IMPRESSION: 1. Mild degenerative changes of the left shoulder. 2. No left-sided rib fracture. Electronically signed by: Orlando Lindsey MD 06/19/2024 10:50 AM EDT Elbow X-Ray 07/21/24 15:35 IMPRESSION: LEFT ELBOW: No acute fracture or dislocation. LEFT FOREARM: No acute fracture or dislocation. Chronic deformity of the distal radius and ulna, likely postsurgical. LEFT WRIST: No acute fracture or dislocation. Distal radial and ulnar hardware. Moderate radiocarpal osteoarthritis. Electronically signed by: Clifford Nails MD 07/21/2024 04:08 PM EST RP Forearm X-Ray 07/21/24 15:35 IMPRESSION: LEFT ELBOW: No acute fracture or dislocation. LEFT FOREARM: No acute fracture or dislocation. Chronic deformity of the distal radius and ulna, likely postsurgical. LEFT WRIST: No acute fracture or dislocation. Distal radial and ulnar hardware. Moderate radiocarpal osteoarthritis. Electronically signed by: Clifford Nails MD 07/21/2024 04:08 PM EST RP Wrist X-Ray 07/21/24 15:35 IMPRESSION: LEFT ELBOW: No acute fracture or dislocation. LEFT FOREARM: No acute fracture or dislocation. Chronic deformity of the distal radius and ulna, likely postsurgical. LEFT WRIST: No acute fracture or dislocation. Distal radial and ulnar hardware. Moderate radiocarpal osteoarthritis. Electronically signed by: Clifford Nails MD 07/21/2024 04:08 PM EST RP Medications Medications Current Medications Acetaminophen (Acetaminophen 325 Mg Tablet) 975 mg PO Q8H [facility] Last Admin: 07/24/24 08:39 Dose: Not Given Al Hydroxide/Mg Hydroxide (Magnesium Hydrox/Alum Hydrox 30 Ml Oral.Susp) 30 ml PO Q6H PRN PRN Reason: Heartburn/Nausea Albuterol Sulfate (Albuterol Sulfate 90 Mcg 8 Gm Inhaler) 2 puff INHALE QID PRN PRN Reason: Shortness Of Breath Last Admin: 07/08/24 09:54 Dose: 2 puff Ascorbic Acid (Ascorbic Acid 500 Mg Tablet) 1,000 mg PO DAILY [facility] Last Admin: 07/24/24 08:34 Dose: 1,000 mg Benzocaine (Throat Lozenge, Medicated Lozenge) 1 lozenge MUCOUS MEM Q2H PRN PRN Reason: Sore Throat Last Admin: 07/10/24 16:08 Dose: 1 lozenge Bethanechol Chloride (Bethanechol Chloride 25 Mg Tablet) 25 mg PO TID [facility] Last Admin: 07/24/24 08:35 Dose: 25 mg Bisacodyl (Bisacodyl 5 Mg Tablet.Dr) 10 mg PO BEDTIME [facility] Last Admin: 07/23/24 22:33 Dose: Not Given Bupropion HCl (Bupropion Hcl Xl 150 Mg Tab.Er.24h) 450 mg PO DAILY [facility] Last Admin: 07/24/24 08:35 Dose: 450 mg Cariprazine (Cariprazine Hcl 3 Mg Capsule) 6 mg PO DAILY [facility] Last Admin: 07/24/24 08:34 Dose: 6 mg Clonazepam (Clonazepam 0.5 Mg Tablet) 0.5 mg PO BID@0900,1700 [facility] Last Admin: 07/24/24 08:35 Dose: 0.5 mg Clonidine HCl (Clonidine Hcl 0.1 Mg Tablet) 0.1 mg PO BEDTIME [facility]; Protocol Last Admin: 07/23/24 22:18 Dose: 0.1 mg Clonidine HCl (Clonidine Hcl 0.1 Mg Tablet) 0.1 mg PO Q4H PRN; Protocol PRN Reason: anxiety Last Admin: 07/23/24 14:17 Dose: 0.1 mg Hydroxyzine HCl (Hydroxyzine Hcl 25 Mg Tablet) 25 mg PO Q6H PRN PRN Reason: Anxiety Last Admin: 07/23/24 22:18 Dose: 25 mg Lactulose (Lactulose 20 Gm/30 Ml Solution) 40 gm PO DAILY [facility] Last Admin: 07/24/24 08:38 Dose: Not Given Lidocaine (Lidocaine 4 % Patch Adh..Patch) 1 patch TRANSDERMA DAILY [facility]; Protocol Last Admin: 07/24/24 08:38 Dose: Not Given Lidocaine (Lidocaine 4 % Patch Adh..Patch) 2 patch TRANSDERMA DAILY [facility]; Protocol Last Admin: 07/24/24 08:38 Dose: Not Given Lidocaine HCl (Lidocaine Hcl 2 % Urojet 10 Ml Jel.Pf.Luis) 10 ml TOPICAL BID PRN PRN Reason: Pain, Severe (Pain Scale 7-10) Last Admin: 06/19/24 22:05 Dose: 10 ml [place] Carbonate ([place] Carbonate Er 300 Mg Tablet.Er) 600 mg PO BEDTIME [facility] Last Admin: 07/23/24 22:19 Dose: 600 mg Loperamide HCl (Loperamide Hcl 2 Mg Capsule) 2 mg PO Q4H PRN PRN Reason: Diarrhea Magnesium Hydroxide (Milk Of Magnesia 30 Ml Oral.Susp) 30 ml PO DAILY PRN PRN Reason: Constipation Last Admin: 06/04/24 05:22 Dose: 30 ml Multi-Ingred Cream/Lotion/Oil/Oint (Mineral Oil/Petrolatum,White 106 Gm Tube) 1 appl TOPICAL BID PRN; Protocol PRN Reason: Dry Skin Last Admin: 06/13/24 21:44 Dose: 1 appl Nicotine (Nicotine 7 Mg Patch.Td24) 7 mg TRANSDERMA DAILY [facility] Last Admin: 07/24/24 08:38 Dose: Not Given Patient Own (Belbuca (75mcg Buccal Films)) 1 each PO BID [facility] Last Admin: 07/24/24 08:34 Dose: 1 each Ondansetron HCl (Ondansetron Odt 4 Mg Tab.Rapdis) 4 mg TRANSLINGU Q6H PRN PRN Reason: Nausea and Vomiting Last Admin: 07/22/24 10:45 Dose: 4 mg Polyethylene Glycol (Polyethylene Glycol 3350 17 Gm Powd.Pack) 17 gm PO BID [facility] Last Admin: 07/24/24 08:38 Dose: Not Given Quetiapine Fumarate (Quetiapine Fumarate 50 Mg Tablet) 150 mg PO BEDTIME [facility] Last Admin: 07/23/24 22:20 Dose: 150 mg Senna/Docusate Sodium (Sennosides/Docusate Sodium Tablet) 2 tab PO BID [facility] Last Admin: 07/24/24 08:38 Dose: Not Given Simethicone (Simethicone 80 Mg Tab.Chew) 160 mg PO BID PRN PRN Reason: bloating/gas Last Admin: 06/07/24 11:06 Dose: 160 mg Tamsulosin HCl (Tamsulosin Hcl 0.4 Mg Capsule) 0.4 mg PO BEDTIME [facility] Last Admin: 07/23/24 22:18 Dose: 0.4 mg Tramadol HCl (Tramadol Hcl 50 Mg Tablet) 50 mg PO Q6H PRN PRN Reason: Pain, Severe (Pain Scale 7-10) Last Admin: 07/23/24 22:20 Dose: 50 mg Allergies Allergies Allergy/AdvReac Type Severity Reaction Status Date / Time azithromycin Allergy Itching Verified 06/21/24 12:35 levofloxacin [From Levaquin] Allergy Nightmare Verified 06/21/24 12:35 nitrofurantoin Allergy Itching Verified 06/21/24 12:35 [From Macrodantin] Assessment & Plan Assessment & Plan (1) MDD (major depressive disorder), recurrent episode, moderate: Status: Acute Code(s): F33.1 - Major depressive disorder, recurrent, moderate (2) PTSD (post-traumatic stress disorder): Status: Acute Code(s): F43.10 - Post-traumatic stress disorder, unspecified (3) Voiding dysfunction: Status: Acute Code(s): N39.8 - Other specified disorders of urinary system Assessment and Plan: She has no urinary concerns at this time No further antibiotics for now (4) Urinary retention: Status: Acute Code(s): R33.9 - Retention of urine, unspecified (5) Jennifer-Danlos disease: Status: Acute Code(s): Q79.60 - Jennifer-Danlos syndrome, unspecified (6) Osteogenesis imperfecta: Status: Acute Code(s): Q78.0 - Osteogenesis imperfecta (7) Myofascial pain syndrome: Status: Acute Code(s): M79.18 - Myalgia, other site Plan HPI: Patient is a 39-year-old female with history of Jennifer Danlos syndrome, osteogenesis imperfecta, myofascial pain syndrome, migraines, juvenile osteoporosis, asthma, and mood disorder with history of rectocele, vaginal mesh surgery, urinary retention requiring Van catheterization, which was recently restarted. P atient?presented?to?[facility]?on?924?following?intentional?overdose?on?muscle?rel axers.??Patient?lujan mary?was?immediately?transferred?to?medical?floor?for?urinary?retention;?she?stab ilized?there?and?was?discharged.?? She?presents?again?for?overdose On?gabapentin?and?trazodone,?Which?she?asserts?was?not?intentional (though later admits it was),?saying?she?just?wanted?to?sleep?and?get?relief?from?chronic?pain H owever?she?agrees?it?was?impulsive?and?unsafe.??Patient?currently?denies?any?SI. ??She?reports?howeve r?that?life?has?been?very?difficultff?pain?medications,?having?been?prescribed?o pioids?consistently?for?the?past?24?years,? as?well?as?Ativan.??Patient?agrees?she?needs Help?stabilizing?and?coping. Relevant Medical/psych History: Patient was on opiates scheduled for 24 years to manage chronic medical comorbidities, resulting in hx of multiple fractures/falls and subsequent chronic pain. Pt denies any hx of substance abuse, including cannabis. She did screen positive for Fentanyl at first admission in October 2024 but is adamant she's never used it in her life and no quantitative labs done (leaving Fentanyl use inconclusive). Patients long-time physician of [address] Brigido Dietrich retired and new PCP tapered her off and discontinued all opioid pain management (also tapered and dc'd ativan). Patient reports she has been in constant pain and discomfort since then and has felt very frustrated and challenged to enjoy life, sometimes challenging her desire to live. Discussed?case?with?MAIL CLERK Vianey Dunaway from pain management clinic: pt seen on 05/24. MAIL CLERK Gume agrees that patients medical comorbidities and subsequent chronic pain syndrome are commonly treated with opioid pain management. She recommends either Butrans patch or preferably Belbucha films (a form of Buprenorphin and titrating it to 150mg BID). Pt is also appropriate to get other nerve blocking treatments at pain clinic who will f/u with pt. Manager Mba spoke with patient's PCP Dr. Rubio at [facility] Dr. Rubio reports concurs that patient has Osteogenesis imprefecta, Ehlos Danlos Pt was on opioids for 24 years with prior PCP. With [facility] she was on Oxycodine 30mg QID and Oxycontin 30mg daily. In Sep 2023 pt was admitted to [facility] for concern for overdose. Additionally, there were other concerns including that [facility] notes referenced that patient reported being on a Fentanyl patch, which this provider had never prescribed. Additionally, there was hx of patient needing refills early and a report that her mother had used some of her medications. Also patient had significant weight loss which provider was concerned might have contributed to possible accidental overdose. Because of these concerns provider, clinic repeatedly called patient to come in and discuss pain management and reportedly reached out to her from October until January however patient did not respond or come in for appointments, having missed several. Provider reports that because of lack of communication and ongoing concern that was never addressed, Provider felt it was necessary to taper patient off pain medication which was started in January; patient was also tapered off Ativan. Provider agrees that patient does have significant medical history that is commonly treated with chronic pain medication. Manager Mba discussed options with them and Dr. Rubio agrees that starting patient on a buprenorphine product is an acceptable alternative to oxycodone. Vraylar since depressed and hx of manic-esque IMPRESSION: Patient's?depression?and?SI?seem?to?have significant?situational component?as?she?is?No?longer?receiving?pain?management?for?severe,?chronic?pain . P atient?has?no?known?history?of?substance?abuse.??Although?she?did?screen?positiv e?for?fentanyl (on?10/27/2023 and?05/18/2024), No?quantitative?analysis?was?done. ?This?mean that?fentanyl?screen?could?very?well?be?a?false-positive?result (which is not uncommon). Medical?decision?should?not?be?based?on?only?a?positive?screen?for?fentanyl. Patient does struggle with SI and with her chronic?pain?And?poor?support?will?likely?continue?to?produce?mood?instability.? ?Treatment?plan?will?include?underwriter solicitation director/team?discussion?with Outpatient?PCP?regarding?plan?for?treatment. Hospital course: 06/05: Continue current regimen and plans 06/06. Continue current plans and regimen. Loperamide was put on hold. Started on simethicone by hospitalist. No indications of GI bleeding currently. -seen by GI: C/o constipation and worsening abdominal distension. Will order CT A/P with IV/PO contrast to assess for SBO/ileus though passage of gas and small amount of stool argues against complete obstruction; however she is at risk given multiple surgeries. If no obstruction will order bowel regimen to address constipation. Continue Van, Urology following. 06/07 Patient reports that she is depressed. She apologized for not being more forthcoming earlier on in says it took her awhile to admitted to herself but she does not want to be in this world anymore... And has a plan to jump in front of a train on discharge. Patient also reports that overdose on trazodone/gabapentin was actually an intentional suicide attempt. She reports a constant deluge of self-deprecating thoughts which include that she is worthless, discussed in, and fat. Manager Mba reviewed patient's history of anorexia and patient reports she sees herself as fat every day and eats very little (history of anorexia since 14 years old; was at brought up oral for a month with a feeding tube; she understands that this is a significant cause of her chronic constipation). Despite her SI, patient does want help getting better agrees to try antidepressant medication; underwriter solicitation director reviewed options and risks/side effects and patient with Vraylar. Also discussed pain medication management and patient agrees with Belbuca which she has heard of; she also agrees to non opioid pain management and will follow-up with pain management Clinic here at [facility]. Discussed relationship with her mother and she does not SA think her mother struggles with drug addiction but has caught her trying to get into her room, which patient keeps locked, looking for her medications which she has taken in the past. Patient said she reported this to her PCP. Patient does have history of being prescribed fentanyl patch however she did not like them and weaned herself off of them; set had some left over 06/08 Patient remains depressed with suicidal thinking however is trying to be hopeful and has tolerated Vraylar and says will continue, with increased dose; grateful for help getting Belbuca through prior authorization. -Discussed case with urology who recommends remaining with indwelling Van since failed voiding attempt on 06/03; will continue to follow -pt reported and nurse corroborated that Van bag containing urine was blood- tinged; discussed with Urologist, deemed likely micro trauma, and to keep van in place; recently failed voiding trial on 06/03 06/09 Patient reports she remains depressed, with SI. Patient also reports she had a very difficult time sleeping last night feeling very upset following a conversation she had on the phone with her mother. Patient expressed to her mother she is feeling hurt that her mom has not visited or called throughout her admission, even on patient's birthday; she says her mom was on apologetic. Patient also challenged her mom regarding her mom's past comment that patient could burn in hell with her father (who 2 years ago); mom remained unapologetic. Patient tells underwriter solicitation director she has no idea why her mom said this other than that her mom is crazy... Subsequently patient reports that throughout the night, she had racing thoughts and no sleep. Discussed medications and patient and pt is eager to try Belbuca Films for pain management, available today dc'd gabapentin; pt said has never helped for pain or anxiety Adding clonidine at bedtime to help w/ sleep, anxiety 06/10 patient reports that Belbuca is helping with pain Patient remains very depressed and continues to have suicidal thoughts, saying she wants to end her life when she leaves the hospital. Patient Says I do not understand myself.. And laments she is gone most of her life without any suicidal ideation and only started this past September. Patient shared about some other reasons that it might be occurring and agrees that she still mourning the loss of her father who was her confidante; dealing with chronic pain having been off pain medications for several months and the ongoing struggles in her relationship with her mother and brother whom she feels are bullying; trying to come to terms with the fact that her mother simply isn't going to be the kind of mother she wishes she had. Patient agrees to medication management. 06/13 still very depressed with SI. Sleeping better however which is helpful and pain medications are also helpful. Patient agrees to increasing Vraylar; agrees to behavioral activation and attending groups. Despite ongoing thoughts about self-harm and ending her life when she is discharge, patient is also future oriented and says she would like to find a new place to live separate from her mother and brother. Asks for help going about that. 06/14 pt remains depressed, positive for SI with a plan but also future oriented talking about changing her living situation. Pt is engaged in treatment, trying to process her suicidal feelings and trying to be hopeful it will resolve. Agrees to adding Wellbutrin. -will likely add Wellbutrin; however, will probably keep Vraylar (maybe at lower dose) since pt has hx of manic-esque episodes (thought not formally diagnosed with bipolar as episode had several contributory factors) 06/15 remains depressed but processing feelings, doing worksheets, talking about her mother. Pt very anxious. -may increase wellbutrin for depression -considered starting Clonazepam 0.5mg BID; pt used to be on as much as 5mg of ativan daily; was weened off so hesitant to restart benzo's; 06/17 increase Wellbutrin 06/20 Over the weekend, patient assessed for infection, starting antibiotic; concerned that indwelling Van catheter is not sustainable; urology consulted and plan was for suprapubic catheter insertion for today. Patient however did not get fully informed of this and was upset to learn that a procedure was planned. She was however able to discuss this at length with underwriter solicitation director and urology team and agreed to proceed. 06/21 Dr. Niño decided better to do a cystoscopy 1st and then decide whether not suprapubic catheter verse bladder stimulator; patient consents Seen by infectious disease: She has no urinary concerns at this time..No further antibiotics for now 06/22 Patient discussed conversation she had with her brother that was reassuring. Patient felt understood by him and supported which has lifted her mood. She feels that although she still depressed perhaps some of the depression is lifting and she starting to feel that there is hope of change in her situation. Patient remains very anxious. Earlier she had said she did not want to get back on benzodiazepines, having been on Ativan 5 mg for decades, weaned off only about a year ago. However given patient's struggles with anxiety and the fact that benzos have helped her in the past, discussed restarting a benzodiazepine, this time clonazepam 0.5 mg b.i.d.; underwriter solicitation director discussed at length risks for addiction and the constant desire to have more. Patient said she very much does not want that to happen and feels that she will be able to minimize her use 06/23 Depressed, with intermittent SI. very anxious and with despairing thoughts has upcoming anniversary of her father's which is this July 03; will try to make it remembrance day and change the perspective. -Feeling better about catheter and plan; underwriter solicitation director discussed with urology who met with patient and plan is for July 05 to move forward with stimulator -patient attending groups and engaged in treatment 06/24 a little better; mood up and down and still intermittent SI but patient is working on being hopeful employee numerous coping skills. Agrees to increase Wellbutrin 06/25 Patient continues to report depressed mood; told nurse that she remains purging daily and still plans to attempt suicide when she leaves. However on the unit, she seems more relaxed. Patient shared with underwriter solicitation director her plan to remember her father on the anniversary of his . 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 Currently she is eating enough. As this is a chronic problem that that has gone on for over 20 years, and with which patient has been able to cope with on her own, without needing hospitalizations or [facility] admissions since teenage years, underwriter solicitation director does not expect that it will resolve during this inpatient stay and does not believe that it needs to. 06/27 very tearful sad; suicidal; pushing self to be around others, groups -talked about eating struggles, purging; trying not to 06/28 do not think that medication management will change patients depression at this time. Rather she needs continued time to process her feelings of despair, grief about her fathers , hx of trauma, feeling her future is bleak. -underwriter solicitation director engaged in psychodynamic psychotherapy 06/29 same presentation; underwriter solicitation director engaged in psychodynamic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
[2024-07-24] MEDS: traMADoL HCL 50 MG TABLET PO ×2 (09:27→18:07)
[2024-07-24] MEDS: Nicotine 7 MG PATCH.TD24 TRANSDERMA (09:27)
[2024-07-24] MEDS: hydrOXYzine HCL 25 MG TABLET PO (11:52)
[2024-07-24 11:53] VITALS: BP 117/78
[2024-07-24] MEDS: cloNIDine HCL 0.1 MG TABLET PO ×2 (11:53→21:53)
[2024-07-24] MEDS: Throat Lozenge, Medicated LOZENGE 1 LOZENGE MUCOUS MEM (12:18)
--- NOTE | 2024-07-24 17:15 | PC.NURSE ---
Bladder stimulator in place. Pt reported discomfort and increased stimulation to left side. Pt adjusted left remote with good effect. Pt retaining urine today and unable to spontaneously void. Pt apprehensive with self cath technique and required education and assistance with each self cath. Two RN's present with pt in treatment room to provide self cath education and assistance x 3 today. Pt exhibited difficulty with self cath, and was unable to successfully perform self cath independently despite trying different positions and using a mirror. Each time pt required assistance with catheter insertion, and was only able to self cath with verbal cues and hands on assistance. Approximately 1600 Dr. Conner contacted RN with request for update on pt's voiding and cath'ing status. Dr. Conner made aware of pt's progress and retention issues. Per Dr. Conner, provider will assess pt tomorrow. Pt reports lack of confidence in skill and reported she did not feel ready to leave hospital before she was independent with cath care.
[2024-07-24 20:00] VITALS: BP 120/69; PULSE 89; O2SAT 98
[2024-07-24 21:53] VITALS: BP 120/69
[2024-07-24] MEDS: Lithium Carbonate ER 300 MG TABLET.ER 600 MG PO (21:53)
[2024-07-24] MEDS: Tamsulosin HCL 0.4 MG CAPSULE PO (21:54)
[2024-07-24] MEDS: QUEtiapine Fumarate 50 MG TABLET 150 MG PO (21:54)
[2024-07-25] MEDS: Acetaminophen 325 MG TABLET 975 MG PO ×2 (00:54→08:42)
--- NOTE | 2024-07-25 04:35 | PC.NURSE ---
Patient was bladder scanned at approximately 2215; scanner revealed 729 mL. Straight catheter emptied 700 mL of clear, dark yellow urine. Patient was encouraged to hydrate; patient responded I've been drinking lots of coffee and tea. Those are diuretics. I like to drink them so I can lose weight. Education provided at that time regarding necessity of proper hydration.
[2024-07-25 08:22] VITALS: BP 107/66; PULSE 73; TEMP 36.8; O2SAT 100
[2024-07-25] MEDS: Cariprazine HCl 3 MG CAPSULE 6 MG PO (08:41)
[2024-07-25] MEDS: clonazePAM 0.5 MG TABLET PO ×2 (08:42→16:45)
[2024-07-25] MEDS: Bethanechol Chloride 25 MG TABLET PO ×3 (08:42→22:19)
[2024-07-25] MEDS: Ascorbic Acid 500 MG TABLET 1000 MG PO (08:42)
[2024-07-25] MEDS: Nicotine 7 MG PATCH.TD24 TRANSDERMA (08:43)
[2024-07-25] MEDS: buPROPion HCl XL 150 MG TAB.ER.24H 450 MG PO (08:43)
[2024-07-25] MEDS: BUPRENORPHINE 75 MCG 1 EACH PO (08:44)
[2024-07-25] MEDS: traMADoL HCL 50 MG TABLET PO ×2 (09:09→18:13)
[2024-07-25 12:08] VITALS: BP 110/76; PULSE 91
[2024-07-25] MEDS: cloNIDine HCL 0.1 MG TABLET PO ×2 (12:08→22:18)
[2024-07-25] MEDS: hydrOXYzine HCL 25 MG TABLET PO (13:03)
--- NOTE | 2024-07-25 17:23 | P.PNPSI_ITS ---
Subjective Subjective Date of Service: 07/25/24 Reason For Visit: SI Interim History: Met with patient; discussed with team; reviewed chart Patient remains very anxious about discharging to her mother's. Patient intermittently made comments over the past few days that if she has to go back to her mother's house she will commit suicide. She explains that she does not want to commit suicide, that she wants to live and is hopeful about having a future life; she says what she wants most of all is to get her own place to live. However she finds it challenging that it will take time for her to get her own place and explains that she's afraid that her mother will say something triggering, that she'll get dark thoughts and want to end her life. Patient agrees that she has other options when feeling unsafe, such as calling crisis or calling her brother and she says she has plans to do this, but continues to worry. Patient remains without any other SI, future oriented and it is only this specific situation where she feels vulnerable to being triggered. That said, patient understands that she will likely have to returned her mother's at some point as getting into respite is difficult and she is not sure she has enough money to sustain living at a hotel. Patient continues to trouble shoots how she will cope with the stress of living there while finding her own place and says will listen to music, not interact with her mother or brother and get out of the house as much as possible. Patient continues to feel ready for discharge. Patient and keno writer/runner thoroughly discussed her journey during this admission and patient can point to many victories, saying I faced things for the 1st time... for which she is proud. She came to the realization and shared that it would not matter if she stayed on the unit for another 3 months, that she will always be afraid of discharge and worry about becoming suicidal and that a longer stay will not change this for her. While she feels safe on the unit, most of her does not want to remain and she agrees that at this point, she needs to face her struggles in the community to see how she does. Discussed self catheterization. Patient has successfully self catheterize herself for 2 days last week; over the weekend she started asking nursing to do it again, referencing her discomfort with her own body. Patient and keno writer/runner discuss this today and how history of trauma can bring forth uncomfortable feelings regarding genitalia; patient accepts that though it is difficult for her it is something she needs to accomplish and agrees to restart doing so. Later today patient urinated on her own and told keno writer/runner she had a happy accident.. Mental Status Exam Mental Status Exam Narrative: Pt is alert and oriented; behavior is cooperative, friendly and calm, brighter and more engaged, social with peers, laughing and enjoying milieu; patient is not in distress; dressed in hospital attire with adequate hygiene; mood is described as ok and affect congruent, overall brighter; eye contact appropriate; Speech is normal rate, volume and prosody and not pressured; no psychomotor agitation/retardation present; thought process is organized and goal directed; Thought content is on dealing with strong feelings, overcoming SI; otherwise pertinent to relevant topics and without any delusional content, paranoid ideations or grandiosity; no SI/no HI There is no evidence of perceptual disturbance. Patients insight and judgment fair, much improved, at baseline and adequate Diagnostics Vital Signs (24Hr): Vital Signs - 24 hr 07/24/24 20:00 07/24/24 21:53 07/25/24 08:22 Temperature 98.2 F Pulse Rate 89 73 Blood Pressure 120/69 120/69 107/66 Pulse Oximetry 98 100 Oxygen Delivery Method Room Air Room Air 07/25/24 12:08 07/25/24 12:08 Temperature Pulse Rate 91 Blood Pressure 110/76 110/76 Pulse Oximetry Oxygen Delivery Method BMI result Body Mass Index 16.1 Labs 07/07/24 14:53 07/23/24 10:21 Imaging Radiology Impressions: ITS Impressions KUB X-Ray 06/03/24 19:55 IMPRESSION: Increased amount of stool in the colon suggesting constipation. Please correlate with clinical presentation. Electronically signed by: Oneida Pham MD 06/04/2024 07:31 AM EDT Renal Ultrasound 06/04/24 14:49 IMPRESSION: No ultrasound evidence of renal obstruction or hydronephrosis. Limited visualization of the left kidney obscured by bowel gas, exam otherwise unremarkable. Electronically signed by: Oneida Pham MD 06/05/2024 12:56 PM EDT Abdomen/Pelvis CT 06/04/24 18:33 IMPRESSION: Severe constipation. Otherwise unremarkable CT abdomen and pelvis. Fleischner guidelines were followed. Electronically signed by: Deyvi Collins MD 06/04/2024 07:05 PM EDT RP Ribs X-Ray 06/19/24 10:15 IMPRESSION: 1. Mild degenerative changes of the left shoulder. 2. No left-sided rib fracture. Electronically signed by: Orlando Lindsey MD 06/19/2024 10:50 AM EDT RP Shoulder X-Ray 06/19/24 10:15 IMPRESSION: 1. Mild degenerative changes of the left shoulder. 2. No left-sided rib fracture. Electronically signed by: Orlando Lindsey MD 06/19/2024 10:50 AM EDT RP Elbow X-Ray 07/21/24 15:35 IMPRESSION: LEFT ELBOW: No acute fracture or dislocation. LEFT FOREARM: No acute fracture or dislocation. Chronic deformity of the distal radius and ulna, likely postsurgical. LEFT WRIST: No acute fracture or dislocation. Distal radial and ulnar hardware. Moderate radiocarpal osteoarthritis. Electronically signed by: Clifford Nails MD 07/21/2024 04:08 PM EST RP Forearm X-Ray 07/21/24 15:35 IMPRESSION: LEFT ELBOW: No acute fracture or dislocation. LEFT FOREARM: No acute fracture or dislocation. Chronic deformity of the distal radius and ulna, likely postsurgical. LEFT WRIST: No acute fracture or dislocation. Distal radial and ulnar hardware. Moderate radiocarpal osteoarthritis. Electronically signed by: Clifford Nails MD 07/21/2024 04:08 PM EST RP Wrist X-Ray 07/21/24 15:35 IMPRESSION: LEFT ELBOW: No acute fracture or dislocation. LEFT FOREARM: No acute fracture or dislocation. Chronic deformity of the distal radius and ulna, likely postsurgical. LEFT WRIST: No acute fracture or dislocation. Distal radial and ulnar hardware. Moderate radiocarpal osteoarthritis. Electronically signed by: Clifford Nails MD 07/21/2024 04:08 PM EST RP Medications Medications Current Medications Acetaminophen (Acetaminophen 325 Mg Tablet) 975 mg PO Q8H ELMO Last Admin: 07/25/24 16:46 Dose: Not Given Al Hydroxide/Mg Hydroxide (Magnesium Hydrox/Alum Hydrox 30 Ml Oral.Susp) 30 ml PO Q6H PRN PRN Reason: Heartburn/Nausea Albuterol Sulfate (Albuterol Sulfate 90 Mcg 8 Gm Inhaler) 2 puff INHALE QID PRN PRN Reason: Shortness Of Breath Last Admin: 07/08/24 09:54 Dose: 2 puff Ascorbic Acid (Ascorbic Acid 500 Mg Tablet) 1,000 mg PO DAILY [facility] Last Admin: 07/25/24 08:42 Dose: 1,000 mg Benzocaine (Throat Lozenge, Medicated Lozenge) 1 lozenge MUCOUS MEM Q2H PRN PRN Reason: Sore Throat Last Admin: 07/24/24 12:18 Dose: 1 lozenge Bethanechol Chloride (Bethanechol Chloride 25 Mg Tablet) 25 mg PO TID [facility] Last Admin: 07/25/24 16:45 Dose: 25 mg Bisacodyl (Bisacodyl 5 Mg Tablet.Dr) 10 mg PO BEDTIME [facility] Last Admin: 07/24/24 21:49 Dose: Not Given Bupropion HCl (Bupropion Hcl Xl 150 Mg Tab.Er.24h) 450 mg PO DAILY [facility] Last Admin: 07/25/24 08:43 Dose: 450 mg Cariprazine (Cariprazine Hcl 3 Mg Capsule) 6 mg PO DAILY [facility] Last Admin: 07/25/24 08:41 Dose: 6 mg Clonazepam (Clonazepam 0.5 Mg Tablet) 0.5 mg PO BID@0900,1700 [facility] Last Admin: 07/25/24 16:45 Dose: 0.5 mg Clonidine HCl (Clonidine Hcl 0.1 Mg Tablet) 0.1 mg PO BEDTIME [facility]; Protocol Last Admin: 07/24/24 21:53 Dose: 0.1 mg Clonidine HCl (Clonidine Hcl 0.1 Mg Tablet) 0.1 mg PO Q4H PRN; Protocol PRN Reason: anxiety Last Admin: 07/25/24 12:08 Dose: 0.1 mg Hydroxyzine HCl (Hydroxyzine Hcl 25 Mg Tablet) 25 mg PO Q6H PRN PRN Reason: Anxiety Last Admin: 07/25/24 13:03 Dose: 25 mg Lactulose (Lactulose 20 Gm/30 Ml Solution) 40 gm PO DAILY [facility] Last Admin: 07/25/24 08:31 Dose: Not Given Lidocaine (Lidocaine 4 % Patch Adh..Patch) 1 patch TRANSDERMA DAILY [facility]; Protocol Last Admin: 07/25/24 08:31 Dose: Not Given Lidocaine (Lidocaine 4 % Patch Adh..Patch) 2 patch TRANSDERMA DAILY [facility]; Protocol Last Admin: 07/25/24 08:31 Dose: Not Given Lidocaine HCl (Lidocaine Hcl 2 % Urojet 10 Ml Jel.Pf.Luis) 10 ml TOPICAL BID PRN PRN Reason: Pain, Severe (Pain Scale 7-10) Last Admin: 06/19/24 22:05 Dose: 10 ml Cotton Plant Carbonate (Cotton Plant Carbonate Er 300 Mg Tablet.Er) 600 mg PO BEDTIME [facility] Last Admin: 07/24/24 21:53 Dose: 600 mg Loperamide HCl (Loperamide Hcl 2 Mg Capsule) 2 mg PO Q4H PRN PRN Reason: Diarrhea Magnesium Hydroxide (Milk Of Magnesia 30 Ml Oral.Susp) 30 ml PO DAILY PRN PRN Reason: Constipation Last Admin: 06/04/24 05:22 Dose: 30 ml Multi-Ingred Cream/Lotion/Oil/Oint (Mineral Oil/Petrolatum,White 106 Gm Tube) 1 appl TOPICAL BID PRN; Protocol PRN Reason: Dry Skin Last Admin: 06/13/24 21:44 Dose: 1 appl Nicotine (Nicotine 7 Mg Patch.Td24) 7 mg TRANSDERMA DAILY [facility] Last Admin: 07/25/24 08:43 Dose: 7 mg Patient Own (Belbuca (75mcg Buccal Films)) 1 each PO BID [facility] Last Admin: 07/25/24 08:44 Dose: 1 each Ondansetron HCl (Ondansetron Odt 4 Mg Tab.Rapdis) 4 mg TRANSLINGU Q6H PRN PRN Reason: Nausea and Vomiting Last Admin: 07/22/24 10:45 Dose: 4 mg Polyethylene Glycol (Polyethylene Glycol 3350 17 Gm Powd.Pack) 17 gm PO BID [facility] Last Admin: 07/25/24 08:32 Dose: Not Given Quetiapine Fumarate (Quetiapine Fumarate 50 Mg Tablet) 150 mg PO BEDTIME [facility] Last Admin: 07/24/24 21:54 Dose: 150 mg Senna/Docusate Sodium (Sennosides/Docusate Sodium Tablet) 2 tab PO BID [facility] Last Admin: 07/25/24 08:32 Dose: Not Given Simethicone (Simethicone 80 Mg Tab.Chew) 160 mg PO BID PRN PRN Reason: bloating/gas Last Admin: 06/07/24 11:06 Dose: 160 mg Tamsulosin HCl (Tamsulosin Hcl 0.4 Mg Capsule) 0.4 mg PO BEDTIME [facility] Last Admin: 07/24/24 21:54 Dose: 0.4 mg Tramadol HCl (Tramadol Hcl 50 Mg Tablet) 50 mg PO Q6H PRN PRN Reason: Pain, Severe (Pain Scale 7-10) Last Admin: 07/25/24 09:09 Dose: 50 mg Allergies Allergies Allergy/AdvReac Type Severity Reaction Status Date / Time azithromycin Allergy Itching Verified 06/21/24 12:35 levofloxacin [From Levaquin] Allergy Nightmare Verified 06/21/24 12:35 nitrofurantoin Allergy Itching Verified 06/21/24 12:35 [From Macrodantin] Assessment & Plan Assessment & Plan (1) MDD (major depressive disorder), recurrent episode, moderate: Status: Acute Code(s): F33.1 - Major depressive disorder, recurrent, moderate (2) PTSD (post-traumatic stress disorder): Status: Acute Code(s): F43.10 - Post-traumatic stress disorder, unspecified (3) Voiding dysfunction: Status: Acute Code(s): N39.8 - Other specified disorders of urinary system Assessment and Plan: She has no urinary concerns at this time No further antibiotics for now (4) Urinary retention: Status: Acute Code(s): R33.9 - Retention of urine, unspecified (5) Jennifer-Danlos disease: Status: Acute Code(s): Q79.60 - Jennifer-Danlos syndrome, unspecified (6) Osteogenesis imperfecta: Status: Acute Code(s): Q78.0 - Osteogenesis imperfecta (7) Myofascial pain syndrome: Status: Acute Code(s): M79.18 - Myalgia, other site Plan HPI: Patient is a 39-year-old female with history of Jennifer Danlos syndrome, osteogenesis imperfecta, myofascial pain syndrome, migraines, juvenile osteoporosis, asthma, and mood disorder with history of rectocele, vaginal mesh surgery, urinary retention requiring Van catheterization, which was recently restarted. P atient?presented?to?[facility]?on?924?following?intentional?overdose?on?muscle?rel axers.??Patient?lujan mary?was?immediately?transferred?to?medical?floor?for?urinary?retention;?she?stab ilized?there?and?was?discharged.?? She?presents?again?for?overdose On?gabapentin?and?trazodone,?Which?she?asserts?was?not?intentional (though later admits it was),?saying?she?just?wanted?to?sleep?and?get?relief?from?chronic?pain H owever?she?agrees?it?was?impulsive?and?unsafe.??Patient?currently?denies?any?SI. ??She?reports?howeve r?that?life?has?been?very?difficultff?pain?medications,?having?been?prescribed?o pioids?consistently?for?the?past?24?years,? as?well?as?Ativan.??Patient?agrees?she?needs Help?stabilizing?and?coping. Relevant Medical/psych History: Patient was on opiates scheduled for 24 years to manage chronic medical comorbidities, resulting in hx of multiple fractures/falls and subsequent chronic pain. Pt denies any hx of substance abuse, including cannabis. She did screen positive for Fentanyl at first admission in October 2024 but is adamant she's never used it in her life and no quantitative labs done (leaving Fentanyl use inconclusive). Patients long-time physician of [address] Brigido Dietrich retired and new PCP tapered her off and discontinued all opioid pain management (also tapered and dc'd ativan). Patient reports she has been in constant pain and discomfort since then and has felt very frustrated and challenged to enjoy life, sometimes challenging her desire to live. Discussed?case?with?MAGDA Dunaway from pain management clinic: pt seen on 05/24. MAGDA Dunaway agrees that patients medical comorbidities and subsequent chronic pain syndrome are commonly treated with opioid pain management. She recommends either Butrans patch or preferably Belbucha films (a form of Buprenorphin and titrating it to 150mg BID). Pt is also appropriate to get other nerve blocking treatments at pain clinic who will f/u with pt. [employer] spoke with patient's PCP Dr. Rubio at [facility] Dr. Rubio reports concurs that patient has Osteogenesis imprefecta, [place] Damico Pt was on opioids for 24 years with prior PCP. With [facility] she was on Oxycodine 30mg QID and Oxycontin 30mg daily. In Sep 2023 pt was admitted to [facility] for concern for overdose. Additionally, there were other concerns including that [facility] notes referenced that patient reported being on a Fentanyl patch, which this provider had never prescribed. Additionally, there was hx of patient needing refills early and a report that her mother had used some of her medications. Also patient had significant weight loss which provider was concerned might have contributed to possible accidental overdose. Because of these concerns provider, clinic repeatedly called patient to come in and discuss pain management and reportedly reached out to her from October until January however patient did not respond or come in for appointments, having missed several. Provider reports that because of lack of communication and ongoing concern that was never addressed, Provider felt it was necessary to taper patient off pain medication which was started in January; patient was also tapered off Ativan. Provider agrees that patient does have significant medical history that is commonly treated with chronic pain medication. [employer] discussed options with them and Dr. Rubio agrees that starting patient on a buprenorphine product is an acceptable alternative to oxycodone. Vraylar since depressed and hx of manic-esque IMPRESSION: Patient's?depression?and?SI?seem?to?have significant?situational component?as?she?is?No?longer?receiving?pain?management?for?severe,?chronic?pain . P atient?has?no?known?history?of?substance?abuse.??Although?she?did?screen?positiv e?for?fentanyl (on?10/27/2023 and?05/18/2024), No?quantitative?analysis?was?done. ?This?mean that?fentanyl?screen?could?very?well?be?a?false-positive?result (which is not uncommon). Medical?decision?should?not?be?based?on?only?a?positive?screen?for?fentanyl. Patient does struggle with SI and with her chronic?pain?And?poor?support?will?likely?continue?to?produce?mood?instability.? ?Treatment?plan?will?include?keno writer/runner/team?discussion?with Outpatient?PCP?regarding?plan?for?treatment. Hospital course: 06/05: Continue current regimen and plans 06/06. Continue current plans and regimen. Loperamide was put on hold. Started on simethicone by hospitalist. No indications of GI bleeding currently. -seen by GI: C/o constipation and worsening abdominal distension. Will order CT A/P with IV/PO contrast to assess for SBO/ileus though passage of gas and small amount of stool argues against complete obstruction; however she is at risk given multiple surgeries. If no obstruction will order bowel regimen to address constipation. Continue Van, Urology following. 06/07 Patient reports that she is depressed. She apologized for not being more forthcoming earlier on in says it took her awhile to admitted to herself but she does not want to be in this world anymore... And has a plan to jump in front of a train on discharge. Patient also reports that overdose on trazodone/gabapentin was actually an intentional suicide attempt. She reports a constant deluge of self-deprecating thoughts which include that she is worthless, discussed in, and fat. [employer] reviewed patient's history of anorexia and patient reports she sees herself as fat every day and eats very little (history of anorexia since 14 years old; was at brought up oral for a month with a feeding tube; she understands that this is a significant cause of her chronic constipation). Despite her SI, patient does want help getting better agrees to try antidepressant medication; keno writer/runner reviewed options and risks/side effects and patient with [facility]. Also discussed pain medication management and patient agrees with Belbuca which she has heard of; she also agrees to non opioid pain management and will follow-up with pain management Clinic here at [facility]. Discussed relationship with her mother and she does not SA think her mother struggles with drug addiction but has caught her trying to get into her room, which patient keeps locked, looking for her medications which she has taken in the past. Patient said she reported this to her PCP. Patient does have history of being prescribed fentanyl patch however she did not like them and weaned herself off of them; set had some left over 06/08 Patient remains depressed with suicidal thinking however is trying to be hopeful and has tolerated Vraylar and says will continue, with increased dose; grateful for help getting Belbuca through prior authorization. -Discussed case with urology who recommends remaining with indwelling Van since failed voiding attempt on 06/03; will continue to follow -pt reported and nurse corroborated that Van bag containing urine was blood- tinged; discussed with Urologist, deemed likely micro trauma, and to keep van in place; recently failed voiding trial on 06/03 06/09 Patient reports she remains depressed, with SI. Patient also reports she had a very difficult time sleeping last night feeling very upset following a conversation she had on the phone with her mother. Patient expressed to her mother she is feeling hurt that her mom has not visited or called throughout her admission, even on patient's birthday; she says her mom was on apologetic. Patient also challenged her mom regarding her mom's past comment that patient could burn in hell with her father (who 2 years ago); mom remained unapologetic. Patient tells keno writer/runner she has no idea why her mom said this other than that her mom is crazy... Subsequently patient reports that throughout the night, she had racing thoughts and no sleep. Discussed medications and patient and pt is eager to try Belbuca Films for pain management, available today dc'd gabapentin; pt said has never helped for pain or anxiety Adding clonidine at bedtime to help w/ sleep, anxiety 06/10 patient reports that Belbuca is helping with pain Patient remains very depressed and continues to have suicidal thoughts, saying she wants to end her life when she leaves the hospital. Patient Says I do not understand myself.. And laments she is gone most of her life without any suicidal ideation and only started this past September. Patient shared about some other reasons that it might be occurring and agrees that she still mourning the loss of her father who was her confidante; dealing with chronic pain having been off pain medications for several months and the ongoing struggles in her relationship with her mother and brother whom she feels are bullying; trying to come to terms with the fact that her mother simply isn't going to be the kind of mother she wishes she had. Patient agrees to medication management. 06/13 still very depressed with SI. Sleeping better however which is helpful and pain medications are also helpful. Patient agrees to increasing Vraylar; agrees to behavioral activation and attending groups. Despite ongoing thoughts about self-harm and ending her life when she is discharge, patient is also future oriented and says she would like to find a new place to live separate from her mother and brother. Asks for help going about that. 06/14 pt remains depressed, positive for SI with a plan but also future oriented talking about changing her living situation. Pt is engaged in treatment, trying to process her suicidal feelings and trying to be hopeful it will resolve. Agrees to adding Wellbutrin. -will likely add Wellbutrin; however, will probably keep Vraylar (maybe at lower dose) since pt has hx of manic-esque episodes (thought not formally diagnosed with bipolar as episode had several contributory factors) 06/15 remains depressed but processing feelings, doing worksheets, talking about her mother. Pt very anxious. -may increase wellbutrin for depression -considered starting Clonazepam 0.5mg BID; pt used to be on as much as 5mg of ativan daily; was weened off so hesitant to restart benzo's; 06/17 increase Wellbutrin 06/20 Over the weekend, patient assessed for infection, starting antibiotic; concerned that indwelling Van catheter is not sustainable; urology consulted and plan was for suprapubic catheter insertion for today. Patient however did not get fully informed of this and was upset to learn that a procedure was planned. She was however able to discuss this at length with keno writer/runner and urology team and agreed to proceed. 06/21 Dr. Niño decided better to do a cystoscopy 1st and then decide whether not suprapubic catheter verse bladder stimulator; patient consents Seen by infectious disease: She has no urinary concerns at this time..No further antibiotics for now 06/22 Patient discussed conversation she had with her brother that was reassuring. Patient felt understood by him and supported which has lifted her mood. She feels that although she still depressed perhaps some of the depression is lifting and she starting to feel that there is hope of change in her situation. Patient remains very anxious. Earlier she had said she did not want to get back on benzodiazepines, having been on Ativan 5 mg for decades, weaned off only about a year ago. However given patient's struggles with anxiety and the fact that benzos have helped her in the past, discussed restarting a benzodiazepine, this time clonazepam 0.5 mg b.i.d.; keno writer/runner discussed at length risks for addiction and the constant desire to have more. Patient said she very much does not want that to happen and feels that she will be able to minimize her use 06/23 Depressed, with intermittent SI. very anxious and with despairing thoughts has upcoming anniversary of her father's which is this July 03; will try to make it remembrance day and change the perspective. -Feeling better about catheter and plan; keno writer/runner discussed with urology who met with patient and plan is for July 05 to move forward with stimulator -patient attending groups and engaged in treatment 06/24 a little better; mood up and down and still intermittent SI but patient is working on being hopeful employee numerous coping skills. Agrees to increase Wellbutrin 06/25 Patient continues to report depressed mood; told nurse that she remains purging daily and still plans to attempt suicide when she leaves. However on the unit, she seems more relaxed. Patient shared with keno writer/runner her plan to remember her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
--- NOTE | 2024-07-25 19:38 | P.DS_ITS ---
DS: Providers Provider Date of Service: 07/26/24 Date of admission: 06/01/24 18:14 Date of discharge: 07/26/24 Primary care physician: None Physician Attending physician on admission: Aurelio Hermosillo Consults: 05/30/24 09:09 Consult to Urology Stat Consulting Provider: [facility] Reason for consultation: van placed 05/21, ? removal for psych bed placement 06/03/24 09:49 Consult to Urology Routine Consulting Provider: [facility] Reason for consultation: van catheter hx bladder dx c/o pain Has provider been notified: No 06/04/24 14:00 Consult to Hospitalist Routine Comment: Consulting Provider: [facility] Hospitalists Reason For Exam: acute abdomen even after BM 06/06/24 05:53 Consult to Hospitalist Stat Comment: Consulting Provider: [facility] Hospital[facility] Reason For Exam: severe tarry black diarrhea. GI bleed 06/11/24 19:18 Consult to Hospitalist Routine Comment: Consulting Provider: [facility] Hospital[facility] Reason For Exam: ? beginning cellulitis L forearm/wrist 06/12/24 16:16 Consult to Hospitalist Routine Comment: Consulting Provider: [facility] Hospital[facility] Reason For Exam: L leg, ankle edema, L ankle pain 06/18/24 00:06 Consult to Hospitalist Stat Comment: Consulting Provider: [facility] Hospital[facility] Reason For Exam: Pain 10+/10 at site of Van catheter 06/18/24 15:52 Consult to Infectious Diseases Routine Consulting Provider: [facility] Reason for consultation: fungal uti Has provider been notified: No Attending physician on discharge: Aurelio Hermosillo DS: Diagnosis Discharge Diagnosis (1) MDD (major depressive disorder), recurrent episode, moderate: Status: Acute (2) PTSD (post-traumatic stress disorder): Status: Acute (3) Voiding dysfunction: Status: Acute (4) Urinary retention: Status: Acute (5) Jennifer-Danlos disease: Status: Acute (6) Osteogenesis imperfecta: Status: Acute (7) Myofascial pain syndrome: Status: Acute DS: Medications Discharge Medications Home Medications: Home Medications ?Medication ?Instructions ?Recorded ?Confirmed albuterol sulfate 90 mcg/actuation 2 puff inhalation QID PRN 05/18/24 05/26/24 aerosol inhaler Shortness Of Breath ascorbic acid (vitamin C) 1,000 mg 1,000 mg PO DAILY 05/26/24 05/26/24 tablet (Vitamin C) Previous Rx's ?Medication ?Instructions ?Recorded buprenorphine HCl 75 mcg buccal 75 mcg buccal BID 30 days #60 ea 07/09/24 film (Belbuca) Patient Own Medication 1 ea PO BID ##0 07/25/24 acetaminophen 325 mg tablet 975 mg (3 x 325 mg) PO Q8H #0 tabs 07/25/24 benzocaine 15 mg-menthol 3.6 mg 1 robina mucous membrane Q2H PRN Sore 07/25/24 lozenges (Sore Throat (benzocaine Throat #0 ea with menthol)) bethanechol chloride 25 mg tablet 25 mg PO TID #0 tabs 07/25/24 bupropion HCl 150 mg 24 hr tablet, 450 mg (3 x 150 mg) PO DAILY #0 07/25/24 extended release tabs cariprazine 3 mg capsule (Vraylar) 6 mg (2 x 3 mg) PO DAILY 30 days 07/25/24 #60 caps clonazepam 0.5 mg tablet 0.5 mg PO BID@0900,1700 #0 tabs 07/25/24 clonidine HCl 0.1 mg tablet 0.1 mg PO BEDTIME #0 tabs 07/25/24 clonidine HCl 0.1 mg tablet 0.1 mg PO Q4H PRN anxiety #0 tabs 07/25/24 hydroxyzine HCl 25 mg tablet 25 mg PO Q6H PRN Anxiety #0 tabs 07/25/24 lithium carbonate 300 mg 600 mg (2 x 300 mg) PO BEDTIME #0 07/25/24 tablet,extended release tabs nicotine 7 mg/24 hr daily 7 mg transdermal DAILY #0 ea 07/25/24 transdermal patch ondansetron 4 mg disintegrating 4 mg translingual Q6H PRN Nausea 07/25/24 tablet And Vomiting #0 tabs polyethylene glycol 3350 17 gram 17 g PO BID PRN constipation #0 ea 07/25/24 oral powder packet quetiapine 50 mg tablet 150 mg (3 x 50 mg) PO BEDTIME #0 07/25/24 tabs sennosides 8.6 mg-docusate sodium 2 tab PO BID #0 tabs 07/25/24 50 mg tablet (Senna Plus) tamsulosin 0.4 mg capsule 0.4 mg PO BEDTIME #0 caps 07/25/24 tramadol 50 mg tablet 50 mg PO Q6H PRN Pain, Severe 07/25/24 (Pain Scale 7-10) #0 tabs Data Data Completed and Pending Completed studies during hospitalization [Text1]: 07/23/24 10:21 Sodium 143 Potassium 4.0 Chloride 109 H Carbon Dioxide 26 Anion Gap 12 BUN 15 Creatinine 0.76 Estim Creat Clear Calc 58.8 Estimated GFR > 60 Random Glucose 84 Calcium 9.7 Total Bilirubin 0.4 AST 40 H ALT 43 H Alkaline Phosphatase 47 Total Protein 6.4 L Albumin 4.1 06/18/24 Unknown Urine Catheterized - Van Catheter Urine Culture - Final Escherichia coli Stenotrophomonas maltophilia 06/01/24 18:19 Urine clean catch - Clean Catch Midstream Urine Culture - Final Raissa glabrata 05/29/24 15:10 Urine Catheterized - Van Catheter Urine Culture - Final No growth. 05/25/24 20:16 Urine Catheterized - Van Catheter Urine Culture - Final Raissa glabrata Imaging Diagnostic Imaging Impressions KUB X-Ray 06/03/24 19:55 IMPRESSION: Increased amount of stool in the colon suggesting constipation. Please correlate with clinical presentation. Electronically signed by: Oneida Pham MD 06/04/2024 07:31 AM EDT Renal Ultrasound 06/04/24 14:49 IMPRESSION: No ultrasound evidence of renal obstruction or hydronephrosis. Limited visualization of the left kidney obscured by bowel gas, exam otherwise unremarkable. Electronically signed by: Oneida Pham MD 06/05/2024 12:56 PM EDT Abdomen/Pelvis CT 06/04/24 18:33 IMPRESSION: Severe constipation. Otherwise unremarkable CT abdomen and pelvis. Fleischner guidelines were followed. Electronically signed by: Deyvi Collins MD 06/04/2024 07:05 PM EDT Ribs X-Ray 06/19/24 10:15 IMPRESSION: 1. Mild degenerative changes of the left shoulder. 2. No left-sided rib fracture. Electronically signed by: Orlando Lindsey MD 06/19/2024 10:50 AM EDT Shoulder X-Ray 06/19/24 10:15 IMPRESSION: 1. Mild degenerative changes of the left shoulder. 2. No left-sided rib fracture. Electronically signed by: Orlando Lindsey MD 06/19/2024 10:50 AM EDT RP Elbow X-Ray 07/21/24 15:35 IMPRESSION: LEFT ELBOW: No acute fracture or dislocation. LEFT FOREARM: No acute fracture or dislocation. Chronic deformity of the distal radius and ulna, likely postsurgical. LEFT WRIST: No acute fracture or dislocation. Distal radial and ulnar hardware. Moderate radiocarpal osteoarthritis. Electronically signed by: Clifford Nails MD 07/21/2024 04:08 PM EST RP Forearm X-Ray 07/21/24 15:35 IMPRESSION: LEFT ELBOW: No acute fracture or dislocation. LEFT FOREARM: No acute fracture or dislocation. Chronic deformity of the distal radius and ulna, likely postsurgical. LEFT WRIST: No acute fracture or dislocation. Distal radial and ulnar hardware. Moderate radiocarpal osteoarthritis. Electronically signed by: Clifford Nails MD 07/21/2024 04:08 PM EST RP Wrist X-Ray 07/21/24 15:35 IMPRESSION: LEFT ELBOW: No acute fracture or dislocation. LEFT FOREARM: No acute fracture or dislocation. Chronic deformity of the distal radius and ulna, likely postsurgical. LEFT WRIST: No acute fracture or dislocation. Distal radial and ulnar hardware. Moderate radiocarpal osteoarthritis. Electronically signed by: Clifford Nails MD 07/21/2024 04:08 PM EST RP DS: Summary Hospital Course Hospital Course: HPI: Patient is a 39-year-old female with history of Jennifer Danlos syndrome, osteogenesis imperfecta, myofascial pain syndrome, migraines, juvenile osteoporosis, asthma, and mood disorder with history of rectocele, vaginal mesh surgery, urinary retention requiring Van catheterization, which was recently restarted. Patient?presented?to?[facility]?on?924?following?intentional?overdose?on?muscle?re laxers.??Patient?however?was?immedia tely?transferred?to?medical?floor?for?urinary?retention;?she?stabilized?there?an d?was?discharged.?? She?presents?again?for?overdose On?gabapentin?and?trazodone,?Which?she?asserts?was?not?intentional (though later admits it was),?saying?she?just?wanted?to?sleep?and?get?relief?from?chronic?pain However?she?agrees?it?was?impulsive?and?unsafe.??Patient?currently?denies?any?SI .??She?reports?however?carrie t?life?has?been?very?difficultff?pain?medications,?having?been?prescribed?opioid s?consistently?for?the?past?24?years,? as?well?as?Ativan.??Patient?agrees?she?needs Help?stabilizing?and?coping. Relevant Medical/psych History: Patient was on opiates scheduled for 24 years to manage chronic medical comorbidities, resulting in hx of multiple fractures/falls and subsequent chr onic pain. Pt denies any hx of substance abuse, including cannabis. She did screen positive for Fentanyl at first admission in October 2024 but is adamant she's never used it in her life and no quantitative labs done (leaving Fentanyl use inconclusive). Patients long-time physician of [address] Brigido Dietrich retired and new PCP tapered her off and discontinued all opioid pain management (also tapered and dc'd ativan). Patient reports she has been in constant pain and discomfort since then and has felt very frustrated and challenged to enjoy life, sometimes challenging her desire to live. Discussed?case?with?MAGDA Dunaway from pain management clinic: pt seen on 05/24. MAGDA Dunaway agrees that patients medical comorbidities and subsequent chronic pain syndrome are commonly treated with opioid pain management. She recommends either Butrans patch or preferably Belbucha films (a form of Buprenorphin and titrating it to 150mg BID). Pt is also appropriate to get other nerve blocking treatments at pain clinic who will f/u with pt. Farm Laborer spoke with patient's PCP Dr. Rubio at [facility] Dr. Rubio reports concurs that patient has Osteogenesis imprefecta, Ehlos Danlos Pt was on opioids for 24 years with prior PCP. With [facility] she was on Oxycodine 30mg QID and Oxycontin 30mg daily. In Sep 2023 pt was admitted to [facility] for concern for overdose. Additionally, there were other concerns including that [facility] notes referenced that patient reported being on a Fentanyl patch, which this provider had never prescribed. Additionally, there was hx of patient needing refills early and a report that her mother had used some of her medications. Also patient had significant weight loss which provider was concerned might have contributed to possible accidental overdose. Because of these concerns provider, clinic repeatedly called patient to come in and discuss pain management and reportedly reached out to her from October until January however patient did not respond or come in for appointments, having missed several. Provider reports that because of lack of communication and ongoing concern that was never addressed, Provider felt it was necessary to taper patient off pain medication which was started in January; patient was also tapered off Ativan. Provider agrees that patient does have significant medical history that is commonly treated with chronic pain medication. Farm Laborer discussed options with them and Dr. Rubio agrees that starting patient on a buprenorphine product is an acceptable alternative to oxycodone. Vraylar since depressed and hx of manic-esque IMPRESSION: Patient's?depression?and?SI?seem?to?have significant?situational component?as?she?is?No? longer?receiving?pain?management?for?severe,?chronic?pain. Patient?has?no?known?history?of?substance?abuse.??Although?she?did?screen?positi ve?for?fentanyl (on?10/27/2023 and?05/18/2024), No?quantitative?analysis?was?done. ?This?mean that?fentanyl?screen?could?very?well?be?a?false-positive?result (which is not uncommon). Medical?decision?should?not?be?based?on?only?a?positive?screen?for?fentanyl. Yazmin hoffman does struggle with SI and with her chronic?pain?And?poor?support?will?likely?continue?to?produce?mood?instability.? ?Treatment?plan?will?include?typewriter tester/team?discussion?with Outpatient?PCP?regardin g?plan?for?treatment. Hospital course: 06/05: Continue current regimen and plans 06/06. Continue current plans and regimen. Loperamide was put on hold. Started on simethicone by hospitalist. No indications of GI bleeding currently. -seen by GI: C/o constipation and worsening abdominal distension. Will order CT A/P with IV/PO contrast to assess for SBO/ileus though passage of gas and small amount of stool argues against complete obstruction; however she is at risk given multiple surgeries. If no obstruction will order bowel regimen to address constipation. Continue Van, Urology following. 06/07 Patient reports that she is depressed. She apologized for not being more forthcoming earlier on in says it took her awhile to admitted to herself but she does not want to be in this world anymore... And has a plan to jump in front of a train on discharge. Patient also reports that overdose on trazodone/gabapentin was actually an intentional suicide attempt. She reports a constant deluge of self-deprecating thoughts which include that she is worthless, discussed in, and fat. Farm Laborer reviewed patient's history of anorexia and patient reports she sees herself as fat every day and eats very little (history of anorexia since 14 years old; was at brought up oral for a month with a feeding tube; she understands that this is a significant cause of her chronic constipation). Despite her SI, patient does want help getting better agrees to try antidepressant medication; typewriter tester reviewed options and risks/side effects and patient with Vraylar. Also discussed pain medication management and patient agrees with Belbuca which she has heard of; she also agrees to non opioid pain management and will follow-up with pain management Clinic here at [facility]. Discussed relationship with her mother and she does not SA think her mother struggles with drug addiction but has caught her trying to get into her room, which patient keeps locked, looking for her medications which she has taken in the past. Patient said she reported this to her PCP. Patient does have history of being prescribed fentanyl patch however she did not like them and weaned herself off of them; set had some left over 06/08 Patient remains depressed with suicidal thinking however is trying to be hopeful and has tolerated Vraylar and says will continue, with increased dose; grateful for help getting Belbuca through prior authorization. -Discussed case with urology who recommends remaining with indwelling Van since failed voiding attempt on 06/03; will continue to follow -pt reported and nurse corroborated that Van bag containing urine was blood- tinged; discussed with Urologist, deemed likely micro trauma, and to keep van in place; recently failed voiding trial on 06/03 06/09 Patient reports she remains depressed, with SI. Patient also reports she had a very difficult time sleeping last night feeling very upset following a conversation she had on the phone with her mother. Patient expressed to her mother she is feeling hurt that her mom has not visited or called throughout her admission, even on patient's birthday; she says her mom was on apologetic. Patient also challenged her mom regarding her mom's past comment that patient could burn in hell with her father (who 2 years ago); mom remained unapologetic. Patient tells typewriter tester she has no idea why her mom said this other than that her mom is crazy... Subsequently patient reports that throughout the night, she had racing thoughts and no sleep. Discussed medications and patient and pt is eager to try Belbuca Films for pain management, available today dc'd gabapentin; pt said has never helped for pain or anxiety Adding clonidine at bedtime to help w/ sleep, anxiety 06/10 patient reports that Belbuca is helping with pain Patient remains very depressed and continues to have suicidal thoughts, saying she wants to end her life when she leaves the hospital. Patient Says I do not understand myself.. And laments she is gone most of her life without any suicidal ideation and only started this past September. Patient shared about some other reasons that it might be occurring and agrees that she still mourning the loss of her father who was her confidante; dealing with chronic pain having been off pain medications for several months and the ongoing struggles in her relationship with her mother and brother whom she feels are bullying; trying to come to terms with the fact that her mother simply isn't going to be the kind of mother she wishes she had. Patient agrees to medication management. 06/13 still very depressed with SI. Sleeping better however which is helpful and pain medications are also helpful. Patient agrees to increasing Vraylar; agrees to behavioral activation and attending groups. Despite ongoing thoughts about self-harm and ending her life when she is discharge, patient is also future oriented and says she would like to find a new place to live separate from her mother and brother. Asks for help going about that. 06/14 pt remains depressed, positive for SI with a plan but also future oriented talking about changing her living situation. Pt is engaged in treatment, trying to process her suicidal feelings and trying to be hopeful it will resolve. Agrees to adding Wellbutrin. -will likely add Wellbutrin; however, will probably keep Vraylar (maybe at lower dose) since pt has hx of manic-esque episodes (thought not formally diagnosed with bipolar as episode had several contributory factors) 06/15 remains depressed but processing feelings, doing worksheets, talking about her mother. Pt very anxious. -may increase wellbutrin for depression -considered starting Clonazepam 0.5mg BID; pt used to be on as much as 5mg of ativan daily; was weened off so hesitant to restart benzo's; 06/17 increase Wellbutrin 06/20 Over the weekend, patient assessed for infection, starting antibiotic; concerned that indwelling Van catheter is not sustainable; urology consulted and plan was for suprapubic catheter insertion for today. Patient however did not get fully informed of this and was upset to learn that a procedure was planned. She was however able to discuss this at length with typewriter tester and urology team and agreed to proceed. 06/21 Dr. Niño decided better to do a cystoscopy 1st and then decide whether not suprapubic catheter verse bladder stimulator; patient consents Seen by infectious disease: She has no urinary concerns at this time..No further antibiotics for now 06/22 Patient discussed conversation she had with her brother that was re assuring. Patient felt understood by him and supported which has lifted her mood. She feels that although she still depressed perhaps some of the depression is lifting and she starting to feel that there is hope of change in her situation. Patient remains very anxious. Earlier she had said she did not want to get back on benzodiazepines, having been on Ativan 5 mg for decades, weaned off only about a year ago. However given patient's struggles with anxiety and the fact that benzos have helped her in the past, discussed restarting a benzodiazepine, this time clonazepam 0.5 mg b.i.d.; typewriter tester discussed at length risks for addiction and the constant desire to have more. Patient said she very much does not want that to happen and feels that she will be able to minimize her use 06/23 Depressed, with intermittent SI. very anxious and with despairing thoughts has upcoming anniversary of her father's which is this July 03; will try to make it remembrance day and change the perspective. -Feeling better about catheter and plan; typewriter tester discussed with urology who met with patient and plan is for July 05 to move forward with stimulator -patient attending groups and engaged in treatment 06/24 a little better; mood up and down and still intermittent SI but patient is working on being hopeful employee numerous coping skills. Agrees to increase Wellbutrin 06/25 Patient continues to report depressed mood; told nurse that she remains purging daily and still plans to attempt suicide when she leaves. However on the unit, she seems more relaxed. Patient shared with typewriter tester her plan to remember her father on the anniversary of his . 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 Currently she is eating enough. As this is a chronic problem that that has gone on for over 20 years, and with which patient has been able to cope with on her own, without needing hospitalizations or [facility] admissions since teenage years, typewriter tester does not expect that it will resolve during this inpatient stay and does not believe that it needs to. 06/27 very tearful sad; suicidal; pushing self to be around others, groups -talked about eating struggles, purging; trying not to 06/28 do not think that medication management will change patients depression at this time. Rather she needs continued time to process her feelings of despair, grief about her fathers , hx of trauma, feeling her future is bleak. -typewriter tester engaged in psychodynamic psychotherapy 06/29 same presentation; typewriter tester engaged in psychodynamic psychotherapy 06/30: feels clonidine and klonopin helpful for anxiety. asking for pain med change; deferred for return of attending, does not appear in pain. Q5s for SI/van. staff field engineer feel pt is not substantially worse than her recent inpatient baseline, but perhaps looking a bit better today than yesterday. 07/01: appears behaving as per usual for inpatient context. increase seroquel to 150 QHS for insomnia and appetite stimulation. continue current mgmt otherwise. 07/02: Continues depressed with suicidal thoughts. Says she wants to starve self. VSS. Check metabolic panel. 07/04 Patient continues to lament her past and anger and frustration with specific relationships. Says still feels hopeless can not stop thinking about ending her life. Discussed more about taking responsibility for feelings and while anger and frustration at others can be appropriate, it is also necessary to work on coping with such feelings. Patient said she will continue to try. Discussed history and patient has not really had SI till this October and discussed how these feelings will also pass... Discussed medication management and patient agreed to trial of lithium for continued depression and chronic SI. and increasing Vraylar -patient considers ending her life by starving herself though she has been eating on the unit. -discussed surgical implantation of bladder stimulator tomorrow 07/05 received?bladder?stimulator;?remains?with?indwelling?catheter?which?will?be?nancy floyd?tomorrow?or?the?following?day. -increased?Vraylar?to?6?mg 07/06 continue?with?treatment?plan;??Aba Niño?helping?with?implanted?bladder?stim 07/07 adjusting to new device, bladder scan; discussed?how?history?of?trauma?left?patient?needing?to?a?certain?sen se?of?control Over?her?life?in?body?which?likely?plays?a?part?into?developing?anorexia,?SI...? ?This?idea?resonate?with?patient? who?agreed?that?she?is?overly?focused?on?blaming?others?and?giving?to?li ttle?attention?to?how?to?work?on Her?own?personal?issues. 07/08?continue?current?treatment?plan?except?will?increase?lithium?to?help?with? depression Patient?continues?to?make?statements?that?she?is?th inking?of?ending?her?life.??In?the?same?conversation?however?she?will?also?discu ss Her?efforts?to?move?out?of?her?mother's?house?and?get?her?own?place?to?live;?she ?talks?about?being?able?to?bear?living?there?while She?makes?plans?to?move?out.? 07/10: Continue current regimen and plans for stabilization and medication management 07/11 Patient was willing to have a very blunt discussion about her suicidality. She agreed that there is a significant part of her that gets a benefit from feeling suicidal and that this benefit is a barrier to her getting over her SI. She acknowledges that being suicidal is an attempt to say FU to her mother and brother; also, she acknowledges it allows her to spend more time on the unit. Because of these derived benefits, she acknowledges it has been somewhat of a choice to remain feeling suicidal. Conversely, she says she does not want to be this way and ultimately wants to be alive, wants to have a future and wants to get better. As patient processed her feelings she better realized that remaining sick keep her trapped in the abusive environment she has grown up in. Patient reiterated that she very much wants to be alive and says i don't w ant to quit on life... Patient said she wants to continue working on this and will even force herself to eat. Patient reports that pain is being well treated and tramadol has been helpful Discussed case with nursing who agrees that perhaps patient can eventually self catheterize. Also that if suicidality resolves, can consider switching patient back to Q 5s as she was on indwelling catheterization 07/12 Patient doing much better today, staff commented on brighter affect and that she seems much more engaged. Patient said she is pretty good and that she has been having a good day, which is the 1st time she has expressed hopefulness. Patient said that conversations yesterday were effective and she is firmly decided to come to the other side and that she does not want to stay being sick. Patient said reflecting on her life, her true beliefs and her goals helped make this transition. Patient actually ate her dinner yesterday, another 1st and says she will continue to try to be more healthy with her eating. Patient denies SI and says I want to live... -of note, this improvement is very new and fragile; patient continues to require inpatient admission for continued stabilization, extensive aftercare planning; discharge now would result in quick decompensation and return of SI Farm Laborer discussed case with nursing materials supervisor who agrees that patient is able to come off one-to-one, and go to Q 5s as she was with indwelling catheter; also that she can begin learning to self-catheterize, which is an essential part of her discharge plan and of course helps preserves patient's dignity/privacy 07/13 remains much improved; using coping skills, engaging in therapy sessions including CBT and doing homework with it. SI remains fully resolved and patient future oriented 07/14 Patient doing better, good mood and much more hopeful. Today ate half of her breakfast and half of her lunch. Patient discussed how she is optimistic and very much wants to be alive; will continue to fight against intermittent SI thoughts 07/15 Pt remains doing much better; no SI and future oriented. She is actively using CBT skills to help cope with and process feelings. -still not voiding on own; learnng to self cath -eating better, now about 1/2 of meals (formerly not eating at all); discussing struggles w/ eating disorder -Sacral Neuromodulation Interstim trial. No improvement. The patient is still requiring ISC. Interstim Program changed 07/17- patient better psychiatrically- would like to have surgery review incision refused belbuka today so that maybe tramadol or fiorcet would work? not sure what she wants to do with that- 07/18 Patient reports that she remains in good mood is hoping she will be able to continue doing well when she discharges. Hoping to go to respite and wants to avoid going to her mother's. Patient continues to utilize coping strategies learned during this admission including CBT skills which patient shared. 07/19 Patient was excited to share that she spontaneously urinated. She was also able to self-catheterize. Patient remains in good mood; has not been eating as much and staff reports patient continues to intermittently purge. Farm Laborer superficially broached this topic which patient acknowledged. 07/20: Patient remains much improved, overall good mood and future oriented. Continues to have anxious moments with fleeting SI; last night patient made a comment if she has to go back to her mother's house she would kill herself. Discussed thoroughly today and patient does not want to kill herself does not want to and set herself that she could probably tolerate going back to live at her mother's if she had to; patient says that she knows she has changed, is much better at coping with her problems and also knows that she will eventually get out of her mother's household; patient went through various coping strategies if she should end up back at her mother's, including going into a room and locking the door, listening to music and ignoring them; also says she now sees alternatives to suicide such as calling crisis or even calling her older brother Edward. Patient continues to be able to self-catheterize. 07/21: Intermittently SI when discussing future plans. Continue current management and treatment plan. 07/22 continue tx. 07/23: Voices SI contingent on return home to live with mother and brother. Rodrigo kennedy current management and treatment plan. 07/24: Voices SI contingent on return home after respite and today saying she is unable to self cath. 07/25 Patient remains very anxious about discharging to her mother's. Patient intermittently made comments over the past few days that if she has to go back to her mother's house she will commit suicide. She explains that she does not want to commit suicide, that she wants to live and is hopeful about having a future life; she says what she wants most of all is to get her own place to live. However she finds it challenging that it will take time for her to get her own place and explains that she's afraid that her mother will say something triggering, that she'll get dark thoughts and want to end her life. Patient agrees that she has other options when feeling unsafe, such as calling crisis or calling her brother and she says she has plans to do this, but continues to worry. Patient remains without any other SI, future oriented and it is only this specific situation where she feels vulnerable to being triggered. That said, patient understands that she will likely have to returned her mother's at some point as getting into respite is difficult and she is not sure she has enough money to sustain living at a hotel. Patient continues to trouble shoots how she will cope with the stress of living there while finding her own place and says will listen to music, not interact with her mother or brother and get out of the house as much as possible. -Patient continues to feel ready for discharge. Patient and typewriter tester thoroughly discussed her journey during this admission and patient can point to many victories, saying I faced things for the 1st time... for which she is proud. She came to the realization and shared that it would not matter if she stayed on the unit for another 3 months, that she will always be afraid of discharge and worry about becoming suicidal and that a longer stay will not change this for her. While she feels safe on the unit, most of her does not want to remain and she agrees that at this point, she needs to face her struggles in the community to see how she does. -Discussed self catheterization. Patient has successfully self catheterize herself for 2 days last week; over the weekend she started asking nursing to do it again, referencing her discomfort with her own body. Patient and typewriter tester discuss this today and how history of trauma can bring forth uncomfortable feelings regarding genitalia; patient accepts that though it is difficult for her it is something she needs to accomplish and agrees to restart doing so. Later today patient urinated on her own and told typewriter tester she had a happy accident.. -discussed case with urology, Dr. Conner and with patient who agrees to discharge to surgical team for removal of shawn and to implant device. Psychiatry will follow patient while on surgical service work on discharge planning from there. Patient agrees with this and wants to proceed Impression: Patient has been struggling with SI for over 6 months. She is much improved and now only has intermittent SI when she thinks of having to return to live at her mother's house. Even so she is able to come up with coping strategies and a safety plan for what she would do if she again did start to become suicidal. At this point, typewriter tester and patient both agree that longer stay on inpatient unit is not going to change this struggle, but rather it is something she has to continue learning to cope with and will likely be doing so for years. Patient is not suicidal and she remains future oriented. She wants to discharge, even though she is anxious about it. And while she is a high-risk patient, vulnerable to emotional reactivity, SI and even self-harm, this is chronic and is a part of her baseline. Staying on the unit longer will actually stifle patient from growing in her ability to cope with her fears and deal with her intermittent SI. And while returning to the community and living at her mother's will be challenging, likely triggering SI and possibly self-harm, there is no further treatment available other than to accept this risk and attempt to lear javier how to be safe in the community. PLAN: CV? q5's Continue clonazepam 0.5 mg b.i.d. Added?tramadol?for?breakthrough?pain Continue?WEllbutrin XL 450 mg for continued depression (pt adamant about not starting anti-depressant with risk of wt gain) Continue Vraylar 6 mg daily (Vraylar chosen since patient has depression but also history of manic type behaviors, possibly manic episode with some delusions and AH) Continue Belbuca 75mcg films BID for pain management (history of fentanyl patch, morphine, oxycodone, OxyContin) clonidine prn completed Flagyl 500 q.12 hours x7 days placed for bacterial vaginosis; id examined patient and reports no need for any additional antibiotic regimen Urology appointment: July 05 for placement of bladder stimulator (With Betty Conner) Cystoscopy Findings: Bladder wall thickening, no vaginal or bladder mesh, no evidence outlet obstruction Hospitalist note 06/18 Receiving Pyridium UA 06/18 positive for 4+ bacteria, greater than 50 WBC, large leukocyte esterase positive nitrates Urine culture pending Urine culture 05/25 and 06/01 grew Raissa glabrata patient received Diflucan 200 mg daily from 06/01 through 06/15 Bacterial vaginosis PCR positive Raissa grew size/glabrata detected Due to persistent symptoms of vaginal pain/discharge recommend Infectious Disease consultation Follow urine culture. Time Spent with Patient Time attestation: Total time managing care of this patient today ____ minutes. Discharge Plan Discharge Anticipated Discharge Date/Time: 07/26/24 07:00 Patient Disposition: Xfer Other Discharge Diagnosis: MDD, recurrent, severe w/out psychosis, in full remission Referrals: Physician,None [Primary Care Provider] - 1 Week Discharge Medications: New buprenorphine HCl [Belbuca] 75 mcg film 75 mcg buccal BID 30 Days Qty: 60 0RF polyethylene glycol 3350 17 gram Powder In Packet 17 g PO BID PRN (Reason: constipation) Qty: 0 0RF clonazepam 0.5 mg Tablet 0.5 mg PO BID@0900,1700 Qty: 0 0RF sennosides-docusate sodium [Senna Plus] 8.6-50 mg Tablet 2 tab PO BID Qty: 0 0RF lithium carbonate 300 mg Tablet Extended Release 600 mg PO BEDTIME Qty: 0 0RF tramadol 50 mg Tablet 50 mg PO Q6H PRN (Reason: Pain, Severe (Pain Scale 7-10)) Qty: 0 0RF hydroxyzine HCl 25 mg Tablet 25 mg PO Q6H PRN (Reason: Anxiety) Qty: 0 0RF ondansetron 4 mg Tablet,Disintegrating 4 mg translingual Q6H PRN (Reason: Nausea And Vomiting) Qty: 0 0RF quetiapine 50 mg Tablet 150 mg PO BEDTIME Qty: 0 0RF Sore Throat (benzocaine-menth) 15-3.6 mg Lozenge 1 robina mucous membrane Q2H PRN (Reason: Sore Throat) Qty: 0 0RF Vraylar 3 mg Capsule 6 mg PO DAILY 30 Days Qty: 60 0RF Patient Own Medication 1 ea PO BID Qty: 0 0RF clonidine HCl 0.1 mg Tablet 0.1 mg PO BEDTIME Qty: 0 0RF Protocol: Hold for SBP< HOLD for SBP < : 90 clonidine HCl 0.1 mg Tablet 0.1 mg PO Q4H PRN (Reason: anxiety) Qty: 0 0RF Protocol: Hold for SBP< HOLD for SBP < : 90 acetaminophen 325 mg Tablet 975 mg PO Q8H Qty: 0 0RF bethanechol chloride 25 mg Tablet 25 mg PO TID Qty: 0 0RF tamsulosin 0.4 mg Capsule 0.4 mg PO BEDTIME Qty: 0 0RF nicotine 7 mg/24 hr Patch 24 Hour 7 mg transdermal DAILY Qty: 0 0RF bupropion HCl 150 mg Tablet Extended Release 24 Hr 450 mg PO DAILY Qty: 0 0RF Continued albuterol sulfate 90 mcg/actuation HFA aerosol inhaler 2 puff inhalation QID PRN (Reason: Shortness Of Breath) ascorbic acid (vitamin C) [Vitamin C] 1,000 mg Tablet 1,000 mg PO DAILY Discontinued ibuprofen 800 mg tablet 800 mg PO TID PRN (Reason: Pain (Scale Score 4-6)) lorazepam 0.5 mg tablet 0.25 mg PO BID PRN (Reason: anxiety) gabapentin 100 mg capsule 100 mg PO DAILY PRN (Reason: nerve pain) gabapentin 100 mg capsule 200 mg PO BEDTIME trazodone 50 mg Tablet 50 mg PO BEDTIME MRX1 PRN (Reason: Insomnia) 14 Days Qty: 14 0RF Discharge Orders: Discharge Order (Routine); Ordered 07/26/24 Ordered By: Aurelio Hermosillo Diet: Regular diet Activity on Discharge: As tolerated Stand Alone Forms: Patient Portal Discharge page Print Language: Chinese Care Plan Goals: Maintain mood and safe behaviors Take medications as prescribed Continue to pursue sobriety Practice coping skills Continue with outpatient providers and reach out to them as needed Health Concerns: Mood stability and behaviors Urinary retention with bladder stimulator Osteogenesis imperfecta Earliest Danlos Anorexia nervosa Plan of Treatment: Transferred to surgical team for implantation of stimulator device. Afterwards, Follow up with your PCP, psychiatric provider and other outpatient providers regarding above concerns Take medications as prescribed Assessment: Risk assessment at time of discharge:? Patient was interviewed prior to discharge and found to be fully oriented and without any SI or HI. Patient has improved insight and judgment and wants to continue treatment. Patient is not in imminent risk of harm to self or others and has a safety plan that includes presenting to the closest ER or calling 911 if feeling unsafe.? Patient has been observed closely by nursing and unit staff throughout admission; patient has not engaged in any behaviors that suggest dangerousness to self or others and has demonstrated appropriate behaviors and impulse control
[2024-07-25 20:00] VITALS: BP 138/84; PULSE 86; TEMP 36.5; O2SAT 99
[2024-07-25] MEDS: Lithium Carbonate ER 300 MG TABLET.ER 600 MG PO (22:16)
[2024-07-25 22:18] VITALS: BP 138/84
[2024-07-25] MEDS: QUEtiapine Fumarate 50 MG TABLET 150 MG PO (22:18)
[2024-07-25] MEDS: Tamsulosin HCL 0.4 MG CAPSULE PO (22:18)
== END 2024-07-26 07:12 | disposition other institution (70) | DRG 885 ==
LOC: HO.ED 05-31 20:52 → HO.PM5 06-01 18:25
PROVIDERS: Emergency Medicine; Internal Medicine; Nurse Practitioner Family; Psychiatry & Neurology Psychiatry; Social Worker; Student in an Organized Health Care Education/Training Program; Admitting Provider Psychiatry & Neurology Psychiatry; Emergency Provider Internal Medicine; Visit Provider Psychiatry & Neurology Psychiatry
DX: F33.1 Major depressive disorder, recurrent, moderate (principal); Q78.0 Osteogenesis imperfecta; Q79.60 Ehlers-Danlos syndrome, unspecified; T43.212A Poisoning by selective serotonin and norepinephrine reuptake inhibitors, intentional self-harm, initial encounter; F43.10 Post-traumatic stress disorder, unspecified; T42.6X2A Poisoning by other antiepileptic and sedative-hypnotic drugs, intentional self-harm, initial encounter; N76.0 Acute vaginitis; G89.4 Chronic pain syndrome; R33.9 Retention of urine, unspecified; Z96.0 Presence of urogenital implants; K59.00 Constipation, unspecified; Z63.4 Disappearance and death of family member; F41.9 Anxiety disorder, unspecified; Z87.891 Personal history of nicotine dependence; Z79.899 Other long term (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
CPT/HCPCS: 0241U; 0352U; 36415; 71101; 73030; 73070; 73090; 73100; 74018; 74177; 76775; 80048; 80053; 80061; 80076; 80143; 80179; 80307; 81001; 81003; 82272; 82607; 82746; 83036; 83735; 84443; 84484; 84702; 85025; 85027; 86850; 86900; 86901; 87086; 87088; 87186; 87491; 87591; 87651; 93005; 99285; C1758; J0690; J1885; J2003; J2060; J2250; J2405; J2704; J2795; J3010; J3370; J3480; Q9967; S9485

== ENCOUNTER → 2024-05-25 20:06 | Outpatient (BNV) | payer MEDICARE, MEDICAID, SELFPAY | PROVIDERS: Emergency Provider Internal Medicine; Visit Provider Social Worker | DX: F33.1 Major depressive disorder, recurrent, moderate (principal); F43.11 Post-traumatic stress disorder, acute; N39.8 Other specified disorders of urinary system; R33.9 Retention of urine, unspecified | CPT/HCPCS: 90792; 99231; 99232; 99283; 99285 ==

== ENCOUNTER 2024-06-01 18:14 | Outpatient (BNV) | payer MEDICARE, MEDICAID, SELFPAY | END 2024-06-13 08:00 | PROVIDERS: Admitting Provider Psychiatry & Neurology Psychiatry; Emergency Provider Internal Medicine; Visit Provider Internal Medicine Cardiovascular Disease | DX: R00.1 Bradycardia, unspecified (principal) | CPT/HCPCS: 93010 ==

== ENCOUNTER 2024-06-01 18:14 | Outpatient (BNV) | payer MEDICARE, MEDICAID, SELFPAY | END 2024-06-12 17:59 | PROVIDERS: Admitting Provider Psychiatry & Neurology Psychiatry; Emergency Provider Internal Medicine; Visit Provider Internal Medicine Cardiovascular Disease | DX: R07.89 Other chest pain (principal) | CPT/HCPCS: 93010 ==

== ENCOUNTER → 2024-06-01 18:14 | Outpatient (BNV) | payer MEDICARE, MEDICAID, SELFPAY | PROVIDERS: Admitting Provider Psychiatry & Neurology Psychiatry; Emergency Provider Internal Medicine; Visit Provider Family Medicine | DX: Z02.2 Encounter for examination for admission to residential institution (principal) | CPT/HCPCS: 99429; 99499 ==

== ENCOUNTER → 2024-06-01 18:14 | Outpatient (BNV) | payer MEDICARE, MEDICAID, SELFPAY | PROVIDERS: Admitting Provider Psychiatry & Neurology Psychiatry; Emergency Provider Internal Medicine; Visit Provider Internal Medicine | DX: N39.8 Other specified disorders of urinary system (principal) | CPT/HCPCS: 99222 ==

== ENCOUNTER → 2024-06-01 18:14 | Outpatient (BNV) | payer MEDICARE, MEDICAID, SELFPAY | PROVIDERS: Admitting Provider Psychiatry & Neurology Psychiatry; Emergency Provider Internal Medicine; Visit Provider Urology | DX: N39.8 Other specified disorders of urinary system (principal); F43.11 Post-traumatic stress disorder, acute; G89.4 Chronic pain syndrome; R33.9 Retention of urine, unspecified | CPT/HCPCS: 99221; 99232 ==

== ENCOUNTER → 2024-06-20 16:20 | Outpatient (BNV) | payer MEDICARE, MEDICAID, SELFPAY | PROVIDERS: PCP Family Medicine; Visit Provider Urology | DX: F43.10 Post-traumatic stress disorder, unspecified (principal); Z97.8 Presence of other specified devices; M79.18 Myalgia, other site; F33.1 Major depressive disorder, recurrent, moderate; R33.9 Retention of urine, unspecified; Q79.60 Ehlers-Danlos syndrome, unspecified; Q78.0 Osteogenesis imperfecta | CPT/HCPCS: 52000; 99232 ==

== ENCOUNTER 2024-06-21 12:14 | Day surgery (SDC) | payer MEDICARE, MEDICAID, SELFPAY ==
--- NOTE | 2024-06-20 14:09 | P.CNUR_ITS ---
History of Present Illness Consult details Consult date: 06/20/24 Narrative: CC: Urinary Retention 39-year-old female Chronic urinary retention secondary to anticholinergic side effects from medications Failed voiding trial on Thursday Has persistent genital discomfort with Joseph catheter in place Discussed suprapubic tube placement Review of Systems Constitutional: Constitutional: Reports as per HPI and Reports no additional constitutional complaints Cardiovascular: Cardiovascular: Reports as per HPI and Reports no additional cardiovascular complaints Respiratory: Respiratory: Reports as per HPI and Reports no additional respiratory complaints Gastrointestinal: Gastrointestinal: Reports as per HPI and Reports no additional gastrointestinal complaints Genitourinary: Genitourinary: Reports as per HPI Musculoskeletal: Musculoskeletal: Reports no additional musculoskeletal complaints and Reports as per HPI Neurologic: Reports system reviewed and no additional complaints, except as documented and Reports as per HPI PMFSH Past Medical History Medical History MDD (major depressive disorder), recurrent episode, moderate Benzodiazepine dependence Rectocele Juvenile osteoporosis Compression fx, lumbar spine History of wrist fracture Myofascial pain syndrome Anxiety and depression Social History Social History Household Members: Family Household Members Other:: mom Housing: House Do you presently have visiting nurse or other home services: No Alcohol intake: former Patient Tobacco Use Status: Former Tobacco user Tobacco use type: Cigarette Cigarette Packs Per Day: 2 Cigarettes Per Day: 40.0 Years Smoked: Over 20 years e-Cigarette/Vaping Use: Never Used Second Hand Smoke Exposure: No Substance Use Type: Opiates service: No Sexual orientation: Straight/Heterosexual Meds Allergies Allergy/AdvReac Type Severity Reaction Status Date / Time azithromycin Allergy Itching Verified 05/25/24 19:31 levofloxacin [From Levaquin] Allergy Nightmare Verified 05/25/24 19:31 nitrofurantoin Allergy Itching Verified 05/25/24 19:31 [From Macrodantin] Home Medications ?Medication ?Instructions ?Recorded ?Confirmed ?Last Taken ?Type albuterol sulfate 90 mcg/actuation 2 puff inhalation QID PRN 05/18/24 05/26/24 Unknown History aerosol inhaler Shortness Of Breath gabapentin 100 mg capsule 100 mg PO DAILY PRN nerve pain 05/18/24 05/26/24 Unknown History gabapentin 100 mg capsule 200 mg PO BEDTIME 05/18/24 05/26/24 05/25/24 History ibuprofen 800 mg tablet 800 mg PO TID PRN Pain (Scale 05/18/24 05/26/24 Unknown History Score 4-6) lorazepam 0.5 mg tablet 0.25 mg PO BID PRN anxiety 05/18/24 05/26/24 Unknown History ascorbic acid (vitamin C) 1,000 mg 1,000 mg PO DAILY 05/26/24 05/26/24 Unknown History tablet (Vitamin C) Physical Exam Const: General: cooperative, healthy appearing, comfortable and no acute distress Orientation/consciousness: patient oriented x3 HEENT: Face and sinus: Yes normal facial exam Mouth: moist mucous membranes Neck: Neck: Yes normal visual inspection, Yes full ROM and Yes trachea midline Chest: Chest palpation & inspection: normal inspection of the chest Resp: Effort & Inspection: normal respiratory effort, able to speak in compl ete sentences and no respiratory distress GI: Inspection: Yes normal to inspection Back/Spine/Pelvis: Cervical Spine: normal cervical lordosis Thoracic/Lumbar Spine: thoracic and lumbar spine normal to inspection Skin: General skin exam: no rashes or lesions noted Neuro: General: patient oriented x3, tone normal and moves all extremities Extrem: General: Yes normal to inspection and Yes capillary refill normal Results Labs Labs: All other labs normal. Assessment and Plan (1) Urinary retention: Status: Acute Plan Risks, benefits and alternatives to therapy were discussed. These include but are not limited to infection, bleeding, damage to local organs and tissues, need for further interventions. Anesthetic risks regarding cardiac arrhythmia, blood clots, and potential mortality were discussed. The patient understands the typical recovery time and the outpatient nature of the procedure. After consideration of these risks the patient gives full informed consent and they wish to move ahead with the procedure. Cystoscopy with suprapubic tube placement Procedures Date of Service Date of Service: 06/20/24
[2024-06-21] VITALS (9 sets, daily range): BP systolic 126–140; BP diastolic 92–97; PULSE 65–86; RESP 16; TEMP 36.6–37.2; O2SAT 96–99; BMI 16.2
--- OUTSIDE RECORDS SUMMARY | 2024-06-21 12:17 | XMS_ITS | Continuity of Care Document ---
Author Organization [facility] Address [address] [place] [address]- Care Team Providers Care Health Advocate Name Role Phone Cassia Alanis DO Primary Care Physician [phone] Encounter [facility] ACCT R [id number] Date(s): 05/13/24 - 06/12/[address] [address]- Attending Physician: Jenny Kay Admitting Physician: Jenny Kay Referring Physician: AdmtrJenny Allergies, Adverse Reactions, Alerts Substance Reaction Severity Status Macrodantin itching and tired Active Zithromax facial swelling and itching Active Levaquin Active Immunizations Given and Recorded Vaccine Date Status Refusal Reason pneumococcal 23-valent vaccine 1 12/05/09 Given Tet/diphth/pertussis, acel (oldterm) 2 10/22/09 Gi peng 1Admin Note: VIM given 2Admin Note: Boostrix VIM given, 07-11-08 Medications cyclobenzaprine 10 mg oral tablet 10 mg, 1, tablet, By Mouth, 3 times a day, Refills 0, Maintenance, 05/17/24 16:02:00 EDT, Partial fill upon patient request if the prescription is for a schedule II opioid drug. Start Date: 05/17/24 Status: Ordered gabapentin 100 mg oral capsule See Instructions, 1 capsule By Mouth daily in afternoon, Refills 0, Maintenance, 05/17/24 16:04:00 EDT, Instructions Replace Required Details, Partial fill upon patient request if the prescription isfor a schedule II opioid drug. Start Date: 05/17/24 Status: Ordered gabapentin 100 mg oral capsule 200 mg, 2, capsule, By Mouth, Daily at bedtime, Refills 0, Maintenance, 05/17/24 16:05:00 EDT, Partial fill upon patient request if the prescription is for a schedule II opioid drug. Start Date: 05/17/24 Status: Ordered Ibuprofen 800 mg, By Mouth, 3 times a day, Refills 0, Maintenance, 02/08/24 14:40:00 EDT, Partial fill upon patient request if the prescription is for a schedule II opioid drug. Start Date: 02/08/24 Status: Ordered LORazepam 0.5 mg oral tablet 1 tablet = 0.5 mg, By Mouth, 2 times a day, 0 Refills, Maintenance, 05/17/24 16:01:00 EDT, Partial fill upon patient request if the prescription is for a schedule II opioid drug. Start Date: 05/17/24 Status: Ordered magnesium magnesium, 500 mg, Daily, Refills 0, Maintenance, 05/17/24 16:03:00 EDT, Supply Start Date: 05/17/24 Status: Ordered ProAir HFA 90 mcg/inh inhalation aerosol with adapter 2 puffs, Inhalation, 4 times a day, # 1 each, 1 Refills, Maintenance Start Date: 03/04/10 Status: Ordered Vitamin C 1000 mg oral tablet 1 tablet = 1,000 mg, By Mouth, Daily, 0 Refills, Maintenance, 05/17/24 16:02:00 EDT, Partial fill upon patient request if the prescription is for a schedule II opioid drug. Start Date: 05/17/24 Status: Ordered Problem List Condition Confirmation Course [...] Active UI - Urinary incontinence Confirmed Active Underweight Confirmed Active Urinary retention Confirmed 1994 Active [...] Care team information Care Team Personnel Name: Renetta Barger RN Position: Garo RN Member Role: Primary Care Nurse Name: Cassia Alanis DO Position: Reference Physician Member Role: PCP Address: Address: [address] [place] [address]- Care Team Related Persons Name: COURT SAHA Address: home [address] [place] [address] Name: ZEV SAHA Address: home [address] [place] [address]
--- OUTSIDE RECORDS SUMMARY | 2024-06-21 12:17 | XMS_ITS | Continuity of Care Document ---
Author Organization [facility] Address [address] [place] [id number] Care Team Providers Care Lehr Cutter Name Role Phone Cassia Alanis DO Primary Care Physician Encounter [place] Date(s): 03/04/24 - 06/12/[address] [id number] Attending Physician: Not on Staff, Attending MD Allergies, Adverse Reactions, Alerts Substance Reaction [...] Team Personnel Name: Renetta Barger RN Position: S RN Member Role: Primary Care Nurse Name: Cassia Alanis DO Position: Reference Physician Member Role: PCP Address: Address: [address] [place] [address]- Care Team Related Persons Name: COURT SAHA Address: home [address] [place] [address] Name: ZEV SAHA Address: home [address] [place] [address]
--- NOTE | 2024-06-21 12:49 | P.PNUR_ITS ---
Subjective Subjective Date of Service: 06/21/24 Interval history: Joselin is a 39-year-old female with history of Jennifer Danlos syndrome, osteogenesis imperfecta, myofascial pain syndrome, migraines, juvenile osteoporosis, asthma, and mood disorder with history of vaginal prolapse and rectocele, H/o pelvic surgery with vaginal mesh; urinary retention requiring Joseph catheterization, failed voiding trial. I have discussed options for treatment of urinary retention to include CIC, chronic catheter, including suprapubic tube and neuromodulation with sacral nerve stimulation S3 with pacemaker which has a 50-60% success rate for treatment of urinary retention not related to obstruction. I have discussed will hold on SP tube today and evaluate with cystoscopy. Patient is agreeable to plan. Physical Exam Vital Signs: Vital Signs: Last Vital Signs Temp 98.9 F 06/21/24 12:31 Pulse 86 06/21/24 12:31 Resp 16 06/21/24 12:31 BP 135/92 H 06/21/24 12:31 Pulse Ox 96 06/21/24 12:31 O2 Del Method Room Air 06/21/24 12:31 BMI result Body Mass Index 16.2 Const: General: cooperative and no acute distress Orientation/cons ciousness: patient oriented x3 HEENT: Head: Yes normal to inspection, Yes normocephalic and Yes atraumatic Eyes: Conjunctivae: conjunctivae normal Neck: Neck: Yes normal visual inspection and Yes trachea midline Chest: Chest palpation & inspection: normal inspection of the chest Resp: Effort & Inspection: normal respiratory effort Cardio: Rate: regular rate GI: Inspection: Yes normal to inspection Palpation (GI): Soft to palpation Neuro: General: patient oriented x3 Extrem: General: No edema Psych: Appearance: grossly normal Progress Note: A&P Assessment and plan (1) PTSD (post-traumatic stress disorder): Status: Acute (2) Indwelling Joseph catheter present: Status: Acute (3) Myofascial pain syndrome: Status: Acute (4) MDD (major depressive disorder), recurrent episode, moderate: Status: Acute (5) Urinary retention: Status: Acute (6) Jennifer-Danlos disease: Status: Acute (7) Osteogenesis imperfecta: Status: Acute Plan Cystoscopy. Time Spent With Patient Time: Total time managing care of this patient today ____ minutes.
--- NOTE | 2024-06-21 12:51 | HO.ANESPROP2 ---
HPI - Anesthesia Eval Consult details Narrative: For cystoscopy, poss suprapubic. PMFSH Active Problems Active Problems: All Active Problems PTSD (post-traumatic stress disorder) (Acute) Abdominal distension (Acute) Voiding dysfunction (Acute) Indwelling Joseph catheter present (Acute) MDD (major depressive disorder), recurrent episode, moderate (Acute) MDD (major depressive disorder), single episode, moderate (Acute) Left forearm pain (Acute) Myofascial pain syndrome (Acute) Chronic pain syndrome (Acute) Mood disorder (Acute) Routine medical exam (Acute) Low back pain (Acute) Paresthesias (Acute) Urinary retention (Acute) Anxiety (Acute) Osteogenesis imperfecta (Acute) Jennifer-Danlos disease (Acute) Past Medical History Medical History MDD (major depressive disorder), recurrent episode, moderate Benzodiazepine dependence Rectocele Juvenile osteoporosis Compression fx, lumbar spine History of wrist fracture Myofascial pain syndrome Anxiety and depression Family History Family history of problems with anesthesia: No Surgical History History of Problems with Anesthesia: No Social History Social History Household Members: Family Household Members Other:: mom Housing: House Do you presently have visiting nurse or other home services: No Alcohol intake: former Patient Tobacco Use Status: Former Tobacco user Tobacco use type: Cigarette Cigarette Packs Per Day: 2 Cigarettes Per Day: 40.0 Years Smoked: Over 20 years e-Cigarette/Vaping Use: Never Used Second Hand Smoke Exposure: No Use of substances other than those prescribed or required for medical reasons: No Substance Use Type: Opiates Are you DNR?: No Advance Directives: No Advance Directives Information Provided: Yes Patient : No service: No Sexual orientation: Straight/Heterosexual Meds Allergies Allergy/AdvReac Type Severity Reaction Status Date / Time azithromycin Allergy Itching Verified 06/21/24 12:35 levofloxacin [From Levaquin] Allergy Nightmare Verified 06/21/24 12:35 nitrofurantoin Allergy Itching Verified 06/21/24 12:35 [From Macrodantin] Active Medications: Current Medications Lactated Ringer's (Lr) 1,000 mls @ 100 mls/hr IVCONT .Q10H ELMO Cefazolin Sodium/Dextrose (Ancef) 2 gm in 50 mls @ 100 mls/hr IV PREOP ONE Stop: 06/21/24 13:16 Home Medications ?Medication ?Instructions ?Recorded ?Confirmed ?Last Taken ?Type albuterol sulfate 90 mcg/actuation 2 puff inhalation QID PRN 05/18/24 05/26/24 Unknown History aerosol inhaler Shortness Of Breath gabapentin 100 mg capsule 100 mg PO DAILY PRN nerve pain 05/18/24 05/26/24 Unknown History gabapentin 100 mg capsule 200 mg PO BEDTIME 05/18/24 05/26/24 05/25/24 History ibuprofen 800 mg tablet 800 mg PO TID PRN Pain (Scale 05/18/24 05/26/24 Unknown History Score 4-6) lorazepam 0.5 mg tablet 0.25 mg PO BID PRN anxiety 05/18/24 05/26/24 Unknown History ascorbic acid (vitamin C) 1,000 mg 1,000 mg PO DAILY 05/26/24 05/26/24 Unknown History tablet (Vitamin C) Exam Height,Weight and Vital Signs: Height 5 ft Weight 37.648 kg Last Vital Signs Temp 98.9 F 06/21/24 12:31 Pulse 86 06/21/24 12:31 Resp 16 06/21/24 12:31 BP 135/92 H 06/21/24 12:31 Pulse Ox 96 06/21/24 12:31 O2 Del Method Room Air 06/21/24 12:31 Airway Mallampati Class: I TM Dist: >3cm Neck ROM: Full Heart: ok Lungs: ok Assessment and Plan Assessment Anesthesia Assessment: Anesthesia Plan Discussed and Chart Reviewed Final Anesthetic Review Family History of Problems with Anesthesia: No History of Problems with Anesthesia: No NPO: Yes ASA Class: III Final Preanesthetic Review: No Changes in Pt Med Stat, Meds/Allgs Chart Reviewed, Consent Obtained/Reviewed and Anes Risks/Benef Reviewed Patient Risk: Intermediate Procedure Risk: High Anesthetic Plan Anesthetic Plan: GA and Agree w/ Assess. and Plan Disposition: Standard PACU
--- NOTE | 2024-06-21 12:57 | MHC.SHP ---
Pre-Procedural Eval Section A - 24 Hr Update-Section A only Date of Service: 06/21/24 The patient is an INPATIENT: Yes The patient has been examined within 24 hours of the surgical procedure. The History & Physical has been completed within 30 days and I have reviewed it.: Yes Section B - Complete if H&P > 30 days Chief Complaint: Other specified disorders of urinary system Allergies: Allergies Allergy/AdvReac Type Severity Reaction Status Date / Time azithromycin Allergy Itching Verified 06/21/24 12:35 levofloxacin [From Levaquin] Allergy Nightmare Verified 06/21/24 12:35 nitrofurantoin Allergy Itching Verified 06/21/24 12:35 [From Macrodantin] Plan Diagnosis/Plan: Unchanged I have reviewed the history and physical and performed a pertinent physical examination on my patient. No changes have occurred unless specified. Cystoscopy. Cystoscopy. Discussed risks to include but not limited to, blood in the urine, burning with urination, urgency. Time Spent With Patient Time: Total time managing care of this patient today ____ minutes.
[2024-06-21] MEDS: Lactated Ringers 1,000 ML 100 ML IVCONT (12:58)
[2024-06-21] MEDS: Albuterol Sulfate 90 MCG 8 GM INHALER 2 PUFF INHALE (13:00)
--- NOTE | 2024-06-21 13:45 | W.PM.OPN ---
Operative Note Operative Note Date of Service: 06/21/24 Narrative: PREOP DIAGNOSIS: Urinary Retention, POSTOP DIAGNOSIS: Urinary retention PROCEDURE: Cystoscopy, Examination under anesthesia SURGEON: Agata Conner MD ANESTHESIA: General Indications: urinary retention, s/p vaginal prolapse repair with mesh Findings: Bladder wall thickening, no vaginal or bladder mesh, no evidence outlet obstruction Details of procedure: The patient was brought into the operating room placed on the OR table in supine position. 2 g of Ancef IV. General anesthesia was administered. The patient was repositioned into lithotomy position, prepped and draped in the usual sterile fashion. Time-out was done per protocol. On pelvic exam no vaginal mesh was palpated. The anterior vaginal wall was well supported. A 22 fr cystoscope was placed transurethrally into the bladder. The right and left ureteral orifices were visualized along the trigone in normal position. The entire bladder was visualized. There was no mesh noted in the bladder or urethra. There were no suspicious bladder lesions seen. There were trabeculations with cellule changes noted. The cystoscope was removed. 2% lidocaine urojet was passed transurethrally into the bladder. Belladonna suppository placed per rectum. Twelve Romanian Joseph catheter placed to gravity drainage The patient was brought out of anesthesia and taken to recovery in stable condition. Complications: None Drains: 12 Romanian Joseph catheter 5 mL in balloon
[2024-06-21] MEDS: oxyCODONE HCl Immed Release 5 MG TABLET PO (14:12)
[2024-06-21] MEDS: fentaNYL citrate/PF 100 MCG/2 ML VIAL 25 MCG IVPUSH (14:22)
== END 2024-06-21 14:48 | disposition home or self-care (01) ==
PROVIDERS: PCP Family Medicine; Visit Provider Urology
PROC: (CPT 51102; principal; 2024-06-21 13:00)
DX: R33.8 Other retention of urine (principal); N32.89 Other specified disorders of bladder; F33.1 Major depressive disorder, recurrent, moderate; F43.10 Post-traumatic stress disorder, unspecified; R56.9 Unspecified convulsions; Q79.60 Ehlers-Danlos syndrome, unspecified; Q78.0 Osteogenesis imperfecta; M79.18 Myalgia, other site; M81.8 Other osteoporosis without current pathological fracture; Z97.8 Presence of other specified devices; J45.909 Unspecified asthma, uncomplicated; G43.909 Migraine, unspecified, not intractable, without status migrainosus; Z79.1 Long term (current) use of non-steroidal anti-inflammatories (NSAID); Z79.899 Other long term (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; Z88.1 Allergy status to other antibiotic agents; Z98.890 Other specified postprocedural states; Z87.891 Personal history of nicotine dependence
CPT/HCPCS: 52000; 87086; 87088; 87186; J0690; J2003; J2250; J2704; J2795; J3010

== ENCOUNTER 2024-07-05 11:10 | Day surgery (SDC) | payer MEDICARE, MEDICAID, SELFPAY ==
[2024-07-05] VITALS (8 sets, daily range): BP systolic 111–138; BP diastolic 72–90; PULSE 64–89; RESP 16–18; TEMP 36.2–36.4; O2SAT 95–97; BMI 16.0
--- NOTE | 2024-07-05 11:33 | PC.NURSE ---
pt from m5 +si per patient sitter at bedside pt calm and cooperative
--- NOTE | 2024-07-05 11:50 | HO.ANESPROP2 ---
HPI - Anesthesia Eval Consult details Narrative: 39 yo F presenting for interstim lead test - stage I. Hx of SI, currently 1:1 with sitter. PMFSH Active Problems Active Problems: All Active Problems PTSD (post-traumatic stress disorder) (Acute) Abdominal distension (Acute) Voiding dysfunction (Acute) Indwelling Joseph catheter present (Acute) MDD (major depressive disorder), recurrent episode, moderate (Acute) MDD (major depressive disorder), single episode, moderate (Acute) Left forearm pain (Acute) Myofascial pain syndrome (Acute) Chronic pain syndrome (Acute) Mood disorder (Acute) Routine medical exam (Acute) Low back pain (Acute) Paresthesias (Acute) Urinary retention (Acute) Anxiety (Acute) Osteogenesis imperfecta (Acute) Jennifer-Danlos disease (Acute) Past Medical History Medical History MDD (major depressive disorder), recurrent episode, moderate Benzodiazepine dependence Rectocele Juvenile osteoporosis Compression fx, lumbar spine History of wrist fracture Myofascial pain syndrome Anxiety and depression Family History Family history of problems with anesthesia: No Surgical History History of Problems with Anesthesia: No Social History Social History Household Members: Family Household Members Other:: mom Housing: House Do you presently have visiting nurse or other home services: No Alcohol intake: former Patient Tobacco Use Status: Former Tobacco user Tobacco use type: Cigarette Cigarette Packs Per Day: 2 Cigarettes Per Day: 40.0 Years Smoked: Over 20 years e-Cigarette/Vaping Use: Never Used Second Hand Smoke Exposure: No Substance Use Type: Opiates Have you been hit, kicked, punched, or otherwise hurt by someone within the past year? If so, by whom?: No Advance Directives: No Advance Directives Information Provided: Yes Recently lost weight without trying: Yes Nutrition Risks: No Nutritional Risk Patient : No service: No Sexual orientation: Straight/Heterosexual Meds Allergies Allergy/AdvReac Type Severity Reaction Status Date / Time azithromycin Allergy Itching Verified 06/21/24 12:35 levofloxacin [From Levaquin] Allergy Nightmare Verified 06/21/24 12:35 nitrofurantoin Allergy Itching Verified 06/21/24 12:35 [From Macrodantin] Home Medications ?Medication ?Instructions ?Recorded ?Confirmed ?Last Taken ?Type albuterol sulfate 90 mcg/actuation 2 puff inhalation QID PRN 05/18/24 05/26/24 Unknown History aerosol inhaler Shortness Of Breath gabapentin 100 mg capsule 100 mg PO DAILY PRN nerve pain 05/18/24 05/26/24 Unknown History gabapentin 100 mg capsule 200 mg PO BEDTIME 05/18/24 05/26/24 05/25/24 History ibuprofen 800 mg tablet 800 mg PO TID PRN Pain (Scale 05/18/24 05/26/24 Unknown History Score 4-6) lorazepam 0.5 mg tablet 0.25 mg PO BID PRN anxiety 05/18/24 05/26/24 Unknown History ascorbic acid (vitamin C) 1,000 mg 1,000 mg PO DAILY 05/26/24 05/26/24 Unknown History tablet (Vitamin C) Exam Exam Date and Time: 07/05/24 1150 Height,Weight and Vital Signs: Height 5 ft Weight 37.104 kg Last Vital Signs Temp 97.1 F 07/05/24 11:17 Pulse 89 07/05/24 11:17 Resp 18 07/05/24 11:17 BP 111/81 07/05/24 11:17 Pulse Ox 95 07/05/24 11:17 O2 Del Method Room Air 07/05/24 11:17 Airway Mallampati Class: I TM Dist: >3cm Neck ROM: Full Loose/Missing/Broken Teeth: No (patient denies any loose or broken teeth) Heart: S1S2 Lungs: CTAB Assessment and Plan Assessment Anesthesia Assessment: Anesthesia Plan Discussed and Chart Reviewed Final Anesthetic Review Family History of Problems with Anesthesia: No History of Problems with Anesthesia: No NPO: Yes ASA Class: III Final Preanesthetic Review: No Changes in Pt Med Stat, Meds/Allgs Chart Reviewed, Consent Obtained/Reviewed and Anes Risks/Benef Reviewed Patient Risk: Intermediate Procedure Risk: Intermediate Anesthetic Plan Anesthetic Plan: GA and Agree w/ Assess. and Plan Disposition: Standard PACU
[2024-07-05] MEDS: Lactated Ringers 1,000 ML 50 ML IVCONT (12:02)
--- NOTE | 2024-07-05 12:02 | PC.NURSE ---
pt doesnot need test quant obtained on admission last seizure was in october per patient
--- NOTE | 2024-07-05 12:14 | MHC.SHP ---
Pre-Procedural Eval Section A - 24 Hr Update-Section A only Date of Service: 07/05/24 The patient is an INPATIENT: Yes The patient has been examined within 24 hours of the surgical procedure. The History & Physical has been completed within 30 days and I have reviewed it.: Yes Section B - Complete if H&P > 30 days Chief Complaint: Other specified disorders of urinary system Allergies: Allergies Allergy/AdvReac Type Severity Reaction Status Date / Time azithromycin Allergy Itching Verified 06/21/24 12:35 levofloxacin [From Levaquin] Allergy Nightmare Verified 06/21/24 12:35 nitrofurantoin Allergy Itching Verified 06/21/24 12:35 [From Macrodantin] Plan Diagnosis/Plan: Unchanged I have reviewed the history and physical and performed a pertinent physical examination on my patient. No changes have occurred unless specified. Stage 1 Lead implant for bladder. Joselin has urinary symptoms urinary retention. Time Spent With Patient Time: Total time managing care of this patient today ____ minutes.
[2024-07-05] MEDS: fentaNYL citrate/PF 100 MCG/2 ML VIAL 50 MCG IVPUSH ×2 (15:55→16:10)
--- NOTE | 2024-07-05 16:01 | P.OP_ITS ---
Operative Note Operative Note Date of Service: 07/05/24 Narrative: PreOperative Diagnosis:? ?? Urinary Retention Post Operative Diagnosis:? Urinary Retention Procedure:?Stage I Lead Implant- Bilateral (Modifier) ? Programming of Lead Surgeon:?Dr Agata Conner Anesthesia:? General Procedure: After informed consent was verified the patient was brought to the operating room. Anesthesia was performed per protocol on the OR stretcher.? The patient was repositioned to the OR table in prone? position, padding used including a xillary rolls.? IV Antibiotics administered.? The patient was prepped and draped in the usual sterile fashion.? Safety pause time-out was performed. Fluroscopy used during the case.? The Sacral 3 london was identified on the right side, the spinal needle was placed into the S3 foramen and identified with fluoroscopy in the AP and lateral position, the spinal needle was tested and there was good motor response, great toe deflection and aviva noted.? The stylet was placed through the spinal needle, after removing the spinal needle the introducer was passed over the stylette, the stylette was removed, the the lead was placed through the introducer.? The electrodes were tested Leads 1,2,3 electrodes had good motor response when tested.? In similar fashion the Left Sacral 3 foremen was identied. The electrodes were tested and leads 2, 3 had the best motor response. Incisions were made on the upper buttock below the iliac crest on each side.? The right lead was tunnelled to the second incision site.? The external connection wire was tunnelled and attached to the electrode.? This was done on the left side as well. The wound was copiously irrigated with antibiotic irrigation.? The incisions were closed with 3-0 chromic and 4-0 monocryl.? The lead insertion sites incision was closed with 4-0 monocryl. The Leads were programmed -- Left lead Program 1 (- 2, +0, Amplitude 2.45 Right lead Program 1 (-0, +3) Amplitude 1.6 The patient brought out of anesthesia placed supine on the OR and extubated.? The patient tolerated the procedure well and was transferred to the recovery area in stable condition. Complications:? None Drains:? None
[2024-07-05] MEDS: oxyCODONE HCl Immed Release 5 MG TABLET PO (16:39)
== END 2024-07-05 17:10 | disposition home or self-care (01) ==
PROVIDERS: PCP Family Medicine; Visit Provider Urology
PROC: (CPT 64561; principal; 2024-07-05 12:40)
DX: R33.9 Retention of urine, unspecified (principal); Z96.0 Presence of urogenital implants; Q79.60 Ehlers-Danlos syndrome, unspecified; Q78.0 Osteogenesis imperfecta; M79.18 Myalgia, other site; F32.9 Major depressive disorder, single episode, unspecified; F43.10 Post-traumatic stress disorder, unspecified; J45.909 Unspecified asthma, uncomplicated; Z79.899 Other long term (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; Z79.1 Long term (current) use of non-steroidal anti-inflammatories (NSAID); Z88.1 Allergy status to other antibiotic agents
CPT/HCPCS: 64561; C1778; C1883; C1894; J0665; J0690; J1580; J2003; J2704; J3010; J3370

== ENCOUNTER → 2024-07-05 11:10 | Outpatient (BNV) | payer MEDICARE, MEDICAID, SELFPAY | PROVIDERS: PCP Family Medicine; Visit Provider Urology | DX: R33.9 Retention of urine, unspecified (principal) | CPT/HCPCS: 64561 ==

== ENCOUNTER 2024-07-26 07:25 | Day surgery (SDC) | payer MEDICARE, MEDICAID, SELFPAY ==
--- NOTE | 2024-07-25 12:18 | P.CONAN_ITS ---
Documented by User: Sirisha Dean NP 07/25/24 12:19 HPI - Anesthesia Eval Consult details Narrative: 39yo F for Interstim Lead Test-Stage 2 s/p Stage 1 06/2024 with GA-LMA 3 Buprenorphine 75mcg BID PMFSH Active Problems Active Problems: All Active Problems PTSD (post-traumatic stress disorder) (Acute) Abdominal distension (Acute) Voiding dysfunction (Acute) Indwelling Joseph catheter present (Acute) MDD (major depressive disorder), single episode, moderate (Acute) Left forearm pain (Acute) Chronic pain syndrome (Acute) Mood disorder (Acute) Routine medical exam (Acute) Low back pain (Acute) Paresthesias (Acute) Urinary retention (Acute) Anxiety (Acute) Osteogenesis imperfecta (Acute) Jennifer-Danlos disease (Acute) MDD (major depressive disorder), recurrent episode, moderate (Acute) Myofascial pain syndrome (Acute) Past Medical History Medical History (Updated 07/25/24 @ 19:46 by Aurelio Hermosillo MD) Sacral nerve stimulator present MDD (major depressive disorder), recurrent episode, moderate Rectocele Juvenile osteoporosis Compression fx, lumbar spine History of wrist fracture Myofascial pain syndrome Benzodiazepine dependence Anxiety and depression Family History Family history of problems with anesthesia: No Surgical History History of Problems with Anesthesia: No Social History Social History Household Members: Family Household Members Other:: mom Housing: House Do you presently have visiting nurse or other home services: No Alcohol intake: former Patient Tobacco Use Status: Former Tobacco user Tobacco use type: Cigarette Cigarette Packs Per Day: 2 Cigarettes Per Day: 40.0 Years Smoked: Over 20 years e-Cigarette/Vaping Use: Never Used Second Hand Smoke Exposure: No Substance Use Type: Opiates service: No Sexual orientation: Straight/Heterosexual Meds Allergies Allergy/AdvReac Type Severity Reaction Status Date / Time azithromycin Allergy Itching Verified 06/21/24 12:35 levofloxacin [From Levaquin] Allergy Nightmare Verified 06/21/24 12:35 nitrofurantoin Allergy Itching Verified 06/21/24 12:35 [From Macrodantin] Home Medications ?Medication ?Instructions ?Recorded ?Confirmed ?Last Taken ?Type albuterol sulfate 90 mcg/actuation 2 puff inhalation QID PRN 05/18/24 05/26/24 Unknown History aerosol inhaler Shortness Of Breath ascorbic acid (vitamin C) 1,000 mg 1,000 mg PO DAILY 05/26/24 05/26/24 Unknown History tablet (Vitamin C) Exam Pertinent Lab Results Pertinent Lab Results: Laboratory Tests 07/07/24 07/23/24 14:53 10:21 WBC 7.5 Hgb 13.9 Hct 41.3 Plt Count 272 Sodium 143 Potassium 4.0 Chloride 109 H Carbon Dioxide 26 BUN 15 Creatinine 0.76 Narrative Narrative: EKG 05/2024 Vent. Rate : 057 BPM Atrial Rate : 057 BPM P-R Int : 130 ms QRS Dur : 092 ms QT Int : 448 ms P-R-T Axes : 065 053 064 degrees QTc Int : 436 ms Sinus bradycardia Otherwise normal ECG When compared with ECG of 12-JUN-2024 18:17, Fusion complexes are no longer Present Assessment and Plan Assessment Anesthesia Assessment: Chart Reviewed Final Anesthetic Review Family History of Problems with Anesthesia: No History of Problems with Anesthesia: No Documented by User: Garcia Higuera MD 07/26/24 07:43 [facility] Past Medical History Medical History (Updated 07/25/24 @ 19:46 by Aurelio Hermosillo MD) Sacral nerve stimulator present MDD (major depressive disorder), recurrent episode, moderate Rectocele Juvenile osteoporosis Compression fx, lumbar spine History of wrist fracture Myofascial pain syndrome Benzodiazepine dependence Anxiety and depression Patient : No Social History Social History Household Members: Family Household Members Other:: mom Housing: House Do you presently have visiting nurse or other home services: No Alcohol intake: former Patient Tobacco Use Status: Former Tobacco user Tobacco use type: Cigarette Cigarette Packs Per Day: 2 Cigarettes Per Day: 40.0 Years Smoked: Over 20 years e-Cigarette/Vaping Use: Never Used Second Hand Smoke Exposure: No Substance Use Type: Opiates service: No Sexual orientation: Straight/Heterosexual Meds Allergies Allergy/AdvReac Type Severity Reaction Status Date / Time azithromycin Allergy Itching Verified 06/21/24 12:35 levofloxacin [From Levaquin] Allergy Nightmare Verified 06/21/24 12:35 nitrofurantoin Allergy Itching Verified 06/21/24 12:35 [From Macrodantin] Home Medications ?Medication ?Instructions ?Recorded ?Confirmed ?Last Taken ?Type albuterol sulfate 90 mcg/actuation 2 puff inhalation QID PRN 05/18/24 05/26/24 Unknown History aerosol inhaler Shortness Of Breath ascorbic acid (vitamin C) 1,000 mg 1,000 mg PO DAILY 05/26/24 05/26/24 Unknown History tablet (Vitamin C) Exam Airway Mallampati Class: I TM Dist: >3cm Neck ROM: Full Loose/Missing/Broken Teeth: Yes Heart: ok Lungs: ok Assessment and Plan Assessment Anesthesia Assessment: Anesthesia Plan Discussed Final Anesthetic Review NPO: Yes ASA Class: III Final Preanesthetic Review: No Changes in Pt Med Stat, Meds/Allgs Chart Reviewed, Consent Obtained/Reviewed and Anes Risks/Benef Reviewed Patient Risk: Intermediate Procedure Risk: Intermediate Anesthetic Plan Anesthetic Plan: GA and Agree w/ Assess. and Plan Disposition: Standard PACU
[2024-07-26] VITALS (19 sets, daily range): BP systolic 100–134; BP diastolic 52–84; PULSE 59–87; RESP 16–20; TEMP 36.3–37.4; O2SAT 96–100; BMI 16.0
[2024-07-26] MEDS: Lactated Ringers 1,000 ML 100 ML IVCONT ×2 (07:37→16:47)
--- NOTE | 2024-07-26 07:39 | MHC.SHP ---
Pre-Procedural Eval Section A - 24 Hr Update-Section A only Date of Service: 07/26/24 Section B - Complete if H&P > 30 days Chief Complaint: Other specified disorders of urinary system Details of Present Illness: Joselin is a 39-year-old female scheduled for interstim stage 2 with multiple medical conditions including major depression, history of Jennifer Danlos syndrome, osteogenesis imperfecta, myofascial pain syndrome, H/o pelvic surgery with vaginal mesh; cystoscopy notes no anatomical obstruction. The patient has had some spontaneous voids with the trial phase, although continues to require CIC. She has had discomfort with the left lead. Discussed stage 2 implant on the right and removal of left lead. Relevant Family History (Specify if Yes): No Allergies: Allergies Allergy/AdvReac Type Severity Reaction Status Date / Time azithromycin Allergy Itching Verified 06/21/24 12:35 levofloxacin [From Levaquin] Allergy Nightmare Verified 06/21/24 12:35 nitrofurantoin Allergy Itching Verified 06/21/24 12:35 [From Macrodantin] Review of Systems Review of Systems Comment: 10 point ROS negative other than stated in HPI Exam Surgical H&P Exam: Normal: HEENT, Normal: Heart, Normal: Lungs, Normal: Abdomen and Normal: Skin Plan Diagnosis/Plan: Unchanged I have reviewed the history and physical and performed a pertinent physical examination on my patient. No changes have occurred unless specified. Stage 2 Implant on the right, remove left lead. Time Spent With Patient Time: Total time managing care of this patient today ____ minutes.
--- NOTE | 2024-07-26 07:50 | PC.NURSE ---
Dr. Higuera updated that patient had negative test upon admission on 06/20/24. Per RN Denisha Rosales patient has not had any visitors on her shift. Dr. Higuera stated ok to proceed as patient denies any chance of since her hospital admission.
--- NOTE | 2024-07-26 10:19 | W.PM.OPN ---
Operative Note Operative Note Date of Service: 07/26/24 Narrative: PreOperative Diagnosis:? ?? Urinary Retention Post Operative Diagnosis:? Urinary Retention Procedure:?Stage II Generator/Pacemaker Implant Left, Removal of right lead due to distal lead migration ? Programming of Generator Surgeon:?Dr Agata Conner Anesthesia:?General Findings:?Fluoroscopy noted significant distal lead migration on the right Procedure: After informed consent was verified the patient was brought to the operating room. General anesthesia administered. The patient was placed prone on the OR table, padding used including axillary rolls.? IV Antibiotics administered.? The patient was prepped and draped in the usual sterile fashion.? Safety pause time-out was performed. Fluoroscopy was performed. It was noted that the right lead had significant distal migration. Stimulation of left lead noted motor activity with Angel and great toe flexion. Lidocaine/marcaine plain administered over the incision area on the right side. The incision was opened. The wound was irrigated with antibiotic irrigation. The lead was identified and the hex screw was used to separate the lead from the external wire. The external wire was removed from the field. The incision over the right-sided lead was opened and the lead was removed. Attempts to access the S3 on the right side with this spinal needle was not successful as the needle kept hitting bone. Both incisions were closed on the right side. Attention was taken to the left side the incision was opened. With similar fashion the lead was identified and the hex screw was used to separate the lead from the external wire. The external wire was removed from the field. The wound was again copiously irrigated with antibiotic irrigation. Cautery and Metzenbaum were used to create a pouch in the subcutaneous tissue to house the pacemaker. The pacemaker was brought to the field and attached to the lead. The pacemaker was placed in the wound with writing facing upward; the impedence was checked and verified. There was good hemostasis. The wound was closed with 3-0 chromic and 4-0 monocryl for the skin. The Generator/pacemaker was programmed - program 2 - amplitude 1.7, 14 hertz, 210 pulse with The patient placed supine on the OR stretcher.? The patient tolerated the procedure well and was transferred to the recovery area in stable condition. Complications:? None EBL: Minimal Drains:? None
[2024-07-26] MEDS: fentaNYL citrate/PF 100 MCG/2 ML VIAL 50 MCG IVPUSH ×3 (10:33→10:49)
--- NOTE | 2024-07-26 11:01 | PHA.MEDREC ---
Pharmacy Consult ? Medication Reconciliation Pharmacy has completed the medication reconciliation. Reviewed home meds with list from discharge yesterday, list matches what was confirmed by nursing.
[2024-07-26] MEDS: Acetaminophen 325 MG TABLET 975 MG PO ×2 (11:06→18:45)
[2024-07-26] MEDS: oxyCODONE HCl Immed Release 5 MG TABLET PO (11:07)
[2024-07-26] MEDS: traMADoL HCL 50 MG TABLET PO ×2 (13:38→21:14)
--- NOTE | 2024-07-26 15:39 | PM.PSYCN ---
History of Present Illness Date of Service: 07/26/24 Chief Complaint: pain management Requesting physician: Agata Conner Discussed with referring provider: Yes Sources of Information: patient interviewed, chart reviewed and crisis/core team assessment reviewed HPI Narrative: Patient is a 39-year-old female with history of depression, PTSD, Jennifer Danlos syndrome, osteogenesis imperfecta, myofascial pain syndrome, migraines, juvenile osteoporosis, asthma w/ history of rectocele, vaginal mesh surgery. Patient was admitted to for treatment of chronic SI, PTSD and depression. During that time she was de-catheterized from an indwelling Joseph and initiated on a bladder stimulator to address urinary retention. Today she was discharged from today to surgical team to have bladder stimulator implanted. Psychiatric team continuing to follow patient. Patient says that her mood is all right and that she is feeling optimistic. Said surgery overall went well and she is recovering without problem. Patient said she no longer wants to go to respite. Patient reports I have been in the hospital for almost 2 months... and feels ready to get out; she feels that respite is really just extension of this hospitalization and that it is no longer necessary. Instead she says I rather go home [to her moms]... I can try going... I have techniques... She says she feels confident she will be able to call crisis if she is feeling unsafe. She is also encouraged that the therapist she is assigned is within walking distance of her mom's house. Regarding respite, while she does not feel a need to go at this time she likes the idea of using it as a resource if she gets overwhelmed by being at her mom's place. Patient is also interested in attending the partial day program. Discussed medications and patient feels that they are helpful and would like to remain on them. Discussed discharge and she feels she will be ready to go home this . Past Psychiatric History: Hospitalized October 2024 at [place] Hospitalized Apr 2025 at [facility] at [facility] primarily for eating disorder at age 18. Patient reports multiple hospitalizations for severe low weight and protein in her urine but these hospitalizations were on medical units. In 2021 the patient was in [facility] Emergency room and seen by AB and crisis after she was found wandering the streets she was expressing paranoid ideation stating that her family was trying to poison her she also reported at that time hearing evil voices that are head she reports she was talking to Kade and making statements I am and I am dying they are trying to kill me Medical Evaluation Reviewed: Yes [facility] Medical History (Updated 07/26/24 @ 17:28 by Aurelio Hermosillo MD) Indwelling Joseph catheter present MDD (major depressive disorder), recurrent severe, without psychosis Sacral nerve stimulator present Rectocele Juvenile osteoporosis Compression fx, lumbar spine History of wrist fracture Myofascial pain syndrome Benzodiazepine dependence Anxiety and depression Surgical History (Updated 07/26/24 @ 07:54 by Kylie Marquez RN) H/O cystoscopy Family History: Patient reports she grew up in [facility] and live with her mother and father and 2 brothers her father of cancer in 2021 she states her older brother has anxiety and her mother has depression Social History: Patient reports she did have friends growing up and she was straight a student until she left school at the age of 16 due to anorexia she had to drop out of school due to multiple admissions at [facility] she is socially isolated currently Trauma History: hx of trauma in addition to Multiple surgeries Diagnostics Vital Signs (24Hr): Vital Signs - 24 hr 07/26/24 07:43 07/26/24 10:24 07/26/24 10:29 Temperature 98.0 F 97.8 F Pulse Rate 72 74 66 Respiratory Rate 18 18 16 Blood Pressure 116/73 114/81 100/52 L Pulse Oximetry 100 100 100 Oxygen Delivery Method Room Air Room Air Room Air Oxygen Flow Rate 07/26/24 10:32 07/26/24 10:33 07/26/24 10:39 Temperature Pulse Rate 62 66 Respiratory Rate 16 16 16 Blood Pressure 134/83 118/82 Pulse Oximetry 100 100 Oxygen Delivery Method Room Air Room Air Oxygen Flow Rate 07/26/24 10:41 07/26/24 10:46 07/26/24 10:49 Temperature Pulse Rate 63 Respiratory Rate 16 16 16 Blood Pressure 122/84 Pulse Oximetry 100 Oxygen Delivery Method Room Air Oxygen Flow Rate 07/26/24 10:51 07/26/24 11:03 07/26/24 11:15 Temperature Pulse Rate 59 66 64 Respiratory Rate 16 16 16 Blood Pressure 127/83 118/80 122/79 Pulse Oximetry 100 100 100 Oxygen Delivery Method Room Air Room Air Nasal Cannula Oxygen Flow Rate 2 07/26/24 11:30 07/26/24 11:44 07/26/24 12:30 Temperature Pulse Rate 65 66 74 Respiratory Rate 16 16 16 Blood Pressure 120/79 111/72 104/72 Pulse Oximetry 96 97 99 Oxygen Delivery Method Room Air Room Air Room Air Oxygen Flow Rate 07/26/24 14:00 07/26/24 14:25 07/26/24 15:02 Temperature 99.3 F 99.3 F 97.5 F Pulse Rate 72 68 74 Respiratory Rate 16 16 16 Blood Pressure 110/73 111/62 126/83 Pulse Oximetry 100 100 100 Oxygen Delivery Method Room Air Room Air Room Air Oxygen Flow Rate BMI result Body Mass Index 16.0 Mental Status Exam Mental Status Exam Narrative: Pt is alert and oriented; behavior is cooperative, friendly and calm; patient is not in distress; dressed in hospital attire with adequate hygiene; mood is described as alright and affect congruent, bright, calm; eye contact appropriate; Speech is normal rate, volume and prosody and not pressured; no psychomotor agitation/retardation present; thought process is organized and goal directed; Thought content is on discharge and coping with feelings; otherwise pertinent to relevant topics and without any delusional content, paranoid ideations or grandiosity; no SI/no HI There is no evidence of perceptual disturbance. Patients insight and judgment fair and adequate Medications Medications Current Medications Acetaminophen (Acetaminophen 325 Mg Tablet) 975 mg PO Q8H [facility] Albuterol Sulfate (Albuterol Sulfate 90 Mcg 8 Gm Inhaler) 2 puff INHALE QID PRN PRN Reason: Shortness Of Breath Ascorbic Acid (Ascorbic Acid 500 Mg Tablet) 1,000 mg PO DAILY [facility] Benzocaine (Throat Lozenge, Medicated Lozenge) 1 lozenge MUCOUS MEM Q2H PRN PRN Reason: Sore Throat Bethanechol Chloride (Bethanechol Chloride 25 Mg Tablet) 25 mg PO TID [facility] Bupropion HCl (Bupropion Hcl Xl 150 Mg Tab.Er.24h) 450 mg PO DAILY [facility] Calcium Carbonate (Calcium Carbonate 750 Mg Tab.Chew) 750 mg PO Q4H PRN PRN Reason: Heartburn Cariprazine (Cariprazine Hcl 3 Mg Capsule) 6 mg PO DAILY [facility] Clonazepam (Clonazepam 0.5 Mg Tablet) 0.5 mg PO BID@0900,1700 [facility] Clonidine HCl (Clonidine Hcl 0.1 Mg Tablet) 0.1 mg PO BEDTIME ELMO; Protocol Clonidine HCl (Clonidine Hcl 0.1 Mg Tablet) 0.1 mg PO Q4H PRN; Protocol PRN Reason: anxiety Hydroxyzine HCl (Hydroxyzine Hcl 25 Mg Tablet) 25 mg PO Q6H PRN PRN Reason: Anxiety Lactated Ringer's (Lr) 1,000 mls @ 100 mls/hr IVCONT .Q10H [facility] Last Admin: 07/26/24 07:37 Dose: 100 mls/hr Magnesium Hydroxide (Milk Of Magnesia 30 Ml Oral.Susp) 30 ml PO DAILY PRN PRN Reason: Constipation Melatonin (Melatonin 3 Mg Tablet) 6 mg PO BEDTIME PRN PRN Reason: Insomnia Nicotine (Nicotine 7 Mg Patch.Td24) 7 mg TRANSDERMA DAILY [facility] Patient Own Medication (Belbuca 75 Mcg Film) 1 each BUCCAL BID [facility] Ondansetron HCl (Ondansetron Odt 4 Mg Tab.Rapdis) 4 mg TRANSLINGU Q6H PRN PRN Reason: Nausea And Vomiting Polyethylene Glycol (Polyethylene Glycol 3350 17 Gm Powd.Pack) 17 gm PO BID PRN PRN Reason: constipation Quetiapine Fumarate (Quetiapine Fumarate 50 Mg Tablet) 150 mg PO BEDTIME [facility] Senna/Docusate Sodium (Sennosides/Docusate Sodium Tablet) 2 tab PO BID [facility] Sodium Chloride (0.9 % Sodium Chloride Flush 3 Ml Syringe) 3 ml IVFLUSH QSHIFT [facility] Tamsulosin HCl (Tamsulosin Hcl 0.4 Mg Capsule) 0.4 mg PO BEDTIME [facility] Tramadol HCl (Tramadol Hcl 50 Mg Tablet) 50 mg PO Q6H PRN PRN Reason: Pain, Severe (Pain Scale 4-10) Last Admin: 07/26/24 13:38 Dose: 50 mg Allergies Allergies Allergy/AdvReac Type Severity Reaction Status Date / Time azithromycin Allergy Itching Verified 07/26/24 09:26 levofloxacin [From Levaquin] Allergy Nightmare Verified 07/26/24 09:26 nitrofurantoin Allergy Itching Verified 07/26/24 09:26 [From Macrodantin] Assessment & Plan Assessment & Plan (1) MDD (major depressive disorder), recurrent severe, without psychosis: Status: Acute Code(s): F33.2 - Major depressive disorder, recurrent severe without psychotic features (2) PTSD (post-traumatic stress disorder): Status: Acute Code(s): F43.10 - Post-traumatic stress disorder, unspecified (3) Urinary retention: Status: Acute Code(s): R33.9 - Retention of urine, unspecified (4) Jennifer-Danlos disease: Status: Acute Code(s): Q79.60 - Jennifer-Danlos syndrome, unspecified (5) Osteogenesis imperfecta: Status: Acute Code(s): Q78.0 - Osteogenesis imperfecta (6) Voiding dysfunction: Status: Acute Code(s): N39.8 - Other specified disorders of urinary system Plan Patient is a 39-year-old female with history of depression, PTSD, Jennifer Danlos syndrome, osteogenesis imperfecta, myofascial pain syndrome, migraines, juvenile osteoporosis, asthma w/ history of rectocele, vaginal mesh surgery. Patient was admitted to for treatment of chronic SI, PTSD and depression. During that time she was de-catheterized from an indwelling Joseph and initiated on a bladder stimulator to address urinary retention. Today she was discharged from today to surgical team to have bladder stimulator implanted. Psychiatric team continuing to follow patient. Patient says that her mood is all right and that she is feeling optimistic. Said surgery overall went well and she is recovering without problem. Patient said she no longer wants to go to respite. Patient reports I have been in the hospital for almost 2 months... and feels ready to get out; she feels that respite is really just extension of this hospitalization and that it is no longer necessary. Instead she says I rather go home [to her moms]... I can try going... I have techniques... She says she feels confident she will be able to call crisis if she is feeling unsafe. She is also encouraged that the therapist she is assigned is within walking distance of her mom's house. Regarding respite, while she does not feel a need to go at this time she likes the idea of using it as a resource if she gets overwhelmed by being at her mom's place. Patient is also interested in attending the partial day program. Discussed medications and patient feels that they are helpful and would like to remain on them. Discussed discharge and she feels she will be ready to go home this . Impression: Patient is doing much better and has significantly improved following her inpatient admission on [facility]. Prior to her psychiatric admission, patient had been struggling with SI for over 6 months. Patient's depression has mostly resolved and she has made significant strides in learning to cope with her feelings. Patient's SI has for the most part, fully resolved. While on the unit, she intermittently reported having SI but only in the context of if she had to go back and live at her mother's house. However, this too has evaporated and patient is able to entertain the idea of moving back to her mother's and remains safe; she is optimistic and feeling confident that she can cope this situation... Even to the point of deciding to forego Respite and rather just discharged home to her mother's place. Patient is feeling safe, without any SI and looking forward to discharge. She agrees there is no further utility in inpatient admission; she is future oriented, has coping strategies and a safety plan for what she would do if she again started to struggle with SI. Returning to the community and living at her mother's will be challenging. And she remains a relatively high-risk patient, vulnerable to decompensation and will undoubtedly continue to struggle with intermittent SI and possibly even self-harm. However this is chronic and a part of her baseline which she accepts and fully agrees that returning to community is her next step in treatment. Plan: Continue surgical treatment plan Psychiatry will continue to follow Discharge planning for if okayed by surgery Total time managing care of this patient today ____ minutes. Patient educated on: diagnosis, medication risk/benefits, therapeutic strategies and medical condition Informed Consent: understands
[2024-07-26] MEDS: clonazePAM 0.5 MG TABLET PO (16:08)
[2024-07-26] MEDS: Bethanechol Chloride 25 MG TABLET PO ×2 (16:08→21:13)
[2024-07-26 19:03] LABS: UPreg QC Valid YES; Urine Pregnancy NEGATIVE (NEGATIVE)
[2024-07-26] MEDS: Tamsulosin HCL 0.4 MG CAPSULE PO (21:13)
[2024-07-26] MEDS: cloNIDine HCL 0.1 MG TABLET PO (21:13)
[2024-07-26] MEDS: Sennosides/Docusate Sodium TABLET 2 TAB PO (21:13)
[2024-07-26] MEDS: QUEtiapine Fumarate 50 MG TABLET 150 MG PO (21:14)
[2024-07-27] MEDS: Acetaminophen 325 MG TABLET 975 MG PO ×3 (02:27→19:23)
[2024-07-27] MEDS: Lactated Ringers 1,000 ML 100 ML IVCONT ×2 (02:28→13:01)
[2024-07-27 03:46] VITALS: BP 102/63; PULSE 71; RESP 16; TEMP 36.5; O2SAT 98
[2024-07-27 07:44] VITALS: O2SAT 95
[2024-07-27 07:56] VITALS: BP 104/67; PULSE 74; RESP 18; TEMP 37.1; O2SAT 93
[2024-07-27] MEDS: Nicotine 7 MG PATCH.TD24 TRANSDERMA (08:03)
[2024-07-27] MEDS: traMADoL HCL 50 MG TABLET PO ×2 (08:03→19:25)
[2024-07-27] MEDS: Ascorbic Acid 500 MG TABLET 1000 MG PO (08:04)
[2024-07-27] MEDS: buPROPion HCl XL 150 MG TAB.ER.24H 450 MG PO (08:05)
[2024-07-27] MEDS: clonazePAM 0.5 MG TABLET PO ×2 (08:05→17:22)
[2024-07-27] MEDS: Bethanechol Chloride 25 MG TABLET PO ×3 (08:05→20:40)
[2024-07-27] MEDS: Cariprazine HCl 3 MG CAPSULE 6 MG PO (08:05)
--- NOTE | 2024-07-27 09:43 | HO.POSTANES ---
Post Anesthesia Evaluation Post Anesthesia Evaluation Date of Service: 07/27/24 Vital Signs: Vital Signs Temp Pulse Resp BP Pulse Ox O2 Del Method 07/27/24 07:56 98.7 F 74 18 104/67 93 Room Air 07/27/24 07:44 95 Room Air 07/27/24 03:46 97.7 F 71 16 102/63 98 Room Air Anesthesia: General Mental Status: Awake Pain Control: Satisfactory Nausea/Vomiting: None Hydration: Adequate Anesthesia-Related Issues: No Anes. Related Issues
[2024-07-27] MEDS: Sulfamethox/Trimeth 800/160 TABLET 1 TAB PO ×2 (11:52→21:01)
[2024-07-27 13:27] VITALS: BMI 16.0
[2024-07-27] MEDS: Butalb/Acetamin/Caff 50/325/40 TABLET 1 TAB PO (13:28)
--- NOTE | 2024-07-27 13:40 | MHC.CLN ---
NUTRITION DIET=REGULAR. TRANSFERRED FROM ADULT PSYCH TO MED-SURG FOR PROCEDURE. PER PRIOR ADM DOC, DISLIKES ENSURE BUT WILL TAKE MAGIC CUP. ADDING MAGIC CUP BID TO PROVIDE 580 KCALS, 18 G PROTEIN. QUALIFIES MODERATELY MALNOURISHED IN THE CONTEXT OF CHRONIC ILLNESS. ENCOURAGE PO INTAKE ABLE. SEE CLINICAL NUTRITION ASSESSMENT 07/27/24.
[2024-07-27 15:09] VITALS: BP 119/72; PULSE 82; RESP 18; TEMP 36.2; O2SAT 96
--- NOTE | 2024-07-27 15:59 | MHC.CM.PN ---
PT FROM [facility] WHERE SHE WILL RETURN WHEN DCD
--- NOTE | 2024-07-27 17:07 | PM.UROPN ---
Subjective Subjective Date of Service: 07/27/24 Interval history: s/p interstim pacemaker implant/ left lead, S3. Patient needs CIC, she is feeling the vibrations in the vaginal area. Physical Exam Vital Signs: Vital Signs: Last Vital Signs Temp 97.2 F 07/27/24 15:09 Pulse 82 07/27/24 15:09 Resp 18 07/27/24 15:09 BP 119/72 07/27/24 15:09 Pulse Ox 96 07/27/24 15:09 O2 Del Method Room Air 07/27/24 15:09 O2 Flow Rate 2 07/26/24 11:15 BMI result Body Mass Index 16.0 Urology Results Labs Labs: Laboratory Results - last 24 hr 07/26/24 18:47 Urine Test NEGATIVE Progress Note: A&P Assessment and plan (1) Urinary retention: Status: Acute Plan s/p interstim pacemaker implant/ left lead, S3. Patient needs CIC, she is feeling the vibrations in the vaginal area. [employer] rep was available today to evaluate program setting. Pt is cleared by psych for discharge. Patient has been taught CIC technique but still has some difficulty. Time Spent With Patient Time: Total time managing care of this patient today ____ minutes.
[2024-07-27 19:52] VITALS: BP 136/82; PULSE 79; RESP 18; TEMP 36.8; O2SAT 95
[2024-07-27] MEDS: Tamsulosin HCL 0.4 MG CAPSULE PO (20:39)
[2024-07-27] MEDS: QUEtiapine Fumarate 50 MG TABLET 150 MG PO (20:39)
[2024-07-27] MEDS: cloNIDine HCL 0.1 MG TABLET PO (20:40)
[2024-07-27] MEDS: BELBUCA 1 EACH BUCCAL (21:02)
[2024-07-27] MEDS: 0.9 % Sodium Chloride Flush 3 ML SYRINGE IVFLUSH (23:19)
[2024-07-28] MEDS: Butalb/Acetamin/Caff 50/325/40 TABLET 1 TAB PO ×2 (00:28→11:23)
--- NOTE | 2024-07-28 01:04 | PC.NURSE ---
Prior to change of shift at 1900, this RN was reported that patient was straight catheterized for 600 mls at about 1800. Patient is alert and oriented, at 2100 patient reported feeling like she had a full bladder, patient bladder scanned for 796 mls. There is no active straight catheterize order. Dr. Conner notified, telephone order for straight catheterize now. 2129 patient straight catheterized for 900 mls clear yellow urine. Patient tolerated well.
[2024-07-28 04:00] VITALS: BP 105/75; PULSE 69; RESP 16; TEMP 36; O2SAT 97
[2024-07-28 07:21] VITALS: BP 101/72; PULSE 85; RESP 16; TEMP 36.5; O2SAT 97
[2024-07-28] MEDS: 0.9 % Sodium Chloride Flush 3 ML SYRINGE IVFLUSH (08:59)
[2024-07-28] MEDS: Bethanechol Chloride 25 MG TABLET PO (09:00)
[2024-07-28] MEDS: Ascorbic Acid 500 MG TABLET 1000 MG PO (09:00)
[2024-07-28] MEDS: Cariprazine HCl 3 MG CAPSULE 6 MG PO (09:00)
[2024-07-28] MEDS: Sennosides/Docusate Sodium TABLET 2 TAB PO (09:02)
[2024-07-28] MEDS: buPROPion HCl XL 150 MG TAB.ER.24H 450 MG PO (09:02)
[2024-07-28] MEDS: Sulfamethox/Trimeth 800/160 TABLET 1 TAB PO (09:02)
[2024-07-28] MEDS: clonazePAM 0.5 MG TABLET PO (09:02)
[2024-07-28] MEDS: BELBUCA 1 EACH BUCCAL (09:03)
--- NOTE | 2024-07-28 13:25 | PC.NURSE ---
Pt. was bladder scanned for 308ml this AM, voided 600ml later on the late morning. Pt. stated Urology team straight cath her in the afternoon, rebladder scanned at 1320 for 153ml.
[2024-07-28] MEDS: traMADoL HCL 50 MG TABLET PO (13:35)
--- NOTE | 2024-07-28 13:35 | MHC.CM.PN ---
Addendum entered by Gaviota Hairston 07/28/24 16:22: IMM 07/27/24 Original Note: Patient is ready to discharge to home today, self care. She has arranged for transportation home. Supplies have been provided to the patient.
== END 2024-07-28 16:00 | disposition home or self-care (01) ==
LOC: HO.SSS 07:25 → HO.S3 14:09
PROVIDERS: Nurse Practitioner; PCP Family Medicine; Visit Provider Urology
PROC: (CPT 64590; principal; 2024-07-26 07:30)
DX: N39.8 Other specified disorders of urinary system (principal); R33.9 Retention of urine, unspecified; M79.18 Myalgia, other site; J45.909 Unspecified asthma, uncomplicated; F33.2 Major depressive disorder, recurrent severe without psychotic features; F43.10 Post-traumatic stress disorder, unspecified; M81.0 Age-related osteoporosis without current pathological fracture; Q79.60 Ehlers-Danlos syndrome, unspecified; Q78.0 Osteogenesis imperfecta; G43.909 Migraine, unspecified, not intractable, without status migrainosus; N81.6 Rectocele; F41.8 Other specified anxiety disorders; F13.20 Sedative, hypnotic or anxiolytic dependence, uncomplicated; Z88.1 Allergy status to other antibiotic agents; Z87.81 Personal history of (healed) traumatic fracture; Z87.891 Personal history of nicotine dependence; Z98.890 Other specified postprocedural states
CPT/HCPCS: 64590; 81025; C1767; C1787; J0690; J1580; J3010; J3370; J7120

== ENCOUNTER → 2024-07-26 07:25 | Outpatient (BNV) | payer MEDICARE, MEDICAID, SELFPAY | PROVIDERS: PCP Family Medicine; Visit Provider Psychiatry & Neurology Psychiatry | DX: F33.2 Major depressive disorder, recurrent severe without psychotic features (principal); F43.11 Post-traumatic stress disorder, acute; R33.9 Retention of urine, unspecified; Q79.60 Ehlers-Danlos syndrome, unspecified | CPT/HCPCS: 99222 ==

== ENCOUNTER → 2024-07-26 07:25 | Outpatient (BNV) | payer MEDICARE, MEDICAID, SELFPAY | PROVIDERS: PCP Family Medicine; Visit Provider Urology | DX: R33.9 Retention of urine, unspecified (principal) | CPT/HCPCS: 64590; 95971; 99024 ==

== ENCOUNTER 2024-08-03 12:20 | Emergency (ER) | payer MEDICARE, MEDICAID, SELFPAY ==
--- NOTE | ~2024-08-03 | US_ITS ---
EXAMINATION: US TRIPLEX LOWER EXTREMITY, BILATERAL CLINICAL INFORMATION: Bilateral leg pain and swelling COMPARISON: None available. TECHNIQUE: Color-flow triplex imaging with spectral analysis and compression Doppler were performed on the bilateral lower extremities. FINDINGS: Respiratory variation, normal compression and augmented flow are noted throughout the bilateral lower extremities. The visualized common femoral vein, superficial femoral vein, profunda femoral vein, popliteal vein and midcalf peroneal and posterior tibial venous segments show no evidence of deep venous thrombosis bilaterally. There is no Stewart's cyst. US/US venous duplex LE BI IMPRESSION: No evidence of deep venous thrombosis involving the bilateral lower extremities. Electronically signed by: Brigido Collins MD 08/03/2024 02:47 PM EST
[2024-08-03 12:32] VITALS: BP 126/88; PULSE 92; O2SAT 99
[2024-08-03 12:58] VITALS: BP 105/74; PULSE 86; RESP 16; TEMP 37.2; O2SAT 97; BMI 17.2
--- NOTE | 2024-08-03 13:23 | ED_ITS ---
HPI - Extremity Problem General Chief complaint: Extremity Problem Stated complaint: LLE SWELLING/THROBBING/PAIN,SEC 21 PER EMS Time Seen by Provider: 08/03/24 13:15 Source: patient and EMS Mode of arrival: EMS Limitations: no limitations History of Present Illness ED Provider: DR. Alcocer HPI Narrative: 35-year-old female brought in from [facility] under section 21 for evaluation of left lower extremity pain and swelling times 2-3 days. Patient was admitted to [facility] yesterday for depression and was sent today for further evaluation of left lower extremity swelling and tenderness, patient currently do not feel SI or HI, no hallucination, declined using any drugs or alcohol. Related Data Previous Rx's ?Medication ?Instructions ?Recorded acetaminophen 325 mg tablet 975 mg (3 x 325 mg) PO Q8H #0 tabs 07/25/24 cariprazine 6 mg capsule (Vraylar) 6 mg PO DAILY 30 days #30 caps 07/26/24 albuterol sulfate 90 mcg/actuation 2 puff inhalation QID PRN 07/28/24 aerosol inhaler Shortness Of Breath 30 days #6.7 grams ascorbic acid (vitamin C) 1,000 mg 1,000 mg PO DAILY 30 days #30 tabs 07/28/24 tablet (Vitamin C) bethanechol chloride 25 mg tablet 25 mg PO TID 30 days #90 tabs 07/28/24 buprenorphine HCl 75 mcg buccal 75 mcg buccal BID 30 days #60 ea 07/28/24 film (Belbuca) bupropion HCl 150 mg 24 hr tablet, 150 mg PO DAILY 30 days #30 tabs 07/28/24 extended release bupropion HCl 300 mg 24 hr tablet, 300 mg PO QAM 30 days #30 tabs 07/28/24 extended release emutjzovcg-[id number]-hfuiddpa 1 tab PO DAILY PRN migraine pain 07/28/24 50 mg-325 mg-40 mg tablet 30 days #4 tabs clonazepam 0.5 mg tablet 0.5 mg PO BID@0900,1700 30 days 07/28/24 #60 tabs clonidine HCl 0.1 mg tablet 0.1 mg PO Q4H Insomnia or daytime 07/28/24 anxiety 30 days #90 tabs lithium carbonate 300 mg 600 mg (2 x 300 mg) PO BEDTIME 30 12/05/24 tablet,extended release days #60 tabs nicotine 7 mg/24 hr daily 7 mg transdermal DAILY PRN smoking 07/28/24 transdermal patch cessation 28 days #28 ea quetiapine 150 mg tablet 150 mg PO DAILY 30 days #30 tabs 07/28/24 sennosides 8.6 mg-docusate sodium 2 tab PO BID 30 days #120 tabs 07/28/24 50 mg tablet (Senna Plus) sulfamethoxazole 400 1 tab PO DAILY antibiotic 07/28/24 mg-trimethoprim 80 mg tablet prophylaxis/daily cath #60 tabs (Bactrim) sulfamethoxazole 800 1 tab PO BID 3 days #6 tabs 07/28/24 mg-trimethoprim 160 mg tablet (Bactrim DS) tamsulosin 0.4 mg capsule 0.4 mg PO BEDTIME 30 days #30 caps 07/28/24 Allergies Allergy/AdvReac Type Severity Reaction Status Date / Time azithromycin Allergy Itching Verified 08/03/24 12:59 levofloxacin [From Levaquin] Allergy Nightmare Verified 08/03/24 12:59 nitrofurantoin Allergy Itching Verified 08/03/24 12:59 [From Macrodantin] Review of Systems Review of Systems: All other systems are reviewed and are negative Constitutional: Reports as per HPI and Reports no additional constitutional complaints Eyes: Reports as per HPI and Reports no additional eye complaints Reports system reviewed and no additional complaints, except as documented Cardiovascular: Reports as per HPI and Reports no additional cardiovascular complaints Respiratory: Reports as per HPI and Reports no additional respiratory complaints Gastrointestinal: Reports as per HPI and Reports no additional gastrointestinal complaints Genitourinary: Reports no additional female genitourinary complaints Musculoskeletal: Reports no additional musculoskeletal complaints Skin/Breast: Reports system reviewed and no additional complaints, except as docu Psychiatric: Reports no additional psychiatric complaints Endocrine: Reports no additional endocrine complaints Hematologic/Lymphatic: Reports no additional hematologic/lymphatic complaints Allergic/Immunologic: Reports no additional allergic/immunologic complaints Reports system reviewed and no additional complaints, except as documented and Reports Abnormal speech present [facility] Past Medical History Medical History Mood disorder Anxiety Indwelling Joseph catheter present MDD (major depressive disorder), recurrent severe, without psychosis Sacral nerve stimulator present Rectocele Juvenile osteoporosis Compression fx, lumbar spine History of wrist fracture Myofascial pain syndrome Benzodiazepine dependence Anxiety and depression Surgical History H/O cystoscopy Social History Social History Household Members: Family Household Members Other:: discharged from today, going to med surg post op Housing: House Are you a primary long term acute care registered nurse to a significant other at home: No Do you presently have visiting nurse or other home services: No Alcohol intake: former Comment: oob with steady gait Patient Tobacco Use Status: Former Tobacco user Tobacco use type: Cigarette Cigarette Packs Per Day: 2 Cigarettes Per Day: 40.0 Years Smoked: Over 20 years e-Cigarette/Vaping Use: Never Used Second Hand Smoke Exposure: No Substance Use Type: Opiates service: No Sexual orientation: Straight/Heterosexual Physical Exam Vital Signs: Vital Signs: Last Vital Signs Temp 98.9 F 08/03/24 12:58 Pulse 86 08/03/24 12:58 Resp 16 08/03/24 12:58 BP 105/74 08/03/24 12:58 Pulse Ox 97 08/03/24 12:58 O2 Del Method Room Air 08/03/24 12:58 BMI result Body Mass Index 17.2 Vital signs have been reviewed and appear to be correct. Blood pressure elevated. Heart rate normal. Respiratory rate normal. Temperature normal. Oxygen saturation normal. Appearance: Alert. Oriented X3. No acute distress. Head: Normal external exam. Normocephalic. Atraumatic. No Mansfield signs noted. No raccoon eyes noted Eyes: PERRLA. EOMI. Conjunctiva and sclera normal. Eyelids normal. ENT: TM's Normal. Pharynx normal. Uvula midline. Moist mucous membranes. No trismus noted. No drooling noted. No muffled voice noted. Neck: Normal inspection. Neck supple. FROM. No adenopathy. Thyroid Normal. No meningeal signs. No neck mass noted. CVS: Normal heart rate and rhythm. Heart sound normal. No murmurs noted. Pulses normal throughout. Respiratory: No respiratory distress. Painless inspiration. Breath sounds normal. No wheezes/rales/rhonchi noted. Chest nontender. No accessory muscle usage noted or decreased air movement noted. Abdomen: Soft and nontender. Bowel sounds normal in all 4 quadrants. No distention noted. No organomegaly noted. No visible injury noted. Back: No CVA tenderness. Full range of motion noted. Skin: Skin warm and dry. Normal skin color. Normal skin turgor. No rashes/lesions/lacerations noted. Extremities: No lower extremity edema. Extremities exhibit normal range of motion. Extremities nontender. Neuro: Oriented X 3. Cranial nerve exam: II-XII are grossly intact No motor deficit. No sensory deficit. Reflexes normal. Course Reevaluation(s) Reevaluation #1: 39-year-old female has been admitted to [facility] for depression SI, came in for a left lower extremity swelling and pain, ultrasound shows no DVT, physical exam reveals no suspicion for injuries. Will discharge back to [facility] patient is under section 21. Time: 16:00 Medical Decision Making Differential Diagnosis Differential Diagnoses: The differential diagnosis associated with the presentation includes (DVT, fracture, dislocation of the left lower extremity, cellulitis LLE.) Admission/Observation Consideration of admission/observation: Escalation of care including admission/observation considered Independent Interpretation I performed an independent interpretation of an: Ultrasound (Venous ultrasound; no DVT.) Radiology Impression Discussion of test interpretation with radiology: I have reviewed the radiologist's reading. Discharge Plan Discharge Clinical Impression: Leg pain, left Patient Disposition: Xfer SNF Transfer Details: To [facility], under section 21 Instructions: Leg Pain (ED) Prescriptions: No Action bupropion HCl 150 mg Tablet Extended Release 24 Hr 150 mg PO DAILY 30 Days Qty: 30 0RF Rx Instructions: take with 300mg tab [id number]-irycixfolcpnr-rwbz 50-325-40 mg Tablet 1 tab PO DAILY PRN (Reason: migraine pain) 30 Days Qty: 4 0RF ascorbic acid (vitamin C) [Vitamin C] 1,000 mg Tablet 1,000 mg PO DAILY 30 Days Qty: 30 0RF clonidine HCl 0.1 mg Tablet 0.1 mg PO Q4H 30 Days Qty: 90 0RF Protocol: Hold for SBP< HOLD for SBP < : 90 clonazepam 0.5 mg Tablet 0.5 mg PO BID@0900,1700 30 Days Qty: 60 0RF sennosides-docusate sodium [Senna Plus] 8.6-50 mg Tablet 2 tab PO BID 30 Days Qty: 120 0RF Rx Instructions: hold for loose stool lithium carbonate 300 mg Tablet Extended Release 600 mg PO BEDTIME 30 Days Qty: 60 0RF bethanechol chloride 25 mg Tablet 25 mg PO TID 30 Days Qty: 90 0RF tamsulosin 0.4 mg Capsule 0.4 mg PO BEDTIME 30 Days Qty: 30 0RF albuterol sulfate 90 mcg/actuation HFA aerosol inhaler 2 puff inhalation QID PRN (Reason: Shortness Of Breath) 30 Days Qty: 6.7 1RF nicotine 7 mg/24 hr Patch 24 Hour 7 mg transdermal DAILY PRN (Reason: smoking cessation) 28 Days Qty: 28 0RF Rx Instructions: Remove at bedtime bupropion HCl 300 mg tablet extended release 24 hr 300 mg PO QAM 30 Days Qty: 30 0RF Rx Instructions: take with 150mg tab buprenorphine HCl [Belbuca] 75 mcg film 75 mcg buccal BID 30 Days Qty: 60 0RF quetiapine 150 mg tablet 150 mg PO DAILY 30 Days Qty: 30 0RF sulfamethoxazole-trimethoprim [Bactrim DS] 800-160 mg tablet 1 tab PO BID 3 Days Qty: 6 0RF sulfamethoxazole-trimethoprim [Bactrim] 400-80 mg tablet 1 tab PO DAILY Qty: 60 1RF Rx Instructions: After completing Bactrim DS twice a day start Bactrim SS daily acetaminophen 325 mg Tablet 975 mg PO Q8H Qty: 0 0RF Vraylar 6 mg capsule 6 mg PO DAILY 30 Days Qty: 30 0RF Print Language: Slovak
[2024-08-03 18:30] VITALS: BP 105/74; PULSE 86; RESP 16; TEMP 37.2; O2SAT 97
== END 2024-08-03 18:31 | disposition skilled nursing facility (03) ==
PROVIDERS: Emergency Provider Emergency Medicine
DX: M79.662 Pain in left lower leg (principal); Z87.891 Personal history of nicotine dependence
CPT/HCPCS: 93970; 99282; 99284

== ENCOUNTER 2024-08-08 13:18 | Outpatient (AMB) | payer MEDICARE, MEDICAID, SELFPAY ==
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
[2024-08-08 13:42] VITALS: BP 113/74; PULSE 86; RESP 16; TEMP 36.9; O2SAT 98; BMI 18.3
== END 2024-08-08 15:00 | disposition home or self-care (01) ==
PROVIDERS: PCP Family Medicine; Visit Provider Nurse Practitioner Family
DX: Z23 Encounter for immunization (principal)

== ENCOUNTER → 2024-08-08 13:18 | Outpatient (BNVA) | payer MEDICARE, MEDICAID, SELFPAY | PROVIDERS: PCP Family Medicine; Visit Provider Nurse Practitioner Family | DX: Z00.01 Encounter for general adult medical examination with abnormal findings (principal); J45.909 Unspecified asthma, uncomplicated; F33.2 Major depressive disorder, recurrent severe without psychotic features; R42 Dizziness and giddiness; F41.9 Anxiety disorder, unspecified; F17.210 Nicotine dependence, cigarettes, uncomplicated; Z23 Encounter for immunization | CPT/HCPCS: 90471; 90656; 96127; 96160; 99202; 99385 ==

== ENCOUNTER 2024-09-12 11:36 | Outpatient (AMB) | payer MEDICARE, MEDICAID, SELFPAY ==
--- NOTE | 2024-09-12 11:37 | A.OFFPC_ITS ---
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 Required: No Allergies azithromycin Allergy (Verified 09/12/24 11:54) Itching levofloxacin [From Levaquin] Allergy (Verified 09/12/24 11:54) Nightmare nitrofurantoin [From Macrodantin] Allergy (Verified 09/12/24 11:54) Itching Medication List - Last Reconciled 09/12/24 by Cassia King, UMANG-SHIREEN acetaminophen 975 mg (3 x 325 mg) PO Q8H albuterol sulfate 90 mcg/actuation 2 puffs inhalation QID PRN 30 days ascorbic acid (vitamin C) (Vitamin C) 1,000 mg PO DAILY 30 days bethanechol chloride 25 mg PO TID 30 days buprenorphine HCl (Belbuca) 75 mcg buccal BID 30 days bupropion HCl XL 300 mg PO QAM 30 days bupropion HCl XL 150 mg PO DAILY 30 days ykffpwixvi-sfsawkudbwvfw-vjdu 50-325-40 mg 1 tab PO DAILY PRN cariprazine (Vraylar) 6 mg PO DAILY 30 days clonazepam 0.5 mg PO BID@0900,1700 30 days clonidine HCl 0.1 mg See Protocol PO Q4H 30 days lithium carbonate ER 600 mg (2 x 300 mg) PO BEDTIME 30 days meclizine 25 mg PO DAILY PRN quetiapine 150 mg PO DAILY 30 days tamsulosin 0.4 mg PO BEDTIME 30 days Tobacco use date assessed: 08/08/24 Dental Screening Dental Screen Date: 08/08/24 HPI HPI Comments History of Present Illness Details Here today for a Transitional Care Management Visit Discharge summary reviewed. 39-year-old female with osteogenesis imp erfecta, Jennifer-Danlos syndrome, anorexia nervosa, major depressive disorder, generalized anxiety, multiple bone fractures, suicide attempt, delayed bladder emptying require neuro stim admitted for dizziness and lightheadedness with associated bradycardia and dry mouth. Labs significant for elevated lithium level. Sinus Asim with lowest heart rate of 47, echo performed and within normal limits, Psychiatry recommended admission. She did receive IV fluids. Labs reviewed, significant for low pre-albumin at 15.3, mild anemia, normal electrolytes, Vit d 12.3, lithium level on September 04, normal urinalysis Admission Date: 09/03/24 Discharge Date: 09/05/24 Hospital: [facility] Date of interactive contact with Nurse Navigator: as documented in chart Pending diagnostic tests/treatments: none Pending consults: none Referrals: Nutrition and Psych f/u, monitor labs for refeeding, fu Vit D levels. [facility] Cards 09/23/24 Kenyatta Vivar MD is prescriber; in counseling next appt Thursday @ [facility]. Medications reconciled & updated. No new medications. No dose changes. Schoenchen on hold During todays TCM visit, the d/c summary was reviewed, along with the need for or follow-up on pending diagnostic tests and treatments, as necessary int eraction with other health clinical care leader who will assume or reassume care of the beneficiary?s system-specific problems was done or is being worked on, education was provided to the beneficiary, family, guardian, and/or caregiver, referrals to establish or re-establish and arrange needed community resources we completed, assistance in scheduling required follow-up with community providers and services & finally updated medication list given to patient/caregiver History of Present Illness The patient is a 39-year-old female presenting with post-hospitalization follow- up. She had wbwl-ij-werm hospital admissions of two days each, primarily for psychiatric care. The patient reports ongoing symptoms of feeling unwell, including bradycardia, with home pulse oximetry readings in the 40s, dizziness upon standing, and recent changes in urinary output (decreased). Additionally, the patient mentions episodes of seeing white spots and headaches when she feels dizzy. This is not new. She has anorexia nervosa, with maintained inadequate nutrition and fluid intake contributing to her bradycardia and other symptoms. She mentions a difficult experience with feeding tubes in the past due to incorrect size placement, causing trauma and subsequent PTSD. She is yet to establish follow-up with an outpatient psychiatric prescriber but is in therapy. Her care includes upcoming cardiology consultation. - Reports drinking vitamin water and Gat orade, but primarily consumes water over other beverages. - Has negative experiences with certain healthcare facilities impacting care choices. - Is engaging in outpatient medical supp ort and therapy, refuting additional partial hospitalization options presently. Exam awake alert chronically ill appearing older than stated age RRR LS CTAB Mood and affect appropriate Plan - Monitor the patient?s bradycardia and altered heart rate; ensure proper electrolyte intake with a recommendation to consume electrolyte solutions like Gatorade. - Reinforce outpatient psychiatric care establishment with necessary psychiatric medications, defer lithium reinitiation pending further subspecialty input. - Schedule routine blood work to check e lectrolytes and vitamin D levels today - results are stable, see below. - Keep upcoming cardiology appointment o n 23 September to assess any needed cardiovascular interventions. - Provide support for the management of anorexia nervosa with continued encouragement for nutritional intake. - Refer to general assembler Patient was informed and verbally consented to the use of an ambient scribe for clinic note documentation during this visit. Discussion Notes I discussed with the patient the current management of her bradycardia, emphasizing the importance of electrolyte solutions to improve her symptoms. We talked through the risks of low heart rate and its link to inadequate nutrition and potential anorexia impacts. The patient expressed her concerns about past experiences with feeding tubes and I acknowledged the resultant trauma, confirming that current management would use conservative approaches unless acutely needed. We discussed the continuation of her psychiatric care, reinforcing the need for outpatient follow-ups with a psychiatrist for medication stabilization, including lithium considerations, and engaged therapy sessions starting shortly. We highlighted the relevance of maintaining her forthcoming cardiology consult. I reiterated the importance of blood work to reassess electrolyte and vitamin D status, promising timely communication of any red flags. I called the [facility] to see if they could see her as a drop in visit. Explain that they do not managed lithium the only manage addiction. A call was placed to the adult bridge program [facility]. They confirmed that the to providers listed above were part of [facility] 1 was a doctor that is able to prescribe and 1 as a counselor. I offered the patient assistance in getting into inpatient treatment for her anorexia and comorbid conditions however she declined. She has a follow up with her primary care scheduled September 28. I have advised for her to call Dr. Marquez today to get an appointment. Continue all medications as currently prescribed. Educated on reasons to return to the office or seek additional care. She is a very complex patient with high-risk of readmission. I have placed a referral to Nurse Sosa to help her access resources. I have also provided the crisis #. She did not want to go to [facility] - despite my encouragement. After the visit i rec'd a call from the triage nurse that pt called c/o of feeling dizzy, HR in the 40s. Advised this is chronic and reminded her to drink electrolyte solution. Total time spent caring for the patient today was 75 minutes. This includes time spent before the visit reviewing the chart, time spent during the visit, and time spent after the visit on documentation, reviewing laboratory results, diag nostic imaging, medications, performing a medically necessary evaluation, counseling on diagnoses, care coordination, ordering appropriate tests, ordering appropriate medications, review of tests performed by other providers, reporting test results with the patient, communication with other healthcare providers. [facility] Medical History (Updated 09/12/24 @ 15:08 by [facility]) Anorexia Left wrist injury Scoliosis Swelling Osteoporosis Arthritis Asthma Mood disorder Indwelling Joseph catheter present MDD (major depressive disorder), recurrent severe, without psychosis Sacral nerve stimulator present Rectocele Juvenile osteoporosis Compression fx, lumbar spine History of wrist fracture Myofascial pain syndrome Benzodiazepine dependence Anxiety and depression Surgical History (Updated 08/08/24 @ 14:07 by Ale More) History of vaginal surgery History of bladder surgery H/O wrist surgery History of left knee surgery History of right knee surgery History of brain surgery History of placement of ear tubes H/O cystoscopy Family History (Updated 08/08/24 @ 14:02 by Ale More) Mother High blood pressure Cardiovascular disease Father Prostate cancer Social History Household Members: Family Household Members Other:: discharged from today, going to med surg post op Housing: House Are you a primary dialysis patient care technician to a significant other at home: No Do you presently have visiting nurse or other home services: No Alcohol intake: former Comment: oob with steady gait Patient Tobacco Use Status: Current everyday Tobacco user Tobacco use type: Cigarette Cigarette Packs Per Day: 3 Cigarettes Per Day: 40.0 Years Smoked: Over 20 years e-Cigarette/Vaping Use: Currently Using Second Hand Smoke Exposure: No Substance Use Type: Opiates service: No Current occupational status: disabled Current occupational exposures/hazards: No Sexual orientation: Straight/Heterosexual Cognitive needs: No Hearing needs: No Vision needs: No Questionnaire PHQ-9 Over the last 2 weeks, how often have you been bothered by any of the following problems? 29228 - PHQ-9 Billing: Patient declined-do not bill Source: Developed by Drs. Myles Mccoy, Annalisa Holguin, Jaime Villasenor and colleagues, with an educational iqra from [employer]. Thrive Questionnaire Date Thrive assessed: 09/12/24 I am a: Patient What is your living situation today?: I do not have a steady places to live Within the past 12 months, did the food you bought not last and you didn't have the money to get more?: Never true Within the past 12 months, did you worry whether your food would run out before you got money to buy more?: Never true Do you have trouble paying for medicines?: No Do you have trouble getting transportation to medical appointments?: No Do you have trouble paying your heating and electricity bill?: No Do you have trouble taking care of your child, family member or friend?: No Do you have trouble with day-to-day activities such as bathing, preparing meals, shopping, managing finances, etc.?: No Are you currently unemployed and looking for a job?: No Are you interested in more education?: Yes Please select the resources that you would like help with: Housing/Penitentiary Currently or been in a relationship where the following occur: I choose not to answer THRIVE Score: 1 AUDIT C Alcohol Use Questionnaire (AUDIT-C) 1. How often do you have a drink containing alcohol?: Never 3. How often do you have six or more drinks on one occasion?: Never Total Score: 0 Score Reviewed/Action Taken: Yes ANIBAL-7 AMB Questionnaire ANIBAL-7 Date ANIBAL - 7 assessed: 09/12/24 Feeling nervous, anxious, or on edge: 1 = Several days Not being able to stop or control worryin = Several days Worrying too much about different things: 2 = More than half the days Trouble relaxin = Several days Being so restless that it is hard to sit still: 1 = Several days Becoming easily annoyed or irritable: 2 = More than half the days Feeling afraid as if something awful might happen: 3 = Nearly every day Total ANIBAL-7 score (0-4 normal; 5-9 mild; 10-14 moderate; 15-21 severe): 11 Source: Developed by Drs. Myles Mccoy, Annalisa Holguin, Jaime Villasenor and colleagues, with an educational iqra from [employer]. ANIBAL-7 Assessment Billing ANIBAL-7 Assessment Tool: ANIBAL-7 Assessment 30796 Physical exam (Primary Care) Vital Signs: Last Vital Signs Pulse 61 09/12/24 11:41 Resp 12 09/12/24 11:41 BP 98/68 09/12/24 11:41 Pulse Ox 98 09/12/24 11:41 Oxygen Delivery Method Room Air 09/12/24 11:41 BMI result Body Mass Index 17.2 Tobacco/Smoking Status: Tobacco use Status Tobacco use date assessed 08/08/24 09/12/24 11:40 Patient Tobacco Use Status Current everyday Tobacco 09/12/24 11:40 Tobacco use type Cigarette 09/12/24 11:40 e-Cigarette/Vaping Use Currently Using 09/12/24 11:40 Thrive Assessment: Date of Thrive Assessment Date Thrive assessed 09/12/24 09/12/24 11:40 Currently or been in a relationship where the following occur: I choose not to answer Results Reviewed Results Reviewed: RUN: 09/12/24 1400 PAGE 1 [facility] [address] [place] [phone] Senior Functional Analyst: Jaspreet Beltran M.D. Specimen Inquiry Name: Joselin Gonzales Age/Sex: 39/F : 1985 Unit#: [id number] Attend Dr: Cassia King WORD PROCESSING OPERATOR-BC Re09/12/24 Status: REG REF Location: [facility] Disch: SPEC : [id number] LIANG: 09/12/24-1210 STATUS: COMP REQ : [id number] RECD: 09/12/24-[address]: Debi Machado MANAGER OF RADIOLOGY COMP: 09/12/24-1353 ENTERED: 09/12/[address]: Cassia King ORDERED: TP, Alb Test Result Flag Reference Protein, Total 6.7 6.5-8.0 g/dL Alb 4.1 3.5-5.0 g/dL RUN: 09/12/24 1456 PAGE 1 [facility] [address] [place] [phone] Senior Functional Analyst: Jaspreet Beltran M.D. Specimen Inquiry Name: Joselin Gonzales Age/Sex: 39/F : 1985 Unit#: [id number] Attend Dr: Cassia King Re09/12/24 Status: REG REF Location: [facility] Disch: SPEC : [id number] LIANG: 09/12/24 STATUS: COMP REQ : [id number] RECD: 09/12/[address]: Cassia King COMP: 09/12/24-1423 ENTERED: 09/12/[address]: ORDERED: CMP, Vitamin D 25-OH Test Result Flag Reference Sodium 139 135-145 mmol/L Potassium 3.7 3.3-5.1 mmol/L CL 108 96-108 mmol/L CO2 24 22-29 mmol/L Gap 11 L 12-20 BUN 11 9-16 mg/dL Creat 0.71 0.5-1.4 mg/dL eGFR > 60 Chronic Kidney Disease: Estimated GFR < 60 mL/min/1.73m2 Severe Kidney Disease: Estimated GFR < 15 mL/min/1.73m2 Glucose, Random 86 60-115 mg/dL CA 8.7 # 8.4-10.2 mg/dL Total Bili 0.4 0.0-1.0 mg/dL AST (GOT) 22 5-31 U/L ALT (GPT) 24 0-31 U/L Protein, Total 6.7 6.5-8.0 g/dL Alb 4.1 3.5-5.0 g/dL Alk Phos 58 39-117 U/L Vit D 25-OH Tot 31.8 >30 ng/mL Health Based Reference Values* < 20 ng/mL Deficient 20-30 ng/mL Insufficient > 30 ng/mL Sufficient *Klever OSWALD. N Engl J Med. 2007;357:266-280 Care must be taken in interpreting Vitamin D results from different laboratories and methodologies. Published data demonstrated that results from patients undergoing hemodialysis may show a negative bias when tested with various automated 25-OH vitamin D assays when compared to LC-MS/MS. When testing samples from patients whose predominant form of Vitamin D is Vitamin D2, such as patients receiving Vitamin D2 supplementation, results that are subtherapeutic should be confirmed with another method such as LC-MS/MS. END OF REPORT END OF REPORT * Coding Level of Care Code TCM High MDM <= 7 Days Diagnoses Hospital discharge follow-up Z09 Bradycardia R00.1 Schoenchen use Z79.89 Anorexia nervosa F50.00 Mild protein-calorie malnutrition E44.1 Malnutrition type: protein-calorie malnutrition Protein-calorie malnutrition severity: mild MDD (major depressive disorder), recurrent severe, without psychosis F33.2 ANIBAL (generalized anxiety disorder) F41.1 CPT Codes [facility] OUTPT/OFFICE VIS - G2212 Additional Codes ANIBAL-7 Assessment Billing - ANIBAL-7 Assessment Tool: ANIBAL-7 Assessment 35234 ([id number]) Assessment & Plan Assessment & Plan (1) Hospital discharge follow-up: Code(s): Z09 - Encounter for follow-up examination after completed treatment for conditions other than malignant neoplasm (2) Bradycardia: Code(s): R00.1 - Bradycardia, unspecified Category: Medical (3) Schoenchen use: Code(s): Z79.899 - Other retirement (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 Category: Medical (4) Anorexia nervosa: Code(s): F50.00 - Anorexia nervosa, unspecified Category: Medical (5) Malnutrition: Code(s): E46 - Unspecified protein-calorie malnutrition Category: Medical Qualifiers: Malnutrition type: protein-calorie malnutrition Protein-calorie malnutrition severity: mild Qualified Code(s): E44.1 - Mild protein-calorie malnutrition (6) MDD (major depressive disorder), recurrent severe, without psychosis: Code(s): F33.2 - Major depressive disorder, recurrent severe without psychotic features Category: Medical (7) ANIBAL (generalized anxiety disorder): Code(s): F41.1 - Generalized anxiety disorder Category: Medical Plan . Orders: Orders Comprehensive Met. Panel Today Z00.00 - Encounter for general adult medical examination without abnormal findings Vitamin D 25-OH Total Today Z00.00 - Encounter for general adult medical examination without abnormal findings Referrals Medical Nutrition Therapy Referral E46 - Unspecified protein-calorie malnutrition, F50.00 - Anorexia nervosa, unspecified Nurse Navigator Referral F33.2 - Major depressive disorder, recurrent severe without psychotic features, F50.00 - Anorexia nervosa, unspecified Medications: Discontinued sulfamethoxazole-trimethoprim 400-80 mg (Bactrim) After completing Bactrim DS twice a day start Bactrim SS daily Discontinued Reason: Patient Completed Course 1 tab PO DAILY 60 tabs 1RF antibiotic prophylaxis/daily cath sulfamethoxazole-trimethoprim 800-160 mg (Bactrim DS) Discontinued Reason: Patient Completed Course 1 tab PO BID 3 days 6 tabs 0RF On Hold lithium carbonate ER Hold Comment: Doctor's Order 600 mg (2 x 300 mg) PO BEDTIME 30 days 60 tabs 0RF Patient Instructions: Crisis Hotlines Suicide prevention, domestic violence, and other crisis hotlines for youth, young adults, and their friends and families. [facility]: The [facility]line helps youth who have run away, are thinking about running away, or who already ran away but are ready to come home. Parents and guardians can also contact the hotline if they are worried about their child running away or if their child has already left home. The hotline is available 24 hours a day, seven days a week. Youth, parents, and guardians can also use the online chat feature on the [employer] [facility]'s website to ask for help and get support, or [place] [address]. [facility] National Suicide Prevention Lifeline: The National Suicide Prevention Lifeline is a network of local crisis centers that are available 16/03 to provide support for youth and adults who are in any kind of emotional crisis. In addition to the main hotline number listed above, there are several other numbers to call depending on your needs: South Korean Language: Deaf and Hard of Hearin1-262.571.3220 Veterans: Disaster Distress: Anyone can also use their online chat feature on their website. [employer] Suicide Prevention Lifeline [facility] Helpline: The [facility] Helpline is available to anyone in [place] who is need of emotional support. Anyone can call or text the helpline to receive help from specially trained volunteers. [place] high school and college students can also get online support through the IMHear_ program. For high school students, volunteers ages 15-18 are available Thursday- from 6-9PM. For college students, IMHear_ is available Thursday-Thursday from 5-9PM. The [employer] - The [employer] is a 16/03 crisis intervention and suicide prevention hotline for LGBTQ youth. Youth can also text Timur to for support, or use the online chat feature on the [employer]'s website. [employer] is available Thursday-Thursday between 3-10PM. [employer]Chat is available seven days a week between 3-10PM. [employer]: [employer] is for anyone who is being affected by domestic violence or dating violence. Volunteers at [employer] speak Faroese and South Korean, and [employer] also has a service that can provide translation in more than 130 languages. TTY:
[2024-09-12 11:41] VITALS: BP 98/68; PULSE 61; RESP 12; O2SAT 98; BMI 17.2
== END 2024-09-12 14:21 | disposition home or self-care (01) ==
PROVIDERS: PCP Nurse Practitioner Family; Visit Provider Nurse Practitioner Family
DX: F50.00 Anorexia nervosa, unspecified (principal); E44.1 Mild protein-calorie malnutrition; F33.2 Major depressive disorder, recurrent severe without psychotic features; Z09 Encounter for follow-up examination after completed treatment for conditions other than malignant neoplasm; R00.1 Bradycardia, unspecified; Z79.899 Other long term (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; F41.1 Generalized anxiety disorder

== ENCOUNTER → 2024-09-12 11:36 | Outpatient (BNVA) | payer MEDICARE, MEDICAID, SELFPAY | PROVIDERS: PCP Family Medicine; Visit Provider Nurse Practitioner Family ==

== ENCOUNTER 2024-09-12 12:16 | Outpatient (REF) | payer MEDICARE, MEDICAID, SELFPAY ==
[2024-09-12 13:53] LABS: Albumin Level 4.1 g/dL (3.5-5.0); Total Protein 6.7 g/dL (6.5-8.0)
[2024-09-12 14:05] LABS: Alanine Aminotransferase 24 U/L (0-31); Albumin Level 4.1 g/dL (3.5-5.0); Alkaline Phosphatase 58 U/L (39-117); Anion Gap 11 (12-20); Aspartate Amino Transferase 22 U/L (5-31); Bilirubin Total 0.4 mg/dL (0.0-1.0); Blood Urea Nitrogen 11 mg/dL (9-16); Calcium 8.7 mg/dL (8.4-10.2); Carbon Dioxide 24 mmol/L (22-29); Chloride 108 mmol/L (96-108); Estimated Glomerular Filt Rate > 60; Glucose Random 86 mg/dL (60-115); Potassium 3.7 mmol/L (3.3-5.1); Sodium 139 mmol/L (135-145); Total Protein 6.7 g/dL (6.5-8.0)
[2024-09-12 14:23] LABS: Vitamin D 25-OH Total 31.8 ng/mL (>30)
== END 2024-09-12 12:17 | disposition home or self-care (01) ==
LOC: HO.WFDLDS 12:16
PROVIDERS: Nurse Practitioner Family; Visit Provider Nurse Practitioner Family
DX: Z09 Encounter for follow-up examination after completed treatment for conditions other than malignant neoplasm (principal); R00.1 Bradycardia, unspecified; F50.00 Anorexia nervosa, unspecified; E44.1 Mild protein-calorie malnutrition; F33.2 Major depressive disorder, recurrent severe without psychotic features; F41.1 Generalized anxiety disorder; Z79.899 Other long term (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; Z00.00 Encounter for general adult medical examination without abnormal findings
CPT/HCPCS: 36415; 80053; 82040; 82306; 84155; 96127; 99496

== ENCOUNTER 2024-11-03 14:57 | Outpatient (REF) | payer MEDICARE, MEDICAID, SELFPAY ==
[2024-11-03 18:43] LABS: Influenza A PCR NEGATIVE (Negative); Influenza B PCR NEGATIVE (Negative); Resp Syncy Virus RNA Qual PCR NEGATIVE (Negative); SARS COV2 PCR INHOUSE NEGATIVE (Negative)
--- OUTSIDE RECORDS SUMMARY | 2024-11-03 19:10 | XMS_ITS | Encounter Summary ---
Author Organization [facility] Address [address] [place] [address] Care Team Providers Care Deputy Sheriff Generalist/Bailiff Name Role Phone Unavailable Primary Care Provider Unavailabl e Encounter Details Date Type Department Care Team (Late st Contact Info) Description 08/10/2024 Lab Requisition [facility] - Main Lab [address] [facility] [place] [address] Shavonne Zavaleta, MAGDA [address] [place] [address] Social History Tobacco Use Types [...] to direct LDL Lab Routine Ordered: 024 [place] [address] Lab Routine Ordered: Hemoglobin A1c Lab Routine Ordered: 1 10/11/2023 documented as of this encounter Visit Diagnoses Not on filedocumented in this encounter
--- OUTSIDE RECORDS SUMMARY | 2024-11-03 19:10 | XMS_ITS | Encounter Summary ---
Author Organization [facility] Address [address] [place] [address] Care Team Providers Care Adobe Block Maker Name Role Phone Unavailable Primary Care Provider Unavailabl e Encounter Details Date Type Department Care Team (Late st Contact Info) Description 08/03/2024 Lab Requisition [facility] - Main Lab [address] [facility] [employer] [place] [address] Shavonne Zavaleta, MAGDA [address] [place] [address] Other penitentiary (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 Social History Tobacco Use [...] LDL Routine 08/03/2024 7:00 AM EST Other penitentiary (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 HEMOGLOBIN A1C Routine 08/03/2024 7:00 AM EST Other penitentiary (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 LITHIUM LEVEL Routine 08/03/2024 7:00 AM EST Other petroleum terminal plant operator (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 documented in this encounter Results * (ABNORMAL) [place] level (08/03/2024 7:00 AM EST) [place] Level 0.5(L) 0.6 - 1.2 mEq/L LAB CHEMISTRY METHOD 08/03/2024 1:[address] [facility] Blood Venous blood specimen / Unknown Venipuncture / Unknown 08/03/2024 7:00 AM EST 08/03/2024 12:08 PM EST us Shavonne Zavaleta AUTOMATION CLERK LAB BLOOD ORDERABLES Fi nal Result [facility] [address] [place] [address], [place] [phone] * (ABNORMAL) Lipid panel with reflex to direct LDL (08/03/2024 7:00 AM EST) Cholesterol 201(H) 0 - 200 mg/dL LAB CHEMISTRY METHOD 08/03/2024 1:28 PM [facility] Triglycerides 185(H) 0 - 150 mg/dL LAB CHEMISTRY METHOD 08/03/2024 1:28 PM [facility] HDL 87 >=40 mg/dL LAB CHEMISTRY METHOD 08/03/2024 1:28 PM [facility] LDL Calculated 77 0 - 100 mg/dL LAB CHEMISTRY METHOD 08/03/2024 1:28 PM [facility] VLDL Cholesterol Rahul 37 mg/dL LAB CHEMISTRY METHOD 08/03/2024 1:[address] [facility] Non HDL Chol. (LDL+VLDL) 114 <145 mg/dL LAB CHEMISTRY METHOD 08/03/2024 1:28 PM [facility] Chol/HDL Ratio 2.3 0.0 - 4.4 LAB CHEMISTRY METHOD 08/03/2024 1:28 PM [facility] Blood Venous blood specimen / Unknown Venipuncture / Unknown 08/03/2024 7:00 AM EST 08/03/2024 12:08 PM EST us Shavonnecassius Zavaleta AUTOMATION CLERK LAB BLOOD ORDERABLES Fi nal Result Performing Organization Address City/[facility]/ZIP Co de Phone Number [facility] [address] [place] [address], [place] [phone] * Hemoglobin A1c (08/03/2024 7:00 AM EST) Hemoglobin A1C 4.7 <6.5 % LAB CHEMISTRY METHOD 08/03/2024 1:[address] [facility] Mean Bld Glu Estim. 88 mg/dL LAB CHEMISTRY METHOD 08/03/2024 1:[address] [facility] Blood Venous blood specimen / Unknown Venipuncture / Unknown 08/03/2024 7:00 AM EST 08/03/2024 11:51 AM EST Shavonne Zavaleta AUTOMATION CLERK LAB BLOOD ORDERABLES Fi nal Result Performing Organization Address [facility]/ZIP Co de Phone Number 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
--- OUTSIDE RECORDS SUMMARY | 2024-11-03 19:10 | XMS_ITS | Clinical Summary ---
Author Organization 299 [facility] Address [address] [place] [address] Phone Care Team Providers Care Director Insurance Name Role Phone Unavailable Primary Care Provider Unavailabl e Encounters Date Type Department Care Team Description 08/10/2024 Lab Requisition [facility] - Main Lab [address] [facility] [place] [address] Shavonne Zavaleta NP from Last 3 Months Surgical History Surgery Date Site/Laterality Comments KNEE SURGERY 07/27/07 PROCEDURE: HISTORICAL KNEE SURGERY; COMMENT: recurrent left patella dislocation- 5 surgeries Left knee OTHER SURGICAL HISTORY PROCEDURE: NE CRANIECTOMY/CRANIOTOMY EXC FOREIGN BODY BRAIN; COMMENT: BB [...] Status Comments Brother Alive Healthy Father Al[place] Maternal Grandfather Lung ca ncer Maternal Grandmother [...] LDL Routine 08/03/2024 7:00 AM EST 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 from Last 3 Months or Most Recently Relevant to Health Maintenance Results * (ABNORMAL) Lipid panel with reflex to direct LDL (08/03/2024 7:00 AM EST) Cholesterol 201(H) 0 - 200 mg/dL LAB CHEMISTRY METHOD 08/03/2024 1:28 PM EST [facility] Triglycerides 185(H) 0 - 150 mg/dL LAB CHEMISTRY METHOD 08/03/2024 1:28 PM EST [facility] HDL 87 >=40 mg/dL LAB CHEMISTRY METHOD 08/03/2024 1:28 PM EST [facility] LDL Calculated 77 0 - 100 mg/dL LAB CHEMISTRY METHOD 08/03/2024 1:28 PM [facility] VLDL Cholesterol Rahul 37 mg/dL LAB CHEMISTRY METHOD 08/03/2024 1:28 PM EST [facility] Non HDL Chol. (LDL+VLDL) 114 <145 mg/dL LAB CHEMISTRY METHOD 08/03/2024 1:28 PM EST [facility] Chol/HDL Ratio 2.3 0.0 - 4.4 LAB CHEMISTRY METHOD 08/03/2024 1:28 PM [facility] Blood Venous blood specimen / Unknown Venipuncture / Unknown 08/03/2024 7:00 AM EST 08/03/2024 12:08 PM EST us Shavonne Zavaleta PNEUMATIC JACK OPERATOR LAB BLOOD ORDERABLES Fi nal Result [facility] [address] [place] [address], [place] [phone] from Last 3 Months or Most Recently Relevant to Health Maintenance
== END 2024-11-03 14:58 | disposition home or self-care (01) ==
LOC: HO.LAB 14:57
PROVIDERS: PCP Nurse Practitioner Family; Visit Provider Nurse Practitioner Family
DX: J06.9 Acute upper respiratory infection, unspecified (principal); R06.2 Wheezing; F41.1 Generalized anxiety disorder; F33.2 Major depressive disorder, recurrent severe without psychotic features; Z91.51 Personal history of suicidal behavior
CPT/HCPCS: 0241U; 96127; 99212

== ENCOUNTER 2024-11-03 14:57 | Outpatient (AMB) | payer MEDICARE, MEDICAID, SELFPAY ==
--- NOTE | 2024-11-03 14:58 | A.OFFPC_ITS ---
Vital Signs 11/03/24 15:06 Height 5 ft Weight 94 lb BMI 18.4 BP 125/77 Blood Pressure Location Rt brachial Position Sitting Respiration 16 Pulse 104 H Pulse Source Pulse Oximeter Temp 97.5 F Temp Source Temporal Artery Scan Pulse Oximetry (%) 96 Oxygen Delivery Method Room Air Intake Visit Reasons: Discharge from [facility] (give pt. mask) Intake Note: patient here for hospital discharge follow up c/o congestion and cough and runny nose. Career Guidance Counselor Required: No Is last menstrual period known: Yes Last menstrual period: 10/26/24 Post menopausal: No Patient : No Allergies azithromycin Allergy (Verified 11/03/24 15:20) Itching levofloxacin [From Levaquin] Allergy (Verified 11/03/24 15:20) Nightmare nitrofurantoin [From Macrodantin] Allergy (Verified 11/03/24 15:20) Itching Tobacco use date assessed: 11/03/24 Dental Screening Dental Screen Date: 11/03/24 Did you have a dental visit in the last 12 months?: No Did you have a dental problem in the last 6 months where you did not have access to dental care?: No Was dental information given to patient?: Yes HPI HPI Comments History of Present Illness Details 39-year-old female presents for hospital discharge follow-up visit. She was hospitalized at [facility] between 10/11/2024 and 10/18/2024. Hospital course The patient is a 39-year-old female with history of Jennifer-Danlos syndrome, osteogenesis imperfecta, anorexia nervosa, severe malnutrition, anxiety, depression, history of suicide attempt, delayed bladder emptying currently on neurostimulator, history of myofascial pain who presented to [facility] emergency room after an intentional overdose with suicide ideation. Patient was admitted at [facility] from 10/04/2024-10/06/2024 for intentional drug overdose with suicidal intent and was discharged home after being cleared from Psychiatry. Patient returns to [facility] ER on 10/11/2024 for ingestion of unknown amount of meclizine, trazodone, hydroxyzine, and clonidine 1 hour prior to arrival on 10/11/2024 with suicidal intention. Patient was admitted with working diagnosis of intentional drug overdose. Patient was hemodynamically medically stable. Lab data showed H&H 9.7/28.8, normal chemistries, positive barbiturates in the urine drug screen. Acetaminophen, garfield icylate, and lithium levels were undetectable. Influenza/RSV/COVID-19 test were negative. QTC was elevated. Patient was monitored on telemetry. Serial EKGs been performed. Psychiatry was consulted. Patient has been transferred to [facility] for further management. Patient will need inpatient psychiatric stabilization after patient is medically cleared for discharge. Continue to monitor the patient on telemetry for 24 hours with serial EKG monitoring to trend QTCs. Was medical cleared for discharge, crisis to be consulted for discharge planning. Upon arrival patient is afebrile and vitally stable. EKG reads as AV dual-paced rhythm with prolonged AV conduction, QTC 469; compared with ECG of 10/12/2024 13:12, electronic ventricular pacemaker has replaced sinus rhythm. Patient complains of nausea and chronic abdominal pain. She denies chest pain, shortness of breath. She was started on lurasidone 40 mg daily per psychiatry consult. Psychiatry discontinued regular, clonazepam, clonidine, lithium, and bupropion. She was discharged to [facility] on 10/18/2024. She notes that she was admitted at [facility] between 10/18/2024 and 10/31/2024.; she forgot to bring discharge documentation as planned for this visit. Document from [facility] not currently available. She notes controlled mood since she was recently discharged home. She denies SI or HI, no AVH. She notes that she has not established with a psychiatrist and is looking for one. She is willing to be referred to a partial hospitalization program. She reports nasal congestion, hoarse voice, intermittent frontal headache, and intermittent productive cough with green phlegm. Her symptoms started the day she was discharged from [facility] and has been ongoing for the past 4 days. She denies constitutional symptoms. She smokes of a pack of cigarettes daily. Recent labs from [facility] reviewed and unrevealing. [facility] Medical History (Updated 11/03/24 @ 15:52 by Debi Machado CNP) Anorexia Left wrist injury Scoliosis Swelling Osteoporosis Arthritis Asthma Mood disorder Indwelling Joseph catheter present MDD (major depressive disorder), recurrent severe, without psychosis Sacral nerve stimulator present Rectocele Juvenile osteoporosis Compression fx, lumbar spine History of wrist fracture Myofascial pain syndrome Benzodiazepine dependence Anxiety and depression Surgical History (Updated 08/08/24 @ 14:07 by Ale More MA) History of vaginal surgery History of bladder surgery H/O wrist surgery History of left knee surgery History of right knee surgery History of brain surgery History of placement of ear tubes H/O cystoscopy Family History (Updated 08/08/24 @ 14:02 by Ale More MA) Mother High blood pressure Cardiovascular disease Father Prostate cancer Social History Household Members: Family Household Members Other:: discharged from today, going to med surg post op Housing: House Are you a primary senior care assistant to a significant other at home: No Do you presently have visiting nurse or other home services: No Alcohol intake: former Comment: oob with steady gait Patient Tobacco Use Status: Current everyday Tobacco user Tobacco use type: Cigarette Cigarette Packs Per Day: 3 Cigarettes Per Day: 40.0 Years Smoked: Over 20 years e-Cigarette/Vaping Use: Currently Using Second Hand Smoke Exposure: No Substance Use Type: Opiates service: No Current occupational status: disabled Current occupational exposures/hazards: No Sexual orientation: Straight/Heterosexual Cognitive needs: No Hearing needs: No Vision needs: No Female Reproductive History Menstrual Date of last menstrual period: 10/26/24 Questionnaire PHQ-9 Over the last 2 weeks, how often have you been bothered by any of the following problems? 1. Little interest or pleasure in doing things: several days 2. Feeling down, depressed, or hopeless: several days 3. Trouble falling or staying asleep, or sleeping too much: several days 4. Feeling tired or having little energy: several days 5. Poor appetite or overeating: not at all 6. Feeling bad about yourself - or that you are a failure or have let yourself or your family down: not at all 7. Trouble concentrating on things, such as reading the newspaper or watching television: not at all 8. Moving or speaking so slowly that other people could have noticed. Or the opposite - being so fidgety or restless that you have been moving around a lot more than usual: not at all 9. Thoughts that you would be better off or of hurting yourself in some way: not at all Total score: 4 Depression Screening Interpretation: Negative Depression Screening Done: Yes 80175 - PHQ-9 Billing: Yes Source: Developed by Drs. Myles Mccoy, Annalisa Holguin, Jaime Villasenor and colleagues, with an educational iqra from [employer]. Thrive Questionnaire Date Thrive assessed: 09/09/24 I am a: Patient What is your living situation today?: I do not have a steady places to live I choose not to answer this question Within the past 12 months, did the food you bought not last and you didn't have the money to get more?: Never true Within the past 12 months, did you worry whether your food would run out before you got money to buy more?: Never true Do you have trouble paying for medicines?: No Do you have trouble getting transportation to medical appointments?: No Do you have trouble paying your heating and electricity bill?: No Do you have trouble taking care of your child, family member or friend?: No Do you have trouble with day-to-day activities such as bathing, preparing meals, shopping, managing finances, etc.?: No Are you currently unemployed and looking for a job?: No Are you interested in more education?: Yes Please select the resources that you would like help with: Housing/Fdc Currently or been in a relationship where the following occur: I choose not to answer THRIVE Score: 1 ANIBAL-7 AMB Questionnaire ANIBAL-7 Date ANIBAL - 7 assessed: 11/03/24 Feeling nervous, anxious, or on edge: 1 = Several days Not being able to stop or control worryin = Not at all Worrying too much about different things: 1 = Several days Trouble relaxin = More than half the days Being so restless that it is hard to sit still: 0 = Not at all Becoming easily annoyed or irritable: 1 = Several days Feeling afraid as if something awful might happen: 0 = Not at all Total ANIBAL-7 score (0-4 normal; 5-9 mild; 10-14 moderate; 15-21 severe): 5 Source: Developed by Drs. Myles Mccoy, Annalisa Holguin, Jaime Villasenor and colleagues, with an educational iqra from [employer]. ANIBAL-7 Assessment Billing ANIBAL-7 Assessment Tool: ANIBAL-7 Assessment 88641 Review of Systems Const Details: Const Denies chills, Denies fatigue, Denies fever(s), Reports headache(s) and Denies weakness ENT Denies dizziness and Reports headache(s) Card Denies chest pain, Denies lightheadedness, Denies dyspnea and Denies other (Palpitations) Resp Reports cough, Denies dyspnea, Denies wheezing and Denies other ( shortness of breath) GI Denies abdominal pain, Denies melena, Denies hematochezia, Denies change in bowel habits, Denies dyspepsia and Denies nausea Denies hematuria and Denies dysuria Musc Denies abnormal gait, Denies myalgias, Denies arthralgias, Denies numbness and Denies tingling Skin/Breast Denies rash, Denies unusual bruising and Denies wounds Neuro Denies abnormal gait, Denies dizziness, Reports headache(s), Denies memory loss, Denies numbness, Denies Sensory deficit (Neuro), Denies tingling and Denies weakness Psych Denies anxiety, Denies depression, Denies memory loss Endo Denies cold intolerance, Denies fatigue, Denies heat intolerance, Denies polydipsia and Denies polyuria Aller/Immun Denies wheezing Physical exam (Primary Care) Vital Signs: Last Vital Signs Temp 97.5 F 11/03/24 15:06 Pulse 104 H 11/03/24 15:06 Resp 16 11/03/24 15:06 BP 125/77 11/03/24 15:06 Pulse Ox 96 11/03/24 15:06 Oxygen Delivery Method Room Air 11/03/24 15:06 BMI result Body Mass Index 18.4 Tobacco/Smoking Status: Tobacco use Status Tobacco use date assessed 11/03/24 11/03/24 15:08 Patient Tobacco Use Status Current everyday Tobacco 11/03/24 15:00 Tobacco use type Cigarette 11/03/24 15:00 e-Cigarette/Vaping Use Currently Using 11/03/24 15:00 PHQ-9: PHQ-9 Score PHQ-9: Total score 4 11/03/24 15:00 Depression Screening Interpretation: Negative Thrive Assessment: Date of Thrive Assessment Date Thrive assessed 09/09/24 11/03/24 15:00 Currently or been in a relationship where the following occur: I choose not to answer Const Other: General: no acute distress and well developed Nutritional Appearance: well nourished Orientation/consciousness: patient oriented x3 HENMT Head is normocephalic Bilateral ear canal and TM are normal Nasal turbinates and oropharynx are pink and moist Sinuses are nontender with palpation No auricular or cervical lymphadenopathy Eyes General: appearance normal, both eyes and all related structures Pupils: Equal, round and reactive pupils present EOM: EOMs intact bilaterally Resp Effort & Inspection: normal respiratory effort Auscultation: Moderate wheezing to bilateral upper and lower lobes Cardio Rate: regular rate Rhythm: regular rhythm Heart sounds: S1 normal heart sound present, S2 normal heart sound present, no gallops, no murmurs and no rubs GI Palpation (GI): No Abdominal aortic bruit present, Soft to palpation, nontender, No hepatosplenomegaly present and No Rebound tenderness present Auscultation: normal bowel sounds General: Yes no CVA tenderness Back/Spine/Pelvis Back: no CVA tenderness Cervical Spine: cervical ROM normal and No Cervical spine tenderness Thoracic/Lumbar Spine: thoraco-lumbar ROM normal, No pain with thoraco-lumbar ROM, No thoracic spinal tenderness and No lumbar spinal tenderness Extrem General: Yes normal to inspection, No edema and No calf tenderness Skin General: warm and dry. Normal skin color. Normal skin turgor Neuro General: patient oriented x3, gait normal and no focal neuro deficit Cranial nerves: Yes Equal, round and reactive pupils present Cognition (Neuro): normal cognition Gait exam (Neuro): Normal gait present Sensory Exam: No Sensory deficit (Neuro) Psych Appearance: grossly normal Affect: normal affect Attitude: cooperative Thought process: Normal thought process present Coding Level of Care Code Est Pt Level 4 (89923) Complex EM visit Add On G2211 Diagnoses ANIBAL (generalized anxiety disorder) F41.1 MDD (major depressive disorder), recurrent severe, without psychosis F33.2 History of suicide attempt Z91.51 Viral upper respiratory illness J06.9 Wheezing R06.2 Additional Codes ANIBAL-7 Assessment Billing - ANIBAL-7 Assessment Tool: ANIBAL-7 Assessment 51566 ([id number]) PHQ-9 - 33170 - PHQ-9 Billing: Yes ([id number]) Assessment & Plan Assessment & Plan (1) ANIBAL (generalized anxiety disorder): Code(s): F41.1 - Generalized anxiety disorder Category: Medical Plan: Controlled anxiety depressive symptoms since recent hospital discharge. No SI, HI, AVH. PHQ-9 score is normal. ANIBAL-7 score reveals mild anxiety. Continue current treatment regimen. Routine exercise encouraged. She did not bring discharge documentation from [facility]; request for health record sent. She has not currently been followed by Psychiatry. Referral made to [facility] comprehensive care [facility] Follow-up in 1 month or sooner with symptoms or concerns. Verbalized understanding and agreed with treatment plan. (2) MDD (major depressive disorder), recurrent severe, without psychosis: Code(s): F33.2 - Major depressive disorder, recurrent severe without psychotic features Category: Medical Plan: Plan as above. (3) History of suicide attempt: Code(s): Z91.51 - Personal history of suicidal behavior Category: Medical Plan: Plan as above. (4) Viral upper respiratory illness: Code(s): J06.9 - Acute upper respiratory infection, unspecified Category: Medical Plan: Likely viral illness though possibly allergies. No exam evidence of bacterial infection Viral illness There is no antibiotic medication for viruses.? They must run their course.? Most average 5-7 days but 7-10 days is not uncommon and up to 14 days is still possible.? A cough is often the last symptom to resolve and this can last for weeks in some cases. Rest Hydrate well -? Drink plenty of fluids.? Especially water. Tylenol or ibuprofen for muscle aches, headache, fever/discomfort Cannot rule out COVID-19/RSV/Flu infection Nasal swab acquired and will be sent to the lab Chest x-ray ordered for reason to bilateral upper and lower lobes Resume may be related to cigarette smoking. Working cessation encouraged. May prescribed nicotine treatment for smoking cessation as needed Return for new or worsening symptoms Verbalized understanding and agreed with treatment plan (5) Wheezing: Code(s): R06.2 - Wheezing Category: Medical Plan: Plan as above. Orders: Orders SARS-CoV2/FLU/RSV Today J06.9 - Acute upper respiratory infection, unspecified XR chest 2V Today R06.2 - Wheezing Referrals Addiction Medicine Referral F33.2 - Major depressive disorder, recurrent severe without psychotic features, F41.1 - Generalized anxiety disorder, Z91.51 - Personal history of suicidal behavior
[2024-11-03 15:06] VITALS: BP 125/77; PULSE 104; RESP 16; TEMP 36.4; O2SAT 96; BMI 18.4
--- OUTSIDE RECORDS SUMMARY | 2024-11-03 18:43 | XMS_ITS | Encounter Summary ---
Author Organization [facility] Address [address] [place] [address] Care Team Providers Care Speech And Language Tutor Name Role Phone Unavailable Primary Care Provider Unavailabl e Encounter Details Date Type Department Care Team (Late st Contact Info) Description 08/03/2024 Lab Requisition [facility] - Main Lab [address] [facility] [place] [address] Shavonne Zavaleta, MAGDA [address] [place] [address] Other skilled nursing (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 Social History Tobacco Use Types Packs/Day Years Used Date Smoking Tobacco: Every Day Cigarettes Smokeless Tobacco: Never Alcohol Use Standard Drinks/Week Comments Yes 0 (1 standard drink = 0.6 oz pur e alcohol) Comments Unknown Sex and Gender Information Value Date Recorded Sex Assigned at Not on file Legal Sex Female 10:14 AM EST Gender Identity Not on file Sexual Orientation Not on file documented as of this encounter Plan of Treatment Not on file documented as of this encounter Procedures Procedure Name Priority Date/Time Associated Diagnosis Comments LIPID PANEL WITH REFLEX TO DIRECT LDL Routine 08/03/2024 7:00 AM EST Other skilled nursing (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 HEMOGLOBIN A1C Routine 08/03/2024 7:00 AM EST Other skilled nursing (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 LITHIUM LEVEL Routine 08/03/2024 7:00 AM EST 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 pilot instructor (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 documented in this encounter Results * (ABNORMAL) [place] level (08/03/2024 7:00 AM EST) [place] Level 0.5(L) 0.6 - 1.2 mEq/L LAB CHEMISTRY METHOD 08/03/2024 1:31 PM EST [facility] Blood Venous blood specimen / Unknown Venipuncture / Unknown 08/03/2024 7:00 AM EST 08/03/2024 12:08 PM EST us Shavonne Zavaleta COLLATOR HAND LAB BLOOD ORDERABLES Fi nal Result [facility] [address] [place] [address], [place] [phone] * (ABNORMAL) Lipid panel with reflex to direct LDL (08/03/2024 7:00 AM EST) Cholesterol 201(H) 0 - 200 mg/dL LAB CHEMISTRY METHOD 08/03/2024 1:[address] [facility] Triglycerides 185(H) 0 - 150 mg/dL LAB CHEMISTRY METHOD 08/03/2024 1:[address] [facility] HDL 87 >=40 mg/dL LAB CHEMISTRY METHOD 08/03/2024 1:[address] [facility] LDL Calculated 77 0 - 100 mg/dL LAB CHEMISTRY METHOD 08/03/2024 1:[address] [facility] VLDL Cholesterol Rahul 37 mg/dL LAB CHEMISTRY METHOD 08/03/2024 1:28 PM EST [facility] Non HDL Chol. (LDL+VLDL) 114 <145 mg/dL LAB CHEMISTRY METHOD 08/03/2024 1:[address] [facility] Chol/HDL Ratio 2.3 0.0 - 4.4 LAB CHEMISTRY METHOD 08/03/2024 1:[address] [facility] Blood Venous blood specimen / Unknown Venipuncture / Unknown 08/03/2024 7:00 AM EST 08/03/2024 12:08 PM EST us Shavonnecassius Zavaleta COLLATOR HAND LAB BLOOD ORDERABLES Fi nal Result Performing Organization Address City/[facility]/ZIP Co de Phone Number [facility] [address] [place] [address], [place] [phone] * Hemoglobin A1c (08/03/2024 7:00 AM EST) Hemoglobin A1C 4.7 <6.5 % LAB CHEMISTRY METHOD 08/03/2024 1:35 PM EST [facility] Mean Bld Glu Estim. 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
--- OUTSIDE RECORDS SUMMARY | 2024-11-03 18:43 | XMS_ITS | Encounter Summary ---
Author Organization [facility] Address [address] [place] [address] Care Team Providers Care Felt Carbonizer Name Role Phone Unavailable Primary Care Provider Unavailabl e Encounter Details Date Type Department Care Team (Late st Contact Info) Description 08/10/[address] [facility] - Main Lab [address] [facility] [place] [address] Shavonne Zavaleta, MAGDA [address] [place] [address] Social History Tobacco Use Types Packs/Day Years [...] as of this encounter Plan of Treatment Scheduled Orders Name Type Priority Associated Diagnoses Orde r Schedule Lipid panel with reflex to direct LDL Lab Routine Ordered: [address] [place] level Lab Routine Ordered: Hemoglobin A1c Lab Routine Ordered: 1 10/11/2023 documented as of this encounter Visit Diagnoses Not on filedocumented in this encounter
--- OUTSIDE RECORDS SUMMARY | 2024-11-03 18:43 | XMS_ITS | Continuity of Care Document ---
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 pain, shortness of breath. ? Review of Systems Constitutional:??No weight loss, fever, chills, weakness or fatigue. Allergy/Immune: Denies any??Eczema or hives Eyes:??No visual loss, blurred vision, double vision or yellow sclera ENT:??No hearing loss, sneezing, congestion, runny nose or sore throat. Respiratory:??No shortness of breath, cough or sputum production. Cardiovascular:??No chest pain, chest pressure or chest discomfort. No palpitations or pedal edema. Gastrointestinal:??Nausea.?? No vomiting or diarrhea. Chronic??abdominal pain.??No??blood in stool. Genitourinary:??No burning micturition. No urinary frequency or incontinence. Neurologic:??No headache, dizziness, syncope, unilateral weakness, ataxia, numbness or tingling in the extremities. No change in bowel or bladder control. Musculoskeletal:??No muscle pain, back pain, joint pain or stiffness. Hematologic/Lymphatics:??No bleeding or bruising. No painful lymph nodes. Skin:??No rash or itching. Endocrine:??No reports of sweating. No cold or heat intolerance. No polyuria or polydipsia. Psychiatric:??Depression, anxiety. Objective Vital Signs?? Temperature: 98.4 DegF (10/12/24 20:00:00) Temperature Route: Oral (10/12/24 20:00:00) Pulse Rate: 90 bpm (10/12/24 20:00:00) Respiratory Rate: 19 br/min (10/12/24 20:00:00) Systolic Blood Pressure: 98 mm Hg (10/12/24 20:00:00) Diastolic Blood Pressure: 62 mm Hg (10/12/24 20:00:00) Blood pressure sites: Arm, right (10/12/24 20:00:00) Mean Arterial Pressure: 83 mm Hg (10/12/24 17:50:00) Pulse Pressure: 36 mm Hg (10/12/24 20:00:00) Oxygen Saturation: 97 % (10/12/24 20:00:00) Mode of Delivery (Oxygen): Room air (10/12/24 20:00:00) Early Warning Score: 1 (10/12/24 20:47:36) ? Intake/Output? 10/12 17:00 10/12 07:00 10/11 07:00 10/10 07:00 10/09 07:00 ?? 10/12 21:44 10/12 21:44 10/12 06:59 10/11 06:59 10/10 06:59 Intake ?120 ?120 ?0 ?0 ?0 Output ?0 ?0 ?0 ?0 ?0 Net Total ?120 ?120 ?0 ?0 ?0 ? Urine Count ?1 ?1 ?0 ?0 ?0 ? Physical Exam Constitutional: Alert, frail, in no distress. Mental Status: Oriented to person, place and time. Head: Normocephalic. Eyes: Pupils are equal, round and reactive to light. Extraocular muscles intact. Ear, Nose and Throat: Oropharynx clear, mucous membranes moist. Ears and nose without masses, lesions or deformities. Trachea midline. Neck: Supple, Full range of motion. Respiratory: Clear to auscultation. No wheezing, rales or rhonchi. Cardiovascular: S1 S2 regular. No murmurs, rubs or gallops. Gastrointestinal: Abdomen soft, non-tender, non-distended. Normal bowel sounds. No pulsatile mass. Genitourinary: No costovertebral angle tenderness. Neurologic: Cranial nerves II-XII grossly intact. No focal neurological deficits. Flexor plantar response. Moves all extremities spontaneously. Sensation intact bilaterally. Skin: No rashes or lesions. No petechiae or purpura.?? Musculoskeletal: No cyanosis or clubbing. No gross deformities. Normal range of motion. Heme/Lymphatics/Immun: Palpation of neck reveals no swelling or tenderness of neck nodes.?? 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 ?? Patient was admitted at [facility] from 10/18-10/06/2024 for intentional drug overdose with suicidal intent and was discharged home after being cleared from psychiatry. [facility] unknown amount of meclizine, trazodone, hydroxyzine and clonidine1 hour prior to arrival on 10/11/2024 with suicidal intention. Patient was admitted with working diagnosis of intentional drug overdose. Patient was hemodynamically stable. Lab data showed H&H 9.7/28.8, normal chemistries, positive barbiturates in urine drug screen. acetaminophen, salicylate andlithium levels where undetectable. Influenza/RSV/COVID-19 test was negative. QTc was elevated. Jayla nt was monitored on telemetry. Serial EKGs have been performed. Psychiatry was??consulted.??Patientis being transferred to [facility] for further management ?? Patient will need inpatient psychiatric stabilization after patient is medically cleared for discharge.?Continue to monitor the patient on telemetry for 24 hours with serial EKG monitoring to trend QTc's. Once medically cleared for discharge, crisis to be consulted for discharge planning. ?? Upon arrival, patient is afebrile and vitally stable.??EKG??reads as??AV dual- paced rhythm with prolonged AV conduction,?QTc??469; compared with ECG of 12-Oct-2024 13:12, electronic ventricular pacemaker has replaced Sinus rhythm.??Patient complains of nausea and chronic??abdominal pain.??She denies chest pain, shortness of breath. ? Ingestion of toxic substance (T65.91XA):?? Suicide attempt (T14.91XA):?? Prolonged QT interval (R94.31):?? Anxiety depression (F41.9):? 39 y/o female with history??of Jennifer-Danlos syndrome, osteogenesis imperfecta, anorexia nervosa, severe malnutrition, anxiety/depression, prior history of suicide attempt, delayed bladder emptying currently on neurostimulator, history of myofascial pain who presented to [facility] emergency room after an intentional overdose with suicidal ideation. Patient was admitted at [facility] from 10/18-10/06/2024 for intentional drug overdose with suicidal intent and was discharged home afterbeing cleared from psychiatry. Patient returned to [facility] ER on 10/11 for ingestion of unknown amountof meclizine, trazodone, hydroxyzine and clonidine 1 hour prior to arrival on 10/11/2024 with suicidal intention.Patient was hemodynamically stable. Lab data showed H&H 9.7/28.8, normal chemistries, positive barbiturates in urine drug screen. acetaminophen, salicylate and lithium levels where undetectable. Influenza/RSV/COVID-19 test was negative?? QTc was elevated. Patient was monitored on telemetry. Serial EKGs have been performed. Psychiatry was??consulted.??Patient is being transferred to [facility] for further management.??Patient is afebrilei and vitally stable upon arrival. EKG??reads as??AV dual-paced rhythm with prolonged AV conduction,?QTc??469; compared with ECGof 12-Oct-2024 13:12, electronic ventricular pacemaker has replaced Sin -Holding all home medications for now?? -Telemetry-EKG q4H until qtc??stabilizes.?? EKG reads as AV paced, but no known history of PPM, so likely spikes are from her blader neurostimulator -Most recent K > 4 and Mg >2 at goal. Lytes in??AM and replete as needed?? -Avoid QTc prolonging medications. - consulted?? -Suicide precautions -Constant shaft sinker?? -Patient cannot leave AMA?? -Can continue trazodone. -Patient will need inpatient psychiatric stabilization after patient is medically cleared for discharge.?Once medically cleared for discharge, crisis to be consulted for discharge planning.? Asthma (J45.909):?? -Albuterol prn. ?? Underweight (R63.6):?? Malnutrition (E46):?? H/O: anorexia nervosa (Z86.59):?? -Consult nutrition services. ?? Nausea (R11.0):?? -Ativan prn due to QTc prolongation.? Urinary retention (R33.9):?? -S/p bladder neurostimulator. -Continue tamsulosin. ?? Diet:?? regular. ?? Discharge Planning: -Consult crisis for discharge planning, once medically cleared. ?? Code Status:?Order Code Status:??Code Status Ordered ? Histories Allergies Allergies ?(Active and Proposed Allergies Only) Levaquin? (Severity: Unknown severity, Onset: Unknown) Zithromax? (Severity: Unknown severity, Onset: Unknown) ?Reactions: facial swelling and itching Macrodantin? (Severity: Unknown severity, Onset: Unknown) ?Reactions: itching and tired ? 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 Past Surgical History Excision of posterior vaginal mesh, posterior repair: 07/11/13 Excision of exposed vaginal mesh, cystourethroscopy.: 10/24/11 Transobturator midurethral sling procedure with [place] technique, ??Cystourethroscopy, posterior repair with mesh augmentation, bilateral sacrospinous ligament fixation with mesh, enterocele repair.:01/27/11 ? Social History Alcohol Details:??Use: Never. Employment/School Details:??Status: Disabled. Home/Environment Details:??Living situation: Home/Independent. ??Lives with: MOM AND OLDER BROTHER. Nutrition/Health Details:??Diet: Regular. Substance Abuse Details:??Use: Never. Tobacco Details:??Use: Former smoker, quit more than 30 days ago. ??Other: QUIT 1 YEAR AGO. Electronic Cigarette/Vaping Details:??Electronic Cigarette Use: 51+ inhales/day. ??Type: Nicotine infused. ? Psychosocial History ? Family History Mother: Degenerative disc disease; Osteogenesis imperfecta; Osteoporosis Father: CAD - Coronary artery disease ([place] at 48 yo) Brother: Osteogenesis imperfecta; Osteoporosis Mat. Grandfather??(): Cancer of lung; Osteoporosis Mat. Grandmother??(): Cancer of lung ? Medications Home Medications Acetaminophen-Butalbital (acetaminophen-butalbital 325 mg-50 mg oral tablet)??1 tab(s) By Mouth Daily as needed as needed Albuterol (Albuterol (Eqv-ProAir HFA))??2 puff(s) Inhalation Every 6 hours as needed Wheezing/Shortness of Breath Ascorbic Acid (Vitamin C 1000 mg oral tablet)??1 tab(s) 1,000 Milligram By Mouth Daily Bethanechol (bethanechol 25 mg oral tablet)??25 Milligram 1 tablet By Mouth 3 times a day for 10 Days Buprenorphine (Belbuca 75 mcg buccal film)??1 Film 75 Microgram Sublingual Every 12 hours BuPROpion (buPROPion 300 mg/24 hours (XL) oral tablet, extended release)??1 tab(s) 300 Milligram ByMouth Daily cariprazine (Vraylar 6 mg oral capsule)??1 capsule 6 Milligram By Mouth Daily Clonazepam (clonazePAM 0.5 mg oral tablet)??1 tab(s) 0.5 Milligram By Mouth 2 times a day Clonidine (cloNIDine 0.1 mg oral tablet)??0.1 Milligram 1 tablet By Mouth 4 times a day as needed Anxiety HydrOXYzine (hydrOXYzine pamoate 25 mg oral capsule)??1 capsule 25 Milligram By Mouth 4 times a dayas needed for anxiety for 15 Days [place] (lithium 300 mg oral tablet, extended release)??2 tab(s) 600 Milligram By Mouth Daily at bedtime Meclizine (meclizine 25 mg oral tablet)??1 tab(s) 25 Milligram By Mouth Daily as needed as needed for motion sickness Nicotine (Nicotine 7 mg/24 hour patch)??1 patch(es) Topically Daily for 14 Days Quetiapine (QUEtiapine 150 mg oral tablet, extended release)??150 Milligram 1 tablet By Mouth Dailyat bedtime Tamsulosin (tamsulosin 0.4 mg oral capsule)??0.4 Milligram 1 capsule By Mouth Daily at bedtime Trazodone (traZODone 50 mg oral tablet)??25 Milligram 0.5 tablet By Mouth Daily at bedtime for 30 Days ? Inpatient Medications Medications (15) Active SCHEDULED: (4) Ascorbic Acid 250 mg Tablet (Vitamin C 250 mg oral tablet) ??1,000 mg, By Mouth, Daily NaCl 0.9% Flush 3ml (NaCL 0.9% Flush) ??3 mL, IV Push, Every 8 hours Tamsulosin 0.4 mg Capsule (tamsulosin 0.4 mg oral capsule) ??0.4 mg, By Mouth, Daily at bedtime Trazodone 50 mg Tablet (traZODone 50 mg oral tablet) ??25 mg, By Mouth, Daily at bedtime CONTINUOUS: (0) PRN: (11) Acetaminophen 325 mg Tablet (Acetaminophen Tablet) ??650 mg, By Mouth, Every 4 hours Albuterol 90mcg/Inhalation Inhaler HFA (Ventolin 90 mcg Inhaler) ??180 mcg 2 puffs, Inhalation, Every 6 hours Dextromethorphan-Guaifenesin 20 mg-200 mg/10 mL Liqu UD (Robitussin DM Liquid) ??10 mL, By Mouth, Every 4 hours Docusate Sodium 100 mg Capsule (Docusate Sodium Capsule) ??100 mg 1 capsule, By Mouth, 2 times a day HydrOXYzine Pamoate 25mg Capsule (hydrOXYzine pamoate 25 mg oral capsule) ??25 mg, By Mouth, 4 times a day Lorazepam 2 mg Inj Syringe (Ativan Inj) ??1 mg, IV Push Slowly, Once Melatonin 3 mg Tablet (Melatonin Tablet) ??3 mg, By Mouth, Daily at bedtime NaCl 0.9% Flush 3ml (NaCL 0.9% Flush) ??3 mL, IV Push, Every 8 hours Polyethylene Glycol 17 Gm Powder (MiraLax Powder) ??17 Gm 1 pack/packet, By Mouth, Daily Senna Tablet ??8.6 mg 1 tablet, By Mouth, 2 times a day Simethicone 80 mg Chewable Tablet (Simethicone Tablet) ??80 mg, Chew, 3 times a day ? Results Recent Labs BLOOD COUNT & DIFF WBC 5.1 k/mm3 ()?? 10/11/2024 18:30 RBC 3.01 m/mm3 (Low)?? 10/11/2024 18:30 Hgb 9.7 Gm/dL (Low)?? 10/11/2024 18:30 Hct 28.8 % (Low)?? 10/11/2024 18:30 MCV 95.7 femtoliters ()?? 10/11/2024 18:30 MCH 32.2 pg ()?? 10/11/2024 18:30 MCHC 33.7 Gm/dL ()?? 10/11/2024 18:30 Platelet Count 211 k/mm3 ()?? 10/11/2024 18:30 RDW-SD 44.5 femtoliters ()?? 10/11/2024 18:30 MPV 10.3 femtoliters ()?? 10/11/2024 18:30 Nucleated RBC (Automated) 0.0 #/100 WBC'S ()?? 10/11/2024 18:30 Abs. NRBC 0.0 k/mm3 ()?? 10/11/2024 18:30 Abs. Neut 2.7 k/mm3 ()?? 10/11/2024 18:30 Abs. Lymph 1.8 k/mm3 ()?? 10/11/2024 18:30 Abs. [place] 0.5 k/mm3 ()?? 10/11/2024 18:30 Abs. Eo 0.1 k/mm3 ()?? 10/11/2024 18:30 Abs. Baso 0.0 k/mm3 ()?? 10/11/2024 18:30 Neut % 53.4 % ()?? 10/11/2024 18:30 Lymph % 35.2 % ()?? 10/11/2024 18:30 [place] % 9.2 % ()?? 10/11/2024 18:30 Eos % 1.4 % ()?? 10/11/2024 18:30 Baso % 0.6 % ()?? 10/11/2024 18:30 Imm Gran 0.2 % ()?? 10/11/2024 18:30 Abs. Imm Gran 0.0 k/mm3 ()?? 10/11/2024 18:30 ?? CHEM GENERAL Sodium 142 mmol/L ()?? 10/12/2024 07:05 Potassium 4.5 mmol/L ()?? 10/12/2024 07:05 Chloride 110 mmol/L (High)?? 10/12/2024 07:05 Bicarbonate Level 24 mmol/L ()?? 10/12/2024 07:05 Anion Gap 8 mmol/L ()?? 10/12/2024 07:05 Glucose Level 88 mg/dL ()?? 10/12/2024 07:05 BUN 10 mg/dL ()?? 10/12/2024 07:05 Creatinine-Blood 0.61 mg/dL ()?? 10/12/2024 07:05 Estimated GFR Creatinine 117 ML/MIN/1.73 M2 ()?? 10/12/2024 07:05 Calcium 8.6 mg/dL ()?? 10/12/2024 07:05 Magnesium 2.2 mg/dL ()?? 10/12/2024 07:05 Protein, Total 4.9 Gm/dL (Low)?? 10/11/2024 18:30 Albumin 3.2 Gm/dL (Low)?? 10/11/2024 18:30 AG Ratio 1.9 ()?? 10/11/2024 18:30 Alkaline Phosphatase 51 units/L ()?? 10/11/2024 18:30 Lipase, Serum/Plasma 29 units/L ()?? 10/11/2024 18:30 AST (SGOT) 18 units/L ()?? 10/11/2024 18:30 ALT (SGPT) 13 units/L ()?? 10/11/2024 18:30 Bilirubin, Total <0.2 mg/dL ()?? 10/11/2024 18:30 ?? ENDOCRINE/TUMOR MARKER TSH 1.81 uIU/mL ()?? 10/11/2024 18:30 Beta HCG-serum, Qual NEGATIVE ()?? 10/11/2024 18:30 ?? HEME OTHER Hold Lavender Top SPECIMEN DISCARDED AFTER 24 HOURS. ()?? 10/12/2024 07:05 Hold Blue Top SPECIMEN DISCARDED AFTER 4 HOURS. ()?? 10/11/2024 18:30 ?? MISC. CHEMISTRY Hold Dent Top SPECIMEN DISCARDED AFTER 1 WEEK ()?? 10/11/2024 18:30 ?? TOXICOLOGY/TDM Ethanol, Serum or Plasma NONE DETECTED mg/dL ()?? 10/11/2024 18:30 [place] Level <0.1 mmol/L (Low)?? 10/11/2024 18:30 Salicylate Level <0.3 mg/dL (Low)?? 10/11/2024 18:30 Barbiturate Screen, Urine POSITIVE (Abnormal)?? 10/11/2024 19:24 Cannabinoid Screen, Urine NONE DETECTED ()?? 10/11/2024 19:24 Cocaine Metabolite Screen, Urine NONE DETECTED ()?? 10/11/2024 19:24 Benzodiazepine Screen, Urine NONE DETECTED ()?? 10/11/2024 19:24 Amphetamine Screen, Urine NONE DETECTED ()?? 10/11/2024 19:24 Opiate Screen, Urine NONE DETECTED ()?? 10/11/2024 19:24 Acetaminophen Level <5 mg/L (Low)?? 10/11/2024 18:30 ?? URINE OTHER Est Creatinine Clearance 71.35 mL/min ()?? 10/12/2024 07:56 ? EKG study * Event Display: ECG 12-Lead Authored Date: Please click on pdf link to open report * Event Display: ECG 12-Lead Authored Date: Ventricular Rate: 84 BPM Atrial Rate: 84 BPM P-R Interval: 116 ms QRS Duration: 88 ms Q-T Interval: 404 ms QTC Calculation(Bazett): 477 ms P [place]: 58 degrees R [place]: 40 degrees T [place]: 35 degrees Poor data quality, interpretation may be adversely affected Undetermined regular rhythm When compared with ECG of 15-Oct-2024 14:20, Poor data quality in current ECG precludes serial comparison Confirmed by BHANU GOMEZ MD ([id number]) on 10/18/2024 3:57:07 PM [place]: BHANU GOMEZ MD * Event Display: ECG 12-Lead Authored Date: Please click on pdf link to open report * Event Display: ECG 12-Lead Authored Date: Ventricular Rate: 70 BPM Atrial Rate: 70 BPM P-R Interval: 124 ms QRS Duration: 84 ms Q-T Interval: 426 ms QTC Calculation(Bazett): 460 ms P [place]: 53 degrees R [place]: 34 degrees T [place]: 39 degrees Poor data quality, interpretation may be adversely affected Normal sinus rhythm Normal ECG When compared with ECG of 12-Oct-2024 22:52, Vent. rate has decreased by 3 bpm Confirmed by BHANU GOMEZ MD ([id number]) on 10/13/2024 7:12:42 PM [place]: BHANU GOMEZ MD * Event Display: ECG 12-Lead Authored Date: Please click on pdf link to open report * Event Display: ECG 12-Lead Authored Date: Ventricular Rate: 73 BPM Atrial Rate: 73 BPM P-R Interval: 126 ms QRS Duration: 88 ms Q-T Interval: 432 ms QTC Calculation(Bazett): 475 ms P [place]: 48 degrees R [place]: 35 degrees T [place]: 42 degrees Poor data quality, interpretation may be adversely affected Probable NSR Otherwise normal ECG Confirmed by ROE ESPARZA MD ([id number]) on 10/13/2024 9:56:44 PM [place]: ROE ESPARZA MD Hospital Progress note * Siomara Walton RN: PERFORM, SIGN, VERIFY Event Display: Progress Note Hospital Authored Date: [id number] Patient: CHERYL GONZALES [facility]: [id number] Age: 39 years Sex: Female : 1985 Associated Diagnoses: None Author: Siomara Walton RN Findings Problem Related to Alteration in Psychosocial : Alteration in Psychosocial Function/new 10/18/2024 11:00 EST Alteration in Psychosocial Related to Suicidal Goals & Outcomes, Psychosocial Psychosocial support will be provided to Pt/S.O. as needed, Pt will state importance of adhering to medication regime, Pt/caregiver will be offered appropriate resources & support, Pt/caregiver will express feelings/needs/fears /concerns, Pt will be monitored for suicidal ideation, Pt will manage stressors w/out self injury, Patient will complete Saftery Plan Prior to discharge Interventions, Psychosocial Assess psychosocial needs, Assess readiness to learn needed lifestyle changes, Assess/monitor level of consciousness, Collaborate with provider for psychiatric consult Goals/Interventions, Psychosocial Yes Psychosocial, Problem Start 10/12/2024 18:02 Reviewed Plan with, Psychosocial Patient Patient Progression, Psychosocial Pt progressing according to plan . Alteration in Safety : Alteration in Safety/new 10/18/2024 11:00 EST Alteration in Safety Related to Suicidal ideation Goals & Outcomes, Safety Psychosocial support will be provided to Pt/S.O. as needed, Pt/caregiver will state understanding of plan/goals of care, Pt will remain safe & injury free, Pt/caregiver will be offered appropriate resources & support Interventions, Safety Provide info on community resources for education, support, Provide teaching as needed Goals/Interventions, Safety Yes Safety, Problem Start 10/16/2024 19:00 Reviewed plan with, Safety Patient Patient Progression, Safety Pt progressing according to plan . Nursing Data Gastrointestinal Data. : Gastrointestinal Data. 10/18/2024 11:29 EST Abdomen Soft, Non-tender Bowel Sounds LUQ Present Bowel Sounds RUQ Present Bowel Sounds LLQ Present Bowel Sounds RLQ Present Last Bowel Movement 10/17/2024 GI WNL except . Vital Signs : VITAL SIGNS SECTION 10/18/2024 8:03 EST Temperature Route Oral Pulse Rate 79 bpm Respiratory Rate 20 br/min Systolic Blood Pressure 106 mm Hg Diastolic Blood Pressure 80 mm Hg Mean Arterial Pressure 89 mm Hg Pulse Pressure 26 mm Hg Oxygen Saturation 96 % Mode of Delivery (Oxygen) Room air . Narrative/Incidental Alert/oriented X4, ambulating around unit with stand by assist, gait steady, denies any pain, remains on 1:1 precautions for SI, although denies any intent to harm self.. * Joana Beyer RN: PERFORM, SIGN, VERIFY Event Display: Progress Note Hospital Authored Date: [id number] Patient: CHERYL GONZALES Age: 39 years Sex: Female : 1985 Associated Diagnoses: None Author: Joana Beyer RN Findings Problem Related to Alteration in Psychosocial : Alteration in Psychosocial Function/new 10/18/2024 6:00 EST Alteration in Psychosocial Related to Suicidal Goals & Outcomes, Psychosocial Psychosocial support will be provided to Pt/S.O. as needed, Pt will state importance of adhering to medication regime, Pt/caregiver will be offered appropriate resources & support, Pt/caregiver will express feelings/needs/fears /concerns, Pt will be monitored for suicidal ideation, Pt will manage stressors w/out self injury, Patient will complete Saftery Plan Prior to discharge Interventions, Psychosocial Assess psychosocial needs, Assess/monitor level of consciousness, Collaborate with provider for psychiatric consult, Offer support; discuss coping strategies, Provide a calm, supportive environment, Provide chances to express concerns/emotions/expectations, Assess for anxiety Goals/Interventions, Psychosocial Yes Psychosocial, Problem Start 10/12/2024 18:02 Reviewed Plan with, Psychosocial Patient Patient Progression, Psychosocial Pt progressing according to plan . Alteration in Safety : Alteration in Safety/new 10/18/2024 6:00 EST Alteration in Safety Related to Suicidal ideation Goals & Outcomes, Safety Psychosocial support will be provided to Pt/S.O. as needed, Pt/caregiver will state understanding of plan/goals of care, Pt will remain safe & injury free, Pt/caregiver will be offered appropriate resources & support Interventions, Safety Provide teaching as needed Goals/Interventions, Safety Yes Safety, Problem Start 10/16/2024 19:00 Reviewed plan with, Safety Patient Patient Progression, Safety Pt progressing according to plan . Nursing Data Vital Signs : VITAL SIGNS SECTION 10/18/2024 5:00 EST Temperature 97.6 DegF Temperature Route Oral Pulse Rate 82 bpm Respiratory Rate 17 br/min Systolic Blood Pressure 98 mm Hg Diastolic Blood Pressure 78 mm Hg Blood pressure sites Arm, left Oxygen Saturation 95 % Mode of Delivery (Oxygen) Room air 10/17/2024 19:44 EST Early Warning Score 1.00 10/17/2024 19:00 EST Temperature 98.1 DegF Temperature Route Oral Pulse Rate 84 bpm Respiratory Rate 18 br/min Systolic Blood Pressure 98 mm Hg Diastolic Blood Pressure 80 mm Hg Blood pressure sites Arm, left Oxygen Saturation 96 % Mode of Delivery (Oxygen) Room air . Evaluation Pt. A&Ox4; resting in bed. States I feel good tonight though PRN hydroxyzine utilized for anxiety. Pt. eating ice cream, no c/o nausea. Voiding to toilet. 1:1 at bedside for safety. Bed in low,locked position & able to make needs known. Awaiting psych placement. . * Siomara Walton RN: PERFORM, SIGN, VERIFY Event Display: Progress Note Hospital Authored Date: [id number] Patient: CHERYL GONZALES Age: 39 years Sex: Female : 1985 Associated Diagnoses: None Author: Siomara Walton RN Findings Problem Related to Alteration in Psychosocial : Alteration in Psychosocial Function/new 10/17/2024 13:00 EST Alteration in Psychosocial Related to Suicidal Goals & Outcomes, Psychosocial Psychosocial support will be provided to Pt/S.O. as needed, Pt will state importance of adhering to medication regime, Pt/caregiver will be offered appropriate resources & support, Pt/caregiver will express feelings/needs/fears /concerns, Pt will be monitored for suicidal ideation, Pt will manage stressors w/out self injury, Patient will complete Saftery Plan Prior to discharge Interventions, Psychosocial Assess psychosocial needs, Assess readiness to learn needed lifestyle changes, Assess/monitor level of consciousness, Collaborate with provider for psychiatric consult, Offer support; discuss coping strategies BH Goals/Interventions, Psychosocial Yes Psychosocial, Problem Start 10/12/2024 18:02 Reviewed Plan with, Psychosocial Patient Patient Progression, Psychosocial Pt progressing according to plan . Alteration in Safety : Alteration in Safety/new 10/17/2024 13:00 EST Alteration in Safety Related to Suicidal ideation Goals & Outcomes, Safety Psychosocial support will be provided to Pt/S.O. as needed, Pt/caregiver will state understanding of plan/goals of care, Pt will remain safe & injury free, Pt/caregiver will be offered appropriate resources & support Interventions, Safety Provide info on community resources for education, support, Provide teaching as needed Goals/Interventions, Safety Yes Safety, Problem Start 10/16/2024 19:00 Reviewed plan with, Safety Patient Patient Progression, Safety Pt progressing according to plan . Nursing Data Gastrointestinal Data. : Gastrointestinal Data. 10/17/2024 10:01 EST Abdomen Soft, Non-tender Bowel Sounds LUQ Present Bowel Sounds RUQ Present Bowel Sounds LLQ Present Bowel Sounds RLQ Present Last Bowel Movement 10/16/2024 GI WNL except . Vital Signs : VITAL SIGNS SECTION 10/17/2024 8:11 EST Early Warning Score 1.00 10/17/2024 8:11 EST Temperature 99.3 DegF Temperature Route Oral Pulse Rate 82 bpm Respiratory Rate 18 br/min Systolic Blood Pressure 96 mm Hg Diastolic Blood Pressure 70 mm Hg Blood pressure sites Arm, left Mean Arterial Pressure 79 mm Hg Pulse Pressure 26 mm Hg Oxygen Saturation 97 % Mode of Delivery (Oxygen) Room air . Narrative/Incidental Alert/orientedX4, remains 1:1 precautions, denies any suicidal ideations at this time. Skin intact,stand by ambulation.. Note * Brenda Gibbons RN: PERFORM Event Display: Discharge/Transfer Note Hospital Authored Date: [id number] Nursing Discharge Note Entered On: 10/18/2024 15:32 EST Performed On: 10/18/2024 15:32 EST by Brenda Gibbons RN Nursing Discharge Note 2 Discharge Time : 10/18/2024 15:32 EST Discharge Level of Care at Discharge : Psychiatric Facility/Unit Patient Left Unit Via : Ambulance Patient Accompanied Off Unit with : Ambulance/Chair Van Personnel Handover Given to Transport Personnel : Yes DC Instructions Provided & Signed by Pt : No Patient Understands D/C Instructions : No Patient Instructions Discharge Signed : No Did Pt have Specialty Bed or Wound Vac : No Brenda Gibbons RN - 10/18/2024 15:32 EST * Jimmie Mathias DO: PERFORM, MODIFY, MODIFY, MODIFY Event Display: Discharge/Transfer Note Hospital Authored Date: [id number] Patient: ??MARIA A, CHERYL ? Age:??39 Years?Sex:??Female?:??1985?? 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) Underweight (R63.6) Suicide attempt (T14.91XA) Malnutrition (E46) Prolonged QT interval (R94.31) H/O: anorexia nervosa (Z86.59) Nausea (R11.0) Urinary retention (R33.9) _ Discharge Medications Acetaminophen-Butalbital (acetaminophen-butalbital 325 mg-50 mg oral tablet)??1 tab(s) By Mouth Daily as needed as needed Albuterol (Albuterol (Eqv-ProAir HFA))??2 puff(s) Inhalation Every 6 hours as needed Wheezing/Shortness of Breath Ascorbic Acid (Vitamin C 1000 mg oral tablet)??1 tab(s) 1,000 Milligram By Mouth Daily Bethanechol (bethanechol 25 mg oral tablet)??25 Milligram 1 tablet By Mouth 3 times a day for 10 Days Cholecalciferol (Vitamin D3 1000 intl units oral tablet)??By Mouth Daily HydrOXYzine (hydrOXYzine pamoate 25 mg oral capsule)??1 capsule 25 Milligram By Mouth 4 times a dayas needed Anxiety lurasidone (lurasidone 40 mg oral tablet)??40 Milligram By Mouth Daily at supper Meclizine (meclizine 25 mg oral tablet)??1 tab(s) 25 Milligram By Mouth Daily as needed as needed for motion sickness Tamsulosin (tamsulosin 0.4 mg oral capsule)??0.4 Milligram 1 capsule By Mouth Daily at bedtime Trazodone (traZODone 50 mg oral tablet)??25 Milligram 0.5 tablet By Mouth Daily at bedtime for 30 Days ? Durable Medical Equipment Ambulatory devices needed: None (10/18/24) ? Medications Started Lurasidone, Vitamin D Medications Discontinued Vraylar, Clonazepam, CLonidine, Hydroxyzine, [place] and bupriopion Doses Changed None Allergies Allergies ?(Active and Proposed Allergies Only) Levaquin? (Severity: Unknown severity, Onset: Unknown) Zithromax? (Severity: Unknown severity, Onset: Unknown) ?Reactions: facial swelling and itching Macrodantin? (Severity: Unknown severity, Onset: Unknown) ?Reactions: itching and tired Future Appointments December. 2024 2:00 PM EDT ?? With: Luciano Rojas Where: [facility] [address] [address]- Status: Pending Hospital Course History of Present Illness (copied from medical record) The patient is a 39 y/o female with history of Jennifer-Danlos syndrome, osteogenesis imperfecta, anorexia nervosa, severe malnutrition, anxiety/depression, prior history of suicide attempt, delayed bladder emptying currently on neurostimulator, history of myofascial pain who presented to [facility] emergency room after an intentional overdose with suicidal ideation. ? Patient was admitted at [facility] from 10/18-10/06/2024 for intentional drug overdose with suicidal intent and was discharged home after being cleared from psychiatry. Patient returns [facility] ER on 10/11 for ingestion of unknown amount of meclizine, trazodone, hydroxyzine and clonidine1 hour prior to arrival on 10/11/2024 with suicidal intention. Patient was admitted with working diagnosis of intentional drug overdose. Patient was hemodynamically stable. Lab data showed H&H 9.7/28.8, normal chemistries, positive barbiturates in urine drug screen. acetaminophen, salicylate andlithium levels where undetectable. Influenza/RSV/COVID-19 test was negative. QTc was elevated. Patie nt was monitored on telemetry. Serial EKGs have been performed. Psychiatry was consulted. Patient is being transferred to [facility] for further management Patient will need inpatient psychiatric stabilization after patient is medically cleared for discharge. Continue to monitor the patient on telemetry for 24 hours with serial EKG monitoring to trend QTc's. Once medically cleared fordischarge, crisis to be consulted for discharge planning. ?? Upon arrival, patient is afebrile and vitally stable. EKG reads as AV dual-paced rhythm with prolonged AV conduction, QTc 469; compared with ECG of 12-Oct-2024 13:12, electronic ventricular pacemakerhas replaced Sinus rhythm. Patient complains of nausea and chronic abdominal pain. She denies chestpain, shortness of breath. ?? Objective Assessment and Plan Ingestion of toxic substance ??(T65.91XA) Severe malnutrition ??(E43) Vitamin D deficiency ??(E55.9) 1. ??Anxiety depression ??(F41.9) 2. ??Asthma ??(J45.909) 3. ??Jennifer-Danlos syndrome ??(Q79.60) 4. ??Underweight ??(R63.6) 5. ??Suicide attempt ??(T14.91XA) 6. ??Malnutrition ??(E46) 7. ??Prolonged QT interval ??(R94.31) 8. ??H/O: anorexia nervosa ??(Z86.59) 9. ??Nausea ??(R11.0) 10. ??Urinary retention ??(R33.9) ?? Ingestion of toxic substance (T65.91XA):?? Suicide attempt (T14.91XA):?? Prolonged QT interval (R94.31):?? Anxiety depression (F41.9):? The patient presented to [facility] after an intentional overdose with suicidal ideation and [facility].??She ingested an unknown amount of meclizine, trazodone, hydroxyzine and clonidine. Of note she hasn't taking buprenorphine since early August since nobody would refil this presciption. She was evaluated by Adonis Ye, who deemed the patient to be a danger to herself by virtue of impaired judgement secondary to underlying psychiatric illness, meeting criteria for hospitalization/Section 12. Prolonged qtc was likely in the setting of her psychiatric medications and overdose. Her last EKG showed a qtc of 477 on 10/17. She has been started on Lurasidone 40mg daily by psychiatry at [facility] and continued on Trazadone and??hydroxyzine for anxiety.??Of note Vraylar, Clonazepam, Clonidine, lithium, and??bupropion were stopped. Section 12 has been signed. ?? Asthma (J45.909):?? Continue Albuterol prn. ?? Severe malnutrition ??(E43) H/O anorexia nervosa (Z86.59):?? Patient has severe malnutrition related to chronic anorexia nervosa as evidenced by BMI <20 age <70, <=50% of estimated needs for > 1 week.??She has a BMI of 17.4. She was seen by nutrition, and she will have a Mighty Shake with lunch.?? [facility] ?? Vitamin D deficiency ??(E55.9): Patient with Vitamin D level of 12 in August, which she did not take any supplements. She has been started on Vitamin D3 1000IU daily. This can be followed as an outpatient.? Urinary retention (R33.9):?? Patient has chronic urinary retention s/p bladder neurostimulator. Patient to continue Tamsulosin. ?? Code Status:??FULL? Vital Signs?? Temperature: 97.6 DegF (10/18/24 05:00:00) Temperature Route: Oral (10/18/24 08:03:00) Pulse Rate: 79 bpm (10/18/24 08:03:00) Respiratory Rate: 20 br/min (10/18/24 08:03:00) Systolic Blood Pressure: 106 mm Hg (10/18/24 08:03:00) Diastolic Blood Pressure: 80 mm Hg (10/18/24 08:03:00) Blood pressure sites: Arm, left (10/18/24 05:00:00) Mean Arterial Pressure: 89 mm Hg (10/18/24 08:03:00) Pulse Pressure: 26 mm Hg (10/18/24 08:03:00) Oxygen Saturation: 96 % (10/18/24 08:03:00) Mode of Delivery (Oxygen): Room air (10/18/24 08:03:00) Early Warning Score: 2 (10/18/24 08:07:28) ? . Physical Exam Constitutional: Alert, in no acute distress Head: Normocephalic, atraumatic Eyes: EOMI, no pallor or scleral icterus Ear, Nose and Throat: mucous membranes moist.?? Respiratory: Clear to auscultation b/l without wheezes, rales or rhonchi. Cardiovascular: Regular rate and rhythm, no rubs, murmurs or gallops.?? Gastrointestinal: Abdomen soft, non-tender, non-distended. Normal bowel sounds.?? Genitourinary: No suprapubic tenderness Extremities: No lower extremity pitting edema. Neurologic: AAOx3, Cranial nerves II-XII grossly intact. Moves all 4 extremities spontaneously. Sensation intact bilaterally.?? Consultants Adonis Ye (psychiatry) Follow-Up Appointments Added Follow Up ?Time Frame ?Comments Jeannette MAN, Debi Patient Instructions [facility]. Further instructions will follow when you are cleared by psychiatry.?? I have started you on 40mg of Lurasidone, as instructed by psychiatry at [facility].?? Adonis has stopped Vraylar, Clonazepam, Clonidine,??lithium, and??bupropion. Psychiatry may restart some of these medications.?? I have also started you on Vitamin D as you have vitamin D deficiency.?? Return to the ED for any concerning symptoms or thoughts of self harm?? Results Discharge Labs BLOOD COUNT & DIFF WBC 5.4 k/mm3 ()?? 10/14/2024 04:43 RBC 3.67 m/mm3 (Low)?? 10/14/2024 04:43 Hgb 11.8 Gm/dL ()?? 10/14/2024 04:43 Hct 35.7 % ()?? 10/14/2024 04:43 MCV 97.3 femtoliters ()?? 10/14/2024 04:43 MCH 32.2 pg ()?? 10/14/2024 04:43 MCHC 33.1 Gm/dL ()?? 10/14/2024 04:43 Platelet Count 239 k/mm3 ()?? 10/14/2024 04:43 RDW-SD 46.0 femtoliters ()?? 10/14/2024 04:43 MPV 10.4 femtoliters ()?? 10/14/2024 04:43 Nucleated RBC (Automated) 0.0 #/100 WBC'S ()?? 10/14/2024 04:43 Abs. NRBC 0.0 k/mm3 ()?? 10/14/2024 04:43 ?? CHEM GENERAL Sodium 138 mmol/L ()?? 10/15/2024 04:33 Potassium 4.4 mmol/L ()?? 10/15/2024 04:33 Chloride 108 mmol/L (High)?? 10/15/2024 04:33 Bicarbonate Level 20 mmol/L (Low)?? 10/15/2024 04:33 Anion Gap 10 mmol/L ()?? 10/15/2024 04:33 Glucose Level 90 mg/dL ()?? 10/15/2024 04:33 BUN 12 mg/dL ()?? 10/15/2024 04:33 Creatinine-Blood 0.62 mg/dL ()?? 10/15/2024 04:33 Estimated GFR Creatinine 116 ML/MIN/1.73 M2 ()?? 10/15/2024 04:33 Calcium 9.0 mg/dL ()?? 10/15/2024 04:33 Phosphorus 3.7 mg/dL ()?? 10/13/2024 06:09 Magnesium 2.1 mg/dL ()?? 10/15/2024 04:33 Vitamin B12 Level 505 pg/mL ()?? 10/14/2024 04:43 ? HEME OTHER Hold Lavender Top SPECIMEN DISCARDED AFTER 24 HOURS. ()?? 10/15/2024 04:33 ? UA/URINALYSIS Appear/Color, Urine COLORLESS ()?? 10/13/2024 18:44 Clarity CLEAR ()?? 10/13/2024 18:44 Specific Coleman, Urine 1.010 ()?? 10/13/2024 18:44 pH, Urine 7.5 ()?? 10/13/2024 18:44 Albumin, Urine NEGATIVE ()?? 10/13/2024 18:44 Glucose, Urine NEGATIVE ()?? 10/13/2024 18:44 Ketones, Urine NEGATIVE ()?? 10/13/2024 18:44 Bilirubin, Urine NEGATIVE ()?? 10/13/2024 18:44 Hemoglobin, Urine NEGATIVE ()?? 10/13/2024 18:44 Nitrite, Urine NEGATIVE ()?? 10/13/2024 18:44 Leukocyte, Urine 1+ (Abnormal)?? 10/13/2024 18:44 Urobilinogen NORMAL mg/dL ()?? 10/13/2024 18:44 WBC's, Urine 5 /HPF ()?? 10/13/2024 18:44 RBC's, Urine 1 /HPF ()?? 10/13/2024 18:44 Squamous Epith 3 /HPF ()?? 10/13/2024 18:44 ? URINE OTHER Est Creatinine Clearance 78.66 mL/min ()?? 10/15/2024 05:15 ? 32??minutes spent on discharge reviewing case, IPOC/nursing rounds, explaining discharge instructions, answering patient questions. Section 12 was signed by me prior to discharge. * Shai IBARRA, Brenda: PERFORM Event Display: Patient Education/Instruction Authored Date: [id number] Inpatient Adult Discharge Instructions. [address] [address] Name: CHERYL GONZALES : 1985?? Visit: 10/12/2024 17:00?? Current Date: 10/18/2024 14:35 ?? Account: [id number]?? Inpatient Adult Discharge Instructions We would like to thank you for allowing us to assist you with your healthcare needs. The following includes patient education materials and information regarding your injury/illness. Our entire staffstrives to provide an excellent experience for our patients and their families. PLEASE ENSURE YOU FOLLOW-UP PER THE INSTRUCTIONS BELOW! ?? YOUR OPINION IS IMPORTANT TO US! Please complete the survey you may receive by mail or email. Your feedback will be used to make improvements to the healthcare experiences of our patients and their families. Surveys are administered by [employer] ?? If further treatment with your primary care physician or another doctor is recommended, it is important for you to keep the appointment. Call your primary care physician or return to the Emergency Department immediately if your condition worsens, fails to improve, or new symptoms develop. If you need to find a doctor, you can call [facility] Link for a referral at [phone] or toll free at [phone]) or log in to [email or web address].. ?? [facility], in keeping with [facility] guidance, no longer requires face masks for staff, patientsor visitors in most situations. Similiar to time spent indoors at other locations, there is the chance that you were exposed to repiratory viruses during your time with us (such as flu or COVID-19). If you develop symptoms concerning for a viral respiratory infection, please seek testing (and treatment if indicated) from your medical provider or home test kit. ?? You can view and manage your care through the patient portal or by using a health care ramona of your choosing. [email or web address] is a website that allows you to securely view your medical information including your hospital discharge summary, office visit summaries, medications and follow-up visits. You can also request appointments, renew medications, and request access to your medical information using a health care ramona of your choosing, or just ask a question. You can enroll at [email or web address] or register during your next office visit. You have been discharged from [facility], Patient Care Unit: Med Surg??. If you have any questions regarding these instructions, including results of studies pending, afteryou leave, please call us and we will be happy to assist you 16/03. [facility] Your Care Team Attending Physician Jimmie Mathias DO?? Consulting Providers Jimmie Mathias DO?? Discharging Providers Jimmie Mathias DO Your Diagnosis Anxiety depression Asthma Jennifer-Danlos syndrome Underweight Suicide attempt Malnutrition Prolonged QT interval H/O: anorexia nervosa Nausea Urinary retention Ingestion of toxic substance Severe malnutrition Vitamin D deficiency Tests Performed Below is a partial list of the tests performed during your hospitalization. You may have had other tests and procedures not included in this list. Please discuss all test results with your provider. Basic Metabolic Panel CBC HOLD LAVENDER TUBE Magnesium Level Mg Level PHOSPHORUS Urinalysis [facility] URINE MICROSCOPIC Vitamin B12 Level Add On Lab Order?? Basic Metabolic Panel?? CBC?? Hold Lavender Top Tube (HOLD LAVENDER TUBE)?? Magnesium Level?? Phosphorus Level (PHOSPHORUS)?? Urinalysis [facility]?? Urine Microscopic?? Vitamin B12 Level?? Primary Care Provider Debi Machado NP? Advance Directive Health Care Proxy on File Yes - Health Care Proxy Discharge Vitals Temperature: 97.6 DegF Height: 153 cm Pulse Rate: 79 bpm Weight: 40.9 kg Respiratory Rate: 20 br/min Body Mass Index:??17.47 kg/m2??Low Systolic Blood Pressure: 106 mm Hg Body surface area: 1.32 Diastolic Blood Pressure: 80 mm Hg ?? Oxygen Saturation: 96 % ?? Studies Pending All studies ordered during this hospital stay have been completed unless listed below. Please discuss all pending results with your provider listed above in these instructions. ?? Add On Lab Order?? What to do next Instructions From Your Doctor You are being [facility] to[facility]. Further instructions will follow when you are cleared by psychiatry.?? I have started you on 40mg of Lurasidone, as instructed by psychiatry at [facility].?? Adonis has stopped Vraylar, Clonazepam, Clonidine,??lithium, and??bupropion. Psychiatry may restart some of these medications.?? I have also started you on Vitamin D as you have vitamin D deficiency.?? Return to the ED for any concerning symptoms or thoughts of self harm? Orders? 10/18/24 10:44:00 EST?? Prescriptions??, ??10/18/24 10:44:00 EST?? Scheduled Follow-Up Appointments December. 2024 2:00 PM EDT ?? With: Luciano Rojas Where: [facility] [address] [place] [address]- Status: Pending You Need to Schedule the Following Appointments Follow Up with??Debi Machado NP Where: [address] [place] [address]- Discharge Medications CHERYL GONZALES :1985 Visit Date:10/12/2024 Medications: Please continue your medications until treatment is completed or stopped by your provider. Medications not listed below should be discontinued. Discuss any questions related to medications with your provider. What How Much When Instructions Next Dose New Cholecalciferol (Vitamin D3 1000 intl units oral tablet) Oral Daily Tomorrow AM New lurasidone (lurasidone 40 mg oral tablet) 40 Milligram Oral Daily at supper Today 5PM Changed HydrOXYzine (hydrOXYzine pamoate 25 mg oral capsule) 1 capsule Oral 4 times a day as needed for Anxiety Last given 10/17 Unchanged Acetaminophen-Butalbital (acetaminophen-butalbital 325 mg-50 mg oral tablet) 1 tab(s) Oral Daily as needed for as needed As needed as directed Unchanged Albuterol (Albuterol (Eqv-ProAir HFA)) 2 puff(s) Inhalation Every 6 hours as needed for Wheezing/Shortness of Breath As needed as directed Unchanged Ascorbic Acid (Vitamin C 1000 mg oral tablet) 1 tab(s) Oral Daily Tomorrow AM Unchanged Bethanechol (bethanechol 25 mg oral tablet) 1 tab(s) Oral 3 times a day Duration: 10 Days As directed Unchanged Meclizine (meclizine 25 mg oral tablet) 1 tab(s) Oral Daily as needed for as needed for motion sickness As needed as directed Unchanged Tamsulosin (tamsulosin 0.4 mg oral capsule) 1 capsule Oral Daily at Bedtime Tonight 9PM Unchanged Trazodone (traZODone 50 mg oral tablet) 0.5 tab(s) Oral Daily at Bedtime Duration: 30 Days Tonight 9PM ?? What How Much When Comments Stop Taking Buprenorphine (Belbuca 75 mcg buccal film) 1 Film Sublingual Every 12 hours Stop Taking BuPROpion (buPROPion 300 mg/ 24 hours (XL) oral tablet, extended release) 1 tab(s) Oral Daily Stop Taking Butabarbital 1 tab(s) Oral Daily as needed for Pain , Moderate Stop Taking cariprazine (Vraylar 6 mg oral capsule) 1 capsule Oral Daily Stop Taking Clonazepam (clonazePAM 0.5 mg oral tablet) 1 tab(s) Oral Twice a day Stop Taking Clonidine (cloNIDine 0.1 mg oral tablet) 1 tab(s) Oral 4 times a day as needed for Anxiety Stop Taking [place] (lithium 300 mg oral tablet, extended release) 2 tab(s) Oral Daily at Bedtime Stop Taking Nicotine (Nicotine 7 mg/ 24 hour patch) 1 patch(es) Topically Daily Duration: 14 Days Stop Taking Quetiapine (QUEtiapine 150 mg oral tablet, extended release) 1 tab(s) Oral Daily at Bedtime Prescription Given During Visit No new medications prescribed at time of discharge.?? Laboratory Results Below is a partial list of the most recent Laboratory test results done prior to this discharge. You may have had other tests and procedures not included in this list. Please discuss all test resultswith your provider. Est Creatinine Clearance - 78.66 mL/min (10/15/2024) Basic Metabolic Panel (10/15/2024) ???Sodium - 138 mmol/L???Potassium - 4.4 mmol/L???Chloride - 108 mmol/L???Bicarbonate Level - 20 mmol/L???Anion Gap - 10 mmol/L???Glucose Level - 90 mg/dL???BUN - 12 mg/dL???Creatinine-Blood - 0.62 mg/dL???Estimated GFR Creatinine - 116 ML/MIN/1.73 M2???Calcium - 9.0 mg/dL CBC (10/14/2024) ???WBC - 5.4 k/mm3???RBC - 3.67 m/mm3???Hgb - 11.8 Gm/dL???Hct - 35.7 %???MCV - 97.3 femtoliters???MCH - 32.2 pg???MCHC - 33.1 Gm/dL???Platelet Count - 239 k/mm3???RDW-SD - 46.0 femtoliters???MPV - 10.4 femtoliters???Nucleated RBC (Automated) - 0.0 #/100 WBC'S???Abs. NRBC - 0.0 k/mm3 HOLD LAVENDER TUBE (10/15/2024) ???Hold Lavender Top - SPECIMEN DISCARDED AFTER 24 HOURS. Magnesium Level (10/15/2024) ???Magnesium - 2.1 mg/dL Mg Level (10/13/2024) ???Magnesium - 2.0 mg/dL PHOSPHORUS (10/13/2024) ???Phosphorus - 3.7 mg/dL Urinalysis [facility] (10/13/2024) ???Appear/Color, Urine - COLORLESS???Clarity - CLEAR???Specific Coleman, Urine - 1.010???pH, Urine - 7.5???Albumin, Urine - NEGATIVE???Glucose, Urine - NEGATIVE???Ketones, Urine - NEGATIVE???Bilirubin, Urine - NEGATIVE???Hemoglobin, Urine - NEGATIVE???Nitrite, Urine - NEGATIVE???Leukocyte, Urine - 1 +???Urobilinogen - NORMAL URINE MICROSCOPIC (10/13/2024) ???WBC's, Urine - 5 /HPF???RBC's, Urine - 1 /HPF???Squamous Epith - 3 /HPF Vitamin B12 Level (10/14/2024) ???Vitamin B12 Level - 505 pg/mL You will be contacted within 72 hours with your results. Allergies (NKA means No Known Allergies) Levaquin Macrodantin??(itching and tired) Zithromax??(facial swelling and itching) Problems Active Problems??(24) Anxiety depression?? Asthma?? Bladder catheterization?? CTS - Carpal tunnel syndrome?? Drug interaction?? Drug-induced constipation?? Dry mouth?? Jennifer-Danlos syndrome?? Juvenile osteoporosis?? [place] toxicity?? Malnutrition?? Malnutrition?? Mechanical low back pain?? Migraine?? Myofascial pain syndrome?? Osteogenesis imperfecta?? Painless rectal bleeding?? Rectocele?? Shoulder pain, left?? Sinus bradycardia?? Symptomatic bradycardia?? UI - Urinary incontinence?? Underweight?? Urinary retention?? Education Materials Below is the list of Educational Leaflet Providered with your Discharge Instructions. Valuables and Belongings I fully understand and agree that [facility] accepts no responsibility for all my personal property including clothing, toilet articles, radios, jewelry, dentures, hearing aids, rings, money, or any other property that is in my possession or is brought to me after admission. I understand certain valuables may be placed in a hospital safe for a short period of time. I understand that the hospital is not liable for loss or damage due to accident, fire, or other natural occurrence while said property is in the safe. I accept full responsibility for any personal property that I keep with me, and will not hold the hospital responsible in case of loss or disappearance. I acknowledge that i have been encouraged to send valuables and belongings home. ?? Safe envelope number: [id number] Review of Valuable and Belonging List: With patient, With witness Disposition of Belongings: Valuables Locked Date for Pt to Sign Valuables/Belongings: 10/12/24 17:35:00 ?? Other Discharge Information ? Pulmonary Rehab Status?? Pulmonary Rehab Discharge Status?? Respiratory Rate: 20 br/min ? Common Emergency Awareness Tips IS IT A STROKE? Act FAST and Check for these signs: FACE Does the face look uneven? ARM Does one arm drift down? SPEECH Does their speech sound strange? TIME Call at any sign of stroke ?? Heart Attack Signs Chest discomfort: Most heart attacks involve discomfort in the center of the chest and lasts more than a few minutes, or goes away and comes back. It can feel like uncomfortable pressure, squeezing, fullness or pain. Discomfort in upper body: Symptoms can include pain or discomfort in one or both arms, back, neck, jaw or stomach. Shortness of breath: With or without discomfort. Other signs: Breaking out in a cold sweat, nausea, or lightheaded. Remember, MINUTES DO MATTER. If you experience any of these heart attack warning signs, call to get immediate medical attention! ?? Smoking can increase your chances of developing chronic health problems and can cause harmful effects to other family members in your house. If you smoke, you are strongly encouraged to quit. Please call [facility] Go[employer] Link at [phone] or [phone] ([phone]) or log in to [email or web address] for referrals to smoking cessation programs. ?? 895 Suicide & Crisis Lifeline is available 16/03 if you or someone you know needs to find a reason to keep living. By calling 037 you'll be connected to a skilled, trained counselor at a crisis center in your area. INPATIENT DISCHARGE INSTRUCTIONS SIGNATURE PAGE CHERYL GONZALES Location:[facility] Registration Date and Time:10/12/2024 17:00 EST Primary Care Physician: Debi Machado NP, Attending Physician: Jimmie Mathias DO, I CHERYL GONZALES, have received the above patient education materials/instructions and have verbalizedunderstanding. If ambulance or transport services are being used I further acknowledge being given a choice of service. ?? If you need to contact me, please call me at this number: . Patient/Multicultural Services Librarian Name: Patient/Multicultural Services Librarian Signature: Relationship to Patient: Witness Name/Signature: Date: * Siomara Walton RN: PERFORM Event Display: Patient Education/Instruction Authored Date: [id number] Inpatient Adult Discharge Instructions. [address] [address] Name: CHERYL GONZALES : 1985?? Visit: 10/12/2024 17:00?? Current Date: 10/18/2024 13:54 ?? Account: [id number]?? Inpatient Adult Discharge Instructions We would like to thank you for allowing us to assist you with your healthcare needs. The following includes patient education materials and information regarding your injury/illness. Our entire staffstrives to provide an excellent experience for our patients and their families. PLEASE ENSURE YOU FOLLOW-UP PER THE INSTRUCTIONS BELOW! ?? YOUR OPINION IS IMPORTANT TO US! Please complete the survey you may receive by mail or email. Your feedback will be used to make improvements to the healthcare experiences of our patients and their families. Surveys are administered by [employer] ?? If further treatment with your primary care physician or another doctor is recommended, it is important for you to keep the appointment. Call your primary care physician or return to the Emergency Department immediately if your condition worsens, fails to improve, or new symptoms develop. If you need to find a doctor, you can call [facility] [employer] Link for a referral at [phone] or toll free at [phone] ([phone]) or log in to [email or web address].. ?? [facility], in keeping with [facility] guidance, no longer requires face masks for staff, patientsor visitors in most situations. Similiar to time spent indoors at other locations, there is the chance that you were exposed to repiratory viruses during your time with us (such as flu or COVID-19). If you develop symptoms concerning for a viral respiratory infection, please seek testing (and treatment if indicated) from your medical provider or home test kit. ?? You can view and manage your care through the patient portal or by using a health care ramona of your choosing. [email or web address] is a website that allows you to securely view your medical information including your hospital discharge summary, office visit summaries, medications and follow-up visits. You can also request appointments, renew medications, and request access to your medical information using a health care ramona of your choosing, or just ask a question. You can enroll at [email or web address] or register during your next office visit. You have been discharged from [facility], Patient Care Unit: Med Surg??. If you have any questions regarding these instructions, including results of studies pending, afteryou leave, please call us and we will be happy to assist you 16/03. [facility] Your Care Team Attending Physician Jimmie Mathias DO?? Consulting Providers Jimmie Mathias DO?? Discharging Providers Jimmie Mathias DO Your Diagnosis Anxiety depression Asthma Jennifer-Danlos syndrome Underweight Suicide attempt Malnutrition Prolonged QT interval H/O: anorexia nervosa Nausea Urinary retention Ingestion of toxic substance Severe malnutrition Vitamin D deficiency Tests Performed Below is a partial list of the tests performed during your hospitalization. You may have had other tests and procedures not included in this list. Please discuss all test results with your provider. Basic Metabolic Panel CBC HOLD LAVENDER TUBE Magnesium Level Mg Level PHOSPHORUS Urinalysis [facility] URINE MICROSCOPIC Vitamin B12 Level Add On Lab Order?? Basic Metabolic Panel?? CBC?? Hold Lavender Top Tube (HOLD LAVENDER TUBE)?? Magnesium Level?? Phosphorus Level (PHOSPHORUS)?? Urinalysis [facility]?? Urine Microscopic?? Vitamin B12 Level?? Primary Care Provider Jeannette MAN, Debi? Advance Directive Health Care Proxy on File Yes - Health Care Proxy Discharge Vitals Temperature: 97.6 DegF Height: 153 cm Pulse Rate: 79 bpm Weight: 40.9 kg Respiratory Rate: 20 br/min Body Mass Index:??17.47 kg/m2??Low Systolic Blood Pressure: 106 mm Hg Body surface area: 1.32 Diastolic Blood Pressure: 80 mm Hg ?? Oxygen Saturation: 96 % ?? Studies Pending All studies ordered during this hospital stay have been completed unless listed below. Please discuss all pending results with your provider listed above in these instructions. ?? Add On Lab Order?? What to do next Instructions From Your Doctor [facility]. Further instructions will follow when you are cleared by psychiatry.?? I have started you on 40mg of Lurasidone, as instructed by psychiatry at [place].?? Adonis has stopped Vraylar, Clonazepam, Clonidine,??lithium, and??bupropion. Psychiatry may restart some of these medications.?? I have also started you on Vitamin D as you have vitamin D deficiency.?? Return to the ED for any concerning symptoms or thoughts of self harm? Orders? 10/18/24 10:44:00 EST?? Prescriptions??, ??10/18/24 10:44:00 EST?? Scheduled Follow-Up Appointments December. 2024 2:00 PM EDT ?? With: Luciano Rojas Where: [facility] [address] [place] [address]- Status: Pending You Need to Schedule the Following Appointments Follow Up with??Jeannette MAN, Debi Where: [address] [place] [address]- Discharge Medications CHERYL GONZALES :1985 Visit Date:10/12/2024 Medications: Please continue your medications until treatment is completed or stopped by your provider. Medications not listed below should be discontinued. Discuss any questions related to medications with your provider. What How Much When Instructions Next Dose New Cholecalciferol (Vitamin D3 1000 intl units oral tablet) Oral Daily 10/19 9AM Changed HydrOXYzine (hydrOXYzine pamoate 25 mg oral capsule) 1 capsule Oral 4 times a day as needed for Anxiety last dose 10/18 830PM Unchanged Acetaminophen-Butalbital (acetaminophen-butalbital 325 mg-50 mg oral tablet) 1 tab(s) Oral Daily as needed for as needed Unchanged Albuterol (Albuterol (Eqv-ProAir HFA)) 2 puff(s) Inhalation Every 6 hours as needed for Wheezing/Shortness of Breath Unchanged Ascorbic Acid (Vitamin C 1000 mg oral tablet) 1 tab(s) Oral Daily 10/19 9AM Unchanged Bethanechol (bethanechol 25 mg oral tablet) 1 tab(s) Oral 3 times a day Duration: 10 Days 10/19 9PM Unchanged Meclizine (meclizine 25 mg oral tablet) 1 tab(s) Oral Daily as needed for as needed for motion sickness Unchanged Quetiapine (QUEtiapine 150 mg oral tablet, extended release) 1 tab(s) Oral Daily at Bedtime 10/19 9PM Unchanged Tamsulosin (tamsulosin 0.4 mg oral capsule) 1 capsule Oral Daily at Bedtime 10/19 9PM Unchanged Trazodone (traZODone 50 mg oral tablet) 0.5 tab(s) Oral Daily at Bedtime Duration: 30 Days 10/19 9PM ?? What How Much When Comments Stop Taking Buprenorphine (Belbuca 75 mcg buccal film) 1 Film Sublingual Every 12 hours Stop Taking BuPROpion (buPROPion 300 mg/ 24 hours (XL) oral tablet, extended release) 1 tab(s) Oral Daily Stop Taking Butabarbital 1 tab(s) Oral Daily as needed for Pain , Moderate Stop Taking cariprazine (Vraylar 6 mg oral capsule) 1 capsule Oral Daily Stop Taking Clonazepam (clonazePAM 0.5 mg oral tablet) 1 tab(s) Oral Twice a day Stop Taking Clonidine (cloNIDine 0.1 mg oral tablet) 1 tab(s) Oral 4 times a day as needed for Anxiety Stop Taking [place] (lithium 300 mg oral tablet, extended release) 2 tab(s) Oral Daily at Bedtime Stop Taking Nicotine (Nicotine 7 mg/ 24 hour patch) 1 patch(es) Topically Daily Duration: 14 Days Prescription Given During Visit No new medications prescribed at time of discharge.?? Laboratory Results Below is a partial list of the most recent Laboratory test results done prior to this discharge. You may have had other tests and procedures not included in this list. Please discuss all test resultswith your provider. Est Creatinine Clearance - 78.66 mL/min (10/15/2024) Basic Metabolic Panel (10/15/2024) ???Sodium - 138 mmol/L???Potassium - 4.4 mmol/L???Chloride - 108 mmol/L???Bicarbonate Level - 20 mmol/L???Anion Gap - 10 mmol/L???Glucose Level - 90 mg/dL???BUN - 12 mg/dL???Creatinine-Blood - 0.62 mg/dL???Estimated GFR Creatinine - 116 ML/MIN/1.73 M2???Calcium - 9.0 mg/dL CBC (10/14/2024) ???WBC - 5.4 k/mm3???RBC - 3.67 m/mm3???Hgb - 11.8 Gm/dL???Hct - 35.7 %???MCV - 97.3 femtoliters???MCH - 32.2 pg???MCHC - 33.1 Gm/dL???Platelet Count - 239 k/mm3???RDW-SD - 46.0 femtoliters???MPV - 10.4 femtoliters???Nucleated RBC (Automated) - 0.0 #/100 WBC'S???Abs. NRBC - 0.0 k/mm3 HOLD LAVENDER TUBE (10/15/2024) ???Hold Lavender Top - SPECIMEN DISCARDED AFTER 24 HOURS. Magnesium Level (10/15/2024) ???Magnesium - 2.1 mg/dL Mg Level (10/13/2024) ???Magnesium - 2.0 mg/dL PHOSPHORUS (10/13/2024) ???Phosphorus - 3.7 mg/dL Urinalysis [facility] (10/13/2024) ???Appear/Color, Urine - COLORLESS???Clarity - CLEAR???Specific [place], Urine - 1.010???pH, Urine - 7.5???Albumin, Urine - NEGATIVE???Glucose, Urine - NEGATIVE???Ketones, Urine - NEGATIVE???Bilirubin, Urine - NEGATIVE???Hemoglobin, Urine - NEGATIVE???Nitrite, Urine - NEGATIVE???Leukocyte, Urine - 1 +???Urobilinogen - NORMAL URINE MICROSCOPIC (10/13/2024) ???WBC's, Urine - 5 /HPF???RBC's, Urine - 1 /HPF???Squamous Epith - 3 /HPF Vitamin B12 Level (10/14/2024) ???Vitamin B12 Level - 505 pg/mL You will be contacted within 72 hours with your results. Allergies (NKA means No Known Allergies) Levaquin Macrodantin??(itching and tired) Zithromax??(facial swelling and itching) Problems Active Problems??(24) Anxiety depression?? Asthma?? Bladder catheterization?? CTS - Carpal tunnel syndrome?? Drug interaction?? Drug-induced constipation?? Dry mouth?? Jennifer-Danlos syndrome?? Juvenile osteoporosis?? [place] toxicity?? Malnutrition?? Malnutrition?? Mechanical low back pain?? Migraine?? Myofascial pain syndrome?? Osteogenesis imperfecta?? Painless rectal bleeding?? Rectocele?? Shoulder pain, left?? Sinus bradycardia?? Symptomatic bradycardia?? UI - Urinary incontinence?? Underweight?? Urinary retention?? Education Materials Below is the list of Educational Leaflet Providered with your Discharge Instructions. Valuables and Belongings I fully understand and agree that [facility] accepts no responsibility for all my personal property including clothing, toilet articles, radios, jewelry, dentures, hearing aids, rings, money, or any other property that is in my possession or is brought to me after admission. I understand certain valuables may be placed in a hospital safe for a short period of time. I understand that the hospital is not liable for loss or damage due to accident, fire, or other natural occurrence while said property is in the safe. I accept full responsibility for any personal property that I keep with me, and will not hold the hospital responsible in case of loss or disappearance. I acknowledge that i have been encouraged to send valuables and belongings home. ?? Safe envelope number: [id number] Review of Valuable and Belonging List: With patient, With witness Disposition of Belongings: Valuables Locked Date for Pt to Sign Valuables/Belongings: 10/12/24 17:35:00 ?? Other Discharge Information ? Pulmonary Rehab Status?? Pulmonary Rehab Discharge Status?? Respiratory Rate: 20 br/min ? Common Emergency Awareness Tips IS IT A STROKE? Act FAST and Check for these signs: FACE Does the face look uneven? ARM Does one arm drift down? SPEECH Does their speech sound strange? TIME Call at any sign of stroke ?? Heart Attack Signs Chest discomfort: Most heart attacks involve discomfort in the center of the chest and lasts more than a few minutes, or goes away and comes back. It can feel like uncomfortable pressure, squeezing, fullness or pain. Discomfort in upper body: Symptoms can include pain or discomfort in one or both arms, back, neck, jaw or stomach. Shortness of breath: With or without discomfort. Other signs: Breaking out in a cold sweat, nausea, or lightheaded. Remember, MINUTES DO MATTER. If you experience any of these heart attack warning signs, call to get immediate medical attention! ?? Smoking can increase your chances of developing chronic health problems and can cause harmful effects to other family members in your house. If you smoke, you are strongly encouraged to quit. Please call [facility] Link at [phone] or [phone] ([phone]) or log in to [email or web address] for referrals to smoking cessation programs. ?? 708 Suicide & Crisis Lifeline is available 16/03 if you or someone you know needs to find a reason to keep living. By calling 662 you'll be connected to a skilled, trained counselor at a crisis center in your area. INPATIENT DISCHARGE INSTRUCTIONS SIGNATURE PAGE CHERYL GONZALES Location:[facility] Registration Date and Time:10/12/2024 17:00 EST Primary Care Physician: Debi Machado NP, Attending Physician: Jimmie Mathias DO, CHERYL DOS SANTOS, have received the above patient education materials/instructions and have verbalizedunderstanding. If ambulance or transport services are being used I further acknowledge being given a choice of service. ?? If you need to contact me, please call me at this number: . Patient/Multicultural Services Librarian Name: Patient/Multicultural Services Librarian Signature: Relationship to Patient: Witness Name/Signature: Date: Patient Care team information Care Team Personnel Name: Ofelia Maddox RN Position: SHANON RN Member Role: Primary Care Nurse Name: Renetta Barger RN Position: SHANON LOMELI RN W/OE and Tasks Member Role: Primary Care Nurse Name: Debi Machado NP Position: Reference Physician Member Role: PCP Address: [address] [place] [id number] [[email or web address]] Telecom: Care Team Related Persons Name: COURT GONZALES Name: ZEV GONZALES Insurance Providers Guarantor name: CHERYL GONZALES Health Plan Information #: 1 Payer: MEDICARE A INPT 25 Member Number: [id number] Policy Number: NA Group Number: NA Health Plan Information #: 2 Payer: [facility] Member Number: [id number] Policy Number: NA Group Number: [id number]
--- OUTSIDE RECORDS SUMMARY | 2024-11-03 18:43 | XMS_ITS | Clinical Summary ---
Author Organization [address] [facility] Address [address] [place] [address] Phone Care Team Providers Care Finish Painter Name Role Phone Unavailable Primary Care Provider Unavailabl e Encounters Date Type Department Care Team Description 08/10/2024 Lab Requisition [facility] - Main Lab [address] [facility] [place] [address] Shavonne Zavaleta NP from Last 3 Months Surgical History Surgery Date Site/Laterality Comments KNEE SURGERY 07/27/07 PROCEDURE: HISTORICAL KNEE SURGERY; COMMENT: recurrent left patella dislocation- 5 surgeries Left knee OTHER SURGICAL HISTORY PROCEDURE: HI CRANIECTOMY/CRANIOTOMY EXC FOREIGN BODY BRAIN; COMMENT: BB removed - age 3 WRIST SURGERY Left PROCEDURE: HISTORICAL WRIST SURGERY; COMMENT: Multiple wrist surgeries with Dr. 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:Jennifer -Danlos syndrome Osteogenesis imperfecta 1998 DX:Osteo mary imperfecta Family History Relation Name Status Comments Brother Alive Healthy Father Alive OK Maternal Grandfather Lung ca ncer Maternal Grandmother Lung ca ncer Mother Alive HTN Paternal Grandfather Artery problems Paternal Grandmother Alive Healhty Social History Tobacco Use Types Packs/Day Years [...] on file Sexual Orientation Not on file Obstetrics History Last Filed Vital Signs Vital Sign Reading Time Taken Comments Blood Pressure - - Pulse - - Temperature - - Respiratory Rate - - Oxygen Saturation - - Inhaled Oxygen Concentration - - Weight 51.7 kg (114 lb) 04/29/2022 2:32 PM EDT Height 154.9 cm (5' 1 ) 04/29/2022 2:32 PM EDT Body Mass Index 21.54 04/29/2022 2:32 PM EDT Plan of Treatment Health Maintenance Due Date Last Done Comments Hepatitis B Vaccines (1 of 3 - 19+ 3-dose series) 2004 Pneumococcal Vaccine: Pediat rics (0 to 5 Years) and At-Risk Patients (6 to 64 Years) (1 of 2 - PCV) 2004 Cervical Cancer Screening: P ap Smear 2006 HPV Vaccines (2 - 3-dose series) 02/15/2008 01/18/20 08 DTaP,Tdap,and Td Vaccines (2 - Td or Tdap) 01/17/2018 01/18/2008 Depression Screening 07/22/2022 HIV Screening 07/22/2022 Hepatitis C Screening 07/22/2022 Social Influencers of Health Screening 07/22/2022 COVID-19 Vaccine (2023-2 5 season) 2024 Influenza Vaccine (#1) 2024 Cholesterol Screening (Lipid Panel) 08/03/2029 08/03/2024 HIB Vaccines Aged Out No longer eligi ble based on patient's age to complete this topic Hepatitis A Vaccines Aged Out No long er eligible based on patient's age to complete this topic IPV Vaccines Aged Out No longer eligi ble based on patient's age to complete this topic MMR Vaccines Aged Out No longer eligi ble based on patient's age to complete this topic Meningococcal ACWY Vaccine Aged Out N o longer eligible based on patient's age to complete this topic Meningococcal B Vacine Aged Out No lo nger eligible based on patient's age to complete this topic RSV Immunization Patients Un chris 20 months Aged Out No longer eligible b ased on patient's age to complete this topic Varicella Vaccines Aged Out No longer eligible based on patient's age to complete this topic Procedures Procedure Name Priority Date/Time Associated Diagnosis Comments LIPID PANEL WITH REFLEX TO DIRECT LDL Routine 08/03/2024 7:00 AM EST Other supervisor evaporator (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 from Last 3 Months or Most Recently Relevant to Health Maintenance Results * (ABNORMAL) Lipid panel with reflex to direct LDL (08/03/2024 7:00 AM EST) Cholesterol 201(H) 0 - 200 mg/dL LAB CHEMISTRY METHOD 08/03/2024 1:28 PM EST [facility] Triglycerides 185(H) 0 - 150 mg/dL LAB CHEMISTRY METHOD 08/03/2024 1:28 PM EST [facility] HDL 87 >=40 mg/dL LAB CHEMISTRY METHOD 08/03/2024 1:28 PM EST [facility] LDL Calculated 77 0 - 100 mg/dL LAB CHEMISTRY METHOD 08/03/2024 1:28 PM [facility] VLDL Cholesterol Rahul 37 mg/dL LAB CHEMISTRY METHOD 08/03/2024 1:28 PM EST [facility] Non HDL Chol. (LDL+VLDL) 114 <145 mg/dL LAB CHEMISTRY METHOD 08/03/2024 1:28 PM EST [facility] Chol/HDL Ratio 2.3 0.0 - 4.4 LAB CHEMISTRY METHOD 08/03/2024 1:28 PM [facility] Blood Venous blood specimen / Unknown Venipuncture / Unknown 08/03/2024 7:00 AM EST 08/03/2024 12:08 PM EST us Shavonne Zavaleta STEAM POWERPLANT SUPERVISOR LAB BLOOD ORDERABLES Fi nal Result [facility] [address] [place] [address], [place] [phone] from Last 3 Months or Most Recently Relevant to Health Maintenance
== END 2024-11-03 18:13 | disposition home or self-care (01) ==
LOC: HO.HMCFM 14:57
PROVIDERS: PCP Nurse Practitioner Family; Visit Provider Nurse Practitioner Family
DX: F41.1 Generalized anxiety disorder (principal); F33.2 Major depressive disorder, recurrent severe without psychotic features; Z91.51 Personal history of suicidal behavior; J06.9 Acute upper respiratory infection, unspecified; R06.2 Wheezing

== ENCOUNTER 2024-11-14 09:39 | Outpatient (AMB) | payer MEDICARE, MEDICAID, SELFPAY ==
--- NOTE | 2024-11-14 10:13 | MHC.OFFVISPS ---
Intake Intake Visit Reasons: consultation Allergies azithromycin Allergy (Verified 11/03/24 15:20) Itching levofloxacin [From Levaquin] Allergy (Verified 11/03/24 15:20) Nightmare nitrofurantoin [From Macrodantin] Allergy (Verified 11/03/24 15:20) Itching Medication List - Last Reconciled 11/14/24 by Barbi Rivera, SAAN acetaminophen 975 mg (3 x 325 mg) PO Q8H albuterol sulfate 90 mcg/actuation 2 puffs inhalation QID PRN 30 days ascorbic acid (vitamin C) (Vitamin C) 1,000 mg PO DAILY 30 days bethanechol chloride 25 mg PO TID 30 days nnrvzelkrl-wtxmljdjkqgmk-rlyy 50-325-40 mg 1 tab PO DAILY PRN cholecalciferol (vitamin D3) 50 mcg PO DAILY hydroxyzine pamoate 25 mg PO 3XD PRN 2 weeks ibuprofen mg PO 3XD lurasidone 40 mg PO DAILY meclizine 25 mg PO DAILY PRN quetiapine 150 mg PO BEDTIME 2 weeks tamsulosin 0.4 mg PO BEDTIME 30 days HPI- Psychiatric Chief Complaint: consultation HPI Narrative: Pt referred by PCP for [place] appt until reconnects with [facility]. Pt recently hospitalized 3 times for depression intentional overdose and malnutrition. Pt BMI = 18.5. She reports she weighs 84 pounds and feels heavy. She saw PCP 11/03. Pt states she is taking latuda 40m g daily with ensure. she takes seroquel 150mg at bedtime or she can't sleep; she has rx for hydroxyzine 25mg tid prn anxiety. pt would like to be on benzodiazepeine for anxiety but explained that she overdosed and that its contraindicated for her unfortunately. Pt reports her mood is much better since starting on latuda. She denies SI or HI. Her PHQ9= 11 and her GAD7= 15. She is ambivalent about PHP and therapist. She reports he mother is supervising her meds; she signed relase for me to talk to her mother. She says the last 2 years have been very hard for her as she lost her father in 2021 and she is grieving. she says she has conflict with her mother and brother. she also reports a significant stressor has been coming off opiates and ativan which she feels she needed for pain management. she did have recent pain management consult but didn't want to follow their recommendations. 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 she has cardiology appt in december. Past Psychiatric History: 2x 10/04/24-10/06/24 for overdose and again 10/11/24 - 10/18/24 [facility] 10/18-11/03/24 Hospitalized October 2024 at [place] Hospitalized x2 in 2023 at [facility] primarily for eating disorder at age 18. Patient reports multiple hospitalizations for severe low weight and protein in her urine but these hospitalizations were on medical units. In 2021 the patient was in [facility] Emergency room and seen by AB and crisis after she was found wandering the streets she was expressing paranoid ideation stating that her family was trying to poison her she also reported at that time hearing evil voices that are head she reports she was talking to Kade and making statements I am and I am dying they are trying to kill me Subjective Subjective Subjective Medication Compliance: Yes Side effects from medications: No Review of Systems Medical Review of Systems: unchanged Mental Status Exam Mental Status Exam Patient Appearance: Well Grooomed and Appropriate Patient Orientation: Person, Place and Time Level of Consciousness: Awake, Appropriate and Alert Patient Behavior: Appropriate, Guarded and Good Eye Contact Mood Description: Withdrawn and Flat Affect Description: Withdrawn and Flat Patient Cognition Impaired: No Ability to Follow Directions: Good Speech Pattern: Monotone and Coherent Memory Description: Episodic Impaired Hallucinations: None Delusions: Not Present Thought Process: Distracted Thought Content: positive for [place] Judgement: Fair Assessment and Plan Assessment & Plan (1) History of suicide attempt: Status: Acute Code(s): Z91.51 - Personal history of suicidal behavior (2) ANIBAL (generalized anxiety disorder): Status: Acute Code(s): F41.1 - Generalized anxiety disorder (3) Anorexia nervosa: Status: Acute Code(s): F50.00 - Anorexia nervosa, unspecified (4) PTSD (post-traumatic stress disorder): Status: Acute Code(s): F43.10 - Post-traumatic stress disorder, unspecified Plan continue latuda 40 mg daily with ensure continue seroquel 150mg at bedtime for sleep continue hydroxyzine 25 mg tid prn anxiety EKG to recheck QTC release signed to involve mother in treatment/support followuup in 2 weeks continue to pursue [facility] referral. Medications: New quetiapine 150 mg PO BEDTIME 14 tabs 3RF 2 weeks Changed From hydroxyzine pamoate PO 3XD To hydroxyzine pamoate 25 mg PO 3XD PRN 45 caps 1RF anxiety 2 weeks From lurasidone PO DAILY To lurasidone 40 mg PO DAILY 14 tabs 3RF Orders: Orders ECG 12 lead EKG Today R00.1 - Bradycardia, unspecified Counseling and coordination of Care Pt. Self Management counseling: Maintenance-social rhythm, Mod caffeine/ETOH intake, Sleep hygiene, Behavior activation, General coping skills and Problem solving Details-Self Mgmt counseling: crisis management including 988 and BHN phone number Medication management counseling: Effectiveness, Side effects, Dosing range, Duration, Drug interaction and Adherence Diagnosis and Prognosis Counseling: Accuracy of diagnosis, Prognosis over time, Impact of diagnosis on life functions, Impact of family relationship, Problematic behaviors secondary to diagnosis and Adequacy of current interventions Details: I spent 80 minutes reviewing the record, seeing the patient and documenting in the medical record. Counseling provided to the patient/caregiver as outlined below. Addressed patient/caregiver concerns regarding current medication regime including effective adherence. Addressed patient/caregiver concerns regarding diagnosis and prognosis including accuracy of diagnosis, prognosis over time, impact of diagnosis. Addressed patient/caregiver concerns regarding impact of recent stressors. [facility] Medical History (Updated 11/03/24 @ 15:52 by Debi Machado CNP) Anorexia Left wrist injury Scoliosis Swelling Osteoporosis Arthritis Asthma Mood disorder Indwelling Joseph catheter present MDD (major depressive disorder), recurrent severe, without psychosis Sacral nerve stimulator present Rectocele Juvenile osteoporosis Compression fx, lumbar spine History of wrist fracture Myofascial pain syndrome Benzodiazepine dependence Anxiety and depression Surgical History (Updated 08/08/24 @ 14:07 by Ale More MA) History of vaginal surgery History of bladder surgery H/O wrist surgery History of left knee surgery History of right knee surgery History of brain surgery History of placement of ear tubes H/O cystoscopy Family History (Updated 08/08/24 @ 14:02 by Ale More MA) Mother High blood pressure Cardiovascular disease Father Prostate cancer Social History Household Members: Family Household Members Other:: discharged from today, going to med surg post op Housing: House Are you a primary acute care physician to a significant other at home: No Do you presently have visiting nurse or other home services: No Alcohol intake: former Comment: oob with steady gait Patient Tobacco Use Status: Current everyday Tobacco user Tobacco use type: Cigarette Cigarette Packs Per Day: 3 Cigarettes Per Day: 40.0 Years Smoked: Over 20 years e-Cigarette/Vaping Use: Currently Using Second Hand Smoke Exposure: No Substance Use Type: Opiates service: No Current occupational status: disabled Current occupational exposures/hazards: No Sexual orientation: Straight/Heterosexual Cognitive needs: No Hearing needs: No Vision needs: No Social History: Patient reports she did have friends growing up and she was straight a student until she left school at the age of 16 due to anorexia she had to drop out of school due to multiple admissions at [facility] she is socially isolated currently Substance History: denies any hx Trauma History: hx of trauma in addition to Multiple surgeries Coding Level of Care Code Psych Diag Eval w/Med (68980) Diagnoses History of suicide attempt Z91.51 ANIBAL (generalized anxiety disorder) F41.1 Anorexia nervosa F50.00 PTSD (post-traumatic stress disorder) F43.10
== END 2024-11-14 13:10 | disposition home or self-care (01) ==
LOC: HO.HOP 09:39
PROVIDERS: PCP Nurse Practitioner Family; Visit Provider Clinical Nurse Specialist Psychiatric/Mental Health
DX: F50.00 Anorexia nervosa, unspecified (principal); F41.1 Generalized anxiety disorder; Z91.51 Personal history of suicidal behavior; F43.10 Post-traumatic stress disorder, unspecified
CPT/HCPCS: 99214

== ENCOUNTER → 2024-11-14 09:39 | Outpatient (REF) | payer MEDICARE, MEDICAID, SELFPAY ==
--- NOTE | ~2024-11-14 | XR_ITS ---
EXAMINATION: XR CHEST 2 VIEWS HISTORY: R06.2 - Wheezing COMPARISON: Comparison is made with the prior examination dated 06/19/2024. FINDINGS: PA and lateral views of the chest are submitted. The lungs remain hyperinflated, consistent with COPD. The lungs are clear. There is no pleural effusion, pneumothorax, or pulmonary vascular congestion. The heart is normal in size. The bones are intact. XR/XR chest 2V IMPRESSION: COPD. No acute cardiopulmonary abnormality. Electronically signed by: Myles Valentin MD 11/15/2024 08:28 AM EDT
--- NOTE | 2024-11-14 11:12 | ECG_ITS ---
Test Reason : BRADYCARDIA Blood Pressure : */* mmHG Vent. Rate : 85 BPM Atrial Rate : 85 BPM P-R Int : 132 ms QRS Dur : 94 ms QT Int : 390 ms P-R-T Axes : 63 16 35 degrees QTcB Int : 464 ms Possible electrical interference Normal sinus rhythm Incomplete right bundle branch block Borderline ECG When compared with ECG of 13-Jun-2024 11:10, Vent. rate has increased by 28 bpm Referred By: Barbi Rivera Electronically Signed By: FABIANA WYLIE MD
== END ==
LOC: HO.CARD 09:39
PROVIDERS: Absent Provider Nurse Practitioner Family; PCP Nurse Practitioner Family; Visit Provider Clinical Nurse Specialist Psychiatric/Mental Health
DX: R00.1 Bradycardia, unspecified (principal); R06.2 Wheezing; F41.1 Generalized anxiety disorder; F50.00 Anorexia nervosa, unspecified; F43.10 Post-traumatic stress disorder, unspecified; Z91.51 Personal history of suicidal behavior
CPT/HCPCS: 71046; 93005; 99212

== ENCOUNTER → 2024-11-14 11:12 | Outpatient (BNV) | payer MEDICARE, MEDICAID, SELFPAY | PROVIDERS: Absent Provider Nurse Practitioner Family; PCP Nurse Practitioner Family; Visit Provider Internal Medicine Cardiovascular Disease | DX: R00.1 Bradycardia, unspecified (principal); I45.19 Other right bundle-branch block; R94.31 Abnormal electrocardiogram [ECG] [EKG] | CPT/HCPCS: 93010 ==

== ENCOUNTER → 2024-11-14 11:29 | Outpatient (BNV) | payer MEDICARE, MEDICAID, SELFPAY | PROVIDERS: Absent Provider Nurse Practitioner Family; PCP Nurse Practitioner Family; Visit Provider Radiology Diagnostic Radiology | DX: R06.2 Wheezing (principal) | CPT/HCPCS: 71046 ==

== ENCOUNTER 2024-11-28 13:36 | Outpatient (AMB) | payer MEDICARE, MEDICAID, SELFPAY ==
--- NOTE | 2024-11-28 13:53 | A.OFFPSYCH_ITS ---
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 Allergies azithromycin Allergy (Verified 12/02/24 12:54) Itching levofloxacin [From Levaquin] Allergy (Verified 12/02/24 12:54) Nightmare nitrofurantoin [From Macrodantin] Allergy (Verified 12/02/24 12:54) Itching Medication List - Last Reconciled 11/28/24 by Barbi Rivera, SANA acetaminophen 975 mg (3 x 325 mg) PO Q8H albuterol sulfate 90 mcg/actuation 2 puffs inhalation QID PRN 30 days ascorbic acid (vitamin C) (Vitamin C) 1,000 mg PO DAILY 30 days bethanechol chloride 25 mg PO TID 30 days qsrfnndcmw-ouzrxsttvhnbp-eqis 50-325-40 mg 1 tab PO DAILY PRN cholecalciferol (vitamin D3) 50 mcg PO DAILY hydroxyzine pamoate 25 mg PO 3XD PRN 2 weeks ibuprofen mg PO 3XD lurasidone 40 mg PO DAILY meclizine 25 mg PO DAILY PRN quetiapine 150 mg PO BEDTIME 2 weeks tamsulosin 0.4 mg PO BEDTIME 30 days HPI- Psychiatric Chief Complaint: f/u consultation HPI Narrative: pt here for Bridge follow up appt. she is waiting to reconnect with [facility]. She reports mood worse and anxiety worse. Her PHQ9=18 and her GAD7= 18. She reports feeling more depressed, with poor sleep and poor appetite. she reports increased anxiety and worry; she feels she can't cope with the anxiety without a benzodiazepine. We discussed risks of benzodiazepines and her hx of overusing them. she reports not eating well and worried about gaining weight. She reports passive SI but no plan and no intent. Past Psychiatric History: 2x 10/04/24-10/06/24 for overdose and again 10/11/24 - 10/18/24 [facility] 10/18-11/03/24 Hospitalized October 2024 at [place] Hospitalized x2 in 2023 at [place] [facility] primarily for eating disorder at age 18. Patient reports multiple hospitalizations for severe low weight and protein in her urine but these hospitalizations were on medical units. In 2021 the patient was in [facility] Emergency room and seen by ABH and crisis after she was found wandering the streets she was expressing paranoid ideation stating that her family was trying to poison her she also reported at that time hearing evil voices that are head she reports she was talking to Kade and making statements I am and I am dying they are trying to kill me Subjective Subjective Subjective Medication Compliance: Yes Side effects from medications: No Review of Systems Medical Review of Systems: unchanged Mental Status Exam Mental Status Exam Patient Appearance: Well Grooomed and Appropriate Patient Orientation: Person, Place, Time and Situation Level of Consciousness: Awake and Appropriate Patient Behavior: Appropriate Mood Description: Anxious and Nervous Affect Description: Anxious and Nervous Patient Cognition Impaired: No Ability to Follow Directions: Good Speech Pattern: Clear and Soft-Spoken Memory Description: Intact Hallucinations: None Delusions: Not Present Thought Process: Intact and Rumination Thought Content: positive for Intact, positive for Preoccupation and positive for Loose Associations Judgement: Fair Assessment and Plan Assessment & Plan (1) ANIBAL (generalized anxiety disorder): Status: Acute Code(s): F41.1 - Generalized anxiety disorder (2) Anorexia nervosa: Status: Acute Code(s): F50.00 - Anorexia nervosa, unspecified (3) MDD (major depressive disorder), recurrent severe, without psychosis: Status: Acute Code(s): F33.2 - Major depressive disorder, recurrent severe without psychotic features (4) PTSD (post-traumatic stress disorder): Status: Acute Code(s): F43.10 - Post-traumatic stress disorder, unspecified (5) Chronic pain syndrome: Status: Acute Code(s): G89.4 - Chronic pain syndrome (6) History of suicide attempt: Status: Acute Code(s): Z91.51 - Personal history of suicidal behavior Plan decrease seroquel to 100mg at bedtime due to waking up with panic and hx of low BP decrease hydroxyzine to 10mg up to 5 times a day as needed for anxiety increase latuda to 60mg daily for depression try to drink 6 ounces of water before bedtime try to eat very small amount of food every 2 hours Medications: New lurasidone (Latuda) must administer with food (at least 350 calories) 60 mg PO DAILY 14 tabs 2RF hydroxyzine HCl 10 mg orally may take one tablet up to 5 times a day as needed for anxiety at least 2 hours apart; 40 tabs 2RF quetiapine (Seroquel) 100 mg PO BEDTIME 14 tabs 2RF Discontinued hydroxyzine pamoate Discontinued Reason: Doctor's Order 25 mg PO 3XD 2 weeks PRN 45 caps 1RF anxiety lurasidone Discontinued Reason: Doctor's Order 40 mg PO DAILY 14 tabs 3RF quetiapine Discontinued Reason: Doctor's Order 150 mg PO BEDTIME 2 weeks 14 tabs 3RF Counseling and coordination of Care Pt. Self Management counseling: Med illness tx adherence, Nutrition education and improvement and Cognitive restructuring Medication management counseling: Effectiveness, Side effects, Dosing range, Duration, Drug interaction and Adherence Diagnosis and Prognosis Counseling: Accuracy of diagnosis, Prognosis over time, Impact of diagnosis on life functions, Problematic behaviors secondary to diagnosis and Adequacy of current interventions Details: I spent 45 minutes reviewing the record, seeing the patient and documenting in the medical record. Counseling provided to the patient/caregiver as outlined below. Addressed patient/caregiver concerns regarding current medication regime including effective adherence. Addressed patient/caregiver concerns regarding diagnosis and prognosis including accuracy of diagnosis, prognosis over time, impact of diagnosis. Addressed patient/caregiver concerns regarding impact of recent stressors. [facility] Medical History (Updated 12/02/24 @ 13:09 by Debi Machado CNP) Anorexia Left wrist injury Scoliosis Swelling Osteoporosis Arthritis Asthma Mood disorder Indwelling Joseph catheter present MDD (major depressive disorder), recurrent severe, without psychosis Sacral nerve stimulator present Rectocele Juvenile osteoporosis Compression fx, lumbar spine History of wrist fracture Myofascial pain syndrome Benzodiazepine dependence Anxiety and depression Surgical History (Updated 08/08/24 @ 14:07 by Ale More MA) History of vaginal surgery History of bladder surgery H/O wrist surgery History of left knee surgery History of right knee surgery History of brain surgery History of placement of ear tubes H/O cystoscopy Family History (Updated 08/08/24 @ 14:02 by Ale More MA) Mother High blood pressure Cardiovascular disease Father Prostate cancer Social History Household Members: Family Household Members Other:: discharged from today, going to med surg post op Housing: House Are you a primary vehicle care specialist to a significant other at home: No Do you presently have visiting nurse or other home services: No Alcohol intake: former Comment: oob with steady gait Patient Tobacco Use Status: Current everyday Tobacco user Tobacco use type: Cigarette Cigarette Packs Per Day: 3 Cigarettes Per Day: 40.0 Years Smoked: Over 20 years e-Cigarette/Vaping Use: Currently Using Second Hand Smoke Exposure: No Substance Use Type: Opiates service: No Current occupational status: disabled Current occupational exposures/hazards: No Sexual orientation: Straight/Heterosexual Cognitive needs: No Hearing needs: No Vision needs: No Social History: Patient reports she did have friends growing up and she was straight a student until she left school at the age of 16 due to anorexia she had to drop out of school due to multiple admissions at [facility] she is socially isolated currently Substance History: denies any hx Trauma History: hx of trauma in addition to Multiple surgeries Coding Level of Care Code Est Pt Level 4 (48593) Therapy 30m w/E&M (30497) Diagnoses ANIBAL (generalized anxiety disorder) F41.1 Anorexia nervosa F50.00 MDD (major depressive disorder), recurrent severe, without psychosis F33.2 PTSD (post-traumatic stress disorder) F43.10 Chronic pain syndrome G89.4 History of suicide attempt Z91.51
--- OUTSIDE RECORDS SUMMARY | 2024-11-28 16:10 | XMS_ITS | Encounter Summary ---
Author Organization [facility] Address [address] [place] [address] Care Team Providers Care Flight Crew Ordnanceman Name Role Phone Unavailable Primary Care Provider Unavailabl e Encounter Details Date Type Department Care Team (Late st Contact Info) Description 08/10/2024 Lab Requisition [facility] - Main Lab [address] [facility] [place] [address] Shavonne Zavaleta, MAGDA [address] [place] [address] Social History Tobacco Use Types [...] to direct LDL Lab Routine Ordered: 024 [place] level Lab Routine Ordered: Hemoglobin A1c Lab Routine Ordered: 1 10/11/2023 documented as of this encounter Visit Diagnoses Not on filedocumented in this encounter
--- OUTSIDE RECORDS SUMMARY | 2024-11-28 16:10 | XMS_ITS | Encounter Summary ---
Author Organization [facility] Address [address] [place] [address] Care Team Providers Care Ed Tech Name Role Phone Unavailable Primary Care Provider Unavailabl e Encounter Details Date Type Department Care Team (Late st Contact Info) Description 08/03/2024 Lab Requisition [facility] - Main Lab [address] [facility] [employer] [place] [address] Shavonne Zavaleta, MAGDA [address] [place] [address] Other fpc (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 Social History Tobacco Use [...] LDL Routine 08/03/2024 7:00 AM EST Other termination clerk (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 HEMOGLOBIN A1C Routine 08/03/2024 7:00 AM EST Other termination clerk (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 LITHIUM LEVEL Routine 08/03/2024 7:00 AM EST Other termination clerk (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 documented in this encounter Results * (ABNORMAL) [place] level (08/03/2024 7:00 AM EST) [place] Level 0.5(L) 0.6 - 1.2 mEq/L LAB CHEMISTRY METHOD 08/03/2024 1:31 PM EST [facility] Blood Venous blood specimen / Unknown Venipuncture / Unknown 08/03/2024 7:00 AM EST 08/03/2024 12:08 PM EST us Shavonne Zavaleta SCULLION CHIEF LAB BLOOD ORDERABLES Fi nal Result [facility] [address] [place] [address], [place] [phone] * (ABNORMAL) Lipid panel with reflex to [...] 08/03/2024 12:08 PM EST us Shavonnecassius Zavaleta SCULLION CHIEF LAB BLOOD ORDERABLES Fi nal Result Performing Organization Address City/[facility]/ZIP Co de Phone Number [facility] [address] [place] [address], [place] [phone] * Hemoglobin A1c (08/03/2024 7:00 AM EST) Hemoglobin A1C 4.7 <6.5 % LAB CHEMISTRY METHOD 08/03/2024 1:35 PM EST [facility] Mean Bld Glu Estim. 88 mg/dL LAB CHEMISTRY METHOD 08/03/2024 1:35 PM EST [facility] Blood Venous blood specimen / Unknown Venipuncture / Unknown 08/03/2024 7:00 AM EST 08/03/2024 11:51 AM EST Shavonne Zavaleta SCULLION CHIEF LAB BLOOD ORDERABLES Fi nal Result Performing Organization Address [facility]/ZIP Co de Phone Number [facility] [address] [place] [address], [place] [phone] documented in this encounter Visit Diagnoses Diagnosis Other fpc (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 documented in this encounter
--- OUTSIDE RECORDS SUMMARY | 2024-11-28 16:10 | XMS_ITS | Clinical Summary ---
Author Organization [address] Address [address] [place] [phone] Phone Care Team Providers Care Interpreter Translator Name Role Phone Unavailable Primary Care Provider Unavailabl e Surgical History Surgery Date Site/Laterality Comments KNEE SURGERY 07/27/07 PROCEDURE: HISTORICAL KNEE SURGERY; COMMENT: recurrent left patella dislocation- 5 surgeries Left knee OTHER SURGICAL HISTORY PROCEDURE: [place] CRANIECTOMY/CRANIOTOMY EXC FOREIGN BODY BRAIN; COMMENT: BB [...] Status Comments Brother Alive Healthy Father Alive [place] Maternal Grandfather Lung ca ncer Maternal Grandmother [...] age to complete this topic Meningococcal B Vaccine Aged Out No l onger eligible based on patient's age to complete [...] LDL Routine 08/03/2024 7:00 AM EST Other mcc (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 from Last 3 Months or Most Recently Relevant to Health Maintenance Results * (ABNORMAL) Lipid panel with reflex to direct LDL (08/03/2024 7:00 AM EST) Cholesterol 201(H) 0 - 200 mg/dL LAB CHEMISTRY METHOD 08/03/2024 1:28 PM EST [facility] Triglycerides 185(H) 0 - 150 mg/dL LAB CHEMISTRY METHOD 08/03/2024 1:28 PM EST [facility] HDL 87 >=40 mg/dL LAB CHEMISTRY METHOD 08/03/2024 1:28 PM [facility] LDL Calculated 77 0 - 100 mg/dL LAB CHEMISTRY METHOD 08/03/2024 1:28 PM EST [facility] VLDL Cholesterol Rahul 37 mg/dL LAB CHEMISTRY METHOD 08/03/2024 1:28 PM [facility] Non HDL Chol. (LDL+VLDL) 114 <145 mg/dL LAB CHEMISTRY METHOD 08/03/2024 1:28 PM [facility] Chol/HDL Ratio 2.3 0.0 - 4.4 LAB CHEMISTRY METHOD 08/03/2024 1:28 PM [facility] Blood Venous blood specimen / Unknown Venipuncture / Unknown 08/03/2024 7:00 AM EST 08/03/2024 12:08 PM EST us Shavonne Zavaleta NP LAB BLOOD ORDERABLES Fi nal Result [facility] [address] [place] [address], from Last 3 Months or Most Recently Relevant to Health Maintenance
== END 2024-11-28 14:20 | disposition home or self-care (01) ==
LOC: HO.HOP 13:36
PROVIDERS: PCP Nurse Practitioner Family; Visit Provider Clinical Nurse Specialist Psychiatric/Mental Health
DX: F41.1 Generalized anxiety disorder (principal); F50.00 Anorexia nervosa, unspecified; F33.2 Major depressive disorder, recurrent severe without psychotic features; F43.10 Post-traumatic stress disorder, unspecified; G89.4 Chronic pain syndrome; Z91.51 Personal history of suicidal behavior
CPT/HCPCS: 90833; 99214

== ENCOUNTER → 2024-11-28 13:36 | Outpatient (BNVA) | payer MEDICARE, MEDICAID, SELFPAY | PROVIDERS: PCP Nurse Practitioner Family; Visit Provider Clinical Nurse Specialist Psychiatric/Mental Health | DX: F41.1 Generalized anxiety disorder (principal); F50.00 Anorexia nervosa, unspecified; F33.2 Major depressive disorder, recurrent severe without psychotic features; F43.10 Post-traumatic stress disorder, unspecified; G89.4 Chronic pain syndrome; Z91.51 Personal history of suicidal behavior | CPT/HCPCS: 99212 ==

== ENCOUNTER 2024-12-02 12:22 | Outpatient (AMB) | payer MEDICARE, MEDICAID, SELFPAY ==
--- NOTE | 2024-12-02 12:25 | MHC.PC.OV ---
Vital Signs 12/02/24 12:31 Height 5 ft Weight 91 lb 8 oz BMI 17.9 BP 132/95 H Blood Pressure Location Rt brachial Position Sitting Respiration 16 Pulse 101 H Pulse Source Pulse Oximeter Temp 98.1 F Temp Source Oral Pulse Oximetry (%) 97 Oxygen Delivery Method Room Air Intake Visit Reasons: Chest x-ray f/u Intake Note: patient here for follow up on chest xray. 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 Required: No Is last menstrual period known: Yes Last menstrual period: 10/26/24 Post menopausal: No Patient : No Allergies azithromycin Allergy (Verified 12/02/24 12:54) Itching levofloxacin [From Levaquin] Allergy (Verified 12/02/24 12:54) Nightmare nitrofurantoin [From Macrodantin] Allergy (Verified 12/02/24 12:54) Itching Medication List - Last Reconciled 12/02/24 by Debi Machado CNP acetaminophen 975 mg (3 x 325 mg) PO Q8H albuterol sulfate 90 mcg/actuation 2 puffs inhalation QID PRN 30 days ascorbic acid (vitamin C) (Vitamin C) 1,000 mg PO DAILY 30 days bethanechol chloride 25 mg PO TID 30 days ajmitshnra-tcaamvpgnrbpl-oaek 50-325-40 mg 1 tab PO DAILY PRN cholecalciferol (vitamin D3) 50 mcg PO DAILY hydroxyzine HCl 10 mg orally may take one tablet up to 5 times a day as needed for anxiety at least 2 hours apart; ibuprofen mg PO 3XD lurasidone (Latuda) 60 mg PO DAILY meclizine 25 mg PO DAILY PRN quetiapine (Seroquel) 100 mg PO BEDTIME tamsulosin 0.4 mg PO BEDTIME 30 days Tobacco use date assessed: 12/02/24 Dental Screening Dental Screen Date: 12/02/24 Did you have a dental visit in the last 12 months?: No Did you have a dental problem in the last 6 months where you did not have access to dental care?: No Was dental information given to patient?: No (she already has the list) HPI HPI Comments History of Present Illness Details 39-year-old female presents for anxiety, depression, and review of recent chest x-ray follow-up. She admits to taking her medications as prescribed without adverse reactions. She is followed by [facility] Psychiatry Outpatient Consultation; her next appointment is in 12/26/2024. She notes increased depressive and anxiety symptoms. She is unsure whether Latuda is effective. She reports a painless lump to the middle of her scalp which has been present for the past 2 months and increasing in size. [facility] Medical History (Updated 12/02/24 @ 13:09 by Debi Machado CNP) Anorexia Left wrist injury Scoliosis Swelling Osteoporosis Arthritis Asthma Mood disorder Indwelling Joseph catheter present MDD (major depressive disorder), recurrent severe, without psychosis Sacral nerve stimulator present Rectocele Juvenile osteoporosis Compression fx, lumbar spine History of wrist fracture Myofascial pain syndrome Benzodiazepine dependence Anxiety and depression Surgical History (Updated 08/08/24 @ 14:07 by Ale More MA) History of vaginal surgery History of bladder surgery H/O wrist surgery History of left knee surgery History of right knee surgery History of brain surgery History of placement of ear tubes H/O cystoscopy Family History (Updated 08/08/24 @ 14:02 by Ale More MA) Mother High blood pressure Cardiovascular disease Father Prostate cancer Social History Household Members: Family Household Members Other:: discharged from today, going to med surg post op Housing: House Are you a primary assurance services manager health care to a significant other at home: No Do you presently have visiting nurse or other home services: No Alcohol intake: former Comment: oob with steady gait Patient Tobacco Use Status: Current everyday Tobacco user Tobacco use type: Cigarette Cigarette Packs Per Day: 3 Cigarettes Per Day: 40.0 Years Smoked: Over 20 years e-Cigarette/Vaping Use: Currently Using Second Hand Smoke Exposure: No Substance Use Type: Opiates service: No Current occupational status: disabled Current occupational exposures/hazards: No Sexual orientation: Straight/Heterosexual Cognitive needs: No Hearing needs: No Vision needs: No Female Reproductive History Menstrual Date of last menstrual period: 10/26/24 Questionnaire PHQ-9 Over the last 2 weeks, how often have you been bothered by any of the following problems? 1. Little interest or pleasure in doing things: nearly every day 2. Feeling down, depressed, or hopeless: nearly every day 3. Trouble falling or staying asleep, or sleeping too much: more than half the days 4. Feeling tired or having little energy: nearly every day 5. Poor appetite or overeating: nearly every day 6. Feeling bad about yourself - or that you are a failure or have let yourself or your family down: nearly every day 7. Trouble concentrating on things, such as reading the newspaper or watching television: several days 8. Moving or speaking so slowly that other people could have noticed. Or the opposite - being so fidgety or restless that you have been moving around a lot more than usual: not at all 9. Thoughts that you would be better off or of hurting yourself in some way: more than half the days Total score: 20 Depression Screening Interpretation: Positive Depression Screening Follow-up: Existing condition and In treatment Depression Screening Done: Yes 25978 - PHQ-9 Billing: Yes Source: Developed by Drs. Myles Mccoy, Annalisa Holguin, Jaime Villasenor and colleagues, with an educational iqra from [employer]. Thrive Questionnaire Date Thrive assessed: 09/09/24 I am a: Patient What is your living situation today?: I do not have a steady places to live I choose not to answer this question Within the past 12 months, did the food you bought not last and you didn't have the money to get more?: Never true Within the past 12 months, did you worry whether your food would run out before you got money to buy more?: Never true Do you have trouble paying for medicines?: No Do you have trouble getting transportation to medical appointments?: No Do you have trouble paying your heating and electricity bill?: No Do you have trouble taking care of your child, family member or friend?: No Do you have trouble with day-to-day activities such as bathing, preparing meals, shopping, managing finances, etc.?: No Are you currently unemployed and looking for a job?: No Are you interested in more education?: Yes Please select the resources that you would like help with: Housing/Group Home Currently or been in a relationship where the following occur: I choose not to answer THRIVE Score: 1 ANIBAL-7 AMB Questionnaire ANIBAL-7 Date ANIBAL - 7 assessed: 12/02/24 Feeling nervous, anxious, or on edge: 3 = Nearly every day Not being able to stop or control worryin = Nearly every day Worrying too much about different things: 3 = Nearly every day Trouble relaxin = Nearly every day Being so restless that it is hard to sit still: 2 = More than half the days Becoming easily annoyed or irritable: 3 = Nearly every day Feeling afraid as if something awful might happen: 1 = Several days Total ANIBAL-7 score (0-4 normal; 5-9 mild; 10-14 moderate; 15-21 severe): 18 Source: Developed by Drs. Myles Mccoy, Annalisa Holguin, Jaime Villasenor and colleagues, with an educational iqra from [employer]. ANIBAL-7 Assessment Billing ANIBAL-7 Assessment Tool: ANIBAL-7 Assessment 99063 Review of Systems Const Details: Const Denies chills, Denies fatigue, Denies fever(s), Denies headache(s) and Denies weakness ENT Denies dizziness and Denies headache(s) Card Denies chest pain, Denies lightheadedness, Denies dyspnea and Denies other (Palpitations) Resp Denies cough, Denies dyspnea, Denies wheezing and Denies other ( shortness of breath) GI Denies abdominal pain, Denies melena, Denies hematochezia, Denies change in bowel habits, Denies dyspepsia and Denies nausea Denies hematuria and Denies dysuria Musc Denies abnormal gait, Denies myalgias, Denies arthralgias, Denies numbness and Denies tingling Skin/Breast Reports as per HPI Neuro Denies abnormal gait, Denies dizziness, Denies headache(s), Denies memory loss, Denies numbness, Denies Sensory deficit (Neuro), Denies tingling and Denies weakness Psych Reports anxiety, Reports depression, Denies memory loss Endo Denies cold intolerance, Denies fatigue, Denies heat intolerance, Denies polydipsia and Denies polyuria Aller/Immun Denies wheezing Physical exam (Primary Care) Vital Signs: Last Vital Signs Temp 98.1 F 12/02/24 12:31 Pulse 101 H 12/02/24 12:31 Resp 16 12/02/24 12:31 BP 132/95 H 12/02/24 12:31 Pulse Ox 97 12/02/24 12:31 Oxygen Delivery Method Room Air 12/02/24 12:31 BMI result Body Mass Index 17.9 Tobacco/Smoking Status: Tobacco use Status Tobacco use date assessed 12/02/24 12/02/24 12:34 Patient Tobacco Use Status Current everyday Tobacco 12/02/24 12:28 Tobacco use type Cigarette 12/02/24 12:28 e-Cigarette/Vaping Use Currently Using 12/02/24 12:28 PHQ-9: PHQ-9 Score PHQ-9: Total score 20 12/02/24 13:19 Depression Screening Interpretation: Positive Depression Screening Follow-up: Existing condition and In treatment Thrive Assessment: Date of Thrive Assessment Date Thrive assessed 09/09/24 12/02/24 12:28 Currently or been in a relationship where the following occur: I choose not to answer Const Other: General: no acute distress and well developed Nutritional Appearance: well nourished Orientation/consciousness: patient oriented x3 HENMT Head: Yes normocephalic and Yes atraumatic Eyes General: appearance normal, both eyes and all related structures Pupils: Equal, round and reactive pupils present EOM: EOMs intact bilaterally Resp Effort & Inspection: normal respiratory effort Auscultation: clear to auscultation bilaterally Cardio Rate: regular rate Rhythm: regular rhythm Heart sounds: S1 normal heart sound present, S2 normal heart sound present, no gallops, no murmurs and no rubs GI Palpation (GI): No Abdominal aortic bruit present, Soft to palpation, nontender, No hepatosplenomegaly present and No Rebound tenderness present Auscultation: normal bowel sounds General: Yes no CVA tenderness Back/Spine/Pelvis Back: no CVA tenderness Cervical Spine: cervical ROM normal and No Cervical spine tenderness Thoracic/Lumbar Spine: thoraco-lumbar ROM normal, No pain with thoraco-lumbar ROM, No thoracic spinal tenderness and No lumbar spinal tenderness Extrem General: Yes normal to inspection, No edema and No calf tenderness Skin General: warm and dry. Normal skin color. Normal skin turgor Lesions: Pea-sized, forearm, painless lump to the parietal region of the scalp. No overt infection Rashes: no rashes Trauma: no lacerations or abrasions Wounds: no wounds Nails: normal Neuro General: patient oriented x3, gait normal and no focal neuro deficit Cranial nerves: Yes Equal, round and reactive pupils present Cognition (Neuro): normal cognition Gait exam (Neuro): Normal gait present Sensory Exam: No Sensory deficit (Neuro) Psych Appearance: grossly normal Affect: normal affect Attitude: cooperative Thought process: Normal thought process present Coding Level of Care Code Est Pt Level 4 (26296) Diagnoses ANIBAL (generalized anxiety disorder) F41.1 MDD (major depressive disorder), recurrent severe, without psychosis F33.2 Skin lesion L98.9 Additional Codes ANIBAL-7 Assessment Billing - ANIBAL-7 Assessment Tool: ANIBAL-7 Assessment 29928 ([id number]) PHQ-9 - 40436 - PHQ-9 Billing: Yes ([id number]) Assessment & Plan Assessment & Plan (1) ANIBAL (generalized anxiety disorder): Code(s): F41.1 - Generalized anxiety disorder Category: Medical Plan: Reports increased anxiety and depressive symptoms. She notes passive SI with no plan. No HI or AVH. PHQ-9 and ANIBAL-7 scores revealed severe depression and anxiety. Continue current treatment regimen. Continue follow-up with [facility] Psychiatry Outpatient Consultation. Call the crisis line as needed. Follow-up for an extended physical exam later this year. Return sooner with symptoms or concerns. Verbalized understanding and agreed with treatment plan. Recent chest x-ray results reviewed with the patient. (2) MDD (major depressive disorder), recurrent severe, without psychosis: Code(s): F33.2 - Major depressive disorder, recurrent severe without psychotic features Category: Medical Plan: Plan as above. (3) Skin lesion: Code(s): L98.9 - Disorder of the skin and subcutaneous tissue, unspecified Category: Medical Plan: Pea-sized, forearm, painless lump to the parietal region of the scalp. No overt infection. Ultrasound ordered. Orders: Orders US soft tiss head and/or neck Today L98.9 - Disorder of the skin and subcutaneous tissue, unspecified
[2024-12-02 12:31] VITALS: BP 132/95; PULSE 101; RESP 16; TEMP 36.7; O2SAT 97; BMI 17.9
--- OUTSIDE RECORDS SUMMARY | 2024-12-02 13:05 | XMS_ITS | Encounter Summary ---
Author Organization [facility] Address [address] [place] [address] Care Team Providers Care Pump House Operator Name Role Phone Unavailable Primary Care Provider Unavailabl e Encounter Details Date Type Department Care Team (Late st Contact Info) Description 08/03/2024 Lab Requisition [facility] - Main Lab [address] [facility] [place] [address] Shavonne Zavaleta, MAGDA [address] [place] [address] Other fpc (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 [...] LDL Routine 08/03/2024 7:00 AM EST Other fpc (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 HEMOGLOBIN A1C Routine 08/03/2024 7:00 AM EST Other fpc (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 LITHIUM LEVEL Routine 08/03/2024 7:00 AM EST Other fpc (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 documented in this encounter Results * (ABNORMAL) [place] level (08/03/2024 7:00 AM EST) [place] Level 0.5(L) 0.6 - 1.2 mEq/L LAB CHEMISTRY METHOD 08/03/2024 1:31 PM EST [facility] Blood Venous blood specimen / Unknown Venipuncture / Unknown 08/03/2024 7:00 AM EST 08/03/2024 12:08 PM EST us Shavonne Zavaleta TECHNOLOGY ARCHITECT LAB BLOOD ORDERABLES Fi nal Result [facility] [address] [place] [address], [place] [phone] * (ABNORMAL) Lipid panel with reflex to direct LDL (08/03/2024 7:00 AM EST) Cholesterol 201(H) 0 - 200 mg/dL LAB CHEMISTRY METHOD 08/03/2024 1:28 PM [facility] Triglycerides 185(H) 0 - 150 mg/dL LAB CHEMISTRY METHOD 08/03/2024 1:28 PM [facility] HDL 87 >=40 mg/dL LAB CHEMISTRY METHOD 08/03/2024 1:28 PM [facility] LDL Calculated 77 0 - 100 mg/dL LAB CHEMISTRY METHOD 08/03/2024 1:28 PM [facility] VLDL Cholesterol Rahul 37 mg/dL LAB CHEMISTRY METHOD 08/03/2024 1:28 PM EST [facility] Non HDL Chol. (LDL+VLDL) 114 <145 mg/dL LAB CHEMISTRY METHOD 08/03/2024 1:28 PM [facility] Chol/HDL Ratio 2.3 0.0 - 4.4 LAB CHEMISTRY METHOD 08/03/2024 1:28 PM [facility] Blood Venous blood specimen / Unknown Venipuncture / Unknown 08/03/2024 7:00 AM EST 08/03/2024 12:08 PM EST us Shavonnecassius Zavaleta TECHNOLOGY ARCHITECT LAB BLOOD ORDERABLES Fi nal Result Performing Organization Address City/[facility]/ZIP Co de Phone Number [facility] [address] [place] [address], [place] [phone] * Hemoglobin A1c (08/03/2024 7:00 AM EST) Hemoglobin A1C 4.7 <6.5 % LAB CHEMISTRY METHOD 08/03/2024 1:35 PM EST [facility] Mean Bld Glu Estim. 88 mg/dL LAB CHEMISTRY METHOD 08/03/2024 1:35 PM EST [facility] Blood Venous blood specimen / Unknown Venipuncture / Unknown 08/03/2024 7:00 AM EST 08/03/2024 11:51 AM EST Shavonne Zavaleta TECHNOLOGY ARCHITECT LAB BLOOD ORDERABLES Fi nal Result Performing Organization Address [facility]/ZIP Co de Phone Number [facility] [address] [place] [address], [place] [phone] documented in this encounter Visit Diagnoses Diagnosis Other fpc (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 documented in this encounter
--- OUTSIDE RECORDS SUMMARY | 2024-12-02 13:05 | XMS_ITS | Encounter Summary ---
Author Organization [facility] Address [address] [place] [address] Care Team Providers Care Personnel Associate Name Role Phone Unavailable Primary Care Provider Unavailabl e Encounter Details Date Type Department Care Team (Late st Contact Info) Description 08/10/2024 Lab Requisition [facility] - Main Lab [address] [facility] [place] [address] Shavonne Zavaleta, MAGDA [address] [place] [address] Social History Tobacco Use Types [...] to direct LDL Lab Routine Ordered: 024 [place] level Lab Routine Ordered: Hemoglobin A1c Lab Routine Ordered: 1 10/11/2023 documented as of this encounter Visit Diagnoses Not on filedocumented in this encounter
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
== END 2024-12-02 14:58 | disposition home or self-care (01) ==
LOC: HO.HMCFM 12:23
PROVIDERS: PCP Nurse Practitioner Family; Visit Provider Nurse Practitioner Family
DX: F41.1 Generalized anxiety disorder (principal); F33.2 Major depressive disorder, recurrent severe without psychotic features; L98.9 Disorder of the skin and subcutaneous tissue, unspecified

== ENCOUNTER → 2024-12-02 12:22 | Outpatient (BNVA) | payer MEDICARE, MEDICAID, SELFPAY | PROVIDERS: PCP Nurse Practitioner Family; Visit Provider Nurse Practitioner Family | DX: F41.1 Generalized anxiety disorder (principal); F33.2 Major depressive disorder, recurrent severe without psychotic features; F17.210 Nicotine dependence, cigarettes, uncomplicated; L98.9 Disorder of the skin and subcutaneous tissue, unspecified | CPT/HCPCS: 96127; 99212 ==

== ENCOUNTER 2024-12-26 13:30 | Outpatient (AMB) | payer MEDICARE, MEDICAID, SELFPAY ==
--- NOTE | 2024-12-26 13:41 | MHC.OFFVISPS ---
Intake Intake Visit Reasons: f/u consultation Panel Gluer Required: No Allergies azithromycin Allergy (Verified 12/02/24 12:54) Itching levofloxacin [From Levaquin] Allergy (Verified 12/02/24 12:54) Nightmare nitrofurantoin [From Macrodantin] Allergy (Verified 12/02/24 12:54) Itching Medication List - Last Reconciled 12/26/24 by Barbi Rivera, SANA acetaminophen 975 mg (3 x 325 mg) PO Q8H albuterol sulfate 90 mcg/actuation 2 puffs inhalation QID PRN 30 days ascorbic acid (vitamin C) (Vitamin C) 1,000 mg PO DAILY 30 days bethanechol chloride 25 mg PO TID 30 days bxepezaxru-htqtdjaacakun-ggit 50-325-40 mg 1 tab PO DAILY PRN cholecalciferol (vitamin D3) 50 mcg PO DAILY hydroxyzine HCl 10 mg orally may take one tablet up to 5 times a day as needed for anxiety at least 2 hours apart; ibuprofen mg PO 3XD lurasidone (Latuda) 60 mg PO DAILY meclizine 25 mg PO DAILY PRN quetiapine (Seroquel) 100 mg PO BEDTIME tamsulosin 0.4 mg PO BEDTIME 30 days HPI- Psychiatric Chief Complaint: f/u consultation HPI Narrative: pt reports increased depression and apathy. She reports passive SI with no plan or intent. She is struggling with eating disorder symptoms; she feels fat at 90# and 5' . she feels very negatively about her body. she reports eating only 250 calories a day and then she sometimes vomits that. She is taking seroqule 150mg at night bedcause she couldn't sleep with 100mg. She reports high anxiety and wants to retart clonidine. We discussed PHP but patient says it was not helpful in past and she does not want to go. She reports she just started with a new therapist at [facility] named Lul (did not know his last name) Past Psychiatric History: 2x 10/04/24-10/06/24 for overdose and again 10/11/24 - 10/18/24 [facility] 10/18-11/03/24 Hospitalized October 2024 at [place] Hospitalized x2 in 2023 at [place] [facility] at [place] [facility] primarily for eating disorder at age 18. Patient reports multiple hospitalizations for severe low weight and protein in her urine but these hospitalizations were on medical units. In 2021 the patient was in [facility] Emergency room and seen by AB and crisis after she was found wandering the streets she was expressing paranoid ideation stating that her family was trying to poison her she also reported at that time hearing evil voices that are head she reports she was talking to Kade and making statements I am and I am dying they are trying to kill me Subjective Subjective Subjective Medication Compliance: Yes Side effects from medications: No Review of Systems Medical Review of Systems: unchanged Mental Status Exam Mental Status Exam Patient Appearance: Appropriate Patient Orientation: Person, Place, Time and Situation Level of Consciousness: Awake and Appropriate Patient Behavior: Appropriate, Cooperative and Anxious Mood Description: Anxious and Sad Affect Description: Anxious and Sad Patient Cognition Impaired: No Ability to Follow Directions: Good Speech Pattern: Clear, Appropriate and Soft-Spoken Memory Description: Intact Hallucinations: None Delusions: Not Present Thought Process: Rumination Thought Content: positive for Preoccupation Judgement: Fair Assessment and Plan Assessment & Plan (1) ANIBAL (generalized anxiety disorder): Status: Acute Code(s): F41.1 - Generalized anxiety disorder (2) Malnutrition: Status: Acute Qualifiers: Malnutrition type: protein-calorie malnutrition Protein-calorie malnutrition severity: mild Qualified Code(s): E44.1 - Mild protein-calorie malnutrition Code(s): E46 - Unspecified protein-calorie malnutrition (3) Anorexia nervosa: Status: Acute Code(s): F50.00 - Anorexia nervosa, unspecified (4) MDD (major depressive disorder), recurrent severe, without psychosis: Status: Acute Code(s): F33.2 - Major depressive disorder, recurrent severe without psychotic features (5) PTSD (post-traumatic stress disorder): Status: Acute Code(s): F43.10 - Post-traumatic stress disorder, unspecified Plan take meds as per below follow up with PCP and urology tomorrow return in 4 weeks for follow continue therapy consider PHP for more support Medications: New clonidine HCl 0.1 mg PO DAILY PRN 30 tabs 0RF anxiety Changed From quetiapine (Seroquel) 100 mg PO BEDTIME 14 tabs 2RF To quetiapine (Seroquel) 150 mg (1.5 x 100 mg) PO BEDTIME 14 tabs 2RF Refilled lurasidone (Latuda) must administer with food (at least 350 calories) 60 mg PO DAILY 14 tabs 2RF hydroxyzine HCl 10 mg orally may take one tablet up to 5 times a day as needed for anxiety at least 2 hours apart; 40 tabs 2RF Counseling and coordination of Care Pt. Self Management counseling: Nutrition education and improvement, Behavior activation, Cognitive restructuring and General coping skills Medication management counseling: Effectiveness, Side effects, Dosing range, Duration, Drug interaction and Adherence Diagnosis and Prognosis Counseling: Accuracy of diagnosis, Prognosis over time, Impact of diagnosis on life functions, Impact of family relationship, Problematic behaviors secondary to diagnosis, Adequacy of current interventions and Other (encouraged need for continued therpapy and cognitive restructuring with concious effort on her part/practice ) Details: I spent 40 minutes reviewing the record, seeing the patient and documenting in the medical record. Counseling provided to the patient/caregiver as outlined below. Addressed patient/caregiver concerns regarding current medication regime including effective adherence. Addressed patient/caregiver concerns regarding diagnosis and prognosis including accuracy of diagnosis, prognosis over time, impact of diagnosis. Addressed patient/caregiver concerns regarding impact of recent stressors. [facility] Medical History (Updated 12/02/24 @ 13:09 by Debi Machado CNP) Anorexia Left wrist injury Scoliosis Swelling Osteoporosis Arthritis Asthma Mood disorder Indwelling Joseph catheter present MDD (major depressive disorder), recurrent severe, without psychosis Sacral nerve stimulator present Rectocele Juvenile osteoporosis Compression fx, lumbar spine History of wrist fracture Myofascial pain syndrome Benzodiazepine dependence Anxiety and depression Surgical History (Updated 08/08/24 @ 14:07 by Ale More MA) History of vaginal surgery History of bladder surgery H/O wrist surgery History of left knee surgery History of right knee surgery History of brain surgery History of placement of ear tubes H/O cystoscopy Family History (Updated 08/08/24 @ 14:02 by Ale More MA) Mother High blood pressure Cardiovascular disease Father Prostate cancer Social History Household Members: Family Household Members Other:: discharged from today, going to med surg post op Housing: House Are you a primary health care aide to a significant other at home: No Do you presently have visiting nurse or other home services: No Alcohol intake: former Comment: oob with steady gait Patient Tobacco Use Status: Current everyday Tobacco user Tobacco use type: Cigarette Cigarette Packs Per Day: 3 Cigarettes Per Day: 40.0 Years Smoked: Over 20 years e-Cigarette/Vaping Use: Currently Using Second Hand Smoke Exposure: No Substance Use Type: Opiates service: No Current occupational status: disabled Current occupational exposures/hazards: No Sexual orientation: Straight/Heterosexual Cognitive needs: No Hearing needs: No Vision needs: No Social History: Patient reports she did have friends growing up and she was straight a student until she left school at the age of 16 due to anorexia she had to drop out of school due to multiple admissions at [facility] she is socially isolated currently Substance History: denies any hx Trauma History: hx of trauma in addition to Multiple surgeries Coding Level of Care Code Est Pt Level 4 (62315) Diagnoses ANIBAL (generalized anxiety disorder) F41.1 Mild protein-calorie malnutrition E44.1 Malnutrition type: protein-calorie malnutrition Protein-calorie malnutrition severity: mild Anorexia nervosa F50.00 MDD (major depressive disorder), recurrent severe, without psychosis F33.2 PTSD (post-traumatic stress disorder) F43.10
--- OUTSIDE RECORDS SUMMARY | 2024-12-26 14:55 | XMS_ITS | Clinical Summary ---
Author Organization [address] Address [address] [place] [phone] Phone Care Team Providers Care Freelance Displayer Name Role Phone Unavailable Primary Care Provider Unavailabl e Surgical History Surgery Date Site/Laterality Comments KNEE SURGERY 07/27/07 PROCEDURE: HISTORICAL KNEE SURGERY; COMMENT: recurrent left patella dislocation- 5 surgeries Left knee OTHER SURGICAL HISTORY PROCEDURE: [place] CRANIECTOMY/CRANIOTOMY EXC FOREIGN BODY BRAIN; COMMENT: BB removed - age 3 WRIST SURGERY Left PROCEDURE: HISTORICAL WRIST SURGERY; COMMENT: Multiple wrist surgeries with Dr. 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 Osteogenesis imperfecta 1998 DX:Osteo mary imperfecta Family History Relation Name Status Comments Brother Alive Healthy Father Alive ND Maternal Grandfather Lung ca ncer Maternal Grandmother [...] EST Other skilled nursing (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 from Last 3 Months or Most Recently Relevant to Health Maintenance Results * (ABNORMAL) Lipid panel with reflex to direct LDL (08/03/2024 7:00 AM EST) Cholesterol 201(H) 0 - 200 mg/dL LAB CHEMISTRY METHOD 08/03/2024 1:28 PM EST [facility] Triglycerides 185(H) 0 - 150 mg/dL LAB CHEMISTRY METHOD 08/03/2024 1:28 PM [facility] HDL 87 >=40 mg/dL LAB CHEMISTRY METHOD 08/03/2024 1:28 PM [facility] LDL Calculated 77 0 - 100 mg/dL LAB CHEMISTRY METHOD 08/03/2024 1:28 PM EST [facility] VLDL Cholesterol Rahul 37 mg/dL LAB CHEMISTRY METHOD 08/03/2024 1:28 PM EST [facility] Non HDL Chol. (LDL+VLDL) 114 <145 mg/dL LAB CHEMISTRY METHOD 08/03/2024 1:28 PM [facility] Chol/HDL Ratio 2.3 0.0 - 4.4 LAB CHEMISTRY METHOD 08/03/2024 1:28 PM EST [facility] Blood Venous blood specimen / Unknown Venipuncture / Unknown 08/03/2024 7:00 AM EST 08/03/2024 12:08 PM EST us Shavonne Zavaleta NP LAB BLOOD ORDERABLES Fi nal Result [facility] [address] [place] [address], from Last 3 Months or Most Recently Relevant to Health Maintenance
--- OUTSIDE RECORDS SUMMARY | 2024-12-26 14:55 | XMS_ITS | Encounter Summary ---
Author Organization [facility] Address [address] [place] [address] Care Team Providers Care Wagon Driver Name Role Phone Unavailable Primary Care Provider Unavailabl e Encounter Details Date Type Department Care Team (Late st Contact Info) Description 08/10/2024 Lab Requisition [facility] - Main Lab [address] [facility] [place] [address] Shavonne Zavaleta, MAGDA [address] [place] [address] Social History Tobacco Use Types [...] to direct LDL Lab Routine Ordered: [address] [place] level Lab Routine Ordered: Hemoglobin A1c Lab Routine Ordered: 1 10/11/2023 documented as of this encounter Visit Diagnoses Not on filedocumented in this encounter
--- OUTSIDE RECORDS SUMMARY | 2024-12-26 14:55 | XMS_ITS | Encounter Summary ---
Author Organization [facility] Address [address] [place] [address] Care Team Providers Care Cargo Trimmer Name Role Phone Unavailable Primary Care Provider Unavailabl e Encounter Details Date Type Department Care Team (Late st Contact Info) Description 08/03/2024 Lab Requisition [facility] - Main Lab [address] [facility] [place] [address] Shavonne Zavaleta, MAGDA [address] [place] [address] Other termite renewal inspector (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 Social History Tobacco Use [...] LDL Routine 08/03/2024 7:00 AM EST Other shelter (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 HEMOGLOBIN A1C Routine 08/03/2024 7:00 AM EST Other shelter (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 LITHIUM LEVEL Routine 08/03/2024 7:00 AM EST Other termite renewal inspector (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 documented in this encounter Results * (ABNORMAL) [place] level (08/03/2024 7:00 AM EST) [place] Level 0.5(L) 0.6 - 1.2 mEq/L LAB CHEMISTRY METHOD 08/03/2024 1:31 PM EST [facility] Blood Venous blood specimen / Unknown Venipuncture / Unknown 08/03/2024 7:00 AM EST 08/03/2024 12:08 PM EST us Shavonne Zavaleta SUGAR CANE PLANTING EQUIPMENT OPERATOR LAB BLOOD ORDERABLES Fi nal Result [facility] [address] [place] [address], [place] [phone] * (ABNORMAL) Lipid panel with reflex to [...] LAB CHEMISTRY METHOD 08/03/2024 1:28 PM EST [facility] Non HDL Chol. (LDL+VLDL) 114 <145 mg/dL LAB CHEMISTRY METHOD 08/03/2024 1:[address] [facility] Chol/HDL Ratio 2.3 0.0 - 4.4 LAB CHEMISTRY METHOD 08/03/2024 1:[address] [facility] Blood Venous blood specimen / Unknown Venipuncture / Unknown 08/03/2024 7:00 AM EST 08/03/2024 12:08 PM EST us Shavonnecassius Zavaleta SUGAR CANE PLANTING EQUIPMENT OPERATOR LAB BLOOD ORDERABLES Fi nal Result Performing Organization Address City/[facility]/ZIP Co de Phone Number [facility] [address] [place] [address], [place] [phone] * Hemoglobin A1c (08/03/2024 7:00 AM EST) Hemoglobin A1C 4.7 <6.5 % LAB CHEMISTRY METHOD 08/03/2024 1:35 PM EST [facility] Mean Bld Glu Estim. 88 mg/dL LAB CHEMISTRY METHOD 08/03/2024 1:35 PM EST [facility] Blood Venous blood specimen / Unknown Venipuncture / Unknown 08/03/2024 7:00 AM EST 08/03/2024 11:51 AM EST Shavonne Zavaleta SUGAR [employer]E PLANTING EQUIPMENT OPERATOR LAB BLOOD ORDERABLES Fi nal Result Performing Organization Address [facility]/ZIP Co de Phone Number [facility] [address] [place] [address], [place] [phone] documented in this encounter Visit Diagnoses Diagnosis Other termite renewal inspector (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 documented in this encounter
== END 2024-12-26 14:37 | disposition home or self-care (01) ==
LOC: HO.HOP 13:30
PROVIDERS: PCP Nurse Practitioner Family; Visit Provider Clinical Nurse Specialist Psychiatric/Mental Health
DX: F41.1 Generalized anxiety disorder (principal); E44.1 Mild protein-calorie malnutrition; F50.00 Anorexia nervosa, unspecified; F33.2 Major depressive disorder, recurrent severe without psychotic features; F43.10 Post-traumatic stress disorder, unspecified
CPT/HCPCS: 99214

== ENCOUNTER → 2024-12-26 13:30 | Outpatient (BNVA) | payer MEDICARE, MEDICAID, SELFPAY | PROVIDERS: PCP Nurse Practitioner Family; Visit Provider Clinical Nurse Specialist Psychiatric/Mental Health | DX: F41.1 Generalized anxiety disorder (principal); F50.00 Anorexia nervosa, unspecified; F33.2 Major depressive disorder, recurrent severe without psychotic features; F43.10 Post-traumatic stress disorder, unspecified; E44.1 Mild protein-calorie malnutrition; E46 Unspecified protein-calorie malnutrition; Z71.89 Other specified counseling | CPT/HCPCS: 99212 ==

== ENCOUNTER 2024-12-27 09:34 | Outpatient (AMB) | payer MEDICARE, MEDICAID, SELFPAY ==
--- NOTE | 2024-12-27 09:39 | MHC.OFFVIS ---
Intake Visit Reasons: Interstim follow up Intake Note: Patient presents today for interstim follow up Urology Medication:Tamsulosin Blood Thinner:None Antibiotic Allergies:Azithromycin, Levofloxacin, Nitrofurantoin PVR:0ml Allergies azithromycin Allergy (Verified 12/27/24 13:36) Itching levofloxacin (From Levaquin) Allergy (Verified 12/27/24 13:36) Nightmare nitrofurantoin (From Macrodantin) Allergy (Verified 12/27/24 13:36) Itching HPI Comments Details: 12/27/24--Joselin is a 39-year-old female who I initially evaluated as an inpatient due to urinary retention. History of Jennifer Danlos syndrome, osteogenesis imperfecta, myofascial pain syndrome, migraines, juvenile osteoporosis, asthma, and mood disorder with history of rectocele, H/o pelvic surgery with vaginal mesh. s/p sacral interstim pacemaker, bilateral lead placement on 07/05/24 and on 07/26/24?Stage II Generator/Pacemaker Implant on left with removal of right lead due to distal lead migration. The patient reports that she spontaneusly voids about one a week, and otherwise does CIC about 4 times a day. She reports a ? zapping sensations extending to her legs, leading to discomfort. These symptoms emerge despite efforts to modify or deactivate the device. The patient confirms localized pain over the pacemaker site but also admits to generalized pain due to history of myofascial pain syndrome. Persisting urinary retention is observed, necessitating catheterization four to five times daily, with rare spontaneous micturition once a week, driven by abdominal fullness. Outpatient psychiatric evaluation is ongoing, with monthly consultations in place for mental wellness post-hospitalization. Urinary Symptoms Review - Rare spontaneous urination, approximately once a week - Routine catheterization, four to five times daily - Sensation of fullness and abdominal pressure prompting urination - Absence of pain associated with urination Discussion Notes During the appointment, I discussed with the patient the current issues associated with her neuromodulator, specifically addressing the pain and abnormal sensations. I proposed evaluating the device settings to alleviate these symptoms. Additionally, I suggested an x-ray to ensure the lead placement remains optimal, as its migration could account for the current symptoms. We considered providing more convenient catheter options to aid her with urinary catheterization at home. The patient consented to the x-ray procedure planned to assess lead position in the neuromodulator, to better understand and rectify the situation. [facility] Medical History Anorexia Left wrist injury Scoliosis Swelling Osteoporosis Arthritis Asthma Mood disorder Indwelling Joseph catheter present MDD (major depressive disorder), recurrent severe, without psychosis Sacral nerve stimulator present Rectocele Juvenile osteoporosis Compression fx, lumbar spine History of wrist fracture Myofascial pain syndrome Benzodiazepine dependence Anxiety and depression Surgical History History of vaginal surgery History of bladder surgery H/O wrist surgery History of left knee surgery History of right knee surgery History of brain surgery History of placement of ear tubes H/O cystoscopy Family History Mother High blood pressure Cardiovascular disease Father Prostate cancer Social History (Updated 12/27/24 @ 13:05 by Kylie Woodard MA) Household Members: Family Household Members Other:: discharged from today, going to med surg post op Housing: House Are you a primary health care / medical job titles to a significant other at home: No Do you presently have visiting nurse or other home services: No Alcohol intake: former Comment: oob with steady gait Patient Tobacco Use Status: Current everyday Tobacco user Tobacco use type: Cigarette Cigarette Packs Per Day: 3 Cigarettes Per Day: 40.0 Years Smoked: Over 20 years e-Cigarette/Vaping Use: Currently Using Second Hand Smoke Exposure: No Substance Use Type: Opiates service: No Current occupational status: disabled Current occupational exposures/hazards: No Sexual orientation: Straight/Heterosexual Cognitive needs: No Hearing needs: No Vision needs: No Review of Systems Const All systems reviewed & are unremarkable except as noted in HPI and below Reports no additional complaints Eyes Reports no additional complaints ENT Reports no additional complaints Card Reports no additional complaints Resp Reports no additional complaints GI Reports no additional complaints Reports as per HPI Musc Reports no additional complaints Skin/Breast Reports system reviewed and no additional complaints, except as documented Neuro Reports no additional complaints Psych Reports no additional complaints Endo Reports no additional complaints Robbie/Lymph Reports no additional complaints Aller/Immun Reports no additional complaints Office Procedures Post Void Residual Post Residual Void Post Void Residual (PVR): 0 [id number] Void Residual by ultrasound Assessment & Plan Assessment & Plan (1) Pacemaker reprogramming/check: Code(s): Z45.018 - Encounter for adjustment and management of other part of cardiac pacemaker Category: Medical (2) Voiding dysfunction: Code(s): N39.8 - Other specified disorders of urinary system Category: Medical (3) Urinary retention: Code(s): R33.9 - Retention of urine, unspecified Category: Medical (4) Jennifer-Danlos disease: Code(s): 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 An x-ray is arranged to ensure proper lead placement, addressing a possible cause for symptom disruption. Cont CIC. Will arrange for catheter to be sent to her home Orders: Orders XR sacrum coccyx min 2V 12/28/24 Z95.0 - Presence of cardiac pacemaker XR lumbar spine 1V 12/28/24 Z95.0 - Presence of cardiac pacemaker Patient Instructions: The patient had an opportunity to ask questions regarding treatment plan. The patient expressed understanding and agreement with the above treatment plan. The patient is aware they should contact our office by phone for worsening of their current condition or the appearance of new symptoms. Compliance is encouraged with any medications and followup testing that is ordered. It is a privilege to be allowed the opportunity to participate in the urologic care of your patient. If you have any questions or concerns regarding treatment for the above conditions please do not hesitate to contact me. The office telephone contact is [phone]. This note is constructed in part using voice recognition software. While every effort has been made to ensure accuracy sales and merchandising associate errors may have been included. Yours sincerely, Agata Conner MD Scribe Plan - Not visible on output: Patient was informed and verbally consented to the use of an ambient scribe for clinic note documentation during this visit. Coding Level of Care Code Est Pt Level 4 (26147) Complex EM visit Add On G2211 Diagnoses Pacemaker reprogramming/check Z45.018 Voiding dysfunction N39.8 Urinary retention R33.9 Jennifer-Danlos disease Q79.60 CPT Codes Post Residual Void - PVR CPT Code: 52213-Mopq Void Residual by ultrasound ([id number])
--- OUTSIDE RECORDS SUMMARY | 2024-12-27 10:32 | XMS_ITS | Encounter Summary ---
Author Organization [facility] Address [address] [place] [address] Care Team Providers Care Area Loss Prevention Manager Name Role Phone Unavailable Primary Care Provider Unavailabl e Encounter Details Date Type Department Care Team (Late st Contact Info) Description 08/03/2024 Lab Requisition [facility] - Main Lab [address] [facility] [place] [address] Shavonne Zavaleta, MAGDA [address] [place] [address] Other ferry terminal agent (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 Social History Tobacco Use [...] LDL Routine 08/03/2024 7:00 AM EST Other assisted (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 HEMOGLOBIN A1C Routine 08/03/2024 7:00 AM EST Other assisted (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 LITHIUM LEVEL Routine 08/03/2024 7:00 AM EST Other ferry terminal agent (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 documented in this encounter Results * (ABNORMAL) [place] level (08/03/2024 7:00 AM EST) [place] Level 0.5(L) 0.6 - 1.2 mEq/L LAB CHEMISTRY METHOD 08/03/2024 1:[address] [facility] Blood Venous blood specimen / Unknown Venipuncture / Unknown 08/03/2024 7:00 AM EST 08/03/2024 12:08 PM EST us Shavonne Zavaleta SHAPING MACHINE TENDER LAB BLOOD ORDERABLES Fi nal Result [facility] [address] [place] [address], [place] [phone] * (ABNORMAL) Lipid panel with reflex to direct LDL (08/03/2024 7:00 AM EST) Cholesterol 201(H) 0 - 200 mg/dL LAB CHEMISTRY METHOD 08/03/2024 1:28 PM [facility] Triglycerides 185(H) 0 - 150 mg/dL LAB CHEMISTRY METHOD 08/03/2024 1:28 PM [facility] HDL 87 >=40 mg/dL LAB CHEMISTRY METHOD 08/03/2024 1:28 PM [facility] LDL Calculated 77 0 - 100 mg/dL LAB CHEMISTRY METHOD 08/03/2024 1:28 PM [facility] VLDL Cholesterol Rahul 37 mg/dL LAB CHEMISTRY METHOD 08/03/2024 1:[address] [facility] Non HDL Chol. (LDL+VLDL) 114 <145 mg/dL LAB CHEMISTRY METHOD 08/03/2024 1:28 PM [facility] Chol/HDL Ratio 2.3 0.0 - 4.4 LAB CHEMISTRY METHOD 08/03/2024 1:28 PM [facility] Blood Venous blood specimen / Unknown Venipuncture / Unknown 08/03/2024 7:00 AM EST 08/03/2024 12:08 PM EST us Shavonnecassius Zavaleta SHAPING MACHINE TENDER LAB BLOOD ORDERABLES Fi nal Result Performing Organization Address City/[facility]/ZIP Co de Phone Number [facility] [address] [place] [address], [place] [phone] * Hemoglobin A1c (08/03/2024 7:00 AM EST) Hemoglobin A1C 4.7 <6.5 % LAB CHEMISTRY METHOD 08/03/2024 1:[address] [facility] Mean Bld Glu Estim. 88 mg/dL LAB CHEMISTRY METHOD 08/03/2024 1:[address] [facility] Blood Venous blood specimen / Unknown Venipuncture / Unknown 08/03/2024 7:00 AM EST 08/03/2024 11:51 AM EST Shavonne Zavaleta SHAPING MACHINE TENDER LAB BLOOD ORDERABLES Fi nal Result Performing Organization Address [facility]/ZIP Co de Phone Number [facility] [address] [place] [address], [place] [phone] documented in this encounter Visit Diagnoses Diagnosis Other ferry terminal agent (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 documented in this encounter
--- OUTSIDE RECORDS SUMMARY | 2024-12-27 10:32 | XMS_ITS | Encounter Summary ---
Author Organization [facility] Address [address] [place] [address] Care Team Providers Care Regional Planner Name Role Phone Unavailable Primary Care Provider Unavailabl e Encounter Details Date Type Department Care Team (Late st Contact Info) Description 08/10/2024 Lab Requisition [facility] - Main Lab [address] [facility] [place] [address] Shavonne Zavaleta, MAGDA [address] [place] [address] Social History Tobacco Use Types [...] to direct LDL Lab Routine Ordered: 024 [place] level Lab Routine Ordered: Hemoglobin A1c Lab Routine Ordered: 1 10/11/2023 documented as of this encounter Visit Diagnoses Not on filedocumented in this encounter
--- OUTSIDE RECORDS SUMMARY | 2024-12-27 10:33 | XMS_ITS | Clinical Summary ---
Author Organization [address] Address [address] [place] [phone] Phone Care Team Providers Care Electrical Panel Builder Name Role Phone Unavailable Primary Care Provider Unavailabl e Surgical History Surgery Date Site/Laterality Comments KNEE SURGERY 07/27/07 PROCEDURE: HISTORICAL KNEE SURGERY; COMMENT: recurrent left patella dislocation- 5 surgeries Left knee OTHER SURGICAL HISTORY PROCEDURE: [place] CRANIECTOMY/CRANIOTOMY EXC FOREIGN BODY BRAIN; COMMENT: BB removed - age 3 WRIST SURGERY Left PROCEDURE: HISTORICAL WRIST SURGERY; COMMENT: Multiple wrist surgeries with Dr. 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 Osteogenesis imperfecta 1998 DX:Osteo mary imperfecta Family History Relation Name Status Comments Brother Alive Healthy Father Alive [place] Maternal Grandfather Lung ca ncer Maternal Grandmother [...] AM EST Other assisted (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 from Last 3 Months or Most Recently Relevant to Health Maintenance Results * (ABNORMAL) Lipid panel with reflex to direct LDL (08/03/2024 7:00 AM EST) Cholesterol 201(H) 0 - 200 mg/dL LAB CHEMISTRY METHOD 08/03/2024 1:28 PM EST [facility] Triglycerides 185(H) 0 - 150 mg/dL LAB CHEMISTRY METHOD 08/03/2024 1:28 PM [facility] HDL 87 >=40 mg/dL LAB CHEMISTRY METHOD 08/03/2024 1:28 PM [facility] LDL Calculated 77 0 - 100 mg/dL LAB CHEMISTRY METHOD 08/03/2024 1:28 PM EST [facility] VLDL Cholesterol Rahul 37 mg/dL LAB CHEMISTRY METHOD 08/03/2024 1:28 PM EST [facility] Non HDL Chol. (LDL+VLDL) 114 <145 mg/dL LAB CHEMISTRY METHOD 08/03/2024 1:28 PM [facility] Chol/HDL Ratio 2.3 0.0 - 4.4 LAB CHEMISTRY METHOD 08/03/2024 1:28 PM EST [facility] Blood Venous blood specimen / Unknown Venipuncture / Unknown 08/03/2024 7:00 AM EST 08/03/2024 12:08 PM EST us Shavonne Zavaleta NP LAB BLOOD ORDERABLES Fi nal Result [facility] [address] [place] [address], from Last 3 Months or Most Recently Relevant to Health Maintenance
== END 2024-12-27 10:37 | disposition home or self-care (01) ==
LOC: HO.HUSH 09:35
PROVIDERS: PCP Nurse Practitioner Family; Visit Provider Urology
DX: Z45.018 Encounter for adjustment and management of other part of cardiac pacemaker (principal); N39.8 Other specified disorders of urinary system; R33.9 Retention of urine, unspecified; Q79.60 Ehlers-Danlos syndrome, unspecified
CPT/HCPCS: 99214; G2211

== ENCOUNTER → 2024-12-27 09:34 | Outpatient (BNVA) | payer MEDICARE, MEDICAID, SELFPAY | PROVIDERS: PCP Nurse Practitioner Family; Visit Provider Urology | DX: G89.4 Chronic pain syndrome (principal); Q79.60 Ehlers-Danlos syndrome, unspecified; Q78.0 Osteogenesis imperfecta; R63.6 Underweight; R33.9 Retention of urine, unspecified; N39.8 Other specified disorders of urinary system; Z95.0 Presence of cardiac pacemaker; Z68.1 Body mass index [BMI] 19.9 or less, adult; Z79.899 Other long term (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 | CPT/HCPCS: 51798; 99212 ==

== ENCOUNTER 2024-12-27 12:57 | Outpatient (AMB) | payer MEDICARE, MEDICAID, SELFPAY ==
--- NOTE | 2024-12-27 13:00 | A.OFFPC_ITS ---
Vital Signs 12/27/24 13:07 Height 5 ft Weight 90 lb 8 oz BMI 17.7 BP 100/62 Blood Pressure Location Lt brachial Position Sitting Respiration 14 Pulse 96 Pulse Source Pulse Oximeter Temp 98.5 F Temp Source Temporal Artery Scan Pulse Oximetry (%) 97 Oxygen Delivery Method Room Air Intake Visit Reasons: chronic disease / request pain meds Intake Note: Joselin presents in the office today to request pain medication and to discuss her chronic disease. Allergies azithromycin Allergy (Verified 12/27/24 13:36) Itching levofloxacin [From Levaquin] Allergy (Verified 12/27/24 13:36) Nightmare nitrofurantoin [From Macrodantin] Allergy (Verified 12/27/24 13:36) Itching Medication List - Last Reconciled 12/27/24 by Debi Machado CNP acetaminophen 975 mg (3 x 325 mg) PO Q8H albuterol sulfate 90 mcg/actuation 2 puffs inhalation QID PRN 30 days ascorbic acid (vitamin C) (Vitamin C) 1,000 mg PO DAILY 30 days bethanechol chloride 25 mg PO TID 30 days zykrjqczjt-ujoslaaofxpne-aiev 50-325-40 mg 1 tab PO DAILY PRN cholecalciferol (vitamin D3) 50 mcg PO DAILY clonidine HCl 0.1 mg PO DAILY PRN hydroxyzine HCl 10 mg orally may take one tablet up to 5 times a day as needed for anxiety at least 2 hours apart; ibuprofen mg PO 3XD lurasidone (Latuda) 60 mg PO DAILY meclizine 25 mg PO DAILY PRN quetiapine (Seroquel) 150 mg (1.5 x 100 mg) PO BEDTIME tamsulosin 0.4 mg PO BEDTIME 30 days Tobacco use date assessed: 12/27/24 Dental Screening Dental Screen Date: 12/27/24 Did you have a dental visit in the last 12 months?: No Did you have a dental problem in the last 6 months where you did not have access to dental care?: No Was dental information given to patient?: Patient declined HPI HPI Comments History of Present Illness Details 39-year-old female presents with request s to initiate pain medication for chronic pain syndrome. She has history of osteogenesis imperfecta and Elder Danlos disease. She reports constant chronic neck, back, hips, hips, and knee pain. Tylenol and ibuprofen have not provided relief. She notes that was on Oxycodone and OxyContin for 24 years until she missed a med count appointment with her former PCP in 04/2024. She was seen at [facility] pain management clinic in May 2024 and was deemed not a candidate for opioid treatment. She declined alternative treatment. She is willing to be referred to a different pain management clinic. She is underweight with a BMI of 17.7. However, she notes that she is overweight with her current weight of 90 lb and wishes to get to 80 lb. [facility] Medical History Anorexia Left wrist injury Scoliosis Swelling Osteoporosis Arthritis Asthma Mood disorder Indwelling Joseph catheter present MDD (major depressive disorder), recurrent severe, without psychosis Sacral nerve stimulator present Rectocele Juvenile osteoporosis Compression fx, lumbar spine History of wrist fracture Myofascial pain syndrome Benzodiazepine dependence Anxiety and depression Surgical History History of vaginal surgery History of bladder surgery H/O wrist surgery History of left knee surgery History of right knee surgery History of brain surgery History of placement of ear tubes H/O cystoscopy Family History Mother High blood pressure Cardiovascular disease Father Prostate cancer Social History (Updated 12/27/24 @ 13:05 by Kylie Woodard MA) Household Members: Family Household Members Other:: discharged from today, going to med surg post op Housing: House Are you a primary long term care social worker to a significant other at home: No Do you presently have visiting nurse or other home services: No Alcohol intake: former Comment: oob with steady gait Patient Tobacco Use Status: Current everyday Tobacco user Tobacco use type: Cigarette Cigarette Packs Per Day: 3 Cigarettes Per Day: 40.0 Years Smoked: Over 20 years e-Cigarette/Vaping Use: Currently Using Second Hand Smoke Exposure: No Substance Use Type: Opiates service: No Current occupational status: disabled Current occupational exposures/hazards: No Sexual orientation: Straight/Heterosexual Cognitive needs: No Hearing needs: No Vision needs: No Questionnaire PHQ-9 Over the last 2 weeks, how often have you been bothered by any of the following problems? 19762 - PHQ-9 Billing: Patient declined-do not bill Source: Developed by Drs. Myles Mccoy, Annalisa Holguin, Jaime Villasenor and colleagues, with an educational iqra from [employer]. Thrive Questionnaire Date Thrive assessed: 12/27/24 I am a: Patient What is your living situation today?: I do not have a steady places to live I choose not to answer this question Within the past 12 months, did the food you bought not last and you didn't have the money to get more?: Never true Within the past 12 months, did you worry whether your food would run out before you got money to buy more?: Never true Do you have trouble paying for medicines?: No Do you have trouble getting transportation to medical appointments?: No Do you have trouble paying your heating and electricity bill?: No Do you have trouble taking care of your child, family member or friend?: No Do you have trouble with day-to-day activities such as bathing, preparing meals, shopping, managing finances, etc.?: No Are you currently unemployed and looking for a job?: No Are you interested in more education?: Yes Please select the resources that you would like help with: Housing/Skilled Nursing Currently or been in a relationship where the following occur: I choose not to answer THRIVE Score: 1 AUDIT C Alcohol Use Questionnaire (AUDIT-C) 1. How often do you have a drink containing alcohol?: Never Total Score: 0 ANIBAL-7 AMB Questionnaire ANIBAL-7 Date ANIBAL - 7 assessed: 12/02/24 Source: Developed by Drs. Myles Mccoy, Annalisa Holguin, Jaime Villasenor and colleagues, with an educational iqra from [employer]. Review of Systems Const Details: Const Denies chills, Denies fatigue, Denies fever(s), Denies headache(s) and Denies weakness ENT Denies dizziness and Denies headache(s) Card Denies chest pain, Denies lightheadedness, Denies dyspnea and Denies other (Palpitations) Resp Denies cough, Denies dyspnea, Denies wheezing and Denies other ( shortness of breath) GI Denies abdominal pain, Denies melena, Denies hematochezia, Denies change in bowel habits, Denies dyspepsia and Denies nausea Denies hematuria and Denies dysuria Musc Reports as per HPI Skin/Breast Denies rash, Denies unusual bruising and Denies wounds Neuro Denies abnormal gait, Denies dizziness, Denies headache(s), Denies memory loss, Denies numbness, Denies Sensory deficit (Neuro), Denies tingling and Denies weakness Psych Denies anxiety, Denies depression, Denies memory loss Endo Denies cold intolerance, Denies fatigue, Denies heat intolerance, Denies polydipsia and Denies polyuria Aller/Immun Denies wheezing Physical exam (Primary Care) Vital Signs: Last Vital Signs Temp 98.5 F 12/27/24 13:07 Pulse 96 12/27/24 13:07 Resp 14 12/27/24 13:07 BP 100/62 12/27/24 13:07 Pulse Ox 97 12/27/24 13:07 Oxygen Delivery Method Room Air 12/27/24 13:07 BMI result Body Mass Index 17.7 Tobacco/Smoking Status: Tobacco use Status Tobacco use date assessed 12/27/24 12/27/24 13:06 Patient Tobacco Use Status Current everyday Tobacco 12/27/24 13:05 Tobacco use type Cigarette 12/27/24 13:05 e-Cigarette/Vaping Use Currently Using 12/27/24 13:05 PHQ-9: PHQ-9 Score PHQ-9: Total score 15 12/27/24 13:11 Thrive Assessment: Date of Thrive Assessment Date Thrive assessed 12/27/24 12/27/24 13:11 Currently or been in a relationship where the following occur: I choose not to answer Const Other: General: no acute distress and well developed Nutritional Appearance: well nourished Orientation/consciousness: patient oriented x3 HENMT Head: Yes normocephalic and Yes atraumatic Eyes General: appearance normal, both eyes and all related structures Pupils: Equal, round and reactive pupils present EOM: EOMs intact bilaterally Resp Effort & Inspection: normal respiratory effort Auscultation: clear to auscultation bilaterally Cardio Rate: regular rate Rhythm: regular rhythm Heart sounds: S1 normal heart sound present, S2 normal heart sound present, no gallops, no murmurs and no rubs GI Palpation (GI): No Abdominal aortic bruit present, Soft to palpation, nontender, No hepatosplenomegaly present and No Rebound tenderness present Auscultation: normal bowel sounds General: Yes no CVA tenderness Back/Spine/Pelvis Back: no CVA tenderness Cervical Spine: cervical ROM normal and No Cervical spine tenderness Thoracic/Lumbar Spine: thoraco-lumbar ROM normal, No pain with thoraco-lumbar ROM, No thoracic spinal tenderness and +lumbar spinal tenderness Extrem General: Yes normal to inspection, No edema and No calf tenderness Skin General: warm and dry. Normal skin color. 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 She has history of osteogenesis imperfecta and Elder Danlos disease. She reports constant chronic neck, back, hips, hips, and knee pain. Tylenol and ibuprofen have not provided relief. She notes that was on Oxycodone and OxyContin for 24 years until she missed a med count appointment with her former PCP in 04/2024. She was seen at [facility] pain management clinic in May 2024 and was deemed not a candidate for opioid treatment. She declined alternative treatment. She is willing to be referred to a different pain management clinic. Lumbar spine tenderness to palpation. No overt injury or trauma. May take Tylenol ibuprofen for pain or discomfort. Warm/cool compresses encouraged. Referred to [facility] pain management clinic. Follow-up as needed. Verbalized understanding and agreed with the plan. (2) Jennifer-Danlos disease: Code(s): Q79.60 - Jennifer-Danlos syndrome, unspecified Category: Medical Plan: Plan as above. (3) Osteogenesis imperfecta: Code(s): Q78.0 - Osteogenesis imperfecta Category: Medical Plan: Plan as above. (4) Underweight (BMI < 18.5): Code(s): R63.6 - Underweight; Z68.1 - Body mass index [BMI] 19.9 or less, adult Category: Medical Plan: She is underweight with a BMI of 17.7. However, she notes that she is overweight with her current weight of 90 lb and wishes to get to 80 lb. Instructed on the importance of optimal weight and encouraged to maintain a healthy diet. She insisted that she is overweight and Will continue to lose weight until she gets to 80 lb. Orders: Referrals Pain Management Referral G89.4 - Chronic pain syndrome, Q78.0 - Osteogenesis imperfecta, Q79.60 - Jennifer-Danlos syndrome, unspecified
[2024-12-27 13:07] VITALS: BP 100/62; PULSE 96; RESP 14; TEMP 36.9; O2SAT 97; BMI 17.7
--- OUTSIDE RECORDS SUMMARY | 2024-12-27 14:08 | XMS_ITS | Clinical Summary ---
Author Organization [address] Address [address] [place] [phone] Phone Care Team Providers Care Stone Planer Name Role Phone Unavailable Primary Care Provider Unavailabl e Surgical History Surgery Date Site/Laterality Comments KNEE SURGERY 07/27/07 PROCEDURE: HISTORICAL KNEE SURGERY; COMMENT: recurrent left patella dislocation- 5 surgeries Left knee OTHER SURGICAL HISTORY PROCEDURE: [place] CRANIECTOMY/CRANIOTOMY EXC FOREIGN BODY BRAIN; COMMENT: BB removed - age 3 WRIST SURGERY Left PROCEDURE: HISTORICAL WRIST SURGERY; COMMENT: Multiple wrist surgeries with Dr. 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 syndrome Osteogenesis imperfecta 1998 DX:Osteo mary imperfecta Family History Relation Name Status Comments Brother Alive Healthy Father Alive [place] Maternal Grandfather Lung ca ncer Maternal Grandmother [...] LDL Routine 08/03/2024 7:00 AM EST Other half-way (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 from Last 3 Months or Most Recently Relevant to Health Maintenance Results * (ABNORMAL) Lipid panel with reflex to direct LDL (08/03/2024 7:00 AM EST) Cholesterol 201(H) 0 - 200 mg/dL LAB CHEMISTRY METHOD 08/03/2024 1:28 PM EST [facility] Triglycerides 185(H) 0 - 150 mg/dL LAB CHEMISTRY METHOD 08/03/2024 1:28 PM [facility] HDL 87 >=40 mg/dL LAB CHEMISTRY METHOD 08/03/2024 1:28 PM [facility] LDL Calculated 77 0 - 100 mg/dL LAB CHEMISTRY METHOD 08/03/2024 1:28 PM EST [facility] VLDL Cholesterol Rahul 37 mg/dL LAB CHEMISTRY METHOD 08/03/2024 1:28 PM EST [facility] Non HDL Chol. (LDL+VLDL) 114 <145 mg/dL LAB CHEMISTRY METHOD 08/03/2024 1:28 PM [facility] Chol/HDL Ratio 2.3 0.0 - 4.4 LAB CHEMISTRY METHOD 08/03/2024 1:28 PM EST [facility] Blood Venous blood specimen / Unknown Venipuncture / Unknown 08/03/2024 7:00 AM EST 08/03/2024 12:08 PM EST us Shavonne Zavaleta NP LAB BLOOD ORDERABLES Fi nal Result [facility] [address] [place] [address], from Last 3 Months or Most Recently Relevant to Health Maintenance
--- OUTSIDE RECORDS SUMMARY | 2024-12-27 14:08 | XMS_ITS | Encounter Summary ---
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 Social History Tobacco Use [...] LDL Routine 08/03/2024 7:00 AM EST Other residential (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 HEMOGLOBIN A1C Routine 08/03/2024 7:00 AM EST Other residential (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 LITHIUM LEVEL Routine 08/03/2024 7:00 AM EST 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 documented in this encounter Results * (ABNORMAL) [place] level (08/03/2024 7:00 AM EST) [place] Level 0.5(L) 0.6 - 1.2 mEq/L LAB CHEMISTRY METHOD 08/03/2024 1:31 PM EST [facility] Blood Venous blood specimen / Unknown Venipuncture / Unknown 08/03/2024 7:00 AM EST 08/03/2024 12:08 PM EST us Shavonne Zavaleta RN [facility] LAB BLOOD ORDERABLES Fi nal Result [facility] [address] [place] [address], [place] [phone] * (ABNORMAL) Lipid panel with reflex to [...] LAB CHEMISTRY METHOD 08/03/2024 1:28 PM EST [facility] Non HDL Chol. (LDL+VLDL) 114 <145 mg/dL LAB CHEMISTRY METHOD 08/03/2024 1:[address] [facility] Chol/HDL Ratio 2.3 0.0 - 4.4 LAB CHEMISTRY METHOD 08/03/2024 1:[address] [facility] Blood Venous blood specimen / Unknown Venipuncture / Unknown 08/03/2024 7:00 AM EST 08/03/2024 12:08 PM EST us Shavonnecassius Zavaleta RN [facility] LAB BLOOD ORDERABLES Fi nal Result Performing Organization Address City/[facility]/ZIP Co de Phone Number [facility] [address] [place] [address], [place] [phone] * Hemoglobin A1c (08/03/2024 7:00 AM EST) Hemoglobin A1C 4.7 <6.5 % LAB CHEMISTRY METHOD 08/03/2024 1:35 PM EST [facility] Mean Bld Glu Estim. 88 mg/dL LAB CHEMISTRY METHOD 08/03/2024 1:35 PM EST [facility] Blood Venous blood specimen / Unknown Venipuncture / Unknown 08/03/2024 7:00 AM EST 08/03/2024 11:51 AM EST Shavonne Zavaleta RN [facility] LAB BLOOD ORDERABLES Fi nal Result Performing Organization Address 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
--- OUTSIDE RECORDS SUMMARY | 2024-12-27 14:08 | XMS_ITS | Encounter Summary ---
Author Organization [facility] Address [address] [place] [address] Care Team Providers Care Grocery Clerk Checking Name Role Phone Unavailable Primary Care Provider Unavailabl e Encounter Details Date Type Department Care Team (Late st Contact Info) Description 08/10/2024 Lab Requisition [facility] - Main Lab [address] [facility] [place] [address] Shavonne Zavaleta, MAGDA [address] [place] [address] Social History Tobacco Use Types [...] to direct LDL Lab Routine Ordered: [address] [place] level Lab Routine Ordered: Hemoglobin A1c Lab Routine Ordered: 1 10/11/2023 documented as of this encounter Visit Diagnoses Not on filedocumented in this encounter
== END 2024-12-27 13:49 | disposition home or self-care (01) ==
LOC: HO.HMCFM 12:58
PROVIDERS: PCP Nurse Practitioner Family; Visit Provider Nurse Practitioner Family
DX: G89.4 Chronic pain syndrome (principal); Q79.60 Ehlers-Danlos syndrome, unspecified; Q78.0 Osteogenesis imperfecta; R63.6 Underweight; Z68.1 Body mass index [BMI] 19.9 or less, adult

== ENCOUNTER 2025-01-31 14:21 | Outpatient (AMB) | payer MEDICARE, MEDICAID, SELFPAY ==
--- NOTE | 2025-01-31 14:12 | A.OFFPSYCH_ITS ---
Intake Intake Visit Reasons: f/u consultation Spray Gun Sizer Required: No Allergies azithromycin Allergy (Verified 12/27/24 13:36) Itching levofloxacin (From Levaquin) Allergy (Verified 12/27/24 13:36) Nightmare nitrofurantoin (From Macrodantin) Allergy (Verified 12/27/24 13:36) Itching Medication List - Last Reconciled 02/02/25 by Barbi Rivera, SANA acetaminophen 975 mg (3 x 325 mg) PO Q8H albuterol sulfate 90 mcg/actuation 2 puffs inhalation QID PRN 30 days ascorbic acid (vitamin C) (Vitamin C) 1,000 mg PO DAILY 30 days bethanechol chloride 25 mg PO TID 30 days sbpbswtthz-qoozfxpsduacz-igap 50-325-40 mg 1 tab PO DAILY PRN cholecalciferol (vitamin D3) 50 mcg PO DAILY clonidine HCl 0.1 mg PO DAILY PRN hydroxyzine HCl 10 mg orally may take one tablet up to 5 times a day as needed for anxiety at least 2 hours apart; ibuprofen mg PO 3XD lurasidone (Latuda) 60 mg PO DAILY meclizine 25 mg PO DAILY PRN quetiapine (Seroquel) 150 mg (1.5 x 100 mg) PO BEDTIME tamsulosin 0.4 mg PO BEDTIME 30 days HPI- Psychiatric Chief Complaint: f/u consultation HPI Narrative: Pt struggling with grief and sadness after learning mother has terminal cancer; mother recently entered hospice; pt has been hospitalized 2 times since with SI and malnutrition/dehydratrion 2 to eating disorder. Pt denies SI or HI. She reports she is determined to be a support to her mother and spend as much quality time with her as possible; she reports she and brother are supporting each other. Pt reports adherence to medications; she reports still having trouble eating but working on it; she will try to drink ensure daily. She has i started with a new therapist that she sees weekly Past Psychiatric History: 2x 10/04/24-10/06/24 for overdose and again 10/11/24 - 10/18/24 [facility] 10/18-11/03/24 Hospitalized October 2024 at [place] Hospitalized x2 in 2023 at [place] [facility] [place] [facility] primarily for eating disorder at age 18. Patient reports multiple hospitalizations for severe low weight and protein in her urine but these hospitalizations were on medical units. In 2021 the patient was in [facility] Emergency room and seen by AB and crisis after she was found wandering the streets she was expressing paranoid ideation stating that her family was trying to poison her she also reported at that time hearing evil voices that are head she reports she was talking to Kade and making statements I am and I am dying they are trying to kill me Subjective Subjective Subjective Medication Compliance: Yes Side effects from medications: No Review of Systems Medical Review of Systems: unchanged Mental Status Exam Mental Status Exam Patient Appearance: Well Grooomed and Appropriate Patient Orientation: Person, Place, Time and Situation Level of Consciousness: Awake Patient Behavior: Appropriate, Cooperative and Anxious Mood Description: Anxious and Sad Affect Description: Anxious and Sad Patient Cognition Impaired: No Ability to Follow Directions: Good Speech Pattern: Clear, Appropriate and Soft-Spoken Memory Description: Intact Hallucinations: None Delusions: Not Present Thought Process: Rumination Thought Content: positive for Preoccupation Judgement: Fair Telehealth Telehealth Telehealth Platform: Other (please specify) (Veenome) Location of provider rendering services: practice address Location of patient: address on file Patient Identification confirmed using: Name, : Yes Telehealth method: video Patient verbally consented to treatment: Yes Patient verbally consented to billing insurance company: Yes Patient informed of any privacy concerns related to visit: Yes Minutes spent on Phone/Video with Pt.: 28 Assessment and Plan Assessment & Plan (1) ANIBAL (generalized anxiety disorder): Status: Acute Code(s): F41.1 - Generalized anxiety disorder (2) MDD (major depressive disorder), recurrent severe, without psychosis: Status: Acute Code(s): F33.2 - Major depressive disorder, recurrent severe without psychotic features (3) PTSD (post-traumatic stress disorder): Status: Acute Code(s): F43.10 - Post-traumatic stress disorder, unspecified (4) Anorexia nervosa: Status: Acute Code(s): F50.00 - Anorexia nervosa, unspecified Plan continue meds as is follow up in 3-4 weeks continue with therapy contnue to work with brother in mutual support Counseling and coordination of Care Pt. Self Management counseling: Maintenance-social rhythm, Nutrition education and improvement, Sleep hygiene, General coping skills and Problem solving Medication management counseling: Effectiveness, Side effects, Dosing range, Duration, Drug interaction and Adherence Diagnosis and Prognosis Counseling: Accuracy of diagnosis, Prognosis over time, Impact of diagnosis on life functions, Impact of family relationship, Problematic behaviors secondary to diagnosis and Adequacy of current interventions Details: I spent 35 minutes reviewing the record, seeing the patient and documenting in the medical record. Counseling provided to the patient/caregiver as outlined below. Addressed patient/caregiver concerns regarding current medication regime including effec tive adherence. Addressed patient/caregiver concerns regarding diagnosis and prognosis including accuracy of diagnosis, prognosis over time, impact of diagnosis. Addressed patient/caregiver concerns regarding impact of recent stressors. [facility] Medical History Anorexia Left wrist injury Scoliosis Swelling Osteoporosis Arthritis Asthma Mood disorder Indwelling Joseph catheter present MDD (major depressive disorder), recurrent severe, without psychosis Sacral nerve stimulator present Rectocele Juvenile osteoporosis Compression fx, lumbar spine History of wrist fracture Myofascial pain syndrome Benzodiazepine dependence Anxiety and depression Surgical History History of vaginal surgery History of bladder surgery H/O wrist surgery History of left knee surgery History of right knee surgery History of brain surgery History of placement of ear tubes H/O cystoscopy Family History Mother High blood pressure Cardiovascular disease Father Prostate cancer Social History (Updated 12/27/24 @ 13:05 by Kylie Woodard MA) Household Members: Family Household Members Other:: discharged from today, going to med surg post op Housing: House Are you a primary healthcare economics manager to a significant other at home: No Do you presently have visiting nurse or other home services: No Alcohol intake: former Comment: oob with steady gait Patient Tobacco Use Status: Current everyday Tobacco user Tobacco use type: Cigarette Cigarette Packs Per Day: 3 Cigarettes Per Day: 40.0 Years Smoked: Over 20 years e-Cigarette/Vaping Use: Currently Using Second Hand Smoke Exposure: No Substance Use Type: Opiates service: No Current occupational status: disabled Current occupational exposures/hazards: No Sexual orientation: Straight/Heterosexual Cognitive needs: No Hearing needs: No Vision needs: No Social History: Patient reports she did have friends growing up and she was straight a student until she left school at the age of 16 due to anorexia she had to drop out of school due to multiple admissions at [facility] she is socially isolated currently Substance History: denies any hx Trauma History: hx of trauma in addition to Multiple surgeries Coding Level of Care Code Tele Est Pt Level 4 (58838) Diagnoses ANIBAL (generalized anxiety disorder) F41.1 MDD (major depressive disorder), recurrent severe, without psychosis F33.2 PTSD (post-traumatic stress disorder) F43.10 Anorexia nervosa F50.00
--- OUTSIDE RECORDS SUMMARY | 2025-01-31 17:19 | XMS_ITS | Encounter Summary ---
Author Organization [facility] Address [address] [place] [address] Care Team Providers Care Graduate Research Assistant Name Role Phone Unavailable Primary Care Provider Unavailabl e Encounter Details Date Type Department Care Team (Late st Contact Info) Description 08/10/2024 Lab Requisition [facility] - Main Lab [address] [facility] [place] [address] Shavonne Zavaleta, MAGDA [address] [place] [address] Social History Tobacco Use Types [...] to direct LDL Lab Routine Ordered: [address] [place] level Lab Routine Ordered: Hemoglobin A1c Lab Routine Ordered: 1 10/11/2023 documented as of this encounter Visit Diagnoses Not on filedocumented in this encounter
== END 2025-01-31 14:22 | disposition home or self-care (01) ==
LOC: HO.HOP 14:21
PROVIDERS: PCP Nurse Practitioner Family; Visit Provider Clinical Nurse Specialist Psychiatric/Mental Health
DX: F41.1 Generalized anxiety disorder (principal); F33.2 Major depressive disorder, recurrent severe without psychotic features; F43.10 Post-traumatic stress disorder, unspecified; F50.00 Anorexia nervosa, unspecified
CPT/HCPCS: 99214

== ENCOUNTER → 2025-01-31 14:21 | Outpatient (BNVA) | payer MEDICARE, MEDICAID, SELFPAY | PROVIDERS: PCP Nurse Practitioner Family; Visit Provider Clinical Nurse Specialist Psychiatric/Mental Health ==

== ENCOUNTER 2025-02-14 13:53 | Outpatient (AMB) | payer MEDICARE, MEDICAID, SELFPAY ==
--- NOTE | 2025-02-14 13:49 | A.OFFPSYCH_ITS ---
Intake Intake Visit Reasons: f/u consultation Graduate Teaching Associate Required: No Allergies azithromycin Allergy (Verified 12/27/24 13:36) Itching levofloxacin (From Levaquin) Allergy (Verified 12/27/24 13:36) Nightmare nitrofurantoin (From Macrodantin) Allergy (Verified 12/27/24 13:36) Itching Medication List - Last Reconciled 02/14/25 by Barbi Rivera, TURBINE MECHANIC acetaminophen 975 mg (3 x 325 mg) PO Q8H albuterol sulfate 90 mcg/actuation 2 puffs inhalation QID PRN 30 days ascorbic acid (vitamin C) (Vitamin C) 1,000 mg PO DAILY 30 days bethanechol chloride 25 mg PO TID 30 days glblijerem-zinvqchwvdeaq-wpgd 50-325-40 mg 1 tab PO DAILY PRN cholecalciferol (vitamin D3) 50 mcg PO DAILY clonidine HCl 0.1 mg PO DAILY PRN hydroxyzine HCl 10 mg orally may take one tablet up to 5 times a day as needed for anxiety at least 2 hours apart; ibuprofen mg PO 3XD lurasidone (Latuda) 60 mg PO DAILY meclizine 25 mg PO DAILY PRN quetiapine (Seroquel) 150 mg (1.5 x 100 mg) PO BEDTIME tamsulosin 0.4 mg PO BEDTIME 30 days HPI- Psychiatric Chief Complaint: f/u consultation HPI Narrative: pt seen via telehealth re: depression, anxiety, PTSD, suicidal ideation, eating disorder. Pt remains stable condition. she is coping fairly well given high stress of mother's terminal illness. pt having trouble eating because her stomach feels in knots. she is taliking with hterapist regularly and feels connected; she denies suicdal ideation she denies self harm. Past Psychiatric History: 2x 10/04/24-10/06/24 for overdose and again 10/11/24 - 10/18/24 [facility] 10/18-11/03/24 Hospitalized October 2024 at [place] Hospitalized x2 in 2023 at [place] [facility] primarily for eating disorder at age 18. Jayla nt reports multiple hospitalizations for severe low weight and protein in her urine but these hospitalizations were on medical units. In 2021 the patient was in [facility] Emergency room and seen by AB and crisis after she was found wandering the streets she was expressing paranoid ideation stating that her family was trying to poison her she also reported at that time hearing evil voices that are head she reports she was talking to Kade and making statements I am and I am dying they are trying to kill me Subjective Subjective Subjective Medication Compliance: Yes Side effects from medications: No Review of Systems Medical Review of Systems: unchanged Mental Status Exam Mental Status Exam Patient Appearance: Appropriate Patient Orientation: Person, Place, Time and Situation Level of Consciousness: Awake and Appropriate Patient Behavior: Appropriate, Cooperative and Anxious Mood Description: Anxious and Sad Affect Description: Anxious and Sad Patient Cognition Impaired: No Ability to Follow Directions: Good Speech Pattern: Clear, Appropriate and Soft-Spoken Memory Description: Intact Hallucinations: None Delusions: Not Present Thought Process: Rumination Thought Content: positive for Preoccupation Judgement: Fair Results Reviewed Results Reviewed: reviewed records sent from [facility] Telehealth Telehealth Telehealth Platform: Other (please specify) (ApnaP[place]a) Location of provider rendering services: practice address Location of patient: address on file Patient Identification confirmed using: Name, : Yes Telehealth method: video Patient verbally consented to treatment: Yes Patient verbally consented to billing insurance company: Yes Patient informed of any privacy concerns related to visit: Yes Minutes spent on Phone/Video with Pt.: 28 Assessment and Plan Assessment & Plan (1) PTSD (post-traumatic stress disorder): Status: Acute Code(s): F43.10 - Post-traumatic stress disorder, unspecified (2) MDD (major depressive disorder), recurrent severe, without psychosis: Status: Acute Code(s): F33.2 - Major depressive disorder, recurrent severe without psychotic features (3) Anorexia nervosa: Status: Acute Code(s): F50.00 - Anorexia nervosa, unspecified (4) ANIBAL (generalized anxiety disorder): Status: Acute Code(s): F41.1 - Generalized anxiety disorder Plan continue meds as is follow up in 3-4 weeks continue with therapy contnue to work with brother in mutual support Medications: Refilled clonidine HCl 0.1 mg PO DAILY PRN 30 tabs 0RF anxiety lurasidone (Latuda) must administer with food (at least 350 calories) 60 mg PO DAILY 14 tabs 2RF quetiapine (Seroquel) 150 mg (1.5 x 100 mg) PO BEDTIME 14 tabs 2RF Counseling and coordination of Care Pt. Self Management counseling: Maintenance-social rhythm, Nutrition education and improvement, Sleep hygiene, General coping skills and Problem solving Medication management counseling: Effectiveness, Side effects, Dosing range, Duration, Drug interaction and Adherence Diagnosis and Prognosis Counseling: Accuracy of diagnosis, Prognosis over time, Impact of diagnosis on life functions, Impact of family relationship, Problematic behaviors secondary to diagnosis and Adequacy of current interventions Details: I spent 45 minutes reviewing the record, seeing the patient and documenting in the medical record. Counseling provided to the patient/caregiver as outlined below. Addressed patient/caregiver concerns regarding current medication regime including effective adherence. Addressed patient/caregiver concerns regarding diagnosis and prognosis including accuracy of diagnosis, prognosis over time, impact of diagnosis. Addressed patient/caregiver concerns regarding impact of recent stressors. [facility] Medical History Anorexia Left wrist injury Scoliosis Swelling Osteoporosis Arthritis Asthma Mood disorder Indwelling Joseph catheter present MDD (major depressive disorder), recurrent severe, without psychosis Sacral nerve stimulator present Rectocele Juvenile osteoporosis Compression fx, lumbar spine History of wrist fracture Myofascial pain syndrome Benzodiazepine dependence Anxiety and depression Surgical History History of vaginal surgery History of bladder surgery H/O wrist surgery History of left knee surgery History of right knee surgery History of brain surgery History of placement of ear tubes H/O cystoscopy Family History Mother High blood pressure Cardiovascular disease Father Prostate cancer Social History (Updated 12/27/24 @ 13:05 by Kylie Woodard MA) Household Members: Family Household Members Other:: discharged from today, going to med surg post op Housing: House Are you a primary home health care worker to a significant other at home: No Do you presently have visiting nurse or other home services: No Alcohol intake: former Comment: oob with steady gait Patient Tobacco Use Status: Current everyday Tobacco user Tobacco use type: Cigarette Cigarette Packs Per Day: 3 Cigarettes Per Day: 40.0 Years Smoked: Over 20 years e-Cigarette/Vaping Use: Currently Using Second Hand Smoke Exposure: No Substance Use Type: Opiates service: No Current occupational status: disabled Current occupational exposures/hazards: No Sexual orientation: Straight/Heterosexual Cognitive needs: No Hearing needs: No Vision needs: No Social History: Patient reports she did have friends growing up and she was straight a student until she left school at the age of 16 due to anorexia she had to drop out of school due to multiple admissions at [facility] she is socially isolated currently Substance History: denies any hx Trauma History: hx of trauma in addition to Multiple surgeries Coding Level of Care Code Tele Est Pt Level 5 (64664) Diagnoses PTSD (post-traumatic stress disorder) F43.10 MDD (major depressive disorder), recurrent severe, without psychosis F33.2 Anorexia nervosa F50.00 ANIBAL (generalized anxiety disorder) F41.1
== END 2025-02-14 13:54 | disposition home or self-care (01) ==
LOC: HO.HOP 13:53
PROVIDERS: PCP Nurse Practitioner Family; Visit Provider Clinical Nurse Specialist Psychiatric/Mental Health
DX: F33.2 Major depressive disorder, recurrent severe without psychotic features (principal); F50.00 Anorexia nervosa, unspecified; F43.11 Post-traumatic stress disorder, acute; F41.1 Generalized anxiety disorder
CPT/HCPCS: 99215

== ENCOUNTER → 2025-02-14 13:53 | Outpatient (BNVA) | payer MEDICARE, MEDICAID, SELFPAY | PROVIDERS: PCP Nurse Practitioner Family; Visit Provider Clinical Nurse Specialist Psychiatric/Mental Health | DX: Z13.89 Encounter for screening for other disorder (principal) ==

== ENCOUNTER 2025-03-02 11:43 | Outpatient (AMB) | payer MEDICARE, MEDICAID, SELFPAY ==
--- NOTE | 2025-03-02 11:05 | MHC.OFFVISPS ---
Intake Intake Visit Reasons: f/u consultation Public Health Technician Required: No Allergies azithromycin Allergy (Verified 12/27/24 13:36) Itching levofloxacin (From Levaquin) Allergy (Verified 12/27/24 13:36) Nightmare nitrofurantoin (From Macrodantin) Allergy (Verified 12/27/24 13:36) Itching Medication List - Last Reconciled 03/02/25 by Barbi Rivera, SANA acetaminophen 975 mg (3 x 325 mg) PO Q8H albuterol sulfate 90 mcg/actuation 2 puffs inhalation QID PRN 30 days ascorbic acid (vitamin C) (Vitamin C) 1,000 mg PO DAILY 30 days bethanechol chloride 25 mg PO TID 30 days lgzkpbdylc-tbtgpnyzcuaod-fqta 50-325-40 mg 1 tab PO DAILY PRN cholecalciferol (vitamin D3) 50 mcg PO DAILY clonidine HCl 0.1 mg PO DAILY PRN hydroxyzine HCl 10 mg orally may take one tablet up to 5 times a day as needed for anxiety at least 2 hours apart; ibuprofen mg PO 3XD lurasidone (Latuda) 60 mg PO DAILY meclizine 25 mg PO DAILY PRN quetiapine (Seroquel) 150 mg (1.5 x 100 mg) PO BEDTIME tamsulosin 0.4 mg PO BEDTIME 30 days HPI- Psychiatric Chief Complaint: f/u consultation HPI Narrative: Pt seen via telehealth appointment for depression and anxiety. Pt reports she is not doing well. she reports feeling very depressed and anxious; she reports not able to eat or drink. pt has not had any liquids fro some time- she could not be exact. She reports that she took 7 tablets of clonidine 0.1mg all at once because she wanted to feel better. I told patient that I needed to call EMS and she needed to go to ER. She said she didn't want to but I informed her she needed medical intervention and monitoring now. She reluctantly ach=knowledged. I called [place] [employer] and spoke to dispatcher. let her know patient took 7 tablets of clonicinde and is dehydrated and needs ambulance to bring her to ED. Dispatcher said se would send ambulance to [facility]. Past Psychiatric History: 2x 10/04/24-10/06/24 for overdose and again 10/11/24 - 10/18/24 [facility] 10/18-11/03/24 Hospitalized October 2024 at [place] Hospitalized x2 in 2023 at [place] [facility] primarily for eating disorder at age 18. Patient reports multiple hospitalizations for severe low weight and protein in her urine but these hospitalizations were on medical units. In 2021 the patient was in [facility] Emergency room and seen by ABH and crisis after she was found wandering the streets she was expressing paranoid ideation stating that her family was trying to poison her she also reported at that time hearing evil voices that are head she reports she was talking to Kade and making statements I am and I am dying they are trying to kill me Subjective Subjective Subjective Medication Compliance: Yes Side effects from medications: No Review of Systems Medical Review of Systems: unchanged Mental Status Exam Mental Status Exam Patient Appearance: Appropriate Patient Orientation: Person, Place, Time and Situation Level of Consciousness: Awake, Appropriate and Alert Patient Behavior: Appropriate and Resistive to Care Mood Description: Depressed and Flat Affect Description: Depressed and Flat Patient Cognition Impaired: No Ability to Follow Directions: Fair Speech Pattern: Clear and Soft-Spoken Memory Description: Intact Hallucinations: None Delusions: Not Present Thought Process: Goal Oriented Thought Content: positive for [place] and positive for Goal Oriented Judgement: Poor Telehealth Telehealth Telehealth Platform: Other (please specify) ([email or web address]) Location of provider rendering services: practice address Location of patient: address on file Patient Identification confirmed using: Name, : Yes Telehealth method: video Patient verbally consented to treatment: Yes Patient verbally consented to billing insurance company: Yes Patient informed of any privacy concerns related to visit: Yes Minutes spent on Phone/Video with Pt.: 10 Assessment and Plan Assessment & Plan (1) MDD (major depressive disorder), recurrent severe, without psychosis: Status: Acute Code(s): F33.2 - Major depressive disorder, recurrent severe without psychotic features (2) Overdose by ingestion: Status: Acute Code(s): T50.901A - Poisoning by unspecified drugs, medicaments and biological substances, accidental (unintentional), initial encounter Plan [place] [employer] called dispatcher informed of overdose and dehyddration dispatcher agree to send EMS pt to be followed after hospital care Counseling and coordination of Care Pt. Self Management counseling: Med illness tx adherence Medication management counseling: Side effects and Other (need for medical intervention) Diagnosis and Prognosis Counseling: Prognosis over time Details: I spent 25 minutes reviewing the record, seeing the patient calling EMS, and documenting in the medical record. Counseling provided to the patient/caregiver as outlined below. Addressed patient/caregiver concerns regarding current medication regime including effective adherence. Addressed patient/caregiver concerns regarding diagnosis and prognosis including accuracy of diagnosis, prognosis over time, impact of diagnosis. Addressed patient/caregiver concerns regarding impact of recent stressors. [facility] Medical History Anorexia Left wrist injury Scoliosis Swelling Osteoporosis Arthritis Asthma Mood disorder Indwelling Joseph catheter present MDD (major depressive disorder), recurrent severe, without psychosis Sacral nerve stimulator present Rectocele Juvenile osteoporosis Compression fx, lumbar spine History of wrist fracture Myofascial pain syndrome Benzodiazepine dependence Anxiety and depression Surgical History History of vaginal surgery History of bladder surgery H/O wrist surgery History of left knee surgery History of right knee surgery History of brain surgery History of placement of ear tubes H/O cystoscopy Family History Mother High blood pressure Cardiovascular disease Father Prostate cancer Social History (Updated 12/27/24 @ 13:05 by Kylie Woodard MA) Household Members: Family Household Members Other:: discharged from today, going to med surg post op Housing: House Are you a primary youth career specialist to a significant other at home: No Do you presently have visiting nurse or other home services: No Alcohol intake: former Comment: oob with steady gait Patient Tobacco Use Status: Current everyday Tobacco user Tobacco use type: Cigarette Cigarette Packs Per Day: 3 Cigarettes Per Day: 40.0 Years Smoked: Over 20 years e-Cigarette/Vaping Use: Currently Using Second Hand Smoke Exposure: No Substance Use Type: Opiates service: No Current occupational status: disabled Current occupational exposures/hazards: No Sexual orientation: Straight/Heterosexual Cognitive needs: No Hearing needs: No Vision needs: No Social History: Patient reports she did have friends growing up and she was straight a student until she left school at the age of 16 due to anorexia she had to drop out of school due to multiple admissions at [facility] she is socially isolated currently Substance History: denies any hx Trauma History: hx of trauma in addition to Multiple surgeries Coding Level of Care Code Est Pt Level 3 (71287) Diagnoses MDD (major depressive disorder), recurrent severe, without psychosis F33.2 Overdose by ingestion T50.901A
--- OUTSIDE RECORDS SUMMARY | 2025-03-02 12:17 | XMS_ITS | Encounter Summary ---
Author Organization [facility] Address [address] [place] [address] Care Team Providers Care Manager Financial Systems Name Role Phone Unavailable Primary Care Provider Unavailabl e Encounter Details Date Type Department Care Team (Late st Contact Info) Description 08/10/2024 Lab Requisition [facility] - Main Lab [address] [facility] [place] [address] Shavonne Zavaleta, MAGDA [address] [place] [address] Social History Tobacco Use Types [...] to direct LDL Lab Routine Ordered: 024 [place] level Lab Routine Ordered: Hemoglobin A1c Lab Routine Ordered: 1 10/11/2023 documented as of this encounter Visit Diagnoses Not on filedocumented in this encounter
== END 2025-03-02 11:43 | disposition home or self-care (01) ==
LOC: HO.HOP 11:43
PROVIDERS: PCP Nurse Practitioner Family; Visit Provider Clinical Nurse Specialist Psychiatric/Mental Health
DX: F33.2 Major depressive disorder, recurrent severe without psychotic features (principal); T50.901A Poisoning by unspecified drugs, medicaments and biological substances, accidental (unintentional), initial encounter
CPT/HCPCS: 99213

== ENCOUNTER → 2025-03-02 11:43 | Outpatient (BNVA) | payer MEDICARE, MEDICAID, SELFPAY | PROVIDERS: PCP Nurse Practitioner Family; Visit Provider Clinical Nurse Specialist Psychiatric/Mental Health | DX: F33.2 Major depressive disorder, recurrent severe without psychotic features (principal); T50.901A Poisoning by unspecified drugs, medicaments and biological substances, accidental (unintentional), initial encounter | CPT/HCPCS: 99212 ==

== ENCOUNTER 2025-03-07 15:31 | Outpatient (AMB) | payer MEDICARE, MEDICAID, SELFPAY ==
--- NOTE | 2025-03-07 13:44 | A.OFFPSYCH_ITS ---
Intake Intake Visit Reasons: f/u consultation Maintenance Equipment Operator Required: No Allergies azithromycin Allergy (Verified 12/27/24 13:36) Itching levofloxacin (From Levaquin) Allergy (Verified 12/27/24 13:36) Nightmare nitrofurantoin (From Macrodantin) Allergy (Verified 12/27/24 13:36) Itching Medication List - Last Reconciled 03/07/25 by Barbi Rivera, SANA acetaminophen 975 mg (3 x 325 mg) PO Q8H albuterol sulfate 90 mcg/actuation 2 puffs inhalation QID PRN 30 days ascorbic acid (vitamin C) (Vitamin C) 1,000 mg PO DAILY 30 days bethanechol chloride 25 mg PO TID 30 days yvwjulcmoa-wbrtdmfqlrwcr-gjov 50-325-40 mg 1 tab PO DAILY PRN cholecalciferol (vitamin D3) 50 mcg PO DAILY clonidine HCl 0.1 mg PO DAILY PRN hydroxyzine HCl 10 mg orally may take one tablet up to 5 times a day as needed for anxiety at least 2 hours apart; ibuprofen mg PO 3XD lurasidone (Latuda) 60 mg PO DAILY meclizine 25 mg PO DAILY PRN quetiapine (Seroquel) 150 mg (1.5 x 100 mg) PO BEDTIME tamsulosin 0.4 mg PO BEDTIME 30 days HPI- Psychiatric Chief Complaint: f/u consultation HPI Narrative: pt reports she is doing a little better; she went to ED at [facility] after last visit and they monitored her then released her; she reports compliance with meds; she is meeting with therapit on regulalr basis but therapist on vacation soon; pt reports mother hasn't started chemo yet. she is not getting along with brother as well; she denies SI or HI. she is still struggling to eat and drink fluids. Past Psychiatric History: 2x 10/04/24-10/06/24 for overdose and again 10/11/24 - 10/18/24 [facility] 10/18-11/03/24 Hospitalized October 2024 at [place] Hospitalized x2 in 2023 at [place] [facility] at [facility] primarily for eating disorder at age 18. Patient reports multiple hospitalizations for severe low weight and protein in her urine but these hospitalizations were on medical units. In 2021 the patient was in [facility] Emergency room and seen by [facility] and crisis after she was found wandering the streets she was expressing paranoid ideation stating that her family was trying to poison her she also reported at that time hearing evil voices that are head she reports she was talking to Kade and making statements I am and I am dying they are trying to kill me Mental Status Exam Mental Status Exam Patient Appearance: Disheveled and Appropriate Patient Orientation: Person, Place, Time and Situation Level of Consciousness: Awake, Appropriate and Alert Patient Behavior: Appropriate and Cooperative Mood Description: Depressed, Anxious and Flat Affect Description: Depressed, Anxious and Flat Patient Cognition Impaired: No Ability to Follow Directions: Fair Speech Pattern: Clear and Soft-Spoken Memory Description: Intact Hallucinations: None Delusions: Not Present Thought Process: Goal Oriented Thought Content: positive for [place] and positive for Goal Oriented Judgement: Fair Telehealth Telehealth Telehealth Platform: Other (please specify) (FX Aligned) Location of provider rendering services: practice address Location of patient: address on file Patient Identification confirmed using: Name, : Yes Telehealth method: video Patient verbally consented to treatment: Yes Patient verbally consented to billing insurance company: Yes Patient informed of any privacy concerns related to visit: Yes Minutes spent on Phone/Video with Pt.: 25 Assessment and Plan Assessment & Plan (1) MDD (major depressive disorder), recurrent severe, without psychosis: Status: Acute Code(s): F33.2 - Major depressive disorder, recurrent severe without psychotic features Plan Medications: Refilled quetiapine (Seroquel) 150 mg (1.5 x 100 mg) PO BEDTIME 14 tabs 2RF clonidine HCl 0.1 mg PO DAILY PRN 14 tabs 2RF anxiety lurasidone (Latuda) must administer with food (at least 350 calories) 60 mg PO DAILY 14 tabs 2RF Counseling and coordination of Care Pt. Self Management counseling: Med illness tx adherence Medication management counseling: Side effects and Other (need for medical intervention) Diagnosis and Prognosis Counseling: Prognosis over time Details: I spent 30 minutes reviewing the record, seeing the patient and documenting in the medical record. Counseling provided to the patient/caregiver as outlined below. Addressed patient/caregiver concerns regarding current medication regime including effective adherence. Addressed patient/caregiver concerns regarding diagnosis and prognosis including accuracy of diagnosis, prognosis over time, impact of diagnosis. Addressed patient/caregiver concerns regarding impact of recent stressors. [facility] Medical History Anorexia Left wrist injury Scoliosis Swelling Osteoporosis Arthritis Asthma Mood disorder Indwelling Joseph catheter present MDD (major depressive disorder), recurrent severe, without psychosis Sacral nerve stimulator present Rectocele Juvenile osteoporosis Compression fx, lumbar spine History of wrist fracture Myofascial pain syndrome Benzodiazepine dependence Anxiety and depression Surgical History History of vaginal surgery History of bladder surgery H/O wrist surgery History of left knee surgery History of right knee surgery History of brain surgery History of placement of ear tubes H/O cystoscopy Family History Mother High blood pressure Cardiovascular disease Father Prostate cancer Social History (Updated 12/27/24 @ 13:05 by Kylie Woodard MA) Household Members: Family Household Members Other:: discharged from today, going to med surg post op Housing: House Are you a primary patient care assistant to a significant other at home: No Do you presently have visiting nurse or other home services: No Alcohol intake: former Comment: oob with steady gait Patient Tobacco Use Status: Current everyday Tobacco user Tobacco use type: Cigarette Cigarette Packs Per Day: 3 Cigarettes Per Day: 40.0 Years Smoked: Over 20 years e-Cigarette/Vaping Use: Currently Using Second Hand Smoke Exposure: No Substance Use Type: Opiates service: No Current occupational status: disabled Current occupational exposures/hazards: No Sexual orientation: Straight/Heterosexual Cognitive needs: No Hearing needs: No Vision needs: No Social History: Patient reports she did have friends growing up and she was straight a student until she left school at the age of 16 due to anorexia she had to drop out of school due to multiple admissions at [facility] she is socially isolated currently Substance History: denies any hx Trauma History: hx of trauma in addition to Multiple surgeries Coding Level of Care Code Tele Est Pt Level 4 (45438) Diagnoses MDD (major depressive disorder), recurrent severe, without psychosis F33.2
--- OUTSIDE RECORDS SUMMARY | 2025-03-07 16:22 | XMS_ITS | Encounter Summary ---
Author Organization [facility] Address [address] [place] [address] Care Team Providers Care Marketing And Communications Officer Name Role Phone Unavailable Primary Care Provider Unavailabl e Encounter Details Date Type Department Care Team (Late st Contact Info) Description 08/10/2024 Lab Requisition [facility] - Main Lab [address] [facility] [place] [address] Shavonne Zavaleta, MAGDA [address] [place] [address] Social History Tobacco Use Types [...] to direct LDL Lab Routine Ordered: 024 [place] level Lab Routine Ordered: Hemoglobin A1c Lab Routine Ordered: 1 10/11/2023 documented as of this encounter Visit Diagnoses Not on filedocumented in this encounter
== END 2025-03-07 15:38 | disposition home or self-care (01) ==
PROVIDERS: PCP Nurse Practitioner Family; Visit Provider Clinical Nurse Specialist Psychiatric/Mental Health
DX: F33.2 Major depressive disorder, recurrent severe without psychotic features (principal)
CPT/HCPCS: 99214

== ENCOUNTER 2025-03-23 15:23 | Outpatient (AMB) | payer MEDICARE, MEDICAID, SELFPAY ==
--- NOTE | 2025-03-23 15:02 | MHC.OFFVISPS ---
Intake Intake Visit Reasons: f/u consultation Skidder Runner Required: No Allergies azithromycin Allergy (Verified 12/27/24 13:36) Itching levofloxacin (From Levaquin) Allergy (Verified 12/27/24 13:36) Nightmare nitrofurantoin (From Macrodantin) Allergy (Verified 12/27/24 13:36) Itching Medication List - Last Reconciled 03/23/25 by Barbi Rivera, SANA acetaminophen 975 mg (3 x 325 mg) PO Q8H albuterol sulfate 90 mcg/actuation 2 puffs inhalation QID PRN 30 days ascorbic acid (vitamin C) (Vitamin C) 1,000 mg PO DAILY 30 days bethanechol chloride 25 mg PO TID 30 days baiayixodf-gaypcqagthkhi-ojhy 50-325-40 mg 1 tab PO DAILY PRN cholecalciferol (vitamin D3) 50 mcg PO DAILY clonidine HCl 0.1 mg PO DAILY PRN hydroxyzine HCl 10 mg orally may take one tablet up to 5 times a day as needed for anxiety at least 2 hours apart; ibuprofen mg PO 3XD lurasidone (Latuda) 60 mg PO DAILY meclizine 25 mg PO DAILY PRN quetiapine (Seroquel) 150 mg (1.5 x 100 mg) PO BEDTIME tamsulosin 0.4 mg PO BEDTIME 30 days HPI- Psychiatric Chief Complaint: f/u consultation HPI Narrative: pt reports she is sick with a tooth infection; she needs to have several teeth taken out; she is on antibiotic now. she reports she is very anxious. she reports compliance with meds; she is meeting with therapist weekly. pt reports mother is in more pain and that the cancer may have metastasized more. Her mother has another scan coming up- she hasn't started chemo yet. Pt is not getting along with brother as well- he is being more irritable and critical of her; she denies SI or HI. she is still struggling to eat but drinking more fluids. she denies SI and HI. Past Psychiatric History: 2x 10/04/24-10/06/24 for overdose and again 10/11/24 - 10/18/[address] [facility] 10/18-11/03/24 Hospitalized October 2024 at [place] Hospitalized x2 in 2023 at [place] [facility] [place] [facility] primarily for eating disorder at age 18. Patient reports multiple hospitalizations for severe low weight and protein in her urine but these hospitalizations were on medical units. In 2021 the patient was in [facility] Emergency room and seen by [facility] and crisis after she was found wandering the streets she was expressing paranoid ideation stating that her family was trying to poison her she also reported at that time hearing evil voices that are head she reports she was talking to Kade and making statements I am and I am dying they are trying to kill me Subjective Subjective Subjective Medication Compliance: Yes Side effects from medications: No Review of Systems Medical Review of Systems: unchanged Mental Status Exam Mental Status Exam Patient Appearance: Disheveled and Appropriate Patient Orientation: Person, Place, Time and Situation Level of Consciousness: Awake, Appropriate and Alert Patient Behavior: Appropriate and Cooperative Mood Description: Withdrawn, Constricted, Depressed, Anxious and Flat Affect Description: Withdrawn, Constricted, Depressed, Anxious and Flat Patient Cognition Impaired: No Ability to Follow Directions: Fair Speech Pattern: Clear and Soft-Spoken Memory Description: Intact Hallucinations: None Delusions: Not Present Thought Process: Goal Oriented Thought Content: positive for [place] and positive for Goal Oriented Judgement: Fair Telehealth Telehealth Telehealth Platform: Other (please specify) ([email or web address]) Location of provider rendering services: practice address Location of patient: address on file Patient Identification confirmed using: Name, : Yes Telehealth method: video Patient verbally consented to treatment: Yes Patient verbally consented to billing insurance company: Yes Patient informed of any privacy concerns related to visit: Yes Minutes spent on Phone/Video with Pt.: 23 Assessment and Plan Assessment & Plan (1) MDD (major depressive disorder), recurrent severe, without psychosis: Status: Acute Code(s): F33.2 - Major depressive disorder, recurrent severe without psychotic features (2) PTSD (post-traumatic stress disorder): Status: Acute Code(s): F43.10 - Post-traumatic stress disorder, unspecified (3) Osteogenesis imperfecta: Status: Acute Code(s): Q78.0 - Osteogenesis imperfecta (4) Myofascial pain syndrome: Status: Acute Code(s): M79.18 - Myalgia, other site Plan increase clonidine to bid prn anxiety continue hydroxyzine prn anxiety continue seroquel 150mg at bedtime continue latuda 60mg daily Medications: Changed From clonidine HCl 0.1 mg PO DAILY PRN 14 tabs 2RF anxiety To clonidine HCl 0.1 mg PO BID PRN 14 tabs 4RF anxiety 7 days Counseling and coordination of Care Pt. Self Management counseling: Med illness tx adherence, Nutrition education and improvement and Sleep hygiene Medication management counseling: Side effects and Other (need for medical intervention) Diagnosis and Prognosis Counseling: Accuracy of diagnosis, Prognosis over time, Impact of diagnosis on life functions, Impact of family relationship, Problematic behaviors secondary to diagnosis and Adequacy of current interventions Details: I spent 30 minutes reviewing the record, seeing the patient and documenting in the medical record. Counseling provided to the patient/caregiver as outlined below. Addressed patient/caregiver concerns regarding current medication regime including effective adherence. Addressed patient/caregiver concerns regarding diagnosis and prognosis including accuracy of diagnosis, prognosis over time, impact of diagnosis. Addressed patient/caregiver concerns regarding impact of recent stressors. [facility] Medical History Anorexia Left wrist injury Scoliosis Swelling Osteoporosis Arthritis Asthma Mood disorder Indwelling Jsoeph catheter present MDD (major depressive disorder), recurrent severe, without psychosis Sacral nerve stimulator present Rectocele Juvenile osteoporosis Compression fx, lumbar spine History of wrist fracture Myofascial pain syndrome Benzodiazepine dependence Anxiety and depression Surgical History History of vaginal surgery History of bladder surgery H/O wrist surgery History of left knee surgery History of right knee surgery History of brain surgery History of placement of ear tubes H/O cystoscopy Family History Mother High blood pressure Cardiovascular disease Father Prostate cancer Social History (Updated 12/27/24 @ 13:05 by Kylie Woodard MA) Household Members: Family Household Members Other:: discharged from today, going to med surg post op Housing: House Are you a primary neonatal intensive care nurse to a significant other at home: No Do you presently have visiting nurse or other home services: No Alcohol intake: former Comment: oob with steady gait Patient Tobacco Use Status: Current everyday Tobacco user Tobacco use type: Cigarette Cigarette Packs Per Day: 3 Cigarettes Per Day: 40.0 Years Smoked: Over 20 years e-Cigarette/Vaping Use: Currently Using Second Hand Smoke Exposure: No Substance Use Type: Opiates service: No Current occupational status: disabled Current occupational exposures/hazards: No Sexual orientation: Straight/Heterosexual Cognitive needs: No Hearing needs: No Vision needs: No Social History: Patient reports she did have friends growing up and she was straight a student until she left school at the age of 16 due to anorexia she had to drop out of school due to multiple admissions at [facility] she is socially isolated currently Substance History: denies any hx Trauma History: hx of trauma in addition to Multiple surgeries Coding Level of Care Code Tele Est Pt Level 4 (79943) Diagnoses MDD (major depressive disorder), recurrent severe, without psychosis F33.2 PTSD (post-traumatic stress disorder) F43.10 Osteogenesis imperfecta Q78.0 Myofascial pain syndrome M79.18
--- OUTSIDE RECORDS SUMMARY | 2025-03-23 15:28 | XMS_ITS | Encounter Summary ---
Author Organization [facility] Address [address] [place] [address] Care Team Providers Care Fabric Inspector Name Role Phone Unavailable Primary Care Provider Unavailabl e Encounter Details Date Type Department Care Team (Late st Contact Info) Description 08/10/2024 Lab Requisition [facility] - Main Lab [address] [facility] [place] [address] Shavonne Zavaleta, MAGDA [address] [place] [address] Social History Tobacco Use Types [...] to direct LDL Lab Routine Ordered: 024 [place] level Lab Routine Ordered: Hemoglobin A1c Lab Routine Ordered: 1 10/11/2023 documented as of this encounter Visit Diagnoses Not on filedocumented in this encounter
--- OUTSIDE RECORDS SUMMARY | 2025-03-23 15:28 | XMS_ITS | Clinical Summary ---
Author Organization [facility] Address [address] [place] [phone] Phone Care Team Providers Care Outside Medical Sales Representative Name Role Phone Cassia Alanis Primary Care Provider Allergies Active Allergy Reactions Criticality Noted Date Comments Azithromycin 09/01/2023 Levofloxacin 09/01/2023 Nitrofurantoin Macrocrystal 09/01/19 24 Medications traZODone (DESYREL) 100 MG tablet TAKE 2 TABLETS BY MOUTH AT BEDTIME NEEDED FOR INSOMNIA 3 Active VITAMIN B-2 100 mg Tab Take 1 tablet by mouth every morning. 3 Active OXYCONTIN 30 mg 12 hour tablet TAKE 1 TABLET BY MOUTH EVERY DAY FOR 28 DAYSDUE 08/25/23 4 Active oxyCODONE 30 MG immediate release tablet TAKE 1 TABLET BY MOUTH 4 TIMES A DAY FOR 28 DAYSDUE 08/27/23 Active OLANZapine (ZYPREXA) 20 MG tablet olanzapine 20 mg tablet Active nicotine polacrilex (COMMIT) 2 MG lozenge nicotine (polacrilex) 2 mg buccal lozenge Active naproxen (NAPROSYN) 500 MG tablet 500 mg. Active magnesium oxide 500 mg Tab Take 1 tablet by mouth every morning. 4 Active LORazepam (ATIVAN) 1 MG tablet TAKE 1 TABLET TWICE A DAY NEEDED FOR 30 DAYS. Active lidocaine (LIDODERM) 5 % lidocaine 5 % topical patch Active levonorgestrel and ethynyl estradiol (SEASONIQUE) 0.15 mg-30 mcg (84)/10 mcg (7) 3MPk 1 tablet. Active ibuprofen (ADVIL,MOTRIN) 800 MG tablet Take 800 mg by mouth 3 (three) times a day as needed. Active hydrOXYzine (ATARAX) 50 MG tablet TAKE 1 TAB TWICE A DAY BY MOUTH NEEDED. Active fentaNYL (DURAGESIC) 100 mcg/hr 1 patch to skin Act luis HYDROmorphone (DILAUDID) 4 MG tablet hydromorphone 4 mg tablet Active DULoxetine (CYMBALTA) 30 MG capsule Take 1 capsule by mouth every morning. Active cyclobenzaprin e (FLEXERIL) 10 MG tablet Take 10 mg by mouth 3 (three) times a day. Active VENTOLIN HFA 90 mcg/actuation inhaler Inhale 2 puffs into the lungs 4 (four) times a day as needed. Active albuterol 2.5 mg /3 mL (0.083 %) nebulizer solution albuterol sulfate 2.5 mg/3 mL (0.083 %) solution for nebulization Active rizatriptan (MAXALT) 5 MG tablet Take 5 mg by mouth as needed for migraine. 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 Not on angel e 12/19/2022 Are you concerned about learning? Not on file 12/19/2022 No 12/19/2022 No 12/19/2022 Digital Access Answer Date Recorded No 01/19/2023 No 01/19/2023 Reliable internet access at home? Not on file 01/19/2023 Device with a working camera? Not on file Comments Unknown Sex and Gender Information Value Date Recorded Sex Assigned at Not on file Legal Sex Female 10:32 AM EDT Gender Identity Not on file Sexual Orientation Not on file Last Filed Vital Signs Vital Sign Reading Time Taken Comments Blood Pressure 117/77 02/09/2015 1:18 AM EDT Pulse 82 02/09/2015 1:18 AM EDT Temperature - - Respiratory Rate - - Oxygen Saturation - - Inhaled Oxygen Concentration - - Weight 50.8 kg (112 lb) 02/09/2015 1:18 AM EDT Height 154.3 cm (5' 0.75 ) 02/09/2015 1:18 AM ED T Body Mass Index 21.34 02/09/2015 1:18 AM EDT Plan of Treatment Health Maintenance Due Date Last Done Comments DEPRESSION SCREENING 1997 SMOKING Hx and SMOKELESS TOBACCO SCREENING 1998 HEPATITIS C SCREENING 2003 HIV ONE-TIME SCREENING (18-6 5 YEARS) 2003 PNEUMOCOCCAL VACCINES (0-49 years) (1 of 2 - PCV) 2004 PAP SMEAR 2006 Adult Td,Tdap Booster 10/22/2021 10/23/2011 , 01/18/2008 COVID-19 VACCINE (1 - 2023-2 5 season) 2024 HEPATITIS A VACCINES Aged Out No long er eligible based on patient's age to complete this topic HIB VACCINES Aged Out No longer eligi ble based on patient's age to complete this topic MENINGOCOCCAL VACCINES (ACWY) Aged Out No longer eligible based on patient's age to complete this topic MENINGOCOCCAL VACCINES (B) Aged Out N o longer eligible based on patient's age to complete this topic Medical Devices Not on file Insurance [employer] MEDICARE PART A & [place] PART A & [place] [address] [address] [place] [address] MEDICARE PART A & B Care Teams Outside Medical Sales Representative Relationship Specialty Start Date End Date Cassia Alanis DO [address] [place] [id number] [email or web address] PCP - General Family Medicine 09/01/23 Additional Source Comments The information contained in this document represents components of the legal health record. It is not the complete legal health record.[facility]
== END 2025-03-23 15:24 | disposition home or self-care (01) ==
LOC: HO.HOP 15:23
PROVIDERS: PCP Nurse Practitioner Family; Visit Provider Clinical Nurse Specialist Psychiatric/Mental Health
DX: F33.2 Major depressive disorder, recurrent severe without psychotic features (principal); F43.10 Post-traumatic stress disorder, unspecified; Q78.0 Osteogenesis imperfecta; M79.18 Myalgia, other site
CPT/HCPCS: 99214

== ENCOUNTER 2025-04-06 13:58 | Outpatient (AMB) | payer MEDICARE, MEDICAID, SELFPAY ==
--- NOTE | 2025-04-06 12:05 | A.OFFPSYCH_ITS ---
Intake Intake Visit Reasons: f/u consultation Professional Bass Fisher Required: No Allergies azithromycin Allergy (Verified 12/27/24 13:36) Itching levofloxacin (From Levaquin) Allergy (Verified 12/27/24 13:36) Nightmare nitrofurantoin (From Macrodantin) Allergy (Verified 12/27/24 13:36) Itching Medication List - Last Reconciled 04/06/25 by Barbi Rivera, SANA acetaminophen 975 mg (3 x 325 mg) PO Q8H albuterol sulfate 90 mcg/actuation 2 puffs inhalation QID PRN 30 days ascorbic acid (vitamin C) (Vitamin C) 1,000 mg PO DAILY 30 days bethanechol chloride 25 mg PO TID 30 days jhbcehwomm-blipitklyqcke-afap 50-325-40 mg 1 tab PO DAILY PRN cholecalciferol (vitamin D3) 50 mcg PO DAILY clonidine HCl 0.1 mg PO BID PRN 7 days hydroxyzine HCl 10 mg orally may take one tablet up to 5 times a day as needed for anxiety at least 2 hours apart; ibuprofen mg PO 3XD lurasidone (Latuda) 60 mg PO DAILY meclizine 25 mg PO DAILY PRN quetiapine (Seroquel) 150 mg (1.5 x 100 mg) PO BEDTIME tamsulosin 0.4 mg PO BEDTIME 30 days HPI- Psychiatric Chief Complaint: f/u consultation HPI Narrative: Pt see for follow up re: depression and nanxiety. she reports she is having a hard time falling asleep. she is less anxious. she reports compliance with meds; she is meeting with therapist weekly. pt reports mother is in more pain. Pt is getting along with brother better. she denies SI or HI. she is still str uggling to eat and drinking more fluids but says doing a little better. she denies SI and HI. Past Psychiatric History: 2x 10/04/24-10/06/24 for overdose and again 10/11/24 - 10/18/24 [facility] 10/18-11/03/24 Hospitalized October 2024 at [place] Hospitalized x2 in 2023 at [place] [facility] at [facility] primarily for eating disorder at age 18. Patient reports multiple hospitalizations for severe low weight and protein in her urine but these hospitalizations were on medical units. In 2021 the patient was in [facility] Emergency room and seen by [facility] and crisis after she was found wandering the streets she was expressing paranoid ideation stating that her family was trying to poison her she also reported at that time hearing evil voices that are head she reports she was talking to Kade and making statements I am and I am dying they are trying to kill me Subjective Subjective Subjective Medication Compliance: Yes Side effects from medications: No Review of Systems Medical Review of Systems: unchanged Mental Status Exam Mental Status Exam Patient Appearance: Disheveled and Appropriate Patient Orientation: Person, Place, Time and Situation Level of Consciousness: Awake, Appropriate and Alert Patient Behavior: Appropriate and Cooperative Mood Description: Withdrawn, Constricted, Depressed, Anxious and Flat Affect Description: Withdrawn, Constricted, Depressed, Anxious and Flat Patient Cognition Impaired: No Ability to Follow Directions: Fair Speech Pattern: Clear and Soft-Spoken Memory Description: Intact Hallucinations: None Delusions: Not Present Thought Process: Goal Oriented Thought Content: positive for [place] and positive for Goal Oriented Judgement: Fair Telehealth Telehealth Telehealth Platform: Other (please specify) ([email or web address]) Location of provider rendering services: practice address Location of patient: address on file Patient Identification confirmed using: Name, : Yes Telehealth method: video Patient verbally consented to treatment: Yes Patient verbally consented to billing insurance company: Yes Patient informed of any privacy concerns related to visit: Yes Minutes spent on Phone/Video with Pt.: 16 Assessment and Plan Assessment & Plan (1) MDD (major depressive disorder), recurrent severe, without psychosis: Status: Acute Code(s): F33.2 - Major depressive disorder, recurrent severe without psychotic features (2) PTSD (post-traumatic stress disorder): Status: Acute Code(s): F43.10 - Post-traumatic stress disorder, unspecified (3) Osteogenesis imperfecta: Status: Acute Code(s): Q78.0 - Osteogenesis imperfecta (4) Myofascial pain syndrome: Status: Acute Code(s): M79.18 - Myalgia, other site Plan Continue clonidine to bid prn anxiety continue hydroxyzine prn anxiety continue seroquel 150mg at bedtime and add 50mg at bedtime for anxiety and sleep continue latuda 60mg daily Medications: New quetiapine (Seroquel) 50 mg PO BEDTIME 30 tabs 2RF Refilled clonidine HCl 0.1 mg PO BID PRN 14 tabs 4RF anxiety 7 days hydroxyzine HCl 10 mg orally may take one tablet up to 5 times a day as needed for anxiety at least 2 hours apart; 40 tabs 2RF Counseling and coordination of Care Pt. Self Management counseling: Med illness tx adherence, Nutrition education and improvement and Sleep hygiene Medication management counseling: Side effects and Other (need for medical intervention) Diagnosis and Prognosis Counseling: Accuracy of diagnosis, Prognosis over time, Impact of diagnosis on life functions, Impact of family relationship, Problematic behaviors secondary to diagnosis and Adequacy of current interventions Details: I spent 25 minutes reviewing the record, seeing the patient and documenting in the medical record. Counseling provided to the patient/caregiver as outlined below. Addressed patient/caregiver concerns regarding current medication regime including effective adherence. Addressed patient/caregiver concerns regarding diagnosis and prognosis including accuracy of diagnosis, prognosis over time, impact of diagnosis. Addressed patient/caregiver concerns regarding impact of recent stressors. [facility] Medical History Anorexia Left wrist injury Scoliosis Swelling Osteoporosis Arthritis Asthma Mood disorder Indwelling Joseph catheter present MDD (major depressive disorder), recurrent severe, without psychosis Sacral nerve stimulator present Rectocele Juvenile osteoporosis Compression fx, lumbar spine History of wrist fracture Myofascial pain syndrome Benzodiazepine dependence Anxiety and depression Surgical History History of vaginal surgery History of bladder surgery H/O wrist surgery History of left knee surgery History of right knee surgery History of brain surgery History of placement of ear tubes H/O cystoscopy Family History Mother High blood pressure Cardiovascular disease Father Prostate cancer Social History (Updated 12/27/24 @ 13:05 by Kylie Woodard MA) Household Members: Family Household Members Other:: discharged from today, going to med surg post op Housing: House Are you a primary care mgr to a significant other at home: No Do you presently have visiting nurse or other home services: No Alcohol intake: former Comment: oob with steady gait Patient Tobacco Use Status: Current everyday Tobacco user Tobacco use type: Cigarette Cigarette Packs Per Day: 3 Cigarettes Per Day: 40.0 Years Smoked: Over 20 years e-Cigarette/Vaping Use: Currently Using Second Hand Smoke Exposure: No Substance Use Type: Opiates service: No Current occupational status: disabled Current occupational exposures/hazards: No Sexual orientation: Straight/Heterosexual Cognitive needs: No Hearing needs: No Vision needs: No Social History: Patient reports she did have friends growing up and she was straight a student until she left school at the age of 16 due to anorexia she had to drop out of school due to multiple admissions at [facility] she is socially isolated currently Substance History: denies any hx Trauma History: hx of trauma in addition to Multiple surgeries Coding Level of Care Code Tele Est Pt Level 3 (85689) Diagnoses MDD (major depressive disorder), recurrent severe, without psychosis F33.2 PTSD (post-traumatic stress disorder) F43.10 Osteogenesis imperfecta Q78.0 Myofascial pain syndrome M79.18
--- OUTSIDE RECORDS SUMMARY | 2025-04-06 13:26 | XMS_ITS | Clinical Summary ---
Author Organization [facility] Address [address] [place] [phone] Phone Care Team Providers Care Toter Name Role Phone Cassia Alanis Primary Care [...] topic Medical Devices Not on file Insurance [employer] MEDICARE PART A & B [place] MED[place] [address] [place] [address] MEDICARE PART A & B Care Teams Toter Relationship Specialty Start Date End Date Cassia Alanis DO [address] [place] [id number] [email or web address] PCP - General Family Medicine 09/01/23 Additional Source Comments The information contained in this document represents components of the legal health record. It is not the complete legal health record.[facility]
--- OUTSIDE RECORDS SUMMARY | 2025-04-06 13:26 | XMS_ITS | Encounter Summary ---
Author Organization [facility] Address [address] [place] [address] Care Team Providers Care Mounted Police Name Role Phone Unavailable Primary Care Provider Unavailabl e Encounter Details Date Type Department Care Team (Late st Contact Info) Description 08/10/2024 Lab Requisition [facility] - Main Lab [address] [facility] [place] [address] Shavonne Zavaleta, MAGDA [address] [place] [address] Social History Tobacco Use Types [...] to direct LDL Lab Routine Ordered: 024 Kramer level Lab Routine Ordered: Hemoglobin A1c Lab Routine Ordered: 1 10/11/2023 documented as of this encounter Visit Diagnoses Not on filedocumented in this encounter
== END 2025-04-06 14:00 | disposition home or self-care (01) ==
PROVIDERS: PCP Nurse Practitioner Family; Visit Provider Clinical Nurse Specialist Psychiatric/Mental Health
DX: F33.2 Major depressive disorder, recurrent severe without psychotic features (principal); F43.10 Post-traumatic stress disorder, unspecified; Q78.0 Osteogenesis imperfecta; M79.18 Myalgia, other site
CPT/HCPCS: 99213

== ENCOUNTER 2025-04-10 08:28 | Outpatient (AMB) | payer MEDICARE, MEDICAID, SELFPAY ==
--- NOTE | 2025-04-10 08:31 | A.OFFPC_ITS ---
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 Required: No Is last menstrual period known: Yes Last menstrual period: 04/02/25 Post menopausal: No Patient : No Allergies azithromycin Allergy (Verified 04/10/25 08:43) Itching levofloxacin (From Levaquin) Allergy (Verified 04/10/25 08:43) Nightmare nitrofurantoin (From Macrodantin) Allergy (Verified 04/10/25 08:43) Itching Medication List - Last Reconciled 04/10/25 by Debi Machado CNP acetaminophen 975 mg (3 x 325 mg) PO Q8H albuterol sulfate 90 mcg/actuation 2 puffs inhalation QID PRN 30 days ascorbic acid (vitamin C) (Vitamin C) 1,000 mg PO DAILY 30 days pkvjpyyses-tezbcfjbxclip-vjiu 50-325-40 mg 1 tab PO DAILY PRN cholecalciferol (vitamin D3) 50 mcg PO DAILY clonidine HCl 0.1 mg PO BID PRN 7 days hydroxyzine HCl 10 mg orally may take one tablet up to 5 times a day as needed for anxiety at least 2 hours apart; ibuprofen mg PO 3XD lurasidone (Latuda) 60 mg PO DAILY meclizine 25 mg PO DAILY PRN quetiapine (Seroquel) 50 mg PO BEDTIME quetiapine 150 mg PO BEDTIME tamsulosin 0.4 mg PO BEDTIME 30 days Tobacco use date assessed: 04/10/25 Dental Screening Dental Screen Date: 04/10/25 Did you have a dental visit in the last 12 months?: Yes Did you have a dental problem in the last 6 months where you did not have access to dental care?: No Was dental information given to patient?: Patient has dentist HPI HPI Comments History of Present Illness0 Details 39-year-old female presents with complai nts of very itchy rash to her face, chest, and hands x 5 days. Calamine lotion and hydrocortisone cream have not provided relief. She also reports 5 episodes of nonbloody projectile vomiting x 1 week. She admits to self induced vomiting with last one being 3-4 days ago. Denies nausea, diarrhea, constipation, or abdominal pain. She refused to be weighed today because she thinks I am heavy. [facility] Medical History Anorexia Left wrist injury Scoliosis Swelling Osteoporosis Arthritis Asthma Mood disorder Indwelling Joseph catheter present MDD (major depressive disorder), recurrent severe, without psychosis Sacral nerve stimulator present Rectocele Juvenile osteoporosis Compression fx, lumbar spine History of wrist fracture Myofascial pain syndrome Benzodiazepine dependence Anxiety and depression Surgical History History of vaginal surgery History of bladder surgery H/O wrist surgery History of left knee surgery History of right knee surgery History of brain surgery History of placement of ear tubes H/O cystoscopy Family History Mother High blood pressure Cardiovascular disease Father Prostate cancer Social History (Updated 12/27/24 @ 13:05 by Kylie Woodard MA) Household Members: Family Household Members Other:: discharged from today, going to med surg post op Housing: House Are you a primary home care scheduler to a significant other at home: No Do you presently have visiting nurse or other home services: No Alcohol intake: former Comment: oob with steady gait Patient Tobacco Use Status: Current everyday Tobacco user Tobacco use type: Cigarette Cigarette Packs Per Day: 3 Cigarettes Per Day: 40.0 Years Smoked: Over 20 years e-Cigarette/Vaping Use: Currently Using Second Hand Smoke Exposure: No Substance Use Type: Opiates service: No Current occupational status: disabled Current occupational exposures/hazards: No Sexual orientation: Straight/Heterosexual Cognitive needs: No Hearing needs: No Vision needs: No Female Reproductive History Menstrual Date of last menstrual period: 04/02/25 Questionnaire Thrive Questionnaire Date Thrive assessed: 09/09/24 I am a: Patient What is your living situation today?: I do not have a steady places to live I choose not to answer this question Within the past 12 months, did the food you bought not last and you didn't have the money to get more?: Never true Within the past 12 months, did you worry whether your food would run out before you got money to buy more?: Never true Do you have trouble paying for medicines?: No Do you have trouble getting transportation to medical appointments?: No Do you have trouble paying your heating and electricity bill?: No Do you have trouble taking care of your child, family member or friend?: No Do you have trouble with day-to-day activities such as bathing, preparing meals, shopping, managing finances, etc.?: No Are you currently unemployed and looking for a job?: No Are you interested in more education?: Yes Please select the resources that you would like help with: Housing/Senior Living Currently or been in a relationship where the following occur: I choose not to answer THRIVE Score: 1 ANIBAL-7 AMB Questionnaire ANIBAL-7 Date ANIBAL - 7 assessed: 12/02/24 Source: Developed by Drs. Myles Mccoy, Annalisa Holguin, Jaime Villasenor and colleagues, with an educational iqra from [employer]. Review of Systems Const Details: Const Denies chills, Denies fatigue, Denies fever(s), Denies headache(s) and Denies weakness ENT Denies dizziness and Denies headache(s) Card Denies chest pain, Denies lightheadedness, Denies dyspnea and Denies other (Palpitations) Resp Denies cough, Denies dyspnea, Denies wheezing and Denies other ( shortness of breath) GI Denies abdominal pain, Denies melena, Denies hematochezia, Denies change in bowel habits, Denies dyspepsia and Denies nausea Reports as per HPI Musc Denies abnormal gait, Denies myalgias, Denies arthralgias, Denies numbness and Denies tingling Skin/Breast Reports as per HPI Neuro Denies abnormal gait, Denies dizziness, Denies headache(s), Denies memory loss, Denies numbness, Denies Sensory deficit (Neuro), Denies tingling and Denies weakness Psych Denies anxiety, Denies depression, Denies memory loss Endo Denies cold intolerance, Denies fatigue, Denies heat intolerance, Denies polydipsia and Denies polyuria Aller/Immun Denies wheezing Physical exam (Primary Care) Vital Signs: Last Vital Signs Temp 98.7 F 04/10/25 08:37 Pulse 70 08/18/25 08:37 Resp 16 04/10/25 08:37 BP 111/76 04/10/25 08:37 Pulse Ox 98 04/10/25 08:37 Oxygen Delivery Method Room Air 04/10/25 08:37 Tobacco/Smoking Status: Tobacco use Status Tobacco use date assessed 04/10/25 04/10/25 08:40 Patient Tobacco Use Status Current everyday Tobacco 04/10/25 08:33 Tobacco use type Cigarette 04/10/25 08:33 e-Cigarette/Vaping Use Currently Using 04/10/25 08:33 Thrive Assessment: Date of Thrive Assessment Date Thrive assessed 09/09/24 04/10/25 08:33 Currently or been in a relationship where the following occur: I choose not to answer Const Other: General: no acute distress and well developed Nutritional Appearance: well nourished Orientation/consciousness: patient oriented x3 HENMT Head: Yes normocephalic and Yes atraumatic Eyes General: appearance normal, both eyes and all related structures Pupils: Equal, round and reactive pupils present EOM: EOMs intact bilaterally Resp Effort & Inspection: normal respiratory effort Auscultation: clear to auscultation bilaterally Cardio Rate: regular rate Rhythm: regular rhythm Heart sounds: S1 normal heart sound present, S2 normal heart sound present, no gallops, no murmurs and no rubs GI Palpation (GI): No Abdominal aortic bruit present, Soft to palpation, nontender, No hepatosplenomegaly present and No Rebound tenderness present Auscultation: normal bowel sounds General: Yes no CVA tenderness Back/Spine/Pelvis Back: no CVA tenderness Cervical Spine: cervical ROM normal and No Cervical spine tenderness Thoracic/Lumbar Spine: thoraco-lumbar ROM normal, No pain with thoraco-lumbar ROM, No thoracic spinal tenderness and No lumbar spinal tenderness Extrem General: Yes normal to inspection, No edema and No calf tenderness Skin General: warm and dry. Normal skin color. Normal skin turgor Lesions: no lesions Rashes: Few, slightly raised, red rash with scab noted around the mouth, chest, and dorsum of both hands, no blisters or pustules Trauma: no lacerations or abrasions Wounds: no wounds Nails: normal Neuro General: patient oriented x3, gait normal and no focal neuro deficit Cranial nerves: Yes Equal, round and reactive pupils present Cognition (Neuro): normal cognition Gait exam (Neuro): Normal gait present Sensory Exam: No Sensory deficit (Neuro) Psych Appearance: grossly normal Affect: normal affect Attitude: cooperative Thought process: Normal thought process present Coding Level of Care Code Est Pt Level 4 (08694) Diagnoses Rash R21 Vomiting R11.10 Assessment & Plan Assessment & Plan (1) Rash: Code(s): R21 - Rash and other nonspecific skin eruption Category: Medical Plan: Few, slightly raised, red rash with scab noted around the mouth, chest, and dorsum of both hands, no blisters or pustules. Encouraged to take hydroxyzine as needed - also have anti itching benefit. Follow-up with worsening or new signs and symptoms. Verbalized understanding and agreed with the plan. (2) Vomiting: Code(s): R11.10 - Vomiting, unspecified Category: Medical Plan: Reports 5 episodes of nonbloody projectile vomiting x 1 week. She admits to self induced vomiting with last one being 3-4 days ago. Denies nausea, diarrhea, constipation, or abdominal pain. She refused to be weighed today because she thinks I am heavy. No acute symptoms. Encouraged to avoid induced vomiting. Follow-up with worsening or new symptoms. Verbalized understanding and agreed with the plan. Medications: New fluticasone propionate 0.05% 1 appl topical BID PRN 30 grams 0RF itching
[2025-04-10 08:37] VITALS: BP 111/76; PULSE 70; RESP 16; TEMP 37.1; O2SAT 98
--- OUTSIDE RECORDS SUMMARY | 2025-04-10 08:55 | XMS_ITS | Clinical Summary ---
Author Organization [facility] Address [address] [place] [phone] Phone Care Team Providers Care Master Steam Yacht Name Role Phone Cassia Alanis Primary Care Provider [phone] Allergies Active Allergy Reactions Criticality Noted Date [...] topic Medical Devices Not on file Insurance [employer] MEDICARE PART A & B [place] MEDIC[place] PART A & [place] [address] [address] MEDICARE PART A & B Care Teams Master Steam Yacht Relationship Specialty Start Date End Date Cassia Alanis DO [address] [place] [phone] [email or web address] PCP - General Family Medicine 09/01/23 Additional Source Comments The information contained in this document represents components of the legal health record. It is not the complete legal health record.[facility]
--- OUTSIDE RECORDS SUMMARY | 2025-04-10 08:55 | XMS_ITS | Encounter Summary ---
Author Organization [facility] Address [address] [place] [address] Care Team Providers Care Food Crops Farm Hand Name Role Phone Unavailable Primary Care Provider Unavailabl e Encounter Details Date Type Department Care Team (Late st Contact Info) Description 08/10/2024 Lab Requisition [facility] - Main Lab [address] [facility] [place] [address] Shavonne Zavaleta, MAGDA [address] [place] [address] Social History Tobacco Use Types [...] to direct LDL Lab Routine Ordered: 024 Kinnelon level Lab Routine Ordered: Hemoglobin A1c Lab Routine Ordered: 1 10/11/2023 documented as of this encounter Visit Diagnoses Not on filedocumented in this encounter
== END 2025-04-10 10:19 | disposition home or self-care (01) ==
LOC: HO.HMCFM 08:29
PROVIDERS: PCP Nurse Practitioner Family; Visit Provider Nurse Practitioner Family
DX: R21 Rash and other nonspecific skin eruption (principal); R11.10 Vomiting, unspecified

== ENCOUNTER → 2025-04-10 08:28 | Outpatient (BNVA) | payer MEDICARE, MEDICAID, SELFPAY | PROVIDERS: PCP Nurse Practitioner Family; Visit Provider Nurse Practitioner Family | DX: R21 Rash and other nonspecific skin eruption (principal); R11.10 Vomiting, unspecified | CPT/HCPCS: 99212 ==

== ENCOUNTER 2025-04-22 10:30 | Inpatient (IN) | payer MEDICARE, MEDICAID, SELFPAY ==
[2025-04-22] VITALS (9 sets, daily range): BP systolic 114–130; BP diastolic 77–92; PULSE 67–98; RESP 10–18; TEMP 36.3–37.4; O2SAT 95–100; BMI 18.6; BMI 18.8
--- NOTE | 2025-04-22 | ECG_ITS ---
Test Reason : OVERDOSE Blood Pressure : */* mmHG Vent. Rate : 71 BPM Atrial Rate : 71 BPM P-R Int : 124 ms QRS Dur : 90 ms QT Int : 420 ms P-R-T Axes : 67 22 36 degrees QTcB Int : 456 ms Artifact in tracing Normal sinus rhythm with sinus arrhythmia Normal ECG When compared with ECG of 14-Nov-2024 11:17, No significant change was found Referred By: Generic ED Physician Electronically Signed By: RILEY JORGE
--- NOTE | ~2025-04-22 | XR_ITS ---
CLINICAL HISTORY: r o aspiration 2 view chest x-ray Comparison: CR/SR - XR CHEST 2 VIEWS - 11/14/24 11:32 EDT Findings: No consolidation or effusion. Heart size is normal. No acute fracture. IMPRESSION: 1. No acute findings. This document has been electronically signed by: Gerry Apodaca MD on 04/22/2025 12:54:37
--- OUTSIDE RECORDS SUMMARY | 2025-04-22 11:14 | XMS_ITS | Clinical Summary ---
Author Organization [address] Address [address] [place] [phone] Phone Care Team Providers Care Partner Manager Name Role Phone Unavailable Primary Care Provider Unavailabl e Surgical History Surgery Date Site/Laterality Comments KNEE SURGERY 07/27/07 PROCEDURE: HISTORICAL KNEE SURGERY; COMMENT: recurrent left patella dislocation- 5 surgeries Left knee OTHER SURGICAL HISTORY PROCEDURE: ME CRANIECTOMY/CRANIOTOMY EXC FOREIGN BODY BRAIN; COMMENT: BB removed - age 3 WRIST SURGERY Left PROCEDURE: HISTORICAL WRIST SURGERY; COMMENT: Multiple wrist surgeries with Dr. 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 Osteogenesis imperfecta 1998 DX:Osteo mary imperfecta Family History Relation Name Status Comments Brother Alive Healthy Father Alive OR Maternal Grandfather Lung ca ncer Maternal Grandmother [...] 5 Years) and At-Risk Patients (6 to 49 Years) (1 of 2 - PCV) 2004 Cervical Cancer Screening: P ap Smear 2006 HPV Vaccines (2 - 3-dose series) 02/15/2008 01/18/20 08 DTaP,Tdap,and Td Vaccines (2 - Td or Tdap) 01/17/2018 01/18/2008 HIV Screening 07/22/2022 Hepatitis C Screening 07/22/2022 Social Influencers of Health Screening 07/22/2022 COVID-19 Vaccine ( - 2023-2 5 season) 2024 Depression Screening 08/24/2024 Influenza Vaccine (#1) 2025 Cholesterol Screening (Lipid Panel) 08/03/2029 08/03/2024 [...] LAB CHEMISTRY METHOD 08/03/2024 1:28 PM EST [facility] Triglycerides 185(H) 0 - 150 mg/dL LAB CHEMISTRY METHOD 08/03/2024 1:28 PM [facility] HDL 87 >=40 mg/dL LAB CHEMISTRY METHOD 08/03/2024 1:28 PM [facility] LDL Calculated 77 0 - 100 mg/dL LAB CHEMISTRY METHOD 08/03/2024 1:28 PM EST [facility] VLDL Cholesterol Rahul 37 mg/dL LAB CHEMISTRY METHOD 08/03/2024 1:28 PM EST [facility] Non HDL Chol. (LDL+VLDL) 114 <145 mg/dL LAB CHEMISTRY METHOD 08/03/2024 1:28 PM [facility] Chol/HDL Ratio 2.3 0.0 - 4.4 LAB CHEMISTRY METHOD 08/03/2024 1:28 PM EST [facility] Blood Venous blood specimen / Unknown Venipuncture / Unknown 08/03/2024 7:00 AM EST 08/03/2024 12:08 PM EST us Shavonne Zavaleta NP LAB BLOOD ORDERABLES Fi nal Result [facility] [address] [place] [address], from Last 3 Months or Most Recently Relevant to Health Maintenance
--- OUTSIDE RECORDS SUMMARY | 2025-04-22 11:14 | XMS_ITS | Clinical Summary ---
Author Organization [facility] Address [address] [place] [phone] Phone Care Team Providers Care Veterinary Bacteriologist Name Role Phone Cassia Alanis Primary Care [...] you interested in more education? Not on agnel e 12/19/2022 Are you concerned about learning? [...] VACCINE (1 - 2023-2 5 season) 2024 INFLUENZA VACCINE (#1) 2025 06/25/2007 HEPATITIS A VACCINES Aged Out No long [...] topic Medical Devices Not on file Insurance [employer] MEDICARE PART A & B [place] B Member Subscriber Plan / Payer (Ef fective 2022-Present) Name:Joselin Gonzales Member ID:[id number] Relation to Subscriber:Self Name:Joselin Gonzales Subscriber ID:[id number] Payer ID:[id number] Group ID:Not on file Type:Medicare Address: [facility] [employer] [facility] [place] [address] [place] [address] [place] PART A & B [place] B [place] & B [facility] MEDICARE PART A & B Care Teams Veterinary Bacteriologist Relationship Specialty Start Date End Date Cassia Alanis DO [address] [place] [address] PCP - General Family Medicine 09/01/23 Additional Source Comments The information contained in this document represents components of the legal health record. It is not the complete legal health record.[facility]
--- OUTSIDE RECORDS SUMMARY | 2025-04-22 11:14 | XMS_ITS | Encounter Summary ---
Author Organization [facility] Address [address] [facility] [address] [place] [phone] Phone Care Team Providers Care Cigarette Vendor Name Role Phone Cassia Alanis DO Primary Care Provider [phone] Encounter Details Date Type Department Care Team (Latest Contact Info) Description 09/08/2023 Transcribe Orders Virtual Department [address] [place] [phone] Cassia Alanis DO [address] [place], [place] [phone] [email or web address] Other specified congenital malformations of skin (Primary Dx); Osteogenesis imperfecta Social History Tobacco Use Types Packs/Day Years [...] on file documented as of this encounter Visit Diagnoses Diagnosis Other specified congenital malformations of skin- Primary Osteogenesis imperfecta documented in this encounter Care Teams Cigarette Vendor Relationship Specialty Start Date End Date Cassia Alanis DO [address] [place], [place] [phone] [email or web address] PCP - General Family Medicine 09/01/23 documented as of this encounter Additional Source Comments The information contained in this document represents components of the legal health record. It is not the complete legal health record.[facility]
--- OUTSIDE RECORDS SUMMARY | 2025-04-22 11:14 | XMS_ITS | Encounter Summary ---
Author Organization [facility] Address [address] [place] [address] Phone Care Team Providers Care Theatrical Agent Name Role Phone Thuan Zarate MD Primary Care Provider [phone] Cassia Alanis DO Primary Care Provider [phone] Encounter Details Date Type Department Care Team (Latest Contact Info) Description 10/11/2020 Transcribe Orders Virtual Department [address] [place] [phone] Brent Delgado MD [address] [place] [phone] [email or web address] Encounter for laboratory testing for COVID-19 virus (Primary Dx) Social History Tobacco Use Types Packs/Day Years Used Date Smoking Tobacco: Never Assessed Comments Unknown Sex and Gender Information Value Date Recorded Sex Assigned at Not on file Legal Sex Female 10:32 AM EDT Gender Identity Not on file Sexual Orientation Not on file documented as of this encounter Plan of Treatment Not on file documented as of this encounter Visit Diagnoses Diagnosis Encounter for laboratory testing for COVID-19 virus- Primary documented in this encounter Additional Health Concerns Infection Onset Date Last Indicated Resolved Time MRSA Comment:Import to add expiration date of 11/09/2021 per Infection Control as part of historical infection status reconciliation 04/04/2008 04/04/2008 11/10/19 22 1:35 AM EDT documented as of this encounter Care Teams Theatrical Agent Relationship Specialty Start Date End Date Thuan Zarate MD [address] [facility] [address] [place] [address] [email or web address] PCP - General Family Medicine 10/11/20 08/31/23 Cassia Alanis DO [address] [place] [phone] [email or web address] PCP - General Family Medicine 09/01/23 documented as of this encounter Additional Source Comments The information contained in this document represents components of the legal health record. It is not the complete legal health record.[facility]
--- OUTSIDE RECORDS SUMMARY | 2025-04-22 11:14 | XMS_ITS | Encounter Summary ---
Author Organization [facility] Address [address] [place] [address] Care Team Providers Care Warehouse Administrative Assistant Name Role Phone Unavailable Primary Care Provider Unavailabl e Encounter Details Date Type Department Care Team (Late st Contact Info) Description 08/10/2024 Lab Requisition [facility] - Main Lab [address] [facility] [place] [address] Shavonne Zavaleta, MAGDA [address] [place] [address] Social History Tobacco Use Types [...] to direct LDL Lab Routine Ordered: 0[address] [place] [address] Lab Routine Ordered: Hemoglobin A1c Lab Routine Ordered: 1 10/11/2023 documented as of this encounter Visit Diagnoses Not on filedocumented in this encounter
--- OUTSIDE RECORDS SUMMARY | 2025-04-22 11:14 | XMS_ITS | Encounter Summary ---
Author Organization [facility] Address [address] [place] [address] Care Team Providers Care Dispatcher Ship Pilot Name Role Phone Unavailable Primary Care Provider Unavailabl e Encounter Details Date Type Department Care Team (Late st Contact Info) Description 08/03/[address] [facility] - Main Lab [address] [facility] [place] [address] Shavonne Zavaleta, MAGDA [address] [place] [address] Other joint terminal attack controller (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 Social History Tobacco Use [...] LDL Routine 08/03/2024 7:00 AM EST [facility] (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 HEMOGLOBIN A1C Routine 08/03/2024 7:00 AM EST Other joint terminal attack controller (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 LITHIUM LEVEL Routine 08/03/2024 7:00 AM EST Other joint terminal attack controller (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 documented in this encounter Results * (ABNORMAL) [place] level (08/03/2024 7:00 AM EST) [place] Level 0.5(L) 0.6 - 1.2 mEq/L LAB CHEMISTRY METHOD 08/03/2024 1:31 PM EST [facility] Blood Venous blood specimen / Unknown Venipuncture / Unknown 08/03/2024 7:00 AM EST 08/03/2024 12:08 PM EST us Shavonne Zavaleta BODY TECHNICIAN/PAINTER LAB BLOOD ORDERABLES Fi nal Result [facility] [address] [place] [address], [place] [phone] * (ABNORMAL) Lipid panel with reflex to direct LDL (08/03/2024 7:00 AM EST) Cholesterol 201(H) 0 - 200 mg/dL LAB CHEMISTRY METHOD 08/03/2024 1:28 PM [facility] Triglycerides 185(H) 0 - 150 mg/dL LAB CHEMISTRY METHOD 08/03/2024 1:28 PM [facility] HDL 87 >=40 mg/dL LAB CHEMISTRY METHOD 08/03/2024 1:28 PM [facility] LDL Calculated 77 0 - 100 mg/dL LAB CHEMISTRY METHOD 08/03/2024 1:28 PM [facility] VLDL Cholesterol Rahul 37 mg/dL LAB CHEMISTRY METHOD 08/03/2024 1:28 PM EST [facility] Non HDL Chol. (LDL+VLDL) 114 <145 mg/dL LAB CHEMISTRY METHOD 08/03/2024 1:28 PM [facility] Chol/HDL Ratio 2.3 0.0 - 4.4 LAB CHEMISTRY METHOD 08/03/2024 1:28 PM [facility] Blood Venous blood specimen / Unknown Venipuncture / Unknown 08/03/2024 7:00 AM EST 08/03/2024 12:08 PM EST us Shavonnecassius Zavaleta BODY TECHNICIAN/PAINTER LAB BLOOD ORDERABLES Fi nal Result Performing Organization Address City/[facility]/ZIP Co de Phone Number [facility] [address] [place] [address], [place] [phone] * Hemoglobin A1c (08/03/2024 7:00 AM EST) Hemoglobin A1C 4.7 <6.5 % LAB CHEMISTRY METHOD 08/03/2024 1:35 PM EST [facility] Mean Bld Glu Estim. 88 mg/dL LAB CHEMISTRY METHOD 08/03/2024 1:35 PM EST [facility] Blood Venous blood specimen / Unknown Venipuncture / Unknown 08/03/2024 7:00 AM EST 08/03/2024 11:51 AM EST Shavonne Zavaleta BODY TECHNICIAN/PAINTER LAB BLOOD ORDERABLES Fi nal Result Performing Organization Address [facility]/ZIP Co de Phone Number [facility] [address] [place] [address], [place] [phone] documented in this encounter Visit Diagnoses Diagnosis Other joint terminal attack controller (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 documented in this encounter
[2025-04-22 11:23] LABS: MANUAL DIFF FLAG NO
[2025-04-22 11:26] LABS: Hematocrit 39.7 % (37.0-47.0); Hemoglobin 13.5 g/dl (12.0-16.0); Imm Gran Abs Auto 0.01 X10*3/uL (0.00-0.03); Imm Gran Pct Auto 0.1 % (0.0-0.4); Lymphocytes Absolute Auto 1.7 X10*3/uL (1.2-4.9); Mean Corpuscular HGB Conc 34.0 g/dl (31.0-35.0); Mean Corpuscular Hemoglobin 32.5 pg (27.0-33.0); Mean Corpuscular Volume 95.4 fL (80.0-98.0); NRBC Abs Auto 0.000 X10*3/uL (0.0-0.012); NRBC Pct Auto 0.0 /100WBC (0.0-0.2); Platelet Count 252 X10*3/uL (160-400); Red Blood Count 4.16 X10*6/uL (4.20-5.50); White Blood Count 7.5 X10*3/uL (4.8-10.8)
--- NOTE | 2025-04-22 11:32 | ED.PSYCH ---
HPI - Psych General Chief Complaint: Psychiatric Symptoms Stated Complaint: SI Time Seen by Provider: 04/22/25 10:58 Source: patient Mode of arrival: ambulatory Limitations: no limitations History of Present Illness ED Provider: YUNI BUENO PA-C HPI Narrative: 39 year old female with pmhx significant for anorexia nervosa, anxiety, depression, PTSD presents to the ED today via EMS for evaluation of suicidal ideation. Reports increasing depression following her mother's diagnosis of metastatic cancer. She reports increasing depression x3 days with plan to jump off of a bridge and kill herself. Reports previous attempts at ending her life, primarily by overdosing. Admits to taking approximately 1000 mg of trazodone around 0800 this morning in an attempt to overdose. She tells me she has a history of seizures. She denies previously or currently being prescribed any anti seizure medications. She states she takes ativan occasionally for anxiety. She tells me she had an unwitnessed seizure last night that lasted approximately 5 minutes. She reports projectile vomiting after the seizure. She contacted EMS and was transported to [facility] for further evaluation and was subsequently discharged home around 2100 last night. Reports history of neurogenic bladder requiring daily straight caths. Related Data Home Medications ?Medication ?Instructions ?Recorded ?Confirmed ibuprofen 800 mg tablet 800 mg PO TID PRN Pain (Scale 11/03/24 04/22/25 Score 4-6) quetiapine 150 mg tablet 150 mg PO BEDTIME 04/10/25 04/22/25 acetaminophen 325 mg tablet 975 mg PO Q8H PRN Pain (Scale 04/22/25 04/22/25 Score 1-3) hydroxyzine HCl 10 mg tablet 10 mg PO 5XD PRN Anxiety 04/22/25 04/22/25 trazodone 50 mg tablet 50 mg PO BEDTIME PRN Sleep 04/22/25 04/22/25 Previous Rx's ?Medication ?Instructions ?Recorded albuterol sulfate 90 mcg/actuation 2 puff inhalation QID PRN 07/28/24 aerosol inhaler Shortness Of Breath 30 days #6.7 grams tamsulosin 0.4 mg capsule 0.4 mg PO BEDTIME 30 days #30 caps 07/28/24 meclizine 25 mg tablet 25 mg PO DAILY PRN motion sickness 12/22/24 #20 tabs lurasidone 60 mg tablet (Latuda) 60 mg PO DAILY #14 tabs 03/07/25 fqzulruqqe-ixuaqkryzphaq-efcthmkz 1 tab PO DAILY PRN migraine pain 03/28/25 50 mg-325 mg-40 mg tablet #6 tabs clonidine HCl 0.1 mg tablet 0.1 mg PO BID PRN anxiety 7 days 04/06/25 #14 tabs quetiapine 50 mg tablet (Seroquel) 50 mg PO BEDTIME #30 tabs 04/11/25 Allergies Allergy/AdvReac Type Severity Reaction Status Date / Time azithromycin Allergy Itching Verified 04/22/25 10:52 levofloxacin (From Levaquin) Allergy Nightmare Verified 04/22/25 10:52 nitrofurantoin (From Allergy Itching Verified 04/22/25 10:52 Macrodantin) Review of Systems Review of Systems: Yes all other systems are reviewed and are negative [facility] Past Medical History Attestation statement: The following information was validated with the patient. Source: old records reviewed and nursing notes reviewed Medical History Anorexia Left wrist injury Scoliosis Swelling Osteoporosis Arthritis Asthma Mood disorder Indwelling Van catheter present MDD (major depressive disorder), recurrent severe, without psychosis Sacral nerve stimulator present Rectocele Juvenile osteoporosis Compression fx, lumbar spine History of wrist fracture Myofascial pain syndrome Benzodiazepine dependence Anxiety and depression Surgical History History of vaginal surgery History of bladder surgery H/O wrist surgery History of left knee surgery History of right knee surgery History of brain surgery History of placement of ear tubes H/O cystoscopy Family History Family History Mother High blood pressure Cardiovascular disease Father Prostate cancer Social History Social History Household Members: Family Household Members Other:: discharged from today, going to med surg post op Housing: House Are you a primary career consultant to a significant other at home: No Do you presently have visiting nurse or other home services: No Alcohol intake: former Comment: oob with steady gait Patient Tobacco Use Status: Current everyday Tobacco user Tobacco use type: Cigarette Cigarette Packs Per Day: 3 Cigarettes Per Day: 40.0 Years Smoked: Over 20 years e-Cigarette/Vaping Use: Currently Using Second Hand Smoke Exposure: No Use of substances other than those prescribed or required for medical reasons: No Substance Use Type: Opiates Advance Directives: Yes Advance Directives on File: Yes Advance Directives Date on File: 07/29/24 service: No Current occupational status: disabled Current occupational exposures/hazards: No Sexual orientation: Straight/Heterosexual Cognitive needs: No Hearing needs: No Vision needs: No Physical Exam Vital Signs: Vital Signs: Last Vital Signs Temp 98.8 F 04/22/25 15:55 Pulse 71 04/22/25 15:55 Resp 10 L 04/22/25 15:55 BP 116/85 04/22/25 15:55 Pulse Ox 97 04/22/25 15:55 O2 Del Method Room Air 04/22/25 15:55 BMI result Body Mass Index 18.6 vital signs stable, low grade temp 99.3F General: thin appearing, diaphoretic Skin: intact. No rashes or lesions. Head: Normocephalic, atraumatic. EENT: Hearing is intact b/l. Conjunctiva clear. Sclera is anicteric. PERRLA. EOM intact. Moist mucous membranes.? Neck: Supple without LAD Cardiac: Chest wall symmetric. RRR Lungs: Normal respiratory effort without accessory muscle use. congested cough. CTA bilaterally Abdomen: Soft, non-tender, non-distended. No rebound tenderness or guarding. Positive BS x4. Ext: Upper and lower extremities atraumatic, without tenderness, deformity, swelling or erythema. Full ROM throughout. Neuro: AOx3. Normal speech. two beat clonus to b/l LEs. patellar dtrs hyper reflexive b/l. Psych: Appropriate mood and affect. Responds appropriately to questions. Course Course Course Narrative: 1157 -- CBC without leukocytosis or left shift. No anemia. H&H stable. Potassium 4.3, magnesium 2. No ESTEPHANIE. Liver function WNL. Salicylates, acetaminophen ethanol undetectable. > call out to poison control > records requested from [facility] [id number] -- I spoke with poison control - recommends adding on lithium level d/t script history. also recommending serial EKS q2 hours until three are 3 consecutive EKGs w/ QTC <50 and QRS <100 (1 EKG documented at this time) > given clonus, hyperreflexia and diaphoresis there is concern for serotonin syndrome - recommending 5-10mg of IV diazepam q15 minutes until resolution of symptoms OR onset of respiratory depression. > discussed case with my attending dr. rodriguez - agreeable w/ 5mg diazepam w/ re-eval in 15 minutes. also recommending 25 mg IV benadryl for possible anticholinergic syndrome. both have been ordered. RN aware. patient plaed on continued cardiac monitoring. > temp sensing van ordered 1324-- on re-evaluation, patient is still demonstrating clonus to bilateral lower extremities. She states she feels well however sleepy. she is saturating 97% on RA, HR 87 bpm, RR 14 > discussed with my attending dr. rodriguez - another 5mg diazepam and 25mg Benadryl ordered. 2L IVF ordered. 2 hour EKG ordered. 1336 -- repeat EKG showing NSR with rate of 68 bpm, QTC 465, QRS 86 - normal EKG. 1351 -- Discussed case with hospitalist saba zuniga - has accepted admission to medicine for management of serotonin syndrome. patient is stable at this time. Medications Administered Generic Name Dose Route Start Last Admin Trade Name Freq PRN Reason Stop Dose Admin Enoxaparin Sodium 40 mg 04/22/25 15:00 04/22/25 14:31 Enoxaparin Sodium 40 Mg/0.4 Ml Syringe SUBCUT 40 mg Q24H ELMO Administration Lactated Ringer's 1,000 mls @ 100 mls/hr 04/22/25 14:15 04/22/25 14:30 Lr IVCONT 100 mls/hr .Q10H ELMO Administration Sodium Chloride 3 ml 04/22/25 16:00 04/22/25 15:38 0.9 % Sodium Chloride Flush 3 Ml Syringe IVFLUSH Not Given QSHIFT ELMO Discontinued Medications Generic Name Dose Route Start Last Admin Trade Name Freq PRN Reason Stop Dose Admin Diazepam 5 mg 04/22/25 12:13 04/22/25 12:45 Diazepam 10 Mg/2 Ml Cartridge IVPUSH 04/22/25 12:14 5 mg STAT STA Administration Diazepam 5 mg 04/22/25 13:09 04/22/25 13:28 Diazepam 10 Mg/2 Ml Cartridge IVPUSH 04/22/25 13:10 5 mg STAT STA Administration Diphenhydramine HCl 25 mg 04/22/25 12:17 04/22/25 12:54 Diphenhydramine Hcl 50 Mg/Ml Vial IVPUSH 04/22/25 12:18 25 mg ONCE ONE Administration Diphenhydramine HCl 25 mg 04/22/25 13:23 04/22/25 13:26 Diphenhydramine Hcl 50 Mg/Ml Vial IVPUSH 04/22/25 13:24 25 mg ONCE ONE Administration Sodium Chloride 1,000 mls @ 999 mls/hr 04/22/25 13:30 04/22/25 14:28 Ns IV 04/22/25 14:30 Infused .Q1H1M ELMO Infusion Medical Decision Making Medical Decision Making MDM Narrative: 39 year old female with pmhx significant for anorexia nervosa, anxiety, depression, PTSD presents to the ED today via EMS for evaluation of suicidal ideation. On arrival her vitals are stable. She is thin appearing and diaphoretic. She has positive two beat clonus to bilateral lower extremities and hyperreflexia to b/l patellar DTRs. Differential diagnosis includes anemia, electrolyte abnormality, aspiration pneumonia, suicidal ideation, anxiety, depression, intentional overdose, medication side effect, serotonin syndrome, anticholinergic syndrome, polysubstance abuse Plan for labs, UA, CXR, utox, ekg, re-eval. Differential Diagnosis Differential Diagnoses: The differential diagnosis associated with the presentation includes as above. Admission/Observation Consideration of admission/observation: Escalation of care including admission/observation considered Patient admitted to medicine for management of serotonin syndrome Lab Data [facility] Lab Attestation statement: I reviewed the patient's lab results. as above. 04/22/25 11:19 04/22/25 11:19 Labs: Lab Results 04/22/25 04/22/25 04/22/25 Range/Units 11:19 12:36 13:37 WBC 7.5 (4.8-10.8) X10*3/uL RBC 4.16 L (4.20-5.50) X10*6/uL Hgb 13.5 (12.0-16.0) g/dl Hct 39.7 (37.0-47.0) % MCV 95.4 (80.0-98.0) fL MCH 32.5 (27.0-33.0) pg MCHC 34.0 (31.0-35.0) g/dl RDW 13.9 (11.0-16.0) % Plt Count 252 (160-400) X10*3/uL MPV 10.3 (9.4-12.3) fL Immature Gran % (Auto) 0.1 (0.0-0.4) % Neut % (Auto) 70.0 (45-73) % Lymph % (Auto) 22.3 (20-40) % [place] % (Auto) 6.2 (2-11) % Eos % (Auto) 0.3 (0-4) % Baso % (Auto) 1.1 (0-2) % Lymph # (Auto) 1.7 (1.2-4.9) X10*3/uL [place] # (Auto) 0.5 (0.1-1.2) X10*3/uL Eos # (Auto) 0.0 (0.0-0.4) X10*3/uL Baso # (Auto) 0.1 (0.0-0.2) X10*3/uL Abs Immat Gran (auto) 0.01 (0.00-0.03) X10*3/uL Absolute Neuts (auto) 5.3 (2.0-8.3) x10*3/uL Absolute Nucleated RBC 0.000 (0.0-0.012) X10*3/uL Nucleated RBC % (auto) 0.0 (0.0-0.2) /100WBC Sodium 143 (135-145) mmol/L Potassium 4.3 (3.3-5.1) mmol/L Chloride 115 H (96-108) mmol/L Carbon Dioxide 20 L (22-29) mmol/L Anion Gap 12 (12-20) BUN 11 (9-16) mg/dL Creatinine 0.71 (0.5-1.4) mg/dL Estim Creat Clear Calc 72.3 Estimated GFR > 60 Fasting Glucose 103 H (60-99) mg/dL Calcium 9.1 (8.4-10.2) mg/dL Magnesium 2.0 (1.6-2.6) mg/dL Total Bilirubin 0.4 (0.0-1.0) mg/dL AST 16 (5-31) U/L ALT 9 (0-31) U/L Alkaline Phosphatase 61 (39-117) U/L Total Protein 6.5 (6.5-8.0) g/dL Albumin 4.2 (3.5-5.0) g/dL Beta-Hydroxybutyrate Cancelled Beta HCG, Quant < 2 mIU/mL Urine Color Dark Yellow Urine Appearance Clear Urine pH 7.5 (5.0-9.0) Ur Specific [place] 1.020 (1.005-1.025) Urine Protein Trace (Neg-Trace) mg/dL Urine Glucose (UA) Negative (Negative) mg/dL Urine Ketones Trace (Negative) mg/dL Urine Blood Negative (Negative) Urine Nitrite Negative (Negative) Ur Leukocyte Esterase Trace H (Negative) Urine RBC 0-2 (0-2) /HPF Urine WBC 0-5 (0-5) /HPF Ur Squamous Epith Cells 6-10 (0-2) /HPF Urine Bacteria None Seen (None Seen) Hyaline Casts 0-2 (0-2) /LPF Salicylates < 5.0 L (15-30) mg/dL Urine Opiates Screen Not Detected (Not Detect) Ur Buprenorphine Scrn Not Detected (Not Detect) ng/mL Ur Oxycodone Screen Not Detected (Not Detect) ng/mL Urine Methadone Screen Not Detected (Not Detect) ng/mL Urine Fentanyl Screen Not Detected (Not Detect) Acetaminophen < 3 (<30) mcg/mL Ur Barbiturates Screen Not Detected (Not Detect) Ur Phencyclidine Scrn Not Detected (Not Detect) Ur Amphetamines Screen Not Detected (Not Detect) U Benzodiazepines Scrn Not Detected (Not Detect) [place] [employer] < 0.10 L (0.60-1.20) mmol/L Urine Cocaine Screen Not Detected (Not Detect) U Marijuana (THC) Screen Not Detected (Not Detect) Ethyl Alcohol < 10 mg/dL Independent Interpretation I performed an independent interpretation of an: EKG and Plain X-Ray Interpretation: First EKG showing normal sinus rhythm with sinus arrhythmia, rate of 71 beats per minute, QTC 456, QRS 90 Second EKG showing normal sinus rhythm with rate of 68 beats per minute, QTC 465, QRS 86 Third EKG showing normal sinus rhythm with sinus arrhythmia, rate of 72 beats per minute, QTC 466, QRS 92 CXR without infiltrate or consolidation Radiology Impression Discussion of test interpretation with radiology: I have reviewed the radiologist's reading. Radiologist Impression: Procedure(s): XR chest 2V Accession Number(s): [id number] cc: Yuni Bueno; Debi Machado [employer]~ CLINICAL HISTORY: r o aspiration 2 view chest x-ray Comparison: CR/SR - XR CHEST 2 VIEWS - 11/14/24 11:32 EDT Findings: No consolidation or effusion. Heart size is normal. No acute fracture. IMPRESSION: 1. No acute findings. This document has been electronically signed by: Gerry Apodaca MD on 04/22/2025 12:54:37 Independent Historian Clinical information obtained from an independent historian. History obtained from or confirmed by: EMS External Record Review External record reviewed: Inpatient record Chronic Conditions Patient?s care impacted by: Other (ANIBAL/MDD) Social Determinants Patient?s care significantly limited by Social Determinants of Health including: Other Social Determinant of Health Critical Care Time Critical Care Time Critical Care Time: Yes Total Critical Care Time: 60 Attestation: Critical care time in the amount of 60 minutes has been provided to the patient in terms of direct patient care, frequent reevaluation, consultation with poison control and hospitalist, review and interpretation of medical data and results, and management of potentially life-threatening conditions. This is all outside of any medical procedures. Discharge Plan Discharge Clinical Impression: Suicidal ideation, Intentional overdose, Serotonin syndrome Patient Disposition: Admitted As Inpatient Interventions: [place]-Suicide Risk Severity Scale Last Done: 04/22/25 11:16
[2025-04-22 11:40] LABS: Alanine Aminotransferase 9 U/L (0-31); Albumin Level 4.2 g/dL (3.5-5.0); Alkaline Phosphatase 61 U/L (39-117); Anion Gap 12 (12-20); Aspartate Amino Transferase 16 U/L (5-31); Blood Urea Nitrogen 11 mg/dL (9-16); Calcium 9.1 mg/dL (8.4-10.2); Carbon Dioxide 20 mmol/L (22-29); Chloride 115 mmol/L (96-108); Creatinine Clr Calc Pharmacy 72.3; Estimated Glomerular Filt Rate > 60; Magnesium 2.0 mg/dL (1.6-2.6); Potassium 4.3 mmol/L (3.3-5.1); Sodium 143 mmol/L (135-145); Total Protein 6.5 g/dL (6.5-8.0)
[2025-04-22] MEDS: diazePAM 10 MG/2 ML CARTRIDGE 5 MG IVPUSH ×2 (12:45→13:28)
[2025-04-22 13:04] LABS: Lithium < 0.10 mmol/L (0.60-1.20)
--- NOTE | 2025-04-22 13:24 | ECG_ITS ---
Test Reason : repeat Blood Pressure : */* mmHG Vent. Rate : 68 BPM Atrial Rate : 68 BPM P-R Int : 132 ms QRS Dur : 86 ms QT Int : 438 ms P-R-T Axes : 64 32 40 degrees QTcB Int : 465 ms Artifact in tracing Normal sinus rhythm Normal ECG When compared with ECG of 22-Apr-2025 11:25, No significant change was found Referred By: Yuni Bueno Electronically Signed By: RILEY JORGE
[2025-04-22 13:48] LABS: Appearance Urine Clear; Glucose Urine UA Negative (Negative); PH 7.5 (5.0-9.0); Specific Gravity - Urine 1.020 (1.005-1.025); UMIC TRIGGER UACC YES
[2025-04-22 13:57] LABS: Cannabinoid Screen Urine Not Detected (Not Detect)
[2025-04-22 14:01] LABS: Acetaminophen LAB < 3 mcg/mL (<30); Salicylate < 5.0 mg/dL (15-30)
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
[2025-04-22] MEDS: Lactated Ringers 1,000 ML 100 ML IVCONT ×2 (14:30→23:40)
--- NOTE | 2025-04-22 15:25 | PHA.MEDREC ---
Addendum entered by Camila Armas RPh 04/22/25 15:29: reviewed by pharmacist Original Note: Pharmacy Consult ? Medication Reconciliation Pharmacy has completed the medication reconciliation. Confirmed meds with patient. Seroquel 50 and 150 taken together for 200mg daily dose.
--- NOTE | 2025-04-22 15:30 | ECG_ITS ---
Test Reason : repeat Blood Pressure : */* mmHG Vent. Rate : 72 BPM Atrial Rate : 72 BPM P-R Int : 126 ms QRS Dur : 92 ms QT Int : 426 ms P-R-T Axes : 67 28 37 degrees QTcB Int : 466 ms Artifact in tracing Normal sinus rhythm with sinus arrhythmia Normal ECG When compared with ECG of 22-Apr-2025 13:30, No significant change was found Referred By: Eliu [facility] Electronically Signed By: RILEY JORGE
--- NOTE | 2025-04-22 20:00 | ECG_ITS ---
Test Reason : Check QTc Blood Pressure : */* mmHG Vent. Rate : 77 BPM Atrial Rate : 77 BPM P-R Int : 118 ms QRS Dur : 92 ms QT Int : 406 ms P-R-T Axes : 57 29 40 degrees QTcB Int : 459 ms Artifact in tracing Normal sinus rhythm with sinus arrhythmia Normal ECG When compared with ECG of 22-Apr-2025 15:52, No significant change was found Referred By: Eliu [facility] Electronically Signed By: RILEY JORGE
[2025-04-22] MEDS: 0.9 % Sodium Chloride Flush 3 ML SYRINGE IVFLUSH (23:39)
[2025-04-23] VITALS (7 sets, daily range): BP systolic 102–125; BP diastolic 58–81; PULSE 57–71; RESP 18; TEMP 36.5–37.3; O2SAT 95–97
--- NOTE | 2025-04-23 08:00 | ECG_ITS ---
Test Reason : OD Blood Pressure : */* mmHG Vent. Rate : 74 BPM Atrial Rate : 74 BPM P-R Int : 142 ms QRS Dur : 90 ms QT Int : 418 ms P-R-T Axes : 65 9 20 degrees QTcB Int : 463 ms Artifact in tracing Normal sinus rhythm Normal ECG When compared with ECG of 22-Apr-2025 20:20, No significant change was found Referred By: Eliu [facility] Electronically Signed By: RILEY JORGE
[2025-04-23 08:25] LABS: Alanine Aminotransferase < 6 U/L (0-31); Albumin Level 3.5 g/dL (3.5-5.0); Alkaline Phosphatase 48 U/L (39-117); Anion Gap 10 (12-20); Aspartate Amino Transferase 15 U/L (5-31); Blood Urea Nitrogen 7 mg/dL (9-16); Calcium 8.4 mg/dL (8.4-10.2); Carbon Dioxide 21 mmol/L (22-29); Chloride 117 mmol/L (96-108); Creatinine Clr Calc Pharmacy 82.7; Estimated Glomerular Filt Rate > 60; Potassium 3.5 mmol/L (3.3-5.1); Sodium 144 mmol/L (135-145); Total Protein 5.5 g/dL (6.5-8.0)
--- NOTE | 2025-04-23 09:35 | P.PNIM_ITS ---
Subjective Subjective Date of Service: 04/23/25 Interval History: On psychotropic overdose (trazodone overdose with 1000 mg) for suicide attempt Presently without any signs and symptoms of common side effect. Her EKGs have demonstrated normal QTC She is complaining about nausea but no vomiting and no abdominal discomfort. Physical Exam 2 Vital Signs: Vital Signs: Last Vital Signs Temp 98.5 F 04/23/25 08:00 Pulse 71 04/23/25 08:00 Resp 18 04/23/25 08:00 BP 111/73 04/23/25 03:42 Pulse Ox 95 04/23/25 08:00 O2 Del Method Room Air 04/23/25 08:00 BMI result Body Mass Index 18.8 Const: Other: General: AO X 3, no acute distress Resp: CTA bilateral CVS: S1,S2,RRR GI: +BS, NT, no distention Skin: No rash Neuro: motor grossly intact Psych: appropriate affect Objective Data Active Medications Acetaminophen (Acetaminophen 325 Mg Tablet) 650 mg PO Q6H PRN PRN Reason: Pain, Mild 1-3,fever,headache Acetaminophen/Butalbital/Caffeine (Butalb/Acetamin/Caff 50/325/40 Tablet) 1 tab PO DAILY PRN PRN Reason: migraine pain Albuterol Sulfate (Albuterol Sulfate 90 Mcg 8 Gm Inhaler) 2 puff INHALE QID PRN PRN Reason: Shortness of Breath Calcium Carbonate (Calcium Carbonate 750 Mg Tab.Chew) 750 mg PO Q4H PRN PRN Reason: Heartburn Clonidine HCl (Clonidine Hcl 0.1 Mg Tablet) 0.1 mg PO BID PRN; Protocol PRN Reason: Anxiety Diphenhydramine HCl (Diphenhydramine Hcl 50 Mg/Ml Vial) 25 mg IVPUSH Q6H PRN PRN Reason: Nausea and Vomiting Last Admin: 04/23/25 06:27 Dose: 25 mg Documented By: STEVEN Enoxaparin Sodium (Enoxaparin Sodium 40 Mg/0.4 Ml Syringe) 40 mg SUBCUT Q24H [facility] Last Admin: 04/22/25 14:31 Dose: 40 mg Documented By: HAY-OLAMIDE Hydroxyzine HCl (Hydroxyzine Hcl 10 Mg Tablet) 10 mg PO 5XD PRN PRN Reason: Anxiety Lactated Ringer's (Lr) 1,000 mls @ 100 mls/hr IVCONT .Q10H [facility] Last Admin: 04/22/25 23:40 Dose: 100 mls/hr Documented By: STEVEN Lurasidone HCl (Lurasidone Hcl 20 Mg Tablet) 60 mg PO DAILY [facility] Magnesium Hydroxide (Milk Of Magnesia 30 Ml Oral.Susp) 30 ml PO DAILY PRN PRN Reason: Constipation Meclizine HCl (Meclizine Hcl 25 Mg Tablet) 25 mg PO DAILY PRN PRN Reason: motion sickness Melatonin (Melatonin 3 Mg Tablet) 6 mg PO BEDTIME PRN PRN Reason: Insomnia Polyethylene Glycol (Polyethylene Glycol 3350 17 Gm Powd.Pack) 17 gm PO DAILY PRN PRN Reason: Constipation Quetiapine Fumarate (Quetiapine Fumarate 50 Mg Tablet) 50 mg PO BEDTIME ELMO Quetiapine Fumarate (Quetiapine Fumarate 50 Mg Tablet) 150 mg PO BEDTIME [facility] Sodium Chloride (0.9 % Sodium Chloride Flush 3 Ml Syringe) 3 ml IVFLUSH QSHIFT [facility] Last Admin: 04/23/25 07:41 Dose: Not Given Documented By: DAMIAN Non-Admin Reason: IV Running Tamsulosin HCl (Tamsulosin Hcl 0.4 Mg Capsule) 0.4 mg PO BEDTIME [facility] Labs 04/22/25 11:19 04/23/25 07:29 Labs: Laboratory Results - last 24 hr 04/22/25 04/22/25 04/22/25 11:19 12:36 13:37 MCV 95.4 MCH 32.5 MCHC 34.0 RDW 13.9 Plt Count 252 MPV 10.3 Immature Gran % (Auto) 0.1 Neut % (Auto) 70.0 Lymph % (Auto) 22.3 [place] % (Auto) 6.2 Eos % (Auto) 0.3 Baso % (Auto) 1.1 Lymph # (Auto) 1.7 [place] # (Auto) 0.5 Eos # (Auto) 0.0 Baso # (Auto) 0.1 Abs Immat Gran (auto) 0.01 Absolute Neuts (auto) 5.3 Absolute Nucleated RBC 0.000 Nucleated RBC % (auto) 0.0 Hold Purple Top Anion Gap 12 Estim Creat Clear Calc 72.3 Estimated GFR > 60 Random Glucose Fasting Glucose 103 H Calcium 9.1 Magnesium 2.0 Total Bilirubin 0.4 AST 16 ALT 9 Alkaline Phosphatase 61 Total Protein 6.5 Albumin 4.2 Beta-Hydroxybutyrate Cancelled Beta HCG, Quant < 2 Urine Color Dark Yellow Urine Appearance Clear Urine pH 7.5 Ur Specific [place] 1.020 Urine Protein Trace Urine Glucose (UA) Negative Urine Ketones Trace Urine Blood Negative Urine Nitrite Negative Ur Leukocyte Esterase Trace H Urine RBC 0-2 Urine WBC 0-5 Ur Squamous Epith Cells 6-10 Urine Bacteria None Seen Hyaline Casts 0-2 Salicylates < 5.0 L Urine Opiates Screen Not Detected Ur Buprenorphine Scrn Not Detected Ur Oxycodone Screen Not Detected Urine Methadone Screen Not Detected Urine Fentanyl Screen Not Detected Acetaminophen < 3 Ur Barbiturates Screen Not Detected Ur Phencyclidine Scrn Not Detected Ur Amphetamines Screen Not Detected U Benzodiazepines Scrn Not Detected [place] < 0.10 L Urine Cocaine Screen Not Detected U Marijuana (THC) Screen Not Detected Ethyl Alcohol < 10 04/23/25 07:29 MCV MCH MCHC RDW Plt Count MPV Immature Gran % (Auto) Neut % (Auto) Lymph % (Auto) [place] % (Auto) Eos % (Auto) Baso % (Auto) Lymph # (Auto) [place] # (Auto) Eos # (Auto) Baso # (Auto) Abs Immat Gran (auto) Absolute Neuts (auto) Absolute Nucleated RBC Nucleated RBC % (auto) Hold Purple Top SEE NOTE Anion Gap 10 L Estim Creat Clear Calc 82.7 Estimated GFR > 60 Random Glucose 85 Fasting Glucose Calcium 8.4 D Magnesium Total Bilirubin 0.5 AST 15 ALT < 6 Alkaline Phosphatase 48 Total Protein 5.5 L Albumin 3.5 Beta-Hydroxybutyrate Beta HCG, Quant Urine Color Urine Appearance Urine pH Ur Specific [place] Urine Protein Urine Glucose (UA) Urine Ketones Urine Blood Urine Nitrite Ur Leukocyte Esterase Urine RBC Urine WBC Ur Squamous Epith Cells Urine Bacteria Hyaline Casts Salicylates Urine Opiates Screen Ur Buprenorphine Scrn Ur Oxycodone Screen Urine Methadone Screen Urine Fentanyl Screen Acetaminophen Ur Barbiturates Screen Ur Phencyclidine Scrn Ur Amphetamines Screen U Benzodiazepines Scrn [place] Urine Cocaine Screen U Marijuana (THC) Screen Ethyl Alcohol Assessment and Plan (1) Overdose of trazodone: Status: Acute (2) Suicide attempt: Status: Acute Plan 39-year-old female with history of Jennifer Danlos syndrome, osteogenesis imperfecta, myofascial pain syndrome, migraines, juvenile osteoporosis, asthma, and mood disorder, history of major depression with suicidal attempts at least 6 times in the past. She presented to the emergency room today after attempting suicide by taking a 1000 mg of trazodone. Plan: Close monitoring on telemetry and watach for these common symptoms ?drowsiness, hyperthermia, dizziness, ataxia, hypotension, and cardiac rhythm disturbances. Severe cases may progress to coma, seizures, or life-threatening arrhythmias. Hydrate with IVF, follow Poison control recommendation: > ekgs q2 hours until 3 consecutive EKGs w/ QTC <500 and QRS <100 (2 normal ekgs so far) > 5mg diazepam q 15 minutes until resolution of symptoms or until onset of respiratory depression (has received a total of 10 mg diazepam, clonus improving other interventions in ED - 50 mg Benadryl and IVF. She has reamined stable overnight, ECGS have shown normal QTc, she has no sings of common symptoms of trazadone toxicity, other than resudual nausea. At this point will get CARE consult for consideration of inpatient Psych treatment given the seriousness of her action with potential serious health outcome Quality Stroke Does the patient have a stroke diagnosis?: No VTE Prior VTE?: No VTE Risk Level:: Medical - moderate - high VTE Device Contraindication: Treatment Not Indicated VTE Drug Contraindication: N/A - Med Ordered
[2025-04-23] MEDS: Lactated Ringers 1,000 ML 100 ML IVCONT ×2 (10:11→19:41)
--- NOTE | 2025-04-23 12:24 | MHC.CARE ---
Pt will be an inpatient bedsearch.?
--- NOTE | 2025-04-23 15:36 | PC.NURSE ---
van cath DC per MD approval at 1300. pt dt void at [phone]
[2025-04-24 03:48] VITALS: BP 107/63; PULSE 60; RESP 18; TEMP 36.1; O2SAT 96
[2025-04-24] MEDS: Lactated Ringers 1,000 ML 100 ML IVCONT (05:41)
[2025-04-24 07:37] VITALS: BP 115/74; PULSE 61; RESP 16; TEMP 36.8; O2SAT 96
--- NOTE | 2025-04-24 09:45 | P.PNIM_ITS ---
Subjective Subjective Date of Service: 04/24/25 Interval History: f/u on psychotropic overdose (trazodone overdose with 1000 mg) for suicide attempt Presently without any signs and symptoms of common side effect. Her EKGs have demonstrated normal QTC She denies SI/HI and wants to go home but bad idea according CARE team, I agree Physical Exam 2 Vital Signs: Vital Signs: Last Vital Signs Temp 98.2 F 04/24/25 07:37 Pulse 61 04/24/25 07:37 Resp 16 04/24/25 07:37 BP 115/74 04/24/25 07:37 Pulse Ox 96 04/24/25 07:37 O2 Del Method Room Air 04/24/25 07:37 BMI result Body Mass Index 18.8 Const: Other: General: AO X 3, no acute distress Resp: CTA bilateral CVS: S1,S2,RRR GI: +BS, NT, no distention Skin: No rash Neuro: motor grossly intact Psych: appropriate affect , no SI/HI Objective Data Active Medications Acetaminophen (Acetaminophen 325 Mg Tablet) 650 mg PO Q6H PRN PRN Reason: Pain, Mild 1-3,fever,headache Acetaminophen/Butalbital/Caffeine (Butalb/Acetamin/Caff 50/325/40 Tablet) 1 tab PO DAILY PRN PRN Reason: migraine pain Albuterol Sulfate (Albuterol Sulfate 90 Mcg 8 Gm Inhaler) 2 puff INHALE QID PRN PRN Reason: Shortness of Breath Calcium Carbonate (Calcium Carbonate 750 Mg Tab.Chew) 750 mg PO Q4H PRN PRN Reason: Heartburn Clonidine HCl (Clonidine Hcl 0.1 Mg Tablet) 0.1 mg PO BID PRN; Protocol PRN Reason: Anxiety Last Admin: 04/23/25 16:02 Dose: 0.1 mg Documented By: DAMIAN Diphenhydramine HCl (Diphenhydramine Hcl 50 Mg/Ml Vial) 25 mg IVPUSH Q6H PRN PRN Reason: Nausea and Vomiting Last Admin: 04/23/25 19:41 Dose: 25 mg Documented By: JOSE Enoxaparin Sodium (Enoxaparin Sodium 40 Mg/0.4 Ml Syringe) 40 mg SUBCUT Q24H [facility] Last Admin: 04/23/25 15:58 Dose: 40 mg Documented By: HO.PHANLYM Hydroxyzine HCl (Hydroxyzine Hcl 10 Mg Tablet) 10 mg PO 5XD PRN PRN Reason: Anxiety Lurasidone HCl (Lurasidone Hcl 20 Mg Tablet) 20 mg PO DAILY [facility] Last Admin: 04/24/25 08:27 Dose: Not Given Documented By: MAGALY Non-Admin Reason: Patient Refused Lurasidone HCl (Lurasidone Hcl 40 Mg Tablet) 40 mg PO DAILY [facility] Last Admin: 04/24/25 08:27 Dose: Not Given Documented By: MAGALY Non-Admin Reason: Patient Refused Magnesium Hydroxide (Milk Of Magnesia 30 Ml Oral.Susp) 30 ml PO DAILY PRN PRN Reason: Constipation Meclizine HCl (Meclizine Hcl 25 Mg Tablet) 25 mg PO DAILY PRN PRN Reason: motion sickness Melatonin (Melatonin 3 Mg Tablet) 6 mg PO BEDTIME PRN PRN Reason: Insomnia Polyethylene Glycol (Polyethylene Glycol 3350 17 Gm Powd.Pack) 17 gm PO DAILY PRN PRN Reason: Constipation Quetiapine Fumarate (Quetiapine Fumarate 50 Mg Tablet) 50 mg PO BEDTIME [facility] Last Admin: 04/23/25 20:27 Dose: 50 mg Documented By: JOSE Quetiapine Fumarate (Quetiapine Fumarate 50 Mg Tablet) 150 mg PO BEDTIME [facility] Last Admin: 04/23/25 20:27 Dose: 150 mg Documented By: JOSE Sodium Chloride (0.9 % Sodium Chloride Flush 3 Ml Syringe) 3 ml IVFLUSH QSHIFT [facility] Last Admin: 04/24/25 08:27 Dose: Not Given Documented By: MAGALY Non-Admin Reason: IV Running Tamsulosin HCl (Tamsulosin Hcl 0.4 Mg Capsule) 0.4 mg PO BEDTIME [facility] Last Admin: 04/23/25 20:27 Dose: 0.4 mg Documented By: JOSE Labs 04/22/25 11:19 04/23/25 07:29 Labs: Laboratory Results - last 24 hr 04/22/25 04/22/25 04/22/25 11:19 12:36 13:37 MCV 95.4 MCH 32.5 MCHC 34.0 RDW 13.9 Plt Count 252 MPV 10.3 Immature Gran % (Auto) 0.1 Neut % (Auto) 70.0 Lymph % (Auto) 22.3 [place] % (Auto) 6.2 Eos % (Auto) 0.3 Baso % (Auto) 1.1 Lymph # (Auto) 1.7 [place] # (Auto) 0.5 Eos # (Auto) 0.0 Baso # (Auto) 0.1 Abs Immat Gran (auto) 0.01 Absolute Neuts (auto) 5.3 Absolute Nucleated RBC 0.000 Nucleated RBC % (auto) 0.0 Hold Purple Top Anion Gap 12 Estim Creat Clear Calc 72.3 Estimated GFR > 60 Random Glucose Fasting Glucose 103 H Calcium 9.1 Magnesium 2.0 Total Bilirubin 0.4 AST 16 ALT 9 Alkaline Phosphatase 61 Total Protein 6.5 Albumin 4.2 Beta-Hydroxybutyrate Cancelled Beta HCG, Quant < 2 Urine Color Dark Yellow Urine Appearance Clear Urine pH 7.5 Ur Specific [place] 1.020 Urine Protein Trace Urine Glucose (UA) Negative Urine Ketones Trace Urine Blood Negative Urine Nitrite Negative Ur Leukocyte Esterase Trace H Urine RBC 0-2 Urine WBC 0-5 Ur Squamous Epith Cells 6-10 Urine Bacteria None Seen Hyaline Casts 0-2 Salicylates < 5.0 L Urine Opiates Screen Not Detected Ur Buprenorphine Scrn Not Detected Ur Oxycodone Screen Not Detected Urine Methadone Screen Not Detected Urine Fentanyl Screen Not Detected Acetaminophen < 3 Ur Barbiturates Screen Not Detected Ur Phencyclidine Scrn Not Detected Ur Amphetamines Screen Not Detected U Benzodiazepines Scrn Not Detected [place] < 0.10 L Urine Cocaine Screen Not Detected U Marijuana (THC) Screen Not Detected Ethyl Alcohol < 10 04/23/25 07:29 MCV MCH MCHC RDW Plt Count MPV Immature Gran % (Auto) Neut % (Auto) Lymph % (Auto) [place] % (Auto) Eos % (Auto) Baso % (Auto) Lymph # (Auto) [place] # (Auto) Eos # (Auto) Baso # (Auto) Abs Immat Gran (auto) Absolute Neuts (auto) Absolute Nucleated RBC Nucleated RBC % (auto) Hold Purple Top SEE NOTE Anion Gap 10 L Estim Creat Clear Calc 82.7 Estimated GFR > 60 Random Glucose 85 Fasting Glucose Calcium 8.4 D Magnesium Total Bilirubin 0.5 AST 15 ALT < 6 Alkaline Phosphatase 48 Total Protein 5.5 L Albumin 3.5 Beta-Hydroxybutyrate Beta HCG, Quant Urine Color Urine Appearance Urine pH Ur Specific [place] Urine Protein Urine Glucose (UA) Urine Ketones Urine Blood Urine Nitrite Ur Leukocyte Esterase Urine RBC Urine WBC Ur Squamous Epith Cells Urine Bacteria Hyaline Casts Salicylates Urine Opiates Screen Ur Buprenorphine Scrn Ur Oxycodone Screen Urine Methadone Screen Urine Fentanyl Screen Acetaminophen Ur Barbiturates Screen Ur Phencyclidine Scrn Ur Amphetamines Screen U Benzodiazepines Scrn [place] Urine Cocaine Screen U Marijuana (THC) Screen Ethyl Alcohol Assessment and Plan (1) Overdose of trazodone: Status: Acute (2) Suicide attempt: Status: Acute Plan 39-year-old female with history of Jennifer Danlos syndrome, osteogenesis imperfecta, myofascial pain syndrome, migraines, juvenile osteoporosis, asthma, and mood disorder, history of major depression with suicidal attempts at least 6 times in the past. She presented to the emergency room today after attempting suicide by taking a 1000 mg of trazodone. Plan: Has no symptoms realted to trazadone OD, QTc remain normal. She denies SI/HI at this time, however given the gravity of her action, she required Psych admission and will be admitted once bed is available. Quality Stroke Does the patient have a stroke diagnosis?: No VTE Prior VTE?: No VTE Risk Level:: Medical - moderate - high VTE Device Contraindication: Treatment Not Indicated VTE Drug Contraindication: N/A - Med Ordered
--- NOTE | 2025-04-24 09:49 | PM.DS ---
DS: Providers Provider Date of Service: 04/26/25 Date of admission: 04/22/25 14:22 Date of discharge: 04/26/25 Primary care physician: Debi Machado CNP Consults: 04/22/25 14:35 Consult for Sitter Routine Reason for consultation: SI, OD 04/23/25 09:04 Inpt CARE Team Crisis Consult Routine Comment: Reason for consultation: OD, medically ready for discharge DS: Diagnosis Discharge Diagnosis (1) Overdose of trazodone: Status: Acute (2) Suicide attempt: Status: Acute DS: Summary Hospital Course Hospital Course: Addendum: Patient was seen by me today and she is otherwise medically stable and had to be sectioned given her suicidal ideations. Patient was adamant in leaving however she has been sectioned and hence can not leave AMA. Patient has been accepted to psych and is being transferred to psych for further medical/psych management. admission hpi Chief Complaint: Overdose with trazodone, suicidal ideation 39-year-old female with history of Jennifer Danlos syndrome, osteogenesis imperfecta, myofascial pain syndrome, migraines, juvenile osteoporosis, asthma, and mood disorder, history of major depression with suicidal attempts at least 6 times in the past. She presented to the emergency room today after attempting suicide by taking a 1000 mg of trazodone. She stated that she has been depressed because of her mother having a terminal ovarian cancer with metastases and is on hospice. EKG demonstrated no prolonged QTC. Poisone control is recommending: > ekgs q2 hours until 3 consecutive EKGs w/ QTC <500 and QRS <100 (2 normal ekgs so far) > 5mg diazepam q 15 minutes until resolution of symptoms or until onset of respiratory depression (has received a total of 10 mg diazepam, clonus improvingother interventions in ED - 50 mg Benadryl and IVF. vitals have remained stable. At the time of my evaluation seems fine Hospital course: 39-year-old female with history of Jennifer Danlos syndrome, osteogenesis imperfecta, myofascial pain syndrome, migraines, juvenile osteoporosis, asthma, and mood disorder, history of major depression with suicidal attempts at least 6 times in the past. She presented to the emergency room today after attempting suicide by taking a 1000 mg of trazodone. She was closely monitored on telemetry for common symptoms of TRazadone OD such ?drowsiness, hyperthermia, dizziness, ataxia, hypotension, and cardiac rhythm disturbances. Severe cases could progress to coma, seizures, or life-threatening arrhythmias. She was hydrated with IVF, follow Poison control recommendation: > ekgs q2 hours until 3 consecutive EKGs w/ QTC <500 and QRS <100 (2 normal ekgs so far) > 5mg diazepam q 15 minutes until resolution of symptoms or until onset of respiratory depression (has received a total of 10 mg diazepam, clonus improving. Her QTc were normal and had no arrythmia, her symptoms of nausea have resolved. She is now denying SI/HI but CARE recommends inpatient admission, she's agreable, section 12 completed. Time Attestation Discharge Coordination Time (in mins): 40 Quality: Safe Use of Opioids Does Pt have an Active Cancer Diagnosis on the Problem List?: No Quality: Stroke Does the patient have a stroke diagnosis?: No Physical Exam Vital Signs: Vital Signs: Last Vital Signs Temp 98.2 F 04/24/25 07:37 Pulse 61 04/24/25 07:37 Resp 16 04/24/25 07:37 BP 115/74 04/24/25 07:37 Pulse Ox 96 04/24/25 07:37 O2 Del Method Room Air 04/24/25 07:37 BMI result Body Mass Index 18.8 Discharge Plan Discharge Anticipated Discharge Date/Time: 04/26/25 14:01 Patient Disposition: Xfer Psychiatric Hosp Discharge Diagnosis: Suicide attempt by overdose Referrals: Debi Machado, RODRIGO [Primary Care Provider, Internal Medicine] - 1 Week Discharge Medications: Continued acetaminophen 325 mg tablet 975 mg PO Q8H PRN (Reason: Pain (Scale Score 1-3)) No Action quetiapine 50 mg tablet 50 mg PO BEDTIME Rx Instructions: Taken with 150mg for TDD of 200mg at bedtime. trazodone 50 mg tablet 50 mg PO BEDTIME PRN (Reason: insomnia) [id number] 50-325-40 mg tablet 1 tab PO DAILY PRN (Reason: migraine) tamsulosin 0.4 mg capsule 0.4 mg PO BEDTIME lithium carbonate 300 mg Tablet Extended Release 300 mg PO BEDTIME 7 Days Qty: 7 3RF hydroxyzine HCl 25 mg tablet 25 mg PO TID PRN (Reason: mild anxiety) 30 Days Qty: 30 0RF quetiapine 150 mg tablet 150 mg PO BEDTIME 30 Days Qty: 30 0RF Rx Instructions: Taken with 50mg for TDD of 200mg at bedtime. Discharge Orders: Discharge Order (Routine); Ordered 04/26/25 Ordered By: Sofia Ng Diet: Advance to usual diet Activity on Discharge: As tolerated Stand Alone Forms: Patient Portal Discharge page Print Language: Icelandic Care Plan Goals: Recovery from suicide attempt by trazodone overdose Health Concerns: Suicide attempt Major depression Plan of Treatment: Inpatient psych treatment Assessment: See above Discharge Date/Time: 04/26/25 17:12
[2025-04-24 15:30] VITALS: BMI 18.8
--- NOTE | 2025-04-24 15:39 | MHC.CLN ---
NUTRITION DIET=REGULAR. DOES NOT WANT ANY NUTRITIONAL SUPPLEMENTS. REPORTED HX ANOREXIA. RECEIVED TREATMENT IN HER TEENS. REPORTS THAT HAS HAD NG TUBE FEEDING AND DOES NOT WANT. REPORTS RECEIVING TPN 09/2024 AT ANOTHER FACILITY. QUALIFIES MODERATELY MALNOURISHED IN THE CONTEXT OF CHRONIC ILLNESS. MAY BENEFIT FROM EATING DISORDER TREATMENT. FOLLOW FOR PO INTAKE. SEE CLINICAL NUTRITION ASSESSMENT 04/24/25.
[2025-04-24 16:00] VITALS: BP 106/65; PULSE 75; RESP 18; TEMP 37.1; O2SAT 97
[2025-04-24] MEDS: 0.9 % Sodium Chloride Flush 3 ML SYRINGE IVFLUSH ×2 (16:12→21:50)
[2025-04-24 19:31] VITALS: BP 102/53; PULSE 64; RESP 18; TEMP 36.8; O2SAT 95
[2025-04-24 20:00] VITALS: BP 116/60
[2025-04-25 03:09] VITALS: BP 102/63; PULSE 52; RESP 18; TEMP 36.8; O2SAT 96
[2025-04-25 07:02] VITALS: BP 110/70; PULSE 60; RESP 18; TEMP 36.7; O2SAT 98
[2025-04-25] MEDS: 0.9 % Sodium Chloride Flush 3 ML SYRINGE IVFLUSH ×2 (08:48→15:32)
--- NOTE | 2025-04-25 12:40 | HO.PM.IMPN ---
Subjective Subjective Date of Service: 04/25/25 Interval History: Pt seen this am, awaiting psych med, medically ready, calm , pleasant and cooperative Review of Systems -ve for all sx Physical Exam Exam: Exam: General: AO X 3, no acute distress Resp: CTA bilateral CVS: S1,S2,RRR GI: +BS, NT, no distention Skin: No rash Neuro: motor grossly intact Psych: appropriate affect , no SI/HI Vital Signs: Vital Signs: Last Vital Signs Temp 98.0 F 04/25/25 07:02 Pulse 60 04/25/25 07:02 Resp 18 04/25/25 07:02 BP 110/70 04/25/25 07:02 Pulse Ox 98 04/25/25 07:02 O2 Del Method Room Air 04/25/25 07:02 BMI result Body Mass Index 18.8 Objective Data Active Medications Acetaminophen (Acetaminophen 325 Mg Tablet) 650 mg PO Q6H PRN PRN Reason: Pain, Mild 1-3,fever,headache Last Admin: 04/24/25 14:31 Dose: 650 mg Documented By: MAGALY Acetaminophen/Butalbital/Caffeine (Butalb/Acetamin/Caff 50/325/40 Tablet) 1 tab PO DAILY PRN PRN Reason: migraine pain Albuterol Sulfate (Albuterol Sulfate 90 Mcg 8 Gm Inhaler) 2 puff INHALE QID PRN PRN Reason: Shortness of Breath Calcium Carbonate (Calcium Carbonate 750 Mg Tab.Chew) 750 mg PO Q4H PRN PRN Reason: Heartburn Clonidine HCl (Clonidine Hcl 0.1 Mg Tablet) 0.1 mg PO BID PRN; Protocol PRN Reason: Anxiety Last Admin: 04/23/25 16:02 Dose: 0.1 mg Documented By: DAMIAN Diphenhydramine HCl (Diphenhydramine Hcl 50 Mg/Ml Vial) 25 mg IVPUSH Q6H PRN PRN Reason: Nausea and Vomiting Last Admin: 04/25/25 09:29 Dose: 25 mg Documented By: JEANIE Enoxaparin Sodium (Enoxaparin Sodium 40 Mg/0.4 Ml Syringe) 40 mg SUBCUT Q24H [facility] Last Admin: 04/24/25 14:32 Dose: Not Given Documented By: MAGALY Non-Admin Reason: Patient Refused Hydroxyzine HCl (Hydroxyzine Hcl 10 Mg Tablet) 10 mg PO 5XD PRN PRN Reason: Anxiety Last Admin: 04/24/25 18:24 Dose: 10 mg Documented By: MAGALY Lurasidone HCl (Lurasidone Hcl 20 Mg Tablet) 20 mg PO DAILY [facility] Last Admin: 04/25/25 08:21 Dose: Not Given Documented By: JEANIE Non-Admin Reason: Patient Refused Lurasidone HCl (Lurasidone Hcl 40 Mg Tablet) 40 mg PO DAILY [facility] Last Admin: 04/25/25 08:21 Dose: Not Given Documented By: JEANIE Non-Admin Reason: Patient Refused Magnesium Hydroxide (Milk Of Magnesia 30 Ml Oral.Susp) 30 ml PO DAILY PRN PRN Reason: Constipation Meclizine HCl (Meclizine Hcl 25 Mg Tablet) 25 mg PO DAILY PRN PRN Reason: motion sickness Melatonin (Melatonin 3 Mg Tablet) 6 mg PO BEDTIME PRN PRN Reason: Insomnia Last Admin: 04/24/25 20:15 Dose: 6 mg Documented By: BERNADINE Polyethylene Glycol (Polyethylene Glycol 3350 17 Gm Powd.Pack) 17 gm PO DAILY PRN PRN Reason: Constipation Quetiapine Fumarate (Quetiapine Fumarate 50 Mg Tablet) 50 mg PO BEDTIME [facility] Last Admin: 04/24/25 20:11 Dose: 50 mg Documented By: BERNADINE Quetiapine Fumarate (Quetiapine Fumarate 50 Mg Tablet) 150 mg PO BEDTIME [facility] Last Admin: 04/24/25 20:10 Dose: 150 mg Documented By: BERNADINE Sodium Chloride (0.9 % Sodium Chloride Flush 3 Ml Syringe) 3 ml IVFLUSH QSHIFT [facility] Last Admin: 04/25/25 08:48 Dose: 3 ml Documented By: JEANIE Tamsulosin HCl (Tamsulosin Hcl 0.4 Mg Capsule) 0.4 mg PO BEDTIME [facility] Last Admin: 04/24/25 20:11 Dose: 0.4 mg Documented By: BERNADINE Labs 04/22/25 11:19 04/23/25 07:29 Assessment and Plan (1) Suicidal ideation: Status: Acute (2) History of suicide attempt: Status: Acute (3) PTSD (post-traumatic stress disorder): Status: Acute Plan 39-year-old female with history of Jennifer Danlos syndrome, osteogenesis imperfecta, myofascial pain syndrome, migraines, juvenile osteoporosis, asthma, and mood disorder, history of major depression with suicidal attempts at least 6 times in the past. She presented to the emergency room after attempting suicide by taking a 1000 mg of trazodone. Plan: Has no symptoms realted to trazadone OD, QTc remain normal. She denies SI/HI at this time, however given the gravity of her action, she required Psych admission and will be admitted once bed is available. on lurasidone and seroquel, awaiting psych bed medically ready Quality Stroke Does the patient have a stroke diagnosis?: No VTE Prior VTE?: No VTE Risk Level:: Medical - moderate - high VTE Device Contraindication: Treatment Not Indicated VTE Drug Contraindication: N/A - Med Ordered
--- NOTE | 2025-04-25 13:19 | MHC.CM.PN ---
EMR REVIEWED, PT MEDICALLY CLEARED, PSYCH IPLOC BED SEARCH, UPDATED SEC 12 04/25 IN CHART, CM WILL CONT TO FOLLOW.
[2025-04-25 15:20] VITALS: BP 105/58; PULSE 82; RESP 18; TEMP 36.9; O2SAT 97
[2025-04-25 20:00] VITALS: BP 116/73; PULSE 73; RESP 16; TEMP 36.6; O2SAT 98
[2025-04-26 00:47] VITALS: BP 92/55; PULSE 59; RESP 16; TEMP 36.3; O2SAT 96
[2025-04-26 07:34] VITALS: BP 107/64; PULSE 62; RESP 18; TEMP 36.4; O2SAT 95
--- NOTE | 2025-04-26 08:13 | P.PNIM_ITS ---
Subjective Subjective Date of Service: 04/26/25 Physical Exam 2 Vital Signs: Vital Signs: Last Vital Signs Temp 97.6 F 04/26/25 07:34 Pulse 62 04/26/25 07:34 Resp 18 04/26/25 07:34 BP 107/64 04/26/25 07:34 Pulse Ox 95 04/26/25 07:34 O2 Del Method Room Air 04/26/25 07:34 BMI result Body Mass Index 18.8 Objective Data Active Medications Acetaminophen (Acetaminophen 325 Mg Tablet) 650 mg PO Q6H PRN PRN Reason: Pain, Mild 1-3,fever,headache Last Admin: 04/25/25 20:52 Dose: 650 mg Documented By: KELSY Acetaminophen/Butalbital/Caffeine (Butalb/Acetamin/Caff 50/325/40 Tablet) 1 tab PO DAILY PRN PRN Reason: migraine pain Albuterol Sulfate (Albuterol Sulfate 90 Mcg 8 Gm Inhaler) 2 puff INHALE QID PRN PRN Reason: Shortness of Breath Calcium Carbonate (Calcium Carbonate 750 Mg Tab.Chew) 750 mg PO Q4H PRN PRN Reason: Heartburn Clonidine HCl (Clonidine Hcl 0.1 Mg Tablet) 0.1 mg PO BID PRN; Protocol PRN Reason: Anxiety Last Admin: 04/25/25 18:26 Dose: 0.1 mg Documented By: JEANIE Diphenhydramine HCl (Diphenhydramine Hcl 50 Mg/Ml Vial) 25 mg IVPUSH Q6H PRN PRN Reason: Nausea and Vomiting Last Admin: 04/25/25 15:27 Dose: 25 mg Documented By: JEANIE Enoxaparin Sodium (Enoxaparin Sodium 40 Mg/0.4 Ml Syringe) 40 mg SUBCUT Q24H [facility] Last Admin: 04/25/25 15:32 Dose: Not Given Documented By: JEANIE Non-Admin Reason: Patient Refused Hydroxyzine HCl (Hydroxyzine Hcl 10 Mg Tablet) 10 mg PO 5XD PRN PRN Reason: Anxiety Last Admin: 04/25/25 18:26 Dose: 10 mg Documented By: JEANIE Lurasidone HCl (Lurasidone Hcl 20 Mg Tablet) 20 mg PO DAILY [facility] Last Admin: 04/26/25 07:23 Dose: Not Given Documented By: JEANIE Non-Admin Reason: Patient Refused Lurasidone HCl (Lurasidone Hcl 40 Mg Tablet) 40 mg PO DAILY [facility] Last Admin: 04/26/25 07:24 Dose: Not Given Documented By: JEANIE Non-Admin Reason: Patient Refused Magnesium Hydroxide (Milk Of Magnesia 30 Ml Oral.Susp) 30 ml PO DAILY PRN PRN Reason: Constipation Meclizine HCl (Meclizine Hcl 25 Mg Tablet) 25 mg PO DAILY PRN PRN Reason: motion sickness Melatonin (Melatonin 3 Mg Tablet) 6 mg PO BEDTIME PRN PRN Reason: Insomnia Last Admin: 04/24/25 20:15 Dose: 6 mg Documented By: BERNADINE Polyethylene Glycol (Polyethylene Glycol 3350 17 Gm Powd.Pack) 17 gm PO DAILY PRN PRN Reason: Constipation Quetiapine Fumarate (Quetiapine Fumarate 50 Mg Tablet) 50 mg PO BEDTIME [facility] Last Admin: 04/25/25 20:53 Dose: 50 mg Documented By: KELSY Quetiapine Fumarate (Quetiapine Fumarate 50 Mg Tablet) 150 mg PO BEDTIME [facility] Last Admin: 04/25/25 20:53 Dose: 150 mg Documented By: KELSY Sodium Chloride (0.9 % Sodium Chloride Flush 3 Ml Syringe) [address] [facility] Last Admin: 04/26/25 00:00 Dose: 3 ml Documented By: KELSY Tamsulosin HCl (Tamsulosin Hcl 0.4 Mg Capsule) 0.4 mg PO BEDTIME [facility] Last Admin: 04/25/25 20:56 Dose: Not Given Documented By: KELSY Non-Admin Reason: Patient Refused Labs 04/22/25 11:19 04/23/25 07:29 Quality Stroke Does the patient have a stroke diagnosis?: No VTE Prior VTE?: No VTE Risk Level:: Medical - moderate - high VTE Device Contraindication: Treatment Not Indicated VTE Drug Contraindication: N/A - Med Ordered
[2025-04-26] MEDS: 0.9 % Sodium Chloride Flush 3 ML SYRINGE IVFLUSH ×2 (08:44)
--- NOTE | 2025-04-26 10:10 | MHC.CLN ---
F/U PT QUALIFIES MODERATELY MALNOURISHED IN THE CONTEXT OF CHRONIC ILLNESS SEE CLINICAL NUTRITION ASSESSMENT 04/24/25 PT REPORTED HX ANOREXIA NERVOSA-RECEIVED TREATMENT IN HER TEENS PO INTAKE 50-100% X 6 MEALS DIET RX:REGULAR REFUSED ANY NUTRITIONAL SUPPLEMENTS MONITOR PO INTAKE AND WEIGHT CLOSELY
--- NOTE | 2025-04-26 11:34 | MHC.CM.PN ---
EMR REVIEWED, PT REMAINS MEDICALLY CLEARED, PT ON SEC 12 AND PSYCH IPLOC BED SEARCH, CM WILL CONT TO FOLLOW.
--- NOTE | 2025-04-26 14:02 | PM.DS ---
DS: Providers Provider Date of Service: 04/26/25 Date of admission: 04/22/25 14:22 Date of discharge: 04/26/25 Primary care physician: Debi Machado CNP Consults: 04/22/25 14:35 Consult for Sitter Routine Reason for consultation: SI, OD 04/23/25 09:04 Inpt CARE Team Crisis Consult Routine Comment: Reason for consultation: OD, medically ready for discharge DS: Diagnosis Discharge Diagnosis (1) Suicidal ideation: Status: Acute (2) History of suicide attempt: Status: Acute (3) PTSD (post-traumatic stress disorder): Status: Acute (4) Overdose of trazodone: Status: Acute (5) Suicide attempt: Status: Acute DS: Summary Hospital Course Hospital Course: Addendum: Patient was seen by me today and she is otherwise medically stable and had to be sectioned given her suicidal ideations. Patient was adamant in leaving however she has been sectioned and hence can not leave AMA. Patient has been accepted to psych and is being transferred to psych for further medical/psych management. admission hpi Chief Complaint: Overdose with trazodone, suicidal ideation 39-year-old female with history of Jennifer Danlos syndrome, osteogenesis imperfecta, myofascial pain syndrome, migraines, juvenile osteoporosis, asthma, and mood disorder, history of major depression with suicidal attempts at least 6 times in the past. She presented to the emergency room today after attempting suicide by taking a 1000 mg of trazodone. She stated that she has been depressed because of her mother having a terminal ovarian cancer with metastases and is on hospice. EKG demonstrated no prolonged QTC. Poisone control is recommending: > ekgs q2 hours until 3 consecutive EKGs w/ QTC <500 and QRS <100 (2 normal ekgs so far) > 5mg diazepam q 15 minutes until resolution of symptoms or until onset of respiratory depression (has received a total of 10 mg diazepam, clonus improvingother interventions in ED - 50 mg Benadryl and IVF. vitals have remained stable. At the time of my evaluation seems fine Hospital course: 39-year-old female with history of Jennifer Danlos syndrome, osteogenesis imperfecta, myofascial pain syndrome, migraines, juvenile osteoporosis, asthma, and mood disorder, history of major depression with suicidal attempts at least 6 times in the past. She presented to the emergency room today after attempting suicide by taking a 1000 mg of trazodone. She was closely monitored on telemetry for common symptoms of TRazadone OD such ?drowsiness, hyperthermia, dizziness, ataxia, hypotension, and cardiac rhythm disturbances. Severe cases could progress to coma, seizures, or life-threatening arrhythmias. She was hydrated with IVF, follow Poison control recommendation: > ekgs q2 hours until 3 consecutive EKGs w/ QTC <500 and QRS <100 (2 normal ekgs so far) > 5mg diazepam q 15 minutes until resolution of symptoms or until onset of respiratory depression (has received a total of 10 mg diazepam, clonus improving. Her QTc were normal and had no arrythmia, her symptoms of nausea have resolved. She is now denying SI/HI but CARE recommends inpatient admission, she's agreable, section 12 completed. Time Attestation Discharge Coordination Time (in mins): 35 Quality: Safe Use of Opioids Does Pt have an Active Cancer Diagnosis on the Problem List?: No Quality: Stroke Does the patient have a stroke diagnosis?: No Physical Exam Exam: Exam: General: AO X 3, no acute distress Resp: CTA bilateral CVS: S1,S2,RRR GI: +BS, NT, no distention Skin: No rash Neuro: motor grossly intact Psych: appropriate affect , no SI/HI Vital Signs: Vital Signs: Last Vital Signs Temp 97.6 F 04/26/25 07:34 Pulse 62 04/26/25 07:34 Resp 18 04/26/25 07:34 BP 107/64 04/26/25 07:34 Pulse Ox 95 04/26/25 07:34 O2 Del Method Room Air 04/26/25 07:34 BMI result Body Mass Index 18.8 Discharge Plan Discharge Anticipated Discharge Date/Time: 04/26/25 14:01 Patient Disposition: Xfer Psychiatric Hosp Discharge Diagnosis: Suicide attempt by overdose Referrals: Debi Machado, RODRIGO [Primary Care Provider, Internal Medicine] - 1 Week Discharge Medications: Continued meclizine 25 mg tablet 25 mg PO DAILY PRN (Reason: motion sickness) Qty: 20 0RF [id number] 50-325-40 mg tablet 1 tab PO DAILY PRN (Reason: migraine pain) Qty: 6 0RF quetiapine [Seroquel] 50 mg tablet 50 mg PO BEDTIME Qty: 30 0RF Rx Instructions: Takes together with 150 for 200mg total dose tamsulosin 0.4 mg Capsule 0.4 mg PO BEDTIME 30 Days Qty: 30 0RF albuterol sulfate 90 mcg/actuation HFA aerosol inhaler 2 puff inhalation QID PRN (Reason: Shortness Of Breath) 30 Days Qty: 6.7 1RF acetaminophen 325 mg tablet 975 mg PO Q8H PRN (Reason: Pain (Scale Score 1-3)) hydroxyzine HCl 10 mg tablet 10 mg PO 5XD PRN (Reason: Anxiety) Rx Instructions: 10 mg orally may take one tablet up to 5 times a day as needed for anxiety at least 2 hours apart; trazodone 50 mg Tablet 50 mg PO BEDTIME PRN (Reason: Sleep) lurasidone [Latuda] 60 mg tablet 60 mg PO DAILY Qty: 14 2RF Rx Instructions: must administer with food (at least 350 calories) clonidine HCl 0.1 mg tablet 0.1 mg PO BID PRN (Reason: anxiety) 7 Days Qty: 14 4RF ibuprofen 800 mg tablet 800 mg PO TID PRN (Reason: Pain (Scale Score 4-6)) quetiapine 150 mg tablet 150 mg PO BEDTIME Rx Instructions: Takes together with 50 to make 200mg total dose Discharge Orders: Discharge Order (Routine); Ordered 04/26/25 Ordered By: Sofia Ng Diet: Advance to usual diet Activity on Discharge: As tolerated Stand Alone Forms: Patient Portal Discharge page Print Language: Marshallese Care Plan Goals: Recovery from suicide attempt by trazodone overdose Health Concerns: Suicide attempt Major depression Plan of Treatment: Inpatient psych treatment Assessment: See above
== END 2025-04-26 17:12 | DRG 918 ==
LOC: HO.ED 13:02 → HO.EDOVER 14:29 → HO.IMC 19:45
PROVIDERS: Emergency Medicine; Physician Assistant Medical; Admitting Provider Internal Medicine; Emergency Provider Emergency Medicine; PCP Nurse Practitioner Family; Visit Provider Student in an Organized Health Care Education/Training Program
DX: T43.212A Poisoning by selective serotonin and norepinephrine reuptake inhibitors, intentional self-harm, initial encounter (principal); Q79.60 Ehlers-Danlos syndrome, unspecified; Q78.0 Osteogenesis imperfecta; G90.81 Serotonin syndrome; F17.210 Nicotine dependence, cigarettes, uncomplicated; Z71.6 Tobacco abuse counseling; M79.18 Myalgia, other site; Z63.79 Other stressful life events affecting family and household; Z79.899 Other long term (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
CPT/HCPCS: 36415; 71046; 80053; 80143; 80178; 80179; 80307; 81001; 83735; 84702; 85025; 93005; 99285; J1200; J1650; J3360; J7120; S9485

== ENCOUNTER → 2025-04-22 11:25 | Outpatient (BNV) | payer MEDICARE, MEDICAID, SELFPAY | PROVIDERS: Admitting Provider Internal Medicine; Emergency Provider Emergency Medicine; PCP Nurse Practitioner Family; Visit Provider Internal Medicine | DX: T43.212A Poisoning by selective serotonin and norepinephrine reuptake inhibitors, intentional self-harm, initial encounter (principal) | CPT/HCPCS: 93010 ==

== ENCOUNTER → 2025-04-22 11:51 | Outpatient (BNV) | payer MEDICARE, MEDICAID, SELFPAY | PROVIDERS: Emergency Provider Emergency Medicine; PCP Nurse Practitioner Family; Visit Provider Radiology Diagnostic Radiology | DX: R45.851 Suicidal ideations (principal) | CPT/HCPCS: 71046 ==

== ENCOUNTER 2025-04-22 14:22 | Outpatient (BNV) | payer MEDICARE, MEDICAID, SELFPAY | END 2025-04-23 08:00 | PROVIDERS: Admitting Provider Internal Medicine; Emergency Provider Emergency Medicine; PCP Nurse Practitioner Family; Visit Provider Internal Medicine | DX: T43.212A Poisoning by selective serotonin and norepinephrine reuptake inhibitors, intentional self-harm, initial encounter (principal) | CPT/HCPCS: 93010 ==

== ENCOUNTER → 2025-04-22 14:22 | Outpatient (BNV) | payer MEDICARE, MEDICAID, SELFPAY | PROVIDERS: Admitting Provider Internal Medicine; Emergency Provider Emergency Medicine; PCP Nurse Practitioner Family; Visit Provider Internal Medicine | DX: T43.211A Poisoning by selective serotonin and norepinephrine reuptake inhibitors, accidental (unintentional), initial encounter (principal); T14.91XA Suicide attempt, initial encounter | CPT/HCPCS: 99223; 99232 ==

== ENCOUNTER 2025-04-26 17:23 | Inpatient (IN) | payer MEDICARE, MEDICAID, SELFPAY ==
--- OUTSIDE RECORDS SUMMARY | 2025-04-26 18:04 | XMS_ITS | Clinical Summary ---
Author Organization [facility] Address [address] [place] [phone] Phone Care Team Providers Care Sweeping Compound Blender Name Role Phone Cassia Alanis Primary Care Provider [phone] Allergies Active Allergy Reactions Criticality Noted Date [...] topic Medical Devices Not on file Insurance [facility] MEDICARE PART A & B [place] PART [place] & B [facility] MEDICARE PART A & B Care Teams Sweeping Compound Blender Relationship Specialty Start Date End Date Cassia Alanis DO [address] [place] [address] PCP - General Family Medicine 09/01/23 Additional Source Comments The information contained in this document represents components of the legal health record. It is not the complete legal health record.[facility]
--- OUTSIDE RECORDS SUMMARY | 2025-04-26 18:04 | XMS_ITS | Encounter Summary ---
Author Organization [facility] Address [address] [place] [address] Care Team Providers Care Vice President Of Contracts Name Role Phone Unavailable Primary Care Provider Unavailabl e Encounter Details Date Type Department Care Team (Late st Contact Info) Description 08/03/2024 Lab Requisition [facility] - Main Lab [address] [facility] [place] [address] Shavonne Zavaleta, MAGDA [address] [place] [address] Other m[facility] (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 Social History Tobacco Use [...] AM EST Other m[facility] (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 HEMOGLOBIN A1C Routine 08/03/2024 7:00 AM EST Other m[facility] (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 LITHIUM LEVEL Routine 08/03/2024 7:00 AM EST Other medical terminologist (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 documented in this encounter Results * (ABNORMAL) [place] level (08/03/2024 7:00 AM EST) [place] Level 0.5(L) 0.6 - 1.2 mEq/L LAB CHEMISTRY METHOD 08/03/2024 1:31 PM EST [facility] Blood Venous blood specimen / Unknown Venipuncture / Unknown 08/03/2024 7:00 AM EST 08/03/2024 12:08 PM EST us Shavonne Zavaleta HARNESS MAKER LAB BLOOD ORDERABLES Fi nal Result [facility] [address] [place] [address], [place] [phone] * (ABNORMAL) Lipid panel with reflex to direct LDL (08/03/2024 7:00 AM EST) Cholesterol 201(H) 0 - 200 mg/dL LAB CHEMISTRY METHOD 08/03/2024 1:28 PM [facility] Triglycerides 185(H) 0 - 150 mg/dL LAB CHEMISTRY METHOD 08/03/2024 1:28 PM [facility] HDL 87 >=40 mg/dL LAB CHEMISTRY METHOD 08/03/2024 1:28 PM [facility] LDL Calculated 77 0 - 100 mg/dL LAB CHEMISTRY METHOD 08/03/2024 1:28 PM [facility] VLDL Cholesterol Rahul 37 mg/dL LAB CHEMISTRY METHOD 08/03/2024 1:28 PM EST [facility] Non HDL Chol. (LDL+VLDL) 114 <145 mg/dL LAB CHEMISTRY METHOD 08/03/2024 1:28 PM [facility] Chol/HDL Ratio 2.3 0.0 - 4.4 LAB CHEMISTRY METHOD 08/03/2024 1:28 PM [facility] Blood Venous blood specimen / Unknown Venipuncture / Unknown 08/03/2024 7:00 AM EST 08/03/2024 12:08 PM EST us Shavonnecassius Zavaleta HARNESS MAKER LAB BLOOD ORDERABLES Fi nal Result Performing Organization Address City/[facility]/ZIP Co de Phone Number [facility] [address] [place] [address], [place] [phone] * Hemoglobin A1c (08/03/2024 7:00 AM EST) Hemoglobin A1C 4.7 <6.5 % LAB CHEMISTRY METHOD 08/03/2024 1:35 PM EST [facility] Mean Bld Glu Estim. 88 mg/dL LAB CHEMISTRY METHOD 08/03/2024 1:35 PM EST [facility] Blood Venous blood specimen / Unknown Venipuncture / Unknown 08/03/2024 7:00 AM EST 08/03/2024 11:51 AM EST Shavonne Zavaleta HARNESS MAKER LAB BLOOD ORDERABLES Fi nal Result Performing Organization Address [facility]/ZIP Co de Phone Number [facility] [address] [place] [address], [place] [phone] documented in this encounter Visit Diagnoses Diagnosis Other mcc (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 documented in this encounter
--- OUTSIDE RECORDS SUMMARY | 2025-04-26 18:04 | XMS_ITS | Encounter Summary ---
Author Organization [facility] Address [address] [place] [address] Care Team Providers Care Advertising Material Distributor Name Role Phone Unavailable Primary Care Provider Unavailabl e Encounter Details Date Type Department Care Team (Late st Contact Info) Description 08/10/2024 Lab Requisition [facility] - Main Lab [address] [facility] [place] [address] Shavonne Zavaleta, MAGDA [address] [place] [address] Social History Tobacco Use Types [...] to direct LDL Lab Routine Ordered: [address] [place] level Lab Routine Ordered: Hemoglobin A1c Lab Routine Ordered: 1 10/11/2023 documented as of this encounter Visit Diagnoses Not on filedocumented in this encounter
--- OUTSIDE RECORDS SUMMARY | 2025-04-26 18:04 | XMS_ITS | Clinical Summary ---
Author Organization [address] Address [address] [place] [phone] Phone Care Team Providers Care Cyber Security Instructor Name Role Phone Unavailable Primary Care Provider Unavailabl e Surgical History Surgery Date Site/Laterality Comments KNEE SURGERY 07/27/07 PROCEDURE: HISTORICAL KNEE SURGERY; COMMENT: recurrent left patella dislocation- 5 surgeries Left knee OTHER SURGICAL HISTORY PROCEDURE: TX CRANIECTOMY/CRANIOTOMY EXC FOREIGN BODY BRAIN; COMMENT: BB removed - age 3 WRIST SURGERY Left PROCEDURE: HISTORICAL WRIST SURGERY; COMMENT: Multiple wrist surgeries with Dr. Olivas 2017 per patient Medical History Medical History Date Comments Anorexia nervosa (CMS/[facility] V28) 11/16/2007 D X:Anorexia nervosa Asthma DX:Asthma Depression DX:Depression Jennifer-Danlos syndrome 02/28/2008 DX:Jennifer -Danlos syndrome Osteogenesis imperfecta 1998 DX:Osteo mary imperfecta Family History Relation Name Status Comments Brother Alive Healthy Father Alive PA Maternal Grandfather Lung ca ncer Maternal Grandmother [...] LDL Routine 08/03/2024 7:00 AM EST Other compliance spec (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 from Last 3 Months [...] Fi nal Result [facility] [address] [place] [address], from Last 3 Months or Most Recently Relevant to Health Maintenance
--- OUTSIDE RECORDS SUMMARY | 2025-04-26 18:05 | XMS_ITS | Encounter Summary ---
Author Organization [facility] Address [address] [place] [address] Phone Care Team Providers Care Teacher Early Childhood Development Name Role Phone Thuan Zarate MD Primary Care Provider [phone] Cassia Alanis DO Primary Care Provider [phone] Encounter Details Date Type Department Care Team (Latest Contact Info) Description 10/11/2020 Transcribe Orders Virtual Department [address] [place] [phone] Brent Delgado MD [address] [place] [phone] [email or web address] Encounter for laboratory testing for COVID-19 virus [...] documented as of this encounter Care Teams Teacher Early Childhood Development Relationship Specialty Start Date End Date Thuan Zarate MD [address] [facility] [address] [place] [address] [email or web address] PCP - General Family Medicine 10/11/20 08/31/23 Cassia Alanis DO [address] [place] [phone] [email or web address] PCP - General Family Medicine 09/01/23 documented as of this encounter Additional Source Comments The information contained in this document represents components of the legal health record. It is not the complete legal health record.[facility]
--- OUTSIDE RECORDS SUMMARY | 2025-04-26 18:05 | XMS_ITS | Encounter Summary ---
Author Organization [facility] Address [address] [facility] [address] [place] [address] Phone Care Team Providers Care Wharf Builder Name Role Phone Cassia Alanis DO Primary Care Provider [phone] Encounter Details Date Type Department Care Team (Latest Contact Info) Description 09/08/2023 Transcribe Orders Virtual Department [address] [place] [address] Cassia Alanis DO [address] [place], [place] [phone] [email or web address] Other specified congenital malformations of skin [...] imperfecta documented in this encounter Care Teams Wharf Builder Relationship Specialty Start Date End Date Cassia Alanis DO [address] [place], [place] [phone] [email or web address] PCP - General Family Medicine 09/01/23 documented as of this encounter Additional Source Comments The information contained in this document represents components of the legal health record. It is not the complete legal health record.[facility]
[2025-04-26 18:15] VITALS: BMI 18.8
[2025-04-26 18:36] VITALS: BP 124/82; PULSE 61; TEMP 36.4; O2SAT 99
--- NOTE | 2025-04-26 18:43 | PC.ADMIT ---
Ms. Gonzales was admitted from [facility] to room 516-1 at 5:55pm for suicidal ideation, PTSD and major depression. She was admitted on a Section 12A and declined to sign in and is now here on a 12B. Per the [id number] and the discharge summary from [facility], she was admitted on 04/22 after a suicide attempt in which she swallowed Trazodone 1000mg. She was not able to identify a precipitant to this copywriter. She was cooperative with the skin/ safety check which was unremarkable except for surgical scars on her right knee and toe fungus on her left toe and profoundly overgrown toenails bilaterally. She is malodorous. She is denying SI-HI-AVH. She does have recent stressors including her mother being put on hospice after being recently diagnosed with ovarian CA which as metastasized to her liver. Ms. Gonzales is well known on from a previous lengthy admission in the past. She no longer requires straight cath and voids independently with the help of a bladder stimulator. Other medical diagnoses include a seizure disorder, Jennifer Danlos syndrome, osteogenesid imperfecta, myofascial pain syndrome, migraines and asthma. She also has a history of multiple suicidal attempts and also a restrictive eating disorder. She was oriented to the unit and has been placed on safety checks q 15 minutes.
[2025-04-26 19:55] VITALS: BP 138/82; PULSE 66; RESP 18; TEMP 36.4; O2SAT 100
[2025-04-26 21:22] VITALS: BP 138/82
[2025-04-27 07:00] VITALS: BMI 18.8
[2025-04-27 08:00] VITALS: BP 138/83; PULSE 65; RESP 16; TEMP 36.6; O2SAT 97
[2025-04-27 08:19] LABS: Hemoglobin A1C 104.4277 umol/L; Total Hemoglobin (HGBA1C) 3215.4962 umol/L
[2025-04-27 08:38] LABS: Alanine Aminotransferase 6 U/L (0-31); Albumin Level 3.9 g/dL (3.5-5.0); Alkaline Phosphatase 48 U/L (39-117); Anion Gap 10 (12-20); Aspartate Amino Transferase 20 U/L (5-31); Blood Urea Nitrogen 16 mg/dL (9-16); Calcium 8.7 mg/dL (8.4-10.2); Carbon Dioxide 24 mmol/L (22-29); Chloride 112 mmol/L (96-108); Cholesterol 185 mg/dL (<200); Creatinine Clr Calc Pharmacy 70.2; Estimated Glomerular Filt Rate > 60; HDL Cholesterol 47 mg/dL (>40); Potassium 3.6 mmol/L (3.3-5.1); Sodium 142 mmol/L (135-145); Total Protein 6.1 g/dL (6.5-8.0); Triglycerides 233 mg/dL (<150)
--- NOTE | 2025-04-27 09:08 | PC.NURSE ---
Pt refused Latuda this morning, siting not being able to eat 350 calories as the reason.
--- NOTE | 2025-04-27 10:20 | HO.PSYADMNOT ---
HPI Date of Service: 04/27/25 Chief Complaint: SI Sources of Information: patient interviewed, chart reviewed and crisis/core team assessment reviewed HPI Subjective Notes: Castillo Warning and Section 12B Healthcare Proxy: No Guardianship: No Medical Problems Affecting Mental Status: No Narrative: 39 yo female, history of recurrent major depression, ANIBAL, Anorexia, PTSD to ER on 04/22/25 with EMS with increased sx of depression, SI with plan to jump from a bridge or cut her wrists. Hx of attempts via OD, identifies 7 attempts this year. Pt reported, on admit, OD of 1000 mg Trazodone at 0800 04/22/25. Pt with several medical issues including osteogenesis imperfecta, seizures, neurogenic bladder-team reports she no longer self caths as she has success with a bladder stimulator, Jennifer-Danlos syndrome, PPM. Pt was admitted medically 04/22 - 04/26, thought to have serotonin syndrome, and transferred to on a Section XII for further care. Med with pt today- she reports being relieved to be in care and describes an increase of depressive sx. Recent anniversary of father's and reports that mother has been diagnosed with ovarian cancer with liver metastasis. She is at home, hospice is present, and pt and her brother are helping with her care. Pt describes feeling in a very dark place . She has recently reconciled with her mother and to anticipate her loss is overwhelming for her. She reports great difficulty with coping, seeing mother decline and attempting care. Reports brother is not that helpful and at times feels alone with hospice in this process. She does not know if she can live through this. She is tearful during our meeting and we discussed her coping, high level of anxiety and acceptance of this upcoming loss. Past Psychiatric History: 2x 10/04/24-10/06/24 for overdose and again 10/11/24 - 10/18/24 [facility] 10/18-11/03/24 Hospitalized October 2024 at [facility]ized x2 in 2023 at [facility] primarily for eating disorder at age 18. Patient reports multiple hospitalizations for severe low weight and protein in her urine but these hospitalizations were on medical units. In 2021 the patient was in [facility] Emergency room and seen by ABH and crisis after she was found wandering the streets she was expressing paranoid ideation stating that her family was trying to poison her she also reported at that time hearing evil voices that are head she reports she was talking to Kade and making statements I am and I am dying they are trying to kill me Medical Evaluation Reviewed: Yes [facility] Medical History Anorexia Left wrist injury Scoliosis Swelling Osteoporosis Arthritis Asthma Mood disorder Indwelling Joseph catheter present MDD (major depressive disorder), recurrent severe, without psychosis Sacral nerve stimulator present Rectocele Juvenile osteoporosis Compression fx, lumbar spine History of wrist fracture Myofascial pain syndrome Benzodiazepine dependence Anxiety and depression Surgical History History of vaginal surgery History of bladder surgery H/O wrist surgery History of left knee surgery History of right knee surgery History of brain surgery History of placement of ear tubes H/O cystoscopy Family History: Patient reports she grew up in [facility] and live with her mother and father and 2 brothers her father of cancer in 2021 she states her older brother has anxiety and her mother has depression Social History: Patient reports she did have friends growing up and she was straight a student until she left school at the age of 16 due to anorexia she had to drop out of school due to multiple admissions at [facility] she is socially isolated currently Substance History: denies, toxicology negative Trauma History: hx of trauma in addition to Multiple surgeries Diagnostics Vital Signs (24Hr): Vital Signs - 24 hr 04/26/25 18:36 04/26/25 19:55 04/26/25 21:22 Temperature 97.6 F 97.6 F Pulse Rate 61 66 Respiratory Rate 18 Blood Pressure 124/82 138/82 138/82 Pulse Oximetry 99 100 Oxygen Delivery Method Room Air Room Air 04/27/25 08:00 Temperature 97.9 F Pulse Rate 65 Respiratory Rate 16 Blood Pressure 138/83 Pulse Oximetry 97 Oxygen Delivery Method Room Air BMI result Body Mass Index 18.8 Labs 04/27/25 07:58 Labs: Laboratory Results - last 48 hr 04/27/25 04/27/25 07:43 07:58 Sodium 142 Potassium 3.6 Chloride 112 H Carbon Dioxide 24 Anion Gap 10 L BUN 16 Creatinine 0.74 Estim Creat Clear Calc 70.2 Estimated GFR > 60 Random Glucose 91 Estimat Average Glucose 100 Hemoglobin A1c % 5.1 Calcium 8.7 Total Bilirubin 0.3 AST 20 ALT 6 Alkaline Phosphatase 48 Total Protein 6.1 L Albumin 3.9 Triglycerides 233 H Cholesterol 185 LDL Cholesterol, Calc 92 HDL Cholesterol 47 TSH 1.50 Meds/Allergies Meds Home Medications ?Medication ?Instructions ?Recorded ?Confirmed ?Type ibuprofen 800 mg tablet 800 mg PO TID PRN Pain (Scale 11/03/24 04/26/25 History Score 4-6) quetiapine 150 mg tablet 150 mg PO BEDTIME 04/10/25 04/26/25 History acetaminophen 325 mg tablet 975 mg PO Q8H PRN Pain (Scale 04/22/25 04/26/25 History Score 1-3) hydroxyzine HCl 10 mg tablet 10 mg PO 5XD PRN Anxiety 04/22/25 04/26/25 History trazodone 50 mg tablet 50 mg PO BEDTIME PRN Sleep 04/22/25 04/26/25 History Allergies Allergies Allergy/AdvReac Type Severity Reaction Status Date / Time azithromycin Allergy Itching Verified 04/22/25 10:52 levofloxacin (From Levaquin) Allergy Nightmare Verified 04/22/25 10:52 nitrofurantoin (From Allergy Itching Verified 04/22/25 10:52 Macrodantin) Mental Status Exam Mental Status Exam Patient Appearance: Fatigued and Appropriate Patient Orientation: Person, Place, Time and Situation Level of Consciousness: Alert Patient Behavior: Talkative Mood Description: Depressed and Sad Affect Description: Flat Patient Cognition Impaired: No Ability to Follow Directions: Good Speech Pattern: Spontaneous Speech Memory Description: Episodic Impaired Hallucinations: None Delusions: Not Present Perceptual Disturbances: Depersonalization and Derealization Thought Process: Rumination Thought Content: positive for Circumstantial, positive for Perseveration and positive for Suicidal Ideation Depressive Symptoms: Increased Anxiety, Difficulty Sleeping, Changes in Appetite, Feelings of Worthlessness, Hopelessness, Unhappiness, Increased Fatigue, Thoughts of /Suicide, Low Self Esteem and Loss of Energy Judgement: Poor Assessment & Plan Assessment & Plan (1) ANIBAL (generalized anxiety disorder): Status: Acute Code(s): F41.1 - Generalized anxiety disorder (2) Anorexia nervosa: Status: Acute Code(s): F50.00 - Anorexia nervosa, unspecified (3) MDD (major depressive disorder), recurrent severe, without psychosis: Status: Acute Code(s): F33.2 - Major depressive disorder, recurrent severe without psychotic features (4) Intentional overdose: Status: Acute Code(s): T50.902A - Poisoning by unspecified drugs, medicaments and biological substances, intentional self-harm, initial encounter (5) PTSD (post-traumatic stress disorder): Status: Acute Code(s): F43.10 - Post-traumatic stress disorder, unspecified Plan Admit, Section XIIB, 15 minute checks Continue regime Valium 2 mg q 12 hours prn severe anxiety. On 04/28, Valium 1 mg q 12 hours prn severe anxiety, then DC on 04/29 Encourage full milieu Diagnostics as needed Discharge planning Patient educated on: medication risk/benefits and therapeutic strategies Informed Consent: understands and further education needed Reason for continued inpatient stay Substantial Risk for: rapid decompensation and med/psych decompensation Statement Statement: I have reviewed the history and physical and performed a pertinent examination on my patient. No changes have occurred unless specified. If the History and Physical was not performed prior to admission, the Hospitalist's service will be consulted for completing the admission physical. Time Spent With Patient Time: Total time managing care of this patient today ____ minutes.
[2025-04-27 14:46] VITALS: BP 116/75
[2025-04-27 20:00] VITALS: BP 112/68; PULSE 86; RESP 18; TEMP 36.4; O2SAT 95
[2025-04-27 20:47] VITALS: BP 112/68
[2025-04-28 08:17] VITALS: BP 107/62; PULSE 54; TEMP 36.4; O2SAT 98
--- NOTE | 2025-04-28 10:35 | HO.PSYCHPN ---
Subjective Subjective Date of Service: 04/28/25 Reason For Visit: SI Subjective Notes: Section 12B Healthcare Proxy: No Guardianship: No Medical Problems Affecting Mental Status: No Interim History: I don't take Latuda any more. Met with pt to review medications. Wants to continue Valium- we placed a schedule for 2 mg q12 prn for day one and 1 mg q 12 for day two. Discussed concern with addiction sx. Pt would like to return to [place]. She reports being toxic a few times . Encouraged to trial a med which would not place her at such risk, in addition to her OD hx [employer] which is a concern. Several options reviewed. Encouraged to trial low dose Abilify. Dr. Hermosillo will give me what I want. Agrees to a trial dose of Abilify. No active sx of serotonin syndrome with the exception of anxiety which she reports by hx. She denies GI sx today. Will continue to monitor. Medication Compliance: Yes Side effects from medications: No Attending Groups: No Review of Systems no active sx of serotonin syndrome Medical Review of Systems: unchanged Review of Systems Review of Systems anxiety Mental Status Exam Mental Status Exam Patient Appearance: Fatigued and Appropriate Patient Orientation: Person, Place, Time and Situation Level of Consciousness: Alert Patient Behavior: Talkative Mood Description: Depressed and Sad Affect Description: Flat Patient Cognition Impaired: No Ability to Follow Directions: Good Speech Pattern: Spontaneous Speech Memory Description: Episodic Impaired Hallucinations: None Delusions: Not Present Perceptual Disturbances: Depersonalization and Derealization Thought Process: Rumination Thought Content: positive for Circumstantial, positive for Perseveration and positive for Suicidal Ideation Depressive Symptoms: Increased Anxiety, Difficulty Sleeping, Changes in Appetite, Feelings of Worthlessness, Hopelessness, Unhappiness, Increased Fatigue, Thoughts of /Suicide, Low Self Esteem and Loss of Energy Judgement: Poor Diagnostics Vital Signs (24Hr): Vital Signs - 24 hr 04/27/25 14:46 04/27/25 20:00 04/27/25 20:47 Temperature 97.5 F Pulse Rate 86 Respiratory Rate 18 Blood Pressure 116/75 112/68 112/68 Pulse Oximetry 95 Oxygen Delivery Method Room Air 04/28/25 08:17 Temperature 97.5 F Pulse Rate 54 Respiratory Rate Blood Pressure 107/62 Pulse Oximetry 98 Oxygen Delivery Method Room Air BMI result Body Mass Index 18.8 Labs 04/27/25 07:58 Labs: Laboratory Results - last 48 hr 04/27/25 04/27/25 07:43 07:58 Sodium 142 Potassium 3.6 Chloride 112 H Carbon Dioxide 24 Anion Gap 10 L BUN 16 Creatinine 0.74 Estim Creat Clear Calc 70.2 Estimated GFR > 60 Random Glucose 91 Estimat Average Glucose 100 Hemoglobin A1c % 5.1 Calcium 8.7 Total Bilirubin 0.3 AST 20 ALT 6 Alkaline Phosphatase 48 Total Protein 6.1 L Albumin 3.9 Triglycerides 233 H Cholesterol 185 LDL Cholesterol, Calc 92 HDL Cholesterol 47 TSH 1.50 Medications Medications Current Medications Acetaminophen (Acetaminophen 325 Mg Tablet) 650 mg PO Q6H PRN PRN Reason: Headache/Pain, Scale 1-10 Last Admin: 04/26/25 21:24 Dose: 650 mg Acetaminophen (Acetaminophen 325 Mg Tablet) 975 mg PO Q8H PRN PRN Reason: Pain (Scale Score 1-3) Al Hydroxide/Mg Hydroxide (Magnesium Hydrox/Alum Hydrox 30 Ml Oral.Susp) 30 ml PO Q6H PRN PRN Reason: Heartburn/Nausea Albuterol Sulfate (Albuterol Sulfate 90 Mcg 8 Gm Inhaler) 2 puff INHALE QID PRN PRN Reason: Shortness of Breath Clonidine HCl (Clonidine Hcl 0.1 Mg Tablet) 0.1 mg PO BID PRN; Protocol PRN Reason: Anxiety Last Admin: 04/27/25 20:47 Dose: 0.1 mg Diazepam (Diazepam 2 Mg Tablet) 1 mg PO Q12H PRN PRN Reason: severe anxiety Stop: 04/29/25 08:00 Last Admin: 04/28/25 09:17 Dose: 1 mg Hydroxyzine HCl (Hydroxyzine Hcl 25 Mg Tablet) 25 mg PO Q6H PRN PRN Reason: mild anxiety Last Admin: 04/27/25 14:46 Dose: 25 mg Ibuprofen (Ibuprofen 800 Mg Tablet) 800 mg PO TID PRN PRN Reason: Pain (Scale Score 4-6) Lurasidone HCl (Lurasidone Hcl 20 Mg Tablet) 60 mg PO DAILY ELMO Last Admin: 04/28/25 09:08 Dose: Not Given Magnesium Hydroxide (Milk Of Magnesia 30 Ml Oral.Susp) 30 ml PO DAILY PRN PRN Reason: Constipation Meclizine HCl (Meclizine Hcl 25 Mg Tablet) 25 mg PO DAILY PRN PRN Reason: motion sickness Nicotine (Nicotine 21 Mg Patch.Td24) 21 mg TRANSDERMA DAILY PRN PRN Reason: smoking cessation Nicotine Polacrilex (Nicotine Polacrilex 2 Mg Gum) 4 mg BUCCAL Q2H PRN PRN Reason: Nicotine Cravings Olanzapine (Olanzapine 5 Mg Tablet) 5 mg PO TID PRN PRN Reason: agitation Quetiapine Fumarate (Quetiapine Fumarate 100 Mg Tablet) 150 mg PO BEDTIME ELMO Last Admin: 04/27/25 20:43 Dose: 150 mg Quetiapine Fumarate (Quetiapine Fumarate 50 Mg Tablet) 50 mg PO BEDTIME ELMO Last Admin: 04/27/25 20:43 Dose: 50 mg Tamsulosin HCl (Tamsulosin Hcl 0.4 Mg Capsule) 0.4 mg PO BEDTIME ELMO Last Admin: 04/27/25 20:43 Dose: 0.4 mg Trazodone HCl (Trazodone Hcl 50 Mg Tablet) 50 mg PO BEDTIME MRX1 PRN PRN Reason: Insomnia Last Admin: 04/27/25 03:09 Dose: 50 mg Allergies Allergies Allergy/AdvReac Type Severity Reaction Status Date / Time azithromycin Allergy Itching Verified 04/22/25 10:52 levofloxacin (From Levaquin) Allergy Nightmare Verified 04/22/25 10:52 nitrofurantoin (From Allergy Itching Verified 04/22/25 10:52 Macrodantin) Assessment & Plan Assessment & Plan (1) ANIBAL (generalized anxiety disorder): Status: Acute Code(s): F41.1 - Generalized anxiety disorder (2) Anorexia nervosa: Status: Acute Code(s): F50.00 - Anorexia nervosa, unspecified (3) MDD (major depressive disorder), recurrent severe, without psychosis: Status: Acute Code(s): F33.2 - Major depressive disorder, recurrent severe without psychotic features (4) Intentional overdose: Status: Acute Code(s): T50.902A - Poisoning by unspecified drugs, medicaments and biological substances, intentional self-harm, initial encounter (5) PTSD (post-traumatic stress disorder): Status: Acute Code(s): F43.10 - Post-traumatic stress disorder, unspecified Plan Admit, Section XIIB, 15 minute checks Continue regime Valium 2 mg q 12 hours prn severe anxiety. On 04/28, Valium 1 mg q 12 hours prn severe anxiety, then DC on 04/29 Encourage full milieu Diagnostics as needed Discharge planning 04/28: Abilify 5 mg trial Valium taper-return to clonidine as tolerated. Patient educated on: medication risk/benefits Reason for continued inpatient stay Substantial Risk for: rapid decompensation and med/psych decompensation Time Spent With Patient Time: Total time managing care of this patient today ____ minutes.
[2025-04-28 13:09] VITALS: BP 101/70
[2025-04-28 18:37] VITALS: BP 87/61; PULSE 88
[2025-04-28 20:00] VITALS: BP 99/54; PULSE 74; RESP 18; TEMP 37.1; O2SAT 98
[2025-04-29 08:09] VITALS: BP 99/60; PULSE 62; TEMP 36.6; O2SAT 96
--- NOTE | 2025-04-29 08:32 | HO.PSYCHPN ---
Subjective Subjective Date of Service: 04/29/25 Reason For Visit: SI Interim History: Met With patient; discussed with team; reviewed chart pt reports she was doing well, not taking Latuda (had not taken for months) but got overwhelmed with seeing her mother dying and upcoming birthday of her beloved, father. She said in a moment of despair she got suicidal and overdosed...Pt acknowledges that she has intermittent SI often, but is mostly able to work through it and that it resolves on her own. She denies any SI now saying it has remains fully resolved and hopes to be able to discharge soon; she also acknowledges that she will very likely continue to intermittently have SI and that she'll continue to have to learn how process her feeling and stay safe. Discussed medications and she would like to get back on [place], feeling that it helped her mood the most (out of lithium, vraylar and wellbutrin) and also helped lower SI. Tailer In reviewed risks/side-effects of [place]; she said she got lithium toxicity once because she allowed herself to get dehydrated, possibly from purging. She says because it helped she would like to get back on it and will be more careful. Mental Status Exam Mental Status Exam Narrative: Pt is alert and oriented; behavior is cooperative, friendly and calm; patient is not in distress; dressed in hospital attire with unkempt hair but adequate hygiene; undernurished; mood is described as better and affect congruent; eye contact appropriate; Speech is normal rate, volume and prosody and not pressured; no psychomotor agitation/retardation present; thought process is organized and goal directed; Thought content is on tx; otherwise pertinent to relevant topics and without any delusional content, paranoid ideations or grandiosity; denies any SI/HI. Denies AVH and there is no evidence of perceptual disturbance. Patients insight and judgment appear intact. Diagnostics Vital Signs (24Hr): Vital Signs - 24 hr 04/28/25 13:09 04/28/25 18:37 04/28/25 20:00 Temperature 98.7 F Pulse Rate 88 74 Respiratory Rate 18 Blood Pressure 101/70 87/61 L 99/54 L Pulse Oximetry 98 Oxygen Delivery Method Room Air 04/29/25 08:09 Temperature 97.9 F Pulse Rate 62 Respiratory Rate Blood Pressure 99/60 Pulse Oximetry 96 Oxygen Delivery Method Room Air BMI result Body Mass Index 18.8 Labs 04/27/25 07:58 Labs: Laboratory Results - last 48 hr 04/27/25 07:58 Sodium 142 Potassium 3.6 Chloride 112 H Carbon Dioxide 24 Anion Gap 10 L BUN 16 Creatinine 0.74 Estim Creat Clear Calc 70.2 Estimated GFR > 60 Random Glucose 91 Calcium 8.7 Total Bilirubin 0.3 AST 20 ALT 6 Alkaline Phosphatase 48 Total Protein 6.1 L Albumin 3.9 Triglycerides 233 H Cholesterol 185 LDL Cholesterol, Calc 92 HDL Cholesterol 47 TSH 1.50 Medications Medications Current Medications Acetaminophen (Acetaminophen 325 Mg Tablet) 650 mg PO Q6H PRN PRN Reason: Headache/Pain, Scale 1-10 Last Admin: 04/26/25 21:24 Dose: 650 mg Acetaminophen (Acetaminophen 325 Mg Tablet) 975 mg PO Q8H PRN PRN Reason: Pain (Scale Score 1-3) Last Admin: 04/28/25 20:27 Dose: 975 mg Al Hydroxide/Mg Hydroxide (Magnesium Hydrox/Alum Hydrox 30 Ml Oral.Susp) 30 ml PO Q6H PRN PRN Reason: Heartburn/Nausea Albuterol Sulfate (Albuterol Sulfate 90 Mcg 8 Gm Inhaler) 2 puff INHALE QID PRN PRN Reason: Shortness of Breath Aripiprazole (Aripiprazole 5 Mg Tablet) 5 mg PO BEDTIME ELMO Last Admin: 04/28/25 20:29 Dose: 5 mg Clonidine HCl (Clonidine Hcl 0.1 Mg Tablet) 0.1 mg PO BID PRN; Protocol PRN Reason: Anxiety Last Admin: 04/28/25 13:09 Dose: 0.1 mg Hydroxyzine HCl (Hydroxyzine Hcl 25 Mg Tablet) 25 mg PO Q6H PRN PRN Reason: mild anxiety Last Admin: 04/28/25 13:09 Dose: 25 mg Ibuprofen (Ibuprofen 800 Mg Tablet) 800 mg PO TID PRN PRN Reason: Pain (Scale Score 4-6) Magnesium Hydroxide (Milk Of Magnesia 30 Ml Oral.Susp) 30 ml PO DAILY PRN PRN Reason: Constipation Meclizine HCl (Meclizine Hcl 25 Mg Tablet) 25 mg PO DAILY PRN PRN Reason: motion sickness Nicotine (Nicotine 21 Mg Patch.Td24) 21 mg TRANSDERMA DAILY PRN PRN Reason: smoking cessation Nicotine Polacrilex (Nicotine Polacrilex 2 Mg Gum) 4 mg BUCCAL Q2H PRN PRN Reason: Nicotine Cravings Olanzapine (Olanzapine 5 Mg Tablet) 5 mg PO TID PRN PRN Reason: agitation Quetiapine Fumarate (Quetiapine Fumarate 100 Mg Tablet) 150 mg PO BEDTIME ELMO Last Admin: 04/28/25 20:28 Dose: 150 mg Quetiapine Fumarate (Quetiapine Fumarate 50 Mg Tablet) 50 mg PO BEDTIME ELMO Last Admin: 04/28/25 20:29 Dose: 50 mg Tamsulosin HCl (Tamsulosin Hcl 0.4 Mg Capsule) 0.4 mg PO BEDTIME ELMO Last Admin: 04/28/25 20:27 Dose: 0.4 mg Trazodone HCl (Trazodone Hcl 50 Mg Tablet) 50 mg PO BEDTIME MRX1 PRN PRN Reason: Insomnia Last Admin: 04/27/25 03:09 Dose: 50 mg Allergies Allergies Allergy/AdvReac Type Severity Reaction Status Date / Time azithromycin Allergy Itching Verified 04/22/25 10:52 levofloxacin (From Levaquin) Allergy Nightmare Verified 04/22/25 10:52 nitrofurantoin (From Allergy Itching Verified 04/22/25 10:52 Macrodantin) Assessment & Plan Assessment & Plan (1) MDD (major depressive disorder), recurrent severe, without psychosis: Status: Acute Code(s): F33.2 - Major depressive disorder, recurrent severe without psychotic features (2) ANIBAL (generalized anxiety disorder): Status: Acute Code(s): F41.1 - Generalized anxiety disorder (3) Anorexia nervosa: Status: Acute Code(s): F50.00 - Anorexia nervosa, unspecified (4) Intentional overdose: Status: Acute Code(s): T50.902A - Poisoning by unspecified drugs, medicaments and biological substances, intentional self-harm, initial encounter (5) PTSD (post-traumatic stress disorder): Status: Acute Code(s): F43.10 - Post-traumatic stress disorder, unspecified Plan Hospital course: 04/29 pt reports she was doing well, not taking Latuda (had not taken for months) but got overwhelmed with seeing her mother dying and upcoming birthday of her beloved, father. She said in a moment of despair she got suicidal and overdosed...Pt acknowledges that she has intermittent SI often, but is mostly able to work through it and that it resolves on her own. She denies any SI now saying it has remains fully resolved and hopes to be able to discharge soon; she also acknowledges that she will very likely continue to intermittently have SI and that she'll continue to have to learn how process her feeling and stay safe. Discussed medications and she would like to get back on [place], feeling that it helped her mood the most (out of lithium, vraylar and wellbutrin) and also helped lower SI. Tailer In reviewed risks/side-effects of [place]; she said she got lithium toxicity once because she allowed herself to get dehydrated, possibly from purging. She says because it helped she would like to get back on it and will be more careful. Formulation: pt has chronic SI and is mostly able to be safe in the community. This overdose had with it rescue factor as she posted on [employer] which is what got police to pick her up; she says police came to her house 3x this same week, called by her friends whom she made aware. Pt says SI remains fully resolved and wants to dc so as to continue being supportive to her mother who is in Hospice. Pt acknowledges her chronic SI will continue to be a struggle which pt herself will not change with being in hospital longer but requires continued work with coping skills as an outpt. Tailer In has worked w/ patient in the past and finds this perspective to be evidence of significant emotional growth. She has a therapist and says part of her attempt was in response to not feeling helped by him with her SI; but she likes her therapist and agrees she needs to discuss this with him which she plans to do. Pt is now restarted on [place] which she said was helpful; while [place] has risks associated with her struggles with purging and overdosing, resume writer agrees that its potential benefits outweigh these risks. Will continue to monitor patient; if she remains stable will proceed with her request for discharge. Plan: dc Latuda: pt says has not taken in 5months Start [place] ER 300mg qhs for depression and chronic SI resume writer agreed to valium 1mg bid prn only while in hospital; she agrees will not continue on discharge continue Seroquel 200mg qhs Admit, Section XIIB, 15 minute checks Continue regime Encourage full milieu Diagnostics as needed Discharge planning Patient educated on: diagnosis, medication risk/benefits, therapeutic strategies and medical condition Informed Consent: understands Reason for continued inpatient stay Substantial Risk for: stable for discharge, rapid decompensation and med/psych decompensation Time Spent With Patient Time: Total time managing care of this patient today ____ minutes.
[2025-04-29 11:50] VITALS: BP 220/68
[2025-04-29 12:02] VITALS: BP 112/80; PULSE 73
[2025-04-29 15:58] VITALS: BP 105/74; PULSE 92
[2025-04-29 19:37] VITALS: BP 87/52; PULSE 73; RESP 16; TEMP 36.9; O2SAT 99
[2025-04-30 07:47] VITALS: BP 111/71; PULSE 74; TEMP 36.4; O2SAT 99
[2025-04-30 09:17] VITALS: BP 97/62
[2025-04-30 13:24] VITALS: BP 97/60
--- NOTE | 2025-04-30 16:52 | HO.PSYCHPN ---
Subjective Subjective Date of Service: 04/30/25 Reason For Visit: SI Interim History: Met with patient; discussed with team Patient reports that she is good and tolerating lithium; patient says she slept well enough. She remains with intermittent SI but says she is able to dismiss it. She said she considered respite but feels ready to go home and says she will just need to continue with outpatient therapy. Mental Status Exam Mental Status Exam Narrative: Pt is alert and oriented; behavior is cooperative, friendly and calm; patient is not in distress; dressed in hospital attire with unkempt hair but adequate hygiene; undernurished; mood is described as good and affect congruent; eye contact appropriate; Speech is normal rate, volume and prosody and not pressured; no psychomotor agitation/retardation present; thought process is organized and goal directed; Thought content is on tx; otherwise pertinent to relevant topics and without any delusional content, paranoid ideations or grandiosity; intermittent, fleeting SI (which is baseline); no HI. Denies AVH and there is no evidence of perceptual disturbance. Patients insight and judgment at baseline, fair and adequate. Diagnostics Vital Signs (24Hr): Vital Signs - 24 hr 04/29/25 19:37 04/30/25 07:47 04/30/25 09:17 Temperature 98.4 F 97.5 F Pulse Rate 73 74 Respiratory Rate 16 Blood Pressure 87/52 L 111/71 97/62 Pulse Oximetry 99 99 Oxygen Delivery Method Room Air Room Air 04/30/25 13:24 Temperature Pulse Rate Respiratory Rate Blood Pressure 97/60 Pulse Oximetry Oxygen Delivery Method BMI result Body Mass Index 18.8 Labs 04/27/25 07:58 Medications Medications Current Medications Acetaminophen (Acetaminophen 325 Mg Tablet) 975 mg PO Q8H PRN PRN Reason: Pain (Scale Score 1-3) Last Admin: 04/28/25 20:27 Dose: 975 mg Al Hydroxide/Mg Hydroxide (Magnesium Hydrox/Alum Hydrox 30 Ml Oral.Susp) 30 ml PO Q6H PRN PRN Reason: Heartburn/Nausea Albuterol Sulfate (Albuterol Sulfate 90 Mcg 8 Gm Inhaler) 2 puff INHALE QID PRN PRN Reason: Shortness of Breath Clonidine HCl (Clonidine Hcl 0.1 Mg Tablet) 0.1 mg PO Q4H PRN; Protocol PRN Reason: Anxiety Last Admin: 04/30/25 13:24 Dose: 0.1 mg Diazepam (Diazepam 2 Mg Tablet) 1 mg PO BID PRN PRN Reason: mod to severe anxiety Last Admin: 04/30/25 07:46 Dose: 1 mg Hydroxyzine HCl (Hydroxyzine Hcl 25 Mg Tablet) 25 mg PO Q6H PRN PRN Reason: mild anxiety Last Admin: 04/30/25 11:20 Dose: 25 mg [place] Carbonate ([place] Carbonate Er 300 Mg Tablet.Er) 300 mg PO BEDTIME ELMO Last Admin: 04/29/25 20:29 Dose: 300 mg Magnesium Hydroxide (Milk Of Magnesia 30 Ml Oral.Susp) 30 ml PO DAILY PRN PRN Reason: Constipation Meclizine HCl (Meclizine Hcl 25 Mg Tablet) 25 mg PO DAILY PRN PRN Reason: motion sickness Nicotine (Nicotine 21 Mg Patch.Td24) 21 mg TRANSDERMA DAILY PRN PRN Reason: smoking cessation Nicotine Polacrilex (Nicotine Polacrilex 2 Mg Gum) 4 mg BUCCAL Q2H PRN PRN Reason: Nicotine Cravings Olanzapine (Olanzapine 5 Mg Tablet) 5 mg PO TID PRN PRN Reason: agitation Last Admin: 04/30/25 16:06 Dose: 5 mg Quetiapine Fumarate (Quetiapine Fumarate 100 Mg Tablet) 150 mg PO BEDTIME ELMO Last Admin: 04/29/25 20:29 Dose: 150 mg Quetiapine Fumarate (Quetiapine Fumarate 50 Mg Tablet) 50 mg PO BEDTIME ELMO Last Admin: 04/29/25 20:36 Dose: 50 mg Tamsulosin HCl (Tamsulosin Hcl 0.4 Mg Capsule) 0.4 mg PO BEDTIME ELMO Last Admin: 04/29/25 20:29 Dose: 0.4 mg Trazodone HCl (Trazodone Hcl 50 Mg Tablet) 50 mg PO BEDTIME MRX1 PRN PRN Reason: Insomnia Last Admin: 04/30/25 02:49 Dose: 50 mg Allergies Allergies Allergy/AdvReac Type Severity Reaction Status Date / Time azithromycin Allergy Itching Verified 04/22/25 10:52 levofloxacin (From Levaquin) Allergy Nightmare Verified 04/22/25 10:52 nitrofurantoin (From Allergy Itching Verified 04/22/25 10:52 Macrodantin) Assessment & Plan Assessment & Plan (1) MDD (major depressive disorder), recurrent severe, without psychosis: Status: Acute Code(s): F33.2 - Major depressive disorder, recurrent severe without psychotic features (2) ANIBAL (generalized anxiety disorder): Status: Acute Code(s): F41.1 - Generalized anxiety disorder (3) Anorexia nervosa: Status: Acute Code(s): F50.00 - Anorexia nervosa, unspecified (4) Intentional overdose: Status: Acute Code(s): T50.902A - Poisoning by unspecified drugs, medicaments and biological substances, intentional self-harm, initial encounter (5) PTSD (post-traumatic stress disorder): Status: Acute Code(s): F43.10 - Post-traumatic stress disorder, unspecified Plan Hospital course: 04/29 pt reports she was doing well, not taking Latuda (had not taken for months) but got overwhelmed with seeing her mother dying and upcoming birthday of her beloved, father. She said in a moment of despair she got suicidal and overdosed...Pt acknowledges that she has intermittent SI often, but is mostly able to work through it and that it resolves on her own. She denies any SI now saying it has remains fully resolved and hopes to be able to discharge soon; she also acknowledges that she will very likely continue to intermittently have SI and that she'll continue to have to learn how process her feeling and stay safe. Discussed medications and she would like to get back on [place], feeling that it helped her mood the most (out of lithium, vraylar and wellbutrin) and also helped lower SI. Layer Out Plate Glass reviewed risks/side-effects of [place]; she said she got lithium toxicity once because she allowed herself to get dehydrated, possibly from purging. She says because it helped she would like to get back on it and will be more careful. 04/30 Patient reports that she is good and tolerating lithium; patient says she slept well enough. She remains with intermittent SI but says she is able to dismiss it. She said she considered respite but feels ready to go home and says she will just need to continue with outpatient therapy. -says to keep lithium at current dose for now Formulation: pt has chronic SI and is mostly able to be safe in the community. This overdose had with it rescue factor as she posted on [employer] which is what got police to pick her up; she says police came to her house 3x this same week, called by her friends whom she made aware. Pt says SI remains fully resolved and wants to dc so as to continue being supportive to her mother who is in Hospice. Pt acknowledges her chronic SI will continue to be a struggle which pt herself will not change with being in hospital longer but requires continued work with coping skills as an outpt. Layer Out Plate Glass has worked w/ patient in the past and finds this perspective to be evidence of significant emotional growth. She has a therapist and says part of her attempt was in response to not feeling helped by him with her SI; but she likes her therapist and agrees she needs to discuss this with him which she plans to do. Pt is now restarted on [place] which she said was helpful; while [place] has risks associated with her struggles with purging and overdosing, securities underwriter agrees that its potential benefits outweigh these risks. Will continue to monitor patient; if she remains stable will proceed with her request for discharge. Plan: dc Latuda: pt says has not taken in 5months continue [place] ER 300mg qhs for depression and chronic SI securities underwriter agreed to valium 1mg bid prn only while in hospital; she agrees will not continue on discharge continue Seroquel 200mg qhs Admit, Section XIIB, 15 minute checks Continue regime Encourage full milieu Diagnostics as needed Discharge planning Patient educated on: diagnosis, medication risk/benefits and therapeutic strategies Informed Consent: understands Reason for continued inpatient stay Substantial Risk for: stable for discharge Time Spent With Patient Time: Total time managing care of this patient today ____ minutes.
[2025-04-30 17:33] VITALS: BP 99/64
[2025-04-30 19:41] VITALS: BP 89/55; PULSE 73; RESP 18; TEMP 36.9; O2SAT 98
[2025-05-01 08:14] VITALS: BP 80/50; PULSE 51; RESP 16; TEMP 36.6; O2SAT 97
[2025-05-01 09:06] VITALS: BP 97/54
[2025-05-01 14:44] VITALS: BP 110/78
[2025-05-01 15:42] VITALS: BMI 34.6
--- NOTE | 2025-05-01 17:45 | HO.PSYCHPN ---
Subjective Subjective Date of Service: 05/01/25 Reason For Visit: SI Interim History: met with pt; discussed with team Patient reports that she is overall doing okay and continues to agree with discharge; still continues to intermittently have SI but no intent and plans and again, reiterates that Yes, it [SI] will always be with me and I just have to deal with it... and agrees with her need to continue working on coping skills as an outpatient. She shared about how she kept herself safe since her last hospitalization about 3 months ago and said she kept herself busy and would listen to music; scientific technical writer reminded her that she was able to do so even off antidepressant medications which she is on now and she agreed that being back on lithium will be helpful. Patient shares that keeping herself safe to honor her father is also motivating for her. She agrees to continue with her therapist and will go to her appointment with him on discharge (appointment is for tomorrow afternoon); discussed DBT and she remembers finding the work sheets helpful during last admission and says she will discuss getting into DBT therapy with her therapist. She asked again about respite which she thinks could be an option for her in the future. Later in the day, scientific technical writer was made aware that despite telling scientific technical writer for the past several days that she had wanted discharge, that she was telling peers that she was being forced to discharge. Patient has borderline personality disorder. Patient is at baseline.? Throughout the past several days, including today, patient has been asking for discharge and telling this scientific technical writer that while she continues to have intermittent? SI she says? I always have SI?.? It is going to be with me for the rest of my life and I just Have to deal with it.? ?She says that she just needs to get back to seeing her therapist and continue to work on coping skills.? Patient has not been hospitalized since this past May acknowledged that for these past several months, despite daily SI, she was able to use coping skills to remain safe, which included staying busy and listening to music Patient has her next therapy appointment tomorrow afternoon. Patient did agree to [facility] services which will increase her support system. Non Ferrous Material Handler discussed stepping down to respite but she says she just wants to go home at this time but would use respite in the future if she felt the need for it. Patient refuses a VNA; she refuses a locked box ; she refuses to go to DBT therapy.? She refuses Despite telling this scientific technical writer that she is ready for discharge and able to remain safe she has started to tell other patients that she is being forced to discharge.? This behaviors consistent with her past admissions and consistent with borderline personality disorder. Diagnostics Vital Signs (24Hr): Vital Signs - 24 hr 04/30/25 19:41 05/01/25 08:14 05/01/25 09:06 Temperature 98.4 F 97.8 F Pulse Rate 73 51 Respiratory Rate 18 16 Blood Pressure 89/55 L 80/50 L 97/54 L Pulse Oximetry 98 97 Oxygen Delivery Method Room Air Room Air 05/01/25 14:44 Temperature Pulse Rate Respiratory Rate Blood Pressure 110/78 Pulse Oximetry Oxygen Delivery Method BMI result Body Mass Index 34.6 Labs 05/02/25 10:41 Medications Medications Current Medications Acetaminophen (Acetaminophen 325 Mg Tablet) 975 mg PO Q8H PRN PRN Reason: Pain (Scale Score 1-3) Last Admin: 04/28/25 20:27 Dose: 975 mg Al Hydroxide/Mg Hydroxide (Magnesium Hydrox/Alum Hydrox 30 Ml Oral.Susp) 30 ml PO Q6H PRN PRN Reason: Heartburn/Nausea Albuterol Sulfate (Albuterol Sulfate 90 Mcg 8 Gm Inhaler) 2 puff INHALE QID PRN PRN Reason: Shortness of Breath Clonidine HCl (Clonidine Hcl 0.1 Mg Tablet) 0.1 mg PO Q4H PRN; Protocol PRN Reason: Anxiety Last Admin: 05/01/25 14:44 Dose: 0.1 mg Diazepam (Diazepam 2 Mg Tablet) 1 mg PO BID PRN PRN Reason: mod to severe anxiety Last Admin: 05/01/25 08:08 Dose: 1 mg Hydroxyzine HCl (Hydroxyzine Hcl 25 Mg Tablet) 25 mg PO Q6H PRN PRN Reason: mild anxiety Last Admin: 05/01/25 09:06 Dose: 25 mg [place] Carbonate ([place] Carbonate Er 300 Mg Tablet.Er) 300 mg PO BEDTIME ELMO Last Admin: 04/30/25 20:36 Dose: 300 mg Magnesium Hydroxide (Milk Of Magnesia 30 Ml Oral.Susp) 30 ml PO DAILY PRN PRN Reason: Constipation Meclizine HCl (Meclizine Hcl 25 Mg Tablet) 25 mg PO DAILY PRN PRN Reason: motion sickness Nicotine (Nicotine 21 Mg Patch.Td24) 21 mg TRANSDERMA DAILY PRN PRN Reason: smoking cessation Nicotine Polacrilex (Nicotine Polacrilex 2 Mg Gum) 4 mg BUCCAL Q2H PRN PRN Reason: Nicotine Cravings Olanzapine (Olanzapine 5 Mg Tablet) 5 mg PO TID PRN PRN Reason: agitation Last Admin: 05/01/25 14:44 Dose: 5 mg Quetiapine Fumarate (Quetiapine Fumarate 100 Mg Tablet) 150 mg PO BEDTIME ELMO Last Admin: 04/30/25 20:38 Dose: 150 mg Quetiapine Fumarate (Quetiapine Fumarate 50 Mg Tablet) 50 mg PO BEDTIME ELMO Last Admin: 04/30/25 20:39 Dose: 50 mg Tamsulosin HCl (Tamsulosin Hcl 0.4 Mg Capsule) 0.4 mg PO BEDTIME ELMO Last Admin: 04/30/25 20:36 Dose: 0.4 mg Trazodone HCl (Trazodone Hcl 50 Mg Tablet) 50 mg PO BEDTIME MRX1 PRN PRN Reason: Insomnia Last Admin: 04/30/25 02:49 Dose: 50 mg Allergies Allergies Allergy/AdvReac Type Severity Reaction Status Date / Time azithromycin Allergy Itching Verified 04/22/25 10:52 levofloxacin (From Levaquin) Allergy Nightmare Verified 04/22/25 10:52 nitrofurantoin (From Allergy Itching Verified 04/22/25 10:52 Macrodantin) Assessment & Plan Assessment & Plan (1) Borderline personality disorder: Status: Acute Code(s): F60.3 - Borderline personality disorder (2) MDD (major depressive disorder), recurrent severe, without psychosis: Status: Acute Code(s): F33.2 - Major depressive disorder, recurrent severe without psychotic features (3) ANIBAL (generalized anxiety disorder): Status: Acute Code(s): F41.1 - Generalized anxiety disorder (4) Anorexia nervosa: Status: Acute Code(s): F50.00 - Anorexia nervosa, unspecified (5) Intentional overdose: Status: Acute Code(s): T50.902A - Poisoning by unspecified drugs, medicaments and biological substances, intentional self-harm, initial encounter (6) PTSD (post-traumatic stress disorder): Status: Acute Code(s): F43.10 - Post-traumatic stress disorder, unspecified Plan Hospital course: 04/29 pt reports she was doing well, not taking Latuda (had not taken for months) but got overwhelmed with seeing her mother dying and upcoming birthday of her beloved, father. She said in a moment of despair she got suicidal and overdosed...Pt acknowledges that she has intermittent SI often, but is mostly able to work through it and that it resolves on her own. She denies any SI now saying it has remains fully resolved and hopes to be able to discharge soon; she also acknowledges that she will very likely continue to intermittently have SI and that she'll continue to have to learn how process her feeling and stay safe. Discussed medications and she would like to get back on [place], feeling that it helped her mood the most (out of lithium, vraylar and wellbutrin) and also helped lower SI. Non Ferrous Material Handler reviewed risks/side-effects of [place]; she said she got lithium toxicity once because she allowed herself to get dehydrated, possibly from purging. She says because it helped she would like to get back on it and will be more careful. 04/30 Patient reports that she is good and tolerating lithium; patient says she slept well enough. She remains with intermittent SI but says she is able to dismiss it. She said she considered respite but feels ready to go home and says she will just need to continue with outpatient therapy. -says to keep lithium at current dose for now *admitting diagnosis remains borderline personality disorder exacerbation. Non Ferrous Material Handler spoke with her PCP who had seen her just a few weeks prior and she reported she was doing well, without depression. Patient herself also reports that her mood was overall good these past months even without antidepressant medication. It seems more likely that the combination of dealing with her mother on hospice and thinking about her now father as his birthday approached, exacerbated her fears of abandonment. It is worth mentioning again that this recent suicide attempt by reported Trazodone overdose was with built-in rescue factor as she alerted her friends on Facebook of her intentions- which is why the police showed up at her house (and why, as she reports, police visited her house 2 other times that same week). Following this attempt she was briefly Hospitalized on 04/22 to be monitored and found to be without any signs or symptoms of trazodone overdose (other than some nausea) including having serial EKGs with normal QTC. During her medical hospitalization she denied any SI and wanted discharge home, but agreed to go inpatient. 05/01 Patient reports that she is overall doing okay and continues to agree with discharge; still continues to intermittently have SI but no intent and plans and again, reiterates that Yes, it [SI] will always be with me and I just have to deal with it... and agrees with her need to continue working on coping skills as an outpatient. She shared about how she kept herself safe since her last hospitalization about 3 months ago and said she kept herself busy and would listen to music; scientific technical writer reminded her that she was able to do so even off antidepressant medications which she is on now and she agreed that being back on lithium will be helpful. Patient shares that keeping herself safe to honor her father is also motivating for her. She agrees to continue with her therapist and will go to her appointment with him on discharge (appointment is for tomorrow afternoon); discussed DBT and she remembers finding the work sheets helpful during last admission; while she has resisted outpatient DBT, she says now that she will discuss getting into DBT therapy with her therapist. She was again offered respite as a step-down. She says she is interested in respite as an option for the future but does not feel a need for it now. Later in the day, scientific technical writer was made aware that despite telling scientific technical writer for the past several days that she had wanted discharge, that she was telling peers that she was being forced to discharge. Impression: Patient is at baseline. She has borderline personality disorder and this recent overdose seems to have been triggered by BPD exacerbation. Throughout the past several days, including today, patient has been asking for discharge and telling this scientific technical writer that while she continues to have intermittent? SI she knows ? I will always have SI?.? It is going to be with me for the rest of my life and I just Have to deal with it.? ?She herself has volunteered that longer stay in the hospital will not change anything and that she just needs to get back to seeing her therapist and continue to work on coping skills.? Patient's current behavior, telling scientific technical writer and social work administrator that she is ready for discharge but then telling peers that she is being forced into discharge, is consistent with her behaviors during previous admissions and is a common way people with BPD express their anxiety. This anxiety is unavoidable and further inpatient stay will not resolve it; whether she stays another day or another month, this anxieties and these behaviors will nearly always appear on the karyn of discharge. Non Ferrous Material Handler and team agree that patient is appropriate for discharge. As mentioned she is at baseline. Further inpatient stay or medication management will not improve her symptoms; rather, further progress requires getting back into consistent outpatient therapy which patient says she is willing to do (additionally, longer inpatient stay is typically counter therapeutic for patients with BPD as it exacerbates BPD symptoms and allows people to avoid doing the work of practicing coping skills) It is worth mentioning that Joselin has remained safe and out of the hospital since this past May and herself acknowledged that for these past several months, despite daily SI, has been able to use coping skills to remain safe, which included staying busy and listening to music. This past reported overdose was without any of the medical complications normally be associated with trazodone overdose and was combined with a rescue factor that made sure she got to the hospital. Patient has her next therapy appointment tomorrow afternoon and she is now linked with [facility] services which will increase her outpatient support. She is also back on lithium which she feels helped her mood in the past and overall lowered frequency of SI. She continues to refuse other interventions that could help, such as refusing a locked box (saying if she wanted to attempt suicide it would not stop her) and refusing a VNA saying she felt it was too intrusive. Despite this, as mentioned she has mostly been able to keep herself safe in the community. At baseline, Joselin is chronically at risk for SI and unsafe behaviors and every discharge carries concern for her. However this does not alter her need to practice coping skills in the community as the only treatment left for her is consistent outpatient therapy (including DBT therapy). Plan: andi Guillaume: pt says has not taken in 5months continue [place] ER 300mg qhs for depression and chronic SI scientific technical writer agreed to valium 1mg bid prn only while in hospital; she agrees will not continue on discharge continue Seroquel 200mg qhs Regarding [place]: -while Lakeport has risks associated with her struggles with purging and overdosing, patient feels this medication has overall been helpful and reduced SI wants to be on it and scientific technical writer agrees that its potential benefits outweigh these risks. Otherwise, the risks and side effects versus benefits of lithium were reviewed with pt, including, but not limited to, damage to kidneys and thyroid; pt was educated to stay hydrated, to watch for symptoms of lithium toxicity (also discussed, including but not limited to nausea, tremor, confusion) and the need to stay away from OTC NSAIDs (specifics reviewed) aside from Tylenol. Patient educated on: diagnosis, medication risk/benefits and therapeutic strategies Informed Consent: understands Reason for continued inpatient stay Substantial Risk for: stable for discharge Time Spent With Patient Time: Total time managing care of this patient today ____ minutes.
[2025-05-01 20:00] VITALS: BP 92/58; PULSE 88; RESP 18; TEMP 36.4; O2SAT 96
[2025-05-02 08:00] VITALS: BP 97/56; PULSE 53; RESP 18; TEMP 36.9; O2SAT 99
[2025-05-02 11:14] LABS: Lithium 0.32 mmol/L (0.60-1.20)
--- NOTE | 2025-05-02 11:14 | P.DS_ITS ---
DS: Providers Provider Date of Service: 05/02/25 Date of admission: 04/26/25 17:23 Date of discharge: 05/02/25 Primary care physician: Unknown Physician Admitting clinician: Kelle Coe Attending physician on discharge: Aurelio Hermosillo DS: Diagnosis Discharge Diagnosis (1) MDD (major depressive disorder), recurrent severe, without psychosis: Status: Acute (2) ANIBAL (generalized anxiety disorder): Status: Acute (3) Anorexia nervosa: Status: Acute (4) Intentional overdose: Status: Acute (5) PTSD (post-traumatic stress disorder): Status: Acute DS: Medications Discharge Medications Home Medications: Home Medications ?Medication ?Instructions ?Recorded ?Confirmed acetaminophen 325 mg tablet 975 mg PO Q8H PRN Pain (Sc jo ann 04/22/25 04/26/25 Score 1-3) Previous Rx's ?Medication ?Instructions ?Recorded albuterol sulfate 90 mcg/actuation 2 puff inhalation Q ID PRN 07/28/24 aerosol inhaler Shortness Of Breath 30 days #6.7 grams tamsulosin 0.4 mg capsule 0.4 mg PO BEDTIME 30 days #3 0 caps 07/28/24 meclizine 25 mg tablet 25 mg PO DAILY PRN motion si ckness 12/22/24 #20 tabs puuelaimfe-[id number]-wmqrplba 1 tab PO DAILY PRN m igraine pain 03/28/25 50 mg-325 mg-40 mg tablet #6 tabs clonidine HCl 0.1 mg tablet 0.1 mg PO BID PRN anxiety 7 days 04/06/25 #14 tabs hydroxyzine HCl 25 mg tablet 25 mg PO TID PRN mild anx iety 30 05/02/25 days #30 tabs lithium carbonate 300 mg 300 mg PO BEDTIME 7 days #7 tabs 05/02/25 tablet,extended release quetiapine 150 mg tablet 150 mg PO BEDTIME 30 days #3 0 tabs 05/02/25 quetiapine 50 mg tablet (Seroquel) 50 mg PO BEDTIME 30 days #30 tabs 05/02/25 Mental Status Exam Mental Status Exam Narrative: Pt is alert and oriented; behavior is cooperative, friendly and calm; patient is not in distress; dressed in hospital attire with unkempt hair but adequate hygiene; undernurished; mood is described as anxious and affect congruent; eye contact appropriate; Speech is normal rate, volume and prosody and not pressured; no psychomotor agitation/retardation present; thought process is organized and goal directed; Thought content is on aftercare, coping with symptoms, tx; otherwise pertinent to relevant topics and without any delusional content, paranoid ideations or grandiosity; intermittent SI (which is baseline); no HI. Denies AVH and there is no evidence of perceptual disturbance. Patients insight and judgment at baseline, fair and adequate. Data Data Completed and Pending Completed studies during hospitalization [Text1]: 04/27/25 04/27/25 05/02/25 07:43 07:58 10:41 Sodium 142 Potassium 3.6 Chloride 112 H Carbon Dioxide 24 Anion Gap 10 L BUN 16 Pending Creatinine 0.74 Pending Estim Creat Clear Calc 70.2 Pending Estimated GFR > 60 Pending Random Glucose 91 Estimat Average Glucose 100 Hemoglobin A1c % 5.1 Calcium 8.7 Total Bilirubin 0.3 AST 20 ALT 6 Alkaline Phosphatase 48 Total Protein 6.1 L Albumin 3.9 Triglycerides 233 H Cholesterol 185 LDL Cholesterol, Calc 92 HDL Cholesterol 47 TSH 1.50 [place] Pending DS: Summary Hospital Course Hospital Course: HPI: 39 yo female, history of recurrent major depression, ANIBAL, Anorexia, PTSD to ER on 04/22/25 with EMS with increased sx of depression, SI with plan to jump from a bridge or cut her wrists. Hx of attempts via OD, identifies 7 attempts this year. Pt reported, on admit, OD of 1000 mg Trazodone at 0800 04/22/25. Pt with several medical issues including osteogenesis imperfecta, seizures, neurogenic bladder-team reports she no longer self caths as she has success with a bladder stimulator, Jennifer-Danlos syndrome, PPM. Pt was admitted medically 04/22 - 04/26, thought to have serotonin syndrome, and transferred to on a Section XII for further care. Med with pt today- she reports being relieved to be in care and describes an increase of depressive sx. Recent anniversary of father's and reports that mother has been diagnosed with ovarian cancer with liver metastasis. She is at home, hospice is present, and pt and her brother are helping with her care. Pt describes feeling in a very dark place . She has recently reconciled with her mother and to anticipate her loss is overwhelming for her. She reports great difficulty with coping, seeing mother decline and attempting care. Reports brother is not that helpful and at times feels alone with hospice in this process. She does not know if she can live through this. She is tearful during our meeting and we discussed her coping, high level of anxiety and acceptance of this upcoming loss. Hospital course: 04/29 pt reports she was doing well, not taking Latuda (had not taken for months) but got overwhelmed with seeing her mother dying and upcoming birthday of her beloved, father. She said in a moment of despair she got suicidal and overdosed...Pt acknowledges that she has intermittent SI often, but is mostly able to work through it and that it resolves on her own. She denies any SI now saying it has remains fully resolved and hopes to be able to discharge soon; she also acknowledges that she will very likely continue to intermittently have SI and that she'll continue to have to learn how process her feeling and stay safe. Discussed medications and she would like to get back on [place], feeling that it helped her mood the most (out of lithium, vraylar and wellbutrin) and also helped lower SI. Pension Fund Manager reviewed risks/side-effects of [place]; she said she got lithium toxicity once because she allowed herself to get dehydrated, possibly from purging. She says because it helped she would like to get back on it and will be more careful. 04/30 Patient reports that she is good and tolerating lithium; patient says she slept well enough. She remains with intermittent SI but says she is able to dismiss it. She said she considered respite but feels ready to go home and says she will just need to continue with outpatient therapy. -says to keep lithium at current dose for now *admitting diagnosis remains borderline personality disorder exacerbation. Pension Fund Manager spoke with her PCP who had seen her just a few weeks prior and she reported she was doing well, without depression. Patient herself also reports that her mood was overall good these past months even without antidepressant medication. It seems more likely that the combination of dealing with her mother on hospice and thinking about her now father as his birthday approached, exacerbated her fears of abandonment. It is worth mentioning again that this recent suicide attempt by reported Trazodone overdose was with built- in rescue factor as she alerted her friends on Facebook of her intentions- which is why the police showed up at her house (and why, as she reports, police visited her house 2 other times that same week). Following this attempt she was briefly Hospitalized on 04/22 to be monitored and found to be without any signs or symptoms of trazodone overdose (other than some nausea) including having serial EKGs with normal QTC. During her medical hospitalization she denied any SI and wanted discharge home, but agreed to go inpatient. 05/01 Patient reports that she is overall doing okay and continues to agree with discharge; still continues to intermittently have SI but no intent and plans and again, reiterates that Yes, it [SI] will always be with me and I just have to deal with it... and agrees with her need to continue working on coping skills as an outpatient. She shared about how she kept herself safe since her last hospitalization about 3 months ago and said she kept herself busy and would listen to music; magnetic tape typewriter operator reminded her that she was able to do so even off antidepressant medications which she is on now and she agreed that being back on lithium will be helpful. Patient shares that keeping herself safe to honor her father is also motivating for her. She agrees to continue with her therapist and will go to her appointment with him on discharge (appointment is for tomorrow afternoon); discussed DBT and she remembers finding the work sheets helpful during last admission; while she has resisted outpatient DBT, she says now that she will discuss getting into DBT therapy with her therapist. She was again offered respite as a step-down. She says she is interested in respite as an option for the future but does not feel a need for it now. -Later in the day, magnetic tape typewriter operator was made aware that despite telling magnetic tape typewriter operator for the past several days that she had wanted discharge, that she was telling peers that she was being forced to discharge. 05/02 On day of discharge, magnetic tape typewriter operator discussed her anxieties about discharge. While she reports she is anxious, she also said that remaining on the unit will not change anything about it and again says I will just have to deal with the thoughts as they come... Pension Fund Manager again discussed the benefits of DBT therapy and patient said she will discuss at her therapy appointment this afternoon. She agrees to reach out for help when she is feeling suicidal. Impression: Patient is at baseline. She has borderline personality disorder and this recent overdose seems to have been triggered by BPD exacerbation. Throughout the past several days, including today, patient has been asking for discharge and telling this magnetic tape typewriter operator that while she continues to have intermittent? SI she knows ? I will always have SI?.? It is going to be with me for the rest of my life and I just Have to deal with it.? ?She herself has volunteered that longer stay in the hospital will not change anything and that she just needs to get back to seeing her therapist and continue to work on coping skills.? Patient's current behavior, telling magnetic tape typewriter operator and social services specialist that she is ready for discharge but then telling peers that she is being forced into discharge, is consistent with her behaviors during previous admissions and is a common way people with BPD express their anxiety. This anxiety is unavoidable and further inpatient stay will not resolve it; whether she stays another day or another month, this anxieties and these behaviors will nearly always appear on the karyn of discharge. Pension Fund Manager and team agree that patient is appropriate for discharge. As mentioned she is at baseline. Further inpatient stay or medication management will not improve her symptoms; rather, further progress requires getting back into consistent outpatient therapy which patient says she is willing to do (additionally, longer inpatient stay is typically counter therapeutic for patients with BPD as it exacerbates BPD symptoms and allows people to avoid doing the work of practicing coping skills) It is worth mentioning that Joselin has remained safe and out of the hospital since this past May and herself acknowledged that for these past several months, despite daily SI, has been able to use coping skills to remain safe, which included staying busy and listening to music. This past reported overdose was without any of the medical complications normally be associated with trazodone overdose and was combined with a rescue factor that made sure she got to the hospital. Patient has her next therapy appointment tomorrow afternoon and she is now linked with [facility] services which will increase her outpatient support. She is also back on lithium which she feels helped her mood in the past and overall lowered frequency of SI. She continues to refuse other interventions that could help, such as refusing a locked box (saying if she wanted to attempt suicide it would not stop her) and refusing a VNA saying she felt it was too intrusive. Despite this, as mentioned she has mostly been able to keep herself safe in the community. At baseline, Joselin is chronically with daily SI and engaging in unsafe behaviors and every discharge carries concern for her. However this does not alter her need to practice coping skills in the community as the only treatment left for her is consistent outpatient therapy (including DBT therapy). Medications: Started on lithium ER 300 mg Discontinued Latuda; patient has not taken in months Continued Seroquel 200 mg q.h.s. Regarding [place]: There is a risk restarting patient on lithium as this can be lethal in overdose; however all of her medications if taken in excess can be lethal. In the past, on lithium, her mood improved the most (which patient herself reports) and lowered the frequency of her SI (as It is 1 of the 2 FDA approved medications for the treatment of chronic suicidality). Given that this medication was effective for both her mood and lowering SI, magnetic tape typewriter operator agrees with patient that the benefit outweighs the risk .... Otherwise, the risks and side effects versus benefits of lithium were reviewed with pt, including, but not limited to, damage to kidneys and thyroid; pt was educated to stay hydrated, to watch for symptoms of lithium toxicity (also d iscussed, including but not limited to nausea, tremor, confusion) and the need to stay away from OTC NSAIDs (specifics reviewed) aside from Tylenol. Time spent discussing smoking cessation with patient: 3 to 10 minutes Status at Discharge Functional status at discharge: independent ambulation Overall status at discharge: patient is back to baseline Time Spent with Patient Time attestation: Total time managing care of this patient today _45___ minutes. Time spent: Greater than 30 minutes Specific discharge activities: Met with patient; discussed with team; charting; prescriptions Discharge Plan Discharge Anticipated Discharge Date/Time: 05/02/25 11:13 Patient Disposition: Home, Self-Care Discharge Diagnosis: Borderline Personality disorder Referrals: Department of Mental Health [Other] - 1 Week Referral Note: *Please call to inquire about the status of your application [facility] [Other] - 05/02/25 2:00 pm Referral Note: Outpatient Therapy Appointment with [facility] [Other] - 1 Week [facility] [Other] - 05/11/25 2:00 pm Referral Note: Medication Management with Steffany Lei Jeannette,Mohamed, LANDSCAPE ARCHITECT AND PLANNER [Nurse Practitioner, Internal Medicine] - 05/22/25 10:45 am Referral Note: Pcp follow up appointment Discharge Medications: New lithium carbonate 300 mg Tablet Extended Release 300 mg PO BEDTIME 7 Days Qty: 7 3RF Continued acetaminophen 325 mg tablet 975 mg PO Q8H PRN (Reason: Pain (Scale Score 1-3)) quetiapine 150 mg tablet 150 mg PO BEDTIME 30 Days Qty: 30 0RF Rx Instructions: Taken with 50mg for TDD of 200mg at bedtime. Changed hydroxyzine HCl 25 mg tablet 25 mg PO TID PRN (Reason: mild anxiety) 30 Days Qty: 30 0RF Discontinued quetiapine [Seroquel] 50 mg tablet 50 mg PO BEDTIME Qty: 30 0RF Rx Instructions: Takes together with 150 for 200mg total dose trazodone 50 mg Tablet 50 mg PO BEDTIME PRN (Reason: Sleep) lurasidone [Latuda] 60 mg tablet 60 mg PO DAILY Qty: 14 2RF Rx Instructions: must administer with food (at least 350 calories) ibuprofen 800 mg tablet 800 mg PO TID PRN (Reason: Pain (Scale Score 4-6)) No Action quetiapine 50 mg tablet 50 mg PO BEDTIME Rx Instructions: Taken with 150mg for TDD of 200mg at bedtime. trazodone 50 mg tablet 50 mg PO BEDTIME PRN (Reason: insomnia) nomnwcyvpi-psaoqftpmjsbf-ypdb 50-325-40 mg tablet 1 tab PO DAILY PRN (Reason: migraine) tamsulosin 0.4 mg capsule 0.4 mg PO BEDTIME Discharge Orders: Discharge Order (Routine); Ordered 05/02/25 Ordered By: Aurelio Hermosillo Diet: Regular diet Activity on Discharge: As tolerated Stand Alone Forms: Patient Portal Discharge page, Community Support Print Language: Bruneian Care Plan Goals: Maintain mood and safe behaviors Take medications as prescribed Practice coping skills Continue with outpatient providers and reach out to them as needed Health Concerns: Mood stability and behaviors Anorexia Osteogenesis imperfecta Jennifer Danlos disease Plan of Treatment: Follow up with your PCP, psychiatric provider and other outpatient providers regarding above concerns Take medications as prescribed Assessment: Risk assessment at time of discharge:? Patient was interviewed prior to discharge and found to be fully oriented and at baseline. Patient has improved insight and judgment and wants to continue treatment. Patient has a safety plan that includes presenting to the closest ER or calling 911 if feeling unsafe.? Patient has been observed closely by nursing and unit staff throughout admission and patient has been in good behavioral control. Discharge Date/Time: 05/02/25 12:05
[2025-05-02 11:31] LABS: Blood Urea Nitrogen 16 mg/dL (9-16); Creatinine Clr Calc Pharmacy 77.9; Estimated Glomerular Filt Rate > 60
== END 2025-05-02 12:05 | disposition home or self-care (01) | DRG 883 ==
PROVIDERS: Admitting Provider Psychiatry & Neurology Psychiatry; Visit Provider Clinical Nurse Specialist Psychiatric/Mental Health, Adult
DX: F60.3 Borderline personality disorder (principal); F33.2 Major depressive disorder, recurrent severe without psychotic features; R45.851 Suicidal ideations; T43.506A Underdosing of unspecified antipsychotics and neuroleptics, initial encounter; F41.1 Generalized anxiety disorder; F17.210 Nicotine dependence, cigarettes, uncomplicated; F43.10 Post-traumatic stress disorder, unspecified; Z71.6 Tobacco abuse counseling; Z91.51 Personal history of suicidal behavior; Z79.899 Other long term (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
CPT/HCPCS: 36415; 80053; 80061; 80178; 82565; 83036; 84443; 84520

== ENCOUNTER → 2025-04-26 17:23 | Outpatient (BNV) | payer MEDICARE, MEDICAID, SELFPAY | PROVIDERS: Admitting Provider Psychiatry & Neurology Psychiatry; Visit Provider Clinical Nurse Specialist Psychiatric/Mental Health, Adult | DX: F41.1 Generalized anxiety disorder (principal); F50.00 Anorexia nervosa, unspecified; F33.2 Major depressive disorder, recurrent severe without psychotic features; T50.902A Poisoning by unspecified drugs, medicaments and biological substances, intentional self-harm, initial encounter; F43.10 Post-traumatic stress disorder, unspecified | CPT/HCPCS: 90792 ==

== ENCOUNTER 2025-05-02 17:13 | Inpatient (IN) | payer MEDICARE, MEDICAID, SELFPAY ==
[2025-05-02 17:28] VITALS: BP 100/65; PULSE 65; RESP 18; TEMP 36.1; O2SAT 96; BMI 21.5
--- NOTE | 2025-05-02 17:35 | PC.NURSE ---
Addendum entered by Renae Nunes RN 05/02/25 18:20: Pt moved out of pod to main ED per MD. Spoke with pharmacist at [facility] [address] who reports last time pt filled clonidine was 04/09/25 and was dispensed 14 tablets. Original Note: Upon arrival to POD pt reported to RN taking approx 15 clonidine pills approx 45 mins before arrival. Reports feeling lightheaded/dizzy. VS obtained. Charge nurse and MD notified.
--- NOTE | 2025-05-02 17:39 | ECG_ITS ---
Test Reason : R/O PROLONGED QT Blood Pressure : */* mmHG Vent. Rate : 58 BPM Atrial Rate : 58 BPM P-R Int : 136 ms QRS Dur : 86 ms QT Int : 452 ms P-R-T Axes : 54 35 53 degrees QTcB Int : 443 ms Artefact Sinus bradycardia Otherwise normal ECG When compared with ECG of 23-Apr-2025 09:14, Nonspecific T wave abnormality no longer evident in Inferior leads Referred By: Generic ED Physician Electronically Signed By: FABIANA WYLIE MD
--- NOTE | 2025-05-02 17:47 | MHC.CARE ---
Dyana Ballesteros from [facility] Co response with the [place] police contacted [facility] Care Team to provide information regarding pt being an expect from the community. She stated that she did not complete a full evaluation however, wanted to provide information that could be helpful when evaluated at the ED. Per Dyana, pt was discharged from today, 05/02/25 after being admitted on 04/26/25. She indicated that pt endorsed an SI statement with plan to jump off the [facility] and was unable to contract for safety in the community. She indicated that she filled out a section 12 primarily due to her risk history but stated that when asked pt was unable to provide reasons as to why she needed to come to the ED and not utilize a less restrictive level of care as she was discharged from [facility] earlier today. Dyana stated that she requested to return to [facility] and just continued to state that she needed to be re admitted for further treatment. Dyana also requested that she be referred to [facility] services if readmitted, however, a [facility]H referral was completed during her last admission and she was just assigned to the [place] office upon discharge. Per [facility] records, pt was offered [facility], PHP, and recommended to obtain a lock box and VNA however, refused all services besides obtaining [facility] upon discharge. Pt has a history of not following treatment recommendations and appears to misuse a higher level of care as she will not agree to any voluntary form of treatment once transitioned back to the community. Information regarding the expect was passed to global creative chairman and pod RN and pt will be referred to Care Team once fully medically cleared. It is also of note, per discharge she has a medication appointment with Barbi Rivera coming up as well as one with [facility] for ongoing outpatient care the following week.
[2025-05-02 17:57] LABS: MANUAL DIFF FLAG NO
[2025-05-02 18:01] LABS: Hematocrit 35.6 % (37.0-47.0); Hemoglobin 11.7 g/dl (12.0-16.0); Imm Gran Abs Auto 0.03 X10*3/uL (0.00-0.03); Imm Gran Pct Auto 0.4 % (0.0-0.4); Lymphocytes Absolute Auto 2.3 X10*3/uL (1.2-4.9); Mean Corpuscular HGB Conc 32.9 g/dl (31.0-35.0); Mean Corpuscular Hemoglobin 32.0 pg (27.0-33.0); Mean Corpuscular Volume 97.3 fL (80.0-98.0); NRBC Abs Auto 0.000 X10*3/uL (0.0-0.012); NRBC Pct Auto 0.0 /100WBC (0.0-0.2); Platelet Count 198 X10*3/uL (160-400); Red Blood Count 3.66 X10*6/uL (4.20-5.50); White Blood Count 8.4 X10*3/uL (4.8-10.8)
--- NOTE | 2025-05-02 18:06 | MHC.CARE ---
Dyana Ballesteros contact information is as followed: [phone]
--- NOTE | 2025-05-02 18:09 | MHC.EDTECH ---
Patient aware urine sample is required. States has a bladder stimulator and is unable to void at this time. RN aware, urine cup at bedside.
--- NOTE | 2025-05-02 18:14 | ED.PSYCH ---
HPI - Psych General Chief Complaint: Psychiatric Symptoms Stated Complaint: SI no plan Section 12 Time Seen by Provider: 05/02/25 17:20 History of Present Illness HPI Narrative: Patient is a 39-year-old female presents today with having suicidal thoughts about an hour prior to arrival patient took 15 tablets of 0.1 clonidine. Patient complaining somewhat lightheaded. She had a history of overdose was just on M5 patient on Thursday took an overdose of trazodone. She said she is very stress in life. Has a history of depression. Related Data Home Medications ?Medication ?Instructions ?Recorded ?Confirmed acetaminophen 325 mg tablet 975 mg PO Q8H PRN Pain (Scale 04/22/25 05/03/25 Score 1-3) jvpaoxsbmw-spcpgytvkkkyf-qtrydoin 1 tab PO DAILY PRN migraine 05/03/25 05/03/25 50 mg-325 mg-40 mg tablet quetiapine 50 mg tablet 50 mg PO BEDTIME 05/03/25 05/03/25 tamsulosin 0.4 mg capsule 0.4 mg PO BEDTIME 05/03/25 05/03/25 trazodone 50 mg tablet 50 mg PO BEDTIME PRN insomnia 05/03/25 05/03/25 Previous Rx's ?Medication ?Instructions ?Recorded hydroxyzine HCl 25 mg tablet 25 mg PO TID PRN mild anxiety 30 05/02/25 days #30 tabs lithium carbonate 300 mg 300 mg PO BEDTIME 7 days #7 tabs 05/02/25 tablet,extended release quetiapine 150 mg tablet 150 mg PO BEDTIME 30 days #30 tabs 05/02/25 Allergies Allergy/AdvReac Type Severity Reaction Status Date / Time azithromycin Allergy Itching Verified 05/02/25 17:32 levofloxacin (From Levaquin) Allergy Nightmare Verified 05/02/25 17:32 nitrofurantoin (From Allergy Itching Verified 05/02/25 17:32 Macrodantin) Review of Systems Review of Systems: Positive suicidal ideation Yes all other systems are reviewed and are negative [facility] Past Medical History Attestation statement: The following information was validated with the patient. Medical History Anorexia Left wrist injury Scoliosis Swelling Osteoporosis Arthritis Asthma Mood disorder Indwelling Joseph catheter present MDD (major depressive disorder), recurrent severe, without psychosis Sacral nerve stimulator present Rectocele Juvenile osteoporosis Compression fx, lumbar spine History of wrist fracture Myofascial pain syndrome Benzodiazepine dependence Anxiety and depression Surgical History History of vaginal surgery History of bladder surgery H/O wrist surgery History of left knee surgery History of right knee surgery History of brain surgery History of placement of ear tubes H/O cystoscopy Family History Family History Mother High blood pressure Cardiovascular disease Father Prostate cancer Social History Social History Household Members: Other Household Members Other:: dying mother, 43y.o. brother Housing: House Are you a primary healthcare analyst to a significant other at home: No Do you presently have visiting nurse or other home services: No Alcohol intake: former Comment: 1:1 sitter Patient Tobacco Use Status: Current everyday Tobacco user Tobacco use type: Cigarette Cigarette Packs Per Day: 0.5 Cigarettes Per Day: 10.0 Years Smoked: Over 20 years Smoked in Last 30 Days: Yes e-Cigarette/Vaping Use: Currently Using Second Hand Smoke Exposure: Yes Use of substances other than those prescribed or required for medical reasons: No Substance Use Type: Opiates Advance Directives: Yes Advance Directives on File: Yes Advance Directives Date on File: 07/29/24 service: No Current occupational status: disabled Current occupational exposures/hazards: No Sexual orientation: Straight/Heterosexual Cognitive needs: No Hearing needs: No Vision needs: No Physical Exam Exam: Exam: Appearance: Alert. Oriented X3. No acute distress. Eyes: Pupils equal, round and reactive to light. ENT: Pharynx normal. Neck: Normal inspection. Neck supple. No lymph nodes noted. No crepitus CVS: Normal heart rate and rhythm. Pulses normal. Normal S1 and S2 Respiratory: No respiratory distress. Breath sounds normal. No Wheezing. No rales Abdomen: Soft and nontender. No rigidity. No distention. good BS x4 Skin: Skin warm and dry. Normal skin color. Normal skin turgor. Extremities: No lower extremity edema. Neurovascular intact to all extremities. No Lacerations. No Rash Neuro: Oriented X 3. No motor deficit. No sensory deficit. Moving all extermities. No slurred speech Vital Signs: Vital Signs: Last Vital Signs Temp 97.9 F 05/02/25 22:00 Pulse 68 05/03/25 01:58 Resp 20 05/03/25 01:58 BP 101/72 05/03/25 01:58 Pulse Ox 99 05/03/25 01:58 O2 Del Method Room Air 05/03/25 00:00 BMI result Body Mass Index 21.5 Course Reevaluation(s) Reevaluation #1: Time: 06:18 Date: 05/03/25 Provider: Jimy Monterroso MD Patient in physician observation for psychiatric evaluation.? No acute events reported overnight. No current complaints. VS stable.? Patient is in bed search status/pending CARE team evaluation. Will continue to monitor. Reevaluation #2: Patient will be admitted to the psych unit at this patient we will end of the ED observation Time: 13:56 Medications Administered Generic Name Dose Route Start Last Admin Trade Name Freq PRN Reason Stop Dose Admin Cephalexin HCl 500 mg 05/03/25 00:00 05/03/25 08:47 Cephalexin 500 Mg Capsule PO 05/09/25 16:01 500 mg Q8H ELMO Administration Discontinued Medications Generic Name Dose Route Start Last Admin Trade Name Freq PRN Reason Stop Dose Admin Sodium Chloride 1,000 mls @ 999 mls/hr 05/02/25 18:15 05/02/25 20:55 Ns IV 05/02/25 19:15 Infused .Q1H1M ELMO Infusion Sodium Chloride 1,000 mls @ 999 mls/hr 05/02/25 18:45 05/02/25 20:55 Ns IV 05/02/25 19:45 Infused .Q1H1M ELMO Infusion Quetiapine Fumarate 200 mg 05/03/25 03:28 05/03/25 03:48 Quetiapine Fumarate 200 Mg Tablet PO 05/03/25 03:29 200 mg ONCE ONE Administration Medical Decision Making Medical Decision Making [facility] Narrative: My interpretation patient's EKG shows sinus rhythm heart rate is 60 UT QRS QTC within normal limits is no acute ST segment elevation. Patient took an overdose of clonidine she claims 15 tablets about an hour prior to arrival. We contacted poison control. Advised observation until 04:00. Patient in no distress. Being monitored. Her urine actually came back with a possible UTI. Will start patient on Keflex previous cultures were reviewed. Patient's white count is normal. There is no signs of sepsis. Patient is awake alert oriented. Urine positive for oxycodone. Positive for benzos. Negative alcohol. Care team was consulted. Patient will most likely require admission due to extensive overdose history. I reviewed patient's previous note recently was just discharged from psychiatry Differential Diagnosis Differential Diagnoses: The differential diagnosis associated with the presentation includes Suicidal ideation suicidal plan gesture overdose of clonidine Admission/Observation Consideration of admission/observation: Escalation of care including admission/observation considered Consult Healthcare Provider Management of the patient was discussed with: Signal Operator Linguist (Care team, poison control) Lab Data MDM Lab Attestation statement: I reviewed the patient's lab results. 05/02/25 17:52 05/02/25 17:52 Labs: Lab Results 05/02/25 05/02/25 05/02/25 Range/Units 17:52 18:36 23:16 WBC 8.4 (4.8-10.8) X10*3/uL RBC 3.66 L (4.20-5.50) X10*6/uL Hgb 11.7 L (12.0-16.0) g/dl Hct 35.6 L (37.0-47.0) % MCV 97.3 (80.0-98.0) fL MCH 32.0 (27.0-33.0) pg MCHC 32.9 (31.0-35.0) g/dl RDW 13.8 (11.0-16.0) % Plt Count 198 (160-400) X10*3/uL MPV 10.8 (9.4-12.3) fL Immature Gran % (Auto) 0.4 (0.0-0.4) % Neut % (Auto) 63.1 (45-73) % Lymph % (Auto) 27.7 (20-40) % [place] % (Auto) 6.4 (2-11) % Eos % (Auto) 1.3 (0-4) % Baso % (Auto) 1.1 (0-2) % Lymph # (Auto) 2.3 (1.2-4.9) X10*3/uL [place] # (Auto) 0.5 (0.1-1.2) X10*3/uL Eos # (Auto) 0.1 (0.0-0.4) X10*3/uL Baso # (Auto) 0.1 (0.0-0.2) X10*3/uL Abs Immat Gran (auto) 0.03 (0.00-0.03) X10*3/uL Absolute Neuts (auto) 5.3 (2.0-8.3) x10*3/uL Absolute Nucleated RBC 0.000 (0.0-0.012) X10*3/uL Nucleated RBC % (auto) 0.0 (0.0-0.2) /100WBC Sodium 142 (135-145) mmol/L Potassium 3.6 (3.3-5.1) mmol/L Chloride 112 H (96-108) mmol/L Carbon Dioxide 24 (22-29) mmol/L Anion Gap 10 L (12-20) BUN 14 (9-16) mg/dL Creatinine 0.80 (0.5-1.4) mg/dL Estim Creat Clear Calc 67.7 Estimated GFR > 60 Random Glucose 118 H (60-115) mg/dL Calcium 8.7 (8.4-10.2) mg/dL Total Bilirubin 0.2 (0.0-1.0) mg/dL AST 17 (5-31) U/L ALT 11 (0-31) U/L Alkaline Phosphatase 55 (39-117) U/L Total Protein 6.5 (6.5-8.0) g/dL Albumin 4.3 (3.5-5.0) g/dL Urine Color Yellow Urine Appearance Cloudy Urine pH 6.5 (5.0-9.0) Ur Specific [place] 1.010 (1.005-1.025) Urine Protein Negative (Neg-Trace) mg/dL Urine Glucose (UA) Negative (Negative) mg/dL Urine Ketones Negative (Negative) mg/dL Urine Blood Negative (Negative) Urine Nitrite Negative (Negative) Ur Leukocyte Esterase Moderate (2+) H (Negative) Urine RBC 11-20 H (0-2) /HPF Urine WBC >50 H (0-5) /HPF Ur Squamous Epith Cells >20 (0-2) /HPF Urine Bacteria 4+ (None Seen) Hyaline Casts 0-2 (0-2) /LPF Salicylates < 5.0 L (15-30) mg/dL Urine Opiates Screen Not Detected (Not Detect) Ur Buprenorphine Scrn Not Detected (Not Detect) ng/mL Ur Oxycodone Screen Positive H (Not Detect) ng/mL Urine Methadone Screen Not Detected (Not Detect) ng/mL Urine Fentanyl Screen Not Detected (Not Detect) Acetaminophen < 3 (<30) mcg/mL Ur Barbiturates Screen Not Detected (Not Detect) Ur Phencyclidine Scrn Not Detected (Not Detect) Ur Amphetamines Screen Not Detected (Not Detect) U Benzodiazepines Scrn POSITIVE H (Not Detect) [place] 0.60 (0.60-1.20) mmol/L Urine Cocaine Screen Not Detected (Not Detect) U Marijuana (THC) Screen Not Detected (Not Detect) Ethyl Alcohol < 10 mg/dL Independent Interpretation I performed an independent interpretation of an: EKG (Sinus heart rate is [address] segment elevation) External Record Review External record reviewed: Inpatient record Chronic Conditions Multiple episodes of overdose history of back pain history of depression history of scoliosis Social Determinants Patient?s care significantly limited by Social Determinants of Health including: Problems related to primary support group Critical Care Time Critical Care Time Critical Care Time: Yes Total Critical Care Time: 40 Attestation: I have personally provided 40 minutes of critical care time exclusive of time spent on separately billable procedures. ?Time includes review of lab data, radiology results, discussion with consultants, and monitoring for potential decompensation. ?Interventions were performed as documented above Discharge Plan Discharge Clinical Impression: Urinary tract infection Patient Disposition: Admitted As Inpatient Interventions: Mckinley-Suicide Risk Severity Scale Last Done: 05/02/25 17:47
[2025-05-02 18:16] LABS: Acetaminophen LAB < 3 mcg/mL (<30); Alanine Aminotransferase 11 U/L (0-31); Albumin Level 4.3 g/dL (3.5-5.0); Alkaline Phosphatase 55 U/L (39-117); Anion Gap 10 (12-20); Aspartate Amino Transferase 17 U/L (5-31); Blood Urea Nitrogen 14 mg/dL (9-16); Calcium 8.7 mg/dL (8.4-10.2); Carbon Dioxide 24 mmol/L (22-29); Chloride 112 mmol/L (96-108); Creatinine Clr Calc Pharmacy 67.7; Estimated Glomerular Filt Rate > 60; Potassium 3.6 mmol/L (3.3-5.1); Salicylate < 5.0 mg/dL (15-30); Sodium 142 mmol/L (135-145); Total Protein 6.5 g/dL (6.5-8.0)
--- OUTSIDE RECORDS SUMMARY | 2025-05-02 18:28 | XMS_ITS | Clinical Summary ---
Author Organization [address] Address [address] [place] [phone] Phone Care Team Providers Care Snagger Name Role Phone Unavailable Primary Care Provider Unavailabl e Surgical History Surgery Date Site/Laterality Comments KNEE SURGERY 07/27/07 PROCEDURE: HISTORICAL KNEE SURGERY; COMMENT: recurrent left patella dislocation- 5 surgeries Left knee OTHER SURGICAL HISTORY PROCEDURE: AR CRANIECTOMY/CRANIOTOMY EXC FOREIGN BODY BRAIN; COMMENT: BB removed - age 3 WRIST SURGERY Left PROCEDURE: HISTORICAL WRIST SURGERY; COMMENT: Multiple wrist surgeries with Dr. 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 DX:Osteo mary imperfecta Family History Relation Name Status Comments Brother Alive Healthy Father Alive [place] Maternal Grandfather Lung ca ncer Maternal Grandmother [...] 07/22/2022 Social Influencers of Health Screening 07/22/2022 Depression Screening 08/24/2024 COVID-19 Vaccine (1 - 2023-2 5 season) 2025 Influenza Vaccine (#1) 2025 Cholesterol Screening (Lipid [...] LDL Routine 08/03/2024 7:00 AM EST 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
--- OUTSIDE RECORDS SUMMARY | 2025-05-02 18:28 | XMS_ITS | Encounter Summary ---
Author Organization [facility] Address [address] [facility] [address] [place] [phone] Phone Care Team Providers Care Harbormaster Name Role Phone Cassia Alanis DO Primary Care Provider [phone] Encounter Details Date Type Department Care Team (Latest Contact Info) Description 09/08/2023 Transcribe Orders Virtual Department [address] [place] [phone] Cassia Alanis DO [address] [place], [place] [phone] [email or web address] Other specified congenital malformations of skin [...] imperfecta documented in this encounter Care Teams Harbormaster Relationship Specialty Start Date End Date Cassia Alanis DO [address] [place], [place] [phone] [email or web address] PCP - General Family Medicine 09/01/23 documented as of this encounter Additional Source Comments The information contained in this document represents components of the legal health record. It is not the complete legal health record.[facility]
--- OUTSIDE RECORDS SUMMARY | 2025-05-02 18:28 | XMS_ITS | Clinical Summary ---
Author Organization [facility] Address [address] [place] [phone] Phone Care Team Providers Care Software Development Leader Name Role Phone Cassia Alanis Primary Care [...] topic Medical Devices Not on file Insurance Angie[employer] List MEDICARE PART A & B [place] & B [facility] MEDICARE PART A & B Care Teams Software Development Leader Relationship Specialty Start Date End Date Cassia Alanis DO [address] [place] [address] PCP - General Family Medicine 09/01/23 Additional Source Comments The information contained in this document represents components of the legal health record. It is not the complete legal health record.[facility]
--- OUTSIDE RECORDS SUMMARY | 2025-05-02 18:28 | XMS_ITS | Encounter Summary ---
Author Organization [facility] Address [address] [place] [address] Care Team Providers Care Printing Press Operator Name Role Phone Unavailable Primary Care Provider Unavailabl e Encounter Details Date Type Department Care Team (Late st Contact Info) Description 08/10/[address] [facility] [address] [facility] [place] [address] Shavonne Zavaleta, MAGDA [address] [place] [address] Social History Tobacco Use Types [...] to direct LDL Lab Routine Ordered: 024 [place] level Lab Routine Ordered: Hemoglobin A1c Lab Routine Ordered: 1 10/11/2023 documented as of this encounter Visit Diagnoses Not on filedocumented in this encounter
--- OUTSIDE RECORDS SUMMARY | 2025-05-02 18:28 | XMS_ITS | Encounter Summary ---
Author Organization [facility] Address [address] [place] [address] Care Team Providers Care Marine Structural Designer Name Role Phone Unavailable Primary Care Provider Unavailabl e Encounter Details Date Type Department Care Team (Late st Contact Info) Description 08/03/[address] [facility] [address] [facility] [place] [address] Shavonne Zavaleta, MAGDA [address] [place] [address] Other senior care (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 Social History Tobacco Use [...] LDL Routine 08/03/2024 7:00 AM EST Other senior care (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 HEMOGLOBIN A1C Routine 08/03/2024 7:00 AM EST Other senior care (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 LITHIUM LEVEL Routine 08/03/2024 7:00 AM EST Other keno terminal operator (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 documented in this encounter Results * (ABNORMAL) Carl level (08/03/2024 7:00 AM EST) Carl Level 0.5(L) 0.6 - 1.2 mEq/L LAB CHEMISTRY METHOD 08/03/2024 1:[address] [facility] Blood Venous blood specimen / Unknown Venipuncture / Unknown 08/03/2024 7:00 AM EST 08/03/2024 12:08 PM EST us Shavonne Zavaleta COUPON COLLECTION CLERK LAB BLOOD ORDERABLES Fi nal Result [facility] [address] [place] [address], [place] [phone] * (ABNORMAL) Lipid panel with reflex to direct LDL (08/03/2024 7:00 AM EST) Cholesterol 201(H) 0 - 200 mg/dL LAB CHEMISTRY METHOD 08/03/2024 1:28 PM [facility] Triglycerides 185(H) 0 - 150 mg/dL LAB CHEMISTRY METHOD 08/03/2024 1:28 PM [facility] HDL 87 >=40 mg/dL LAB CHEMISTRY METHOD 08/03/2024 1:28 PM [facility] LDL Calculated 77 0 - 100 mg/dL LAB CHEMISTRY METHOD 08/03/2024 1:28 PM [facility] VLDL Cholesterol Rahul 37 mg/dL LAB CHEMISTRY METHOD 08/03/2024 1:[address] [facility] Non HDL Chol. (LDL+VLDL) 114 <145 mg/dL LAB CHEMISTRY METHOD 08/03/2024 1:28 PM [facility] Chol/HDL Ratio 2.3 0.0 - 4.4 LAB CHEMISTRY METHOD 08/03/2024 1:28 PM [facility] Blood Venous blood specimen / Unknown Venipuncture / Unknown 08/03/2024 7:00 AM EST 08/03/2024 12:08 PM EST us Shavonnecassius Zavaleta COUPON COLLECTION CLERK LAB BLOOD ORDERABLES Fi nal Result Performing Organization Address City/[facility] [address]/ZIP Co de Phone Number [facility] [address] [place] [address], [place] [phone] * Hemoglobin A1c (08/03/2024 7:00 AM EST) Hemoglobin A1C 4.7 <6.5 % LAB CHEMISTRY METHOD 08/03/2024 1:[address] [facility] Mean Bld Glu Estim. 88 mg/dL LAB CHEMISTRY METHOD 08/03/2024 1:[address] [facility] Blood Venous blood specimen / Unknown Venipuncture / Unknown 08/03/2024 7:00 AM EST 08/03/2024 11:51 AM EST Shavonne Zavaleta COUPON COLLECTION CLERK LAB BLOOD ORDERABLES Fi nal Result Performing Organization Address [facility] [address]/ZIP Co de Phone Number [facility] [address] [place] [address], [place] [phone] documented in this encounter Visit Diagnoses Diagnosis Other senior care (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 documented in this encounter
--- OUTSIDE RECORDS SUMMARY | 2025-05-02 18:29 | XMS_ITS | Encounter Summary ---
Author Organization [facility] Address [address] [place] [phone] Phone Care Team Providers Care Electronic Controls Repairer Supervisor Name Role Phone Thuan Zarate MD Primary Care Provider [phone] Cassia Alanis DO Primary Care Provider [phone] Encounter Details Date Type Department Care Team (Latest Contact Info) Description 10/11/2020 Transcribe Orders Virtual Department [address] [place] [phone] Brent Delgado MD [address] [place] [phone] [email or web address] Encounter for laboratory testing for COVID-19 virus [...] documented as of this encounter Care Teams Electronic Controls Repairer Supervisor Relationship Specialty Start Date End Date Thuan Zarate MD [address] [facility] [address] [place] [address] [email or web address] PCP - General Family Medicine 10/11/20 08/31/23 Cassia Alanis DO [address] [place] [phone] [email or web address] PCP - General Family Medicine 09/01/23 documented as of this encounter Additional Source Comments The information contained in this document represents components of the legal health record. It is not the complete legal health record.[facility]
[2025-05-02 18:36] VITALS: BP 96/53; PULSE 60; RESP 16; TEMP 36.6; O2SAT 97
[2025-05-02 19:00] LABS: Lithium 0.60 mmol/L (0.60-1.20)
[2025-05-02 20:57] VITALS: BP 104/66; PULSE 59; RESP 16; TEMP 36.4; O2SAT 99
--- NOTE | 2025-05-02 21:52 | PC.NURSE ---
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
[2025-05-02 22:00] VITALS: BP 104/66; PULSE 66; RESP 16; TEMP 36.6; O2SAT 97
[2025-05-02 23:24] LABS: Appearance Urine Cloudy; Glucose Urine UA Negative (Negative); PH 6.5 (5.0-9.0); Specific Gravity - Urine 1.010 (1.005-1.025); UMIC TRIGGER UACC YES
[2025-05-02 23:32] LABS: Cannabinoid Screen Urine Not Detected (Not Detect)
[2025-05-02 23:36] LABS: UACC Culture Trigger YES
[2025-05-03] VITALS: BP 100/66; PULSE 65; RESP 16; O2SAT 99
[2025-05-03 01:54] VITALS: BP 109/67; PULSE 63
[2025-05-03 01:55] VITALS: BP 100/73; BP 112/67; PULSE 69; PULSE 74
[2025-05-03 01:58] VITALS: BP 101/72; PULSE 68; RESP 20; O2SAT 99
--- NOTE | 2025-05-03 02:13 | PC.NURSE ---
Spoke with Poison control stating pt should have ortho stats completed due to c/o dizziness. Patient is also requesting nightly meds for sleep.
--- NOTE | 2025-05-03 04:19 | PC.NURSE ---
Patient was transferred from ED [address] to room 1 in behavioral pod. Patient is alert and oriented x4, calm and cooperative. Patient continues to report SI with plan to OD on mediations, denies HI at present.Patient c/o intermittent dizziness, observed ambulating with a steady gait. Patient oriented to behavioral pod/pod room, warm blanket provided to patient. Patient currently resting in bed, no s/s of apparent distress noted.
--- NOTE | 2025-05-03 06:08 | PC.NURSE ---
This RN has completed the medication reconciliation with patient at bedside. Patient was able to confirm all of her medications.
--- NOTE | 2025-05-03 07:31 | PC.NURSE ---
Assumed care of this pt. Pt sleeping at this time, resp even, nonlaboured.
--- NOTE | 2025-05-03 11:27 | PHA.MEDREC ---
Addendum entered by Sage Turk RPh 05/03/25 13:37: MED REC REVIEWED BY [facility] Original Note: Pharmacy Consult ? Medication Reconciliation Pharmacy reviewed med rec done by nursing. Spoke with pt and she confirmed her medications. Pt confirmed she takes Quetiapine 50mg tabs with 150mg for TDD of 200mg at bedtime, pt takes Trazodone as needed for sleep, Butabital as needed for migraines and Tamsuloin daily for UTI preventative still; I called and spoke with pt pharmacy and they state Trazodone and Tamsulosin were LF 01/20 for 30 days and Butabital was LF 08/ for 6 days.
[2025-05-03 14:28] VITALS: BP 133/86; PULSE 79; RESP 20; TEMP 36.9; O2SAT 100
--- NOTE | 2025-05-03 18:43 | PC.NURSE ---
pt refused flu vaccine at this time
--- NOTE | 2025-05-03 18:43 | PC.ADMIT ---
Joselin is a 39-year-old female admitted from [facility] Pod to M3 05/03/25 1545 on a CV for treatment of unspecified depressive disorder, unspecified anxiety disorder, PTSD. Pt also reports medical hx of bulimia/anorexia, osteogenesis imperfecta, Ehler's Danlos Syndrome. Tox screen positive for oxycodone and benzodiazepines. Pt denies substance or alcohol use. Per crisis eval, pt presented to ED after an intentional overdose attempt on 15 tabs of 0.1mg clonidine. Pt was discharged from on 05/02/25. Upon arrival to M3, pt was A&Ox4, pleasant and cooperative. Mood is sad with congruent affect. Skin check revealed darkened discoloration and overgrowth to her left great toenail, pt reports injuring it a few weeks ago. When asked how pt felt about surviving the overdose attempt, pt stated I did not feel good, I don't want to be here. 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 Pt reports decreased appetite r/t anorexia and reports sleep disturbances. Pt currently denies SI/HI/AH/VH but will reach out to staff if thoughts occur. Pt placed on 15 minute safety checks.
[2025-05-03 18:58] VITALS: BMI 18.9
[2025-05-03 20:00] VITALS: BP 117/72; PULSE 82; RESP 16; TEMP 36.5; O2SAT 100
--- NOTE | 2025-05-03 21:22 | P.HPPS_ITS ---
HPI Date of Service: 05/03/25 Chief Complaint: SI Sources of Information: patient interviewed, chart reviewed and crisis/core team assessment reviewed HPI Subjective Notes: Castillo Warning and Conditional Voluntary Healthcare Proxy: No Guardianship: No Medical Problems Affecting Mental Status: No Narrative: Per care team note, patient is a 39 years old single, Italian-speaking female with a past medical history of MDD, PTSD, and anxiety who was BIBA to the [facility] ED on section 12 after an intentional overdose attempt. Patient reports taking 15 clonidine pills just shortly prior to her ED arrival. Patient discharged on M5 just on 05/02/2025 after admitted on 04/26/25. on M3: This provider met with patient at 16:40 in one of the group rooms for psychiatric assessment. Patient reports that I overdosed again on 15 of Clonidine . Reports that she , got home start seeing dog again so I overdosed I do not want to go home when asked what the home environment could trigger her. She reports that people in the family is sick. She stay with her mom, housing is stable. Patient reports that when she was discharged on M5 yesterday she was not ready. However, when this provider asked this provider discharge her tomorrow, we will she ready and feels safe going home. She states that she will be ready and happy to go home tomorrow I prefer at home than being in here . When being asked the what the difference between yesterday and today that she was not ready and today she will be ready for discharge tomorrow. Patient stated that because she is not on M5 where she was taken care of by Dr. Hermosillo he has been taking care of me 3 times in the past. I trust him . Educate patient that she comes to the hospital for help, for her own mental health help, not just because of being taking care by the doctor that she preferred to be taken care. She would feel safe going home tomorrow as she knows that she is not on M5 and will be not taking care by Dr. Hermosillo. When asked what if Dr. Hermosillo does not work here anymore, will she come back, or elsewhere she will go to get help?. She was not able to give the answer. It appears that she has attachment issues as evidence by she attatched to the provider, and wants to be back here after less than 12 hours of discharge and would like to be with the same provider. However, she wants to be discharged, and state that she will be safe home after being told she will not taking care by her preferred doctor on M5. Patient states that it is always in my head regarding suicidal thoughts, but states that she will be home safe tomorrow. Denies plan or intention to do harm to herself at this current time, and states that she will be safe on the unit She is aware acute setting is not appropriate for her as she needs to work on DBT to learn coping skills. She admitted that she needed it everyone has been told me about it . Reported that she has outpatient psychiatrist and therapist that she can touch base with after discharge. Per nursing who did assessment on admission, patient stated that she does not want to be here on M3 but M5. Patient reports overdose on clonidine which clinically I do not see any evidence of her overdose on clonidine. Blood pressure is within baseline normal limits. She is alert and awake x4. No complain of dizziness, nauseous or vomiting. In addition, patient has chronic SI which she lives daily with and had been demonstrated safe behaviors during hospital stay on M5. Therefore, she does not need to stay in acute care setting but outpatient setting with therapist working on DBT. Patent carries demonized of Borderline Personality Disorder- BPD- I agree with Dr. Hermosillo, that prolonged hospitalization is contraindicated for this particular patient, as she may use hospital to avoid working on her coping skills-DBT. Per Dr. Mcgowan's discharge note on 05/02/25 As mentioned she is at baseline. Further inpatient stay or medication management will not improve her symptoms; rather, further progress requires getting back into consistent outpatient therapy which patient says she is willing to do (additionally, longer inpatient stay is typically counter therapeutic for patients with BPD as it exacerbates BPD symptoms and allows people to avoid doing the work of practicing coping skills . Plan to discharge patient back home tomorrow, continue with current medication plan and to FLU with OP providers, therapist with focus on DBT/CBT. Patient is receptive with the plan. Appear to be happy with it after discussion with this provider. She has a stable home to return. Live with mom. Denies substance use after discharge yesterday. Past Psychiatric History: on M5 from 04/26/25 to 05/02/25. Represented less than 24 hours of discharge on 05/02/25. 2x 10/04/24-10/06/24 for overdose and again 10/11/24 - 10/18/24 [facility] 10/18-11/03/24 Hospitalized October 2024 at [place] Hospitalized x2 in 2023 at [place] [facility] [place] [facility] primarily for eating disorder at age 18. Patient reports multiple hospitalizations for severe low weight and protein in her urine but these hospitalizations were on medical units. In 2021 the patient was in [facility] Emergency room and seen by ABH and crisis after she was found wandering the streets she was expressing paranoid ideation stating that her family was trying to poison her she also reported at that time hearing evil voices that are head she reports she was talking to Kade and making statements I am and I am dying they are trying to kill me Medical Evaluation Reviewed: Yes [facility] Medical History (Updated 05/03/25 @ 14:59 by Aurelio Hermosillo MD) Borderline personality disorder Anorexia Left wrist injury Scoliosis Swelling Osteoporosis Arthritis Asthma Mood disorder Indwelling Joseph catheter present MDD (major depressive disorder), recurrent severe, without psychosis Sacral nerve stimulator present Rectocele Juvenile osteoporosis Compression fx, lumbar spine History of wrist fracture Myofascial pain syndrome Benzodiazepine dependence Anxiety and depression Surgical History History of vaginal surgery History of bladder surgery H/O wrist surgery History of left knee surgery History of right knee surgery History of brain surgery History of placement of ear tubes H/O cystoscopy Family History: Patient reports she grew up in [place] and live with her mother and father and 2 brothers her father of cancer in 2021 she states her older brother has anxiety and her mother has depression Social History: Patient reports she did have friends growing up and she was straight a student until she left school at the age of 16 due to anorexia she had to drop out of school due to multiple admissions at [facility] she is socially isolated currently Substance History: Denies Trauma History: hx of trauma in addition to Multiple surgeries Diagnostics Vital Signs (24Hr): Vital Signs - 24 hr 05/02/25 22:00 05/03/25 00:00 05/03/25 01:54 Temperature 97.9 F Pulse Rate 66 65 63 Respiratory Rate 16 16 Blood Pressure 104/66 100/66 109/67 Pulse Oximetry 97 99 Oxygen Delivery Method Room Air Room Air 05/03/25 01:55 05/03/25 01:55 05/03/25 01:58 Temperature Pulse Rate 69 74 68 Respiratory Rate 20 Blood Pressure 112/67 100/73 101/72 Pulse Oximetry 99 Oxygen Delivery Method 05/03/25 14:28 05/03/25 20:00 Temperature 98.5 F 97.7 F Pulse Rate 79 82 Respiratory Rate 20 16 Blood Pressure 133/86 117/72 Pulse Oximetry 100 100 Oxygen Delivery Method Room Air Room Air BMI result Body Mass Index 18.9 Labs 05/02/25 17:52 05/02/25 17:52 Labs: Laboratory Results - last 48 hr 05/02/25 05/02/25 05/02/25 17:52 18:36 23:16 WBC 8.4 RBC 3.66 L Hgb 11.7 L Hct 35.6 L MCV 97.3 MCH 32.0 MCHC 32.9 RDW 13.8 Plt Count 198 MPV 10.8 Immature Gran % (Auto) 0.4 Neut % (Auto) 63.1 Lymph % (Auto) 27.7 [place] % (Auto) 6.4 Eos % (Auto) 1.3 Baso % (Auto) 1.1 Lymph # (Auto) 2.3 [place] # (Auto) 0.5 Eos # (Auto) 0.1 Baso # (Auto) 0.1 Abs Immat Gran (auto) 0.03 Absolute Neuts (auto) 5.3 Absolute Nucleated RBC 0.000 Nucleated RBC % (auto) 0.0 Sodium 142 Potassium 3.6 Chloride 112 H Carbon Dioxide 24 Anion Gap 10 L BUN 14 Creatinine 0.80 Estim Creat Clear Calc 67.7 Estimated GFR > 60 Random Glucose 118 H Calcium 8.7 Total Bilirubin 0.2 AST 17 ALT 11 Alkaline Phosphatase 55 Total Protein 6.5 Albumin 4.3 Urine Color Yellow Urine Appearance Cloudy Urine pH 6.5 Ur Specific [place] 1.010 Urine Protein Negative Urine Glucose (UA) Negative Urine Ketones Negative Urine Blood Negative Urine Nitrite Negative Ur Leukocyte Esterase Moderate (2+) H Urine RBC 11-20 H Urine WBC >50 H Ur Squamous Epith Cells >20 Urine Bacteria 4+ Hyaline Casts 0-2 Salicylates < 5.0 L Urine Opiates Screen Not Detected Ur Buprenorphine Scrn Not Detected Ur Oxycodone Screen Positive H Urine Methadone Screen Not Detected Urine Fentanyl Screen Not Detected Acetaminophen < 3 Ur Barbiturates Screen Not Detected Ur Phencyclidine Scrn Not Detected Ur Amphetamines Screen Not Detected U Benzodiazepines Scrn POSITIVE H [place] 0.60 Urine Cocaine Screen Not Detected U Marijuana (THC) Screen Not Detected Ethyl Alcohol < 10 Meds/Allergies Meds Home Medications ?Medication ?Instructions ?Recorded ?Confirmed ?Type acetaminophen 325 mg tablet 975 mg PO Q8H PRN Pain (Sc jo ann 04/22/25 05/03/25 History Score 1-3) [id number]-[id number] 1 tab PO DAILY PRN m igraine 05/03/25 05/03/25 History 50 mg-325 mg-40 mg tablet quetiapine 50 mg tablet 50 mg PO BEDTIME 05/03/25 History tamsulosin 0.4 mg capsule 0.4 mg PO BEDTIME 05/03/25 0 05/03/25 History trazodone 50 mg tablet 50 mg PO BEDTIME PRN insomni a 05/03/25 05/03/25 History Allergies Allergies Allergy/AdvReac Type Severity Reaction Status Date / Time azithromycin Allergy Itching Verified 05/02/25 17:32 levofloxacin (From Levaquin) Allergy Nightmare Verified 05/02/25 17:32 nitrofurantoin (From Allergy Itching Verified 05/02/25 17:32 Macrodantin) Mental Status Exam Mental Status Exam Narrative: Patient is A&O x4, Not happy as she is not on M5. Report SI without plan/intent with chronic SI always in my head .No SIB, no behavior issues or unsafe behaviors since admitted to M3. Thought process is organized and goal directed: would like to be discharge home and work on DBT- FLU with OP provider and therapist. No delusional or paranoia statement made. Do not appear to be psychotic or responded to internal stimuli. Denies SIB/HI/AVH. Fair judgment and good insight. Assessment & Plan Assessment & Plan (1) ANIBAL (generalized anxiety disorder): Status: Acute Code(s): F41.1 - Generalized anxiety disorder (2) Borderline personality disorder: Status: Acute Code(s): F60.3 - Borderline personality disorder Plan HPI: patient is a 39 years old single, Italian-speaking female with a past medical history of MDD, PTSD, and anxiety who was BIBA to the [facility] ED on section 12 after an intentional overdose attempt. Patient reports taking 15 clonidine pills just shortly prior to her ED arrival. Patient discharged on M5 just on 05/02/2025 after admitted on 04/26/25. Formulation/clinical reasoning: Patient was just discharged yesterday, represented after less than 24 hours of discharge, reports overdose on clonidine -15 of them. No clinical indication/evidence that she took that many of Clonidine. Vital signs stable. She has chronic suicidal thoughts that she caring that daily. No medication adjustment needed. Patient do not meet criteria to be in acute care setting. Given background of borderline personality disorder, patient will be benefit with DBT in outpatient setting with a therapist/psychiatrist. Prolong hospitalization, we will not be helpful for this particular patient as it contra indicated for her condition which using hospital to avoid using her DBT coping skills. Patient herself also admitted that what she needs-outpatient services with me in focused on DBT. We will discharge patient tomorrow back home with family. Continue with current medication. No medication changes. [place] level was 0.6 on 05/02/25: Therapeutic. The only new medication will send home with tomorrow is antibiotic for UTI which she was diagnosed yesterday from the ED. Plan Patient on 15 minute checks for safety. Admitted to M3. CV.. We will continue with outpatient follow-up appointments that planed for her yesterday -per M5 team. Patient educated on: diagnosis and therapeutic strategies Informed Consent: understands Reason for continued inpatient stay Substantial Risk for: other (Patient will be discharged tomorrow. ) Statement Statement: I have reviewed the history and physical and performed a pertinent examination on my patient. No changes have occurred unless specified. If the History and Physical was not performed prior to admission, the Hospitalist's service will be consulted for completing the admission physical. Time Spent With Patient Time: Total time managing care of this patient today ____ minutes.
[2025-05-04 07:54] VITALS: BP 101/62; PULSE 74; RESP 16; TEMP 36.7; O2SAT 98
--- NOTE | 2025-05-04 09:25 | P.DS_ITS ---
DS: Providers Provider Date of Service: 05/04/25 Date of admission: 05/03/25 13:06 Date of discharge: 05/04/25 Primary care physician: Debi Machado CNP Attending physician on admission: Batool Malave Attending physician on discharge: Batool Malave DS: Diagnosis Discharge Diagnosis (1) ANIBAL (generalized anxiety disorder): Status: Acute (2) Borderline personality disorder: Status: Acute DS: Medications Discharge Medications Home Medications: Home Medications ?Medication ?Instructions ?Recorded ?Confirmed acetaminophen 325 mg tablet 975 mg PO Q8H PRN Pain (Sc jo ann 04/22/25 05/03/25 Score 1-3) cxfwiprykw-hdctdwofdroxx-jddaxtrb 1 tab PO DAILY PRN m igraine 05/03/25 05/03/25 50 mg-325 mg-40 mg tablet quetiapine 50 mg tablet 50 mg PO BEDTIME 05/03/25 tamsulosin 0.4 mg capsule 0.4 mg PO BEDTIME 05/03/25 0 05/03/25 trazodone 50 mg tablet 50 mg PO BEDTIME PRN insomni a 05/03/25 05/03/25 Previous Rx's ?Medication ?Instructions ?Recorded hydroxyzine HCl 25 mg tablet 25 mg PO TID PRN mild anx iety 30 05/02/25 days #30 tabs lithium carbonate 300 mg 300 mg PO BEDTIME 7 days #7 tabs 05/02/25 tablet,extended release quetiapine 150 mg tablet 150 mg PO BEDTIME 30 days #3 0 tabs 05/02/25 cephalexin 500 mg capsule 500 mg PO Q8H UTI #16 caps 0 05/03/25 Mental Status Exam Mental Status Exam Narrative: Patient presents well-groomed, hospital attire. Affect is full range. Speech is clear and coherent. Thought process is linear and logical. Thought content is appropriate and relevant. Patient denies homicidal ideation intent or plan. Report chronic SI without plan or intent. No overt psychotic symptoms elicited. Insight is good. Judgment is fair. Data Data Completed and Pending Completed studies during hospitalization [Text1]: 05/02/25 05/02/25 05/02/25 17:52 18:36 23:16 WBC 8.4 RBC 3.66 L Hgb 11.7 L Hct 35.6 L MCV 97.3 MCH 32.0 MCHC 32.9 RDW 13.8 Plt Count 198 MPV 10.8 Immature Gran % (Auto) 0.4 Neut % (Auto) 63.1 Lymph % (Auto) 27.7 [place] % (Auto) 6.4 Eos % (Auto) 1.3 Baso % (Auto) 1.1 Lymph # (Auto) 2.3 [place] # (Auto) 0.5 Eos # (Auto) 0.1 Baso # (Auto) 0.1 Abs Immat Gran (auto) 0.03 Absolute Neuts (auto) 5.3 Absolute Nucleated RBC 0.000 Nucleated RBC % (auto) 0.0 Sodium 142 Potassium 3.6 Chloride 112 H Carbon Dioxide 24 Anion Gap 10 L BUN 14 Creatinine 0.80 Estim Creat Clear Calc 67.7 Estimated GFR > 60 Random Glucose 118 H Calcium 8.7 Total Bilirubin 0.2 AST 17 ALT 11 Alkaline Phosphatase 55 Total Protein 6.5 Albumin 4.3 Urine Color Yellow Urine Appearance Cloudy Urine pH 6.5 Ur Specific [place] 1.010 Urine Protein Negative Urine Glucose (UA) Negative Urine Ketones Negative Urine Blood Negative Urine Nitrite Negative Ur Leukocyte Esterase Moderate (2+) H Urine RBC 11-20 H Urine WBC >50 H Ur Squamous Epith Cells >20 Urine Bacteria 4+ Hyaline Casts 0-2 Salicylates < 5.0 L Urine Opiates Screen Not Detected Ur Buprenorphine Scrn Not Detected Ur Oxycodone Screen Positive H Urine Methadone Screen Not Detected Urine Fentanyl Screen Not Detected Acetaminophen < 3 Ur Barbiturates Screen Not Detected Ur Phencyclidine Scrn Not Detected Ur Amphetamines Screen Not Detected U Benzodiazepines Scrn POSITIVE H [place] 0.60 Urine Cocaine Screen Not Detected U Marijuana (THC) Screen Not Detected Ethyl Alcohol < 10 05/02/25 23:16 Urine clean catch - Clean Catch Midstream Urine Culture - Final DS: Summary Hospital Course Hospital Course: HPI: Per care team note, patient is a 39 years old single, [place]uvian-speaking female with a past medical history of MDD, PTSD, and anxiety who was BIBA to the [facility] on section 12 after an intentional overdose attempt. Patient reports taking 15 clonidine pills just shortly prior to her ED arrival. Patient discharged on M5 just on 05/02/2025 after admitted on 04/26/25. 05/03/25: On M3: This provider met with patient at 16:40 in one of the group rooms for psychiatric assessment. Patient reports that I overdosed again on 15 of Clonidine . Reports that she , got home start seeing dark again so I overdosed I do not want to go home when asked what the home environment could trigger her. She reports that people in the family is sick. She stays with her mom, housing is stable. Patient reports that when she was discharged on M5 yesterday she was not ready. However, when this provider asked this provider discharge her tomorrow, we will she ready and feels safe going home. She states that she will be ready and happy to go home tomorrow I prefer at home than being in here . When being asked the what the difference between yesterday and today that she was not ready and today she will be ready for discharge tomorrow. Patient stated that because she is not on M5 where she was taken care of by Dr. Hermosillo he has been taking care of me 3 times in the past. I trust him . Educate patient that she comes to the hospital for help, for her own mental health help, not just because of being taking care by the doctor that she preferred to be taken care of. She would feel safe going home tomorrow as she knows that she is not on M5 and will be not taking care by Dr. Hermosillo. When asked what if Dr. Hermosillo does not work here anymore, will she come back, or elsewhere she will go to get help?. She was not able to give the answer. It appears that she has attachment issues as evidence by she attached to the provider, and wants to be back here after less than 12 hours of discharge and would like to be with the same provider. However, she wants to be discharged, and state that she will be safe home after being told she will not be taking care by her preferred doctor on M5. Patient states that it is always in my head regarding suicidal thoughts, but states that she will be home safe tomorrow. Denies plan or intention to do harm to herself at this current time, and states that she will be safe on the unit She is aware acute setting is not appropriate for her as she needs to work on DBT to learn coping skills. She admitted that she needed it everyone has been told me about it . Reported that she has outpatient psychiatrist and therapist that she can touch base with after discharge. Per nursing who did assessment on admission, patient stated that she does not want to be here on M3 but M5. Patient reports overdose on clonidine which clinically I do not see any evidence of her overdose on clonidine. Blood pressure is within baseline normal limits. She is alert and awake x4. No complain of dizziness, nauseous or vomiting. In addition, patient has chronic SI which she lives daily with and had been demonstrated safe behaviors during hospital stay on M5. Therefore, she does not need to stay in acute care setting but outpatient setting with therapist working on DBT. Patent carries diagnosis of Borderline Personality Disorder- BPD- I agree with Dr. Hermosillo, that prolonged hospitalization is contraindicated for this particular patient, as she may use hospital to avoid working on her coping skills-DBT. Per Dr. Mcgowan's discharge note on 05/02/25 As mentioned she is at baseline. Further inpatient stay or medication management will not improve her symptoms; rather, further progress requires getting back into consistent outpatient therapy which patient says she is willing to do (additionally, longer inpatient stay is typically counter therapeutic for patients with BPD as it exacerbates BPD symptoms and allows people to avoid doing the work of practicing coping skills . Plan to discharge patient back home tomorrow, continue with current medication plan and to FLU with OP providers, therapist with focus on DBT/CBT. Patient is receptive with the plan. Appear to be happy with it after discussion with this provider. She has a stable home to return. Live with mom. Denies substance use after discharge yesterday. 05/04/25: This provider met with patient in length, twice this morning before and after treatment team to address of safety prior patient being discharged. Patient stated she does not do well, still have chronically suicidal thoughts, do not express any plan or intention to do harm to herself for after discharge. Remind patient what we discussed yesterday, she will be home safe with family, and continue with outpatient providers. We also discussed coping skills that she can use after discharge when she had increased anxiety or having suicidal thoughts. Patient automatically states that I can walk the dog outside . When asked other coping skills she can use, she states that she can she loves listen to music. She also states that she used to do DBT when Dr. Hermosillo refer her out previously which was helpful. We also discussed potential to attend to day program which can occupied and keep her busy. We also talked about warm shower when she gets stress, and therapeutic talking to outpatient providers-therapist if she have increased been stress. We discussed that she should call the therapist/outpatient psychiatrist if she had increase anxiety/suicidal thought that not able to control or call 911, or come to the nearest ED for help, after trying other methods/interventions that does not help. Patient states that she used to be given diazepam to help with anxiety. Advised patient to talk to outpatient psychiatrist, to see it is can prescribe to her but it is not appropriate at the discharge time/day to start her on Valium. Patient is recept luis. She is also happy, smile, say thank you for talking to her about coping skills. She even did the fist bump to say thank you to this provider. Patient is not demonstrate imminent risk to herself or others. She is willingly to be discharged back home, and continue work with outpatient providers, and make her best to stay away from the hospital setting as she admitted that it is not a healthy environment, and that what she needs to do is working with outpatient focused on DVT. This provider also review labs work-lithium level, and assure patient that she will get for more day supply for antibiotic regarding her UTI. Medication sent to prefer pharmacy. Time spent discussing smoking cessation with patient: 3 to 10 minutes Status at Discharge Cognitive/behavioral status at discharge: CONDITION ON DISCHARGE: CURRENT STATUS IT RELATES TO ADMISSION CRITERIA: Stable, improved. Improvements in depression, anxiety, and suicidal ideation. Improvements in sleep, energy, and appetite. and no hallucination or paranoia/delusional thought. Patient carries chronic suicidal thoughts without plan or intent to hurt her self or to harm herself upon discharge. Functional status at discharge: independent ambulation Overall status at discharge: patient is back to baseline Time Spent with Patient Time attestation: Total time managing care of this patient today ____ minutes. Time spent: Greater than 30 minutes Discharge Plan Discharge Anticipated Discharge Date/Time: 05/04/25 09:23 Patient Disposition: Home, Self-Care Discharge Diagnosis: Borderline Personality Disorder Referrals: Debi Machado CNP [Primary Care Provider, Internal Medicine] - 1 Week Discharge Medications: New cephalexin 500 mg capsule 500 mg PO Q8H Qty: 16 0RF Rx Instructions: Until complete for UTI. Continued acetaminophen 325 mg tablet 975 mg PO Q8H PRN (Reason: Pain (Scale Score 1-3)) quetiapine 50 mg tablet 50 mg PO BEDTIME Rx Instructions: Taken with 150mg for TDD of 200mg at bedtime. trazodone 50 mg tablet 50 mg PO BEDTIME PRN (Reason: insomnia) icslprkrui-nyhjbllkglagd-flmp 50-325-40 mg tablet 1 tab PO DAILY PRN (Reason: migraine) tamsulosin 0.4 mg capsule 0.4 mg PO BEDTIME lithium carbonate 300 mg Tablet Extended Release 300 mg PO BEDTIME 7 Days Qty: 7 3RF hydroxyzine HCl 25 mg tablet 25 mg PO TID PRN (Reason: mild anxiety) 30 Days Qty: 30 0RF quetiapine 150 mg tablet 150 mg PO BEDTIME 30 Days Qty: 30 0RF Rx Instructions: Taken with 50mg for TDD of 200mg at bedtime. Discharge Orders: Discharge Order (Routine); Ordered 05/04/25 Ordered By: Batool Malave Diet: Regular diet Activity on Discharge: No Restrictions Stand Alone Forms: Patient Portal Discharge page, Community Support Print Language: Peruvian Care Plan Goals: Maintain mood and safe behaviors Take medications as prescribed Continue to pursue sobriety Practice coping skills Continue with outpatient providers and reach out to them as needed Health Concerns: Mood stability and behaviors Sobriety Plan of Treatment: Follow up with your PCP, psychiatric provider and other outpatient providers regarding above concerns. Continue working on DBT/CBT Take medications as prescribed Assessment: Assessment: Risk assessment at time of discharge: Patient was interviewed prior to discharge and found to be fully oriented and without any HI. Patient has Chronic SI but denies plan/intent to harm self. Patient has good insight and fair judgment and wants to continue treatment. Patient is not in imminent risk of harm to self or others and has a safety plan that includes presenting to the closest ER or calling 911 if feeling unsafe. Patient has been observed closely by nursing and unit staff throughout this admission; patient has not engaged in any behaviors that suggest dangerousness to self or others and has demonstrated appropriate behaviors and impulse control Discharge Date/Time: 05/04/25 10:30
== END 2025-05-04 10:30 | disposition home or self-care (01) | DRG 883 ==
LOC: HO.ED 05-03 03:58 → HO.PADLT16 05-03 13:34
PROVIDERS: Admitting Provider Nurse Practitioner Psychiatric/Mental Health; Emergency Provider Emergency Medicine Emergency Medical Services; PCP Nurse Practitioner Family; Visit Provider Nurse Practitioner Psychiatric/Mental Health
DX: F60.3 Borderline personality disorder (principal); R45.851 Suicidal ideations; N39.0 Urinary tract infection, site not specified; F41.1 Generalized anxiety disorder; Z79.899 Other long term (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
CPT/HCPCS: 36415; 80053; 80143; 80178; 80179; 80307; 81001; 85025; 87086; 93005; 99285; S9485

== ENCOUNTER → 2025-05-02 17:39 | Outpatient (BNV) | payer MEDICARE, MEDICAID, SELFPAY | PROVIDERS: Emergency Provider Emergency Medicine Emergency Medical Services; PCP Nurse Practitioner Family; Visit Provider Internal Medicine Cardiovascular Disease | DX: R00.1 Bradycardia, unspecified (principal) | CPT/HCPCS: 93010 ==

== ENCOUNTER → 2025-05-03 13:06 | Outpatient (BNV) | payer MEDICARE, MEDICAID, SELFPAY | PROVIDERS: Admitting Provider Nurse Practitioner Psychiatric/Mental Health; Emergency Provider Emergency Medicine Emergency Medical Services; PCP Nurse Practitioner Family; Visit Provider Nurse Practitioner Psychiatric/Mental Health | DX: F41.1 Generalized anxiety disorder (principal); F60.3 Borderline personality disorder | CPT/HCPCS: 90792 ==

== ENCOUNTER 2025-05-04 12:46 | Emergency (ER) | payer MEDICARE, MEDICAID, SELFPAY ==
--- NOTE | ~2025-05-04 | XR_ITS ---
EXAMINATION: XR FOOT, LEFT CLINICAL INFORMATION: great toe injury COMPARISON: None available. TECHNIQUE: AP, lateral, and oblique views of the left foot. FINDINGS: There is no fracture. There is increased density of the nail of the great toe which appears elevated on the lateral view. No other abnormalities are evident. XR/XR foot LT min 3V IMPRESSION: No acute bony abnormality. Electronically signed by: Fabiano Lazar MD 05/04/2025 03:10 PM EDT
--- NOTE | 2025-05-04 12:48 | ED.PSYCH ---
HPI - Psych General Chief Complaint: Psychiatric Symptoms Stated Complaint: bh Time Seen by Provider: 05/04/25 12:48 Source: patient, RN notes reviewed and old records reviewed Mode of arrival: ambulatory Limitations: no limitations History of Present Illness ED Provider: Harman HPI Narrative: Patient is a 39-year-old female with history of PTSD, MDD, GERD, anorexia nervosa, borderline personality disorder, pacemaker presenting to the emergency department with complaint of depression and suicidal ideation with plan to cut herself or jump off a bridge. States she has been sectioned 3 times this week. Reports recent inpatient hospitalization. States that she has been taking her medications as prescribed without improvement. Reports she was recently started on lithium. States she is also currently being treated for UTI. She denies any homicidal ideation, auditory or visual hallucinations. She complains of chronic neck and back pain but denies any acute physical complaints. MD complaint: suicidal ideation and feels depressed Related Data Home Medications ?Medication ?Instructions ?Recorded ?Confirmed acetaminophen 325 mg tablet 975 mg PO Q8H PRN Pain (Scale 04/22/25 05/05/25 Score 1-3) ljmwdveykg-hwyrmzvcukixg-hrngwrvd 1 tab PO DAILY PRN migraine 05/03/25 05/05/25 50 mg-325 mg-40 mg tablet quetiapine 50 mg tablet 50 mg PO BEDTIME 05/03/25 05/05/25 tamsulosin 0.4 mg capsule 0.4 mg PO BEDTIME 05/03/25 05/05/25 trazodone 50 mg tablet 50 mg PO BEDTIME PRN insomnia 05/03/25 05/05/25 Previous Rx's ?Medication ?Instructions ?Recorded hydroxyzine HCl 25 mg tablet 25 mg PO TID PRN mild anxiety 30 05/02/25 days #30 tabs lithium carbonate 300 mg 300 mg PO BEDTIME 7 days #7 tabs 05/02/25 tablet,extended release quetiapine 150 mg tablet 150 mg PO BEDTIME 30 days #30 tabs 05/02/25 Allergies Allergy/AdvReac Type Severity Reaction Status Date / Time azithromycin Allergy Itching Verified 05/04/25 13:04 levofloxacin (From Levaquin) Allergy Nightmare Verified 05/04/25 13:04 nitrofurantoin (From Allergy Itching Verified 05/04/25 13:04 Macrodantin) Review of Systems Review of Systems: As per HPI Yes all other systems are reviewed and are negative Constitutional: Constitutional: Reports as per HPI [facility] Past Medical History Medical History (Updated 05/05/25 @ 11:18 by Diana Mendieta) Borderline personality disorder Anorexia Left wrist injury Scoliosis Swelling Osteoporosis Arthritis Asthma Mood disorder Indwelling Joseph catheter present MDD (major depressive disorder), recurrent severe, without psychosis Sacral nerve stimulator present Rectocele Juvenile osteoporosis Compression fx, lumbar spine History of wrist fracture Myofascial pain syndrome Benzodiazepine dependence Anxiety and depression Surgical History History of vaginal surgery History of bladder surgery H/O wrist surgery History of left knee surgery History of right knee surgery History of brain surgery History of placement of ear tubes H/O cystoscopy Family History Family History Mother High blood pressure Cardiovascular disease Father Prostate cancer Social History Social History Household Members: Family Household Members Other:: dying mother, 43y.o. brother Housing: House Are you a primary small animal caretaker to a significant other at home: No Do you presently have visiting nurse or other home services: No Alcohol intake: former Comment: 1:1 sitter Patient Tobacco Use Status: Current everyday Tobacco user Tobacco use type: Cigarette Cigarette Packs Per Day: 1 Cigarettes Per Day: 20.0 Years Smoked: Over 20 years Smoked in Last 30 Days: No e-Cigarette/Vaping Use: Currently Using Second Hand Smoke Exposure: No Substance Use Type: Opiates Advance Directives: Yes Advance Directives on File: Yes Advance Directives Date on File: 07/29/24 Do you have a plan to hurt others: No Plan service: No Current occupational status: disabled Current occupational exposures/hazards: No Sexual orientation: Straight/Heterosexual Cognitive needs: No Hearing needs: No Vision needs: No Physical Exam Vital Signs: Vital Signs: Last Vital Signs Temp 98.7 F 05/05/25 00:32 Pulse 88 05/05/25 00:32 Resp 18 05/05/25 00:32 BP 107/88 05/05/25 00:32 Pulse Ox 98 05/05/25 00:32 O2 Del Method Room Air 05/05/25 00:32 BMI result Body Mass Index 21.0 Vital signs have been reviewed and appear to be correct. Blood pressure normal. Heart rate normal. Respiratory rate normal. Temperature normal. Oxygen saturation normal. Const: General: cooperative and no acute distress Nutritional Appearance: thin Orientation/consciousness: oriented to person, oriented to place, oriented to time and patient oriented x3 HEENT: Head: Yes normocephalic and Yes atraumatic Ears: external ears normal General nose exam: Normal external nose present Face and sinus: Yes face symmetric Mouth: oropharynx normal and moist mucous membranes Throat: Yes uvula midline Eyes: Pupils: Equal, round and reactive pupils present Neck: Neck: Yes normal visual inspection and Yes supple Resp: Effort & Inspection: normal respiratory effort and able to speak in complete sentences Auscultation: clear to auscultation bilaterally Cardio: Rate: regular rate Rhythm: regular rhythm Heart sounds: S1 normal heart sound present and S2 normal heart sound present GI: Palpation (GI): Soft to palpation and nontender Auscultation: normoactive bowel sounds : General: Yes no CVA tenderness Back/Spine/Pelvis: Back: no CVA tenderness Skin: General skin exam: elasticity normal and turgor normal Neuro: General: oriented to person, oriented to place, oriented to time, patient oriented x3, moves all extremities, no focal motor deficits and CN's II-XI intact bilaterally Cranial nerves: Yes Equal, round and reactive pupils present Cognition (Neuro): normal cognition Extrem: General: Yes full ROM, Yes no pedal edema and Yes no calf tenderness Psych: Appearance: grossly normal Mental Status: mental status grossly normal Speech and movement: Normal speech and movement present Affect: Anxious affect present Attitude: cooperative Thought process: Normal thought process present Thought content: Suicidality present, no homicidality, no hallucinations and Depressive thoughts present Insight: Limited insight present (Psych) Judgement: Limited judgement present (Psych) Course Reevaluation(s) Reevaluation #1: Time: 06:22 Date: 05/05/25 Provider: Jimy Monterroso MD Patient in physician observation for psychiatric evaluation.? No acute events reported overnight. No current complaints. VS stable.? Patient is in bed search status/pending CARE team evaluation. Will continue to monitor. Reevaluation #2: Patient was seen by crisis at bed [facility] was secured, the patient will be discharged to [facility] via ambulance this will end the ED obs 05/05/2025 11:24 AM Time: 11:24 Medications Administered Generic Name Dose Route Start Last Admin Trade Name Leroy PRN Reason Stop Dose Admin Cephalexin HCl 500 mg 05/04/25 22:00 05/05/25 06:01 Cephalexin 500 Mg Capsule PO 500 mg Q8H ELMO Administration Hydroxyzine HCl 25 mg 05/04/25 21:16 05/04/25 21:42 Hydroxyzine Hcl 25 Mg Tablet PO 25 mg TID PRN Administration mild anxiety [place] Carbonate 300 mg 05/04/25 21:30 05/04/25 21:41 [place] Carbonate Er 300 Mg Tablet.Er PO 300 mg BEDTIME ELMO Administration Quetiapine Fumarate 50 mg 05/04/25 21:30 05/04/25 21:42 Quetiapine Fumarate 50 Mg Tablet PO 50 mg BEDTIME ELMO Administration Tamsulosin HCl 0.4 mg 05/04/25 21:30 05/04/25 22:41 Tamsulosin Hcl 0.4 Mg Capsule PO Not Given BEDTIME ELMO Trazodone HCl 50 mg 05/04/25 21:16 05/04/25 21:41 Trazodone Hcl 50 Mg Tablet PO 50 mg BEDTIME PRN Administration Insomnia Medical Decision Making Medical Decision Making [facility] Narrative: Patient is a 39-year-old female with history of PTSD, MDD, GERD, anorexia nervosa, borderline personality disorder, pacemaker presenting to the emergency department with complaint of depression and suicidal ideation with plan to cut herself or jump off a bridge. On exam patient is awake, A+Ox3, VS WNL, afebrile, normal neurological exam without focal deficits, physical exam findings as above. Given reported symptoms and physical exam findings, initial differential includes but is not limited to depression, suicidal ideation. Labs unremarkable. Urinalysis appears improving from 05/02 visit. Will medically clear patient at this time for care team evaluation and place on physician observation. Differential Diagnosis Differential Diagnoses: The differential diagnosis associated with the presentation includes As per [facility] Admission/Observation Consideration of admission/observation: Escalation of care including admission/observation considered Consult Healthcare Provider Management of the patient was discussed with: Behavioral Health Provider Lab Data [facility] Lab Attestation statement: I reviewed the patient's lab results. As per [facility] 05/04/25 13:37 05/04/25 13:37 Labs: Lab Results 05/04/25 05/04/25 Range/Units 13:17 13:37 WBC 8.7 (4.8-10.8) X10*3/uL RBC 3.63 L (4.20-5.50) X10*6/uL Hgb 11.9 L (12.0-16.0) g/dl Hct 34.5 L (37.0-47.0) % MCV 95.0 (80.0-98.0) fL MCH 32.8 (27.0-33.0) pg MCHC 34.5 (31.0-35.0) g/dl RDW 13.6 (11.0-16.0) % Plt Count 202 (160-400) X10*3/uL MPV 10.5 (9.4-12.3) fL Immature Gran % (Auto) 0.5 H (0.0-0.4) % Neut % (Auto) 77.0 H (45-73) % Lymph % (Auto) 16.2 L (20-40) % [place] % (Auto) 5.2 (2-11) % Eos % (Auto) 0.3 (0-4) % Baso % (Auto) 0.8 (0-2) % Lymph # (Auto) 1.4 (1.2-4.9) X10*3/uL [place] # (Auto) 0.5 (0.1-1.2) X10*3/uL Eos # (Auto) 0.0 (0.0-0.4) X10*3/uL Baso # (Auto) 0.1 (0.0-0.2) X10*3/uL Abs Immat Gran (auto) 0.04 H (0.00-0.03) X10*3/uL Absolute Neuts (auto) 6.7 (2.0-8.3) x10*3/uL Absolute Nucleated RBC 0.000 (0.0-0.012) X10*3/uL Nucleated RBC % (auto) 0.0 (0.0-0.2) /100WBC Sodium 143 (135-145) mmol/L Potassium 3.5 (3.3-5.1) mmol/L Chloride 112 H (96-108) mmol/L Carbon Dioxide 25 (22-29) mmol/L Anion Gap 10 L (12-20) BUN 9 (9-16) mg/dL Creatinine 0.66 (0.5-1.4) mg/dL Estim Creat Clear Calc 90.4 Estimated GFR > 60 Random Glucose 104 (60-115) mg/dL Calcium 10.0 D (8.4-10.2) mg/dL Total Bilirubin 0.3 (0.0-1.0) mg/dL AST 15 (5-31) U/L ALT 7 (0-31) U/L Alkaline Phosphatase 53 (39-117) U/L Total Protein 6.3 L (6.5-8.0) g/dL Albumin 4.1 (3.5-5.0) g/dL Urine Color Yellow Urine Appearance Clear Urine pH 7.0 (5.0-9.0) Ur Specific [place] 1.015 (1.005-1.025) Urine Protein Negative (Neg-Trace) mg/dL Urine Glucose (UA) Negative (Negative) mg/dL Urine Ketones Negative (Negative) mg/dL Urine Blood Negative (Negative) Urine Nitrite Negative (Negative) Ur Leukocyte Esterase Trace H (Negative) Urine RBC 0-2 (0-2) /HPF Urine WBC 11-20 H (0-5) /HPF Ur Squamous Epith Cells >20 (0-2) /HPF Urine Bacteria 2+ (None Seen) Hyaline Casts 0-2 (0-2) /LPF Urine Test NEGATIVE (NEGATIVE) Urine Opiates Screen Not Detected (Not Detect) Ur Buprenorphine Scrn Not Detected (Not Detect) ng/mL Ur Oxycodone Screen Not Detected (Not Detect) ng/mL Urine Methadone Screen Not Detected (Not Detect) ng/mL Urine Fentanyl Screen Not Detected (Not Detect) Ur Barbiturates Screen Not Detected (Not Detect) Ur Phencyclidine Scrn Not Detected (Not Detect) Ur Amphetamines Screen Not Detected (Not Detect) U Benzodiazepines Scrn Not Detected (Not Detect) Urine Cocaine Screen Not Detected (Not Detect) U Marijuana (THC) Screen Not Detected (Not Detect) Ethyl Alcohol < 10 mg/dL External Record Review External record reviewed: Inpatient record, Office record and Outpatient record Discharge Plan Discharge Clinical Impression: Suicidal ideation, Planning to commit suicide, PTSD (post-traumatic stress disorder) Depression, unspecified Qualifiers: Depression Type: unspecified Qualified Code(s): F32.A - Depression, unspecified Bulimia nervosa Qualifiers: Eating disorder severity or remission status: unspecified severity Qualified Code(s): F50.20 - Bulimia nervosa, unspecified Patient Disposition: Xfer Psychiatric Hosp Transfer Details: TO: [facility] Prescriptions: No Action acetaminophen 325 mg tablet 975 mg PO Q8H PRN (Reason: Pain (Scale Score 1-3)) quetiapine 50 mg tablet 50 mg PO BEDTIME Rx Instructions: Taken with 150mg for TDD of 200mg at bedtime. trazodone 50 mg tablet 50 mg PO BEDTIME PRN (Reason: insomnia) fsrtuacmfz-bmelejfsmnjxe-bdct 50-325-40 mg tablet 1 tab PO DAILY PRN (Reason: migraine) tamsulosin 0.4 mg capsule 0.4 mg PO BEDTIME lithium carbonate 300 mg Tablet Extended Release 300 mg PO BEDTIME 7 Days Qty: 7 3RF hydroxyzine HCl 25 mg tablet 25 mg PO TID PRN (Reason: mild anxiety) 30 Days Qty: 30 0RF quetiapine 150 mg tablet 150 mg PO BEDTIME 30 Days Qty: 30 0RF Rx Instructions: Taken with 50mg for TDD of 200mg at bedtime. Referrals: [facility] [Outside] Tonny Villalobos MD [Physician, Urology] Debi Machado CNP [Primary Care Provider, Internal Medicine] Interventions: Hale-Suicide Risk Severity Scale Last Done: 05/04/25 13:06 Print Language: French
[2025-05-04 13:01] VITALS: BP 102/74; PULSE 64; RESP 16; TEMP 37.3; O2SAT 97; BMI 21.0
[2025-05-04 13:06] VITALS: BP 102/74; PULSE 64; RESP 16; TEMP 37.3; O2SAT 97
[2025-05-04 13:34] LABS: Appearance Urine Clear; Glucose Urine UA Negative (Negative); PH 7.0 (5.0-9.0); Specific Gravity - Urine 1.015 (1.005-1.025); UMIC TRIGGER UACC YES
[2025-05-04 13:35] LABS: UPreg QC Valid YES
[2025-05-04 13:36] LABS: Cannabinoid Screen Urine Not Detected (Not Detect)
[2025-05-04 13:37] LABS: UACC Culture Trigger YES
[2025-05-04 13:41] LABS: MANUAL DIFF FLAG NO
[2025-05-04 13:47] LABS: Hematocrit 34.5 % (37.0-47.0); Hemoglobin 11.9 g/dl (12.0-16.0); Imm Gran Abs Auto 0.04 X10*3/uL (0.00-0.03); Imm Gran Pct Auto 0.5 % (0.0-0.4); Lymphocytes Absolute Auto 1.4 X10*3/uL (1.2-4.9); Mean Corpuscular HGB Conc 34.5 g/dl (31.0-35.0); Mean Corpuscular Hemoglobin 32.8 pg (27.0-33.0); Mean Corpuscular Volume 95.0 fL (80.0-98.0); NRBC Abs Auto 0.000 X10*3/uL (0.0-0.012); NRBC Pct Auto 0.0 /100WBC (0.0-0.2); Platelet Count 202 X10*3/uL (160-400); Red Blood Count 3.63 X10*6/uL (4.20-5.50); White Blood Count 8.7 X10*3/uL (4.8-10.8)
[2025-05-04 14:00] VITALS: BP 102/74; PULSE 64; RESP 16; TEMP 37.3; O2SAT 97
[2025-05-04 14:03] LABS: Alanine Aminotransferase 7 U/L (0-31); Albumin Level 4.1 g/dL (3.5-5.0); Alkaline Phosphatase 53 U/L (39-117); Anion Gap 10 (12-20); Aspartate Amino Transferase 15 U/L (5-31); Blood Urea Nitrogen 9 mg/dL (9-16); Calcium 10.0 mg/dL (8.4-10.2); Carbon Dioxide 25 mmol/L (22-29); Chloride 112 mmol/L (96-108); Creatinine Clr Calc Pharmacy 90.4; Estimated Glomerular Filt Rate > 60; Potassium 3.5 mmol/L (3.3-5.1); Sodium 143 mmol/L (135-145); Total Protein 6.3 g/dL (6.5-8.0)
--- NOTE | 2025-05-04 15:25 | PC.NURSE ---
Pt arrives from Ps. appointment for +SI with a plan to cut or jump off a bridge. She is calm and cooperative with her change and VS. she is oriented to the unit and provided food and drink. Medications are reviewed, she states she is still taking antib. for a UTI. Pt is take off the unit for an Xray of her foot. Safety is maintained. SHe asks to talk to Hospice Admitting Clerk Gonzales, he is called and a message is left with the covering bunch breaker machine operator. She remains in her room resting.
[2025-05-04 20:49] VITALS: BP 101/70; PULSE 71; RESP 20; TEMP 36.7; O2SAT 98
[2025-05-04 21:52] VITALS: PULSE 66; RESP 16; TEMP 37.1
[2025-05-05 00:32] VITALS: BP 107/88; PULSE 88; RESP 18; TEMP 37.1; O2SAT 98
--- NOTE | 2025-05-05 06:03 | PC.NURSE ---
medication per mar.
--- NOTE | 2025-05-05 07:00 | PC.NURSE ---
Care of Pt assumed at change of shift. Pt is observed resting quietly with eye closed. NAD noted. Breakfast tray left at bedside.
--- NOTE | 2025-05-05 09:08 | PHA.MEDREC ---
Addendum entered by Camila Armas RPh 05/05/25 09:40: REVIEWED BY PHARMACIST Original Note: Pharmacy Consult ? Medication Reconciliation Pharmacy reviewed med rec done by nursing. Pt just discharged with us yesterday (05/04) and came right back; spoke with pt and she confirmed she was not able to rock picker the antibiotic prescribed to her (Cephalexin) and nothing else changed from her medications upon DC.
--- NOTE | 2025-05-05 10:29 | MHC.CARE ---
Pt has been accepted to [facility] for today. [facility] will be calling the RN to do report and set up ETA. The accepting provider is Dr. Harris and the address is [address] [place] [address]. If they do not call for [id number] here is their number [phone]. CARE team and pod RN notified of placement.
--- NOTE | 2025-05-05 10:43 | PC.NURSE ---
Call received from FRED Harding at [facility] to complete RN to RN report for transfer. Full report given and Era given opportunity for questions---all questions answered to satisfaction Pt awaiting ambulance transport.
[2025-05-05 11:38] VITALS: BP 122/86; PULSE 60; RESP 18; TEMP 36.5; O2SAT 99
[2025-05-05 11:49] VITALS: BP 122/86; PULSE 60; RESP 18; TEMP 36.5; O2SAT 99
== END 2025-05-05 11:50 ==
PROVIDERS: Emergency Provider Emergency Medicine; PCP Family Medicine
DX: F43.10 Post-traumatic stress disorder, unspecified (principal); R45.851 Suicidal ideations; F50.20 Bulimia nervosa, unspecified; F50.00 Anorexia nervosa, unspecified; N39.0 Urinary tract infection, site not specified; M54.2 Cervicalgia; M54.9 Dorsalgia, unspecified
CPT/HCPCS: 36415; 73630; 80053; 80307; 81001; 81025; 85025; 87086; 99285; S9485

== ENCOUNTER → 2025-05-04 14:05 | Outpatient (BNV) | payer MEDICARE, MEDICAID, SELFPAY | PROVIDERS: Emergency Provider Emergency Medicine; PCP Nurse Practitioner Family; Visit Provider Radiology Diagnostic Radiology | DX: M79.675 Pain in left toe(s) (principal) | CPT/HCPCS: 73630 ==

== ENCOUNTER 2025-05-27 16:06 | Inpatient (IN) | payer MEDICARE, MEDICAID, SELFPAY ==
--- NOTE | 2025-05-27 | ECG_ITS ---
Test Reason : TG Blood Pressure : */* mmHG Vent. Rate : 94 BPM Atrial Rate : 94 BPM P-R Int : 134 ms QRS Dur : 92 ms QT Int : 386 ms P-R-T Axes : 67 28 -4 degrees QTcB Int : 482 ms Artifact in tracing Normal sinus rhythm Nonspecific ST and T wave abnormality Abnormal ECG When compared with ECG of 02-May-2025 18:00, Vent. rate has increased by 36 bpm RSR' pattern in V1 is now Present T wave inversion now evident in Inferior leads Referred By: Generic ED Physician Electronically Signed By: RILEY JORGE
--- NOTE | 2025-05-27 | ECG_ITS ---
Test Reason : REPEAT EKG Blood Pressure : */* mmHG Vent. Rate : 68 BPM Atrial Rate : 68 BPM P-R Int : 138 ms QRS Dur : 88 ms QT Int : 446 ms P-R-T Axes : 53 26 29 degrees QTcB Int : 474 ms Normal sinus rhythm Normal ECG When compared with ECG of 27-May-2025 19:24, No significant change was found Referred By: Jaquelin Mathias Electronically Signed By: RILEY JORGE
[2025-05-27 16:12] VITALS: BP 122/75; BP 128/74; PULSE 110; PULSE 111; RESP 17; TEMP 36.7; O2SAT 96; BMI 17.4
[2025-05-27 16:23] VITALS: BP 128/74; PULSE 111; RESP 17; TEMP 36.7; O2SAT 96
--- OUTSIDE RECORDS SUMMARY | 2025-05-27 16:30 | XMS_ITS | Encounter Summary ---
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 It is not the complete legal health record.[facility]
--- OUTSIDE RECORDS SUMMARY | 2025-05-27 16:30 | XMS_ITS | Encounter Summary ---
Author Organization [facility] Address [address] [place] [address] Care Team Providers Care Supervisor Laundry Name Role Phone Cami Gant NP, Verito Primary Care Provider [phone] Encounter Details Date Type Department Care Team (Late st Contact Info) Description 08/10/2024 Lab Requisition [facility] - Main Lab [address] [facility] [place] [address] Shavonne Zavaleta NP [address] [place] [address] Social History Tobacco Use Types [...] direct LDL Lab Routine Ordered: [address] [place] level Lab Routine Ordered: Hemoglobin A1c Lab Routine Ordered: 1 10/11/2023 documented as of this encounter Visit Diagnoses Not on filedocumented in this encounter Care Teams Supervisor Laundry Relationship Specialty Start Date End Date Verito Almanza NP [address] [place] [phone] PCP - General Psychiatry 05/10/25 documented as of this encounter
--- OUTSIDE RECORDS SUMMARY | 2025-05-27 16:30 | XMS_ITS | Encounter Summary ---
Author Organization [facility] Address [address] [place] [address] Care Team Providers Care Electrician Third Name Role Phone Cami Gant NP, Verito Primary Care Provider [phone] Encounter Details Date Type Department Care Team (Late st Contact Info) Description 05/06/[address] 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 documented in this encounter Results * (ABNORMAL) Glucose, random (05/06/2025 7:00 AM EDT) Glucose 116(H) 70 - 100 mg/dL LAB CHEMISTRY METHOD 05/06/2025 12:32 PM EDT [facility] Blood Venous blood specimen / Unknown Venipuncture / Unknown 05/06/2025 7:00 AM EDT 05/06/2025 11:14 AM EDT us Verito Almanza V PHLEBOTOMY SERVICES REPRESENTATIVE LAB BLOOD ORDERABLES Final Re sult [facility] [address] [place] [address], [place] [phone] * (ABNORMAL) Lipid panel with reflex to direct LDL (05/06/2025 7:00 AM EDT) Cholesterol 198 0 - 200 mg/dL LAB CHEMISTRY METHOD 05/06/2025 12:32 PM [facility] Triglycerides 160(H) 0 - 150 mg/dL LAB CHEMISTRY METHOD 05/06/2025 12:32 PM [facility] HDL 79 >=40 mg/dL LAB CHEMISTRY METHOD 05/06/2025 12:32 PM T [facility] LDL Calculated 87 0 - 100 mg/dL LAB CHEMISTRY METHOD 05/06/2025 12:32 PM [facility] Comment:Estimated LDL Calcul ated using equation: Total cholesterol - HDL cholesterol - (Triglycerides/5) VLDL Cholesterol Rahul 32 mg/dL LAB CHEMISTRY METHOD 05/06/2025 12:32 PM T [facility] Non HDL Chol. (LDL+VLDL) 119 <145 mg/dL LAB CHEMISTRY METHOD 05/06/2025 12:32 PM [facility] Chol/HDL Ratio 2.5 0.0 - 4.4 LAB CHEMISTRY METHOD 05/06/2025 12:32 PM [facility] Blood Venous blood specimen / Unknown Venipuncture / Unknown 05/06/2025 7:00 AM EDT 05/06/2025 11:14 AM EDT Verito Gant NP LAB BLOOD ORDERABLES Final Re sult Performing Organization Address [facility] [place] [facility] Co de Phone Number [facility] [address] [place] [address], [place] [phone] * Hemoglobin A1c (05/06/2025 7:00 AM EDT) Pathologist [facility] Hemoglobin A1C 5.2 <6.5 % LAB CHEMISTRY METHOD 05/08/2025 10:46 AM EDT [facility] Mean Bld Glu Estim. 103 mg/dL LAB CHEMISTRY METHOD 05/08/2025 10:46 AM EDT [facility] Blood Venous blood specimen / Unknown Venipuncture / Unknown 05/06/2025 7:00 AM EDT 05/06/2025 11:14 AM EDT Verito Gatn NP LAB BLOOD ORDERABLES Final Re sult Performing Organization Address [facility] [place] [facility]/ZIP Co de Phone Number [facility] [address] [place] [address], [place] [phone] documented in this encounter Visit Diagnoses Diagnosis Other assisted (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 documented in this encounter Care Teams Electrician Third Relationship Specialty Start Date End Date Verito Almanza NP [address] [place] [phone] PCP - General Psychiatry 05/10/25 documented as of this encounter
--- OUTSIDE RECORDS SUMMARY | 2025-05-27 16:30 | XMS_ITS | Clinical Summary ---
Author Organization [facility] Address [address] [place] [address] Phone Care Team Providers Care Reel Repairer Name Role Phone Cami Gant STUDENT LIFE VICE PRESIDENT, Verito Primary Care Provider [phone] Encounters Date Type Department Care Team Description 05/10/2025 Lab Requisition [facility] Lab [address] [place] [phone] Staple, Verito V, STUDENT LIFE VICE PRESIDENT 05/10/2025 Lab Requisition [facility] Lab [address] [place] [phone] Staple, Verito V, STUDENT LIFE VICE PRESIDENT Other halfway (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 05/06/2025 Lab Requisition [facility] Lab [address] [place] [phone] Staple, Verito V, STUDENT LIFE VICE PRESIDENT Other meterman (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 from Last 3 Months Surgical History Surgery Date Site/Laterality Comments KNEE SURGERY 07/27/07 PROCEDURE: HISTORICAL KNEE SURGERY; COMMENT: 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 Olivas - 2017 per patient Medical History Medical History Date Comments Anorexia nervosa (CMS/FORMER[facility] V28) 11/16/2007 D X:Anorexia nervosa [...] - 19+ 3-dose series) 2004 Pneumococcal Vaccine: Pediatrics (0 to 5 Years) and At-Risk Patients (6 to 49 Years) (1 of 2 - PCV) 2004 Cervical Cancer Screening: P ap Smear 2006 HPV Vaccines (2 - 3-dose series) 02/15/2008 01/18/2008 DTaP,Tdap,and Td Vaccines (2 - Td or Tdap) 01/17/2018 01/18/2008 HIV Screening 07/22/2022 Hepatitis C Screening 07/22/2022 Social Influencers of Health Screening 07/22/2022 Depression Screening 08/24/2024 COVID-19 Vaccine (1 - 2023-2 5 season) 2025 Influenza Vaccine (#1) 2025 Cholesterol Screening (Lipid Panel) 05/06/2030 05/06/2025, 08/03/2024 RSV Immunization Adult Patients (1 - 1-dose 75+ series) 2060 HIB Vaccines Aged Out No longer eligi [...] to complete this topic RSV Immunization Patients Under 20 months Aged Out No longer eligible b ased on patient's age to complete this topic Varicella Vaccines Aged Out No longer eligible based on patient's age to complete this topic Procedures Procedure Name Priority Date/Time Associated Diagnosis Comments LITHIUM LEVEL Routine 05/10/2025 7:00 AM EDT Other meterman (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 GLUCOSE, RANDOM Routine 05/06/2025 7:00 AM EDT Other meterman (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 LIPID PANEL WITH REFLEX TO DIRECT LDL Routine 05/06/2025 7:00 AM EDT Other halfway (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 HEMOGLOBIN A1C Routine 05/06/2025 7:00 AM EDT Other meterman (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 from Last 3 Months Results * (ABNORMAL) [place] level (05/10/2025 7:00 AM EDT) [place] Level 0.3(L) 0.6 - 1.2 mEq/L LAB CHEMISTRY METHOD 05/10/2025 11:59 AM EDT [facility] Blood Venous blood specimen / Unknown Venipuncture / Unknown 05/10/2025 7:00 AM EDT 05/10/2025 10:59 AM EDT us Verito Almanza V, STUDENT LIFE VICE PRESIDENT LAB BLOOD ORDERABLES Final Re sult [facility] [address] [place] [address], * (ABNORMAL) Lipid panel with reflex to direct LDL (05/06/2025 7:00 AM EDT) Cholesterol 198 0 - 200 mg/dL LAB CHEMISTRY METHOD 05/06/2025 12:32 PM EDT [facility] Triglycerides 160(H) 0 - 150 mg/dL LAB CHEMISTRY METHOD 05/06/2025 12:32 PM EDT [facility] HDL 79 >=40 mg/dL LAB CHEMISTRY METHOD 05/06/2025 12:32 PM EDT [facility] LDL Calculated 87 0 - 100 mg/dL LAB CHEMISTRY METHOD 05/06/2025 12:32 PM EDT [facility] Comment:Estimated LDL Calcul ated using equation: Total cholesterol - HDL cholesterol - (Triglycerides/5) VLDL Cholesterol Rahul 32 mg/dL LAB CHEMISTRY METHOD 05/06/2025 12:32 PM EDT [facility] Non HDL Chol. (LDL+VLDL) 119 <145 mg/dL LAB CHEMISTRY METHOD 05/06/2025 12:32 PM EDT [facility] Chol/HDL Ratio 2.5 0.0 - 4.4 LAB CHEMISTRY METHOD 05/06/2025 12:32 PM EDT [facility] Blood Venous blood specimen / Unknown Venipuncture / Unknown 05/06/2025 7:00 AM EDT 05/06/2025 11:14 AM EDT us Verito Almanza V STUDENT LIFE VICE PRESIDENT LAB BLOOD ORDERABLES Final Re sult [facility] [address] [place] [address], * Hemoglobin A1c (05/06/2025 7:00 AM EDT) Hemoglobin A1C 5.2 <6.5 % LAB CHEMISTRY METHOD 05/08/2025 10:46 AM EDT [facility] Mean Bld Glu Estim. 103 mg/dL LAB CHEMISTRY METHOD 05/08/2025 10:46 AM EDT [facility] Blood Venous blood specimen / Unknown Venipuncture / Unknown 05/06/2025 7:00 AM EDT 05/06/2025 11:14 AM EDT Verito Gant NP LAB BLOOD ORDERABLES Final Re sult Performing Organization Address City/[facility]/ZIP Co de Phone Number [facility] [address] [place] [address], [place] [phone] * (ABNORMAL) Glucose, random (05/06/2025 7:00 AM EDT) [facility] Glucose 116(H) 70 - 100 mg/dL LAB CHEMISTRY METHOD 05/06/2025 12:32 PM EDT [facility] Blood Venous blood specimen / Unknown Venipuncture / Unknown 05/06/2025 7:00 AM EDT 05/06/2025 11:14 AM EDT Verito Gant NP LAB BLOOD ORDERABLES Final Re sult Performing Organization Address [facility]/ZIP Co de Phone Number [facility] [address] [place] [address], [place] [phone] from Last 3 Months Care Teams Reel Repairer Relationship Specialty Start Date End Date Verito Almanza NP [address] [place] [phone] PCP - General Psychiatry 05/10/25
--- OUTSIDE RECORDS SUMMARY | 2025-05-27 16:30 | XMS_ITS | Clinical Summary ---
Author Organization [facility] Address [address] [place] [phone] Phone Care Team Providers Care Materials Assistant Name Role Phone Cassia Alanis Primary Care [...] Adult Td,Tdap Booster 10/22/2021 10/23/2011 , 01/18/2008 INFLUENZA VACCINE (#1) 2025 06/25/2007 COVID-19 VACCINE ( - 2023-2 5 season) 2025 HEPATITIS A VACCINES Aged Out No long [...] topic Medical Devices Not on file Insurance [employer] MEDICARE PART A & B [place] & [place] & [place] & B [facility] MEDICARE PART A & B Care Teams Materials Assistant Relationship Specialty Start Date End Date Cassia Alanis DO [address] [place] [address] PCP - General Family Medicine 09/01/23 Additional Source Comments The information contained in this document represents components of the legal health record. It is not the complete legal health record.[facility]
--- OUTSIDE RECORDS SUMMARY | 2025-05-27 16:30 | XMS_ITS | Encounter Summary ---
Author Organization [facility] Address [address] [place] [address] Care Team Providers Care Tube Balancer Name Role Phone Cami Gant NP, Verito Primary Care Provider [phone] Encounter Details Date Type Department Care Team (Late st Contact Info) Description 05/10/[address] [facility] [address] [facility] [place] [address] Verito Almanza NP [address] [place] [address] Other terminal system operator (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 Social History Tobacco Use [...] LEVEL Routine 05/10/2025 7:00 AM EDT Other shelter (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 documented in this encounter Results * (ABNORMAL) [place] level (05/10/2025 7:00 AM EDT) [place] Level 0.3(L) 0.6 - 1.2 mEq/L LAB CHEMISTRY METHOD 05/10/2025 11:59 AM EDT [facility] ([facility]) [facility] Blood Venous blood specimen / Unknown Venipuncture / Unknown 05/10/2025 7:00 AM EDT 05/10/2025 10:59 AM EDT Verito Gant NP LAB BLOOD ORDERABLES Final Re sult [facility] ([facility]) [facility] [address] [place] [address], documented in this encounter Visit Diagnoses Diagnosis Other shelter (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 documented in this encounter Care Teams Tube Balancer Relationship Specialty Start Date End Date Verito Almanza NP [address] [place] [phone] PCP - General Psychiatry 05/10/25 documented as of this encounter
--- OUTSIDE RECORDS SUMMARY | 2025-05-27 16:30 | XMS_ITS | Encounter Summary ---
Author Organization [facility] Address [address] [place] [address] Care Team Providers Care Inspector Rubber Stamp Die Name Role Phone Cami Gant NP, Verito Primary Care Provider [phone] Encounter Details Date Type Department Care Team (Late st Contact Info) Description 05/10/2025 Lab Requisition [facility] Lab [address] [facility] [place] [address] Verito Almanza NP [address] [place] [address] Social History Tobacco Use Types Packs/Day Years [...] on filedocumented in this encounter Care Teams Inspector Rubber Stamp Die Relationship Specialty Start Date End Date Verito Almanza NP [address] [place] [address] PCP - General Psychiatry 05/10/25 documented as of this encounter
--- OUTSIDE RECORDS SUMMARY | 2025-05-27 16:30 | XMS_ITS | Encounter Summary ---
Author Organization [facility] Address [address] [place] [address] Care Team Providers Care Tar Distillation Supervisor Name Role Phone Cami Gant NP, Verito Primary Care Provider [phone] Encounter Details Date Type Department Care Team (Late st Contact Info) Description 08/03/2024 Lab Requisition [facility] Lab [address] [facility] [place] [address] Shavonne Zavaleta NP [address] [place] [address] Other dedicated intermodal 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 Social [...] LDL Routine 08/03/2024 7:00 AM EST Other custodial (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 HEMOGLOBIN A1C Routine 08/03/2024 7:00 AM EST Other custodial (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 LITHIUM LEVEL Routine 08/03/2024 7:00 AM EST Other dedicated intermodal 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 documented in this encounter Results * (ABNORMAL) [place] level (08/03/2024 7:00 AM EST) [place] Level 0.5(L) 0.6 - 1.2 mEq/L LAB CHEMISTRY METHOD 08/03/2024 1:31 PM EST [facility] Blood Venous blood specimen / Unknown Venipuncture / Unknown 08/03/2024 7:00 AM EST 08/03/2024 12:08 PM EST Shavonne Zavaleta CLINICAL APPEALS RN LAB BLOOD ORDERABLES Fi nal Result [facility] [address] [place] [address], [place] [phone] * (ABNORMAL) Lipid panel with reflex to direct LDL (08/03/2024 7:00 AM EST) Cholesterol 201(H) 0 - 200 mg/dL LAB CHEMISTRY METHOD 08/03/2024 1:28 PM [facility] Triglycerides 185(H) 0 - 150 mg/dL LAB CHEMISTRY METHOD 08/03/2024 1:28 PM [facility] HDL 87 >=40 mg/dL LAB CHEMISTRY METHOD 08/03/2024 1:28 PM [facility] LDL Calculated 77 0 - 100 mg/dL LAB CHEMISTRY METHOD 08/03/2024 1:28 PM [facility] VLDL Cholesterol Rahul 37 mg/dL LAB CHEMISTRY METHOD 08/03/2024 1:28 PM [facility] Non HDL Chol. (LDL+VLDL) 114 <145 mg/dL LAB CHEMISTRY METHOD 08/03/2024 1:28 PM [facility] Chol/HDL Ratio 2.3 0.0 - 4.4 LAB CHEMISTRY METHOD 08/03/2024 1:28 PM [facility] Blood Venous blood specimen / Unknown Venipuncture / Unknown 08/03/2024 7:00 AM EST 08/03/2024 12:08 PM EST us Shavonne Eleojo Abimaje CLINICAL APPEALS RN LAB BLOOD ORDERABLES Fi nal Result Performing Organization Address City/[facility]/ZIP Co de Phone Number [facility] [address] [place] [address], [place] [phone] * Hemoglobin A1c (08/03/2024 7:00 AM EST) Hemoglobin A1C 4.7 <6.5 % LAB CHEMISTRY METHOD 08/03/2024 1:35 PM EST [facility] Mean Bld Glu Estim. 88 mg/dL LAB CHEMISTRY METHOD 08/03/2024 1:35 PM EST [facility] Blood Venous blood specimen / Unknown Venipuncture / Unknown 08/03/2024 7:00 AM EST 08/03/2024 11:51 AM EST Shavonne Eleochang Abimaje CLINICAL APPEALS RN LAB BLOOD ORDERABLES Fi nal Result Performing Organization Address City/[facility]/ZIP Co de Phone Number [facility] [address] [place] [address], [place] [phone] documented in this encounter Visit Diagnoses Diagnosis Other dedicated intermodal 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 documented in this encounter Care Teams Tar Distillation Supervisor Relationship Specialty Start Date End Date Verito Almanza NP [address] [place] [phone] PCP - General Psychiatry 05/10/25 documented as of this encounter
--- OUTSIDE RECORDS SUMMARY | 2025-05-27 16:30 | XMS_ITS | Encounter Summary ---
Author Organization [facility] Address [address] [place] [address] Phone Care Team Providers Care Photoflash Powder Mixer Name Role Phone Thuan Zarate MD Primary Care Provider [phone] Cassia Alanis DO Primary Care Provider [phone] Encounter Details Date Type Department Care Team (Latest Contact Info) Description 10/11/2020 Transcribe Orders Virtual Department [address] [place] [phone] Brent Delgado MD [address] [place] [phone] [email or web address] Encounter for laboratory testing for COVID-19 virus [...] documented as of this encounter Care Teams Photoflash Powder Mixer Relationship Specialty Start Date End Date Thuan Zarate MD [address] [facility] [address] [place] [address] [email or web address] PCP - General Family Medicine 10/11/20 08/31/23 Cassia Alanis DO [address] [place] [address] [email or web address] PCP - General Family Medicine 09/01/23 documented as of this encounter Additional Source Comments The information contained in this document represents components of the legal health record. It is not the complete legal health record.[facility]
--- NOTE | 2025-05-27 17:10 | PC.NURSE ---
Pt comes to ED via EMS s/p intentional ingestions of 800mg Seroquel in an attempt to take her life. Pt reports her mother passes away 2 days ago and she is unable to cope. She hopes her heart will just start or she will not wake up. A&Ox3, VSS, afebrile. Pt reports she still currently feels suicidal at this time. Pt changed into hospital attire and 1:[address] Pt reports feeling dizzy but otherwise offers no complaints. She denies ETOH/illicit drug use. Pt is resting quietly w/o distress at this time. Call placed to poison control to report incident and the following orders were received: EKG Q2H Blood labs--Electrolytes, liver panel, ASA, Tylenol, and blood glucose. Orders entered per recommendation along with u/a and MILLAN.
[2025-05-27 17:35] LABS: MANUAL DIFF FLAG NO
[2025-05-27 17:39] LABS: Hematocrit 35.9 % (37.0-47.0); Hemoglobin 12.9 g/dl (12.0-16.0); Imm Gran Abs Auto 0.01 X10*3/uL (0.00-0.03); Imm Gran Pct Auto 0.2 % (0.0-0.4); Lymphocytes Absolute Auto 1.7 X10*3/uL (1.2-4.9); Mean Corpuscular HGB Conc 35.9 g/dl (31.0-35.0); Mean Corpuscular Hemoglobin 33.0 pg (27.0-33.0); Mean Corpuscular Volume 91.8 fL (80.0-98.0); NRBC Abs Auto 0.000 X10*3/uL (0.0-0.012); NRBC Pct Auto 0.0 /100WBC (0.0-0.2); Platelet Count 267 X10*3/uL (160-400); Red Blood Count 3.91 X10*6/uL (4.20-5.50); White Blood Count 5.4 X10*3/uL (4.8-10.8)
[2025-05-27 18:04] LABS: Acetaminophen LAB < 3 mcg/mL (<30); Alanine Aminotransferase < 6 U/L (0-31); Albumin Level 4.3 g/dL (3.5-5.0); Alkaline Phosphatase 54 U/L (39-117); Anion Gap 13 (12-20); Aspartate Amino Transferase 17 U/L (5-31); Blood Urea Nitrogen 3 mg/dL (9-16); Calcium 9.0 mg/dL (8.4-10.2); Carbon Dioxide 21 mmol/L (22-29); Chloride 107 mmol/L (96-108); Creatinine Clr Calc Pharmacy 76.4; Estimated Glomerular Filt Rate > 60; Potassium 3.0 mmol/L (3.3-5.1); Salicylate < 5.0 mg/dL (15-30); Sodium 138 mmol/L (135-145); Total Protein 6.4 g/dL (6.5-8.0)
[2025-05-27 18:05] VITALS: BP 118/85; PULSE 90; RESP 18; O2SAT 98
--- NOTE | 2025-05-27 18:17 | ED.GENADULT ---
HPI - General Adult General Chief complaint: Psychiatric Symptoms Stated complaint: SI w/ attempt & statements PO 800mg antidepressant Time Seen by Provider: 05/27/25 18:14 Source: patient Mode of arrival: ambulatory Limitations: no limitations History of Present Illness ED Provider: Dr. Mathias HPI narrative: 39-year-old female history of anorexia borderline personality disorder, major depressive disorder presented hospital today for suicide attempt via Seroquel overdose. Patient stated around 15:00 today she tried to overdose with 800 mg of Seroquel. She states she takes 150 mg of Seroquel daily. Patient has had recently lost her mother. She has been increasingly depressed. She attempted to kill herself with Seroquel overdose Complaining of some nausea and drowsiness. No other complaints at this time. Related Data Home Medications ?Medication ?Instructions ?Recorded ?Confirmed acetaminophen 325 mg tablet 975 mg PO Q8H PRN Pain (Scale 04/22/25 05/28/25 Score 1-3) gsyziziltu-[id number]-[id number] 1 tab PO DAILY PRN migraine 05/03/25 05/28/25 50 mg-325 mg-40 mg tablet quetiapine 50 mg tablet 50 mg PO BEDTIME 05/03/25 05/28/25 tamsulosin 0.4 mg capsule 0.4 mg PO BEDTIME 05/03/25 05/28/25 trazodone 50 mg tablet 50 mg PO BEDTIME PRN insomnia 05/03/25 05/28/25 hydroxyzine pamoate 50 mg capsule 50 mg PO Q8H PRN Anxiety 05/28/25 05/28/25 lithium carbonate 450 mg 450 mg PO BEDTIME 05/28/25 05/28/25 tablet,extended release oxcarbazepine 300 mg tablet 300 mg PO Q12H 05/28/25 05/28/25 Previous Rx's ?Medication ?Instructions ?Recorded quetiapine 150 mg tablet 150 mg PO BEDTIME 30 days #30 tabs 05/02/25 Allergies Allergy/AdvReac Type Severity Reaction Status Date / Time azithromycin Allergy Itching Verified 05/27/25 16:14 levofloxacin (From Levaquin) Allergy Nightmare Verified 05/27/25 16:14 nitrofurantoin (From Allergy Itching Verified 05/27/25 16:14 Macrodantin) Review of Systems Review of Systems: Pertinent review of systems as mentioned in HPI. All other system otherwise negative. [facility] Past Medical History [facility] Narrative: Medical history as mentioned in HPI Medical History (Updated 05/27/25 @ 23:52 by Jaquelin Mathias DO) Borderline personality disorder Anorexia Left wrist injury Scoliosis Swelling Osteoporosis Arthritis Asthma Mood disorder Indwelling Joseph catheter present MDD (major depressive disorder), recurrent severe, without psychosis Sacral nerve stimulator present Rectocele Juvenile osteoporosis Compression fx, lumbar spine History of wrist fracture Myofascial pain syndrome Benzodiazepine dependence Anxiety and depression Surgical History History of vaginal surgery History of bladder surgery H/O wrist surgery History of left knee surgery History of right knee surgery History of brain surgery History of placement of ear tubes H/O cystoscopy Family History Family History Mother High blood pressure Cardiovascular disease Father Prostate cancer Social History Social History Household Members: Family Household Members Other:: dying mother, 43y.o. brother Housing: House Are you a primary cna caregiver to a significant other at home: No Do you presently have visiting nurse or other home services: No Alcohol intake: former Comment: 1:1 sitter Patient Tobacco Use Status: Current everyday Tobacco user Tobacco use type: Cigarette Cigarette Packs Per Day: 1 Cigarettes Per Day: 20.0 Years Smoked: Over 20 years Smoked in Last 30 Days: Yes e-Cigarette/Vaping Use: Currently Using Second Hand Smoke Exposure: No Use of substances other than those prescribed or required for medical reasons: No Substance Use Type: Opiates Advance Directives: Yes Advance Directives on File: Yes Advance Directives Date on File: 07/29/24 Do you have a plan to hurt others: No Plan service: No Current occupational status: disabled Current occupational exposures/hazards: No Sexual orientation: Straight/Heterosexual Cognitive needs: No Hearing needs: No Vision needs: No Physical Exam ED Exam Exam: General: Pleasant, no distress, interacting appropriately Head: Normacephalic, atraumatic ENT: oral mucosa moist, neck supple, no tracheal deviation Cardiovascular: regular rate, regular rhythm, no murmurs, rubbing, gallops Respiratory: CTAB, no wheeze, rales, rhonchi Gastrointestinal: Soft, non distended, non tender, non guarding Extremities: No limb pain or swelling, no calf tenderness Neurological: Awake and alert, no facial droop noted Skin: Warm and dry Psychiatric: Endorses suicide ideation Vital Signs: Vital Signs - 24 hr 05/28/25 18:27 05/29/25 06:18 Temperature 98.8 F 97.6 F Pulse Rate 71 74 Respiratory Rate 14 15 Blood Pressure 146/77 H 124/81 Pulse Oximetry 99 98 Oxygen Delivery Method Room Air Room Air BMI result Body Mass Index 17.4 Course Reevaluation(s) Reevaluation #1: DR. Alcocer's Progress note 09:00, 05/28/2025: Patient in physician observation for psych evaluation, no acute events reported by nurse overnight, no current complaints, VSS, care team input is appreciated, bed search is underway, continue physician observation. Reevaluation #2: Time: 06:49 Date: 05/29/25 Provider: Emy Davis DO Patient in physician observation for psychiatric evaluation.? No acute events reported overnight. No current complaints. VS stable.? Patient is inpatient bed search. Will continue to monitor. Reevaluation #3: Time: 12:34 Date: 05/29/25 Provider: Emy Davis DO Physician observation ended at 1234 Patient to be admitted as inpatient to psychiatry Medications Administered Generic Name Dose Route Start Last Admin Trade Name Freq PRN Reason Stop Dose Admin Hydroxyzine HCl 50 mg 05/28/25 20:58 05/29/25 10:48 Hydroxyzine Hcl 50 Mg Tablet PO 50 mg Q8H PRN Administration Anxiety [place] Carbonate 450 mg 05/28/25 21:00 05/28/25 21:35 [place] Carbonate Er 450 Mg Tablet.Er PO 450 mg BEDTIME ELMO Administration Oxcarbazepine 300 mg 05/28/25 21:00 05/29/25 09:21 Oxcarbazepine 300 Mg Tablet PO 300 mg Q12H ELMO Administration Quetiapine Fumarate 50 mg 05/28/25 21:00 05/28/25 21:34 Quetiapine Fumarate 50 Mg Tablet PO 50 mg BEDTIME ELMO Administration Quetiapine Fumarate 150 mg 05/28/25 21:45 05/29/25 03:12 Quetiapine Fumarate 50 Mg Tablet PO 150 mg BEDTIME ELMO Administration Tamsulosin HCl 0.4 mg 05/28/25 21:00 05/28/25 21:35 Tamsulosin Hcl 0.4 Mg Capsule PO 0.4 mg BEDTIME ELMO Administration Trazodone HCl 50 mg 05/28/25 20:58 05/28/25 21:35 Trazodone Hcl 50 Mg Tablet PO 50 mg BEDTIME PRN Administration Insomnia Discontinued Medications Generic Name Dose Route Start Last Admin Trade Name Wallyq PRN Reason Stop Dose Admin Sodium Chloride 1,000 mls @ 999 mls/hr 05/27/25 21:45 05/28/25 01:11 Ns IV 05/27/25 22:45 Infused .Q1H1M ELMO Infusion Metoclopramide HCl 5 mg 05/27/25 22:31 05/28/25 00:06 Metoclopramide Hcl 10 Mg/2 Ml Vial IV 05/27/25 22:32 5 mg ONCE ONE Administration Potassium Bicarbonate 50 meq 05/27/25 18:24 05/27/25 18:30 Potassium Bicarbonate/Cit Ac 25 Meq Tablet.Eff PO 05/27/25 18:25 50 meq ONCE ONE Administration Medical Decision Making Medical Decision Making MDM Narrative: 39-year-old female presented hospital today for suicide ideation and attempt to overdose on Seroquel. Patient claimed that she took 800 mg of Seroquel in an effort to kill herself. Sitter will be provided to the patient for her safety. Patient will need to be medically clear prior to psychiatric assistance. Poison control was contacted. They recommended serial EKG to evaluate the patient's QT level and evaluate her mental state. The patient is complaining of some nausea and drowsiness. IV fluid and IV Reglan will be given to the patient at this time. We will repeat EKG. I discussed the case once more with the poison control they recommend observing the patient overnight and repeat an EKG in the morning. If the EKG does not show any signs of QT prolongation patient's could be medically clear for psychiatric evaluation. The patient CBC is unremarkable, patient's chemistry did show some hypokalemia at 3.0. We will plan to replete with p.o. potassium. Patient's QTC is borderline at 458. Salicylate level is negative. Acetaminophen level is negative. We will continue to observe the patient at this time. Patient will be signed out to night doctor pending reassessment and morning. I received sign-out from my colleague Dr. Mathias Patient's potassium is back to normal 3.7 Last EKG: Sinus rhythm, heart rate 68, no ST segment depression or elevation, no T-wave inversions, QTC 474. Patient's vitals stable. Patient is medically cleared to be seen by the care team Differential Diagnosis Differential Diagnoses: The differential diagnosis associated with the presentation includes Suicide attempt, Seroquel overdose, Tylenol level overdose. Depression Consult Healthcare Provider Management of the patient was discussed with: [employer] (Poison Control) Lab Data [facility] Lab Attestation statement: I reviewed the patient's lab results. 05/27/25 17:30 05/27/25 23:20 Labs: Lab Results 05/27/25 05/27/25 05/28/25 Range/Units 17:30 23:20 06:29 WBC 5.4 (4.8-10.8) X10*3/uL RBC 3.91 L (4.20-5.50) X10*6/uL Hgb 12.9 (12.0-16.0) g/dl Hct 35.9 L (37.0-47.0) % MCV 91.8 (80.0-98.0) fL MCH 33.0 (27.0-33.0) pg MCHC 35.9 H (31.0-35.0) g/dl RDW 13.1 (11.0-16.0) % Plt Count 267 D (160-400) X10*3/uL MPV 9.3 L (9.4-12.3) fL Immature Gran % (Auto) 0.2 (0.0-0.4) % Neut % (Auto) 59.3 (45-73) % Lymph % (Auto) 31.5 (20-40) % [place] % (Auto) 7.2 (2-11) % Eos % (Auto) 0.7 (0-4) % Baso % (Auto) 1.1 (0-2) % Lymph # (Auto) 1.7 (1.2-4.9) X10*3/uL [place] # (Auto) 0.4 (0.1-1.2) X10*3/uL Eos # (Auto) 0.0 (0.0-0.4) X10*3/uL Baso # (Auto) 0.1 (0.0-0.2) X10*3/uL Abs Immat Gran (auto) 0.01 (0.00-0.03) X10*3/uL Absolute Neuts (auto) 3.2 (2.0-8.3) x10*3/uL Absolute Nucleated RBC 0.000 (0.0-0.012) X10*3/uL Nucleated RBC % (auto) 0.0 (0.0-0.2) /100WBC Sodium 138 138 (135-145) mmol/L Potassium 3.0 L 3.7 D (3.3-5.1) mmol/L Chloride 107 107 (96-108) mmol/L Carbon Dioxide 21 L 26 (22-29) mmol/L Anion Gap 13 9 L (12-20) BUN 3 L 4 L (9-16) mg/dL Creatinine 0.63 0.73 (0.5-1.4) mg/dL Estim Creat Clear Calc 76.4 66.0 Estimated GFR > 60 > 60 Random Glucose 97 86 (60-115) mg/dL Calcium 9.0 D 9.1 (8.4-10.2) mg/dL Magnesium 1.9 (1.6-2.6) mg/dL Total Bilirubin 0.3 (0.0-1.0) mg/dL Direct Bilirubin 0.1 (0.0-0.5) mg/dL AST 17 (5-31) U/L ALT < 6 (0-31) U/L Alkaline Phosphatase 54 (39-117) U/L Total Protein 6.4 L (6.5-8.0) g/dL Albumin 4.3 (3.5-5.0) g/dL Urine Color Yellow Urine Appearance Cloudy Urine pH 7.0 (5.0-9.0) Ur Specific [place] 1.010 (1.005-1.025) Urine Protein Negative (Neg-Trace) mg/dL Urine Glucose (UA) Negative (Negative) mg/dL Urine Ketones Negative (Negative) mg/dL Urine Blood Negative (Negative) Urine Nitrite Negative (Negative) Ur Leukocyte Esterase Trace H (Negative) Urine RBC 0-2 (0-2) /HPF Urine WBC 0-5 (0-5) /HPF Ur Squamous Epith Cells >20 (0-2) /HPF Urine Bacteria 4+ (None Seen) Hyaline Casts 0-2 (0-2) /LPF Urine Test NEGATIVE (NEGATIVE) Salicylates < 5.0 L (15-30) mg/dL Urine Opiates Screen Not Detected (Not Detect) Ur Buprenorphine Scrn Not Detected (Not Detect) ng/mL Ur Oxycodone Screen Not Detected (Not Detect) ng/mL Urine Methadone Screen Not Detected (Not Detect) ng/mL Urine Fentanyl Screen Not Detected (Not Detect) Acetaminophen < 3 (<30) mcg/mL Ur Barbiturates Screen Not Detected (Not Detect) Ur Phencyclidine Scrn Not Detected (Not Detect) Ur Amphetamines Screen Not Detected (Not Detect) U Benzodiazepines Scrn Not Detected (Not Detect) Urine Cocaine Screen Not Detected (Not Detect) U Marijuana (THC) Screen Not Detected (Not Detect) Independent Interpretation I performed an independent interpretation of an: EKG Chronic Conditions Depression Critical Care Time Critical Care Time Critical Care Time: Yes Total Critical Care Time: 40 Attestation: Time is exclusive of separately billable procedures. Time includes: direct patient care, patient reassessment, coordination of patient care, interpretation of data (laboratory data, pulse oximetry, arterial blood gases and chest xrays), review of patient's medical records, medical consultation and documentation of patient care. Procedures excluded from critical care time: central intravenous line placement and electrocardiography. Discharge Plan Discharge Clinical Impression: Overdose by ingestion, Suicide attempt Patient Disposition: Admitted As Inpatient Interventions: [place]-Suicide Risk Severity Scale Last Done: 05/28/25 18:26 Admission Worksheet (ED) Last Done: 05/29/25 12:34 Discharge Date/Time: 05/29/25 12:51
[2025-05-27 18:19] LABS: Magnesium 1.9 mg/dL (1.6-2.6)
[2025-05-27] MEDS: Potassium Bicarbonate/Cit AC 25 MEQ TABLET.EFF 50 MEQ PO (18:30)
[2025-05-27 18:33] VITALS: BP 119/89; PULSE 93; RESP 14; O2SAT 97
--- NOTE | 2025-05-27 19:30 | ECG_ITS ---
Test Reason : QTC CHECK Blood Pressure : */* mmHG Vent. Rate : 84 BPM Atrial Rate : 84 BPM P-R Int : 128 ms QRS Dur : 96 ms QT Int : 388 ms P-R-T Axes : 66 31 9 degrees QTcB Int : 458 ms Artifact in tracing Normal sinus rhythm Nonspecific ST and T wave abnormality Inferior injury pattern suggests right ventricular involvement, recommend adding leads V3r and V4r to confirm Borderline ECG When compared with ECG of 27-May-2025 17:22, No significant change was found Referred By: Jaquelin Mathias Electronically Signed By: RILEY JORGE
[2025-05-27 21:23] VITALS: BP 119/89; PULSE 93; RESP 14; O2SAT 97
--- NOTE | 2025-05-27 22:27 | PC.NURSE ---
Addendum entered by Sejal Carter RN 05/28/25 01:11: [Late Entry] at or around 2230, spoke to poison control- updated RN via tiger: pt needs one more EKG & then can be medically clear for psych pod. EKG scheduled for 0600. Original Note: PT had c/o of nausea and dizziness. RN made MD aware. MD ordered a L of fluids and zofran. Poison control just called for update on pt and stated zofran isn't ideal d/t the fact it can cause prolong qt. RN to make MD aware.
[2025-05-27 23:37] LABS: Anion Gap 9 (12-20); Blood Urea Nitrogen 4 mg/dL (9-16); Calcium 9.1 mg/dL (8.4-10.2); Carbon Dioxide 26 mmol/L (22-29); Chloride 107 mmol/L (96-108); Creatinine Clr Calc Pharmacy 66.0; Estimated Glomerular Filt Rate > 60; Potassium 3.7 mmol/L (3.3-5.1); Sodium 138 mmol/L (135-145)
[2025-05-28 03:00] VITALS: BP 112/80; PULSE 60; RESP 12; TEMP 36.4; O2SAT 98
[2025-05-28 04:15] VITALS: BP 101/68; PULSE 63; RESP 14; TEMP 36.8; O2SAT 94
--- NOTE | 2025-05-28 06:00 | ECG_ITS ---
Test Reason : REPEAT Blood Pressure : */* mmHG Vent. Rate : 61 BPM Atrial Rate : 61 BPM P-R Int : 152 ms QRS Dur : 96 ms QT Int : 470 ms P-R-T Axes : 72 17 39 degrees QTcB Int : 473 ms Normal sinus rhythm Normal ECG When compared with ECG of 27-May-2025 23:02, No significant change was found Referred By: Mary Lee Electronically Signed By: RILEY JORGE
[2025-05-28 06:18] VITALS: BP 102/69; PULSE 63; RESP 16; TEMP 36.8; O2SAT 94
[2025-05-28 06:45] LABS: Appearance Urine Cloudy; Glucose Urine UA Negative (Negative); PH 7.0 (5.0-9.0); Specific Gravity - Urine 1.010 (1.005-1.025); UMIC TRIGGER UACC YES
[2025-05-28 06:58] LABS: Cannabinoid Screen Urine Not Detected (Not Detect)
--- NOTE | 2025-05-28 07:29 | PC.NURSE ---
Assumed care of patient at 0645, patient currently sitting in chair, respirations even and unlabored, no apparent distress is noted at this time. Continue plan of care for CARE team haley
--- NOTE | 2025-05-28 09:57 | PHA.MEDREC ---
Pharmacy Consult ? Medication Reconciliation Pharmacy has completed the medication reconciliation. Reviewed med rec done by nursing, matches claim hx
[2025-05-28 18:27] VITALS: BP 146/77; PULSE 71; RESP 14; TEMP 37.1; O2SAT 99
[2025-05-29 06:18] VITALS: BP 124/81; PULSE 74; RESP 15; TEMP 36.4; O2SAT 98
--- NOTE | 2025-05-29 07:52 | MHC.EDTECH ---
Spoke with lab, okay to add upreg test to recently collected urine specimen. Test amended, and per lab they will process.
[2025-05-29 07:59] LABS: UPreg QC Valid YES
[2025-05-29 13:01] VITALS: BP 122/84; PULSE 65; RESP 17; TEMP 36.6; O2SAT 98
--- NOTE | 2025-05-29 13:59 | HO.PM.IMCN ---
History of Present Illness Data of Consult Service Date: 05/29/25 Primary Care Provider: Debi Machado CNP [facility] Reason for consult: Medical management 39-year-old female with a past medical history of anorexia, osteogenesis imperfecta, Jennifer-Danlos syndrome, borderline personality disorder, neurogenic bladder, scoliosis, osteoporosis, arthritis, asthma, mood disorder, sacral nerve stimulator present, compression fracture lumbar spine, myofascial pain syndrome, benzodiazepine dependence, and anxiety and depression major depressive disorder, presented to the ED after suicide attempt with Seroquel. In the ED her CBC was unremarkable, she had some hypokalemia which was replaced, patient's QTC was initially borderline at 458. Urinalysis was negative for infection, negative tox screen, negative test. On exam she feels well, reports a history of multiple fractures due to osteogenesis imperfecta. Recently hospitalized in September requiring TPN due to eating disorder. On exam she denies any medical concerns at this time. Denies any shortness of breath, dizziness, headaches or any other concerning symptoms. Review of Systems Review of Systems: Denies any shortness of breath, chest pain, palpitations, dizziness, lightheadedness, headaches, dysuria, abdominal pain or discomfort. No vomiting or diarrhea. Denies Chills, body aches, muscle aches, fatigue. Mild nausea PMFSH Medical History (Updated 05/27/25 @ 23:52 by Jaquelin Mathias DO) Borderline personality disorder Anorexia Left wrist injury Scoliosis Swelling Osteoporosis Arthritis Asthma Mood disorder Indwelling Joseph catheter present MDD (major depressive disorder), recurrent severe, without psychosis Sacral nerve stimulator present Rectocele Juvenile osteoporosis Compression fx, lumbar spine History of wrist fracture Myofascial pain syndrome Benzodiazepine dependence Anxiety and depression Family History Mother High blood pressure Cardiovascular disease Father Prostate cancer Surgical History History of vaginal surgery History of bladder surgery H/O wrist surgery History of left knee surgery History of right knee surgery History of brain surgery History of placement of ear tubes H/O cystoscopy Social History Household Members: Family Household Members Other:: 1 Housing: House Are you a primary care transitions manager to a significant other at home: No Do you presently have visiting nurse or other home services: No Alcohol intake: former Comment: 1:1 sitter Patient Tobacco Use Status: Current everyday Tobacco user Tobacco use type: Cigarette Cigarette Packs Per Day: 1 Cigarettes Per Day: 20.0 Years Smoked: 25 Smoked in Last 30 Days: Yes e-Cigarette/Vaping Use: Currently Using Frequency of e-Cigarette/Vaping Use: on and off Patient Interested in Nicotine Replacement: Yes Patient Given Instructions on How to Stop Smoking: Yes Date Education Initiated: 05/29/25 Second Hand Smoke Exposure: No Use of substances other than those prescribed or required for medical reasons: No Substance Use Type: Opiates Have you been hit, kicked, punched, or otherwise hurt by someone within the past year? If so, by whom?: No Do you feel safe in your current relationship?: No Current Relationship Is there a partner from a previous relationship who is making you feel unsafe now?: No Are you made to feel afraid or neglected: No [facility] Practices: [employer] Advance Directives: Yes Advance Directives on File: Yes Advance Directives Date on File: 07/29/24 Do you have a plan to hurt others: No Plan Recently lost weight without trying: Yes How much weight loss: 2-13 pounds Eating poorly because of decreased appetite: Yes Nutrition screen score: 4 Nutrition Risks: Poor intake 0-25% >4 days Patient : No : No Poor oral hygiene: No service: No Current occupational status: disabled Current occupational exposures/hazards: No Sexual orientation: Straight/Heterosexual Cognitive needs: No Hearing needs: No Vision needs: No Meds Allergies Allergy/AdvReac Type Severity Reaction Status Date / Time azithromycin Allergy Itching Verified 05/27/25 16:14 levofloxacin (From Levaquin) Allergy Nightmare Verified 05/27/25 16:14 nitrofurantoin (From Allergy Itching Verified 05/27/25 16:14 Macrodantin) Active Medications: Current Medications Acetaminophen (Acetaminophen 325 Mg Tablet) 975 mg PO Q8H PRN PRN Reason: Pain (Scale Score 1-3) Acetaminophen (Acetaminophen 325 Mg Tablet) 650 mg PO Q6H PRN PRN Reason: Headache/Pain, Scale 1-10 Acetaminophen/Butalbital/Caffeine (Butalb/Acetamin/Caff 50/325/40 Tablet) 1 tab PO DAILY PRN PRN Reason: migraine Al Hydroxide/Mg Hydroxide (Magnesium Hydrox/Alum Hydrox 30 Ml Oral.Susp) 30 ml PO Q6H PRN PRN Reason: Heartburn/Nausea Hydroxyzine HCl (Hydroxyzine Hcl 50 Mg Tablet) 50 mg PO Q8H PRN PRN Reason: Anxiety Last Admin: 05/29/25 10:48 Dose: 50 mg Hydroxyzine HCl (Hydroxyzine Hcl 25 Mg Tablet) 25 mg PO Q6H PRN PRN Reason: mild anxiety [place] Carbonate ([place] Carbonate Er 450 Mg Tablet.Er) 450 mg PO BEDTIME ELMO Last Admin: 05/28/25 21:35 Dose: 450 mg Magnesium Hydroxide (Milk Of Magnesia 30 Ml Oral.Susp) 30 ml PO DAILY PRN PRN Reason: Constipation Nicotine Polacrilex (Nicotine Polacrilex 2 Mg Gum) 4 mg BUCCAL Q2H PRN PRN Reason: Nicotine Cravings Oxcarbazepine (Oxcarbazepine 300 Mg Tablet) 300 mg PO Q12H ELMO Last Admin: 05/29/25 09:21 Dose: 300 mg Quetiapine Fumarate (Quetiapine Fumarate 50 Mg Tablet) 50 mg PO BEDTIME ELMO Last Admin: 05/28/25 21:34 Dose: 50 mg Quetiapine Fumarate (Quetiapine Fumarate 50 Mg Tablet) 150 mg PO BEDTIME ELMO Last Admin: 05/29/25 03:12 Dose: 150 mg Tamsulosin HCl (Tamsulosin Hcl 0.4 Mg Capsule) 0.4 mg PO BEDTIME ELMO Last Admin: 05/28/25 21:35 Dose: 0.4 mg Trazodone HCl (Trazodone Hcl 50 Mg Tablet) 50 mg PO BEDTIME PRN PRN Reason: Insomnia Last Admin: 05/28/25 21:35 Dose: 50 mg Home Medications ?Medication ?Instructions ?Recorded ?Confirmed ?Last Taken ?Type acetaminophen 325 mg tablet 975 mg PO Q8H PRN Pain (Scale 04/22/25 05/28/25 Unknown History Score 1-3) [id number] 1 tab PO DAILY PRN migraine 05/03/25 05/28/25 Unknown History 50 mg-325 mg-40 mg tablet quetiapine 50 mg tablet 50 mg PO BEDTIME 05/03/25 05/28/25 05/01/25 History tamsulosin 0.4 mg capsule 0.4 mg PO BEDTIME 05/03/25 05/28/25 05/01/25 History trazodone 50 mg tablet 50 mg PO BEDTIME PRN insomnia 05/03/25 05/28/25 Unknown History hydroxyzine pamoate 50 mg capsule 50 mg PO Q8H PRN Anxiety 05/28/25 05/28/25 Unknown History lithium carbonate 450 mg 450 mg PO BEDTIME 05/28/25 05/28/25 Unknown History tablet,extended release oxcarbazepine 300 mg tablet 300 mg PO Q12H 05/28/25 05/28/25 Unknown History Physical Exam Vital Signs and Narrative: Vital Signs: Last Vital Signs Temp 97.8 F 05/29/25 13:01 Pulse 65 05/29/25 13:01 Resp 17 05/29/25 13:01 BP 122/84 05/29/25 13:01 Pulse Ox 98 05/29/25 13:01 O2 Del Method Room Air 05/29/25 13:01 BMI result Body Mass Index 17.4 General: Pleasant, no distress, interacting appropriately, thin appears older than stated age Head: Normacephalic, atraumatic ENT: oral mucosa moist, neck supple, no tracheal deviation Cardiovascular: regular rate, regular rhythm Respiratory: CTAB, no wheeze, rales, rhonchi Gastrointestinal: Soft, non distended, non tender, no guarding Extremities: No limb pain or swelling, no calf tenderness Neurological: Awake and alert, no facial droop noted. Ambulating at baseline Skin: Warm and dry Results Labs 05/27/25 17:30 05/27/25 23:20 Labs: Laboratory Results - last 24 hr 05/28/25 06:29 Urine Test NEGATIVE Assessment and Plan (1) Osteogenesis imperfecta: Status: Acute (2) Myofascial pain syndrome: Status: Acute Plan 39-year-old female with a past medical history of anorexia, osteogenesis imperfecta, Jennifer-Danlos syndrome, borderline personality disorder, neurogenic bladder, scoliosis, osteoporosis, arthritis, asthma, mood disorder, sacral nerve stimulator present, compression fracture lumbar spine, myofascial pain syndrome, benzodiazepine dependence, and anxiety and major depressive disorder presented to ED for suicide ideation due to recent of her mother on May 24. Admitted to inpatient psych for further care Anorexia/BPD/mood disorder/anxiety/major depressive disorder/benzodiazepine dependence/complicated by grief Treatment per psychiatric team Osteogenesis imperfecta/Jennifer-Danlos syndrome/scoliosis/osteoporosis/arthritis/myofascial pain disorder History of multiple fractures and dislocations Nutritional support Asthma Continue albuterol as needed Neurogenic bladder Continue Flomax Patient has a sacral nerve stimulator present History of seizure disorder Last reported seizure in April Continue on Trileptal Thank you for allowing me to participate in the care of this patient. Will follow as needed, please notify medical provider with any changes in condition or concerns.
--- NOTE | 2025-05-29 14:20 | PC.ADMIT ---
Nursing admission note: 39 year old female DX: Unspecified depressive disorder, unspecified anxiety disorder, PTSD, HX Bulimia. Signed conditional voluntary for admission. Presented to [facility] via EMS following overdose on 800 mg Seroquel with intent to end her life. Patient engaged easily for admission process. A+ O x4. Calm and cooperative with admission process. Depressed mood with ongoing suicidal ideation. Reports experiencing dark days . States she feels like she does not want to live. Denies plan or intent on unit. Unsure of she can engage staff if feelings intensity or if she will act on suicidal ideation. Wonders if she could have saved her mother by being available, had been hospitalized during progression of mothers illness. Mood depressed, with periods of increased anxiety. Tearful affect, good eye contact. Thoughts clear, linear and organized. Reports flashbacks of mother screaming, had been on hospice prior to 9 days ago. States she is unable to get it out of my head . Denies A/V hallucinations. Describes periods of depersonalization. Speech normal, rate, tone, prosody. Reports difficulty falling asleep. Reports poor appetite, poor intake for several days. Feels like her brothers are smothering me , as they want her to go through mothers belongings however patient feels she has not been able to grieve. Medical history includes Asthma, osteoporosis, and sacral nerve stimulator. TOX screen negative, denies current drug or alcohol use. See nursing assessment/crisis evaluation for further details.
--- NOTE | 2025-05-29 15:02 | PC.NURSE ---
Pt declined flu vaccination
--- NOTE | 2025-05-29 15:36 | P.HPPS_ITS ---
HPI Date of Service: 05/29/25 Chief Complaint: SI Sources of Information: patient interviewed, chart reviewed and crisis/core team assessment reviewed HPI Subjective Notes: Castillo Warning and Conditional Voluntary Narrative: Patient is a 39 year old female with hx of MDD, PTSD, Borderline personality d/o, who presented to ER via ambulance after intentional overdose on 800mg of Seroquel with the intent to end her life. Per crisis report, patient reports she intentionally overdosed on Seroquel with the hope of being reunited with her mother who recently . Patient reports she is struggling to cope with her grief over the loss and feels pressured by her older siblings to sort through her mother's belongings before they are given away. She also shared that she continues to grieve the of her father who in 2021. She reports poor sleep and appetite. Patient's mother resided with patient and on 05/24/2025. Patient is currently living with her older brother. History of multiple inpatient psychiatric hospitalizations. History of multiple suicide attempts via overdosing on medication. Patient reports she was recently discharged from [facility] on 05/15/2025. During admission assessment, patient presents alert and oriented x3. Calm and cooperative. Patient reports feeling anxious and depressed ; patient stated, I'm having a hard time with losing my mom. We had our differences but we reconciled. I was at [facility] and she sounded good on the phone; I went home and she 9 days later . Patient reports she feels lithium keeps her stable but has her dark days . Patient is requesting to have increase in lithium. She reports suicidal ideation with no plan. Denies HI/VH/AH. Denies any substance use. She reports having outpatient psychiatric providers through [facility] Past Psychiatric History: History of multiple inpatient psychiatric hospitalizations. Outpatient providers through [facility] History of multiple suicide attempts via overdosing on medications. History of SIB via cutting in her teens. Medical Evaluation Reviewed: Yes [facility] Medical History (Updated 05/27/25 @ 23:52 by Jaquelin Mathias DO) Borderline personality disorder Anorexia Left wrist injury Scoliosis Swelling Osteoporosis Arthritis Asthma Mood disorder Indwelling Joseph catheter present MDD (major depressive disorder), recurrent severe, without psychosis Sacral nerve stimulator present Rectocele Juvenile osteoporosis Compression fx, lumbar spine History of wrist fracture Myofascial pain syndrome Benzodiazepine dependence Anxiety and depression Surgical History History of vaginal surgery History of bladder surgery H/O wrist surgery History of left knee surgery History of right knee surgery History of brain surgery History of placement of ear tubes H/O cystoscopy Family History: Mother: Depression Social History: Lives with older brother. Single. No kids. Disability. Highest level of education completed 10th grade. Did not obtain GED. Substance History: Patient reports history of alcohol use in her 20s. Denies any other substance use. Trauma History: yes Diagnostics Vital Signs (24Hr): Vital Signs - 24 hr 05/28/25 18:27 05/29/25 06:18 05/29/25 13:01 Temperature 98.8 F 97.6 F 97.8 F Pulse Rate 71 74 65 Respiratory Rate 14 15 17 Blood Pressure 146/77 H 124/81 122/84 Pulse Oximetry 99 98 98 Oxygen Delivery Method Room Air Room Air Room Air BMI result Body Mass Index 17.4 Labs 05/27/25 17:30 05/27/25 23:20 Labs: Laboratory Results - last 48 hr 05/27/25 05/27/25 05/28/25 17:30 23:20 06:29 WBC 5.4 RBC 3.91 L Hgb 12.9 Hct 35.9 L MCV 91.8 MCH 33.0 MCHC 35.9 H RDW 13.1 Plt Count 267 D MPV 9.3 L Immature Gran % (Auto) 0.2 Neut % (Auto) 59.3 Lymph % (Auto) 31.5 Barron % (Auto) 7.2 Eos % (Auto) 0.7 Baso % (Auto) 1.1 Lymph # (Auto) 1.7 Barron # (Auto) 0.4 Eos # (Auto) 0.0 Baso # (Auto) 0.1 Abs Immat Gran (auto) 0.01 Absolute Neuts (auto) 3.2 Absolute Nucleated RBC 0.000 Nucleated RBC % (auto) 0.0 Sodium 138 138 Potassium 3.0 L 3.7 D Chloride 107 107 Carbon Dioxide 21 L 26 Anion Gap 13 9 L BUN 3 L 4 L Creatinine 0.63 0.73 Estim Creat Clear Calc 76.4 66.0 Estimated GFR > 60 > 60 Random Glucose 97 86 Calcium 9.0 D 9.1 Magnesium 1.9 Total Bilirubin 0.3 Direct Bilirubin 0.1 AST 17 ALT < 6 Alkaline Phosphatase 54 Total Protein 6.4 L Albumin 4.3 Urine Color Yellow Urine Appearance Cloudy Urine pH 7.0 Ur Specific Ewing 1.010 Urine Protein Negative Urine Glucose (UA) Negative Urine Ketones Negative Urine Blood Negative Urine Nitrite Negative Ur Leukocyte Esterase Trace H Urine RBC 0-2 Urine WBC 0-5 Ur Squamous Epith Cells >20 Urine Bacteria 4+ Hyaline Casts 0-2 Urine Test NEGATIVE Salicylates < 5.0 L Urine Opiates Screen Not Detected Ur Buprenorphine Scrn Not Detected Ur Oxycodone Screen Not Detected Urine Methadone Screen Not Detected Urine Fentanyl Screen Not Detected Acetaminophen < 3 Ur Barbiturates Screen Not Detected Ur Phencyclidine Scrn Not Detected Ur Amphetamines Screen Not Detected U Benzodiazepines Scrn Not Detected Urine Cocaine Screen Not Detected U Marijuana (THC) Screen Not Detected Meds/Allergies Meds Home Medications ?Medication ?Instructions ?Recorded ?Confirmed ?Type acetaminophen 325 mg tablet 975 mg PO Q8H PRN Pain (Sc jo ann 04/22/25 05/28/25 History Score 1-3) calemrrpol-jugljxezixhwx-bprbyoqu 1 tab PO DAILY PRN m igraine 05/03/25 05/28/25 History 50 mg-325 mg-40 mg tablet quetiapine 50 mg tablet 50 mg PO BEDTIME 05/03/25 History tamsulosin 0.4 mg capsule 0.4 mg PO BEDTIME 05/03/25 1 History trazodone 50 mg tablet 50 mg PO BEDTIME PRN insomni a 05/03/25 05/28/25 History hydroxyzine pamoate 50 mg capsule 50 mg PO Q8H PRN Anx iety 05/28/25 05/28/25 History lithium carbonate 450 mg 450 mg PO BEDTIME 05/28/25 1 History tablet,extended release oxcarbazepine 300 mg tablet 300 mg PO Q12H 05/28/25 History Allergies Allergies Allergy/AdvReac Type Severity Reaction Status Date / Time azithromycin Allergy Itching Verified 05/27/25 16:14 levofloxacin (From Levaquin) Allergy Nightmare Verified 05/27/25 16:14 nitrofurantoin (From Allergy Itching Verified 10/04/25 16:14 Macrodantin) Mental Status Exam Mental Status Exam Narrative: Pt is alert and oriented; behavior is cooperative and calm; dressed in casual attire; mood is described as depressed and anxious ; eye contact appropriate; Speech is normal rate, volume and not pressured; thought process is organized; Thought content is on tx; denies HI/VH/AH. +SI with no plan. Assessment & Plan Assessment & Plan (1) MDD (major depressive disorder), recurrent severe, without psychosis: Status: Acute Code(s): F33.2 - Major depressive disorder, recurrent severe without psychotic features (2) PTSD (post-traumatic stress disorder): Status: Acute Code(s): F43.10 - Post-traumatic stress disorder, unspecified (3) Borderline personality disorder: Status: Acute Code(s): F60.3 - Borderline personality disorder Plan Patient is a 39 year old female with hx of MDD, PTSD, Borderline personality d/o, who presented to ER via ambulance after intentional overdose on 800mg of Seroquel qith the intent to end her life. Plan: CV 15 minute safety checks Continue home medications Increase [place] ER to 600mg PO bedtime Obtain collateral encourage groups ? possible referral to [facility] Discharge planning Patient educated on: diagnosis and medication risk/benefits Reason for continued inpatient stay Substantial Risk for: harm to self and med/psych decompensation Statement Statement: I have reviewed the history and physical and performed a pertinent examination on my patient. No changes have occurred unless specified. If the History and Physical was not performed prior to admission, the Hospitalist's service will be consulted for completing the admission physical. Time Spent With Patient Time: Total time managing care of this patient today _60___ minutes.
[2025-05-29 15:37] VITALS: BMI 18.4
[2025-05-29 19:27] VITALS: BP 111/81; PULSE 77; RESP 16; TEMP 37.1; O2SAT 99
[2025-05-30 07:38] VITALS: BP 95/60; PULSE 92; RESP 20; TEMP 36.7; O2SAT 99
--- NOTE | 2025-05-30 09:28 | HO.PSYCHPN ---
Subjective Subjective Date of Service: 05/30/25 Reason For Visit: SI Subjective Notes: Conditional Voluntary Interim History: Active on unit. keeping to self. Patient continues to report feeling depressed; pt stated, part of me believes my mom is gone and another part doesn't believe it . denies any side effects from increase in [place]. Encouraged to attend groups. denies HI/VH/AH. Continues to report suicidal ideation with no plan. continue tx plan. Medication Compliance: Yes Side effects from medications: No Attending Groups: No Mental Status Exam Mental Status Exam Narrative: Pt is alert and oriented; behavior is cooperative and calm; dressed in casual attire; mood is described as depressed and anxious ; eye contact appropriate; Speech is normal rate, volume and not pressured; thought process is organized; Thought content is on tx; denies HI/VH/AH. +SI with no plan. Diagnostics Vital Signs (24Hr): Vital Signs - 24 hr 05/29/25 13:01 05/29/25 19:27 05/30/25 07:38 Temperature 97.8 F 98.7 F 98.0 F Pulse Rate 65 77 92 Respiratory Rate 17 16 20 Blood Pressure 122/84 111/81 95/60 Pulse Oximetry 98 99 99 Oxygen Delivery Method Room Air Room Air Room Air BMI result Body Mass Index 18.4 Labs 05/27/25 17:30 05/30/25 11:01 Labs: Laboratory Results - last 48 hr 05/28/25 06:29 Urine Test NEGATIVE Medications Medications Current Medications Acetaminophen (Acetaminophen 325 Mg Tablet) 975 mg PO Q8H PRN PRN Reason: Pain (Scale Score 1-3) Acetaminophen/Butalbital/Caffeine (Butalb/Acetamin/Caff 50/325/40 Tablet) 1 tab PO DAILY PRN PRN Reason: migraine Al Hydroxide/Mg Hydroxide (Magnesium Hydrox/Alum Hydrox 30 Ml Oral.Susp) 30 ml PO Q6H PRN PRN Reason: Heartburn/Nausea Hydroxyzine HCl (Hydroxyzine Hcl 50 Mg Tablet) 50 mg PO Q8H PRN PRN Reason: Anxiety Last Admin: 05/30/25 09:08 Dose: 50 mg [place] Carbonate ([place] Carbonate Er 300 Mg Tablet.Er) 600 mg PO BEDTIME ELMO Last Admin: 05/29/25 20:44 Dose: 600 mg Magnesium Hydroxide (Milk Of Magnesia 30 Ml Oral.Susp) 30 ml PO DAILY PRN PRN Reason: Constipation Nicotine Polacrilex (Nicotine Polacrilex 2 Mg Gum) 4 mg BUCCAL Q2H PRN PRN Reason: Nicotine Cravings Ondansetron HCl (Ondansetron Odt 4 Mg Tab.Rapdis) 4 mg TRANSLINGU Q8H PRN PRN Reason: Nausea and Vomiting Last Admin: 05/30/25 07:48 Dose: 4 mg Oxcarbazepine (Oxcarbazepine 300 Mg Tablet) 300 mg PO Q12H ELMO Last Admin: 05/30/25 07:48 Dose: 300 mg Quetiapine Fumarate (Quetiapine Fumarate 50 Mg Tablet) 50 mg PO BEDTIME ELMO Last Admin: 05/29/25 20:45 Dose: 50 mg Quetiapine Fumarate (Quetiapine Fumarate 50 Mg Tablet) 150 mg PO BEDTIME ELMO Last Admin: 05/29/25 20:45 Dose: 150 mg Tamsulosin HCl (Tamsulosin Hcl 0.4 Mg Capsule) 0.4 mg PO BEDTIME ELMO Last Admin: 05/29/25 20:45 Dose: 0.4 mg Trazodone HCl (Trazodone Hcl 50 Mg Tablet) 50 mg PO BEDTIME PRN PRN Reason: Insomnia Last Admin: 05/29/25 20:45 Dose: 50 mg Allergies Allergies Allergy/AdvReac Type Severity Reaction Status Date / Time azithromycin Allergy Itching Verified 05/27/25 16:14 levofloxacin (From Levaquin) Allergy Nightmare Verified 05/27/25 16:14 nitrofurantoin (From Allergy Itching Verified 05/27/25 16:14 Macrodantin) Assessment & Plan Assessment & Plan (1) MDD (major depressive disorder), recurrent severe, without psychosis: Status: Acute Code(s): F33.2 - Major depressive disorder, recurrent severe without psychotic features (2) PTSD (post-traumatic stress disorder): Status: Acute Code(s): F43.10 - Post-traumatic stress disorder, unspecified (3) Borderline personality disorder: Status: Acute Code(s): F60.3 - Borderline personality disorder Plan Patient is a 39 year old female with hx of MDD, PTSD, Borderline personality d/o, who presented to ER via ambulance after intentional overdose on 800mg of Seroquel qith the intent to end her life. Plan: CV 15 minute safety checks Continue home medications Increase [place] ER to 600mg PO bedtime Obtain collateral encourage groups ? possible referral to [facility] Discharge planning 05/30: Active on unit. keeping to self. Patient continues to report feeling depressed; pt stated, part of me believes my mom is gone and another part doesn't believe it . denies any side effects from increase in [place]. Encouraged to attend groups. denies HI/VH/AH. Continues to report suicidal ideation with no plan. continue tx plan. Patient educated on: diagnosis, medication risk/benefits and therapeutic strategies Reason for continued inpatient stay Substantial Risk for: harm to self and med/psych decompensation Time Spent With Patient Time: Total time managing care of this patient today _20___ minutes.
--- NOTE | 2025-05-30 10:40 | MHC.CLN ---
CONSULT PATIENT SEEN ON MEDICAL FLOOR DURING HOSPITAL ADMISSION 04/24/25. HX OF EATING DISORDER SINCE TEENS. DID NOT WANT NUTRITIONAL SUPPLEMENT. MAY BENEFIT FROM EATING DISORDER TREATMENT. RD AVAILABLE FOR INDIVIDUAL COUNSELING IF DESIRED BY PATIENT DURING ADM.
[2025-05-30 11:19] LABS: Hemoglobin A1C 97.0423 umol/L; Total Hemoglobin (HGBA1C) 3484.9148 umol/L
[2025-05-30 11:31] LABS: Alanine Aminotransferase < 6 U/L (0-31); Albumin Level 4.5 g/dL (3.5-5.0); Alkaline Phosphatase 54 U/L (39-117); Anion Gap 13 (12-20); Aspartate Amino Transferase 18 U/L (5-31); Blood Urea Nitrogen 7 mg/dL (9-16); Calcium 9.6 mg/dL (8.4-10.2); Carbon Dioxide 25 mmol/L (22-29); Chloride 104 mmol/L (96-108); Cholesterol 203 mg/dL (<200); Creatinine Clr Calc Pharmacy 68.9; Estimated Glomerular Filt Rate > 60; HDL Cholesterol 55 mg/dL (>40); Potassium 3.9 mmol/L (3.3-5.1); Sodium 138 mmol/L (135-145); Total Protein 6.8 g/dL (6.5-8.0); Triglycerides 125 mg/dL (<150)
[2025-05-30 20:00] VITALS: BP 128/88; PULSE 59; RESP 16; TEMP 36.6; O2SAT 98
[2025-05-31 07:59] VITALS: BP 101/64; PULSE 62; RESP 16; TEMP 36.9; O2SAT 98
--- NOTE | 2025-05-31 09:02 | P.PNPSI_ITS ---
Subjective Subjective Date of Service: 05/31/25 Reason For Visit: SI Subjective Notes: Conditional Voluntary Interim History: Active on unit. keeping to self. Patient continues to report feeling depressed; pt reports having alot of anxiety today because it's been a week since my mom passed . denies HI/VH/AH. Continues to report suicidal ideation; pt stated, I think suicide will always been on my mind. When stressful things happen it exacerbates it . Discussed possibly attending PHP when discharged from inpatient; pt reports she will consider it. continue tx plan. Medication Compliance: Yes Side effects from medications: No Attending Groups: Intermittent Mental Status Exam Mental Status Exam Narrative: Pt is alert and oriented; behavior is cooperative and calm; dressed in casual attire; mood is described as depressed and anxious ; eye contact appropriate; Speech is normal rate, volume and not pressured; thought process is organized; Thought content is on tx; denies HI/VH/AH. +SI Diagnostics Vital Signs (24Hr): Vital Signs - 24 hr 05/30/25 20:00 05/31/25 07:59 Temperature 98 F 98.5 F Pulse Rate 59 62 Respiratory Rate 16 16 Blood Pressure 128/88 101/64 Pulse Oximetry 98 98 Oxygen Delivery Method Room Air Room Air BMI result Body Mass Index 18.4 Labs 05/27/25 17:30 05/30/25 11:01 Labs: Laboratory Results - last 48 hr 05/30/25 11:01 Sodium 138 Potassium 3.9 Chloride 104 Carbon Dioxide 25 Anion Gap 13 BUN 7 L Creatinine 0.74 Estim Creat Clear Calc 68.9 Estimated GFR > 60 Random Glucose 88 Estimat Average Glucose 88 Hemoglobin A1c % 4.7 Calcium 9.6 Total Bilirubin 0.5 AST 18 ALT < 6 Alkaline Phosphatase 54 Total Protein 6.8 Albumin 4.5 Triglycerides 125 Cholesterol 203 H LDL Cholesterol, Calc 123 H HDL Cholesterol 55 Medications Medications Current Medications Acetaminophen (Acetaminophen 325 Mg Tablet) 975 mg PO Q8H PRN PRN Reason: Pain (Scale Score 1-3) Acetaminophen/Butalbital/Caffeine (Butalb/Acetamin/Caff 50/325/40 Tablet) 1 tab PO DAILY PRN PRN Reason: migraine Al Hydroxide/Mg Hydroxide (Magnesium Hydrox/Alum Hydrox 30 Ml Oral.Susp) 30 ml PO Q6H PRN PRN Reason: Heartburn/Nausea Hydroxyzine HCl (Hydroxyzine Hcl 50 Mg Tablet) 50 mg PO Q8H PRN PRN Reason: Anxiety Last Admin: 05/31/25 08:39 Dose: 50 mg [place] Carbonate ([place] Carbonate Er 300 Mg Tablet.Er) 600 mg PO BEDTIME ELMO Last Admin: 05/30/25 20:44 Dose: 600 mg Magnesium Hydroxide (Milk Of Magnesia 30 Ml Oral.Susp) 30 ml PO DAILY PRN PRN Reason: Constipation Nicotine Polacrilex (Nicotine Polacrilex 2 Mg Gum) 4 mg BUCCAL Q2H PRN PRN Reason: Nicotine Cravings Ondansetron HCl (Ondansetron Odt 4 Mg Tab.Rapdis) 4 mg TRANSLINGU Q8H PRN PRN Reason: Nausea and Vomiting Last Admin: 05/31/25 08:40 Dose: 4 mg Oxcarbazepine (Oxcarbazepine 300 Mg Tablet) 300 mg PO Q12H ELMO Last Admin: 05/31/25 08:39 Dose: 300 mg Quetiapine Fumarate (Quetiapine Fumarate 50 Mg Tablet) 50 mg PO BEDTIME ELMO Last Admin: 05/30/25 20:43 Dose: 50 mg Quetiapine Fumarate (Quetiapine Fumarate 50 Mg Tablet) 150 mg PO BEDTIME ELMO Last Admin: 05/30/25 20:43 Dose: 150 mg Tamsulosin HCl (Tamsulosin Hcl 0.4 Mg Capsule) 0.4 mg PO BEDTIME ELMO Last Admin: 05/30/25 20:44 Dose: 0.4 mg Trazodone HCl (Trazodone Hcl 50 Mg Tablet) 50 mg PO BEDTIME PRN PRN Reason: Insomnia Last Admin: 05/30/25 20:57 Dose: 50 mg Allergies Allergies Allergy/AdvReac Type Severity Reaction Status Date / Time azithromycin Allergy Itching Verified 05/27/25 16:14 levofloxacin (From Levaquin) Allergy Nightmare Verified 05/27/25 16:14 nitrofurantoin (From Allergy Itching Verified 05/27/25 16:14 Macrodantin) Assessment & Plan Assessment & Plan (1) MDD (major depressive disorder), recurrent severe, without psychosis: Status: Acute Code(s): F33.2 - Major depressive disorder, recurrent severe without psychotic features (2) PTSD (post-traumatic stress disorder): Status: Acute Code(s): F43.10 - Post-traumatic stress disorder, unspecified (3) Borderline personality disorder: Status: Acute Code(s): F60.3 - Borderline personality disorder Plan Patient is a 39 year old female with hx of MDD, PTSD, Borderline personality d/o, who presented to ER via ambulance after intentional overdose on 800mg of Seroquel qith the intent to end her life. Plan: CV 15 minute safety checks Continue home medications Increase [place] ER to 600mg PO bedtime Obtain collateral encourage groups ? possible referral to PHP Discharge planning 05/30: Active on unit. keeping to self. Patient continues to report feeling depressed; pt stated, part of me believes my mom is gone and another part doesn't believe it . denies any side effects from increase in [place]. Encouraged to attend groups. denies HI/VH/AH. Continues to report suicidal ideation with no plan. continue tx plan. 05/31: Active on unit. keeping to self. Patient continues to report feeling depressed; pt reports having alot of anxiety today because it's been a week since my mom passed . denies HI/VH/AH. Continues to report suicidal ideation; pt stated, I think suicide will always been on my mind. When stressful things happen it exacerbates it . Discussed possibly attending PHP when discharged from inpatient; pt reports she will consider it. continue tx plan. Patient educated on: diagnosis, medication risk/benefits and therapeutic strategies Reason for continued inpatient stay Substantial Risk for: harm to self and med/psych decompensation Time Spent With Patient Time: Total time managing care of this patient today _20___ minutes.
[2025-05-31 20:00] VITALS: BP 119/82; PULSE 59; RESP 16; TEMP 36.3; O2SAT 97
[2025-06-01 07:00] VITALS: BMI 18.7
[2025-06-01 07:35] VITALS: BP 102/60; PULSE 56; RESP 18; TEMP 36.3; O2SAT 95
--- NOTE | 2025-06-01 08:50 | P.PNPSI_ITS ---
Subjective Subjective Date of Service: 06/01/25 Reason For Visit: SI Subjective Notes: Conditional Voluntary Interim History: Patient continues to report feeling depressed; pt stated, it's my first birthday without my mom . Patient is considering either increasing her therapy sessions to twice or week or attending PHP. denies SI/HI/VH/AH. She reports having thoughts of self harm; pt stated, I keep trying to tell myself it's not worth it . [place] level to be drawn on 06/03/25; pt aware. Continue tx plan. Medication Compliance: Yes Side effects from medications: No Attending Groups: Intermittent Mental Status Exam Mental Status Exam Narrative: Pt is alert and oriented; behavior is cooperative and calm; dressed in casual attire; mood is described as depressed ; eye contact appropriate; Speech is normal rate, volume and not pressured; thought process is organized; Thought content is on tx; denies SI/HI/VH/AH. Diagnostics Vital Signs (24Hr): Vital Signs - 24 hr 05/31/25 20:00 06/01/25 07:35 Temperature 97.4 F 97.3 F Pulse Rate 59 56 Respiratory Rate 16 18 Blood Pressure 119/82 102/60 Pulse Oximetry 97 95 Oxygen Delivery Method Room Air Room Air BMI result Body Mass Index 18.4 Labs 05/27/25 17:30 05/30/25 11:01 Labs: Laboratory Results - last 48 hr 05/30/25 11:01 Sodium 138 Potassium 3.9 Chloride 104 Carbon Dioxide 25 Anion Gap 13 BUN 7 L Creatinine 0.74 Estim Creat Clear Calc 68.9 Estimated GFR > 60 Random Glucose 88 Estimat Average Glucose 88 Hemoglobin A1c % 4.7 Calcium 9.6 Total Bilirubin 0.5 AST 18 ALT < 6 Alkaline Phosphatase 54 Total Protein 6.8 Albumin 4.5 Triglycerides 125 Cholesterol 203 H LDL Cholesterol, Calc 123 H HDL Cholesterol 55 Medications Medications Current Medications Acetaminophen (Acetaminophen 325 Mg Tablet) 975 mg PO Q8H PRN PRN Reason: Pain (Scale Score 1-3) Acetaminophen/Butalbital/Caffeine (Butalb/Acetamin/Caff 50/325/40 Tablet) 1 tab PO DAILY PRN PRN Reason: migraine Al Hydroxide/Mg Hydroxide (Magnesium Hydrox/Alum Hydrox 30 Ml Oral.Susp) 30 ml PO Q6H PRN PRN Reason: Heartburn/Nausea Hydroxyzine HCl (Hydroxyzine Hcl 50 Mg Tablet) 50 mg PO Q8H PRN PRN Reason: Anxiety Last Admin: 05/31/25 08:39 Dose: 50 mg [place] Carbonate ([place] Carbonate Er 300 Mg Tablet.Er) 600 mg PO BEDTIME ELMO Last Admin: 05/31/25 20:31 Dose: 600 mg Magnesium Hydroxide (Milk Of Magnesia 30 Ml Oral.Susp) 30 ml PO DAILY PRN PRN Reason: Constipation Nicotine Polacrilex (Nicotine Polacrilex 2 Mg Gum) 4 mg BUCCAL Q2H PRN PRN Reason: Nicotine Cravings Ondansetron HCl (Ondansetron Odt 4 Mg Tab.Rapdis) 4 mg TRANSLINGU Q8H PRN PRN Reason: Nausea and Vomiting Last Admin: 06/01/25 08:07 Dose: 4 mg Oxcarbazepine (Oxcarbazepine 300 Mg Tablet) 300 mg PO Q12H ELMO Last Admin: 06/01/25 08:07 Dose: 300 mg Quetiapine Fumarate (Quetiapine Fumarate 50 Mg Tablet) 50 mg PO BEDTIME ELMO Last Admin: 05/31/25 20:32 Dose: 50 mg Quetiapine Fumarate (Quetiapine Fumarate 50 Mg Tablet) 150 mg PO BEDTIME ELMO Last Admin: 05/31/25 20:33 Dose: 150 mg Tamsulosin HCl (Tamsulosin Hcl 0.4 Mg Capsule) 0.4 mg PO BEDTIME ELMO Last Admin: 05/31/25 20:30 Dose: 0.4 mg Trazodone HCl (Trazodone Hcl 50 Mg Tablet) 50 mg PO BEDTIME PRN PRN Reason: Insomnia Last Admin: 05/31/25 20:31 Dose: 50 mg Allergies Allergies Allergy/AdvReac Type Severity Reaction Status Date / Time azithromycin Allergy Itching Verified 05/27/25 16:14 levofloxacin (From Levaquin) Allergy Nightmare Verified 05/27/25 16:14 nitrofurantoin (From Allergy Itching Verified 05/27/25 16:14 Macrodantin) Assessment & Plan Assessment & Plan (1) MDD (major depressive disorder), recurrent severe, without psychosis: Status: Acute Code(s): F33.2 - Major depressive disorder, recurrent severe without psychotic features (2) PTSD (post-traumatic stress disorder): Status: Acute Code(s): F43.10 - Post-traumatic stress disorder, unspecified (3) Borderline personality disorder: Status: Acute Code(s): F60.3 - Borderline personality disorder Plan Patient is a 39 year old female with hx of MDD, PTSD, Borderline personality d/o, who presented to ER via ambulance after intentional overdose on 800mg of Seroquel qith the intent to end her life. Plan: CV 15 minute safety checks Continue home medications Increase [place] ER to 600mg PO bedtime Obtain collateral encourage groups ? possible referral to PHP Discharge planning 05/30: Active on unit. keeping to self. Patient continues to report feeling depressed; pt stated, part of me believes my mom is gone and another part doesn't believe it . denies any side effects from increase in [place]. Encouraged to attend groups. denies HI/VH/AH. Continues to report suicidal ideation with no plan. continue tx plan. 05/31: Active on unit. keeping to self. Patient continues to report feeling depressed; pt reports having alot of anxiety today because it's been a week since my mom passed . denies HI/VH/AH. Continues to report suicidal ideation; pt stated, I think suicide will always been on my mind. When stressful things happen it exacerbates it . Discussed possibly attending PHP when discharged from inpatient; pt reports she will consider it. continue tx plan. 06/01: Patient continues to report feeling depressed; pt stated, it's my first birthday without my mom . Patient is considering either increasing her therapy sessions to twice or week or attending PHP. denies SI/HI/VH/AH. She reports having thoughts of self harm; pt stated, I keep trying to tell myself it's not worth it . [place] level to be drawn on 06/03/25; pt aware. Continue tx plan. Patient educated on: diagnosis, medication risk/benefits and therapeutic strategies Reason for continued inpatient stay Substantial Risk for: med/psych decompensation Time Spent With Patient Time: Total time managing care of this patient today _20___ minutes.
[2025-06-01 20:00] VITALS: BP 118/73; PULSE 73; RESP 14; TEMP 36.3; O2SAT 98
[2025-06-02 07:51] VITALS: BP 115/61; PULSE 66; RESP 20; TEMP 37.1; O2SAT 99
--- NOTE | 2025-06-02 08:35 | HO.PSYCHPN ---
Subjective Subjective Date of Service: 06/02/25 Reason For Visit: SI Subjective Notes: Conditional Voluntary Interim History: Patient continues to report feeling depressed; pt stated, I'm trying to hang in there. I constantly have thoughts of self harm but I'm trying to be positive . denies HI/VH/AH. Passive SI. Active on unit. keeping to self. [place] level to be drawn on 06/03/25; pt aware. Medication Compliance: Yes Side effects from medications: No Attending Groups: Intermittent Mental Status Exam Mental Status Exam Narrative: Pt is alert and oriented; behavior is cooperative and calm; dressed in casual attire; mood is described as depressed ; eye contact appropriate; Speech is normal rate, volume and not pressured; thought process is organized; Thought content is on tx; denies HI/VH/AH. passive SI Diagnostics Vital Signs (24Hr): Vital Signs - 24 hr 06/01/25 20:00 06/02/25 07:51 Temperature 97.3 F 98.8 F Pulse Rate 73 66 Respiratory Rate 14 20 Blood Pressure 118/73 115/61 Pulse Oximetry 98 99 Oxygen Delivery Method Room Air Room Air BMI result Body Mass Index 18.7 Labs 05/27/25 17:30 05/30/25 11:01 Medications Medications Current Medications Acetaminophen (Acetaminophen 325 Mg Tablet) 975 mg PO Q8H PRN PRN Reason: Pain (Scale Score 1-3) Acetaminophen/Butalbital/Caffeine (Butalb/Acetamin/Caff 50/325/40 Tablet) 1 tab PO DAILY PRN PRN Reason: migraine Al Hydroxide/Mg Hydroxide (Magnesium Hydrox/Alum Hydrox 30 Ml Oral.Susp) 30 ml PO Q6H PRN PRN Reason: Heartburn/Nausea Hydroxyzine HCl (Hydroxyzine Hcl 50 Mg Tablet) 50 mg PO Q8H PRN PRN Reason: Anxiety Last Admin: 06/01/25 18:28 Dose: 50 mg [place] Carbonate ([place] Carbonate Er 300 Mg Tablet.Er) 600 mg PO BEDTIME ELMO Last Admin: 06/01/25 21:03 Dose: 600 mg Magnesium Hydroxide (Milk Of Magnesia 30 Ml Oral.Susp) 30 ml PO DAILY PRN PRN Reason: Constipation Nicotine Polacrilex (Nicotine Polacrilex 2 Mg Gum) 4 mg BUCCAL Q2H PRN PRN Reason: Nicotine Cravings Ondansetron HCl (Ondansetron Odt 4 Mg Tab.Rapdis) 4 mg TRANSLINGU TID PRN PRN Reason: Nausea and Vomiting Last Admin: 06/01/25 17:12 Dose: 4 mg Oxcarbazepine (Oxcarbazepine 300 Mg Tablet) 300 mg PO Q12H ELMO Last Admin: 06/02/25 08:19 Dose: 300 mg Quetiapine Fumarate (Quetiapine Fumarate 50 Mg Tablet) 50 mg PO BEDTIME ELMO Last Admin: 06/01/25 21:05 Dose: 50 mg Quetiapine Fumarate (Quetiapine Fumarate 50 Mg Tablet) 150 mg PO BEDTIME ELMO Last Admin: 06/01/25 21:05 Dose: 150 mg Tamsulosin HCl (Tamsulosin Hcl 0.4 Mg Capsule) 0.4 mg PO BEDTIME ELMO Last Admin: 06/01/25 21:03 Dose: 0.4 mg Trazodone HCl (Trazodone Hcl 50 Mg Tablet) 50 mg PO BEDTIME PRN PRN Reason: Insomnia Last Admin: 06/01/25 21:04 Dose: 50 mg Allergies Allergies Allergy/AdvReac Type Severity Reaction Status Date / Time azithromycin Allergy Itching Verified 05/27/25 16:14 levofloxacin (From Levaquin) Allergy Nightmare Verified 05/27/25 16:14 nitrofurantoin (From Allergy Itching Verified 05/27/25 16:14 Macrodantin) Assessment & Plan Assessment & Plan (1) MDD (major depressive disorder), recurrent severe, without psychosis: Status: Acute Code(s): F33.2 - Major depressive disorder, recurrent severe without psychotic features (2) PTSD (post-traumatic stress disorder): Status: Acute Code(s): F43.10 - Post-traumatic stress disorder, unspecified (3) Borderline personality disorder: Status: Acute Code(s): F60.3 - Borderline personality disorder Plan Patient is a 39 year old female with hx of MDD, PTSD, Borderline personality d/o, who presented to ER via ambulance after intentional overdose on 800mg of Seroquel qith the intent to end her life. Plan: CV 15 minute safety checks Continue home medications Increase [place] ER to 600mg PO bedtime Obtain collateral encourage groups ? possible referral to [facility] Discharge planning 05/30: Active on unit. keeping to self. Patient continues to report feeling depressed; pt stated, part of me believes my mom is gone and another part doesn't believe it . denies any side effects from increase in [place]. Encouraged to attend groups. denies HI/VH/AH. Continues to report suicidal ideation with no plan. continue tx plan. 05/31: Active on unit. keeping to self. Patient continues to report feeling depressed; pt reports having alot of anxiety today because it's been a week since my mom passed . denies HI/VH/AH. Continues to report suicidal ideation; pt stated, I think suicide will always been on my mind. When stressful things happen it exacerbates it . Discussed possibly attending PHP when discharged from inpatient; pt reports she will consider it. continue tx plan. 06/01: Patient continues to report feeling depressed; pt stated, it's my first birthday without my mom . Patient is considering either increasing her therapy sessions to twice or week or attending PHP. denies SI/HI/VH/AH. She reports having thoughts of self harm; pt stated, I keep trying to tell myself it's not worth it . [place] level to be drawn on 06/03/25; pt aware. Continue tx plan. 06/02: Patient continues to report feeling depressed; pt stated, I'm trying to hang in there. I constantly have thoughts of self harm but I'm trying to be positive . denies HI/VH/AH. Passive SI. Active on unit. keeping to self. [place] level to be drawn on 06/03/25; pt aware. Patient educated on: diagnosis, medication risk/benefits and therapeutic strategies Reason for continued inpatient stay Substantial Risk for: med/psych decompensation Time Spent With Patient Time: Total time managing care of this patient today _20___ minutes.
[2025-06-02 20:52] VITALS: BP 116/81; PULSE 67; RESP 16; TEMP 36.8; O2SAT 97
[2025-06-03 08:00] VITALS: BP 111/69; PULSE 69; RESP 16; TEMP 36.7; O2SAT 96
[2025-06-03 09:17] LABS: Lithium 0.71 mmol/L (0.60-1.20)
[2025-06-03 09:18] LABS: Anion Gap 11 (12-20); Blood Urea Nitrogen 7 mg/dL (9-16); Carbon Dioxide 24 mmol/L (22-29); Chloride 107 mmol/L (96-108); Creatinine Clr Calc Pharmacy 70.4; Estimated Glomerular Filt Rate > 60; Potassium 4.0 mmol/L (3.3-5.1); Sodium 138 mmol/L (135-145)
[2025-06-03] MEDS: Butalb/Acetamin/Caff 50/325/40 TABLET 1 TAB PO (10:43)
--- NOTE | 2025-06-03 11:11 | HO.PSYCHPN ---
Subjective Subjective Date of Service: 06/03/25 Reason For Visit: SI Subjective Notes: Conditional Voluntary Interim History: Patient was seen and discussed in rounds today. Records and plans were reviewed. A lithium level is due to be drawn today. No results back in her chart yet. Continues to endorse depression and anxiety. Eating and sleeping adequately. No SI. Slept well with trazodone. No side effects. No changes Review of Systems Review of Systems Yes all other systems are reviewed and are negative Mental Status Exam Mental Status Exam Narrative: In today's visit she is alert, oriented and pleasant. Normal speech. Good eye contact. Affect is appropriate and varied. She continues to endorse depression. No signs of psychosis. No delusions. Cognitively intact. Judgment intact Diagnostics Vital Signs (24Hr): Vital Signs - 24 hr 06/02/25 20:52 06/03/25 08:00 Temperature 98.3 F 98.1 F Pulse Rate 67 69 Respiratory Rate 16 16 Blood Pressure 116/81 111/69 Pulse Oximetry 97 96 Oxygen Delivery Method Room Air Room Air BMI result Body Mass Index 18.7 Labs 05/27/25 17:30 06/03/25 08:21 Labs: Laboratory Results - last 48 hr 06/03/25 08:21 Sodium 138 Potassium 4.0 Chloride 107 Carbon Dioxide 24 Anion Gap 11 L BUN 7 L Creatinine 0.73 Estim Creat Clear Calc 70.4 Estimated GFR > 60 [place] 0.71 Medications Medications Current Medications Acetaminophen (Acetaminophen 325 Mg Tablet) 975 mg PO Q8H PRN PRN Reason: Pain (Scale Score 1-3) Acetaminophen/Butalbital/Caffeine (Butalb/Acetamin/Caff 50/325/40 Tablet) 1 tab PO DAILY PRN PRN Reason: migraine Last Admin: 06/03/25 10:43 Dose: 1 tab Al Hydroxide/Mg Hydroxide (Magnesium Hydrox/Alum Hydrox 30 Ml Oral.Susp) 30 ml PO Q6H PRN PRN Reason: Heartburn/Nausea Hydroxyzine HCl (Hydroxyzine Hcl 50 Mg Tablet) 50 mg PO Q8H PRN PRN Reason: Anxiety Last Admin: 06/03/25 06:44 Dose: 50 mg [place] Carbonate ([place] Carbonate Er 300 Mg Tablet.Er) 600 mg PO BEDTIME ELMO Last Admin: 06/02/25 20:58 Dose: 600 mg Magnesium Hydroxide (Milk Of Magnesia 30 Ml Oral.Susp) 30 ml PO DAILY PRN PRN Reason: Constipation Nicotine Polacrilex (Nicotine Polacrilex 2 Mg Gum) 4 mg BUCCAL Q2H PRN PRN Reason: Nicotine Cravings Ondansetron HCl (Ondansetron Odt 4 Mg Tab.Rapdis) 4 mg TRANSLINGU TID PRN PRN Reason: Nausea and Vomiting Last Admin: 06/03/25 08:26 Dose: 4 mg Oxcarbazepine (Oxcarbazepine 300 Mg Tablet) 300 mg PO Q12H ELMO Last Admin: 06/03/25 08:26 Dose: 300 mg Quetiapine Fumarate (Quetiapine Fumarate 50 Mg Tablet) 50 mg PO BEDTIME ELMO Last Admin: 06/02/25 20:57 Dose: 50 mg Quetiapine Fumarate (Quetiapine Fumarate 50 Mg Tablet) 150 mg PO BEDTIME ELMO Last Admin: 06/02/25 20:57 Dose: 150 mg Tamsulosin HCl (Tamsulosin Hcl 0.4 Mg Capsule) 0.4 mg PO BEDTIME ELMO Last Admin: 06/02/25 20:58 Dose: 0.4 mg Trazodone HCl (Trazodone Hcl 50 Mg Tablet) 50 mg PO BEDTIME PRN PRN Reason: Insomnia Last Admin: 06/02/25 20:58 Dose: 50 mg Allergies Allergies Allergy/AdvReac Type Severity Reaction Status Date / Time azithromycin Allergy Itching Verified 05/27/25 16:14 levofloxacin (From Levaquin) Allergy Nightmare Verified 05/27/25 16:14 nitrofurantoin (From Allergy Itching Verified 05/27/25 16:14 Macrodantin) Assessment & Plan Assessment & Plan (1) MDD (major depressive disorder), recurrent severe, without psychosis: Status: Acute Code(s): F33.2 - Major depressive disorder, recurrent severe without psychotic features (2) PTSD (post-traumatic stress disorder): Status: Acute Code(s): F43.10 - Post-traumatic stress disorder, unspecified (3) Borderline personality disorder: Status: Acute Code(s): F60.3 - Borderline personality disorder Plan Patient is a 39 year old female with hx of MDD, PTSD, Borderline personality d/o, who presented to ER via ambulance after intentional overdose on 800mg of Seroquel qith the intent to end her life. Plan: CV 15 minute safety checks Continue home medications Increase [place] ER to 600mg PO bedtime Obtain collateral encourage groups ? possible referral to PHP Discharge planning 05/30: Active on unit. keeping to self. Patient continues to report feeling depressed; pt stated, part of me believes my mom is gone and another part doesn't believe it . denies any side effects from increase in [place]. Encouraged to attend groups. denies HI/VH/AH. Continues to report suicidal ideation with no plan. continue tx plan. 05/31: Active on unit. keeping to self. Patient continues to report feeling depressed; pt reports having alot of anxiety today because it's been a week since my mom passed . denies HI/VH/AH. Continues to report suicidal ideation; pt stated, I think suicide will always been on my mind. When stressful things happen it exacerbates it . Discussed possibly attending PHP when discharged from inpatient; pt reports she will consider it. continue tx plan. 06/01: Patient continues to report feeling depressed; pt stated, it's my first birthday without my mom . Patient is considering either increasing her therapy sessions to twice or week or attending PHP. denies SI/HI/VH/AH. She reports having thoughts of self harm; pt stated, I keep trying to tell myself it's not worth it . [place] level to be drawn on 06/03/25; pt aware. Continue tx plan. 06/02: Patient continues to report feeling depressed; pt stated, I'm trying to hang in there. I constantly have thoughts of self harm but I'm trying to be positive . denies HI/VH/AH. Passive SI. Active on unit. keeping to self. [place] level to be drawn on 06/03/25; pt aware. 06/03: Continue current regimen and plans Reason for continued inpatient stay Substantial Risk for: med/psych decompensation Time Spent With Patient Time: Total time managing care of this patient today ____ minutes.
[2025-06-03 19:20] VITALS: BP 107/68; PULSE 59; RESP 16; TEMP 36.3; O2SAT 99
[2025-06-04 08:00] VITALS: BP 103/65; PULSE 65; RESP 16; TEMP 36.7; O2SAT 98
--- NOTE | 2025-06-04 10:48 | HO.PSYCHPN ---
Subjective Subjective Date of Service: 06/04/25 Reason For Visit: SI Subjective Notes: Conditional Voluntary Interim History: Patient was seen and discussed in rounds today. Records and plans were reviewed. She has been stable and is doing well. Her lithium level yesterday was 0.71. Questions about that discussed. She is visible and social. Eating and sleeping adequately. No SI. No changes were made Review of Systems Review of Systems Yes all other systems are reviewed and are negative Mental Status Exam Mental Status Exam Narrative: In today's visit she is alert, oriented and pleasant. Normal speech. Good eye contact. Affect is appropriate and varied. She continues to endorse depression. No signs of psychosis. No delusions. Cognitively intact. Judgment intact Diagnostics Vital Signs (24Hr): Vital Signs - 24 hr 06/03/25 19:20 06/04/25 08:00 Temperature 97.4 F 98.0 F Pulse Rate 59 65 Respiratory Rate 16 16 Blood Pressure 107/68 103/65 Pulse Oximetry 99 98 Oxygen Delivery Method Room Air Room Air BMI result Body Mass Index 18.7 Labs 05/27/25 17:30 06/03/25 08:21 Labs: Laboratory Results - last 48 hr 06/03/25 08:21 Sodium 138 Potassium 4.0 Chloride 107 Carbon Dioxide 24 Anion Gap 11 L BUN 7 L Creatinine 0.73 Estim Creat Clear Calc 70.4 Estimated GFR > 60 [place] 0.71 Medications Medications Current Medications Acetaminophen (Acetaminophen 325 Mg Tablet) 975 mg PO Q8H PRN PRN Reason: Pain (Scale Score 1-3) Acetaminophen/Butalbital/Caffeine (Butalb/Acetamin/Caff 50/325/40 Tablet) 1 tab PO DAILY PRN PRN Reason: migraine Last Admin: 06/03/25 10:43 Dose: 1 tab Al Hydroxide/Mg Hydroxide (Magnesium Hydrox/Alum Hydrox 30 Ml Oral.Susp) 30 ml PO Q6H PRN PRN Reason: Heartburn/Nausea Hydroxyzine HCl (Hydroxyzine Hcl 50 Mg Tablet) 50 mg PO Q8H PRN PRN Reason: Anxiety Last Admin: 06/04/25 09:50 Dose: 50 mg [place] Carbonate ([place] Carbonate Er 300 Mg Tablet.Er) 600 mg PO BEDTIME ELMO Last Admin: 06/03/25 20:42 Dose: 600 mg Magnesium Hydroxide (Milk Of Magnesia 30 Ml Oral.Susp) 30 ml PO DAILY PRN PRN Reason: Constipation Nicotine Polacrilex (Nicotine Polacrilex 2 Mg Gum) 4 mg BUCCAL Q2H PRN PRN Reason: Nicotine Cravings Ondansetron HCl (Ondansetron Odt 4 Mg Tab.Rapdis) 4 mg TRANSLINGU TID PRN PRN Reason: Nausea and Vomiting Last Admin: 06/04/25 08:28 Dose: 4 mg Oxcarbazepine (Oxcarbazepine 300 Mg Tablet) 300 mg PO Q12H ELMO Last Admin: 06/04/25 08:28 Dose: 300 mg Quetiapine Fumarate (Quetiapine Fumarate 50 Mg Tablet) 50 mg PO BEDTIME ELMO Last Admin: 06/03/25 20:42 Dose: 50 mg Quetiapine Fumarate (Quetiapine Fumarate 50 Mg Tablet) 150 mg PO BEDTIME ELMO Last Admin: 06/03/25 20:42 Dose: 150 mg Tamsulosin HCl (Tamsulosin Hcl 0.4 Mg Capsule) 0.4 mg PO BEDTIME ELMO Last Admin: 06/03/25 20:42 Dose: 0.4 mg Trazodone HCl (Trazodone Hcl 50 Mg Tablet) 50 mg PO BEDTIME PRN PRN Reason: Insomnia Last Admin: 06/03/25 20:42 Dose: 50 mg Allergies Allergies Allergy/AdvReac Type Severity Reaction Status Date / Time azithromycin Allergy Itching Verified 05/27/25 16:14 levofloxacin (From Levaquin) Allergy Nightmare Verified 05/27/25 16:14 nitrofurantoin (From Allergy Itching Verified 05/27/25 16:14 Macrodantin) Assessment & Plan Assessment & Plan (1) MDD (major depressive disorder), recurrent severe, without psychosis: Status: Acute Code(s): F33.2 - Major depressive disorder, recurrent severe without psychotic features (2) PTSD (post-traumatic stress disorder): Status: Acute Code(s): F43.10 - Post-traumatic stress disorder, unspecified (3) Borderline personality disorder: Status: Acute Code(s): F60.3 - Borderline personality disorder Plan Patient is a 39 year old female with hx of MDD, PTSD, Borderline personality d/o, who presented to ER via ambulance after intentional overdose on 800mg of Seroquel qith the intent to end her life. Plan: CV 15 minute safety checks Continue home medications Increase [place] ER to 600mg PO bedtime Obtain collateral encourage groups ? possible referral to PHP Discharge planning 05/30: Active on unit. keeping to self. Patient continues to report feeling depressed; pt stated, part of me believes my mom is gone and another part doesn't believe it . denies any side effects from increase in [place]. Encouraged to attend groups. denies HI/VH/AH. Continues to report suicidal ideation with no plan. continue tx plan. 05/31: Active on unit. keeping to self. Patient continues to report feeling depressed; pt reports having alot of anxiety today because it's been a week since my mom passed . denies HI/VH/AH. Continues to report suicidal ideation; pt stated, I think suicide will always been on my mind. When stressful things happen it exacerbates it . Discussed possibly attending PHP when discharged from inpatient; pt reports she will consider it. continue tx plan. 06/01: Patient continues to report feeling depressed; pt stated, it's my first birthday without my mom . Patient is considering either increasing her therapy sessions to twice or week or attending PHP. denies SI/HI/VH/AH. She reports having thoughts of self harm; pt stated, I keep trying to tell myself it's not worth it . [place] level to be drawn on 06/03/25; pt aware. Continue tx plan. 06/02: Patient continues to report feeling depressed; pt stated, I'm trying to hang in there. I constantly have thoughts of self harm but I'm trying to be positive . denies HI/VH/AH. Passive SI. Active on unit. keeping to self. [place] level to be drawn on 06/03/25; pt aware. 06/03: Continue current regimen and plans Reason for continued inpatient stay Substantial Risk for: med/psych decompensation Time Spent With Patient Time: Total time managing care of this patient today ____ minutes.
[2025-06-04 21:00] VITALS: BP 108/67; PULSE 58; RESP 18; TEMP 36.8; O2SAT 98
[2025-06-05 08:00] VITALS: BP 94/68; PULSE 77; RESP 20; TEMP 37.1; O2SAT 98
--- NOTE | 2025-06-05 08:50 | P.PNPSI_ITS ---
Subjective Subjective Date of Service: 06/05/25 Reason For Visit: SI Subjective Notes: Conditional Voluntary Interim History: Patient was seen and discussed in rounds today. Records and plans were reviewed. She wanted to talk to me about the fact that she continues to be depressed and having suicidal ideations which is ?all the time for me?. She denies any plans or being in danger on the unit. She was wondering about being also on an antidepressant and I suggested bringing that up with her doctor tomorrow. She ate 25% of her lunch and 5% of her dinner yesterday. Sleeping adequately. No changes were made today Review of Systems Review of Systems Yes all other systems are reviewed and are negative Mental Status Exam Mental Status Exam Narrative: In today's visit she is alert, oriented and pleasant. Normal speech. Good eye contact. Affect is appropriate and varied. She continues to endorse depression. No signs of psychosis. Passive suicidal ideations present. No delusions. Cognitively intact. Judgment intact Diagnostics Vital Signs (24Hr): Vital Signs - 24 hr 06/04/25 21:00 06/05/25 08:00 Temperature 98.3 F 98.7 F Pulse Rate 58 77 Respiratory Rate 18 20 Blood Pressure 108/67 94/68 Pulse Oximetry 98 98 Oxygen Delivery Method Room Air Room Air BMI result Body Mass Index 18.7 Labs 05/27/25 17:30 06/03/25 08:21 Labs: Laboratory Results - last 48 hr 06/03/25 08:21 Sodium 138 Potassium 4.0 Chloride 107 Carbon Dioxide 24 Anion Gap 11 L BUN 7 L Creatinine 0.73 Estim Creat Clear Calc 70.4 Estimated GFR > 60 [place] 0.71 Medications Medications Current Medications Acetaminophen (Acetaminophen 325 Mg Tablet) 975 mg PO Q8H PRN PRN Reason: Pain (Scale Score 1-3) Acetaminophen/Butalbital/Caffeine (Butalb/Acetamin/Caff 50/325/40 Tablet) 1 tab PO DAILY PRN PRN Reason: migraine Last Admin: 06/03/25 10:43 Dose: 1 tab Al Hydroxide/Mg Hydroxide (Magnesium Hydrox/Alum Hydrox 30 Ml Oral.Susp) 30 ml PO Q6H PRN PRN Reason: Heartburn/Nausea Hydroxyzine HCl (Hydroxyzine Hcl 50 Mg Tablet) 50 mg PO Q8H PRN PRN Reason: Anxiety Last Admin: 06/05/25 08:24 Dose: 50 mg [place] Carbonate ([place] Carbonate Er 300 Mg Tablet.Er) 600 mg PO BEDTIME ELMO Last Admin: 06/04/25 21:17 Dose: 600 mg Magnesium Hydroxide (Milk Of Magnesia 30 Ml Oral.Susp) 30 ml PO DAILY PRN PRN Reason: Constipation Nicotine Polacrilex (Nicotine Polacrilex 2 Mg Gum) 4 mg BUCCAL Q2H PRN PRN Reason: Nicotine Cravings Ondansetron HCl (Ondansetron Odt 4 Mg Tab.Rapdis) 4 mg TRANSLINGU TID PRN PRN Reason: Nausea and Vomiting Last Admin: 06/04/25 08:28 Dose: 4 mg Oxcarbazepine (Oxcarbazepine 300 Mg Tablet) 300 mg PO Q12H ELMO Last Admin: 06/05/25 08:24 Dose: 300 mg Quetiapine Fumarate (Quetiapine Fumarate 50 Mg Tablet) 50 mg PO BEDTIME ELMO Last Admin: 06/04/25 21:18 Dose: 50 mg Quetiapine Fumarate (Quetiapine Fumarate 50 Mg Tablet) 150 mg PO BEDTIME ELMO Last Admin: 06/04/25 21:18 Dose: 150 mg Tamsulosin HCl (Tamsulosin Hcl 0.4 Mg Capsule) 0.4 mg PO BEDTIME ELMO Last Admin: 06/04/25 21:18 Dose: 0.4 mg Trazodone HCl (Trazodone Hcl 50 Mg Tablet) 50 mg PO BEDTIME PRN PRN Reason: Insomnia Last Admin: 06/04/25 21:18 Dose: 50 mg Allergies Allergies Allergy/AdvReac Type Severity Reaction Status Date / Time azithromycin Allergy Itching Verified 05/27/25 16:14 levofloxacin (From Levaquin) Allergy Nightmare Verified 05/27/25 16:14 nitrofurantoin (From Allergy Itching Verified 05/27/25 16:14 Macrodantin) Assessment & Plan Assessment & Plan (1) MDD (major depressive disorder), recurrent severe, without psychosis: Status: Acute Code(s): F33.2 - Major depressive disorder, recurrent severe without psychotic features (2) PTSD (post-traumatic stress disorder): Status: Acute Code(s): F43.10 - Post-traumatic stress disorder, unspecified (3) Borderline personality disorder: Status: Acute Code(s): F60.3 - Borderline personality disorder Plan Patient is a 39 year old female with hx of MDD, PTSD, Borderline personality d/o, who presented to ER via ambulance after intentional overdose on 800mg of Seroquel qith the intent to end her life. Plan: CV 15 minute safety checks Continue home medications Increase [place] ER to 600mg PO bedtime Obtain collateral encourage groups ? possible referral to PHP Discharge planning 05/30: Active on unit. keeping to self. Patient continues to report feeling depressed; pt stated, part of me believes my mom is gone and another part doesn't believe it . denies any side effects from increase in [place]. Encouraged to attend groups. denies HI/VH/AH. Continues to report suicidal ideation with no plan. continue tx plan. 05/31: Active on unit. keeping to self. Patient continues to report feeling depressed; pt reports having alot of anxiety today because it's been a week since my mom passed . denies HI/VH/AH. Continues to report suicidal ideation; pt stated, I think suicide will always been on my mind. When stressful things happen it exacerbates it . Discussed possibly attending PHP when discharged from inpatient; pt reports she will consider it. continue tx plan. 06/01: Patient continues to report feeling depressed; pt stated, it's my first birthday without my mom . Patient is considering either increasing her therapy sessions to twice or week or attending PHP. denies SI/HI/VH/AH. She reports having thoughts of self harm; pt stated, I keep trying to tell myself it's not worth it . [place] level to be drawn on 06/03/25; pt aware. Continue tx plan. 06/02: Patient continues to report feeling depressed; pt stated, I'm trying to hang in there. I constantly have thoughts of self harm but I'm trying to be positive . denies HI/VH/AH. Passive SI. Active on unit. keeping to self. [place] level to be drawn on 06/03/25; pt aware. 06/03: Continue current regimen and plans 06/05: Continue current regimen and plans. Patient educated on: medication risk/benefits Reason for continued inpatient stay Substantial Risk for: med/psych decompensation Time Spent With Patient Time: Total time managing care of this patient today ____ minutes.
[2025-06-05 19:20] VITALS: BP 105/64; PULSE 54; RESP 16; TEMP 36.2; O2SAT 100
[2025-06-06 08:01] VITALS: BP 112/66; PULSE 70; RESP 16; TEMP 36.5; O2SAT 100
--- NOTE | 2025-06-06 15:24 | HO.PSYCHPN ---
Subjective Subjective Date of Service: 06/06/25 Reason For Visit: SI Subjective Notes: Conditional Voluntary Interim History: Active on unit. social with select peers. Patient reports feeling more okay today but still grieving my mom ; she continues to report passive thoughts of self harm; Pt stated, I don't think they will ever go away . Future oriented. Patient reports she is worried about missing her mother's services; planning for discharge at the end of the week. denies SI/HI/VH/AH. [place] level 0.71 on 06/03/25. Per nursing, slept 8 hours last night. Continue tx plan. Medication Compliance: Yes Side effects from medications: No Attending Groups: Intermittent Mental Status Exam Mental Status Exam Narrative: Pt is alert and oriented; behavior is cooperative and calm; dressed in casual attire; mood is described as okay ; eye contact appropriate; Speech is normal rate, volume and not pressured; thought process is organized, future oriented; Thought content is on tx; denies SI/HI/VH/AH. Diagnostics Vital Signs (24Hr): Vital Signs - 24 hr 06/05/25 19:20 06/06/25 08:01 Temperature 97.2 F 97.7 F Pulse Rate 54 70 Respiratory Rate 16 16 Blood Pressure 105/64 112/66 Pulse Oximetry 100 100 Oxygen Delivery Method Room Air Room Air BMI result Body Mass Index 18.7 Labs 05/27/25 17:30 06/03/25 08:21 Medications Medications Current Medications Acetaminophen (Acetaminophen 325 Mg Tablet) 975 mg PO Q8H PRN PRN Reason: Pain (Scale Score 1-3) Acetaminophen/Butalbital/Caffeine (Butalb/Acetamin/Caff 50/325/40 Tablet) 1 tab PO DAILY PRN PRN Reason: migraine Last Admin: 06/03/25 10:43 Dose: 1 tab Al Hydroxide/Mg Hydroxide (Magnesium Hydrox/Alum Hydrox 30 Ml Oral.Susp) 30 ml PO Q6H PRN PRN Reason: Heartburn/Nausea Hydroxyzine HCl (Hydroxyzine Hcl 50 Mg Tablet) 50 mg PO Q8H PRN PRN Reason: Anxiety Last Admin: 06/06/25 10:17 Dose: 50 mg [place] Carbonate ([place] Carbonate Er 300 Mg Tablet.Er) 600 mg PO BEDTIME ELMO Last Admin: 06/05/25 21:29 Dose: 600 mg Magnesium Hydroxide (Milk Of Magnesia 30 Ml Oral.Susp) 30 ml PO DAILY PRN PRN Reason: Constipation Nicotine Polacrilex (Nicotine Polacrilex 2 Mg Gum) 4 mg BUCCAL Q2H PRN PRN Reason: Nicotine Cravings Ondansetron HCl (Ondansetron Odt 4 Mg Tab.Rapdis) 4 mg TRANSLINGU TID PRN PRN Reason: Nausea and Vomiting Last Admin: 06/05/25 16:55 Dose: 4 mg Oxcarbazepine (Oxcarbazepine 300 Mg Tablet) 300 mg PO Q12H ELMO Last Admin: 06/06/25 08:23 Dose: 300 mg Quetiapine Fumarate (Quetiapine Fumarate 50 Mg Tablet) 50 mg PO BEDTIME ELMO Last Admin: 06/05/25 21:30 Dose: 50 mg Quetiapine Fumarate (Quetiapine Fumarate 50 Mg Tablet) 150 mg PO BEDTIME ELMO Last Admin: 06/05/25 21:30 Dose: 150 mg Tamsulosin HCl (Tamsulosin Hcl 0.4 Mg Capsule) 0.4 mg PO BEDTIME ELMO Last Admin: 06/05/25 21:29 Dose: 0.4 mg Trazodone HCl (Trazodone Hcl 50 Mg Tablet) 50 mg PO BEDTIME PRN PRN Reason: Insomnia Last Admin: 06/05/25 21:29 Dose: 50 mg Allergies Allergies Allergy/AdvReac Type Severity Reaction Status Date / Time azithromycin Allergy Itching Verified 05/27/25 16:14 levofloxacin (From Levaquin) Allergy Nightmare Verified 05/27/25 16:14 nitrofurantoin (From Allergy Itching Verified 05/27/25 16:14 Macrodantin) Assessment & Plan Assessment & Plan (1) MDD (major depressive disorder), recurrent severe, without psychosis: Status: Acute Code(s): F33.2 - Major depressive disorder, recurrent severe without psychotic features (2) PTSD (post-traumatic stress disorder): Status: Acute Code(s): F43.10 - Post-traumatic stress disorder, unspecified (3) Borderline personality disorder: Status: Acute Code(s): F60.3 - Borderline personality disorder Plan Patient is a 39 year old female with hx of MDD, PTSD, Borderline personality d/o, who presented to ER via ambulance after intentional overdose on 800mg of Seroquel qith the intent to end her life. Plan: CV 15 minute safety checks Continue home medications Increase [place] ER to 600mg PO bedtime Obtain collateral encourage groups ? possible referral to PHP Discharge planning 05/30: Active on unit. keeping to self. Patient continues to report feeling depressed; pt stated, part of me believes my mom is gone and another part doesn't believe it . denies any side effects from increase in [place]. Encouraged to attend groups. denies HI/VH/AH. Continues to report suicidal ideation with no plan. continue tx plan. 05/31: Active on unit. keeping to self. Patient continues to report feeling depressed; pt reports having alot of anxiety today because it's been a week since my mom passed . denies HI/VH/AH. Continues to report suicidal ideation; pt stated, I think suicide will always been on my mind. When stressful things happen it exacerbates it . Discussed possibly attending PHP when discharged from inpatient; pt reports she will consider it. continue tx plan. 06/01: Patient continues to report feeling depressed; pt stated, it's my first birthday without my mom . Patient is considering either increasing her therapy sessions to twice or week or attending PHP. denies SI/HI/VH/AH. She reports having thoughts of self harm; pt stated, I keep trying to tell myself it's not worth it . [place] level to be drawn on 06/03/25; pt aware. Continue tx plan. 06/02: Patient continues to report feeling depressed; pt stated, I'm trying to hang in there. I constantly have thoughts of self harm but I'm trying to be positive . denies HI/VH/AH. Passive SI. Active on unit. keeping to self. [place] level to be drawn on 06/03/25; pt aware. 06/03: Continue current regimen and plans 06/05: Continue current regimen and plans. 06/06: Active on unit. social with select peers. Patient reports feeling more okay today but still grieving my mom ; she continues to report passive thoughts of self harm; Pt stated, I don't think they will ever go away . Future oriented. Patient reports she is worried about missing her mother's services; planning for discharge at the end of the week. denies SI/HI/VH/AH. [place] level 0.71 on 06/03/25. Per nursing, slept 8 hours last night. Continue tx plan. Patient educated on: diagnosis, medication risk/benefits and therapeutic strategies Reason for continued inpatient stay Substantial Risk for: med/psych decompensation Time Spent With Patient Time: Total time managing care of this patient today _20___ minutes.
[2025-06-06 20:00] VITALS: BP 113/66; PULSE 53; RESP 16; TEMP 36.4; O2SAT 100
[2025-06-07 07:56] VITALS: BP 81/51; PULSE 63; RESP 18; TEMP 36.3; O2SAT 97
--- NOTE | 2025-06-07 08:37 | P.PNPSI_ITS ---
Subjective Subjective Date of Service: 06/07/25 Reason For Visit: SI Subjective Notes: Conditional Voluntary Interim History: Patient continues to report feeling okay today; pt stated, I'm trying to hang in there. I'm going to ask my brother to come pick me up on Thursday. It's nice I have my brothers and sister in law through this . Future oriented. denies HI/VH/AH. Passive SI, no plan or intent; which pt reports is chronic. Continue tx plan. Medication Compliance: Yes Side effects from medications: No Attending Groups: Yes Mental Status Exam Mental Status Exam Narrative: Pt is alert and oriented; behavior is cooperative and calm; dressed in casual attire; mood is described as okay ; eye contact appropriate; Speech is normal rate, volume and not pressured; thought process is organized, future oriented; Thought content is on tx; denies HI/VH/AH. Passive SI, no plan or intent; pt reports this is chronic. Diagnostics Vital Signs (24Hr): Vital Signs - 24 hr 06/06/25 20:00 06/07/25 07:56 Temperature 97.5 F 97.3 F Pulse Rate 53 63 Respiratory Rate 16 18 Blood Pressure 113/66 81/51 L Pulse Oximetry 100 97 Oxygen Delivery Method Room Air Room Air BMI result Body Mass Index 18.7 Labs 05/27/25 17:30 06/03/25 08:21 Medications Medications Current Medications Acetaminophen (Acetaminophen 325 Mg Tablet) 975 mg PO Q8H PRN PRN Reason: Pain (Scale Score 1-3) Acetaminophen/Butalbital/Caffeine (Butalb/Acetamin/Caff 50/325/40 Tablet) 1 tab PO DAILY PRN PRN Reason: migraine Last Admin: 06/03/25 10:43 Dose: 1 tab Al Hydroxide/Mg Hydroxide (Magnesium Hydrox/Alum Hydrox 30 Ml Oral.Susp) 30 ml PO Q6H PRN PRN Reason: Heartburn/Nausea Hydroxyzine HCl (Hydroxyzine Hcl 50 Mg Tablet) 50 mg PO Q8H PRN PRN Reason: Anxiety Last Admin: 06/06/25 20:45 Dose: 50 mg [place] Carbonate ([place] Carbonate Er 300 Mg Tablet.Er) 600 mg PO BEDTIME ELMO Last Admin: 06/06/25 20:44 Dose: 600 mg Magnesium Hydroxide (Milk Of Magnesia 30 Ml Oral.Susp) 30 ml PO DAILY PRN PRN Reason: Constipation Nicotine Polacrilex (Nicotine Polacrilex 2 Mg Gum) 4 mg BUCCAL Q2H PRN PRN Reason: Nicotine Cravings Ondansetron HCl (Ondansetron Odt 4 Mg Tab.Rapdis) 4 mg TRANSLINGU TID PRN PRN Reason: Nausea and Vomiting Last Admin: 06/06/25 18:04 Dose: 4 mg Oxcarbazepine (Oxcarbazepine 300 Mg Tablet) 300 mg PO Q12H ELMO Last Admin: 06/06/25 20:44 Dose: 300 mg Quetiapine Fumarate (Quetiapine Fumarate 50 Mg Tablet) 50 mg PO BEDTIME ELMO Last Admin: 06/06/25 20:44 Dose: 50 mg Quetiapine Fumarate (Quetiapine Fumarate 50 Mg Tablet) 150 mg PO BEDTIME ELMO Last Admin: 06/06/25 20:45 Dose: 150 mg Tamsulosin HCl (Tamsulosin Hcl 0.4 Mg Capsule) 0.4 mg PO BEDTIME ELMO Last Admin: 06/06/25 20:45 Dose: 0.4 mg Trazodone HCl (Trazodone Hcl 50 Mg Tablet) 50 mg PO BEDTIME PRN PRN Reason: Insomnia Last Admin: 06/06/25 20:44 Dose: 50 mg Allergies Allergies Allergy/AdvReac Type Severity Reaction Status Date / Time azithromycin Allergy Itching Verified 05/27/25 16:14 levofloxacin (From Levaquin) Allergy Nightmare Verified 05/27/25 16:14 nitrofurantoin (From Allergy Itching Verified 05/27/25 16:14 Macrodantin) Assessment & Plan Assessment & Plan (1) MDD (major depressive disorder), recurrent severe, without psychosis: Status: Acute Code(s): F33.2 - Major depressive disorder, recurrent severe without psychotic features (2) PTSD (post-traumatic stress disorder): Status: Acute Code(s): F43.10 - Post-traumatic stress disorder, unspecified (3) Borderline personality disorder: Status: Acute Code(s): F60.3 - Borderline personality disorder Plan Patient is a 39 year old female with hx of MDD, PTSD, Borderline personality d/o, who presented to ER via ambulance after intentional overdose on 800mg of Seroquel qith the intent to end her life. Plan: CV 15 minute safety checks Continue home medications Increase [place] ER to 600mg PO bedtime Obtain collateral encourage groups ? possible referral to PHP Discharge planning 05/30: Active on unit. keeping to self. Patient continues to report feeling depressed; pt stated, part of me believes my mom is gone and another part doesn't believe it . denies any side effects from increase in [place]. Encouraged to attend groups. denies HI/VH/AH. Continues to report suicidal ideation with no plan. continue tx plan. 05/31: Active on unit. keeping to self. Patient continues to report feeling depressed; pt reports having alot of anxiety today because it's been a week since my mom passed . denies HI/VH/AH. Continues to report suicidal ideation; pt stated, I think suicide will always been on my mind. When stressful things happen it exacerbates it . Discussed possibly attending PHP when discharged from inpatient; pt reports she will consider it. continue tx plan. 06/01: Patient continues to report feeling depressed; pt stated, it's my first birthday without my mom . Patient is considering either increasing her therapy sessions to twice or week or attending PHP. denies SI/HI/VH/AH. She reports having thoughts of self harm; pt stated, I keep trying to tell myself it's not worth it . [place] level to be drawn on 06/03/25; pt aware. Continue tx plan. 06/02: Patient continues to report feeling depressed; pt stated, I'm trying to hang in there. I constantly have thoughts of self harm but I'm trying to be positive . denies HI/VH/AH. Passive SI. Active on unit. keeping to self. [place] level to be drawn on 06/03/25; pt aware. 06/03: Continue current regimen and plans 06/05: Continue current regimen and plans. 06/06: Active on unit. social with select peers. Patient reports feeling more okay today but still grieving my mom ; she continues to report passive thoughts of self harm; Pt stated, I don't think they will ever go away . Future oriented. Patient reports she is worried about missing her mother's services; planning for discharge at the end of the week. denies SI/HI/VH/AH. [place] level 0.71 on 06/03/25. Per nursing, slept 8 hours last night. Continue tx plan. 06/07: Patient continues to report feeling okay today; pt stated, I'm trying to hang in there. I'm going to ask my brother to come pick me up on Thursday. It's nice I have my brothers and sister in law through this . Future oriented. denies HI/VH/AH. Passive SI, no plan or intent; which pt reports is chronic. Continue tx plan. Patient educated on: diagnosis, medication risk/benefits and therapeutic strategies Reason for continued inpatient stay Substantial Risk for: med/psych decompensation Time Spent With Patient Time: Total time managing care of this patient today __20__ minutes.
[2025-06-07 20:00] VITALS: BP 112/64; PULSE 61; RESP 16; TEMP 36.7; O2SAT 100
[2025-06-08 07:00] VITALS: BMI 18.8
[2025-06-08 07:54] VITALS: BP 104/63; PULSE 56; RESP 14; TEMP 36.4; O2SAT 98
--- NOTE | 2025-06-08 09:52 | P.PNPSI_ITS ---
Subjective Subjective Date of Service: 06/08/25 Reason For Visit: SI Subjective Notes: Conditional Voluntary Interim History: Active on unit. social with peers. Patient continues to report feeling okay today; denies SI/HI/VH/AH. Patient reports she feels ready for discharge. Pt reports she plans on following up with her outpatient providers. Per foster care social worker, pt has intake with PHP at [facility] next week. Medication Compliance: Yes Side effects from medications: No Attending Groups: Yes Mental Status Exam Mental Status Exam Narrative: Pt is alert and oriented; behavior is cooperative and calm; dressed in casual attire; mood is described as okay ; eye contact appropriate; Speech is normal rate, volume and not pressured; thought process is organized; Thought content is on discharge; denies SI/HI/VH/AH. Diagnostics Vital Signs (24Hr): Vital Signs - 24 hr 06/07/25 20:00 06/08/25 07:54 Temperature 98.0 F 97.5 F Pulse Rate 61 56 Respiratory Rate 16 14 Blood Pressure 112/64 104/63 Pulse Oximetry 100 98 Oxygen Delivery Method Room Air Room Air BMI result Body Mass Index 18.8 Labs 05/27/25 17:30 06/03/25 08:21 Medications Medications Current Medications Acetaminophen (Acetaminophen 325 Mg Tablet) 975 mg PO Q8H PRN PRN Reason: Pain (Scale Score 1-3) Acetaminophen/Butalbital/Caffeine (Butalb/Acetamin/Caff 50/325/40 Tablet) 1 tab PO DAILY PRN PRN Reason: migraine Last Admin: 06/03/25 10:43 Dose: 1 tab Al Hydroxide/Mg Hydroxide (Magnesium Hydrox/Alum Hydrox 30 Ml Oral.Susp) 30 ml PO Q6H PRN PRN Reason: Heartburn/Nausea Hydroxyzine HCl (Hydroxyzine Hcl 50 Mg Tablet) 50 mg PO Q8H PRN PRN Reason: Anxiety Last Admin: 06/08/25 08:13 Dose: 50 mg Laurium Carbonate (Laurium Carbonate Er 300 Mg Tablet.Er) 600 mg PO BEDTIME ELOM Last Admin: 06/07/25 21:23 Dose: 600 mg Magnesium Hydroxide (Milk Of Magnesia 30 Ml Oral.Susp) 30 ml PO DAILY PRN PRN Reason: Constipation Nicotine Polacrilex (Nicotine Polacrilex 2 Mg Gum) 4 mg BUCCAL Q2H PRN PRN Reason: Nicotine Cravings Ondansetron HCl (Ondansetron Odt 4 Mg Tab.Rapdis) 4 mg TRANSLINGU TID PRN PRN Reason: Nausea and Vomiting Last Admin: 06/07/25 17:04 Dose: 4 mg Oxcarbazepine (Oxcarbazepine 300 Mg Tablet) 300 mg PO Q12H ELMO Last Admin: 06/08/25 08:11 Dose: 300 mg Quetiapine Fumarate (Quetiapine Fumarate 50 Mg Tablet) 50 mg PO BEDTIME ELMO Last Admin: 06/07/25 21:25 Dose: 50 mg Quetiapine Fumarate (Quetiapine Fumarate 50 Mg Tablet) 150 mg PO BEDTIME ELMO Last Admin: 06/07/25 21:25 Dose: 150 mg Tamsulosin HCl (Tamsulosin Hcl 0.4 Mg Capsule) 0.4 mg PO BEDTIME ELMO Last Admin: 06/07/25 21:24 Dose: 0.4 mg Trazodone HCl (Trazodone Hcl 50 Mg Tablet) 50 mg PO BEDTIME PRN PRN Reason: Insomnia Last Admin: 06/07/25 21:24 Dose: 50 mg Allergies Allergies Allergy/AdvReac Type Severity Reaction Status Date / Time azithromycin Allergy Itching Verified 05/27/25 16:14 levofloxacin (From Levaquin) Allergy Nightmare Verified 05/27/25 16:14 nitrofurantoin (From Allergy Itching Verified 05/27/25 16:14 Macrodantin) Assessment & Plan Assessment & Plan (1) MDD (major depressive disorder), recurrent severe, without psychosis: Status: Acute Code(s): F33.2 - Major depressive disorder, recurrent severe without psychotic features (2) PTSD (post-traumatic stress disorder): Status: Acute Code(s): F43.10 - Post-traumatic stress disorder, unspecified (3) Borderline personality disorder: Status: Acute Code(s): F60.3 - Borderline personality disorder Plan Patient is a 39 year old female with hx of MDD, PTSD, Borderline personality d/o, who presented to ER via ambulance after intentional overdose on 800mg of Seroquel qith the intent to end her life. Plan: CV 15 minute safety checks Continue home medications Increase Laurium ER to 600mg PO bedtime Obtain collateral encourage groups ? possible referral to [facility] Discharge planning 05/30: Active on unit. keeping to self. Patient continues to report feeling depressed; pt stated, part of me believes my mom is gone and another part doesn't believe it . denies any side effects from increase in Laurium. Encouraged to attend groups. denies HI/VH/AH. Continues to report suicidal ideation with no plan. continue tx plan. 05/31: Active on unit. keeping to self. Patient continues to report feeling depressed; pt reports having alot of anxiety today because it's been a week since my mom passed . denies HI/VH/AH. Continues to report suicidal ideation; pt stated, I think suicide will always been on my mind. When stressful things happen it exacerbates it . Discussed possibly attending PHP when discharged from inpatient; pt reports she will consider it. continue tx plan. 06/01: Patient continues to report feeling depressed; pt stated, it's my first birthday without my mom . Patient is considering either increasing her therapy sessions to twice or week or attending PHP. denies SI/HI/VH/AH. She reports having thoughts of self harm; pt stated, I keep trying to tell myself it's not worth it . Laurium level to be drawn on 06/03/25; pt aware. Continue tx plan. 06/02: Patient continues to report feeling depressed; pt stated, I'm trying to hang in there. I constantly have thoughts of self harm but I'm trying to be positive . denies HI/VH/AH. Passive SI. Active on unit. keeping to self. Laurium level to be drawn on 06/03/25; pt aware. 06/03: Continue current regimen and plans 06/05: Continue current regimen and plans. 06/06: Active on unit. social with select peers. Patient reports feeling more okay today but still grieving my mom ; she continues to report passive thoughts of self harm; Pt stated, I don't think they will ever go away . Future oriented. Patient reports she is worried about missing her mother's services; planning for discharge at the end of the week. denies SI/HI/VH/AH. Laurium level 0.71 on 06/03/25. Per nursing, slept 8 hours last night. Continue tx plan. 06/07: Patient continues to report feeling okay today; pt stated, I'm trying to hang in there. I'm going to ask my brother to come pick me up on Thursday. It's nice I have my brothers and sister in law through this . Future oriented. denies HI/VH/AH. Passive SI, no plan or intent; which pt reports is chronic. Continue tx plan. 06/08: Active on unit. social with peers. Patient continues to report feeling okay today; denies SI/HI/VH/AH. Patient reports she feels ready for discharge. Pt reports she plans on following up with her outpatient providers. Per foster care social worker, pt has intake with [facility] at [facility] next week. Patient educated on: diagnosis and medication risk/benefits Reason for continued inpatient stay Substantial Risk for: stable for discharge Time Spent With Patient Time: Total time managing care of this patient today _20___ minutes.
[2025-06-08] MEDS: Butalb/Acetamin/Caff 50/325/40 TABLET 1 TAB PO (17:37)
[2025-06-08 20:00] VITALS: BP 104/64; PULSE 58; RESP 14; TEMP 36.2; O2SAT 99
[2025-06-09 08:00] VITALS: BP 98/67; PULSE 64; RESP 15; TEMP 36.9; O2SAT 98
--- NOTE | 2025-06-09 08:31 | HO.PM.IMCN ---
History of Present Illness Data of Consult Service Date: 06/09/25 Primary Care Provider: Debi Machado CNP [facility] Reason for consult: Medical management 39-year-old female with a past medical history of anorexia, osteogenesis imperfecta, Jennifer-Danlos syndrome, borderline personality disorder, neurogenic bladder, scoliosis, osteoporosis, arthritis, asthma, mood disorder, sacral nerve stimulator present, compression fracture lumbar spine, myofascial pain syndrome, benzodiazepine dependence, and anxiety and depression major depressive disorder, presented to the ED after suicide attempt with Seroquel. In the ED her CBC was unremarkable, she had some hypokalemia which was replaced, patient's QTC was initially borderline at 458. Urinalysis was negative for infection, negative tox screen, negative test. On exam she feels well, reports a history of multiple fractures due to osteogenesis imperfecta. Recently hospitalized in September requiring TPN due to eating disorder. On exam she denies any medical concerns at this time. Denies any shortness of breath, dizziness, headaches or any other concerning symptoms. [facility] Medical History (Updated 05/27/25 @ 23:52 by Jaquelin Mathias DO) Borderline personality disorder Anorexia Left wrist injury Scoliosis Swelling Osteoporosis Arthritis Asthma Mood disorder Indwelling Joseph catheter present MDD (major depressive disorder), recurrent severe, without psychosis Sacral nerve stimulator present Rectocele Juvenile osteoporosis Compression fx, lumbar spine History of wrist fracture Myofascial pain syndrome Benzodiazepine dependence Anxiety and depression Family History Mother High blood pressure Cardiovascular disease Father Prostate cancer Surgical History History of vaginal surgery History of bladder surgery H/O wrist surgery History of left knee surgery History of right knee surgery History of brain surgery History of placement of ear tubes H/O cystoscopy Social History Household Members: Family Household Members Other:: 1 Housing: House Are you a primary director medicare sales to a significant other at home: No Do you presently have visiting nurse or other home services: No Alcohol intake: former Comment: 1:1 sitter Patient Tobacco Use Status: Current everyday Tobacco user Tobacco use type: Cigarette Cigarette Packs Per Day: 1 Cigarettes Per Day: 20.0 Years Smoked: 25 e-Cigarette/Vaping Use: Currently Using Second Hand Smoke Exposure: No Substance Use Type: Opiates Advance Directives Date on File: 07/29/24 service: No Current occupational status: disabled Current occupational exposures/hazards: No Sexual orientation: Straight/Heterosexual Cognitive needs: No Hearing needs: No Vision needs: No Meds Allergies Allergy/AdvReac Type Severity Reaction Status Date / Time azithromycin Allergy Itching Verified 05/27/25 16:14 levofloxacin (From Levaquin) Allergy Nightmare Verified 05/27/25 16:14 nitrofurantoin (From Allergy Itching Verified 05/27/25 16:14 Macrodantin) Active Medications: Current Medications Acetaminophen (Acetaminophen 325 Mg Tablet) 975 mg PO Q8H PRN PRN Reason: Pain (Scale Score 1-3) Acetaminophen/Butalbital/Caffeine (Butalb/Acetamin/Caff 50/325/40 Tablet) 1 tab PO DAILY PRN PRN Reason: migraine Last Admin: 06/08/25 17:37 Dose: 1 tab Al Hydroxide/Mg Hydroxide (Magnesium Hydrox/Alum Hydrox 30 Ml Oral.Susp) 30 ml PO Q6H PRN PRN Reason: Heartburn/Nausea Hydroxyzine HCl (Hydroxyzine Hcl 50 Mg Tablet) 50 mg PO Q8H PRN PRN Reason: Anxiety Last Admin: 06/08/25 17:37 Dose: 50 mg [place] Carbonate ([place] Carbonate Er 300 Mg Tablet.Er) 600 mg PO BEDTIME ELMO Last Admin: 06/08/25 21:07 Dose: 600 mg Magnesium Hydroxide (Milk Of Magnesia 30 Ml Oral.Susp) 30 ml PO DAILY PRN PRN Reason: Constipation Nicotine Polacrilex (Nicotine Polacrilex 2 Mg Gum) 4 mg BUCCAL Q2H PRN PRN Reason: Nicotine Cravings Ondansetron HCl (Ondansetron Odt 4 Mg Tab.Rapdis) 4 mg TRANSLINGU TID PRN PRN Reason: Nausea and Vomiting Last Admin: 06/07/25 17:04 Dose: 4 mg Oxcarbazepine (Oxcarbazepine 300 Mg Tablet) 300 mg PO Q12H ELMO Last Admin: 06/08/25 21:07 Dose: 300 mg Quetiapine Fumarate (Quetiapine Fumarate 50 Mg Tablet) 50 mg PO BEDTIME ELMO Last Admin: 06/08/25 21:06 Dose: 50 mg Quetiapine Fumarate (Quetiapine Fumarate 50 Mg Tablet) 150 mg PO BEDTIME ELMO Last Admin: 06/08/25 21:06 Dose: 150 mg Tamsulosin HCl (Tamsulosin Hcl 0.4 Mg Capsule) 0.4 mg PO BEDTIME ELMO Last Admin: 06/08/25 21:06 Dose: 0.4 mg Trazodone HCl (Trazodone Hcl 50 Mg Tablet) 50 mg PO BEDTIME PRN PRN Reason: Insomnia Last Admin: 06/08/25 21:05 Dose: 50 mg Home Medications ?Medication ?Instructions ?Recorded ?Confirmed ?Last Taken ?Type acetaminophen 325 mg tablet 975 mg PO Q8H PRN Pain (Scale 04/22/25 05/28/25 Unknown History Score 1-3) ofbubcftwt-nisdxkpuadmth-ocrncqbq 1 tab PO DAILY PRN migraine 05/03/25 05/28/25 Unknown History 50 mg-325 mg-40 mg tablet quetiapine 50 mg tablet 50 mg PO BEDTIME 05/03/25 05/28/25 05/01/25 History tamsulosin 0.4 mg capsule 0.4 mg PO BEDTIME 05/03/25 05/28/25 05/01/25 History trazodone 50 mg tablet 50 mg PO BEDTIME PRN insomnia 05/03/25 05/28/25 Unknown History hydroxyzine pamoate 50 mg capsule 50 mg PO Q8H PRN Anxiety 05/28/25 05/28/25 Unknown History oxcarbazepine 300 mg tablet 300 mg PO Q12H 05/28/25 05/28/25 Unknown History Physical Exam Vital Signs and Narrative: Vital Signs: Last Vital Signs Temp 97.2 F 06/08/25 20:00 Pulse 58 06/08/25 20:00 Resp 14 06/08/25 20:00 BP 104/64 06/08/25 20:00 Pulse Ox 99 06/08/25 20:00 O2 Del Method Room Air 06/08/25 20:00 BMI result Body Mass Index 18.8 Results Labs 05/27/25 17:30 06/03/25 08:21
--- NOTE | 2025-06-09 08:52 | P.DS_ITS ---
DS: Providers Provider Date of Service: 06/09/25 Date of admission: 05/29/25 11:40 Date of discharge: 06/09/25 Primary care physician: Debi Machado CNP Admitting clinician: Bobbi Gil Attending physician on admission: Jose E Whittaker Attending physician on discharge: Jose E Whittaker Discharging clinician: Bobbi Gil DS: Diagnosis Discharge Diagnosis (1) MDD (major depressive disorder), recurrent severe, without psychosis: Status: Acute (2) PTSD (post-traumatic stress disorder): Status: Acute (3) Borderline personality disorder: Status: Acute DS: Medications Discharge Medications Home Medications: Home Medications ?Medication ?Instructions ?Recorded ?Confirmed acetaminophen 325 mg tablet 975 mg PO Q8H PRN Pain (Sc jo ann 04/22/25 05/28/25 Score 1-3) lwtnbgumem-lzztobxjvgphk-rskmrsau 1 tab PO DAILY PRN m igraine 05/03/25 05/28/25 50 mg-325 mg-40 mg tablet quetiapine 50 mg tablet 50 mg PO BEDTIME 05/03/25 tamsulosin 0.4 mg capsule 0.4 mg PO BEDTIME 05/03/25 1 trazodone 50 mg tablet 50 mg PO BEDTIME PRN insomni a 05/03/25 05/28/25 hydroxyzine pamoate 50 mg capsule 50 mg PO Q8H PRN Anx iety 05/28/25 05/28/25 oxcarbazepine 300 mg tablet 300 mg PO Q12H 05/28/25 Previous Rx's ?Medication ?Instructions ?Recorded quetiapine 150 mg tablet 150 mg PO BEDTIME 30 days #3 0 tabs 05/02/25 lithium carbonate 300 mg 600 mg (2 x 300 mg) PO BEDTI ME 7 06/08/25 tablet,extended release days #14 tabs Mental Status Exam Mental Status Exam Narrative: Pt is alert and oriented; behavior is cooperative and calm; dressed in casual attire; mood is described as okay ; eye contact appropriate; Speech is normal rate, volume and not pressured; thought process is organized; Thought content is on discharge; denies SI/HI/VH/AH. Data Data Completed and Pending Completed studies during hospitalization [Text1]: 06/03/25 08:21 Sodium 138 Potassium 4.0 Chloride 107 Carbon Dioxide 24 Anion Gap 11 L BUN 7 L Creatinine 0.73 Estim Creat Clear Calc 70.4 Estimated GFR > 60 [place] 0.71 DS: Summary Hospital Course Hospital Course: Patient is a 39 year old female with hx of MDD, PTSD, Borderline personality d/o, who presented to ER via ambulance after intentional overdose on 800mg of Seroquel with the intent to end her life. Per crisis report, patient reports she intentionally overdosed on Seroquel with the hope of being reunited with her mother who recently . Patient reports she is struggling to cope with her grief over the loss and feels pressured by her older siblings to sort through her mother's belongings before they are given away. She also shared that she continues to grieve the of her father who in 2021. She reports poor sleep and appetite. Patient's mother resided with patient and on 05/24/2025. Patient is currently living with her older brother. History of multiple inpatient psychiatric hospitalizations. History of multiple suicide attempts via overdosing on medication. Patient reports she was recently discharged from [facility] on 05/15/2025. During admission assessment, patient presents alert and oriented x3. Calm and cooperative. Patient reports feeling anxious and depressed ; patient stated, I'm having a hard time with losing my mom. We had our differences but we reconciled. I was at [facility] and she sounded good on the phone; I went home and she 9 days later . Patient reports she feels lithium keeps her stable but has her dark days . Patient is requesting to have increase in lithium. She reports suicidal ideation with no plan. Denies HI/VH/AH. Denies any substance use. She reports having outpatient psychiatric providers through [facility]. Plan: CV 15 minute safety checks Continue home medications Increase [place] ER to 600mg PO bedtime Obtain collateral encourage groups ? possible referral to [facility] Discharge planning Active on unit. keeping to self. Patient continues to report feeling depressed; pt stated, part of me believes my mom is gone and another part doesn't believe it . denies any side effects from increase in [place]. Encouraged to attend groups. denies HI/VH/AH. Continues to report suicidal ideation with no plan. continue tx plan. Active on unit. keeping to self. Patient continues to report feeling depressed; pt reports having alot of anxiety today because it's been a week since my mom passed . denies HI/VH/AH. Continues to report suicidal ideation; pt stated, I think suicide will always been on my mind. When stressful things happen it exacerbates it . Discussed possibly attending PHP when discharged from inpatient; pt reports she will consider it. continue tx plan. Patient continues to report feeling depressed; pt stated, it's my first birthday without my mom . Patient is considering either increasing her therapy sessions to twice or week or attending PHP. denies SI/HI/VH/AH. She reports having thoughts of self harm; pt stated, I keep trying to tell myself it's not worth it . [place] level to be drawn on 06/03/25; pt aware. Continue tx plan. Patient continues to report feeling depressed; pt stated, I'm trying to hang in there. I constantly have thoughts of self harm but I'm trying to be positive . denies HI/VH/AH. Passive SI. Active on unit. keeping to self. [place] level to be drawn on 06/03/25; pt aware. Active on unit. social with select peers. Patient reports feeling more okay today but still grieving my mom ; she continues to report passive thoughts of self harm; Pt stated, I don't think they will ever go away . Future oriented. Patient reports she is worried about missing her mother's services; planning for discharge at the end of the week. denies SI/HI/VH/AH. [place] level 0.71 on 06/03/25. Per nursing, slept 8 hours last night. Continue tx plan. Patient continues to report feeling okay today; pt stated, I'm trying to hang in there. I'm going to ask my brother to come pick me up on Thursday. It's nice I have my brothers and sister in law through this . Future oriented. denies HI/VH/AH. Passive SI, no plan or intent; which pt reports is chronic. Continue tx plan. Active on unit. social with peers. Patient continues to report feeling okay today; denies SI/HI/VH/AH. Patient reports she feels ready for discharge. Pt reports she plans on following up with her outpatient providers. Per mental health social worker, pt has intake with PHP at [facility] next week. Status at Discharge Cognitive/behavioral status at discharge: Patient has insight and demonstrates good judgment in terms of wanting to pursue treatment. Patient has a safety plan that includes presenting to the closest ER or calling 911 if feeling unsafe. Functional status at discharge: independent ambulation Overall status at discharge: patient is back to baseline Time Spent with Patient Time attestation: Total time managing care of this patient today _20___ minutes. Time spent: Less than 30 minutes Discharge Plan Discharge Anticipated Discharge Date/Time: 06/09/25 10:00 Patient Disposition: Home, Self-Care Discharge Diagnosis: MDD, PTSD, Borderline personality d/o Referrals: Partial Hospitalization Program (PHP) [Other] - 06/14/25 8:00 am Referral Note: This is your intake appointment You will start the program the following day. Therapy & Psychiatry [Other] - 1 Week Referral Note: *Please follow up with your therapist through [facility]. Also, please have your therapist help to reschedule an appointment with a medication prescriber at [facility] as well. PT1 [Other] - 1 Week Referral Note: *Please call [employer] at ([phone]) to schedule your rides for the partial program. Your request number is #[id number]. Debi Machado CNP [Primary Care Provider, Internal Medicine] - 1 Week Referral Note: 06-07-25 Your PCP has been notified of your upcoming discharge and will be in contact with the date and time of the follow up appt. Discharge Medications: New lithium carbonate 300 mg Tablet Extended Release 600 mg PO BEDTIME 7 Days Qty: 14 2RF Continued acetaminophen 325 mg tablet 975 mg PO Q8H PRN (Reason: Pain (Scale Score 1-3)) quetiapine 50 mg tablet 50 mg PO BEDTIME Rx Instructions: Taken with 150mg for TDD of 200mg at bedtime. trazodone 50 mg tablet 50 mg PO BEDTIME PRN (Reason: insomnia) gpagmjhpiv-oesikxythplba-gavw 50-325-40 mg tablet 1 tab PO DAILY PRN (Reason: migraine) tamsulosin 0.4 mg capsule 0.4 mg PO BEDTIME quetiapine 150 mg tablet 150 mg PO BEDTIME 30 Days Qty: 30 0RF Rx Instructions: Taken with 50mg for TDD of 200mg at bedtime. hydroxyzine pamoate 50 mg capsule 50 mg PO Q8H PRN (Reason: Anxiety) oxcarbazepine 300 mg tablet 300 mg PO Q12H Discontinued lithium carbonate 450 mg tablet extended release 450 mg PO BEDTIME Discharge Orders: Discharge Order (Routine); Ordered 06/09/25 Ordered By: Bobbi Gil Diet: Regular diet Activity on Discharge: As tolerated Stand Alone Forms: Patient Portal Discharge page, Community Support Print Language: Maltese Care Plan Goals: Maintain mood and safe behaviors Take medications as prescribed Practice coping skills Continue with outpatient providers and reach out to them as needed Health Concerns: Mood stability and behaviors Plan of Treatment: Follow up with your PCP, psychiatric provider and other outpatient providers regarding above concerns Take medications as prescribed Assessment: Patient has insight and demonstrates good judgment in terms of wanting to pursue treatment. Patient has a safety plan that includes presenting to the closest ER or calling 911 if feeling unsafe.
== END 2025-06-09 11:00 | disposition home or self-care (01) | DRG 885 ==
LOC: HO.ED 05-28 07:05 → HO.PADLT16 05-29 11:46
PROVIDERS: Emergency Medicine; Student in an Organized Health Care Education/Training Program; Admitting Provider Registered Nurse; Emergency Provider Emergency Medicine; PCP Nurse Practitioner Family; Responsible Provider Registered Nurse; Visit Provider Psychiatry & Neurology Psychiatry
DX: F33.2 Major depressive disorder, recurrent severe without psychotic features (principal); Q78.0 Osteogenesis imperfecta; R45.851 Suicidal ideations; F43.10 Post-traumatic stress disorder, unspecified; F60.3 Borderline personality disorder; N31.9 Neuromuscular dysfunction of bladder, unspecified; T43.592A Poisoning by other antipsychotics and neuroleptics, intentional self-harm, initial encounter; G40.909 Epilepsy, unspecified, not intractable, without status epilepticus; Z63.4 Disappearance and death of family member; F17.210 Nicotine dependence, cigarettes, uncomplicated; Z71.6 Tobacco abuse counseling; Z79.899 Other long term (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
CPT/HCPCS: 36415; 80048; 80051; 80053; 80061; 80143; 80178; 80179; 80307; 81001; 81025; 82248; 82565; 83036; 83735; 84520; 85025; 93005; 99285; J2765; S9485

== ENCOUNTER → 2025-05-27 17:22 | Outpatient (BNV) | payer MEDICARE, MEDICAID, SELFPAY | PROVIDERS: Emergency Provider Emergency Medicine; PCP Nurse Practitioner Family; Visit Provider Internal Medicine | DX: R94.31 Abnormal electrocardiogram [ECG] [EKG] (principal); Z13.6 Encounter for screening for cardiovascular disorders | CPT/HCPCS: 93010 ==

== ENCOUNTER → 2025-05-28 06:00 | Outpatient (BNV) | payer MEDICARE, MEDICAID, SELFPAY | PROVIDERS: Emergency Provider Emergency Medicine; PCP Nurse Practitioner Family; Visit Provider Internal Medicine | DX: Z13.6 Encounter for screening for cardiovascular disorders (principal) | CPT/HCPCS: 93010 ==

== ENCOUNTER → 2025-05-29 11:40 | Outpatient (BNV) | payer MEDICARE, MEDICAID, SELFPAY | PROVIDERS: Admitting Provider Registered Nurse; Emergency Provider Emergency Medicine; PCP Nurse Practitioner Family; Responsible Provider Registered Nurse; Visit Provider Nurse Practitioner Family | DX: Q78.0 Osteogenesis imperfecta (principal); M79.18 Myalgia, other site | CPT/HCPCS: 99221 ==

== ENCOUNTER → 2025-05-29 11:40 | Outpatient (BNV) | payer MEDICARE, MEDICAID, SELFPAY | PROVIDERS: Admitting Provider Registered Nurse; Emergency Provider Emergency Medicine; PCP Nurse Practitioner Family; Responsible Provider Registered Nurse; Visit Provider Registered Nurse | DX: F33.2 Major depressive disorder, recurrent severe without psychotic features (principal); F43.10 Post-traumatic stress disorder, unspecified; F60.3 Borderline personality disorder | CPT/HCPCS: 90792 ==

== ENCOUNTER 2025-06-20 15:02 | Outpatient (AMB) | payer MEDICARE, MEDICAID, SELFPAY ==
--- NOTE | 2025-06-20 15:07 | MHC.PC.OV ---
Vital Signs 06/20/25 15:14 Height 5 ft Weight 94 lb 8 oz BMI 18.5 BP 117/78 Blood Pressure Location Rt brachial Position Sitting Respiration 16 Pulse 80 Pulse Source Pulse Oximeter Temp 98.8 F Temp Source Oral Pulse Oximetry (%) 97 Oxygen Delivery Method Room Air Intake Visit Reasons: [facility] for M5 D/C on 05/02 Intake Note: patient here for HDC from [facility] for M5 on 05/02 Supervisor Tubing Required: No Is last menstrual period known: Yes Last menstrual period: 05/25/25 Post menopausal: No Patient : No Allergies azithromycin Allergy (Verified 06/20/25 15:25) Itching levofloxacin (From Levaquin) Allergy (Verified 06/20/25 15:25) Nightmare nitrofurantoin (From Macrodantin) Allergy (Verified 06/20/25 15:25) Itching Medication List - Last Reconciled 06/20/25 by Debi Machado CNP acetaminophen 975 mg PO Q8H PRN biyzqfleqk-tmpljjoutdgpb-vauw 50-325-40 mg 1 tab PO DAILY PRN hydroxyzine pamoate 50 mg PO Q8H PRN lithium carbonate ER 600 mg (2 x 300 mg) PO BEDTIME 7 days oxcarbazepine 300 mg PO Q12H quetiapine 200 mg PO BEDTIME tamsulosin 0.4 mg PO BEDTIME trazodone 50 mg PO BEDTIME PRN Tobacco use date assessed: 06/20/25 Dental Screening Dental Screen Date: 06/20/25 Did you have a dental visit in the last 12 months?: Yes Did you have a dental problem in the last 6 months where you did not have access to dental care?: No Was dental information given to patient?: Patient has dentist HPI HPI Comments History of Present Illness Details 40-year-old female presents for hospital discharge follow-up. She was hospitalized at [facility] between 05/29/2025 to 06/09/2025 for intentional overdose on 800mg of Seroquel to end her life to reunited with her mother who early May. She notes that she is still very depressed. She endorses a lot of anxiety. She reports SI all the time and states I know i can't do that because it lands me nowhere. She states that feels like I don't want to be here anymore. Peoples lives will be better and they won't have to worry about me. She denies suicide plan or intent. She states that is on a wait list to establish care with a Steffany Odom, psych provider with [facility]. She continues to grieve the of her mother. She shared that her father about 3 years ago this time. She states that she continues to take her medications as prescribed. She did not follow-up with [facility] after recent hospital discharge due to personal and family issues. She is followed by a therapist but has not called to re-connect since her recent hospital discharged. [facility] Medical History (Updated 06/17/25 @ 00:01 by Background Dajameon) Suicide attempt Overdose by ingestion Borderline personality disorder Anorexia Left wrist injury Scoliosis Swelling Osteoporosis Arthritis Asthma Mood disorder Indwelling Joseph catheter present MDD (major depressive disorder), recurrent severe, without psychosis Sacral nerve stimulator present Rectocele Juvenile osteoporosis Compression fx, lumbar spine History of wrist fracture Myofascial pain syndrome Benzodiazepine dependence Anxiety and depression Surgical History History of vaginal surgery History of bladder surgery H/O wrist surgery History of left knee surgery History of right knee surgery History of brain surgery History of placement of ear tubes H/O cystoscopy Family History Mother High blood pressure Cardiovascular disease Father Prostate cancer Social History Household Members: Family Household Members Other:: 1 Housing: House Are you a primary healthcare recruiter to a significant other at home: No Do you presently have visiting nurse or other home services: No Alcohol intake: former Comment: 1:1 sitter Patient Tobacco Use Status: Current everyday Tobacco user Tobacco use type: Cigarette Cigarette Packs Per Day: 1 Cigarettes Per Day: 20.0 Years Smoked: 25 e-Cigarette/Vaping Use: Currently Using Second Hand Smoke Exposure: No Substance Use Type: Opiates Advance Directives Date on File: 07/29/24 service: No Current occupational status: disabled Current occupational exposures/hazards: No Sexual orientation: Straight/Heterosexual Cognitive needs: No Hearing needs: No Vision needs: No Female Reproductive History Menstrual Date of last menstrual period: 05/25/25 Questionnaire PHQ-9 Over the last 2 weeks, how often have you been bothered by any of the following problems? 1. Little interest or pleasure in doing things: nearly every day 2. Feeling down, depressed, or hopeless: nearly every day 3. Trouble falling or staying asleep, or sleeping too much: nearly every day 4. Feeling tired or having little energy: nearly every day 5. Poor appetite or overeating: nearly every day 6. Feeling bad about yourself - or that you are a failure or have let yourself or your family down: nearly every day 7. Trouble concentrating on things, such as reading the newspaper or watching television: several days 8. Moving or speaking so slowly that other people could have noticed. Or the opposite - being so fidgety or restless that you have been moving around a lot more than usual: not at all 9. Thoughts that you would be better off or of hurting yourself in some way: nearly every day Total score: 22 Depression Screening Interpretation: Positive Depression Screening Follow-up: Existing condition and In treatment Depression Screening Done: Yes 15166 - PHQ-9 Billing: Yes Source: Developed by Drs. Myles Mccoy, Annalisa Holguin, Jaime Villasenor and colleagues, with an educational iqra from [employer]. Thrive Questionnaire Date Thrive assessed: 05/30/25 I am a: Patient What is your living situation today?: I do not have a steady places to live I choose not to answer this question Within the past 12 months, did the food you bought not last and you didn't have the money to get more?: Never true Within the past 12 months, did you worry whether your food would run out before you got money to buy more?: Never true Do you have trouble paying for medicines?: No Do you have trouble getting transportation to medical appointments?: No Do you have trouble paying your heating and electricity bill?: No Do you have trouble taking care of your child, family member or friend?: No Do you have trouble with day-to-day activities such as bathing, preparing meals, shopping, managing finances, etc.?: No Are you currently unemployed and looking for a job?: No Are you interested in more education?: Yes Please select the resources that you would like help with: Housing/Long-Term Currently or been in a relationship where the following occur: I choose not to answer THRIVE Score: 1 ANIBAL-7 AMB Questionnaire ANIBAL-7 Date ANIBAL - 7 assessed: 06/20/25 Feeling nervous, anxious, or on edge: 3 = Nearly every day Not being able to stop or control worryin = Nearly every day Worrying too much about different things: 3 = Nearly every day Trouble relaxin = Nearly every day Being so restless that it is hard to sit still: 1 = Several days Becoming easily annoyed or irritable: 3 = Nearly every day Feeling afraid as if something awful might happen: 3 = Nearly every day Total ANIBAL-7 score (0-4 normal; 5-9 mild; 10-14 moderate; 15-21 severe): 19 Source: Developed by Drs. Myles Mccoy, Annalisa Holguin, Jaime Villasenor and colleagues, with an educational iqra from [employer]. ANIBAL-7 Assessment Billing ANIBAL-7 Assessment Tool: ANIBAL-7 Assessment 83189 Review of Systems Const Details: Const Denies chills, Denies fatigue, Denies fever(s), Denies headache(s) and Denies weakness ENT Denies dizziness and Denies headache(s) Card Denies chest pain, Denies lightheadedness, Denies dyspnea and Denies other (Palpitations) Resp Denies cough, Denies dyspnea, Denies wheezing and Denies other ( shortness of breath) GI Denies abdominal pain, Denies melena, Denies hematochezia, Denies change in bowel habits, Denies dyspepsia and Denies nausea Denies hematuria and Denies dysuria Musc Denies abnormal gait, Denies myalgias, Denies arthralgias, Denies numbness and Denies tingling Skin/Breast Denies rash, Denies unusual bruising and Denies wounds Neuro Denies abnormal gait, Denies dizziness, Denies headache(s), Denies memory loss, Denies numbness, Denies Sensory deficit (Neuro), Denies tingling and Denies weakness Psych Reports anxiety, Reports depression, Denies memory loss Endo Denies cold intolerance, Denies fatigue, Denies heat intolerance, Denies polydipsia and Denies polyuria Aller/Immun Denies wheezing Physical exam (Primary Care) Vital Signs: Last Vital Signs Temp 98.8 F 06/20/25 15:14 Pulse 80 06/20/25 15:14 Resp 16 06/20/25 15:14 BP 117/78 06/20/25 15:14 Pulse Ox 97 06/20/25 15:14 Oxygen Delivery Method Room Air 06/20/25 15:14 BMI result Body Mass Index 18.5 Tobacco/Smoking Status: Tobacco use Status Tobacco use date assessed 06/20/25 06/20/25 15:17 Patient Tobacco Use Status Current everyday Tobacco 06/20/25 15:10 Tobacco use type Cigarette 06/20/25 15:10 e-Cigarette/Vaping Use Currently Using 06/20/25 15:10 PHQ-9: PHQ-9 Score PHQ-9: Total score 22 06/20/25 15:52 Depression Screening Interpretation: Positive Depression Screening Follow-up: Existing condition and In treatment Thrive Assessment: Date of Thrive Assessment Date Thrive assessed 05/30/25 06/20/25 15:10 Currently or been in a relationship where the following occur: I choose not to answer Const Other: General: no acute distress and well developed Nutritional Appearance: well nourished Orientation/consciousness: patient oriented x3 HENMT Head: Yes normocephalic and Yes atraumatic Eyes General: appearance normal, both eyes and all related structures Pupils: Equal, round and reactive pupils present EOM: EOMs intact bilaterally Resp Effort & Inspection: normal respiratory effort Auscultation: clear to auscultation bilaterally Cardio Rate: regular rate Rhythm: regular rhythm Heart sounds: S1 normal heart sound present, S2 normal heart sound present, no gallops, no murmurs and no rubs GI Palpation (GI): No Abdominal aortic bruit present, Soft to palpation, nontender, No hepatosplenomegaly present and No Rebound tenderness present Auscultation: normal bowel sounds General: Yes no CVA tenderness Back/Spine/Pelvis Back: no CVA tenderness Cervical Spine: cervical ROM normal and No Cervical spine tenderness Thoracic/Lumbar Spine: thoraco-lumbar ROM normal, No pain with thoraco-lumbar ROM, No thoracic spinal tenderness and No lumbar spinal tenderness Extrem General: Yes normal to inspection, No edema and No calf tenderness Skin General: warm and dry. Normal skin color. Normal skin turgor Neuro General: patient oriented x3, gait normal and no focal neuro deficit Cranial nerves: Yes Equal, round and reactive pupils present Cognition (Neuro): normal cognition Gait exam (Neuro): Normal gait present Sensory Exam: No Sensory deficit (Neuro) Psych Appearance: grossly normal Mood: Depressed and anxious Affect: Blunted Attitude: cooperative Thought process: Linear with Passive SI Coding Level of Care Code Est Pt Level 4 (78589) Diagnoses MDD (major depressive disorder), recurrent severe, without psychosis F33.2 PTSD (post-traumatic stress disorder) F43.10 Borderline personality disorder F60.3 Laboratory tests ordered as part of a complete physical exam (CPE) Z00.00 Additional Codes ANIBAL-7 Assessment Billing - ANIBAL-7 Assessment Tool: ANIBAL-7 Assessment 01221 ([id number]) PHQ-9 - 11864 - PHQ-9 Billing: Yes ([id number]) Assessment & Plan Assessment & Plan (1) MDD (major depressive disorder), recurrent severe, without psychosis: Code(s): F33.2 - Major depressive disorder, recurrent severe without psychotic features Category: Medical Plan: She notes that she is still very depressed. She endorses a lot of anxiety. She reports SI all the time and states I know i can't do that because it lands me nowhere. She states that feels like I don't want to be here anymore. Peoples lives will be better and they won't have to worry about me. She denies suicide plan or intent. She states that is on a wait list to establish care with a Steffany Odom psych provider with [facility]. She continues to grieve the of her mother. She shared that her father about 3 years ago this time. She states that she continues to take her medications as prescribed. She did not follow-up with [facility] after recent hospital discharge due to personal and family issues. She is followed by a therapist but has not called to re-connect since her recent hospital discharged. PHQ-9 and ANIBAL-7 scores revealed severe depression and anxiety. Continue current treatment regimen. Refill sent for lithium and Seroquel. Routine exercise encouraged. She met with the CHW who will work with her to explore other options for a psychiatrist so she can be seen sooner. Follow-up in 1 month or sooner with symptoms or concerns. Verbalized understanding and agreed with the plan. (2) PTSD (post-traumatic stress disorder): Code(s): F43.10 - Post-traumatic stress disorder, unspecified Category: Medical Plan: Plan as above. (3) Borderline personality disorder: Code(s): F60.3 - Borderline personality disorder Category: Medical Plan: Plan as above. (4) Laboratory tests ordered as part of a complete physical exam (CPE): Code(s): Z00.00 - Encounter for general adult medical examination without abnormal findings Category: Medical Plan: Fasting labs ordered as part of a complete physical exam. Advised to fast for at least 10 hours before getting labs drawn. May drink water Verbalized understanding and agreed with treatment plan. Orders: Orders Microalbumin, Random (w Creat) 6 Weeks Z00.00 - Encounter for general adult medical examination without abnormal findings TSH reflex Free T4 6 Weeks Z00.00 - Encounter for general adult medical examination without abnormal findings Lipid Panel 6 Weeks Z00.00 - Encounter for general adult medical examination without abnormal findings Vitamin D 25-OH Total 6 Months Z00.00 - Encounter for general adult medical examination without abnormal findings Medications: New quetiapine 200 mg PO BEDTIME 7 tabs 2RF depressive disorder 7 days Refilled lithium carbonate ER 600 mg (2 x 300 mg) PO BEDTIME 14 tabs 2RF 7 days
[2025-06-20 15:14] VITALS: BP 117/78; PULSE 80; RESP 16; TEMP 37.1; O2SAT 97; BMI 18.5
--- OUTSIDE RECORDS SUMMARY | 2025-06-20 19:29 | XMS_ITS | Clinical Summary ---
Author Organization [facility] Address [address] [place] [phone] Phone Care Team Providers Care Radiator Fitter Name Role Phone Cassia Alanis Primary Care [...] (#1) 2025 06/25/2007 COVID-19 VACCINE ( - 2024-2 6 season) 2025 MAMMOGRAM 2025 HEPATITIS A VACCINES Aged Out No [...] topic Medical Devices Not on file Insurance [employer] MEDICARE PART A & B [place] B Member Subscriber Plan / Payer ( fective 2022-Present) Name:Joselin Gonzales Member ID:[id number] Relation to Subscriber:Self Name:Joselin Gonzales Subscriber ID:[id number] Payer ID:[id number] Group ID:Not on file Type:Medicare Address: [employer] [address] [facility] MEDICARE PART A & B Care Teams Radiator Fitter Relationship Specialty Start Date End Date Cassia Alanis DO [address] [place] [address] [email or web address] PCP - General Family Medicine 09/01/23 Additional Source Comments The information contained in this document represents components of the legal health record. It is not the complete legal health record.[facility]
--- OUTSIDE RECORDS SUMMARY | 2025-06-20 19:29 | XMS_ITS | Encounter Summary ---
Author Organization [facility] Address [address] [place] [address] Phone Care Team Providers Care Boiler Cleaner Name Role Phone Thuan Zarate MD Primary Care Provider [phone] Cassia Alanis DO Primary Care Provider [phone] Encounter Details Date Type Department Care Team (Latest Contact Info) Description 10/11/2020 Transcribe Orders Virtual Department [address] [place] [address] Brent Delgado MD [address] [place] [address] [email or web address] Encounter for laboratory testing for COVID-19 virus [...] documented as of this encounter Care Teams Boiler Cleaner Relationship Specialty Start Date End Date Thuan Zarate MD [address] [facility] [address] [place] [address] [email or web address] PCP - General Family Medicine 10/11/20 08/31/23 Cassia Alanis DO [address] [place] [address] [email or web address] PCP - General Family Medicine 09/01/23 documented as of this encounter Additional Source Comments The information contained in this document represents components of the legal health record. It is not the complete legal health record.[facility]
--- OUTSIDE RECORDS SUMMARY | 2025-06-20 19:29 | XMS_ITS | Encounter Summary ---
Author Organization [facility] Address [address] [place] [address] Care Team Providers Care Manager Appointment Name Role Phone Cami Gant NP, Verito Primary Care Provider [phone] Encounter Details Date Type Department Care Team (Late st Contact Info) Description 08/10/2024 Lab Requisition [facility] - Main Lab [address] [facility] [place] [address] Shavonne Zavaleta NP [address] [place] [address] Social History Tobacco Use Types [...] to direct LDL Lab Routine Ordered: 024 [place] level Lab Routine Ordered: Hemoglobin A1c Lab Routine Ordered: 1 10/11/2023 documented as of this encounter Visit Diagnoses Not on filedocumented in this encounter Care Teams Manager Appointment Relationship Specialty Start Date End Date Verito Almanza NP [address] [place] [phone] PCP - General Psychiatry 05/10/25 documented as of this encounter
--- OUTSIDE RECORDS SUMMARY | 2025-06-20 19:29 | XMS_ITS | Encounter Summary ---
Author Organization [facility] Address [address] [place] [address] Care Team Providers Care Charter Representative Name Role Phone Cami Gant NP, Verito Primary Care Provider [phone] Encounter Details Date Type Department Care Team (Late st Contact Info) Description 05/10/2025 Lab Requisition [facility] - Main Lab [address] [facility] [place] [address] Verito Almanza NP [address] [place] [address] Social History Tobacco Use Types [...] on filedocumented in this encounter Care Teams Charter Representative Relationship Specialty Start Date End Date Verito Almanza NP [address] [place] [address] PCP - General Psychiatry 05/10/25 documented as of this encounter
--- OUTSIDE RECORDS SUMMARY | 2025-06-20 19:29 | XMS_ITS | Encounter Summary ---
Author Organization [facility] Address [address] [place] [address] Care Team Providers Care Research Intern Name Role Phone Cami Gant NP, Verito Primary Care Provider [phone] Encounter Details Date Type Department Care Team (Late st Contact Info) Description 05/06/2025 Lab Requisition [facility] - Main Lab [address] [facility] [place] [phone] Verito Almanza NP [address] [place] [address] Other care home (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 Social History Tobacco Use [...] LDL Routine 05/06/2025 7:00 AM EDT Other continuous churn buttermaker (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 HEMOGLOBIN A1C Routine 05/06/2025 7:00 AM EDT Other continuous churn buttermaker (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 GLUCOSE, RANDOM Routine 05/06/2025 7:00 AM EDT Other continuous churn buttermaker (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 documented in this encounter Results * (ABNORMAL) Glucose, random (05/06/2025 7:00 AM EDT) Glucose 116(H) 70 - 100 mg/dL LAB CHEMISTRY METHOD 05/06/2025 12:32 PM EDT [facility] Blood Venous blood specimen / Unknown Venipuncture / Unknown 05/06/2025 7:00 AM EDT 05/06/2025 11:14 AM EDT us Verito Almanza V NEWS OPERATIONS MANAGER LAB BLOOD ORDERABLES Final Re sult [facility] [address] [place] [address], [place] [phone] * (ABNORMAL) Lipid panel with reflex to direct LDL (05/06/2025 7:00 AM EDT) Cholesterol 198 0 - 200 mg/dL LAB CHEMISTRY METHOD 05/06/2025 12:32 PM [facility] Triglycerides 160(H) 0 - 150 mg/dL LAB CHEMISTRY METHOD 05/06/2025 12:32 PM [facility] HDL 79 >=40 mg/dL LAB CHEMISTRY METHOD 05/06/2025 12:32 PM T [facility] LDL Calculated 87 0 - 100 mg/dL LAB CHEMISTRY METHOD 05/06/2025 12:32 PM [facility] Comment:Estimated LDL Calcul ated using equation: Total cholesterol - HDL cholesterol - (Triglycerides/5) VLDL Cholesterol Rahul 32 mg/dL LAB CHEMISTRY METHOD 05/06/2025 12:32 PM T [facility] Non HDL Chol. (LDL+VLDL) 119 <145 mg/dL LAB CHEMISTRY METHOD 05/06/2025 12:32 PM [facility] Chol/HDL Ratio 2.5 0.0 - 4.4 LAB CHEMISTRY METHOD 05/06/2025 12:32 PM [facility] Blood Venous blood specimen / Unknown Venipuncture / Unknown 05/06/2025 7:00 AM EDT 05/06/2025 11:14 AM EDT Verito Gant NP LAB BLOOD ORDERABLES Final Re sult Performing Organization Address [facility] Co de Phone Number [facility] [address] [place] [address], [place] [phone] * Hemoglobin A1c (05/06/2025 7:00 AM EDT) Pathologist [facility] Hemoglobin A1C 5.2 <6.5 % LAB CHEMISTRY METHOD 05/08/2025 10:46 AM EDT [facility] Mean Bld Glu Estim. 103 mg/dL LAB CHEMISTRY METHOD 05/08/2025 10:46 AM EDT [facility] Blood Venous blood specimen / Unknown Venipuncture / Unknown 05/06/2025 7:00 AM EDT 05/06/2025 11:14 AM EDT Verito Gant NP LAB BLOOD ORDERABLES Final Re sult Performing Organization Address [facility]/ZIP Co de Phone Number [facility] [address] [place] [address], [place] [phone] documented in this encounter Visit Diagnoses Diagnosis Other continuous churn buttermaker (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 documented in this encounter Care Teams Research Intern Relationship Specialty Start Date End Date Verito Almanza NP [address] [place] [phone] PCP - General Psychiatry 05/10/25 documented as of this encounter
--- OUTSIDE RECORDS SUMMARY | 2025-06-20 19:29 | XMS_ITS | Encounter Summary ---
Author Organization [facility] Address [address] [place] [address] Care Team Providers Care Instructor Industrial Design Name Role Phone Cami Gant NP, Verito Primary Care Provider [phone] Encounter Details Date Type Department Care Team (Late st Contact Info) Description 05/10/2025 Lab Requisition [facility] - Main Lab [address] [facility] [place] [address] Verito Almanza NP [address] [place] [address] Other [facility]ci (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 Social History Tobacco Use [...] LEVEL Routine 05/10/2025 7:00 AM EDT Other emt intermediate (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 documented in this encounter Results * (ABNORMAL) [place] level (05/10/2025 7:00 AM EDT) [place] Level 0.3(L) 0.6 - 1.2 mEq/L LAB CHEMISTRY METHOD 05/10/2025 11:59 AM EDT [facility] Blood Venous blood specimen / Unknown Venipuncture / Unknown 05/10/2025 7:00 AM EDT 05/10/2025 10:59 AM EDT Verito Gant NP LAB BLOOD ORDERABLES Final Re sult [facility] ([facility] [address] [place] [address], documented in this encounter Visit Diagnoses Diagnosis Other fci (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 documented in this encounter Care Teams Instructor Industrial Design Relationship Specialty Start Date End Date Verito Almanza NP [address] [place] [phone] PCP - General Psychiatry 05/10/25 documented as of this encounter
--- OUTSIDE RECORDS SUMMARY | 2025-06-20 19:29 | XMS_ITS | Clinical Summary ---
Author Organization [address] [facility] Address [address] [place] [address] Phone Care Team Providers Care Hide Dropper Name Role Phone Cami Gant BRANCH RENTAL MANAGER, Verito Primary Care Provider [phone] Encounters Date Type Department Care Team Description 05/10/[address] [facility] [address] [place] [phone] Staple, Verito V, BRANCH RENTAL MANAGER 05/10/[address] [facility] [address] [place] [phone] Staple, Verito V, BRANCH RENTAL MANAGER Other [facility] (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 05/06/[address] 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 Osteogenesis imperfecta 1998 DX:Osteo mary imperfecta Family History Relation Name Status Comments Brother Alive Healthy Father Alive [place] Maternal Grandfather Lung ca ncer Maternal Grandmother [...] Health Maintenance Due Date Last Done Comments Breast Cancer Screening 1985 Hepatitis B Vaccines (1 of 3 - [...] Screening 07/22/2022 Depression Screening 08/24/2024 COVID-19 Vaccine ( - 2023-2 5 season) 2025 Influenza Vaccine [...] LEVEL Routine 05/10/2025 7:00 AM EDT Other [facility] (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 GLUCOSE, RANDOM Routine 05/06/2025 7:00 AM EDT Other remote computer terminal operator (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 LIPID PANEL WITH REFLEX TO DIRECT LDL Routine 05/06/2025 7:00 AM EDT Other [facility] (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 HEMOGLOBIN A1C Routine 05/06/2025 7:00 AM EDT Other [facility] (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 from Last 3 Months Results * (ABNORMAL) [place] level (05/10/2025 7:00 AM EDT) [facility] [place] Level 0.3(L) 0.6 - 1.2 mEq/L LAB CHEMISTRY METHOD 05/10/2025 11:59 AM EDT [facility] Blood Venous blood specimen / Unknown Venipuncture / Unknown 05/10/2025 7:00 AM EDT 05/10/2025 10:59 AM EDT us Verito Gant NP LAB BLOOD ORDERABLES Final Re sult [facility]) [facility] [address] [place] [address], [place] [phone] * (ABNORMAL) Lipid panel with reflex to direct LDL (05/06/2025 7:00 AM EDT) Cholesterol 198 0 - 200 mg/dL LAB CHEMISTRY METHOD 05/06/2025 12:32 PM EDT [facility] Triglycerides 160(H) 0 - 150 mg/dL LAB CHEMISTRY METHOD 05/06/2025 12:32 PM [facility] HDL 79 >=40 mg/dL LAB CHE[facility]STRY METHOD [facility] LDL Calculated 87 0 - 100 mg/dL LAB CHEMISTRY METHOD 05/06/2025 12:32 PM EDT [facility] Comment:Estimated LDL Calcul ated using equation: Total cholesterol - HDL cholesterol - (Triglycerides/5) VLDL Cholesterol Rahul 32 mg/dL LAB CHEMISTRY METHOD 05/06/2025 12:32 PM [facility] Non HDL Chol. (LDL+VLDL) 119 <145 mg/dL LAB CHEMISTRY METHOD 05/06/2025 12:32 PM [facility] Chol/HDL Ratio 2.5 0.0 - 4.4 LAB CHEMISTRY METHOD 05/06/2025 12:32 PM T [facility] Blood Venous blood specimen / Unknown Venipuncture / Unknown 05/06/2025 7:00 AM EDT 05/06/2025 11:14 AM EDT us Verito Almanza V, BRANCH RENTAL MANAGER LAB BLOOD ORDERABLES Final Re sult [facility] [address] [place] [address], * Hemoglobin A1c (05/06/2025 7:00 AM EDT) Pathologist [facility] Hemoglobin A1C 5.2 <6.5 % LAB CHEMISTRY METHOD 05/08/2025 10:46 AM EDT [facility] Mean Bld Glu Estim. 103 mg/dL LAB CHEMISTRY METHOD 05/08/2025 10:46 AM EDT [facility] Blood Venous blood specimen / Unknown Venipuncture / Unknown 05/06/2025 7:00 AM EDT 05/06/2025 11:14 AM EDT Verito Gant NP LAB BLOOD ORDERABLES Final Re sult Performing Organization Address [facility]/ZIP Co de Phone Number [facility] [address] [place] [address], [place] [phone] * (ABNORMAL) Glucose, random (05/06/2025 7:00 AM EDT) Glucose 116(H) 70 - 100 mg/dL LAB CHEMISTRY METHOD 05/06/2025 12:32 PM EDT [facility] Blood Venous blood specimen / Unknown Venipuncture / Unknown 05/06/2025 7:00 AM EDT 05/06/2025 11:14 AM EDT Verito Gant NP LAB BLOOD ORDERABLES Final Re sult Performing Organization Address [facility] de Phone Number [facility] [address] [place] [address], [place] [phone] from Last 3 Months Care Teams Hide Dropper Relationship Specialty Start Date End Date Verito Almanza NP [address] [place] [phone] PCP - General Psychiatry 05/10/25
--- OUTSIDE RECORDS SUMMARY | 2025-06-20 19:29 | XMS_ITS | Encounter Summary ---
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 It is not the complete legal health record.[facility]
--- OUTSIDE RECORDS SUMMARY | 2025-06-20 19:29 | XMS_ITS | Encounter Summary ---
Author Organization [facility] Address [address] [place] [address] Care Team Providers Care Webmethods Consultant Name Role Phone Cami Gant NP, Verito Primary Care Provider [phone] Encounter Details Date Type Department Care Team (Late st Contact Info) Description 08/03/2024 Lab Requisition [facility] [address] [facility] [employer] [place] [address] Shavonne Zavaleta NP [address] [place] [address] Other termite helper (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 Social History Tobacco Use [...] LDL Routine 08/03/2024 7:00 AM EST Other care home (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 HEMOGLOBIN A1C Routine 08/03/2024 7:00 AM EST Other termite helper (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 LITHIUM LEVEL Routine 08/03/2024 7:00 AM EST Other care home (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 documented in this encounter Results * (ABNORMAL) [place] level (08/03/2024 7:00 AM EST) [place] Level 0.5(L) 0.6 - 1.2 mEq/L LAB CHEMISTRY METHOD 08/03/2024 1:31 PM EST [facility] Blood Venous blood specimen / Unknown Venipuncture / Unknown 08/03/2024 7:00 AM EST 08/03/2024 12:08 PM EST Shavonne Zavaleta REFRIGERATOR CAR ICER LAB BLOOD ORDERABLES Fi nal Result [facility] [address] [place] [address], [place] [phone] * (ABNORMAL) Lipid panel with reflex to direct LDL (08/03/2024 7:00 AM EST) Cholesterol 201(H) 0 - 200 mg/dL LAB CHEMISTRY METHOD 08/03/2024 1:28 PM [facility] Triglycerides 185(H) 0 - 150 mg/dL LAB CHEMISTRY METHOD 08/03/2024 1:28 PM [facility] HDL 87 >=40 mg/dL LAB CHEMISTRY METHOD 08/03/2024 1:28 PM [facility] LDL Calculated 77 0 - 100 mg/dL LAB CHEMISTRY METHOD 08/03/2024 1:28 PM [facility] VLDL Cholesterol Rahul 37 mg/dL LAB CHEMISTRY METHOD 08/03/2024 1:28 PM [facility] Non HDL Chol. (LDL+VLDL) 114 <145 mg/dL LAB CHEMISTRY METHOD 08/03/2024 1:28 PM [facility] Chol/HDL Ratio 2.3 0.0 - 4.4 LAB CHEMISTRY METHOD 08/03/2024 1:28 PM [facility] Blood Venous blood specimen / Unknown Venipuncture / Unknown 08/03/2024 7:00 AM EST 08/03/2024 12:08 PM EST us Shavonne Eleojo Abimaje REFRIGERATOR CAR ICER LAB BLOOD ORDERABLES Fi nal Result Performing Organization Address City/[facility] [address]/ZIP Co de Phone Number [facility] [address] [place] [address], [place] [phone] * Hemoglobin A1c (08/03/2024 7:00 AM EST) Hemoglobin A1C 4.7 <6.5 % LAB CHEMISTRY METHOD 08/03/2024 1:35 PM EST [facility] Mean Bld Glu Estim. 88 mg/dL LAB CHEMISTRY METHOD 08/03/2024 1:35 PM EST [facility] Blood Venous blood specimen / Unknown Venipuncture / Unknown 08/03/2024 7:00 AM EST 08/03/2024 11:51 AM EST Shavonne Eleochang Abimaje REFRIGERATOR CAR ICER LAB BLOOD ORDERABLES Fi nal Result Performing Organization Address City/[facility] [address]/ZIP Co de Phone Number [facility] [address] [place] [address], [place] [phone] documented in this encounter Visit Diagnoses Diagnosis Other termite helper (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 documented in this encounter Care Teams Webmethods Consultant Relationship Specialty Start Date End Date Verito Almanza NP [address] [place] [phone] PCP - General Psychiatry 05/10/25 documented as of this encounter
== END 2025-06-20 16:06 | disposition home or self-care (01) ==
LOC: HO.HMCFM 15:03
PROVIDERS: PCP Nurse Practitioner Family; Visit Provider Nurse Practitioner Family
DX: F33.2 Major depressive disorder, recurrent severe without psychotic features (principal); F43.10 Post-traumatic stress disorder, unspecified; F60.3 Borderline personality disorder; Z00.00 Encounter for general adult medical examination without abnormal findings

== ENCOUNTER → 2025-06-20 15:02 | Outpatient (BNVA) | payer MEDICARE, MEDICAID, SELFPAY | PROVIDERS: PCP Family Medicine; Visit Provider Nurse Practitioner Family | DX: Z09 Encounter for follow-up examination after completed treatment for conditions other than malignant neoplasm (principal); F33.2 Major depressive disorder, recurrent severe without psychotic features; F43.10 Post-traumatic stress disorder, unspecified; F60.3 Borderline personality disorder; Z13.31 Encounter for screening for depression; Z13.39 Encounter for screening examination for other mental health and behavioral disorders | CPT/HCPCS: 96127; 99212 ==

== ENCOUNTER 2025-07-13 17:17 | Emergency (ER) | payer MEDICARE, MEDICAID, SELFPAY ==
--- NOTE | 2025-07-13 | ECG_ITS ---
Test Reason : DIZZINESS Blood Pressure : */* mmHG Vent. Rate : 73 BPM Atrial Rate : 73 BPM P-R Int : 132 ms QRS Dur : 92 ms QT Int : 434 ms P-R-T Axes : 50 24 -5 degrees QTcB Int : 478 ms Artfact in tracing Probable sinus rhythm Due to artifact cannot compare Referred By: Generic ED Physician Electronically Signed By: RILEY JORGE
--- NOTE | ~2025-07-13 | CT_ITS ---
CLINICAL HISTORY: BLQ Tenderness; N V D CT abdomen and pelvis with contrast Comparison: CT - CT ABDOMEN PELVIS WITH IV CONTRAST - 06/04/24 18:33 EDT Findings: LIMITED CHEST: Punctate 1-2 mm nodules at the left base. This is also seen on prior examinations. LIVER: No focal liver lesion. BILIARY: No gallbladder wall thickening, radiopaque stone, or ductal dilatation. PANCREAS: No mass or ductal dilatation. SPLEEN: No splenomegaly. KIDNEYS: No hydronephrosis or radiopaque stone. ADRENALS: No nodule. VASCULAR: No aneurysm. RETROPERITONEUM: No lymphadenopathy or mass. BOWEL/MESENTERY: No evidence of obstruction. No free fluid or air. Normal appendix. Mild rectal wall thickening. ABDOMINAL WALL: No mass or significant abnormality. Spinal stimulator device in the posterior left abdominal wall URINARY BLADDER: Circumferential thickening of the bladder. PELVIC NODES: No pelvic lymphadenopathy. PELVIC ORGANS: Prominent enhancement of the endometrium, may be within normal limits for a premenopausal patient. BONES: No acute fracture. OTHER: Negative. IMPRESSION: Circumferential thickening of the bladder, correlate with urinalysis for cystitis. Mild rectal wall thickening, may represent proctitis in the appropriate clinical setting. This document has been electronically signed by: Jennifer Billings MD on 07/13/2025 23:30:32
[2025-07-13 17:23] VITALS: BP 126/85; PULSE 83; O2SAT 98
[2025-07-13 17:33] VITALS: BP 112/78; PULSE 65; RESP 16; TEMP 36.7; O2SAT 97; BMI 17.4
--- NOTE | 2025-07-13 17:55 | PC.NURSE ---
section 12 faxed over from [facility]. patient upset yet understanding of need for changeover process.
--- NOTE | 2025-07-13 18:08 | PC.NURSE ---
patient changed over into hospital attire, denies si/hi. patient calm and cooperative throughout.
[2025-07-13 18:26] LABS: MANUAL DIFF FLAG NO
[2025-07-13 18:28] LABS: Hematocrit 39.4 % (37.0-47.0); Hemoglobin 13.2 g/dl (12.0-16.0); Imm Gran Abs Auto 0.01 X10*3/uL (0.00-0.03); Imm Gran Pct Auto 0.2 % (0.0-0.4); Lymphocytes Absolute Auto 1.6 X10*3/uL (1.2-4.9); Mean Corpuscular HGB Conc 33.5 g/dl (31.0-35.0); Mean Corpuscular Hemoglobin 31.2 pg (27.0-33.0); Mean Corpuscular Volume 93.1 fL (80.0-98.0); NRBC Abs Auto 0.000 X10*3/uL (0.0-0.012); NRBC Pct Auto 0.0 /100WBC (0.0-0.2); Platelet Count 254 X10*3/uL (160-400); Red Blood Count 4.23 X10*6/uL (4.20-5.50); White Blood Count 6.2 X10*3/uL (4.8-10.8)
[2025-07-13 19:00] LABS: Alanine Aminotransferase 6 U/L (0-31); Albumin Level 4.2 g/dL (3.5-5.0); Alkaline Phosphatase 67 U/L (39-117); Anion Gap 10 (12-20); Aspartate Amino Transferase 18 U/L (5-31); Blood Urea Nitrogen 4 mg/dL (9-16); Calcium 9.3 mg/dL (8.4-10.2); Carbon Dioxide 24 mmol/L (22-29); Chloride 107 mmol/L (96-108); Creatinine Clr Calc Pharmacy 66.1; Estimated Glomerular Filt Rate > 60; Lipase 14 U/L (8-78); Potassium 3.6 mmol/L (3.3-5.1); Sodium 137 mmol/L (135-145); Total Protein 6.3 g/dL (6.5-8.0)
[2025-07-13 19:23] LABS: Acetaminophen LAB < 3 mcg/mL (<30); Salicylate < 5.0 mg/dL (15-30)
[2025-07-13 19:42] VITALS: BP 101/78; PULSE 72; RESP 16; TEMP 36.8; O2SAT 98
[2025-07-13 20:42] LABS: Appearance Urine Cloudy; Glucose Urine UA Negative (Negative); PH 7.0 (5.0-9.0); Specific Gravity - Urine <= 1.005 (1.005-1.025)
[2025-07-13 20:52] LABS: Cannabinoid Screen Urine Not Detected (Not Detect)
--- NOTE | 2025-07-13 20:59 | ED_ITS ---
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 She was sent to the ED by her behavioral health facility because she has been ?not really eating or drinking? for the past three weeks. Patient reports for the past 3 weeks she has not been eating because she has been experiencing intermittent vomiting, typically occurring after she eats and accompanied by significant nausea, as well as daily diarrhea, describes stools as watery brown, sometimes green or yellow. She denies hematochezia. Denies fevers. No recent antibiotic use or hospitalization. The patient also reports 3 weeks of bilateral lower-abdominal pain which is new. Patient denies abdominal surgical history. Related Data Home Medications ?Medication ?Instructions ?Recorded ?Confirmed acetaminophen 325 mg tablet 975 mg PO Q8H PRN Pain (Sc jo ann 04/22/25 06/20/25 Score 1-3) tamsulosin 0.4 mg capsule 0.4 mg PO BEDTIME 05/03/25 1 hydroxyzine pamoate 50 mg capsule 50 mg PO Q8H PRN Anx iety 05/28/25 06/20/25 Previous Rx's ?Medication ?Instructions ?Recorded lithium carbonate 300 mg 600 mg (2 x 300 mg) PO BEDTI ME 7 06/20/25 tablet,extended release days #14 tabs quetiapine 200 mg tablet See Rx Instructions .Route 1 .COMPLEX #90 tabs oxcarbazepine 300 mg tablet 300 mg PO Q12H 30 days #60 tabs 06/28/25 trazodone 50 mg tablet 50 mg PO BEDTIME PRN insomni a #30 06/28/25 tabs ondansetron 4 mg disintegrating 4 mg PO Q8H PRN nausea and 07/13/25 tablet vomiting #14 tabs Allergies Allergy/AdvReac Type Severity Reaction Status Date / Time azithromycin Allergy Itching Verified 07/13/25 17:34 levofloxacin (From Levaquin) Allergy Nightmare Verified 07/13/25 17:34 nitrofurantoin (From Allergy Itching Verified 07/13/25 17:34 Macrodantin) Review of Systems 2 Review of Systems: Yes all other systems are reviewed and are negative [facility] Past Medical History Medical History (Updated 07/13/25 @ 23:41 by Harry Andrade PA-C) Suicide attempt Overdose by ingestion Borderline personality disorder Anorexia Left wrist injury Scoliosis Swelling Osteoporosis Arthritis Asthma Mood disorder Indwelling Joseph catheter present MDD (major depressive disorder), recurrent severe, without psychosis Sacral nerve stimulator present Rectocele Juvenile osteoporosis Compression fx, lumbar spine History of wrist fracture Myofascial pain syndrome Benzodiazepine dependence Anxiety and depression Surgical History History of vaginal surgery History of bladder surgery H/O wrist surgery History of left knee surgery History of right knee surgery History of brain surgery History of placement of ear tubes H/O cystoscopy Family History Family History Mother High blood pressure Cardiovascular disease Father Prostate cancer Social History Social History Household Members: Family Household Members Other:: 1 Housing: House Are you a primary customer care representative to a significant other at home: No Do you presently have visiting nurse or other home services: No Alcohol intake: former Comment: 1:1 sitter Patient Tobacco Use Status: Current everyday Tobacco user Tobacco use type: Cigarette Cigarette Packs Per Day: 1 Cigarettes Per Day: 20.0 Years Smoked: 25 e-Cigarette/Vaping Use: Currently Using Second Hand Smoke Exposure: No Substance Use Type: Opiates Advance Directives: Yes Advance Directives on File: Yes Advance Directives Date on File: 07/29/24 service: No Current occupational status: disabled Current occupational exposures/hazards: No Sexual orientation: Straight/Heterosexual Cognitive needs: No Hearing needs: No Vision needs: No Physical Exam ED Vital Signs: Vital Signs - 24 hr 07/13/25 17:33 07/13/25 19:42 Temperature 98.1 F 98.3 F Pulse Rate 65 72 Respiratory Rate 16 16 Blood Pressure 112/78 101/78 Pulse Oximetry 97 98 Oxygen Delivery Method Room Air Room Air BMI result Body Mass Index 17.4 CONSTITUTIONAL: The patient appears non-toxic, well nourished and in no acute distress. Vital signs as documented. HEAD: Atraumatic, normocephalic. EYES: EOMs grossly intact, pupils equal, conjunctiva clear, no exudate. ENT: Nares patent, no discharge. Airway patent, no audible stridor, visible mucosa is pink and moist without noted lesions. NECK: Trachea is midline, no obvious masses or gross abnormalities. CHEST: Symmetric movement, normal appearance. LUNGS: LS present and CTAB, no w/r/r. Non-labored work of breathing. CARDIAC: Regular Rhythm, S1/S2 appreciated, no murmurs, rubs or gallops. ABDOMEN: Abdomen soft x4 quadrants, positive tenderness to palpation of the bilateral lower quadrants, negative rebound, negative guarding, negative Rovsing's, no palpable masses or organomegaly. : Deferred. EXTREMITIES: Normal tone, moves all extremities spontaneously without reported pain. No obvious acute injury or deformity noted. NEURO: Alert and oriented x3, CN II-XII appear grossly intact. Cerebellar Functioning grossly intact. No obvious sensory or motor deficits. Speech clear and appropriate. PSYCH: normal affect, appropriate eye contact, fluid speech, with appropriate response to questioning. No reported suicidality or homicidality. SKIN: Warm, dry, color appropriate, normal turgor. No rashes noted. 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 She was sent to the ED by her behavioral health facility because she has been ?not really eating or drinking? for the past three weeks. Patient reports for the past 3 weeks she has not been eating she has been experiencing intermittent vomiting, typically occurring after she eats and accompanied by significant nausea, as well as daily diarrhea, describes stools as watery brown, sometimes green or yellow. She denies hematochezia. Denies fevers. No recent antibiotic use or hospitalization. The patient also reports bilateral lower-abdominal pain which is new. Patient denies abdominal surgical history. On exam the patient has tenderness of the bilateral lower quadrants, negative rebound, negative Rovsing's. Patient's laboratory evaluation is markedly reassuring, no leukocytosis, anemia, electrolyte abnormality, or ESTEPHANIE. LFTs are unremarkable, lipase is normal, urine is negative, urinalysis is negative for infection or hematuria, toxicology screening negative. Given the patient's abdominal tenderness on exam we will obtain CT abdomen and pelvis to rule out acute intra-abdominal pathology. Pending unremarkable CT abdomen and pelvis the patient will be discharged with antiemetics and supportive care. 11:39 PM 07/13/2025 (Unruly MOONEY): CT abdomen and pelvis has resulted and shows bladder wall thickening consistent with possible cystitis with the recommendation for urinalysis correlation, patient's urinalysis shows no evidence of infection. There is also mild rectal wall thickening which may represent proctitis. Patient has no leukocytosis, no fever, and although she is experiencing diarrhea denies any pain with moving her bowels. CT is otherwise unremarkable. Patient will be discharged with antiemetics and supportive care. Admission/Observation Consideration of admission/observation: Escalation of care including admission/observation considered Lab Data MDM Lab Attestation statement: I reviewed the patient's lab results. 07/13/25 18:22 07/13/25 18:22 Labs: Lab Results 07/13/25 07/13/25 Range/Units 18:22 20:35 WBC 6.2 (4.8-10.8) X10*3/uL RBC 4.23 (4.20-5.50) X10*6/uL Hgb 13.2 (12.0-16.0) g/dl Hct 39.4 (37.0-47.0) % MCV 93.1 (80.0-98.0) fL MCH 31.2 (27.0-33.0) pg MCHC 33.5 (31.0-35.0) g/dl RDW 12.1 (11.0-16.0) % Plt Count 254 (160-400) X10*3/uL MPV 10.0 (9.4-12.3) fL Immature Gran % (Auto) 0.2 (0.0-0.4) % Neut % (Auto) 64.6 (45-73) % Lymph % (Auto) 25.3 (20-40) % [place] % (Auto) 7.9 (2-11) % Eos % (Auto) 1.0 (0-4) % Baso % (Auto) 1.0 (0-2) % Lymph # (Auto) 1.6 (1.2-4.9) X10*3/uL [place] # (Auto) 0.5 (0.1-1.2) X10*3/uL Eos # (Auto) 0.1 (0.0-0.4) X10*3/uL Baso # (Auto) 0.1 (0.0-0.2) X10*3/uL Abs Immat Gran (auto) 0.01 (0.00-0.03) X10*3/uL Absolute Neuts (auto) 4.0 (2.0-8.3) x10*3/uL Absolute Nucleated RBC 0.000 (0.0-0.012) X10*3/uL Nucleated RBC % (auto) 0.0 (0.0-0.2) /100WBC Sodium 137 (135-145) mmol/L Potassium 3.6 (3.3-5.1) mmol/L Chloride 107 (96-108) mmol/L Carbon Dioxide 24 (22-29) mmol/L Anion Gap 10 L (12-20) BUN 4 L (9-16) mg/dL Creatinine 0.72 (0.5-1.4) mg/dL Estim Creat Clear Calc 66.1 Estimated GFR > 60 Random Glucose 98 (60-115) mg/dL Calcium 9.3 (8.4-10.2) mg/dL Total Bilirubin 0.4 (0.0-1.0) mg/dL AST 18 (5-31) U/L ALT 6 (0-31) U/L Alkaline Phosphatase 67 (39-117) U/L Total Protein 6.3 L (6.5-8.0) g/dL Albumin 4.2 (3.5-5.0) g/dL Lipase 14 (8-78) U/L Beta HCG, Quant < 2 mIU/mL Urine Color Yellow Urine Appearance Cloudy Urine pH 7.0 (5.0-9.0) Ur Specific [place] <= 1.005 (1.005-1.025) Urine Protein Negative (Neg-Trace) mg/dL Urine Glucose (UA) Negative (Negative) mg/dL Urine Ketones Negative (Negative) mg/dL Urine Blood Negative (Negative) Urine Nitrite Negative (Negative) Ur Leukocyte Esterase Negative (Negative) Salicylates < 5.0 L (15-30) mg/dL Urine Opiates Screen Not Detected (Not Detect) Ur Buprenorphine Scrn Not Detected (Not Detect) ng/mL Ur Oxycodone Screen Not Detected (Not Detect) ng/mL Urine Methadone Screen Not Detected (Not Detect) ng/mL Urine Fentanyl Screen Not Detected (Not Detect) Acetaminophen < 3 (<30) mcg/mL Ur Barbiturates Screen Not Detected (Not Detect) Ur Phencyclidine Scrn Not Detected (Not Detect) Ur Amphetamines Screen Not Detected (Not Detect) U Benzodiazepines Scrn Not Detected (Not Detect) Urine Cocaine Screen Not Detected (Not Detect) U Marijuana (THC) Screen Not Detected (Not Detect) Ethyl Alcohol < 10 mg/dL Independent Interpretation I performed an independent interpretation of an: EKG (Sinus rhythm with a rate of 73, there is stimulator artifact noted which is not new and limits interpretation, there is T-wave inversion noted in the inferior leads not evident on EKG from 05/28/2025, however is baseline per other previous EKGs. No ST elevation, no ectopy. QTC 478.) Radiology Impression Discussion of test interpretation with radiology: I have reviewed the radiologist's reading. Radiologist Impression: CT abdomen and pelvis with contrast Comparison: CT - CT ABDOMEN PELVIS WITH IV CONTRAST - 06/04/24 18:33 EDT Findings: LIMITED CHEST: Punctate 1-2 mm nodules at the left base. This is also seen on prior examinations. LIVER: No focal liver lesion. BILIARY: No gallbladder wall thickening, radiopaque stone, or ductal dilatation. PANCREAS: No mass or ductal dilatation. SPLEEN: No splenomegaly. KIDNEYS: No hydronephrosis or radiopaque stone. ADRENALS: No nodule. VASCULAR: No aneurysm. RETROPERITONEUM: No lymphadenopathy or mass. BOWEL/MESENTERY: No evidence of obstruction. No free fluid or air. Normal appendix. Mild rectal wall thickening. ABDOMINAL WALL: No mass or significant abnormality. Spinal stimulator device in the posterior left abdominal wall URINARY BLADDER: Circumferential thickening of the bladder. PELVIC NODES: No pelvic lymphadenopathy. PELVIC ORGANS: Prominent enhancement of the endometrium, may be within normal limits for a premenopausal patient. BONES: No acute fracture. OTHER: Negative. IMPRESSION: Circumferential thickening of the bladder, correlate with urinalysis for cystitis. Mild rectal wall thickening, may represent proctitis in the appropriate clinical setting. Discharge Plan Discharge Clinical Impression: Gastroenteritis, Poor appetite Patient Disposition: Home, Self-Care Instructions: Gastroenteritis (ED), Acute Nausea and Vomiting (ED) Additional Instructions: Thank you for choosing [facility]'s Emergency Department for your care today. Thankfully your laboratory evaluation, CT, EKG, and exam today are reassuring. There was no evidence of significant dehydration, malnutrition, or emergent process requiring surgical intervention, admission to the hospital or continued ED observation, and it is safe to discharge you home. Please take Zofran as directed for nausea. Please stay well hydrated and get plenty of rest. Please follow up with your primary care physician for re-evaluation, additional management of your symptoms, and continued preventative care. If you do not have a primary care physician, please call the [facility] at [phone] to establish a new primary care physician. While waiting to establish your new primary care physician, you can call our Walk-in [facility] at [phone] for non-emergency needs. Please return to the emergency department if you develop a severe or sudden change in your symptoms, a fever over 100.4 that does not improve with Tylenol or Ibuprofen, recurrent vomiting, or any other new or worsening symptoms or concerns. Prescriptions: New ondansetron 4 mg tablet,disintegrating 4 mg PO Q8H PRN (Reason: nausea and vomiting) Qty: 14 0RF No Action quetiapine 200 mg tablet See Rx Instructions .ROUTE .COMPLEX Qty: 90 1RF Dose Instruction: TAKE 1 TABLET BY MOUTH AT BEDTIME FOR DEPRESSIVE DISORDER FOR 7 DAYS Rx Instructions: TAKE 1 TABLET BY MOUTH AT BEDTIME FOR DEPRESSIVE DISORDER FOR 7 DAYS oxcarbazepine 300 mg tablet 300 mg PO Q12H 30 Days Qty: 60 0RF trazodone 50 mg tablet 50 mg PO BEDTIME PRN (Reason: insomnia) Qty: 30 2RF acetaminophen 325 mg tablet 975 mg PO Q8H PRN (Reason: Pain (Scale Score 1-3)) tamsulosin 0.4 mg capsule 0.4 mg PO BEDTIME hydroxyzine pamoate 50 mg capsule 50 mg PO Q8H PRN (Reason: Anxiety) lithium carbonate 300 mg tablet extended release 600 mg PO BEDTIME 7 Days Qty: 14 2RF Referrals: Debi Machado, RODRIGO [Primary Care Provider, Internal Medicine] Clinical Impression: Poor appetite; Gastroenteritis Print Language: Northern Irish
--- OUTSIDE RECORDS SUMMARY | 2025-07-13 21:03 | XMS_ITS | Clinical Summary ---
Author Organization [address] [facility] Address [address] [place] [address] Phone Care Team Providers Care Bottle Feeder Name Role Phone Cami Gant WATER TAXI DRIVER, Verito Primary Care Provider [phone] Encounters Date Type Department Care Team Description 05/10/2025 Lab Requisition [facility] Lab [address] [place] [phone] Staple, Verito V, WATER TAXI DRIVER 05/10/2025 Lab Requisition [facility] Lab [address] [place] [phone] Staple, Verito V, WATER TAXI DRIVER Other assisted (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 05/06/2025 Lab Requisition [facility] Lab [address] [place] [phone] Staple, Verito V, WATER TAXI DRIVER Other assisted (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 from Last [...] History Date Comments Anorexia nervosa (CMS/[facility] V28) 11/16/2007 D X:Anorexia nervosa Asthma DX:Asthma [...] Depression Screening 08/24/2024 COVID-19 Vaccine ( - 2024-2 6 season) 2025 Influenza Vaccine (#1) 2025 Cholesterol [...] LEVEL Routine 05/10/2025 7:00 AM EDT Other exterminator helper (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 GLUCOSE, RANDOM Routine 05/06/2025 7:00 AM EDT Other exterminator helper (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 LIPID PANEL WITH REFLEX TO DIRECT LDL Routine 05/06/2025 7:00 AM EDT Other assisted (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 HEMOGLOBIN A1C Routine 05/06/2025 7:00 AM EDT Other assisted (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 from Last 3 Months Results * (ABNORMAL) Dickinson level (05/10/2025 7:00 AM EDT) [facility] Dickinson Level 0.3(L) 0.6 - 1.2 mEq/L LAB CHEMISTRY METHOD 05/10/2025 11:59 AM EDT [facility] Blood Venous blood specimen / Unknown Venipuncture / Unknown 05/10/2025 7:00 AM EDT 05/10/2025 10:59 AM EDT us Verito Gant NP LAB BLOOD ORDERABLES Final Re sult [facility]) [facility] [address] [place] [address], [place] [phone] * (ABNORMAL) Lipid panel with reflex to direct LDL (05/06/2025 7:00 AM EDT) Cholesterol 198 0 - 200 mg/dL LAB CHEMISTRY METHOD 05/06/2025 12:32 PM EDT [facility] Triglycerides 160(H) 0 - 150 mg/dL LAB CHEMISTRY METHOD 05/06/2025 12:32 PM [facility] HDL 79 >=40 mg/dL LAB [facility] LDL Calculated 87 0 - 100 mg/dL LAB CHEMISTRY METHOD 05/06/2025 12:32 PM EDT [facility] Comment:Estimated LDL Calcul ated using equation: Total cholesterol - HDL cholesterol - (Triglycerides/5) VLDL Cholesterol Rahul 32 mg/dL LAB CHEMISTRY METHOD 05/06/2025 12:32 PM [facility] Non HDL Chol. (LDL+VLDL) 119 <145 mg/dL LAB CHEMISTRY METHOD 05/06/2025 12:32 PM [facility] Chol/HDL Ratio 2.5 0.0 - 4.4 LAB CHEMISTRY METHOD 05/06/2025 12:32 PM T [facility] Blood Venous blood specimen / Unknown Venipuncture / Unknown 05/06/2025 7:00 AM EDT 05/06/2025 11:14 AM EDT us Verito Almanza V, WATER TAXI DRIVER LAB BLOOD ORDERABLES Final Re sult [facility] [address] [place] [address], * Hemoglobin A1c (05/06/2025 7:00 AM EDT) Pathologist [facility] Hemoglobin A1C 5.2 <6.5 % LAB CHEMISTRY METHOD 05/08/2025 10:46 AM EDT [facility] Mean Bld Glu Estim. 103 mg/dL LAB CHEMISTRY METHOD 05/08/2025 10:46 AM EDT [facility] Blood Venous blood specimen / Unknown Venipuncture / Unknown 05/06/2025 7:00 AM EDT 05/06/2025 11:14 AM EDT Verito Gant NP LAB BLOOD ORDERABLES Final Re sult Performing Organization Address [facility]/ZIP Co de Phone Number [facility] [address] [place] [address], [place] [phone] * (ABNORMAL) Glucose, random (05/06/2025 7:00 AM EDT) Glucose 116(H) 70 - 100 mg/dL LAB CHEMISTRY METHOD 05/06/2025 12:32 PM EDT [facility] Blood Venous blood specimen / Unknown Venipuncture / Unknown 05/06/2025 7:00 AM EDT 05/06/2025 11:14 AM EDT Verito Gant NP LAB BLOOD ORDERABLES Final Re sult Performing Organization Address [facility] de Phone Number [facility] [address] [place] [address], [place] [phone] from Last 3 Months Care Teams Bottle Feeder Relationship Specialty Start Date End Date Verito Almanza NP [address] [place] [phone] PCP - General Psychiatry 05/10/25
--- OUTSIDE RECORDS SUMMARY | 2025-07-13 21:03 | XMS_ITS | Encounter Summary ---
Author Organization [facility] Address [address] [place] [address] Care Team Providers Care Anchorman Name Role Phone Cami Gant NP, Verito Primary Care Provider [phone] Encounter Details Date Type Department Care Team (Late st Contact Info) Description 08/03/2024 Lab Requisition [facility] Lab [address] [facility] [place] [address] Shavonne Zavaleta NP [address] [place] [phone] Other adjunct faculty for medical terminology (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 Social History Tobacco Use [...] LDL Routine 08/03/2024 7:00 AM EST Other adjunct faculty for medical terminology (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 HEMOGLOBIN A1C Routine 08/03/2024 7:00 AM EST Other senior living (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 LITHIUM LEVEL Routine 08/03/2024 7:00 AM EST Other senior living (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 documented in this encounter Results * (ABNORMAL) [place] level (08/03/2024 7:00 AM EST) [place] Level 0.5(L) 0.6 - 1.2 mEq/L LAB CHEMISTRY METHOD 08/03/2024 1:31 PM EST [facility] Blood Venous blood specimen / Unknown Venipuncture / Unknown 08/03/2024 7:00 AM EST 08/03/2024 12:08 PM EST Shavonne Zavaleta PRINCIPAL ACCOUNT CLERK LAB BLOOD ORDERABLES Fi nal Result [facility] [address] [place] [address], [place] [phone] * (ABNORMAL) Lipid panel with reflex to direct LDL (08/03/2024 7:00 AM EST) Cholesterol 201(H) 0 - 200 mg/dL LAB CHEMISTRY METHOD 08/03/2024 1:28 PM [facility] Triglycerides 185(H) 0 - 150 mg/dL LAB CHEMISTRY METHOD 08/03/2024 1:28 PM [facility] HDL 87 >=40 mg/dL LAB [...] 12:08 PM EST us Shavonne Eleojo Abimaje PRINCIPAL ACCOUNT CLERK LAB BLOOD ORDERABLES Fi nal Result Performing Organization Address City/[facility]/ZIP Co de Phone Number [facility] [address] [place] [address], [place] [phone] * Hemoglobin A1c (08/03/2024 7:00 AM EST) Hemoglobin A1C 4.7 <6.5 % LAB CHEMISTRY METHOD 08/03/2024 1:35 PM EST [facility] Mean Bld Glu Estim. 88 mg/dL LAB CHEMISTRY METHOD 08/03/2024 1:35 PM EST [facility] Blood Venous blood specimen / Unknown Venipuncture / Unknown 08/03/2024 7:00 AM EST 08/03/2024 11:51 AM EST Shavonne Eleochang Abimaje PRINCIPAL ACCOUNT CLERK LAB BLOOD ORDERABLES Fi nal Result Performing Organization Address City/[facility]/ZIP Co de Phone Number [facility] [address] [place] [address], [place] [phone] documented in this encounter Visit Diagnoses Diagnosis Other adjunct faculty for medical terminology (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 documented in this encounter Care Teams Anchorman Relationship Specialty Start Date End Date Verito Almanza NP [address] [place] [phone] PCP - General Psychiatry 05/10/25 documented as of this encounter
--- OUTSIDE RECORDS SUMMARY | 2025-07-13 21:03 | XMS_ITS | Clinical Summary ---
Author Organization [facility] Address [address] [place] [phone] Phone Care Team Providers Care Laundry Press Operator Name Role Phone Cassia Alanis Primary Care Provider [phone] Allergies Active Allergy Reactions Criticality Noted Date [...] patient's age to complete this topic IPV VACCINES Aged Out No longer eligi ble based on patient's age to complete this topic MENINGOCOCCAL VACCINES (ACWY) Aged Out No longer eligible based on patient's age to complete this topic MENINGOCOCCAL VACCINES (B) Aged Out N o longer eligible based on patient's age to complete this topic Medical Devices Not on file Insurance [employer] MEDICARE PART A & B [place] PART A & [place] [address] [place] [address] MEDICARE PART A & B Care Teams Laundry Press Operator Relationship Specialty Start Date End Date Cassia Alanis DO [address] [place] [id number] [email or web address] PCP - General Family Medicine 09/01/23 Additional Source Comments The information contained in this document represents components of the legal health record. It is not the complete legal health record.[facility]
--- OUTSIDE RECORDS SUMMARY | 2025-07-13 21:03 | XMS_ITS | Encounter Summary ---
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 It is not the complete legal health record.[facility]
--- OUTSIDE RECORDS SUMMARY | 2025-07-13 21:03 | XMS_ITS | Encounter Summary ---
Author Organization [facility] Address [address] [place] [address] Care Team Providers Care Milk Pickup Driver Name Role Phone Cami Gant NP, Verito Primary Care Provider [phone] Encounter Details Date Type Department Care Team (Late st Contact Info) Description 05/10/2025 Lab Requisition [facility] - Main Lab [address] [facility] [place] [address] Verito Almanza NP [address] [place] [address] Social History Tobacco Use Types [...] on filedocumented in this encounter Care Teams Milk Pickup Driver Relationship Specialty Start Date End Date Verito Almanza NP [address] [place] [address] PCP - General Psychiatry 05/10/25 documented as of this encounter
--- OUTSIDE RECORDS SUMMARY | 2025-07-13 21:03 | XMS_ITS | Encounter Summary ---
Author Organization [facility] Address [address] [place] [address] Care Team Providers Care Hat And Cap Drying Room Attendant Name Role Phone Cami Gant NP, Verito Primary Care Provider [phone] Encounter Details Date Type Department Care Team (Late st Contact Info) Description 05/06/2025 Lab Requisition [facility] - Main Lab [address] [facility] [place] [phone] Verito Almanza NP [address] [place] [address] Other underwear welter (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 Social History Tobacco Use [...] LDL Routine 05/06/2025 7:00 AM EDT Other alf (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 HEMOGLOBIN A1C Routine 05/06/2025 7:00 AM EDT Other alf (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 GLUCOSE, RANDOM Routine 05/06/2025 7:00 AM EDT Other underwear welter (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 documented in this encounter Results * (ABNORMAL) Glucose, random (05/06/2025 7:00 AM EDT) Glucose 116(H) 70 - 100 mg/dL LAB CHEMISTRY METHOD 05/06/2025 12:32 PM EDT [facility] Blood Venous blood specimen / Unknown Venipuncture / Unknown 05/06/2025 7:00 AM EDT 05/06/2025 11:14 AM EDT us Verito Almanza V HYDRAULIC GOVERNOR ASSEMBLER LAB BLOOD ORDERABLES Final Re sult [facility] [address] [place] [address], [place] [phone] * (ABNORMAL) Lipid panel with reflex to direct LDL (05/06/2025 7:00 AM EDT) Cholesterol 198 0 - 200 mg/dL LAB CHEMISTRY METHOD 05/06/2025 12:32 PM [facility] Triglycerides 160(H) 0 - 150 mg/dL LAB CHEMISTRY METHOD 05/06/2025 12:32 PM [facility] HDL 79 >=40 mg/dL LAB CHEMISTRY METHOD 05/06/2025 12:32 PM T [facility] LDL Calculated 87 0 - 100 mg/dL LAB CHEMISTRY METHOD 05/06/2025 12:32 PM [facility] Comment:Estimated LDL Calcul ated using equation: Total cholesterol - HDL cholesterol - (Triglycerides/5) VLDL Cholesterol Rahul 32 mg/dL LAB CHEMISTRY METHOD 05/06/2025 12:32 PM T [facility] Non HDL Chol. (LDL+VLDL) 119 <145 mg/dL LAB CHEMISTRY METHOD 05/06/2025 12:32 PM [facility] Chol/HDL Ratio 2.5 0.0 - 4.4 LAB CHEMISTRY METHOD 05/06/2025 12:32 PM [facility] Blood Venous blood specimen / Unknown Venipuncture / Unknown 05/06/2025 7:00 AM EDT 05/06/2025 11:14 AM EDT Verito Gant NP LAB BLOOD ORDERABLES Final Re sult Performing Organization Address [facility] Co de Phone Number [facility] [address] [place] [address], [place] [phone] * Hemoglobin A1c (05/06/2025 7:00 AM EDT) Pathologist [facility] Hemoglobin A1C 5.2 <6.5 % LAB CHEMISTRY METHOD 05/08/2025 10:46 AM EDT [facility] Mean Bld Glu Estim. 103 mg/dL LAB CHEMISTRY METHOD 05/08/2025 10:46 AM EDT [facility] Blood Venous blood specimen / Unknown Venipuncture / Unknown 05/06/2025 7:00 AM EDT 05/06/2025 11:14 AM EDT Verito Gant NP LAB BLOOD ORDERABLES Final Re sult Performing Organization Address [facility]/ZIP Co de Phone Number [facility] [address] [place] [address], [place] [phone] documented in this encounter Visit Diagnoses Diagnosis Other underwear welter (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 documented in this encounter Care Teams Hat And Cap Drying Room Attendant Relationship Specialty Start Date End Date Verito Almanza NP [address] [place] [phone] PCP - General Psychiatry 05/10/25 documented as of this encounter
--- OUTSIDE RECORDS SUMMARY | 2025-07-13 21:03 | XMS_ITS | Encounter Summary ---
Author Organization [facility] Address [address] [place] [address] Care Team Providers Care Ludlow Machine Operator Name Role Phone Cami Gant NP, Verito Primary Care Provider Encounter Details Date Type Department Care Team (Late st Contact Info) Description 05/10/2025 Lab Requisition [facility] - Main Lab [address] [facility] [place] [address] Verito Almanza NP [address] [place] [address] Other terminal gauger (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 Social History Tobacco Use [...] documented in this encounter Results * (ABNORMAL) Maxeys level (05/10/2025 7:00 AM EDT) Maxeys Level 0.3(L) 0.6 - 1.2 mEq/L LAB CHEMISTRY METHOD 05/10/2025 11:59 AM EDT [facility] Blood Venous blood specimen / Unknown Venipuncture / Unknown 05/10/2025 7:00 AM EDT 05/10/2025 10:59 AM EDT Verito Gant NP LAB BLOOD ORDERABLES Final Re sult [facility] [address] [place] [address], documented in this encounter Visit Diagnoses Diagnosis Other terminal gauger (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 documented in this encounter Care Teams Ludlow Machine Operator Relationship Specialty Start Date End Date Verito Almanza NP [address] [place] [phone] PCP - General Psychiatry 05/10/25 documented as of this encounter
--- OUTSIDE RECORDS SUMMARY | 2025-07-13 21:03 | XMS_ITS | Encounter Summary ---
Author Organization [facility] Address [address] [place] [address] Phone Care Team Providers Care Transfer And Line Up Worker Name Role Phone Thuan Zarate MD Primary Care Provider [phone] Cassia Alanis DO Primary Care Provider [phone] Encounter Details Date Type Department Care Team (Latest Contact Info) Description 10/11/2020 Transcribe Orders Virtual Department [address] [place] [address] Brent Delgado MD [address] [place] [address] [email or web address] Encounter for laboratory testing for COVID-19 virus [...] documented as of this encounter Care Teams Transfer And Line Up Worker Relationship Specialty Start Date End Date Thuan Zarate MD [address] [facility] [address] [place] [address] [email or web address] PCP - General Family Medicine 10/11/20 08/31/23 Cassia Alanis DO [address] [place] [phone] [email or web address] PCP - General Family Medicine 09/01/23 documented as of this encounter Additional Source Comments The information contained in this document represents components of the legal health record. It is not the complete legal health record.[facility]
--- OUTSIDE RECORDS SUMMARY | 2025-07-13 21:03 | XMS_ITS | Encounter Summary ---
Author Organization [facility] Address [address] [place] [address] Care Team Providers Care Zmt Operator Name Role Phone Cami Gant NP, Verito Primary Care Provider [phone] Encounter Details Date Type Department Care Team (Late st Contact Info) Description 08/10/2024 Lab Requisition [facility] - Main Lab [address] [facility] [place] [address] Shavonne Zavaleta NP [address] [place] [address] Social History Tobacco Use Types [...] to direct LDL Lab Routine Ordered: 0[address] level Lab Routine Ordered: Hemoglobin A1c Lab Routine Ordered: 1 10/11/2023 documented as of this encounter Visit Diagnoses Not on filedocumented in this encounter Care Teams Zmt Operator Relationship Specialty Start Date End Date Verito Almanza NP [address] [place] [phone] PCP - General Psychiatry 05/10/25 documented as of this encounter
[2025-07-13] MEDS: iohexoL 350 MG/ML 100 ML INFUS..BTL 85 ML IV (22:42)
[2025-07-14 00:23] VITALS: BP 116/84; PULSE 74; RESP 16; TEMP 36.7; O2SAT 100
[2025-07-14 00:42] VITALS: BP 116/84; PULSE 74; RESP 16; TEMP 36.7; O2SAT 100
== END 2025-07-14 00:43 | disposition home or self-care (01) ==
PROVIDERS: Emergency Provider Emergency Medicine; PCP Nurse Practitioner Family
DX: K52.9 Noninfective gastroenteritis and colitis, unspecified (principal); R63.0 Anorexia; R11.2 Nausea with vomiting, unspecified; R10.8A2 Left flank tenderness; R10.8A1 Right flank tenderness; R91.8 Other nonspecific abnormal finding of lung field; R10.22 Pelvic and perineal pain left side; Q79.60 Ehlers-Danlos syndrome, unspecified; R94.31 Abnormal electrocardiogram [ECG] [EKG]; Z95.0 Presence of cardiac pacemaker; Z79.899 Other long term (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; Z51.81 Encounter for therapeutic drug level monitoring; F17.210 Nicotine dependence, cigarettes, uncomplicated
CPT/HCPCS: 36415; 74177; 80053; 80143; 80179; 80307; 81003; 83690; 84702; 85025; 93005; 99284; Q9967

== ENCOUNTER → 2025-07-13 18:28 | Outpatient (BNV) | payer MEDICARE, MEDICAID, SELFPAY | PROVIDERS: Emergency Provider Emergency Medicine; PCP Nurse Practitioner Family; Visit Provider Internal Medicine | DX: R42 Dizziness and giddiness (principal) | CPT/HCPCS: 93010 ==

== ENCOUNTER → 2025-07-13 21:59 | Outpatient (BNV) | payer MEDICARE, MEDICAID, SELFPAY | PROVIDERS: Emergency Provider Emergency Medicine; PCP Nurse Practitioner Family; Visit Provider Student in an Organized Health Care Education/Training Program | DX: R10.31 Right lower quadrant pain (principal); R10.32 Left lower quadrant pain; R11.2 Nausea with vomiting, unspecified; R19.7 Diarrhea, unspecified | CPT/HCPCS: 74177 ==

== ENCOUNTER 2025-07-28 15:20 | Outpatient (AMB) | payer MEDICARE, MEDICAID, SELFPAY ==
--- NOTE | 2025-07-28 15:25 | MHC.PC.OV ---
Vital Signs 07/28/25 15:31 Height 5 ft Weight 90 lb BMI 17.6 BP 89/53 L Blood Pressure Location Rt brachial Position Sitting Respiration 16 Pulse 67 Pulse Source Pulse Oximeter Temp 97.7 F Temp Source Oral Pulse Oximetry (%) 99 Oxygen Delivery Method Room Air Intake Visit Reasons: 1 month fu Intake Note: patient here for 1 month follow up for MDD Control Panel Builder Required: No Is last menstrual period known: Yes Last menstrual period: 06/28/25 Post menopausal: No Patient : No Allergies azithromycin Allergy (Verified 07/28/25 15:42) Itching levofloxacin (From Levaquin) Allergy (Verified 07/28/25 15:42) Nightmare nitrofurantoin (From Macrodantin) Allergy (Verified 07/28/25 15:42) Itching Medication List - Last Reconciled 07/28/25 by Debi Machado CNP acetaminophen 975 mg PO Q8H PRN hydroxyzine pamoate 50 mg PO Q8H PRN lithium carbonate ER 600 mg (2 x 300 mg) PO BEDTIME 7 days ondansetron 4 mg PO Q8H PRN oxcarbazepine 300 mg PO Q12H 30 days quetiapine TAKE 1 TABLET BY MOUTH AT BEDTIME FOR DEPRESSIVE DISORDER FOR 7 DAYS tamsulosin 0.4 mg PO BEDTIME trazodone 50 mg PO BEDTIME PRN Tobacco use date assessed: 07/28/25 Dental Screening Dental Screen Date: 07/28/25 Did you have a dental visit in the last 12 months?: Yes Did you have a dental problem in the last 6 months where you did not have access to dental care?: No Was dental information given to patient?: Patient has dentist HPI HPI Comments History of Present Illness Details 40-year-old female presents for ANIBAL and MDD follow-up. She notes that she ran out of Dufur and Seroquel last night and oxcarbazepine 3 days ago. She notes that [facility] sent the police to her home three time last month because she told them she was not eating. She was section 12 on the last police visit and was brought to [facility] ED where she was discharged. She notes that [facility] called her psychiatrist, Toni Alvarado, and cancelled her appointment. She reports a lot of anxiety and depressive symptoms which he attributes to the holidays. She notes that both her mother and father around this time of the year. She reports suicide ideation all the times. I just don't want to be here. I don't want to be in this world anymore. She notes that she has a plan but would not elaborate because i don't wanna go to the hospital. COUNT INCLUDES THE [facility] Medical History (Updated 07/15/25 @ 00:01 by Mikaela Mcintyre) Suicide attempt Overdose by ingestion Borderline personality disorder Anorexia Left wrist injury Scoliosis Swelling Osteoporosis Arthritis Asthma Mood disorder Indwelling Joseph catheter present MDD (major depressive disorder), recurrent severe, without psychosis Sacral nerve stimulator present Rectocele Juvenile osteoporosis Compression fx, lumbar spine History of wrist fracture Myofascial pain syndrome Benzodiazepine dependence Anxiety and depression Surgical History History of vaginal surgery History of bladder surgery H/O wrist surgery History of left knee surgery History of right knee surgery History of brain surgery History of placement of ear tubes H/O cystoscopy Family History Mother High blood pressure Cardiovascular disease Father Prostate cancer Social History Household Members: Family Household Members Other:: 1 Housing: House Are you a primary adult day care worker to a significant other at home: No Do you presently have visiting nurse or other home services: No Alcohol intake: former Comment: 1:1 sitter Patient Tobacco Use Status: Current everyday Tobacco user Tobacco use type: Cigarette Cigarette Packs Per Day: 1 Cigarettes Per Day: 20.0 Years Smoked: 25 e-Cigarette/Vaping Use: Currently Using Second Hand Smoke Exposure: No Substance Use Type: Opiates Advance Directives Date on File: 07/29/24 service: No Current occupational status: disabled Current occupational exposures/hazards: No Sexual orientation: Straight/Heterosexual Cognitive needs: No Hearing needs: No Vision needs: No Female Reproductive History Menstrual Date of last menstrual period: 06/28/25 Questionnaire PHQ-9 Over the last 2 weeks, how often have you been bothered by any of the following problems? 1. Little interest or pleasure in doing things: nearly every day 2. Feeling down, depressed, or hopeless: nearly every day 3. Trouble falling or staying asleep, or sleeping too much: nearly every day 4. Feeling tired or having little energy: nearly every day 5. Poor appetite or overeating: nearly every day 6. Feeling bad about yourself - or that you are a failure or have let yourself or your family down: nearly every day 7. Trouble concentrating on things, such as reading the newspaper or watching television: nearly every day 8. Moving or speaking so slowly that other people could have noticed. Or the opposite - being so fidgety or restless that you have been moving around a lot more than usual: nearly every day 9. Thoughts that you would be better off or of hurting yourself in some way: nearly every day Total score: 27 Depression Screening Interpretation: Positive Depression Screening Follow-up: Existing condition and In treatment Depression Screening Done: Yes 85182 - PHQ-9 Billing: Yes Source: Developed by Drs. Myles Mccoy, Annalisa Holguin, Jaime Villasenor and colleagues, with an educational iqra from [employer]. Thrive Questionnaire Date Thrive assessed: 09/09/24 I am a: Patient What is your living situation today?: I do not have a steady places to live I choose not to answer this question Within the past 12 months, did the food you bought not last and you didn't have the money to get more?: Never true Within the past 12 months, did you worry whether your food would run out before you got money to buy more?: Never true Do you have trouble paying for medicines?: No Do you have trouble getting transportation to medical appointments?: No Do you have trouble paying your heating and electricity bill?: No Do you have trouble taking care of your child, family member or friend?: No Do you have trouble with day-to-day activities such as bathing, preparing meals, shopping, managing finances, etc.?: No Are you currently unemployed and looking for a job?: No Are you interested in more education?: Yes Please select the resources that you would like help with: Housing/Long Term Currently or been in a relationship where the following occur: I choose not to answer THRIVE Score: 1 ANIBAL-7 AMB Questionnaire ANIBAL-7 Date ANIBAL - 7 assessed: 07/28/25 Feeling nervous, anxious, or on edge: 3 = Nearly every day Not being able to stop or control worryin = Nearly every day Worrying too much about different things: 3 = Nearly every day Trouble relaxin = Nearly every day Being so restless that it is hard to sit still: 3 = Nearly every day Becoming easily annoyed or irritable: 3 = Nearly every day Feeling afraid as if something awful might happen: 3 = Nearly every day Total ANIBAL-7 score (0-4 normal; 5-9 mild; 10-14 moderate; 15-21 severe): 21 Source: Developed by Drs. Myles Mccoy, Annalisa Holguin, Jaime Villasenor and colleagues, with an educational iqra from [employer]. ANIBAL-7 Assessment Billing ANIBAL-7 Assessment Tool: ANIBAL-7 Assessment 87568 Review of Systems Const Details: Const Denies chills, Denies fatigue, Denies fever(s), Denies headache(s) and Denies weakness ENT Denies dizziness and Denies headache(s) Card Denies chest pain, Denies lightheadedness, Denies dyspnea and Denies other (Palpitations) Resp Denies cough, Denies dyspnea, Denies wheezing and Denies other ( shortness of breath) GI Denies abdominal pain, Denies melena, Denies hematochezia, Denies change in bowel habits, Denies dyspepsia and Denies nausea Denies hematuria and Denies dysuria Musc Denies abnormal gait, Denies myalgias, Denies arthralgias, Denies numbness and Denies tingling Skin/Breast Denies rash, Denies unusual bruising and Denies wounds Neuro Denies abnormal gait, Denies dizziness, Denies headache(s), Denies memory loss, Denies numbness, Denies Sensory deficit (Neuro), Denies tingling and Denies weakness Psych Reports anxiety, Reports depression, Denies memory loss Endo Denies cold intolerance, Denies fatigue, Denies heat intolerance, Denies polydipsia and Denies polyuria Aller/Immun Denies wheezing Physical exam (Primary Care) Vital Signs: Last Vital Signs Temp 97.7 F 07/28/25 15:31 Pulse 67 07/28/25 15:31 Resp 16 07/28/25 15:31 BP 89/53 L 07/28/25 15:31 Pulse Ox 99 07/28/25 15:31 Oxygen Delivery Method Room Air 07/28/25 15:31 BMI result Body Mass Index 17.6 Tobacco/Smoking Status: Tobacco use Status Tobacco use date assessed 07/28/25 07/28/25 15:35 Patient Tobacco Use Status Current everyday Tobacco 07/28/25 15:25 Tobacco use type Cigarette 07/28/25 15:25 e-Cigarette/Vaping Use Currently Using 07/28/25 15:25 PHQ-9: PHQ-9 Score PHQ-9: Total score 27 08/01/25 07:08 Depression Screening Interpretation: Positive Depression Screening Follow-up: Existing condition and In treatment Thrive Assessment: Date of Thrive Assessment Date Thrive assessed 09/09/24 07/28/25 15:25 Currently or been in a relationship where the following occur: I choose not to answer Const Other: General: no acute distress and well developed Nutritional Appearance: well nourished Orientation/consciousness: patient oriented x3 HENMT Head: Yes normocephalic and Yes atraumatic Eyes General: appearance normal, both eyes and all related structures Pupils: Equal, round and reactive pupils present EOM: EOMs intact bilaterally Resp Effort & Inspection: normal respiratory effort Auscultation: clear to auscultation bilaterally Cardio Rate: regular rate Rhythm: regular rhythm Heart sounds: S1 normal heart sound present, S2 normal heart sound present, no gallops, no murmurs and no rubs Extrem General: Yes normal to inspection, No edema and No calf tenderness Skin General: warm and dry. Normal skin color. Normal skin turgor Neuro General: patient oriented x3, gait normal and no focal neuro deficit Cranial nerves: Yes Equal, round and reactive pupils present Cognition (Neuro): normal cognition Gait exam (Neuro): Normal gait present Sensory Exam: No Sensory deficit (Neuro) Psych Appearance: grossly normal Mood: Depressed Affect: Flat Attitude: cooperative Thought process: Active SI, would not elaborate AVH: Denies Coding Level of Care Code Est Pt Level 4 (99154) Diagnoses MDD (major depressive disorder), recurrent severe, without psychosis F33.2 ANIBAL (generalized anxiety disorder) F41.1 Additional Codes ANIBAL-7 Assessment Billing - ANIBAL-7 Assessment Tool: ANIBAL-7 Assessment 00102 ([id number]) PHQ-9 - 69617 - PHQ-9 Billing: Yes ([id number]) Assessment & Plan Assessment & Plan (1) MDD (major depressive disorder), recurrent severe, without psychosis: Code(s): F33.2 - Major depressive disorder, recurrent severe without psychotic features Category: Medical Plan: Patient reports a lot of anxiety and depressive symptoms which he attributes to the holidays. She notes that both her mother and father around this time of the year. She reports suicide ideation all the times. I just don't want to be here. I don't want to be in this world anymore. She notes that she has a plan but would not elaborate because i don't wanna go to the hospital. Patient currently in danger to herself due to SI with a plan. CHW unable to get in contact with crisis, therefore, EMS activated. Patient voluntarily agrees to go to the ED for further evaluation. She was brought to [facility] ED. (2) ANIBAL (generalized anxiety disorder): Code(s): F41.1 - Generalized anxiety disorder Category: Medical Plan: Plan as above.
[2025-07-28 15:31] VITALS: BP 89/53; PULSE 67; RESP 16; TEMP 36.5; O2SAT 99; BMI 17.6
--- OUTSIDE RECORDS SUMMARY | 2025-07-28 19:19 | XMS_ITS | Clinical Summary ---
Author Organization [facility] Address [address] [place] [address] Phone Care Team Providers Care Switchboard Clerk Name Role Phone Cassia Alanis Primary Care [...] topic Medical Devices Not on file Insurance [employer] MEDICARE PART A & B [place] & B Member Subscriber Plan / Payer ( fective 2022-Present) Name:Joselin Gonzales Member ID:[id number] Relation to Subscriber:Self Name:Joselin Gonzales Subscriber ID:[id number] Payer ID:[id number] Group ID:Not on file Type:Medicare Address: [employer] [id number] [facility] MEDICARE PART A & B Care Teams Switchboard Clerk Relationship Specialty Start Date End Date Cassia Alanis DO [address] [place] [phone] [email or web address] PCP - General Family Medicine 09/01/23 Additional Source Comments The information contained in this document represents components of the legal health record. It is not the complete legal health record.[facility]
--- OUTSIDE RECORDS SUMMARY | 2025-07-28 19:19 | XMS_ITS | Encounter Summary ---
Author Organization [facility] Address [address] [place] [address] Phone Care Team Providers Care Floor Polisher Name Role Phone Thuan Zarate MD Primary Care Provider [phone] Cassia Alanis DO Primary Care Provider [phone] Encounter Details Date Type Department Care Team (Latest Contact Info) Description 10/11/2020 Transcribe Orders Virtual Department [address] [place] [id number] Brent Delgado MD [address] [place] [phone] [email or web address] Encounter [...] documented as of this encounter Care Teams Floor Polisher Relationship Specialty Start Date End Date Thuan Zarate MD [address] [facility] [address] [place] [address] [email or web address] PCP - General Family Medicine 10/11/20 08/31/23 Cassia Alanis DO [address] [place] [phone] [email or web address] PCP - General Family Medicine 09/01/23 documented as of this encounter Additional Source Comments The information contained in this document represents components of the legal health record. It is not the complete legal health record.[facility]
--- OUTSIDE RECORDS SUMMARY | 2025-07-28 19:19 | XMS_ITS | Encounter Summary ---
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 It is not the complete legal health record.[facility]
== END 2025-07-28 17:05 | disposition home or self-care (01) ==
LOC: HO.HMCFM 15:21
PROVIDERS: PCP Nurse Practitioner Family; Visit Provider Nurse Practitioner Family
DX: F33.2 Major depressive disorder, recurrent severe without psychotic features (principal); F41.1 Generalized anxiety disorder

== ENCOUNTER → 2025-07-28 15:20 | Outpatient (BNVA) | payer MEDICARE, MEDICAID, SELFPAY | PROVIDERS: PCP Nurse Practitioner Family; Visit Provider Nurse Practitioner Family | DX: F33.2 Major depressive disorder, recurrent severe without psychotic features (principal); F41.1 Generalized anxiety disorder; Z13.31 Encounter for screening for depression; Z13.39 Encounter for screening examination for other mental health and behavioral disorders | CPT/HCPCS: 96127; 99212 ==